=== PATIENT | female | born 1950 | race Caucasian/White ===

== ENCOUNTER → 2016-07-26 | Outpatient (CLI) | payer BC, MEDICARE ==
[~2016-07-26] MED LIST: ACET650T11 PO; ACET650T52 PO; BACL10TA PO; DIAZ-345 PO; DIAZ5TAB3 PO; Diazepam PO; ENAL20TA PO; HYDR-2890 PO; HYDR-3720 PO; HYDR-3816 PO; OXC20TCR PO; OXYC1TAB12 PO; SENN1TAB76 PO; SULF-222 PO
--- NOTE | 2016-07-26 12:12 | Diagnostic Imaging Report ---
PROCEDURE: MRI pelvis without contrast. TECHNIQUE: Multiplanar, multisequence MRI of the pelvis was performed without contrast. INDICATION: Chronic back pain. Bilateral hip pain. FINDINGS: There is signal abnormality seen around the upper aspect of the sacrum that appears to be artifactual secondary to susceptibility artifact from the lower lumbar spine posterior fusion metallic hardware. The lower aspect of the right SI joint demonstrates subchondral edema which could be degenerative or inflammatory. No insufficiency fracture is seen or mass. The marrow signal elsewhere in the pelvis appears unremarkable. No avascular necrosis or stress fractures. The hip joints demonstrate minimal effusion bilaterally. Mild edema along the anterior lateral aspect of the labrum is seen probably degenerative. The muscle bulk and signal around the pelvis appear unremarkable. There is normal signal in the origin of the hamstring muscles and the iliopsoas tendon insertion bilaterally. No evidence of iliopsoas or greater trochanteric bursitis. No significant free fluid or fluid collection in the abdomen and pelvis is seen. No soft tissue mass. Cystic foci in the cervix are likely related to nabothian cysts. The urinary bladder appears unremarkable. IMPRESSION: Relatively mild arthritic changes at the hip joints and the right SI joints. Dictated by: Dictated on workstation # [id number]
== END ==
LOC: RAD 09:15
PROVIDERS: ATTEND Family Medicine
DX: M16.0 Bilateral primary osteoarthritis of hip (principal)
CPT/HCPCS: 72195

== ENCOUNTER 2019-09-17 15:30 | Emergency (ER) | payer MEDICARE ==
[~2019-09-17] VITALS: Ht 162.5 cm; Wt 71.7 kg
--- NOTE | 2019-09-17 15:59 | ED General ---
General Chief Complaint: General Problems/Pain Stated Complaint: KIDNEY FAILURE Source of Information: Patient (CONNOR BARBER DO) History of Present Illness Date Seen by Provider: Sep 17, 2019 Time Seen by Provider: 15:35 Initial Comments PT ARRIVES VIA POV FROM HOME, NEEDS WHEELCHAIR AND ASSIST OUT OF THE VEHICLE PT STATES "I'M LETHARGIC" THIS IS A CHRONIC PROBLEM FOR AT LEAST A YEAR--STATES IT STARTED WHILE DR. SMALL WAS STILL IN PRACTICE AND HE RETIRED A YEAR AGO HAS BEEN SEEING LULA EDUARDO AT [facility] SINCE DR. SMALL RETIRED--HAS BEEN SEEING HIM SINCE MARCH OR APRIL STATES SHE HAS TROUBLE WITH BALANCE AND GENERALIZED WEAKNESS. AND HAD 6 WEEKS OF PHYSICAL THERAPY--GETTING WORSE STATES SHE SAW HIM YESTERDAY FOR ROUTINE FOLLOW UP AND HAD LAB DRAWN. STATES THEY CALLED HER TODAY AND TOLD HER TO COME HERE BECAUSE MY POTASSIUM AND RENAL FAILURE" --NO CALL TO ER FROM [facility] NONE OF HER SYMPTOMS ARE DIFFERENT TODAY IN ANY WAY, BUT STATES SHE JUST KEEPS GETTING WORSE, ESPECIALLY FOR THE LAST 2-3 MONTHS. PT HAS CHRONIC NAUSEA, BUT IS NOT NAUSEATED NOW. STATES HER ABDOMEN "IS ALWAYS TENDER" PT STATES SHE ALWAYS HAS "A LITTLE DIARRHEA" --HAD A "TRICKLE" OF DIARRHEA THIS MORNING NO FEVER NO COUGH NO CHEST PAIN STATES SHE IS ALWAYS SHORT OF BREATH, AND IS NO DIFFERENT TODAY HAS CHRONIC SINUS DRAINAGE AND IS NO DIFFERENT THAN NORMAL STATES SHE HAS HAD DECREASED TASTE FOR THE LAST COUPLE OF WEEKS STATES SHE IS VOIDING A NORMAL AMOUNT AND VOIDED JUST PRIOR TO ARRIVAL, AND NO PAIN ON URINATION. HAS BEEN EATING AND DRINKING BUT "NOT MUCH" --STATES "I'M TOO WEAK TO STAND AND GO GET ANYTHING" NO PARESTHESIAS OR MOTOR DEFICITS NO KNOWN SICK CONTACTS OR EXPOSURE TO COVID-19 PCP: [facility], LULA EDUARDO (CONNOR BARBER ) Allergies and Home Medications Allergies Coded Allergies: No Known Drug Allergies (Unverified , 12/11/13) Home Medications Acetaminophen 650 Mg Tablet, 1,300 MG PO AC, (Reported) TAKE 2 (650MG) TABS Acetaminophen 650 Mg Tablet, 2,600 MG PO HS, (Reported) TAKES 4 (650MG) TABLET Baclofen 10 Mg Tablet, 10 MG PO Q8H PRN for MUSCLE SPASMS, (Reported) Diazepam 5 Mg Tablet, 5 MG PO Q8H PRN for SPASMS, (Reported) Enalapril Maleate 20 Mg Tablet, 20 MG PO DAILY, (Reported) Hydrocodone Bit/Acetaminophen 1 Each Tablet, 1-2 TAB PO Q4H PRN for PAIN, (Reported) Senna 1 Ea Tablet, 1 EA PO DAILY Prescribed by: MOI SMALL on 07/08/14731 Trimethoprim/Sulfamethoxazole 1 Ea Tablet, 1 EA PO BID WITH MEALS Prescribed by: MOI SMALL on 07/08/14731 Patient Home Medication List Home Medication List Reviewed: Yes (JOHNNIE GRAHAM) Review of Systems Review of Systems Constitutional: see HPI; No chills, No diaphoresis, No dizziness, No fever; malaise, weakness EENTM: see HPI, other (CHRONIC SINUS DRAINAGE, AND DECREASED SENSE OF TASTE FOR A COUPLE OF WEEKS) Respiratory: see HPI; No cough; dyspnea on exertion (CHRONIC/UNCHANGED); No orthopnea, No phlegm; short of breath (CHRONIC/UNCHANGED); No wheezing Cardiovascular: no symptoms reported; No chest pain, No edema, No palpitations, No syncope, No vascular heart diseas Gastrointestinal: see HPI, abdominal pain, diarrhea, loss of appetite, nausea; No vomiting Genitourinary: see HPI; No decreased output, No dysuria, No pain Musculoskeletal: see HPI ("TROUBLE WITH BALANCE" ; CHRONIC NECK AND BACK PAIN --S/P C-SPINE & L-SPINE SURGERY) Skin: no symptoms reported Psychiatric/Neurological: No Symptoms Reported; Denies Headache, Denies Numbness, Denies Paresthesia, Denies Seizure, Denies Tingling, Denies Tremors Hematologic/Lymphatic: No Symptoms Reported Immunological/Allergic: no symptoms reported (CONNOR BARBER DO) Past Jzmfyzx-Kzowzt-Pzaomp Hx Past Med/Social Hx: Reviewed and Corrections made (CONNOR BARBER DO) Patient Social History Alcohol Use: Denies Use Recreational Drug Use: No Smoking Status: Former Smoker (< 1 PPD, QUIT 2007) Type Used: Cigarettes Recent Foreign Travel: No Contact w/Someone Who Travel: No (CONNOR BARBER DO) Immunizations Up To Date Tetanus Booster (TDap): Unknown PED Vaccines UTD: No (CONNOR BARBER DO) Seasonal Allergies Seasonal Allergies: Yes (CONNOR BARBER DO) Past Medical History Surgeries: Yes (SEE BELOW) Appendectomy, Breast, Orthopedic, Tonsillectomy Respiratory: Yes (CHRONIC DYSPNEA; FORMER SMOKER) Hypertension Neurological: No Reproductive Disorders: No 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 Genitourinary: Yes Bladder Infection Gastrointestinal: Yes (APPY; ) Musculoskeletal: Yes (C-SPINE AND L-SPINE SURGERIES;L KNEE SCOPE) Degenerate Disk Disease, Chronic Back Pain Endocrine: No HEENT: Yes (TONSILLECTOMY) Cataract, Tonsilitis Cancer: No Psychosocial: Yes Depression Integumentary: No Blood Disorders: No Adverse Reaction/Blood Tranf: No (CONNOR BARBER DO) Family Medical History BACK INJURY 19 MOTHER Cardiovascular disease 19 FATHER 19 MOTHER Chronic hepatitis Colon cancer G8 BROTHER Coronary thrombosis 19 FATHER 19 MOTHER Diabetes mellitus 19 MOTHER FH: lung cancer G8 BROTHER FH: lupus 19 FATHER Kidney disease 19 MOTHER (RENAL FAILURE ) Meningitis Myocardial infarction 19 FATHER 19 MOTHER PSH: -TONSILLECOMTY -APPENDECTOMY -1996--LEFT KNEE SCOPE -1997 BREAST AUGMENTATION + TUMMY TUCK/ABDOMINOPLASTY -2013--CERVICAL SPINE FUSION C3-C7 -2014--LUMBAR SPINE SURGERY/FUSION L3-L5 (CONNOR BARBER DO) Physical Exam Vital Signs Vital Signs - First Documented 09/17/19 15:32 Temp 36.6 Pulse 103 Resp 15 B/P (MAP) 125/73 (90) Pulse Ox 94 O2 Delivery Room Air (JOHNNIE GRAHAM) Vital Signs Capillary Refill : (CONNOR BARBER DO) Height, Weight, BMI Height: 5'7.00" Weight: 188lbs. 8.0oz. 85.561440rh; BMI Method: General Appearance: No Apparent Distress, WD/WN, Other (SOMEWHAT LETHARGIC, BUT TALKS AT GREAT LENGTH) HEENT: PERRL/EOMI, Pale Conjunctivae (L), Pale Conjunctivae (R) Neck: Normal Inspection Respiratory: Normal Breath Sounds, No Accessory Muscle Use, No Respiratory Distress Cardiovascular: Regular Rate, Rhythm, No Edema, No JVD, No Murmur, Normal Peripheral Pulses Gastrointestinal: Normal Bowel Sounds, No Organomegaly, No Pulsatile Mass, Non Tender, Soft Back: No CVA Tenderness Extremity: Normal Capillary Refill, Normal Range of Motion, Non Tender, No Calf Tenderness, No Pedal Edema Neurologic/Psychiatric: Alert, Oriented x3, No Motor/Sensory Deficits, feed manager II- XII Norm as Tested Skin: Warm/Dry, Pallor (YUAN,CONNOR K DO) Progress/Results/Core Measures Suspected Sepsis SIRS Temperature: Pulse: Respiratory Rate: Laboratory Tests 09/17/19 15:46: White Blood Count 10.8 Blood Pressure / Mean: Laboratory Tests 09/17/19 15:46: Creatinine 7.87H, INR Comment 1.3, Platelet Count 440H, Total Bilirubin 0.3 (YUANCONNOR K DO) Results/Orders Lab Results Laboratory Tests Test 09/17/19 15:46 09/17/19 15:50 09/17/19 17:00 Range/Units White Blood Count 10.8 4.3-11.0 10^3/uL Red Blood Count 3.43 L 4.35-5.85 10^6/uL Hemoglobin 10.3 L 11.5-16.0 G/DL Hematocrit 32 L 35-52 % Mean Corpuscular Volume 93 80-99 FL Mean Corpuscular Hemoglobin 30 25-34 PG Mean Corpuscular Hemoglobin Concent 32 32-36 G/DL Red Cell Distribution Width 12.9 10.0-14.5 % Platelet Count 440 H 130-400 10^3/uL Mean Platelet Volume 8.4 7.4-10.4 FL Neutrophils (%) (Auto) 79 H 42-75 % Lymphocytes (%) (Auto) 12 12-44 % Monocytes (%) (Auto) 8 0-12 % Eosinophils (%) (Auto) 1 0-10 % Basophils (%) (Auto) 0 0-10 % Neutrophils # (Auto) 8.6 H 1.8-7.8 X 10^3 Lymphocytes # (Auto) 1.3 1.0-4.0 X 10^3 Monocytes # (Auto) 0.9 0.0-1.0 X 10^3 Eosinophils # (Auto) 0.1 0.0-0.3 10^3/uL Basophils # (Auto) 0.0 0.0-0.1 10^3/uL Prothrombin Time 16.8 H 12.2-14.7 SEC INR Comment 1.3 0.8-1.4 Activated Partial Thromboplast Time 37 H 24-35 SEC Sodium Level 137 135-145 MMOL/L Potassium Level 6.1 H 3.6-5.0 MMOL/L Chloride Level 109 H 98-107 MMOL/L Carbon Dioxide Level 8 *L 21-32 MMOL/L Anion Gap 20 H 5-14 MMOL/L Blood Urea Nitrogen 107 *H 7-18 MG/DL Creatinine 7.87 H 0.60-1.30 MG/DL Estimat Glomerular Filtration Rate 5 BUN/Creatinine Ratio 14 Glucose Level 94 70-105 MG/DL Calcium Level 10.4 H 8.5-10.1 MG/DL Corrected Calcium 10.4 H 8.5-10.1 MG/DL Phosphorus Level 6.7 H 2.3-4.7 MG/DL Magnesium Level 2.4 1.6-2.4 MG/DL Total Bilirubin 0.3 0.1-1.0 MG/DL Aspartate Amino Transf (AST/SGOT) 16 5-34 U/L Alanine Aminotransferase (ALT/SGPT) 18 0-55 U/L Alkaline Phosphatase 157 H 40-136 U/L Total Protein 7.5 6.4-8.2 GM/DL Albumin 4.0 3.2-4.5 GM/DL TSH [place] Testing 3.08 0.35-4.94 UIU/ML Urine Color YELLOW Urine Clarity TURBID Urine pH 5.5 5-9 Urine Specific [place] 1.020 1.016-1.022 Urine Protein TRACE H NEGATIVE Urine Glucose (UA) NEGATIVE NEGATIVE Urine Ketones NEGATIVE NEGATIVE Urine Nitrite NEGATIVE NEGATIVE Urine Bilirubin NEGATIVE NEGATIVE Urine Urobilinogen 0.2 < = 1.0 MG/DL Urine Leukocyte Esterase TRACE H NEGATIVE Urine RBC (Auto) 1+ H NEGATIVE Urine RBC RARE /HPF Urine WBC RARE /HPF Urine Squamous Epithelial Cells 2-5 /HPF Urine Renal Epithelial Cells 2-5 /HPF Urine Crystals NONE /LPF Urine Amorphous Sediment MOD PAVAN URATES H /LPF Urine Bacteria TRACE /HPF Urine Casts NONE /LPF Urine Mucus NEGATIVE /LPF Urine Culture Indicated NO Blood Gas Puncture Site RR Blood Gas Patient Temperature 36.6 Arterial Blood pH 7.19 *L 7.37-7.43 Arterial Blood Partial Pressure CO2 30 L 35-45 MMHG Arterial Blood Partial Pressure O2 204 H 79-93 MMHG Arterial Blood HCO3 11 *L 23-27 MMOL/L Arterial Blood Total CO2 12.0 L 21.0-31.0 MMOL/L Arterial Blood Oxygen Saturation 99 94-100 % Arterial Blood Base Excess -15.6 L -2.5-2.5 MMOL/L Marv Test YES-POS Blood Gas Ventilator Setting NO Blood Gas Inspired Oxygen 8L (JOHNNIE GRAHAM) Medications Given in ED Current Medications Medications Dose Ordered Sig/Haritha Route Start Time Stop Time Status Last Admin Dose Admin Calcium Chloride 1 gm ONCE ONCE INJ 09/17/19 16:45 09/17/19 16:47 DC 09/17/19 17:11 1 GM Dextrose 50 ml ONCE ONCE IV 09/17/19 16:45 09/17/19 16:47 DC 09/17/19 16:55 50 ML Insulin Human Regular 10 unit ONCE ONCE IV 09/17/19 16:45 09/17/19 16:47 DC 09/17/19 16:55 10 UNIT Sodium Polystyrene Sulfonate 15 gm ONCE ONCE PO 09/17/19 16:45 09/17/19 16:47 DC 09/17/19 16:56 15 GM Sodium Bicarbonate 50 meq ONCE ONCE IV 09/17/19 17:45 09/17/19 17:46 DC 09/17/19 17:46 50 MEQ (JOHNNIE GRAHAM) Vital Signs/I&O 09/17/19 09/17/19 09/17/19 09/17/19 15:32 17:11 20:44 21:34 Temp 36.6 Pulse 103 108 98 Resp 15 18 16 B/P (MAP) 125/73 (90) 112/62 (79) 112/62 Pulse Ox 94 100 97 99 O2 Delivery Room Air Room Air Room Air Room Air (JOHNNIE GRAHAM) Vital Signs/I&O Capillary Refill : (CONNOR BARBER DO) Progress Note : Time: 18:00 Progress Note Assume care of the patient at shift change. Plan is transfer to [facility]. If she still here by 2044 we will repeat labs as it'll be 4 hours after our initial draw and interventions. (JOHNNIE GRAHAM) ECG Initial ECG Impression Date: Sep 17, 2019 Initial ECG Impression Time: 16:03 Initial ECG Rate: 91 Initial ECG Rhythm: Normal Sinus (CONNOR BARBER DO) Diagnostic Imaging Comments CXR--PER RADIOLOGIST REPORT AT 1715 MPRESSION: Mild chronic appearing increased interstitial markings. No acute consolidation or pleural fluid. Reviewed: Reviewed by Me (CONNOR BARBER DO) Departure Communication (Admissions) 1640--SPOKE WITH DR. GOEL AT [facility]. SHE ADVISES TO TRANSFER TO FACILITY WITH NEPHROLOGY/ DIALYSIS CAPABILITIES. SHE REPORTS THAT THE ONLY TIME SHE HAS HAD LAB DONE BEFORE YESTERDAY, WAS IN MAY AND CREATININE WAS 1.24 AT THAT TIME. 1644--CALLED CYNDIE, MESSAGE LEFT. 1648--CALLED CARROLL RAMIREZ. ON DIVERSION 1654--CYNDIE CALLED BACK. ON DIVERSION 1707--CALLED KEMI, WILL CALL BACK . 1749--KEMI CALLED BACK. PT HAS BEEN ACCEPTED BY DR. RICARDO FAYE (CONNOR BARBER DO) Impression Primary Impression: Renal failure Additional Impressions: Hyperkalemia Anemia Disposition: 02 XFER SHT-TRM HOSP Condition: Stable Transfer Transfer Reason: Exceeds level of care Transfer Facility: Method of Transfer: EMS (CONNOR BARBER DO) Transfer Reason: Exceeds level of care Time Spoke to Accepting Phy: 19:[address] Barber spoke to [facility] and got accepting physician. Transfer Time: 21:40 Method of Transfer: EMS (JOHNNIE GRAHAM) Departure-Patient Inst. Referrals: [facility] (PCP) Primary Care Physician BECKY EDUARDO (Family) Primary Care Physician CONNOR BARBER DO Sep 17, 2019 15:59 JOHNNIE GRAHAM Sep 17, 2019 18:53
[2019-09-17 16:02] LABS: BASOPHILS % (AUTO) 0 % (0-10); EOSINOPHILS # (AUTO) 0.1 10^3/uL (0.0-0.3); EOSINOPHILS % (AUTO) 1 % (0-10); HEMATOCRIT 32 % (35-52); HEMOGLOBIN 10.3 G/DL (11.5-16.0); LYMPHOCYTES # (AUTO) 1.3 X 10^3 (1.0-4.0); LYMPHOCYTES % (AUTO) 12 % (12-44); MEAN CORPUSCULAR HEMOGLOBIN 30 PG (25-34); MEAN CORPUSCULAR HGB CONC 32 G/DL (32-36); MEAN CORPUSCULAR VOLUME 93 FL (80-99); MEAN PLATELET VOLUME 8.4 FL (7.4-10.4); MONOCYTES # (AUTO) 0.9 X 10^3 (0.0-1.0); MONOCYTES % (AUTO) 8 % (0-12); NEUTROPHILS # (AUTO) 8.6 X 10^3 (1.8-7.8); NEUTROPHILS % (AUTO) 79 % (42-75); PLATELET COUNT 440 10^3/uL (130-400); RED CELL DISTRIBUTION WIDTH 12.9 % (10.0-14.5); WHITE BLOOD COUNT 10.8 10^3/uL (4.3-11.0)
[2019-09-17 16:07] LABS: BILIRUBIN,URINE NEGATIVE (NEGATIVE); CLARITY,URINE TURBID; COLOR,URINE YELLOW; GLUCOSE, URINE (UA) NEGATIVE (NEGATIVE); KETONES,URINE NEGATIVE (NEGATIVE); LEUKOCYTE ESTERASE ,URINE TRACE (NEGATIVE); NITRITE,URINE NEGATIVE (NEGATIVE); PH,URINE 5.5 (5-9); PROTEIN,URINE TRACE (NEGATIVE)
[2019-09-17 16:08] LABS: POTASSIUM 6.1 MMOL/L (3.6-5.0)
[2019-09-17 16:09] LABS: INR 1.3 (0.8-1.4); PROTHROMBIN TIME PATIENT 16.8 SEC (12.2-14.7)
[2019-09-17 16:10] LABS: CALCIUM 10.4 MG/DL (8.5-10.1)
[2019-09-17 16:11] LABS: TOTAL PROTEIN 7.5 GM/DL (6.4-8.2)
[2019-09-17 16:13] LABS: BILIRUBIN,TOTAL 0.3 MG/DL (0.1-1.0)
[2019-09-17 16:14] LABS: CREATININE SERUM 7.87 MG/DL (0.60-1.30)
[2019-09-17 16:17] LABS: MAGNESIUM 2.4 MG/DL (1.6-2.4)
[2019-09-17 16:23] LABS: AMORPHOUS SEDIMENT,UR MOD AMOR URATES /LPF; BACTERIA,URINE TRACE /HPF; RBC,URINE RARE /HPF; WBC,URINE RARE /HPF
[2019-09-17 16:37] LABS: TSH (THYROID ANALYZER) 3.08 UIU/ML (0.35-4.94)
[2019-09-17] MEDS ORDERED: RT-ALBUTEROL SULF 2.5 MG/3 ML PRE-MIX VIAL INH STA (16:41)
[2019-09-17] MEDS ORDERED: NS IV 1000 ML 1,000 ML IV SCH (16:41)
[2019-09-17] MEDS ORDERED: CALCIUM CHLORIDE 1 GM/10 ML (IMS) SYR INJ ONE (16:45)
[2019-09-17] MEDS ORDERED: SOD POLYSTERENE 15 GM/60 ML (KAYEXALATE) UNIT DOSE PO ONE (16:45)
[2019-09-17] MEDS ORDERED: DEXTROSE 50% 50 ML (IMS) SYR IV ONE (16:45)
[2019-09-17] MEDS ORDERED: inSUlin (REGULAR) HUMAN 1 UNIT/0.01 ML (CHARGE PER UNIT) IV ONE (16:45)
--- NOTE | 2019-09-17 16:46 | Diagnostic Imaging Report ---
INDICATION: Lethargy and shortness of breath. TECHNIQUE/COMPARISON: A frontal chest was obtained at 4:27 PM. There is no prior study for comparison. FINDINGS: The heart is normal in size. The mediastinal silhouette is unremarkable. There are mild chronic appearing increased interstitial markings. There is no definite consolidation, pneumothorax, or pleural fluid. IMPRESSION: Mild chronic appearing increased interstitial markings. No acute consolidation or pleural fluid. Dictated by: Dictated on workstation # [id number]
[2019-09-17 17:00] LABS: PHOSPHORUS 6.7 MG/DL (2.3-4.7)
[2019-09-17 17:02] LABS: MAGNESIUM 2.4 MG/DL (1.6-2.4)
[2019-09-17 17:25] LABS: ABG BASE EXCESS -15.6 MMOL/L (-2.5-2.5); ABG OXYGEN SATURATION 99 % (94-100); ABG PCO2 30 MMHG (35-45); ABG PO2 204 MMHG (79-93); ALLENS TEST YES-POS; INSPIRED O2 8L; VENTILATOR NO
[2019-09-17 17:26] LABS: ABG PH 7.19 (7.37-7.43); PATIENT TEMP 36.6
[2019-09-17] MEDS ORDERED: SODIUM BICARB 8.4% 50 MEQ/50 ML VIAL IV ONE (17:45)
[2019-09-17 20:44] VITALS: BP 112/62
--- OUTSIDE RECORDS SUMMARY | 2019-09-17 20:54 | XMS REPORT | Continuity of Care Document ---
Author Organization Unknown Address Unknown Phone Unavailable Allergies Active Description Code Type Severity Reaction Onset Reported/Identified Relationship to Patient Clinical Status Yes No Known Drug Allergies [id number] Drug Allergy Unknown N/A 12/11/2013 Medications There is no data. Problems Date Dx Coded Attending Type Code Diagnosis Diagnosed By 12/26/2013 SERGIO STOREY MD Ot 401.9 HYPERTENSION NOS 12/26/2013 SERGIO STOREY MD Ot 721.1 CERV SPONDYL W MYELOPATH 12/26/2013 SERGIO STOREY MD Ot 724.0 2 SPINAL STENOSIS, LUMBAR REG, W/OUT NEURO 02/25/2014 SERGIO STOREY MD Ot 724.0 2 02/25/2014 SERGIO STOREY MD Ot V72.6 3 02/25/2014 SERGIO STOREY MD Ot V74.8 06/11/2014 SERGIO STOREY MD Ot 724.0 3 06/11/2014 SERGIO STOREY MD Ot 724.4 06/11/2014 SERGIO STOREY MD Ot 738.4 06/12/2014 SERGIO STOREY MD Ot 724.0 3 06/12/2014 SERGIO STOREY MD Ot 724.4 06/12/2014 SERGIO STOREY MD Ot 738.4 06/13/2014 Ot 724.02 06/13/2014 Ot V72.63 06/13/2014 Ot V74.8 06/14/2014 SERGIO STOREY MD Ot 724.0 3 SPINAL STENOSIS, LUMBAR REGION, W NEUROG 06/14/2014 SERGIO STOREY MD Ot 724.4 LUMBOSACRAL NEURITIS NOS 06/14/2014 SERGIO STOREY MD Ot 738.4 ACQ SPONDYLOLISTHESIS 07/08/2014 REBECCA SMALL MD Ot 041. 3 KLEBSIELLA PNEUMONIAE 07/08/2014 SEGLIE MD, REBECCA R Ot 041. 49 OTHER AND UNSPECIFIED ESCHERICHIA COLI [ 07/08/2014 GEOVANNY WINCHESTER, REBECCA R Ot 338. 18 OTHER ACUTE POSTOPERATIVE PAIN 07/08/2014 GEOVANNY WINCHESTER, REBECCA R Ot 401. 9 HYPERTENSION NOS 07/08/2014 GEOVANNY WINCHESTER, REBECCA R Ot 599. 0 URIN TRACT INFECTION NOS 07/08/2014 GEOVANNY WINCHESTER, REBECCA R Ot 719. 45 JOINT PAIN-PELVIS 07/08/2014 REBECCA SMALL MD R Ot 724. 2 LUMBAGO 07/08/2014 GEOVANNY WINCHESTER, REBECCA R Ot 787. 02 NAUSEA ALONE 07/08/2014 REBECCA SMALL MD R Ot V58. 69 OT MED,LT,CURRENT USE 07/10/2014 REBECCA SMALL MD R Ot 041. 3 07/10/2014 REBECCA SMALL MD R Ot 041. 49 07/10/2014 GEOVANNY WINCHESTER REBECCA R Ot 338. 18 07/10/2014 REBECCA SMALL MD R Ot 401. 9 07/10/2014 REBECCA SMALL MD R Ot 599. 0 07/10/2014 REBECCA SMALL MD R Ot 719. 45 07/10/2014 REBECCA SMALL MD R Ot 724. 2 07/10/2014 REBECCA SMALL MD R Ot 787. 02 07/10/2014 REBECCA SMALL MD R Ot V58. 69 07/26/2016 REBECCA SMALL MD R Ot 724. 02 SPINAL STENOSIS, LUMBAR REG, W/OUT NEURO 07/26/2016 SERGIO STOREY MD Ot 723.0 CERVICAL SPINAL STENOSIS 07/26/2016 SERGIO STOREY MD Ot V72.6 3 PRE-PROCEDURAL LABORATORY EXAMINATION 07/26/2016 SERGIO STOREY MD Ot V72.8 1 UTMY-XLS-KDITKICPE CARDIOVASCULAR 07/26/2016 SERGIO STOREY MD Ot V74.8 SCREEN-BACTERIAL DIS NEC 07/26/2016 SERGIO STOREY MD Ot 724.0 2 SPINAL STENOSIS, LUMBAR REG, W/OUT NEURO 07/26/2016 SERGIO STOREY MD Ot V72.6 3 PRE-PROCEDURAL LABORATORY EXAMINATION 07/26/2016 SERGIO STOREY MD Ot V74.8 SCREEN-BACTERIAL DIS NEC 07/26/2016 Ot 724.02 SPI NAL STENOSIS, LUMBAR REG, W/OUT NEURO 07/26/2016 Ot V72.63 PRE -PROCEDURAL LABORATORY EXAMINATION 07/26/2016 Ot V74.8 SCRE EN-BACTERIAL DIS NEC 07/27/2016 REBECCA SMALL MD, Ot M16. 0 BILATERAL PRIMARY OSTEOARTHRITIS OF HIP 08/05/2016 REBECCA SMALL MD, Ot M16. 0 BILATERAL PRIMARY OSTEOARTHRITIS OF HIP 11/09/2017 REBECCA SMALL MD, Ot K57. 30 DVRTCLOS OF LG INT W/O PERFORATION OR AB 11/09/2017 REBECCA SMALL MD Ot K82. 8 OTHER SPECIFIED DISEASES OF GALLBLADDER 11/09/2017 REBECCA SMALL MD Ot R63. 4 ABNORMAL WEIGHT LOSS 11/20/2017 REBECCA SMALL MD, Ot K57. 30 DVRTCLOS OF LG INT W/O PERFORATION OR AB 11/20/2017 REBECCA SMALL MD Ot K82. 8 OTHER SPECIFIED DISEASES OF GALLBLADDER 11/20/2017 REBECCA SMALL MD Ot R63. 4 ABNORMAL WEIGHT LOSS Procedures Code Description Performed By Per formed On 77.79 EXCI SE BONE FOR GFT NEC 12/23/2013 81.03 OTH CERVICAL FUSION OF POSTERIOR COLUMN, 12/23/2013 81.63 FUSI ON/REFUS OF 4-8 VERTEBRAE 12/23/2013 77.79 EXCI SE BONE FOR GFT NEC 06/09/2014 81.08 LUMB AR LUMBOSACRAL FUSION OF ANTERIOR 06/09/2014 81.62 FUSI ON/REFUS OF 2-3 VERTEBRAE 06/09/2014 84.51 INSE RTION OF INTERBODY SPINAL FUSION DEV 06/09/2014 84.52 INSE RTION OF RECOMBINANT BONE MORPHOGENE 06/09/2014 Results Test Result Range TSH w/ FREE T4 - 05/13/19 08:44 TSH 4.32 mIU/L 0.40-4.50 T4, FREE 1.2 ng/dL 0.8-1.8 LIPID PANEL - 05/13/19 08:44 CHOLESTEROL, TOTAL 217 mg/dL <200 HDL CHOLESTEROL 38 mg/dL > OR = 50 TRIGLYCERIDES 148 mg/dL <150 LDL-CHOLESTEROL 152 mg/dL (calc) NRG CHOL/HDLC RATIO 5.7 (calc) <5.0 NON HDL CHOLESTEROL 179 mg/dL (calc) <13 0 CMP - 05/13/19 08:44 GLUCOSE 116 mg/dL 65-99 UREA NITROGEN (BUN) 24 mg/dL 7-25 CREATININE 1.24 mg/dL 0.50-0.99 eGFR NON-AFR. CITIZEN OF [place] 45 mL/min/1.73m2 > OR = 60 eGFR 52 mL/min/1.73m2 > OR = 60 BUN/CREATININE RATIO 19 (calc) 6-22 SODIUM 141 mmol/L 135-146 POTASSIUM 4.4 mmol/L 3.5-5.3 CHLORIDE 104 mmol/L 98-110 CARBON DIOXIDE 29 mmol/L 20-32 CALCIUM 9.2 mg/dL 8.6-10.4 PROTEIN, TOTAL 6.8 g/dL 6.1-8.1 ALBUMIN 4.1 g/dL 3.6-5.1 GLOBULIN 2.7 g/dL (calc) 1.9-3.7 ALBUMIN/GLOBULIN RATIO 1.5 (calc) 1.0-2. 5 BILIRUBIN, TOTAL 0.3 mg/dL 0.2-1.2 ALKALINE PHOSPHATASE 67 U/L 37-153 AST 15 U/L 10-35 ALT 10 U/L 6-29 CBC - 05/13/19 08:44 WHITE BLOOD CELL COUNT 6.1 Thousand/uL 3 .8-10.8 RED BLOOD CELL COUNT 4.29 Million/uL 3.8 0-5.10 HEMOGLOBIN 13.3 g/dL 11.7-15.5 HEMATOCRIT 40.6 % 35.0-45.0 MCV 94.6 fL 80.0-100.0 MCH 31.0 pg 27.0-33.0 MCHC 32.8 g/dL 32.0-36.0 RDW 12.8 % 11.0-15.0 PLATELET COUNT 244 Thousand/uL 140-400 MPV 9.4 fL 7.5-12.5 ABSOLUTE NEUTROPHILS 3331 cells/uL 1500- 7800 ABSOLUTE LYMPHOCYTES 1867 cells/uL 850-3 900 ABSOLUTE MONOCYTES 598 cells/uL 200-950 ABSOLUTE EOSINOPHILS 214 cells/uL 15-500 ABSOLUTE BASOPHILS 92 cells/uL 0-200 NEUTROPHILS 54.6 % NRG LYMPHOCYTES 30.6 % NRG MONOCYTES 9.8 % NRG EOSINOPHILS 3.5 % NRG BASOPHILS 1.5 % NRG Complete blood count (CBC) with automate d white blood cell (WBC) differential - 09/17/19 15:46 Blood leukocytes automated count (number/volume) 10.8 10*3/uL 4.3-11.0 Blood erythrocytes automated count (number/volume) 3.43 10*6/uL 4.35-5.85 Venous blood hemoglobin measurement (mass/volume) 10.3 g/dL 11.5-16.0 Blood hematocrit (volume fraction) 32 % 35-52 Automated erythrocyte mean corpuscular volume 93 [ foz_us] 80-99 Automated erythrocyte mean corpuscular h emoglobin (mass per erythrocyte) 30 pg 25-34 Automated erythrocyte mean corpuscular h emoglobin concentration measurement (mass/volume) 32 g/dL 32-36 Automated erythrocyte distribution width ratio 12. 9 % 10.0- 14.5 Automated blood platelet count (count/volume) 440 10*3/uL 130-400 Automated blood platelet mean volume measurement 8.4 [foz_us] 7.4-10.4 Automated blood neutrophils/100 leukocytes 79 % 42-75 Automated blood lymphocytes/100 leukocytes 12 % 12-44 Blood monocytes/100 leukocytes 8 % 0-12 Automated blood eosinophils/100 leukocytes 1 % 0-10 Automated blood basophils/100 leukocytes 0 % 0-10 Blood neutrophils automated count (number/volume) 8.6 10*3 1.8-7.8 Blood lymphocytes automated count (number/volume) 1.3 10*3 1.0-4.0 Blood monocytes automated count (number/volume) 0. 9 10*3 0.0-1.0 Automated eosinophil count 0.1 10*3/uL 0 .0-0.3 Automated blood basophil count (count/volume) 0.0 10*3/uL 0.0-0.1 Comprehensive metabolic panel - 09/17/19 15:46 Serum or plasma sodium measurement (moles/volume) 137 mmol/L 135-145 Serum or plasma potassium measurement (moles/volume) 6.1 mmol/L 3.6-5.0 Serum or plasma chloride measurement (moles/volume) 109 mmol/L 98-107 Carbon dioxide 8 mmol/L 21-32 Serum or plasma anion gap determination (moles/volume) 20 mmol/L 5-14 Serum or plasma urea nitrogen measurement (mass/volume ) 107 mg/dL 7-18 Serum or plasma creatinine measurement (mass/volume) 7.87 mg/dL 0.60-1.30 Serum or plasma urea nitrogen/creatinine mass ratio 14 NRG Serum or plasma creatinine measurement w ith calculation of estimated glomerular filtration rate 5 NRG Serum or plasma glucose measurement (mass/volume) 94 mg/dL 70-105 Serum or plasma calcium measurement (mass/volume) 10.4 mg/dL 8.5-10.1 Serum or plasma total bilirubin measurement (mass/volu me) 0.3 mg/dL 0.1-1.0 Serum or plasma alkaline phosphatase prince surement (enzymatic activity/volume) 157 U/L 40-136 Serum or plasma aspartate aminotransfera se measurement (enzymatic activity/volume) 16 U/L 5-34 Serum or plasma alanine aminotransferase measurement (enzymatic activity/volume) 18 U/L 0-55 Serum or plasma protein measurement (mass/volume) 7.5 g/dL 6.4-8.2 Serum or plasma albumin measurement (mass/volume) 4.0 g/dL 3.2-4.5 CALCIUM CORRECTED 10.4 mg/dL 8.5-10.1 PT panel in platelet poor plasma by coag ulation assay - 09/17/19 15:46 Prothrombin time (PT) in platelet poor plasma by coagu lation assay 16.8 s 12.2-14.7 INR in platelet poor plasma or blood by coagulation as say 1.3 0.8-1.4 Activated partial thromboplastin time (a PTT) in platelet poor plasma bycoagulation assay - 09/17/19 15:46 Activated partial thromboplastin time (a PTT) in platelet poor plasma bycoagulation assay 37 s 24-35 Magnesium - 09/17/19 15:46 Magnesium 2.4 mg/dL 1.6-2.4 Serum or plasma thyrotropin measurement by detection limit <=0.05 miu/l (units/volume) - 09/17/19 15:46 Serum or plasma thyrotropin measurement by detection limit <=0.05 miu/l (units/volume) 3.08 u[iU]/mL 0.35-4.94 Serum or plasma phosphate measurement (m ass/volume) - 09/17/19 15:46 Serum or plasma phosphate measurement (mass/volume) 6.7 mg/dL 2.3-4.7 Magnesium - 09/17/19 15:46 Magnesium 2.4 mg/dL 1.6-2.4 Complete urinalysis with reflex to cultu re - 09/17/19 15:50 Urine color determination YELLOW NRG Urine clarity determination TURBID NR G Urine pH measurement by test strip 5.5 5-9 Specific gravity of urine by test strip 1.020 1.016-1.022 Urine protein assay by test strip, semi-quantitative TRACE NEGATIVE Urine glucose detection by automated test strip NE GATIVE NEGATIVE Erythrocytes detection in urine sediment by light micr oscopy 1+ NEGATIVE Urine ketones detection by automated test strip NE GATIVE NEGATIVE Urine nitrite detection by test strip NEGATIVE NEGATIVE Urine total bilirubin detection by test strip NEGA TIVE NEGATIVE Urine urobilinogen measurement by automated test strip (mass/volume) 0.2 mg/dL < = 1.0 Urine leukocyte esterase detection by dipstick TRA CE NEGATIVE Automated urine sediment erythrocyte cou nt by microscopy (number/high power field) RARE NRG Automated urine sediment leukocyte count by microscopy (number/high power field) RARE NRG Bacteria detection in urine sediment by light microsco py TRACE NRG Squamous epithelial cells detection in u rine sediment by light microscopy 2-5 NRG Crystals detection in urine sediment by light microsco py NONE NRG Casts detection in urine sediment by light microscopy NONE NRG Mucus detection in urine sediment by light microscopy NEGATIVE NRG Complete urinalysis with reflex to culture NO NRG Amorphous sediment detection in urine sediment by ligh t microscopy MOD PAVAN URATES NRG Renal epithelial cells detection in urin e sediment by light microscopy 2-5 NRG Arterial blood gas measurement - 0 17:00 Blood pCO2 30 mm[Hg] 35-45 Blood pO2 204 mm[Hg] 79-93 Arterial blood bicarbonate measurement (moles/volume) 11 mmol/L 23-27 Arterial blood base excess by calculation -15.6 mm ol/L -2.5-2.5 Arterial blood oxygen saturation measurement 99 % 94-100 * Inhaled oxygen flow rate 8L NRG Arterial blood pH measurement with patient temperature correction 7.19 7.37-7.43 Arterial blood carbon dioxide, total measurement (mole s/volume) 12.0 mmol/L 21.0-31.0 Body site RR NRG Assessment of wrist artery patency prior to arterial p uncture YES-POS NRG Setting of ventilation mode NO NR G Measurement of body temperature 36.6 NRG Encounters ACCT No. Visit Date/Time Discharge Status Pt. Type Provider Facility Loc./Unit Complaint [id number] 09/16/2019 12:20:00 ACT Outpatient BECKY EDUARDO [facility] [id number] 05/13/2019 08:40:00 Document Registration [id number] 11/08/2017 13:02:00 018 23:59:59 CLS Outpatient REBECCA SMALL MD [facility] RAD ABN WEIGHT LOSS [id number] 07/26/2016 09:15:00 017 23:59:59 CLS Outpatient REBECCA SMALL MD [facility] RAD R10.2 [id number] 07/04/2014 10:57:00 015 10:05:00 DIS Inpatient REBECCA SMALL MD [facility] SURGICAL PAIN CONTROL, SLURRED S PEECH, ORAL MED [id number] 06/09/2014 09:51:00 015 13:30:00 DIS Inpatient SERGIO STOREY MD [facility] SURGICAL STENOSIS [id number] 02/17/2014 08:00:00 014 23:59:59 CLS Preadmit SERGIO STOREY MD LUMBAR STENOSIS [id number] 02/03/2014 08:15:00 014 23:59:59 CLS Outpatient SERGIO STOREY MD [facility] PREOP LUMBAR STENOSIS [id number] 12/23/2013 06:21:00 014 14:30:00 DIS Inpatient SERGIO STOREY MD [facility] SURGICAL CERVICAL STENOSIS [id number] 12/10/2013 08:21:00 014 23:59:59 CLS Outpatient SERGIO STOREY MD [facility] PREOP CERVICAL STENOSIS [id number] 11/12/2013 07:52:00 014 23:59:59 CLS Outpatient REBECCA SMALL MD [facility] RAD BILATERAL RADICULOPATHY [id number] 09/17/2019 16:06:00 Document Registration [id number] 05/28/2014 10:24:00 Document Registration
[2019-09-17 21:34] VITALS: BP 112/62
== END 2019-09-17 21:34 | disposition short-term general hospital (02) ==
LOC: EDUNIT# 15:30 → ER 15:31
DX: N19 Unspecified kidney failure (principal); E87.5 Hyperkalemia; D64.9 Anemia, unspecified; G89.29 Other chronic pain; M54.9 Dorsalgia, unspecified; I10 Essential (primary) hypertension; F32.9 Major depressive disorder, single episode, unspecified; Z82.49 Family history of ischemic heart disease and other diseases of the circulatory system; Z79.891 Long term (current) use of opiate analgesic; Z87.891 Personal history of nicotine dependence; Z80.1 Family history of malignant neoplasm of trachea, bronchus and lung; Z80.0 Family history of malignant neoplasm of digestive organs
CPT/HCPCS: 36415; 71045; 80053; 81000; 82805; 83735; 84100; 84443; 85025; 85610; 85730; 93005; 93041; 94640

== ENCOUNTER 2019-10-16 12:00 | Emergency (ER) | payer MEDICARE ==
[2019-10-16] VITALS (9 sets, daily range): BP systolic 98–114; BP diastolic 47–58
[~2019-10-16] VITALS: Ht 162 cm; Wt 81.6 kg
--- NOTE | 2019-10-16 12:22 | ED General ---
General Stated Complaint: CATH/SYNCOPE Source of Information: Patient Exam Limitations: Physical Impairments (MARIETTA LUNA MED STUDENT) History of Present Illness Date Seen by Provider: Oct 16, 2019 Time Seen by Provider: 12:00 Initial Comments Sg Tim is a 69 year old female seen today due to a syncopal event, she experienced dizziness when she stood up prior to fainting after having her mckeon catheter placed for 24 hour urine collection, denies confusion upon regaining consciousness. She was found to have low blood pressures, 87/47 in the ER. She returned from 5 days ago after 30 day stay in which she was diagnosed with lymphoma and kidney failure, and received one dose of chemotherapy as well as dialysis on Monday, , and Monday. Reports having diffuse abdominal pain since her syncopal event. She reports having shortness of breath, O2 sats in the ER around 92-94. Reports she tested negative for COVID at . She sees Dr. Zhong, oncology, and Dr. Jefferson at [facility] for primary care. Denies having any fevers, chills, cough, n/v. Severity: Mild (MARIETTA LUNA MED STUDENT) Initial Comments Mckeon catheter was initiated for 24-hour urine collection. She follows with Dr. Hernandez, oncology and Dr. Jefferson at [facility] for primary care. No history of diabetes. No fevers chills cough shortness of breath. She was initiated on 2 L because of low oxygen sats without subjective findings. Hemodialysis is Monday, and Monday. (JOHNNIE GRAHAM) Allergies and Home Medications Allergies Coded Allergies: No Known Drug Allergies (Unverified , 12/11/13) Home Medications Acetaminophen 650 Mg Tablet, 1,300 MG PO AC, (Reported) TAKE 2 (650MG) TABS Acetaminophen 650 Mg Tablet, 2,600 MG PO HS, (Reported) TAKES 4 (650MG) TABLET Baclofen 10 Mg Tablet, 10 MG PO Q8H PRN for MUSCLE SPASMS, (Reported) Diazepam 5 Mg Tablet, 5 MG PO Q8H PRN for SPASMS, (Reported) Enalapril Maleate 20 Mg Tablet, 20 MG PO DAILY, (Reported) Hydrocodone Bit/Acetaminophen 1 Each Tablet, 1-2 TAB PO Q4H PRN for PAIN, (Reported) Senna 1 Ea Tablet, 1 EA PO DAILY Prescribed by: MOI SMALL on 07/08/14731 Trimethoprim/Sulfamethoxazole 1 Ea Tablet, 1 EA PO BID WITH MEALS Prescribed by: MOI SMALL on 07/08/14731 Patient Home Medication List Home Medication List Reviewed: Yes (JOHNNIE GRAHAM) Review of Systems Review of Systems Constitutional: No chills; dizziness; No fever EENTM: mouth pain, throat pain; No nose congestion Respiratory: No cough; short of breath Cardiovascular: No chest pain, No edema, No palpitations; syncope Gastrointestinal: abdominal pain (diffuse); No constipation, No diarrhea, No nausea, No vomiting Genitourinary: No pain; other (mckeon catheter placed) (MARIETTA LUNA) All Other Systems Reviewed Negative Unless Noted: Yes (JOHNNIE GRAHAM) Past Mwueizj-Roavex-Agfvow Hx Patient Social History Type Used: Cigarettes 2nd Hand Smoke Exposure: No Recent Hopitalizations: No (MARIETTA LUNA) Alcohol Use: Denies Use Recreational Drug Use: No Smoking Status: Never a Smoker (JOHNNIE GRAHAM) Immunizations Up To Date Tetanus Booster (TDap): Unknown PED Vaccines UTD: No (MARIETTA LUNA) Seasonal Allergies Seasonal Allergies: Yes (MARIETTA LUNA) Past Medical History Surgeries: Yes (SEE BELOW) Appendectomy, Breast, Orthopedic, Tonsillectomy Respiratory: Yes (CHRONIC DYSPNEA; FORMER SMOKER) Cardiac: No Hypertension Neurological: No Reproductive Disorders: No DOG RAISER History: Menopausal Genitourinary: Yes Bladder Infection Gastrointestinal: Yes (APPY; ) Musculoskeletal: Yes (C-SPINE AND L-SPINE SURGERIES;L KNEE SCOPE) Degenerate Disk Disease, Chronic Back Pain Endocrine: No HEENT: Yes (TONSILLECTOMY) Cataract, Tonsilitis Cancer: No Psychosocial: Yes Depression Integumentary: No Blood Disorders: No Adverse Reaction/Blood Tranf: No (MARIETTA LUNA STUDENT) Family Medical History BACK INJURY 19 MOTHER Cardiovascular disease 19 FATHER 19 MOTHER Chronic hepatitis Colon cancer G8 BROTHER Coronary thrombosis 19 FATHER 19 MOTHER Diabetes mellitus 19 MOTHER FH: lung cancer G8 BROTHER FH: lupus 19 FATHER Kidney disease 19 MOTHER (RENAL FAILURE ) Meningitis Myocardial infarction 19 FATHER 19 MOTHER PSH: -TONSILLECOMTY -APPENDECTOMY -1996--LEFT KNEE SCOPE -1997 BREAST AUGMENTATION + TUMMY TUCK/ABDOMINOPLASTY -2013--CERVICAL SPINE FUSION C3-C7 -2014--LUMBAR SPINE SURGERY/FUSION L3-L5 (MARIETTA LUNA MED STUDENT) Physical Exam Vital Signs Vital Signs - First Documented 10/16/19 12:00 Temp 36.6 Pulse 92 Resp 20 B/P (MAP) 99/80 (86) Pulse Ox 93 O2 Delivery Room Air O2 Flow Rate 2.00 (JOHNNIE GRAHAM) Vital Signs Capillary Refill : (MARIETTA LUNA STUDENT) Height, Weight, BMI Height: 5'7.00" Weight: 188lbs. 8.0oz. 85.223521or; 27.00 BMI Method: General Appearance: Anxious, Mild Distress, Obese HEENT: PERRL/EOMI; No Scleral Icterus (L), No Scleral Icterus (R); Other (lesions of oral cavity) Neck: Normal Inspection, Supple, Tender Lateral (tender bilaterally lateral to trachea) Respiratory: Lungs Clear, Normal Breath Sounds, No Accessory Muscle Use, No Respiratory Distress Cardiovascular: Regular Rate, Rhythm, No Edema, No Murmur, Normal Peripheral Pulses Gastrointestinal: Tenderness Extremity: Normal Capillary Refill, Non Tender, No Calf Tenderness, No Pedal Edema Neurologic/Psychiatric: Alert, Oriented x3, Normal Mood/Affect Skin: Normal Color, Warm/Dry (MARIETTA LUNA STUDENT) Focused Exam Sepsis Stage: Severe Sepsis Possible Source: Genitouriary Lactate Level 10/16/19 12:15: Lactic Acid Level 0.98 (JOHNNIE GRAHAM) Time of Focused Exam: 14:13 Respiratory: Lungs Clear, Normal Breath Sounds, No Accessory Muscle Use, Respiratory Distress (mild on 2 L by nasal cannula 100% SPO2) Cardiovascular: Regular Rate, Rhythm, No Edema, Normal Peripheral Pulses Capillary Refill: Less Than 3 Seconds Skin: warm/dry, pallor Lactic Acid Level (JOHNNIE GRAHAM) Within 3hrs of presentation: Admin fluids, Admin ABX, Blood cultures prior to ABX's, Focus exam, Lactate level (JOHNNIE GRAHAM) Progress/Results/Core Measures Suspected Sepsis SIRS Temperature: Pulse: Respiratory Rate: Laboratory Tests 10/16/19 12:15: White Blood Count 0.1*L Blood Pressure / Mean: 10/16/19 12:15: Lactic Acid Level 0.98 Laboratory Tests 10/16/19 12:15: INR Comment 1.3, Platelet Count 2*L, Total Bilirubin 1.7H (MARIETTA LUNA STUDENT) Results/Orders Lab Results Laboratory Tests Test 10/16/19 12:15 10/16/19 12:55 10/16/19 13:19 Range/Units White Blood Count 0.1 *L 4.3-11.0 10^3/uL Red Blood Count 2.13 L 4.35-5.85 10^6/uL Hemoglobin 6.4 *L 11.5-16.0 G/DL Hematocrit 19 *L 35-52 % Mean Corpuscular Volume 90 80-99 FL Mean Corpuscular Hemoglobin 30 25-34 PG Mean Corpuscular Hemoglobin Concent 34 32-36 G/DL Red Cell Distribution Width 12.7 10.0-14.5 % Platelet Count 2 *L 130-400 10^3/uL Mean Platelet Volume 7.4-10.4 FL Neutrophils (%) (Auto) 42-75 % Lymphocytes (%) (Auto) 12-44 % Monocytes (%) (Auto) 0-12 % Eosinophils (%) (Auto) 0-10 % Basophils (%) (Auto) 0-10 % Neutrophils # (Auto) 1.8-7.8 X 10^3 Lymphocytes # (Auto) 1.0-4.0 X 10^3 Monocytes # (Auto) 0.0-1.0 X 10^3 Eosinophils # (Auto) 0.0-0.3 10^3/uL Basophils # (Auto) 0.0-0.1 10^3/uL Prothrombin Time 16.7 H 12.2-14.7 SEC INR Comment 1.3 0.8-1.4 Activated Partial Thromboplast Time 43 H 24-35 SEC Sodium Level 145 135-145 MMOL/L Potassium Level 3.0 L 3.6-5.0 MMOL/L Chloride Level 102 98-107 MMOL/L Carbon Dioxide Level 25 21-32 MMOL/L Anion Gap 18 H 5-14 MMOL/L Blood Urea Nitrogen 48 H 7-18 MG/DL Creatinine 3.26 H 0.60-1.30 MG/DL Estimat Glomerular Filtration Rate 14 BUN/Creatinine Ratio 15 Glucose Level 109 H 70-105 MG/DL Lactic Acid Level 0.98 0.50-2.00 MMOL/L Calcium Level 8.1 L 8.5-10.1 MG/DL Corrected Calcium 9.2 8.5-10.1 MG/DL Total Bilirubin 1.7 H 0.1-1.0 MG/DL Aspartate Amino Transf (AST/SGOT) 67 H 5-34 U/L Alanine Aminotransferase (ALT/SGPT) 87 H 0-55 U/L Alkaline Phosphatase 114 40-136 U/L Troponin I < 0.028 <0.028 NG/ML C-Reactive Protein High Sensitivity 44.24 H 0.00-0.50 MG/DL B-Type Natriuretic Peptide 144.4 H <100.0 PG/ML Total Protein 5.6 L 6.4-8.2 GM/DL Albumin 2.6 L 3.2-4.5 GM/DL Smear Scan YES Blood Gas Puncture Site LT BRACHIAL Blood Gas Patient Temperature 36.6 Arterial Blood pH 7.51 H 7.37-7.43 Arterial Blood Partial Pressure CO2 36 35-45 MMHG Arterial Blood Partial Pressure O2 53 L 79-93 MMHG Arterial Blood HCO3 29 H 23-27 MMOL/L Arterial Blood Total CO2 29.7 21.0-31.0 MMOL/L Arterial Blood Oxygen Saturation 89 L 94-100 % Arterial Blood Base Excess 5.3 H -2.5-2.5 MMOL/L Marv Test YES-POS Blood Gas Ventilator Setting NO Blood Gas Inspired Oxygen ROOM AIR Urine Color YELLOW Urine Clarity CLEAR Urine pH 7.0 5-9 Urine Specific [place] 1.010 L 1.016-1.022 Urine Protein 2+ H NEGATIVE Urine Glucose (UA) TRACE H NEGATIVE Urine Ketones TRACE H NEGATIVE Urine Nitrite NEGATIVE NEGATIVE Urine Bilirubin NEGATIVE NEGATIVE Urine Urobilinogen 1.0 < = 1.0 MG/DL Urine Leukocyte Esterase NEGATIVE NEGATIVE Urine RBC (Auto) 2+ H NEGATIVE Urine RBC NONE /HPF Urine WBC 10-25 H /HPF Urine Squamous Epithelial Cells 2-5 /HPF Urine Crystals NONE /LPF Urine Bacteria FEW H /HPF Urine Casts NONE /LPF Urine Mucus NEGATIVE /LPF Urine Culture Indicated YES (JOHNNIE GRAHAM) My Orders Orders - JOHNNIE GRAHAM Ed Iv/Invasive Line Start (10/16/19 12:35) Ns Iv 500 Ml (Sodium Chloride 0.9%) (10/16/19 12:35) Ns Iv 1000 Ml (Sodium Chloride 0.9%) (10/16/19 12:35) Ns Iv 1000 Ml (Sodium Chloride 0.9%) (10/16/19 12:35) Cbc With Automated Diff (10/16/19 12:35) Comprehensive Metabolic Panel (10/16/19 12:35) Blood Culture (10/16/19 12:35) Sputum Culture (10/16/19 12:35) Urinalysis (10/16/19 12:35) Urine Culture (10/16/19 12:35) Protime With Inr (10/16/19 12:35) Partial Thromboplastin Time (10/16/19 12:35) Chest 1 View, Ap/Pa Only (10/16/19 12:35) Ed Iv/Invasive Line Start (10/16/19 12:35) Ed Iv/Invasive Line Start (10/16/19 12:35) Ekg Tracing (10/16/19 12:35) Troponin I (10/16/19 12:35) Vital Signs Adult Sepsis Patie Q15M (10/16/19 12:35) O2 (10/16/19 12:35) Remove Rings In Anticipation O (10/16/19 12:35) Lactic Acid Analyzer (10/16/19 12:35) BNP (10/16/19 12:35) Hs C Reactive Protein (10/16/19 12:35) Arterial Blood Gas (10/16/19 12:55) Vancomycin Injection (Vancomycin Injecti (10/16/19 13:00) Cefepime Injection (Maxipime Injection) (10/16/19 13:00) Vital Signs: Special (Order) (10/16/19 12:59) Consent-Obtain Consent For (10/16/19 12:59) Monitor S/S Transfusion Reacti (10/16/19 12:59) Type And Screen (10/16/19 12:59) Red Cells Leukocytes Reduced (10/16/19 12:59) Platelet Pheresis Lr (10/16/19 13:08) Arterial Blood Draw (10/16/19 ) Ns Iv 1000 Ml (Sodium Chloride 0.9%) (10/16/19 15:36) Arterial Blood Draw (10/16/19 12:55) (JOHNNIE GRAHAM) Medications Given in ED Current Medications Medications Dose Ordered Sig/Haritha Route Start Time Stop Time Status Last Admin Dose Admin Cefepime HCl 1000 mg/Sterile Water 10 ml @ 200 mls/hr ONCE ONCE IV 10/16/19 13:00 10/16/19 13:02 DC 10/16/19 13:29 200 MLS/HR Sodium Chloride 500 ml @ 0 mls/hr Q0M ONCE IV 10/16/19 12:35 10/16/19 12:40 DC 10/16/19 13:48 500 MLS/HR Sodium Chloride 1,000 ml @ 0 mls/hr Q0M ONCE IV 10/16/19 12:35 10/16/19 12:40 DC 10/16/19 12:48 1,000 MLS/HR Vancomycin HCl 1500 mg/Sodium Chloride 500 ml @ 257 mls/hr ONCE ONCE IV 10/16/19 13:00 10/16/19 14:56 DC 10/16/19 13:44 257 MLS/HR (JOHNNIE GRAHAM) Vital Signs/I&O 10/16/19 10/16/19 10/16/19 10/16/19 12:00 12:00 14:15 14:34 Temp 36.6 36.6 36.6 Pulse 92 94 94 Resp 20 16 18 B/P (MAP) 99/80 (86) 114/47 98/50 Pulse Ox 93 100 100 100 O2 Delivery Room Air Nasal Cannula Nasal Cannula O2 Flow Rate 2.00 2.00 2.00 10/16/19 10/16/19 10/16/19 16:10 16:39 16:55 Temp 36.9 36.6 36.8 Pulse 92 92 93 Resp 18 16 18 B/P (MAP) 102/48 100/48 102/50 Pulse Ox 94 96 100 O2 Delivery Nasal Cannula Nasal Cannula Nasal Cannula O2 Flow Rate 2.00 3.00 3.00 (JOHNNIE GRAHAM) Vital Signs/I&O Capillary Refill : (MARIETTA LUNA MED STUDENT) Progress Note : Progress Note Considering immunosuppression, will proceed with septic workup including CBC, CMP, CXR (MARIETTA LUNA MED STUDENT) Progress Note : Time: 13:11 Progress Note Orthostatic hypotension secondary to hypovolemia related to her recent hemodialysis versus infectious source of hypertension? Septic workup; cover her with cefepime and vancomycin. We did consult Dr. Hernandez, oncology and he agrees with transfusing 2 units of packed red blood cells and 1 platelet pack. He agrees with admission and antibiotics however because of her dialysis we will Send her out. Since she is familiar with and her doctor certainly with her there would be preferable for continuity of care to send her [facility] if she is in a greement. Because she has no shortness of breath but her oxygen sats are reading 92-94% we did obtain an ABG to determine whether she truly is hypoxic. The ABG did demonstrate some hypoxia with PaO2 in the 50s. Plan to keep her on 2 L by nasal cannula. She does have a recent negative COVID-19 testing at [facility]. I attest that I saw this patient alongside the medical student and agree with his documented history, physical exam and review of systems except as otherwise noted. Patient adamantly declined to go to [facility] stating she did not enjoy her long stay there and would prefer to go somewhere closer. Her first preference was to stay here but it was explained to her that we do not have inpatient dialysis available. (JOHNNIE GRAHAM) ECG Initial ECG Impression Date: Oct 16, 2019 Initial ECG Impression Time: 12:04 Initial ECG Rate: 96 Initial ECG Rhythm: Normal Sinus Initial ECG Intervals: Normal Initial ECG Impression: Normal Initial ECG Comparisson: No Previous ECG Available Comment Normal sinus rhythm without clinically relevant ST elevation or depression. (JOHNNIE GRAHAM) Diagnostic Imaging Diagonstic Imaging: Xray Plain Films/CT/US/NM/MRI: chest Comments [facility], [place] NAME: SG TIM [facility] REC#: [id number] PT STATUS: REG ER : 1950 PHYSICIAN: JOHNNIE GRAHAM MD ADMIT DATE: 10/16/19/ER Draft Date of Exam:10/16/19 CHEST 1 VIEW, AP/PA ONLY INDICATION: Syncope. TIME OF EXAM: 02:40 p.m. COMPARISON: Comparison is made with prior chest from 09/17/2019. FINDINGS: Dialysis line has tip overlying the right atrium. Left-sided chest wall port has tip overlying the right atrium. Patient has developed bilateral predominantly perihilar as well as right upper lobe airspace pulmonary infiltrates. No effusion is identified. No pneumothorax is detected. IMPRESSION: Development of bilateral pulmonary infiltrates. While this could be on the basis of congestive failure, possibility of pneumonia or other etiologies cannot be entirely excluded. Dictated on workstation # [id number] Dict: 10/16/19 1448 Trans: 10/16/19 1451 [id number] Interpreted by: GAYATRI BERRY MD Electronically signed by: Reviewed: Reviewed by Me (JOHNNIE GRAHAM) Departure Impression Primary Impression: Lymphoma Qualified Codes: C85.90 - Non-Hodgkin lymphoma, unspecified, unspecified site Additional Impressions: Acquired pancytopenia End stage renal disease on dialysis Severe sepsis Urinary tract infection Qualified Codes: N30.00 - Acute cystitis without hematuria Disposition: XF SHT-TRM HOSP Condition: Stable Transfer Transfer Reason: Exceeds level of care Time Spoke to Accepting Phy: 15:00 Transfer Progress Notes 1330: Discussed the case with Dov on-call triage nurse. She will call back with hospitalist Dr. Castillo. We do not have inpatient dialysis otherwise we would be happy to take care of the patient locally. 1350: Dr Castillo declined to accept the patient saying she would just need transferred back to [facility] for her oncology team. We explained that the patient was adamant she did not want to go back and they still declined. 1400: Discussed the case with the patient and she consents to go to [facility]. [facility] Seamus, triage nurse and report and he will call back with medicine team. 1500K Dr. Luis Carlos Elmore accepts patient to telemetry Transfer Facility: [facility] Method of Transfer: EMS (JOHNNIE GRAHAM) Departure-Patient Inst. Referrals: [facility]) Primary Care Physician BECKY EDUARDO (Family) Primary Care Physician MARIETTA LUNA MED STUDENT Oct 16, 2019 12:22 JOHNNIE GRAHAM Oct 16, 2019 13:13
[2019-10-16] MEDS ORDERED: NS IV 500 ML 500 ML IV ONE (12:35)
[2019-10-16] MEDS ORDERED: NS IV 1000 ML 1,000 ML IV SCH (12:35)
[2019-10-16] MEDS ORDERED: NS IV 1000 ML 1,000 ML IV ONE (12:35)
--- OUTSIDE RECORDS SUMMARY | 2019-10-16 12:44 | XMS REPORT | Clinical Summary ---
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 If you d o not see the information that you expected, contact Release of Information in [facility] Information Management department at [phone] for further assistan ce in locating additional records.[facility] Allergies Comments Active Allergy Reactions Severity Noted Date Meloxicam SWOLLEN High 09/18/2019 TONGUE Medications End Date Status Medication Sig Dispensed Refills Start Date Active amLODIPine (NORVASC) 10 Take one 90 tablet 0 mg tablet tablet by 0 mouth daily. Active acyclovir (ZOVIRAX) 200 Take one 60 capsule 1 mg capsule capsule by 0 mouth twice daily. Active allopurinoL (ZYLOPRIM) Take one 30 tablet 0 100 mg tablet tablet by 0 mouth daily. Take with food. Active cyanocobalamin (VITAMIN Take two 90 tablet 1 B-12) 500 mcg tablet tablets by 0 mouth daily. Active folic acid (FOLVITE) 1 mg Take one 90 tablet 1 tablet tablet by 0 mouth daily. Active vitamins, multi B, C, Zn Take one 90 tablet 1 0 & folate (Renal) tablet by 0 (NEPHPLEX RX) mouth daily. 1-60-300-12.5 eu-yp-oro-mg tab Active fluconazole (DIFLUCAN) 200mg three 0 02 200 mg tablet times weekly 0 following dialysis for three doses. Active senna (SENOKOT) 8.6 mg Take two 90 tablet 0 tablet tablets by 0 mouth at bedtime as needed for Constipation. Active levoFLOXacin (LEVAQUIN) Take one 0 500 mg tablet tablet by 0 mouth every 48 hours. Active LORazepam (ATIVAN) 0.5 mg Take one 12 tablet 0 tablet tablet by 0 mouth every 6 hours as needed. 10/11/2019 Discontinued potassium chloride SR Take 10 mEq 0 (K-DUR) 10 mEq tablet by mouth twice daily. Take with a meal and a full glass of water. 10/11/2019 Discontinued HYDROcodone/acetaminophen Take 1 tablet 0 (NORCO) 10/325 mg tablet by mouth every 6 hours as needed for Pain 10/11/2019 Discontinued hydroCHLOROthiazide Take 25 mg by 0 (HYDRODIURIL) 25 mg mouth every tablet morning. 10/11/2019 Discontinued enalapril (VASOTEC) 10 mg Take 5 mg by 0 tablet mouth daily. 10/11/2019 Discontinued calcium carbonate (TUMS) Chew 0 500 mg (200 mg elemental 500-1,000 mg calcium) chewable tablet by mouth every 6 hours as needed. 10/11/2019 Discontinued filgrastim-sndz (ZARXIO) Inject 0.5 mL 0 10/10 300 mcg/0.5 mL syrg inj under the 0 syringe skin every 24 hours. 10/11/2019 Discontinued LORazepam (ATIVAN) 0.5 mg Take one 12 tablet 0 tablet tablet by 0 mouth every 6 hours as needed. Active Problems Problem Noted Date Diffuse large B-cell lymphoma of lymph nodes of multi ple regions 10/05/2019 Elevated CA 19-9 level 09/27/[address] of the chest 09/26/[address] scan 09/26/2019 ILD (interstitial lung disease) 09/25/2019 Anemia 09/25/2019 Physical debility 09/24/2019 UTI (urinary tract infection) 09/21/2019 Hyperkalemia 09/18/2019 Acute renal failure (ARF) 09/18/2019 High anion gap metabolic acidosis 09/18/2019 Encounters Care Team Description Date Type Specialty Luisito Baeza MBBS Atrophy, pancreas (Primary Dx) 10/09/2019 Prep for Case Nanette Kemp MD 10/04/2019 Orders Only Oncology Greg Stahl MD 10/03/2019 Hospital Radiology Encounter 10/01/2019 Travel Kassandra Choe MD BRONCHOSCOPY DIAGNOSTIC WITH CELL WASHIN G - FLEXIBLE 09/27/2019 Surgery Lenore, MD Omar Milligan Megan L, MD 09/27/2019 Anesthesia Event 09/27/2019 Travel Yisel Carlos MD Jeepalyam, Sravan, MD Giangreco, Peter D, DO Reddy, Devara R, MD Byrd, Kenneth, DO Singh, Anurag K, MD Acute renal failure (ARF) (HCC) 09/17/2019 Hospital Hematology and Onco logy - Encounter 10/11/2019 09/17/2019 Hospital Radiology Encounter 09/17/2019 Travel from Last 3 Months Family History Medical History Relation Name Comments Cancer-Colon Brother SLE Father Kidney Failure Mother Other Sister unknown vasculitis involving lung and kidney Relation Name Status Comments Brother Father Mother Sister Social History Date Tobacco Use Types Packs/Day Years Used Quit: 09/19/2007 Former Smoker Comments: quit >10 years ago Drinks/Week oz/Week Comments Alcohol Use Not Currently Sex Assigned at Date Recorded Not on file Industry Job Start Date Occupation Not on file Not on file Not on file Travel End Travel History Travel Start No recent travel history available. Date Recorded COVID-19 Exposure Response 10/01/2019 11:36 AM CDT In the last month, have you been in contact with No / Unsure someone who was confirmed or suspected to have Coronavirus / COVID-19? Last Filed Vital Signs Reading Time Taken Comments Vital Sign 111/55 10/11/2019 11:39 AM CDT Blood Pressure 97 10/11/2019 11:39 AM CDT Pulse 37 C (98.6 F) 10/11/2019 11:39 AM CDT Temperature - - Respiratory Rate 97% 10/11/2019 11:39 AM CDT Oxygen Saturation - - Inhaled Oxygen Concentration 70.5 kg (155 lb 6.8 oz) 10/10/2019 4:45 PM CDT Weight 162.6 cm (5' 4.02") 10/03/2019 11:00 AM CDT Height 26.67 10/03/2019 11:00 AM CDT Body Mass Index Plan of Treatment Health Maintenance Due Date Last Done Comments MEDICARE ANNUAL WELLNESS 1950 VISIT DTAP/TDAP VACCINES (1 - 1968 Tdap) PHYSICAL (COMPREHENSIVE) 1968 EXAM BREAST CANCER SCREENING 1990 COLORECTAL CANCER 2000 SCREENING SHINGLES RECOMBINANT 2000 VACCINE (1 of 2) OSTEOPOROSIS 08/13/2015 SCREENING/MONITORING PNEUMONIA (PPSV23) 08/13/2015 VACCINE (1 of 1 - PPSV23) INFLUENZA VACCINE 12/12/2019 HEPATITIS C SCREENING Completed 10/02/2019, 09/21/2019 Goals Goal Patient Associated Recent Progress Patient-Stat Aut hor Goal Type Problems ed? GOAL General No Ael Choudhary, RN Note: Get back on my feet Implants Device Identifier Shelf Expiration Date Model / Serial / L ot Implanted Type Area Manufactur er [id number] 02/09/2021 [id number] / NA / [id number] Catheter 24cm 14.5fr Glidepath Right: Internal BARD Straight Polyurethane Kit Dup1 - Jugular ACCE SS Sna SYSTEMS Implanted: Qty: 1 on 10/01/2019 by INC Jonathan Shirley MD at [facility] [id number] 09/09/2020 [id number] / NA / [id number] Port Implantable Infusion Powerport Left: Chest B JEFF Clearvue Isp - Sna ACCESS Implanted: Qty: 1 on 10/04/2019 by George Lima DO at [facility] Description:POWERPORT ClearVUE verified by IR intra-procedure implant log and CXR with "CT" visible 10-04-2019. LEFT IJ, 8Fr. - LWRN Procedures Comments Procedure Name Priority Date/Time Associated Diag nosis HC CBC W/ AUTOMATED DIFF Add on 10/11/2019 2:40 AM CDT HC URIC ACID Routine 10/11/2019 2:40 AM CDT HC LD(LDH;LACTIC Routine 10/11/2019 DEHYDROGENASE) 2:40 AM CDT HC COMPREHENSIVE Routine 10/11/2019 METABOLIC PANEL 2:40 AM CDT HC PT(INR) Routine 10/11/2019 2:40 AM CDT HC BASIC METABOLIC PANEL Routine 10/10/2019 5:11 PM CDT HEMODIALYSIS INPATIENT Routine 10/10/2019 3:02 PM CDT HEMODIALYSIS DATE Routine 10/10/2019 3:02 PM CDT IR LUMBAR PUNCTURE Routine 10/10/2019 12:10 PM CDT HC GLUCOSE-CSF STAT 10/10/2019 11:54 AM CDT HC TOTAL PROTEIN-CSF STAT 10/10/2019 11:54 AM CDT HC CELL COUNT W/DIFF-CSF STAT 10/10/2019 11:54 AM CDT POC GLUCOSE 10/10/2019 11:37 AM CDT HC URIC ACID RASBURICASE STAT 10/10/2019 9:20 AM CDT HC LD(LDH;LACTIC Routine 10/10/2019 DEHYDROGENASE) 2:20 AM CDT HC COMPREHENSIVE Routine 10/10/2019 METABOLIC PANEL 2:20 AM CDT HC URIC ACID Routine 10/10/2019 2:20 AM CDT HC PHOSPHOROUS, SERUM Routine 10/10/2019 2:20 AM CDT HC CBC W/ AUTOMATED DIFF Routine 10/10/2019 2:20 AM CDT HC MAGNESIUM Routine 10/10/2019 2:20 AM CDT HC PT(INR) Routine 10/10/2019 2:20 AM CDT HC URIC ACID RASBURICASE STAT 10/09/2019 10:00 PM CDT HC BASIC METABOLIC PANEL Routine 10/09/2019 4:30 PM CDT HC URIC ACID Routine 10/09/2019 4:30 PM CDT HC PHOSPHOROUS, SERUM Routine 10/09/2019 4:30 PM CDT HC VRE SCREEN Routine 10/09/2019 11:46 AM CDT HC LD(LDH;LACTIC Routine 10/09/2019 DEHYDROGENASE) 3:00 AM CDT HC COMPREHENSIVE Routine 10/09/2019 METABOLIC PANEL 3:00 AM CDT HC URIC ACID Routine 10/09/2019 3:00 AM CDT HC PHOSPHOROUS, SERUM Routine 10/09/2019 3:00 AM CDT HC CBC W/ AUTOMATED DIFF Routine 10/09/2019 3:00 AM CDT HC MAGNESIUM Routine 10/09/2019 3:00 AM CDT HC PT(INR) Routine 10/09/2019 3:00 AM CDT HC BASIC METABOLIC PANEL Routine 10/08/2019 4:33 PM CDT HC URIC ACID Routine 10/08/2019 4:33 PM CDT HC PHOSPHOROUS, SERUM Routine 10/08/2019 4:33 PM CDT TRANSFUSE RBC'S Routine 10/08/2019 10:20 AM CDT HC ABO GROUP MU 10/08/2019 3:15 AM CDT HC LD(LDH;LACTIC Add on 10/08/2019 DEHYDROGENASE) 3:15 AM CDT HC COMPREHENSIVE Routine 10/08/2019 METABOLIC PANEL 3:15 AM CDT HC URIC ACID Routine 10/08/2019 3:15 AM CDT HC PHOSPHOROUS, SERUM Routine 10/08/2019 3:15 AM CDT HC CBC W/ AUTOMATED DIFF Routine 10/08/2019 3:15 AM CDT HC MAGNESIUM Routine 10/08/2019 3:15 AM CDT HC PT(INR) Routine 10/08/2019 3:15 AM CDT HC BASIC METABOLIC PANEL Routine 10/07/2019 7:00 PM CDT HC URIC ACID Routine 10/07/2019 7:00 PM CDT HC PHOSPHOROUS, SERUM Routine 10/07/2019 7:00 PM CDT HEMODIALYSIS INPATIENT Routine 10/07/2019 6:57 PM CDT HEMODIALYSIS DATE Routine 10/07/2019 6:57 PM CDT IR LUMBAR PUNCTURE Routine 10/07/2019 1:35 PM CDT WA FLOW CYTOMETRY INTERPJ 10/07/2019 2-8 MARKERS 1:10 PM CDT CSF TUBE VOLUMES 10/07/2019 1:10 PM CDT LEUKEMIA/LYMPHOMA PANEL Routine 10/07/2019 FLUID/TISSUE 1:10 PM CDT HC GLUCOSE-CSF STAT 10/07/2019 1:10 PM CDT HC TOTAL PROTEIN-CSF STAT 10/07/2019 1:10 PM CDT HC CELL COUNT W/DIFF-CSF STAT 10/07/2019 1:10 PM CDT POC GLUCOSE 10/07/2019 12:48 PM CDT HC NON-ANIMATOR/THIN PREP Routine 10/07/2019 11:30 AM CDT CHEST SINGLE VIEW Routine 10/07/2019 4:00 AM CDT HC COMPREHENSIVE Routine 10/07/2019 METABOLIC PANEL 2:25 AM CDT HC URIC ACID Routine 10/07/2019 2:25 AM CDT HC PHOSPHOROUS, SERUM Routine 10/07/2019 2:25 AM CDT HC CBC W/ AUTOMATED DIFF Routine 10/07/2019 2:25 AM CDT HC MAGNESIUM Routine 10/07/2019 2:25 AM CDT HC LD(LDH;LACTIC Routine 10/07/2019 DEHYDROGENASE) 2:25 AM CDT HC PT(INR) Routine 10/07/2019 2:25 AM CDT HC URIC ACID Routine 10/06/2019 4:21 PM CDT HC PHOSPHOROUS, SERUM Routine 10/06/2019 4:21 PM CDT BASIC METABOLIC PANEL Routine 10/06/2019 4:21 PM CDT HC COMPREHENSIVE Specimen 10/06/2019 METABOLIC PANEL in Lab 4:15 AM CDT HC HEPATIC FUNCTION PANEL Add on 10/06/2019 4:15 AM CDT HC PHOSPHOROUS, SERUM Add on 10/06/2019 4:15 AM CDT HC BASIC METABOLIC PANEL Add on 10/06/2019 4:15 AM CDT HC CBC W/ AUTOMATED DIFF Routine 10/06/2019 4:15 AM CDT HC MAGNESIUM Routine 10/06/2019 4:15 AM CDT HC LD(LDH;LACTIC Routine 10/06/2019 DEHYDROGENASE) 4:15 AM CDT HC PT(INR) Routine 10/06/2019 4:15 AM CDT HC URIC ACID Routine 10/05/2019 6:16 PM CDT ECG 12-LEAD Routine 10/05/2019 4:00 PM CDT HC VRE SCREEN Routine 10/05/2019 1:55 PM CDT COVID-19 (SARS-COV-2) PCR Routine 10/05/2019 12:17 PM CDT HEMODIALYSIS INPATIENT Routine 10/05/2019 8:59 AM CDT HEMODIALYSIS DATE Routine 10/05/2019 8:59 AM CDT HC HEPATIC FUNCTION PANEL Add on 10/05/2019 4:30 AM CDT HC URIC ACID RASBURICASE Routine 10/05/2019 4:30 AM CDT HC LD(LDH;LACTIC Routine 10/05/2019 DEHYDROGENASE) 4:30 AM CDT HC PHOSPHOROUS, SERUM Routine 10/05/2019 4:30 AM CDT HC MAGNESIUM Routine 10/05/2019 4:30 AM CDT HC BASIC METABOLIC PANEL Routine 10/05/2019 4:30 AM CDT HC CBC W/ AUTOMATED DIFF Routine 10/05/2019 4:30 AM CDT HC PT(INR) Routine 10/05/2019 4:30 AM CDT HC LVL IV SRG PTH, GROSS 10/04/2019 & MICRO 9:44 AM CDT IR BONE MARROW BIOPSY Routine 10/04/2019 9:21 AM CDT HC MOD SEDATION, INIT 15 Routine 10/04/2019 MIN, =>5 YEARS 9:21 AM CDT WA FLOW CYTOMETRY 10/04/2019 INTERPRETATION 16/> 9:20 AM CDT MARKERS CHROMOSOMES BONE MARROW Routine 10/04/2019 9:20 AM CDT LEUKEMIA/LYMPHOMA PNL, Routine 10/04/2019 BONE MARROW 9:20 AM CDT HC FE STAIN, BM ASP Routine 10/04/2019 9:20 AM CDT BONE MARROW BIOPSY Routine 10/04/2019 9:20 AM CDT BONE MARROW ASP Routine 10/04/2019 9:20 AM CDT HC URIC ACID Add on 10/04/2019 6:54 AM CDT MANUAL DIFF Routine 10/04/2019 6:54 AM CDT HC LD(LDH;LACTIC Routine 10/04/2019 DEHYDROGENASE) 6:54 AM CDT HC PHOSPHOROUS, SERUM Routine 10/04/2019 6:54 AM CDT HC MAGNESIUM Routine 10/04/2019 6:54 AM CDT HC BASIC METABOLIC PANEL Routine 10/04/2019 6:54 AM CDT HC CBC W/ AUTOMATED DIFF Routine 10/04/2019 6:54 AM CDT HC PT(INR) Routine 10/04/2019 6:54 AM CDT NM PET SCAN WHOLEBODY Routine 10/03/2019 (HEAD-TOES) 4:39 PM CDT WA FLOW CYTOMETRY INTERPJ 10/03/2019 2-8 MARKERS 1:45 PM CDT CSF TUBE VOLUMES 10/03/2019 1:45 PM CDT LEUKEMIA/LYMPHOMA PANEL Routine 10/03/2019 FLUID/TISSUE 1:45 PM CDT HC GLUCOSE-CSF STAT 10/03/2019 1:45 PM CDT HC TOTAL PROTEIN-CSF STAT 10/03/2019 1:45 PM CDT HC CELL COUNT W/DIFF-CSF STAT 10/03/2019 1:45 PM CDT IR LUMBAR PUNCTURE Routine 10/03/2019 1:41 PM CDT HC NON-ANIMATOR/THIN PREP Routine 10/03/2019 12:30 PM CDT HC PT(INR) 10/03/2019 10:36 AM CDT HC PHOSPHOROUS, SERUM 10/03/2019 10:36 AM CDT HC MAGNESIUM 10/03/2019 10:36 AM CDT HC LD(LDH;LACTIC 10/03/2019 DEHYDROGENASE) 10:36 AM CDT HC CBC W/ AUTOMATED DIFF 10/03/2019 10:36 AM CDT HC BASIC METABOLIC PANEL 10/03/2019 10:36 AM CDT HEMODIALYSIS INPATIENT Routine 10/03/2019 8:20 AM CDT HEMODIALYSIS INPATIENT Routine 10/02/2019 2:40 PM CDT HEMODIALYSIS DATE Routine 10/02/2019 2:40 PM CDT HEMODIALYSIS INPATIENT Routine 10/02/2019 2:40 PM CDT CHEST 2 VIEWS STAT 10/02/2019 1:24 PM CDT POC GLUCOSE 10/02/2019 8:38 AM CDT HC B-TYPE NATRIURETIC Add on 10/02/2019 PEPTIDE 6:10 AM CDT HC MAGNESIUM Routine 10/02/2019 6:10 AM CDT HC PHOSPHOROUS, SERUM Routine 10/02/2019 6:10 AM CDT HC CBC W/ AUTOMATED DIFF Routine 10/02/2019 6:10 AM CDT HC BASIC METABOLIC PANEL Routine 10/02/2019 6:10 AM CDT HC PT(INR) Routine 10/02/2019 6:10 AM CDT HC HIV 1/2 ZIGGY AG SCREEN 10/02/2019 6:10 AM CDT HC HEPATITIS C ZIGGY 10/02/2019 6:10 AM CDT HC HEPATITIS B CORE 10/02/2019 ANTIBODY 6:10 AM CDT HC HEPATITIS B-S ANTIGEN 10/02/2019 6:10 AM CDT HC BETA 2 MICROGLOBULIN 10/02/2019 6:10 AM CDT POC GLUCOSE 10/01/2019 9:43 PM CDT HEMODIALYSIS DATE Routine 10/01/2019 5:33 PM CDT HC COMPREHENSIVE STAT 10/01/2019 METABOLIC PANEL 3:30 PM CDT CBC STAT 10/01/2019 3:30 PM CDT IR CENTRAL VENOUS Routine 10/01/2019 CATHETER 12:04 PM CDT HC ZINC(ZN) Routine 10/01/2019 10:12 AM CDT HC COPPER(CU) Routine 10/01/2019 10:12 AM CDT POC GLUCOSE 10/01/2019 9:36 AM CDT HC URIC ACID Add on 10/01/2019 6:37 AM CDT HC LD(LDH;LACTIC Add on 10/01/2019 DEHYDROGENASE) 6:37 AM CDT HC MAGNESIUM Routine 10/01/2019 6:37 AM CDT HC PHOSPHOROUS, SERUM Routine 10/01/2019 6:37 AM CDT CBC AND DIFF Routine 10/01/2019 6:37 AM CDT HC BASIC METABOLIC PANEL Routine 10/01/2019 6:37 AM CDT HC PT(INR) Routine 10/01/2019 6:37 AM CDT HC CBC W/ AUTOMATED DIFF Routine 10/01/2019 12:05 AM CDT CBC Add on 09/30/2019 3:14 PM CDT IR RENAL BIOPSY Routine 09/30/2019 11:33 AM CDT MISCELLANEOUS SURGICAL 09/30/2019 PATHOLOGY REFERENCE LAB 10:15 AM CDT TEST MISC PETERSEN TEST 09/30/2019 10:15 AM CDT HC SPECIAL STAINS #2 MU 09/30/2019 (PATHOLOGY) 10:15 AM CDT HC MAGNESIUM Routine 09/30/2019 6:02 AM CDT HC PHOSPHOROUS, SERUM Routine 09/30/2019 6:02 AM CDT HC CBC W/ AUTOMATED DIFF Routine 09/30/2019 6:02 AM CDT HC BASIC METABOLIC PANEL Routine 09/30/2019 6:02 AM CDT HC PT(INR) Routine 09/30/2019 6:02 AM CDT HC ELECTROPHORESIS-URINE Routine 09/29/2019 10:10 PM CDT HC PHOSPHOROUS, SERUM Routine 09/29/2019 5:51 AM CDT HC MAGNESIUM Routine 09/29/2019 5:51 AM CDT HC BASIC METABOLIC PANEL Routine 09/29/2019 5:51 AM CDT HC CBC W/ AUTOMATED DIFF Routine 09/29/2019 5:51 AM CDT HC PHOSPHOROUS, SERUM Routine 09/28/2019 6:58 AM CDT HC MAGNESIUM Routine 09/28/2019 6:58 AM CDT HC BASIC METABOLIC PANEL Routine 09/28/2019 6:58 AM CDT HC CBC W/ AUTOMATED DIFF Routine 09/28/2019 6:58 AM CDT HC SPECIAL STAINS #1 Routine 09/27/2019 (PATHOLOGY) 6:00 PM CDT HC CULTURE-TB DIRECT Routine 09/27/2019 5:54 PM CDT WA FLOW CYTOMETRY 09/27/2019 INTERPRETATION 16/> 5:32 PM CDT MARKERS HC CELL COUNT Routine 09/27/2019 W/DIFF-FLUIDS 5:32 PM CDT HC HSV PCR Routine 09/27/2019 5:32 PM CDT HC CMV DNA QN BY PCR Routine 09/27/2019 5:32 PM CDT LEUKEMIA/LYMPHOMA PANEL Routine 09/27/2019 FLUID/TISSUE 5:32 PM CDT HC GRAM STAIN 09/27/2019 5:32 PM CDT HC CULTURE-FUNGAL; OTHER Routine 09/27/2019 5:32 PM CDT HC CULTURE-LOWER RESP Routine 09/27/2019 5:32 PM CDT HC CELL BLOCK-CYTOLOGY Routine 09/27/2019 5:30 PM CDT BRONCHOSCOPY WITH 09/27/2019 ILD (interstitial l danyelle BRONCHIAL/ ENDOBRONCHIAL 4:49 PM CDT disease) (HC C) BIOPSY - FLEXIBLE BRONCHOSCOPY WITH 09/27/2019 ILD (interstitial l danyelle ENDOBRONCHIAL ULTRASOUND 4:49 PM CDT disease) (HC C) GUIDED TRANSTRACHEAL/ TRANSBRONCHIAL SAMPLING - 3 OR MORE MEDIASTINAL/ HILAR LYMPH NODE STATIONS/ STRUCTURE - FLEXIBLE BRONCHOSCOPY WITH 09/27/2019 ILD (interstitial l danyelle BRONCHIAL ALVEOLAR LAVAGE 4:49 PM CDT disease) (H CC) - FLEXIBLE BRONCHOSCOPY DIAGNOSTIC 09/27/2019 ILD (intersti tial lung WITH CELL WASHING - 4:49 PM CDT disease) (HCC) FLEXIBLE BRONCHOSCOPY 09/27/2019 4:30 PM CDT HC IMMUNO FIX SERUM Routine 09/27/2019 (IFES) 11:01 AM CDT HC ELECTROPHORESIS-SERUM Routine 09/27/2019 11:01 AM CDT HC LACTIC ACID(LACTATE) Routine 09/27/2019 11:01 AM CDT HC IGG SUBCLASS (IGGSC) Routine 09/27/2019 11:01 AM CDT HC ALPHA FETO PROTEIN, Routine 09/27/2019 SERUM 11:01 AM CDT HC LVL IV SRG PTH, GROSS Routine 09/27/2019 & MICRO 7:06 AM CDT LEUKEMIA-LYMPHOMA PANEL Routine 09/27/2019 BLOOD 4:11 AM CDT HC CA 19-9 Routine 09/27/2019 4:11 AM CDT HC BASIC METABOLIC PANEL Routine 09/27/2019 4:11 AM CDT HC CBC W/ AUTOMATED DIFF Routine 09/27/2019 4:11 AM CDT WA FLOW CYTOMETRY 09/27/2019 INTERPRETATION 16/> 4:00 AM CDT MARKERS HC LIPASE Add on 09/26/2019 11:26 AM CDT HC CBC,AUTOMATED 09/26/2019 11:26 AM CDT HC BASIC METABOLIC PANEL 09/26/2019 11:[address] ABD/PELV WO CONTRAST Routine 09/26/2019 10:59 AM CDT PFT COMPLETE PULM Routine 09/26/2019 FUNCTION 9:52 AM CDT HC CALCIUM-URINE(TIMED) Routine 09/25/2019 9:25 PM CDT HC ANTI-SCL 70 ANTIBODY Routine 09/25/2019 5:15 PM CDT HC ANTICARDIO LIPIN IGG Routine 09/25/2019 5:15 PM CDT HC ANTI-JOJO-1, SERUM Routine 09/25/2019 5:15 PM CDT HC SERINE PROTEASE 3 AB Routine 09/25/2019 5:15 PM CDT HC IGA Routine 09/25/2019 5:15 PM CDT HC MICROPOLYSPORA FAENI Routine 09/25/2019 (HPNEU) 91 5:15 PM CDT HC ALDOLASE Routine 09/25/2019 5:15 PM CDT HC CK(CPK OR CREATINE Routine 09/25/2019 KINASE) 5:15 PM CDT HC ANTI-SSA Routine 09/25/2019 5:15 PM CDT HC CCP IGG ANTIBODY Routine 09/25/2019 5:15 PM CDT HC ANTI-DNA [place] [facility] [place] Specimen 09/25/2019 in Lab 3:46 PM CDT HC ANGIOTEN CONV Specimen 09/25/2019 ENZYME(CECE)SER in Lab 3:46 PM CDT HC HAPTOGLOBIN;QUANT Specimen 09/25/2019 in Lab 3:46 PM CDT HC RHEUMATOID Specimen 09/25/2019 FACTOR:QUANT in Lab 3:46 PM CDT HC ANTI NUCLEAR ZIGGY SCRN Specimen 09/25/2019 in Lab 3:46 PM CDT TRANSFUSE RBC'S Routine 09/25/2019 2:26 PM CDT HC BLOOD TYPING, ABO STAT 09/25/2019 CONFIRM 91 9:35 AM CDT HC ABO GROUP Routine 09/25/2019 9:10 AM CDT HC RETICULOCYTE COUNT; Add on 09/25/2019 AUTO 4:00 AM CDT WA BLOOD SMEAR PERIPHERAL Add on 09/25/2019 INTERP PHYS W/WRIT REPORT 4:00 AM CDT HC LD(LDH;LACTIC Add on 09/25/2019 DEHYDROGENASE) 4:00 AM CDT HC SED RATE; MANUAL Add on 09/25/2019 4:00 AM CDT HC C-REACTIVE PROTEIN Add on 09/25/2019 (CRP) 4:00 AM CDT HC COMPREHENSIVE Routine 09/25/2019 METABOLIC PANEL 4:00 AM CDT HC CBC W/ AUTOMATED DIFF Routine 09/25/2019 4:[address] CHEST WO CONTRAST Routine 09/24/2019 9:47 PM CDT CHEST 2 VIEWS Routine 09/24/2019 1:41 PM CDT HC COMPREHENSIVE Routine 09/24/2019 METABOLIC PANEL 6:30 AM CDT HC CBC W/ AUTOMATED DIFF Routine 09/24/2019 6:30 AM CDT HC COMPREHENSIVE Routine 09/23/2019 METABOLIC PANEL 5:37 AM CDT HC CBC W/ AUTOMATED DIFF Routine 09/23/2019 5:37 AM CDT HC COMPREHENSIVE Routine 09/22/2019 METABOLIC PANEL 5:00 AM CDT HC CBC W/ AUTOMATED DIFF Routine 09/22/2019 5:00 AM CDT HC ACUTE HEPATITIS PANEL Routine 09/21/2019 6:29 AM CDT HC COMPREHENSIVE Routine 09/21/2019 METABOLIC PANEL 6:29 AM CDT HC CBC W/ AUTOMATED DIFF Routine 09/21/2019 6:29 AM CDT HC COMPREHENSIVE Routine 09/20/2019 METABOLIC PANEL 4:46 AM CDT HC CBC W/ AUTOMATED DIFF Routine 09/20/2019 4:46 AM CDT HC BASIC METABOLIC PANEL Routine 09/19/2019 4:23 PM CDT 2D + DOPPLER ECHO W/ Routine 09/19/2019 CONTRAST 2:11 PM CDT HC CULTURE-URINE Routine 09/19/2019 12:01 PM CDT HC COMPREHENSIVE Routine 09/19/2019 METABOLIC PANEL 7:21 AM CDT HC CBC W/ AUTOMATED DIFF Routine 09/19/2019 7:21 AM CDT BASIC METABOLIC PANEL Routine 09/18/2019 5:35 PM CDT HC BASIC METABOLIC PANEL Routine 09/18/2019 5:30 PM CDT US DOPPLER ABD PELV Routine 09/18/2019 RETROPER COMP 10:51 AM CDT US RENAL BLADDER COMPLETE Routine 09/18/2019 10:51 AM CDT HC OSMOLALITY;BLOOD Routine 09/18/2019 9:54 AM CDT HC PTT(APTT) Routine 09/18/2019 9:54 AM CDT HC PT(INR) Routine 09/18/2019 9:54 AM CDT HC TSH SCREEN Routine 09/18/2019 9:54 AM CDT HC VITAMIN B12 Routine 09/18/2019 9:54 AM CDT HC FOLATE, SERUM Routine 09/18/2019 9:54 AM CDT HC OSMOLALITY-URINE Routine 09/18/2019 9:15 AM CDT HC CHLORIDE-URINE Routine 09/18/2019 9:15 AM CDT HC TP/CR RATIO, RANDOM Routine 09/18/2019 9:15 AM CDT HC RETICULOCYTE COUNT; Add on 09/18/2019 AUTO 7:02 AM CDT HC IRON BINDING CAPACITY Add on 09/18/2019 + %SAT 7:02 AM CDT HC COMPREHENSIVE Routine 09/18/2019 METABOLIC PANEL 7:02 AM CDT HC CBC W/ AUTOMATED DIFF Routine 09/18/2019 7:02 AM CDT HC SODIUM-URINE Routine 09/18/2019 1:30 AM CDT HC UREA NITROGEN-URINE Routine 09/18/2019 1:30 AM CDT HC CREATININE-URINE Routine 09/18/2019 1:30 AM CDT URINALYSIS, MICROSCOPIC Routine 09/18/2019 1:30 AM CDT HC URINALYSIS, AUTO W Routine 09/18/2019 MICRO 1:30 AM CDT HC PHOSPHOROUS, SERUM Routine 09/18/2019 1:30 AM CDT HC MAGNESIUM Routine 09/18/2019 1:30 AM CDT HC BASIC METABOLIC PANEL Routine 09/18/2019 1:30 AM CDT HC BLOOD Routine 09/18/2019 GASES;(CALCULATED 02) 1:30 AM CDT COVID-19 (SARS-COV-2) PCR Routine 09/18/2019 1:30 AM CDT ECG 12-LEAD Routine 09/18/2019 12:30 AM CDT GENERAL RAD CHEST Routine 09/17/2019 EXTERNAL IMAGING 12:00 AM CDT PROCEDURE RECORD-SCAN 09/17/2019 12:00 AM CDT TELEMETRY STRIPS-SCAN 09/17/2019 12:00 AM CDT ECG-SCAN 09/17/2019 12:00 AM CDT TELEMETRY STRIPS-SCAN 09/17/2019 12:00 AM CDT TELEMETRY STRIPS-SCAN 09/17/2019 12:00 AM CDT TELEMETRY STRIPS-SCAN 09/17/2019 12:00 AM CDT TELEMETRY STRIPS-SCAN 09/17/2019 12:00 AM CDT TELEMETRY STRIPS-SCAN 09/17/2019 12:00 AM CDT TELEMETRY STRIPS-SCAN 09/17/2019 12:00 AM CDT TELEMETRY STRIPS-SCAN 09/17/2019 12:00 AM CDT TELEMETRY STRIPS-SCAN 09/17/2019 12:00 AM CDT TELEMETRY STRIPS-SCAN 09/17/2019 12:00 AM CDT TELEMETRY STRIPS-SCAN 09/17/2019 12:00 AM CDT TELEMETRY STRIPS-SCAN 09/17/2019 12:00 AM CDT TELEMETRY STRIPS-SCAN 09/17/2019 12:00 AM CDT TELEMETRY STRIPS-SCAN 09/17/2019 12:00 AM CDT TELEMETRY STRIPS-SCAN 09/17/2019 12:00 AM CDT TELEMETRY STRIPS-SCAN 09/17/2019 12:00 AM CDT TELEMETRY STRIPS-SCAN 09/17/2019 12:00 AM CDT TELEMETRY STRIPS-SCAN 09/17/2019 12:00 AM CDT TELEMETRY STRIPS-SCAN 09/17/2019 12:00 AM CDT TELEMETRY STRIPS-SCAN 09/17/2019 12:00 AM CDT TELEMETRY STRIPS-SCAN 09/17/2019 12:00 AM CDT TELEMETRY STRIPS-SCAN 09/17/2019 12:00 AM CDT TELEMETRY STRIPS-SCAN 09/17/2019 12:00 AM CDT TELEMETRY STRIPS-SCAN 09/17/2019 12:00 AM CDT TELEMETRY STRIPS-SCAN 09/17/2019 12:00 AM CDT TELEMETRY STRIPS-SCAN 09/17/2019 12:00 AM CDT TELEMETRY STRIPS-SCAN 09/17/2019 12:00 AM CDT TELEMETRY STRIPS-SCAN 09/17/2019 12:00 AM CDT TELEMETRY STRIPS-SCAN 09/17/2019 12:00 AM CDT ECG-SCAN 09/17/2019 12:00 AM CDT TELEMETRY STRIPS-SCAN 09/17/2019 12:00 AM CDT TELEMETRY STRIPS-SCAN 09/17/2019 12:00 AM CDT from Last 3 Months Results * PROTIME INR (PT) (10/11/2019 2:40 AM CDT) Only the most recent of 13 results within the time period is included. Pathologist [facility] INR 1.2 0.8 - 1.2 MAIN LAB Specimen Blood Performing Organization Address City/State/Zipcode Ph one Number MAIN LAB [address] [place] [address] * CBC AND DIFF (10/11/2019 2:40 AM CDT) Only the most recent of 23 results within the time period is included. White Blood 6.2 4.5 - 11.0 K/UL [facility] Cells RBC 2.62 (L) 4.0 - 5.0 M/UL [facility] Hemoglobin 8.3 (L) 12.0 - 15.0 GM/DL [facility] Hematocrit 23.4 (L) 36 - 45 % [facility] MCV 89.5 80 - 100 FL [facility] MCH 31.8 26 - 34 PG [facility] MCHC 35.5 32.0 - 36.0 G/DL [facility] MAIN LAB RDW 13.1 11 - 15 % [facility] MAIN LAB Platelet Count 127 (L) 150 - 400 K/UL [facility] MAIN [facility] MPV 7.4 7 - 11 FL [facility] Neutrophils 96 (H) 41 - 77 % [facility] Lymphocytes 2 (L) 24 - 44 % [facility] Monocytes 1 (L) 4 - 12 % [facility] Eosinophils 1 0 - 5 % [facility] Basophils 0 0 - 2 % [facility] MA[facility] Absolute 5.96 1.8 - 7.0 K/UL [facility] MAIN LAB Neutrophil Count Absolute Lymph 0.15 (L) 1.0 - 4.8 K/UL [facility] MAIN [facility] Count Absolute 0.05 0 - 0.80 K/UL [facility] MAIN LAB Monocyte Count Absolute 0.05 0 - 0.45 K/UL [facility] MAIN LAB Eosinophil Count Absolute 0.01 0 - 0.20 K/UL [facility] MAIN [facility] Basophil Count Specimen Performing Organization Address [facility] one Number MAIN LAB [address] [place] [address] * URIC ACID (10/11/2019 2:40 AM CDT) Only the most recent of 12 results within the time period is included. Uric Acid <1.5 (L) 2.0 - 7.0 MG/DL MAIN LAB Specimen Blood Performing Organization Address [facility] one Number MAIN LAB [address] [place] [address] * LDH-LACTATE DEHYDROGENASE (10/11/2019 2:40 AM CDT) Only the most recent of 11 results within the time period is included. Lactate 312 (H) 100 - 210 U/L MAIN LAB Dehydrogenase Specimen Blood Performing Organization Address [facility] one Number MAIN LAB [address] [place] [address] * COMPREHENSIVE METABOLIC PANEL (10/11/2019 2:40 AM CDT) Only the most recent of 15 results within the time period is included. Sodium 140 137 - 147 MMOL/L [facility] MAIN LAB Potassium 4.0 3.5 - 5.1 MMOL/L [facility] MAIN LAB Chloride 103 98 - 110 MMOL/L [facility] MAIN LAB Glucose 104 (H) 70 - 100 MG/DL [facility] MAIN LAB Blood Urea 44 (H) 7 - 25 MG/DL [facility] MAIN LAB Nitrogen Creatinine 2.52 (H) 0.4 - 1.00 MG/DL [facility] MAIN LAB Calcium 7.8 (L) 8.5 - 10.6 MG/DL [facility] MAIN LAB Total Protein 5.1 (L) 6.0 - 8.0 G/DL [facility] MAIN LAB Total Bilirubin 0.6 0.3 - 1.2 MG/DL [facility] MAIN LAB Albumin 2.8 (L) 3.5 - 5.0 G/DL [facility] MAIN LAB Alk Phosphatase 107 25 - 110 U/L [facility] MAIN [facility] AST (SGOT) 28 7 - 40 U/L [facility] MAIN LAB CO2 25 21 - 30 MMOL/L [facility] MAIN LAB ALT (SGPT) 43 7 - 56 U/L [facility] MAIN LAB Anion Gap 12 3 - 12 [facility] MAIN LAB eGFR Non 19 (L) >60 mL/min [facility] MAIN LAB Comment: Afghan The eGFR is not validated f or use in drug dosing adjustments. Continue to use estimated creatinine clearance per dosing reference text. Please contact the Clinical Pharmacist for questions. eGFR 23 (L) >60 mL/min [facility] MAIN LAB Afghan Comment: The eGFR is not validated for use in drug dosing adjustments. Continue to use estimated creatinine clearance per dosing reference text. Please contact the Clinical Pharmacist for questions. Specimen Blood Performing Organization Address City/State/Zipcode Ph one Number [facility] MAIN LAB [address] [place] [address] * BASIC METABOLIC PANEL (10/10/2019 5:11 PM CDT) Only the most recent of 20 results within the time period is included. Sodium 140 137 - 147 MMOL/L [facility] MAIN LAB Potassium 3.5 3.5 - 5.1 MMOL/L [facility] MAIN LAB Chloride 104 98 - 110 MMOL/L [facility] MAIN LAB CO2 25 21 - 30 MMOL/L [facility] MAIN [facility] Anion Gap 11 3 - 12 [facility] MAIN LAB Glucose 82 70 - 100 MG/DL [facility] MAIN LAB Blood Urea 32 (H) 7 - 25 MG/DL [facility] MAIN LAB Nitrogen Creatinine 1.86 (H) 0.4 - 1.00 MG/DL [facility] MAIN LAB Calcium 7.8 (L) 8.5 - 10.6 MG/DL [facility] MAIN LAB eGFR Non 27 (L) >60 mL/min [facility] MAIN LAB Comment: Afghan The eGFR is not validated f or use in drug dosing adjustments. Continue to use estimated creatinine clearance per dosing reference text. Please contact the Clinical Pharmacist for questions. eGFR 33 (L) >60 mL/min MAIN LAB Afghan Comment: The eGFR is not validated for use in drug dosing adjustments. Continue to use estimated creatinine clearance per dosing reference text. Please contact the Clinical Pharmacist for questions. Specimen Blood Performing Organization Address City/State/Zipcode Ph one Number MAIN LAB [address] [place] [address] * HEMODIALYSIS DATE (10/10/2019 3:02 PM CDT) Narrative Performed At Sri Knutson RN 10/10/2019 5: 04 PM 1320 Pt from IR to [facility] 2 s/p lumba r puncture. Placed on telemetry with bedside monitor. VSS at this time. Consent verified, orders noted, bedside safety check complete. Pt given several warm blankets for comfort. Flat in bed s/p lumbar puncture until 1330. 1330 time out completed. Right IJ tunne led HD catheter accessed per approved procedure and then HD tx i nitiated. Tx today x 3 hours, 3K+ dialysate, 0-0.[address] Coleman here at this time. No c hange in orders at this time. Pt voices no complaints. 1700 Pt HD tx completed. Post assessmen t and VS done. No acute changes noted from pre-assessment. VSS at this time. Total UF 0.5 kgs. Report given to Tiffany RN unit [id number] * HEMODIALYSIS INPATIENT (10/10/2019 3:02 PM CDT) Narrative Performed At Sri Knutson RN 10/10/2019 5: 04 PM 1320 Pt from IR to [facility] 2 s/p lumba r puncture. Placed on telemetry with bedside monitor. VSS at this time. Consent verified, orders noted, bedside safety check complete. Pt given several warm blankets for comfort. Flat in bed s/p lumbar puncture until 1330. 1330 time out completed. Right IJ tunne led HD catheter accessed per approved procedure and then HD tx i nitiated. Tx today x 3 hours, 3K+ dialysate, 0-0.[address] Coleman here at this time. No c hange in orders at this time. Pt voices no complaints. 1700 Pt HD tx completed. Post assessmen t and VS done. No acute changes noted from pre-assessment. VSS at this time. Total UF 0.5 kgs. Report given to Tiffany RN unit [id number] * IR LUMBAR PUNCTURE (10/10/2019 12:10 PM CDT) Only the most recent of 3 results within the time period is included. Specimen Impressions Performed At Fluoroscopic guided lumbar puncture for the purposes of intrathecal [facility] RESULTS chemotherapy. Approved by Ben Gordon MD on 10/09 1:10 PM By my electronic signature, I attest th at I have personally reviewed the images for this examination and formulated the interpretations and opinions expressed in this report Finalized by Ruy Mcguire M.D. on 020 1:16 PM. Dictated by Ben Gordon MD on 10/10/2019 1:08 PM. Narrative Performed At Fluoroscopic Guided Lumbar Puncture for Intrathecal C hemotherapy [facility] RESULTS Clinical History: Lymphoma Intrathecal Chemotherapy: Administere d by the attending physician Technique/Findings: After the procedure was explained, incl uding the potential risk, benefits, and alternatives, both informed written/maribel bal consent and a brief history were obtained. The patient was brought to the fluorosc opy suite and placed on the examination table in a prone position. The lower ba ck was then prepped and draped in the usual standard sterile fashion. 2% lido idalmis was used for local anesthesia. Utilizing fluoroscopy guidance, a 22 ga uge spinal needle was advanced into the intrathecal sac at the level of L2-L3. Position was confirmed by return of cerebral spinal fluid, which was read t inted Next, approximately 4 ml of cerebral spinal fluid was collected and sent to the laboratory for requested laboratory studies. At this time, int rathecal chemotherapy was administered by the attending physician. Finally, the inner stylet was replaced, the needle was removed and adequate hemostasis was achieved. The patient tolerated procedure without complications and left the department in stable condition after appropriate marti toring. Procedure Note Interface, Radiant Results - 10/10/2019 1:19 PM CDT Fluoroscopic Guided Lumbar Puncture for Intrathecal Chemotherapy Clinical History: Lymphoma Intrathecal Chemotherapy: Administered by the attending physician Technique/Findings: After the procedure was explained, including the potential risk, benefits, and alternatives, both informed written/verbal consent and a brief history were obtained. The patient was brought to the fluoroscopy suite and placed on the examination table in a prone position. The lower back was then prepped and draped in the usual standard sterile fashion. 2% lidocaine was used for local anesthesia. Utilizing fluoroscopy guidance, a 22 gauge spinal needle was advanced into the intrathecal sac at the level of L2-L3. Position was confirmed by return of cerebral spinal fluid, which was read tinted Next, approximately 4 ml of cerebral spinal fluid was collected and sent to the laboratory for requested laboratory studies. At this time, intrathecal chemotherapy was administered by the attending physician. Finally, the inner stylet was replaced, the needle was removed and adequate hemostasis was achieved. The patient tolerated procedure without complications and left the department in stable condition after appropriate monitoring. IMPRESSION Fluoroscopic guided lumbar puncture for the purposes of intrathecal chemotherapy. Approved by Ben Gordon MD on 10/10/2019 1:10 PM By my electronic signature, I attest that I have personally reviewed the images for this examination and formulated the interpretations and opinions expressed in this report Finalized by Ruy Mcguire M.D. on 10/10/2019 1:16 PM. Dictated by Ben Gordon MD on 10/10/2019 1:08 PM. Performing Organization Address [facility] one Number [facility] * CELL COUNT W/DIFF-CSF (10/10/2019 11:54 AM CDT) Only the most recent of 3 results within the time period is included. Cell Count TUBE 3 [facility] MAIN LAB Tube,CSF White Blood 10 (H) <5 /UL [facility] MAIN LAB Cells,CSF Red Blood 2,100 /UL [facility] MAIN LAB Cells,CSF Neutrophils, 91 % [facility] MAIN LAB CSF Lymphocytes, 7 % [facility] MAIN LAB CSF Monocyte/Hisoto 2 % [facility] MAIN LAB cyte, CSF Clarity,CSF BLOODY [facility] MAIN LAB Path NEGATIVE FOR ATYPICAL [facility] MAIN LAB Interpretation, HEMATOPOIETIC CELLS CSF HEMORRHAGIC FLUID ACUTE INFLAMMATION Pathologist INTERPRETED BY FROILAN MCMULLEN MAIN L AB Signature By the PATH SIGNATURE ABOVE , I attest that I have personally formulated the final interpretation expressed in this report and that the above diagnosis is based upon my examination of the slides and/or other material indicated in this report. Specimen Cerebrospinal fluid - Cerebrospinal Fluid Performing Organization Address [facility] one Number [facility] MAIN LAB [address] [place] [address] * TOTAL PROTEIN-CSF (10/10/2019 11:54 AM CDT) Only the most recent of 3 results within the time period is included. Total 35 15 - 45 MG/DL MAIN LAB Protein,CSF Specimen Cerebrospinal fluid - Cerebrospinal Fluid Performing Organization Address [facility] one Number MAIN LAB [address] [place] [address] * GLUCOSE-CSF (10/10/2019 11:54 AM CDT) Only the most recent of 3 results within the time period is included. Glucose,CSF 92 (H) 40 - 75 MG/DL MAIN LAB Xanthochromia,C NONE MAIN LAB SF Specimen Cerebrospinal fluid - Cerebrospinal Fluid Performing Organization [facility] one Number MAIN LAB [address] [place] [address] * POC GLUCOSE (10/10/2019 11:37 AM CDT) Only the most recent of 5 results within the time period is included. Glucose, POC 133 (H) 70 - 100 MG/DL MAIN LAB Specimen Performing Organization Address [facility] one Number MAIN LAB [address] [place] [address] * URIC ACID, RASBURICASE (10/10/2019 9:20 AM CDT) Only the most recent of 3 results within the time period is included. Uric Acid, 5.0 2.0 - 7.0 mg/dL MAIN LAB Rasburicase Specimen Blood Performing Organization Address [facility] one Number MAIN LAB [address] [place] [address] * PHOSPHORUS (10/10/2019 2:20 AM CDT) Only the most recent of 18 results within the time period is included. Phosphorus 6.8 (H) 2.0 - 4.5 MG/DL MAIN LAB Specimen Blood Performing Organization Address [facility] one Number MAIN LAB [address] [place] [address] * MAGNESIUM (10/10/2019 2:20 AM CDT) Only the most recent of 14 results within the time period is included. Magnesium 2.0 1.6 - 2.6 mg/dL [facility] MAIN LAB Specimen Blood Performing Organization Address [facility] one Number MAIN LAB [address] [place] [address] * VRE SCREEN (10/09/2019 11:46 AM CDT) Only the most recent of 2 results within the time period is included. Battery Name VRE SCREEN [facility] MAIN LAB Specimen PERIRECTAL SWAB MAIN LAB Description Special NONE [facility] MAIN LAB Requests Culture NO VRE ISOLATED [facility] MAIN LAB Report Status FINAL MAIN LAB 10/11/2019 Specimen Perirectal Swab Performing Organization Address [facility] one Number MAIN LAB [address] [place] [address] * TRANSFUSE RBC'S (10/08/2019 10:20 AM CDT) Only the most recent of 2 results within the time period is included. Specimen Blood * TYPE & CROSSMATCH (10/08/2019 3:15 AM CDT) Only the most recent of 2 results within the time period is included. Units Ordered 1 MAIN LAB Crossmatch 10/11/2019,2359 [facility] MAIN LAB Expires Record Check FOUND MAIN LAB ABO/RH(D) A POS [facility] MAIN LAB Antibody Screen NEG [facility] MAIN LAB Electronic YES [facility] MAIN LAB Crossmatch Unit Number [id number] MAIN LAB Blood Component RBC,ADSOL,LEUKO REDUCED [facility] MAIN LAB Type Unit Division 0 [facility] MAIN LAB Status OF Unit DISCARDED [facility] MAIN LAB Transfusion OK TO TRANSFUSE [facility] MAIN LAB Status Crossmatch COMPATIBLE,ELECTRONIC [facility] MAIN LAB Result Unit Number [id number] MAIN LAB Blood Component RBC,ADSOL,LEUKO [facility] MAIN [facility] Type REDUCED,IRRADIATED Unit Division 0 MAIN LAB Status OF Unit TRANSFUSED [facility] MAIN LAB Transfusion OK TO TRANSFUSE [facility] MAIN LAB Status Crossmatch COMPATIBLE,ELECTRONIC MAIN LAB Result Specimen Blood Performing Organization Address [facility] one Number MAIN LAB [address] [place] [address] * HEMODIALYSIS DATE (10/07/2019 6:57 PM CDT) Narrative Performed At Anurag Hanson RN 10/07/2019 6:59 PM Hemodialysis Procedure Report Report recieved from Primary Care RN, Sergio gonzalez RN at 1230. Hemodialysis treatment performed [facility] [place] [facility].. Patient ID verified and consent signed: Yes Labs and orders reviewed: Yes Patient attached to Cardiac, NBP, SpO2 and CritLine monitoring. Tunneled Dialysis Catheter on left or r ight: Right side. Red and Blue ports accessed without difficu lty. Aspirated and flushed easily.. TX START TIME: 1435. Prescribed treatment parameters achieve d at treatment start. Patient's face uncovered and in view: Y es Lines and access secure, in view and in tact: Yes Dr. Coleman at the bedside at 1513. notified that patient on treatment and estimated time off. TX END TIME: 1806. Net UF: 1L. End Weig ht: 78.2 kg. Tunneled Hemodialysis Line flushed and packed. Red end caps placed. Report given to Primary Care RNMarcus RN at 1825. See Hemodialysis Flow Sheet and MAR for details. * HEMODIALYSIS INPATIENT (10/07/2019 6:57 PM CDT) Narrative Performed At Anurag Hanson RN 10/07/2019 6:59 PM Hemodialysis Procedure Report Report recieved from Primary Care RNSergio RN at 1230. Hemodialysis treatment performed [facility] [place] [facility] Patient ID verified and consent signed: Yes Labs and orders reviewed: Yes Patient attached to Cardiac, NBP, SpO2 and CritLine monitoring. Tunneled Dialysis Catheter on left or r ight: Right side. Red and Blue ports accessed without difficu lty. Aspirated and flushed easily.. TX START TIME: 1435. Prescribed treatment parameters achieve d at treatment start. Patient's face uncovered and in view: Y es Lines and access secure, in view and in tact: Yes Dr. Coleman at the bedside at 1513. notified that patient on treatment and estimated time off. TX END TIME: 1806. Net UF: 1L. End Weig ht: 78.2 kg. Tunneled Hemodialysis Line flushed and packed. Red end caps placed. Report given to Primary Care RNMarcus RN at 1825. See Hemodialysis Flow Sheet and MAR for details. * CSF TUBE VOLUMES (10/07/2019 1:10 PM CDT) Only the most recent of 2 results within the time period is included. CSF Tube 1 3.0 mL [facility] LAB RESULTS CSF Tube 2 3.0 mL [facility] RESULTS CSF Tube 3 2.0 mL [facility] RESULTS CSF Tube 4 0.0 mL [facility] RESULTS Specimen Performing Organization Address City/State/Zipcode Ph one Number [facility] RESULTS * FLOW CYTOMETRY (10/07/2019 1:10 PM CDT) Only the most recent of 5 results within the time period is included. PATHOLOGY [facility] [email or web address] Rubin Mcintosh MD, Director of Flow Cytometry Laboratory Department of Pathology and Laboratory Medicine [address] [place] [address] Surgical Pathology Office: [phone] FLOW CYTOMETRY REPORT NAME: SG TIM SURG PATH #: [id number] MR #: [id number] SPECIMEN CLASS: LC BILLING #: [id number] ALT ID #: LOCATION: 42 DATE OF PROCEDURE: 10/07/2019 AGE: 69 SEX: F DATE RECEIVED: 10/07/2019 : 1950 TIME RECEIVED: 15:35 PHYSICIAN: JULIAN MALLOY MD DATE OF REPORT: 10/08/2019 COPY TO: MD TOYA STANLEY DO DATE OF PRINTIN10/08/2019 Material Received: A: Cerebrospinal fluid tube 3 History: 69 year old female with a history of diffuse large B cell lymphoma ############################## ############################## ############ Final Diagnosis: Cerebrospinal fluid, flow cytometry: Negative immunophenotypic study Interpretation: Lymphocytes comprise 52% of total events. The majority are T cells. B cells are absent. There is no immunophenotypic evidence of B cell lymphoma. Attestation: By this signature, I attest that I have personally formulated the final interpretation expressed in this report and that the above diagnosis is based upon my examination of the slides and/or other material indicated in this report. +++Electronically Signed Out By+++ [facility]/10/08/2019 Interpreted by: Eloy Yin MD 10/08/2019 ############################## ############################## ############ Lab Data: Flow Cytometry - B Cell Panel B Cell Associated Markers (% Positive Cells): CD19 = 0; CD20 = 0; [place] = 0; Lambda = 0; [place]/Lambda ratio = n/a T Cell Associated Markers (% Positive Cells): CD5 = 93 Miscellaneous Markers (% Positive Cells): CD10 = 0; CD38 = 21; CD45 = 100 Cell Viability (%): qns Number of Cells Analyzed: 230 Total Number of Markers: 8 Summary of Marker Combinations: [place]/Lambda/5/19/38/45/10/20 This test was developed and its performance characteristics determined by the [facility] Flow Cytometry Laboratory. It has not been cleared or approved by the U.S. Food and Drug Administration (FDA). The FDA has determined that such clearance or approval is not necessary. Specimen Performing Organization Address [facility] one Number [facility] [address] [place] [address] * LEUKEMIA/LYMPHOMA PANEL FLUID/TISSUE (10/07/2019 1:10 PM CDT) Only the most recent of 3 results within the time period is included. Leuk/Lymph SEE PATHOLOGY REPORT [facility] Interpretation Specimen/LLM CSF [facility] Specimen Cerebrospinal Fluid Performing Organization Address [facility] Ph one Number [facility] [address] [place] [address] * CYTOLOGY FLUIDS (10/07/2019 11:30 AM CDT) Only the most recent of 2 results within the time period is included. Cytology [facility] [email or web address] Department of Pathology and Laboratory Medicine [address] [place] [id number] Surgical Pathology Office: [phone] CYTOLOGY REPORT NAME: SG TIM CYTOLOGY #: [id number] MR #: [id number] ALT ID #: CAESAR #: [id number] LOCATION: 42 DATE OF PROCEDURE: 10/07/2019 AGE: 69 SEX: F DATE RECEIVED: 10/08/2019 : 1950 TIME RECEIVED: 09:52 PHYSICIAN: JULIAN MALLOY MD DATE OF REPORT: 10/08/2019 COPY TO: TOYA VELEZ DO DATE OF PRINTIN10/08/2019 Material Received: A: Cerebrospinal Fluid History: 69-year-old female with a history of diffuse large B cell lymphoma. Gross Description: ( 1 ThinPrep) 1.5mLs of clear colorless fluid. ############################## ############################## ############ Final Diagnosis: A. Cerebrospinal Fluid: Negative for malignant cells. Please also see concurrent flow cytometry report ([id number]). Attestation: By this signature, I attest that I have personally formulated the final interpretation expressed in this report and that the above diagnosis is based upon my examination of the slides and/or other material indicated in this report. +++Electronically Signed Out By+++ /10/08/2019 Interpreted by: MD Frank Funez MD Resident Specimen Cerebrospinal Fluid Performing Organization Address City/State/Zipcode Ph one Number MAIN LAB [address] [place] [address] * CHEST SINGLE VIEW (10/07/2019 4:00 AM CDT) Specimen Impressions Performed At Further progression of mixed opacities in the left mi dlung with residual areas [facility] RESULTS of mixed opacity in the right lower lob e and partial consolidation and volume loss in the right upper lobe. Findings likely reflect progressing pneumonia superimposed on chronic interstitial jaime ng disease. Small bilateral pleural effusions. Finalized by Hesham Dias M.D. on 2019 7:49 AM. Dictated by Hesham Dias M.D. on 10/07/2019 7:47 AM. Narrative Performed At CHEST SINGLE VIEW [facility] RESULTS History: increasing oxygen requirements. Technique: Single portable AP upright view of the chest was obtained. Comparison: Comparison is made to an examination of 10/02/2019. Findings: There has been interval placement of a left jugular Vsnrfd-o-Rhud catheter. The multilumen right jugular venous line is unchanged in position. Both lines have their tips at the level of the low SVC. Cardiac size and configuration are stab le. There has been progression of the mixed opacities in the left midlung. Th e areas of consolidation and volume loss in the right upper lobe have shown no s ignificant change. There are stable mixed opacities in the right lower lobe. Smal l bilateral pleural effusions are noted. Procedure Note Interface, Radiant Results - 10/07/2019 7:52 AM CDT CHEST SINGLE VIEW History: increasing oxygen requirements. Technique: Single portable AP upright view of the chest was obtained. Comparison: Comparison is made to an examination of 10/02/2019. Findings: There has been interval placement of a left jugular Xavure-v-Hekv catheter. The multilumen right jugular venous line is unchanged in position. Both lines have their tips at the level of the low SVC. Cardiac size and configuration are stable. There has been progression of the mixed opacities in the left midlung. The areas of consolidation and volume loss in the right upper lobe have shown no significant change. There are stable mixed opacities in the right lower lobe. Small bilateral pleural effusions are noted. IMPRESSION Further progression of mixed opacities in the left midlung with residual areas of mixed opacity in the right lower lobe and partial consolidation and volume loss in the right upper lobe. Findings likely reflect progressing pneumonia superimposed on chronic interstitial lung disease. Small bilateral pleural effusions. Finalized by Hesham Dias M.D. on 10/07/2019 7:49 AM. Dictated by Hesham Dias M.D. on 10/07/2019 7:47 AM. Performing Organization Address City/State/Zipcode Ph one Number [facility] RESULTS * LIVER FUNCTION PANEL (10/06/2019 4:15 AM CDT) Only the most recent of 2 results within the time period is included. Total Bilirubin 0.4 0.3 - 1.2 MG/DL [facility] MAIN LAB Bilirubin, 0.1 <0.4 MG/DL [facility] Direct Albumin 2.7 (L) 3.5 - 5.0 G/DL [facility] Alk Phosphatase 155 (H) 25 - 110 U/L [facility] AST (SGOT) 39 7 - 40 U/L [facility] ALT (SGPT) 21 7 - 56 U/L [facility] Total Protein 5.6 (L) 6.0 - 8.0 G/DL [facility] Specimen Performing Organization Address City/[facility] Ph one Number [facility] [address] [place] [address] * COVID-19 (SARS-COV-2) PCR (10/05/2019 12:17 PM CDT) Only the most recent of 2 results within the time period is included. COVID-19 NASOPHARYNGEAL SWAB [facility] (SARS-CoV-2) PCR Source COVID-19 NOT DETECTED DN-NOT DETECTED [facility] (SARS-CoV-2) Comment: PCR This assay is designed to detect the S and/or ORF1ab genes of SARS-CoV-2 using nucleic acid amplification. A "Not Detected" result does not preclude the possibility of SARS-CoV-2 infection since the adequacy of sample collection and/or low viral burden may result in the presence of viral nucleic acids below the analytical sensitivity of this test method. Test results should be used along with other clinical and laboratory data in making the diagnosis. Test parameters have not been validated for screening in asymptomatic patients.This test has not been FDA cleared or approved. This test is authorized for use under the FDA Emergency Use Authorization and performance characteristics have been verified by the [facility]. Fact sheet for providers: https://www.fda.gov/media/7069 85/download Fact sheet for patients: https://www.fda.gov/media/6016 87/download Specimen Nasopharyngeal Swab Performing Organization Address City/[facility] one Number [facility] [address] [place] [address] * HEMODIALYSIS DATE (10/05/2019 8:59 AM CDT) Narrative Performed At Nette Rosa RN 10/05/2019 11 :34 AM 0610: Report received from primary nurs e, Josr, RN 0640: Arrived per bed to dialysis. Awak e, alert. ID and consent verified. Attached to cardiac, BP and o ximetry monitors. Right tunneled CVC accessed, aspirates and fl ushes without difficulty. 0653: Dialysis started. Ordered blood f low easily attained. Discussed effects of urea. Agrees that she has a persistent "bad taste" in her mouth. 0730: Watching TV 0830: Dr Carlos at bedside. 0835: Turned to left side for comfort 0955: Dr Coleman here, updated. 1055: Dialysis complete. Blood returned with NS rinse. CVC care completed. 1115: Returned to room per bed with O2 on. 1120: Report called to primary nurse, Mayo miguel RN * HEMODIALYSIS INPATIENT (10/05/2019 8:59 AM CDT) Narrative Performed At Nette Rosa RN 10/05/2019 11 :34 AM 0610: Report received from primary nurs Josr monzon RN 0640: Arrived per bed to dialysis. Awak e, alert. ID and consent verified. Attached to cardiac, BP and o ximetry monitors. Right tunneled CVC accessed, aspirates and fl ushes without difficulty. 0653: Dialysis started. Ordered blood f low easily attained. Discussed effects of urea. Agrees that she has a persistent "bad taste" in her mouth. 0730: Watching TV 0830: Dr Carlos at bedside. 0835: Turned to left side for comfort 0955: Dr Coleman here, updated. 1055: Dialysis complete. Blood returned with NS rinse. CVC care completed. 1115: Returned to room per bed with O2 on. 1120: Report called to primary nurse, Mayo miguel RN * BONE MARROW (10/04/2019 9:44 AM CDT) PATHOLOGY [facility] [employer] [email or web address] Department of Pathology and Laboratory Medicine [address] [place] [id number] Surgical Pathology Office: [phone] SURGICAL PATHOLOGY REPORT NAME: SG TIM SURG PATH #: [id number] MR #: [id number] ALT ID #: LOCATION: DATE OF PROCEDURE: 10/04/2019 AGE: 69 SEX: F DATE RECEIVED: 10/04/2019 : 1950 TIME RECEIVED: 09:44 PHYSICIAN: TORO CARRION DATE OF REPORT: 10/07/2019 COPY TO: DATE OF PRINTIN10/07/2019 ############################## ############################## ############ Final Diagnosis: Bone marrow, left iliac crest, aspirate, biopsy, clot, and touch prep: Normocellular marrow (30-40%) with trilineage hematopoiesis, increased storage iron, 3% plasma cells and <1% blasts. Negative for morphologic or phenotypic evidence of lymphoma. Peripheral blood smear: Severe normocytic anemia. Attestation: By this signature, I attest that I have personally formulated the final interpretation expressed in this report and that the above diagnosis is based upon my examination of the slides and/or other material indicated in this report. bm/10/04/2019 Material Received: A: left bone marrow clot B: left bone marrow biopsy History: 69-year-old female with a recent diagnosis of diffuse large B-cell lymphoma. Gross Description: A. Received in Zinc formalin labeled "left bone marrow clot" is a 4.0 x 1.3 x 0.5 cm aggregate of friable red-brown clotted blood elements. The specimen is serially sectioned and entirely submitted in cassettes A1-A2. (cg) B. Received in Zinc formalin labeled "left bone marrow biopsy" is a 2.6 cm in length and 0.2 cm in diameter cylindrical, yellow-hoffmann firm piece of tissue. The specimen is submitted in cassette B1 after decalcification. (cg) cg/10/04/2019 Microscopic Description: CBC Data: HGB 7.8 (g/dL); RBC 2.57 (m/uL); MCV 89.6 (FL); RDW 13.3 (%); WBC 8.5 (k/uL); PLT 244 (k/uL). Blood Smear Diff (%): Segmented neutrophils 78; band neutrophils 4; lymphocytes 17; eosinophils 1 Blood Smear Morphology: RBC: Severe normochromic anemia; negative for increase in schistocytes WBC: Normal Platelets: Normal Bone Marrow Aspirate/Touch Prep Morphology: Aspirate Adequacy: Adequate Touch Prep Adequacy: Adequate Cellularity: Normal Megakaryocytes: Normal Blasts: Normal Erythroid: Normal Granulocytes: Normal to mildly increased Lymphocytes: Normal Plasma Cells: Normal Bone Marrow Differential Cell Count (%): Blasts: <1 Promyelocytes: 3 Myelocytes: 5 Metamyelocytes: 15 Segs/Bands: 44 Eosinophils: 1 Erythroid: 22 Monocytes: 2 Lymphocytes: 4 Plasma cells: 4 M:E ratio: 3.04 Bone Marrow Core Biopsy: Adequacy: Adequate Length: 0.7, 0.3, 0.3, 0.2 cm Cellularity: 30-40% Megakaryocytes: Normal Hematopoiesis: Resembles aspirate smear / touch prep Atypical Infiltrates: None Bone Marrow Cell Clot: Adequacy: Adequate Cellularity: 30-40% Findings: Similar to core biopsy Additional Stains: Iron Stain: Iron stain on the aspirate smear shows increased storage iron (4-5/6), decreased sideroblast iron, and no ring sideroblasts. Immunohistochemistry: Not performed Chromogenic In Situ Hybridization: Not performed Other Special Stains: Not performed Ancillary Studies: Flow Cytometry: Performed, see separate report, [id number], which reports no phenotypic evidence of a lymphoproliferative disorder. Flow cytometry detected a small population (0.01%) of polyclonal plasma cells. Cytogenetics: Performed, see separate report Fluorescence In Situ Hybridization: Not performed Molecular Genetics: Not performed Preliminary Diagnosis: Not performed If immunohistochemical stains and/or in situ hybridization are cited in this report, the performance characteristics were determined by the Department of Pathology and Laboratory Medicine of the [facility] ([employer]) in compliance with CLIA'88 regulations. Some of these tests rely on the use of "analyte specific reagents" and are subject to specific labeling requirements by the FDA. Known positive and negative control tissues demonstrate appropriate staining. Results should be interpreted with caution given the likelihood of false negativity on decalcified specimens. This testing was developed by the Department of Pathology and Laboratory Medicine of the [facility]. It has not been cleared or approved by the FDA. The FDA has determined that such clearance or approval is not necessary. Specimen Performing Organization Address City/State/Zipcode Ph one Number [facility] [address] [place] [address] * IR CENTRAL VENOUS CATHETER (10/04/2019 9:21 AM CDT) Only the most recent of 2 results within the time period is included. Specimen Impressions Performed At Ultrasound and fluoroscopic guidance fo r left 8 Qatari chest port placement, as [facility] described. IJonathan M.D, the attendi radiologist, was present for the critical and ruiz portions of the proced ure with an advanced practice provider, resident, and/or fellow participating. Overlapping portions were non ruiz and I was immediately available. I interpre t the critical and ruiz portion of this procedure to have been the procedural t miguel angel out and needle access. @TT Approved by George Mckinney D.O. on 10/03 10:00 AM By my electronic signature, I attest th at I have personally reviewed the images for this examination and formulated the interpretations and opinions expressed in this report Finalized by Jonathan Shirley M.D. on 10:30 AM. Dictated by George Mckinney D.O. on 10/04/2019 9:57 AM. Narrative Performed At Ultrasound and fluoroscopic guided placement of leftc hest port [facility] Clinical Indication: Diffuse large B-ce ll lymphoma, need for chemotherapy GAUGE INSPECTOR: George Mckinney D.O. and Shane Shirley M.D. Medications: Versed 1mg IV, Fentanyl 12 5mcg IV, heparin 1000:1 4 mL, and lidocaine with epinephrine Sedation Medication: I was tiffany pierre responsible for the administration of moderate sedation services during the p rocedure performed and I confirm requirements described in CPT section o n moderate sedation were followed, including the use of an independent tra ined observer who had no other duties during the procedure. See nursing log for complete details; the drugs utilized were Versed and fentanyl. Total fluoroscopic dose: 4 mGy Technique/findings: After explaining the risks, benefits, a lternatives, and expected outcomes of the procedure, a brief history and formal w ritten and verbal consent were obtained from the patient and placed in the monika rd. The patient was taken to the fluoroscopy suite and placed on the flu oroscopic table in a supine position. The leftneck and upper chest were prepped a nd draped in the usual standard sterile fashion. Using ultrasound guidance, the inferior aspect of the right internal jugular vein was identified and hardcop y ultrasound images were obtained. The overlying skin was infiltrated with 2% lidocaine for local anesthetic. Under ultrasound guidance, the leftinternal j ugular vein was accessed with a micropuncture needle and a 0.018 wire w as advanced into the superior vena cava. The needle was removed and a 4 Qatari t ransitional sheath was placed. The desired catheter length was measured, a nd the wire and inner dilator were removed. An Amplatz wire was advanced u nder fluoroscopic guidance into the inferior vena cava. The leftupper chest was then infiltrate d with lidocaine with epinephrine to obtain local anesthetic. A 2 cm incisio n was then made using a 15 blade. Blunt dissection was used to make a pouch in the leftupper lateral chest for the port. Once a subcutaneous pouch had been made , a tunneling device was then used to tunnel the 8 Qatari catheter to the lef tIJ puncture site. The catheter was cut to the appropriate length. A peel-away sheath was then inserted over the Amplatz wire and the Amplatz wire was retracted . The catheter was inserted through the peel-away sheath. The sheath was peeled away and the catheter was positioned and checked with fluoroscopy. The tip was s hown to be near the junction of the right atrium and SVC. The port incision was t hen closed with 4 deep subcutaneous block stitches and a running subcuticular sti tch utilizing 2-0 Vicryl. The leftneck puncture site was closed with Dermabond . The patient tolerated the procedure wel l and left the department in stable condition. Procedure Note Interface, Radiant Results - 10/04/2019 10:33 AM CDT Ultrasound and fluoroscopic guided placement of leftchest port Clinical Indication: Diffuse large B-cell lymphoma, need for chemotherapy GAUGE INSPECTOR: George Mckinney D.O. and Jonathan Shirley M.D. Medications: Versed 1mg IV, Fentanyl 125mcg IV, heparin 1000:1 4 mL, and lidocaine with epinephrine Sedation Medication: I was personally responsible for the administration of moderate sedation services during the procedure performed and I confirm requirements described in CPT section on moderate sedation were followed, including the use of an independent trained observer who had no other duties during the procedure. See nursing log for complete details; the drugs utilized were Versed and fentanyl. Total fluoroscopic dose: 4 mGy Technique/findings: After explaining the risks, benefits, alternatives, and expected outcomes of the procedure, a brief history and formal written and verbal consent were obtained from the patient and placed in the record. The patient was taken to the fluoroscopy suite and placed on the fluoroscopic table in a supine position. The leftneck and upper chest were prepped and draped in the usual standard sterile fashion. Using ultrasound guidance, the inferior aspect of the right internal jugular vein was identified and hardcopy ultrasound images were obtained. The overlying skin was infiltrated with 2% lidocaine for local anesthetic. Under ultrasound guidance, the leftinternal jugular vein was accessed with a micropuncture needle and a 0.018 wire was advanced into the superior vena cava. The needle was removed and a 4 Qatari transitional sheath was placed. The desired catheter length was measured, and the wire and inner dilator were removed. An Amplatz wire was advanced under fluoroscopic guidance into the inferior vena cava. The leftupper chest was then infiltrated with lidocaine with epinephrine to obtain local anesthetic. A 2 cm incision was then made using a 15 blade. Blunt dissection was used to make a pouch in the leftupper lateral chest for the port. Once a subcutaneous pouch had been made, a tunneling device was then used to tunnel the 8 Qatari catheter to the leftIJ puncture site. The catheter was cut to the appropriate length. A peel-away sheath was then inserted over the Amplatz wire and the Amplatz wire was retracted. The catheter was inserted through the peel-away sheath. The sheath was peeled away and the catheter was positioned and checked with fluoroscopy. The tip was shown to be near the junction of the right atrium and SVC. The port incision was then closed with 4 deep subcutaneous block stitches and a running subcuticular stitch utilizing 2-0 Vicryl. The leftneck puncture site was closed with Dermabond. The patient tolerated the procedure well and left the department in stable condition. IMPRESSION Ultrasound and fluoroscopic guidance for left 8 Qatari chest port placement, as described. Jonathan Pinto M.D, the attending radiologist, was present for the critical and ruiz portions of the procedure with an advanced practice provider, resident, and/or fellow participating. Overlapping portions were non ruiz and I was immediately available. I interpret the critical and ruiz portion of this procedure to have been the procedural time out and needle access. @TT Approved by George Mckinney D.O. on 10/04/2019 10:00 AM By my electronic signature, I attest that I have personally reviewed the images for this examination and formulated the interpretations and opinions expressed in this report Finalized by Jonathan Sihrley M.D. on 10/04/2019 10:30 AM. Dictated by George Mckinney D.O. on 10/04/2019 9:57 AM. Performing Organization Address City/State/Zipcode Ph one Number [facility] * IR BONE MARROW BIOPSY (10/04/2019 9:21 AM CDT) Specimen Impressions Performed At Successful fluoroscopically guided bone marrow aspira te and bone marrow biopsy [facility] as described. Pathologic interpretation pending. Finalized by Jonathan Shirley M.D. on 9:06 AM. Dictated by Jonathan Shirley M.D. on 10/05/2019 9:06 AM. Narrative Performed At Bone marrow aspiration, bone marrow biopsy with imagi ng guidance: [facility] History: Diffuse large B-cell lymphoma. Technique and Findings: The procedure including risks, alternat henry and benefits was explained to the patient. The patient provided written a nd verbal consent. The patient was placed prone on the exam table. The pelvis was prepped in and draped sterilely. 1% lidocaine was used to anesthetize the l ocal soft tissues. First a 13-gauge bone biopsy trocar was advanced from the ski n into the left posterior superior iliac spine under fluoroscopic guidance. The trocar was advanced through the cortex into the marrow space. A series of 3 oseas ne marrow aspirates were obtained and immediately given to a bone marrow tech nologist for analysis. The technologist indicated that the sample was of adequa te diagnostic quality. Next core sample(s) was obtained with a 13-gauge core needle. The samples were withdrawn and given to the bone marrow technologi st for direct visualization and adequacy. The technologist indicated that the carmina ple was of adequate diagnostic quality. The needles were withdrawn. Pressure wa s applied on the left posterior superior iliac spine for 5 minutes. Hemostasis w as achieved. A sterile dressing was applied. The patient tolerated procedur e well and left department in stable condition. Total absorbed x-ray dose: 1 mGy Sedation Medication: I was tiffany pierre responsible for the administration of moderate sedation services during the p rocedure performed and I confirm requirements described in CPT section o n moderate sedation were followed, including the use of an independent tra ined observer who had no other duties during the procedure. See nursing lo g for complete details and amounts given; the drugs utilized were IV Versed and F entanyl. Procedure Note Interface, Radiant Results - 10/05/2019 10:05 AM CDT Bone marrow aspiration, bone marrow biopsy with imaging guidance: History: Diffuse large B-cell lymphoma. Technique and Findings: The procedure including risks, alternatives and benefits was explained to the patient. The patient provided written and verbal consent. The patient was placed prone on the exam table. The pelvis was prepped in and draped sterilely. 1% lidocaine was used to anesthetize the local soft tissues. First a 13-gauge bone biopsy trocar was advanced from the skin into the left posterior superior iliac spine under fluoroscopic guidance. The trocar was advanced through the cortex into the marrow space. A series of 3 bone marrow aspirates were obtained and immediately given to a bone marrow technologist for analysis. The technologist indicated that the sample was of adequate diagnostic quality. Next core sample(s) was obtained with a 13-gauge core needle. The samples were withdrawn and given to the bone marrow technologist for direct visualization and adequacy. The technologist indicated that the sample was of adequate diagnostic quality. The needles were withdrawn. Pressure was applied on the left posterior superior iliac spine for 5 minutes. Hemostasis was achieved. A sterile dressing was applied. The patient tolerated procedure well and left department in stable condition. Total absorbed x-ray dose: 1 mGy Sedation Medication: I was personally responsible for the administration of moderate sedation services during the procedure performed and I confirm requirements described in CPT section on moderate sedation were followed, including the use of an independent trained observer who had no other duties during the procedure. See nursing log for complete details and amounts given; the drugs utilized were IV Versed and Fentanyl. IMPRESSION Successful fluoroscopically guided bone marrow aspirate and bone marrow biopsy as described. Pathologic interpretation pending. Finalized by Jonathan Shirley M.D. on 10/05/2019 9:06 AM. Dictated by Jonathan Shirley M.D. on 10/05/2019 9:06 AM. Performing Organization Address City/State/Zipcode Ph one Number [facility] * LEUKEMIA/LYMPHOMA PNL, BONE MARROW (10/04/2019 9:20 AM CDT) Leuk/Lymph SEE PATHOLOGY REPORT [facility] Interpretation Specimen/LLM BONE MARROW [facility] Specimen Bone Marrow Performing Organization Address City/[facility] Ph one Number [facility] [address] [place] [address] * CHROMOSOMES BONE MARROW (10/04/2019 9:20 AM CDT) Chromosomes Cytogenetics Report Available [facility]IN LAB Bone Marrow in Epic Specimen Bone Marrow Narrative Performed At This result has an attachment that is n ot available. Performing Organization Address City/[facility] Ph one Number [facility] [address] [place] [address] * FE STAIN (10/04/2019 9:20 AM CDT) Bone Marrow FE SEE PATHOLOGY REPORT MAIN LAB Specimen Bone Marrow - Bone Marrow Performing Organization Address City[facility] Ph one Number [facility] [address] [place] [address] * BONE MARROW ASP (10/04/2019 9:20 AM CDT) Bone Marrow Asp SEE PATHOLOGY REPORT MAIN LAB Specimen Bone Marrow - Bone Marrow Performing Organization Address [facility] Ph one Number [facility] [address] [place] [address] * BONE MARROW BIOPSY (10/04/2019 9:20 AM CDT) Bone Marrow Bx SEE PATHOLOGY REPORT MAIN LAB Specimen Bone Marrow - Bone Marrow Performing Organization Address City/[facility] Ph one Number [facility] [address] [place] [address] * MANUAL DIFF (10/04/2019 6:54 AM CDT) Segmented 78 (H) 41 - 77 % MAIN LAB Neutrophils Lymphocytes 4 (L) 24 - 44 % MAIN LAB Monocytes 17 (H) 4 - 12 % MAIN LAB Eosinophil 1 0 - 5 % MAIN LAB Platelet NORMAL MAIN LAB Estimate RBC Morph POLY [facility]IN [facility] [place] Specimen Performing Organization Address City/[facility] Ph one Number [facility] [address] [place] [address] * NM PET SCAN WHOLEBODY (HEAD-TOES) (10/03/2019 4:39 PM CDT) Specimen Impressions Performed At Hypermetabolic michael, extensive extranodal (including pulmonary, hepatic, [facility] adrenal, renal, gastric, and pancreatic ), 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 on 09/11 5:32 AM. Dictated by Maximilian Osorio M.D. on 10/03/2019 5:12 PM. Narrative Performed At GA PET SCAN WHOLE BODY (HEAD-TOES) [facility] Radiopharmaceutical: 10.7 mCi F-18 Fluo rodeoxyglucose (FDG) IV. Clinical Indication: Initial staging of lymphoma. Technique: PET imaging was performed fr om the vertex to the dose 60 minutes after tracer administration. Low dose n on-contrast CT imaging was performed for attenuation correction and localization purposes. Current mean hepatic SUV (reported for quality tester purposes) is 2.1. Blood glucose level (at the time of rad iopharmaceutical administration): 94 mg/dL Comparison: Recent CT chest and abdomen /pelvis. FINDINGS: Lymph Nodes: Hypermetabolic mediastinal (greatest posteriorly and anterior diaphragmatic), hilar, and abdominal ly mphadenopathy. Spleen: Unremarkable. Marrow: Hypermetabolic lesions within t he lumbar spine and bilateral pelvis. Contiguous hypermetabolic soft tissue t hickening extending anterior to the L5 vertebral body and along the left super ior presacral space to involve the left S1 neural foramen. Additional small hyp ermetabolic focus within the cervical spine. Other/Extranodal: Extensive patchy hype rmetabolism involving both lungs and liver with involvement of the stomach a nd pancreas to a lesser degree. Bilateral hypermetabolic enlargement of the adren al glands. Hypermetabolic renomegaly with hypermetabolic soft tissue thickening e ncasing both kidneys, within the renal sinuses and extending along the hyperme tabolism along the right ureter, incompletely evaluated due to excreted urinary activity. Additional ill-defined hypermetabolic thickening about the gal lbladder fundus. Small FDG avid focus along the posterior left scalp. Hyperme tabolism along the lower right uterus. Extremities: No suspicious hypermetabol ic lesion(s). Additional CT Findings: See recent CT e xaminations. Trace pleural effusions. Procedure Note Interface, Radiant Results - 10/04/2019 5:35 AM CDT NM PET SCAN WHOLE BODY (HEAD-TOES) Radiopharmaceutical: 10.7 mCi F-18 Fluorodeoxyglucose (FDG) IV. Clinical Indication: Initial staging of lymphoma. Technique: PET imaging was performed from the vertex to the dose 60 minutes after tracer administration. Low dose non-contrast CT imaging was performed for attenuation correction and localization purposes. Current mean hepatic SUV (reported for quality tester purposes) is 2.1. Blood glucose level (at the time of radiopharmaceutical administration): 94 mg/dL Comparison: Recent CT chest and abdomen/pelvis. FINDINGS: Lymph Nodes: Hypermetabolic mediastinal (greatest posteriorly and anterior diaphragmatic), hilar, and abdominal lymphadenopathy. Spleen: Unremarkable. Marrow: Hypermetabolic lesions within the lumbar spine and bilateral pelvis. Contiguous hypermetabolic soft tissue thickening extending anterior to the L5 vertebral body and along the left superior presacral space to involve the left S1 neural foramen. Additional small hypermetabolic focus within the cervical spine. Other/Extranodal: Extensive patchy hypermetabolism involving both lungs and liver with involvement of the stomach and pancreas to a lesser degree. Bilateral hypermetabolic enlargement of the adrenal glands. Hypermetabolic renomegaly with hypermetabolic soft tissue thickening encasing both kidneys, within the renal sinuses and extending along the hypermetabolism along the right ureter, incompletely evaluated due to excreted urinary activity. Additional ill-defined hypermetabolic thickening about the gallbladder fundus. Small FDG avid focus along the posterior left scalp. Hypermetabolism along the lower right uterus. Extremities: No suspicious hypermetabolic lesion(s). Additional CT Findings: See recent CT examinations. Trace pleural effusions. IMPRESSION Hypermetabolic michael, extensive extranodal (including pulmonary, hepatic, adrenal, renal, gastric, and pancreatic), 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 on 10/04/2019 5:32 AM. Dictated by Maximilian Osorio M.D. on 10/03/2019 5:12 PM. Performing Organization Address [facility] one Number [facility] RAD RESULTS * HEMODIALYSIS INPATIENT (10/03/2019 8:20 AM CDT) Narrative Performed At Funmilayo Monreal RN 10/03/19 20 11:17 AM Hemodialysis Procedure Report Report recieved from Primary Care RNSolange RN at 0703. Hemodialysis treatment performed [facility] [place] [facility].. Patient ID verified and consent signed: Yes Labs and orders reviewed: Yes Patient attached to Cardiac, NBP, SpO2 and CritLine monitoring. Non Tunneled Dialysis Catheter on left or right: Right side. Red and Blue ports accessed without dif ficulty. Aspirated and flushed easily.. TX START TIME: 0750. Prescribed treatment parameters achieve d at treatment start. Patient's face uncovered and in view: Y es Lines and access secure, in view and in tact: Yes Dr. Coleman notified at 0821that patient on treatment and estimated time off. TX END TIME: 1050. Net UF: 2.0L. End We ight: 69.9 kg. Blood was returned to the patient. Patient tolerated treatment well Tunneled Hemodialysis Line flushed and packed. Red end caps placed. Report given to Primary Care RNLaly ,ROLAND at 1117. See Hemodialysis Flow Sheet and MAR for details. * HEMODIALYSIS DATE (10/02/2019 2:40 PM CDT) Narrative Performed At Crispin Mata RN 10/02/2019 4 :49 PM Report received from Primary Care RNKarine at 1215. Pt [facility]/c [facility] to nbp, oxcemitry, and cardiac monitoring. Pt ID Verified with Jessie WATKINS. Signed co nsent in the chart. Labs and Orders Reviewed. Access Used: RIJ tunneled HD catheter. TX START TIME: 1345. UF Profile use d: 0. Bath used: 2K. Prescribed treatment parameters achieve d. Lines and access secure In view and int act. Face uncovered and in view. Dr. Coleman notified at 1445 that patien t on treatment and estimated time off. 1500 Dr Coleman and the rest of the team were at bedside, new instruction was to increased the UF to 1.5Ls. TX END TIME: 1615. Net UF: 1.526ml. End Weight: 75.1kgs. Blood rinsed back post tx. Pt tolerated the treatment well. Pt without complaint post treatment. RIJ tunneled HD catheter was flushed wi th NS, packed with NS then red curos caps applied. Report given to Primary Care ROLAND Forte, At around 1645. Pt placed in transportation at 1600 and left unit at 1640 via w/c. See Dialysis Flowsheet and MAR for deta ils. * HEMODIALYSIS INPATIENT (10/02/2019 2:40 PM CDT) Narrative Performed At Crispin Mata RN 10/02/2019 4 :49 PM Report received from Primary Care Karine WATKINS at 1215. Pt arrived via w/c from [facility] and [facility] to nbp, oxcemitry, and cardiac monitoring. Pt ID Verified with Jessie WATKINS. Signed co nsent in the chart. Labs and Orders Reviewed. Access Used: RIJ tunneled HD catheter. TX START TIME: 1345. UF Profile use d: 0. Bath used: 2K. Prescribed treatment parameters achieve d. Lines and access secure In view and int act. Face uncovered and in view. Dr. oCleman notified at 1445 that patien t on treatment and estimated time off. 1500 Dr Coleman and the rest of the team were at bedside, new instruction was to increased the UF to 1.5Ls. TX END TIME: 1615. Net UF: 1.526ml. End Weight: 75.1kgs. Blood rinsed back post tx. Pt tolerated the treatment well. Pt without complaint post treatment. RIJ tunneled HD catheter was flushed wi th NS, packed with NS then red curos caps applied. Report given to Primary Care ROLAND Forte, At around 1645. Pt placed in transportation at 1600 and left unit at 1640 via w/c. See Dialysis Flowsheet and MAR for deta ils. * HEMODIALYSIS INPATIENT (10/02/2019 2:40 PM CDT) Narrative Performed At Crispin Mata RN 10/02/2019 4 :49 PM Report received from Primary Care Karine WATKINS at 1215. Pt arrived [facility]/c [facility] to nb, oxcemitry, and cardiac monitoring. Pt ID Verified with Jessie WATKINS. Signed co nsent in the chart. Labs and Orders Reviewed. Access Used: RIJ tunneled HD catheter. TX START TIME: 1345. UF Profile use d: 0. Bath used: 2K. Prescribed treatment parameters achieve d. Lines and access secure In view and int act. Face uncovered and in view. Dr. Coleman notified at 1445 that patien t on treatment and estimated time off. 1500 Dr Coleman and the rest of the team were at bedside, new instruction was to increased the UF to 1.5Ls. TX END TIME: 1615. Net UF: 1.526ml. End Weight: 75.1kgs. Blood rinsed back post tx. Pt tolerated the treatment well. Pt without complaint post treatment. RIJ tunneled HD catheter was flushed wi th NS, packed with NS then red curos caps applied. Report given to Primary Care RN Reanna, At around 1645. Pt placed in transportation at 1600 and left unit at 1640 via w/c. See Dialysis Flowsheet and MAR for deta ils. * CHEST 2 VIEWS (10/02/2019 1:24 PM CDT) Only the most recent of 2 results within the time period is included. Specimen Impressions Performed At 1. Increased patchy bilateral opacities, most prono unced in the right upper K[facility] RAD RESULTS and left midlung. These findings could reflect worsening acute exacerbation of underlying interstitial lung disease ve rsus multifocal pneumonia. Follow-up chest radiographs suggested. 2. Small bilateral pleural effusions. By my electronic signature, I attest th at I have personally reviewed the images for this examination and formulated the interpretations and opinions expressed in this report Finalized by Nikole Jacobs 10/02/2019 2:32 PM. Dictated by Trevin Quiros M.D. on 10/02/2019 2:02 PM. Narrative Performed At CHEST 2 VIEWS K[facility] RAD RESULTS INDICATION: hypoxia COMPARISON STUDY: CT chest and chest ra diographs 09/24/2019 FINDINGS: Life-support devices: Interval placemen t of large bore right IJ central venous catheter. Lungs: Increasing patchy bilateral opac ities, greatest in the right upper and left midlung, superimposed on a backgro und of fibrosis. Pleura: Small bilateral pleural effusio ns. No pneumothorax. Heart and Mediastinum: Stable heart and mediastinum. Bones: Lower cervical fusion hardware i s partially visualized. Stable regional skeleton. Procedure Note Interface, Radiant Results - 10/02/2019 2:35 PM CDT CHEST 2 VIEWS INDICATION: hypoxia COMPARISON STUDY: CT chest and chest radiographs 09/24/2019 FINDINGS: Life-support devices: Interval placement of large bore right IJ central venous catheter. Lungs: Increasing patchy bilateral opacities, greatest in the right upper and left midlung, superimposed on a background of fibrosis. Pleura: Small bilateral pleural effusions. No pneumothorax. Heart and Mediastinum: Stable heart and mediastinum. Bones: Lower cervical fusion hardware is partially visualized. Stable regional skeleton. IMPRESSION 1. Increased patchy bilateral opacities , most pronounced in the right upper and left midlung. These findings could reflect worsening acute exacerbation of underlying interstitial lung disease versus multifocal pneumonia. Follow-up chest radiographs suggested. 2. Small bilateral pleural effusions. By my electronic signature, I attest that I have personally reviewed the images for this examination and formulated the interpretations and opinions expressed in this report Finalized by Eric Brennan M.D. on 10/02/2019 2:32 PM. Dictated by Trevin Quiros M.D. on 10/02/2019 2:02 PM. Performing Organization Address [facility] one Number RAD RESULTS * HIV-1/2 ANTIGEN/ANTIBODY SCREEN (10/02/2019 6:10 AM CDT) [facility] HIV 1 and 2 AG Non-Reactive: Negative for [id number]: [facility] AB Screen HIV-1 Ag and HIV-1/2 specific Negative for HIV-1 antibodies. Ag and HIV-1/2 specif Specimen Performing Organization [facility] one Number MAIN LAB [address] [place] [address] * HEPATITIS C AB (10/02/2019 6:10 AM CDT) [facility] Anti HCV Non-Reactive: Antibodies to ZQZHI-Gkm-Dwijbotp : [facility] HCV were not detected. Antibodies to HCV were not detected. Specimen Performing Organization Address [facility] one Number [facility] [address] [place] [address] * HEPATITIS B CORE AB TOT (IGG+IGM) (10/02/2019 6:10 AM CDT) [facility] Anti HBc Total Non-Reactive: Antibodies to ZBRGQ-Fzc-Wtmnzhbj : [facility] HBV core antigen Antibodies to HBV (anti-HBc)were not detected. core antigen (anti-HBc Specimen Performing Organization Address [facility] one Number [facility] MAIN LAB [address] [place] [address] * HEPATITIS B SURFACE AG (10/02/2019 6:10 AM CDT) Pathologist [facility] HBsAg Non-Reactive: HBs antigen not JJYS-Evv-Nfohinq e: [facility] MAIN LAB detected HBs antigen not detected Specimen Performing Organization Address [facility] one Number MAIN LAB [address] [place] [address] * BNP (B-TYPE NATRIURETIC PEPTI) (10/02/2019 6:10 AM CDT) Pathologist [facility] B Type 420.0 (H) 0 - 100 PG/ML [facility] MAIN LAB Natriuretic Peptide Specimen Performing Organization Address [facility] one Number MAIN LAB [address] [place] [address] * BETA 2 MICROGLOBULIN (10/02/2019 6:10 AM CDT) Pathologist [facility] B2 29.7 (H) REFERENCE LAB Microglobulin Comment: Reference range: 1.1 to 2.4 Unit: mg/L Performed By: [employer] [address] [place] [id number] Wire Coiler: Lakhwinder Zepeda MD, MS Specimen Performing Organization Address [facility] one Number REFERENCE LAB REFERENCE LAB See results for address. * HEMODIALYSIS DATE (10/01/2019 5:33 PM CDT) Narrative Performed At Brandi Greco RN 10/01/2019 6:39 P M Pt [facility] Dialysis bay 3 [facility], placed on gambling monitor, Rt SC CVC accessed and tx initiated per Dr mobley. Report from floor RN. UFG 1 L Pt tolerated tx well, 1L NET UF, Repo rt called to floor RN * CBC (10/01/2019 3:30 PM CDT) Only the most recent of 4 results within the time period is included. Pathologist [facility] White Blood 9.6 4.5 - 11.0 K/UL K[facility] MAIN LAB Cells RBC 2.38 (L) 4.0 - 5.0 M/UL [facility] MAIN LAB Hemoglobin 7.5 (L) 12.0 - 15.0 GM/DL [facility] MAIN LAB Hematocrit 21.8 (L) 36 - 45 % [facility] MAIN LAB MCV 91.8 80 - 100 FL MAIN LAB MCH 31.6 26 - 34 PG MAIN LAB MCHC 34.4 32.0 - 36.0 G/DL MAIN LAB RDW 13.6 11 - 15 % MAIN LAB Platelet Count 238 150 - 400 K/UL MAIN LAB MPV 6.4 (L) 7 - 11 FL MAIN LAB Specimen Blood Performing Organization Address [facility] MAIN LAB [address] [place] [address] * ZINC (10/01/2019 10:12 AM CDT) Zinc 0.73 REFERENCE LAB Comment: Reference range: 0.66 to 1.10 Unit: mcg/mL ADDITIONAL INFORMATION This test was developed and its performance characteristics determined by [facility] in a manner consistent with CLIA requirements. This test has not been cleared or approved by the U.S. Food and Drug Administration. [facility], [address] [place] [address] Specimen Blood Performing Organization Address [facility] REFERENCE LAB REFERENCE LAB See results for address. * COPPER (10/01/2019 10:12 AM CDT) Pathologist [facility] Copper, Serum 1.65 (H) REFERENCE LAB Comment: Reference range: 0.75 to 1.45 Unit: mcg/mL ADDITIONAL INFORMATION This test was developed and its performance characteristics determined by [facility] in a manner consistent with CLIA requirements. This test has not been cleared or approved by the U.S. Food and Drug Administration. [facility], [address] [place] [id number] Specimen Blood Performing Organization Address [facility] REFERENCE LAB REFERENCE LAB See results for address. * IR RENAL BIOPSY (09/30/2019 11:33 AM CDT) Specimen Impressions Performed At Successful ultrasound guided left kidne y biopsy as described. Specimen was [facility] RAD RESULTS confirmed adequate by the cytopathologi st at time of procedure. IMak M.D., the attending radio logist, was present for the procedure, personally reviewed the images, and for mulated the interpretations and opinions expressed in this report. @TT Finalized by MAK LYNCH on 09/30/2019 1:3 5 PM. Dictated by MAK LYNCH on 09/30/2019 1:34 PM. Narrative Performed At Ultrasound Guided Percutaneous [place] Kidney Biopsy [facility] RAD RESULTS INDICATION: Renal failure GAUGE INSPECTOR: Mak Lynch M.D. MEDICATIONS: I was personally responsib le for the administration of moderate sedation services during the procedure performed and I confirm requirements described in CPT section on moderate se dation were followed, including the use of an independent trained observer who had no other duties during the procedure. See nursing log for complete details; the drugs utilized were: IV Versed and IV fentanyl DEVICE: 18g biopsy gun through 17g ne edle guide SPECIMENS Three18 gauge cores COMPLICATIONS: None immediate TECHNIQUE: The risks, benefits, and alt ernatives to the procedure and sedation were explained to the patient. Written informed consent was obtained. The abdomen was prepped and draped in s terile fashion. The patient's blood pressure was confirmed to be within cri teria for renal biopsy per interdepartmental protocol. Ultrasono graphic evaluation of the left kidney was carried out. Using local anesthetic, un robert direct ultrasound guidance and with images transferred to PACS, a 17 gauge needle guide was advanced into the kidney. Three coaxial passes were made with a 18 gauge biopsy gun. The specimens were placed in formalin. The tract wa s embolized with a minimal amount of Gelfoam slurry and a sterile dressing w as applied. The procedure was well-tolerated, and t he patient was discharged from the angio suite in satisfactory condition. FINDINGS: 1. Limited ultrasound evaluation shows no evidence of significant hydronephrosis. 2. Ultrasound documentation of each bio psy pass was confirmed and stored to PACS. 3. Three 18 gauge renal cores appeared adequate, which was confirmed by cytopathologist at time of procedure. 4. There is no evidence for complicatio n post kidney biopsy. Procedure Note Interface, Radiant Results - 09/30/2019 1:38 PM CDT Ultrasound Guided Percutaneous [place] Kidney Biopsy INDICATION: Renal failure GAUGE INSPECTOR: Mak Lynch M.D. MEDICATIONS: I was personally responsible for the administration of moderate sedation services during the procedure performed and I confirm requirements described in CPT section on moderate sedation were followed, including the use of an independent trained observer who had no other duties during the procedure. See nursing log for complete details; the drugs utilized were: IV Versed and IV fentanyl DEVICE: 18g biopsy gun through 17g needle guide SPECIMENS Three18 gauge cores COMPLICATIONS: None immediate TECHNIQUE: The risks, benefits, and alternatives to the procedure and sedation were explained to the patient. Written informed consent was obtained. The abdomen was prepped and draped in sterile fashion. The patient's blood pressure was confirmed to be within criteria for renal biopsy per interdepartmental protocol. Ultrasonographic evaluation of the left kidney was carried out. Using local anesthetic, under direct ultrasound guidance and with images transferred to PACS, a 17 gauge needle guide was advanced into the kidney. Three coaxial passes were made with a 18 gauge biopsy gun. The specimens were placed in formalin. The tract was embolized with a minimal amount of Gelfoam slurry and a sterile dressing was applied. The procedure was well-tolerated, and the patient was discharged from the angio suite in satisfactory condition. FINDINGS: 1. Limited ultrasound evaluation shows n o evidence of significant hydronephrosis. 2. Ultrasound documentation of each biop sy pass was confirmed and stored to PACS. 3. Three 18 gauge renal cores appeared a dequate, which was confirmed by cytopathologist at time of procedure. 4. There is no evidence for complication post kidney biopsy. IMPRESSION Successful ultrasound guided left kidney biopsy as described. Specimen was confirmed adequate by the cytopathologist at time of procedure. IMak M.D., the attending radiologist, was present for the procedure, personally reviewed the images, and formulated the interpretations and opinions expressed in this report. @TT Finalized by MAK LYNCH on 09/30/2019 1:35 PM. Dictated by MAK LYNCH on 09/30/2019 1:34 PM. Performing Organization Address City/State/Zipcode Ph one Number KU RAD RESULTS * PATHOLOGY/CYTOLOGY REQUEST (09/30/2019 10:15 AM CDT) PATHOLOGY [facility] [email or web address] Department of Pathology and Laboratory Medicine [address] [place] [id number] Surgical Pathology Office: [phone] SURGICAL PATHOLOGY REPORT NAME: SG TIM SURG PATH #: [id number] MR #: [id number] SPECIMEN CLASS: SR BILLING #: [id number] ALT ID #: LOCATION: 42 DATE OF PROCEDURE: 09/30/2019 AGE: 69 SEX: F DATE RECEIVED: 09/30/2019 : 1950 TIME RECEIVED: 11:53 PHYSICIAN: YOSEPH FERMIN DO DATE OF REPORT: 10/02/2019 COPY TO: LEVAR COLEMAN DO DATE OF PRINTIN10/11/2019 Procedures/Addenda Addendum Date Ordered: 10/11/2019 Status: Signed Out Date Complete: 10/11/2019 By: Brian Soria MD Date Reported: 10/11/2019 Addendum Comment Electron microscopy: There are no evidence of dense deposits in the subepithelium or subendothelium or mesangium areas. The visceral epithelial cell foot processes are intact and GBM with normal limits. ############################## ############################## ############ Final Diagnosis: A and B. Kidney ([place]), left, needle core biopsy: Diffuse large B-cell lymphoma. See comment. Minor population of monoclonal kappa plasma cells present. Comment: Immunohistochemical and in situ hybridization stains performed on A1 show the tumor cells are positive for CD20, CD10(60%), BCL2, BCL6 (10%), MIB-1 (60%), MUM-1 (40%) and negative for CD3, CD5, CD30 (less than 1%), cyclin D1, cMYC, EBV. These findings are consistent with DLBCL, germinal center subtype. CD138, kappa and lambda stains showed 1% monoclonal kappa plasma cells and negative controls for immunoglobulin light chain mRNA expression were reviewed and reacted appropriately. Light microscopy: Core biopsy of renal tissue are examined at ten levels of section and using H and E, PAS, Sheri's and silver stains. The specimen consists most of renal medulla with infiltration of large B-cell lymphoma. Up to 1 near sclerotic glomerulus and half artery are present, considered inadequate for evaluate medical renal conditions. Immunofluorescence microscopy: Renal tissue containing no glomerulus is evaluated by IgA, IgG, IgM, C1q, C3, kappa, lambda and albumin immunofluorescence. No glomeruli identified, considered inadequate for evaluate medical renal conditions. Electron microscopy: Pending Pursuant to the Coal Screener Program at the [facility] Pathology Department, selected slides from this case have been concurrently reviewed by the following pathologist: Dr. Rubin Mcintosh who agrees with the final diagnosis. Attestation: By this signature, I attest that I have personally formulated the final interpretation expressed in this report and that the above diagnosis is based upon my examination of the slides and/or other material indicated in this report. +++ +++ ksdarlyn/09/30/2019 ############################## ############################## ############ Material Received: A: left [place] renal biopsy B: left [place] renal biopsy IF History: 69-year-old female with history of concern for infiltrative renal disease Gross Description: A. Received in formalin labeled "left [place] renal biopsy" is a 0.9 cm in length by 0.1 cm in diameter core of hoffmann-red tissue. The specimen is entirely submitted in cassette A1. (cg) B. Received in Chadwick's solution labeled "left [place] renal biopsy IF" is a 1.1 cm in length by 0.1 cm in diameter core of hoffmann-red tissue. The specimen is entirely submitted for immunofluorescence studies. (cg) cg/09/30/2019 If immunohistochemical stains and/or in situ hybridization are cited in this report, the performance characteristics were determined by the Department of Pathology and Laboratory Medicine of the [facility] ([employer]) in compliance with CLIA'88 regulations. Some of these tests rely on the use of "analyte specific reagents" and are subject to specific labeling requirements by the FDA. Known positive and negative control tissues demonstrate appropriate staining. Results should be interpreted with caution given the likelihood of false negativity on decalcified specimens. This testing was developed by the Department of Pathology and Laboratory Medicine of the [facility]. It has not been cleared or approved by the FDA. The FDA has determined that such clearance or approval is not necessary. Specimen Kidney Performing Organization Address [facility] one Number MAIN LAB [address] [place] [address] * MISCELLANEOUS SURGICAL PATHOLOGY REFERENCE LAB TEST (09/30/2019 10:15 AM CDT) [facility] Test EMTO, Electron Microscopy, REFERENCE LAB Technical Only, [id number] Reference Lab PERFORMED AT [facility] Results Ref Lab Will be reported as an REFERENCE LAB addendum in the pathology report. Specimen Mail [id number] REFERENCE LAB Specimen Performing Organization Address [facility] one [facility] REFERENCE LAB REFERENCE LAB See results for address. * [facility] TEST (09/30/2019 10:15 AM CDT) [facility] EMTO, Electron Microscopy, REFERENCE LAB Miscellaneous Technical Only, [id number] Test Info Bedias SEE COMMENTS 10/03/2019 02:37 REFEREN CE LAB Miscellaneous PM Result Test Result Flag Unit RefValue ------ Electron Microscopy, Technical Only Electron Microscopy Testing Performed Test Performed by: [address] [address] Underwater Trapper: Tad Valentine M.D. Ph.D.; CLIA# [id number] Specimen Performing Organization Address [facility] one [facility] [facility] REFERENCE LAB See results for address. * ELECTROPHORESIS-UR RAN (09/29/2019 10:10 PM CDT) [facility] Total Protein, 106 MG/DL [facility] MAIN LAB Urine Albumin %, 23 % [facility] Urine Alpha 1 %, 20 % [facility] Urine Alpha 2 %, 24 % [facility] Urine Beta %, Urine 23 % [facility] Gamma %, Urine 10 % [facility] UEP NO PARAPROTEIN SEEN [facility] Interpretation Pathologist INTERPRETED BY FROILAN CHASE M.D. [facility] L AB Signature VIKKI GANT MD By the [facility] SIGNATURE ABOVE, I attest that I have personally formulated the final interpretation expressed in this report and that the above diagnosis is based upon my examination of the slides and/or other material indicated in this report. Specimen Urine Performing Organization Address City/State/Zipcode Ph one Number [facility] [address] [place] [address] * CYTOLOGY BRONCH LAVAGE (09/27/2019 6:00 PM CDT) Cytology [facility] [email or web address] Department of Pathology and Laboratory Medicine [address] [place] [address] Surgical Pathology Office: [phone] CYTOLOGY REPORT NAME: SG TIM CYTOLOGY #: [id number] MR #: [id number] ALT ID #: BILLING #: [id number] LOCATION: 64 DATE OF PROCEDURE: 09/27/2019 AGE: 69 SEX: F DATE RECEIVED: 09/30/2019 : 1950 TIME RECEIVED: 09:56 PHYSICIAN: MILO GUTIERREZ DATE OF REPORT: 10/02/2019 COPY TO: VINCE PAULA MD DATE OF PRINTIN10/02/2019 Material Received: A: Bronchial Alveolar Lavage-RONI History: 69 year old female with abnormal chest CT. Gross Description: (1 ThinPrep, 1 GMS) 15mLs of cloudy pink fluid with floating red debris. ############################## ############################## ############ Final Diagnosis: A. Bronchial Alveolar Lavage-RONI: Negative for malignant cells. The Grocott stain is negative for Pneumocystis and other fungal organisms. Please also see concurrent cytology report ([id number]) and surgical pathology report ([id number]). Attestation: By this signature, I attest that I have personally formulated the final interpretation expressed in this report and that the above diagnosis is based upon my examination of the slides and/or other material indicated in this report. +++Electronically Signed Out By+++ [facility]/10/02/2019 Interpreted by: Bev Valles MD, PhD Gómez Cooper MD Fellow Specimen Bronchial Alveolar Lavage,RONI Performing Organization Address [facility] Ph one Number [facility] [address] [place] [address] * HERPES SIMPLEX PCR - NON-BLOOD (09/27/2019 5:32 PM CDT) Specimen, BRONCHIAL ALVEOLAR LAVAGE MAIN LAB Herpes Herpes Simplex HSV 1 and 2 NOT DETECTED HSVND-HSV 1 and 2 [facility] PCR Comment: NOT DETECTED [place] HSV 1&2 Assay is a qualitative real-time PCR test for the direct detection and differentiation of HSV 1 and 2 DNA. This assay is FDA approved for testing cutaneous or mucocutaneous lesions from symptomatic patients. Performance on modifications of this test as well as other specimen types has been validated by the Department of Pathology and Laboratory Medicine at the [facility]. Specimen Bronchial Alveolar Lavage Performing Organization Address [facility] one Number MAIN LAB [address] [place] [address] * GRAM STAIN (09/27/2019 5:32 PM CDT) Battery Name GRAM STAIN MAIN LAB Specimen BRONCHIAL ALVEOLAR LAVAGE, RONI [facility] RAUL N LAB Description Special NONE MAIN LAB Requests Gram Stain FEW MAIN LAB NEUTROPHILS MANY RBC'S NO ORGANISMS SEEN Report Status FINAL MAIN LAB 09/27/2019 Specimen Bronchial Alveolar Lavage,RONI Performing Organization Address [facility] Ph one Number [facility] [address] [place] [address] * CULTURE-RESP,LOWER W/SENSITIVITY (09/27/2019 5:32 PM CDT) Battery Name LOWER RESP CULTURE MAIN LAB Specimen BRONCHIAL ALVEOLAR LAVAGE, RONI RAUL N LAB Description Special NONE MAIN LAB Requests Direct Gram FEW MAIN LAB Stain NEUTROPHILS MANY RBC'S NO ORGANISMS SEEN Culture NO GROWTH 2 DAYS MAIN LAB Report Status FINAL MAIN LAB 09/29/2019 Specimen Bronchial Alveolar Lavage,RONI Performing Organization Address [facility] Ph one Number MAIN LAB [address] [place] [address] * CMV QUANT PCR-FLUID (09/27/2019 5:32 PM CDT) Specimen, CMV BRONCHIAL ALVEOLAR LAVAGE [facility] CMV by CMV DNA NOT DETECTED CMVND-CMV DNA NOT [facility] PCR-fluid DETECTED CMV This assay is an off label use [facility] Comment-Fluid of the [employer] y for detection of CMV in fluids and has not been approved by the [place] Food and Drug Administration. The performance characteristics were determined by the [facility] Laboratory. The lower limit of detection is 50IU/mL. Specimen Fluid - Bronchial Alveolar Lavage Performing Organization Address [facility] one Number [facility] [address] [place] [address] * CELL COUNT W/DIFF-FLUIDS (09/27/2019 5:32 PM CDT) Segmented 9 % [facility] Neutrophils, Fluid Lymphocytes,Flu 3 % [facility] id Monocyte/Histo, 88 % [facility] Fluid Fluid Source BRONCHIAL ALVEOLAR LAVAGE [facility] Pathology HEMORRHAGIC FLUID [facility] Interpretation, Fluid Pathologist INTERPRETED BY JANNIE MILLS [facility] Signature M.Edel. By the PATH SIGNATURE ABOVE, I attest that I have personally formulated the final interpretation expressed in this report and that the above diagnosis is based upon my examination of the slides and/or other material indicated in this report. Specimen Fluid - Bronchial Alveolar Lavage Performing Organization Address [facility] one Number [facility] [address] [place] [address] * CYTOLOGY FNA LYMPH NODE (09/27/2019 5:30 PM CDT) Pathologist [facility] Cytology [facility] [email or web address] Department of Pathology and Laboratory Medicine [address] [place] [address] Surgical Pathology Office: [phone] CYTOLOGY REPORT NAME: SG TIM SURG PATH #: [id number] MR #: [id number] ALT ID #: BILLING #: [id number] LOCATION: 64 DATE OF PROCEDURE: 09/27/2019 AGE: 69 SEX: F DATE RECEIVED: 09/27/2019 : 1950 TIME RECEIVED: 17:42 PHYSICIAN: KASSANDRA CHOE DATE OF REPORT: 10/01/2019 COPY TO: DATE OF PRINTIN10/01/2019 Material Received: A: FNA Lymph Node- Station 7 B: FNA Lymph Node- 11L C: FNA Lymph Node- 4R History: 69 year old female with clinical history of pulmonary changes concerning for interstitial lung disease Gross Description: A. ( 1 DQ direct smear, 1 Pap direct smear, 1 cell block) Rapid determination of adequacy was performed by the furniture sales consultant, ET, on Diff-Quik stained slide(s). Pass one adequate for evaluation. Passes two and three were submitted in RPMI for cell block. Pass four was submitted in RPMI for flow cyotmetry. B. ( 1 DQ direct smear, 1 Pap direct smear, 1 cell block) Rapid determination of adequacy was performed by the furniture sales consultant, ET, on Diff-Quik stained slide(s). Pass one adequate for evaluation. Passes two and three were submitted in RPMI for cell block. C. ( 1 DQ direct smear, 1 Pap direct smear, 1 cell block) Rapid determination of adequacy was performed by the furniture sales consultant, ET, on Diff-Quik stained slide(s). Pass one adequate for evaluation. Passes two and three were submitted in RPMI for cell block. ############################## ############################## ############ Final Diagnosis: A. Lymph Node- Station 7, EBUS-FNA: Polymorphous population of lymphocytes. Please also see concurrent flow cytometry report ([id number]), which reports negative phenotypic study. B. Lymph Node- 11L, EBUS-FNA: Polymorphous population of lymphocytes. Focal histologic features (on cellblock sections) suggestive of granuloma. See comment. C. Lymph Node- 4R, EBUS-FNA: Polymorphous population of lymphocytes and rare morphologic findings suggestive of granuloma. Comment: A cell block is prepared and examined microscopically for each part (A, B, and C). Additional levels of cell block C are examined. Special stain AFB and GMS performed on cell block B are negative for acid fast and fungal organisms respectively. Attestation: By this signature, I attest that I have personally formulated the final interpretation expressed in this report and that the above diagnosis is based upon my examination of the slides and/or other material indicated in this report. +++Electronically Signed Out By+++ ke/09/30/2019 Interpreted by: Bev Valles MD, PhD Morgan Wetzel MD Fellow Specimen Lymph Node (Specify) Performing Organization Address City/State/Zipcode Ph one Number MAIN LAB [address] [place] [address] * BRONCHOSCOPY (09/27/2019 4:30 PM CDT) Provation Patient Name: Sg Tim [facility] OTHE R Report Procedure Date: 09/27/2019 4:30 RESULT S PM CSN: [id number] Date of : 1950 Gender: Female Attending Physician: Kassandra Choe MD Procedure: Bronchoscopy Indications: Abnormal CT scan of chest, Bilateral hilar lymphadenopathy Providers: Kassandra Choe MD (Doctor), Milo Gutierrez (Fellow), George Bacon (Nurse), Silvia Meier, Digital Service Engineer (Digital Service Engineer) Referring Physician: Unknown Unknown Medications: Tetricaine 0.25%/Epinephrine 0.003% 10 mL nebulizer, Tetricaine 0.25%/Epinephrine 0.003% topically on airway mucosa 12 mL, General Anesthesia Complications: No immediate complications Findings: An endobronchial ultrasound endoscope was utilized in order to assist with fine needle aspiration and/or characterization of lymph node stations 1R, 1L, 2R, 2L, 4R, 4L, 10R, 10L, 11Rs, 11Ri, 11L and 7. Only the following lymphnode stations were determined to be larger than 5mm on EBUS and/or metabolically active on PET then sampled using EBUS FNA: Lymph Nodes: Lymph node sizing was performed via endobronchial ultrasound. Sampling by transbronchial needle aspiration was also performed using an Olympus EBUS-TBNA 21 gauge needle in the right lower paratracheal region (level 4R), subcarinal mediastinum (level 7) and left interlobar region (level 11L) and sent for routine cytology. - The 7 (subcarinal) node was not measured. Three samples with the needle were obtained. - The 11L (interlobar) node was not measured. Three samples with the needle were obtained. - The 4R (lower paratracheal) node was not measured. Two samples with the needle were obtained. Rapid On-Site Evaluation (CHERYL): - 7 (subcarinal): the cellularity of the specimen was adequate. - 11L (interlobar): the cellularity of the specimen was adequate. - 4R (lower paratracheal): the cellularity of the specimen was adequate. Bronchoalveolar lavage was performed in the RONI inferior lingular segment (B5) of the lung and sent for cell count, bacterial culture, viral smears & culture, and fungal & AFB analysis and cytology and flow cytometry. 120 mL of fluid were instilled. 60 mL were returned. The return was clear. There were no mucoid plugs in the return fluid. Multiple specimens were obtained, and each sent for analysis. Endobronchial biopsies of mucosa were performed in the right upper lobe main rosario using a forceps and sent for histopathology examination. Five samples were obtained. Impression: - Abnormal CT scan of chest - Bilateral hilar lymphadenopathy - Endobronchial ultrasound was performed. - Lymph node sizing and sampling was performed. - Rapid On-Site Evaluation (CHERYL): Preliminary cytology was suggestive of the following: - 7 (subcarinal): the cellularity of the specimen was adequate. - 11L (interlobar): the cellularity of the specimen was adequate. - 4R (lower paratracheal): the cellularity of the specimen was adequate. (Final results are pending). - Bronchoalveolar lavage was performed. - Endobronchial biopsies was performed. Estimated Blood Loss: Estimated blood loss: none. Recommendation: - Await BAL, biopsy, culture and cytology results. - Follow up with referring physician. Scope In: 5:01:31 PM Scope Out: 5:40:31 PM Procedure Code(s): --- Professional --- 66283, Bronchoscopy, rigid or flexible, including fluoroscopic guidance, when performed; with endobronchial ultrasound (EBUS) guided transtracheal and/or transbronchial sampling (eg, aspiration[s]/biopsy[ies]), 3 or more mediastinal and/or hilar lymph node stations or structures 06800, Bronchoscopy, rigid or flexible, including fluoroscopic guidance, when performed; with bronchial or endobronchial biopsy(s), single or multiple sites 89756, Bronchoscopy, rigid or flexible, including fluoroscopic guidance, when performed; with bronchial alveolar lavage 26429, Bronchoscopy, rigid or flexible, including fluoroscopic guidance, when performed; with transendoscopic endobronchial ultrasound (EBUS) during bronchoscopic diagnostic or therapeutic intervention(s) for peripheral lesion(s) (List separately in addition to code for primary procedure[s]) CPT copyright 2019 [employer]. All rights reserved. The codes documented in this report are preliminary and upon legal summer intern review may be revised to meet current compliance requirements. Attending Participation: I was present and participated during the entire procedure, including non-ruiz portions. MD Kassandra Patricia MD 09/27/2019 8:19:11 PM The attending physician has electronically signed and finalized this document. Milo Gutierrez, Number of Addenda: 0 Note Initiated On: 09/27/2019 4:30 PM Specimen Performing Organization Address [facility] one Number K[facility] OTHER RESULTS * IMMUNOFIXATION, SERUM (IFES) (09/27/2019 11:01 AM CDT) Immuno NO PARAPROTEIN SEEN MAIN LAB Fix-Serum Corrected on 10/03 AT 1622: previously reported as IGG KAPPA PARAPROTEIN Pathologist INTERPRETED BY FROILAN CHASE M.D. [facility] AB Signature VIKKI GANT MD By the PATH SIGNATURE ABOVE, I attest that I have personally formulated the final interpretation expressed in this report and that the above diagnosis is based upon my examination of the slides and/or other material indicated in this report. Specimen Blood Performing Organization Address [facility] one Number MAIN LAB [address] [place] [address] * IGG SUBCLASSES (09/27/2019 11:01 AM CDT) Total IgG 735 (L) REFERENCE LAB Comment: Reference range: 767 to 1590 Unit: mg/dL [facility], [address] [place] [address] IgG Subclasses 363 REFERENCE LAB #1 Comment: Reference range: 341 to 894 Unit: mg/dL [facility], [address] [place] [address] 964[address] IgG Subclasses 166 (L) MG/DL REFERENCE LAB #2 Comment: Reference range: 171 to 632 [facility], [address] [place] [address] 32249 IgG Subclasses 158.0 (H) REFERENCE LAB #3 Comment: Reference range: 18.4 to 106.0 Unit: mg/dL [facility], [address] [place] [address] 667[address] IgG Subclasses 4.5 REFERENCE LAB #4 Comment: Reference range: 2.4 to 121.0 Unit: mg/dL [facility], [address] [place] [address] Specimen Blood Performing Organization Address [facility] one Number REFERENCE LAB REFERENCE LAB See results for address. * ALPHA FETO PROTEIN (AFP) (09/27/2019 11:01 AM CDT) Alpha Feto 1.1 0.0 - 15.0 NG/ML [facility] MAIN LAB Protein Specimen Blood Performing Organization Address [facility] one Number [facility] MAIN LAB [address] [place] [address] * ELECTROPHORESIS-SERUM PROTEIN (09/27/2019 11:01 AM CDT) Total 5.3 (L) 6.0 - 8.0 G/DL [facility] MAIN LAB Protein-SEP Albumin % 48.1 48 - 68 % [facility] MA[facility] Alpha 1 % 10.6 (H) 2 - 6 % [facility] Alpha 2 % 20.2 (H) 5 - 15 % [facility] Beta %,Serum 8.7 (L) 9 - 17 % [facility] Gamma % 12.4 9 - 21 % [facility] Interpretation Acute phase reaction. [facility] MAIN [facility] - SEP Pathologist INTERPRETED BY FROILAN CHASE M.D. [facility]IN L AB Signature VIKKI GANT MD By the PATH SIGNATURE ABOVE, I attest that I have personally formulated the final interpretation expressed in this report and that the above diagnosis is based upon my examination of the slides and/or other material indicated in this report. Specimen Blood Performing Organization Address [facility] one Number [facility] MAIN LAB [address] [place] [address] * LACTIC ACID(LACTATE) (09/27/2019 11:01 AM CDT) Lactic Acid 2.1 (H) 0.5 - 2.0 MMOL/L [facility] MAIN LAB Specimen Blood Performing Organization Address [facility] one Number MAIN LAB [address] [place] [address] * PATHOLOGY SURGICAL < 5 SPECIMENS (09/27/2019 7:06 AM CDT) PATHOLOGY [facility] MAIN [facility] [email or web address] Department of Pathology and Laboratory Medicine [address] [place] [address] Surgical Pathology Office: [phone] SURGICAL PATHOLOGY REPORT NAME: SG TIM SURG PATH #: [id number] MR #: [id number] SPECIMEN CLASS: SR BILLING #: [id number] ALT ID #: LOCATION: DATE OF PROCEDURE: 09/27/2019 AGE: 69 SEX: F DATE RECEIVED: 09/30/2019 : 1950 TIME RECEIVED: 07:06 PHYSICIAN: MILO GUTIERREZ DATE OF REPORT: 10/01/2019 COPY TO: VINCE PAULA MD DATE OF PRINTIN10/04/2019 ############################## ############################## ############ Final Diagnosis: A. Respiratory mucosa, "RUL", biopsy: Fragments of unremarkable respiratory mucosa. Negative for granuloma and malignancy. Deeper levels were examined. Attestation: By this signature, I attest that I have personally formulated the final interpretation expressed in this report and that the above diagnosis is based upon my e-xamination of the slides and/or other material indicated in this report. +++ +++ Frank Solis MD Resident /09/30/2019 ############################## ############################## ############ Material Received: A: RUL History: 69-year-old female with history of new diagnosis fibrotic lung disease, query sarcoidosis. Gross Description: A. Received in formalin labeled "RUL endobronchial biopsies" is a 0.4 x 0.2 x 0.1 cm aggregate of irregular, pale hoffmann soft tissue fragments. The specimen is entirely submitted in cassettes A1 and A2. The specimen is placed in formalin at 17:36 on September 27, 2019. (cg) cg/09/30/2019 Specimen Other (Specify) Performing Organization Address [facility] one Number MAIN LAB [address] [place] [address] * LEUKEMIA-LYMPHOMA PANEL BLOOD (09/27/2019 4:11 AM CDT) Leuk/Lymph SEE PATHOLOGY REPORT [facility] MAIN LAB Interpretation Specimen/LLM BLOOD MAIN LAB Specimen Blood Performing Organization Address [facility] one Number MAIN LAB [address] [place] [address] * CA19.9 (09/27/2019 4:11 AM CDT) CA 19-9 93 (H) <35 U/ml MAIN LAB Specimen Blood Performing Organization Address [facility] one Number MAIN LAB [address] [place] [address] * LIPASE (09/26/2019 11:26 AM CDT) Lipase 118 (H) 11 - 82 U/L MAIN LAB Specimen Performing Organization Address [facility] one Number MAIN LAB [address] [place] [address] * CT ABD/PELV WO CONTRAST (09/26/2019 10:59 AM CDT) Specimen Impressions Performed At 1. Abnormalities involving the liver, g allbladder, kidneys, right adrenal gland [facility] RAD RESULTS and retroperitoneum. 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 Erdheim-Hertford disease and IgG-4 related disease are additiona l considerations. 2. Mild diffuse enlargement of the kidn eys with ill-defined soft tissue thickening in the renal pelves and asym metric perinephric stranding. 3. Mild nodular enlargement of the righ t adrenal gland with ill-defined stranding. 4. Mild central retroperitoneal lymphad enopathy. Mild diffuse soft tissue thickening in the presacral space in th e pelvis may represent additional lymphadenopathy. 5. Multiple small hypodense hepatic les ions 6. Diffuse enlargement of the gallbladd er with pericystic stranding. Acute cholecystitis should also be considered for this finding. 7. Abnormal low attenuation tissue in t he body and tail of the pancreas with a small calculus towards the midline. Thi s low-attenuation tissue most likely represents a dilated main pancreatic du ct. Dr. Hyot discussed these findings with Ema landers by telephone at 1:55 PM 09/26/2019 Finalized by Lasha Hoyt M.D. on 0 1:57 PM. Dictated by Lasha Hoyt M.D. on 09/26/2019 1:11 PM. Narrative Performed At CT ABDOMEN AND PELVIS [facility] RAD RESULTS Clinical Indication: Evaluation liver lesion seen on CT chest. Acute renal failure. Technique: Multiple contiguous axial CT images were obtained through the abdomen and pelvis without IV contrast. Post pr ocessing coronal and sagittal reconstruction images were made from th e axial images. IV contrast: None. Bowel contrast: None Comparison: CT chest September 24, 2019. Isidro al ultrasound September 18, 2019. Otherwise, no relevant prior imaging. FINDINGS: Limited evaluation without the use of I V contrast which includes the viscera and vasculature. Lower Thorax: Partial visualization of bilateral breast implants. Partial visualization of the normal size heart with calcific coronary artery disease. Unchanged small left-sided pleural effu kerry and heterogeneous opacities in both lung bases. Mild posterior mediastinal and right cardiophrenic lymphadenopathy is unchanged. Liver and Biliary system: Liver is mild ly enlarged. There are several hypodense hepatic lesions scattered throughout oseas th lobes, the largest of which is posteriorly within hepatic segment 6 (s eries 3 image 24) measuring 18 mm. There is diffuse enlargement of the gallbladd er measuring up to 5 cm with mild associated pericholecystic stranding. N o calcified gallstones are present. Spleen: Unremarkable. Adrenal Glands and Kidneys: * Left adrenal gland is unremarkable * The right adrenal gland is again no hero to be enlarged measuring 37 x 20 mm with Hounsfield units measuring 26. The re is mild stranding adjacent to the adrenal gland in the perinephric fat. * Both kidneys are mildly enlarged. T here is loss of the normal fat planes in the renal sinuses that is replaced by s oft tissue thickening. There is also loss of the normal fluid attenuation of the right renal sinus and calyces. The left renal sinus and calyces are able to be visualized, though with surrounding soft tissue thickening. Mild bilateral perin ephric stranding is present, though asymmetrically greater on the right. Pancreas and Retroperitoneum: Moderate diffuse atrophy of the pancreas. The junction of the pancreatic body and mony l is slightly lower in attenuation than the remainder of the pancreas (series 3 image 26). At the medial aspect of this abnormal tissue is a sub-5 mm calculus. Mild retroperitoneal lymphadenopathy. Aorta and Major Vessels: Normal caliber abdominal aorta and common iliac arteries with mild calcific atheroscler osis. Bowel, Mesentery and Peritoneal space: Bowel loops are normal in caliber. No ascites or pneumoperitoneum. Mild gastr ohepatic lymphadenopathy. No lymphadenopathy in the root of the mese ntery. Pelvis: Uterus is atrophic. Urinary emmanuel dder is mildly distended. No iliac or inguinal lymphadenopathy. There is mild asymmetric soft tissue thickening posteriorly in the left pelvis, just an terior to the sacrum (series 3 images 59 and 60) at the level of S1 and S2. Abdominal wall and Osseous Structures: Advanced lumbar spondylosis. Grade 1 anterolisthesis of L5 on S1. Posterior spinal fusion and interbody plugs from L3-L5 with associated laminectomies. Mo derate diffuse body wall edema. Subchondral lucency in the right femora l head is suggestive of avascular necrosis. Procedure Note Interface, Radiant Results - 09/26/2019 2:[address] ABDOMEN AND PELVIS Clinical Indication: Evaluation liver lesion seen on CT chest. Acute renal failure. Technique: Multiple contiguous axial CT images were obtained through the abdomen and pelvis without IV contrast. Post processing coronal and sagittal reconstruction images were made from the axial images. IV contrast: None. Bowel contrast: None Comparison: CT chest September 24, 2019. Renal ultrasound September 18, 2019. Otherwise, no relevant prior imaging. FINDINGS: Limited evaluation without the use of IV contrast which includes the viscera and vasculature. Lower Thorax: Partial visualization of bilateral breast implants. Partial visualization of the normal size heart with calcific coronary artery disease. Unchanged small left-sided pleural effusion and heterogeneous opacities in both lung bases. Mild posterior mediastinal and right cardiophrenic lymphadenopathy is unchanged. Liver and Biliary system: Liver is mildly enlarged. There are several hypodense hepatic lesions scattered throughout both lobes, the largest of which is posteriorly within hepatic segment 6 (series 3 image 24) measuring 18 mm. There is diffuse enlargement of the gallbladder measuring up to 5 cm with mild associated pericholecystic stranding. No calcified gallstones are present. Spleen: Unremarkable. Adrenal Glands and Kidneys: * Left adrenal gland is unremarkable * The right adrenal gland is again noted to be enlarged measuring 37 x 20 mm with Hounsfield units measuring 26. There is mild stranding adjacent to the adrenal gland in the perinephric fat. * Both kidneys are mildly enlarged. There is loss of the normal fat planes in the renal sinuses that is replaced by soft tissue thickening. There is also loss of the normal fluid attenuation of the right renal sinus and calyces. The left renal sinus and calyces are able to be visualized, though with surrounding soft tissue thickening. Mild bilateral perinephric stranding is present, though asymmetrically greater on the right. Pancreas and Retroperitoneum: Moderate diffuse atrophy of the pancreas. The junction of the pancreatic body and tail is slightly lower in attenuation than the remainder of the pancreas (series 3 image 26). At the medial aspect of this abnormal tissue is a sub-5 mm calculus. Mild retroperitoneal lymphadenopathy. Aorta and Major Vessels: Normal caliber abdominal aorta and common iliac arteries with mild calcific atherosclerosis. Bowel, Mesentery and Peritoneal space: Bowel loops are normal in caliber. No ascites or pneumoperitoneum. Mild gastrohepatic lymphadenopathy. No lymphadenopathy in the root of the mesentery. Pelvis: Uterus is atrophic. Urinary bladder is mildly distended. No iliac or inguinal lymphadenopathy. There is mild asymmetric soft tissue thickening posteriorly in the left pelvis, just anterior to the sacrum (series 3 images 59 and 60) at the level of S1 and S2. Abdominal wall and Osseous Structures: Advanced lumbar spondylosis. Grade 1 anterolisthesis of L5 on S1. Posterior spinal fusion and interbody plugs from L3-L5 with associated laminectomies. Moderate diffuse body wall edema. Subchondral lucency in the right femoral head is suggestive of avascular necrosis. IMPRESSION 1. Abnormalities involving the liver, ga llbladder, kidneys, right adrenal gland and retroperitoneum. Leading consideration is lymphoma. Erdheim-Hertford disease and IgG-4 related disease are additional considerations. 2. Mild diffuse enlargement of the kidne ys with ill-defined soft tissue thickening in the renal pelves and asymmetric perinephric stranding. 3. Mild nodular enlargement of the right adrenal gland with ill-defined stranding. 4. Mild central retroperitoneal lymphade nopathy. Mild diffuse soft tissue thickening in the presacral space in the pelvis may represent additional lymphadenopathy. 5. Multiple small hypodense hepatic lesi ons 6. Diffuse enlargement of the gallbladde r with pericystic stranding. Acute cholecystitis should also be considered for this finding. 7. Abnormal low attenuation tissue in th e body and tail of the pancreas with a small calculus towards the midline. This low-attenuation tissue most likely represents a dilated main pancreatic duct. Dr. Hoyt discussed these findings with Paula by telephone at 1:55 PM 09/26/2019 Finalized by Lasha Hoyt M.D. on 09/26/2019 1:57 PM. Dictated by Lasha Hoyt M.D. on 09/26/2019 1:11 PM. Performing Organization Address City/State/Zipcode Ph one Number [facility] RAD RESULTS * PFT COMPLETE PULM FUNCTION (09/26/2019 9:52 AM CDT) FVC-Pre 1.48 L [facility] PFT MAIN FVC-%Pred-pre 51 % [facility] FEV1-Pre 1.18 L [facility] FEV1-%Pred-Pre 53 % [facility] FEV1/FVC-Pre 80 % [facility] [id number] 66 % [facility] [id number] 1.06 L/sec [facility] [id number]-%Pred-P 55 % [facility] re RVN2-Pre 1.10 L [facility] RVN2-%Pred-Pre 50 % [facility] TLCN2-Pre 2.66 L [facility] TLCN2-%Pred-Pre 52 % [facility] DLCOunc-Pre 9.40 ml/min/mmHg [facility] DLCOunc-%Pred-P 45 % [facility] re DLCOunc-#SD -2.990 ml/min/mmHg [facility] DLVA-Pred 4.30 ml/min/mmHg/L [facility] DLVA-Pre 3.48 ml/min/mmHg/L [facility] DLVA-%Pred-Pre 81 % [facility] DLVA-SD 0.80 ml/min/mmHg/L [facility] DLVA-LLN 2.70 ml/min/mmHg/L [facility] DLVA-ULN 5.90 ml/min/mmHg/L [facility] DLVA-#SD -1.019 ml/min/mmHg/L [facility] [id number] 76 % [facility] Specimen Narrative Performed At PFT MAIN Clinical history:->abnormal CT concerni ng for ILD/sarcoidosis Patient on bronchodilator therapy?->No Is this a pre-surgical evaluation?->No Performing Organization Address [facility] one Number [facility] PFT MAIN [address] [place], [place] [address] * CALCIUM-URINE RANDOM (09/25/2019 9:25 PM CDT) Pathologist [facility] Calcium-Urine,R 0.7 MG/DL [facility] MAIN LAB andom Specimen Urine - Urine Performing Organization Address [facility] one Number MAIN LAB [address] [place] [address] * MPO/PR3 W REFLEX TO ANCA (09/25/2019 5:15 PM CDT) [facility] Myeloperoxidase <0.2Comment: Interpretation: <1.0 AI [facility] MAIN LAB AB Negative Serine <0.2Comment: Interpretation: <1.0 AI K MAIN LAB Protease3 AB Negative Specimen Blood Performing Organization Address [facility] one Number MAIN LAB [address] [place] [address] * HYPERSENSITIVITY PNEUMONITIS IGG (09/25/2019 5:15 PM CDT) [facility] Alternaria 9.1 REFERENCE LAB Alternata Comment: Reference range: <12.0 Unit: mcg/mL Aspergillus 7.4 REFERENCE LAB Fumigatus IgG Comment: Reference range: <46.0 Unit: mcg/mL Aureobasidium 5.2 REFERENCE LAB [place] Comment: Reference range: <18.0 Unit: mcg/mL Micropolyspora <2.0 REFERENCE LAB Faeni Reference range: <5.0 Unit: mcg/mL Penicillium 7.3 REFERENCE LAB Notatum Comment: Reference range: <22.0 Unit: mcg/mL Phoma Herbarum 4.8 MCG/ML REFERENCE LAB Comment: Reference range: <8.0 Unit: mcg/mL Thermoactomyces 9.8 REFERENCE LAB Vulgaris Comment: Reference range: <13.0 Unit: mcg/mL Trichoderma 2.0 REFERENCE LAB Viride Comment: Reference range: <10.0 Unit: mcg/mL . Antibody levels greater than the reference range indicate that the patient has been immunologically sensitized to the antigen. The significance of elevated IgG depends on the nature of the antigen and the patient's clinical history. The test method was the [employer] ImmunoCAP. . *This test was developed and its performance characteristics determined by [facility]. It has not been cleared or approved by the U.S. Food and Drug Administration. Testing Performed At: [facility] [address] [place] [address] CLIA ID: [id number] Specimen Blood Performing Organization Address [facility] one Number REFERENCE LAB REFERENCE LAB See results for address. * CARDIOLIPIN AB IGG/IGM (09/25/2019 5:15 PM CDT) Cardiolipin, <1.6 <20.0 GPL/ML MAIN LAB IgG Cardiolipin, 1.2 <20.0 MPL/ML MAIN LAB IgM Specimen Blood Performing Organization Address [facility] one Number MAIN LAB [address] [place] [address] * SCL 70 ANTIBODIES (09/25/2019 5:15 PM CDT) SCL70 Ab <0.2Comment: Interpretation: <1.0 AI K U MAIN LAB Negative Specimen Blood Performing Organization Address [facility] one Number MAIN LAB [address] [place] [address] * JOJO 1 ANTIBODIES (09/25/2019 5:15 PM CDT) Jojo 1 Antibody <0.2Comment: Interpretation: <1.0 AI K U MAIN LAB Negative Specimen Blood Performing Organization Address [facility] one Number MAIN LAB [address] [place] [address] * CCP IGG ANTIBODY (09/25/2019 5:15 PM CDT) CCP IgG <0.5 <3.0 [IU]/mL MAIN LAB Antibody Specimen Blood Performing Organization Address [facility] one Number MAIN LAB [address] [place] [address] * ALDOLASE (09/25/2019 5:15 PM CDT) Pathologist [facility] Aldolase 9.2 (H) REFERENCE LAB Comment: Reference range: <7.7 Unit: U/L This result may be falsely elevated. Hemoglobin contamination was observed in this sample, and hemolysis increases Aldolase results. Interpret results with caution. [facility] Specimen Blood Performing Organization Address [facility] one Number REFERENCE LAB REFERENCE LAB See results for address. * ANTI SSA ANTI SSB AB (09/25/2019 5:15 PM CDT) [facility] Anti-SSA <0.2Comment: Interpretation: <1.0 AI K U MAIN LAB Negative Anti-SSB <0.2Comment: Interpretation: <1.0 AI K U MAIN LAB Negative Specimen Blood Performing Organization Address [facility] one Number MAIN LAB [address] [place] [address] * IMMUNOGLOBULINS-IGA,IGG,IGM (09/25/2019 5:15 PM CDT) IgG 707 (L) 762 - 1,488 MG/DL MAIN LAB IgA 110 70 - 390 MG/DL MAIN LAB IgM 60 38 - 328 MG/DL MAIN LAB Specimen Blood Performing Organization Address [facility] one Number MAIN LAB [address] [place] [address] * CREATINE KINASE-CPK (09/25/2019 5:15 PM CDT) Pathologist [facility] Creatine Kinase 31 21 - 215 U/L MAIN LAB Specimen Blood Performing Organization Address [facility] one Number MAIN LAB [address] [place] [address] * RHEUMATOID FACTOR (RF) (09/25/2019 3:46 PM CDT) Pathologist [facility] Rheum Factor 13Comment: NOTE NEW REFERENCE <25 IU/mL [facility] MAIN LAB Screen RANGES Specimen Blood Performing Organization Address [facility] one Number MAIN LAB [address] [place] [address] * ANTI-DNA DOUBLE STRAND (09/25/2019 3:46 PM CDT) DNA Double <10 <10 [facility] Strand AB Specimen Blood Performing Organization Address [facility] one Number MAIN LAB [address] [place] [address] * ANGIOTENSIN CONV ENZYME (CECE) (09/25/2019 3:46 PM CDT) Pathologist [facility] Angiotensin 18 REFERENCE LAB Convert Enzyme Comment: Reference range: 16 to 85 Unit: U/L [facility] Specimen Blood Performing Organization Address [facility] one Number REFERENCE LAB REFERENCE LAB See results for address. * ANTI-NUCLEAR ANTIBODY(VIV) (09/25/2019 3:46 PM CDT) Pathologist [facility] VIV Screen <80 <80 [facility] MAIN LAB Specimen Blood Performing Organization Address [facility] one Number MAIN LAB [address] [place] [address] * HAPTOGLOBIN (09/25/2019 3:46 PM CDT) Pathologist [facility] Haptoglobin 339 (H) 16 - 200 MG/DL MAIN LAB Specimen Blood Performing Organization Address [facility] one Number MAIN LAB [address] [place] [address] * BLOOD TYPE CONFIRMATION - ORDER ONLY IF REQUESTED BY LAB (09/25/2019 9:35 AM CDT) Pathologist [facility] ABO/RH(D) A POS MAIN LAB Specimen Blood Performing Organization Address [facility] one Number MAIN LAB [address] [place] [address] * PERIPHERAL SMEAR (09/25/2019 4:00 AM CDT) Pathologist [facility] Peripheral NORMOCYTIC ANEMIA. MAIN LAB Smear ABSOLUTE LYMPHOCYTOPENIA. MILD MONOCYTOSIS PLATELETS APPEAR NORMAL IN NUMBER AND MORPHOLOGY. Pathologist INTERPRETED BY FROILAN CHASE M.D. [facility] AB Signature By the PATH SIGNATURE ABOVE , I attest that I have personally formulated the final interpretation expressed in this report and that the above diagnosis is based upon my examination of the slides and/or other material indicated in this report. Specimen Performing Organization Address [facility] one Number MAIN LAB [address] [place] [address] * SED RATE (09/25/2019 4:00 AM CDT) Sed Rate -ESR 21 0 - 30 MM/HR [facility] MAIN LAB Specimen Performing Organization Address [facility] one Number [facility] MAIN LAB [address] [place] [address] * RETICULOCYTE COUNT (09/25/2019 4:00 AM CDT) Only the most recent of 2 results within the time period is included. Retic, 1.5 0.5 - 2.0 % [facility] MAIN LAB Uncorrected Retic, 0.7 % [facility] MAIN LAB Corrected Retic, Absolute 32.9 30 - 94 K/UL [facility] MAIN LAB Specimen Performing Organization Address [facility] one Number MAIN LAB [address] [place] [id number] * C REACTIVE PROTEIN (CRP) (09/25/2019 4:00 AM CDT) C-Reactive 20.55 (H) <1.0 MG/DL MAIN LAB Protein Specimen Performing Organization Address [facility] one Number MAIN LAB [address] [place] [address] * CT CHEST WO CONTRAST (09/24/2019 9:47 PM CDT) Specimen Addenda Addendum by Eric Brennan MD on 09/25/2019 8:44 AM Finalized by Eric Brennan M.D. on 09/25/2019 8:21 AM. Dictated by Eric Brennan M.D. on 09/25/2019 8:04 AM.Addendum: Additionally there is an indeterminate right hepatic lobe hypoattenuating lesion as well as a dilated gallbladder. These findings could be further evaluated with abdomen and pelvis CT with contrast and liver protocol. CRITICAL FINDINGS: The above impressions were verbally communicated by telephone to Dr. Paula by Dr. Brennan at 09/25/2019 8:40 AM. Finalized by Eric Brennan M.D. on 09/25/2019 8:40 AM. Dictated by Eric Brennan M.D. on 09/25/2019 8:38 AM. Impressions Performed At 1. Right greater than left peribronchovascular and terry bpleural reticulation and [facility] RAD RESULTS architectural distortion with mid lung zone predominance most compatible with fibrosing interstitial lung disease. Le ading considerations for this pattern of fibrosis would include sarcoidosis benita cially given mediastinal and hilar lymph nodes or potentially the fibrotic form of hypersensitivity pneumonitis. Pulmonary consultation suggested. 2. Scattered areas of groundglass opaci ty and consolidation may reflect new areas of infection including from virus es or represent acute exacerbation of underlying interstitial lung disease. 3. There are a few scattered nodules wh ich may be infectious or inflammatory in nature. Attention on short-term follow- up CT in 3 months time to reassess. 4. Small left and trace right pleural e ffusions. #FOLLOW Narrative Performed At CT CHEST WO CONTRAST [facility] RAD RESULTS INDICATION: sob, abnormal cxr. COMPARISON STUDY: Chest radiograph September 24, 2019. TECHNIQUE: Unenhanced axial images we re obtained through the lungs and upper abdomen. Coronal and sagittal multiplan ar reconstructions were also obtained. FINDINGS: Heart and Mediastinum: The thyroid glan d is normal. No axillary or supraclavicular lymphadenopathy. Multip le conspicuous, enlarged mediastinal and hilar lymph nodes. For example, a right lower paratracheal lymph node measures 1.1 cm short axis diameter image 24 ser ies 3. The heart and pericardium are within normal limits. Moderate coronary artery calcifications indicate atherosclerosis. Aorta is calcified, in dicating atherosclerosis. Abdomen: Indeterminant 1.8 cm posterior right hepatic lobe hypoattenuating lesion not clearly a cyst by Hounsfield unit criteria. Dilated gallbladder with adjacent liver hypoattenuation. Conspic uous angelica hepatis and upper abdominal lymph nodes. Bones and Soft Tissues: Bilateral breas t implants. Incompletely imaged cervical fusion hardware. There are thoracic spi ne degenerative changes. T10 vertebral body lucent lesion containing fat may r epresent hemangioma or intraosseous lipoma. Pleura: Small left and trace right pleu ral effusions. Lungs and Airways: Right greater than l eft lung peribronchovascular and subpleural areas of architectural disto rtion and reticulation with midlung zone predominance. There is associated groun dglass opacity and areas of consolidation in both lungs. There are also a few sca ttered larger nodules. For example, 0.9 x 0.7 cm right lower lobe subpleural nodu le image 127 series 4. Calcified granulomas. Procedure Note Interface, Radiant Results - 09/25/2019 8:[address] CHEST WO CONTRAST INDICATION: sob, abnormal cxr. COMPARISON STUDY: Chest radiograph September 24, 2019. TECHNIQUE: Unenhanced axial images were obtained through the lungs and upper abdomen. Coronal and sagittal multiplanar reconstructions were also obtained. FINDINGS: Heart and Mediastinum: The thyroid gland is normal. No axillary or supraclavicular lymphadenopathy. Multiple conspicuous, enlarged mediastinal and hilar lymph nodes. For example, a right lower paratracheal lymph node measures 1.1 cm short axis diameter image 24 series 3. The heart and pericardium are within normal limits. Moderate coronary artery calcifications indicate atherosclerosis. Aorta is calcified, indicating atherosclerosis. Abdomen: Indeterminant 1.8 cm posterior right hepatic lobe hypoattenuating lesion not clearly a cyst by Hounsfield unit criteria. Dilated gallbladder with adjacent liver hypoattenuation. Conspicuous angelica hepatis and upper abdominal lymph nodes. Bones and Soft Tissues: Bilateral breast implants. Incompletely imaged cervical fusion hardware. There are thoracic spine degenerative changes. T10 vertebral body lucent lesion containing fat may represent hemangioma or intraosseous lipoma. Pleura: Small left and trace right pleural effusions. Lungs and Airways: Right greater than left lung peribronchovascular and subpleural areas of architectural distortion and reticulation with midlung zone predominance. There is associated groundglass opacity and areas of consolidation in both lungs. There are also a few scattered larger nodules. For example, 0.9 x 0.7 cm right lower lobe subpleural nodule image 127 series 4. Calcified granulomas. IMPRESSION 1. Right greater than left peribronchova scular and subpleural reticulation and architectural distortion with mid lung zone predominance most compatible with fibrosing interstitial lung disease. Leading considerations for this pattern of fibrosis would include sarcoidosis especially given mediastinal and hilar lymph nodes or potentially the fibrotic form of hypersensitivity pneumonitis. Pulmonary consultation suggested. 2. Scattered areas of groundglass opacit y and consolidation may reflect new areas of infection including from viruses or represent acute exacerbation of underlying interstitial lung disease. 3. There are a few scattered nodules whi ch may be infectious or inflammatory in nature. Attention on short-term follow-up CT in 3 months time to reassess. 4. Small left and trace right pleural ef fusions. #FOLLOW Performing Organization Address City/State/Zipcode Ph one Number [facility] RAD RESULTS * HEPATITIS PANEL, ACUTE (09/21/2019 6:29 AM CDT) Pathologist [facility] Hepatitis A IgM Non-Reactive [id number]-Cyvatucm MAIN LAB Anti HBc IgM Non-Reactive: IgM antibodies AAP-Ogb-Fdratdti: MAIN LAB to HBV core antigen (anti-HBc) IgM antibodies to were not detected. HBV core antigen (anti-H HBsAg Non-Reactive: HBs antigen not IIBA-Hcq-Pjpjtsp e: MAIN LAB detected HBs antigen not detected Anti HCV Non-Reactive: Antibodies to ATAGW-Fyo-Kdhizijg : MAIN LAB HCV were not detected. Antibodies to HCV were not detected. Specimen Blood Performing Organization Address City/State/Zipcode Ph one Number MAIN LAB [address] [place] [address] * 2D + DOPPLER ECHO (09/19/2019 2:11 PM CDT) Pathologist [facility] IVS 0.71 0.6 - 0.9 cm OTHER OUTSIDE LAB LVIDD 4.49 3.8 - 5.2 cm OTHER OUTSIDE LAB LVIDS 2.18 2.2 - 3.5 cm OTHER OUTSIDE LAB PW 0.69 0.6 - 0.9 cm OTHER OUTSIDE LAB Left Ventricle 93.76 46 - 106 mL OTHER OUTSIDE Diastolic LAB Volume Left Ventricle 50.41 29 - 61 mL OTHER OUTSIDE Diastolic LAB Volume Index Left Ventricle 18.08 14 - 42 mL OTHER OUTSIDE Systolic Volume LAB Left Ventricle 9.72 8 - 24 mL OTHER OUTSIDE Systolic Volume LAB Index TDI lateral e' 0.13 m/s OTHER OUTSIDE LAB Right 2.24 1.9 - 3.5 cm OTHER OUTSIDE Ventricular Mid LAB Diameter LA size 3.66 2.7 - 3.8 cm OTHER OUTSIDE LAB LA volume 55.45 22 - 52 mL OTHER OUTSIDE LAB AV peak 1.58 m/s OTHER OUTSIDE velocity LAB MV Peak A Patrick 0.69 m/s OTHER OUTSIDE LAB MV Peak E Patrick 0.85 m/s OTHER OUTSIDE PW LAB Right 3.32 2.5 - 4.1 cm OTHER OUTSIDE Ventricular LAB Basal Diameter Right Heart 1.62 >1.7 cm OTHER OUTSIDE Systolic Mmode LAB TAPSE Right Heart 0.13 m/s OTHER OUTSIDE Systolic TDI S' LAB Sinus 3.17 2.4 - 3.6 cm OTHER OUTSIDE LAB Ascending aorta 3.39 cm OTHER OUTSIDE LAB BSA 1.86 m2 OTHER OUTSIDE LAB FS 51.45 28 - 44 % OTHER OUTSIDE LAB EF 87.46 % OTHER OUTSIDE LAB LV mass 95.30 67 - 162 g OTHER OUTSIDE LAB RWT 0.31 <=0.42 OTHER OUTSIDE LAB E/A ratio 1.23 OTHER OUTSIDE LAB TV rest 36 mmHg OTHER OUTSIDE pulmonary LAB artery pressure Lateral E/E' 6.54 OTHER OUTSIDE ratio LAB Left Atrium 29.81 16 - 34 OTHER OUTSIDE Index LAB Cardiology Siemens [id number] OTHER OUTSIDE Ultrasound LAB Machine Left Ventricle 51.23 43 - 95 g/m2 OTHER OUTSIDE Mass Index LAB TDI Medial e' 0.080 m/s OTHER OUTSIDE LAB Medial E/E' 10.63 OTHER OUTSIDE ratio LAB ECHO EF 65 % OTHER OUTSIDE LAB Specimen Narrative Performed At OTHER OUTSIDE LAB 1. Normal left ventricular systolic fun ction with an EF of 65% 2. No regional wall motion abnormalitie s 3. Normal left ventricular diastolic fu nction 4. Normal right ventricular size and qu alitative function 5. Normal sized atria bilaterally 6. No significant valvular disease iden tified 7. Estimated peak systolic PA pressure = 36 mmHg 8. No pericardial effusion There are no prior studies for comparis on. Performing Organization Address City/State/Zipcode Ph one Number OTHER OUTSIDE LAB * CULTURE-URINE W/SENSITIVITY (09/19/2019 12:01 PM CDT) Battery Name URINE CULTURE MAIN LAB Specimen URINE,INDWELLING CATH MAIN LAB Description Special NONE MAIN LAB Requests Culture >100,000 CFU/ml MAIN LAB ESCHERICHIA COLI >100,000 CFU/ml ENTEROBACTER CLOACAE COMPLEX (A) Report Status FINAL [facility] 09/22/2019 Organism ID >[id number] CFU/ml MAIN LAB ESCHERICHIA COLI Organism ID >[id number] CFU/ml MAIN LAB ENTEROBACTER CLOACAE COMPLEX Specimen Urine - Zambrano Catheter Antibiotic Method Susceptibility Organism Ampicillin PATY (MCG/ML) INTERPRETATION <=4 SUSCEPTIBLE: Susceptible >100,000 cfu/ml escherichia coli Amoxicil/Clav Acid PATY (MCG/ML) INTERPRETATION <=4/2 SUSCEPTIBLE: Susceptible >100,000 cfu/ml escherichia coli Levofloxacin PATY (MCG/ML) INTERPRETATION <=1 SUSCEPTIBLE: Susceptible >100,000 cfu/ml escherichia coli Nitrofurantoin PATY (MCG/ML) INTERPRETATION <=16 SUSCEPTIBLE: Susceptible >100,000 cfu/ml escherichia coli Gentamicin PATY (MCG/ML) INTERPRETATION <=2 SUSCEPTIBLE: Susceptible >100,000 cfu/ml escherichia coli Trimethsulfa PATY (MCG/ML) INTERPRETATION <=0.5/9.5 SUSCEPTIBLE: Susceptible >100,000 cfu/ml escherichia coli Piperacil/Tazobactam PATY (MCG/ML) INTERPRETATION <=2/4 SUSCEPTIBLE: Susceptible >100,000 cfu/ml escherichia coli Tetracycline PATY (MCG/ML) INTERPRETATION <=2 SUSCEPTIBLE: Susceptible >100,000 cfu/ml escherichia coli Cefepime PATY (MCG/ML) INTERPRETATION <=1 SUSCEPTIBLE: Susceptible >100,000 cfu/ml escherichia coli Ertapenem PATY (MCG/ML) INTERPRETATION <=0.25 SUSCEPTIBLE: Susceptible >100,000 cfu/ml escherichia coli Ceftriaxone PATY (MCG/ML) INTERPRETATION <=1 SUSCEPTIBLE: Susceptible >100,000 cfu/ml escherichia coli Method PATY (MCG/ML) INTERPRETATION PATY (MCG/ML) INTERPRETATION >100,000 cfu/ml escherichia coli Ampicillin PATY (MCG/ML) INTERPRETATION >16 RESISTANT: Resistant >100,000 cfu/ml enterobacter cloacae complex Amoxicil/Clav Acid PATY (MCG/ML) INTERPRETATION >16/8 RESISTANT: Resistant >100,000 cfu/ml enterobacter cloacae complex Cefazolin PATY (MCG/ML) INTERPRETATION >16 RESISTANT: Resistant >100,000 cfu/ml enterobacter cloacae complex Levofloxacin PATY (MCG/ML) INTERPRETATION <=1 SUSCEPTIBLE: Susceptible >100,000 cfu/ml enterobacter cloacae complex Nitrofurantoin PATY (MCG/ML) INTERPRETATION 32 SUSCEPTIBLE: Susceptible >100,000 cfu/ml enterobacter cloacae complex Gentamicin PATY (MCG/ML) INTERPRETATION <=2 SUSCEPTIBLE: Susceptible >100,000 cfu/ml enterobacter cloacae complex Trimethsulfa PATY (MCG/ML) INTERPRETATION <=0.5/9.5 SUSCEPTIBLE: Susceptible >100,000 cfu/ml enterobacter cloacae complex Piperacil/Tazobactam APTY (MCG/ML) INTERPRETATION 4/4 SUSCEPTIBLE: Susceptible >100,000 cfu/ml enterobacter cloacae complex Tetracycline PATY (MCG/ML) INTERPRETATION <=2 SUSCEPTIBLE: Susceptible >100,000 cfu/ml enterobacter cloacae complex Cefepime PATY (MCG/ML) INTERPRETATION <=1 SUSCEPTIBLE: Susceptible >100,000 cfu/ml enterobacter cloacae complex Ertapenem PATY (MCG/ML) INTERPRETATION <=0.25 SUSCEPTIBLE: Susceptible >100,000 cfu/ml enterobacter cloacae complex Ceftriaxone PATY (MCG/ML) INTERPRETATION <=1 SUSCEPTIBLE: Susceptible >100,000 cfu/ml enterobacter cloacae complex Method PATY (MCG/ML) INTERPRETATION PATY (MCG/ML) INTERPRETATION >100,000 cfu/ml enterobacter cloacae complex Performing Organization Address City/State/Zipcode Ph one Number [facility] [address] [place] [address] * RENAL BLADDER COMPLETE (09/18/2019 10:51 AM CDT) Specimen Impressions Performed At 1. Symmetric, normal renal size. [facility] 2. Patent renal vessels. No evidence of hemodynamically significant renal artery stenosis. 3. Elevated intrarenal resistivity, m ost compatible with a nonspecific, diffuse parenchymal disease. Finalized by Brenda Stahl M.D. on 09/18/19 12:17 PM. Dictated by Brenda Stahl M.D. on 09/18/2019 9:16 AM. Narrative Performed At RENAL ULTRASOUND WITH DOPPLER [facility] CLINICAL INDICATION: Female, 69 years; assess renal vasculature. Renal failure, hypertension. TECHNIQUE: Multiple grayscale, color Do ppler and spectral Doppler ultrasound images were obtained through the [employer] system. Initial images were performed the morning of 09/18/2019, though the [facility] ient requested early termination of the exam. The patient returned to the [facility] tme and the exam was completed later that same day. COMPARISON: None FINDINGS: Right Kidney: Measures 11 cm in length. No hydronephrosis. The intrarenal resistive indices are elevated, ranging 0.67-0.9. Systolic acceleration is normal. Peak systolic velocity within t he right renal artery is 177 cm/s. The right renal vein is patent. Left Kidney: Measures 12.1 cm in length . Mild ectasia of the renal pelvis without tahmina hydronephrosis. The intra renal resistive indices are mildly elevated, ranging 0.73-0.86. Systolic acceleration is normal. Peak systolic velocity within the left renal artery i s 130 cm/s. The left renal vein is patent. Aorta: Visualized portions are normal i n caliber. Peak systolic velocity in the proximal aorta is 135 cm/s. Urinary bladder: Predominantly decompre ssed by Zambrano catheter. Procedure Note Interface, Radiant Results - 09/18/2019 12:20 PM CDT RENAL ULTRASOUND WITH DOPPLER CLINICAL INDICATION: Female, 69 years; assess renal vasculature. Renal failure, hypertension. TECHNIQUE: Multiple grayscale, color Doppler and spectral Doppler ultrasound images were obtained through the urinary system. Initial images were performed the morning of 09/18/2019, though the patient requested early termination of the exam. The patient returned to the Department and the exam was completed later that same day. COMPARISON: None FINDINGS: Right Kidney: Measures 11 cm in length. No hydronephrosis. The intrarenal resistive indices are elevated, ranging 0.67-0.9. Systolic acceleration is normal. Peak systolic velocity within the right renal artery is 177 cm/s. The right renal vein is patent. Left Kidney: Measures 12.1 cm in length. Mild ectasia of the renal pelvis without tahmina hydronephrosis. The intrarenal resistive indices are mildly elevated, ranging 0.73-0.86. Systolic acceleration is normal. Peak systolic velocity within the left renal artery is 130 cm/s. The left renal vein is patent. Aorta: Visualized portions are normal in caliber. Peak systolic velocity in the proximal aorta is 135 cm/s. Urinary bladder: Predominantly decompressed by Zambrano catheter. IMPRESSION 1. Symmetric, normal renal size. 2. Patent renal vessels. No evidence of hemodynamically significant renal artery stenosis. 3. Elevated intrarenal resistivity, mos t compatible with a nonspecific, diffuse parenchymal disease. Finalized by Brenda Stahl M.D. on 09/18/2019 12:17 PM. Dictated by Brenda Stahl M.D. on 09/18/2019 9:16 AM. Performing Organization [facility] Number [facility] * US DOPPLER ABD PELV RETROPER COMP (09/18/2019 10:51 AM CDT) Specimen Impressions Performed At 1. Symmetric, normal renal size. [facility] 2. Patent renal vessels. No evidence of hemodynamically significant renal artery stenosis. 3. Elevated intrarenal resistivity, m ost compatible with a nonspecific, diffuse parenchymal disease. Finalized by Brenda Stahl M.D. on 09/18/19 12:17 PM. Dictated by Brenda Stahl M.D. on 09/18/2019 9:16 AM. Narrative Performed At RENAL ULTRASOUND WITH DOPPLER [facility] CLINICAL INDICATION: Female, 69 years; assess renal vasculature. Renal failure, hypertension. TECHNIQUE: Multiple grayscale, color Do ppler and spectral Doppler ultrasound images were obtained through the urinar y system. Initial images were performed the morning of 09/18/2019, though the [facility] ient requested early termination of the exam. The patient returned to the [facility] tme and the exam was completed later that same day. COMPARISON: None FINDINGS: Right Kidney: Measures 11 cm in length. No hydronephrosis. The intrarenal resistive indices are elevated, ranging 0.67-0.9. Systolic acceleration is normal. Peak systolic velocity within t he right renal artery is 177 cm/s. The right renal vein is patent. Left Kidney: Measures 12.1 cm in length . Mild ectasia of the renal pelvis without tahmina hydronephrosis. The intra renal resistive indices are mildly elevated, ranging 0.73-0.86. Systolic acceleration is normal. Peak systolic velocity within the left renal artery i s 130 cm/s. The left renal vein is patent. Aorta: Visualized portions are normal i n caliber. Peak systolic velocity in the proximal aorta is 135 cm/s. Urinary bladder: Predominantly decompre ssed by Zambrano catheter. Procedure Note Interface, Radiant Results - 09/18/2019 12:20 PM CDT RENAL ULTRASOUND WITH DOPPLER CLINICAL INDICATION: Female, 69 years; assess renal vasculature. Renal failure, hypertension. TECHNIQUE: Multiple grayscale, color Doppler and spectral Doppler ultrasound images were obtained through the urinary system. Initial images were performed the morning of 09/18/2019, though the patient requested early termination of the exam. The patient returned to the Department and the exam was completed later that same day. COMPARISON: None FINDINGS: Right Kidney: Measures 11 cm in length. No hydronephrosis. The intrarenal resistive indices are elevated, ranging 0.67-0.9. Systolic acceleration is normal. Peak systolic velocity within the right renal artery is 177 cm/s. The right renal vein is patent. Left Kidney: Measures 12.1 cm in length. Mild ectasia of the renal pelvis without tahmina hydronephrosis. The intrarenal resistive indices are mildly elevated, ranging 0.73-0.86. Systolic acceleration is normal. Peak systolic velocity within the left renal artery is 130 cm/s. The left renal vein is patent. Aorta: Visualized portions are normal in caliber. Peak systolic velocity in the proximal aorta is 135 cm/s. Urinary bladder: Predominantly decompressed by Zambrano catheter. IMPRESSION 1. Symmetric, normal renal size. 2. Patent renal vessels. No evidence of hemodynamically significant renal artery stenosis. 3. Elevated intrarenal resistivity, mos t compatible with a nonspecific, diffuse parenchymal disease. Finalized by Brenda Stahl M.D. on 09/18/2019 12:17 PM. Dictated by Brenda Stahl M.D. on 09/18/2019 9:16 AM. Performing Organization Address [facility] one Number [facility] * TSH WITH FREE T4 REFLEX (09/18/2019 9:54 AM CDT) TSH 1.67 0.35 - 5.00 MCU/ML MAIN LAB Specimen Blood Performing Organization Address [facility] one Number MAIN LAB [address] [place] [address] * PTT (APTT) (09/18/2019 9:54 AM CDT) APTT 27.5 24.0 - 36.5 SEC MAIN LAB Specimen Blood Performing Organization Address [facility] one Number MAIN LAB [address] [place] [address] * OSMOLALITY (09/18/2019 9:54 AM CDT) Osmolality 324 (H) 280 - 307 MOSMOL/KG MAIN LA B Specimen Blood Performing Organization Address [facility] one Number MAIN LAB [address] [place] [address] * FOLATE, SERUM (09/18/2019 9:54 AM CDT) Serum Folate 4.0 >3.9 NG/ML MAIN LAB Specimen Blood Performing Organization Address [facility] one Number MAIN LAB [address] [place] [address] * VITAMIN B12 (09/18/2019 9:54 AM CDT) Vitamin B12 289 180 - 914 PG/ML MAIN LAB Specimen Blood Performing Organization Address [facility] one Number MAIN LAB [address] [place] [address] * PROTEIN/CR RATIO,UR RAN (09/18/2019 9:15 AM CDT) Protein, Random 83 MG/DL [facility] Creatinine, 95 MG/DL [facility] Random Protein/CR 0.9 [facility] ratio Specimen Urine - Urine Performing Organization [facility] Ph one Number [facility] [address] [place] [address] * OSMOLALITY-URINE RANDOM (09/18/2019 9:15 AM CDT) Osmolality-Urin 377 50 - 1,400 MOS/KG [facility] e Specimen Urine - Urine Performing Organization [facility] Ph one Number [facility] [address] [place] [address] * CHLORIDE-URINE RANDOM (09/18/2019 9:15 AM CDT) Chloride, 53 MMOL/L [facility] Random Specimen Urine - Urine Performing Organization [facility] one Number [facility] [address] [place] [address] * IRON + BINDING CAPACITY + %SAT+ FERRITIN (09/18/2019 7:02 AM CDT) Iron 22 (L) 50 - 160 MCG/DL [facility] Iron 203 (L) 270 - 380 MCG/DL [facility] Binding-TIBC % Saturation 11 (L) 28 - 42 % [facility] Ferritin 345 (H) 10 - 200 NG/ML [facility] Specimen Performing Organization [facility] one Number [facility] [address] [place] [address] * URINALYSIS, MICROSCOPIC (09/18/2019 1:30 AM CDT) WBCs,UA 10-20 0 - 2 /HPF [facility] RBCs,UA 2-10 0 - 3 /HPF [facility] MucousUA TRACE [facility] Squamous 0-2 0 - 5 [facility] Epithelial Cells Specimen Urine - Urine Performing Organization [facility] Ph one Number [facility] [address] [place] [address] * URINALYSIS DIPSTICK (09/18/2019 1:30 AM CDT) Color,UA YELLOW [facility] Turbidity,UA CLEAR CLEAR-CLEAR [facility] Specific 1.014 1.003 - 1.035 MAIN LAB [place]-Urine pH,UA 5.0 5.0 - 8.0 MAIN LAB Protein,UA 1+ (A) NEG-NEG MAIN LAB Glucose,UA NEG NEG-NEG [facility] Ketones,UA NEG NEG-NEG [facility] Bilirubin,UA NEG NEG-NEG MAIN LAB Blood,UA 2+ (A) NEG-NEG MAIN LAB Urobilinogen,UA NORMAL NORM-NORMAL MAIN LAB Nitrite,UA NEG NEG-NEG MAIN LAB Leukocytes,UA TRACE (A) NEG-NEG MAIN LAB Urine Ascorbic NEG NEG-NEG MAIN LAB Acid, UA Specimen Urine - Urine Performing Organization Address [facility] one Number MAIN LAB [address] [place] [address] * UREA NITROGEN-URINE RANDOM (09/18/2019 1:30 AM CDT) Urea Nitrogen 479 MG/DL MAIN LAB Specimen Urine - Urine Performing Organization Address [facility] one Number MAIN LAB [address] [place] [address] * SODIUM-URINE RANDOM (09/18/2019 1:30 AM CDT) Sodium, Random 53 MMOL/L MAIN LAB Specimen Urine - Urine Performing Organization Address [facility] Ph one Number MA[facility] LAB [address] [place] [address] * CREATININE-URINE RANDOM (09/18/2019 1:30 AM CDT) Creatinine, 97 MG/DL MAIN LAB Random Specimen Urine - Urine Performing Organization Address [facility] Ph one Number MAIN LAB [address] [place] [address] * BLOOD GASES, PERIPHERAL VENOUS (09/18/2019 1:30 AM CDT) pH-Venous 7.21 (L) 7.30 - 7.40 MAIN LAB PCO2-Venous 34 (L) 36 - 50 [facility] PO2-Venous 47 33 - 48 [facility] Base 13.6 MMOL/L [facility] Deficit-Venous O2 Sat-Venous 75.4 (H) 55 - 71 % [facility] Bicarbonate-REGGIE 13.6 MMOL/L MAIN LAB -[place] Specimen Blood, venous - Blood Performing Organization Address City/State/Zipcode Ph one Number MAIN LAB [address] [place] [address] * GENERAL RAD CHEST EXTERNAL IMAGING (09/17/2019 12:00 AM CDT) Specimen Narrative Performed At This order has been auto finalized and does not contain a result. * TELEMETRY STRIPS-SCAN (09/17/2019 12:00 AM CDT) Narrative Performed At This result has an attachment that is n ot available. Ordered by an unspecified provider. * TELEMETRY STRIPS-SCAN (09/17/2019 12:00 AM CDT) Narrative Performed At This result has an attachment that is n ot available. Ordered by an unspecified provider. * TELEMETRY STRIPS-SCAN (09/17/2019 12:00 AM CDT) Narrative Performed At This result has an attachment that is n ot available. Ordered by an unspecified provider. * TELEMETRY STRIPS-SCAN (09/17/2019 12:00 AM CDT) Narrative Performed At This result has an attachment that is n ot available. Ordered by an unspecified provider. * TELEMETRY STRIPS-SCAN (09/17/2019 12:00 AM CDT) Narrative Performed At This result has an attachment that is n ot available. Ordered by an unspecified provider. * TELEMETRY STRIPS-SCAN (09/17/2019 12:00 AM CDT) Narrative Performed At This result has an attachment that is n ot available. Ordered by an unspecified provider. * TELEMETRY STRIPS-SCAN (09/17/2019 12:00 AM CDT) Narrative Performed At This result has an attachment that is n ot available. Ordered by an unspecified provider. * TELEMETRY STRIPS-SCAN (09/17/2019 12:00 AM CDT) Narrative Performed At This result has an attachment that is n ot available. Ordered by an unspecified provider. * TELEMETRY STRIPS-SCAN (09/17/2019 12:00 AM CDT) Narrative Performed At This result has an attachment that is n ot available. Ordered by an unspecified provider. * TELEMETRY STRIPS-SCAN (09/17/2019 12:00 AM CDT) Narrative Performed At This result has an attachment that is n ot available. Ordered by an unspecified provider. * TELEMETRY STRIPS-SCAN (09/17/2019 12:00 AM CDT) Narrative Performed At This result has an attachment that is n ot available. Ordered by an unspecified provider. * TELEMETRY STRIPS-SCAN (09/17/2019 12:00 AM CDT) Narrative Performed At This result has an attachment that is n ot available. Ordered by an unspecified provider. * TELEMETRY STRIPS-SCAN (09/17/2019 12:00 AM CDT) Narrative Performed At This result has an attachment that is n ot available. Ordered by an unspecified provider. * TELEMETRY STRIPS-SCAN (09/17/2019 12:00 AM CDT) Narrative Performed At This result has an attachment that is n ot available. Ordered by an unspecified provider. * TELEMETRY STRIPS-SCAN (09/17/2019 12:00 AM CDT) Narrative Performed At This result has an attachment that is n ot available. Ordered by an unspecified provider. * TELEMETRY STRIPS-SCAN (09/17/2019 12:00 AM CDT) Narrative Performed At This result has an attachment that is n ot available. Ordered by an unspecified provider. * TELEMETRY STRIPS-SCAN (09/17/2019 12:00 AM CDT) Narrative Performed At This result has an attachment that is n ot available. Ordered by an unspecified provider. * TELEMETRY STRIPS-SCAN (09/17/2019 12:00 AM CDT) Narrative Performed At This result has an attachment that is n ot available. Ordered by an unspecified provider. * TELEMETRY STRIPS-SCAN (09/17/2019 12:00 AM CDT) Narrative Performed At This result has an attachment that is n ot available. Ordered by an unspecified provider. * TELEMETRY STRIPS-SCAN (09/17/2019 12:00 AM CDT) Narrative Performed At This result has an attachment that is n ot available. Ordered by an unspecified provider. * TELEMETRY STRIPS-SCAN (09/17/2019 12:00 AM CDT) Narrative Performed At This result has an attachment that is n ot available. Ordered by an unspecified provider. * TELEMETRY STRIPS-SCAN (09/17/2019 12:00 AM CDT) Narrative Performed At This result has an attachment that is n ot available. Ordered by an unspecified provider. * TELEMETRY STRIPS-SCAN (09/17/2019 12:00 AM CDT) Narrative Performed At This result has an attachment that is n ot available. Ordered by an unspecified provider. * TELEMETRY STRIPS-SCAN (09/17/2019 12:00 AM CDT) Narrative Performed At This result has an attachment that is n ot available. Ordered by an unspecified provider. * TELEMETRY STRIPS-SCAN (09/17/2019 12:00 AM CDT) Narrative Performed At This result has an attachment that is n ot available. Ordered by an unspecified provider. * TELEMETRY STRIPS-SCAN (09/17/2019 12:00 AM CDT) Narrative Performed At This result has an attachment that is n ot available. Ordered by an unspecified provider. * TELEMETRY STRIPS-SCAN (09/17/2019 12:00 AM CDT) Narrative Performed At This result has an attachment that is n ot available. Ordered by an unspecified provider. * TELEMETRY STRIPS-SCAN (09/17/2019 12:00 AM CDT) Narrative Performed At This result has an attachment that is n ot available. Ordered by an unspecified provider. * TELEMETRY STRIPS-SCAN (09/17/2019 12:00 AM CDT) Narrative Performed At This result has an attachment that is n ot available. Ordered by an unspecified provider. * TELEMETRY STRIPS-SCAN (09/17/2019 12:00 AM CDT) Narrative Performed At This result has an attachment that is n ot available. Ordered by an unspecified provider. * TELEMETRY STRIPS-SCAN (09/17/2019 12:00 AM CDT) Narrative Performed At This result has an attachment that is n ot available. Ordered by an unspecified provider. * ECG-SCAN (09/17/2019 12:00 AM CDT) Narrative Performed At This result has an attachment that is n ot available. Ordered by an unspecified provider. * ECG-SCAN (09/17/2019 12:00 AM CDT) Narrative Performed At This result has an attachment that is n ot available. Ordered by an unspecified provider. * PROCEDURE RECORD-SCAN (09/17/2019 12:00 AM CDT) Narrative Performed At This result has an attachment that is n ot available. Ordered by an unspecified provider. 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 09/18/2019 8:15 AM Full Code 09/18/2019 12:29 AM Provider has discussed Code Status No, more discussi on w/Patient or Family? needed
--- OUTSIDE RECORDS SUMMARY | 2019-10-16 12:48 | XMS REPORT | Encounter Summary ---
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 Name Role Phone No Pcp, Na PCP Unavailable Reason for Referral * Consult, Test & Treat (Discharge Pending) Referred By Contact Referred To Contact Status Reason Specialty Diagnoses / Procedures Karen Cota MD [address] [place] [address] New Request Procedures APPOINTMENT REQUEST: [facility] (MOB) Reason for Visit * Auth/Cert Referred By Contact Referred To Contact Status Reason Specialty Diagnoses / Procedures Diagnoses Acute renal failure (ARF) (HCC) acute renal failure Encounter Details Care Team Description Date Type Department Yisel Carlos MD [address] [place] [address] [phone] Armin Machado MD [address] [place] [address] [phone] Yovana Falcon DO [address] [place] [address] [phone] Carolin Paula MD [address] [place] [address] [phone] Luis Carlos Velez DO [address] [address] [phone] Karen Cota MD [address] [facility] [place] [address] [phone] Acute renal failure (ARF) (HCC) 09/17/2019 [facility] 10/11/[address] [place] [address] Social History Date Tobacco Use Types Packs/Day [...] or suspected to have Coronavirus / COVID-19? documented as of this encounter Last Filed Vital Signs Reading Time Taken [...] 10/03/2019 11:00 AM CDT Body Mass Index documented in this encounter Functional Status Date of Assessment Functional Status Response 10/11/2019 Does the patient have a hearing impairment: No 10/11/2019 Does the patient have a visual impairment: No 10/11/2019 Does the patient have impaired ambulation: Yes 10/11/2019 Does the patient have an activity of daily living Ye s (ADL) impairment: 10/11/2019 Does the patient have an instrumental activity of Ye s daily living (IADL) impairment: Date of Assessment Cognitive Status Response 10/11/2019 Does the patient have a cognitive impairment: No documented as of this encounter Discharge Summaries * Julian Malloy MD - 10/09/2019 1:54 PM CDT Physician Discharge Summary Name: Mary Tim Date Of : 1950 Age: 69 years Admit date: 09/17/2019 Discharge date: 10/11/2019 Attending Physician: Karen Cota MD Service: Hematology Physician Summary completed by: Julian Malloy MD Reason for hospitalization: Progressive Dyspnea and ROSHAN 2/2 Newly Diagnosed DLBC L Significant PMH: Medical History: Diagnosis Date Back pain with history of spinal surgery Chronic pain Diffuse large B cell lymphoma (HCC) Hypertension Sarcoidosis Allergies: Mobic [meloxicam] Admission Physical Exam notable for: Vital Signs: Last Filed In 24 Hours Vital Signs: 24 Hour Range BP: 152/70 (09/17 912) Temp: 36.8 C (98.2 F) (09/17 912) Pulse: 101 (09/17 912) Respirations: 20 PER MINUTE (09/17 912) SpO2: 97 % (09/17 912) Height: 162.6 cm (64") (09/16 2350) BP: (146-157)/(70-77) Temp: [36.4 C (97.6 F)-36.9 C (98.4 F)] Pulse: [98-108] Respirations: [18 PER MINUTE-20 PER MINUTE] SpO2: [97 %-99 %] General: Alert, no acute distress HEENT: PERRLA, EOMI, moist mucous membranes, neck supple and midline Lungs: bilateral basilar crackles Heart: RRR, no m/r/g Abdomen: Soft, mild generalized tenderness, nondistended Extremities: 1+ LE edema, no cyanosis, 2+ pedal pulses bilaterally Skin: warm, dry, intact, no petechiae or rashes Neuro: speech fluent, no focal deficits appreciated Psych: appropriate mood and behavior Admission Lab/Radiology studies notable for: WBC 7.4 Hgb 8.8 Plts 315 BUN 100 Cr 6.99 Anion Gap 20 Brief Hospital Course: Mary Tim is a 69-year-old F with PMH of HTN and cervical (C3-C7) and lumb ar (L3-L5) spinal fusions who presented to [facility] 09/16 for progressively wor sening weakness and fatigue over the past 2 months and was found to have acute r enal failure and hyperkalemia and anion gap metabolic acidosis. Work-up this adm ission, including diagnostic LP and PET CT consistent with new diagnosis of DLBC L. CT of the chest 09/23 for evaluation of dyspnea and new oxygen requirement rev ealed findings concerning for sarcoidosis. Pulmonary was consulted and bronch wi th lymph node biopsy revealed granuloma formation. PFTs consistent with restrict david pattern. Dilated gallbladder was also seen on CT, so GI was consulted for fu rther recommendation. Patient will f/u for EUS as outpatient. PET CT 10/02 reveal ed diffuse mesenteric and osseous involvement of disease. DLBCL involvement in t he kidneys was confirmed on renal biopsy 09/28, and was determined to be the caus e of the patient's acute renal failure on admission. Nephrology was consulted, a nd patient received tunneled R IJ and initiated on inpatient dialysis. Diagnosti c LP 10/02 was negative for malignant cells. BMBx 10/03 with normocellular marrow and negative for lymphoma. Patient was subsequently transferred to the [facility] 10/04 and initiated on C1 R-CHOP. Patient received 2 rounds LP IT c hemo with IR this cycle. Flow from LP 10/06 negative for lymphoma. Patient requir ed inpatient dialysis several more times prior to discharge. Her back pain and a bdominal pain continued to improved with chemotherapy, and her oxygen requiremen t decreased from 3L on admit to 1L on discharge. She was discharged 10/10 in stab le and improved condition. Medication changes and follow-up. Patient will discharge to SNF in [place] an d will f/u with Dr. Zhong for outpatient oncology. SNF should be aware that [facility] may require oxygen on discharge. She will f/u with pulm for steroid angel atment plan for suspected sarcoidosis. She will f/u with GI as outpatient in the future for possible EUS. Patient was discharged with prescriptions for acyclovi r, fluconazole, and levaquin antimicrobial prophylaxis in the setting of newly d iagnosed DLBCL s/p cycle 1 chemotherapy. She was also prescribed low-dose ativan for nausea/vomiting and anxiety relief. [place] was not resumed on discharge, as she did not require it for several days prior to discharge and denied further pa in. Allopurinol was prescribed to prevent hyperuricemia s/p C1 chemotherapy. Condition at Discharge: Stable Discharge Diagnoses: Hospital Problems Active Problems * (Principal) Acute renal failure (ARF) (HCC) Hyperkalemia High anion gap metabolic acidosis UTI (urinary tract infection) Physical debility ILD (interstitial lung disease) (HCC) Anemia Abnormal CT of the chest Abnormal abdominal CT scan Elevated CA 19-9 level Diffuse large B-cell lymphoma of lymph nodes of multiple regions (HCC) Surgical Procedures: None Significant Diagnostic Studies and Procedures: noted in brief hospital course Consults: GI, Hematology, Hepatology, Nephrology and Pulmonary Patient Disposition: [facility]dc Facility Patient instructions/medications: Renal Diet Your diet will need to be low in potassium and phosphorous. Keep track of your sodium intake and limit it to 2000mg (milligrams) per day. If you have any questions regarding your diet at home, you may contact a dietiti an at [phone]. Testing Not Required for Covid-19 Testing Not Required for Covid-19 Report These Signs and Symptoms Please contact your doctor if you have any of the following symptoms: temperatu re higher than 100.4 degrees F, uncontrolled pain, persistent nausea and/or vomi ting, difficulty breathing, chest pain, severe abdominal pain, headache, unable to urinate, unable to have bowel movement or drainage with a foul odor Questions About Your Stay For questions or concerns regarding your hospital stay, call [phone]. Discharging attending physician: KAREN COTA [[id number]] Activity as Tolerated It is important to keep increasing your activity level after you leave the hosp ital. Moving around can help prevent blood clots, lung infection (pneumonia) an d other problems. Gradually increasing the number of times you are up moving ar ound will help you return to your normal activity level more quickly. Continue to increase the number of times you are up to the chair and walking daily to ret urn to your normal activity level. Begin to work toward your normal activity lev el at discharge Tunneled Catheter Line Long Term Care Instructions: The bandage over the catheter exit site must be kept clean and dry. Only a heal thcare provider may change the dressing. Place a waterproof covering, such as p lastic wrap, over the catheter when showering. Never submerge the catheter in a bathtub, hot tub, or swimming pool. OT EVAL & TREAT PT EVAL & TREAT Current Discharge Medication List START taking these medications Details acyclovir (ZOVIRAX) 200 mg capsule Take one capsule by mouth twice daily. Qty: 60 capsule, Refills: 1 PRESCRIPTION TYPE: No Print allopurinoL (ZYLOPRIM) 100 mg tablet Take one tablet by mouth daily. Take with f ood. Qty: 30 tablet, Refills: 0 PRESCRIPTION TYPE: No Print amLODIPine (NORVASC) 10 mg tablet Take one tablet by mouth daily. Qty: 90 tablet, Refills: 0 PRESCRIPTION TYPE: No Print cyanocobalamin (VITAMIN B-12) 500 mcg tablet Take two tablets by mouth daily. Qty: 90 tablet, Refills: 1 PRESCRIPTION TYPE: No Print fluconazole (DIFLUCAN) 200 mg tablet 200mg three times weekly following dialysis for three doses. PRESCRIPTION TYPE: No Print folic acid (FOLVITE) 1 mg tablet Take one tablet by mouth daily. Qty: 90 tablet, Refills: 1 PRESCRIPTION TYPE: No Print levoFLOXacin (LEVAQUIN) 500 mg tablet Take one tablet by mouth every 48 hours. PRESCRIPTION TYPE: No Print LORazepam (ATIVAN) 0.5 mg tablet Take one tablet by mouth every 6 hours as neede d. Qty: 12 tablet, Refills: 0 PRESCRIPTION TYPE: Print senna (SENOKOT) 8.6 mg tablet Take two tablets by mouth at bedtime as needed for Constipation. Qty: 90 tablet PRESCRIPTION TYPE: No Print vitamins, multi B, C, Zn & folate (Renal) (NEPHPLEX RX) 1-60-300-12.5 nb-hm-[id number]-mg tab Take one tablet by mouth daily. Qty: 90 tablet, Refills: 1 PRESCRIPTION TYPE: No Print The following medications were removed from your list. This list includes medic ations discontinued this stay and those removed from your prior med list in our system calcium carbonate (TUMS) 500 mg (200 mg elemental calcium) chewable tablet enalapril (VASOTEC) 10 mg tablet hydroCHLOROthiazide (HYDRODIURIL) 25 mg tablet HYDROcodone/acetaminophen (NORCO) 10/325 mg tablet potassium chloride SR (K-DUR) 10 mEq tablet Scheduled appointments: Oct 10, 2019 10:15 AM CDT (Arrive by 9:15 AM) GENERAL IR LUMBAR PUNCTURE with Ruy Mcguire MD, IR ROOM 3 [facility]iology (Interv Radiolo gy) [address] [id number] Nov 20, 2019 12:30 PM CDT Return Patient with Eric Juarez MD [facility] (Internal Medicine) [address] [facility] [id number] Pending items needing follow up: CSF flow and cytology from LP 10/09. Onc, pulm, and GI f/u outpatient. Signed: Julian Malloy MD 10/09/2019 cc: Primary Care Physician: No Pcp, Na Verified Referring physicians: Unknown, Unknown, MD Additional provider(s): Associated attestation - Karen Cota MD - 10/11/2019 2:30 PM CDT ATTESTATION I personally performed the ruiz portions of the E/M visit, discussed case with re sident and concur with resident documentation of history, physical exam, assessm ent, and treatment plan unless otherwise noted. Karen Cota [phone] documented in this encounter Discharge Instructions * Discharge Instr - Case Management* Zakia Stinson RN - 10/09/2019 1:13 PM CDT You are scheduled for outpatient hemodialysis every Monday, , and at 10:15 AM. Your first chair time is scheduled for this Monday, 0 and you will need to arrive no later than 10:00 AM for your first appointment. The location is: [facility] P: [address] [place] [address] Thank you and it has been a pleasure taking care of your discharge needs! Zakia Stinson RN, BSN Nurse Medical Office RepPlasterer Maintenance / Surgical Non-Transplant Pager: documented in this encounter Medications at Time of Discharge Start Date End Date Medication Sig Dispensed Refills 10/11/2019 acyclovir (ZOVIRAX) 200 Take one 60 capsule 1 mg capsule capsule by mouth twice daily. 10/11/2019 allopurinoL (ZYLOPRIM) Take one 30 tablet 0 100 mg tablet tablet by mouth daily. Take with food. 10/11/2019 amLODIPine (NORVASC) 10 Take one 90 tablet 0 mg tablet tablet by mouth daily. 10/11/2019 cyanocobalamin (VITAMIN Take two 90 tablet 1 B-12) 500 mcg tablet tablets by mouth daily. 10/11/2019 fluconazole (DIFLUCAN) 200mg three 0 200 mg tablet times weekly following dialysis for three doses. 10/11/2019 folic acid (FOLVITE) 1 mg Take one 90 tablet 1 tablet tablet by mouth daily. 10/11/2019 levoFLOXacin (LEVAQUIN) Take one 0 500 mg tablet tablet by mouth every 48 hours. 10/11/2019 LORazepam (ATIVAN) 0.5 mg Take one 12 tablet 0 tablet tablet by mouth every 6 hours as needed. 10/11/2019 senna (SENOKOT) 8.6 mg Take two 90 tablet 0 tablet tablets by mouth at bedtime as needed for Constipation. 10/11/2019 vitamins, multi B, C, Zn Take one 90 tablet 1 & folate (Renal) tablet by (NEPHPLEX RX) mouth daily. 1-60-300-12.5 ix-tb-wrw-mg tab documented as of this encounter Progress Notes * Tanika Jones RN - 10/11/2019 12:25 PM CDT I have reviewed the notes, assessment, and/or procedures performed by Jolly espinosa RN and concur with her/his documentation unless otherwise noted. * Jolly Blank RN - 10/11/2019 12:25 PM CDT Discharge teaching reviewed with pt. Teaching included diet, activity, medicatio ns, signs and symptoms of infection, upcoming appointments and line care. Pt maribel balized understanding. Pt transported via wheelchair off unit. Report given to Solange Mendoza in [place], [place]. * Paz Epstein PTA - 10/11/2019 10:09 AM CDT PHYSICAL THERAPY PROGRESS NOTE Name: Mary Tim : 1950 Age: [age] y.o. Admission Date: 09/17/2019 LOS: 23 days Mobility Progressive Mobility Level: Walk in room Distance Walked (feet): 30 ft Level of Assistance: Stand by assistance Assistive Device: Walker Time Tolerated: 11-30 minutes Activity Limited By: Fatigue;Weakness Subjective Significant hospital events: PMH: back pain, cervical fusion, lumbar fusion, chr onic pain, HTN. Reason for admission: Progressively worsening weakness and fatig ue. Patient was found to have acute renal failure with hyperkalemia and anion ga p metabolic acidosis.renal biopsy 09/29. HD cathether placement 09/[address] anned for 09/30 and 10/01 for anticipation of improved renal function. Mental / Cognitive Status: Alert;Oriented;Cooperative Persons Present: Nursing Staff(at end of session) Pain: Patient has no complaint of pain Pain Interventions: Patient agrees to participate in therapy Comments: Pt was sitting in the chair, she inquired about when she would be diane sferred to the facility. During the session, pt received a phone call that said she would be leaving at noon. Comments: room air Ambulation Assist: Independent Mobility in Community without Device Patient Owned Equipment: Single Point Cane;Roller Walker Home Situation: Lives Alone Type of Home: Mobile Home Entry Stairs: 3-5 Stairs;Rail on 1 Side In-Home Stairs: No Stairs Bed Mobility/Transfer Transfer Type: Sit to/from Stand Transfer: Assistance Level: To/From;Bed Side Chair;Standby Assist Transfer: Assistive Device: Roller Walker Transfers: Type Of Assistance: For Safety Considerations End Of Activity Status: Up in Chair(nurses in room) Gait Gait Distance: 30 feet Gait: Assistance Level: Standby Assist;Safety Considerations Gait: Assistive Device: Roller Walker Gait: Descriptors: Pace: Slow;Decreased foot clearance RLE;Decreased foot cleara nce LLE;No balance loss Activity Limited By: Complaint of Fatigue;Weakness Assessment/Progress Comments: Pt is primarily limited by generalized deconditioning. Anticipate pt will be able to return to her previous living situation after continued therapy. AM-PAC 6 Clicks Basic Mobility Inpatient Turning from your back to your side while in a flat bed without using bed rails: None Moving from lying on your back to sitting on the side of a flatbed without using bedrails : None Moving to and from a bed to a chair (including a wheelchair): A Little Standing up from a chair using your arms (e.g. wheelchair, or bedside chair): A Little To walk in hospital room: A Little Climbing 3-5 steps with a railing: A Little Raw Score: 20 Standardized (T-scale) Score: 43.99 Basic Mobility CMS 0-100%: 33.32 CMS G Code Modifier for Basic Mobility: CJ Goals Goal Formulation: With Patient Time For Goal Achievement: 5 days, To, 7 days Patient Will Transfer Bed/Chair: Independently Patient Will Ambulate: Greater than 200 Feet, w/ No Device, Independently Patient Will Go Up / Down Stairs: 3-5 Stairs, Independently Plan Treatment Interventions: Mobility Training Plan Frequency: 5 Days per Week PT Plan for Next Visit: *ambulation with chair follow *sit <> stand with emphasis on eccentric control PT Discharge Recommendations Recommendation: Inpatient setting Therapist: Paz Epstein, Physical therapist tv production assistant Date: 10/11/2019 * Gloria Head OT - 10/11/2019 9:13 AM CDT OCCUPATIONAL THERAPY PROGRESS NOTE Name: Mary Tim : 1950 Age: [age] y.o. Admission Date: 09/17/2019 LOS: 23 days Mobility Patient Turn/Position: Self Progressive Mobility Level: Walk in room Distance Walked (feet): 50 ft Level of Assistance: Stand by assistance Assistive Device: Walker Time Tolerated: 11-30 minutes Activity Limited By: Fatigue Subjective Pertinent Dx per Physician: PMH: back pain, cervical fusion, lumbar fusion, & chronic pain- admit with worsening weakness/fatigue & found to have acute renal failure with hyperkalemia & anion gap metabolic acidosis Precautions: Falls;O2 Requirement(2L 02 via NC) Pain / Complaints: Patient has no c/o pain;Patient agrees to participate in ther apy Comments: RN cleared patient to participate in OT session. At beginning of sessi on, patient was supine in bed. At end of session, patient was sitting in bedside chair, chair alarm on. RN notified. Objective Psychosocial Status: Willing and Cooperative to Participate Persons Present: Nursing Staff Home Living Type of Home: Mobile Home Home Layout: One Level;Stairs to Enter w/ Rails(3-5 stairs w/ rail to enter) Bathroom Shower / Tub: Tub/Shower Unit Bathroom Toilet: Standard Bathroom Equipment: Grab Bars in Shower;Shower Chair Prior Function Level Of [place]: Independent with ADLs and functional transfers;Independen t with homemaking w/ ambulation Lives With: Alone Receives Help From: None Needed Other Function Comments: Denies recent h/o falls but does report falling ~6 year s ago in her bathtub which ultimately resulted in her back surgeries. Lives devora e with no assist available. Pt reports that she plans to return home with her 88 y.o. sister and [id number]. Indicates that they both use walkers and take c are of eachother. Pt also reports that her sister has a paid caregiver to assist with IADLs whom will likely provide her with transportation home at discharge. ADL's Where Assessed: Standing at Sink;In Bathroom Eating Assist: Independent Eating Deficits: No Assist Needed Grooming Assist: Stand By Assist Grooming Deficits: Steadying;Wash/Dry Hands;Wash/Dry Face UE Dressing Assist: Minimal Assist UE Dressing Deficits: Thread RUE;Thread LUE;Pull Around Back;Pull Down In Back Toileting Assist: Stand By Assist Toileting Deficits: Clothing Management Up;Clothing Management Down;Perineal Hyg iene Comment: Seated EOB, requires minimal assistance to don hospital gown around manda k, completed toileting and toilet transfer with SBA using walker. Transferred in to chair with SBA using walker. ADL Mobility Bed Mobility: Supine to Sit: Standby assist Bed Mobility: Sit to Supine: Standby assist Transfer Type: Sit to stand Transfer: Assistance Level: To/from;Toilet;Standby assist Transfer: Assistive Device: Roller walker Other Transfer Type: Stand to sit Other Transfer: Assistance Level: To;Bedside chair;Standby assist Other Transfer: Assistive Device: Roller walker End of Activity Status: Up in chair Gait Distance: 50 feet Gait: Assistance Level: Standby assist Gait: Assistive Device: Roller walker Activity Tolerance Endurance: 3/5 Tolerates 25-30 Minutes Exercise w/Multiple Rests UE Strength / Tone Overall Strength / Tone: WFL Able to Perform ADL Tasks;4/5 Education Persons Educated: Patient Topics: Role of OT, Goals for Therapy;ADL Compensatory Techniques;Adaptive Devic es for ADLs Goal Formulation: With Patient Assessment Assessment: Decreased ADL Status;Decreased Endurance;Decreased Self-Care Trans;D ecreased High-Level ADLs Prognosis: Good;w/Cont OT s/p Acute Discharge Goal Formulation: Patient Comments: Patient making appropriate gains towards OT goals. Patient would benef it from continued OT intervention in acute care setting to increase OOB activiti es. AM-PAC 6 Clicks Daily Activity Inpatient Putting on and taking off regular lower body clothes?: A Little Bathing (Including washing, rinsing, drying): A Little Toileting, which includes using toilet, bedpan, or urinal: A Little Putting on and taking off regular upper body clothing: None Taking care of personal grooming such as brushing teeth: None Eating meals?: None Daily Activity Raw Score: 21 Standardized (t-scale) score: 44.27 CMS 0-100% Score: 32.79 CMS G Code Modifier: CJ Plan Progress: Progressing Toward Goals OT Frequency: 3-5x/week OT Plan for Next Visit: progress mobility, standing endurance ADLs ADL Goals Patient Will Perform Grooming: Standing at Sink;w/ Mod Independent Patient Will Perform LE Dressing: w/ Modified Independent Patient Will Perform Toileting: w/ Modified Independent Functional Transfer Goals Pt Will Perform All Functional Transfers: Modified Independent OT Discharge Recommendations Recommendation: Inpatient setting Patient Currently Requires Physical Assist With: All mobility;All personal care ADLs Patient Currently Requires Equipment: Walker with wheels Patient requires the use of a walker with wheels to complete ADLs in the home including meal preparation, ambulation the bathroom for toileting, bathing and grooming, and safe home mobility. Patient is unable to complete these ADLs w ith a cane or crutch and can safely use the walker. Therapist: EDWIN [place] [id number] Date: 10/11/2019 * Julian Malloy MD - 10/11/2019 8:14 AM CDT General Progress Note Name: Mary Tim Today's Date: 10/11/2019 Admission Date: 09/17/2019 LOS: 23 days Assessment/Plan: Principal Problem: Acute renal failure (ARF) (HCC) Active Problems: Hyperkalemia High anion gap metabolic acidosis UTI (urinary tract infection) Physical debility ILD (interstitial lung disease) (HCC) Anemia Abnormal CT of the chest Abnormal abdominal CT scan Elevated CA 19-9 level Diffuse large B-cell lymphoma of lymph nodes of multiple regions (HCC) Mary Tim is a 69-year-old F with PMH of HTN and cervical (C3-C7) and lumb ar (L3-L5) spinal fusions who presented to [facility] 09/16 for progressively wor sening weakness and fatigue over the past 2 months and was found to have acute r enal failure and hyperkalemia and anion gap metabolic acidosis. Work-up this adm ission, including diagnostic LP and PET CT consistent with DLBCL. #DLBCL, Stage IV, GCB sub-type CD20+ - FISH for Myc, Ki-67 pending - PET CT 10/02: shows kidney, ureters, gallbladder, uterus, gastric, osseus, panc reatic pulmonary, hepatic, and adrenal involvement of disease - Diagnostic LP 10/03, negative for malignant cells. High IC DESIGNER CUSTOM-IPI - s/p BMBx 10/03: normocellular marrow, negative for lymphoma - ECOG status 1 - Renal biopsy from 09/28 shows pathology that is consistent with DLBCL - R-CHOP C1D8 PLAN > IT chemo with IR 10/09 > Patient from [place], [place] but is willing to travel to [place] for treatment. Dr. Zhong in [place] may be able to handle OP treatment. > f/u GI outpt for possible panc/stomach involvement > Will monitor TLS labs BID - s/p rasburicase 3mg 10/08. Uric acid this AM 5.0 > PPx with acyclovir 200 mg BID > Continue allopurinol 100 mg daily #Oliguric ROSHAN, likely 2/2 DLBCL Infiltration #Anion-Gap Metabolic Acidosis -pathology of renal bx shows DLBCL; see above - It is unknown if kidneys will regain sufficient function to not need HD. Unabl e to determine ESRD status for another 3 months. Additionally, will depend on DL BCL response however renal is cautiously optimistic renal recovery will occur PLAN > Continue sodium bicarb tablets > HD TTS > Patient currently with right tunneled IJ for access, which is sufficient for long-term HD access > BMP BID #Sarcoidosis - likely stage 2 - ILD Labs largely negative except for elevated Aldolase at 9.2. - PFTs restrictive pattern. - Bronchoscopy negative pathology, cultures - Lymph node biopsy results showing granuloma formationand in conjunction with CT findings isconcerning for sarcoidosis. PLAN > Pulm consulted, will f/u in clinic after discharge for further steroid management #Thrush - Fluconazole 200mg following HD for 4 doses at d/c #UTI, resolved -e. coli and enterobacter. completedrocephin for 7 days09/25 #Constipation > Miralax, senokot PRN > Hold dulcolax #HTN > Hold CECE, HCTZ > Blood pressure mildly elevated.On [id number] #Chronic Back Pain > will hold [place] for now, given chemo regimen > emu oil prn #Normocytic Anemia - Status post 1 PRBC09/24.hemoglobin around 10. - Iron studies showed mixed picture of iron deficiency and anemia of chronic d isease - B12 and folate low, continue - LDH elevated. Haptoglobin normal. Peripheral smear showed normocytic anemia. Absolute lymphocytopenia. Mild monocytosis. PLAN >Transfuse if hemoglobin less than 7 #Transaminitis, mild - resolved #Physical debility #Impaired Dentition > PT OT eval. 10/03 recommending inpatient.Patient agreeable for rehab. SW To assist with placement > Patient will get new dentures following discharge FEN: hold IVFs for now, regular diet, replace lytes PRN VTE PPx: Heparin subq Code: Full Disp: discharge today Patient seen and discussed with Dr. Cipriano Malloy MD Internal Medicine, PGY-2 Available on Voalte Subjective No acute events overnight. Patient was seen at bedside this morning. She is an xious to discharge to her facility this morning. She feels well and has no new complaints she still has stable, improving abdominal pain. She denies shortness of breath and cough this morning. She was breathing comfortably on room air morning. She otherwise denies nausea, vomiting, constipation. Medications Scheduled Meds:acyclovir (ZOVIRAX) capsule 200 mg, 200 mg, Oral, BID allopurinoL (ZYLOPRIM) tablet 100 mg, 100 mg, Oral, QDAY amitriptyline/gabapentin/emu oil(#) 4/4/10 % topical cream, , Topical, Q8H amLODIPine (NORVASC) tablet 10 mg, 10 mg, Oral, QDAY cyanocobalamin (VITAMIN B-12) tablet 1,000 mcg, 1,000 mcg, Oral, QDAY filgrastim-sndz (ZARXIO) inj syringe 300 mcg, 300 mcg, Subcutaneous, Q24H* folic acid (FOLVITE) tablet 1 mg, 1 mg, Oral, QDAY heparin (porcine) PF syringe 5,000 Units, 5,000 Units, Subcutaneous, Q8H* mineral oil/hydrophilic petrolatum (AQUAPHOR, DERMAPHOR) topical ointment, , Top ical, QDAY polyethylene glycol 3350 (MIRALAX) packet 34 g, 2 packet, Oral, QDAY senna (SENOKOT) tablet 2 tablet, 2 tablet, Oral, QHS sodium bicarbonate tablet 650 mg, 650 mg, Oral, BID vitamins, multi B, C, Zn & folate (Renal) (NEPHPLEX RX) tablet 1 tablet, 1 tablet, Oral, QDAY Continuous Infusions: PRN and Respiratory Meds:calcium carbonate Q6H PRN, guaiFENesin Q4H PRN, LORazep am Q6H PRN, melatonin QHS PRN, simethicone Q6H PRN, sodium chloride 0.9% irrigat ion bottle PRN, vitamin A & D PRN Review of Systems: Positive for abdominal pain, anxiety Negative for nausea, vomiting, shortness of breath, constipation, fevers, chills , headache, back pain Objective: Vital Signs: Last Filed Vital Signs: 24 Fernanda r Range BP: 126/54 (10/11 235) Temp: 37 C (98.6 F) (10/11 235) Pulse: 90 (10/11 235) Respirations: 18 PER MINUTE (10/11 235) SpO2: 93 % (10/11 235) SpO2 Pulse: 94 (10/09 1644) BP: (97-144)/(53-80) Temp: [36.4 C (97.6 F)-37.1 C (98.8 F)] Pulse: [56-101] Respirations: [17 PER MINUTE-24 PER MINUTE] SpO2: [92 %-98 %] Intensity Pain Scale (Self Report): 0 (10/10/19 1645) Vitals: 10/10/19 0240 10/10/19 1323 10/10/19 1645 Weight: 75.6 kg (166 lb 9.6 oz) 71 kg (156 lb 8.4 oz) 70.5 kg (155 lb 6.8 oz) Intake/Output Summary: (Last 24 hours) Intake/Output Summary (Last 24 hours) at 10/11/2019 0814 Last data filed at 10/11/2019 0236 Gross per 24 hour Intake 680 ml Output 1204 ml Net -524 ml Stool Occurrence: 1 Physical Exam GEN: No distress. Laying down comfortably in bed Head: Normocephalic, atraumatic. Eyes: EOMI CV: Normal rate and rhythm. No murmurs Pulmonary: Breathing is not labored. Lungs CTA bilaterally. Satting on room ai r with normal effort Abdomen: Soft, nondistended. Bowel sounds present. Mildly tender to palpation in left and mid quadrants Extremities: No lower extremity edema bilaterally. Skin: No rash on exposed areas of skin. Port in left upper chest and HD cath in right IJ without surrounding erythema or tenderness Neuro: Normal strength in bilateral UEs and LEs psych: Mildly anxious, normal affect Lab Review 24-hour labs: Results for orders placed or performed during the hospital encounter of 09/17/19 (from the past 24 hour(s)) URIC ACID, RASBURICASE Collection Time: 10/10/19 9:20 AM Result Value Ref Range Uric Acid, Rasburicase 5.0 2.0 - 7.0 mg/dL POC GLUCOSE Collection Time: 10/10/19 11:37 AM Result Value Ref Range Glucose, POC 133 (H) 70 - 100 MG/DL CELL COUNT W/DIFF-CSF Collection Time: 10/10/19 11:54 AM Result Value Ref Range Cell Count Tube,CSF TUBE 3 White Blood Cells,CSF 10 (H) <5 /UL Red Blood Cells,CSF 2,100 /UL Neutrophils, CSF 91 % Lymphocytes, CSF 7 % Monocyte/Hisotocyte, CSF 2 % Clarity,CSF BLOODY Path Interpretation, CSF Pathologist Signature TOTAL PROTEIN-CSF Collection Time: 10/10/19 11:54 AM Result Value Ref Range Total Protein,CSF 35 15 - 45 MG/DL GLUCOSE-CSF Collection Time: 10/10/19 11:54 AM Result Value Ref Range Glucose,CSF 92 (H) 40 - 75 MG/DL Xanthochromia,CSF NONE BASIC METABOLIC PANEL Collection Time: 10/10/19 5:11 PM Result Value Ref Range Sodium 140 137 - 147 MMOL/L Potassium 3.5 3.5 - 5.1 MMOL/L Chloride 104 98 - 110 MMOL/L CO2 25 21 - 30 MMOL/L Anion Gap 11 3 - 12 Glucose 82 70 - 100 MG/DL Blood Urea Nitrogen 32 (H) 7 - 25 MG/DL Creatinine 1.86 (H) 0.4 - 1.00 MG/DL Calcium 7.8 (L) 8.5 - 10.6 MG/DL eGFR Non 27 (L) >60 mL/min eGFR 33 (L) >60 mL/min PROTIME INR (PT) Collection Time: 10/11/19 2:40 AM Result Value Ref Range INR 1.2 0.8 - 1.2 COMPREHENSIVE METABOLIC PANEL Collection Time: 10/11/19 2:40 AM Result Value Ref Range Sodium 140 137 - 147 MMOL/L Potassium 4.0 3.5 - 5.1 MMOL/L Chloride 103 98 - 110 MMOL/L Glucose 104 (H) 70 - 100 MG/DL Blood Urea Nitrogen 44 (H) 7 - 25 MG/DL Creatinine 2.52 (H) 0.4 - 1.00 MG/DL Calcium 7.8 (L) 8.5 - 10.6 MG/DL Total Protein 5.1 (L) 6.0 - 8.0 G/DL Total Bilirubin 0.6 0.3 - 1.2 MG/DL Albumin 2.8 (L) 3.5 - 5.0 G/DL Alk Phosphatase 107 25 - 110 U/L AST (SGOT) 28 7 - 40 U/L CO2 25 21 - 30 MMOL/L ALT (SGPT) 43 7 - 56 U/L Anion Gap 12 3 - 12 eGFR Non 19 (L) >60 mL/min eGFR 23 (L) >60 mL/min LDH-LACTATE DEHYDROGENASE Collection Time: 10/11/19 2:40 AM Result Value Ref Range Lactate Dehydrogenase 312 (H) 100 - 210 U/L URIC ACID Collection Time: 10/11/19 2:40 AM Result Value Ref Range Uric Acid <1.5 (L) 2.0 - 7.0 MG/DL CBC AND DIFF Collection Time: 10/11/19 2:40 AM Result Value Ref Range White Blood Cells 6.2 4.5 - 11.0 K/UL RBC 2.62 (L) 4.0 - 5.0 M/UL Hemoglobin 8.3 (L) 12.0 - 15.0 GM/DL Hematocrit 23.4 (L) 36 - 45 % MCV 89.5 80 - 100 FL MCH 31.8 26 - 34 PG MCHC 35.5 32.0 - 36.0 G/DL RDW 13.1 11 - 15 % Platelet Count 127 (L) 150 - 400 K/UL MPV 7.4 7 - 11 FL Neutrophils 96 (H) 41 - 77 % Lymphocytes 2 (L) 24 - 44 % Monocytes 1 (L) 4 - 12 % Eosinophils 1 0 - 5 % Basophils 0 0 - 2 % Absolute Neutrophil Count 5.96 1.8 - 7.0 K/UL Absolute Lymph Count 0.15 (L) 1.0 - 4.8 K/UL Absolute Monocyte Count 0.05 0 - 0.80 K/UL Absolute Eosinophil Count 0.05 0 - 0.45 K/UL Absolute Basophil Count 0.01 0 - 0.20 K/UL Point of Care Testing (Last 24 hours) Glucose: (!) 104 (10/11/19 0240) POC Glucose (Download): (!) 133 (10/10/19 1137) Radiology and other Diagnostics Review: Pertinent radiology reviewed. Julian Malloy MD Pager [phone] Associated attestation - Karen Cota MD - 10/11/2019 2:29 PM CDT ATTESTATION I personally performed the ruiz portions of the E/M visit, discussed case with re sident and concur with resident documentation of history, physical exam, assessm ent, and treatment plan unless otherwise noted. total floor time perfroming discharge : 35 min Karen Cota [phone] * Luda Ellison, RT - 10/10/2019 10:27 PM CDT RT Adult Assessment Note NAME:Mary Tim :1950 AGE: 69 y.o. ADMISSION DATE: 09/17/2019 DAYS ADMITTED: LOS: 22 days RT Treatment Plan: Additional Comments: Impressions of the patient: No SOB observed or reported at this time. Pt denies history of COPD, Asthma and [place]. Intervention(s)/outcome(s): IS Patient education that was completed: none Recommendations to the care team: none Vital Signs: Pulse: 98 RR: 18 PER MINUTE SpO2: 95 % O2 Device: Liter Flow: 2 Lpm O2%: Breath Sounds: Respiratory Effort: * Levar Coleman, DO - 10/10/2019 5:14 PM CDT Renal Progress Note Mary Tim Admission Date: 09/17/2019 Assessment and Plan Principal Problem: Acute renal failure (ARF) (HCC) Active Problems: Hyperkalemia High anion gap metabolic acidosis UTI (urinary tract infection) Physical debility ILD (interstitial lung disease) (HCC) Anemia Abnormal CT of the chest Abnormal abdominal CT scan Elevated CA 19-9 level Diffuse large B-cell lymphoma of lymph nodes of multiple regions (HCC) Mary Tim is a 69 y.o. female ROSHAN - Initially though to be prerenal azotemia and had been on HCTZ and CECE. She had some hydronephrosis on US that was not felt signficant. - Creatinine improved from a peak of 7.32 to a ashley of 5.8 before now worsening again. - She has 0.9 grams protineuria, had 2+ blood on UA 09/17 and 10-20 WBC. UC from grew E coli and Enterobacter. Urine sediment exam had been consistent with UT I. - She has negative MPO/PR3 and hepatitis testing. - She had a CT which showed enlarged kidneys with infiltrative process - Kidney function has not improved - biopsy has shown infiltratation of her kidneys by DLBCL and she started chemot herpathy 10/04 ILD Anemia -had required a transfusion 09/24 Metabolic acidosis - improved Hyperkalemia - improved Recommendations: - Evaluated on dialysis and stable - Avoid nephrotoxins as able - Will evaluate for dialysis needs daily. - Please provide nutritional supplements as without her dentures she has been un able to chew. - Her creatinine trend has been overall declining. She is making normal UOP. I h eld on dialysis today in order to trend her creatinine and see if she is improvi ng. Likely will need dialysis tomorrow and will plan for this but may cancel if she is starting to clear more. Levar Coleman DO Pager [phone] Subjective HPI: Mary Tim is a 69 y.o. female was feeling okay. I saw her on dialysis . She is very worried about her insurance not covering the cost to get her home. Besides this she was doing well. She is on oxygen but denies dyspnea. She denied nausea. She has been making a good amount of urine and has not had any urinary symptoms. Medications MEDSacyclovir (ZOVIRAX) tab/cap, 200 mg, Oral, BID allopurinoL, 100 mg, Oral, QDAY amitriptyline/gabapentin/emu oil(#), , Topical, Q8H amLODIPine, 10 mg, Oral, QDAY cyanocobalamin, 1,000 mcg, Oral, QDAY filgrastim-sndz, 300 mcg, Subcutaneous, Q24H* folic acid, 1 mg, Oral, QDAY heparin (porcine), 5,000 Units, Subcutaneous, Q8H* mineral oil/hydrophilic petrolatum, , Topical, QDAY polyethylene glycol 3350, 2 packet, Oral, QDAY senna, 2 tablet, Oral, QHS sodium bicarbonate, 650 mg, Oral, BID vitamins, multi B, C, Zn & folate (Renal), 1 tablet, Oral, QDAY IV MEDS Prn calcium carbonate Q6H PRN 1,000 mg at 09/19/19 2327, guaiFENesin Q4H PRN 1 00 mg at 10/10/19 0130, melatonin QHS PRN 5 mg at 10/10/19 0130, simethicone Q6H PRN 80 mg at 10/04/19 2126, sodium chloride 0.9% (NS) IP Dialysis PRN, sodium c hloride 0.9% (NS) IP Dialysis PRN, sodium chloride 0.9% irrigation bottle PRN, v itamin A & D PRN Physical Exam Vital Signs: Last Filed In 24 Hours Vital Signs: 24 Hour Range BP: 121/74 (10/09 1644) Temp: 37 C (98.6 F) (10/09 1644) Pulse: 94 (10/09 1644) Respirations: 20 PER MINUTE (10/09 1644) SpO2: 98 % (10/09 1644) SpO2 Pulse: 94 (10/09 1644) BP: (97-142)/(53-80) Temp: [36.4 C (97.6 F)-37 C (98.6 F)] Pulse: [56-100] Respirations: [17 PER MINUTE-24 PER MINUTE] SpO2: [93 %-100 %] Intensity Pain Scale (Self Report): 0 (10/10/191644) Vitals: 10/10/19 0240 10/10/19 1323 10/10/19 1645 Weight: 75.6 kg (166 lb 9.6 oz) 71 kg (156 lb 8.4 oz) 70.5 kg (155 lb 6.8 oz) Constitutional: Appears well-developed and well-nourished. No distress. Pleasant . Head: Normocephalic and atraumatic. Mouth/Throat: No oropharyngeal exudate. Eyes: No scleral icterus or injection. Neck: No JVD present. No tracheal deviation present. Cardiovascular: Normal rate, regular rhythm, normal heart sounds and intact dist al pulses. No murmur. Pulmonary/Chest: Effort normal. No wheezes and no rales. Abdominal: Soft. Bowel sounds are normal. No distension. There is no tenderness or rebound. Musculoskeletal: No edema. No cyanosis or clubbing. Neurological: Alert. Conversant. Skin: Skin is warm and dry. No rash noted. Labs Recent Labs 10/07/19 1900 10/08/19 0315 10/08/19 1633 10/09/19 0300 10/09/19 1630 10/10/19 0220 NA 139 137 139 140 139 140 K 3.7 4.1 4.1 4.0 4.3 4.3 CL 100 98 100 100 100 100 CO2 30 27 25 26 25 23 GAP 9 12 14* 14* 14* 17* BUN 18 30* 49* 62* 76* 88* CR 1.45* 2.08* 2.86* 3.31* 3.98* 4.25* GLU 92 137* 153* 151* 151* 170* CA 8.0* 8.0* 7.8* 8.0* 7.8* 7.9* ALBUMIN -- 2.8* -- 2.9* -- 2.9* MG -- 2.0 -- 2.0 -- 2.0 PO4 2.9 4.3 5.6* 5.1* 6.5* 6.8* Recent Labs 10/08/19 0315 10/09/19 0300 10/10/19 0220 WBC 11.2* 30.7* 21.4* HGB 6.7* 8.1* 8.3* HCT 19.9* 23.8* 23.7* PLTCT 213 219 172 INR 1.1 1.1 1.1 AST 33 43* 49* ALT 24 37 49 ALKPHOS 129* 120* 180* Estimated Creatinine Clearance: 12 mL/min (A) (based on SCr of 4.25 mg/dL (H)). Vitals: 10/10/19 0240 10/10/19 1323 10/10/19 1645 Weight: 75.6 kg (166 lb 9.6 oz) 71 kg (156 lb 8.4 oz) 70.5 kg (155 lb 6.8 oz) No results for input(s): PHART, PO2ART in the last 72 hours. Invalid input(s): PC02A Levar Coleman DO Pager [phone] * Tiffany Jernigan, ROLAND - 10/10/2019 4:46 PM CDT Patient off unit from [phone] * Paz Epstein PTA - 10/10/2019 1:22 PM CDT PHYSICAL THERAPY NOTE Name: Mary Tim : 1950 Age: [age] y.o. Admission Date: 09/17/2019 LOS: 22 days Patient was unavailable for physical therapy/pt off the unit to IR for LP and IT chemo. Physical therapy will continue to follow and provide intervention as in dicated. Therapist: Paz Epstein, Physical therapist tv production assistant Date: 10/10/2019 * Maximilian Ba MD - 10/10/2019 6:54 AM CDT General Progress Note Name: Mary Tim Today's Date: 10/10/2019 Admission Date: 09/17/2019 LOS: 22 days Assessment/Plan: Principal Problem: Acute renal failure (ARF) (HCC) Active Problems: Hyperkalemia High anion gap metabolic acidosis UTI (urinary tract infection) Physical debility ILD (interstitial lung disease) (HCC) Anemia Abnormal CT of the chest Abnormal abdominal CT scan Elevated CA 19-9 level Diffuse large B-cell lymphoma of lymph nodes of multiple regions (HCC) Mary Tim is a 69-year-old F with PMH of HTN and cervical (C3-C7) and lumb ar (L3-L5) spinal fusions who presented to [facility] 09/16 for progressively wor sening weakness and fatigue over the past 2 months and was found to have acute r enal failure and hyperkalemia and anion gap metabolic acidosis. Work-up this adm ission, including diagnostic LP and PET CT consistent with DLBCL. #DLBCL, Stage IV, GCB sub-type CD20+ - FISH for Myc, Ki-67 pending - PET CT 10/02: shows kidney, ureters, gallbladder, uterus, gastric, osseus, panc reatic pulmonary, hepatic, and adrenal involvement of disease - Diagnostic LP 10/03, negative for malignant cells. High IC DES[employer]-IPI - s/p BMBx 10/03: normocellular marrow, negative for lymphoma - ECOG status 1 - Renal biopsy from 09/28 shows pathology that is consistent with DLBCL - R-CHOP C1D6 PLAN > IT chemo with IR 10/09 > Patient from [place], [place] but is willing to travel to [place] for treatment. Dr. Zhong in [place] may be able to handle OP treatment. > f/u GI outpt for possible panc/stomach involvement > Will monitor TLS labs BID - s/p rasburicase 3mg 10/08. Uric acid this AM 5.0 > PPx with acyclovir 200 mg BID > Continue allopurinol 100 mg daily #Oliguric ROSHAN, likely 2/2 DLBCL Infiltration #Anion-Gap Metabolic Acidosis -pathology of renal bx shows DLBCL; see above - It is unknown if kidneys will regain sufficient function to not need HD. Unabl e to determine ESRD status for another 3 months. Additionally, will depend on DL BCL response however renal is cautiously optimistic renal recovery will occur PLAN > Continue sodium bicarb tablets > HD TTS > Patient currently with right tunneled IJ for access, which is sufficient for long-term HD access > BMP BID #Sarcoidosis - likely stage 2 - ILD Labs largely negative except for elevated Aldolase at 9.2. - PFTs restrictive pattern. - Bronchoscopy negative pathology, cultures - Lymph node biopsy results showing granuloma formationand in conjunction with CT findings isconcerning for sarcoidosis. PLAN > Pulm consulted, will f/u in clinic after discharge for further steroid management #Thrush - Fluconazole 200mg following HD for 4 doses at d/c #UTI, resolved -e. coli and enterobacter. completedrocephin for 7 days09/25 #Constipation > Miralax, senokot PRN > Hold dulcolax #HTN > Hold CECE, HCTZ > Blood pressure mildly elevated.On [id number] #Chronic Back Pain > will hold [place] for now, given chemo regimen > emu oil prn #Normocytic Anemia - Status post 1 PRBC09/24.hemoglobin around 10. - Iron studies showed mixed picture of iron deficiency and anemia of chronic d isease - B12 and folate low, continue - LDH elevated. Haptoglobin normal. Peripheral smear showed normocytic anemia. Absolute lymphocytopenia. Mild monocytosis. PLAN >Transfuse if hemoglobin less than 7 #Transaminitis, mild - resolved #Physical debility #Impaired Dentition > PT OT eval. 10/03 recommending inpatient.Patient agreeable for rehab. SW To assist with placement > Will need to work on finding patient's top dentures, which were lost during admission following a procedure FEN: hold IVFs for now, regular diet, replace lytes PRN VTE PPx: Heparin subq Code: Full Disp: d/c tomorrow 10/10 Patient seen and discussed with Dr. Cipriano Ba MD Internal Medicine, PGY-2 Available on Voalte Subjective No acute events overnight. Patient is doing well this morning. She is happy th at [facility] will replace her dentures. No other complaints or concerns. Medications Scheduled Meds:acyclovir (ZOVIRAX) capsule 200 mg, 200 mg, Oral, BID allopurinoL (ZYLOPRIM) tablet 100 mg, 100 mg, Oral, QDAY amitriptyline/gabapentin/emu oil(#) 4/4/10 % topical cream, , Topical, Q8H amLODIPine (NORVASC) tablet 10 mg, 10 mg, Oral, QDAY cyanocobalamin (VITAMIN B-12) tablet 1,000 mcg, 1,000 mcg, Oral, QDAY cytarabine PF (CYTOSAR) injection (IT) 100 mg, 100 mg, Intrathecal, ONCE filgrastim-sndz (ZARXIO) inj syringe 300 mcg, 300 mcg, Subcutaneous, Q24H* folic acid (FOLVITE) tablet 1 mg, 1 mg, Oral, QDAY heparin (porcine) PF syringe 5,000 Units, 5,000 Units, Subcutaneous, Q8H* LORazepam (ATIVAN) tablet 0.5 mg, 0.5 mg, Oral, ONCE mineral oil/hydrophilic petrolatum (AQUAPHOR, DERMAPHOR) topical ointment, , Top ical, QDAY polyethylene glycol 3350 (MIRALAX) packet 34 g, 2 packet, Oral, QDAY senna (SENOKOT) tablet 2 tablet, 2 tablet, Oral, QHS sodium bicarbonate tablet 650 mg, 650 mg, Oral, BID vitamins, multi B, C, Zn & folate (Renal) (NEPHPLEX RX) tablet 1 tablet, 1 tablet, Oral, QDAY Continuous Infusions: PRN and Respiratory Meds:calcium carbonate Q6H PRN, guaiFENesin Q4H PRN, melaton in QHS PRN, simethicone Q6H PRN, sodium chloride 0.9% irrigation bottle PRN, vit paz A & D PRN Review of Systems: Positive for cough, abdominal pain Negative for nausea, vomiting, diarrhea, constipation, and back pain Objective: Vital Signs: Last Filed Vital Signs: 24 Fernanda r Range BP: 142/54 (10/10 239) Temp: 36.5 C (97.7 F) (10/09 024) Pulse: 100 (10/09 024) Respirations: 20 PER MINUTE (10/10 239) SpO2: 95 % (10/09 030) BP: (117-142)/(54-68) Temp: [36.3 C (97.4 F)-36.7 C (98.1 F)] Pulse: [94-100] Respirations: [18 PER MINUTE-20 PER MINUTE] SpO2: [93 %-100 %] Vitals: 10/08/19 0315 10/09/19 0305 10/10/19 0240 Weight: 76.6 kg (168 lb 14.4 oz) 74.6 kg (164 lb 8 oz) 75.6 kg (166 lb 9.6 oz) Intake/Output Summary: (Last 24 hours) Intake/Output Summary (Last 24 hours) at 10/10/2019 0655 Last data filed at 10/10/2019 0624 Gross per 24 hour Intake 500 ml Output 1450 ml Net -950 ml Stool Occurrence: 1(medium formed) Physical Exam GEN: No distress. Sitting comfortably in chair Head: Normocephalic, atraumatic. NC in place Eyes: EOMI CV: Normal rate and rhythm, no murmurs Pulmonary: breathing not labored. Mild diffuse crackles heard bilaterally Abdomen: Soft, non-distended. Bowel sounds present. Mildly tender to palpation L LQ Extremities: no brigette Skin: No rash on exposed skin. HD cath and port without surrounding tenderness Neuro: Normal strength in b/l UEs and LEs psych: Mildly anxious and talkative Lab Review 24-hour labs: Results for orders placed or performed during the hospital encounter of 09/17/19 (from the past 24 hour(s)) PHOSPHORUS Collection Time: 10/09/19 4:30 PM Result Value Ref Range Phosphorus 6.5 (H) 2.0 - 4.5 MG/DL URIC ACID Collection Time: 10/09/19 4:30 PM Result Value Ref Range Uric Acid 8.0 (H) 2.0 - 7.0 MG/DL BASIC METABOLIC PANEL Collection Time: 10/09/19 4:30 PM Result Value Ref Range Sodium 139 137 - 147 MMOL/L Potassium 4.3 3.5 - 5.1 MMOL/L Chloride 100 98 - 110 MMOL/L CO2 25 21 - 30 MMOL/L Anion Gap 14 (H) 3 - 12 Glucose 151 (H) 70 - 100 MG/DL Blood Urea Nitrogen 76 (H) 7 - 25 MG/DL Creatinine 3.98 (H) 0.4 - 1.00 MG/DL Calcium 7.8 (L) 8.5 - 10.6 MG/DL eGFR Non 11 (L) >60 mL/min eGFR 14 (L) >60 mL/min URIC ACID, RASBURICASE Collection Time: 10/09/19 10:00 PM Result Value Ref Range Uric Acid, Rasburicase 7.6 (H) 2.0 - 7.0 mg/dL PROTIME INR (PT) Collection Time: 10/10/19 2:20 AM Result Value Ref Range INR 1.1 0.8 - 1.2 MAGNESIUM Collection Time: 10/10/19 2:20 AM Result Value Ref Range Magnesium 2.0 1.6 - 2.6 mg/dL CBC AND DIFF Collection Time: 10/10/19 2:20 AM Result Value Ref Range White Blood Cells 21.4 (H) 4.5 - 11.0 K/UL RBC 2.68 (L) 4.0 - 5.0 M/UL Hemoglobin 8.3 (L) 12.0 - 15.0 GM/DL Hematocrit 23.7 (L) 36 - 45 % MCV 88.6 80 - 100 FL MCH 31.0 26 - 34 PG MCHC 35.0 32.0 - 36.0 G/DL RDW 13.4 11 - 15 % Platelet Count 172 150 - 400 K/UL MPV 6.9 (L) 7 - 11 FL Neutrophils 97 (H) 41 - 77 % Lymphocytes 1 (L) 24 - 44 % Monocytes 1 (L) 4 - 12 % Eosinophils 0 0 - 5 % Basophils 1 0 - 2 % Absolute Neutrophil Count 21.07 (H) 1.8 - 7.0 K/UL Absolute Lymph Count 0.17 (L) 1.0 - 4.8 K/UL Absolute Monocyte Count 0.10 0 - 0.80 K/UL Absolute Eosinophil Count 0.00 0 - 0.45 K/UL Absolute Basophil Count 0.11 0 - 0.20 K/UL PHOSPHORUS Collection Time: 10/10/19 2:20 AM Result Value Ref Range Phosphorus 6.8 (H) 2.0 - 4.5 MG/DL URIC ACID Collection Time: 10/10/19 2:20 AM Result Value Ref Range Uric Acid 5.9 2.0 - 7.0 MG/DL COMPREHENSIVE METABOLIC PANEL Collection Time: 10/10/19 2:20 AM Result Value Ref Range Sodium 140 137 - 147 MMOL/L Potassium 4.3 3.5 - 5.1 MMOL/L Chloride 100 98 - 110 MMOL/L Glucose 170 (H) 70 - 100 MG/DL Blood Urea Nitrogen 88 (H) 7 - 25 MG/DL Creatinine 4.25 (H) 0.4 - 1.00 MG/DL Calcium 7.9 (L) 8.5 - 10.6 MG/DL Total Protein 5.4 (L) 6.0 - 8.0 G/DL Total Bilirubin 0.4 0.3 - 1.2 MG/DL Albumin 2.9 (L) 3.5 - 5.0 G/DL Alk Phosphatase 180 (H) 25 - 110 U/L AST (SGOT) 49 (H) 7 - 40 U/L CO2 23 21 - 30 MMOL/L ALT (SGPT) 49 7 - 56 U/L Anion Gap 17 (H) 3 - 12 eGFR Non 10 (L) >60 mL/min eGFR 13 (L) >60 mL/min LDH-LACTATE DEHYDROGENASE Collection Time: 10/10/19 2:20 AM Result Value Ref Range Lactate Dehydrogenase 431 (H) 100 - 210 U/L Point of Care Testing (Last 24 hours) Glucose: (!) 170 (10/10/19 0220) Radiology and other Diagnostics Review: Pertinent radiology reviewed. Maximilian Ba MD Pager [phone] Associated attestation - Karen Cota MD - 10/11/2019 8:45 AM CDT ATTESTATION I personally performed the ruiz portions of the E/M visit, discussed case with re sident and concur with resident documentation of history, physical exam, assessm ent, and treatment plan unless otherwise noted. Kareniona Cota [phone] * Odilia Caldwell RN - 10/10/2019 5:45 AM CDT Shift: 7p - 7a NEWS Score: 2,3,3 (O2) Pain: Denies pain Nutrition: Regular diet - good appetite, ate 100% dinner this shift GI/: Voids clear yellow urine, last BM 10/08 Activity: Up with stand by assist due to weakness, fatigue Family: Nephew present early in shift Last Shower: 10/08 New Events or Follow-up: Patient still concerned about upper dentures. Uric acid level this am 5.9. Patient NPO for LP today per Dr. Blanchard. * Levar Coleman DO - 10/09/2019 4:44 PM CDT Renal Progress Note Mary Tim Admission Date: 09/17/2019 Assessment and Plan Principal Problem: Acute renal failure (ARF) (HCC) Active Problems: Hyperkalemia High anion gap metabolic acidosis UTI (urinary tract infection) Physical debility ILD (interstitial lung disease) (HCC) Anemia Abnormal CT of the chest Abnormal abdominal CT scan Elevated CA 19-9 level Diffuse large B-cell lymphoma of lymph nodes of multiple regions (HCC) Mary Tim is a 69 y.o. female ROSHAN - Initially though to be prerenal azotemia and had been on HCTZ and CECE. She had some hydronephrosis on US that was not felt signficant. - Creatinine improved from a peak of 7.32 to a ashley of 5.8 before now worsening again. - She has 0.9 grams protineuria, had 2+ blood on UA 09/17 and 10-20 WBC. UC from grew E coli and Enterobacter. Urine sediment exam had been consistent with UT I. - She has negative MPO/PR3 and hepatitis testing. - She had a CT which showed enlarged kidneys with infiltrative process - Kidney function has not improved - biopsy has shown infiltratation of her kidneys by DLBCL and she is to start ch emotherpathy 10/04 ILD Anemia -had required a transfusion 09/24 Metabolic acidosis - improved Hyperkalemia - improved Recommendations: - Evaluated on dialysis and stable - Avoid nephrotoxins as able - Will evaluate for dialysis needs daily. - Please provide nutritional supplements as without her dentures she has been un able to chew. - Her creatinine trend has been overall declining. She is making normal UOP. I h eld on dialysis today in order to trend her creatinine and see if she is improvi ng. Likely will need dialysis tomorrow and will plan for this but may cancel if she is starting to clear more. Levar Coleman, DO Pager [phone] Subjective HPI: Mary Tim is a 69 y.o. female was feeling good today. She had been an xious last night after hearing her sisters were rearranging her home. She denied dyspnea and edema. She is on oxygen currently. She is making normal amount of u rine. Medications MEDSacyclovir (ZOVIRAX) tab/cap, 200 mg, Oral, BID allopurinoL, 100 mg, Oral, QDAY amitriptyline/gabapentin/emu oil(#), , Topical, Q8H amLODIPine, 10 mg, Oral, QDAY cyanocobalamin, 1,000 mcg, Oral, QDAY [START ON 10/10/2019] cytarabine PF, 100 mg, Intrathecal, ONCE filgrastim-sndz, 300 mcg, Subcutaneous, Q24H* folic acid, 1 mg, Oral, QDAY heparin (porcine), 5,000 Units, Subcutaneous, Q8H* [START ON 10/10/2019] LORazepam, 0.5 mg, Oral, ONCE mineral oil/hydrophilic petrolatum, , Topical, QDAY polyethylene glycol 3350, 2 packet, Oral, QDAY senna, 2 tablet, Oral, QHS sodium bicarbonate, 650 mg, Oral, BID vitamins, multi B, C, Zn & folate (Renal), 1 tablet, Oral, QDAY IV MEDS Prn calcium carbonate Q6H PRN 1,000 mg at 09/19/192326, guaiFENesin Q4H PRN 1 00 mg at 10/08/192023, melatonin QHS PRN 5 mg at 10/08/192023, simethicone Q6H PRN 80 mg at 10/04/192125, sodium chloride 0.9% irrigation bottle PRN, vitamin A & D PRN Physical Exam Vital Signs: Last Filed In 24 Hours Vital Signs: 24 Hour Range BP: 142/68 (10/08 1525) Temp: 36.3 C (97.4 F) (10/08 1525) Pulse: 96 (10/08 1525) Respirations: 18 PER MINUTE (10/08 1525) SpO2: 95 % (10/08 152) BP: (126-142)/(50-68) Temp: [36.3 C (97.4 F)-36.7 C (98 F)] Pulse: [91-102] Respirations: [18 PER MINUTE-22 PER MINUTE] SpO2: [93 %-98 %] Vitals: 10/07/19 1807 10/08/19 0315 10/09/19 0305 Weight: 78.2 kg (172 lb 6.4 oz) 76.6 kg (168 lb 14.4 oz) 74.6 kg (164 lb 8 oz) Constitutional: Appears well-developed and well-nourished. No distress. Pleasant . Head: Normocephalic and atraumatic. Mouth/Throat: No oropharyngeal exudate. Eyes: No scleral icterus or injection. Neck: No JVD present. No tracheal deviation present. Cardiovascular: Normal rate, regular rhythm, normal heart sounds and intact dist al pulses. No murmur. Pulmonary/Chest: Effort normal. No wheezes and no rales. Abdominal: Soft. Bowel sounds are normal. No distension. There is no tenderness or rebound. Musculoskeletal: No edema. No cyanosis or clubbing. Neurological: Alert. Conversant. Skin: Skin is warm and dry. No rash noted. Labs Recent Labs 10/07/19 0225 10/07/19 1900 10/08/19 0315 10/08/19 1633 10/09/19 0300 NA 137 139 137 139 140 K 4.4 3.7 4.1 4.1 4.0 CL 100 100 98 100 100 CO2 23 30 27 25 26 GAP 14* 9 12 14* 14* BUN 59* 18 30* 49* 62* CR 3.78* 1.45* 2.08* 2.86* 3.31* GLU 175* 92 137* 153* 151* CA 7.9* 8.0* 8.0* 7.8* 8.0* ALBUMIN 2.8* -- 2.8* -- 2.9* MG 2.0 -- 2.0 -- 2.0 PO4 5.9* 2.9 4.3 5.6* 5.1* Recent Labs 10/07/19 0225 10/08/19 0315 10/09/19 0300 WBC 13.6* 11.2* 30.7* HGB 7.2* 6.7* 8.1* HCT 21.3* 19.9* 23.8* PLTCT 237 213 219 INR 1.1 1.1 1.1 AST 60* 33 43* ALT 28 24 37 ALKPHOS 149* 129* 120* Estimated Creatinine Clearance: 15.9 mL/min (A) (based on SCr of 3.31 mg/dL (H)) . Vitals: 10/07/19 1807 10/08/19 0315 10/09/19 0305 Weight: 78.2 kg (172 lb 6.4 oz) 76.6 kg (168 lb 14.4 oz) 74.6 kg (164 lb 8 oz) No results for input(s): PHART, PO2ART in the last 72 hours. Invalid input(s): PC02A Levar Coleman DO Pager [phone] * Luisito Baeza MBBS - 10/09/2019 3:00 PM CDT Discussed with primary team. Patient was initially seen by the biliary service f or endoscopic ultrasound to address diffuse atrophy of the pancreas. Initially plan was to perform EUS prior to discharge once stable(as previously patient was found to have hyperkalemia secondary to renal failure ) or as outpatient. Linda ent was diagnosed with diffuse large B-cell lymphoma on renal biopsy during this hospitalization. Offered inpatient EUS on 10/10/2019 vs outpatient. Patient ave eduled to undergo lumbar puncture with IR and hemodialysis on 10/10/2019 and was requested by primary team for outpatient EUS. Plan to schedule patient for an outpatient EUS in 1 to [address] Sapp who agrees. Luisito Baeza GI fellow Pager [phone] 10/09/2019 3:03 PM * Tess Becerra OT - 10/09/2019 9:16 AM CDT OCCUPATIONAL THERAPY PROGRESS NOTE Name: Mary Tim : 1950 Age: [age] y.o. Admission Date: 09/17/2019 LOS: 21 days Mobility Patient Turn/Position: Chair Progressive Mobility Level: Walk in hallway Distance Walked (feet): 100 ft Level of Assistance: Stand by assistance Assistive Device: Walker Time Tolerated: 11-30 minutes Activity Limited By: Weakness;Fatigue;Shortness of air Subjective Pertinent Dx per Physician: PMH: back pain, cervical fusion, lumbar fusion, & chronic pain- admit with worsening weakness/fatigue & found to have acute renal failure with hyperkalemia & anion gap metabolic acidosis Precautions: Falls;O2 Requirement(2L 02 via NC) Pain / Complaints: Patient has no c/o pain;Patient agrees to participate in ther apy Objective Psychosocial Status: Willing and Cooperative to Participate Persons Present: Physical Therapist Home Living Type of Home: Mobile Home Home Layout: One Level;Stairs to Enter w/ Rails(3-5 stairs w/ rail to enter) Bathroom Shower / Tub: Tub/Shower Unit Bathroom Toilet: Standard Bathroom Equipment: Grab Bars in Shower;Shower Chair Prior Function Level Of [place]: Independent with ADLs and functional transfers;Independen t with homemaking w/ ambulation Lives With: Alone Receives Help From: None Needed Other Function Comments: Denies recent h/o falls but does report falling ~6 year s ago in her bathtub which ultimately resulted in her back surgeries. Lives devora e with no assist available. Pt reports that she plans to return home with her 88 y.o. sister and [id number]. Indicates that they both use walkers and take c are of eachother. Pt also reports that her sister has a paid caregiver to assist with IADLs whom will likely provide her with transportation home at discharge. ADL's Where Assessed: Chair;Standing at Sink(in hallway) Grooming Assist: Stand By Assist Grooming Deficits: Setup;Standing With Assistive Device;Teeth Care Comment: Participated in oral hygiene while standing at the sink with SBA at RW level x 2-3 min. Required seated rest break at EOB where she also washed her fac e with SBA for set up. ADL Mobility Transfer Type: Sit to/from stand Transfer: Assistance Level: To/from;Bed;Bedside chair(CGA) Transfer: Assistive Device: Roller walker Transfer: Type of Assistance: For balance;For safety considerations;Requires ext ra time(Verbal cues for hand placement during decent. ) End of Activity Status: Up in chair;Instructed patient to use call light(Alarm a ctivated and all needs within reach.) Gait Distance: 100 feet Gait: Assistance Level: (CGA) Gait: Assistive Device: Roller walker Activity Tolerance Endurance: 2/5 Tolerates 10-20 Minutes Exercise w/Multiple Rests Comment: Pt with 02 desaturation to 89% after completing hallway ambulation, req uiring 3-4 min seated rest break with pursed lip breathing to recover into mid 9 0s. Education Persons Educated: Patient Barriers To Learning: None Noted Interventions: Repetition of Instructions Teaching Methods: Verbal Instruction;Demonstration Patient Response: Verbalized and Demo Understanding Topics: Role of OT, Goals for Therapy;Energy Conservation Goal Formulation: With Patient Assessment Assessment: Decreased ADL Status;Decreased Endurance;Decreased Self-Care Trans;D ecreased High-Level ADLs Prognosis: Good Goal Formulation: Patient Comments: Patient making appropriate gains towards OT goals. Patient would benef it from continued OT intervention in acute care setting to increase OOB activiti es. AM-PAC 6 Clicks Daily Activity Inpatient Putting on and taking off regular lower body clothes?: A Little Bathing (Including washing, rinsing, drying): A Little Toileting, which includes using toilet, bedpan, or urinal: A Little Putting on and taking off regular upper body clothing: None Taking care of personal grooming such as brushing teeth: None Eating meals?: None Daily Activity Raw Score: 21 Standardized (t-scale) score: 44.27 CMS 0-100% Score: 32.79 CMS G Code Modifier: CJ Plan Progress: Progressing Toward Goals OT Frequency: 3-5x/week OT Plan for Next Visit: progress mobility, standing endurance ADLs ADL Goals Patient Will Perform Grooming: Standing at Sink;w/ Mod Independent Patient Will Perform LE Dressing: w/ Modified Independent Patient Will Perform Toileting: w/ Modified Independent Functional Transfer Goals Pt Will Perform All Functional Transfers: Modified Independent OT Discharge Recommendations Recommendation: Inpatient setting Patient Currently Requires Equipment: Walker with wheels Therapist: MARBELLA Epps R/L [id number] Date: 10/09/2019 * Paz Epstein PTA - 10/09/2019 9:12 AM CDT PHYSICAL THERAPY PROGRESS NOTE Name: Mary Tim : 1950 Age: [age] y.o. Admission Date: 09/17/2019 LOS: 21 days Mobility Patient Turn/Position: Chair Progressive Mobility Level: Walk in hallway Distance Walked (feet): 100 ft Level of Assistance: Stand by assistance Assistive Device: Walker Time Tolerated: 11-30 minutes Activity Limited By: Weakness;Fatigue;Shortness of air Subjective Significant hospital events: PMH: back pain, cervical fusion, lumbar fusion, chr onic pain, HTN. Reason for admission: Progressively worsening weakness and fatig ue. Patient was found to have acute renal failure with hyperkalemia and anion ga p metabolic acidosis.renal biopsy 09/29. HD cathether placement 09/[address] anned for 09/30 and 10/01 for anticipation of improved renal function. Mental / Cognitive Status: Alert;Oriented;Cooperative Persons Present: Physical Therapist Pain: Patient has no complaint of pain Pain Interventions: Patient agrees to participate in therapy Comments: Pt was sitting in the chair. She stated that she had a "problem" this morning and needed to have her oxygen increased. Comments: 2 liters oxygen Ambulation Assist: Independent Mobility in Community without Device Patient Owned Equipment: Single Point Cane;Roller Walker Home Situation: Lives Alone Type of Home: Mobile Home Entry Stairs: 3-5 Stairs;Rail on 1 Side In-Home Stairs: No Stairs PT/OT co-treat due to time constraints. Bed Mobility/Transfer Transfer Type: Sit to/from Stand Transfer: Assistance Level: To/From;Bed;Bed Side Chair(hand on gait belt as a pr ecaution) Transfer: Assistive Device: Roller Walker Transfers: Type Of Assistance: Verbal Cues;For Safety Considerations(cues for te chnique) End Of Activity Status: Up in Chair;Instructed Patient to Request Assist with Mo bility;Instructed Patient to Use Call Light Gait Gait Distance: 100 feet Gait: Assistance Level: Management of Lines;Safety Considerations;Minimal Assist (especially with fatigue) Gait: Assistive Device: Roller Walker Gait: Descriptors: Pace: Slow;Forward trunk flexion;No balance loss Activity Limited By: SOA;Complaint of Fatigue Comments: after walking, her oxygen saturation was 89% on 2 liters. After sever al minutes of rest, she improved to 95%. Activity/Exercise Comments: See OT note for ADLs Assessment/Progress Comments: Pt fatigues quickly and becomes SOA; her endurance significantly limit s mobility. Pt has adequate strength in her LE for transfers and ambulation. A t present, pt would benefit from continued therapy in an inpatient setting prior to returning home alone. AM-PAC 6 Clicks Basic Mobility Inpatient Turning from your back to your side while in a flat bed without using bed rails: None Moving from lying on your back to sitting on the side of a flatbed without using bedrails : A Little Moving to and from a bed to a chair (including a wheelchair): A Little Standing up from a chair using your arms (e.g. wheelchair, or bedside chair): A Little To walk in hospital room: A Little Climbing 3-5 steps with a railing: A Little Raw Score: 19 Standardized (T-scale) Score: 42.48 Basic Mobility CMS 0-100%: 36.99 CMS G Code Modifier for Basic Mobility: CJ Goals Goal Formulation: With Patient Time For Goal Achievement: 5 days, To, 7 days Patient Will Transfer Bed/Chair: Independently Patient Will Ambulate: Greater than 200 Feet, w/ No Device, Independently Patient Will Go Up / Down Stairs: 3-5 Stairs, Independently Plan Treatment Interventions: Mobility Training Plan Frequency: 5 Days per Week PT Plan for Next Visit: *stairs *sit <> stand repetition to work technique PT Discharge Recommendations Recommendation: Inpatient setting Therapist: Paz Epstein, Physical therapist tv production assistant Date: 10/09/2019 * Julian Malloy MD - 10/09/2019 7:51 AM CDT General Progress Note Name: Mary Tim Today's Date: 10/09/2019 Admission Date: 09/17/2019 LOS: 21 days Assessment/Plan: Principal Problem: Acute renal failure (ARF) (HCC) Active Problems: Hyperkalemia High anion gap metabolic acidosis UTI (urinary tract infection) Physical debility ILD (interstitial lung disease) (HCC) Anemia Abnormal CT of the chest Abnormal abdominal CT scan Elevated CA 19-9 level Diffuse large B-cell lymphoma of lymph nodes of multiple regions (HCC) Mary Tim is a 69-year-old F with PMH of HTN and cervical (C3-C7) and lumb ar (L3-L5) spinal fusions who presented to [facility] 09/16 for progressively wor sening weakness and fatigue over the past 2 months and was found to have acute r enal failure and hyperkalemia and anion gap metabolic acidosis. Work-up this adm ission, including diagnostic LP and PET CT consistent with DLBCL. #DLBCL, Stage IV, GCB sub-type CD20+ - FISH for Myc, Ki-67 pending - PET CT 10/02: shows kidney, ureters, gallbladder, uterus, gastric, osseus, panc reatic pulmonary, hepatic, and adrenal involvement of disease - Diagnostic LP 10/03, negative for malignant cells. High IC DESIGNER CUSTOM-IPI - s/p BMBx 10/03: normocellular marrow, negative for lymphoma - ECOG status 1 - Renal biopsy from 09/28 shows pathology that is consistent with DLBCL PLAN > R-CHOP C1D5 > Cytoxin, 50% reduced > Rituxan day 2 with plans for G-CSF > Will plan for 2 IT chemo tx's per cycle for now > Will plan for next IT chemo with IR 10/09 > Patient from [place], [place] but is willing to travel to [place] for treatment. Dr. Zhong in [place] may be able to handle OP treatment. Will plan at this point for Zarxio daily > Continue holding IVFs > Uric acid 7.5 10/08, will recheck BMP this evening to assess for need for rasburicase > GI consulted for EUS due to liver, pancreas, and stomach involvement of lymphoma on CT. Will likely complete as outpatient > Will monitor TLS labs BID - For uric acid >12, provide 6 mg rasburicase, and >8, provide 3 mg rasburicase > PPx with acyclovir 200 mg BID > Continue allopurinol 100 mg daily #Oliguric ROSHAN, likely 2/2 DLBCL Infiltration #Anion-Gap Metabolic Acidosis - likely ATN, Nephrology noted muddy brown casts and pyuria on microscopy - 7 at presentation, small improvement with IVF - Renal US unremarkable - UPr:Cr 0.9, - Renal consulted, discussed with . Plan to replace Zambrano given diste nded urinary bladder and large kidneys and renal pelvis. -pathology of renal bx shows DLBCL; see above - HD line placed - It is unknown if kidneys will regain sufficient function to not need HD. Unabl e to determine ESRD status for another 3 months. Additionally, will depend on DL BCL response. PLAN > Continue sodium bicarb tablets > Renal following, appreciate recs. Will assess for IP dialysis as needed > hold IVFs for now > Inpatient dialysis schedule TTS. Will need dialysis as an outpatient. Patient currently with right tunneled IJ for access, which is sufficient for long-term HD access > BMP BID #Sarcoidosis - likely stage 2 - ILD Labs largely negative except for elevated Aldolase at 9.2. - PFTs consistent with restrictive pattern. - Bronchoscopy biopsy results showed unremarkable respiratory mucosa. Negative f or granuloma or malignancy. - Lymph node biopsy results showing granuloma formationand in conjunction with CT findings isconcerning for sarcoidosis. PLAN > Pulm consulted, will f/u in clinic after discharge for further steroid management > Continue incentive spirometry as ordered and supplemental O2 as needed. Walking pulse ox ordered prior to discharge > Taper O2 as tolerated while inpatient. Was not on oxygen at home #UTI, resolved -UA shows blood and pyuria - UCx with e. coli and enterobacter.Sensitive to Rocephin - completedrocephin for 7 days09/25 #Constipation > Miralax, senokot PRN > Hold dulcolax #HTN > Hold CECE, HCTZ > Blood pressure mildly elevated.On [id number] > d/c PRN hydralazine and labetalol. May consider PRN PO clonidine if hypertensive #Chronic Back Pain > will hold [place] for now, given chemo regimen > emu oil prn #Normocytic Anemia - Status post 1 PRBC09/24.hemoglobin around 10. - Iron studies showed mixed picture of iron deficiency and anemia of chronic d isease - B12 and folate low, continue - LDH elevated. Haptoglobin normal. Peripheral smear showed normocytic anemia. Absolute lymphocytopenia. Mild monocytosis. PLAN >Transfuse if hemoglobin less than 7 #Transaminitis, mild - resolved - Elevated LFTs on admission 09/16 PLAN > Will trend LFTs #Physical debility #Impaired Dentition > PT OT eval. 10/03 recommending inpatient.Patient agreeable for rehab. SW To assist with placement > Will need to work on finding patient's top dentures, which were lost during admission following a procedure FEN: hold IVFs for now, regular diet, replace lytes PRN VTE PPx: HsQ Code: Full Disp: Continue admission to inpatient hematology Patient seen and discussed with Dr. Cipriano Malloy MD Internal Medicine, PGY-1 Available on Voalte Pager: [phone] Subjective Mary Tim is a 69 y.o. female. Overnight, was paged about patient having anxiety associated with her family going through her things in her house. Her fa mohinder is trying to prepare her house for when she returns home. This morning, patient was seen sitting comfortably in her chair. She reports swapnil t her anxiety is much better, but is still concerned about her family going thro ugh her things at home. She continues to have abdominal pain, which improves chapis ly. She denies further back pain. She still endorses a productive cough. She was experiencing shortness of breath associated with anxiety, but this has since im proved. She otherwise denies nausea, vomiting, and constipation. Medications Scheduled Meds:acyclovir (ZOVIRAX) capsule 200 mg, 200 mg, Oral, BID allopurinoL (ZYLOPRIM) tablet 100 mg, 100 mg, Oral, QDAY amitriptyline/gabapentin/emu oil(#) 4/4/10 % topical cream, , Topical, Q8H amLODIPine (NORVASC) tablet 10 mg, 10 mg, Oral, QDAY cyanocobalamin (VITAMIN B-12) tablet 1,000 mcg, 1,000 mcg, Oral, QDAY filgrastim-sndz (ZARXIO) inj syringe 300 mcg, 300 mcg, Subcutaneous, Q24H* folic acid (FOLVITE) tablet 1 mg, 1 mg, Oral, QDAY heparin (porcine) PF syringe 5,000 Units, 5,000 Units, Subcutaneous, Q8H* LORazepam (ATIVAN) tablet 0.5 mg, 0.5 mg, Oral, ONCE mineral oil/hydrophilic petrolatum (AQUAPHOR, DERMAPHOR) topical ointment, , Top ical, QDAY polyethylene glycol 3350 (MIRALAX) packet 34 g, 2 packet, Oral, QDAY predniSONE (DELTASONE) tablet 100 mg, 100 mg, Oral, Q24H* senna (SENOKOT) tablet 2 tablet, 2 tablet, Oral, QHS sodium bicarbonate tablet 650 mg, 650 mg, Oral, BID vitamins, multi B, C, Zn & folate (Renal) (NEPHPLEX RX) tablet 1 tablet, 1 tablet, Oral, QDAY Continuous Infusions: PRN and Respiratory Meds:calcium carbonate Q6H PRN, guaiFENesin Q4H PRN, melaton in QHS PRN, simethicone Q6H PRN, sodium chloride 0.9% irrigation bottle PRN, vit paz A & D PRN Review of Systems: Positive for cough, abdominal pain, shortness of breath, and anxiety Negative for nausea, vomiting, diarrhea, constipation, and back pain Objective: Vital Signs: Last Filed Vital Signs: 24 Fernanda r Range BP: 136/63 (10/08 621) Temp: 36.7 C (98 F) (10/08 621) Pulse: 102 (10/08 621) Respirations: 22 PER MINUTE (10/08 621) SpO2: 94 % (10/08 621) BP: (120-136)/(50-63) Temp: [36.2 C (97.1 F)-36.7 C (98 F)] Pulse: [86-102] Respirations: [18 PER MINUTE-22 PER MINUTE] SpO2: [93 %-100 %] Vitals: 10/07/19 1807 10/08/19 0315 10/09/19 0305 Weight: 78.2 kg (172 lb 6.4 oz) 76.6 kg (168 lb 14.4 oz) 74.6 kg (164 lb 8 oz) Intake/Output Summary: (Last 24 hours) Intake/Output Summary (Last 24 hours) at 10/09/2019 0751 Last data filed at 10/09/2019 0622 Gross per 24 hour Intake 540.22 ml Output 1000 ml Net -459.78 ml Stool Occurrence: 1(medium formed) Physical Exam GEN: No distress. Sitting comfortably in chair Head: Normocephalic, atraumatic. NC in place Eyes: EOMI CV: Normal rate and rhythm, no murmurs Pulmonary: breathing not labored. Mild diffuse crackles heard bilaterally Abdomen: Soft, non-distended. Bowel sounds present. Mildly tender to palpation i n mid and left quadrants Extremities: Trace edema in bilateral LEs Skin: No rash on exposed skin. HD cath and port without surrounding tenderness Neuro: Normal strength in b/l UEs and LEs psych: Mildly anxious and talkative Lab Review 24-hour labs: Results for orders placed or performed during the hospital encounter of 09/17/19 (from the past 24 hour(s)) PHOSPHORUS Collection Time: 10/08/19 4:33 PM Result Value Ref Range Phosphorus 5.6 (H) 2.0 - 4.5 MG/DL URIC ACID Collection Time: 10/08/19 4:33 PM Result Value Ref Range Uric Acid 6.7 2.0 - 7.0 MG/DL BASIC METABOLIC PANEL Collection Time: 10/08/19 4:33 PM Result Value Ref Range Sodium 139 137 - 147 MMOL/L Potassium 4.1 3.5 - 5.1 MMOL/L Chloride 100 98 - 110 MMOL/L CO2 25 21 - 30 MMOL/L Anion Gap 14 (H) 3 - 12 Glucose 153 (H) 70 - 100 MG/DL Blood Urea Nitrogen 49 (H) 7 - 25 MG/DL Creatinine 2.86 (H) 0.4 - 1.00 MG/DL Calcium 7.8 (L) 8.5 - 10.6 MG/DL eGFR Non 16 (L) >60 mL/min eGFR 20 (L) >60 mL/min PROTIME INR (PT) Collection Time: 10/09/19 3:00 AM Result Value Ref Range INR 1.1 0.8 - 1.2 MAGNESIUM Collection Time: 10/09/19 3:00 AM Result Value Ref Range Magnesium 2.0 1.6 - 2.6 mg/dL CBC AND DIFF Collection Time: 10/09/19 3:00 AM Result Value Ref Range White Blood Cells 30.7 (H) 4.5 - 11.0 K/UL RBC 2.71 (L) 4.0 - 5.0 M/UL Hemoglobin 8.1 (L) 12.0 - 15.0 GM/DL Hematocrit 23.8 (L) 36 - 45 % MCV 87.8 80 - 100 FL MCH 30.0 26 - 34 PG MCHC 34.2 32.0 - 36.0 G/DL RDW 13.6 11 - 15 % Platelet Count 219 150 - 400 K/UL MPV 6.9 (L) 7 - 11 FL Neutrophils 98 (H) 41 - 77 % Lymphocytes 1 (L) 24 - 44 % Monocytes 1 (L) 4 - 12 % Eosinophils 0 0 - 5 % Basophils 0 0 - 2 % Absolute Neutrophil Count 30.19 (H) 1.8 - 7.0 K/UL Absolute Lymph Count 0.25 (L) 1.0 - 4.8 K/UL Absolute Monocyte Count 0.18 0 - 0.80 K/UL Absolute Eosinophil Count 0.00 0 - 0.45 K/UL Absolute Basophil Count 0.06 0 - 0.20 K/UL PHOSPHORUS Collection Time: 10/09/19 3:00 AM Result Value Ref Range Phosphorus 5.1 (H) 2.0 - 4.5 MG/DL URIC ACID Collection Time: 10/09/19 3:00 AM Result Value Ref Range Uric Acid 7.5 (H) 2.0 - 7.0 MG/DL COMPREHENSIVE METABOLIC PANEL Collection Time: 10/09/19 3:00 AM Result Value Ref Range Sodium 140 137 - 147 MMOL/L Potassium 4.0 3.5 - 5.1 MMOL/L Chloride 100 98 - 110 MMOL/L Glucose 151 (H) 70 - 100 MG/DL Blood Urea Nitrogen 62 (H) 7 - 25 MG/DL Creatinine 3.31 (H) 0.4 - 1.00 MG/DL Calcium 8.0 (L) 8.5 - 10.6 MG/DL Total Protein 5.6 (L) 6.0 - 8.0 G/DL Total Bilirubin 0.5 0.3 - 1.2 MG/DL Albumin 2.9 (L) 3.5 - 5.0 G/DL Alk Phosphatase 120 (H) 25 - 110 U/L AST (SGOT) 43 (H) 7 - 40 U/L CO2 26 21 - 30 MMOL/L ALT (SGPT) 37 7 - 56 U/L Anion Gap 14 (H) 3 - 12 eGFR Non 14 (L) >60 mL/min eGFR 17 (L) >60 mL/min LDH-LACTATE DEHYDROGENASE Collection Time: 10/09/19 3:00 AM Result Value Ref Range Lactate Dehydrogenase 439 (H) 100 - 210 U/L Point of Care Testing (Last 24 hours) Glucose: (!) 151 (10/09/19 0300) Radiology and other Diagnostics Review: Pertinent radiology reviewed. Julian Malloy MD Pager [phone] Associated attestation - Karen Cota MD - 10/09/2019 1:04 PM CDT ATTESTATION I personally performed the ruiz portions of the E/M visit, discussed case with re sident and concur with resident documentation of history, physical exam, assessm ent, and treatment plan unless otherwise noted. Karen Cota [phone] * Odilia Caldwell RN - 10/09/2019 4:59 AM CDT Shift: 7p - 7a NEWS Score:2,2,2 (O2) Pain: Denies pain Nutrition: Regular diet - eating 80 - 100% meals GI/: Voids clear yellow urine, last BM 10/07 Activity: Up with 1 assist and walker, she is doing very well with ambulation Family: Not present Last Shower: 10/07 New Events or Follow-up: No new issues overnight. Her Wbc's elevated to 30.7 tod ay - notified physician. * Paz Epstein PTA - 10/08/2019 2:47 PM CDT PHYSICAL THERAPY NOTE Name: Mary Tim : 1950 Age: [age] y.o. Admission Date: 09/17/2019 LOS: 20 days Pt recently walked back to bed from the restroom. She stated that she is tired and needed to finish her nap. Physical therapy will continue with increasing am bulation distance and safety. Therapist: Paz Epstein, Physical therapist tv production assistant Date: 10/08/2019 * Kenji Peña, - 10/08/2019 2:41 PM CDT Renal Progress Note Name: Mary Tim Today's Date: 10/08/2019 Admission Date: 09/17/2019 LOS: 20 days Assessment/Plan: Principal Problem: Acute renal failure (ARF) (HCC) Active Problems: Hyperkalemia High anion gap metabolic acidosis UTI (urinary tract infection) Physical debility ILD (interstitial lung disease) (HCC) Anemia Abnormal CT of the chest Abnormal abdominal CT scan Elevated CA 19-9 level Diffuse large B-cell lymphoma of lymph nodes of multiple regions (HCC) Ms. Tim is a69 yo F with PMH of HTN, cervical and lumbar spinal fusions, r eported RA who is admitted for ROSHAN. Developed anuric ROSHAN requiring intermittent HD. Renal biopsy with DLBCL. 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 Karine Peña D.O. Nephrology Fellow Pager #: This note was composed with Dragon Dictation. As such, there may be transcriptio nal errors. For questions, please contact Dr. Peña. Subjective No overnight events noted. Overall doing well with dialysis. Some nausea with IC chemo. Medications Scheduled Meds:acyclovir (ZOVIRAX) capsule 200 mg, 200 mg, Oral, BID allopurinoL (ZYLOPRIM) tablet 100 mg, 100 mg, Oral, QDAY amitriptyline/gabapentin/emu oil(#) 4/4/10 % topical cream, , Topical, Q8H amLODIPine (NORVASC) tablet 10 mg, 10 mg, Oral, QDAY cyanocobalamin (VITAMIN B-12) tablet 1,000 mcg, 1,000 mcg, Oral, QDAY filgrastim-sndz (ZARXIO) inj syringe 300 mcg, 300 mcg, Subcutaneous, Q24H* folic acid (FOLVITE) tablet 1 mg, 1 mg, Oral, QDAY heparin (porcine) PF syringe 5,000 Units, 5,000 Units, Subcutaneous, Q8H* mineral oil/hydrophilic petrolatum (AQUAPHOR, DERMAPHOR) topical ointment, , Top ical, QDAY polyethylene glycol 3350 (MIRALAX) packet 34 g, 2 packet, Oral, QDAY predniSONE (DELTASONE) tablet 100 mg, 100 mg, Oral, Q24H* senna (SENOKOT) tablet 2 tablet, 2 tablet, Oral, QHS sodium bicarbonate tablet 650 mg, 650 mg, Oral, BID vitamins, multi B, C, Zn & folate (Renal) (NEPHPLEX RX) tablet 1 tablet, 1 tablet, Oral, QDAY Continuous Infusions: PRN and Respiratory Meds:calcium carbonate Q6H PRN, guaiFENesin Q4H PRN, melaton in QHS PRN, simethicone Q6H PRN, sodium chloride 0.9% irrigation bottle PRN, vit paz A & D PRN Review of Systems: General: Denies fever, chills, loss of appetite Neuro: Denies headache Cardio: Denies SOB Resp: Denies cough GI: admits N, abd pain Objective: Vital Signs: Last Filed Vital Signs: 24 Fernanda r Range BP: 120/52 (10/07 1244) Temp: 36.3 C (97.3 F) (10/07 1244) Pulse: 89 (10/07 1244) Respirations: 20 PER MINUTE (10/07 1244) SpO2: 98 % (10/07 124) SpO2 Pulse: 96 (10/06 1830) BP: (107-133)/(46-72) Temp: [36.2 C (97.1 F)-36.9 C (98.4 F)] Pulse: [80-104] Respirations: [16 PER MINUTE-22 PER MINUTE] SpO2: [93 %-100 %] Vitals: 10/07/19 1435 10/07/19 1807 10/08/19 0315 Weight: 79.8 kg (175 lb 14.8 oz) 78.2 kg (172 lb 6.4 oz) 76.6 kg (168 lb 14.4 oz ) Intake/Output Summary: (Last 24 hours) Intake/Output Summary (Last 24 hours) at 10/08/2019 1450 Last data filed at 10/08/2019 1020 Gross per 24 hour Intake 1324.92 ml Output 2215 ml Net -890.08 ml Stool Occurrence: 1(medium formed) Physical Exam Constitutional: Alert and cooperative. No acute distress Cardiac: Normal S1 and S2. No S3, S4, or murmur. RRR. Respiratory: LCTA in all lobes. Abdomen: Soft, nontender, nondistended. No peritoneal signs. No masses. MSK: Normal muscular developed. Extremities: No peripheral edema. Skin: Normal turgor. Skin is moist and warm throughout. Line: Right tunnel catheter Lab Review 24-hour labs: Results for orders placed or performed during the hospital encounter of 09/17/19 (from the past 24 hour(s)) PHOSPHORUS Collection Time: 10/07/19 7:00 PM Result Value Ref Range Phosphorus 2.9 2.0 - 4.5 MG/DL URIC ACID Collection Time: 10/07/19 7:00 PM Result Value Ref Range Uric Acid 2.4 2.0 - 7.0 MG/DL BASIC METABOLIC PANEL Collection Time: 10/07/19 7:00 PM Result Value Ref Range Sodium 139 137 - 147 MMOL/L Potassium 3.7 3.5 - 5.1 MMOL/L Chloride 100 98 - 110 MMOL/L CO2 30 21 - 30 MMOL/L Anion Gap 9 3 - 12 Glucose 92 70 - 100 MG/DL Blood Urea Nitrogen 18 7 - 25 MG/DL Creatinine 1.45 (H) 0.4 - 1.00 MG/DL Calcium 8.0 (L) 8.5 - 10.6 MG/DL eGFR Non 36 (L) >60 mL/min eGFR 43 (L) >60 mL/min PROTIME INR (PT) Collection Time: 10/08/19 3:15 AM Result Value Ref Range INR 1.1 0.8 - 1.2 MAGNESIUM Collection Time: 10/08/19 3:15 AM Result Value Ref Range Magnesium 2.0 1.6 - 2.6 mg/dL CBC AND DIFF Collection Time: 10/08/19 3:15 AM Result Value Ref Range White Blood Cells 11.2 (H) 4.5 - 11.0 K/UL RBC 2.23 (L) 4.0 - 5.0 M/UL Hemoglobin 6.7 (L) 12.0 - 15.0 GM/DL Hematocrit 19.9 (L) 36 - 45 % MCV 89.0 80 - 100 FL MCH 30.1 26 - 34 PG MCHC 33.8 32.0 - 36.0 G/DL RDW 12.9 11 - 15 % Platelet Count 213 150 - 400 K/UL MPV 6.6 (L) 7 - 11 FL Neutrophils 98 (H) 41 - 77 % Lymphocytes 1 (L) 24 - 44 % Monocytes 1 (L) 4 - 12 % Eosinophils 0 0 - 5 % Basophils 0 0 - 2 % Absolute Neutrophil Count 10.97 (H) 1.8 - 7.0 K/UL Absolute Lymph Count 0.14 (L) 1.0 - 4.8 K/UL Absolute Monocyte Count 0.12 0 - 0.80 K/UL Absolute Eosinophil Count 0.00 0 - 0.45 K/UL Absolute Basophil Count 0.01 0 - 0.20 K/UL PHOSPHORUS Collection Time: 10/08/19 3:15 AM Result Value Ref Range Phosphorus 4.3 2.0 - 4.5 MG/DL URIC ACID Collection Time: 10/08/19 3:15 AM Result Value Ref Range Uric Acid 4.9 2.0 - 7.0 MG/DL COMPREHENSIVE METABOLIC PANEL Collection Time: 10/08/19 3:15 AM Result Value Ref Range Sodium 137 137 - 147 MMOL/L Potassium 4.1 3.5 - 5.1 MMOL/L Chloride 98 98 - 110 MMOL/L Glucose 137 (H) 70 - 100 MG/DL Blood Urea Nitrogen 30 (H) 7 - 25 MG/DL Creatinine 2.08 (H) 0.4 - 1.00 MG/DL Calcium 8.0 (L) 8.5 - 10.6 MG/DL Total Protein 5.5 (L) 6.0 - 8.0 G/DL Total Bilirubin 0.4 0.3 - 1.2 MG/DL Albumin 2.8 (L) 3.5 - 5.0 G/DL Alk Phosphatase 129 (H) 25 - 110 U/L AST (SGOT) 33 7 - 40 U/L CO2 27 21 - 30 MMOL/L ALT (SGPT) 24 7 - 56 U/L Anion Gap 12 3 - 12 eGFR Non 24 (L) >60 mL/min eGFR 29 (L) >60 mL/min TYPE & CROSSMATCH Collection Time: 10/08/19 3:15 AM Result Value Ref Range Units Ordered 1 Crossmatch Expires 10/11/2019,2359 Record Check FOUND ABO/RH(D) A POS Antibody Screen NEG Electronic Crossmatch YES Unit Number [id number] Blood Component Type RBC,ADSOL,LEUKO REDUCED Unit Division 0 Status OF Unit DISCARDED Transfusion Status OK TO TRANSFUSE Crossmatch Result COMPATIBLE,ELECTRONIC Unit Number [id number] Blood Component Type RBC,ADSOL,LEUKO REDUCED,IRRADIATED Unit Division 0 Status OF Unit ISSUED Transfusion Status OK TO TRANSFUSE Crossmatch Result COMPATIBLE,ELECTRONIC LDH-LACTATE DEHYDROGENASE Collection Time: 10/08/19 3:15 AM Result Value Ref Range Lactate Dehydrogenase 507 (H) 100 - 210 U/L Point of Care Testing (Last 24 hours) Glucose: (!) 137 (10/08/19 0315) Radiology and other Diagnostics Review: IR LUMBAR PUNCTURE Final Result Successful fluoroscopically guided lumbar puncture. IR provided chemotherapy intrathecal administration. Approved by Evaristo Edmond MD on 10/07/2019 1:46 PM By my electronic signature, I attest that I have personally reviewed the images for this examination and formulated the interpretations and opinions expressed i n this report Finalized by Ruy Mcguire M.D. on 10/07/2019 1:50 PM. Dictated by Evaristo Edmond MD on 10/07/2019 1:39 PM. CHEST SINGLE VIEW Final Result Further progression of mixed opacities in the left midlung with residual areas o f mixed opacity in the right lower lobe and partial consolidation and volume los s in the right upper lobe. Findings likely reflect progressing pneumonia superim posed on chronic interstitial lung disease. Small bilateral pleural effusions. Finalized by Hesham Dias M.D. on 10/07/2019 7:49 AM. Dictated by Keyur Hernandez on 10/07/2019 7:47 AM. IR CENTRAL VENOUS CATHETER Final Result Ultrasound and fluoroscopic guidance for left 8 [place] chest port placement, as described. IJonathan M.D, the attending radiologist, was present for the criti luis fernando and ruiz portions of the procedure with an advanced practice provider, reside nt, and/or fellow participating. Overlapping portions were non ruiz and I was im mediately available. I interpret the critical and ruiz portion of this procedure to have been the procedural time out and needle access. @TT Approved by George Mckinney D.O. on 10/04/2019 10:00 AM By my electronic signature, I attest that I have personally reviewed the images for this examination and formulated the interpretations and opinions expressed i n this report Finalized by Jonathan Shirley M.D. on 10/04/2019 10:30 AM. Dictated by George mckenna D.O. on 10/04/2019 9:57 AM. IR BONE MARROW BIOPSY Final Result Successful fluoroscopically guided bone marrow aspirate and bone marrow biopsy a s described. Pathologic interpretation pending. Finalized by Jonathan Shirley M.D. on 10/05/2019 9:06 AM. Dictated by Jonathan camilo M.D. on 10/05/2019 9:06 AM. NM PET SCAN WHOLEBODY (HEAD-TOES) Final Result Hypermetabolic michael, extensive extranodal (including pulmonary, hepatic, adrena l, renal, gastric, and pancreatic), and multifocal osseous involvement by lympho ma 5PS = 5 Finalized by Maximilian Osorio M.D. on 10/04/2019 5:32 AM. Dictated by Maximilian mann M.D. on 10/03/2019 5:12 PM. IR LUMBAR PUNCTURE Final Result Diagnostic lumbar puncture. Sourav Pinto M.D., the attending interventional radiologist, performed the entire procedure, personally reviewed the images, and formulated the interpr etations and opinions expressed in this report. @TT Finalized by Sourav Coon M.D. on 10/03/2019 1:56 PM. Dictated by Sourav reed M.D. on 10/03/2019 1:56 PM. CHEST 2 VIEWS Final Result 1. Increased patchy bilateral opacities, most pronounced in the right upper and left midlung. These findings could reflect worsening acute exacerbation of unde rlying interstitial lung disease versus multifocal pneumonia. Follow-up chest ra diographs suggested. 2. Small bilateral pleural effusions. By my electronic signature, I attest that I have personally reviewed the images for this examination and formulated the interpretations and opinions expressed i n this report Finalized by Eric Brennan M.D. on 10/02/2019 2:32 PM. Dictated by Trevin Quiros M.D. on 10/02/2019 2:02 PM. IR CENTRAL VENOUS CATHETER Final Result Successful image-guided placement of tunneled hemodialysis catheter. Jonathan Pinto M.D, the attending radiologist, was present for the criti luis fernando and ruiz portions of the procedure with an advanced practice provider, reside nt, and/or fellow participating. Overlapping portions were non ruiz and I was im mediately available. I interpret the critical and ruiz portion of this procedure to have been the procedural time out and needle access. @TT Approved by Alonso Farfan D.O. on 10/01/2019 1:39 PM By my electronic signature, I attest that I have personally reviewed the images for this examination and formulated the interpretations and opinions expressed i n this report Finalized by Jonathan Shirley M.D. on 10/01/2019 1:45 PM. Dictated by Alonso Farfan D.O. on 10/01/2019 1:37 PM. IR RENAL BIOPSY Final Result Successful ultrasound guided left kidney biopsy as described. Specimen was co nfirmed adequate by the cytopathologist at time of procedure. Mak Pinto M.D., the attending radiologist, was present for the procedure, pe rsonally reviewed the images, and formulated the interpretations and opinions ex pressed in this report. @TT Finalized by MAK LYNCH on 09/30/2019 1:35 PM. Dictated by MAK LYNCH on 09/30/2019 1:[address] ABD/PELV WO CONTRAST Final Result 1. Abnormalities involving the liver, gallbladder, kidneys, right adrenal gland and retroperitoneum. Leading consideration is lymphoma. [place] disease and IgG-4 related disease are additional considerations. 2. Mild diffuse enlargement of the kidneys with ill-defined soft tissue thickeni ng in the renal pelves and asymmetric perinephric stranding. 3. Mild nodular enlargement of the right adrenal gland with ill-defined strandin g. 4. Mild central retroperitoneal lymphadenopathy. Mild diffuse soft tissue thicke norman in the presacral space in the pelvis may represent additional lymphadenopat hy. 5. Multiple small hypodense hepatic lesions 6. Diffuse enlargement of the gallbladder with pericystic stranding. Acute michela cystitis should also be considered for this finding. 7. Abnormal low attenuation tissue in the body and tail of the pancreas with a s mall calculus towards the midline. This low-attenuation tissue most likely repre sents a dilated main pancreatic duct. Dr. Hoyt discussed these findings with Dc by telephone at 1:55 PM 09/26/2019 Finalized by Lasha Hoyt M.D. on 09/26/2019 1:57 PM. Dictated by Lasha Hoyt M.D. on 09/26/2019 1:[address] CHEST WO CONTRAST Final Result Abnormal Addendum 1 of 1 Finalized by Eric Brennan M.D. on 09/25/2019 [...] Eric Brennan M.D. on 09/25/2019 8:38 AM. Final CHEST 2 VIEWS Final Result Areas of fibrosis. Superimposed opacities may be due to atelectasis, pneumonia a nd/or scarring. CT chest is recommended for further evaluation. By my electronic signature, I attest that I have personally reviewed the images for this examination and formulated the interpretations and opinions expressed i n this report Finalized by Carmela Lane M.D. on 09/24/2019 3:10 PM. Dictated by Yakelin cutler M.D. on 09/24/2019 2:26 PM. 2D + DOPPLER ECHO Final Result US RENAL BLADDER COMPLETE Final Result 1. Symmetric, normal renal size. 2. Patent renal vessels. No evidence of hemodynamically significant renal arter y stenosis. 3. Elevated intrarenal resistivity, most compatible with a nonspecific, diffuse parenchymal disease. Finalized by Brenda Stahl M.D. on 09/18/2019 12:17 PM. Dictated by Alexis Jovel on 09/18/2019 9:16 AM. US DOPPLER ABD PELV RETROPER COMP Final Result 1. Symmetric, normal renal size. 2. Patent renal vessels. No evidence of hemodynamically significant renal arter y stenosis. 3. Elevated intrarenal resistivity, most compatible with a nonspecific, diffuse parenchymal disease. Finalized by Brenda Stahl M.D. on 09/18/2019 12:17 PM. Dictated by Alexis Jovel on 09/18/2019 9:16 AM. GENERAL RAD CHEST EXTERNAL IMAGING Final Result Kenji Peña DO Pager [phone] Associated attestation - Levar Coleman DO - 10/08/2019 4:56 PM CDT ATTESTATION Ms. Tim looked great today. She was smiling and talkative. She reports her p ain has disappeared since starting chemotherapy. Her UOP has also improved. We w ill assess her for dialysis needs tomorrow. Avoid nephrotoxins as able. I personally performed the ruiz portions of the E/M visit, discussed case with th e fellow and concur with fellow documentation of history, physical exam, assessm ent, and treatment plan unless otherwise noted. Staff name: Levar Coleman DO * Karen Cota MD - 10/08/2019 8:05 AM CDT General Progress Note Name: Mary Tim Today's Date: 10/08/2019 Admission Date: 09/17/2019 LOS: 20 days Assessment/Plan: Principal Problem: Acute renal failure (ARF) (HCC) Active Problems: Hyperkalemia High anion gap metabolic acidosis UTI (urinary tract infection) Physical debility ILD (interstitial lung disease) (HCC) Anemia Abnormal CT of the chest Abnormal abdominal CT scan Elevated CA 19-9 level Diffuse large B-cell lymphoma of lymph nodes of multiple regions (HCC) Mary Tim is a 69-year-old F with PMH of HTN and cervical (C3-C7) and lumb ar (L3-L5) spinal fusions who presented to [facility] 09/16 for progressively wor sening weakness and fatigue over the past 2 months and was found to have acute r enal failure and hyperkalemia and anion gap metabolic acidosis. Work-up this adm ission, including diagnostic LP and PET CT consistent with DLBCL. #DLBCL, Stage IV, GCB sub-type CD20+ - FISH for Myc, Ki-67 pending - PET CT 10/02: shows kidney, ureters, gallbladder, uterus, gastric, osseus, panc reatic pulmonary, hepatic, and adrenal involvement of disease - Diagnostic LP 10/03, negative for malignant cells. High IC DESIGNER CUSTOM-IPI - s/p BMBx 10/03: normocellular marrow, negative for lymphoma - ECOG status 1 - Renal biopsy from 09/28 shows pathology that is consistent with DLBCL PLAN > R-CHOP C1D4 > Cytoxin, 50% reduced > Rituxan day 2 with plans for G-CSF > Will plan for 2 IT chemo tx's per cycle for now > Will plan for next IT chemo with IR 10/09 > Patient from [place], [place] but is willing to travel to [place] for treatment. Dr. Zhong in [place] may be able to handle OP treatment. Will plan at this point for Zarxio daily > Patient at high risk for TLS, given tumor burden. Will continue fluids 50 cc/hr. OK with nephrology > GI consulted for EUS due to liver, pancreas, and stomach involvement of lymphoma on CT. Will likely complete as outpatient > Will monitor TLS labs BID - For uric acid >12, provide 6 mg rasburicase, and >8, provide 3 mg rasburicase > PPx with acyclovir 200 mg BID > Continue allopurinol 100 mg daily #Oliguric ROSHAN, likely 2/2 DLBCL Infiltration #Anion-Gap Metabolic Acidosis - likely ATN, Nephrology noted muddy brown casts and pyuria on microscopy - 7 at presentation, small improvement with IVF - Renal US unremarkable - UPr:Cr 0.9, - Renal consulted, discussed with . Plan to replace Zambrano given diste nded urinary bladder and large kidneys and renal pelvis. -pathology of renal bx shows DLBCL; see above - HD line placed - It is unknown if kidneys will regain sufficient function to not need HD. Unabl e to determine ESRD status for another 3 months. Additionally, will depend on DL BCL response. PLAN > Continue sodium bicarb tablets > Renal following, appreciate recs > hold IVFs for now, dialysis today > Inpatient dialysis schedule TTS. Will need dialysis as an outpatient. Patient currently with right tunneled IJ for access. Will discuss with renal about need for permanent access > BMP BID #Sarcoidosis - likely stage 2 - ILD Labs largely negative except for elevated Aldolase at 9.2. - PFTs consistent with restrictive pattern. - Bronchoscopy biopsy results showed unremarkable respiratory mucosa. Negative f or granuloma or malignancy. - Lymph node biopsy results showing granuloma formationand in conjunction with CT findings isconcerning for sarcoidosis. PLAN > Pulm consulted, will f/u in clinic after discharge for further steroid management > Continue incentive spirometry as ordered and supplemental O2 as needed. She will likely need continued O2 therapy given sarcoid findings > Taper O2 as tolerated while inpatient. Was not on oxygen at home #UTI, resolved -UA shows blood and pyuria - UCx with e. coli and enterobacter.Sensitive to Rocephin - completedrocephin for 7 days09/25 #Constipation > Miralax, senokot PRN > Hold dulcolax #HTN > Hold CECE, HCTZ > Blood pressure mildly elevated.On [id number] > d/c PRN hydralazine and labetalol. May consider PRN PO clonidine if hypertensive #Chronic Back Pain > will hold [place] for now, given chemo regimen > emu oil prn #Normocytic Anemia - Status post 1 PRBC09/24.hemoglobin around 10. - Iron studies showed mixed picture of iron deficiency and anemia of chronic d isease - B12 and folate low, continue - LDH elevated. Haptoglobin normal. Peripheral smear showed normocytic anemia. Absolute lymphocytopenia. Mild monocytosis. PLAN >Transfuse if hemoglobin less than 7 #Transaminitis, mild - resolved - Elevated LFTs on admission 09/16 PLAN > Will trend LFTs #Physical debility #Impaired Dentition > PT OT eval. 10/03 recommending inpatient.Patient agreeable for rehab. SW To assist with placement > Will need to work on finding patient's top dentures, which were lost during admission following a procedure FEN: hold IVFs for now, dialysis today, regular diet, replace lytes PRN VTE PPx: HsQ Code: Full Disp: Continue admission to inpatient hematology Patient seen and discussed with Dr. Cipriano Malloy MD Internal Medicine, PGY-1 Available on Voalte Pager: [phone] Subjective Mary Tim is a 69 y.o. female. Overnight, patient's hemoglobin resulted 6 .7 so she received a unit of irradiated PRBCs. This morning, patient was seen at bedside. She is resting comfortably in bed. She continues to have abdominal pain, but says it continues to improve every day . She denies continued back pain. She continues to have a cough, that she says is productive. She would like more cough medicine. She otherwise denies nause a, vomiting, diarrhea, constipation, shortness of breath. Medications Scheduled Meds:acyclovir (ZOVIRAX) capsule 200 mg, 200 mg, Oral, BID allopurinoL (ZYLOPRIM) tablet 100 mg, 100 mg, Oral, QDAY amitriptyline/gabapentin/emu oil(#) 4/4/10 % topical cream, , Topical, Q8H amLODIPine (NORVASC) tablet 10 mg, 10 mg, Oral, QDAY cyanocobalamin (VITAMIN B-12) tablet 1,000 mcg, 1,000 mcg, Oral, QDAY filgrastim-sndz (ZARXIO) inj syringe 300 mcg, 300 mcg, Subcutaneous, Q24H* folic acid (FOLVITE) tablet 1 mg, 1 mg, Oral, QDAY heparin (porcine) PF syringe 5,000 Units, 5,000 Units, Subcutaneous, Q8H* mineral oil/hydrophilic petrolatum (AQUAPHOR, DERMAPHOR) topical ointment, , Top ical, QDAY polyethylene glycol 3350 (MIRALAX) packet 34 g, 2 packet, Oral, QDAY predniSONE (DELTASONE) tablet 100 mg, 100 mg, Oral, Q24H* senna (SENOKOT) tablet 2 tablet, 2 tablet, Oral, QHS sodium bicarbonate tablet 650 mg, 650 mg, Oral, BID vitamins, multi B, C, Zn & folate (Renal) (NEPHPLEX RX) tablet 1 tablet, 1 tablet, Oral, QDAY Continuous Infusions: sodium chloride 0.9 % infusion 50 mL/hr at 10/07/194 PRN and Respiratory Meds:calcium carbonate Q6H PRN, guaiFENesin Q4H PRN, melaton in QHS PRN, simethicone Q6H PRN, sodium chloride 0.9% irrigation bottle PRN, vit paz A & D PRN Review of Systems: Positive for cough, abdominal pain Negative for nausea, vomiting, shortness of breath, fevers, chills, constipation , back pain Objective: Vital Signs: Last Filed Vital Signs: 24 Fernanda r Range BP: 107/54 (10/08 747) Temp: 36.6 C (97.8 F) (10/08 747) Pulse: 88 (10/08 747) Respirations: 18 PER MINUTE (10/08 747) SpO2: 98 % (10/08 747) SpO2 Pulse: 96 (10/06 1830) BP: (102-176)/(46-156) Temp: [36.4 C (97.5 F)-36.9 C (98.4 F)] Pulse: [80-104] Respirations: [14 PER MINUTE-26 PER MINUTE] SpO2: [93 %-100 %] Vitals: 10/07/19 1435 10/07/19 1807 10/08/19 0315 Weight: 79.8 kg (175 lb 14.8 oz) 78.2 kg (172 lb 6.4 oz) 76.6 kg (168 lb 14.4 oz ) Intake/Output Summary: (Last 24 hours) Intake/Output Summary (Last 24 hours) at 10/08/2019 0805 Last data filed at 10/08/2019 0625 Gross per 24 hour Intake 1552 ml Output 2223 ml Net -671 ml Stool Occurrence: 1(medium formed) Physical Exam GEN: No distress. Pleasant appearing 69-year-old female Head: Normocephalic, atraumatic. NC in place. Bottom dentures in place Eyes: EOMI CV: Normal rate and rhythm, no murmurs Pulmonary: Breathing is not labored, mild inspiratory crackles are heard bilater ally. Abdomen: Soft, tender to palpation in mid and left quadrants. Bowel sounds pres ent Extremities: Trace edema bilaterally in LEs Skin: No rash on exposed skin. Neuro: Normal strength in bilateral LEs and UEs psych: Normal mood and affect, converses appropriately Lab Review 24-hour labs: Results for orders placed or performed during the hospital encounter of 09/17/19 (from the past 24 hour(s)) POC GLUCOSE Collection Time: 10/07/19 12:48 PM Result Value Ref Range Glucose, POC 175 (H) 70 - 100 MG/DL CELL COUNT W/DIFF-CSF Collection Time: 10/07/19 1:10 PM Result Value Ref Range Cell Count Tube,CSF TUBE 3 White Blood Cells,CSF 1 <5 /UL Red Blood Cells,CSF 23 /UL Neutrophils, CSF 17 % Lymphocytes, CSF 45 % Monocyte/Hisotocyte, CSF 38 % Clarity,CSF CLEAR Path Interpretation, CSF Pathologist Signature TOTAL PROTEIN-CSF Collection Time: 10/07/19 1:10 PM Result Value Ref Range Total Protein,CSF 34 15 - 45 MG/DL GLUCOSE-CSF Collection Time: 10/07/19 1:10 PM Result Value Ref Range Glucose,CSF 104 (H) 40 - 75 MG/DL Xanthochromia,CSF NONE LEUKEMIA/LYMPHOMA PANEL FLUID/TISSUE Collection Time: 10/07/19 1:10 PM Result Value Ref Range Leuk/Lymph Interpretation SEE PATHOLOGY REPORT Specimen/LLM CSF CSF TUBE VOLUMES Collection Time: 10/07/19 1:10 PM Result Value Ref Range CSF Tube 1 3.0 mL CSF Tube 2 3.0 mL CSF Tube 3 2.0 mL CSF Tube 4 0.0 mL PHOSPHORUS Collection Time: 10/07/19 7:00 PM Result Value Ref Range Phosphorus 2.9 2.0 - 4.5 MG/DL URIC ACID Collection Time: 10/07/19 7:00 PM Result Value Ref Range Uric Acid 2.4 2.0 - 7.0 MG/DL BASIC METABOLIC PANEL Collection Time: 10/07/19 7:00 PM Result Value Ref Range Sodium 139 137 - 147 MMOL/L Potassium 3.7 3.5 - 5.1 MMOL/L Chloride 100 98 - 110 MMOL/L CO2 30 21 - 30 MMOL/L Anion Gap 9 3 - 12 Glucose 92 70 - 100 MG/DL Blood Urea Nitrogen 18 7 - 25 MG/DL Creatinine 1.45 (H) 0.4 - 1.00 MG/DL Calcium 8.0 (L) 8.5 - 10.6 MG/DL eGFR Non 36 (L) >60 mL/min eGFR 43 (L) >60 mL/min PROTIME INR (PT) Collection Time: 10/08/19 3:15 AM Result Value Ref Range INR 1.1 0.8 - 1.2 MAGNESIUM Collection Time: 10/08/19 3:15 AM Result Value Ref Range Magnesium 2.0 1.6 - 2.6 mg/dL CBC AND DIFF Collection Time: 10/08/19 3:15 AM Result Value Ref Range White Blood Cells 11.2 (H) 4.5 - 11.0 K/UL RBC 2.23 (L) 4.0 - 5.0 M/UL Hemoglobin 6.7 (L) 12.0 - 15.0 GM/DL Hematocrit 19.9 (L) 36 - 45 % MCV 89.0 80 - 100 FL MCH 30.1 26 - 34 PG MCHC 33.8 32.0 - 36.0 G/DL RDW 12.9 11 - 15 % Platelet Count 213 150 - 400 K/UL MPV 6.6 (L) 7 - 11 FL Neutrophils 98 (H) 41 - 77 % Lymphocytes 1 (L) 24 - 44 % Monocytes 1 (L) 4 - 12 % Eosinophils 0 0 - 5 % Basophils 0 0 - 2 % Absolute Neutrophil Count 10.97 (H) 1.8 - 7.0 K/UL Absolute Lymph Count 0.14 (L) 1.0 - 4.8 K/UL Absolute Monocyte Count 0.12 0 - 0.80 K/UL Absolute Eosinophil Count 0.00 0 - 0.45 K/UL Absolute Basophil Count 0.01 0 - 0.20 K/UL PHOSPHORUS Collection Time: 10/08/19 3:15 AM Result Value Ref Range Phosphorus 4.3 2.0 - 4.5 MG/DL URIC ACID Collection Time: 10/08/19 3:15 AM Result Value Ref Range Uric Acid 4.9 2.0 - 7.0 MG/DL COMPREHENSIVE METABOLIC PANEL Collection Time: 10/08/19 3:15 AM Result Value Ref Range Sodium 137 137 - 147 MMOL/L Potassium 4.1 3.5 - 5.1 MMOL/L Chloride 98 98 - 110 MMOL/L Glucose 137 (H) 70 - 100 MG/DL Blood Urea Nitrogen 30 (H) 7 - 25 MG/DL Creatinine 2.08 (H) 0.4 - 1.00 MG/DL Calcium 8.0 (L) 8.5 - 10.6 MG/DL Total Protein 5.5 (L) 6.0 - 8.0 G/DL Total Bilirubin 0.4 0.3 - 1.2 MG/DL Albumin 2.8 (L) 3.5 - 5.0 G/DL Alk Phosphatase 129 (H) 25 - 110 U/L AST (SGOT) 33 7 - 40 U/L CO2 27 21 - 30 MMOL/L ALT (SGPT) 24 7 - 56 U/L Anion Gap 12 3 - 12 eGFR Non 24 (L) >60 mL/min eGFR 29 (L) >60 mL/min TYPE & CROSSMATCH Collection Time: 10/08/19 3:15 AM Result Value Ref Range Units Ordered 1 Crossmatch Expires 10/11/2019,2359 Record Check FOUND ABO/RH(D) A POS Antibody Screen NEG Electronic Crossmatch YES Unit Number [id number] Blood Component Type RBC,ADSOL,LEUKO REDUCED Unit Division 0 Status OF Unit DISCARDED Transfusion Status OK TO TRANSFUSE Crossmatch Result COMPATIBLE,ELECTRONIC Unit Number [id number] Blood Component Type RBC,ADSOL,LEUKO REDUCED,IRRADIATED Unit Division 0 Status OF Unit ISSUED Transfusion Status OK TO TRANSFUSE Crossmatch Result COMPATIBLE,ELECTRONIC Point of Care Testing (Last 24 hours) Glucose: (!) 137 (10/08/19 0315) POC Glucose (Download): (!) 175 (10/07/19 1248) Radiology and other Diagnostics Review: Pertinent radiology reviewed. Julian Malloy MD Pager [phone] ATTESTATION I personally performed the ruiz portions of the E/M visit, discussed case with re sident and concur with resident documentation of history, physical exam, assessm ent, and treatment plan unless otherwise noted. Karen Cota [phone] * Odilia Caldwell RN - 10/08/2019 5:32 AM CDT Shift: 7p - 7a NEWS Score: 2,2,2 (O2) Pain: Denies pain Nutrition: Regular diet - good appetite GI/: Voids clear yellow urine, last BM 10/05 Activity: Up with 1 assist and walker to bathroom Family: Not present Last Shower: 10/06 New Events or Follow-up: No news issues overnight. Hgb 6.9 today - will transfus e. * Willie Gillespie RN - 10/07/2019 2:02 PM CDT Pt transferred to dialysis. * Willie Gillespie RN - 10/07/2019 1:34 PM CDT Pt arrived to IR pre/post for recovery. Report obtained from Jie WATKINS. VSS on RA . No s/s of acute distress noted. Pt denies pain and nausea. Procedure site CDI. health care social worker contacted plan to take pt to dialysis. Cart locked in low position, call light within reach. Will continue to monitor patient until recovery comple te. * Paz Epstein PTA - 10/07/2019 11:47 AM CDT PHYSICAL THERAPY NOTE Name: Mary Tim : 1950 Age: [age] y.o. Admission Date: 09/17/2019 LOS: 19 days Patient was unavailable for physical therapy/off the unit to IR for LP with IT c hemo. Physical therapy will continue to follow and provide intervention as faye cated. Therapist: Paz Epstein Physical therapist tv production assistant Date: 10/07/2019 * Willie Gillespie RN - 10/07/2019 11:00 AM CDT Pt arrived to IR pre/post for procedure work up. VSS on RA. No s/s of acute dist ress noted. Denies pain and nausea. PIV initiated, pt tolerated well / PIV flush es easily. Procedure and discharge instructions reviewed, pt verbalizes understa nding. Pt cart locked in low position, call light within reach. Will continue to monitor patient. * Gloria Head, OT - 10/07/2019 10:26 AM CDT OCCUPATIONAL THERAPY PROGRESS NOTE Name: Mary Tim : 1950 Age: [age] y.o. Admission Date: 09/17/2019 LOS: 19 days Mobility Patient Turn/Position: Supine Progressive Mobility Level: Walk in room Distance Walked (feet): 100 ft Level of Assistance: Stand by assistance Assistive Device: Walker Time Tolerated: 11-30 minutes Activity Limited By: Fatigue;Weakness Subjective Pertinent Dx per Physician: PMH: back pain, cervical fusion, lumbar fusion, & chronic pain- admit with worsening weakness/fatigue & found to have acute renal failure with hyperkalemia & anion gap metabolic acidosis Precautions: Falls Pain / Complaints: Patient demonstrates nonverbal signs of pain;Patient agrees t o participate in therapy Pain Location: Back("This chair is not great.") Comments: RN cleared patient to participate in OT session. At beginning of sessi on, patient was sitting in chair, at end of session patient was supine in bed, b ed alarm on. RN notified. Objective Psychosocial Status: Willing and Cooperative to Participate Persons Present: Nursing Staff Home Living Type of Home: Mobile Home Home Layout: One Level;Stairs to Enter w/ Rails(3-5 stairs w/ rail to enter) Bathroom Shower / Tub: Tub/Shower Unit Bathroom Toilet: Standard Bathroom Equipment: Grab Bars in Shower;Shower Chair Prior Function Level Of [place]: Independent with ADLs and functional transfers;Independen t with homemaking w/ ambulation Lives With: Alone Receives Help From: None Needed Other Function Comments: Denies recent h/o falls but does report falling ~6 year s ago in her bathtub which ultimately resulted in her back surgeries. Lives devora e with no assist available. Pt reports that she plans to return home with her 88 y.o. sister and [id number]. Indicates that they both use walkers and take c are of eachother. Pt also reports that her sister has a paid caregiver to assist with IADLs whom will likely provide her with transportation home at discharge. ADL's Where Assessed: Standing at Sink;Chair Eating Assist: Independent Eating Deficits: No Assist Needed Grooming Assist: Stand By Assist Grooming Deficits: Setup;D[employer] Care LE Dressing Assist: Stand By Assist LE Dressing Deficits: Don/Doff R Sock;Don/Doff L Sock Comment: Sitting in chair, completed LB dressing to don bilateral socks. Complet ed mobility to/from bathroom with SBA using walker. Completed standing grooming tasks to complete denture care with SBA using walker. ADL Mobility Bed Mobility: Supine to Sit: Standby assist Bed Mobility: Sit to Supine: Standby assist Transfer Type: Sit to stand Transfer: Assistance Level: To/from;Toilet;Standby assist Transfer: Assistive Device: Roller walker End of Activity Status: In bed Gait Distance: 50 feet Gait: Assistance Level: Standby assist Gait: Assistive Device: Roller walker Activity Tolerance Endurance: 4/5 Tolerates 30+ Minutes Exercise W/O Fatigue UE Strength / Tone Overall Strength / Tone: WFL Able to Perform ADL Tasks;4/5 Education Persons Educated: Patient Teaching Methods: Verbal Instruction Patient Response: Verbalized and Demo Understanding Topics: Role of OT, Goals for Therapy Goal Formulation: With Patient Assessment Assessment: Decreased ADL Status;Decreased Endurance;Decreased Self-Care Trans;D ecreased High-Level ADLs Prognosis: Good Goal Formulation: Patient Comments: Patient making appropriate gains towards OT goals. Patient would benef it from continued OT intervention in acute care setting to increase OOB activiti es. AM-PAC 6 Clicks Daily Activity Inpatient Putting on and taking off regular lower body clothes?: A Little Bathing (Including washing, rinsing, drying): A Little Toileting, which includes using toilet, bedpan, or urinal: A Little Putting on and taking off regular upper body clothing: None Taking care of personal grooming such as brushing teeth: None Eating meals?: None Daily Activity Raw Score: 21 Standardized (t-scale) score: 44.27 CMS 0-100% Score: 32.79 CMS G Code Modifier: CJ Plan OT Frequency: 3-5x/week OT Plan for Next Visit: progress mobility, standing endurance ADLs ADL Goals Patient Will Perform Grooming: Standing at Sink;w/ Mod Independent Patient Will Perform LE Dressing: w/ Modified Independent Patient Will Perform Toileting: w/ Modified Independent Functional Transfer Goals Pt Will Perform All Functional Transfers: Modified Independent OT Discharge Recommendations Recommendation: Inpatient setting Patient Currently Requires Equipment: Walker with wheels Patient requires the use of a walker with wheels to complete ADLs in the home including meal preparation, ambulation the bathroom for toileting, bathing and grooming, and safe home mobility. Patient is unable to complete these ADLs w ith a cane or crutch and can safely use the walker. Therapist: EDWIN [place] [id number] Date: 10/07/2019 * Nidia Vyas RD - 10/07/2019 10:04 AM CDT CLINICAL NUTRITION Clinical Nutrition Follow-Up Assessment Name: Mary Tim : 1950 Age: [age] y.o. Admission Date: 09/17/2019 LOS: 19 days Recommendation: Continue current diet. Encourage soft, moist high protein foods with each meal. Novasource Renal PRN. Comments: 69-year-old F with PMH of HTN and cervical (C3-C7) and lumbar (L3-L5) spinal fus ions who presented to [facility] 09/16 for progressively worsening weakness and f atigue over the past 2 months and was found to have acute renal failure and hype rkalemia and anion gap metabolic acidosis. Work-up this admission, including ryanne gnostic LP and PET CT consistent with DLBCL. R-CHOP initiation 10/05. S/w pt rega rding adequate nutrition intake with emphasis on protein. She has good appetite and PO intake her only barrier is missing top dentures so cannot eat tough foods like meat. Discussed soft, moist high protein ideas. Pt likes Novasource. Stage 3 pressure injury to L buttock and stage 2 pressure injury to inner buttock, ne phlex onboard. Weight stable. Denies GI distress. Nutrition Assessment of Patient: Admit Weight: 76.7 kg; Weight Change Since Admit: +0.2 kg BMI (Calculated): 26.44; BMI Categories Adult: Over Weight: 25-29.9 Pertinent Allergies/Intolerances: none Pertinent Labs: K+ 5.4, phos 6.0, cr 7.99; Pertinent Meds: tums, Vit B-12, folic acid; Oral Diet Order: Regular; Current Oral Intake: Adequate Estimated Calorie Needs: 9234-1692(28-32kcal/kg/desired wt) Estimated Protein Needs: 99-112(1.5-1.7g/kg/desired wt) Malnutrition Assessment: Does not meet criteria; ; ; ; ; Nutrition Focused Physical Assessment: ; ; ; ; Edema: Yes; Severity: Mild; Location: Lower extremities Pressure Injury: L buttock stage 3, inner buttock stage 2 Nutrition Diagnosis: Increased nutrient needs, specify:(kcal/protein) Etiology: demands for healing Signs & Symptoms: stage 3 pressure injury Intervention / Plan: Monitor PO intake, wt trends, meds, labs, and GI health. [facility]. Goals: Verbalize understanding of diet Time Frame: Prior to discharge Status: Met Prevent further skin breakdown Time Frame: Throughout stay Status: Ongoing Nidia Vyas RD, MAILROOM CLERK, LD Office: [phone] Voalte: [phone] * Kenji Peña DO - 10/07/2019 9:59 AM CDT Renal Progress Note Name: Mary Tim Today's Date: 10/07/2019 Admission Date: 09/17/2019 LOS: 19 days Assessment/Plan: Principal Problem: Acute renal failure (ARF) (HCC) Active Problems: Hyperkalemia High anion gap metabolic acidosis UTI (urinary tract infection) Physical debility ILD (interstitial lung disease) (HCC) Anemia Abnormal CT of the chest Abnormal abdominal CT scan Elevated CA 19-9 level Diffuse large B-cell lymphoma of lymph nodes of multiple regions (HCC) Ms. Tim is a69 yo F with PMH of HTN, cervical and lumbar spinal fusions, r eported RA who is admitted for ROSHAN. Developed anuric ROSHAN requiring intermittent HD. Renal biopsy with DLBCL. 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 1L UF. Can adjust based on Crit line. Patient seen on HD - Plan for MWF HD moving forward - Continue with Renal HD diet - Monitor daily weights - Avoid NSAIDs and contrast if possible - Avoid nephrotoxic medications - Renally dose medications - We will continue to follow - Please page with questions The patient was assessed and the appropriate management was discussed with Dr. Karine Peña D.O. Nephrology Fellow Pager #: This note was composed with Dragon Dictation. As such, there may be transcriptio nal errors. For questions, please contact Dr. Peña. Subjective No overnight events noted. No nausea, vomiting, loss of appetite, abdominal pain , confusion, disorientation. Plan for IT chemotherapy Medications Scheduled Meds:acyclovir (ZOVIRAX) capsule 200 mg, 200 mg, Oral, BID [MAR Hold] allopurinoL (ZYLOPRIM) tablet 100 mg, 100 mg, Oral, QDAY amitriptyline/gabapentin/emu oil(#) 4/4/10 % topical cream, , Topical, Q8H [MAR Hold] amLODIPine (NORVASC) tablet 10 mg, 10 mg, Oral, QDAY [MAR Hold] cyanocobalamin (VITAMIN B-12) tablet 1,000 mcg, 1,000 mcg, Oral, QDAY [MAR Hold] filgrastim-sndz (ZARXIO) inj syringe 300 mcg, 300 mcg, Subcutaneous, Q24H* [MAR Hold] folic acid (FOLVITE) tablet 1 mg, 1 mg, Oral, QDAY [MAR Hold] heparin (porcine) PF syringe 5,000 Units, 5,000 Units, Subcutaneous, Q8H* [MAY Hold] mineral oil/hydrophilic petrolatum (AQUAPHOR, DERMAPHOR) topical oint ment, , Topical, QDAY [MAY Hold] polyethylene glycol 3350 (MIRALAX) packet 34 g, 2 packet, Oral, QDAY [MAY Hold] predniSONE (DELTASONE) tablet 100 mg, 100 mg, Oral, Q24H* [MAY Hold] senna (SENOKOT) tablet 2 tablet, 2 tablet, Oral, QHS [MAY Hold] sodium bicarbonate tablet 650 mg, 650 mg, Oral, BID [MAY Hold] vitamins, multi B, C, Zn & folate (Renal) (NEPHPLEX RX) tablet 1 tablet, 1 tablet, Oral, QDAY Continuous Infusions: sodium chloride 0.9 % infusion 50 mL/hr at 10/05/194 PRN and Respiratory Meds:[MAY Hold] anticoagulant sodium citrate IP Dialysis PRN , [MAY Hold] calcium carbonate Q6H PRN, [MAY Hold] guaiFENesin Q4H PRN, [MAY Hol d] melatonin QHS PRN, [MAY Hold] simethicone Q6H PRN, [MAY Hold] sodium chloride 0.9% (NS) IP Dialysis PRN, [MAY Hold] sodium chloride 0.9% (NS) IP Dialysis PRN, [MAY Hold] sodium chloride 0.9% (NS) IP Dialysis PRN, [MAY Hold] sodium chloride 0.9% irrigation bottle PRN, [MAY Hold] vitamin A & D PRN Review of Systems: General: Denies fever, chills, loss of appetite Neuro: Denies headache Cardio: Denies SOB Resp: Denies cough GI: Denies N/V, abd pain Objective: Vital Signs: Last Filed Vital Signs: 24 Fernanda r Range BP: 122/57 (10/06 1325) Temp: 36.6 C (97.8 F) (10/06 1100) Pulse: 89 (10/06 1325) Respirations: 14 PER MINUTE (10/06 1325) SpO2: 99 % (10/06 1325) SpO2 Pulse: 89 (10/06 1325) BP: (90-172)/(39-156) Temp: [36.3 C (97.4 F)-36.8 C (98.2 F)] Pulse: [65-98] Respirations: [14 PER MINUTE-26 PER MINUTE] SpO2: [90 %-100 %] Vitals: 10/06/19 0632 10/07/19 0217 10/07/19 0222 Weight: 74.6 kg (164 lb 6.4 oz) 76.8 kg (169 lb 5 oz) 76.8 kg (169 lb 5 oz) Intake/Output Summary: (Last 24 hours) Intake/Output Summary (Last 24 hours) at 10/07/2019 1335 Last data filed at 10/07/2019 1000 Gross per 24 hour Intake 1513 ml Output 350 ml Net 1163 ml Stool Occurrence: 0 Physical Exam Constitutional: Alert and cooperative. No acute distress Cardiac: Normal S1 and S2. No S3, S4, or murmur. RRR. Respiratory: LCTA in all lobes. Abdomen: Soft, nontender, nondistended. No peritoneal signs. No masses. MSK: Normal muscular developed. Extremities: No peripheral edema. Skin: Normal turgor. Skin is moist and warm throughout. Line: Right tunnel catheter Lab Review 24-hour labs: Results for orders placed or performed during the hospital encounter of 09/17/19 (from the past 24 hour(s)) BASIC METABOLIC PANEL Collection Time: 10/06/19 4:21 PM Result Value Ref Range Sodium 140 137 - 147 MMOL/L Potassium 3.9 3.5 - 5.1 MMOL/L Chloride 102 98 - 110 MMOL/L CO2 23 21 - 30 MMOL/L Anion Gap 15 (H) 3 - 12 Glucose 140 (H) 70 - 100 MG/DL Blood Urea Nitrogen 43 (H) 7 - 25 MG/DL Creatinine 3.52 (H) 0.4 - 1.00 MG/DL Calcium 7.6 (L) 8.5 - 10.6 MG/DL eGFR Non 13 (L) >60 mL/min eGFR 16 (L) >60 mL/min PHOSPHORUS Collection Time: 10/06/19 4:21 PM Result Value Ref Range Phosphorus 5.3 (H) 2.0 - 4.5 MG/DL URIC ACID Collection Time: 10/06/19 4:21 PM Result Value Ref Range Uric Acid 4.6 2.0 - 7.0 MG/DL PROTIME INR (PT) Collection Time: 10/07/19 2:25 AM Result Value Ref Range INR 1.1 0.8 - 1.2 LDH-LACTATE DEHYDROGENASE Collection Time: 10/07/19 2:25 AM Result Value Ref Range Lactate Dehydrogenase 722 (H) 100 - 210 U/L MAGNESIUM Collection Time: 10/07/19 2:25 AM Result Value Ref Range Magnesium 2.0 1.6 - 2.6 mg/dL CBC AND DIFF Collection Time: 10/07/19 2:25 AM Result Value Ref Range White Blood Cells 13.6 (H) 4.5 - 11.0 K/UL RBC 2.35 (L) 4.0 - 5.0 M/UL Hemoglobin 7.2 (L) 12.0 - 15.0 GM/DL Hematocrit 21.3 (L) 36 - 45 % MCV 90.7 80 - 100 FL MCH 30.8 26 - 34 PG MCHC 34.0 32.0 - 36.0 G/DL RDW 13.2 11 - 15 % Platelet Count 237 150 - 400 K/UL MPV 6.7 (L) 7 - 11 FL Neutrophils 96 (H) 41 - 77 % Lymphocytes 2 (L) 24 - 44 % Monocytes 2 (L) 4 - 12 % Eosinophils 0 0 - 5 % Basophils 0 0 - 2 % Absolute Neutrophil Count 13.14 (H) 1.8 - 7.0 K/UL Absolute Lymph Count 0.23 (L) 1.0 - 4.8 K/UL Absolute Monocyte Count 0.20 0 - 0.80 K/UL Absolute Eosinophil Count 0.01 0 - 0.45 K/UL Absolute Basophil Count 0.02 0 - 0.20 K/UL PHOSPHORUS Collection Time: 10/07/19 2:25 AM Result Value Ref Range Phosphorus 5.9 (H) 2.0 - 4.5 MG/DL URIC ACID Collection Time: 10/07/19 2:25 AM Result Value Ref Range Uric Acid 6.0 2.0 - 7.0 MG/DL COMPREHENSIVE METABOLIC PANEL Collection Time: 10/07/19 2:25 AM Result Value Ref Range Sodium 137 137 - 147 MMOL/L Potassium 4.4 3.5 - 5.1 MMOL/L Chloride 100 98 - 110 MMOL/L Glucose 175 (H) 70 - 100 MG/DL Blood Urea Nitrogen 59 (H) 7 - 25 MG/DL Creatinine 3.78 (H) 0.4 - 1.00 MG/DL Calcium 7.9 (L) 8.5 - 10.6 MG/DL Total Protein 5.6 (L) 6.0 - 8.0 G/DL Total Bilirubin 0.3 0.3 - 1.2 MG/DL Albumin 2.8 (L) 3.5 - 5.0 G/DL Alk Phosphatase 149 (H) 25 - 110 U/L AST (SGOT) 60 (H) 7 - 40 U/L CO2 23 21 - 30 MMOL/L ALT (SGPT) 28 7 - 56 U/L Anion Gap 14 (H) 3 - 12 eGFR Non 12 (L) >60 mL/min eGFR 14 (L) >60 mL/min POC GLUCOSE Collection Time: 10/07/19 12:48 PM Result Value Ref Range Glucose, POC 175 (H) 70 - 100 MG/DL Point of Care Testing (Last 24 hours) Glucose: (!) 175 (10/07/19 0227) POC Glucose (Download): (!) 175 (10/07/19 1244) Radiology and other Diagnostics Review: CHEST SINGLE VIEW Final Result Further progression of mixed opacities in the left midlung with residual areas o f mixed opacity in the right lower lobe and partial consolidation and volume los s in the right upper lobe. Findings likely reflect progressing pneumonia superim posed on chronic interstitial lung disease. Small bilateral pleural effusions. Finalized by Hesham Dias M.D. on 10/07/2019 7:49 AM. Dictated by Keyur Hernandez on 10/07/2019 7:47 AM. IR CENTRAL VENOUS CATHETER Final Result Ultrasound and fluoroscopic guidance for left 8 [place] chest port placement, as described. I, Jonathan Shirley M.D, the attending radiologist, was present for the criti luis fernando and ruiz portions of the procedure with an advanced practice provider, reside nt, and/or fellow participating. Overlapping portions were non ruiz and I was im mediately available. I interpret the critical and ruiz portion of this procedure to have been the procedural time out and needle access. @TT Approved by George Mckinney D.O. on 10/04/2019 10:00 AM By my electronic signature, I attest that I have personally reviewed the images for this examination and formulated the interpretations and opinions expressed i n this report Finalized by Jonathan Shirley M.D. on 10/04/2019 10:30 AM. Dictated by George mckenna D.O. on 10/04/2019 9:57 AM. IR BONE MARROW BIOPSY Final Result Successful fluoroscopically guided bone marrow aspirate and bone marrow biopsy a s described. Pathologic interpretation pending. Finalized by Jonathan Shirley M.D. on 10/05/2019 9:06 AM. Dictated by Jonathan camilo M.D. on 10/05/2019 9:06 AM. NM PET SCAN WHOLEBODY (HEAD-TOES) Final Result Hypermetabolic michael, extensive extranodal (including pulmonary, hepatic, adrena l, renal, gastric, and pancreatic), and multifocal osseous involvement by lympho ma 5PS = 5 Finalized by Maximilian Osorio M.D. on 10/04/2019 5:32 AM. Dictated by Maximilian mann M.D. on 10/03/2019 5:12 PM. IR LUMBAR PUNCTURE Final Result Diagnostic lumbar puncture. I, Sourav Coon M.D., the attending interventional radiologist, performed the entire procedure, personally reviewed the images, and formulated the interpr etations and opinions expressed in this report. @TT Finalized by Sourav Coon M.D. on 10/03/2019 1:56 PM. Dictated by Sourav reed M.D. on 10/03/2019 1:56 PM. CHEST 2 VIEWS Final Result 1. Increased patchy bilateral opacities, most pronounced in the right upper and left midlung. These findings could reflect worsening acute exacerbation of unde rlying interstitial lung disease versus multifocal pneumonia. Follow-up chest ra diographs suggested. 2. Small bilateral pleural effusions. By my electronic signature, I attest that I have personally reviewed the images for this examination and formulated the interpretations and opinions expressed i n this report Finalized by Eric Brennan M.D. on 10/02/2019 2:32 PM. Dictated by Trevin Quiros M.D. on 10/02/2019 2:02 PM. IR CENTRAL VENOUS CATHETER Final Result Successful image-guided placement of tunneled hemodialysis catheter. Jonathan Pinto M.D, the attending radiologist, was present for the criti luis fernando and ruiz portions of the procedure with an advanced practice provider, reside nt, and/or fellow participating. Overlapping portions were non ruiz and I was im mediately available. I interpret the critical and ruiz portion of this procedure to have been the procedural time out and needle access. @TT Approved by Alonso Farfan D.O. on 10/01/2019 1:39 PM By my electronic signature, I attest that I have personally reviewed the images for this examination and formulated the interpretations and opinions expressed i n this report Finalized by Jonathan Shirley M.D. on 10/01/2019 1:45 PM. Dictated by Alonso Farfan D.O. on 10/01/2019 1:37 PM. IR RENAL BIOPSY Final Result Successful ultrasound guided left kidney biopsy as described. Specimen was co nfirmed adequate by the cytopathologist at time of procedure. I, Mak Lynch M.D., the attending radiologist, was present for the procedure, pe rsonally reviewed the images, and formulated the interpretations and opinions ex pressed in this report. @TT Finalized by MAK LYNCH on 09/30/2019 1:35 PM. Dictated by MAK LYNCH on 09/30/2019 1:[address] ABD/PELV WO CONTRAST Final Result 1. Abnormalities involving the liver, gallbladder, kidneys, right adrenal gland and retroperitoneum. Leading consideration is lymphoma. Erdheim-Ryan disease and IgG-4 related disease are additional considerations. 2. Mild diffuse enlargement of the kidneys with ill-defined soft tissue thickeni ng in the renal pelves and asymmetric perinephric stranding. 3. Mild nodular enlargement of the right adrenal gland with ill-defined strandin g. 4. Mild central retroperitoneal lymphadenopathy. Mild diffuse soft tissue thicke norman in the presacral space in the pelvis may represent additional lymphadenopat hy. 5. Multiple small hypodense hepatic lesions 6. Diffuse enlargement of the gallbladder with pericystic stranding. Acute michela cystitis should also be considered for this finding. 7. Abnormal low attenuation tissue in the body and tail of the pancreas with a s mall calculus towards the midline. This low-attenuation tissue most likely repre sents a dilated main pancreatic duct. Dr. Hoyt discussed these findings with Dc by telephone at 1:55 PM 09/26/2019 Finalized by Lasha Hoyt M.D. on 09/26/2019 1:57 PM. Dictated by Lasha Hoyt M.D. on 09/26/2019 1:[address] CHEST WO CONTRAST Final Result Abnormal Addendum 1 of 1 Finalized by Eric Brennan M.D. on 09/25/2019 [...] Eric Brennan M.D. on 09/25/2019 8:38 AM. Final CHEST 2 VIEWS Final Result Areas of fibrosis. Superimposed opacities may be due to atelectasis, pneumonia a nd/or scarring. CT chest is recommended for further evaluation. By my electronic signature, I attest that I have personally reviewed the images for this examination and formulated the interpretations and opinions expressed i n this report Finalized by Carmela Lane M.D. on 09/24/2019 3:10 PM. Dictated by Yakelin cutler M.D. on 09/24/2019 2:26 PM. 2D + DOPPLER ECHO Final Result US RENAL BLADDER COMPLETE Final Result 1. Symmetric, normal renal size. 2. Patent renal vessels. No evidence of hemodynamically significant renal arter y stenosis. 3. Elevated intrarenal resistivity, most compatible with a nonspecific, diffuse parenchymal disease. Finalized by Brenda Stahl M.D. on 09/18/2019 12:17 PM. Dictated by Alexis Jovel on 09/18/2019 9:16 AM. US DOPPLER ABD PELV RETROPER COMP Final Result 1. Symmetric, normal renal size. 2. Patent renal vessels. No evidence of hemodynamically significant renal arter y stenosis. 3. Elevated intrarenal resistivity, most compatible with a nonspecific, diffuse parenchymal disease. Finalized by Brenda Stahl M.D. on 09/18/2019 12:17 PM. Dictated by Alexis Jovel on 09/18/2019 9:16 AM. GENERAL RAD CHEST EXTERNAL IMAGING Final Result IR LUMBAR PUNCTURE (Results Pending) Kneji Peña DO Pager [phone] Associated attestation - Levar Coleman DO - 10/07/2019 4:54 PM CDT ATTESTATION I personally performed the ruiz portions of the E/M visit, discussed case with th e fellow and concur with fellow documentation of history, physical exam, assessm ent, and treatment plan unless otherwise noted. Staff name: Levar Coleman DO * Julian Malloy MD - 10/07/2019 9:30 AM CDT General Progress Note Name: Mary Tim Today's Date: 10/07/2019 Admission Date: 09/17/2019 LOS: 19 days Assessment/Plan: Principal Problem: Acute renal failure (ARF) (HCC) Active Problems: Hyperkalemia High anion gap metabolic acidosis UTI (urinary tract infection) Physical debility ILD (interstitial lung disease) (HCC) Anemia Abnormal CT of the chest Abnormal abdominal CT scan Elevated CA 19-9 level Diffuse large B-cell lymphoma of lymph nodes of multiple regions (HCC) Mary Tim is a 69-year-old F with PMH of HTN and cervical (C3-C7) and lumb ar (L3-L5) spinal fusions who presented to [facility] 09/16 for progressively wor sening weakness and fatigue over the past 2 months and was found to have acute r enal failure and hyperkalemia and anion gap metabolic acidosis. Work-up this adm ission, including diagnostic LP and PET CT consistent with DLBCL. #DLBCL, Stage IV, GCB sub-type CD20+ - FISH for Myc, Ki-67 pending - PET CT 10/02: shows kidney, ureters, gallbladder, uterus, gastric, osseus, panc reatic pulmonary, hepatic, and adrenal involvement of disease - Diagnostic LP 10/03, negative for malignant cells. High IC DESIGNER CUSTOM-IPI - s/p BMBx 10/03, results pending - ECOG status 1 - Renal biopsy from 09/28 shows pathology that is consistent with DLBCL PLAN > R-CHOP initiation today, pending COVID result. Patient consented. > Cytoxin, 50% reduced > Rituxan day 2 with plans for G-CSF > IT chemo with IR today > Will plan for 2 IT chemo tx's per cycle for now > Patient from [place], [place] but is willing to travel to [place] for treatment. Dr. Zhong in [place] may be able to handle OP treatment. Will plan at this point for Zarxio daily > Patient at high risk for TLS, given tumor burden. Will continue fluids 50 cc/hr. OK with nephrology > GI consulted for EUS due to liver, pancreas, and stomach involvement of lymphoma on CT. Will likely complete as outpatient > Will monitor TLS labs BID - For uric acid >12, provide 6 mg rasburicase, and >8, provide 3 mg rasburicase > PPx with acyclovir 200 mg BID > Continue allopurinol 100 mg daily #ROSHAN, likely 2/2 DLBCL Infiltration #Anion-Gap Metabolic Acidosis - likely ATN, Nephrology noted muddy brown casts and pyuria on microscopy - 7 at presentation, small improvement with IVF - Renal US unremarkable - UPr:Cr 0.9, - Renal consulted, discussed with . Plan to replace Zambrano given diste nded urinary bladder and large kidneys and renal pelvis. -pathology of renal bx shows DLBCL; see above - HD line placed - It is unknown if kidneys will regain sufficient function to not need HD. Unabl e to determine ESRD status for another 3 months. Additionally, will depend on DL BCL response. PLAN > Continue sodium bicarb tablets > Renal following, appreciate recs > hold IVFs for now, dialysis today > Inpatient dialysis schedule TTS > BMP BID #Sarcoidosis - likely stage 2 - ILD Labs largely negative except for elevated Aldolase at 9.2. - PFTs consistent with restrictive pattern. - Bronchoscopy biopsy results showed unremarkable respiratory mucosa. Negative f or granuloma or malignancy. - Lymph node biopsy results showing granuloma formationand in conjunction with CT findings isconcerning for sarcoidosis. PLAN > Pulm consulted, will f/u in clinic after discharge for further steroid management > Continue incentive spirometry as ordered and supplemental O2 as needed. She will likely need continued O2 therapy given sarcoid findings > Taper O2 as tolerated while inpatient. Was not on oxygen at home #UTI, resolved -UA shows blood and pyuria - UCx with e. coli and enterobacter.Sensitive to Rocephin - completedrocephin for 7 days09/25 #Constipation > Miralax, senokot PRN > Hold dulcolax #HTN > Hold CECE, HCTZ > Blood pressure mildly elevated.On [id number] > d/c PRN hydralazine and labetalol. May consider PRN PO clonidine if hypertensive #Chronic Back Pain > will hold [place] for now, given chemo regimen > emu oil prn #Normocytic Anemia - Status post 1 PRBC09/24.hemoglobin around 10. - Iron studies showed mixed picture of iron deficiency and anemia of chronic d isease - B12 and folate low, continue - LDH elevated. Haptoglobin normal. Peripheral smear showed normocytic anemia. Absolute lymphocytopenia. Mild monocytosis. PLAN >Transfuse if hemoglobin less than 7 #Transaminitis, mild - resolved - Elevated LFTs on admission 09/16 PLAN > Will trend LFTs #Physical debility #Impaired Dentition > PT OT eval. 10/03 recommending inpatient.Patient agreeable for rehab. SW To assist with placement > Will need to work on finding patient's top dentures, which were lost during admission following a procedure FEN: hold IVFs for now, dialysis today, regular diet, replace lytes PRN VTE PPx: HsQ Code: Full Disp: Continue admission to inpatient hematology Patient seen and discussed with Dr. Cipriano Malloy MD Internal Medicine, PGY-1 Available on Voalte Pager: [phone] Subjective Mary Tim is a 69 y.o. female. Overnight, patient experienced increased o xygen requirement up to 5L, from 3L by NC. CXR was ordered, showing likely volum e overload and her fluids were stopped. This morning, patient was seen at bedside and was resting comfortably. She denie s worsening shortness of breath and cough. Her abdominal pain is still present, but she reports it is better. She denies further back pain. She tolerated chemot herapy well yesterday and denies nausea, vomiting, and diarrhea. Medications Scheduled Meds:acyclovir (ZOVIRAX) capsule 200 mg, 200 mg, Oral, BID allopurinoL (ZYLOPRIM) tablet 100 mg, 100 mg, Oral, QDAY amitriptyline/gabapentin/emu oil(#) 4/4/10 % topical cream, , Topical, Q8H amLODIPine (NORVASC) tablet 10 mg, 10 mg, Oral, QDAY cyanocobalamin (VITAMIN B-12) tablet 1,000 mcg, 1,000 mcg, Oral, QDAY [START ON 10/08/2019] filgrastim-sndz (ZARXIO) inj syringe 300 mcg, 300 mcg, Subc utaneous, Q24H* folic acid (FOLVITE) tablet 1 mg, 1 mg, Oral, QDAY heparin (porcine) PF syringe 5,000 Units, 5,000 Units, Subcutaneous, Q8H* LORazepam (ATIVAN) tablet 0.5 mg, 0.5 mg, Oral, ONCE methotrexate PF 12 mg in sodium chloride PF 0.9% 5 mL IT syringe, 12 mg, Intrath ecal, ONCE mineral oil/hydrophilic petrolatum (AQUAPHOR, DERMAPHOR) topical ointment, , Top ical, QDAY polyethylene glycol 3350 (MIRALAX) packet 34 g, 2 packet, Oral, QDAY predniSONE (DELTASONE) tablet 100 mg, 100 mg, Oral, Q24H* senna (SENOKOT) tablet 2 tablet, 2 tablet, Oral, QHS sodium bicarbonate tablet 650 mg, 650 mg, Oral, BID vitamins, multi B, C, Zn & folate (Renal) (NEPHPLEX RX) tablet 1 tablet, 1 tablet, Oral, QDAY Continuous Infusions: sodium chloride 0.9 % infusion 50 mL/hr at 10/05/19 2154 PRN and Respiratory Meds:anticoagulant sodium citrate IP Dialysis PRN, calcium c arbonate Q6H PRN, guaiFENesin Q4H PRN, HYDROcodone/acetaminophen Q6H PRN, melato isabella QHS PRN, simethicone Q6H PRN, sodium chloride 0.9% (NS) IP Dialysis PRN, sod ium chloride 0.9% (NS) IP Dialysis PRN, sodium chloride 0.9% (NS) IP Dialysis FL N, sodium chloride 0.9% irrigation bottle PRN, vitamin A & D PRN Review of Systems: Positive for cough, shortness of breath, and abdominal pain Negative for nausea, vomiting, diarrhea, constipation, fevers, and chills Objective: Vital Signs: Last Filed Vital Signs: 24 Fernanda r Range BP: 116/51 (10/07 827) Temp: 36.7 C (98 F) (10/07 827) Pulse: 90 (10/07 827) Respirations: 18 PER MINUTE (10/07 827) SpO2: 98 % (10/07 827) BP: (90-127)/(39-63) Temp: [36.3 C (97.3 F)-36.9 C (98.5 F)] Pulse: [65-98] Respirations: [16 PER MINUTE-24 PER MINUTE] SpO2: [90 %-100 %] Vitals: 10/06/19 0632 10/07/19 0217 10/07/19 0222 Weight: 74.6 kg (164 lb 6.4 oz) 76.8 kg (169 lb 5 oz) 76.8 kg (169 lb 5 oz) Intake/Output Summary: (Last 24 hours) Intake/Output Summary (Last 24 hours) at 10/07/2019 0930 Last data filed at 10/07/2019 0709 Gross per 24 hour Intake 1153 ml Output 350 ml Net 803 ml Stool Occurrence: 0 Physical Exam Gen: No distress. Pleasant appearing 69 you F Head: Normocephalic, atraumatic. NC in place. Bottom dentures in place. Eyes: EOMI CV: normal rate and rhythm, no murmurs Pulm: Breathing is not labored, lungs CTA bilaterally. NC in place at 3 L Abd: soft, non-distended, moderately tender to palpation throughout Ext: Trace edema in LEs bilaterally Skin: No rash on exposed areas. HD cath in place R upper chest and port-a-cath i n place L upper chest Neuro: normal strength bilateral UEs and LEs Psych: normal mood and affect Lab Review 24-hour labs: Results for orders placed or performed during the hospital encounter of 09/17/19 (from the past 24 hour(s)) BASIC METABOLIC PANEL Collection Time: 10/06/19 4:21 PM Result Value Ref Range Sodium 140 137 - 147 MMOL/L Potassium 3.9 3.5 - 5.1 MMOL/L Chloride 102 98 - 110 MMOL/L CO2 23 21 - 30 MMOL/L Anion Gap 15 (H) 3 - 12 Glucose 140 (H) 70 - 100 MG/DL Blood Urea Nitrogen 43 (H) 7 - 25 MG/DL Creatinine 3.52 (H) 0.4 - 1.00 MG/DL Calcium 7.6 (L) 8.5 - 10.6 MG/DL eGFR Non 13 (L) >60 mL/min eGFR 16 (L) >60 mL/min PHOSPHORUS Collection Time: 10/06/19 4:21 PM Result Value Ref Range Phosphorus 5.3 (H) 2.0 - 4.5 MG/DL URIC ACID Collection Time: 10/06/19 4:21 PM Result Value Ref Range Uric Acid 4.6 2.0 - 7.0 MG/DL PROTIME INR (PT) Collection Time: 10/07/19 2:25 AM Result Value Ref Range INR 1.1 0.8 - 1.2 LDH-LACTATE DEHYDROGENASE Collection Time: 10/07/19 2:25 AM Result Value Ref Range Lactate Dehydrogenase 722 (H) 100 - 210 U/L MAGNESIUM Collection Time: 10/07/19 2:25 AM Result Value Ref Range Magnesium 2.0 1.6 - 2.6 mg/dL CBC AND DIFF Collection Time: 10/07/19 2:25 AM Result Value Ref Range White Blood Cells 13.6 (H) 4.5 - 11.0 K/UL RBC 2.35 (L) 4.0 - 5.0 M/UL Hemoglobin 7.2 (L) 12.0 - 15.0 GM/DL Hematocrit 21.3 (L) 36 - 45 % MCV 90.7 80 - 100 FL MCH 30.8 26 - 34 PG MCHC 34.0 32.0 - 36.0 G/DL RDW 13.2 11 - 15 % Platelet Count 237 150 - 400 K/UL MPV 6.7 (L) 7 - 11 FL Neutrophils 96 (H) 41 - 77 % Lymphocytes 2 (L) 24 - 44 % Monocytes 2 (L) 4 - 12 % Eosinophils 0 0 - 5 % Basophils 0 0 - 2 % Absolute Neutrophil Count 13.14 (H) 1.8 - 7.0 K/UL Absolute Lymph Count 0.23 (L) 1.0 - 4.8 K/UL Absolute Monocyte Count 0.20 0 - 0.80 K/UL Absolute Eosinophil Count 0.01 0 - 0.45 K/UL Absolute Basophil Count 0.02 0 - 0.20 K/UL PHOSPHORUS Collection Time: 10/07/19 2:25 AM Result Value Ref Range Phosphorus 5.9 (H) 2.0 - 4.5 MG/DL URIC ACID Collection Time: 10/07/19 2:25 AM Result Value Ref Range Uric Acid 6.0 2.0 - 7.0 MG/DL COMPREHENSIVE METABOLIC PANEL Collection Time: 10/07/19 2:25 AM Result Value Ref Range Sodium 137 137 - 147 MMOL/L Potassium 4.4 3.5 - 5.1 MMOL/L Chloride 100 98 - 110 MMOL/L Glucose 175 (H) 70 - 100 MG/DL Blood Urea Nitrogen 59 (H) 7 - 25 MG/DL Creatinine 3.78 (H) 0.4 - 1.00 MG/DL Calcium 7.9 (L) 8.5 - 10.6 MG/DL Total Protein 5.6 (L) 6.0 - 8.0 G/DL Total Bilirubin 0.3 0.3 - 1.2 MG/DL Albumin 2.8 (L) 3.5 - 5.0 G/DL Alk Phosphatase 149 (H) 25 - 110 U/L AST (SGOT) 60 (H) 7 - 40 U/L CO2 23 21 - 30 MMOL/L ALT (SGPT) 28 7 - 56 U/L Anion Gap 14 (H) 3 - 12 eGFR Non 12 (L) >60 mL/min eGFR 14 (L) >60 mL/min Point of Care Testing (Last 24 hours) Glucose: (!) 175 (10/07/19 0225) Radiology and other Diagnostics Review: Pertinent radiology reviewed. Julian Malloy MD Pager [phone] Associated attestation - Karen Cota MD - 10/07/2019 5:52 PM CDT ATTESTATION I personally performed the ruiz portions of the E/M visit, discussed case with re sident and concur with resident documentation of history, physical exam, assessm ent, and treatment plan unless otherwise noted. Karen Cota [phone] * Trevin Woods MD - 10/07/2019 2:07 AM CDT Was called by nursing due to patient having increasing oxygen req Uirements. I e xamined the patient and found her to have crackles on lung examination. I suspec t her increasing oxygen requirements are related to fluid overload. Portable kavon st xray ordered. Fluids held by nurse for now, will plan to reassess in a few ho urs and resume if stable. * Lisbeth Gu RN - 10/06/2019 7:40 PM CDT Shift: NEWS Score:2(HR, Oxygen) 5(Hr, Oxygen, sat) 6(Oxygen, sat, BP) Pain:c/o back pain-relieved with emu combo creme & positioning Nutrition: appetite good. Ate most of meals & drank 2 renal novasource supplement drinks. GI/:LBM 10/05, Voiding small amts Activity: up to chair x 3 hours this am. Ambulated to bathroom x1. Family:talked with family on phone Last Shower:bathed to day in chair. New Events or Follow-up:tolerating rituxan infusion so far. * Trina Blank PHARMD - 10/06/2019 3:37 PM CDT Chemotherapy Education Provided patient with written and verbal education regarding R-CHOP (rituximab, cyclophosphamide, doxorubicin, vincristine, prednisone) chemotherapy. Discussed schedule of chemotherapy. Patient will receive treatment as follows: rituximab IV infusion on Day 0/1 cyclophosphamide, vincristine, doxorubicin on Day 1 prednisone by mouth daily x5 days growth factor at least 24 hours after chemotherapy administration Reviewed side effects of chemotherapy, including (but not limited to): Low blood counts (explained associated risk for infection, bleeding, bruising , fatigue) Nausea and vomiting (explained purpose of scheduled antiemetics before chemot herapy and the use of PRNs in the event of breakthrough CINV; encouraged patient to maintain adequate water/nutrition intake) Changes in bowel habits / poor appetite / mouth sores & mucositis / taste changes Hemorrhagic cystitis related to cyclophosphamide (rare at the dose administer ed but patient advised to maintain hydration & be on the look-out for blood in the urine) Anthracycline-induced cardiotoxicity (explained that cardiac function is marti tored closely throughout the treatment course) Neuropathies Alopecia Changes in lab tests (explained that the medical team will be monitoring lab values closely) While the incidence of infusion hypersensitivity reactions secondary to the chem otherapy is rare, the incidence is higher with the rituximab therapy. Cautioned patient about this potential and advised patient to report immediately any swell ing, burning, pain, or redness at the infusion site, any trouble breathing, or a ny chest pain. Patient voiced understanding about the provided information. All questions/fabricio rns addressed at this time. Medication handout(s) provided. Trina Blank PHARMD * Coco Alexander, - 10/06/2019 12:36 PM CDT RT Adult Assessment Note NAME:Mary Tim :1950 AGE: 69 y.o. ADMISSION DATE: 09/17/2019 DAYS ADMITTED: LOS: 18 days RT Treatment Plan: Protocol Plan: Procedures PEP Therapy: Place a nursing order for "IS Q1h While Awake" for any of Lung Expa nsion indicators Oxygen/Humidity: O2 to keep SpO2 > 92%, if not on any RT modality, D/C protocol if greater than 24 hours on room air SpO2: Continuous (Document SpO2 result Qshift) Additional Comments: Impressions of the patient: alert, no signs of distress. Intervention(s)/outcome(s): rt eval Patient education that was completed: none Recommendations to the care team: none Vital Signs: Pulse: 85 RR: 20 PER MINUTE SpO2: 94 % O2 Device: Cannula Liter Flow: 3 Lpm O2%: Breath Sounds: Clear (Implies normal);Decreased Respiratory Effort: Non-Labored * Lisbeth Gu, RN - 10/06/2019 12:33 PM CDT First Dose Rituxan Documentation Rituxan initiated per orders and refer to MAR for all rate changes. Max rate tolerated (ml/hr): 50 ml /hr Infusion/adverse reactions (If yes, please specify): no adverse reactions so far . Infusion approx 1/2 complete. If infusion reaction present, Allergy List updated (yes/no): * Luis Carlos Velez DO - 10/06/2019 8:47 AM CDT General Progress Note Name: Mary Tim Today's Date: 10/06/2019 Admission Date: 09/17/2019 LOS: 18 days Assessment/Plan: Principal Problem: Acute renal failure (ARF) (HCC) Active Problems: Hyperkalemia High anion gap metabolic acidosis UTI (urinary tract infection) Physical debility ILD (interstitial lung disease) (HCC) Anemia Abnormal CT of the chest Abnormal abdominal CT scan Elevated CA 19-9 level Diffuse large B-cell lymphoma of lymph nodes of multiple regions (HCC) Mary Tim is a 69-year-old F with PMH of HTN and cervical (C3-C7) and lumb ar (L3-L5) spinal fusions who presented to [facility] 09/16 for progressively wor sening weakness and fatigue over the past 2 months and was found to have acute r enal failure and hyperkalemia and anion gap metabolic acidosis. Work-up this adm ission, including diagnostic LP and PET CT consistent with DLBCL. #DLBCL, Stage IV, GCB sub-type CD20+ - FISH for Myc, Ki-67 pending - PET CT 10/02: shows kidney, ureters, gallbladder, uterus, gastric, osseus, panc reatic pulmonary, hepatic, and adrenal involvement of disease - Diagnostic LP 10/03, negative for malignant cells. High IC DESIGNER CUSTOM-IPI - s/p BMBx 10/03, results pending - ECOG status 1 - Renal biopsy from 09/28 shows pathology that is consistent with DLBCL PLAN > R-CHOP initiation today, pending COVID result. Patient consented. > Cytoxin, 50% reduced > Rituxan day 2 with plans for G-CSF > Will start Rituxan today, flat dose > Plan for IT chemo (preventative) tomorrow with IR, orders placed > Will plan for 2 IT chemo tx's per cycle for now > Patient from [place], [place] but is willing to travel to [place] for treatment. Dr. Zhong in [place] may be able to handle OP treatment. Will plan at this point for Zarxio daily > Patient at high risk for TLS, given tumor burden. Will continue fluids 50 cc/hr. OK with nephrology > GI consulted for EUS due to liver, pancreas, and stomach involvement of lymphoma on CT. Will likely complete as outpatient > Will monitor TLS labs BID - For uric acid >12, provide 6 mg rasburicase, and >8, provide 3 mg rasburicase > PPx with acyclovir 200 mg BID > Continue allopurinol 100 mg daily #ROSHAN, likely 2/2 DLBCL Infiltration #Anion-Gap Metabolic Acidosis - likely ATN, Nephrology noted muddy brown casts and pyuria on microscopy - 7 at presentation, small improvement with IVF - Renal US unremarkable - UPr:Cr 0.9, - Renal consulted, discussed with . Plan to replace Zambrano given diste nded urinary bladder and large kidneys and renal pelvis. -pathology of renal bx shows DLBCL; see above - HD line placed - It is unknown if kidneys will regain sufficient function to not need HD. Unabl e to determine ESRD status for another 3 months. Additionally, will depend on DL BCL response. PLAN > Continue sodium bicarb tablets > Renal following, appreciate recs > IVFs 50 cc/hr > Inpatient dialysis schedule TTS > BMP BID #Sarcoidosis - likely stage 2 - ILD Labs largely negative except for elevated Aldolase at 9.2. - PFTs consistent with restrictive pattern. - Bronchoscopy biopsy results showed unremarkable respiratory mucosa. Negative f or granuloma or malignancy. - Lymph node biopsy results showing granuloma formationand in conjunction with CT findings isconcerning for sarcoidosis. PLAN > Pulm consulted, will f/u in clinic after discharge for further steroid management > Continue incentive spirometry as ordered and supplemental O2 as needed. She will likely need continued O2 therapy given sarcoid findings #UTI, resolved -UA shows blood and pyuria - UCx with e. coli and enterobacter.Sensitive to Rocephin - completedrocephin for 7 days09/25 #Constipation > Miralax, senokot PRN > Hold dulcolax #HTN > Hold CECE, HCTZ > Blood pressure mildly elevated.On [id number] > d/c PRN hydralazine and labetalol. May consider PRN PO clonidine if hypertensive #Chronic Back Pain > contNorco PRN > emu oil prn #Normocytic Anemia - Status post 1 PRBC09/24.hemoglobin around 10. - Iron studies showed mixed picture of iron deficiency and anemia of chronic d isease - B12 and folate low, continue - LDH elevated. Haptoglobin normal. Peripheral smear showed normocytic anemia. Absolute lymphocytopenia. Mild monocytosis. PLAN >Transfuse if hemoglobin less than 7 #Transaminitis, mild - resolved - Elevated LFTs on admission 09/16 PLAN > Will trend LFTs #Physical debility #Impaired Dentition > PT OT eval. 10/03 recommending inpatient.Patient agreeable for rehab. SW To assist with placement > Will need to work on finding patient's top dentures, which were lost during admission following a procedure FEN: IVF at 50 cc/h, regular diet, replace lytes PRN VTE PPx: HsQ Code: Full Disp: Continue admission to inpatient hematology Patient seen and discussed with Dr. Ramírez Malloy MD Internal Medicine, PGY-1 Available on Voalte Pager: [phone] ATTESTATION I have personally performed a history and physical exam on the patient. I have d iscussed the case with the resident and concur with the resident documentation o f history, physical exam, assessment, and treatment plan unless otherwise noted. Staff name: Luis Carlos Velez DO Team pager: [phone] Date:10/06/2019 Subjective Mary Tim is a 69 y.o. female. No acute events overnight. Patient was res ting comfortably in bed. She continues to have shortness of breath and cough, wh ich has not changed since admission. She reports significant improvement in her abdominal pain and back pain this morning. She states she has not needed a pain pill since this last night. She otherwise denies nausea, vomiting, diarrhea, and constipation. Medications Scheduled Meds:acyclovir (ZOVIRAX) capsule 200 mg, 200 mg, Oral, BID allopurinoL (ZYLOPRIM) tablet 100 mg, 100 mg, Oral, QDAY amitriptyline/gabapentin/emu oil(#) 4/4/10 % topical cream, , Topical, Q8H amLODIPine (NORVASC) tablet 10 mg, 10 mg, Oral, QDAY cyanocobalamin (VITAMIN B-12) tablet 1,000 mcg, 1,000 mcg, Oral, QDAY folic acid (FOLVITE) tablet 1 mg, 1 mg, Oral, QDAY heparin (porcine) PF syringe 5,000 Units, 5,000 Units, Subcutaneous, Q8H* mineral oil/hydrophilic petrolatum (AQUAPHOR, DERMAPHOR) topical ointment, , Top ical, QDAY polyethylene glycol 3350 (MIRALAX) packet 34 g, 2 packet, Oral, QDAY predniSONE (DELTASONE) tablet 100 mg, 100 mg, Oral, Q24H* senna (SENOKOT) tablet 2 tablet, 2 tablet, Oral, QHS sodium bicarbonate tablet 650 mg, 650 mg, Oral, BID vitamins, multi B, C, Zn & folate (Renal) (NEPHPLEX RX) tablet 1 tablet, 1 tablet, Oral, QDAY Continuous Infusions: sodium chloride 0.9 % infusion 50 mL/hr at 10/05/19 2154 PRN and Respiratory Meds:bisacodyL QDAY PRN, calcium carbonate Q6H PRN, guaiFENe sin Q4H PRN, hydrALAZINE Q6H PRN, HYDROcodone/acetaminophen Q6H PRN, labetalol ( NORMODYNE; TRANDATE) injection Q6H PRN, melatonin QHS PRN, simethicone Q6H PRN, vitamin A & D PRN Review of Systems: Positive for cough, shortness of breath, back pain, and abdominal pain. Negative for nausea, vomiting, constipation, fever, and chills Objective: Vital Signs: Last Filed Vital Signs: 24 Fernanda r Range BP: 121/57 (10/06 631) Temp: 36.4 C (97.5 F) (10/06 631) Pulse: 95 (10/06 631) Respirations: 18 PER MINUTE (10/06 631) SpO2: 96 % (10/06 631) SpO2 Pulse: 98 (10/04 1100) BP: (116-138)/(51-65) Temp: [36.3 C (97.3 F)-37.1 C (98.8 F)] Pulse: [53-100] Respirations: [18 PER MINUTE-36 PER MINUTE] SpO2: [92 %-98 %] Intensity Pain Scale (Self Report): 7 (10/05/19 2145) Vitals: 10/05/19 0643 10/05/19 1100 10/06/19 0632 Weight: 71.5 kg (157 lb 10.1 oz) 71.2 kg (156 lb 15.5 oz) 74.6 kg (164 lb 6.4 oz ) Intake/Output Summary: (Last 24 hours) Intake/Output Summary (Last 24 hours) at 10/06/2019 0847 Last data filed at 10/06/2019 0750 Gross per 24 hour Intake 736 ml Output 652 ml Net 84 ml Stool Occurrence: 1 Physical Exam Gen: No distress. Alert. Pleasant appearing 69 yo female Head: Normocephalic and atraumatic Eyes: EOMI CV: normal rate and rhythm, no murmurs Pulm: Breathing is not labored, lungs CTA bilaterally. NC in place at 3 L Abd: soft, non-distended, moderately tender to palpation throughout Ext: Trace edema in LEs bilaterally Skin: No rash on exposed areas. HD cath in place R upper chest and port-a-cath i n place L upper chest Neuro: normal strength bilateral UEs and LEs Psych: normal mood and affect Lab Review 24-hour labs: Results for orders placed or performed during the hospital encounter of 09/17/19 (from the past 24 hour(s)) COVID-19 (SARS-COV-2) PCR Collection Time: 10/05/19 12:17 PM Result Value Ref Range COVID-19 (SARS-CoV-2) PCR Source NASOPHARYNGEAL SWAB COVID-19 (SARS-CoV-2) PCR NOT DETECTED DN-NOT DETECTED URIC ACID Collection Time: 10/05/19 6:16 PM Result Value Ref Range Uric Acid 1.9 (L) 2.0 - 7.0 MG/DL PROTIME INR (PT) Collection Time: 10/06/19 4:15 AM Result Value Ref Range INR 1.3 (H) 0.8 - 1.2 LDH-LACTATE DEHYDROGENASE Collection Time: 10/06/19 4:15 AM Result Value Ref Range Lactate Dehydrogenase 514 (H) 100 - 210 U/L MAGNESIUM Collection Time: 10/06/19 4:15 AM Result Value Ref Range Magnesium 2.0 1.6 - 2.6 mg/dL CBC AND DIFF Collection Time: 10/06/19 4:15 AM Result Value Ref Range White Blood Cells 10.2 4.5 - 11.0 K/UL RBC 2.43 (L) 4.0 - 5.0 M/UL Hemoglobin 7.4 (L) 12.0 - 15.0 GM/DL Hematocrit 22.2 (L) 36 - 45 % MCV 91.2 80 - 100 FL MCH 30.4 26 - 34 PG MCHC 33.4 32.0 - 36.0 G/DL RDW 13.4 11 - 15 % Platelet Count 217 150 - 400 K/UL MPV 6.2 (L) 7 - 11 FL Neutrophils 90 (H) 41 - 77 % Lymphocytes 5 (L) 24 - 44 % Monocytes 5 4 - 12 % Eosinophils 0 0 - 5 % Basophils 0 0 - 2 % Absolute Neutrophil Count 9.28 (H) 1.8 - 7.0 K/UL Absolute Lymph Count 0.48 (L) 1.0 - 4.8 K/UL Absolute Monocyte Count 0.46 0 - 0.80 K/UL Absolute Eosinophil Count 0.00 0 - 0.45 K/UL Absolute Basophil Count 0.02 0 - 0.20 K/UL BASIC METABOLIC PANEL Collection Time: 10/06/19 4:15 AM Result Value Ref Range Sodium 140 137 - 147 MMOL/L Potassium 4.3 3.5 - 5.1 MMOL/L Chloride 101 98 - 110 MMOL/L CO2 24 21 - 30 MMOL/L Anion Gap 15 (H) 3 - 12 Glucose 132 (H) 70 - 100 MG/DL Blood Urea Nitrogen 28 (H) 7 - 25 MG/DL Creatinine 2.90 (H) 0.4 - 1.00 MG/DL Calcium 7.8 (L) 8.5 - 10.6 MG/DL eGFR Non 16 (L) >60 mL/min eGFR 19 (L) >60 mL/min PHOSPHORUS Collection Time: 10/06/19 4:15 AM Result Value Ref Range Phosphorus 4.6 (H) 2.0 - 4.5 MG/DL LIVER FUNCTION PANEL Collection Time: 10/06/19 4:15 AM Result Value Ref Range Total Bilirubin 0.4 0.3 - 1.2 MG/DL Bilirubin, Direct 0.1 <0.4 MG/DL Albumin 2.7 (L) 3.5 - 5.0 G/DL Alk Phosphatase 155 (H) 25 - 110 U/L AST (SGOT) 39 7 - 40 U/L ALT (SGPT) 21 7 - 56 U/L Total Protein 5.6 (L) 6.0 - 8.0 G/DL Point of Care Testing (Last 24 hours) Glucose: (!) 132 (10/06/19 5038) Radiology and other Diagnostics Review: Pertinent radiology reviewed. Julian Malloy MD Pager [phone] * Lisbeth Gu, ROLAND - 10/05/2019 4:38 PM CDT CHEMO NOTE Verified chemo consent signed and in chart. Verified initiate chemo order in O2 Blood return positive via: Port (Single and Double) Left, Yes BSA and dose double checked (agree with orders as written) with: yes Gilles Quinn RN Labs/applicable tests checked: CBC and Comprehensive Metabolic Panel (CMP) Echo 65% Chemo regime: Drug/cycle/day C1D1 DOXOrubicin (ADRIAMYCIN) injection 89 mg : Ordered Dose 50 mg/m2 1.78 m2 (Treatment Plan Recorded) : Admin Dose 89 mg : Intravenous : ONCE vinCRIStine (ONCOVIN) 2 mg in sodium chloride 0.9% (NS) 50 mL IVPB : Dose 2 mg : 300 mL/hr : Intravenous : ONCE cyclophosphamide (CYTOXAN) 680 mg in sodium chloride 0.9% (NS) 284 mL IVPB : Ordered Dose 375 mg/m2 1.78 m2 (Treatment Plan Recorded) : Admin Dose 680 mg : 568 mL/hr : Intravenous : ONCE Rate verified and armband double checkwith second RN: yes Patient education offered and stated understanding. Denies questions at this sri e. * Levar Coleman DO - 10/05/2019 2:31 PM CDT Renal Progress Note Mary Tim Admission Date: 09/17/2019 Assessment and Plan Principal Problem: Acute renal failure (ARF) (HCC) Active Problems: Hyperkalemia High anion gap metabolic acidosis UTI (urinary tract infection) Physical debility ILD (interstitial lung disease) (HCC) Anemia Abnormal CT of the chest Abnormal abdominal CT scan Elevated CA 19-9 level Diffuse large B-cell lymphoma of lymph nodes of multiple regions (HCC) Mary Tim is a 69 y.o. female ROSHAN - Initially though to be prerenal azotemia and had been on HCTZ and CECE. She had some hydronephrosis on US that was not felt signficant. - Creatinine improved from a peak of 7.32 to a ashley of 5.8 before now worsening again. - She has 0.9 grams protineuria, had 2+ blood on UA 09/17 and 10-20 WBC. UC from grew E coli and Enterobacter. Urine sediment exam had been consistent with UT I. - She has negative MPO/PR3 and hepatitis testing. - She had a CT which showed enlarged kidneys with infiltrative process - Kidney function has not improved - biopsy has shown infiltratation of her kidneys by DLBCL and she is to start emotherpathy today. - I saw her on dialysis and she was stable. ILD Anemia -had required a transfusion 09/24 Metabolic acidosis - improved Hyperkalemia - improved Recommendations: - Evaluated on dialysis and stable - Discussed with oncology to use less than usual fluids used for chemo as she thompson s been oliguric - Avoid nephrotoxins as able - Will evaluate for dialysis needs daily. - Please provide nutritional supplements as without her dentures she has been un able to chew. Levar Coleman DO Pager [phone] Subjective HPI: Mary Tim is a 69 y.o. female was evaluated on dialysis and was stabl e. She had normal blood pressure. She was on oxygen but denied dyspnea. She was anxious about moving rooms again today as she has been moved several tiems and o n one move her dentures were lost. Medications MEDSacyclovir (ZOVIRAX) tab/cap, 200 mg, Oral, BID [START ON 10/06/2019] allopurinoL, 100 mg, Oral, QDAY amitriptyline/gabapentin/emu oil(#), , Topical, Q8H amLODIPine, 10 mg, Oral, QDAY cyanocobalamin, 1,000 mcg, Oral, QDAY cyclophosphamide (CYTOXAN) IVPB, 375 mg/m2 (Treatment Plan Recorded), Intravenou s, ONCE DOXOrubicin, 50 mg/m2 (Treatment Plan Recorded), Intravenous, ONCE folic acid, 1 mg, Oral, QDAY heparin (porcine), 5,000 Units, Subcutaneous, Q8H* mineral oil/hydrophilic petrolatum, , Topical, QDAY polyethylene glycol 3350, 2 packet, Oral, QDAY predniSONE, 100 mg, Oral, Q24H* senna, 2 tablet, Oral, QHS sodium bicarbonate, 650 mg, Oral, BID vinCRIStine (ONCOVIN) IVPB, 2 mg, Intravenous, ONCE vitamins, multi B, C, Zn & folate (Renal), 1 tablet, Oral, QDAY IV MEDS sodium chloride 0.9 % infusion 50 mL/hr at 10/05/19 1426 Prn bisacodyL QDAY PRN, calcium carbonate Q6H PRN 1,000 mg at 09/19/19 2327, g uaiFENesin Q4H PRN 100 mg at 10/05/19 1212, hydrALAZINE Q6H PRN Stopped at 09/25, HYDROcodone/acetaminophen Q6H PRN 1 tablet at 10/05/19 0915, labetalol (NORMODYNE; TRANDATE) injection Q6H PRN 10 mg at 09/30/19 1251, melatonin QHS P RN 5 mg at 10/03/192125, simethicone Q6H PRN 80 mg at 10/04/192125, vitamin A & D PRN Physical Exam Vital Signs: Last Filed In 24 Hours Vital Signs: 24 Hour Range BP: 122/56 (10/04 1317) Temp: 36.8 C (98.3 F) (10/04 131) Pulse: 94 (10/04 131) Respirations: 22 PER MINUTE (10/04 131) SpO2: 93 % (10/04 1317) SpO2 Pulse: 98 (10/04 1100) BP: (110-143)/(48-63) Temp: [36.5 C (97.7 F)-37.1 C (98.8 F)] Pulse: [85-97] Respirations: [18 PER MINUTE-36 PER MINUTE] SpO2: [92 %-98 %] Intensity Pain Scale (Self Report): 10 (10/05/19 0915) Vitals: 10/03/19 1100 10/05/19 0643 10/05/191099 Weight: 69.9 kg (154 lb 1.6 oz) 71.5 kg (157 lb 10.1 oz) 71.2 kg (156 lb 15.5 oz ) Constitutional: Appears well-developed and well-nourished. No distress. Pleasant . Head: Normocephalic and atraumatic. Mouth/Throat: No oropharyngeal exudate. Eyes: No scleral icterus or injection. Neck: No JVD present. No tracheal deviation present. Cardiovascular: Normal rate, regular rhythm, normal heart sounds and intact dist al pulses. No murmur. Pulmonary/Chest: Effort normal. No wheezes and no rales. Abdominal: Soft. Bowel sounds are normal. No distension. There is no tenderness or rebound. Musculoskeletal: No edema. No cyanosis or clubbing. Neurological: Alert. Conversant. Skin: Skin is warm and dry. No rash noted. Labs Recent Labs 10/03/19 1036 10/04/19 0654 10/05/19 0430 NA 138 142 140 K 3.0* 3.4* 3.5 CL 97* 100 99 CO2 29 28 26 GAP 12 14* 15* BUN 16 37* 49* CR 1.99* 4.09* 5.33* GLU 82 87 97 CA 8.6 8.6 8.5 MG 1.8 2.0 2.1 PO4 1.7* 4.3 4.6* Recent Labs 10/03/19 1036 10/04/19 0654 10/05/19 0430 WBC 9.0 8.5 8.5 HGB 8.5* 7.8* 7.8* HCT 24.8* 23.0* 22.4* PLTCT 248 244 238 INR 1.3* 1.4* 1.4* Estimated Creatinine Clearance: 9.6 mL/min (A) (based on SCr of 5.33 mg/dL (H)). Vitals: 10/03/19 1100 10/05/19 0643 10/05/191099 Weight: 69.9 kg (154 lb 1.6 oz) 71.5 kg (157 lb 10.1 oz) 71.2 kg (156 lb 15.5 oz ) No results for input(s): PHART, PO2ART in the last 72 hours. Invalid input(s): PC02A Levar Coleman DO Pager [phone] * Lisbeth Gu RN - 10/05/2019 1:54 PM CDT ..Patient arrived to room # 4206 via bed accompanied by transport. Patient trans ferred to the bed without assistance. Bedside safety checks completed. Initial p atient assessment completed. Refer to flowsheet for details. Admission skin assessment completed with: ROLAND Campoverde Pressure injury present on arrival?: Yes 1. Head/Face/Neck: No 2. Trunk/Back: No 3. Upper Extremities: No 4. Lower Extremities: No 5. Pelvic/Coccyx: Yes, Right & left small buttock stage 2 pressure ulcers 6. Assessed for device associated injury? Yes 7. Malnutrition Screening Tool (Nursing Nutrition Assessment) Completed? No See Doc Flowsheet for additional wound details. INTERVENTIONS: * Lisbeth Gu RN - 10/05/2019 1:11 PM CDT Pt arrived to room 4206 from unit 66. Assessment unchanged from am documented a ssessment. * Luis Carlos Velez DO - 10/05/2019 11:20 AM CDT General Progress Note Name: Mary Tim Today's Date: 10/05/2019 Admission Date: 09/17/2019 LOS: 17 days Assessment/Plan: Principal Problem: Acute renal failure (ARF) (HCC) Active Problems: Hyperkalemia High anion gap metabolic acidosis UTI (urinary tract infection) Physical debility ILD (interstitial lung disease) (HCC) Anemia Abnormal CT of the chest Abnormal abdominal CT scan Elevated CA 19-9 level Diffuse large B-cell lymphoma of lymph nodes of multiple regions (HCC) Mary Tim is a 69-year-old F with PMH of HTN and cervical (C3-C7) and lumb ar (L3-L5) spinal fusions who presented to [facility] 09/16 for progressively wor sening weakness and fatigue over the past 2 months and was found to have acute r enal failure and hyperkalemia and anion gap metabolic acidosis. Work-up this adm ission, including diagnostic LP and PET CT consistent with DLBCL. #DLBCL, Stage IV, GCB sub-type CD20+ - FISH for Myc, Ki-67 pending - PET CT 10/02: shows kidney, ureters, gallbladder, uterus, gastric, osseus, panc reatic pulmonary, hepatic, and adrenal involvement of disease - Diagnostic LP 10/03 results pending. High IC [employer]-IPI - s/p BMBx 10/03, results pending - ECOG status 1 - Renal biopsy from 09/28 shows pathology that is consistent with DLBCL PLAN > R-CHOP initiation today, pending COVID result. Patient consented. > Cytoxin, 50% reduced > Rituxan day 2 with plans for G-CSF > Patient at high risk for TLS, given tumor burden. Will start fluids 50 cc/hr. OK with nephrology > GI consulted for EUS due to liver, pancreas, and stomach involvement on CT. Will likely complete as outpatient > Will monitor TLS labs BID - For uric acid >12, provide 6 mg rasburicase, and >8, provide 3 mg rasburicase > PPx with acyclovir 200 mg BID > Allopurinol 300 mg once today #ROSHAN, likely 2/2 DLBCL Infiltration #Anion-Gap Metabolic Acidosis - likely ATN, Nephrology noted muddy brown casts and pyuria on microscopy - 7 at presentation, small improvement with IVF - Renal US unremarkable - UPr:Cr 0.9, - Renal consulted, discussed with . Plan to replace Zambrano given diste nded urinary bladder and large kidneys and renal pelvis. -pathology of renal bx shows DLBCL; see above - HD line placed - It is unknown if kidneys will regain sufficient function to not need HD. Unabl e to determine ESRD status for another 3 months. Additionally, will depend on DL BCL response. PLAN > Continue sodium bicarb tablets > Renal following, appreciate recs > IVFs 50 cc/hr > Inpatient dialysis schedule TTS > BMP BID #Sarcoidosis - likely stage 2 - ILD Labs largely negative except for elevated Aldolase at 9.2. - PFTs consistent with restrictive pattern. - Bronchoscopy biopsy results showed unremarkable respiratory mucosa. Negative f or granuloma or malignancy. - Lymph node biopsy results showing granuloma formationand in conjunction with CT findings isconcerning for sarcoidosis. PLAN > Pulm consulted, will f/u in clinic after discharge for further steroid management > Continue incentive spirometry as ordered and supplemental O2 as needed. She will likely need continued O2 therapy given sarcoid findings #UTI, resolved -UA shows blood and pyuria - UCx with e. coli and enterobacter.Sensitive to Rocephin - completedrocephin for 7 days09/25 #Constipation > Miralax, senokot, suppository #HTN > Hold CECE, HCTZ > Blood pressure mildly elevated.On [id number] > BP control, less than 140/90. Labetalol prn, hydralazine prn #Chronic Back Pain > contNorco > emu oil prn #Normocytic Anemia - Status post 1 PRBC09/24.hemoglobin around 10. - Iron studies showed mixed picture of iron deficiency and anemia of chronic d isease - B12 and folate low, continue - LDH elevated. Haptoglobin normal. Peripheral smear showed normocytic anemia. Absolute lymphocytopenia. Mild monocytosis. PLAN >Transfuse if hemoglobin less than 7 #Physical debility > PT OT eval.recommending inpatient.Patient agreeable for rehab. SW To assist with placement FEN: IVF at 50 cc/h, regular diet, replace lytes PRN VTE PPx: HsQ Code: Full Disp: Admit to inpatient hematology Patient seen and discussed with Dr. Ramírez Malloy MD Internal Medicine, PGY-1 Available on Voalte Pager: [phone] ATTESTATION I have personally performed a history and physical exam on the patient. I have d iscussed the case with the resident and concur with the resident documentation o f history, physical exam, assessment, and treatment plan unless otherwise noted. DLBCL, stage IV with extensive disease. Needing to start CHOP today, planning ri tuxan tomorrow. Reduced cytoxan renally. Continue allopurinol, s/p rasburicase, monitor TLS labs. Staff name: Luis Carlos Velez DO Team pager: [phone] Date:10/05/2019 Subjective Mary Tim is a 69 y.o. female. Patient was seen in dialysis this morning. Patient complains this morning of shortness of breath, which has been present since admission. She also complains of diffuse abdominal pain, which also has b een present since admission. She feels this pain is slightly worse today. She also has chronic lower back pain, which she says has not changed since admission . Patient was resting comfortably in the dialysis suite with 2.5L by NC in plac e. She otherwise denies nausea, vomiting, headache, visual changes, congestion. She also has a cough this morning. Medications Scheduled Meds:acyclovir (ZOVIRAX) capsule 200 mg, 200 mg, Oral, BID [START ON 10/06/2019] allopurinoL (ZYLOPRIM) tablet 100 mg, 100 mg, Oral, QDAY allopurinoL (ZYLOPRIM) tablet 300 mg, 300 mg, Oral, ONCE amitriptyline/gabapentin/emu oil(#) 4/4/10 % topical cream, , Topical, Q8H amLODIPine (NORVASC) tablet 10 mg, 10 mg, Oral, QDAY cyanocobalamin (VITAMIN B-12) tablet 1,000 mcg, 1,000 mcg, Oral, QDAY folic acid (FOLVITE) tablet 1 mg, 1 mg, Oral, QDAY heparin (porcine) PF syringe 5,000 Units, 5,000 Units, Subcutaneous, Q8H* mineral oil/hydrophilic petrolatum (AQUAPHOR, DERMAPHOR) topical ointment, , Top ical, QDAY polyethylene glycol 3350 (MIRALAX) packet 34 g, 2 packet, Oral, QDAY senna (SENOKOT) tablet 2 tablet, 2 tablet, Oral, QHS sodium bicarbonate tablet 650 mg, 650 mg, Oral, BID vitamins, multi B, C, Zn & folate (Renal) (NEPHPLEX RX) tablet 1 tablet, 1 tablet, Oral, QDAY Continuous Infusions: sodium chloride 0.9 % infusion PRN and Respiratory Meds:bisacodyL QDAY PRN, calcium carbonate Q6H PRN, guaiFENe sin Q4H PRN, hydrALAZINE Q6H PRN, HYDROcodone/acetaminophen Q6H PRN, labetalol ( NORMODYNE; TRANDATE) injection Q6H PRN, melatonin QHS PRN, simethicone Q6H PRN, sodium chloride 0.9% (NS) IP Dialysis PRN, sodium chloride 0.9% (NS) IP Dialysis PRN, vitamin A & D PRN Review of Systems: Positive for cough, neck pain, back pain, abdominal pain, shortness of breath. Negative for nausea, vomiting, constipation, dysuria Objective: Vital Signs: Last Filed Vital Signs: 24 Fernanda r Range BP: 138/58 (10/04 1030) Temp: 36.8 C (98.3 F) (10/04 0643) Pulse: 90 (10/04 1030) Respirations: 36 PER MINUTE (10/04 1030) SpO2: 96 % (10/04 1030) SpO2 Pulse: 90 (10/04 1030) BP: (110-143)/(48-63) Temp: [36.5 C (97.7 F)-36.8 C (98.3 F)] Pulse: [85-94] Respirations: [18 PER MINUTE-36 PER MINUTE] SpO2: [93 %-98 %] Intensity Pain Scale (Self Report): 10 (10/05/19 0915) Vitals: 10/03/19 0750 10/03/19 1100 10/05/19 0643 Weight: 72.9 kg (160 lb 11.5 oz) 69.9 kg (154 lb 1.6 oz) 71.5 kg (157 lb 10.1 oz ) Intake/Output Summary: (Last 24 hours) Intake/Output Summary (Last 24 hours) at 10/05/2019 1120 Last data filed at 10/05/2019 0654 Gross per 24 hour Intake 440 ml Output 100 ml Net 340 ml Stool Occurrence: 1 Physical Exam Gen: No distress. Head: Normocephalic and atraumatic. Eyes: EOMI Neck: Neck supple. Normal range of motion. CV: Normal rate, regular rhythm and normal heart sounds. Pulm: Breathing is not labored, not in respiratory distress. CTAB. Abd: Soft, nondistended. Bowel sounds are present. There is diffuse tenderness to palpation across entire abdomen. Ext: Trace edema in bilateral LEs Skin: No rash or wound on exposed areas. HD cath on right upper chest. Port-a-ca th on left upper chest, neither with surrounding erythema or tenderness. Neuro: Grossly intact. Psych: Normal mood and affect. Lab Review 24-hour labs: Results for orders placed or performed during the hospital encounter of 09/17/19 (from the past 24 hour(s)) PROTIME INR (PT) Collection Time: 10/05/19 4:30 AM Result Value Ref Range INR 1.4 (H) 0.8 - 1.2 CBC AND DIFF Collection Time: 10/05/19 4:30 AM Result Value Ref Range White Blood Cells 8.5 4.5 - 11.0 K/UL RBC 2.48 (L) 4.0 - 5.0 M/UL Hemoglobin 7.8 (L) 12.0 - 15.0 GM/DL Hematocrit 22.4 (L) 36 - 45 % MCV 90.5 80 - 100 FL MCH 31.5 26 - 34 PG MCHC 34.8 32.0 - 36.0 G/DL RDW 13.3 11 - 15 % Platelet Count 238 150 - 400 K/UL MPV 6.4 (L) 7 - 11 FL Neutrophils 76 41 - 77 % Lymphocytes 7 (L) 24 - 44 % Monocytes 12 4 - 12 % Eosinophils 4 0 - 5 % Basophils 1 0 - 2 % Absolute Neutrophil Count 6.62 1.8 - 7.0 K/UL Absolute Lymph Count 0.59 (L) 1.0 - 4.8 K/UL Absolute Monocyte Count 1.00 (H) 0 - 0.80 K/UL Absolute Eosinophil Count 0.30 0 - 0.45 K/UL Absolute Basophil Count 0.04 0 - 0.20 K/UL BASIC METABOLIC PANEL Collection Time: 10/05/19 4:30 AM Result Value Ref Range Sodium 140 137 - 147 MMOL/L Potassium 3.5 3.5 - 5.1 MMOL/L Chloride 99 98 - 110 MMOL/L CO2 26 21 - 30 MMOL/L Anion Gap 15 (H) 3 - 12 Glucose 97 70 - 100 MG/DL Blood Urea Nitrogen 49 (H) 7 - 25 MG/DL Creatinine 5.33 (H) 0.4 - 1.00 MG/DL Calcium 8.5 8.5 - 10.6 MG/DL eGFR Non 8 (L) >60 mL/min eGFR 10 (L) >60 mL/min MAGNESIUM Collection Time: 10/05/19 4:30 AM Result Value Ref Range Magnesium 2.1 1.6 - 2.6 mg/dL PHOSPHORUS Collection Time: 10/05/19 4:30 AM Result Value Ref Range Phosphorus 4.6 (H) 2.0 - 4.5 MG/DL LDH-LACTATE DEHYDROGENASE Collection Time: 10/05/19 4:30 AM Result Value Ref Range Lactate Dehydrogenase 481 (H) 100 - 210 U/L URIC ACID, RASBURICASE Collection Time: 10/05/19 4:30 AM Result Value Ref Range Uric Acid, Rasburicase 6.4 2.0 - 7.0 mg/dL Point of Care Testing (Last 24 hours) Glucose: 97 (10/05/19 0430) Radiology and other Diagnostics Review: Pertinent radiology reviewed. Julian Malloy MD Pager [phone] * Yisel Carlos MD - 10/05/2019 9:05 AM CDT General Progress Note Name: Mary Tim Today's Date: 10/05/2019 Admission Date: 09/17/2019 LOS: 17 days Assessment/Plan: Principal Problem: Acute renal failure (ARF) (HCC) Active Problems: Hyperkalemia High anion gap metabolic acidosis UTI (urinary tract infection) Physical debility ILD (interstitial lung disease) (HCC) Anemia Abnormal CT of the chest Abnormal abdominal CT scan Elevated CA 19-9 level 69 y.o.femalewith PMHx ofHTN and cervical (C3-C7) and lumbar (L3-L5) spina l fusionswho presentedfor progressively worsening weakness and fatigue and w as found to have acute renal failure with hyperkalemia and anion gap metabolic a cidosis SuspectedDLBCL - Renal biopsy from 09/28 shows pathology that is consistent with DLBCL >Pathology report:Immunohistochemical and in situ hybridization stains performed on A1 show the tumor cells are positive for CD20, CD10(60%), BCL2, BCL6 (10%), MIB-1 (60%), MUM-1 (40%) and negative for CD3, CD5, CD30 (less than 1%), cyclin D1, cMYC, EBV. These findings are consistent with DLBCL, germinal center subtype. > TTE done on 09/18; unremarkable. LVEF of >65%, no valvular abnormalaties or wall motion abnormalities - PET scan 10/02: Hypermetabolic michael, extensive extranodal (including pulmonary , hepatic, adrenal, renal, gastric, and pancreatic), and multifocal osseous invo lvement by lymphoma Plan - Hematology consulted and they will start the staging process > Ki-67 stain pending from pathology > Pending EM results on kidney bx > f/u LP final report > BM bx today > port placement today for chemotherapy >TLS Labs ordered, required daily as she is at risk for lysis; currently stable Ca 8.6, PO4 4.3, K 3.4. Allopurinol 100mg daily started >Elevateduric acid, LDH elevated at 494,and pendingbeta-2 microglobulin labs ROSHAN;likely due to DLBCL infiltration and or sarcoidosis - likely ATN, Nephrology noted muddy brown casts and pyuria on microscopy - 7 at presentation, small improvement with IVF - Renal US unremarkable - UPr:Cr 0.9, - Renal consulted, discussed with . Plan to replace Zambrano given diste nded urinary bladder and large kidneys and renal pelvis. -pathology of renal bx shows DLBCL; see above - HD line placed - It is unknown if kidneys will regain sufficient function to not need HD. Unabl e to determine ESRD status for another 3 months. Additionally, will depend on DL BCL response. Plan -MonitorI&Os - BMP QD - Nephrology recommends care home HD treatment with TTS schedule. Abnormal CT abdomen pelvis;concern for systemic diseaseor disseminated DLBCL - CT abdomen pelvis was done for evaluation of liver lesion seen on CT chest. - Patient has minimal symptoms of vague abdominal discomfort and constipation - CT abdomenandpelvis showed multiple findings abnormalities involving the l iver, gallbladder, kidneys, right adrenal gland and retroperitoneum. Leading con sideration is lymphoma. Erdheim-Lancaster disease and IgG-4 related disease are ad ditional considerations. >Mild diffuse enlargement of the kidneys with ill-defined soft tissue thickening in the renal pelves and asymmetric perinephric stranding. Mild nodular enlargement of the right adrenal gland with ill-defined stranding. Mild central retroperitoneal lymphadenopathy. Mild diffuse soft tissue thickening in the presacral space in the pelvis may represent additional lymphadenopathy. Multiple small hypodense hepatic lesions. Diffuse enlargement of the gallbladder with pericystic stranding. Acute cholecystitis should also be considered for this finding.. Abnormal low attenuation tissue in the body and tail of the pancreas with a small calculus towards the midline. This low-attenuation tissue most likely represents a dilated main pancreatic duct. -lipase 118, CA-19 93 - Elevated alk phos, concern for DLBCL give recent kidney bx results - Based on PET scan, there is likely lymphoma infiltration of the liver, pancrea s, and stomach Plan -f/uflow cytometry -GI consulted consult; EUS will be on hold. It is non-urgent, can be done as o utpt once patient is more stable UTI, resolved -UA shows blood and pyuria - UCx with e. coli and enterobacter.Sensitive to Rocephin - completedrocephin for 7 days09/25 Hyperkalemia - aggressively treated prior to transfer - continue to monitor Constipation - Miralax, senokot, suppository AGMA, improved -Sodium Bicarb tablet 650mg PO BID -Monitor Acute Hypoxic Respiratory Failure Dyspnea, Fatigue; CT chestconcerning for ILD: Sarcoidosis and or DLBCL infiltr ation - CXR at OSH without acute process - Echo normal - Repeat chest x-ray showed areas offibrosis, suprabasal opacities may be due to atelectasis, pneumonia and/or scarring. - CT chest showedright greater than left peribronchovascular and subpleural re ticulation and architectural distortion with mid lung zone predominance most com patible with fibrosing interstitial lung disease. -Leading considerations for this pattern of fibrosis would include sarcoidosis especially given mediastinal and hilar lymph nodes or potentially the fibrotic form of hypersensitivity pneumonitis. - Does have arthritic pain in her hand joints and feet,family history of lupus - BAL was unremarkable - ILD Labs largely negative except for elevated Aldolase at 9.2. - Urine Ca random 0.7 and IgG4 within normal range. - PFTs consistent with restrictive pattern - New developing cough with sputum production reported 09/29; audible crackles he keyanna on auscultation at RLL - Bronch Bx shows granuloma formation, consistent with sarcoidosis - CXR 10/01 shows signs concerning for increased patchy bilateral opacities, most pronounced in the right upper and left midlung; could reflect worsening acute exacerbation of underlying interstitial lung disease versus multifocal pneumonia. Follow-up chest radiogra phs suggested. - BNP 10/01 is elevated at 420, likely due to acute renal failure Plan - Pulmonology consulted -Plan for EUS, currently not urgent, postponed for outpt f/u -Attention on short-term follow-up CT in 3 months time to reassess. -[place]-Marker Panel Labs sent with elevated Aldolase, will follow up results as above. -Continue incentive spirometry as ordered and supplemental O2 as needed - hold 40mg prednisone for now while DLBCL work up is happening HTN - hold CECE, HCTZ - Blood pressure mildly elevated.On [id number] -BP control, less than 140/90. Labetalol prn, hydralazine prn, Chronic Back Pain -conthydrocodone - emu oil prn Normocytic Anemia - Status post 1 PRBC09/24.hemoglobin around 10.Transfuse if hemoglobin less than 7 - Iron studies showed mixed picture of iron deficiency and anemia of chronic d isease - B12 and folate low, started replacement - LDH elevated. Haptoglobin normal. Peripheral smear showed normocytic anemia. Absolute lymphocytopenia. Mild monocytosis. Mild Transaminitis, resolved - hepatitis panel; negative - trend Physical debility - PT OT eval.recommending inpatient.Patient agreeable for rehab. SW To ashli t with placement FEN: No IVF, BMP Q,NPO today Code: Full, discussed on admit PPx: HsQ Dispo: transfer to heme service. I provided handoff to hematology service. Subjective Mary Tim is a 69 y.o. female. Patient was seen and examined on dialysis. She reports worsened cough from overnight. Patient has no fevers, chills, nausea or vomiting. Medications Scheduled Meds:allopurinoL (ZYLOPRIM) tablet 100 mg, 100 mg, Oral, QDAY amitriptyline/gabapentin/emu oil(#) 4/4/10 % topical cream, , Topical, Q8H amLODIPine (NORVASC) tablet 10 mg, 10 mg, Oral, QDAY cyanocobalamin (VITAMIN B-12) tablet 1,000 mcg, 1,000 mcg, Oral, QDAY folic acid (FOLVITE) tablet 1 mg, 1 mg, Oral, QDAY heparin (porcine) PF syringe 5,000 Units, 5,000 Units, Subcutaneous, Q8H* mineral oil/hydrophilic petrolatum (AQUAPHOR, DERMAPHOR) topical ointment, , Top ical, QDAY polyethylene glycol 3350 (MIRALAX) packet 34 g, 2 packet, Oral, QDAY senna (SENOKOT) tablet 2 tablet, 2 tablet, Oral, QHS sodium bicarbonate tablet 650 mg, 650 mg, Oral, BID SODIUM CITRATE 4 % (3 ML) IK SYRG (Cabinet Override), , , NOW vitamins, multi B, C, Zn & folate (Renal) (NEPHPLEX RX) tablet 1 tablet, 1 tablet, Oral, QDAY Continuous Infusions: PRN and Respiratory Meds:anticoagulant sodium citrate IP Dialysis PRN, bisacodyL QDAY PRN, calcium carbonate Q6H PRN, guaiFENesin Q4H PRN, hydrALAZINE Q6H PRN, HYDROcodone/acetaminophen Q6H PRN, labetalol (NORMODYNE; TRANDATE) injection Q6H PRN, melatonin QHS PRN, simethicone Q6H PRN, sodium chloride 0.9% (NS) IP Dialy sis PRN, sodium chloride 0.9% (NS) IP Dialysis PRN, sodium chloride 0.9% (NS) IP Dialysis PRN, vitamin A & D PRN Review of Systems: Respiratory:negative, positive forcough, increased work of breathing, wheezi ng, dyspnea on exertion orhypoxia GI: mild abdominal pain, denies N/V MSK: moderate back pain Objective: Vital Signs: Last Filed Vital Signs: 24 Fernanda r Range BP: 126/63 (10/04 829) Temp: 36.8 C (98.3 F) (10/04 642) Pulse: 93 (10/04 829) Respirations: 33 PER MINUTE (10/04 829) SpO2: 96 % (10/04 829) SpO2 Pulse: 91 (07/25 0830) BP: (100-143)/(41-99) Temp: [36.4 C (97.5 F)-36.8 C (98.3 F)] Pulse: [80-104] Respirations: [15 PER MINUTE-33 PER MINUTE] SpO2: [93 %-98 %] Intensity Pain Scale (Self Report): 8 (10/04/19 2136) Verbal Pain Description: Mild Pain (10/04/19 1015) Vitals: 10/03/19 0750 10/03/19 1100 10/05/19 0643 Weight: 72.9 kg (160 lb 11.5 oz) 69.9 kg (154 lb 1.6 oz) 71.5 kg (157 lb 10.1 oz ) Intake/Output Summary: (Last 24 hours) Intake/Output Summary (Last 24 hours) at 10/05/2019 0905 Last data filed at 10/05/2019 0654 Gross per 24 hour Intake 440 ml Output 100 ml Net 340 ml Stool Occurrence: 1 Physical Exam General: Alert, no distress. Conjunctival pallor Neck: Supple, nontender,+ HJR/JVD or lymphadenopathy Resp:Coarse rales and crackles at RLL. Diffuse rales. CV: Regular rate and rhythm, S1, S2 normal, no murmur. No peripheral edema. GI: Soft, moderately tender. Bowel sounds normal. Neuro: No focal deficits, CN 2-12 grossly intact bilaterally, oriented x3 Psych: normal affect and mood, remote and recent memory intact Lab Review Hematology: Lab Results Component Value Date HGB 7.8 10/05/2019 HCT 22.4 10/05/2019 PLTCT 238 10/05/2019 WBC 8.5 10/05/2019 NEUT 76 10/05/2019 ANC 6.62 10/05/2019 LYMPH 4 10/04/2019 ALC 0.59 10/05/2019 WILLIE 12 10/05/2019 AMC 1.00 10/05/2019 ABC 0.04 10/05/2019 MCV 90.5 10/05/2019 MCHC 34.8 10/05/2019 MPV 6.4 10/05/2019 RDW 13.3 10/05/2019 and General Chemistry: Lab Results Component Value Date NA 140 10/05/2019 K 3.5 10/05/2019 CL 99 10/05/2019 GAP 15 10/05/2019 BUN 49 10/05/2019 CR 5.33 10/05/2019 GLU 97 10/05/2019 CA 8.5 10/05/2019 ALBUMIN 2.7 10/01/2019 LACTIC 2.1 09/27/2019 MG 2.1 10/05/2019 TOTBILI 0.4 10/01/2019 Point of Care Testing (Last 24 hours) Glucose: 97 (10/05/19 0430) Radiology and other Diagnostics Review: Pertinent radiology reviewed. Yisel Carlos MD * Bebeto Wagner MD - 10/04/2019 6:44 PM CDT General Progress Note Name: Mary Tim Today's Date: 10/04/2019 Admission Date: 09/17/2019 LOS: 16 days Assessment/Plan: Principal Problem: Acute renal failure (ARF) (HCC) Active Problems: Hyperkalemia High anion gap metabolic acidosis UTI (urinary tract infection) Physical debility ILD (interstitial lung disease) (HCC) Anemia Abnormal CT of the chest Abnormal abdominal CT scan Elevated CA 19-9 level 69 yo F with PMHx htn, cervical and lumbar spinal fusions, presented originally to OSH with weakness, fatigue, dyspnea, found to be in renal failure now on HD, initially worked up for ILD and found to have presacral and RP LAD as well as as bilateral kidney enlargement, found to have infiltration of DLBCL on kidney bio psy. Diagnosis Immunohistochemical and in situ hybridization stains performed on A1 show the tu mor cells are positive for CD20, CD10(60%), BCL2, BCL6 (10%), MIB-1 (60%), MUM-1 (40%) and negative for CD3, CD5, CD30 (less than 1%), cyclin D1, cMYC, EBV. The se findings are consistent with DLBCL, germinal center subtype. PET Hypermetabolic michael, extensive extranodal (including pulmonary, hepatic, adrena l, renal, gastric, and pancreatic), and multifocal osseous involvement by lympho ma IPI 6 MUM-1 40% LP done without evidence of disease, so will proceed with prophylactic IT chemo. Bone marrow pending, done 10/03. Summary and recommendations - consent done for R-CHOP with IT chemoprophylaxis. To start tomorrow. HD sessio n tomorrow as well. - To transfer to inpatient hematology service tomorrow morning. - continue allopurinol 100mg/day given renal dysfunction - TLS labs daily with LDH, uric acid, phos, K, Ca++ - daily cbc and bmp Patient seen and staffed with Dr. Justo Wagner MD PGY 4 Hematology Oncology Subjective Mary Tim is a 69 y.o. female. Still some abdominal pain today. Procedures yesterday included LP, today she got a port and a bone marrow biopsy. Discussed starting R-CHOP and obtained consent. Medications Scheduled Meds:allopurinoL (ZYLOPRIM) tablet 100 mg, 100 mg, Oral, QDAY amitriptyline/gabapentin/emu oil(#) 4/4/10 % topical cream, , Topical, Q8H amLODIPine (NORVASC) tablet 10 mg, 10 mg, Oral, QDAY cyanocobalamin (VITAMIN B-12) tablet 1,000 mcg, 1,000 mcg, Oral, QDAY folic acid (FOLVITE) tablet 1 mg, 1 mg, Oral, QDAY heparin (porcine) PF syringe 5,000 Units, 5,000 Units, Subcutaneous, Q8H* mineral oil/hydrophilic petrolatum (AQUAPHOR, DERMAPHOR) topical ointment, , Top ical, QDAY polyethylene glycol 3350 (MIRALAX) packet 34 g, 2 packet, Oral, QDAY senna (SENOKOT) tablet 2 tablet, 2 tablet, Oral, QHS sodium bicarbonate tablet 650 mg, 650 mg, Oral, BID vitamins, multi B, C, Zn & folate (Renal) (NEPHPLEX RX) tablet 1 tablet, 1 tablet, Oral, QDAY Continuous Infusions: PRN and Respiratory Meds:bisacodyL QDAY PRN, calcium carbonate Q6H PRN, guaiFENe sin Q4H PRN, hydrALAZINE Q6H PRN, HYDROcodone/acetaminophen Q6H PRN, labetalol ( NORMODYNE; TRANDATE) injection Q6H PRN, melatonin QHS PRN, simethicone Q6H PRN, vitamin A & D PRN Review of Systems: See HPI/subjective Objective: Vital Signs: Last Filed Vital Signs: 24 Fernanda r Range BP: 109/52 (10/03 1105) Temp: 36.4 C (97.6 F) (10/03 1105) Pulse: 85 (10/03 1600) Respirations: 17 PER MINUTE (10/03 1015) SpO2: 93 % (10/03 1105) SpO2 Pulse: 87 (10/03 1015) BP: (100-137)/(41-99) Temp: [36.2 C (97.2 F)-36.7 C (98.1 F)] Pulse: [80-104] Respirations: [15 PER MINUTE-29 PER MINUTE] SpO2: [89 %-99 %] Intensity Pain Scale (Self Report): 8 (10/04/19 1600) Intensity Pain Scale (Self Report): 9 (10/04/19 0600) Verbal Pain Description: Mild Pain (10/04/19 1015) Vitals: 10/02/19 1626 10/03/19 0750 10/03/19 1100 Weight: 75.1 kg (165 lb 9.1 oz) 72.9 kg (160 lb 11.5 oz) 69.9 kg (154 lb 1.6 oz) Intake/Output Summary: (Last 24 hours) Intake/Output Summary (Last 24 hours) at 10/04/2019 1844 Last data filed at 10/04/2019 1600 Gross per 24 hour Intake 360 ml Output 100 ml Net 260 ml Stool Occurrence: 1 Physical Exam Gen- awake, alert, oriented x4, in NAD, sitting up, interactive. Resp- no distress on NC Skin- no lesions or petichiae Abd- non-distended, mildly tender diffusely Lymph- no cervical or supraclavicular LAD. Neuro- CN 2-12 grossly intact, Lab Review 24-hour labs: Results for orders placed or performed during the hospital encounter of 09/17/19 (from the past 24 hour(s)) PROTIME INR (PT) Collection Time: 10/04/19 6:54 AM Result Value Ref Range INR 1.4 (H) 0.8 - 1.2 CBC AND DIFF Collection Time: 10/04/19 6:54 AM Result Value Ref Range White Blood Cells 8.5 4.5 - 11.0 K/UL RBC 2.57 (L) 4.0 - 5.0 M/UL Hemoglobin 7.8 (L) 12.0 - 15.0 GM/DL Hematocrit 23.0 (L) 36 - 45 % MCV 89.6 80 - 100 FL MCH 30.2 26 - 34 PG MCHC 33.7 32.0 - 36.0 G/DL RDW 13.3 11 - 15 % Platelet Count 244 150 - 400 K/UL MPV 6.4 (L) 7 - 11 FL Neutrophils 79 (H) 41 - 77 % Lymphocytes 5 (L) 24 - 44 % Monocytes 12 4 - 12 % Eosinophils 3 0 - 5 % Basophils 1 0 - 2 % Absolute Neutrophil Count 6.86 1.8 - 7.0 K/UL Absolute Lymph Count 0.40 (L) 1.0 - 4.8 K/UL Absolute Monocyte Count 0.99 (H) 0 - 0.80 K/UL Absolute Eosinophil Count 0.22 0 - 0.45 K/UL Absolute Basophil Count 0.06 0 - 0.20 K/UL BASIC METABOLIC PANEL Collection Time: 10/04/19 6:54 AM Result Value Ref Range Sodium 142 137 - 147 MMOL/L Potassium 3.4 (L) 3.5 - 5.1 MMOL/L Chloride 100 98 - 110 MMOL/L CO2 28 21 - 30 MMOL/L Anion Gap 14 (H) 3 - 12 Glucose 87 70 - 100 MG/DL Blood Urea Nitrogen 37 (H) 7 - 25 MG/DL Creatinine 4.09 (H) 0.4 - 1.00 MG/DL Calcium 8.6 8.5 - 10.6 MG/DL eGFR Non 11 (L) >60 mL/min eGFR 13 (L) >60 mL/min MAGNESIUM Collection Time: 10/04/19 6:54 AM Result Value Ref Range Magnesium 2.0 1.6 - 2.6 mg/dL PHOSPHORUS Collection Time: 10/04/19 6:54 AM Result Value Ref Range Phosphorus 4.3 2.0 - 4.5 MG/DL LDH-LACTATE DEHYDROGENASE Collection Time: 10/04/19 6:54 AM Result Value Ref Range Lactate Dehydrogenase 494 (H) 100 - 210 U/L MANUAL DIFF Collection Time: 10/04/19 6:54 AM Result Value Ref Range Segmented Neutrophils 78 (H) 41 - 77 % Lymphocytes 4 (L) 24 - 44 % Monocytes 17 (H) 4 - 12 % Eosinophil 1 0 - 5 % Platelet Estimate NORMAL RBC Morph POLY OVALO URIC ACID Collection Time: 10/04/19 6:54 AM Result Value Ref Range Uric Acid 4.8 2.0 - 7.0 MG/DL LEUKEMIA/LYMPHOMA PNL, BONE MARROW Collection Time: 10/04/19 9:20 AM Result Value Ref Range Leuk/Lymph Interpretation SEE PATHOLOGY REPORT Specimen/LLM BONE MARROW Point of Care Testing (Last 24 hours) Glucose: 87 (10/04/19 0654) Radiology and other Diagnostics Review: Pertinent radiology reviewed. Bebeto Wagner MD Associated attestation - Nantete Kemp MD - 10/04/2019 9:09 PM CDT ATTESTATION I personally observed the resident performing the E/M, discussed case with resid ent, and concur with resident documentation of history, physical assessment and treatment plan unless otherwise noted. Widespread diffuse large B-cell lymphoma, extranodal involvement, bone marrow bi opsy done today, LP negative on flow and cyto-for involvement, consider prophyla ctic chemo due to high risk IPI and high risk for IC [employer] recurrence, on dialysis, d ose reduced chemo meds, appreciate Dr. Velez helping with her care and will likel y resume care for her on the inpatient hematology service starting tomorrow with chemotherapy. Dose reduced chemo meds as needed. Staff name: Nanette Kemp MD Date: 10/04/2019 * Aniyah Paz, PT - 10/04/2019 3:22 PM CDT PHYSICAL THERAPY PROGRESS NOTE Name: Mary Tim : 1950 Age: [age] y.o. Admission Date: 09/17/2019 LOS: 16 days Mobility Patient Turn/Position: Chair Progressive Mobility Level: Walk in room Distance Walked (feet): 15 ft(then 10') Level of Assistance: Assist X1 Assistive Device: Walker Time Tolerated: 11-30 minutes Activity Limited By: Fatigue Subjective Significant hospital events: PMH: back pain, cervical fusion, lumbar fusion, chr onic pain, HTN. Reason for admission: Progressively worsening weakness and fatig ue. Patient was found to have acute renal failure with hyperkalemia and anion ga p metabolic acidosis.renal biopsy 09/29. HD cathether placement 09/[address] anned for 09/30 and 10/01 for anticipation of improved renal function. Mental / Cognitive Status: Alert;Cooperative;Follows Commands Persons Present: Nursing Staff Pain: Patient has no complaint of pain Bed Mobility/Transfer Bed Mobility: Supine to Sit: Standby Assist;Head of Bed Elevated;Use of Rail Transfer Type: Sit to/from Stand Transfer: Assistance Level: To/From;Bed;Toilet;Standby Assist Transfer: Assistive Device: Roller Walker Transfers: Type Of Assistance: For Safety Considerations End Of Activity Status: Up in Chair;Nursing Notified;Instructed Patient to Reque st Assist with Mobility;Instructed Patient to Use Call Light(pads alarm activate d) Gait Gait Distance: 15 feet(then 10') Gait: Assistance Level: Minimal Assist Gait: Assistive Device: Roller Walker Gait: Descriptors: Pace: Slow;Decreased foot clearance RLE;Decreased foot cleara nce LLE;Decreased step length Activity Limited By: Complaint of Fatigue Education Persons Educated: Patient Patient Barriers To Learning: None Noted Teaching Methods: Verbal Instruction Patient Response: Verbalized Understanding Topics: Plan/Goals of PT Interventions;Mobility Progression;Up with Assist Only; Importance of Increasing Activity;Ambulate With Nursing;Safety Awareness Assessment/Progress Impaired Mobility Due To: Decreased Activity Tolerance Assessment/Progress: Should Improve w/ Continued PT AM-PAC 6 Clicks Basic Mobility Inpatient Turning from your back to your side while in a flat bed without using bed rails: None Moving from lying on your back to sitting on the side of a flatbed without using bedrails : A Little Moving to and from a bed to a chair (including a wheelchair): A Little Standing up from a chair using your arms (e.g. wheelchair, or bedside chair): A Little To walk in hospital room: A Little Climbing 3-5 steps with a railing: A Little Raw Score: 19 Standardized (T-scale) Score: 42.48 Basic Mobility CMS 0-100%: 36.99 CMS G Code Modifier for Basic Mobility: CJ Goals Goal Formulation: With Patient Time For Goal Achievement: 5 days, To, 7 days Patient Will Transfer Bed/Chair: Independently Patient Will Ambulate: Greater than 200 Feet, w/ No Device, Independently Patient Will Go Up / Down Stairs: 3-5 Stairs, Independently Plan Treatment Interventions: Mobility Training Plan Frequency: 5 Days per Week PT Plan for Next Visit: Increase gait distance; trial stairs as able. P.T. mobility aide to assist with ongoing mobilization and exercise per instruct ions of licensed physical therapy staff. PT Discharge Recommendations Recommendation: Inpatient setting Therapist: Aniyah Paz, PT Date: 10/04/2019 T * Kenji Peña, DO - 10/04/2019 12:14 PM CDT Renal Progress Note Name: Mary Tim Today's Date: 10/04/2019 Admission Date: 09/17/2019 LOS: 16 days Assessment/Plan: Principal Problem: Acute renal failure (ARF) (HCC) Active Problems: Hyperkalemia High anion gap metabolic acidosis UTI (urinary tract infection) Physical debility ILD (interstitial lung disease) (HCC) Anemia Abnormal CT of the chest Abnormal abdominal CT scan Elevated CA 19-9 level Ms. Tim is a69 yo F with PMH of HTN, cervical and lumbar spinal fusions, r eported RA who is admitted for ROSHAN. Developed anuric ROSHAN requiring intermittent HD. Renal biopsy with DLBCL. 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 - Plan for intermittent HD tomorrow 10/05/19 - Ideally would plan for TTS schedule moving forward - Recommend encouraging PO intake. No IVFs at this time. - Appreciate hematology input. Underwent PET/LP yesterday - port placement and B M Bx today. - Too early to determine if patient will recover any reasonable renal function f ollowing the treatment of DLBCL. Unable to determine ESRD status for another 3 m onths. Additionally, will depend on DLBCL response. - Continue with Renal HD diet - Monitor daily weights - Avoid NSAIDs and contrast if possible - Avoid nephrotoxic medications - Renally dose medications - We will continue to follow - Please page with questions Sharron Oakley, MS4 The patient was assessed and the appropriate management was discussed with Dr. Karine Peña D.O. Nephrology Fellow Pager #: This note was composed with Dragon Dictation. As such, there may be transcriptio nal errors. For questions, please contact Dr. Peña. Subjective Mary Tim is a 69 y.o. female. Patient was on her way to her [facility] when I saw her this morning. States she did not sleep very well and was scared of the procedures she was undergoing but has tolerated them well. She reports m ild shortness of breath, though unchanged from yesterday. Medications Scheduled Meds:allopurinoL (ZYLOPRIM) tablet 100 mg, 100 mg, Oral, QDAY amitriptyline/gabapentin/emu oil(#) 4/4/10 % topical cream, , Topical, Q8H amLODIPine (NORVASC) tablet 10 mg, 10 mg, Oral, QDAY cyanocobalamin (VITAMIN B-12) tablet 1,000 mcg, 1,000 mcg, Oral, QDAY folic acid (FOLVITE) tablet 1 mg, 1 mg, Oral, QDAY heparin (porcine) PF syringe 5,000 Units, 5,000 Units, Subcutaneous, Q8H* mineral oil/hydrophilic petrolatum (AQUAPHOR, DERMAPHOR) topical ointment, , Top ical, QDAY polyethylene glycol 3350 (MIRALAX) packet 34 g, 2 packet, Oral, QDAY senna (SENOKOT) tablet 2 tablet, 2 tablet, Oral, QHS sodium bicarbonate tablet 650 mg, 650 mg, Oral, BID vitamins, multi B, C, Zn & folate (Renal) (NEPHPLEX RX) tablet 1 tablet, 1 tablet, Oral, QDAY Continuous Infusions: PRN and Respiratory Meds:bisacodyL QDAY PRN, calcium carbonate Q6H PRN, guaiFENe sin Q4H PRN, hydrALAZINE Q6H PRN, HYDROcodone/acetaminophen Q6H PRN, labetalol ( NORMODYNE; TRANDATE) injection Q6H PRN, melatonin QHS PRN, simethicone Q6H PRN, vitamin A & D PRN Review of Systems: Constitutional: positive for fatigue, negative for fevers and chills Respiratory: positive for dyspnea on exertion and cough with sputum production Cardiovascular: negative for chest pain, palpitations, orthopnea Gastrointestinal: positive for abdominal pain, negative for nausea, vomiting, di arrhea and constipation Objective: Vital Signs: Last Filed Vital Signs: 24 Fernanda r Range BP: 109/52 (10/03 1105) Temp: 36.4 C (97.6 F) (10/03 1105) Pulse: 80 (10/03 1105) Respirations: 17 PER MINUTE (10/03 1015) SpO2: 93 % (10/03 1105) SpO2 Pulse: 87 (10/03 1015) BP: (100-137)/(41-99) Temp: [36.2 C (97.2 F)-36.9 C (98.5 F)] Pulse: [78-104] Respirations: [15 PER MINUTE-29 PER MINUTE] SpO2: [89 %-99 %] Intensity Pain Scale (Self Report): 9 (10/04/19 0600) Intensity Pain Scale (Self Report): 9 (10/04/19 0600) Verbal Pain Description: Mild Pain (10/04/19 1015) Vitals: 10/02/19 1626 10/03/19 0750 10/03/19 1100 Weight: 75.1 kg (165 lb 9.1 oz) 72.9 kg (160 lb 11.5 oz) 69.9 kg (154 lb 1.6 oz) Intake/Output Summary: (Last 24 hours) Intake/Output Summary (Last 24 hours) at 10/04/2019 1404 Last data filed at 10/04/2019 1105 Gross per 24 hour Intake 120 ml Output 0 ml Net 120 ml Stool Occurrence: 1 Physical Exam General: Tired-appearing and in no apparent distress. Neuro: Alert and oriented to person, place, and time. HEENT: Oral mucosa dry. Cardio: Regular rate and rhythm without murmur or rub. No JVD appreciated. Pulmonary: Diffuse crackles on auscultation bilaterally. GI: Normal bowel sounds x4. Mild diffuse abdominal TTP. MSK: Trace lower extremity edema appreciated. Lab Review 24-hour labs: Results for orders placed or performed during the hospital encounter of 09/17/19 (from the past 24 hour(s)) PROTIME INR (PT) Collection Time: 10/04/19 6:54 AM Result Value Ref Range INR 1.4 (H) 0.8 - 1.2 CBC AND DIFF Collection Time: 10/04/19 6:54 AM Result Value Ref Range White Blood Cells 8.5 4.5 - 11.0 K/UL RBC 2.57 (L) 4.0 - 5.0 M/UL Hemoglobin 7.8 (L) 12.0 - 15.0 GM/DL Hematocrit 23.0 (L) 36 - 45 % MCV 89.6 80 - 100 FL MCH 30.2 26 - 34 PG MCHC 33.7 32.0 - 36.0 G/DL RDW 13.3 11 - 15 % Platelet Count 244 150 - 400 K/UL MPV 6.4 (L) 7 - 11 FL Neutrophils 79 (H) 41 - 77 % Lymphocytes 5 (L) 24 - 44 % Monocytes 12 4 - 12 % Eosinophils 3 0 - 5 % Basophils 1 0 - 2 % Absolute Neutrophil Count 6.86 1.8 - 7.0 K/UL Absolute Lymph Count 0.40 (L) 1.0 - 4.8 K/UL Absolute Monocyte Count 0.99 (H) 0 - 0.80 K/UL Absolute Eosinophil Count 0.22 0 - 0.45 K/UL Absolute Basophil Count 0.06 0 - 0.20 K/UL BASIC METABOLIC PANEL Collection Time: 10/04/19 6:54 AM Result Value Ref Range Sodium 142 137 - 147 MMOL/L Potassium 3.4 (L) 3.5 - 5.1 MMOL/L Chloride 100 98 - 110 MMOL/L CO2 28 21 - 30 MMOL/L Anion Gap 14 (H) 3 - 12 Glucose 87 70 - 100 MG/DL Blood Urea Nitrogen 37 (H) 7 - 25 MG/DL Creatinine 4.09 (H) 0.4 - 1.00 MG/DL Calcium 8.6 8.5 - 10.6 MG/DL eGFR Non 11 (L) >60 mL/min eGFR 13 (L) >60 mL/min MAGNESIUM Collection Time: 10/04/19 6:54 AM Result Value Ref Range Magnesium 2.0 1.6 - 2.6 mg/dL PHOSPHORUS Collection Time: 10/04/19 6:54 AM Result Value Ref Range Phosphorus 4.3 2.0 - 4.5 MG/DL LDH-LACTATE DEHYDROGENASE Collection Time: 10/04/19 6:54 AM Result Value Ref Range Lactate Dehydrogenase 494 (H) 100 - 210 U/L MANUAL DIFF Collection Time: 10/04/19 6:54 AM Result Value Ref Range Segmented Neutrophils 78 (H) 41 - 77 % Lymphocytes 4 (L) 24 - 44 % Monocytes 17 (H) 4 - 12 % Eosinophil 1 0 - 5 % Platelet Estimate NORMAL RBC Morph POLY OVALO LEUKEMIA/LYMPHOMA PNL, BONE MARROW Collection Time: 10/04/19 9:20 AM Result Value Ref Range Leuk/Lymph Interpretation SEE PATHOLOGY REPORT Specimen/LLM BONE MARROW Point of Care Testing (Last 24 hours) Glucose: 87 (10/04/19 0654) Radiology and other Diagnostics Review: IR CENTRAL VENOUS CATHETER Final Result Ultrasound and fluoroscopic guidance for left 8 [place] chest port placement, as described. IJonathan M.D, the attending radiologist, was present for the criti luis fernando and ruiz portions of the procedure with an advanced practice provider, reside nt, and/or fellow participating. Overlapping portions were non ruiz and I was im mediately available. I interpret the critical and ruiz portion of this procedure to have been the procedural time out and needle access. @TT Approved by George Mckinney D.O. on 10/04/2019 10:00 AM By my electronic signature, I attest that I have personally reviewed the images for this examination and formulated the interpretations and opinions expressed i n this report Finalized by Jonathan Shirley M.D. on 10/04/2019 10:30 AM. Dictated by George mckenna D.O. on 10/04/2019 9:57 AM. NM PET SCAN WHOLEBODY (HEAD-TOES) Final Result Hypermetabolic michael, extensive extranodal (including pulmonary, hepatic, adrena l, renal, gastric, and pancreatic), and multifocal osseous involvement by lympho ma 5PS = 5 Finalized by Maximilian Osorio M.D. on 10/04/2019 5:32 AM. Dictated by Maximilian mann M.D. on 10/03/2019 5:12 PM. IR LUMBAR PUNCTURE Final Result Diagnostic lumbar puncture. I, Sourav Coon M.D., the attending interventional radiologist, performed the entire procedure, personally reviewed the images, and formulated the interpr etations and opinions expressed in this report. @TT Finalized by Sourav Coon M.D. on 10/03/2019 1:56 PM. Dictated by Sourav reed M.D. on 10/03/2019 1:56 PM. CHEST 2 VIEWS Final Result 1. Increased patchy bilateral opacities, most pronounced in the right upper and left midlung. These findings could reflect worsening acute exacerbation of unde rlying interstitial lung disease versus multifocal pneumonia. Follow-up chest ra diographs suggested. 2. Small bilateral pleural effusions. By my electronic signature, I attest that I have personally reviewed the images for this examination and formulated the interpretations and opinions expressed i n this report Finalized by Eric Brennan M.D. on 10/02/2019 2:32 PM. Dictated by Trevin Quiros M.D. on 10/02/2019 2:02 PM. IR CENTRAL VENOUS CATHETER Final Result Successful image-guided placement of tunneled hemodialysis catheter. I, Jonathan Shirley M.D, the attending radiologist, was present for the criti luis fernando and ruiz portions of the procedure with an advanced practice provider, reside nt, and/or fellow participating. Overlapping portions were non ruiz and I was im mediately available. I interpret the critical and ruiz portion of this procedure to have been the procedural time out and needle access. @TT Approved by Alonso Farfan D.O. on 10/01/2019 1:39 PM By my electronic signature, I attest that I have personally reviewed the images for this examination and formulated the interpretations and opinions expressed i n this report Finalized by Jonathan Shirley M.D. on 10/01/2019 1:45 PM. Dictated by Alonso Farfan D.O. on 10/01/2019 1:37 PM. IR RENAL BIOPSY Final Result Successful ultrasound guided left kidney biopsy as described. Specimen was co nfirmed adequate by the cytopathologist at time of procedure. I, Mak Lynch M.D., the attending radiologist, was present for the procedure, pe rsonally reviewed the images, and formulated the interpretations and opinions ex pressed in this report. @TT Finalized by MAK LYNCH on 09/30/2019 1:35 PM. Dictated by MAK LYNCH on 09/30/2019 1:[address] ABD/PELV WO CONTRAST Final Result 1. Abnormalities involving the liver, gallbladder, kidneys, right adrenal gland and retroperitoneum. Leading consideration is lymphoma. Erdheim-Lancaster disease and IgG-4 related disease are additional considerations. 2. Mild diffuse enlargement of the kidneys with ill-defined soft tissue thickeni ng in the renal pelves and asymmetric perinephric stranding. 3. Mild nodular enlargement of the right adrenal gland with ill-defined strandin g. 4. Mild central retroperitoneal lymphadenopathy. Mild diffuse soft tissue thicke norman in the presacral space in the pelvis may represent additional lymphadenopat hy. 5. Multiple small hypodense hepatic lesions 6. Diffuse enlargement of the gallbladder with pericystic stranding. Acute michela cystitis should also be considered for this finding. 7. Abnormal low attenuation tissue in the body and tail of the pancreas with a s mall calculus towards the midline. This low-attenuation tissue most likely repre sents a dilated main pancreatic duct. Dr. Hoyt discussed these findings with Dc by telephone at 1:55 PM 09/26/2019 Finalized by Lasha Hoyt M.D. on 09/26/2019 1:57 PM. Dictated by Lasha Hoyt M.D. on 09/26/2019 1:[address] CHEST WO CONTRAST Final Result Abnormal Addendum 1 of 1 Finalized by Eric Brennan M.D. on 09/25/2019 [...] Eric Brennan M.D. on 09/25/2019 8:38 AM. Final CHEST 2 VIEWS Final Result Areas of fibrosis. Superimposed opacities may be due to atelectasis, pneumonia a nd/or scarring. CT chest is recommended for further evaluation. By my electronic signature, I attest that I have personally reviewed the images for this examination and formulated the interpretations and opinions expressed i n this report Finalized by Carmela Lane M.D. on 09/24/2019 3:10 PM. Dictated by Yakelin cutler M.D. on 09/24/2019 2:26 PM. 2D + DOPPLER ECHO Final Result US RENAL BLADDER COMPLETE Final Result 1. Symmetric, normal renal size. 2. Patent renal vessels. No evidence of hemodynamically significant renal arter y stenosis. 3. Elevated intrarenal resistivity, most compatible with a nonspecific, diffuse parenchymal disease. Finalized by Brenda Stahl M.D. on 09/18/2019 12:17 PM. Dictated by Alexis Jovel on 09/18/2019 9:16 AM. US DOPPLER ABD PELV RETROPER COMP Final Result 1. Symmetric, normal renal size. 2. Patent renal vessels. No evidence of hemodynamically significant renal arter y stenosis. 3. Elevated intrarenal resistivity, most compatible with a nonspecific, diffuse parenchymal disease. Finalized by Brenda Stahl M.D. on 09/18/2019 12:17 PM. Dictated by Alexis Jovel on 09/18/2019 9:16 AM. GENERAL RAD CHEST EXTERNAL IMAGING Final Result IR BONE MARROW BIOPSY (Results Pending) Kenji Peña DO Pager [phone] Associated attestation - Levar Coleman DO - 10/04/2019 7:35 PM CDT ATTESTATION She had a busy day with line placement and port placement. She was still under s ome sedation effect when we saw her. For her ROSHAN will plan for dialysis tomorrow . Continue to monitor strict Is/Os. I personally performed the ruiz portions of the E/M visit, discussed case with th e fellow and concur with fellow documentation of history, physical exam, assessm ent, and treatment plan unless otherwise noted. Staff name: Levar Coleman DO * Jolly Jasso OT - 10/04/2019 11:48 AM CDT OCCUPATIONAL THERAPY NOTE Name: Mary Tim : 1950 Age: [age] y.o. Admission Date: 09/17/2019 LOS: 16 days Pt off the unit at IR this morning for L chest port placement. 11:49: pt on bedrest post port placement. 1548: Pt just finished working with PT. Occupational therapy will continue to follow and provide intervention as indicat ed. Therapist: Jolly Jasso OTR/L [id number] Date: 10/04/2019 * Reji Read MD - 10/04/2019 10:43 AM CDT Pulmonary Progress Note Name: Mary Tim Today's Date: 10/04/2019 Admission Date: 09/17/2019 LOS: 16 days Assessment/Plan: Principal Problem: Acute renal failure (ARF) (HCC) Active Problems: Hyperkalemia High anion gap metabolic acidosis UTI (urinary tract infection) Physical debility ILD (interstitial lung disease) (HCC) Anemia Abnormal CT of the chest Abnormal abdominal CT scan Elevated CA 19-9 level Ms. Tim is a69 yo F with PMH of HTN, cervical and lumbar spinal fusions, r eported RA who is admitted withacute renal failure, found to have abnormal kavon st CT findings concerning for sarcoidosis and renal biopsy showing DLBCL. #Sarcoidosis - likely stage 2. #Diffuse Large B-Cell Lymphoma - ILD Labs largely negative except for elevated Aldolase at 9.2. - PFTs consistent with restrictive pattern. - IR Renal Biopsy 09/29,results showing DLBCL. - Lymph node biopsy results showing granuloma formation and in conjunction with CT findings is concerning for sarcoidosis. - Baseline PFTs show decreased VC, RV and TLC with moderately decreased diffusio n capacity. - Had Bone Marrow Biopsy and Chest Port Placed 10/03. - Bronchoscopy biopsy results showed unremarkable respiratory mucosa. Negative f or granuloma or malignancy. Plan: > Recommend holding steroid administration during workup and initial treatment for the DLBCL as the lympho-toxic treatment may likely improve the granulomatous burden of her sarcoidosis. Will follow up in clinic after discharge for further steroid recommendations. > [facility] Labs sent with elevated Aldolase, will follow up results as above. > Continue incentive spirometry as ordered and supplemental O2 as needed.She will likely need continued O2 therapy given sarcoid findings. > Recommend fluid status managed by renal with dialysis. Case discussed with Dr. Read. ATTESTATION I personally performed the ruiz portions of the E/M visit, discussed case with re sident and concur with resident documentation of history, physical exam, assessm ent, and treatment plan unless otherwise noted. Reviewed PET scan results with findings of diffuse uptake due to lymphoma. At t his point, therapy for her lymphoma is far more important than sarcoid and thera py will likely still treat underlying sarcoid given it will target lymphocytes. Therefore would not recommend any systemic steroids solely for his sarcoid purp ose and we will follow her up as an outpatient with repeat imaging and PFTs. Staff name: Reji Read MD Date: 10/04/2019 Subjective Mary Tim is a 69 y.o. female. Patient reports feeling okay this morning, mostly tired from her procedures. She reported to the nurse that she was not hu ngry when she arrived back to her room and wanted to hold off on her AM medicati ons so she could get some sleep. She denied any new or worsening shortness of br eath or difficulty breathing. Medications Scheduled Meds:[MAR Hold] allopurinoL (ZYLOPRIM) tablet 100 mg, 100 mg, Oral, QD AY amitriptyline/gabapentin/emu oil(#) 4/4/10 % topical cream, , Topical, Q8H [MAY Hold] amLODIPine (NORVASC) tablet 10 mg, 10 mg, Oral, QDAY [MAY Hold] cyanocobalamin (VITAMIN B-12) tablet 1,000 mcg, 1,000 mcg, Oral, QDAY [MAY Hold] folic acid (FOLVITE) tablet 1 mg, 1 mg, Oral, QDAY [MAY Hold] heparin (porcine) PF syringe 5,000 Units, 5,000 Units, Subcutaneous, Q8H* [MAY Hold] mineral oil/hydrophilic petrolatum (AQUAPHOR, DERMAPHOR) topical oint ment, , Topical, QDAY [MAY Hold] polyethylene glycol 3350 (MIRALAX) packet 34 g, 2 packet, Oral, QDAY [MAY Hold] senna (SENOKOT) tablet 2 tablet, 2 tablet, Oral, QHS [MAY Hold] sodium bicarbonate tablet 650 mg, 650 mg, Oral, BID [MAY Hold] vitamins, multi B, C, Zn & folate (Renal) (NEPHPLEX RX) tablet 1 tablet, 1 tablet, Oral, QDAY Continuous Infusions: PRN and Respiratory Meds:[MAY Hold] bisacodyL QDAY PRN, [MAY Hold] calcium carbo vishal Q6H PRN, [MAY Hold] guaiFENesin Q4H PRN, hydrALAZINE Q6H PRN, [MAY Hold] HY DROcodone/acetaminophen Q6H PRN, labetalol (NORMODYNE; TRANDATE) injection Q6H P RN, [MAY Hold] melatonin QHS PRN, [MAY Hold] simethicone Q6H PRN, [MAY Hold] vit paz A & D PRN Review of Systems: A 14 point review of systems was negative except for: Constitutional: positive f or fatigue and malaise Respiratory: positive for cough, sputum or dyspnea on exertion Musculoskeletal: positive for some pain on her chest wall at the surgical site. Objective: Vital Signs: Last Filed Vital Signs: 24 Fernanda r Range BP: 117/62 (10/03 1015) Temp: 36.4 C (97.5 F) (10/03 1008) Pulse: 87 (10/03 1015) Respirations: 17 PER MINUTE (10/03 1015) SpO2: 95 % (10/03 1015) SpO2 Pulse: 87 (10/03 1015) Height: 162.6 cm (64.02") (10/02 1100) BP: (100-141)/(41-99) Temp: [36.2 C (97.2 F)-37 C (98.6 F)] Pulse: [78-106] Respirations: [15 PER MINUTE-32 PER MINUTE] SpO2: [73 %-99 %] Intensity Pain Scale (Self Report): 9 (10/04/19 0600) Intensity Pain Scale (Self Report): 9 (10/04/19 0600) Verbal Pain Description: Mild Pain (10/04/19 1015) Vitals: 10/02/19 1626 10/03/19 0750 10/03/19 1100 Weight: 75.1 kg (165 lb 9.1 oz) 72.9 kg (160 lb 11.5 oz) 69.9 kg (154 lb 1.6 oz) Intake/Output Summary: (Last 24 hours) Intake/Output Summary (Last 24 hours) at 10/04/2019 1043 Last data filed at 10/04/2019 0000 Gross per 24 hour Intake 390 ml Output 2502 ml Net -2112 ml Stool Occurrence: 1 Physical Exam General: Alert, no distress, conjunctival pallor. Somewhat somnolent on exam. Neck: Supple, nontender, trachea midline. Chest Wall: Bandage over operative sites for port placement CDI. Resp:Mild crackles throughout lung adan, improved from exam yesterday. CV: Regular rate and rhythm, S1, S2 normal, no murmur. Minimal peripheral edema. GI: Soft, non-tender. Bowel sounds normal. Neuro: No focal deficits, CN 2-12 grossly intact bilaterally, oriented x3. Psych: Appropriate affect given degree of somnolence. Lab Review 24-hour labs: Results for orders placed or performed during the hospital encounter of 09/17/19 (from the past 24 hour(s)) CELL COUNT W/DIFF-CSF Collection Time: 10/03/19 1:45 PM Result Value Ref Range Cell Count Tube,CSF TUBE 3 White Blood Cells,CSF 1 <5 /UL Red Blood Cells,CSF 0 /UL Lymphocytes, CSF 38 % Monocyte/Hisotocyte, CSF 62 % Clarity,CSF CLEAR Path Interpretation, CSF Pathologist Signature TOTAL PROTEIN-CSF Collection Time: 10/03/19 1:45 PM Result Value Ref Range Total Protein,CSF 30 15 - 45 MG/DL GLUCOSE-CSF Collection Time: 10/03/19 1:45 PM Result Value Ref Range Glucose,CSF 56 40 - 75 MG/DL Xanthochromia,CSF NONE LEUKEMIA/LYMPHOMA PANEL FLUID/TISSUE Collection Time: 10/03/19 1:45 PM Result Value Ref Range Leuk/Lymph Interpretation SEE PATHOLOGY REPORT Specimen/LLM CSF CSF TUBE VOLUMES Collection Time: 10/03/19 1:45 PM Result Value Ref Range CSF Tube 1 3.0 mL CSF Tube 2 3.0 mL CSF Tube 3 2.0 mL CSF Tube 4 0.0 mL PROTIME INR (PT) Collection Time: 10/04/19 6:54 AM Result Value Ref Range INR 1.4 (H) 0.8 - 1.2 CBC AND DIFF Collection Time: 10/04/19 6:54 AM Result Value Ref Range White Blood Cells 8.5 4.5 - 11.0 K/UL RBC 2.57 (L) 4.0 - 5.0 M/UL Hemoglobin 7.8 (L) 12.0 - 15.0 GM/DL Hematocrit 23.0 (L) 36 - 45 % MCV 89.6 80 - 100 FL MCH 30.2 26 - 34 PG MCHC 33.7 32.0 - 36.0 G/DL RDW 13.3 11 - 15 % Platelet Count 244 150 - 400 K/UL MPV 6.4 (L) 7 - 11 FL Neutrophils 79 (H) 41 - 77 % Lymphocytes 5 (L) 24 - 44 % Monocytes 12 4 - 12 % Eosinophils 3 0 - 5 % Basophils 1 0 - 2 % Absolute Neutrophil Count 6.86 1.8 - 7.0 K/UL Absolute Lymph Count 0.40 (L) 1.0 - 4.8 K/UL Absolute Monocyte Count 0.99 (H) 0 - 0.80 K/UL Absolute Eosinophil Count 0.22 0 - 0.45 K/UL Absolute Basophil Count 0.06 0 - 0.20 K/UL BASIC METABOLIC PANEL Collection Time: 10/04/19 6:54 AM Result Value Ref Range Sodium 142 137 - 147 MMOL/L Potassium 3.4 (L) 3.5 - 5.1 MMOL/L Chloride 100 98 - 110 MMOL/L CO2 28 21 - 30 MMOL/L Anion Gap 14 (H) 3 - 12 Glucose 87 70 - 100 MG/DL Blood Urea Nitrogen 37 (H) 7 - 25 MG/DL Creatinine 4.09 (H) 0.4 - 1.00 MG/DL Calcium 8.6 8.5 - 10.6 MG/DL eGFR Non 11 (L) >60 mL/min eGFR 13 (L) >60 mL/min MAGNESIUM Collection Time: 10/04/19 6:54 AM Result Value Ref Range Magnesium 2.0 1.6 - 2.6 mg/dL PHOSPHORUS Collection Time: 10/04/19 6:54 AM Result Value Ref Range Phosphorus 4.3 2.0 - 4.5 MG/DL LDH-LACTATE DEHYDROGENASE Collection Time: 10/04/19 6:54 AM Result Value Ref Range Lactate Dehydrogenase 494 (H) 100 - 210 U/L MANUAL DIFF Collection Time: 10/04/19 6:54 AM Result Value Ref Range Segmented Neutrophils 78 (H) 41 - 77 % Lymphocytes 4 (L) 24 - 44 % Monocytes 17 (H) 4 - 12 % Eosinophil 1 0 - 5 % Platelet Estimate NORMAL RBC Morph POLY OVALO Point of Care Testing (Last 24 hours) Glucose: 87 (10/04/19 0654) Radiology and other Diagnostics Review: Pertinent radiology reviewed. Ben Stinson MD Pager [phone] * Brenda Bui RN - 10/04/2019 9:18 AM CDT Sedation physician present in room. Recent vitals and patient condition reviewe d between sedating physician and nurse. Reassessment completed. Determination made to proceed with planned sedation. * Yisel Carlos MD - 10/04/2019 8:36 AM CDT ATTESTATION I personally performed or re-performed the history, physical exam and treatment for the E/M. I discussed the case with the Medical Student, and concur with the Medical Student documentation of history, physical exam and treatment plan unles s otherwise noted. Staff name: Yisel Carlos MD Date: 10/04/2019 General Progress Note Name: Mary Tim Today's Date: 10/04/2019 Admission Date: 09/17/2019 LOS: 16 days Assessment/Plan: Principal Problem: Acute renal failure (ARF) (HCC) Active Problems: Hyperkalemia High anion gap metabolic acidosis UTI (urinary tract infection) Physical debility ILD (interstitial lung disease) (HCC) Anemia Abnormal CT of the chest Abnormal abdominal CT scan Elevated CA 19-9 level 69 y.o.femalewith PMHx ofHTN and cervical (C3-C7) and lumbar (L3-L5) spina l fusionswho presentedfor progressively worsening weakness and fatigue and w as found to have acute renal failure with hyperkalemia and anion gap metabolic a cidosis SuspectedDLBCL - Renal biopsy from 09/28 shows pathology that is consistent with DLBCL >Pathology report:Immunohistochemical and in situ hybridization stains performed on A1 show the tumor cells are positive for CD20, CD10(60%), BCL2, BCL6 (10%), MIB-1 (60%), MUM-1 (40%) and negative for CD3, CD5, CD30 (less than 1%), cyclin D1, cMYC, EBV. These findings are consistent with DLBCL, germinal center subtype. > TTE done on 09/18; unremarkable. LVEF of >65%, no valvular abnormalaties or wall motion abnormalities - PET scan 10/02: Hypermetabolic michael, extensive extranodal (including pulmonary , hepatic, adrenal, renal, gastric, and pancreatic), and multifocal osseous invo lvement by lymphoma Plan - Hematology consulted and they will start the staging process > Ki-67 stain pending from pathology > Pending EM results on kidney bx > f/u LP final report > BM bx today > port placement today for chemotherapy >TLS Labs ordered, required daily as she is at risk for lysis; currently stable Ca 8.6, PO4 4.3, K 3.4. Allopurinol 100mg daily started >Elevateduric acid, LDH elevated at 494,and pendingbeta-2 microglobulin labs ROSHAN;likely due to DLBCL infiltration and or sarcoidosis - likely ATN, Nephrology noted muddy brown casts and pyuria on microscopy - 7 at presentation, small improvement with IVF - Renal US unremarkable - UPr:Cr 0.9, - Renal consulted, discussed with . Plan to replace Zambrano given diste nded urinary bladder and large kidneys and renal pelvis. -pathology of renal bx shows DLBCL; see above - HD line placed - It is unknown if kidneys will regain sufficient function to not need HD. Unabl e to determine ESRD status for another 3 months. Additionally, will depend on DL BCL response. Plan -MonitorI&Os - BMP QD - Nephrology recommends terminal block assembler HD treatment with TTS schedule. Abnormal CT abdomen pelvis;concern for systemic diseaseor disseminated DLBCL - CT abdomen pelvis was done for evaluation of liver lesion seen on CT chest. - Patient has minimal symptoms of vague abdominal discomfort and constipation - CT abdomenandpelvis showed multiple findings abnormalities involving the l iver, gallbladder, kidneys, right adrenal gland and retroperitoneum. Leading con sideration is lymphoma. Erdheim-Lancaster disease and IgG-4 related disease are ad ditional considerations. >Mild diffuse enlargement of the kidneys with ill-defined soft tissue thickening in the renal pelves and asymmetric perinephric stranding. Mild nodular enlargement of the right adrenal gland with ill-defined stranding. Mild central retroperitoneal lymphadenopathy. Mild diffuse soft tissue thickening in the presacral space in the pelvis may represent additional lymphadenopathy. Multiple small hypodense hepatic lesions. Diffuse enlargement of the gallbladder with pericystic stranding. Acute cholecystitis should also be considered for this finding.. Abnormal low attenuation tissue in the body and tail of the pancreas with a small calculus towards the midline. This low-attenuation tissue most likely represents a dilated main pancreatic duct. -lipase 118, CA-19 93 - Elevated alk phos, concern for DLBCL give recent kidney bx results - Based on PET scan, there is likely lymphoma infiltration of the liver, pancrea s, and stomach Plan -f/uflow cytometry -GI consulted consult; EUS will be on hold. It is non-urgent, can be done as o utpt once patient is more stable UTI, resolved -UA shows blood and pyuria - UCx with e. coli and enterobacter.Sensitive to Rocephin - completedrocephin for 7 days09/25 Hyperkalemia - aggressively treated prior to transfer - continue to monitor Constipation - Miralax, senokot, suppository AGMA, improved -Sodium Bicarb tablet 650mg PO BID -Monitor Acute Hypoxic Respiratory Failure Dyspnea, Fatigue; CT chestconcerning for ILD: Sarcoidosis and or DLBCL infiltr ation - CXR at OSH without acute process - Echo normal - Repeat chest x-ray showed areas offibrosis, suprabasal opacities may be due to atelectasis, pneumonia and/or scarring. - CT chest showedright greater than left peribronchovascular and subpleural re ticulation and architectural distortion with mid lung zone predominance most com patible with fibrosing interstitial lung disease. -Leading considerations for this pattern of fibrosis would include sarcoidosis especially given mediastinal and hilar lymph nodes or potentially the fibrotic form of hypersensitivity pneumonitis. - Does have arthritic pain in her hand joints and feet,family history of lupus - BAL was unremarkable - ILD Labs largely negative except for elevated Aldolase at 9.2. - Urine Ca random 0.7 and IgG4 within normal range. - PFTs consistent with restrictive pattern - New developing cough with sputum production reported 09/29; audible crackles he keyanna on auscultation at RLL - Bronch Bx shows granuloma formation, consistent with sarcoidosis - CXR 10/01 shows signs concerning for increased patchy bilateral opacities, most pronounced in the right upper and left midlung; could reflect worsening acute exacerbation of underlying interstitial lung disease versus multifocal pneumonia. Follow-up chest radiogra phs suggested. - BNP 10/01 is elevated at 420, likely due to acute renal failure Plan - Pulmonology consulted -Plan for EUS, currently not urgent, postponed for outpt f/u -Attention on short-term follow-up CT in 3 months time to reassess. -[place]-Marker Panel Labs sent with elevated Aldolase, will follow up results as above. -Continue incentive spirometry as ordered and supplemental O2 as needed - hold 40mg prednisone for now while DLBCL work up is happening HTN - hold CECE, HCTZ - Blood pressure mildly elevated.On [id number] -BP control, less than 140/90. Labetalol prn, hydralazine prn, Chronic Back Pain -conthydrocodone - emu oil prn Normocytic Anemia - Status post 1 PRBC09/24.hemoglobin around 10.Transfuse if hemoglobin less than 7 - Iron studies showed mixed picture of iron deficiency and anemia of chronic d isease - B12 and folate low, started replacement - LDH elevated. Haptoglobin normal. Peripheral smear showed normocytic anemia. Absolute lymphocytopenia. Mild monocytosis. Mild Transaminitis, resolved - hepatitis panel; negative - trend Physical debility - PT OT eval.recommending inpatient.Patient agreeable for rehab. SW To ashli t with placement FEN: No IVF, BMP Q,NPO today Code: Full, discussed on admit PPx: HsQ Dispo: Continue inpatient forevaluation and management ofpersistent severe A KI, anemia andgrossly abnormal CT chest and abdomen pelvis concerning for a sy stemic disease. PT OT recommending inpatient Subjective Mary Tim is a 69 y.o. female. Patient reports better sleep quality overn ight after taking medication to help her sleep. She still reports abdominal and back pain. Denies f/c/n/v. She describes some SOB. Medications Scheduled Meds:allopurinoL (ZYLOPRIM) tablet 100 mg, 100 mg, Oral, QDAY amitriptyline/gabapentin/emu oil(#) 4/4/10 % topical cream, , Topical, Q8H amLODIPine (NORVASC) tablet 10 mg, 10 mg, Oral, QDAY cyanocobalamin (VITAMIN B-12) tablet 1,000 mcg, 1,000 mcg, Oral, QDAY folic acid (FOLVITE) tablet 1 mg, 1 mg, Oral, QDAY heparin (porcine) PF syringe 5,000 Units, 5,000 Units, Subcutaneous, Q8H* mineral oil/hydrophilic petrolatum (AQUAPHOR, DERMAPHOR) topical ointment, , Top ical, QDAY polyethylene glycol 3350 (MIRALAX) packet 34 g, 2 packet, Oral, QDAY senna (SENOKOT) tablet 2 tablet, 2 tablet, Oral, QHS sodium bicarbonate tablet 650 mg, 650 mg, Oral, BID vitamins, multi B, C, Zn & folate (Renal) (NEPHPLEX RX) tablet 1 tablet, 1 tablet, Oral, QDAY Continuous Infusions: PRN and Respiratory Meds:bisacodyL QDAY PRN, calcium carbonate Q6H PRN, guaiFENe sin Q4H PRN, hydrALAZINE Q6H PRN, HYDROcodone/acetaminophen Q6H PRN, labetalol ( NORMODYNE; TRANDATE) injection Q6H PRN, melatonin QHS PRN, simethicone Q6H PRN, vitamin A & D PRN Review of Systems: Respiratory:negative, positive forcough, increased work of breathing, wheezi ng, dyspnea on exertion orhypoxia GI: mild abdominal pain, denies N/V MSK: moderate back pain Objective: Vital Signs: Last Filed Vital Signs: 24 Fernanda r Range BP: 125/61 (10/03 340) Temp: 36.3 C (97.4 F) (10/03 340) Pulse: 87 (10/03 340) Respirations: 18 PER MINUTE (10/03 340) SpO2: 95 % (10/03 340) SpO2 Pulse: 104 (10/02 1400) Height: 162.6 cm (64.02") (10/02 1100) BP: (109-141)/(48-92) Temp: [36.2 C (97.2 F)-37 C (98.6 F)] Pulse: [78-106] Respirations: [17 PER MINUTE-32 PER MINUTE] SpO2: [73 %-99 %] Intensity Pain Scale (Self Report): 9 (10/04/19 0600) Intensity Pain Scale (Self Report): 9 (10/04/19 0600) Vitals: 10/02/19 1626 10/03/19 0750 10/03/19 1100 Weight: 75.1 kg (165 lb 9.1 oz) 72.9 kg (160 lb 11.5 oz) 69.9 kg (154 lb 1.6 oz) Intake/Output Summary: (Last 24 hours) Intake/Output Summary (Last 24 hours) at 10/04/2019 0836 Last data filed at 10/04/2019 0000 Gross per 24 hour Intake 390 ml Output 2502 ml Net -2112 ml Stool Occurrence: 1 Physical Exam General: Alert, no distress. Conjunctival pallor Neck: Supple, nontender,+ HJR/JVD or lymphadenopathy Resp:Coarse rales and crackles at RLL. Diffuse rales. CV: Regular rate and rhythm, S1, S2 normal, no murmur. No peripheral edema. GI: Soft, moderately tender. Bowel sounds normal. Neuro: No focal deficits, CN 2-12 grossly intact bilaterally, oriented x3 Psych: normal affect and mood, remote and recent memory intact Lab Review Hematology: Lab Results Component Value Date HGB 7.8 10/04/2019 HCT 23.0 10/04/2019 PLTCT 244 10/04/2019 WBC 8.5 10/04/2019 NEUT 79 10/04/2019 ANC 6.86 10/04/2019 ALC 0.40 10/04/2019 WILLIE 12 10/04/2019 AMC 0.99 10/04/2019 ABC 0.06 10/04/2019 MCV 89.6 10/04/2019 MCHC 33.7 10/04/2019 MPV 6.4 10/04/2019 RDW 13.3 10/04/2019 and General Chemistry: Lab Results Component Value Date NA 142 10/04/2019 K 3.4 10/04/2019 CL 100 10/04/2019 GAP 14 10/04/2019 BUN 37 10/04/2019 CR 4.09 10/04/2019 GLU 87 10/04/2019 CA 8.6 10/04/2019 ALBUMIN 2.7 10/01/2019 LACTIC 2.1 09/27/2019 MG 2.0 10/04/2019 TOTBILI 0.4 10/01/2019 Point of Care Testing (Last 24 hours) Glucose: 87 (10/04/19 0654) Radiology and other Diagnostics Review: Pertinent radiology reviewed. Jade Bejarano, * Bebeto Wagner MD - 10/03/2019 6:05 PM CDT Brief hematology update Diagnostic LP done today. PET scan done today. Port to be placed tomorrow. Will decide in AM if need a bone marrow biopsy, base d on PET scan results. - Continue 100 allopurinol daily - Continue TLS labs- Uric acid, LDH - BMP and CBC qday Angelica Wagner MD PGY 4 Hematology Oncology Discussed with Dr. Kemp * Ben Stinson MD - 10/03/2019 2:18 PM CDT Pulmonary Progress Note Name: Mary Tim Today's Date: 10/03/2019 Admission Date: 09/17/2019 LOS: 15 days Assessment/Plan: Principal Problem: Acute renal failure (ARF) (HCC) Active Problems: Hyperkalemia High anion gap metabolic acidosis UTI (urinary tract infection) Physical debility ILD (interstitial lung disease) (HCC) Anemia Abnormal CT of the chest Abnormal abdominal CT scan Elevated CA 19-9 level Ms. Tim is a69 yo F with PMH of HTN, cervical and lumbar spinal fusions, r eported RA who is admitted withacute renal failure, found to have abnormal kavon st CT findings concerning for sarcoidosis and renal biopsy showing DLBCL. #Abnormal chest CT- Patchy interstitial opacities associated with airways,terry spicious for sarcoidosisversushypersensitivity pneumonitis. #Sarcoidosis - likely stage 2. #Diffuse Large B-Cell Lymphoma - ILD Labs largely negative except for elevated Aldolase at 9.2. - PFTs consistent with restrictive pattern. - IR Renal Biopsy 09/29, results showing DLBCL. - Lymph node biopsy results showing granuloma formation and in conjunction with CT findings is concerning for sarcoidosis. - Baseline PFTs show decreased VC, RV and TLC with moderately decreased diffusio n capacity. Plan: > Bronchoscopy biopsy results pending, will follow up results and continue workup as outpatient. > [facility]My[facility] MarkerPanel Labs sent with elevated Aldolase, will follow up results as above. > Continue incentive spirometry as ordered and supplemental O2 as needed. She will likely need continued O2 therapy given sarcoid findings. > For her Sarcoid: Would recommend starting on Prednisone 40mg daily for two weeks and then reducing to 20mg daily indefinitely, pending hematology workup. Would not start until they recommend okay to do so. > Will schedule pulmonology follow up in 6 weeks. > Recommend fluid status managed by renal with dialysis. Case discussed with Dr. Read. Subjective Mary Tim is a 69 y.o. female. Patient feels that her shortness of breath is largely unchanged from yesterday. She is still requiring the oxygen and says that if she is taken off of it, she continues to feel dizzy, which resolves when placed back on O2. Medications Scheduled Meds:[MAY Hold] allopurinoL (ZYLOPRIM) tablet 100 mg, 100 mg, Oral, QD AY amitriptyline/gabapentin/emu oil(#) 4/4/10 % topical cream, , Topical, Q8H [MAY Hold] amLODIPine (NORVASC) tablet 10 mg, 10 mg, Oral, QDAY [MAY Hold] cyanocobalamin (VITAMIN B-12) tablet 1,000 mcg, 1,000 mcg, Oral, QDAY [MAY Hold] folic acid (FOLVITE) tablet 1 mg, 1 mg, Oral, QDAY [MAY Hold] heparin (porcine) PF syringe 5,000 Units, 5,000 Units, Subcutaneous, Q8H* [MAY Hold] mineral oil/hydrophilic petrolatum (AQUAPHOR, DERMAPHOR) topical oint ment, , Topical, QDAY [MAY Hold] polyethylene glycol 3350 (MIRALAX) packet 34 g, 2 packet, Oral, QDAY [MAY Hold] senna (SENOKOT) tablet 2 tablet, 2 tablet, Oral, QHS [MAY Hold] sodium bicarbonate tablet 650 mg, 650 mg, Oral, BID [MAY Hold] vitamins, multi B, C, Zn & folate (Renal) (NEPHPLEX RX) tablet 1 tablet, 1 tablet, Oral, QDAY Continuous Infusions: PRN and Respiratory Meds:[MAY Hold] bisacodyL QDAY PRN, [MAY Hold] calcium carbo vishal Q6H PRN, hydrALAZINE Q6H PRN, [MAY Hold] HYDROcodone/acetaminophen Q6H PRN, labetalol (NORMODYNE; TRANDATE) injection Q6H PRN, [MAY Hold] melatonin QHS PRN, [MAY Hold] simethicone Q6H PRN, [MAY Hold] vitamin A & D PRN Review of Systems: A 14 point review of systems was negative except for: Constitutional: positive for fatigue Respiratory: positive for cough, sputum or dyspnea on exertion. Objective: Vital Signs: Last Filed Vital Signs: 24 Fernanda r Range BP: 141/58 (10/02 1400) Temp: 37 C (98.6 F) (10/02 1240) Pulse: 101 (10/02 1400) Respirations: 29 PER MINUTE (10/02 1400) SpO2: 97 % (10/02 1400) SpO2 Pulse: 104 (10/02 1400) Height: 162.6 cm (64.02") (10/02 1100) BP: (100-147)/(48-85) Temp: [36.4 C (97.5 F)-37 C (98.6 F)] Pulse: [79-106] Respirations: [14 PER MINUTE-32 PER MINUTE] SpO2: [73 %-99 %] Intensity Pain Scale (Self Report): 8 (10/03/19 0020) Intensity Pain Scale (Self Report): 6 (10/02/19 1654) Vitals: 10/02/19 1626 10/03/19 0750 10/03/19 1100 Weight: 75.1 kg (165 lb 9.1 oz) 72.9 kg (160 lb 11.5 oz) 69.9 kg (154 lb 1.6 oz) Intake/Output Summary: (Last 24 hours) Intake/Output Summary (Last 24 hours) at 10/03/2019 1418 Last data filed at 10/03/2019 1050 Gross per 24 hour Intake 810 ml Output 4478 ml Net -3668 ml Stool Occurrence: 1 Physical Exam General: Alert, no distress, conjunctival pallor. Neck: Supple, nontender, trachea midline Resp:Coarse ralesand wheezes throughout lung adan similar to yesterday. CV: Regular rate and rhythm, S1, S2 normal, no murmur. No peripheral edema. GI: Soft, non-tender. Bowel sounds normal. Neuro: No focal deficits, CN 2-12 grossly intact bilaterally, oriented x3. Psych: somewhat flattened affect and mood. Lab Review 24-hour labs: Results for orders placed or performed during the hospital encounter of 09/17/19 (from the past 24 hour(s)) BASIC METABOLIC PANEL Collection Time: 10/03/19 10:36 AM Result Value Ref Range Sodium 138 137 - 147 MMOL/L Potassium 3.0 (L) 3.5 - 5.1 MMOL/L Chloride 97 (L) 98 - 110 MMOL/L CO2 29 21 - 30 MMOL/L Anion Gap 12 3 - 12 Glucose 82 70 - 100 MG/DL Blood Urea Nitrogen 16 7 - 25 MG/DL Creatinine 1.99 (H) 0.4 - 1.00 MG/DL Calcium 8.6 8.5 - 10.6 MG/DL eGFR Non 25 (L) >60 mL/min eGFR 30 (L) >60 mL/min CBC AND DIFF Collection Time: 10/03/19 10:36 AM Result Value Ref Range White Blood Cells 9.0 4.5 - 11.0 K/UL RBC 2.75 (L) 4.0 - 5.0 M/UL Hemoglobin 8.5 (L) 12.0 - 15.0 GM/DL Hematocrit 24.8 (L) 36 - 45 % MCV 89.9 80 - 100 FL MCH 30.7 26 - 34 PG MCHC 34.2 32.0 - 36.0 G/DL RDW 13.4 11 - 15 % Platelet Count 248 150 - 400 K/UL MPV 6.4 (L) 7 - 11 FL Neutrophils 83 (H) 41 - 77 % Lymphocytes 4 (L) 24 - 44 % Monocytes 10 4 - 12 % Eosinophils 2 0 - 5 % Basophils 1 0 - 2 % Absolute Neutrophil Count 7.50 (H) 1.8 - 7.0 K/UL Absolute Lymph Count 0.36 (L) 1.0 - 4.8 K/UL Absolute Monocyte Count 0.90 (H) 0 - 0.80 K/UL Absolute Eosinophil Count 0.19 0 - 0.45 K/UL Absolute Basophil Count 0.05 0 - 0.20 K/UL LDH-LACTATE DEHYDROGENASE Collection Time: 10/03/19 10:36 AM Result Value Ref Range Lactate Dehydrogenase 586 (H) 100 - 210 U/L MAGNESIUM Collection Time: 10/03/19 10:36 AM Result Value Ref Range Magnesium 1.8 1.6 - 2.6 mg/dL PHOSPHORUS Collection Time: 10/03/19 10:36 AM Result Value Ref Range Phosphorus 1.7 (L) 2.0 - 4.5 MG/DL PROTIME INR (PT) Collection Time: 10/03/19 10:36 AM Result Value Ref Range INR 1.3 (H) 0.8 - 1.2 CSF TUBE VOLUMES Collection Time: 10/03/19 1:45 PM Result Value Ref Range CSF Tube 1 3.0 mL CSF Tube 2 3.0 mL CSF Tube 3 2.0 mL CSF Tube 4 0.0 mL Point of Care Testing (Last 24 hours) Glucose: 82 (10/03/19 1036) Radiology and other Diagnostics Review: Pertinent radiology reviewed. Ben Stinson MD Pager [phone] Associated attestation - Reji Read MD - 10/03/2019 2:51 PM CDT ATTESTATION I personally performed the ruiz portions of the E/M visit, discussed case with re sident and concur with resident documentation of history, physical exam, assessm ent, and treatment plan unless otherwise noted. Staff name: Reji Read MD Date: 10/03/2019 * Maris Erazo - 10/03/2019 1:12 PM CDT PHYSICAL THERAPY NOTE Name: Mary Tim : 1950 Age: [age] y.o. Admission Date: 09/17/2019 LOS: 15 days Not available- patient in IR for LP. Patient will be on bedrest following proced ure. Will follow up 10/03 Therapist: Maris Erazo Date: 10/03/2019 * Kenji Peña DO - 10/03/2019 12:48 PM CDT Renal Progress Note Name: Mary Tim Today's Date: 10/03/2019 Admission Date: 09/17/2019 LOS: 15 days Assessment/Plan: Principal Problem: Acute renal failure (ARF) (HCC) Active Problems: Hyperkalemia High anion gap metabolic acidosis UTI (urinary tract infection) Physical debility ILD (interstitial lung disease) (HCC) Anemia Abnormal CT of the chest Abnormal abdominal CT scan Elevated CA 19-9 level Ms. Tim is a69 yo F with PMH of HTN, cervical and lumbar spinal fusions, r eported RA who is admitted for ROSHAN. Developed anuric ROSHAN requiring intermittent HD. Renal biopsy with DLBCL. 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 300/500 with 1-2L UF. Patient seen on dialysis - Appreciate hematology input. Plan for LP and PET today. - Too early to determine if patient will recover any reasonable renal function f ollowing the treatment of DLBCL. Unable to determine ESRD status for another 3 m onths. Additionally, will depend on DLBCL response. - Ideally would plan for intermittent HD TTS schedule - Continue with Renal HD diet - Monitor daily weights - Avoid NSAIDs and contrast if possible - Avoid nephrotoxic medications - Renally dose medications - We will continue to follow - Please page with questions Sharron Oakley, MS4 The patient was assessed and the appropriate management was discussed with Dr. Karine Peña D.O. Nephrology Fellow Pager #: This note was composed with Dragon Dictation. As such, there may be transcriptio nal errors. For questions, please contact Dr. Peña. Subjective Mary Tim is a 69 y.o. female. Patient reports feeling "OK" this morning o n dialysis, and was grateful to have been able to eat yesterday evening. She sle pt poorly last night. She reports continued pain in her abdomen, and states she has been coughing a bit more with some greenish sputum production. Medications Scheduled Meds:[MAR Hold] allopurinoL (ZYLOPRIM) tablet 100 mg, 100 mg, Oral, QD AY amitriptyline/gabapentin/emu oil(#) 4/4/10 % topical cream, , Topical, Q8H [MAR Hold] amLODIPine (NORVASC) tablet 10 mg, 10 mg, Oral, QDAY [MAR Hold] cyanocobalamin (VITAMIN B-12) tablet 1,000 mcg, 1,000 mcg, Oral, QDAY [MAY Hold] folic acid (FOLVITE) tablet 1 mg, 1 mg, Oral, QDAY [MAY Hold] heparin (porcine) PF syringe 5,000 Units, 5,000 Units, Subcutaneous, Q8H* [MAY Hold] mineral oil/hydrophilic petrolatum (AQUAPHOR, DERMAPHOR) topical oint ment, , Topical, QDAY [MAY Hold] polyethylene glycol 3350 (MIRALAX) packet 34 g, 2 packet, Oral, QDAY [MAY Hold] senna (SENOKOT) tablet 2 tablet, 2 tablet, Oral, QHS [MAY Hold] sodium bicarbonate tablet 650 mg, 650 mg, Oral, BID [MAY Hold] vitamins, multi B, C, Zn & folate (Renal) (NEPHPLEX RX) tablet 1 tablet, 1 tablet, Oral, QDAY Continuous Infusions: PRN and Respiratory Meds:[MAY Hold] bisacodyL QDAY PRN, [MAY Hold] calcium carbo vishal Q6H PRN, hydrALAZINE Q6H PRN, [MAY Hold] HYDROcodone/acetaminophen Q6H PRN, labetalol (NORMODYNE; TRANDATE) injection Q6H PRN, [MAY Hold] melatonin QHS PRN, [MAY Hold] simethicone Q6H PRN, [MAY Hold] vitamin A & D PRN Review of Systems: Constitutional: positive for fatigue, negative for fevers and chills Respiratory: positive for dyspnea on exertion and cough with sputum production Cardiovascular: negative for chest pain, palpitations, orthopnea Gastrointestinal: positive for abdominal pain, negative for nausea, vomiting, di arrhea and constipation Objective: Vital Signs: Last Filed Vital Signs: 24 Fernanda r Range BP: 141/58 (10/02 1400) Temp: 37 C (98.6 F) (10/02 1240) Pulse: 101 (10/02 1400) Respirations: 29 PER MINUTE (10/02 1400) SpO2: 97 % (10/02 1400) SpO2 Pulse: 104 (10/02 1400) Height: 162.6 cm (64.02") (10/02 1100) BP: (105-147)/(48-74) Temp: [36.4 C (97.5 F)-37 C (98.6 F)] Pulse: [80-106] Respirations: [15 PER MINUTE-32 PER MINUTE] SpO2: [73 %-99 %] Intensity Pain Scale (Self Report): 8 (10/03/19 0020) Intensity Pain Scale (Self Report): 6 (10/02/19 1654) Vitals: 10/02/19 1626 10/03/19 0750 10/03/19 1100 Weight: 75.1 kg (165 lb 9.1 oz) 72.9 kg (160 lb 11.5 oz) 69.9 kg (154 lb 1.6 oz) Intake/Output Summary: (Last 24 hours) Intake/Output Summary (Last 24 hours) at 10/03/2019 1607 Last data filed at 10/03/2019 1050 Gross per 24 hour Intake 810 ml Output 4478 ml Net -3668 ml Stool Occurrence: 1 Physical Exam General: Well-appearing and in no apparent distress. Neuro: Alert and oriented to person, place, and time. Cardio: Regular rate and rhythm without murmur or rub. No JVD appreciated. Pulmonary: Diffuse crackles on auscultation bilaterally. GI: Normal bowel sounds x4. Mild diffuse abdominal TTP. MSK: Trace lower extremity edema appreciated. Lab Review 24-hour labs: Results for orders placed or performed during the hospital encounter of 09/17/19 (from the past 24 hour(s)) BASIC METABOLIC PANEL Collection Time: 10/03/19 10:36 AM Result Value Ref Range Sodium 138 137 - 147 MMOL/L Potassium 3.0 (L) 3.5 - 5.1 MMOL/L Chloride 97 (L) 98 - 110 MMOL/L CO2 29 21 - 30 MMOL/L Anion Gap 12 3 - 12 Glucose 82 70 - 100 MG/DL Blood Urea Nitrogen 16 7 - 25 MG/DL Creatinine 1.99 (H) 0.4 - 1.00 MG/DL Calcium 8.6 8.5 - 10.6 MG/DL eGFR Non 25 (L) >60 mL/min eGFR 30 (L) >60 mL/min CBC AND DIFF Collection Time: 10/03/19 10:36 AM Result Value Ref Range White Blood Cells 9.0 4.5 - 11.0 K/UL RBC 2.75 (L) 4.0 - 5.0 M/UL Hemoglobin 8.5 (L) 12.0 - 15.0 GM/DL Hematocrit 24.8 (L) 36 - 45 % MCV 89.9 80 - 100 FL MCH 30.7 26 - 34 PG MCHC 34.2 32.0 - 36.0 G/DL RDW 13.4 11 - 15 % Platelet Count 248 150 - 400 K/UL MPV 6.4 (L) 7 - 11 FL Neutrophils 83 (H) 41 - 77 % Lymphocytes 4 (L) 24 - 44 % Monocytes 10 4 - 12 % Eosinophils 2 0 - 5 % Basophils 1 0 - 2 % Absolute Neutrophil Count 7.50 (H) 1.8 - 7.0 K/UL Absolute Lymph Count 0.36 (L) 1.0 - 4.8 K/UL Absolute Monocyte Count 0.90 (H) 0 - 0.80 K/UL Absolute Eosinophil Count 0.19 0 - 0.45 K/UL Absolute Basophil Count 0.05 0 - 0.20 K/UL LDH-LACTATE DEHYDROGENASE Collection Time: 10/03/19 10:36 AM Result Value Ref Range Lactate Dehydrogenase 586 (H) 100 - 210 U/L MAGNESIUM Collection Time: 10/03/19 10:36 AM Result Value Ref Range Magnesium 1.8 1.6 - 2.6 mg/dL PHOSPHORUS Collection Time: 10/03/19 10:36 AM Result Value Ref Range Phosphorus 1.7 (L) 2.0 - 4.5 MG/DL PROTIME INR (PT) Collection Time: 10/03/19 10:36 AM Result Value Ref Range INR 1.3 (H) 0.8 - 1.2 TOTAL PROTEIN-CSF Collection Time: 10/03/19 1:45 PM Result Value Ref Range Total Protein,CSF 30 15 - 45 MG/DL GLUCOSE-CSF Collection Time: 10/03/19 1:45 PM Result Value Ref Range Glucose,CSF 56 40 - 75 MG/DL Xanthochromia,CSF NONE LEUKEMIA/LYMPHOMA PANEL FLUID/TISSUE Collection Time: 10/03/19 1:45 PM Result Value Ref Range Leuk/Lymph Interpretation SEE PATHOLOGY REPORT Specimen/LLM CSF CSF TUBE VOLUMES Collection Time: 10/03/19 1:45 PM Result Value Ref Range CSF Tube 1 3.0 mL CSF Tube 2 3.0 mL CSF Tube 3 2.0 mL CSF Tube 4 0.0 mL Point of Care Testing (Last 24 hours) Glucose: 82 (10/03/19 1036) Radiology and other Diagnostics Review: IR LUMBAR PUNCTURE Final Result Diagnostic lumbar puncture. I, Sourav Coon M.D., the attending interventional radiologist, performed the entire procedure, personally reviewed the images, and formulated the interpr etations and opinions expressed in this report. @TT Finalized by Sourav Coon M.D. on 10/03/2019 1:56 PM. Dictated by Sourav reed M.D. on 10/03/2019 1:56 PM. CHEST 2 VIEWS Final Result 1. Increased patchy bilateral opacities, most pronounced in the right upper and left midlung. These findings could reflect worsening acute exacerbation of unde rlying interstitial lung disease versus multifocal pneumonia. Follow-up chest ra diographs suggested. 2. Small bilateral pleural effusions. By my electronic signature, I attest that I have personally reviewed the images for this examination and formulated the interpretations and opinions expressed i n this report Finalized by Eric Brennan M.D. on 10/02/2019 2:32 PM. Dictated by Trevin Quiros M.D. on 10/02/2019 2:02 PM. IR CENTRAL VENOUS CATHETER Final Result Successful image-guided placement of tunneled hemodialysis catheter. IJonathan M.D, the attending radiologist, was present for the criti luis fernando and ruiz portions of the procedure with an advanced practice provider, reside nt, and/or fellow participating. Overlapping portions were non ruiz and I was im mediately available. I interpret the critical and ruiz portion of this procedure to have been the procedural time out and needle access. @TT Approved by Alonso Farfan D.O. on 10/01/2019 1:39 PM By my electronic signature, I attest that I have personally reviewed the images for this examination and formulated the interpretations and opinions expressed i n this report Finalized by Jonathan Shirley M.D. on 10/01/2019 1:45 PM. Dictated by Alonso Farfan D.O. on 10/01/2019 1:37 PM. IR RENAL BIOPSY Final Result Successful ultrasound guided left kidney biopsy as described. Specimen was co nfirmed adequate by the cytopathologist at time of procedure. IMak M.D., the attending radiologist, was present for the procedure, pe rsonally reviewed the images, and formulated the interpretations and opinions ex pressed in this report. @TT Finalized by MAK LYNCH on 09/30/2019 1:35 PM. Dictated by MAK LYNCH on 09/30/2019 1:[address] ABD/PELV WO CONTRAST Final Result 1. Abnormalities involving the liver, gallbladder, kidneys, right adrenal gland and retroperitoneum. Leading consideration is lymphoma. Erdheim-Lancaster disease and IgG-4 related disease are additional considerations. 2. Mild diffuse enlargement of the kidneys with ill-defined soft tissue thickeni ng in the renal pelves and asymmetric perinephric stranding. 3. Mild nodular enlargement of the right adrenal gland with ill-defined strandin g. 4. Mild central retroperitoneal lymphadenopathy. Mild diffuse soft tissue thicke norman in the presacral space in the pelvis may represent additional lymphadenopat hy. 5. Multiple small hypodense hepatic lesions 6. Diffuse enlargement of the gallbladder with pericystic stranding. Acute michela cystitis should also be considered for this finding. 7. Abnormal low attenuation tissue in the body and tail of the pancreas with a s mall calculus towards the midline. This low-attenuation tissue most likely repre sents a dilated main pancreatic duct. Dr. Hoyt discussed these findings with Dc by telephone at 1:55 PM 09/26/2019 Finalized by Lasha Hoyt M.D. on 09/26/2019 1:57 PM. Dictated by Lasha Hoyt M.D. on 09/26/2019 1:[address] CHEST WO CONTRAST Final Result Abnormal Addendum 1 of 1 Finalized by Eric Brennan M.D. on 09/25/2019 [...] Eric Brennan M.D. on 09/25/2019 8:38 AM. Final CHEST 2 VIEWS Final Result Areas of fibrosis. Superimposed opacities may be due to atelectasis, pneumonia a nd/or scarring. CT chest is recommended for further evaluation. By my electronic signature, I attest that I have personally reviewed the images for this examination and formulated the interpretations and opinions expressed i n this report Finalized by Carmela Lane M.D. on 09/24/2019 3:10 PM. Dictated by Yakelin cutler M.D. on 09/24/2019 2:26 PM. 2D + DOPPLER ECHO Final Result US RENAL BLADDER COMPLETE Final Result 1. Symmetric, normal renal size. 2. Patent renal vessels. No evidence of hemodynamically significant renal arter y stenosis. 3. Elevated intrarenal resistivity, most compatible with a nonspecific, diffuse parenchymal disease. Finalized by Brenda Stahl M.D. on 09/18/2019 12:17 PM. Dictated by Alexis Jovel on 09/18/2019 9:16 AM. US DOPPLER ABD PELV RETROPER COMP Final Result 1. Symmetric, normal renal size. 2. Patent renal vessels. No evidence of hemodynamically significant renal arter y stenosis. 3. Elevated intrarenal resistivity, most compatible with a nonspecific, diffuse parenchymal disease. Finalized by Brenda Stahl M.D. on 09/18/2019 12:17 PM. Dictated by Alexis Jovel on 09/18/2019 9:16 AM. GENERAL RAD CHEST EXTERNAL IMAGING Final Result NM PET SCAN WHOLEBODY (HEAD-TOES) (Results Pending) IR CENTRAL VENOUS CATHETER (Results Pending) Kenji Peña DO Pager [phone] Associated attestation - Levar Coleman DO - 10/03/2019 5:02 PM CDT ATTESTATION I personally performed the ruiz portions of the E/M visit, discussed case with th e fellow and concur with fellow documentation of history, physical exam, assessm ent, and treatment plan unless otherwise noted. Staff name: Levar Coleman DO * Alexandra Norman RN - 10/03/2019 12:37 PM CDT Pt to [facility] for lumbar puncture. Breathing appeared labored upon arrival. Upon placing on SPO2 monitor, SPO2 73%.Patient placed on 5LNC and SPO2 increased to 9 2%. * Padma Christine, OT - 10/03/2019 11:42 AM CDT OCCUPATIONAL THERAPY NOTE Name: Mary Tim : 1950 Age: [age] y.o. Admission Date: 09/17/2019 LOS: 15 days Patient out of room receiving dialysis. Will attempt to work with patient later this date as able. Therapist: Padma Christine, OT Date: 10/03/2019 * Yisel Carlos MD - 10/03/2019 8:18 AM CDT ATTESTATION I personally performed or re-performed the history, physical exam and treatment for the E/M. I discussed the case with the Medical Student, and concur with the Medical Student documentation of history, physical exam and treatment plan unles s otherwise noted. Discussed patient's care with sisters for 30 minutes today. Patient for PET, and LP. Staff name: Yisel Carlos MD Date: 10/03/2019 General Progress Note Name: Mary Tim Today's Date: 10/03/2019 Admission Date: 09/17/2019 LOS: 15 days Assessment/Plan: Principal Problem: Acute renal failure (ARF) (HCC) Active Problems: Hyperkalemia High anion gap metabolic acidosis UTI (urinary tract infection) Physical debility ILD (interstitial lung disease) (HCC) Anemia Abnormal CT of the chest Abnormal abdominal CT scan Elevated CA 19-9 level 69 y.o.femalewith PMHx ofHTN and cervical (C3-C7) and lumbar (L3-L5) spina l fusionswho presentedfor progressively worsening weakness and fatigue and w as found to have acute renal failure with hyperkalemia and anion gap metabolic a cidosis Suspected DLBCL - Renal biopsy from 09/28 shows pathology that is consistent with DLBCL > Pathology report: Immunohistochemical and in situ hybridization stains performed on A1 show the tumor cells are positive for CD20, CD10(60%), BCL2, BCL6 (10%), MIB-1 (60%), MUM-1 (40%) and negative for CD3, CD5, CD30 (less than 1%), cyclin D1, cMYC, EBV. These findings are consistent with DLBCL, germinal center subtype. > TTE done on 09/18; unremarkable. LVEF of >65%, no valvular abnormalaties or wall motion abnormalities Plan - Hematology consulted and they will start the staging process > Ki-67 stain pending from pathology > Pending EM results on kidney bx > PET scan and LP for today, NPO at midnight 10/01 > BM bx tentatively Monday >TLS Labs ordered, required daily as she is at risk for lysis. Allopurinol 100mg daily started > Elevated uric acid, LDH and pending beta-2 microglobulin labs ROSHAN; likely due to DLBCL infiltration - likely ATN, Nephrology noted muddy brown casts and pyuria on microscopy - 7 at presentation, small improvement with IVF - Renal US unremarkable - UPr:Cr 0.9, - Renal consulted, discussed with . Plan to replace Zambrano given diste nded urinary bladder and large kidneys and renal pelvis. - pathology of renal bx shows DLBCL; see above - HD line placed Plan -MonitorI&Os - BMP QD - Plan for 2 hour session of HD today, 3rd session this week. Abnormal CT abdomen pelvis;concern for systemic disease or disseminated DLBCL - CT abdomen pelvis was done for evaluation of liver lesion seen on CT chest. - Patient has minimal symptoms of vague abdominal discomfort and constipation - CT abdomenandpelvis showed multiple findings abnormalities involving the l iver, gallbladder, kidneys, right adrenal gland and retroperitoneum. Leading con sideration is lymphoma. Erdheim-Lancaster disease and IgG-4 related disease are ad ditional considerations. >Mild diffuse enlargement of the kidneys with ill-defined soft tissue thickening in the renal pelves and asymmetric perinephric stranding. Mild nodular enlargement of the right adrenal gland with ill-defined stranding. Mild central retroperitoneal lymphadenopathy. Mild diffuse soft tissue thickening in the presacral space in the pelvis may represent additional lymphadenopathy. Multiple small hypodense hepatic lesions. Diffuse enlargement of the gallbladder with pericystic stranding. Acute cholecystitis should also be considered for this finding.. Abnormal low attenuation tissue in the body and tail of the pancreas with a small calculus towards the midline. This low-attenuation tissue most likely represents a dilated main pancreatic duct. -lipase 118, CA-19 93 - Elevated alk phos, concern for DLBCL give recent kidney bx results Plan -f/uflow cytometry -GI consulted consult; EUS will be on hold. It is non-urgent, can be done as o utpt once patient is more stable UTI, resolved -UA shows blood and pyuria - UCx with e. coli and enterobacter. Sensitive to Rocephin - completedrocephin for 7 days09/25 Hyperkalemia - aggressively treated prior to transfer - continue to monitor - Dialysis today Constipation - Miralax, senokot, suppository AGMA -Sodium Bicarb tablet 650mg PO BID -Monitor Acute Hypoxic Respiratory Failure Dyspnea, Fatigue; CT chestconcerning for ILD: Sarcoidosis versus hypersensitiv ity pneumonitis - CXR at OSH without acute process - Echo normal - Repeat chest x-ray showed areas offibrosis, suprabasal opacities may be due to atelectasis, pneumonia and/or scarring. - CT chest showedright greater than left peribronchovascular and subpleural re ticulation and architectural distortion with mid lung zone predominance most com patible with fibrosing interstitial lung disease. -Leading considerations for this pattern of fibrosis would include sarcoidosis especially given mediastinal and hilar lymph nodes or potentially the fibrotic form of hypersensitivity pneumonitis. - Does have arthritic pain in her hand joints and feet,family history of lupus - BAL was unremarkable - ILD Labs largely negative except for elevated Aldolase at 9.2. - Urine Ca random 0.7 and IgG4 within normal range. - PFTs consistent with restrictive pattern - New developing cough with sputum production reported 09/29; audible crackles he keyanna on auscultation at RLL - Bronch Bx shows granuloma formation, consistent with sarcoidosis - CXR 10/01 shows signs concerning for increased patchy bilateral opacities, most pronounced in the right upper and left midlung; could reflect worsening acute exacerbation of underlying interstitial lung disease versus multifocal pneumonia. Follow-up chest radiogra phs suggested. - BNP 10/01 is elevated at 420, likely due to acute renal failure Plan - Pulmonology consulted -Plan for EUS, currently not urgent, postponed for outpt f/u -Attention on short-term follow-up CT in 3 months time to reassess. -[place]-Marker Panel Labs sent with elevated Aldolase, will follow up results as above. -Continue incentive spirometry as ordered and supplemental O2 as needed, if co ugh worsens, do CXR - Start 40mg prednisone, consult with hematology if okay to start HTN - hold CECE, HCTZ - Blood pressure mildly elevated.On [id number] -BP control, less than 140/90. Labetalol prn, hydralazine prn, Chronic Back Pain -conthydrocodone - emu oil prn Normocytic Anemia - Status post 1 PRBC/15.hemoglobin around 10.Transfuse if hemoglobin less than 7 - Iron studies showed mixed picture of iron deficiency and anemia of chronic d isease - B12 and folate low, started replacement - LDH elevated. Haptoglobin normal. Peripheral smear showed normocytic anemia. Absolute lymphocytopenia. Mild monocytosis. Mild Transaminitis, resolved - hepatitis panel; negative - trend Physical debility - PT OT eval.recommending inpatient.Patient agreeable for rehab. SW To ashli t with placement FEN: No IVF, BMP Q,NPO today Code: Full, discussed on admit PPx: HsQ Dispo: Continue inpatient forevaluation and management ofpersistent severe A KI, anemia andgrossly abnormal CT chest and abdomen pelvis concerning for a sy stemic disease. PT OT recommending inpatient Subjective Mary Tim is a 69 y.o. female. Patient is examined on dialysis today. She denies abdominal pain. Her dyspnea is improved. No f/c/n/v. Medications Scheduled Meds:allopurinoL (ZYLOPRIM) tablet 100 mg, 100 mg, Oral, QDAY amitriptyline/gabapentin/emu oil(#) 4/4/10 % topical cream, , Topical, Q8H amLODIPine (NORVASC) tablet 10 mg, 10 mg, Oral, QDAY cyanocobalamin (VITAMIN B-12) tablet 1,000 mcg, 1,000 mcg, Oral, QDAY folic acid (FOLVITE) tablet 1 mg, 1 mg, Oral, QDAY heparin (porcine) PF syringe 5,000 Units, 5,000 Units, Subcutaneous, Q8H* mineral oil/hydrophilic petrolatum (AQUAPHOR, DERMAPHOR) topical ointment, , Top ical, QDAY polyethylene glycol 3350 (MIRALAX) packet 34 g, 2 packet, Oral, QDAY senna (SENOKOT) tablet 2 tablet, 2 tablet, Oral, QHS sodium bicarbonate tablet 650 mg, 650 mg, Oral, BID vitamins, multi B, C, Zn & folate (Renal) (NEPHPLEX RX) tablet 1 tablet, 1 tablet, Oral, QDAY Continuous Infusions: PRN and Respiratory Meds:anticoagulant sodium citrate IP Dialysis PRN, bisacodyL QDAY PRN, calcium carbonate Q6H PRN, hydrALAZINE Q6H PRN, HYDROcodone/acetamino phen Q6H PRN, labetalol (NORMODYNE; TRANDATE) injection Q6H PRN, melatonin QHS P RN, simethicone Q6H PRN, sodium chloride 0.9% (NS) IP Dialysis PRN, sodium chlor hector 0.9% (NS) IP Dialysis PRN, sodium chloride 0.9% (NS) IP Dialysis PRN, vitami n A & D PRN Review of Systems: Respiratory: negative, positive for cough, increased work of breathing, wheezing , dyspnea on exertion or hypoxia Objective: Vital Signs: Last Filed Vital Signs: 24 Fernanda r Range BP: 129/53 (10/03 799) Temp: 36.9 C (98.4 F) (10/02 749) Pulse: 89 (10/03 0700) Respirations: 23 PER MINUTE (10/02 06) SpO2: 96 % (10/03 799) SpO2 Pulse: 89 (10/03 799) Height: 162.6 cm (64.02") (10/02 749) BP: (100-147)/(48-85) Temp: [36.4 C (97.5 F)-36.9 C (98.4 F)] Pulse: [79-98] Respirations: [14 PER MINUTE-23 PER MINUTE] SpO2: [90 %-99 %] Intensity Pain Scale (Self Report): 8 (10/03/19 0020) Intensity Pain Scale (Self Report): 6 (10/02/19 1654) Vitals: 10/02/19 1337 10/02/19 1626 10/03/19 0750 Weight: 76.6 kg (168 lb 14 oz) 75.1 kg (165 lb 9.1 oz) 72.9 kg (160 lb 11.5 oz) Intake/Output Summary: (Last 24 hours) Intake/Output Summary (Last 24 hours) at 10/03/2019 0818 Last data filed at 10/03/2019 0750 Gross per 24 hour Intake 760 ml Output 1976 ml Net -1216 ml Stool Occurrence: 1 Physical Exam General: Alert, no distress. Conjunctival pallor Neck: Supple, nontender, + HJR/JVD or lymphadenopathy Resp:Coarse rales and crackles at RLL. Diffuse rales. CV: Regular rate and rhythm, S1, S2 normal, no murmur. No peripheral edema. GI: Soft, non-tender. Bowel sounds normal. Neuro: No focal deficits, CN 2-12 grossly intact bilaterally, oriented x3 Psych: normal affect and mood, remote and recent memory intact Lab Review 24-hour labs: Results for orders placed or performed during the hospital encounter of 09/17/19 (from the past 24 hour(s)) BASIC METABOLIC PANEL Collection Time: 10/03/19 10:36 AM Result Value Ref Range Sodium 138 137 - 147 MMOL/L Potassium 3.0 (L) 3.5 - 5.1 MMOL/L Chloride 97 (L) 98 - 110 MMOL/L CO2 29 21 - 30 MMOL/L Anion Gap 12 3 - 12 Glucose 82 70 - 100 MG/DL Blood Urea Nitrogen 16 7 - 25 MG/DL Creatinine 1.99 (H) 0.4 - 1.00 MG/DL Calcium 8.6 8.5 - 10.6 MG/DL eGFR Non 25 (L) >60 mL/min eGFR 30 (L) >60 mL/min CBC AND DIFF Collection Time: 10/03/19 10:36 AM Result Value Ref Range White Blood Cells 9.0 4.5 - 11.0 K/UL RBC 2.75 (L) 4.0 - 5.0 M/UL Hemoglobin 8.5 (L) 12.0 - 15.0 GM/DL Hematocrit 24.8 (L) 36 - 45 % MCV 89.9 80 - 100 FL MCH 30.7 26 - 34 PG MCHC 34.2 32.0 - 36.0 G/DL RDW 13.4 11 - 15 % Platelet Count 248 150 - 400 K/UL MPV 6.4 (L) 7 - 11 FL Neutrophils 83 (H) 41 - 77 % Lymphocytes 4 (L) 24 - 44 % Monocytes 10 4 - 12 % Eosinophils 2 0 - 5 % Basophils 1 0 - 2 % Absolute Neutrophil Count 7.50 (H) 1.8 - 7.0 K/UL Absolute Lymph Count 0.36 (L) 1.0 - 4.8 K/UL Absolute Monocyte Count 0.90 (H) 0 - 0.80 K/UL Absolute Eosinophil Count 0.19 0 - 0.45 K/UL Absolute Basophil Count 0.05 0 - 0.20 K/UL LDH-LACTATE DEHYDROGENASE Collection Time: 10/03/19 10:36 AM Result Value Ref Range Lactate Dehydrogenase 586 (H) 100 - 210 U/L MAGNESIUM Collection Time: 10/03/19 10:36 AM Result Value Ref Range Magnesium 1.8 1.6 - 2.6 mg/dL PHOSPHORUS Collection Time: 10/03/19 10:36 AM Result Value Ref Range Phosphorus 1.7 (L) 2.0 - 4.5 MG/DL PROTIME INR (PT) Collection Time: 10/03/19 10:36 AM Result Value Ref Range INR 1.3 (H) 0.8 - 1.2 TOTAL PROTEIN-CSF Collection Time: 10/03/19 1:45 PM Result Value Ref Range Total Protein,CSF 30 15 - 45 MG/DL GLUCOSE-CSF Collection Time: 10/03/19 1:45 PM Result Value Ref Range Glucose,CSF 56 40 - 75 MG/DL Xanthochromia,CSF NONE LEUKEMIA/LYMPHOMA PANEL FLUID/TISSUE Collection Time: 10/03/19 1:45 PM Result Value Ref Range Leuk/Lymph Interpretation SEE PATHOLOGY REPORT Specimen/LLM CSF CSF TUBE VOLUMES Collection Time: 10/03/19 1:45 PM Result Value Ref Range CSF Tube 1 3.0 mL CSF Tube 2 3.0 mL CSF Tube 3 2.0 mL CSF Tube 4 0.0 mL Point of Care Testing (Last 24 hours) POC Glucose (Download): 92 (10/02/19 5022) Radiology and other Diagnostics Review: Pertinent radiology reviewed. Jade Bejarano MS * Eric Cornejo RN - 10/03/2019 7:17 AM CDT Patient arrived to room # (8954) via bed accompanied by RN. Patient transferred to the bed with assistance. Bedside safety checks completed. Initial patient ass essment completed. Refer to flowsheet for details. Admission skin assessment completed with: Mary Ann Red RN Pressure injury present on arrival?: Yes 1. Head/Face/Neck: No 2. Trunk/Back: No 3. Upper Extremities: No 4. Lower Extremities: No 5. Pelvic/Coccyx: Yes 6. Assessed for device associated injury? Yes 7. Malnutrition Screening Tool (Nursing Nutrition Assessment) Completed? No See Doc Flowsheet for additional wound details. INTERVENTIONS: Q2 turns * Sade Jones RT - 10/03/2019 5:56 AM CDT RT Adult Assessment Note NAME:Mary Tim :1950 AGE: 69 y.o. ADMISSION DATE: 09/17/2019 DAYS ADMITTED: LOS: 15 days RT Treatment Plan: Protocol Plan: Procedures PEP Therapy: Place a nursing order for "IS Q1h While Awake" for any of Lung Expa nsion indicators Oxygen/Humidity: O2 to keep SpO2 > 92%, if not on any RT modality, D/C protocol if greater than 24 hours on room air SpO2: Continuous (Document SpO2 result Qshift) Additional Comments: Impressions of the patient: pt resting in bed, no sign of distress on 2L O2 and continues pluse-Ox Intervention(s)/outcome(s): RT assessment done. Patient education that was completed: Recommendations to the care team: Vital Signs: Pulse: RR: SpO2: 97 % O2 Device: Cannula Liter Flow: 2 Lpm O2%: Breath Sounds: Clear (Implies normal);Decreased Respiratory Effort: Non-Labored * Nidia Butler RN - 10/03/2019 12:49 AM CDT 2000- patient O2 level 92 on 7 lpm NC per order parameter of >95%. Messaged Dr. Stahl and he stated it is okay if patient's O2 is 90 or greater 2245- O2 up to 99. Titrated O2 to 4 lpm 0035- Patient had not voided since zambrano removed at 1800. Bladder scan revealed a max volume of [address] Infante regarding urine output. Dr. Portillo n advised to continue monitoring throughout the shift. 0045- O2 at 98. Titrated O2 to 3 lpm 0250- voided. Dr. Infante notified 0400- O2 at 97. Titrated O2 to 2 lpm * Vane Colmenares OT - 10/02/2019 4:02 PM CDT OCCUPATIONAL THERAPY NOTE Name: Mary Tim : 1950 Age: [age] y.o. Admission Date: 09/17/2019 LOS: 14 days Patient was unavailable for occupational therapy. Occupational therapy will con tinue to follow and provide intervention as indicated. Therapist: EDWIN Diaz/[facility] [id number] Date: 10/02/2019 * Bebeto Wagner MD - 10/02/2019 1:37 PM CDT General Progress Note Name: Mary Tim Today's Date: 10/02/2019 Admission Date: 09/17/2019 LOS: 14 days Assessment/Plan: Principal Problem: Acute renal failure (ARF) (HCC) Active Problems: Hyperkalemia High anion gap metabolic acidosis UTI (urinary tract infection) Physical debility ILD (interstitial lung disease) (HCC) Anemia Abnormal CT of the chest Abnormal abdominal CT scan Elevated CA 19-9 level 69 yo F with PMHx htn, cervical and lumbar spinal fusions, presented originally to OSH with weakness, fatigue, dyspnea, found to be in renal failure now on HD, initially worked up for ILD and found to have presacral and RP LAD as well as as bilateral kidney enlargement, found to have infiltration of DLBCL on kidney bio psy. Diagnosis Immunohistochemical and in situ hybridization stains performed on A1 show the tumor cells are positive for CD20, CD10(60%), BCL2, BCL6 (10%), MIB-1 (60%), MUM-1 (40%) and negative for CD3, CD5, CD30 (less than 1%), cyclin D1, cMYC, EBV. These findings are consistent with DLBCL, germinal center subtype. IPI yet to be calculated pending further diagnostics but already clearly high ri sk. Ki67 pending Will need LP due to high risk factors- ordered for tomorrow by IR with flow. TTE- done 09/18, LFEF >65% BM Bx- pending PET CT, tentatively will do Monday LP- will plan to do tomorrow with IR. PET scheduled for tomorrow as well. - allopurinol 100mg/day given renal dysfunction - TLS labs daily with LDH, uric acid, phos, K, Ca++ - daily cbc and bmp Patient staffed with Dr. Justo Wagner MD PGY 4 Hematology Oncology Available on voalte Subjective Mary Tim is a 69 y.o. female. Patient feels better today, though still w / abdominal pain. Did have some decrease in functional status prior to her admis kerry but mostly her deconditioning has been here. Her sister is very involved with her care and is planning on coming down soon. Slight increase in oxygen requirement today to 6L via NC. Pulm working up possib le sarcoid diagnosis vs ILD. Appetite OK today. Feeling much more awake now as compared to yesterday when we talked. Medications Scheduled Meds:amitriptyline/gabapentin/emu oil(#) 4/4/10 % topical cream, , Top ical, Q8H amLODIPine (NORVASC) tablet 10 mg, 10 mg, Oral, QDAY cyanocobalamin (VITAMIN B-12) tablet 1,000 mcg, 1,000 mcg, Oral, QDAY folic acid (FOLVITE) tablet 1 mg, 1 mg, Oral, QDAY heparin (porcine) PF syringe 5,000 Units, 5,000 Units, Subcutaneous, Q8H* polyethylene glycol 3350 (MIRALAX) packet 34 g, 2 packet, Oral, QDAY senna (SENOKOT) tablet 2 tablet, 2 tablet, Oral, QHS sodium bicarbonate tablet 650 mg, 650 mg, Oral, BID vitamins, multi B, C, Zn & folate (Renal) (NEPHPLEX RX) tablet 1 tablet, 1 tablet, Oral, QDAY Continuous Infusions: PRN and Respiratory Meds:anticoagulant sodium citrate IP Dialysis PRN, bisacodyL QDAY PRN, calcium carbonate Q6H PRN, hydrALAZINE Q6H PRN, HYDROcodone/acetamino phen Q6H PRN, labetalol (NORMODYNE; TRANDATE) injection Q6H PRN, melatonin QHS P RN, simethicone Q6H PRN, sodium chloride 0.9% (NS) IP Dialysis PRN, sodium chlor hector 0.9% (NS) IP Dialysis PRN, sodium chloride 0.9% (NS) IP Dialysis PRN, vitami n A & D PRN Review of Systems: See HPI/subjective Objective: Vital Signs: Last Filed Vital Signs: 24 Fernanda r Range BP: 126/51 (10/01 914) Temp: 36.7 C (98.1 F) (10/01 914) Pulse: 93 (10/01 914) Respirations: 16 PER MINUTE (10/01 914) SpO2: (P) 95 % (10/01 1239) SpO2 Pulse: 84 (09/30 1830) BP: (102-147)/(43-58) Temp: [36.4 C (97.5 F)-37.3 C (99.1 F)] Pulse: [82-99] Respirations: [13 PER MINUTE-23 PER MINUTE] SpO2: [90 %-96 %] Intensity Pain Scale (Self Report): 8 (10/02/19 1221) Intensity Pain Scale (Self Report): 8 (10/02/19 0800) Vitals: 09/17/19 2350 09/19/19 1411 Weight: 77 kg (169 lb 12.1 oz) 76.7 kg (169 lb) Intake/Output Summary: (Last 24 hours) Intake/Output Summary (Last 24 hours) at 10/02/2019 1337 Last data filed at 10/01/2019 2141 Gross per 24 hour Intake 540 ml Output 1600 ml Net -1060 ml Stool Occurrence: 1 Physical Exam Gen- awake, alert, oriented x4, in NAD, sitting up eating, interactive. Resp- no distress on NC Skin- no lesions or petichiae Abd- non-distended, mildly tender Lymph- no new cervical LAD. Lab Review 24-hour labs: Results for orders placed or performed during the hospital encounter of 09/17/19 (from the past 24 hour(s)) CBC Collection Time: 10/01/19 3:30 PM Result Value Ref Range White Blood Cells 9.6 4.5 - 11.0 K/UL RBC 2.38 (L) 4.0 - 5.0 M/UL Hemoglobin 7.5 (L) 12.0 - 15.0 GM/DL Hematocrit 21.8 (L) 36 - 45 % MCV 91.8 80 - 100 FL MCH 31.6 26 - 34 PG MCHC 34.4 32.0 - 36.0 G/DL RDW 13.6 11 - 15 % Platelet Count 238 150 - 400 K/UL MPV 6.4 (L) 7 - 11 FL COMPREHENSIVE METABOLIC PANEL Collection Time: 10/01/19 3:30 PM Result Value Ref Range Sodium 141 137 - 147 MMOL/L Potassium 5.5 (H) 3.5 - 5.1 MMOL/L Chloride 103 98 - 110 MMOL/L Glucose 96 70 - 100 MG/DL Blood Urea Nitrogen 99 (H) 7 - 25 MG/DL Creatinine 8.16 (H) 0.4 - 1.00 MG/DL Calcium 9.0 8.5 - 10.6 MG/DL Total Protein 5.7 (L) 6.0 - 8.0 G/DL Total Bilirubin 0.4 0.3 - 1.2 MG/DL Albumin 2.7 (L) 3.5 - 5.0 G/DL Alk Phosphatase 254 (H) 25 - 110 U/L AST (SGOT) 17 7 - 40 U/L CO2 19 (L) 21 - 30 MMOL/L ALT (SGPT) 33 7 - 56 U/L Anion Gap 19 (H) 3 - 12 eGFR Non 5 (L) >60 mL/min eGFR 6 (L) >60 mL/min POC GLUCOSE Collection Time: 10/01/19 9:43 PM Result Value Ref Range Glucose, POC 84 70 - 100 MG/DL HEPATITIS B SURFACE AG Collection Time: 10/02/19 6:10 AM Result Value Ref Range HBsAg Non-Reactive: HBs antigen not detected [id number]-[id number]: HBs antigen not detected HEPATITIS B CORE AB TOT (IGG+IGM) Collection Time: 10/02/19 6:10 AM Result Value Ref Range Anti HBc Total [id number]-Vto-Kbhtchow: Antibodies to HBV core antigen (anti-HBc Non-Reactive: Antibodies to HBV core antigen (anti-HBc)were not detected. HEPATITIS C AB Collection Time: 10/02/19 6:10 AM Result Value Ref Range Anti HCV Non-Reactive: Antibodies to HCV were not detected. UKMTE-Jam-Jrzgxzhl: Antibodies to HCV were not detected. HIV-1/2 ANTIGEN/ANTIBODY SCREEN Collection Time: 10/02/19 6:10 AM Result Value Ref Range HIV 1 and 2 AG AB Screen [id number]-Yqs-Shixckub: Negative for HIV-1 Ag and HIV-1/2 specif Non-Reactive: Negative for HIV-1 Ag and HIV-1/2 specific antibodies. PROTIME INR (PT) Collection Time: 10/02/19 6:10 AM Result Value Ref Range INR 1.5 (H) 0.8 - 1.2 BASIC METABOLIC PANEL Collection Time: 10/02/19 6:10 AM Result Value Ref Range Sodium 137 137 - 147 MMOL/L Potassium 4.6 3.5 - 5.1 MMOL/L Chloride 99 98 - 110 MMOL/L CO2 23 21 - 30 MMOL/L Anion Gap 15 (H) 3 - 12 Glucose 81 70 - 100 MG/DL Blood Urea Nitrogen 70 (H) 7 - 25 MG/DL Creatinine 6.47 (H) 0.4 - 1.00 MG/DL Calcium 9.1 8.5 - 10.6 MG/DL eGFR Non 6 (L) >60 mL/min eGFR 8 (L) >60 mL/min CBC AND DIFF Collection Time: 10/02/19 6:10 AM Result Value Ref Range White Blood Cells 8.6 4.5 - 11.0 K/UL RBC 2.59 (L) 4.0 - 5.0 M/UL Hemoglobin 8.1 (L) 12.0 - 15.0 GM/DL Hematocrit 23.9 (L) 36 - 45 % MCV 92.4 80 - 100 FL MCH 31.4 26 - 34 PG MCHC 33.9 32.0 - 36.0 G/DL RDW 13.5 11 - 15 % Platelet Count 271 150 - 400 K/UL MPV 6.8 (L) 7 - 11 FL Neutrophils 79 (H) 41 - 77 % Lymphocytes 5 (L) 24 - 44 % Monocytes 12 4 - 12 % Eosinophils 3 0 - 5 % Basophils 1 0 - 2 % Absolute Neutrophil Count 6.84 1.8 - 7.0 K/UL Absolute Lymph Count 0.44 (L) 1.0 - 4.8 K/UL Absolute Monocyte Count 1.06 (H) 0 - 0.80 K/UL Absolute Eosinophil Count 0.21 0 - 0.45 K/UL Absolute Basophil Count 0.05 0 - 0.20 K/UL PHOSPHORUS Collection Time: 10/02/19 6:10 AM Result Value Ref Range Phosphorus 4.7 (H) 2.0 - 4.5 MG/DL MAGNESIUM Collection Time: 10/02/19 6:10 AM Result Value Ref Range Magnesium 2.0 1.6 - 2.6 mg/dL BNP (B-TYPE NATRIURETIC PEPTI) Collection Time: 10/02/19 6:10 AM Result Value Ref Range B Type Natriuretic Peptide 420.0 (H) 0 - 100 PG/ML POC GLUCOSE Collection Time: 10/02/19 8:38 AM Result Value Ref Range Glucose, POC 92 70 - 100 MG/DL Point of Care Testing (Last 24 hours) Glucose: 81 (10/02/19 0610) POC Glucose (Download): 92 (10/02/19 0872) Radiology and other Diagnostics Review: Pertinent radiology reviewed. Bebeto Wagner MD * Kenji Peña DO - 10/02/2019 12:40 PM CDT Renal Progress Note Name: Mary Tim Today's Date: 10/02/2019 Admission Date: 09/17/2019 LOS: 14 days Assessment/Plan: Principal Problem: Acute renal failure (ARF) (HCC) Active Problems: Hyperkalemia High anion gap metabolic acidosis UTI (urinary tract infection) Physical debility ILD (interstitial lung disease) (HCC) Anemia Abnormal CT of the chest Abnormal abdominal CT scan Elevated CA 19-9 level Mary Tim is a 69 y.o. 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 250/400 with 1-2L UF. Patient seen on HD - Plan for another SLED on 10/03/19. 300/500 with 1-2L UF - Appreciate hematology input. - Continue with Renal HD diet - Monitor daily weights - Avoid NSAIDs and contrast if possible - Avoid nephrotoxic medications - Renally dose medications - We will continue to follow - Please page with questions Sharron Oakley, MS4 The patient was assessed and the appropriate management was discussed with Dr. Karine Peña D.O. Nephrology Fellow Pager #: This note was composed with Dragon Dictation. As such, there may be transcriptio nal errors. For questions, please contact Dr. Peña. Subjective Mary Tim is a 69 y.o. female. Patient reports she is doing ok this mornin g despite receiving a tentative cancer diagnosis yesterday. When asked how she t olerated dialysis yesterday, patient reported that she didn't even remember it, although states she knows that she got it. She states she is very hungry and thi rsty as she has been NPO the past two days due to procedures. She was told her d entures had not been found but hospital is coordinating to get her new dentures. Patient states her sister will be driving up from [place], [place] to come see her. Medications Scheduled Meds:allopurinoL (ZYLOPRIM) tablet 100 mg, 100 mg, Oral, QDAY amitriptyline/gabapentin/emu oil(#) 4/4/10 % topical cream, , Topical, Q8H amLODIPine (NORVASC) tablet 10 mg, 10 mg, Oral, QDAY cyanocobalamin (VITAMIN B-12) tablet 1,000 mcg, 1,000 mcg, Oral, QDAY folic acid (FOLVITE) tablet 1 mg, 1 mg, Oral, QDAY heparin (porcine) PF syringe 5,000 Units, 5,000 Units, Subcutaneous, Q8H* mineral oil/hydrophilic petrolatum (AQUAPHOR, DERMAPHOR) topical ointment, , Top ical, QDAY polyethylene glycol 3350 (MIRALAX) packet 34 g, 2 packet, Oral, QDAY senna (SENOKOT) tablet 2 tablet, 2 tablet, Oral, QHS sodium bicarbonate tablet 650 mg, 650 mg, Oral, BID vitamins, multi B, C, Zn & folate (Renal) (NEPHPLEX RX) tablet 1 tablet, 1 tablet, Oral, QDAY Continuous Infusions: PRN and Respiratory Meds:anticoagulant sodium citrate IP Dialysis PRN, bisacodyL QDAY PRN, calcium carbonate Q6H PRN, hydrALAZINE Q6H PRN, HYDROcodone/acetamino phen Q6H PRN, labetalol (NORMODYNE; TRANDATE) injection Q6H PRN, melatonin QHS P RN, simethicone Q6H PRN, sodium chloride 0.9% (NS) IP Dialysis PRN, sodium chlor hector 0.9% (NS) IP Dialysis PRN, vitamin A & D PRN Review of Systems: Constitutional: positive for fatigue, negative for fevers and chills Respiratory: positive for dyspnea on exertion, negative for cough Cardiovascular: negative for chest pain, palpitations, orthopnea Gastrointestinal: negative for nausea, vomiting, diarrhea and constipation Objective: Vital Signs: Last Filed Vital Signs: 24 Fernanda r Range BP: 100/85 (10/01 1430) Temp: 36.4 C (97.6 F) (10/01 1337) Pulse: 84 (10/01 1430) Respirations: 15 PER MINUTE (10/01 1430) SpO2: 98 % (10/01 1430) SpO2 Pulse: 83 (10/01 1430) BP: (100-147)/(43-85) Temp: [36.4 C (97.6 F)-37.3 C (99.1 F)] Pulse: [82-99] Respirations: [13 PER MINUTE-23 PER MINUTE] SpO2: [90 %-99 %] Intensity Pain Scale (Self Report): 8 (10/02/19 1221) Intensity Pain Scale (Self Report): 8 (10/02/19 0800) Vitals: 09/17/19 2350 09/19/19 1411 10/02/19 1337 Weight: 77 kg (169 lb 12.1 oz) 76.7 kg (169 lb) 76.6 kg (168 lb 14 oz) Intake/Output Summary: (Last 24 hours) Intake/Output Summary (Last 24 hours) at 10/02/2019 1607 Last data filed at 10/02/2019 1345 Gross per 24 hour Intake 760 ml Output 1600 ml Net -840 ml Stool Occurrence: 1 Physical Exam General: Well-appearing and in no apparent distress. Neuro: Alert and oriented to person, place, and time. Cardio: Regular rate and rhythm without murmur or rub. No JVD appreciated. Pulmonary: Clear to auscultation bilaterally. GI: Normal bowel sounds x4. Mild diffuse abdominal TTP, most prominent in RUQ. M urphy sign (-). MSK: Trace lower extremity edema appreciated. Intermittent twitching in left upp er extremity. Lab Review 24-hour labs: Results for orders placed or performed during the hospital encounter of 09/17/19 (from the past 24 hour(s)) POC GLUCOSE Collection Time: 10/01/19 9:43 PM Result Value Ref Range Glucose, POC 84 70 - 100 MG/DL HEPATITIS B SURFACE AG Collection Time: 10/02/19 6:10 AM Result Value Ref Range HBsAg Non-Reactive: HBs antigen not detected [id number]-Jjj-Ccitxlik: HBs antigen not detected HEPATITIS B CORE AB TOT (IGG+IGM) Collection Time: 10/02/19 6:10 AM Result Value Ref Range Anti HBc Total TVDNU-Oky-Lmeygfra: Antibodies to HBV core antigen (anti-HBc Non-Reactive: Antibodies to HBV core antigen (anti-HBc)were not detected. HEPATITIS C AB Collection Time: 10/02/19 6:10 AM Result Value Ref Range Anti HCV Non-Reactive: Antibodies to HCV were not detected. LFODS-Jhu-Muwqkdbd: Antibodies to HCV were not detected. HIV-1/2 ANTIGEN/ANTIBODY SCREEN Collection Time: 10/02/19 6:10 AM Result Value Ref Range HIV 1 and 2 AG AB Screen TOHIF-Lpe-Ottpazuc: Negative for HIV-1 Ag and HIV-1/2 specif Non-Reactive: Negative for HIV-1 Ag and HIV-1/2 specific antibodies. PROTIME INR (PT) Collection Time: 10/02/19 6:10 AM Result Value Ref Range INR 1.5 (H) 0.8 - 1.2 BASIC METABOLIC PANEL Collection Time: 10/02/19 6:10 AM Result Value Ref Range Sodium 137 137 - 147 MMOL/L Potassium 4.6 3.5 - 5.1 MMOL/L Chloride 99 98 - 110 MMOL/L CO2 23 21 - 30 MMOL/L Anion Gap 15 (H) 3 - 12 Glucose 81 70 - 100 MG/DL Blood Urea Nitrogen 70 (H) 7 - 25 MG/DL Creatinine 6.47 (H) 0.4 - 1.00 MG/DL Calcium 9.1 8.5 - 10.6 MG/DL eGFR Non 6 (L) >60 mL/min eGFR 8 (L) >60 mL/min CBC AND DIFF Collection Time: 10/02/19 6:10 AM Result Value Ref Range White Blood Cells 8.6 4.5 - 11.0 K/UL RBC 2.59 (L) 4.0 - 5.0 M/UL Hemoglobin 8.1 (L) 12.0 - 15.0 GM/DL Hematocrit 23.9 (L) 36 - 45 % MCV 92.4 80 - 100 FL MCH 31.4 26 - 34 PG MCHC 33.9 32.0 - 36.0 G/DL RDW 13.5 11 - 15 % Platelet Count 271 150 - 400 K/UL MPV 6.8 (L) 7 - 11 FL Neutrophils 79 (H) 41 - 77 % Lymphocytes 5 (L) 24 - 44 % Monocytes 12 4 - 12 % Eosinophils 3 0 - 5 % Basophils 1 0 - 2 % Absolute Neutrophil Count 6.84 1.8 - 7.0 K/UL Absolute Lymph Count 0.44 (L) 1.0 - 4.8 K/UL Absolute Monocyte Count 1.06 (H) 0 - 0.80 K/UL Absolute Eosinophil Count 0.21 0 - 0.45 K/UL Absolute Basophil Count 0.05 0 - 0.20 K/UL PHOSPHORUS Collection Time: 10/02/19 6:10 AM Result Value Ref Range Phosphorus 4.7 (H) 2.0 - 4.5 MG/DL MAGNESIUM Collection Time: 10/02/19 6:10 AM Result Value Ref Range Magnesium 2.0 1.6 - 2.6 mg/dL BNP (B-TYPE NATRIURETIC PEPTI) Collection Time: 10/02/19 6:10 AM Result Value Ref Range B Type Natriuretic Peptide 420.0 (H) 0 - 100 PG/ML POC GLUCOSE Collection Time: 10/02/19 8:38 AM Result Value Ref Range Glucose, POC 92 70 - 100 MG/DL Point of Care Testing (Last 24 hours) Glucose: 81 (10/02/19 0610) POC Glucose (Download): 92 (10/02/19 0871) Radiology and other Diagnostics Review: CHEST 2 VIEWS Final Result 1. Increased patchy bilateral opacities, most pronounced in the right upper and left midlung. These findings could reflect worsening acute exacerbation of unde rlying interstitial lung disease versus multifocal pneumonia. Follow-up chest ra diographs suggested. 2. Small bilateral pleural effusions. By my electronic signature, I attest that I have personally reviewed the images for this examination and formulated the interpretations and opinions expressed i n this report Finalized by Eric Brennan M.D. on 10/02/2019 2:32 PM. Dictated by Trevin Quiros M.D. on 10/02/2019 2:02 PM. IR CENTRAL VENOUS CATHETER Final Result Successful image-guided placement of tunneled hemodialysis catheter. I, Jonathan Shirley M.D, the attending radiologist, was present for the criti luis fernando and ruiz portions of the procedure with an advanced practice provider, reside nt, and/or fellow participating. Overlapping portions were non ruiz and I was im mediately available. I interpret the critical and ruiz portion of this procedure to have been the procedural time out and needle access. @TT Approved by Alonso Farfan D.O. on 10/01/2019 1:39 PM By my electronic signature, I attest that I have personally reviewed the images for this examination and formulated the interpretations and opinions expressed i n this report Finalized by Jonathan Shirley M.D. on 10/01/2019 1:45 PM. Dictated by Alonso Farfan D.O. on 10/01/2019 1:37 PM. IR RENAL BIOPSY Final Result Successful ultrasound guided left kidney biopsy as described. Specimen was co nfirmed adequate by the cytopathologist at time of procedure. IMak M.D., the attending radiologist, was present for the procedure, pe rsonally reviewed the images, and formulated the interpretations and opinions ex pressed in this report. @TT Finalized by MAK LYNCH on 09/30/2019 1:35 PM. Dictated by MAK LYNCH on 09/30/2019 1:[address] ABD/PELV WO CONTRAST Final Result 1. Abnormalities involving the liver, gallbladder, kidneys, right adrenal gland and retroperitoneum. Leading consideration is lymphoma. Erdheim-Lancaster disease and IgG-4 related disease are additional considerations. 2. Mild diffuse enlargement of the kidneys with ill-defined soft tissue thickeni ng in the renal pelves and asymmetric perinephric stranding. 3. Mild nodular enlargement of the right adrenal gland with ill-defined strandin g. 4. Mild central retroperitoneal lymphadenopathy. Mild diffuse soft tissue thicke norman in the presacral space in the pelvis may represent additional lymphadenopat hy. 5. Multiple small hypodense hepatic lesions 6. Diffuse enlargement of the gallbladder with pericystic stranding. Acute michela cystitis should also be considered for this finding. 7. Abnormal low attenuation tissue in the body and tail of the pancreas with a s mall calculus towards the midline. This low-attenuation tissue most likely repre sents a dilated main pancreatic duct. Dr. Hoyt discussed these findings with Dc by telephone at 1:55 PM 09/26/2019 Finalized by Lasha Hoyt M.D. on 09/26/2019 1:57 PM. Dictated by Lasha Hoyt M.D. on 09/26/2019 1:[address] CHEST WO CONTRAST Final Result Abnormal Addendum 1 of 1 Finalized by Eric Brennan M.D. on 09/25/2019 [...] Eric Brennan M.D. on 09/25/2019 8:38 AM. Final CHEST 2 VIEWS Final Result Areas of fibrosis. Superimposed opacities may be due to atelectasis, pneumonia a nd/or scarring. CT chest is recommended for further evaluation. By my electronic signature, I attest that I have personally reviewed the images for this examination and formulated the interpretations and opinions expressed i n this report Finalized by Carmela Lane M.D. on 09/24/2019 3:10 PM. Dictated by Yakelin cutler M.D. on 09/24/2019 2:26 PM. 2D + DOPPLER ECHO Final Result US RENAL BLADDER COMPLETE Final Result 1. Symmetric, normal renal size. 2. Patent renal vessels. No evidence of hemodynamically significant renal arter y stenosis. 3. Elevated intrarenal resistivity, most compatible with a nonspecific, diffuse parenchymal disease. Finalized by Brenda Stahl M.D. on 09/18/2019 12:17 PM. Dictated by Alexis Jovel on 09/18/2019 9:16 AM. US DOPPLER ABD PELV RETROPER COMP Final Result 1. Symmetric, normal renal size. 2. Patent renal vessels. No evidence of hemodynamically significant renal arter y stenosis. 3. Elevated intrarenal resistivity, most compatible with a nonspecific, diffuse parenchymal disease. Finalized by Brenda Stahl M.D. on 09/18/2019 12:17 PM. Dictated by Alexis Jovel on 09/18/2019 9:16 AM. GENERAL RAD CHEST EXTERNAL IMAGING Final Result NM PET SCAN WHOLEBODY (HEAD-TOES) (Results Pending) IR LUMBAR PUNCTURE (Results Pending) Kenji Peña DO Pager Associated attestation - Levar Coleman DO - 10/02/2019 6:11 PM CDT ATTESTATION I saw Ms. Tim for her second dialysis treatment today. She has been NPO for most of the last 2 days but today had worsening oxygen requirement. We increased her UF goal to 1.5 L to see if this would help. Consider additional reasons for hypoxemic respiratory failure. I personally performed the ruiz portions of the E/M visit, discussed case with th e fellow and concur with fellow documentation of history, physical exam, assessm ent, and treatment plan unless otherwise noted. Staff name: DO Jarad Arnold Jessup W, MD - 10/02/2019 11:32 AM CDT ATTESTATION I personally performed or re-performed the history, physical exam and treatment for the E/M. I discussed the case with the Medical Student, and concur with the Medical Student documentation of history, physical exam and treatment plan unles s otherwise noted. I spent 20 minutes in face to face discussion of workup and evaluation, the bianca rené of time was spent in documentation, discussion with consultants, arranging care with NCM/SW and interdisciplinary huddle. I spent 40 minutes in total care. Staff name: Yisel Carlos MD Date: 10/02/2019 General Progress Note Name: Mary Tim Today's Date: 10/02/2019 Admission Date: 09/17/2019 LOS: 14 days Assessment/Plan: Principal Problem: Acute renal failure (ARF) (HCC) Active Problems: Hyperkalemia High anion gap metabolic acidosis UTI (urinary tract infection) Physical debility ILD (interstitial lung disease) (HCC) Anemia Abnormal CT of the chest Abnormal abdominal CT scan Elevated CA 19-9 level 69 y.o.femalewith PMHx ofHTN and cervical (C3-C7) and lumbar (L3-L5) spina l fusionswho presentedfor progressively worsening weakness and fatigue and w as found to have acute renal failure with hyperkalemia and anion gap metabolic a cidosis Suspected DLBCL - Renal biopsy from 09/28 shows pathology that is consistent with DLBCL > Pathology report: Immunohistochemical and in situ hybridization stains performed on A1 show the tumor cells are positive for CD20, CD10(60%), BCL2, BCL6 (10%), MIB-1 (60%), MUM-1 (40%) and negative for CD3, CD5, CD30 (less than 1%), cyclin D1, cMYC, EBV. These findings are consistent with DLBCL, germinal center subtype. Plan - Hematology consulted and they will start the staging process > Ki-67 stain pending from pathology > Pending EM results on kidney bx > PET scan for tomorrow, NPO at midnight 10/01 > TTE done on 09/18; unremarkable. LVEF of >65%, no valvular abnormalaties or wall motion abnormalities > BM bx and LP with flow cytometry; to be scheduled > Elevated uric acid, LDH and pending beta-2 microglobulin labs > PET scan ordered. > daily hemolysis labs ROSHAN; likely due to DLBCL infiltration - likely ATN, Nephrology noted muddy brown casts and pyuria on microscopy - 7 at presentation, small improvement with IVF - Renal US unremarkable - UPr:Cr 0.9, - Renal consulted, discussed with . Plan to replace Zambrano given diste nded urinary bladder and large kidneys and renal pelvis. - pathology of renal bx shows DLBCL; see above Plan -MonitorI&Os - BMP QD - IR yesterday for HD line placement. Plan for 2 hour session of HD today. Abnormal CT abdomen pelvis;concern for systemic disease or disseminated DLBCL - CT abdomen pelvis was done for evaluation of liver lesion seen on CT chest. - Patient has minimal symptoms of vague abdominal discomfort and constipation - CT abdomenandpelvis showed multiple findings abnormalities involving the l iver, gallbladder, kidneys, right adrenal gland and retroperitoneum. Leading con sideration is lymphoma. Erdheim-Lancaster disease and IgG-4 related disease are ad ditional considerations. >Mild diffuse enlargement of the kidneys with ill-defined soft tissue thickening in the renal pelves and asymmetric perinephric stranding. Mild nodular enlargement of the right adrenal gland with ill-defined stranding. Mild central retroperitoneal lymphadenopathy. Mild diffuse soft tissue thickening in the presacral space in the pelvis may represent additional lymphadenopathy. Multiple small hypodense hepatic lesions. Diffuse enlargement of the gallbladder with pericystic stranding. Acute cholecystitis should also be considered for this finding.. Abnormal low attenuation tissue in the body and tail of the pancreas with a small calculus towards the midline. This low-attenuation tissue most likely represents a dilated main pancreatic duct. -lipase 118, CA-19 93 - Elevated alk phos, concern for DLBCL give recent kidney bx results Plan -f/uflow cytometry -GI consulted consult; EUS will be on hold. It is non-urgent, can be done as o utpt once patient is more stable UTI, resolved -UA shows blood and pyuria - UCx with e. coli and enterobacter. Sensitive to Rocephin - completedrocephin for 7 days09/25 Hyperkalemia - aggressively treated prior to transfer - continue to monitor, 5.4 today - Dialysis today Constipation - Miralax, senokot, suppository AGMA -Sodium Bicarb tablet 650mg PO BID -Monitor Dyspnea, Fatigue; CT chestconcerning for ILD: Sarcoidosis versus hypersensitiv ity pneumonitis - CXR at OSH without acute process - Echo normal - Repeat chest x-ray showed areas offibrosis, suprabasal opacities may be due to atelectasis, pneumonia and/or scarring. - CT chest showedright greater than left peribronchovascular and subpleural re ticulation and architectural distortion with mid lung zone predominance most com patible with fibrosing interstitial lung disease. -Leading considerations for this pattern of fibrosis would include sarcoidosis especially given mediastinal and hilar lymph nodes or potentially the fibrotic form of hypersensitivity pneumonitis. - Does have arthritic pain in her hand joints and feet,family history of lupus - BAL was unremarkable - ILD Labs largely negative except for elevated Aldolase at 9.2. - Urine Ca random 0.7 and IgG4 within normal range. - PFTs consistent with restrictive pattern - New developing cough with sputum production reported 09/29; audible crackles he keyanna on auscultation at [facility] Plan - Pulmonology consulted -Plan for EUS -Attention on short-term follow-up CT in 3 months time to reassess. -Bronchoscopy biopsy results pending, will follow up results and continue work up as outpatient. -[place]han-Marker Panel Labs sent with elevated Aldolase, will follow up results as above. -Continue incentive spirometry as ordered and supplemental O2 as needed, if co ugh worsens, do CXR HTN - hold CCEE, HCTZ - Blood pressure mildly elevated.On [id number] -BP control, less than 140/90. Labetalol prn, hydralazine prn, Chronic Back Pain -conthydrocodone - emu oil prn Normocytic Anemia - Status post 1 PRBC15.hemoglobin around 10.Transfuse if hemoglobin less than 7 - Iron studies showed mixed picture of iron deficiency and anemia of chronic d isease - B12 and folate low, started replacement - LDH elevated. Haptoglobin normal. Peripheral smear showed normocytic anemia. Absolute lymphocytopenia. Mild monocytosis. Mild Transaminitis, resolved - hepatitis panel; negative - trend Physical debility - PT OT eval.recommending inpatient.Patient agreeable for rehab. SW To ashli t with placement FEN: No IVF, BMP Q,NPO today Code: Full, discussed on admit PPx: HsQ Dispo: Continue inpatient forevaluation and management ofpersistent severe A KI, anemia andgrossly abnormal CT chest and abdomen pelvis concerning for a sy stemic disease. PT OT recommending inpatient Subjective Mary Tim is a 69 y.o. female. Patient has hypoxia overnight. Desaturatio n down into the 70s. She is experiencing dyspnea at rest. Medications Scheduled Meds:amitriptyline/gabapentin/emu oil(#) 4/4/10 % topical cream, , Top ical, Q8H amLODIPine (NORVASC) tablet 10 mg, 10 mg, Oral, QDAY cyanocobalamin (VITAMIN B-12) tablet 1,000 mcg, 1,000 mcg, Oral, QDAY folic acid (FOLVITE) tablet 1 mg, 1 mg, Oral, QDAY heparin (porcine) PF syringe 5,000 Units, 5,000 Units, Subcutaneous, Q8H* polyethylene glycol 3350 (MIRALAX) packet 34 g, 2 packet, Oral, QDAY senna (SENOKOT) tablet 2 tablet, 2 tablet, Oral, QHS sodium bicarbonate tablet 650 mg, 650 mg, Oral, BID sodium chloride 0.9 % infusion, 1,000 mL, Intravenous, ONCE vitamins, multi B, C, Zn & folate (Renal) (NEPHPLEX RX) tablet 1 tablet, 1 tablet, Oral, QDAY Continuous Infusions: PRN and Respiratory Meds:anticoagulant sodium citrate IP Dialysis PRN, bisacodyL QDAY PRN, calcium carbonate Q6H PRN, hydrALAZINE Q6H PRN, HYDROcodone/acetamino phen Q6H PRN, labetalol (NORMODYNE; TRANDATE) injection Q6H PRN, melatonin QHS P RN, simethicone Q6H PRN, sodium chloride 0.9% (NS) IP Dialysis PRN, sodium chlor hector 0.9% (NS) IP Dialysis PRN, sodium chloride 0.9% (NS) IP Dialysis PRN, vitami n A & D PRN Review of Systems: Respiratory: negative, positive for cough, increased work of breathing, wheezing , dyspnea on exertion or hypoxia Objective: Vital Signs: Last Filed Vital Signs: 24 Fernanda r Range BP: 126/51 (10/01 914) Temp: 36.7 C (98.1 F) (10/01 914) Pulse: 93 (10/01 914) Respirations: 16 PER MINUTE (10/01 914) SpO2: 92 % (10/01 914) SpO2 Pulse: 84 (09/30 1830) BP: (102-147)/(43-107) Temp: [36.4 C (97.5 F)-37.3 C (99.1 F)] Pulse: [82-109] Respirations: [13 PER MINUTE-23 PER MINUTE] SpO2: [90 %-97 %] Intensity Pain Scale (Self Report): 8 (10/02/19 0800) Intensity Pain Scale (Self Report): 8 (10/02/19 0800) Vitals: 09/17/19 2350 09/19/19 1411 Weight: 77 kg (169 lb 12.1 oz) 76.7 kg (169 lb) Intake/Output Summary: (Last 24 hours) Intake/Output Summary (Last 24 hours) at 10/02/2019 1132 Last data filed at 10/01/2019 2141 Gross per 24 hour Intake 540 ml Output 1600 ml Net -1060 ml Stool Occurrence: 1 Physical Exam General: Alert, no distress. Conjunctival pallor Neck: Supple, nontender, + HJR/JVD or lymphadenopathy Resp:Coarse rales and crackles at RLL. Diffuse rales. CV: Regular rate and rhythm, S1, S2 normal, no murmur. No peripheral edema. GI: Soft, non-tender. Bowel sounds normal. Neuro: No focal deficits, CN 2-12 grossly intact bilaterally, oriented x3 Psych: normal affect and mood, remote and recent memory intact Lab Review 24-hour labs: Results for orders placed or performed during the hospital encounter of 09/17/19 (from the past 24 hour(s)) CBC Collection Time: 10/01/19 3:30 PM Result Value Ref Range White Blood Cells 9.6 4.5 - 11.0 K/UL RBC 2.38 (L) 4.0 - 5.0 M/UL Hemoglobin 7.5 (L) 12.0 - 15.0 GM/DL Hematocrit 21.8 (L) 36 - 45 % MCV 91.8 80 - 100 FL MCH 31.6 26 - 34 PG MCHC 34.4 32.0 - 36.0 G/DL RDW 13.6 11 - 15 % Platelet Count 238 150 - 400 K/UL MPV 6.4 (L) 7 - 11 FL COMPREHENSIVE METABOLIC PANEL Collection Time: 10/01/19 3:30 PM Result Value Ref Range Sodium 141 137 - 147 MMOL/L Potassium 5.5 (H) 3.5 - 5.1 MMOL/L Chloride 103 98 - 110 MMOL/L Glucose 96 70 - 100 MG/DL Blood Urea Nitrogen 99 (H) 7 - 25 MG/DL Creatinine 8.16 (H) 0.4 - 1.00 MG/DL Calcium 9.0 8.5 - 10.6 MG/DL Total Protein 5.7 (L) 6.0 - 8.0 G/DL Total Bilirubin 0.4 0.3 - 1.2 MG/DL Albumin 2.7 (L) 3.5 - 5.0 G/DL Alk Phosphatase 254 (H) 25 - 110 U/L AST (SGOT) 17 7 - 40 U/L CO2 19 (L) 21 - 30 MMOL/L ALT (SGPT) 33 7 - 56 U/L Anion Gap 19 (H) 3 - 12 eGFR Non 5 (L) >60 mL/min eGFR 6 (L) >60 mL/min POC GLUCOSE Collection Time: 10/01/19 9:43 PM Result Value Ref Range Glucose, POC 84 70 - 100 MG/DL HEPATITIS B SURFACE AG Collection Time: 10/02/19 6:10 AM Result Value Ref Range HBsAg Non-Reactive: HBs antigen not detected [id number]-Kgw-Ripnbdyi: HBs antigen not detected HEPATITIS B CORE AB TOT (IGG+IGM) Collection Time: 10/02/19 6:10 AM Result Value Ref Range Anti HBc Total [id number]-Ssn-Yxigxvvo: Antibodies to HBV core antigen (anti-HBc Non-Reactive: Antibodies to HBV core antigen (anti-HBc)were not detected. HEPATITIS C AB Collection Time: 10/02/19 6:10 AM Result Value Ref Range Anti HCV Non-Reactive: Antibodies to HCV were not detected. [id number]-Hax-Gkucgezw: Antibodies to HCV were not detected. HIV-1/2 ANTIGEN/ANTIBODY SCREEN Collection Time: 10/02/19 6:10 AM Result Value Ref Range HIV 1 and 2 AG AB Screen [id number]-Ets-Glakonva: Negative for HIV-1 Ag and HIV-1/2 specif Non-Reactive: Negative for HIV-1 Ag and HIV-1/2 specific antibodies. PROTIME INR (PT) Collection Time: 10/02/19 6:10 AM Result Value Ref Range INR 1.5 (H) 0.8 - 1.2 BASIC METABOLIC PANEL Collection Time: 10/02/19 6:10 AM Result Value Ref Range Sodium 137 137 - 147 MMOL/L Potassium 4.6 3.5 - 5.1 MMOL/L Chloride 99 98 - 110 MMOL/L CO2 23 21 - 30 MMOL/L Anion Gap 15 (H) 3 - 12 Glucose 81 70 - 100 MG/DL Blood Urea Nitrogen 70 (H) 7 - 25 MG/DL Creatinine 6.47 (H) 0.4 - 1.00 MG/DL Calcium 9.1 8.5 - 10.6 MG/DL eGFR Non 6 (L) >60 mL/min eGFR 8 (L) >60 mL/min CBC AND DIFF Collection Time: 10/02/19 6:10 AM Result Value Ref Range White Blood Cells 8.6 4.5 - 11.0 K/UL RBC 2.59 (L) 4.0 - 5.0 M/UL Hemoglobin 8.1 (L) 12.0 - 15.0 GM/DL Hematocrit 23.9 (L) 36 - 45 % MCV 92.4 80 - 100 FL MCH 31.4 26 - 34 PG MCHC 33.9 32.0 - 36.0 G/DL RDW 13.5 11 - 15 % Platelet Count 271 150 - 400 K/UL MPV 6.8 (L) 7 - 11 FL Neutrophils 79 (H) 41 - 77 % Lymphocytes 5 (L) 24 - 44 % Monocytes 12 4 - 12 % Eosinophils 3 0 - 5 % Basophils 1 0 - 2 % Absolute Neutrophil Count 6.84 1.8 - 7.0 K/UL Absolute Lymph Count 0.44 (L) 1.0 - 4.8 K/UL Absolute Monocyte Count 1.06 (H) 0 - 0.80 K/UL Absolute Eosinophil Count 0.21 0 - 0.45 K/UL Absolute Basophil Count 0.05 0 - 0.20 K/UL PHOSPHORUS Collection Time: 10/02/19 6:10 AM Result Value Ref Range Phosphorus 4.7 (H) 2.0 - 4.5 MG/DL MAGNESIUM Collection Time: 10/02/19 6:10 AM Result Value Ref Range Magnesium 2.0 1.6 - 2.6 mg/dL POC GLUCOSE Collection Time: 10/02/19 8:38 AM Result Value Ref Range Glucose, POC 92 70 - 100 MG/DL Point of Care Testing (Last 24 hours) Glucose: 81 (10/02/19 0610) POC Glucose (Download): 92 (10/02/19 0800) Radiology and other Diagnostics Review: Pertinent radiology reviewed. Jade Bejarano, Pager * Reji Read MD - 10/02/2019 9:59 AM CDT Pulmonary Progress Note Name: Mary Tim Today's Date: 10/02/2019 Admission Date: 09/17/2019 LOS: 14 days Assessment/Plan: Principal Problem: Acute renal failure (ARF) (HCC) Active Problems: Hyperkalemia High anion gap metabolic acidosis UTI (urinary tract infection) Physical debility ILD (interstitial lung disease) (HCC) Anemia Abnormal CT of the chest Abnormal abdominal CT scan Elevated CA 19-9 level Ms. Tim is a69 yo F with PMH of HTN, cervical and lumbar spinal fusions, r eported RA who is admitted withacute renal failure, found to have abnormal kavon st CT findings concerning for possible ILD versus sarcoidosis. #Abnormal chest CT- Patchy interstitial opacities associated with airways,terry spicious for sarcoidosisversushypersensitivity pneumonitis. #Sarcoidosis - likely stage 2. #Diffuse Large B-Cell Lymphoma - ILD Labs largely negative except for elevated Aldolase at 9.2. - PFTs consistent with restrictive pattern. - IR Renal Biopsy 09/29, preliminary results showing likely DLBCL. - Lymph node biopsy results showing granuloma formation concerning for sarcoidos is. > Bronchoscopy biopsy results pending, will follow up results and continue workup as outpatient. > [place] Myositis Marker Panel Labs sent with elevated Aldolase, will follow up results as above. > Continue incentive spirometry as ordered and supplemental O2 as needed. She will likely need continued O2 therapy given sarcoid findings. > Ordered Cu and Zn labs, will f/u with results. > For her Sarcoid: Would recommend starting on Prednisone 40mg daily for two weeks and then reducing to 20mg daily indefinitely, contingent upon hematology/oncology recommendations and no adverse interaction with their intervention plans. Consider starting Bactrim for prophylaxis when starting glucocorticoids. > Will schedule pulmonology follow up in 6 weeks. > Recommend obtaining baseline PFTs - ordered. Case discussed with Dr. Read. ATTESTATION I personally performed the ruiz portions of the E/M visit, discussed case with re sident and concur with resident documentation of history, physical exam, assessm ent, and treatment plan unless otherwise noted. Mediastinal LAD biopsies consistent with granulomas from more than 1 michael stati on. This in combination with her CT imaging findings would be most consistent w ith sarcoidosis. We would recommend starting prednisone 40mg daily as above. W ith findings of possible DLBCL on renal biopsy, will want to confirm with hemato logy that starting steroids for sarcoid will not disrupt their evaluation or the rapy. Will need baseline PFTs. Staff name: Reji Read MD Date: 10/02/2019 Subjective Mary Tim is a 69 y.o. female. Patient reports feeling largely the same a s yesterday with some new dizziness since being off of her oxygen for a bath. Sh e denied any worsened shortness of breath or difficulty breathing. She has rayna nued to have intermittent productive cough of primarily clear/white sputum with occasional green phlegm that she attributes to her sinuses and says she has had this for many years with no changes currently. Medications Scheduled Meds:amitriptyline/gabapentin/emu oil(#) 4/4/10 % topical cream, , Top ical, Q8H amLODIPine (NORVASC) tablet 10 mg, 10 mg, Oral, QDAY cyanocobalamin (VITAMIN B-12) tablet 1,000 mcg, 1,000 mcg, Oral, QDAY folic acid (FOLVITE) tablet 1 mg, 1 mg, Oral, QDAY heparin (porcine) PF syringe 5,000 Units, 5,000 Units, Subcutaneous, Q8H* polyethylene glycol 3350 (MIRALAX) packet 34 g, 2 packet, Oral, QDAY senna (SENOKOT) tablet 2 tablet, 2 tablet, Oral, QHS sodium bicarbonate tablet 650 mg, 650 mg, Oral, BID sodium chloride 0.9 % infusion, 1,000 mL, Intravenous, ONCE vitamins, multi B, C, Zn & folate (Renal) (NEPHPLEX RX) tablet 1 tablet, 1 tablet, Oral, QDAY Continuous Infusions: PRN and Respiratory Meds:anticoagulant sodium citrate IP Dialysis PRN, bisacodyL QDAY PRN, calcium carbonate Q6H PRN, flumazeniL PRN, flumazeniL PRN, hydrALAZINE Q6H PRN, HYDROcodone/acetaminophen Q6H PRN, labetalol (NORMODYNE; TRANDATE) in jection Q6H PRN, melatonin QHS PRN, naloxone PRN, naloxone PRN, simethicone Q6H PRN, sodium chloride 0.9% (NS) IP Dialysis PRN, sodium chloride 0.9% (NS) IP Ryanne lysis PRN, sodium chloride 0.9% (NS) IP Dialysis PRN, vitamin A & D PRN Review of Systems: A 14 point review of systems was negative except for: Constitutional: positive f or fatigue Respiratory: positive for cough, sputum or dyspnea on exertion Gastrointestinal: positive for hunger Neuro: positive for dizziness while off of oxygen, that has resolved once her NC was replaced and sat increased. Objective: Vital Signs: Last Filed Vital Signs: 24 Fernanda r Range BP: 126/51 (10/01 914) Temp: 36.7 C (98.1 F) (10/01 914) Pulse: 93 (10/01 914) Respirations: 16 PER MINUTE (10/01 914) SpO2: 92 % (10/01 914) SpO2 Pulse: 84 (09/30 1830) BP: (102-147)/(43-107) Temp: [36.4 C (97.5 F)-37.3 C (99.1 F)] Pulse: [82-109] Respirations: [13 PER MINUTE-23 PER MINUTE] SpO2: [86 %-97 %] Intensity Pain Scale (Self Report): 8 (10/02/19 0800) Intensity Pain Scale (Self Report): 8 (10/02/19 0800) Vitals: 09/17/19 2350 09/19/19 1411 Weight: 77 kg (169 lb 12.1 oz) 76.7 kg (169 lb) Intake/Output Summary: (Last 24 hours) Intake/Output Summary (Last 24 hours) at 10/02/2019 1000 Last data filed at 10/01/2019 2141 Gross per 24 hour Intake 540 ml Output 1600 ml Net -1060 ml Stool Occurrence: 1 Physical Exam General: Alert, no distress, conjunctival pallor. She was off O2 this AM and O2 saturation of 75%, placed back on O2 and saturation quickly cheryl back to the low 90s. Neck: Supple, nontender, trachea midline Resp:Coarse rales and wheezes throughout lung adan, though wheezing reduced from exam yesterday. CV: Regular rate and rhythm, S1, S2 normal, no murmur. No peripheral edema. GI: Soft, non-tender. Bowel sounds normal. Neuro: No focal deficits, CN 2-12 grossly intact bilaterally, oriented x3. Psych: normal affect and mood, remote and recent memory intact Lab Review 24-hour labs: Results for orders placed or performed during the hospital encounter of 09/17/19 (from the past 24 hour(s)) CBC Collection Time: 10/01/19 3:30 PM Result Value Ref Range White Blood Cells 9.6 4.5 - 11.0 K/UL RBC 2.38 (L) 4.0 - 5.0 M/UL Hemoglobin 7.5 (L) 12.0 - 15.0 GM/DL Hematocrit 21.8 (L) 36 - 45 % MCV 91.8 80 - 100 FL MCH 31.6 26 - 34 PG MCHC 34.4 32.0 - 36.0 G/DL RDW 13.6 11 - 15 % Platelet Count 238 150 - 400 K/UL MPV 6.4 (L) 7 - 11 FL COMPREHENSIVE METABOLIC PANEL Collection Time: 10/01/19 3:30 PM Result Value Ref Range Sodium 141 137 - 147 MMOL/L Potassium 5.5 (H) 3.5 - 5.1 MMOL/L Chloride 103 98 - 110 MMOL/L Glucose 96 70 - 100 MG/DL Blood Urea Nitrogen 99 (H) 7 - 25 MG/DL Creatinine 8.16 (H) 0.4 - 1.00 MG/DL Calcium 9.0 8.5 - 10.6 MG/DL Total Protein 5.7 (L) 6.0 - 8.0 G/DL Total Bilirubin 0.4 0.3 - 1.2 MG/DL Albumin 2.7 (L) 3.5 - 5.0 G/DL Alk Phosphatase 254 (H) 25 - 110 U/L AST (SGOT) 17 7 - 40 U/L CO2 19 (L) 21 - 30 MMOL/L ALT (SGPT) 33 7 - 56 U/L Anion Gap 19 (H) 3 - 12 eGFR Non 5 (L) >60 mL/min eGFR 6 (L) >60 mL/min POC GLUCOSE Collection Time: 10/01/19 9:43 PM Result Value Ref Range Glucose, POC 84 70 - 100 MG/DL HEPATITIS B SURFACE AG Collection Time: 10/02/19 6:10 AM Result Value Ref Range HBsAg Non-Reactive: HBs antigen not detected [id number]: HBs antigen not detected HEPATITIS B CORE AB TOT (IGG+IGM) Collection Time: 10/02/19 6:10 AM Result Value Ref Range Anti HBc Total FIRAJ-Bho-Sjvoazim: Antibodies to HBV core antigen (anti-HBc Non-Reactive: Antibodies to HBV core antigen (anti-HBc)were not detected. HEPATITIS C AB Collection Time: 10/02/19 6:10 AM Result Value Ref Range Anti HCV Non-Reactive: Antibodies to HCV were not detected. [id number]-Rbp-Vxsnkupa: Antibodies to HCV were not detected. HIV-1/2 ANTIGEN/ANTIBODY SCREEN Collection Time: 10/02/19 6:10 AM Result Value Ref Range HIV 1 and 2 AG AB Screen [id number]-Yre-Lrcceekz: Negative for HIV-1 Ag and HIV-1/2 specif Non-Reactive: Negative for HIV-1 Ag and HIV-1/2 specific antibodies. PROTIME INR (PT) Collection Time: 10/02/19 6:10 AM Result Value Ref Range INR 1.5 (H) 0.8 - 1.2 BASIC METABOLIC PANEL Collection Time: 10/02/19 6:10 AM Result Value Ref Range Sodium 137 137 - 147 MMOL/L Potassium 4.6 3.5 - 5.1 MMOL/L Chloride 99 98 - 110 MMOL/L CO2 23 21 - 30 MMOL/L Anion Gap 15 (H) 3 - 12 Glucose 81 70 - 100 MG/DL Blood Urea Nitrogen 70 (H) 7 - 25 MG/DL Creatinine 6.47 (H) 0.4 - 1.00 MG/DL Calcium 9.1 8.5 - 10.6 MG/DL eGFR Non 6 (L) >60 mL/min eGFR 8 (L) >60 mL/min CBC AND DIFF Collection Time: 10/02/19 6:10 AM Result Value Ref Range White Blood Cells 8.6 4.5 - 11.0 K/UL RBC 2.59 (L) 4.0 - 5.0 M/UL Hemoglobin 8.1 (L) 12.0 - 15.0 GM/DL Hematocrit 23.9 (L) 36 - 45 % MCV 92.4 80 - 100 FL MCH 31.4 26 - 34 PG MCHC 33.9 32.0 - 36.0 G/DL RDW 13.5 11 - 15 % Platelet Count 271 150 - 400 K/UL MPV 6.8 (L) 7 - 11 FL Neutrophils 79 (H) 41 - 77 % Lymphocytes 5 (L) 24 - 44 % Monocytes 12 4 - 12 % Eosinophils 3 0 - 5 % Basophils 1 0 - 2 % Absolute Neutrophil Count 6.84 1.8 - 7.0 K/UL Absolute Lymph Count 0.44 (L) 1.0 - 4.8 K/UL Absolute Monocyte Count 1.06 (H) 0 - 0.80 K/UL Absolute Eosinophil Count 0.21 0 - 0.45 K/UL Absolute Basophil Count 0.05 0 - 0.20 K/UL PHOSPHORUS Collection Time: 10/02/19 6:10 AM Result Value Ref Range Phosphorus 4.7 (H) 2.0 - 4.5 MG/DL MAGNESIUM Collection Time: 10/02/19 6:10 AM Result Value Ref Range Magnesium 2.0 1.6 - 2.6 mg/dL POC GLUCOSE Collection Time: 10/02/19 8:38 AM Result Value Ref Range Glucose, POC 92 70 - 100 MG/DL Point of Care Testing (Last 24 hours) Glucose: 81 (10/02/19 0610) POC Glucose (Download): 92 (10/02/19 0871) Radiology and other Diagnostics Review: Pertinent radiology reviewed. Ben Stinson MD Pager [phone] * Maris Erazo - 10/02/2019 9:11 AM CDT PHYSICAL THERAPY PROGRESS NOTE Name: Mary Tim : 1950 Age: [age] y.o. Admission Date: 09/17/2019 LOS: 14 days Mobility Patient Turn/Position: Chair(pt up with PT) Progressive Mobility Level: Walk in hallway Distance Walked (feet): 60 ft Level of Assistance: Assist X1 Assistive Device: Walker Time Tolerated: 11-30 minutes Activity Limited By: Weakness;Shortness of air;Mental Status Variability Subjective Significant hospital events: PMH: back pain, cervical fusion, lumbar fusion, chr onic pain, HTN. Reason for admission: Progressively worsening weakness and fatig ue. Patient was found to have acute renal failure with hyperkalemia and anion ga p metabolic acidosis.renal biopsy 09/29. HD cathether placement 09/[address] anned for 09/30 and 10/01 for anticipation of improved renal function. Mental / Cognitive Status: Alert;Cooperative;Follows Commands(very pleasant; inc reased confusion today) Pain: Patient has no complaint of pain Pain Interventions: Patient agrees to participate in therapy Ambulation Assist: Independent Mobility in Community without Device Patient Owned Equipment: Single Point Cane;Roller Walker Home Situation: Lives Alone Type of Home: Mobile Home Entry Stairs: 3-5 Stairs;Rail on 1 Side In-Home Stairs: No Stairs Bed Mobility/Transfer Bed Mobility: Supine to Sit: Moderate Assist;Head of Bed Elevated;Assist with Tr unk(increased assist for bed mobility; decreased processing ) Transfer Type: Sit to Stand Transfer: Assistance Level: From;Bed;Standby Assist Transfer: Assistive Device: Roller Walker Transfers: Type Of Assistance: For Safety Considerations Other Transfer Type: Stand Pivot;Stand to Sit Other Transfer: Assistance Level: To;Toilet;Minimal Assist(poor eccentric contro l) Other Transfer: Assistive Device: Roller Walker Other Transfer: Type Of Assistance: For Safety Considerations End Of Activity Status: Up in Chair;Nursing Notified;Instructed Patient to Reque st Assist with Mobility;Instructed Patient to Use Call Light(TABS alarm activate d) Comments: assisted patient to bathroom. patient insistant ob removing hat from t oilet depsite zambrano placement. Gait Gait Distance: 60 feet Gait: Assistance Level: Minimal Assist Gait: Assistive Device: Roller Walker Gait: Descriptors: Pace: Slow;Decreased foot clearance RLE;Decreased foot cleara nce LLE;Decreased step length Activity Limited By: Complaint of Fatigue Comments: patient with increased pathway deviations, unable to ambulate further today, sats 91% on 8L O2 today. patient with increased oxygen needs over the las t 24 hours. patient also frequently taking nasal cannula off as well. Education Persons Educated: Patient Patient Barriers To Learning: None Noted Teaching Methods: Verbal Instruction Patient Response: Verbalized Understanding Topics: Plan/Goals of PT Interventions;Mobility Progression;Up with Assist Only; Importance of Increasing Activity;Ambulate With Nursing;Safety Awareness Assessment/Progress Assessment/Progress: Should Improve w/ Continued PT Comments: patient pleasant and willing to mobilize with therapy. patient appeare d more confused today and required increased level of assist with activity. linda ent with increased oxygen requirements as well as increased confusion with activ iities. will continue to moniotr patient progress appropriately while medical wo rk still ongoing. AM-PAC 6 Clicks Basic Mobility Inpatient Turning from your back to your side while in a flat bed without using bed rails: None Moving from lying on your back to sitting on the side of a flatbed without using bedrails : A Little Moving to and from a bed to a chair (including a wheelchair): A Little Standing up from a chair using your arms (e.g. wheelchair, or bedside chair): A Little To walk in hospital room: A Little Climbing 3-5 steps with a railing: A Little Raw Score: 19 Standardized (T-scale) Score: 42.48 Basic Mobility CMS 0-100%: 36.99 CMS G Code Modifier for Basic Mobility: CJ Goals Goal Formulation: With Patient Time For Goal Achievement: 5 days, To, 7 days Patient Will Transfer Bed/Chair: Independently Patient Will Ambulate: Greater than 200 Feet, w/ No Device, Independently Patient Will Go Up / Down Stairs: 3-5 Stairs, Independently Plan Treatment Interventions: Mobility Training Plan Frequency: 5 Days per Week Comments: sit to stand transfer practice, progressive gait distance, LE strength ening, endurance training PT Discharge Recommendations Recommendation: Inpatient setting(anticipated- not functionally independent and lives alone) Patient Currently Requires Equipment: Owns what is needed Therapist: Maris Erazo Date: 10/02/2019 * Moi Cates - 10/01/2019 6:52 PM CDT Brief GI follow up note The diffuse atrophy of the pancreas and the calculus do not explain her abdomina l symptoms. Her AST/ALT and Tbili are WNL. Alk phos is elevated, there is concer n for DLBCL found on renal biopsy. We will hold off on EUS given her new Dx of DLBCL and her renal failure with wor sening hyperkalemia. This is not an urgent procedure and can be done prior to di scharge or as outpatient once patient is stable and treatment is in plan. We will sign off, please page us with any questions or concerns. Patient was discussed with attending on service, Dr. Marroquin. Moi Cates MD Gastroenterology & Hepatology Fellow Pager [phone] * Nayeli Gandhi - 10/01/2019 2:24 PM CDT CLINICAL NUTRITION Clinical Nutrition Initial Assessment Name: Mary Tim : 1950 Age: [age] y.o. Admission Date: 09/17/2019 LOS: 13 days Recommendation: Regular vs Renal Diet pending PO intake and adequacy Offer protein supplements PRN Comments: Ms. Tim is a 69 yo F with PMH of HTN, cervical and lumbar spinal fusions, re ported RA who is admitted with acute renal failure, found to have abnormal chest CT findings concerning for possible ILD versus sarcoidosis. Progressively worse norman weakness and fatigue. Patient was found to have acute renal failure with hy perkalemia and anion gap metabolic acidosis. renal biopsy 09/29. Renal Following. HD catheter placement 09/30 with SLED planned for 09/30 and 10/01 for anticipation of improved renal function. No indication for acute HD at this time. Patient was previously assessed by RD and seen not at acute nutritional risk. Patient then developed a stage 3 pressure injury on L buttocks. Will start patient on Renal MVI. Patient cont to have good PO intake. Off unit majority of day , will f/u to discuss diet recommendations, current PO intake and adequacy. Nutrition Assessment of Patient: Admit Weight: 76.7 kg; ; Desired Weight: 66 kg BMI (Calculated): 29.01; BMI Categories Adult: Over Weight: 25-29.9; Appearance: Unable to observe Pertinent Allergies/Intolerances: unobtainable Pertinent Labs: K+ 5.4, phos 6.0, cr 7.99; Pertinent Meds: tums, Vit B-12, folic acid; Oral Diet Order: NPO at midnight; Current Oral Intake: NPO Estimated Calorie Needs: 2026-1843(28-32kcal/kg/desired wt) Estimated Protein Needs: 99-112(1.5-1.7g/kg/desired wt) Malnutrition Assessment: Does not meet criteria; ; ; ; ; Nutrition Focused Physical Assessment: Edema: No; ; Pressure Injury: L buttocks stg 3 Nutrition Diagnosis: Increased nutrient needs, specify:(kcal/protein) Etiology: demands for healing Signs & Symptoms: stage 3 pressure injury Intervention / Plan: order renal MVI monitor wt, lab trends and GI symptoms monitor PO intake and adequacy Goals: Verbalize understanding of diet Time Frame: Prior to discharge Prevent further skin breakdown Time Frame: Throughout stay Nayeli Gandhi MS, RD, [employer], LD Office: [phone] Voalte: [phone] * Kenji Peña DO - 10/01/2019 1:27 PM CDT Renal Progress Note Name: Mary Tim Today's Date: 10/01/2019 Admission Date: 09/17/2019 LOS: 13 days Assessment/Plan: Principal Problem: Acute renal failure (ARF) (HCC) Active Problems: Hyperkalemia High anion gap metabolic acidosis UTI (urinary tract infection) Physical debility ILD (interstitial lung disease) (HCC) Anemia Abnormal CT of the chest Abnormal abdominal CT scan Elevated CA 19-9 level Mary Tim is a 69 y.o. female # Non-oliguric Acute Kidney Injury - Unclear etiology at this time - S/p renal biopsy 09/29, preliminary results suggestive of malignancy; not yet f inalized # Elevated LFTs # HTN # Abnormal Chest CT - concerning for sarcoidosis vs hypersensitivity pneumonitis # Normocytic Anemia - had required a transfusion 09/24 Recommendations: - Preliminary Kidney biopsy with malignancy. Review biopsy with renal pathologis t today. Would consult oncology at this time. - Plan for short 2 hr session SLED on 10/01/19. Patient seen on dialysis - Will plan for another SLED on 10/02/19, - Unclear if patient will regain reasonable renal function moving forward. Will need 3 months of HD to determine if CKD has progressed to ESRD requiring intemit tent HD. Will depend on final pathology results and treatment regimen - Renal HD diet - Monitor daily weights - Avoid NSAIDs and contrast if possible - Avoid nephrotoxic medications - Renally dose medications - We will continue to follow Sharron Oakley, MS4 The patient was assessed and the appropriate management was discussed with Dr. Karine Peña D.O. Nephrology Fellow Pager #: This note was composed with Dragon Dictation. As such, there may be transcriptio nal errors. For questions, please contact Dr. Peña. Subjective Mary Tim is a 69 y.o. female. Patient reports she experienced no issues w ith her renal biopsy yesterday and that she continues to feel well today. She de nies any tenderness at the biopsy site, and the only pain she has now is chronic pain at baseline for her. She reports her mouth being very dry as she was NPO m uch of yesterday and was NPO again this morning. She has not been ambulating maribel y much. Medications Scheduled Meds:amitriptyline/gabapentin/emu oil(#) 4/4/10 % topical cream, , Top ical, Q8H amLODIPine (NORVASC) tablet 10 mg, 10 mg, Oral, QDAY cyanocobalamin (VITAMIN B-12) tablet 1,000 mcg, 1,000 mcg, Oral, QDAY folic acid (FOLVITE) tablet 1 mg, 1 mg, Oral, QDAY heparin (porcine) PF syringe 5,000 Units, 5,000 Units, Subcutaneous, Q8H* [START ON 10/02/2019] polyethylene glycol 3350 (MIRALAX) packet 34 g, 2 packet, O ral, QDAY senna (SENOKOT) tablet 2 tablet, 2 tablet, Oral, QHS sodium bicarbonate tablet 650 mg, 650 mg, Oral, BID sodium chloride 0.9 % infusion, 1,000 mL, Intravenous, ONCE vitamins, multi B, C, Zn & folate (Renal) (NEPHPLEX RX) tablet 1 tablet, 1 tablet, Oral, QDAY Continuous Infusions: PRN and Respiratory Meds:anticoagulant sodium citrate IP Dialysis PRN, bisacodyL QDAY PRN, calcium carbonate Q6H PRN, flumazeniL PRN, flumazeniL PRN, hydrALAZINE Q6H PRN, HYDROcodone/acetaminophen Q6H PRN, labetalol (NORMODYNE; TRANDATE) in jection Q6H PRN, melatonin QHS PRN, naloxone PRN, naloxone PRN, simethicone Q6H PRN, sodium chloride 0.9% (NS) IP Dialysis PRN, sodium chloride 0.9% (NS) IP Ryanne lysis PRN, sodium chloride 0.9% (NS) IP Dialysis PRN, vitamin A & D PRN Review of Systems: Constitutional: positive for fatigue, negative for fevers and chills Respiratory: positive for dyspnea on exertion, negative for cough Cardiovascular: negative for chest pain, palpitations, orthopnea Gastrointestinal: negative for nausea, vomiting, diarrhea and constipation Objective: Vital Signs: Last Filed Vital Signs: 24 Fernanda r Range BP: 118/55 (09/30 1700) Temp: 36.4 C (97.5 F) (09/30 1400) Pulse: 86 (09/300) Respirations: 23 PER MINUTE (09/30 1700) SpO2: 96 % (09/30 1699) SpO2 Pulse: 86 (09/30 1699) BP: (102-156)/(50-107) Temp: [36.4 C (97.5 F)-36.9 C (98.4 F)] Pulse: [84-109] Respirations: [15 PER MINUTE-23 PER MINUTE] SpO2: [86 %-97 %] Intensity Pain Scale (Self Report): 9 (10/01/19 1600) Intensity Pain Scale (Self Report): 7 (10/01/19 0904) Vitals: 09/17/19 2350 09/19/19 1411 Weight: 77 kg (169 lb 12.1 oz) 76.7 kg (169 lb) Intake/Output Summary: (Last 24 hours) Intake/Output Summary (Last 24 hours) at 10/01/2019 1728 Last data filed at 10/01/2019 1640 Gross per 24 hour Intake 270 ml Output 175 ml Net 95 ml Stool Occurrence: 0 Physical Exam General: Well-appearing and in no apparent distress. Neuro: Alert and oriented to person, place, and time. Cardio: Regular rate and rhythm without murmur or rub. No JVD appreciated. Pulmonary: Clear to auscultation bilaterally. GI: Normal bowel sounds x4. Mild diffuse abdominal TTP, most prominent in RUQ. M urphy sign (-). MSK: No lower extremity edema appreciated. Intermittent twitching in left upper extremity. Lab Review 24-hour labs: Results for orders placed or performed during the hospital encounter of 09/17/19 (from the past 24 hour(s)) CBC Collection Time: 10/01/19 12:05 AM Result Value Ref Range White Blood Cells 7.7 4.5 - 11.0 K/UL RBC 2.68 (L) 4.0 - 5.0 M/UL Hemoglobin 8.4 (L) 12.0 - 15.0 GM/DL Hematocrit 24.6 (L) 36 - 45 % MCV 91.7 80 - 100 FL MCH 31.2 26 - 34 PG MCHC 34.0 32.0 - 36.0 G/DL RDW 13.3 11 - 15 % Platelet Count 233 150 - 400 K/UL MPV 6.5 (L) 7 - 11 FL PROTIME INR (PT) Collection Time: 10/01/19 6:37 AM Result Value Ref Range INR 1.4 (H) 0.8 - 1.2 BASIC METABOLIC PANEL Collection Time: 10/01/19 6:37 AM Result Value Ref Range Sodium 141 137 - 147 MMOL/L Potassium 5.4 (H) 3.5 - 5.1 MMOL/L Chloride 104 98 - 110 MMOL/L CO2 19 (L) 21 - 30 MMOL/L Anion Gap 18 (H) 3 - 12 Glucose 81 70 - 100 MG/DL Blood Urea Nitrogen 92 (H) 7 - 25 MG/DL Creatinine 7.99 (H) 0.4 - 1.00 MG/DL Calcium 9.1 8.5 - 10.6 MG/DL eGFR Non 5 (L) >60 mL/min eGFR 6 (L) >60 mL/min CBC AND DIFF Collection Time: 10/01/19 6:37 AM Result Value Ref Range White Blood Cells 8.2 4.5 - 11.0 K/UL RBC 2.46 (L) 4.0 - 5.0 M/UL Hemoglobin 7.7 (L) 12.0 - 15.0 GM/DL Hematocrit 22.6 (L) 36 - 45 % MCV 91.9 80 - 100 FL MCH 31.4 26 - 34 PG MCHC 34.1 32.0 - 36.0 G/DL RDW 13.7 11 - 15 % Platelet Count 247 150 - 400 K/UL MPV 6.6 (L) 7 - 11 FL Neutrophils 77 41 - 77 % Lymphocytes 7 (L) 24 - 44 % Monocytes 14 (H) 4 - 12 % Eosinophils 1 0 - 5 % Basophils 1 0 - 2 % Absolute Neutrophil Count 6.42 1.8 - 7.0 K/UL Absolute Lymph Count 0.55 (L) 1.0 - 4.8 K/UL Absolute Monocyte Count 1.15 (H) 0 - 0.80 K/UL Absolute Eosinophil Count 0.07 0 - 0.45 K/UL Absolute Basophil Count 0.05 0 - 0.20 K/UL PHOSPHORUS Collection Time: 10/01/19 6:37 AM Result Value Ref Range Phosphorus 6.0 (H) 2.0 - 4.5 MG/DL MAGNESIUM Collection Time: 10/01/19 6:37 AM Result Value Ref Range Magnesium 2.0 1.6 - 2.6 mg/dL LDH-LACTATE DEHYDROGENASE Collection Time: 10/01/19 6:37 AM Result Value Ref Range Lactate Dehydrogenase 521 (H) 100 - 210 U/L URIC ACID Collection Time: 10/01/19 6:37 AM Result Value Ref Range Uric Acid 10.5 (H) 2.0 - 7.0 MG/DL POC GLUCOSE Collection Time: 10/01/19 9:36 AM Result Value Ref Range Glucose, POC 88 70 - 100 MG/DL CBC Collection Time: 10/01/19 3:30 PM Result Value Ref Range White Blood Cells 9.6 4.5 - 11.0 K/UL RBC 2.38 (L) 4.0 - 5.0 M/UL Hemoglobin 7.5 (L) 12.0 - 15.0 GM/DL Hematocrit 21.8 (L) 36 - 45 % MCV 91.8 80 - 100 FL MCH 31.6 26 - 34 PG MCHC 34.4 32.0 - 36.0 G/DL RDW 13.6 11 - 15 % Platelet Count 238 150 - 400 K/UL MPV 6.4 (L) 7 - 11 FL COMPREHENSIVE METABOLIC PANEL Collection Time: 10/01/19 3:30 PM Result Value Ref Range Sodium 141 137 - 147 MMOL/L Potassium 5.5 (H) 3.5 - 5.1 MMOL/L Chloride 103 98 - 110 MMOL/L Glucose 96 70 - 100 MG/DL Blood Urea Nitrogen 99 (H) 7 - 25 MG/DL Creatinine 8.16 (H) 0.4 - 1.00 MG/DL Calcium 9.0 8.5 - 10.6 MG/DL Total Protein 5.7 (L) 6.0 - 8.0 G/DL Total Bilirubin 0.4 0.3 - 1.2 MG/DL Albumin 2.7 (L) 3.5 - 5.0 G/DL Alk Phosphatase 254 (H) 25 - 110 U/L AST (SGOT) 17 7 - 40 U/L CO2 19 (L) 21 - 30 MMOL/L ALT (SGPT) 33 7 - 56 U/L Anion Gap 19 (H) 3 - 12 eGFR Non 5 (L) >60 mL/min eGFR 6 (L) >60 mL/min Point of Care Testing (Last 24 hours) Glucose: 96 (10/01/19 1530) POC Glucose (Download): 88 (10/01/19 0936) Radiology and other Diagnostics Review: IR CENTRAL VENOUS CATHETER Final Result Successful image-guided placement of tunneled hemodialysis catheter. Jonathan Pinto M.D, the attending radiologist, was present for the criti luis fernando and ruiz portions of the procedure with an advanced practice provider, reside nt, and/or fellow participating. Overlapping portions were non ruiz and I was im mediately available. I interpret the critical and ruiz portion of this procedure to have been the procedural time out and needle access. @TT Approved by Alonso Farfan D.O. on 10/01/2019 1:39 PM By my electronic signature, I attest that I have personally reviewed the images for this examination and formulated the interpretations and opinions expressed i n this report Finalized by Jonathan Shirley M.D. on 10/01/2019 1:45 PM. Dictated by Alonso Farfan D.O. on 10/01/2019 1:37 PM. IR RENAL BIOPSY Final Result Successful ultrasound guided left kidney biopsy as described. Specimen was co nfirmed adequate by the cytopathologist at time of procedure. Mak Pinto M.D., the attending radiologist, was present for the procedure, pe rsonally reviewed the images, and formulated the interpretations and opinions ex pressed in this report. @TT Finalized by MAK LYNCH on 09/30/2019 1:35 PM. Dictated by MAK LYNCH on 09/30/2019 1:[address] ABD/PELV WO CONTRAST Final Result 1. Abnormalities involving the liver, gallbladder, kidneys, right adrenal gland and retroperitoneum. Leading consideration is lymphoma. Erdheim-Lanc[place] disease and IgG-4 related disease are additional considerations. 2. Mild diffuse enlargement of the kidneys with ill-defined soft tissue thickeni ng in the renal pelves and asymmetric perinephric stranding. 3. Mild nodular enlargement of the right adrenal gland with ill-defined strandin g. 4. Mild central retroperitoneal lymphadenopathy. Mild diffuse soft tissue thicke norman in the presacral space in the pelvis may represent additional lymphadenopat hy. 5. Multiple small hypodense hepatic lesions 6. Diffuse enlargement of the gallbladder with pericystic stranding. Acute michela cystitis should also be considered for this finding. 7. Abnormal low attenuation tissue in the body and tail of the pancreas with a s mall calculus towards the midline. This low-attenuation tissue most likely repre sents a dilated main pancreatic duct. Dr. Hoyt discussed these findings with Dc by telephone at 1:55 PM 09/26/2019 Finalized by Lasha Hoyt M.D. on 09/26/2019 1:57 PM. Dictated by Lasha Hoyt M.D. on 09/26/2019 1:[address] CHEST WO CONTRAST Final Result Abnormal Addendum 1 of 1 Finalized by Eric Brennan M.D. on 09/25/2019 8:21 AM. Dictated by Eric Brennan M.D. on 09/25/2019 8:04 AM.Addendum: Additionally there is an indeterminate right hepatic lobe hypoattenuating lesion as well as a dilated gallbladder. These findings could be further evaluated with abdomen and pelvis CT with contrast and liver protocol. CRITICAL FINDINGS: The above impressions were verbally communicated by telephone to Dr. Palua by Dr. Brennan at 09/25/2019 8:40 AM. Finalized by Eric Brennan M.D. on 09/25/2019 8:40 AM. Dictated by Eric Brennan M.D. on 09/25/2019 8:38 AM. Final CHEST 2 VIEWS Final Result Areas of fibrosis. Superimposed opacities may be due to atelectasis, pneumonia a nd/or scarring. CT chest is recommended for further evaluation. By my electronic signature, I attest that I have personally reviewed the images for this examination and formulated the interpretations and opinions expressed i n this report Finalized by Carmela Lane M.D. on 09/24/2019 3:10 PM. Dictated by Yakelin cutler M.D. on 09/24/2019 2:26 PM. 2D + DOPPLER ECHO Final Result US RENAL BLADDER COMPLETE Final Result 1. Symmetric, normal renal size. 2. Patent renal vessels. No evidence of hemodynamically significant renal arter y stenosis. 3. Elevated intrarenal resistivity, most compatible with a nonspecific, diffuse parenchymal disease. Finalized by Brenda Stahl M.D. on 09/18/2019 12:17 PM. Dictated by Alexis Jovel on 09/18/2019 9:16 AM. US DOPPLER ABD PELV RETROPER COMP Final Result 1. Symmetric, normal renal size. 2. Patent renal vessels. No evidence of hemodynamically significant renal arter y stenosis. 3. Elevated intrarenal resistivity, most compatible with a nonspecific, diffuse parenchymal disease. Finalized by Brenda Stahl M.D. on 09/18/2019 12:17 PM. Dictated by Alexis Jovel on 09/18/2019 9:16 AM. GENERAL RAD CHEST EXTERNAL IMAGING Final Result Kenji Peña DO Pager Associated attestation - Levar Coleman DO - 10/01/2019 7:47 PM CDT ATTESTATION Ms. Tim has worsening renal failure now complicated by hyperkalemia and hype rphosphatemia. She has IgG kappa paraproteinemia and malignant atypical cells in her kidney that appear possible DLBCL or plasma cells but CD25 stain and lympho ma panel is in progress and will be back tomorrow. She has injury and loss of tu bules and only 1 glomeruli was seen on light microscopy that was sclerotic. We a sked oncology/hematology to get on board. I saw her on dialysis and she was slee ping with normal blood pressure and stable. I personally performed the ruiz portions of the E/M visit, discussed case with th e fellow and concur with fellow documentation of history, physical exam, assessm ent, and treatment plan unless otherwise noted. Staff name: Levar Coleman DO * Jade Fuchs RN - 10/01/2019 12:49 PM CDT Wound Ostomy Note NAME:Mary Tim :1950 AGE: 69 y.o. ADMISSION DATE: 09/17/2019 DAYS ADMITTED: LOS: 13 days Reason for Consult/Visit: pressure injury Stage II or greater Assessment/Plan: Principal Problem: Acute renal failure (ARF) (HCC) Active Problems: Hyperkalemia High anion gap metabolic acidosis UTI (urinary tract infection) Physical debility ILD (interstitial lung disease) (HCC) Anemia Abnormal CT of the chest Abnormal abdominal CT scan Elevated CA 19-9 level Attempted to follow up RE: bedside nurse concern for woud to right buttocks Pt up in chair / currently in IR Will follow up at another time Jade Fuchs RN, BSN, [facility] Wound Ostomy Nursing Consult Service Office: [phone] Pager: [phone] [facility] Nursing Unit: [id number] * Jie Rivero RN - 10/01/2019 12:40 PM CDT Sedation physician present in room. Recent vitals and patient condition reviewe d between sedating physician and nurse. Reassessment completed. Determination made to proceed with planned sedation. * Reji Read MD - 10/01/2019 11:39 AM CDT Pulmonary Progress Note Name: Mary Tim Today's Date: 10/01/2019 Admission Date: 09/17/2019 LOS: 13 days Assessment/Plan: Principal Problem: Acute renal failure (ARF) (HCC) Active Problems: Hyperkalemia High anion gap metabolic acidosis UTI (urinary tract infection) Physical debility ILD (interstitial lung disease) (HCC) Anemia Abnormal CT of the chest Abnormal abdominal CT scan Elevated CA 19-9 level Ms. Tim is a 69 yo F with PMH of HTN, cervical and lumbar spinal fusions, re ported RA who is admitted withacute renal failure, found to have abnormal ches t CT findings concerning for possible ILD versus sarcoidosis. #Abnormal chest CT - Patchy interstitial opacities associated with airways,shukri picious for sarcoidosis versus hypersensitivity pneumonitis. - ILD Labs largely negative except for elevated Aldolase at 9.2. - Urine Ca random 0.7 and IgG4 within normal range. - PFTs consistent with restrictive pattern. - IR Renal Biopsy 09/29, results pending. > Bronchoscopy biopsy results pending, will follow up results and continue workup as outpatient. > [place] Myositis Marker Panel Labs sent with elevated Aldolase, will follow up results as above. > Continue incentive spirometry as ordered and supplemental O2 as needed. > Ordered Cu and Zn labs, will f/u with results. Case discussed with Dr. Read. ATTESTATION I personally performed the ruiz portions of the E/M visit, discussed case with re radha and concur with resident documentation of history, physical exam, assessm ent, and treatment plan unless otherwise noted. Staff name: Reji Read MD Date: 10/01/2019 Subjective Mary Tim is a 69 y.o. female. Patient reports feeling largely the same t his morning as she did yesterday. She denies any new or worsening shortness of b reath, difficulty breathing or pain. Medications Scheduled Meds:amitriptyline/gabapentin/emu oil(#) 4/4/10 % topical cream, , Top ical, Q8H [MAR Hold] amLODIPine (NORVASC) tablet 10 mg, 10 mg, Oral, QDAY [MAR Hold] cyanocobalamin (VITAMIN B-12) tablet 1,000 mcg, 1,000 mcg, Oral, QDAY [MAR Hold] folic acid (FOLVITE) tablet 1 mg, 1 mg, Oral, QDAY [MAR Hold] heparin (porcine) PF syringe 5,000 Units, 5,000 Units, Subcutaneous, Q8H* [MAR Hold] polyethylene glycol 3350 (MIRALAX) packet 34 g, 2 packet, Oral, QDAY [MAR Hold] senna (SENOKOT) tablet 2 tablet, 2 tablet, Oral, QHS [MAY Hold] sodium bicarbonate tablet 650 mg, 650 mg, Oral, BID Continuous Infusions: PRN and Respiratory Meds:[MAY Hold] anticoagulant sodium citrate IP Dialysis PRN , [MAY Hold] bisacodyL QDAY PRN, [MAY Hold] calcium carbonate Q6H PRN, flumazeni L PRN, hydrALAZINE Q6H PRN, [MAY Hold] HYDROcodone/acetaminophen Q6H PRN, labeta lol (NORMODYNE; TRANDATE) injection Q6H PRN, [MAY Hold] melatonin QHS PRN, nalox one PRN, [MAY Hold] simethicone Q6H PRN, [MAY Hold] sodium chloride 0.9% (NS) IP Dialysis PRN, [MAY Hold] sodium chloride 0.9% (NS) IP Dialysis PRN, [MAY Hold] sodium chloride 0.9% (NS) IP Dialysis PRN, [MAY Hold] vitamin A & D PRN Review of Systems: A 14 point review of systems was negative except for: Constitutional: positive f or fatigue and malaise Respiratory: positive for wheezing or dyspnea on exertion Cardiovascular: positive for tachypnea Objective: Vital Signs: Last Filed Vital Signs: 24 Fernanda r Range BP: 133/58 (09/30 926) Temp: 36.6 C (97.9 F) (09/30 926) Pulse: 97 (09/30 926) Respirations: 18 PER MINUTE (09/30 926) SpO2: 87 % (09/30 926) SpO2 Pulse: 95 (09/29 1215) BP: (118-156)/(48-71) Temp: [36.5 C (97.7 F)-36.8 C (98.3 F)] Pulse: [78-97] Respirations: [18 PER MINUTE-22 PER MINUTE] SpO2: [87 %-94 %] Intensity Pain Scale (Self Report): 8 (10/01/19 1000) Intensity Pain Scale (Self Report): 7 (10/01/19 0904) Vitals: 09/17/19 2350 09/19/19 1411 Weight: 77 kg (169 lb 12.1 oz) 76.7 kg (169 lb) Intake/Output Summary: (Last 24 hours) Intake/Output Summary (Last 24 hours) at 10/01/2019 1139 Last data filed at 10/01/2019 0532 Gross per 24 hour Intake 0 ml Output 300 ml Net -300 ml Stool Occurrence: 0 Physical Exam General: Alert, no distress. Conjunctival pallor Neck: Supple, nontender, trachea midline Resp:Coarse rales and wheezes throughout lung adan. CV: Regular rate and rhythm, S1, S2 normal, no murmur. No peripheral edema. GI: Soft, non-tender. Bowel sounds normal. Neuro: No focal deficits, CN 2-12 grossly intact bilaterally, oriented x3 Psych: normal affect and mood, remote and recent memory intact Lab Review 24-hour labs: Results for orders placed or performed during the hospital encounter of 09/17/19 (from the past 24 hour(s)) CBC Collection Time: 09/30/19 3:14 PM Result Value Ref Range White Blood Cells 7.0 4.5 - 11.0 K/UL RBC 2.60 (L) 4.0 - 5.0 M/UL Hemoglobin 7.8 (L) 12.0 - 15.0 GM/DL Hematocrit 23.9 (L) 36 - 45 % MCV 92.0 80 - 100 FL MCH 30.1 26 - 34 PG MCHC 32.7 32.0 - 36.0 G/DL RDW 13.2 11 - 15 % Platelet Count 247 150 - 400 K/UL MPV 6.6 (L) 7 - 11 FL CBC Collection Time: 10/01/19 12:05 AM Result Value Ref Range White Blood Cells 7.7 4.5 - 11.0 K/UL RBC 2.68 (L) 4.0 - 5.0 M/UL Hemoglobin 8.4 (L) 12.0 - 15.0 GM/DL Hematocrit 24.6 (L) 36 - 45 % MCV 91.7 80 - 100 FL MCH 31.2 26 - 34 PG MCHC 34.0 32.0 - 36.0 G/DL RDW 13.3 11 - 15 % Platelet Count 233 150 - 400 K/UL MPV 6.5 (L) 7 - 11 FL PROTIME INR (PT) Collection Time: 10/01/19 6:37 AM Result Value Ref Range INR 1.4 (H) 0.8 - 1.2 BASIC METABOLIC PANEL Collection Time: 10/01/19 6:37 AM Result Value Ref Range Sodium 141 137 - 147 MMOL/L Potassium 5.4 (H) 3.5 - 5.1 MMOL/L Chloride 104 98 - 110 MMOL/L CO2 19 (L) 21 - 30 MMOL/L Anion Gap 18 (H) 3 - 12 Glucose 81 70 - 100 MG/DL Blood Urea Nitrogen 92 (H) 7 - 25 MG/DL Creatinine 7.99 (H) 0.4 - 1.00 MG/DL Calcium 9.1 8.5 - 10.6 MG/DL eGFR Non 5 (L) >60 mL/min eGFR 6 (L) >60 mL/min CBC AND DIFF Collection Time: 10/01/19 6:37 AM Result Value Ref Range White Blood Cells 8.2 4.5 - 11.0 K/UL RBC 2.46 (L) 4.0 - 5.0 M/UL Hemoglobin 7.7 (L) 12.0 - 15.0 GM/DL Hematocrit 22.6 (L) 36 - 45 % MCV 91.9 80 - 100 FL MCH 31.4 26 - 34 PG MCHC 34.1 32.0 - 36.0 G/DL RDW 13.7 11 - 15 % Platelet Count 247 150 - 400 K/UL MPV 6.6 (L) 7 - 11 FL Neutrophils 77 41 - 77 % Lymphocytes 7 (L) 24 - 44 % Monocytes 14 (H) 4 - 12 % Eosinophils 1 0 - 5 % Basophils 1 0 - 2 % Absolute Neutrophil Count 6.42 1.8 - 7.0 K/UL Absolute Lymph Count 0.55 (L) 1.0 - 4.8 K/UL Absolute Monocyte Count 1.15 (H) 0 - 0.80 K/UL Absolute Eosinophil Count 0.07 0 - 0.45 K/UL Absolute Basophil Count 0.05 0 - 0.20 K/UL PHOSPHORUS Collection Time: 10/01/19 6:37 AM Result Value Ref Range Phosphorus 6.0 (H) 2.0 - 4.5 MG/DL MAGNESIUM Collection Time: 10/01/19 6:37 AM Result Value Ref Range Magnesium 2.0 1.6 - 2.6 mg/dL POC GLUCOSE Collection Time: 10/01/19 9:36 AM Result Value Ref Range Glucose, POC 88 70 - 100 MG/DL Point of Care Testing (Last 24 hours) Glucose: 81 (10/01/19 0637) POC Glucose (Download): 88 (10/01/19 0997) Radiology and other Diagnostics Review: Pertinent radiology reviewed. Ben Stinson MD Pager [phone] * Yisel Carlos MD - 10/01/2019 10:24 AM CDT ATTESTATION I personally performed or re-performed the history, physical exam and treatment for the E/M. I discussed the case with the Medical Student, and concur with the Medical Student documentation of history, physical exam and treatment plan unles s otherwise noted. Discussed with Dr. Coleman. Kidney biopsy has appearance of DLBCL. Hematology con sulted. Staff name: Yisel Carlos MD Date: 10/01/2019 General Progress Note Name: Mary Tim Today's Date: 10/01/2019 Admission Date: 09/17/2019 LOS: 13 days Assessment/Plan: Principal Problem: Acute renal failure (ARF) (HCC) Active Problems: Hyperkalemia High anion gap metabolic acidosis UTI (urinary tract infection) Physical debility ILD (interstitial lung disease) (HCC) Anemia Abnormal CT of the chest Abnormal abdominal CT scan Elevated CA 19-9 level 69 y.o.femalewith PMHx ofHTN and cervical (C3-C7) and lumbar (L3-L5) spina l fusionswho presentedfor progressively worsening weakness and fatigue and w as found to have acute renal failure with hyperkalemia and anion gap metabolic a cidosis ROSHAN;unclear etiology. Given extensive CT abdomen findings concern for system ic disease causing possible tubulointerstitial nephritis - likely ATN, Nephrology noted muddy brown casts and pyuria on microscopy - 7 at presentation, small improvement with IVF. Creatinine trended up to 6.94 today. - Renal US unremarkable - UPr:Cr 0.9, - Renal consulted, discussed with . Plan to replace Zambrano given diste nded urinary bladder and large kidneys and renal pelvis. - f/u on renal bx Plan - Monitor I&Os - BMP QD > Post-Biopsy Instructions: - Keep patient on bed rest for 6 hours after biopsy (use bedpan only). Keep HO B <30 degrees - Monitor and record vitals Q15 min X 1 hour, then Q30 min X 1 hour, then Q1 fernanda r X six hours - Keep BP less than 145/90 - Check CBC 5 hours after renal biopsy. - If patient has severe pain, hematuria, hypotension or drop in Hb please get CT Abd/pelvis without contrast >IR today for HD catheter placement. HD line placement. Plan for 2 hour session of HD today Abnormal CT abdomen pelvis;concern for systemic disease likleyIgG-4 related disease - CT abdomen pelvis was done for evaluation of liver lesion seen on CT chest. - Patient has minimal symptoms of vague abdominal discomfort and constipation - CT abdomenandpelvis showed multiple findings abnormalities involving the l iver, gallbladder, kidneys, right adrenal gland and retroperitoneum. Leading con sideration is lymphoma. [place] disease and IgG-4 related disease are ad ditional considerations. > Mild diffuse enlargement of the kidneys with ill-defined soft tissue thickening in the renal pelves and asymmetric perinephric stranding. Mild nodular enlargement of the right adrenal gland with ill-defined stranding. Mild central retroperitoneal lymphadenopathy. Mild diffuse soft tissue thickening in the presacral space in the pelvis may represent additional lymphadenopathy. Multiple small hypodense hepatic lesions. Diffuse enlargement of the gallbladder with pericystic stranding. Acute cholecystitis should also be considered for this finding.. Abnormal low attenuation tissue in the body and tail of the pancreas with a small calculus towards the midline. This low-attenuation tissue most likely represents a dilated main pancreatic duct. -lipase 118, CA-19 93 Plan -f/uflow cytometry - Hematology consulted after reviewing imaging; they felt low suspicion for lymp niya did not feel like the need to be monitored at this point. May reconsult if needed again. -GI consulted consult. Plan for EUS today UTI, resolved - UA shows blood and pyuria - UCx with e. coli and enterobacter. Sensitive to Rocephin - completedrocephin for 7 days09/25 Hyperkalemia - aggressively treated prior to transfer - continue to monitor, 5.4 today - Dialysis today Constipation - Miralax, senokot, suppository AGMA -Sodium Bicarb tablet 650mg PO BID -Monitor Dyspnea, Fatigue; CT chestconcerning for ILD: Sarcoidosis versus hypersensitiv ity pneumonitis - CXR at OSH without acute process - Echo normal - Repeat chest x-ray showed areas of fibrosis, suprabasal opacities may be due t o atelectasis, pneumonia and/or scarring. - CT chest showed right greater than left peribronchovascular and subpleural ret iculation and architectural distortion with mid lung zone predominance most comp atible with fibrosing interstitial lung disease. - Leading considerations for this pattern of fibrosis would include sarcoidosis especially given mediastinal and hilar lymph nodes or potentially the fibrotic f orm of hypersensitivity pneumonitis. - Does have arthritic pain in her hand joints and feet, family history of lupus - BAL was unremarkable - ILD Labs largely negative except for elevated Aldolase at 9.2. - Urine Ca random 0.7 and IgG4 within normal range. - PFTs consistent with restrictive pattern - New developing cough with sputum production reported 09/29; audible crackles he keyanna on auscultation at RLL Plan - Pulmonology consulted - Plan for EUS - Attention on short-term follow-up CT in 3 months time to reassess. - Bronchoscopy biopsy results pending, will follow up results and continue ramon p as outpatient. - [place]-Marker Panel Labs sent with elevated Aldolase, will follow up results as above. - Continue incentive spirometry as ordered and supplemental O2 as needed, if cou gh worsens, do CXR HTN - hold CECE, HCTZ - Blood pressure mildly elevated. On Norvasc 10mg - BP control, less than 140/90. Labetalol prn, hydralazine prn, Chronic Back Pain -conthydrocodone - emu oil prn Normocytic Anemia - Status post 1 PRBC09/24.hemoglobin around 10.Transfuse if hemoglobin less than 7 - Iron studies showed mixed picture of iron deficiency and anemia of chronic d isease - B12 and folate low, started replacement - LDH elevated. Haptoglobin normal. Peripheral smear showed normocytic anemia. Absolute lymphocytopenia. Mild monocytosis. Mild Transaminitis, resolved - hepatitis panel; negative - trend Physical debility - PT OT eval.recommending inpatient.Patient agreeable for rehab. SW To ashli t with placement FEN: No IVF, BMP Q, NPO today Code: Full, discussed on admit PPx: HsQ Dispo: Continue inpatient forevaluation and management ofpersistent severe A KI, anemia andgrossly abnormal CT chest and abdomen pelvis concerning for a sy stemic disease. PT OT recommending inpatient Subjective Mary Tim is a 69 y.o. female. Patient reports feeling okay. She has a mo derate-severe amount of back pain. Again she was not able well last night. A sma ll bowel movement was reported. Reports a mild cough with some sputum production . Denies fevers and chills. No n/v. Medications Scheduled Meds:amitriptyline/gabapentin/emu oil(#) 4/4/10 % topical cream, , Top ical, Q8H amLODIPine (NORVASC) tablet 10 mg, 10 mg, Oral, QDAY cyanocobalamin (VITAMIN B-12) tablet 1,000 mcg, 1,000 mcg, Oral, QDAY folic acid (FOLVITE) tablet 1 mg, 1 mg, Oral, QDAY heparin (porcine) PF syringe 5,000 Units, 5,000 Units, Subcutaneous, Q8H* polyethylene glycol 3350 (MIRALAX) packet 17 g, 1 packet, Oral, QDAY senna (SENOKOT) tablet 2 tablet, 2 tablet, Oral, QHS sodium bicarbonate tablet 650 mg, 650 mg, Oral, BID Continuous Infusions: PRN and Respiratory Meds:anticoagulant sodium citrate IP Dialysis PRN, bisacodyL QDAY PRN, calcium carbonate Q6H PRN, flumazeniL PRN, hydrALAZINE Q6H PRN, HYDRO codone/acetaminophen Q6H PRN, labetalol (NORMODYNE; TRANDATE) injection Q6H PRN, melatonin QHS PRN, naloxone PRN, simethicone Q6H PRN, sodium chloride 0.9% (NS) IP Dialysis PRN, sodium chloride 0.9% (NS) IP Dialysis PRN, sodium chloride 0.9% (NS) IP Dialysis PRN, vitamin A & D PRN Review of Systems: Constitutional: negative for fevers and chills Eyes: negative for visual disturbance and irritation Ears, nose, mouth, throat, and face: positive for dry mouth, negative for tinnit us, ear drainage, nasal congestion, sore throat and hoarseness Respiratory: positive for dyspnea on exertion, positive for cough and sputum, ne gative for hemoptysis or pleurisy/chest pain Cardiovascular: negative for chest pain, chest pressure/discomfort, palpitations , irregular heart beats Gastrointestinal: positive for constipation and abdominal pain, negative for marcin james, diarrhea and jaundice Genitourinary:positive for decreased urine output, negative for dysuria and nancy turia Objective: Vital Signs: Last Filed Vital Signs: 24 Fernanda r Range BP: 133/58 (09/30 926) Temp: 36.6 C (97.9 F) (09/30 926) Pulse: 97 (09/30 926) Respirations: 18 PER MINUTE (09/30 926) SpO2: 87 % (09/30 926) SpO2 Pulse: 95 (09/29 1215) BP: (109-156)/(48-75) Temp: [36.5 C (97.7 F)-36.8 C (98.3 F)] Pulse: [78-99] Respirations: [14 PER MINUTE-25 PER MINUTE] SpO2: [87 %-99 %] Intensity Pain Scale (Self Report): 8 (10/01/19 1000) Intensity Pain Scale (Self Report): 7 (10/01/19 0904) Vitals: 09/17/19 2350 09/19/19 1411 Weight: 77 kg (169 lb 12.1 oz) 76.7 kg (169 lb) Intake/Output Summary: (Last 24 hours) Intake/Output Summary (Last 24 hours) at 10/01/2019 1024 Last data filed at 10/01/2019 0532 Gross per 24 hour Intake 0 ml Output 300 ml Net -300 ml Stool Occurrence: 0 Physical Exam General: Alert, no distress. Conjunctival pallor Neck: Supple, nontender, no JVD or lymphadenopathy Resp: Coarse rales and crackles at RLL CV: Regular rate and rhythm, S1, S2 normal, no murmur. No peripheral edema. GI: Soft, non-tender. Bowel sounds normal. Neuro: No focal deficits, CN 2-12 grossly intact bilaterally, oriented x3 Psych: normal affect and mood, remote and recent memory intact Lab Review Hematology: Lab Results Component Value Date HGB 7.7 10/01/2019 HCT 22.6 10/01/2019 PLTCT 247 10/01/2019 WBC 8.2 10/01/2019 NEUT 77 10/01/2019 ANC 6.42 10/01/2019 ALC 0.55 10/01/2019 WILLIE 14 10/01/2019 AMC 1.15 10/01/2019 ABC 0.05 10/01/2019 MCV 91.9 10/01/2019 MCHC 34.1 10/01/2019 MPV 6.6 10/01/2019 RDW 13.7 10/01/2019 and General Chemistry: Lab Results Component Value Date NA 141 10/01/2019 K 5.4 10/01/2019 CL 104 10/01/2019 GAP 18 10/01/2019 BUN 92 10/01/2019 CR 7.99 10/01/2019 GLU 81 10/01/2019 CA 9.1 10/01/2019 ALBUMIN 2.8 09/25/2019 LACTIC 2.1 09/27/2019 MG 2.0 10/01/2019 TOTBILI 0.3 09/25/2019 Point of Care Testing (Last 24 hours) Glucose: 81 (10/01/19 0637) POC Glucose (Download): 88 (10/01/19 0936) Radiology and other Diagnostics Review: Pertinent radiology reviewed. Jade Bejarano MS * Tess Becerra, OT - 10/01/2019 9:46 AM CDT OCCUPATIONAL THERAPY PROGRESS NOTE Name: Mary Tim : 1950 Age: [age] y.o. Admission Date: 09/17/2019 LOS: 13 days Mobility Patient Turn/Position: Chair Progressive Mobility Level: Walk in hallway Distance Walked (feet): 10 ft Level of Assistance: Stand by assistance Assistive Device: Walker Time Tolerated: 11-30 minutes Activity Limited By: Weakness;Fatigue;Patient request to stop Subjective Pertinent Dx per Physician: PMH: back pain, cervical fusion, lumbar fusion, & chronic pain- admit with worsening weakness/fatigue & found to have acute renal failure with hyperkalemia & anion gap metabolic acidosis Precautions: Falls Pain / Complaints: Patient demonstrates nonverbal signs of pain;Patient agrees t o participate in therapy Pain Location: Back("This chair is not great.") Comments: Presents seated in chair upon room entry. Objective Psychosocial Status: Willing and Cooperative to Participate Persons Present: Provider Home Living Type of Home: Mobile Home Home Layout: One Level;Stairs to Enter w/ Rails(3-5 stairs w/ rail to enter) Bathroom Shower / Tub: Tub/Shower Unit Bathroom Toilet: Standard Bathroom Equipment: Grab Bars in Shower;Shower Chair Prior Function Level Of [place]: Independent with ADLs and functional transfers;Independen t with homemaking w/ ambulation Lives With: Alone Receives Help From: None Needed Other Function Comments: Denies recent h/o falls but does report falling ~6 year s ago in her bathtub which ultimately resulted in her back surgeries. Lives devora e with no assist available. Pt reports that she plans to return home with her 88 y.o. sister and upcyrhd-ei-vby. Indicates that they both use walkers and take c are of eachother. Pt also reports that her sister has a paid caregiver to assist with IADLs whom will likely provide her with transportation home at discharge. ADL's Where Assessed: Standing at Sink;Chair Grooming Assist: Stand By Assist Grooming Deficits: Standing With Assistive Device;Supervision/Safety;Verbal Cuei ng;Teeth Care LE Dressing Assist: Stand By Assist LE Dressing Deficits: Don/Doff R Sock;Don/Doff L Sock Toileting Assist: Maximum Assist Toileting Deficits: Perineal Hygiene Comment: Participated in oral hygiene/denture care while standing at the sink x 2-3 min with SBA. Required verbal cues for adequate walker mgmt. Pt noted to be seeping stool while standing at sink requiring max assist for pericare. Requeste d to return to resting position in chair d/t increasing fatigue in standing. Dem onstrated ability to don/doff socks while seated in chair with SBA and increased time while using crossover technique. ADL Mobility Transfer Type: Sit to/from stand Transfer: Assistance Level: From;Bedside chair Transfer: Assistive Device: Roller walker Transfer: Type of Assistance: For safety considerations;Requires extra time Other Transfer Type: Sit to/from stand Other Transfer: Assistance Level: To/from;Toilet(CGA) Other Transfer: Assistive Device: Roller walker Other Transfer: Type of Assistance: For safety considerations;For strength defic it;Verbal cues;For balance End of Activity Status: Up in chair(Alarm activated and all needs within reach.) Transfer Comments: Requires verbal cues for safe walker positioning at sink as w ell as duirng descent ot chair. Gait Distance: 8 feet Gait: Assistance Level: Standby assist Gait: Assistive Device: Roller walker Activity Tolerance Endurance: 2/5 Tolerates 10-20 Minutes Exercise w/Multiple Rests Comment: Verbalizes increased feelings of fatigue with minimal activity. Assessment Assessment: Decreased ADL Status;Decreased Endurance;Decreased Self-Care Trans;D ecreased High-Level ADLs Prognosis: Good Goal Formulation: Patient Comments: Pt with decreased activity tolerance and likely some generalized weakn ess associated with recent medical events and prolonged acute stay. Would most g reatly benefit from inpatient setting for continued therapy at d/c as pt lives a lone with no available assist and would be at increased risk for falls. AM-PAC 6 Clicks Daily Activity Inpatient Putting on and taking off regular lower body clothes?: A Lot Bathing (Including washing, rinsing, drying): A Little Toileting, which includes using toilet, bedpan, or urinal: A Little Putting on and taking off regular upper body clothing: None Taking care of personal grooming such as brushing teeth: None Eating meals?: None Daily Activity Raw Score: 20 Standardized (t-scale) score: 42.03 CMS 0-100% Score: 38.32 CMS G Code Modifier: CJ Plan Progress: Progressing Toward Goals OT Frequency: 3-5x/week OT Plan for Next Visit: Standing endurance for ADLs, toileting + toilet transfer . ADL Goals Patient Will Perform Grooming: Standing at Sink;w/ Mod Independent Patient Will Perform LE Dressing: w/ Modified Independent Patient Will Perform Toileting: w/ Modified Independent Functional Transfer Goals Pt Will Perform All Functional Transfers: Modified Independent, w/ Good Judgment /Safety OT Discharge Recommendations Recommendation: Inpatient setting Patient Currently Requires Equipment: Walker with wheels Therapist: MARBELLA Epps R/L [id number] Date: 10/01/2019 * Maris Erazo - 10/01/2019 9:05 AM CDT PHYSICAL THERAPY PROGRESS NOTE Name: Mary Tim : 1950 Age: [age] y.o. Admission Date: 09/17/2019 LOS: 13 days Mobility Patient Turn/Position: Chair(pt up with PT) Progressive Mobility Level: Walk in hallway Distance Walked (feet): 150 ft Level of Assistance: Stand by assistance Assistive Device: Walker Time Tolerated: 11-30 minutes Subjective Significant hospital events: PMH: back pain, cervical fusion, lumbar fusion, chr onic pain, HTN. Reason for admission: Progressively worsening weakness and fatig ue. Patient was found to have acute renal failure with hyperkalemia and anion ga p metabolic acidosis.renal biopsy 09/29. HD cathether placement 09/[address] anned for 09/30 and 10/01 for anticipation of improved renal function. Mental / Cognitive Status: Alert;Cooperative;Follows Commands(very pleasant) Persons Present: Provider Pain: Patient complains of pain Pain Location: Abdomen Pain Interventions: Patient agrees to participate in therapy Ambulation Assist: Independent Mobility in Community without Device Patient Owned Equipment: Single Point Cane;Roller Walker Home Situation: Lives Alone Type of Home: Mobile Home Entry Stairs: 3-5 Stairs;Rail on 1 Side In-Home Stairs: No Stairs Bed Mobility/Transfer Bed Mobility: Supine to Sit: Standby Assist Transfer Type: Sit to Stand Transfer: Assistance Level: From;Bed;Standby Assist Transfer: Assistive Device: Roller Walker Transfers: Type Of Assistance: For Safety Considerations Other Transfer Type: Stand Pivot;Stand to Sit Other Transfer: Assistance Level: To;Bed Side Chair;Minimal Assist(poor eccentri c control) Other Transfer: Assistive Device: Roller Walker Other Transfer: Type Of Assistance: For Safety Considerations End Of Activity Status: Up in Chair;Nursing Notified;Instructed Patient to Reque st Assist with Mobility;Instructed Patient to Use Call Light(TABS alarm activate d) Gait Gait Distance: 150 feet Gait: Assistance Level: Standby Assist Gait: Assistive Device: Roller Walker Gait: Descriptors: Pace: Slow;Decreased foot clearance RLE;Decreased foot cleara nce LLE;Decreased step length Comments: ambulates on 4L. no signs of desat, but demonstrates endurance limitat ions. patient with mutliple procedures over the last several days for ongoing me dical work up. Activity Limited By: Complaint of Fatigue Education Persons Educated: Patient Patient Barriers To Learning: None Noted Teaching Methods: Verbal Instruction Patient Response: Verbalized Understanding Topics: Plan/Goals of PT Interventions;Mobility Progression;Up with Assist Only; Importance of Increasing Activity;Ambulate With Nursing;Safety Awareness Assessment/Progress Assessment/Progress: Should Improve w/ Continued PT Comments: patient willing to mobilize with therapy. team continues to evaluate f or ongoing medical issues. will conitnue to progress mobility as tolerated. AM-PAC 6 Clicks Basic Mobility Inpatient Turning from your back to your side while in a flat bed without using bed rails: None Moving from lying on your back to sitting on the side of a flatbed without using bedrails : A Little Moving to and from a bed to a chair (including a wheelchair): A Little Standing up from a chair using your arms (e.g. wheelchair, or bedside chair): A Little To walk in hospital room: A Little Climbing 3-5 steps with a railing: A Little Raw Score: 19 Standardized (T-scale) Score: 42.48 Basic Mobility CMS 0-100%: 36.99 CMS G Code Modifier for Basic Mobility: CJ Goals Goal Formulation: With Patient Time For Goal Achievement: 5 days, To, 7 days Patient Will Transfer Bed/Chair: Independently Patient Will Ambulate: Greater than 200 Feet, w/ No Device, Independently Patient Will Go Up / Down Stairs: 3-5 Stairs, Independently Plan Plan Frequency: 5 Days per Week Comments: sit to stand transfer practice, progressive gait distance, LE strength ening, endurance training; increased frequency as patient with ongoing medical w ork up. attempting to ensure mobility progression. P.T. mobility aide to assist with ongoing mobilization and exercise per instruct ions of licensed physical therapy staff. PT Discharge Recommendations Recommendation: Inpatient setting(anticipated) Patient Currently Requires Equipment: Owns what is needed Therapist: Maris Erazo Date: 10/01/2019 * Moi Cates - 09/30/2019 8:43 PM CDT Brief GI follow up note Patient could not undergo EUS today due to not being able to sign consent after receiving conscious sedation for renal Bx and her sister not being available via phone. Plan for EUS tomorrow. Keep NPO pMN. Patient was discussed with attending on service, Dr. Sapp. Moi Cates MD Gastroenterology & Hepatology Fellow Pager [phone] * Kenji Peña DO - 09/30/2019 12:27 PM CDT Renal Progress Note Name: Mary Tim Today's Date: 09/30/2019 Admission Date: 09/17/2019 LOS: 12 days Assessment/Plan: Principal Problem: Acute renal failure (ARF) (HCC) Active Problems: Hyperkalemia High anion gap metabolic acidosis UTI (urinary tract infection) Physical debility ILD (interstitial lung disease) (HCC) Anemia Abnormal CT of the chest Abnormal abdominal CT scan Elevated CA 19-9 level Mary Tim is a 69 y.o. female # Non-oliguric Acute Kidney Injury - Initially thought to be prerenal azotemia and had been on HCTZ and CECE. She thompson d mild hydronephrosis on US that was not felt signficant. - Creatinine improved from a peak of 7.32 to a ashley of 5.8 before now worsening again. - She has 0.9 grams protineuria, had 2+ blood on UA 09/17 and 10-20 WBC. UC from grew E coli and Enterobacter. Urine sediment exam had been consistent with UT I. - She has negative MPO/PR3 and hepatitis testing. - She had a CT which showed enlarged kidneys with infiltrative process - Kidney function has not improved # Elevated LFTs # HTN # Abnormal Chest CT - concerning for sarcoidosis vs hypersensitivity pneumonitis # Normocytic Anemia - had required a transfusion 09/24 Recommendations: - Kidney biopsy today - will f/u results - Discussed initiation of HD. Discussed indications of HD, risks associated with HD including catheter associated line infection, psychosocial aspect of HD. Pat ient with adequate understanding of the aforementioned discussion. Questions wer e answered to the best of our ability. - Plan for short 2 hr session SLED on 10/01/19 - Will plan for another SLED on 10/02/19 - Unclear if patient will regain reasonable renal function moving forward. Will need 3 months of HD to determine if CKD has progressed to ESRD requiring intemit tent HD. Will depend on pathology results - Monitor daily weights - Avoid NSAIDs and contrast if possible - Avoid nephrotoxic medications - Renally dose medications - No indication for urgent/emergent HD at this time - We will continue to follow Post Biopsy Instructions - Keep patient on bed rest for 6 hours after biopsy (use bedpan only). Keep HOB < 30 degrees - Monitor and record vitals Q15 min X 1 hour, then Q30 min X 1 hour, then Q1 fernanda r X six hours - Keep BP less than 145/90. Consider starting Nicardipine drip and titrate to SB P <145 if needed - Check CBC 5 hours after renal biopsy. - If patient has severe pain, hematuria, hypotension or drop in Hb please get CT Abd/pelvis without contrast Sharron Oakley, MS4 The patient was assessed and the appropriate management was discussed with Dr. Karine Peña D.O. Nephrology Fellow Pager #: [phone] This note was composed with Dragon Dictation. As such, there may be transcriptio nal errors. For questions, please contact Dr. Peña. Subjective Mary Tim is a 69 y.o. female. Patient was alert and on her way to IR thi s morning when I saw her. She expressed she was frustrated her upper dentures thompson d been lost when she transferred to her new unit, but otherwise states she feel stable. She reports no new pain and states that she has slept about the same as she has been since in the hospital. Medications Scheduled Meds:amitriptyline/gabapentin/emu oil(#) 4/4/10 % topical cream, , Top ical, Q8H amLODIPine (NORVASC) tablet 10 mg, 10 mg, Oral, QDAY cyanocobalamin (VITAMIN B-12) tablet 1,000 mcg, 1,000 mcg, Oral, QDAY folic acid (FOLVITE) tablet 1 mg, 1 mg, Oral, QDAY heparin (porcine) PF syringe 5,000 Units, 5,000 Units, Subcutaneous, Q8H* polyethylene glycol 3350 (MIRALAX) packet 17 g, 1 packet, Oral, QDAY senna (SENOKOT) tablet 2 tablet, 2 tablet, Oral, QHS sodium bicarbonate tablet 650 mg, 650 mg, Oral, BID sodium chloride 0.9 % infusion, 1,000 mL, Intravenous, ONCE Continuous Infusions: PRN and Respiratory Meds:bisacodyL QDAY PRN, calcium carbonate Q6H PRN, flumazen iL PRN, hydrALAZINE Q6H PRN, HYDROcodone/acetaminophen Q6H PRN, labetalol (NORMO DYNE; TRANDATE) injection Q6H PRN, melatonin QHS PRN, naloxone PRN, simethicone Q6H PRN Review of Systems: Constitutional: positive for fatigue, negative for fevers and chills Respiratory: positive for dyspnea on exertion, negative for cough Cardiovascular: negative for chest pain, palpitations, orthopnea Gastrointestinal: negative for nausea, vomiting, diarrhea and constipation Objective: Vital Signs: Last Filed Vital Signs: 24 Fernanda r Range BP: 129/50 (09/29 1500) Temp: 36.8 C (98.3 F) (09/29 1240) Pulse: 83 (09/29 1500) Respirations: 20 PER MINUTE (09/29 1500) SpO2: 92 % (09/29 1500) SpO2 Pulse: 95 (09/29 1215) BP: (109-154)/(50-75) Temp: [36.4 C (97.6 F)-36.9 C (98.5 F)] Pulse: [74-99] Respirations: [14 PER MINUTE-26 PER MINUTE] SpO2: [92 %-99 %] Intensity Pain Scale (Self Report): 7 (09/30/19 1255) Vitals: 09/17/19 2350 09/19/19 1411 Weight: 77 kg (169 lb 12.1 oz) 76.7 kg (169 lb) Intake/Output Summary: (Last 24 hours) Intake/Output Summary (Last 24 hours) at 09/30/2019 1534 Last data filed at 09/30/2019 1400 Gross per 24 hour Intake 0 ml Output 800 ml Net -800 ml Stool Occurrence: 0 Physical Exam Unable to complete during transit to IR. Lab Review 24-hour labs: Results for orders placed or performed during the hospital encounter of 09/17/19 (from the past 24 hour(s)) ELECTROPHORESIS-UR RAN Collection Time: 09/29/19 10:10 PM Result Value Ref Range Total Protein, Urine 106 MG/DL Albumin %, Urine % Alpha 1 %, Urine % Alpha 2 %, Urine % Beta %, Urine % Gamma %, Urine % UEP Interpretation Paraprotein, Urine MG/DL Pathologist Signature PROTIME INR (PT) Collection Time: 09/30/19 6:02 AM Result Value Ref Range INR 1.3 (H) 0.8 - 1.2 BASIC METABOLIC PANEL Collection Time: 09/30/19 6:02 AM Result Value Ref Range Sodium 142 137 - 147 MMOL/L Potassium 4.9 3.5 - 5.1 MMOL/L Chloride 104 98 - 110 MMOL/L CO2 21 21 - 30 MMOL/L Anion Gap 17 (H) 3 - 12 Glucose 84 70 - 100 MG/DL Blood Urea Nitrogen 83 (H) 7 - 25 MG/DL Creatinine 6.94 (H) 0.4 - 1.00 MG/DL Calcium 9.2 8.5 - 10.6 MG/DL eGFR Non 6 (L) >60 mL/min eGFR 7 (L) >60 mL/min CBC AND DIFF Collection Time: 09/30/19 6:02 AM Result Value Ref Range White Blood Cells 6.5 4.5 - 11.0 K/UL RBC 2.85 (L) 4.0 - 5.0 M/UL Hemoglobin 8.8 (L) 12.0 - 15.0 GM/DL Hematocrit 25.9 (L) 36 - 45 % MCV 90.8 80 - 100 FL MCH 30.9 26 - 34 PG MCHC 34.1 32.0 - 36.0 G/DL RDW 13.4 11 - 15 % Platelet Count 245 150 - 400 K/UL MPV 6.6 (L) 7 - 11 FL Neutrophils 76 41 - 77 % Lymphocytes 6 (L) 24 - 44 % Monocytes 14 (H) 4 - 12 % Eosinophils 3 0 - 5 % Basophils 1 0 - 2 % Absolute Neutrophil Count 5.00 1.8 - 7.0 K/UL Absolute Lymph Count 0.39 (L) 1.0 - 4.8 K/UL Absolute Monocyte Count 0.92 (H) 0 - 0.80 K/UL Absolute Eosinophil Count 0.17 0 - 0.45 K/UL Absolute Basophil Count 0.04 0 - 0.20 K/UL PHOSPHORUS Collection Time: 09/30/19 6:02 AM Result Value Ref Range Phosphorus 5.2 (H) 2.0 - 4.5 MG/DL MAGNESIUM Collection Time: 09/30/19 6:02 AM Result Value Ref Range Magnesium 1.9 1.6 - 2.6 mg/dL MISCELLANEOUS SURGICAL PATHOLOGY REFERENCE LAB TEST Collection Time: 09/30/19 10:15 AM Result Value Ref Range Test EMTO, Electron Microscopy, Technical Only, [id number] Reference Lab PERFORMED AT [facility] Results Ref Lab Will be reported as an addendum in the pathology report. Specimen Mail [id number] Point of Care Testing (Last 24 hours) Glucose: 84 (09/30/19 0602) Radiology and other Diagnostics Review: IR RENAL BIOPSY Final Result Successful ultrasound guided left kidney biopsy as described. Specimen was co nfirmed adequate by the cytopathologist at time of procedure. IMak M.D., the attending radiologist, was present for the procedure, pe rsonally reviewed the images, and formulated the interpretations and opinions ex pressed in this report. @TT Finalized by MAK LYNCH on 09/30/2019 1:35 PM. Dictated by MAK LYNCH on 09/30/2019 1:[address] ABD/PELV WO CONTRAST Final Result 1. Abnormalities involving the liver, gallbladder, kidneys, right adrenal gland and retroperitoneum. Leading consideration is lymphoma. Erdheim-Lancaster disease and IgG-4 related disease are additional considerations. 2. Mild diffuse enlargement of the kidneys with ill-defined soft tissue thickeni ng in the renal pelves and asymmetric perinephric stranding. 3. Mild nodular enlargement of the right adrenal gland with ill-defined strandin g. 4. Mild central retroperitoneal lymphadenopathy. Mild diffuse soft tissue thicke norman in the presacral space in the pelvis may represent additional lymphadenopat hy. 5. Multiple small hypodense hepatic lesions 6. Diffuse enlargement of the gallbladder with pericystic stranding. Acute michela cystitis should also be considered for this finding. 7. Abnormal low attenuation tissue in the body and tail of the pancreas with a s mall calculus towards the midline. This low-attenuation tissue most likely repre sents a dilated main pancreatic duct. Dr. oHyt discussed these findings with Dc by telephone at 1:55 PM 09/26/2019 Finalized by Lasha Hoyt M.D. on 09/26/2019 1:57 PM. Dictated by Lasha Hoyt M.D. on 09/26/2019 1:[address] CHEST WO CONTRAST Final Result Abnormal Addendum 1 of 1 Finalized by Eric Brennan M.D. on 09/25/2019 [...] Eric Brennan M.D. on 09/25/2019 8:38 AM. Final CHEST 2 VIEWS Final Result Areas of fibrosis. Superimposed opacities may be due to atelectasis, pneumonia a nd/or scarring. CT chest is recommended for further evaluation. By my electronic signature, I attest that I have personally reviewed the images for this examination and formulated the interpretations and opinions expressed i n this report Finalized by Carmela Lane M.D. on 09/24/2019 3:10 PM. Dictated by Yakelin cutler M.D. on 09/24/2019 2:26 PM. 2D + DOPPLER ECHO Final Result US RENAL BLADDER COMPLETE Final Result 1. Symmetric, normal renal size. 2. Patent renal vessels. No evidence of hemodynamically significant renal arter y stenosis. 3. Elevated intrarenal resistivity, most compatible with a nonspecific, diffuse parenchymal disease. Finalized by Brenda Stahl M.D. on 09/18/2019 12:17 PM. Dictated by Alexis Jovel on 09/18/2019 9:16 AM. US DOPPLER ABD PELV RETROPER COMP Final Result 1. Symmetric, normal renal size. 2. Patent renal vessels. No evidence of hemodynamically significant renal arter y stenosis. 3. Elevated intrarenal resistivity, most compatible with a nonspecific, diffuse parenchymal disease. Finalized by Brenda Stahl M.D. on 09/18/2019 12:17 PM. Dictated by Alexis Jovel on 09/18/2019 9:16 AM. GENERAL RAD CHEST EXTERNAL IMAGING Final Result IR CENTRAL VENOUS CATHETER (Results Pending) Kenji Peña DO Pager Associated attestation - Levar Coleman DO - 09/30/2019 5:12 PM CDT ATTESTATION Ms. Tim had her renal biopsy today and preliminary report is pending. She thompson s worsening renal function and I dicussed with her that while not emergent she m ay benefit from dialysis and we should make arrangements tomorrow. She was agree able. I personally performed the ruiz portions of the E/M visit, discussed case with e fellow and concur with fellow documentation of history, physical exam, assessm ent, and treatment plan unless otherwise noted. Staff name: Levar Coleman DO * Reji Read MD - 09/30/2019 11:10 AM CDT Pulmonary Progress Note Name: Mary Tim Today's Date: 09/30/2019 Admission Date: 09/17/2019 LOS: 12 days Assessment/Plan: Principal Problem: Acute renal failure (ARF) (HCC) Active Problems: Hyperkalemia High anion gap metabolic acidosis UTI (urinary tract infection) Physical debility ILD (interstitial lung disease) (HCC) Anemia Abnormal CT of the chest Abnormal abdominal CT scan Elevated CA 19-9 level Ms. Tim is a 69 yo F with PMH of HTN, cervical and lumbar spinal fusions, re ported RA who is admitted with acute renal failure, found to have abnormal chest CT findings concerning for possible ILD versus sarcoidosis. #Abnormal chest CT - Patchy interstitial opacities associated with airways, susp icious for sarcoidosis versus hypersensitivity pneumonitis. - ILD Labs largely negative except for elevated Aldolase at 9.2. - Urine Ca random 0.7 and IgG4 within normal range. - PFTs consistent with restrictive pattern. > Bronchoscopy biopsy results pending, will follow up results and continue workup as outpatient. > Doniphan-Marker Panel Labs sent with elevated Aldolase, will follow up results as above. > Renal biopsy scheduled for today. > Continue incentive spirometry as ordered and supplemental O2 as needed. Case discussed with Dr. Read. ATTESTATION I personally performed the ruiz portions of the E/M visit, discussed case with re sident and concur with resident documentation of history, physical exam, assessm ent, and treatment plan unless otherwise noted. ILD panel overall unremarkable. Will send Doniphan myositis panel with elevated ald olase. Awaiting biopsy path and cyto from LN and endo/transbronial biopsies. R enal biopsy today may also be revealing for unifying etiology of infiltrates and renal failure. Staff name: Reji Read MD Date: 09/30/2019 Subjective Mary Tim is a 69 y.o. female. Patient feels that her breathing is overal l similar to yesterday with continued shortness of breath with conversation and minimal activity. She was able to get some sleep overnight with partially sittin g up in her chair. She reports minor cough this morning with occasional white sp utum production. Medications Scheduled Meds:amitriptyline/gabapentin/emu oil(#) 4/4/10 % topical cream, , Top ical, Q8H [MAR Hold] amLODIPine (NORVASC) tablet 10 mg, 10 mg, Oral, QDAY [MAR Hold] cyanocobalamin (VITAMIN B-12) tablet 1,000 mcg, 1,000 mcg, Oral, QDAY [MAR Hold] folic acid (FOLVITE) tablet 1 mg, 1 mg, Oral, QDAY [MAR Hold] heparin (porcine) PF syringe 5,000 Units, 5,000 Units, Subcutaneous, Q8H* [MAR Hold] polyethylene glycol 3350 (MIRALAX) packet 17 g, 1 packet, Oral, QDAY [MAR Hold] senna (SENOKOT) tablet 2 tablet, 2 tablet, Oral, QHS [MAR Hold] sodium bicarbonate tablet 650 mg, 650 mg, Oral, BID sodium chloride 0.9 % infusion, 1,000 mL, Intravenous, ONCE Continuous Infusions: PRN and Respiratory Meds:[MAR Hold] bisacodyL QDAY PRN, [MAR Hold] calcium carbo vishal Q6H PRN, flumazeniL PRN, hydrALAZINE Q6H PRN, [MAR Hold] HYDROcodone/acetam inophen Q6H PRN, labetalol (NORMODYNE; TRANDATE) injection Q6H PRN, [MAY Hold] m elatonin QHS PRN, naloxone PRN, [MAY Hold] simethicone Q6H PRN Review of Systems: Constitutional: positive for fatigue and malaise Respiratory: positive for cough, sputum or shortness of breath with activity. Objective: Vital Signs: Last Filed Vital Signs: 24 Fernanda r Range BP: 125/57 (09/29 1105) Temp: 36.7 C (98 F) (09/29 1015) Pulse: 97 (09/29 1105) Respirations: 20 PER MINUTE (09/29 1105) SpO2: 99 % (09/29 1105) SpO2 Pulse: 96 (09/29 1105) BP: (109-157)/(57-75) Temp: [36.4 C (97.6 F)-36.9 C (98.5 F)] Pulse: [74-100] Respirations: [14 PER MINUTE-26 PER MINUTE] SpO2: [93 %-99 %] Intensity Pain Scale (Self Report): 8 (09/30/19 0800) Vitals: 09/17/19 2350 09/19/19 1411 Weight: 77 kg (169 lb 12.1 oz) 76.7 kg (169 lb) Intake/Output Summary: (Last 24 hours) Intake/Output Summary (Last 24 hours) at 09/30/2019 1110 Last data filed at 09/30/2019 0906 Gross per 24 hour Intake 420 ml Output 875 ml Net -455 ml Stool Occurrence: 0 Physical Exam General appearance: alert, fatigued, cooperative and no distress Lungs: rales coarse all lung adan, wheezes all lung adan Extremities: bony changes involving DIPs bilateral hands Lab Review 24-hour labs: Results for orders placed or performed during the hospital encounter of 09/17/19 (from the past 24 hour(s)) ELECTROPHORESIS-UR RAN Collection Time: 09/29/19 10:10 PM Result Value Ref Range Total Protein, Urine 106 MG/DL Albumin %, Urine % Alpha 1 %, Urine % Alpha 2 %, Urine % Beta %, Urine % Gamma %, Urine % UEP Interpretation Paraprotein, Urine MG/DL Pathologist Signature PROTIME INR (PT) Collection Time: 09/30/19 6:02 AM Result Value Ref Range INR 1.3 (H) 0.8 - 1.2 BASIC METABOLIC PANEL Collection Time: 09/30/19 6:02 AM Result Value Ref Range Sodium 142 137 - 147 MMOL/L Potassium 4.9 3.5 - 5.1 MMOL/L Chloride 104 98 - 110 MMOL/L CO2 21 21 - 30 MMOL/L Anion Gap 17 (H) 3 - 12 Glucose 84 70 - 100 MG/DL Blood Urea Nitrogen 83 (H) 7 - 25 MG/DL Creatinine 6.94 (H) 0.4 - 1.00 MG/DL Calcium 9.2 8.5 - 10.6 MG/DL eGFR Non 6 (L) >60 mL/min eGFR 7 (L) >60 mL/min CBC AND DIFF Collection Time: 09/30/19 6:02 AM Result Value Ref Range White Blood Cells 6.5 4.5 - 11.0 K/UL RBC 2.85 (L) 4.0 - 5.0 M/UL Hemoglobin 8.8 (L) 12.0 - 15.0 GM/DL Hematocrit 25.9 (L) 36 - 45 % MCV 90.8 80 - 100 FL MCH 30.9 26 - 34 PG MCHC 34.1 32.0 - 36.0 G/DL RDW 13.4 11 - 15 % Platelet Count 245 150 - 400 K/UL MPV 6.6 (L) 7 - 11 FL Neutrophils 76 41 - 77 % Lymphocytes 6 (L) 24 - 44 % Monocytes 14 (H) 4 - 12 % Eosinophils 3 0 - 5 % Basophils 1 0 - 2 % Absolute Neutrophil Count 5.00 1.8 - 7.0 K/UL Absolute Lymph Count 0.39 (L) 1.0 - 4.8 K/UL Absolute Monocyte Count 0.92 (H) 0 - 0.80 K/UL Absolute Eosinophil Count 0.17 0 - 0.45 K/UL Absolute Basophil Count 0.04 0 - 0.20 K/UL PHOSPHORUS Collection Time: 09/30/19 6:02 AM Result Value Ref Range Phosphorus 5.2 (H) 2.0 - 4.5 MG/DL MAGNESIUM Collection Time: 09/30/19 6:02 AM Result Value Ref Range Magnesium 1.9 1.6 - 2.6 mg/dL Point of Care Testing (Last 24 hours) Glucose: 84 (09/30/19 0602) Radiology and other Diagnostics Review: Pertinent radiology reviewed. Ben Stinson MD Pager [phone] * Maris Erazo - 09/30/2019 10:57 AM CDT PHYSICAL THERAPY NOTE Name: Mary Tim : 1950 Age: [age] y.o. Admission Date: 09/17/2019 LOS: 12 days Patient not available- patient off the unit for renal biopsy to rule out Nephrit is. Patient will be on bedrest x6 hours following procedure. Patient mobilizing well from a mobility stand point. Team evaluating need for he modialysis pending renal biopsy. Will continue to follow. Therapist: Maris Erazo Date: 09/30/2019 * Yisel Carlos MD - 09/30/2019 9:10 AM CDT ATTESTATION I personally performed or re-performed the history, physical exam and treatment for the E/M. I discussed the case with the Medical Student, and concur with the Medical Student documentation of history, physical exam and treatment plan unles s otherwise noted. Staff name: Yisel Carlos MD Date: 09/30/2019 General Progress Note Name: Mary Tim Today's Date: 09/30/2019 Admission Date: 09/17/2019 LOS: 12 days Assessment/Plan: Principal Problem: Acute renal failure (ARF) (HCC) Active Problems: Hyperkalemia High anion gap metabolic acidosis UTI (urinary tract infection) Physical debility ILD (interstitial lung disease) (HCC) Anemia Abnormal CT of the chest Abnormal abdominal CT scan Elevated CA 19-9 level 69 y.o.femalewith PMHx ofHTN and cervical (C3-C7) and lumbar (L3-L5) spina l fusionswho presentedfor progressively worsening weakness and fatigue and w as found to have acute renal failure with hyperkalemia and anion gap metabolic a cidosis ROSHAN;unclear etiology. Given extensive CT abdomen findings concern for system ic disease causing possible tubulointerstitial nephritis - likely ATN, Nephrology noted muddy brown casts and pyuria on microscopy - 7 at presentation, small improvement with IVF. Creatinine trended up to 6.94 today. - Renal US unremarkable - UPr:Cr 0.9, - Renal consulted, discussed with . Plan to replace Zambrano given diste nded urinary bladder and large kidneys and renal pelvis. - HD will likely be needed in the near future, nephrology discussed this with pt and she was agreeable to it Plan - Monitor I&Os - BMP QD - Renal Bx today > Post-Biopsy Instructions: - Keep patient on bed rest for 6 hours after biopsy (use bedpan only). Keep HOB < 30 degrees - Monitor and record vitals Q15 min X 1 hour, then Q30 min X 1 hour, then Q1 fernanda r X six hours - Keep BP less than 145/90 - Check CBC 5 hours after renal biopsy. - If patient has severe pain, hematuria, hypotension or drop in Hb please get CT Abd/pelvis without contrast > HD line placement. Plan for 2 hour session of HD. Abnormal CT abdomen pelvis;concern for systemic disease likleyIgG-4 related disease - CT abdomen pelvis was done for evaluation of liver lesion seen on CT chest. - Patient has minimal symptoms of vague abdominal discomfort and constipation - CT abdomenandpelvis showed multiple findings abnormalities involving the l iver, gallbladder, kidneys, right adrenal gland and retroperitoneum. Leading con sideration is lymphoma. Erdheim-Lancaster disease and IgG-4 related disease are ad ditional considerations. > Mild diffuse enlargement of the kidneys with ill-defined soft tissue thickening in the renal pelves and asymmetric perinephric stranding. Mild nodular enlargement of the right adrenal gland with ill-defined stranding. Mild central retroperitoneal lymphadenopathy. Mild diffuse soft tissue thickening in the presacral space in the pelvis may represent additional lymphadenopathy. Multiple small hypodense hepatic lesions. Diffuse enlargement of the gallbladder with pericystic stranding. Acute cholecystitis should also be considered for this finding.. Abnormal low attenuation tissue in the body and tail of the pancreas with a small calculus towards the midline. This low-attenuation tissue most likely represents a dilated main pancreatic duct. -lipase 118, CA 19 93 Plan - f/u flow cytometry - Hematology consulted after reviewing imaging; they felt low suspicion for lymp niya did not feel like the need to be monitored at this point. May reconsult if needed again. -GI consulted consult. Plan for EUS UTI, resolved - UA shows blood and pyuria - UCx with e. coli and enterobacter. Sensitive to Rocephin - completedrocephin for 7 days09/25 Hyperkalemia, resolved - aggressively treated prior to transfer - continue to monitor Constipation - Miralax, senokot AGMA -Started on p.o. bicarb. 1 L of 1/2NS with 100 meq bicarbonate drip per hour. -Monitor Dyspnea, Fatigue; CT chestconcerning for ILD: Sarcoidosis versus hypersensitiv ity pneumonitis - CXR at OSH without acute process - Echo normal - Repeat chest x-ray showed areas of fibrosis, suprabasal opacities may be due t o atelectasis, pneumonia and/or scarring. - CT chest showed right greater than left peribronchovascular and subpleural ret iculation and architectural distortion with mid lung zone predominance most comp atible with fibrosing interstitial lung disease. - Leading considerations for this pattern of fibrosis would include sarcoidosis especially given mediastinal and hilar lymph nodes or potentially the fibrotic f orm of hypersensitivity pneumonitis. - Does have arthritic pain in her hand joints and feet, family history of lupus - BAL was unremarkable - ILD Labs largely negative except for elevated Aldolase at 9.2. - Urine Ca random 0.7 and IgG4 within normal range. - PFTs consistent with restrictive pattern - New developing cough with sputum production reported 09/29; audible crackles he keyanna on auscultation at RLL Plan - Pulmonology consulted - Plan for EUS - Attention on short-term follow-up CT in 3 months time to reassess. - Bronchoscopy biopsy results pending, will follow up results and continue ramon p as outpatient. - Doniphan-Marker Panel Labs sent with elevated Aldolase, will follow up results as above. - Continue incentive spirometry as ordered and supplemental O2 as needed, if cou gh worsens, do CXR HTN - hold CECE, HCTZ - Blood pressure mildly elevated. On Norvasc 10mg - BP control, less than 140/90. Labetalol prn, hydralazine prn, Chronic Back Pain -conthydrocodone - emu oil prn Normocytic Anemia - Status post 1 PRBC09/24.hemoglobin around 10.Transfuse if hemoglobin less than 7 - Iron studies showed mixed picture of iron deficiency and anemia of chronic d isease - B12 and folate low, started replacement - LDH elevated. Haptoglobin normal. Peripheral smear showed normocytic anemia. Absolute lymphocytopenia. Mild monocytosis. Mild Transaminitis, resolved - hepatitis panel; negative - trend Physical debility - PT OT eval.recommending inpatient.Patient agreeable for rehab. SW To ashli t with placement FEN: No IVF, BMP Q, NPO today Code: Full, discussed on admit PPx: HsQ Dispo: Continue inpatient forevaluation and management ofpersistent severe A KI, anemia andgrossly abnormal CT chest and abdomen pelvis concerning for a sy stemic disease. PT OT recommending inpatient Subjective Mary Tim is a 69 y.o. female. Patient stated she did not sleep well last night. She requires to be changing positions frequently due to prior surgeries. Emu oil and hydrocodone have helped relieve the pain. Reports abdominal pain is still the same. No BM for the past 3 days even with miralax and senokot. Ms. Sushil maciel states that yesterday a mild productive cough started. Denies fevers and c hills. Medications Scheduled Meds:amitriptyline/gabapentin/emu oil(#) 4/4/10 % topical cream, , Top ical, Q8H amLODIPine (NORVASC) tablet 10 mg, 10 mg, Oral, QDAY cyanocobalamin (VITAMIN B-12) tablet 1,000 mcg, 1,000 mcg, Oral, QDAY folic acid (FOLVITE) tablet 1 mg, 1 mg, Oral, QDAY heparin (porcine) PF syringe 5,000 Units, 5,000 Units, Subcutaneous, Q8H* polyethylene glycol 3350 (MIRALAX) packet 17 g, 1 packet, Oral, QDAY senna (SENOKOT) tablet 2 tablet, 2 tablet, Oral, QHS sodium bicarbonate tablet 650 mg, 650 mg, Oral, BID Continuous Infusions: PRN and Respiratory Meds:bisacodyL QDAY PRN, calcium carbonate Q6H PRN, hydrALAZ INE Q6H PRN, HYDROcodone/acetaminophen Q6H PRN, labetalol (NORMODYNE; TRANDATE) injection Q6H PRN, melatonin QHS PRN, simethicone Q6H PRN Review of Systems: Constitutional: negative for fevers and chills Eyes: negative for visual disturbance and irritation Ears, nose, mouth, throat, and face: positive for dry mouth, negative for tinnit us, ear drainage, nasal congestion, sore throat and hoarseness Respiratory: positive for dyspnea on exertion, positive for cough and sputum, ne gative for hemoptysis or pleurisy/chest pain Cardiovascular: negative for chest pain, chest pressure/discomfort, palpitations , irregular heart beats Gastrointestinal: positive for constipation and abdominal pain, negative for marcin james, diarrhea and jaundice Genitourinary:positive for decreased urine output, negative for dysuria and nancy turia Objective: Vital Signs: Last Filed Vital Signs: 24 Fernanda r Range BP: 141/61 (09/29 905) Temp: 36.6 C (97.9 F) (09/29 905) Pulse: 95 (09/29 905) Respirations: 18 PER MINUTE (09/29 905) SpO2: 95 % (09/29 905) BP: (132-157)/(60-73) Temp: [36.4 C (97.6 F)-37.1 C (98.8 F)] Pulse: [74-100] Respirations: [17 PER MINUTE-20 PER MINUTE] SpO2: [93 %-97 %] Intensity Pain Scale (Self Report): 10 (09/30/19 0343) Vitals: 09/17/19 2350 09/19/19 1411 Weight: 77 kg (169 lb 12.1 oz) 76.7 kg (169 lb) Intake/Output Summary: (Last 24 hours) Intake/Output Summary (Last 24 hours) at 09/30/2019 09 Last data filed at 09/30/2019 0906 Gross per 24 hour Intake 660 ml Output 1025 ml Net -365 ml Stool Occurrence: 0 Physical Exam General: Alert, no distress. Conjunctival pallor Neck: Supple, nontender, no JVD or lymphadenopathy Resp: Coarse rales and crackles at RLL CV: Regular rate and rhythm, S1, S2 normal, no murmur. No peripheral edema. GI: Soft, non-tender. Bowel sounds normal. Neuro: No focal deficits, CN 2-12 grossly intact bilaterally, oriented x3 Psych: normal affect and mood, remote and recent memory intact Lab Review Hematology: Lab Results Component Value Date HGB 8.8 09/30/2019 HCT 25.9 09/30/2019 PLTCT 245 09/30/2019 WBC 6.5 09/30/2019 NEUT 76 09/30/2019 ANC 5.00 09/30/2019 ALC 0.39 09/30/2019 WILLIE 14 09/30/2019 AMC 0.92 09/30/2019 ABC 0.04 09/30/2019 MCV 90.8 09/30/2019 MCHC 34.1 09/30/2019 MPV 6.6 09/30/2019 RDW 13.4 09/30/2019 , Coagulation: Lab Results Component Value Date PTT 27.5 09/18/2019 INR 1.3 09/30/2019 and General Chemistry: Lab Results Component Value Date NA 142 09/30/2019 K 4.9 09/30/2019 CL 104 09/30/2019 GAP 17 09/30/2019 BUN 83 09/30/2019 CR 6.94 09/30/2019 GLU 84 09/30/2019 CA 9.2 09/30/2019 ALBUMIN 2.8 09/25/2019 LACTIC 2.1 09/27/2019 MG 1.9 09/30/2019 TOTBILI 0.3 09/25/2019 Point of Care Testing (Last 24 hours) Glucose: 84 (09/30/19 0602) Radiology and other Diagnostics Review: Pertinent radiology reviewed. Jade Bejarano, * Omid Yang RN - 09/30/2019 7:39 AM CDT Upon arrival to unit, pt. Reported missing dentures. I was only able to find one set of dentures included with her pt. Belongings in a pink box. trimmer sorter called down to previous unit and I was told that they were unable to find the missing pair. * Tye Magdaleno RN - 09/29/2019 12:23 PM CDT Missing Dentures: Patient was transferred to unit 64 on 09/26 around 1940. Omid Yang RN received patient and was notified of missing dentures. It is unclear whether the dentures were left in [facility] or procedure area 2 OR. This RN called [facility] and spoke with it hospice patient care secretary Bola, and he was unable to find the missing Dentures. We will thompson ve patient call patient relations on Monday to find resolution of this issue. * Levar Coleman, - 09/29/2019 12:19 PM CDT Renal Progress Note Mary Tim Admission Date: 09/17/2019 Assessment and Plan Principal Problem: Acute renal failure (ARF) (HCC) Active Problems: Hyperkalemia High anion gap metabolic acidosis UTI (urinary tract infection) Physical debility ILD (interstitial lung disease) (HCC) Anemia Abnormal CT of the chest Abnormal abdominal CT scan Elevated CA 19-9 level Mary Tim is a 69 y.o. female ROSHAN - Initially though to be prerenal azotemia and had been on HCTZ and CECE. She had some hydronephrosis on US that was not felt signficant. - Creatinine improved from a peak of 7.32 to a ashley of 5.8 before now worsening again. - She has 0.9 grams protineuria, had 2+ blood on UA 09/17 and 10-20 WBC. UC from grew E coli and Enterobacter. Urine sediment exam had been consistent with UT I. - She has negative MPO/PR3 and hepatitis testing. - She had a CT which showed enlarged kidneys with infiltrative process - Kidney function has not improved - I am planning for renal biopsy Monday. - She has no acute dialysis needs but is high risk for needing dialysis soon if she does not have some improvement. ILD Anemia -had required a transfusion 09/24 Metabolic acidosis - improved Hyperkalemia - improved Recommendations: - Planning for renal biopsy tomorrow as she has not made any significant improve ment since admission. - I discussed with her that she may need dialysis. She is familiar with dialysi s and had helped her mother do PD. She is interested in PD. I discussed with her that I am not certain she has ESRD so would start with HD through a catheter and PD is a good option if she continues to require dialysis after several months. She accepted this. Post Biopsy Instructions - Keep patient on bed rest for 6 hours after biopsy (use bedpan only). Keep HOB < 30 degrees - Monitor and record vitals Q15 min X 1 hour, then Q30 min X 1 hour, then Q1 fernanda r X six hours - Keep BP less than 145/90 - Check CBC 5 hours after renal biopsy. - If patient has severe pain, hematuria, hypotension or drop in Hb please get CT Abd/pelvis without contrast Levar Coleman DO Pager [phone] Subjective HPI: Mary Tim is a 69 y.o. female was feeling okay but complained of fati jorge. She denied dyspnea or edema. She denied nausea and vomiting. She has not thompson d any urinary symptoms. Medications MEDSamitriptyline/gabapentin/emu oil(#), , Topical, Q8H [START ON 09/30/2019] amLODIPine, 10 mg, Oral, QDAY cyanocobalamin, 1,000 mcg, Oral, QDAY folic acid, 1 mg, Oral, QDAY heparin (porcine), 5,000 Units, Subcutaneous, Q8H* polyethylene glycol 3350, 1 packet, Oral, QDAY senna, 2 tablet, Oral, QHS sodium bicarbonate, 650 mg, Oral, BID IV MEDS lactated ringers infusion 50 mL/hr at 09/29/19 0600 Prn bisacodyL QDAY PRN, calcium carbonate Q6H PRN 1,000 mg at 09/19/197, h ydrALAZINE Q6H PRN Stopped at 09/26/192025, HYDROcodone/acetaminophen Q6H PRN 1 tablet at 09/29/19 0238, labetalol (NORMODYNE; TRANDATE) injection Q6H PRN, marcin atonin QHS PRN 5 mg at 09/27/19 2148, simethicone Q6H PRN 80 mg at 09/24/19 2205 Physical Exam Vital Signs: Last Filed In 24 Hours Vital Signs: 24 Hour Range BP: 150/73 (09/28 1000) Temp: 37.1 C (98.8 F) (09/28 1000) Pulse: 100 (09/28 1200) Respirations: 18 PER MINUTE (09/28 1000) SpO2: 96 % (09/28 1000) BP: (139-154)/(65-73) Temp: [36.6 C (97.8 F)-37.1 C (98.8 F)] Pulse: [84-100] Respirations: [18 PER MINUTE-19 PER MINUTE] SpO2: [87 %-97 %] Intensity Pain Scale (Self Report): 8 (09/29/19 0800) Vitals: 09/17/19 2350 09/19/19 1411 Weight: 77 kg (169 lb 12.1 oz) 76.7 kg (169 lb) Constitutional: Appears well-developed and well-nourished. No distress. Pleasant . Head: Normocephalic and atraumatic. Mouth/Throat: No oropharyngeal exudate. Eyes: No scleral icterus or injection. Neck: No JVD present. No tracheal deviation present. Cardiovascular: Normal rate, regular rhythm, normal heart sounds and intact dist al pulses. No murmur. Pulmonary/Chest: Effort normal. No wheezes and no rales. Abdominal: Soft. Bowel sounds are normal. No distension. There is no tenderness or rebound. Musculoskeletal: No edema. No cyanosis or clubbing. Neurological: Alert. Conversant. Skin: Skin is warm and dry. No rash noted. Labs Recent Labs 09/27/1941009/28/19 0658 09/29/19 0551 NA 136* 137 139 K 4.4 4.4 4.9 CL 101 102 103 CO2 19* 20* 21 GAP 16* 15* 15* BUN 86* 81* 79* CR 6.74* 6.58* 6.57* GLU 93 82 85 CA 9.1 8.9 9.1 MG -- 1.9 1.9 PO4 -- 4.8* 5.0* Recent Labs 09/27/1941009/28/19 0658 09/29/19 0551 WBC 5.5 5.9 6.5 HGB 9.0* 8.7* 8.3* HCT 26.5* 25.3* 24.6* PLTCT 222 209 222 Estimated Creatinine Clearance: 8.1 mL/min (A) (based on SCr of 6.57 mg/dL (H)). Vitals: 09/17/19 2350 09/19/19 1411 Weight: 77 kg (169 lb 12.1 oz) 76.7 kg (169 lb) No results for input(s): PHART, PO2ART in the last 72 hours. Invalid input(s): PC02A Levar Coleman DO Pager [phone] * Yisel Carlos MD - 09/29/2019 9:15 AM CDT ATTESTATION I personally performed or re-performed the history, physical exam and treatment for the E/M. I discussed the case with the Medical Student, and concur with the Medical Student documentation of history, physical exam and treatment plan unles s otherwise noted. NPO for biopsy on 09/29. BP control, less than 140/90. Labetalol prn, hydralazine prn, norvasc increased to 10mg. Staff name: Yisel Carlos MD Date: 09/29/2019 General Progress Note Name: Mary Lingeddikhari Today's Date: 09/29/2019 Admission Date: 09/17/2019 LOS: 11 days Assessment/Plan: Principal Problem: Acute renal failure (ARF) (HCC) Active Problems: Hyperkalemia High anion gap metabolic acidosis UTI (urinary tract infection) Physical debility ILD (interstitial lung disease) (HCC) Anemia Abnormal CT of the chest Abnormal abdominal CT scan Elevated CA 19-9 level 69 y.o.femalewith PMHx ofHTN and cervical (C3-C7) and lumbar (L3-L5) spina l fusionswho presentedfor progressively worsening weakness and fatigue and w as found to have acute renal failure with hyperkalemia and anion gap metabolic a cidosis ROSHAN;unclear etiology. Given extensive CT abdomen findings concern for system ic disease causing possible tubulointerstitial nephritis - likely ATN, Nephrology noted muddy brown casts and pyuria on microscopy - 7 at presentation, small improvement with IVF. Creatinine trended up to 6.33 today. - Renal US unremarkable - UPr:Cr 0.9, - Renal consulted, discussed with . Plan to replace Zambrano given dis tended urinary bladder and large kidneys and renal pelvis. Will discuss with p atient tomorrow about possible kidney biopsy - accurate I&Os -P.o. intake improving after liberalizing diet -Match I&O, - BMP QD > renal planning for biopsy on 09/29. NPO @ [place] on 09/28. Abnormal CT abdomen pelvis;concern for systemic disease likleyIgG-4 related disease -CT abdomen pelvis was done for evaluation of liver lesion seen on CT chest. -Patient has minimal symptoms of vague abdominal discomfort and constipation -CT abdominandpelvis showed multiple findings Abnormalities involving the liver, gallbladder, kidneys, right adrenal gland and retroperitoneum. Leading co nsideration is lymphoma. Erdheim-Lancaster disease and IgG-4 related disease are a dditional considerations.. Mild diffuse enlargement of the kidneys with ill-defined soft t issue thickening in the renal pelves and asymmetric perinephric stranding. Mild nodula r enlargement of the right adrenal gland with ill-defined stranding. Mild centra l retroperitoneal lymphadenopathy. Mild diffuse soft tissue thickening in the pr esacral space in the pelvis may represent additional lymphadenopathy. Multiple s mall hypodense hepatic lesions. Diffuse enlargement of the gallbladder with manju cystic stranding. Acute cholecystitis should also be considered for this finding.. Abnormal low attenuat ion tissue in the body and tail of the pancreas with a small calculus towards th e midline. This low-attenuation tissue most likely represents a dilated main maya creatic duct. -lipase 118, CA 19 93 Plan - f/u flow cytometry -Hematology consulted after reviewing imaging they felt low suspicion for lympho ma did not feel like the need to be monitored at this point. May reconsult if n eeded again. -GI consulted consult. Plan for EUS UTI UA shows blood and pyuria - UCx with e. coli and enterobacter. Sensitive to Rocephin -completedrocephin for 7 days09/25 Hyperkalemia, resolved - aggressively treated prior to transfer - continue to monitor Constipation - Miralax, senokot AGMA, -Started on p.o. bicarb. 1 L of 1/2NS with 100 meq bicarbonate drip per hour. -Monitor. Dyspnea, Fatigue; CT chestconcerning for ILD: Sarcoidosis versus hypersensitiv ity pneumonitis - CXR at OSH without acute process - Echo here normal -Repeat chest x-ray today showed areas of fibrosis, suprabasal opacities may be due to atelectasis, pneumonia and/or scarring. -CT chest showed Right greater than left peribronchovascular and subpleural reti culation and architectural distortion with mid lung zone predominance most compatible wit h fibrosing interstitial lung disease. Leading considerations for this pattern o f fibrosis would include sarcoidosis especially given mediastinal and hilar lymp h nodes or potentially the fibrotic form of hypersensitivity pneumonitis. Pulmonary consultation suggested. . Scattered areas of groundglass opacity and consolidation may reflect new areas of infection including from viruses or represent acute exacerbation of underlyi ng interstitial lung disease. There are a few scattered nodules which may be inf ectious or inflammatory in nature. Attention on short-term follow-up CT in 3 months time to reassess.. Small left and trace right pleural effusions -Does have arthritic pain in her hand joints and feet. Has family history of l upus Plan -ILDwork-up pending -Pulmonology consult,appreciate recommendations. Discussed with resident. Plan for EUS with BAL and possible biopsy today -Ig4 levels ordered to assess for Ig4 Disease -Possible kidney biopsy, consult with nephrology HTN - hold CECE, HCTZ -Blood pressure mildly elevated. Started on Norvasc 2.5, mg increasd to 5mg. BP control, less than 140/90. Labetalol prn, hydralazine prn, norvasc increased to 10mg. Chronic Back Pain -conthydrocodone - emu oil prn Normocytic Anemia -Status post 1 PRBC7/15.hemoglobin around 10.Transfuse if hemoglobin less than 7 -Iron studies showed mixed picture of iron deficiency and anemia of chronic di sease - B12 and folate low, started replacement -LDH elevated. Haptoglobin normal. Peripheral smear showed normocytic anemia . Absolute lymphocytopenia. Mild monocytosis. Mild Transaminitis: Resolved - hepatitis panel; negative - trend Physical debility -PT OT eval.recommending inpatient.Patient agreeable for rehab. SW To assist with placement FEN: No IVF, BMP Q, Regular Code: Full, discussed on admit PPx: HsQ Dispo: Continue inpatient forevaluation and management ofpersistent severe A KI, anemia andgrossly abnormal CT chest and abdomen pelvis concerning for a sy stemic disease. . PT OT recommending inpatient Subjective Mary Tim is a 69 y.o. female. Patient reports not sleeping well last nig ht. She states that her back pain increased overnight. She asked for norco prn w hich relieved her pain. Her appetite is fair. She has been working with PT/OT an d wants to be able to ambulate without any help. Denies fevers and chills. No n/ v. Medications Scheduled Meds:amitriptyline/gabapentin/emu oil(#) 4/4/10 % topical cream, , Top ical, Q8H amLODIPine (NORVASC) tablet 5 mg, 5 mg, Oral, QDAY cyanocobalamin (VITAMIN B-12) tablet 1,000 mcg, 1,000 mcg, Oral, QDAY folic acid (FOLVITE) tablet 1 mg, 1 mg, Oral, QDAY heparin (porcine) PF syringe 5,000 Units, 5,000 Units, Subcutaneous, Q8H* polyethylene glycol 3350 (MIRALAX) packet 17 g, 1 packet, Oral, QDAY senna (SENOKOT) tablet 2 tablet, 2 tablet, Oral, QHS sodium bicarbonate tablet 650 mg, 650 mg, Oral, BID Continuous Infusions: lactated ringers infusion 50 mL/hr at 09/29/19 0600 PRN and Respiratory Meds:bisacodyL QDAY PRN, calcium carbonate Q6H PRN, hydrALAZ INE Q6H PRN, HYDROcodone/acetaminophen Q6H PRN, melatonin QHS PRN, simethicone Q 6H PRN Review of Systems: Constitutional: negative for fevers and chills Eyes: negative for visual disturbance and irritation Ears, nose, mouth, throat, and face: positive for dry mouth, negative for tinnit us, ear drainage, nasal congestion, sore throat and hoarseness Respiratory: positive for dyspnea on exertion, negative for cough, sputum, hemop tysis or pleurisy/chest pain Cardiovascular: negative for chest pain, chest pressure/discomfort, palpitations , irregular heart beats Gastrointestinal: positive for constipation and abdominal pain, negative for marcin james, diarrhea and jaundice Genitourinary:positive for decreased urine output, negative for dysuria and nancy turia Objective: Vital Signs: Last Filed Vital Signs: 24 Fernanda r Range BP: 149/67 (09/28 649) Temp: 36.7 C (98.1 F) (09/28 649) Pulse: 95 (09/28 649) Respirations: 19 PER MINUTE (09/28 649) SpO2: 93 % (09/28 649) BP: (139-154)/(65-71) Temp: [36.6 C (97.8 F)-37 C (98.6 F)] Pulse: [84-95] Respirations: [18 PER MINUTE-19 PER MINUTE] SpO2: [87 %-97 %] Intensity Pain Scale (Self Report): 8 (09/29/19 0800) Vitals: 09/17/19 2350 09/19/19 1411 Weight: 77 kg (169 lb 12.1 oz) 76.7 kg (169 lb) Intake/Output Summary: (Last 24 hours) Intake/Output Summary (Last 24 hours) at 09/29/2019 0915 Last data filed at 09/29/2019 0652 Gross per 24 hour Intake 1115 ml Output 675 ml Net 440 ml Stool Occurrence: 0 Physical Exam General: Alert, no distress. Conjunctival pallor Neck: Supple, nontender, no JVD or lymphadenopathy Resp: Bilateral coarse rales CV: Regular rate and rhythm, S1, S2 normal, no murmur. No peripheral edema. GI: Soft, non-tender. Bowel sounds normal. Neuro: No focal deficits, CN 2-12 grossly intact bilaterally, oriented x3 Psych: normal affect and mood, remote and recent memory intact Lab Review Hematology: Lab Results Component Value Date HGB 8.3 09/29/2019 HCT 24.6 09/29/2019 PLTCT 222 09/29/2019 WBC 6.5 09/29/2019 NEUT 75 09/29/2019 ANC 4.90 09/29/2019 ALC 0.37 09/29/2019 WILLIE 15 09/29/2019 AMC 0.97 09/29/2019 ABC 0.06 09/29/2019 MCV 91.5 09/29/2019 MCHC 33.8 09/29/2019 MPV 6.6 09/29/2019 RDW 13.7 09/29/2019 , Coagulation: Lab Results Component Value Date PTT 27.5 09/18/2019 INR 1.4 09/18/2019 , General Chemistry: Lab Results Component Value Date NA 139 09/29/2019 K 4.9 09/29/2019 CL 103 09/29/2019 GAP 15 09/29/2019 BUN 79 09/29/2019 CR 6.57 09/29/2019 GLU 85 09/29/2019 CA 9.1 09/29/2019 ALBUMIN 2.8 09/25/2019 LACTIC 2.1 09/27/2019 MG 1.9 09/29/2019 TOTBILI 0.3 09/25/2019 and Mg and PO4: Lab Results Component Value Date MG 1.9 09/29/2019 Point of Care Testing (Last 24 hours) Glucose: 85 (09/29/19 0551) Radiology and other Diagnostics Review: Pertinent radiology reviewed. Jade Bejarano MS * Yisel Carlos MD - 09/28/2019 5:49 PM CDT General Progress Note Name: Mary Tim Today's Date: 09/28/2019 Admission Date: 09/17/2019 LOS: 10 days Assessment/Plan: Principal Problem: Acute renal failure (ARF) (HCC) Active Problems: Hyperkalemia High anion gap metabolic acidosis UTI (urinary tract infection) Physical debility ILD (interstitial lung disease) (HCC) Anemia Abnormal CT of the chest Abnormal abdominal CT scan Elevated CA 19-9 level 69 y.o.femalewith PMHx ofHTN and cervical (C3-C7) and lumbar (L3-L5) spina l fusionswho presentedfor progressively worsening weakness and fatigue and w as found to have acute renal failure with hyperkalemia and anion gap metabolic a cidosis ROSHAN; unclear etiology. Given extensive CT abdomen findings concern for systemic disease causing possible tubulointerstitial nephritis - likely ATN, Nephrology noted muddy brown casts and pyuria on microscopy - 7 at presentation, small improvement with IVF. Creatinine trended up to 6.33 today. - Renal US unremarkable - UPr:Cr 0.9, - Renal consulted, discussed with Dr. Coleman. Plan to replace Zambrano given diste nded urinary bladder and large kidneys and renal pelvis. Will discuss with linda ent tomorrow about possible kidney biopsy - accurate I&Os -P.o. intake improving after liberalizing diet -Match I&O, - BMP QD > renal planning for biopsy on 09/29. NPO @ [place] on 09/28. Abnormal CT abdomen pelvis; concern for systemic disease likley IgG-4 related di sease -CT abdomen pelvis was done for evaluation of liver lesion seen on CT chest. -Patient has minimal symptoms of vague abdominal discomfort and constipation -CT abdomin and pelvis showed multiple findings Abnormalities involving the nelia er, gallbladder, kidneys, right adrenal gland and retroperitoneum. Leading consi deration is lymphoma. Erdheim-Lancaster disease and IgG-4 related disease are marcy tional considerations.. Mild diffuse enlargement of the kidneys with ill-defined soft t issue thickening in the renal pelves and asymmetric perinephric stranding. Mild nodula r enlargement of the right adrenal gland with ill-defined stranding. Mild centra l retroperitoneal lymphadenopathy. Mild diffuse soft tissue thickening in the pr esacral space in the pelvis may represent additional lymphadenopathy. Multiple s mall hypodense hepatic lesions. Diffuse enlargement of the gallbladder with manju cystic stranding. Acute cholecystitis should also be considered for this finding.. Abnormal low attenuat ion tissue in the body and tail of the pancreas with a small calculus towards th e midline. This low-attenuation tissue most likely represents a dilated main maya creatic duct. -lipase 118, CA 19 93 -flow cytometry -Hematology consulted after reviewing imaging they felt low suspicion for lympho ma did not feel like the need to be monitored at this point. May reconsult if n eeded again. - GI consulted consult. Plan for EUS UTI UA shows blood and pyuria - UCx with e. coli and enterobacter. Sensitive to Rocephin -completed rocephin for 7 days 09/25 Hyperkalemia, resolved - aggressively treated prior to transfer - continue to monitor AGMA, -Started on p.o. bicarb. 1 L of 1/2NS with 100 meq bicarbonate drip per hour. -Monitor. Dyspnea, Fatigue; CT chest concerning for ILD: Sarcoidosis versus hypersensitivi ty pneumonitis - CXR at OSH without acute process - Echo here normal -Repeat chest x-ray today showed areas of fibrosis, suprabasal opacities may be due to atelectasis, pneumonia and/or scarring. -CT chest showed Right greater than left peribronchovascular and subpleural reti culation and architectural distortion with mid lung zone predominance most compatible wit h fibrosing interstitial lung disease. Leading considerations for this pattern o f fibrosis would include sarcoidosis especially given mediastinal and hilar lymp h nodes or potentially the fibrotic form of hypersensitivity pneumonitis. Pulmonary consultation suggested. . Scattered areas of groundglass opacity and consolidation may reflect new areas of infection including from viruses or represent acute exacerbation of underlyi ng interstitial lung disease. There are a few scattered nodules which may be inf ectious or inflammatory in nature. Attention on short-term follow-up CT in 3 months time to reassess.. Small left and trace right pleural effusions -Does have arthritic pain in her hand joints and feet. Has family history of jaime pus Plan -ILD work-up pending -Pulmonology consult, appreciate recommendations. Discussed with resident. Lamar osorio for EUS with BAL and possible biopsy today -Ig4 levels ordered to assess for Ig4 Disease -Possible kidney biopsy, consult with nephrology HTN - hold CECE, HCTZ -Blood pressure mildly elevated. Started on Norvasc 2.5, mg increase needed Chronic Back Pain - cont hydrocodone - emu oil prn Normocytic Anemia -Status post 1 PRBC 09/24.hemoglobin around 10. Transfuse if hemoglobin less swapnil n 7 -Iron studies showed mixed picture of iron deficiency and anemia of chronic dis ease - B12 and folate low, started replacement -LDH elevated. Haptoglobin normal. Peripheral smear showed normocytic anemia. Absolute lymphocytopenia. Mild monocytosis. Mild Transaminitis: Resolved - hepatitis panel; negative - trend Physical debility -PT OT eval.recommending inpatient. Patient agreeable for rehab. SW To assist w ith placement FEN: No IVF, BMP Q, Regular Code: Full, discussed on admit PPx: HsQ Dispo: Continue inpatient for evaluation and management of persistent severe ROSHAN , anemia and grossly abnormal CT chest and abdomen pelvis concerning for a syste paty disease. . PT OT recommending inpatient placement Subjective Mary Tim is a 69 y.o. female. Patient educated regarding renal biopsy. P atient denies pain. Not dyspneic. Patient without chills or vomiting. Medications Scheduled Meds:amitriptyline/gabapentin/emu oil(#) 4/4/10 % topical cream, , Top ical, Q8H amLODIPine (NORVASC) tablet 5 mg, 5 mg, Oral, QDAY cyanocobalamin (VITAMIN B-12) tablet 1,000 mcg, 1,000 mcg, Oral, QDAY folic acid (FOLVITE) tablet 1 mg, 1 mg, Oral, QDAY heparin (porcine) PF syringe 5,000 Units, 5,000 Units, Subcutaneous, Q8H* polyethylene glycol 3350 (MIRALAX) packet 17 g, 1 packet, Oral, QDAY senna (SENOKOT) tablet 2 tablet, 2 tablet, Oral, QHS sodium bicarbonate tablet 650 mg, 650 mg, Oral, BID Continuous Infusions: lactated ringers infusion 50 mL/hr at 09/27/19 2133 PRN and Respiratory Meds:bisacodyL QDAY PRN, calcium carbonate Q6H PRN, hydrALAZ INE Q6H PRN, HYDROcodone/acetaminophen Q6H PRN, melatonin QHS PRN, simethicone Q 6H PRN Review of Systems: Constitutional: negative for fevers and chills Eyes: negative for visual disturbance and irritation Ears, nose, mouth, throat, and face: positive for dry mouth, negative for tinnit us, ear drainage, nasal congestion, sore throat and hoarseness Respiratory: positive for dyspnea on exertion, negative for cough, sputum, hemop tysis or pleurisy/chest pain Cardiovascular: negative for chest pain, chest pressure/discomfort, palpitations , irregular heart beats Gastrointestinal: positive for constipation and abdominal pain, negative for marcin james, diarrhea and jaundice Genitourinary:positive for decreased urine output, negative for dysuria and nancy turia Objective: Vital Signs: Last Filed Vital Signs: 24 Fernanda r Range BP: 139/65 (09/27 1315) Temp: 36.6 C (97.8 F) (09/27 1315) Pulse: 88 (09/27 1315) Respirations: 18 PER MINUTE (09/27 1315) SpO2: 95 % (09/27 1315) SpO2 Pulse: 107 (09/26 1815) BP: (129-166)/(53-90) Temp: [36.3 C (97.3 F)-37 C (98.6 F)] Pulse: [79-113] Respirations: [18 PER MINUTE-26 PER MINUTE] SpO2: [92 %-98 %] Intensity Pain Scale (Self Report): 5 (09/28/19 0800) Vitals: 09/17/19 2350 09/19/19 1411 Weight: 77 kg (169 lb 12.1 oz) 76.7 kg (169 lb) Intake/Output Summary: (Last 24 hours) Intake/Output Summary (Last 24 hours) at 09/28/2019 1749 Last data filed at 09/28/2019 1700 Gross per 24 hour Intake 909 ml Output 1200 ml Net -291 ml Stool Occurrence: 1 Physical Exam General: Alert, no distress. Conjunctival pallor Neck: Supple, nontender, no JVD or lymphadenopathy Resp: Bilateral coarse rales CV: Regular rate and rhythm, S1, S2 normal, no murmur. No peripheral edema. GI: Soft, non-tender. Bowel sounds normal. Neuro: No focal deficits, CN 2-12 grossly intact bilaterally, oriented x3 Psych: normal affect and mood, remote and recent memory intact Lab Review Hematology: Lab Results Component Value Date HGB 8.7 09/28/2019 HCT 25.3 09/28/2019 PLTCT 209 09/28/2019 WBC 5.9 09/28/2019 NEUT 76 09/28/2019 ANC 4.54 09/28/2019 ALC 0.31 09/28/2019 WILLIE 16 09/28/2019 AMC 0.92 09/28/2019 ABC 0.06 09/28/2019 MCV 90.6 09/28/2019 MCHC 34.6 09/28/2019 MPV 6.6 09/28/2019 RDW 13.4 09/28/2019 and General Chemistry: Lab Results Component Value Date NA 137 09/28/2019 K 4.4 09/28/2019 CL 102 09/28/2019 GAP 15 09/28/2019 BUN 81 09/28/2019 CR 6.58 09/28/2019 GLU 82 09/28/2019 CA 8.9 09/28/2019 ALBUMIN 2.8 09/25/2019 LACTIC 2.1 09/27/2019 MG 1.9 09/28/2019 TOTBILI 0.3 09/25/2019 Point of Care Testing (Last 24 hours) Glucose: 82 (09/28/19 0658) Radiology and other Diagnostics Review: Pertinent radiology reviewed. Yisel Carlos MD * Levar Coleman DO - 09/28/2019 1:16 PM CDT Renal Progress Note Mary Tim Admission Date: 09/17/2019 Assessment and Plan Principal Problem: Acute renal failure (ARF) (HCC) Active Problems: Hyperkalemia High anion gap metabolic acidosis UTI (urinary tract infection) Physical debility ILD (interstitial lung disease) (HCC) Anemia Abnormal CT of the chest Abnormal abdominal CT scan Elevated CA 19-9 level Mary Tim is a 69 y.o. female ROSHAN - Initially though to be prerenal azotemia and had been on HCTZ and CECE. She had some hydronephrosis on US that was not felt signficant. - Creatinine improved from a peak of 7.32 to a ashley of 5.8 before now worsening again. - She has 0.9 grams protineuria, had 2+ blood on UA 09/17 and 10-20 WBC. UC from grew E coli and Enterobacter. Urine sediment exam had been consistent with UT I. - She has negative MPO/PR3 and hepatitis testing. - She had a CT which showed enlarged kidneys with infiltrative process - Kidney function has not improved - I am planning for renal biopsy Monday. - She has no acute dialysis needs but is high risk for needing dialysis soon if she does not have some improvement. ILD Anemia -had required a transfusion 09/24 Metabolic acidosis - improved Hyperkalemia - improved Levar Coleman DO Pager [phone] Subjective HPI: Mary Tim is a 69 y.o. female was feeling okay but complained of fati jorge. She denied dyspnea or edema. She denied nausea and vomiting. She has not thompson d any urinary symptoms. Medications MEDSamitriptyline/gabapentin/emu oil(#), , Topical, Q8H amLODIPine, 5 mg, Oral, QDAY cyanocobalamin, 1,000 mcg, Oral, QDAY folic acid, 1 mg, Oral, QDAY heparin (porcine), 5,000 Units, Subcutaneous, Q8H* polyethylene glycol 3350, 1 packet, Oral, QDAY senna, 2 tablet, Oral, QHS sodium bicarbonate, 650 mg, Oral, BID IV MEDS lactated ringers infusion 50 mL/hr at 09/27/19 2133 Prn bisacodyL QDAY PRN, calcium carbonate Q6H PRN 1,000 mg at 09/19/192326, h ydrALAZINE Q6H PRN Stopped at 09/26/192025, HYDROcodone/acetaminophen Q6H PRN 1 tablet at 09/28/19 0502, melatonin QHS PRN 5 mg at 09/27/19 214, simethicone Q 6H PRN 80 mg at 09/24/192204 Physical Exam Vital Signs: Last Filed In 24 Hours Vital Signs: 24 Hour Range BP: 129/53 (09/27 899) Temp: 36.3 C (97.3 F) (09/27 899) Pulse: 83 (09/27 0800) Respirations: 18 PER MINUTE (09/27 899) SpO2: 96 % (09/27 899) SpO2 Pulse: 107 (09/26 1815) BP: (129-169)/(53-90) Temp: [36.3 C (97.3 F)-37 C (98.6 F)] Pulse: [79-113] Respirations: [18 PER MINUTE-26 PER MINUTE] SpO2: [92 %-98 %] Intensity Pain Scale (Self Report): 5 (09/28/19 0800) Vitals: 09/17/19 2350 09/19/19 1411 Weight: 77 kg (169 lb 12.1 oz) 76.7 kg (169 lb) Constitutional: Appears well-developed and well-nourished. No distress. Pleasant . Head: Normocephalic and atraumatic. Mouth/Throat: No oropharyngeal exudate. Eyes: No scleral icterus or injection. Neck: No JVD present. No tracheal deviation present. Cardiovascular: Normal rate, regular rhythm, normal heart sounds and intact dist al pulses. No murmur. Pulmonary/Chest: Effort normal. No wheezes and no rales. Abdominal: Soft. Bowel sounds are normal. No distension. There is no tenderness or rebound. Musculoskeletal: No edema. No cyanosis or clubbing. Neurological: Alert. Conversant. Skin: Skin is warm and dry. No rash noted. Labs Recent Labs 09/26/19 1126 09/27/19 0411 09/28/19 0658 NA 135* 136* 137 K 4.0 4.4 4.4 CL 97* 101 102 CO2 21 19* 20* GAP 17* 16* 15* BUN 87* 86* 81* CR 6.33* 6.74* 6.58* GLU 88 93 82 CA 9.2 9.1 8.9 MG -- -- 1.9 PO4 -- -- 4.8* Recent Labs 09/26/19 1126 09/27/19 0411 09/28/19 0658 WBC 6.5 5.5 5.9 HGB 10.1* 9.0* 8.7* HCT 28.8* 26.5* 25.3* PLTCT 232 222 209 Estimated Creatinine Clearance: 8.1 mL/min (A) (based on SCr of 6.58 mg/dL (H)). Vitals: 09/17/19 2350 09/19/19 1411 Weight: 77 kg (169 lb 12.1 oz) 76.7 kg (169 lb) No results for input(s): PHART, PO2ART in the last 72 hours. Invalid input(s): PC02A Levar Coleman DO Pager [phone] * Omid Yang RN - 09/27/2019 7:40 PM CDT Patient arrived to room # (5535) via cart accompanied by transport. Patient diane sferred to the bed with assistance. Bedside safety checks completed. Initial pat ient assessment completed. Refer to flowsheet for details. Admission skin assessment completed with: ROLAND Arreola and ROLAND Ventura. Pressure injury present on arrival?: Yes 1. Head/Face/Neck: No 2. Trunk/Back: No 3. Upper Extremities: No 4. Lower Extremities: No 5. Pelvic/Coccyx: Yes 6. Assessed for device associated injury? Yes 7. Malnutrition Screening Tool (Nursing Nutrition Assessment) Completed? Yes See Doc Flowsheet for additional wound details. INTERVENTIONS: barrier cream applied to stage II on buttocks and wound team cons ulted * Kenji Peña, - 09/27/2019 6:13 PM CDT Renal Progress Note Mary Tim Admission Date: 09/17/2019 Assessment and Plan Principal Problem: Acute renal failure (ARF) (HCC) Active Problems: Hyperkalemia High anion gap metabolic acidosis UTI (urinary tract infection) Physical debility ILD (interstitial lung disease) (HCC) Anemia Abnormal CT of the chest Abnormal abdominal CT scan Elevated CA 19-9 level Mary Tim is a 69 y.o. female ROSHAN - Initially though to be prerenal azotemia and had been on HCTZ and CECE. She had some hydronephrosis on US that was not felt signficant. - Creatinine improved from a peak of 7.32 to a ashley of 5.8 before now worsening again. - She has 0.9 grams protineuria, had 2+ blood on UA 09/17 and 10-20 WBC. UC from grew E coli and Enterobacter. Urine sediment exam had been consistent with UT I. - She has negative MPO/PR3 and hepatitis testing. - She had a CT today and report is pending however does appear to have signfican t hydronephrosis and may need urology to get involved. ILD Anemia -had required a transfusion 09/24 Metabolic acidosis - improved Hyperkalemia - improved Plan - Plan for renal biopsy on Monday09/30/19. Order placed. Undetermined time - NPO @ [facility] Monday - Please hold anticoagulation Monday prior to renal biopsy - Patient will need to fly flat for minimum 6 hours after renal biopsy. Will nee d to plan for this - Post-renal instructions on day of biopsy - Monitor daily weights - Avoid NSAIDs and contrast if possible - Avoid nephrotoxic medications - Renally dose medications - No indication for urgent/emergent HD at this time - Will continue to follow - Please page with questions The patient was assessed and the appropriate management was discussed with Dr. Karine Peña D.O. Nephrology Fellow Pager #: This note was composed with Dragon Dictation. As such, there may be transcriptio nal errors. For questions, please contact Dr. Peña. Subjective No overnight events noted by nursing staff. Ambulating well. Tolerating diet wel l. Moving bowels and voiding well. No uremic symptoms at this time Medications MEDSamitriptyline/gabapentin/emu oil(#), , Topical, Q8H [MAY Hold] amLODIPine, 5 mg, Oral, QDAY [MAY Hold] cyanocobalamin, 1,000 mcg, Oral, QDAY [MAY Hold] folic acid, 1 mg, Oral, QDAY [MAY Hold] heparin (porcine), 5,000 Units, Subcutaneous, Q8H* [MAY Hold] polyethylene glycol 3350, 1 packet, Oral, QDAY [MAY Hold] senna, 2 tablet, Oral, QHS [MAY Hold] sodium bicarbonate, 650 mg, Oral, BID IV MEDS lactated ringers infusion sodium chloride 0.45% (1/2NS) with sodium bicarbonate 100 mEq 1,100 mL IV in fusion 100 mL/hr at 09/27/19 0948 Prn [MAY Hold] bisacodyL QDAY PRN, [MAY Hold] calcium carbonate Q6H PRN 1,000 mg at 09/19/19 2327, hydrALAZINE Q6H PRN Stopped at 09/26/19 2026, [MAY Hold] HY DROcodone/acetaminophen Q6H PRN 1 tablet at 09/27/19 0409, [MAY Hold] melatonin QHS PRN 5 mg at 09/25/19 2220, [MAY Hold] simethicone Q6H PRN 80 mg at 09/24/19 2205 Physical Exam Vital Signs: Last Filed In 24 Hours Vital Signs: 24 Hour Range BP: 166/90 (09/26 1799) Temp: 36.6 C (97.9 F) (09/26 1799) Pulse: 113 (09/26 1799) Respirations: 26 PER MINUTE (09/26 1799) SpO2: 98 % (09/26 1799) SpO2 Pulse: 112 (09/26 1799) BP: (147-173)/(64-90) Temp: [36.5 C (97.7 F)-37.2 C (99 F)] Pulse: [84-113] Respirations: [16 PER MINUTE-26 PER MINUTE] SpO2: [93 %-98 %] Intensity Pain Scale (Self Report): 5 (09/27/19 1511) Vitals: 09/17/19234909/19/19 1411 Weight: 77 kg (169 lb 12.1 oz) 76.7 kg (169 lb) Constitutional: Appears well-developed and well-nourished. No distress. Pleasant . Head: Normocephalic and atraumatic. Mouth/Throat: No oropharyngeal exudate. Eyes: No scleral icterus or injection. Neck: No JVD present. No tracheal deviation present. Cardiovascular: Normal rate, regular rhythm, normal heart sounds and intact dist al pulses. No murmur. Pulmonary/Chest: Effort normal. No wheezes and no rales. Abdominal: Soft. Bowel sounds are normal. No distension. There is no tenderness or rebound. Musculoskeletal: No edema. No cyanosis or clubbing. Neurological: Alert. Conversant. Skin: Skin is warm and dry. No rash noted. Labs Recent Labs 09/25/1939909/26/19 1126 09/27/19 0411 NA 136* 135* 136* K 4.0 4.0 4.4 CL 101 97* 101 CO2 23 21 19* GAP 12 17* 16* BUN 86* 87* 86* CR 5.99* 6.33* 6.74* GLU 79 88 93 CA 8.4* 9.2 9.1 ALBUMIN 2.8* -- -- Recent Labs 09/25/19 0400 09/26/19 1126 09/27/19 0411 WBC 5.7 6.5 5.5 HGB 6.7* 10.1* 9.0* HCT 19.6* 28.8* 26.5* PLTCT 175 232 222 AST 14 -- -- ALT 11 -- -- ALKPHOS 92 -- -- Estimated Creatinine Clearance: 7.9 mL/min (A) (based on SCr of 6.74 mg/dL (H)). Vitals: 09/17/19234909/19/19 1411 Weight: 77 kg (169 lb 12.1 oz) 76.7 kg (169 lb) No results for input(s): PHART, PO2ART in the last 72 hours. Invalid input(s): PC02A Kenji Peña DO [id number] Associated attestation - Levar Coleman DO - 09/27/2019 11:40 PM CDT ATTESTATION I personally performed the ruiz portions of the E/M visit, discussed case with th e fellow and concur with fellow documentation of history, physical exam, assessm ent, and treatment plan unless otherwise noted. Staff name: Levar Coleman DO * Carolin Paula MD - 09/27/2019 1:42 PM CDT General Progress Note Name: Mary Tim Today's Date: 09/27/2019 Admission Date: 09/17/2019 LOS: 9 days Assessment/Plan: Principal Problem: Acute renal failure (ARF) (HCC) Active Problems: Hyperkalemia High anion gap metabolic acidosis UTI (urinary tract infection) Physical debility ILD (interstitial lung disease) (HCC) Anemia Abnormal CT of the chest Abnormal abdominal CT scan Elevated CA 19-9 level 69 y.o.femalewith PMHx ofHTN and cervical (C3-C7) and lumbar (L3-L5) spina l fusionswho presentedfor progressively worsening weakness and fatigue and w as found to have acute renal failure with hyperkalemia and anion gap metabolic a cidosis ROSHAN; unclear etiology. Given extensive CT abdomen findings concern for systemic disease causing possible tubulointerstitial nephritis - likely ATN, Nephrology noted muddy brown casts and pyuria on microscopy - 7 at presentation, small improvement with IVF. Creatinine trended up to 6.33 today. - Renal US unremarkable - UPr:Cr 0.9, - Renal consulted, discussed with Dr. Coleman. Plan to replace Zambrano given diste nded urinary bladder and large kidneys and renal pelvis. Will discuss with linda ent tomorrow about possible kidney biopsy - accurate I&Os -P.o. intake improving after liberalizing diet -Match I&O, - BMP QD Abnormal CT abdomen pelvis; concern for systemic disease likley IgG-4 related di sease -CT abdomen pelvis was done for evaluation of liver lesion seen on CT chest. -Patient has minimal symptoms of vague abdominal discomfort and constipation -CT abdomin and pelvis showed multiple findings Abnormalities involving the nelia er, gallbladder, kidneys, right adrenal gland and retroperitoneum. Leading consi deration is lymphoma. Erdheim-Lancaster disease and IgG-4 related disease are marcy tional considerations.. Mild diffuse enlargement of the kidneys with ill-defined soft t issue thickening in the renal pelves and asymmetric perinephric stranding. Mild nodula r enlargement of the right adrenal gland with ill-defined stranding. Mild centra l retroperitoneal lymphadenopathy. Mild diffuse soft tissue thickening in the pr esacral space in the pelvis may represent additional lymphadenopathy. Multiple s mall hypodense hepatic lesions. Diffuse enlargement of the gallbladder with manju cystic stranding. Acute cholecystitis should also be considered for this finding.. Abnormal low attenuat ion tissue in the body and tail of the pancreas with a small calculus towards th e midline. This low-attenuation tissue most likely represents a dilated main maya creatic duct. -lipase 118, CA 19 93 -flow cytometry -Hematology consulted after reviewing imaging they felt low suspicion for lympho ma did not feel like the need to be monitored at this point. May reconsult if n eeded again. - GI consulted consult. Plan for EUS UTI UA shows blood and pyuria - UCx with e. coli and enterobacter. Sensitive to Rocephin -completed rocephin for 7 days 09/25 Hyperkalemia, resolved - aggressively treated prior to transfer - continue to monitor AGMA, -Started on p.o. bicarb. 1 L of 1/2NS with 100 meq bicarbonate drip per hour. -Monitor. Dyspnea, Fatigue; CT chest concerning for ILD: Sarcoidosis versus hypersensitivi ty pneumonitis - CXR at OSH without acute process - Echo here normal -Repeat chest x-ray today showed areas of fibrosis, suprabasal opacities may be due to atelectasis, pneumonia and/or scarring. -CT chest showed Right greater than left peribronchovascular and subpleural reti culation and architectural distortion with mid lung zone predominance most compatible wit h fibrosing interstitial lung disease. Leading considerations for this pattern o f fibrosis would include sarcoidosis especially given mediastinal and hilar lymp h nodes or potentially the fibrotic form of hypersensitivity pneumonitis. Pulmonary consultation suggested. . Scattered areas of groundglass opacity and consolidation may reflect new areas of infection including from viruses or represent acute exacerbation of underlyi ng interstitial lung disease. There are a few scattered nodules which may be inf ectious or inflammatory in nature. Attention on short-term follow-up CT in 3 months time to reassess.. Small left and trace right pleural effusions -Does have arthritic pain in her hand joints and feet. Has family history of jaime pus Plan -ILD work-up pending -Pulmonology consult, appreciate recommendations. Discussed with resident. Lamar osorio for EUS with BAL and possible biopsy today -Ig4 levels ordered to assess for Ig4 Disease -Possible kidney biopsy, consult with nephrology HTN - hold CECE, HCTZ -Blood pressure mildly elevated. Started on Norvasc 2.5, mg increase needed Chronic Back Pain - cont hydrocodone - emu oil prn Normocytic Anemia -Status post 1 PRBC 09/24.hemoglobin around 10. Transfuse if hemoglobin less swapnil n 7 -Iron studies showed mixed picture of iron deficiency and anemia of chronic dis ease - B12 and folate low, started replacement -LDH elevated. Haptoglobin normal. Peripheral smear showed normocytic anemia. Absolute lymphocytopenia. Mild monocytosis. Mild Transaminitis: Resolved - hepatitis panel; negative - trend Physical debility -PT OT eval.recommending inpatient. Patient agreeable for rehab. SW To assist w ith placement FEN: No IVF, BMP Q, Regular Code: Full, discussed on admit PPx: HsQ Dispo: Continue inpatient for evaluation and management of persistent severe ROSHAN , anemia and grossly abnormal CT chest and abdomen pelvis concerning for a syste paty disease. . PT OT recommending inpatient placement ATTESTATION I personally performed or re-performed the history, physical exam and treatment for the E/M. I discussed the case with the Medical Student, and concur with the Medical Student documentation of history, physical exam and treatment plan unles s otherwise noted. Patient reports doing fine this morning. We reviewed the findings of CT abdomen pelvis. Regarding my concern for some systemic disease like I see for related disease. She is agreeable to undergo the work-up. She has chronic vague abdomi nal discomfort and constipation. Noted plan for IR renal biopsy, bronchoscopy w ith BAL and biopsy and EUS. ILD work-up was negative except for mild elevated a ldolase. SPEP UPEP, IgG4 subclasses ordered. Flow cytometry pending. Renal fu nction slowly worsening. Worsening anion gap metabolic acidosis today. Started on bicarb oral as well as IV. Elevated lactic acid. Likely due to hypovolemia being n.p.o. Also noted to have mild elevated CA-19-9 and lipase. Normal AFP. Staff name: Carolin Paula MD Date: 09/27/2019 Subjective Mary Tim is a 69 y.o. female. Patient states she felt okay. She is looki ng forward to going home. Appetite is okay. Small bowel movements are reported. She denies N/V and fevers and chills. Medications Scheduled Meds:amitriptyline/gabapentin/emu oil(#) 4/4/10 % topical cream, , Top ical, Q8H amLODIPine (NORVASC) tablet 2.5 mg, 2.5 mg, Oral, QDAY cyanocobalamin (VITAMIN B-12) tablet 1,000 mcg, 1,000 mcg, Oral, QDAY folic acid (FOLVITE) tablet 1 mg, 1 mg, Oral, QDAY heparin (porcine) PF syringe 5,000 Units, 5,000 Units, Subcutaneous, Q8H* polyethylene glycol 3350 (MIRALAX) packet 17 g, 1 packet, Oral, QDAY senna (SENOKOT) tablet 2 tablet, 2 tablet, Oral, QHS sodium bicarbonate tablet 650 mg, 650 mg, Oral, BID Continuous Infusions: sodium chloride 0.45% (1/2NS) with sodium bicarbonate 100 mEq 1,100 mL IV in fusion 100 mL/hr at 09/27/19 0948 PRN and Respiratory Meds:bisacodyL QDAY PRN, calcium carbonate Q6H PRN, hydrALAZ INE Q6H PRN, HYDROcodone/acetaminophen Q6H PRN, melatonin QHS PRN, simethicone Q 6H PRN Review of Systems: Constitutional: negative for fevers and chills Eyes: negative for visual disturbance and irritation Ears, nose, mouth, throat, and face: positive for dry mouth, negative for tinnit us, ear drainage, nasal congestion, sore throat and hoarseness Respiratory: positive for dyspnea on exertion, negative for cough, sputum, hemop tysis or pleurisy/chest pain Cardiovascular: negative for chest pain, chest pressure/discomfort, palpitations , irregular heart beats Gastrointestinal: positive for constipation and abdominal pain, negative for marcin james, diarrhea and jaundice Genitourinary:positive for decreased urine output, negative for dysuria and nancy turia Objective: Vital Signs: Last Filed Vital Signs: 24 Fernanda r Range BP: 153/64 (09/26 1137) Temp: 36.9 C (98.4 F) (09/26 1137) Pulse: 88 (09/26 1137) Respirations: 16 PER MINUTE (09/26 1137) SpO2: 95 % (09/26 1137) BP: (144-173)/(64-74) Temp: [36.5 C (97.7 F)-37.2 C (99 F)] Pulse: [84-91] Respirations: [16 PER MINUTE-18 PER MINUTE] SpO2: [93 %-97 %] Intensity Pain Scale (Self Report): 7 (09/27/19 0409) Vitals: 09/17/19 2350 09/19/19 1411 Weight: 77 kg (169 lb 12.1 oz) 76.7 kg (169 lb) Intake/Output Summary: (Last 24 hours) Intake/Output Summary (Last 24 hours) at 09/27/2019 1342 Last data filed at 09/27/2019 0700 Gross per 24 hour Intake Output 1225 ml Net -1225 ml Stool Occurrence: 1 Physical Exam General: Alert, no distress. Conjunctival pallor Neck: Supple, nontender, no JVD or lymphadenopathy Resp: Bilateral coarse rales CV: Regular rate and rhythm, S1, S2 normal, no murmur. No peripheral edema. GI: Soft, non-tender. Bowel sounds normal. Neuro: No focal deficits, CN 2-12 grossly intact bilaterally, oriented x3 Psych: normal affect and mood, remote and recent memory intact Lab Review Hematology: Lab Results Component Value Date HGB 9.0 09/27/2019 HCT 26.5 09/27/2019 PLTCT 222 09/27/2019 WBC 5.5 09/27/2019 NEUT 70 09/27/2019 ANC 3.82 09/27/2019 ALC 0.48 09/27/2019 WILLIE 18 09/27/2019 AMC 1.01 09/27/2019 ABC 0.06 09/27/2019 MCV 89.5 09/27/2019 MCHC 34.1 09/27/2019 MPV 6.9 09/27/2019 RDW 13.2 09/27/2019 and General Chemistry: Lab Results Component Value Date NA 136 09/27/2019 K 4.4 09/27/2019 CL 101 09/27/2019 GAP 16 09/27/2019 BUN 86 09/27/2019 CR 6.74 09/27/2019 GLU 93 09/27/2019 CA 9.1 09/27/2019 ALBUMIN 2.8 09/25/2019 LACTIC 2.1 09/27/2019 MG 2.3 09/18/2019 TOTBILI 0.3 09/25/2019 Point of Care Testing (Last 24 hours) Glucose: 93 (09/27/19 0411) Radiology and other Diagnostics Review: Pertinent radiology reviewed. Jade Bejarano MS * Elsy De La Garza OT - 09/27/2019 11:18 AM CDT OCCUPATIONAL THERAPY PROGRESS NOTE Name: Mary Tim : 1950 Age: [age] y.o. Admission Date: 09/17/2019 LOS: 9 days Mobility Progressive Mobility Level: Walk in hallway Distance Walked (feet): 140 ft Level of Assistance: Assist X1 Assistive Device: Walker Time Tolerated: 11-30 minutes Activity Limited By: Pain;Fatigue Subjective Pertinent Dx per Physician: PMH: back pain, cervical fusion, lumbar fusion, & chronic pain- admit with worsening weakness/fatigue & found to have acute renal failure with hyperkalemia & anion gap metabolic acidosis Precautions: Falls Pain / Complaints: Patient has no c/o pain;Patient agrees to participate in ther apy Objective Psychosocial Status: Willing and Cooperative to Participate Home Living Type of Home: Mobile Home Home Layout: One Level;Stairs to Enter w/ Rails(3-5 stairs w/ rail to enter) Bathroom Shower / Tub: Tub/Shower Unit Bathroom Toilet: Standard Bathroom Equipment: Grab Bars in Shower;Shower Chair Prior Function Level Of [place]: Independent with ADLs and functional transfers;Independen t with homemaking w/ ambulation Lives With: Alone Receives Help From: None Needed Other Function Comments: Denies recent h/o falls but does report falling ~6 year s ago in her bathtub which ultimately resulted in her back surgeries. Lives devora e with no assist available. ADL Mobility Bed Mobility: Supine to Sit: Minimal assist Transfer Type: Sit to stand Transfer: Assistance Level: From;Bed;Minimal assist Transfer: Assistive Device: Roller walker Transfer: Type of Assistance: For safety considerations;For strength deficit Gait Distance: 140 feet Gait: Assistance Level: Minimal assist Gait: Assistive Device: Roller walker Activity Tolerance Endurance: 2/5 Tolerates 10-20 Minutes Exercise w/Multiple Rests Assessment Assessment: Decreased ADL Status;Decreased Endurance;Decreased Self-Care Trans;D ecreased High-Level ADLs Goal Formulation: Patient Comments: Pt with decreased activity tolerance and likely some generalized weakn ess associated with recent medical events and prolonged acute stay. Would most g reatly benefit from inpatient setting for continued therapy at d/c as pt lives a lone with no available assist and would be at increased risk for falls. AM-PAC 6 Clicks Daily Activity Inpatient Putting on and taking off regular lower body clothes?: A Lot Bathing (Including washing, rinsing, drying): A Little Toileting, which includes using toilet, bedpan, or urinal: A Little Putting on and taking off regular upper body clothing: None Taking care of personal grooming such as brushing teeth: None Eating meals?: None Daily Activity Raw Score: 20 Standardized (t-scale) score: 42.03 CMS 0-100% Score: 38.32 CMS G Code Modifier: CJ Plan OT Frequency: 3-5x/week OT Plan for Next Visit: Sock management & continued endurance training for standing ADLs progressing to IADLs as able ADL Goals Patient Will Perform Grooming: Standing at Sink;w/ Mod Independent Patient Will Perform LE Dressing: w/ Modified Independent Patient Will Perform Toileting: w/ Modified Independent Functional Transfer Goals Pt Will Perform All Functional Transfers: Modified Independent, w/ Good Judgment /Safety OT Discharge Recommendations Recommendation: Inpatient setting Patient Currently Requires Physical Assist With: Bathing;Dressing;All home funct ioning ADLs Therapist: Elsy De La Garza OTR/L [id number] Date: 09/27/2019 * Paz Vicente - 09/27/2019 8:53 AM CDT PHYSICAL THERAPY PROGRESS NOTE Name: Mary Tim : 1950 Age: [age] y.o. Admission Date: 09/17/2019 LOS: 9 days Mobility Progressive Mobility Level: Walk in hallway Distance Walked (feet): 140 ft Level of Assistance: Assist X1 Assistive Device: Walker Time Tolerated: 11-30 minutes Subjective Significant hospital events: PMH: back pain, cervical fusion, lumbar fusion, chr onic pain, HTN. Reason for admission: Progressively worsening weakness and fatig ue. Patient was found to have acute renal failure with hyperkalemia and anion ga p metabolic acidosis. Mental / Cognitive Status: Alert;Cooperative;Follows Commands Pain: Patient complains of pain Pain Location: Left(Flank) Pain Interventions: Patient agrees to participate in therapy(heating pad placed post session) Ambulation Assist: Independent Mobility in Community without Device Patient Owned Equipment: Single Point Cane;Roller Walker Home Situation: Lives Alone Type of Home: Mobile Home Entry Stairs: 3-5 Stairs;Rail on 1 Side In-Home Stairs: No Stairs Comments: Blood product running during session. Bed Mobility/Transfer Comments: Patient up to chair upon arrival. Transfer Type: Sit to/from Stand Transfer: Assistance Level: To/From;Bed Side Chair;Standby Assist Transfer: Assistive Device: Roller Walker Transfers: Type Of Assistance: For Safety Considerations Other Transfer Type: Sit to/from Stand Other Transfer: Assistance Level: To/From;Bed;Standby Assist Other Transfer: Assistive Device: Roller Walker Other Transfer: Type Of Assistance: For Safety Considerations End Of Activity Status: Up in Chair;Nursing Notified;Instructed Patient to Reque st Assist with Mobility;Instructed Patient to Use Call Light Comments: Patient missing top denturesl transferred to edge of bed to check bed side chair. Pivot transfer had minor unsteadiness when stepping backwards needin g close assistance for safety. Gait Gait Distance: 140 feet Gait: Assistance Level: (Contact guard assist) Gait: Assistive Device: Roller Walker Gait: Descriptors: Pace: Slow;Decreased foot clearance RLE;Decreased foot cleara nce LLE;Decreased step length Comments: Occasional unsteady gait with directional changes with standby to cont act guard for safety. Activity Limited By: Complaint of Fatigue Education Persons Educated: Patient Patient Barriers To Learning: None Noted Teaching Methods: Verbal Instruction Patient Response: Verbalized Understanding Topics: Plan/Goals of PT Interventions;Mobility Progression;Up with Assist Only; Importance of Increasing Activity;Ambulate With Nursing;Safety Awareness Assessment/Progress Assessment/Progress: Should Improve w/ Continued PT Comments: Patient making gains with all mobility; possibly biopsy later today. R ecommend continued skilled PT to address deficits and reduce risk for falls. AM-PAC 6 Clicks Basic Mobility Inpatient Turning from your back to your side while in a flat bed without using bed rails: None Moving from lying on your back to sitting on the side of a flatbed without using bedrails : A Little Moving to and from a bed to a chair (including a wheelchair): A Little Standing up from a chair using your arms (e.g. wheelchair, or bedside chair): A Little To walk in hospital room: A Little Climbing 3-5 steps with a railing: A Little Raw Score: 19 Standardized (T-scale) Score: 42.48 Basic Mobility CMS 0-100%: 36.99 [facility] G Code Modifier for Basic Mobility: CJ Goals Goal Formulation: With Patient Time For Goal Achievement: 5 days, To, 7 days Patient Will Transfer Bed/Chair: Independently Patient Will Ambulate: Greater than 200 Feet, w/ No Device, Independently Patient Will Go Up / Down Stairs: 3-5 Stairs, Independently Plan Plan Frequency: 3-5 Days per Week PT Discharge Recommendations Recommendation: Inpatient setting Therapist: Paz Vicente Date: 09/27/2019 * Kristi Denton, RN - 09/27/2019 6:30 AM CDT 0425: pts BP 173/74. MTim Caceres notified. No new orders at this time. Will rayna nue to monitor. Assumed pt care at 1900. A/Ox4. Tolerating RA. SR on tele. SBP 160s-170s Adequate UOP per zambrano. BM- Pain controlled with current regimen. See MAR NPO since MN HFR bundle in place. Call light within reach. Will continue to monitor. * Tatianan Perez RN - 09/26/2019 6:58 PM CDT Pt Sr on tele. VSS. Tolerating RA, UOP adequate, +BM. Pain tolerated on current regimen. 1700: Orders received to place Zambrano catheter. Team paged to confirm order d/t p t voiding adequately throughout the day and minimal post-void residual. Orders c onfirmed and Zambrano catheter placed by staff. Plan for NPO at 0000. * Carloin Paula MD - 09/26/2019 2:16 PM CDT General Progress Note Name: Mary Tim Today's Date: 09/26/2019 Admission Date: 09/17/2019 LOS: 8 days Assessment/Plan: Principal Problem: Acute renal failure (ARF) (HCC) Active Problems: Hyperkalemia High anion gap metabolic acidosis UTI (urinary tract infection) Physical debility ILD (interstitial lung disease) (HCC) Anemia 69 y.o. female with PMHx of HTN and cervical (C3-C7) and lumbar (L3-L5) spinal f usions who presented for progressively worsening weakness and fatigue and was fo und to have acute renal failure with hyperkalemia and anion gap metabolic acidos is ROSHAN; unclear etiology. Given extensive CT abdomen findings concern for systemic disease - likely ATN, Nephrology noted muddy brown casts and pyuria on microscopy - 7 at presentation, small improvement with IVF. Creatinine trended up to 6.33 today. - Renal US unremarkable - UPr:Cr 0.9, - Renal consulted, discussed with Dr. Coleman. Plan to replace Zambrano given diste nded urinary bladder and large kidneys and renal pelvis. Will discuss with linda ent tomorrow about possible kidney biopsy - accurate I&Os -P.o. intake improving after liberalizing diet -Match I&O, - BMP QD Abnormal CT abdomen pelvis; concern for systemic disease. Lymphoma versus Erdhe im-Ryan disease vs IgG-4 related disease -CT abdomen pelvis was done for evaluation of liver lesion seen on CT chest. -Patient has minimal symptoms of vague abdominal discomfort and constipation -CT abdomin and pelvis showed multiple findings Abnormalities involving the nelia er, gallbladder, kidneys, right adrenal gland and retroperitoneum. Leading consi deration is lymphoma. Erdheim-Ryan disease and IgG-4 related disease are marcy tional considerations.. Mild diffuse enlargement of the kidneys with ill-defined soft t issue thickening in the renal pelves and asymmetric perinephric stranding. Mild nodula r enlargement of the right adrenal gland with ill-defined stranding. Mild centra l retroperitoneal lymphadenopathy. Mild diffuse soft tissue thickening in the pr esacral space in the pelvis may represent additional lymphadenopathy. Multiple s mall hypodense hepatic lesions. Diffuse enlargement of the gallbladder with manju cystic stranding. Acute cholecystitis should also be considered for this finding.. Abnormal low attenuat ion tissue in the body and tail of the pancreas with a small calculus towards th e midline. This low-attenuation tissue most likely represents a dilated main maya creatic duct. -Check lipase, CA 19, flow cytometry -Hematology consulted for opinion - GI consulted consult for possible ERCP and EUS UTI UA shows blood and pyuria - UCx with e. coli and enterobacter. Sensitive to Rocephin -completed rocephin for 7 days 09/25 Hyperkalemia, resolved - aggressively treated prior to transfer - continue to monitor AGMA, -Encourage oral fluid intake Dyspnea, Fatigue; CT chest concerning for ILD: Sarcoidosis versus hypersensitivi ty pneumonitis - CXR at OSH without acute process - Echo here normal -Repeat chest x-ray today showed areas of fibrosis, suprabasal opacities may be due to atelectasis, pneumonia and/or scarring. -CT chest showed Right greater than left peribronchovascular and subpleural reti culation and architectural distortion with mid lung zone predominance most compatible wit h fibrosing interstitial lung disease. Leading considerations for this pattern o f fibrosis would include sarcoidosis especially given mediastinal and hilar lymp h nodes or potentially the fibrotic form of hypersensitivity pneumonitis. Pulmonary consultation suggested. . Scattered areas of groundglass opacity and consolidation may reflect new areas of infection including from viruses or represent acute exacerbation of underlyi ng interstitial lung disease. There are a few scattered nodules which may be inf ectious or inflammatory in nature. Attention on short-term follow-up CT in 3 months time to reassess.. Small left and trace right pleural effusions -Does have arthritic pain in her hand joints and feet. Has family history of jaime pus -ILD work-up pending -Pulmonology consult, appreciate recommendations. Discussed with resident. Lamar n for EUS with BAL and possible biopsy tomorrow HTN - hold CECE, HCTZ -Blood pressure mildly elevated. Started on Norvasc 2.5 mg. Chronic Back Pain - cont hydrocodone - emu oil prn Normocytic Anemia -Status post 1 PRBC 09/24.hemoglobin around 10. Transfuse if hemoglobin less swapnil n 7 -Iron studies showed mixed picture of iron deficiency and anemia of chronic dis ease - B12 and folate low, started replacement -LDH elevated. Haptoglobin normal. Peripheral smear showed normocytic anemia. Absolute lymphocytopenia. Mild monocytosis. Mild Transaminitis: Resolved - hepatitis panel; negative - trend Physical debility -PT OT eval.recommending inpatient. Patient agreeable for rehab. SW To assist w ith placement FEN: No IVF, BMP Q, Regular Code: Full, discussed on admit PPx: HsQ Dispo: Continue inpatient for evaluation and management of persistent severe ROSHAN , anemia and grossly abnormal CT chest and abdomen pelvis concerning for a syste paty disease. . PT OT recommending inpatient placement I spent a total of 35 minutes in pt care today with an estimated 20 minutes spen t reviewing course to date, including chart review of vitals, labs, overnight ev ents, and coordinating care. Complexity of medical decision making is high because of the multi-system nature of disease process. Subjective No acute overnight events. Patient reports feeling little better today. She is up sitting in a chair. P.o. intake improved. Urinating fine. She only reports mild abdominal discomfort and constipation. No nausea vomiting. She is hoping to go to rehab soon. No fever or chills. No chest pain or palpitations. No shortness of breath or c ough. No nausea, vomiting, diarrhea,. No rashes. Medications Scheduled Meds:amitriptyline/gabapentin/emu oil(#) 4/4/10 % topical cream, , Top ical, Q8H amLODIPine (NORVASC) tablet 2.5 mg, 2.5 mg, Oral, QDAY cyanocobalamin (VITAMIN B-12) tablet 1,000 mcg, 1,000 mcg, Oral, QDAY folic acid (FOLVITE) tablet 1 mg, 1 mg, Oral, QDAY heparin (porcine) PF syringe 5,000 Units, 5,000 Units, Subcutaneous, Q8H* polyethylene glycol 3350 (MIRALAX) packet 17 g, 1 packet, Oral, QDAY senna (SENOKOT) tablet 2 tablet, 2 tablet, Oral, QHS Continuous Infusions: PRN and Respiratory Meds:bisacodyL QDAY PRN, calcium carbonate Q6H PRN, hydrALAZ INE Q6H PRN, HYDROcodone/acetaminophen Q6H PRN, melatonin QHS PRN, simethicone Q 6H PRN Objective: Vital Signs: Last Filed Vital Signs: 24 Fernanda r Range BP: 151/63 (09/25 1136) Temp: 36.5 C (97.7 F) (09/25 1136) Pulse: 73 (09/25 1136) Respirations: 16 PER MINUTE (09/25 1136) SpO2: 96 % (09/25 1136) BP: (138-169)/(61-81) Temp: [36.4 C (97.6 F)-37.1 C (98.7 F)] Pulse: [68-83] Respirations: [16 PER MINUTE-18 PER MINUTE] SpO2: [94 %-97 %] Intensity Pain Scale (Self Report): 8 (09/26/19 1240) Vitals: 09/17/19 2350 09/19/19 1411 Weight: 77 kg (169 lb 12.1 oz) 76.7 kg (169 lb) Intake/Output Summary: (Last 24 hours) Intake/Output Summary (Last 24 hours) at 09/26/2019 1416 Last data filed at 09/26/2019 1300 Gross per 24 hour Intake 1148 ml Output 1550 ml Net -402 ml Stool Occurrence: 1 Physical Exam General: Alert, no distress. Conjunctival pallor Neck: Supple, nontender, no JVD or lymphadenopathy Resp: Bilateral coarse rales CV: Regular rate and rhythm, S1, S2 normal, no murmur. No peripheral edema. GI: Soft, non-tender. Bowel sounds normal. Neuro: No focal deficits, CN 2-12 grossly intact bilaterally, oriented x3 Psych: normal affect and mood, remote and recent memory intact Lab Review Pertinent labs reviewed Point of Care Testing (Last 24 hours) Glucose: 88 (09/26/19 1126) Radiology and other Diagnostics Review: Pertinent radiology reviewed. Ct Chest Wo Contrast Addendum Date: 09/25/2019 Finalized by Eric Brennan M.D. on 09/25/2019 8:21 AM. Dictated by Emmanuel Brennan M.D. on 09/25/2019 8:04 AM.Addendum: Additionally there is an indete rminate right hepatic lobe hypoattenuating lesion as well as a dilated gallbladd er. These findings could be further evaluated with abdomen and pelvis CT with co ntrast and liver protocol. CRITICAL FINDINGS: The above impressions were verball y communicated by telephone to Dr. Paula by Dr. Brennan at 09/25/2019 8:40 AM. Fi nalized by Eric Brennan M.D. on 09/25/2019 8:40 AM. Dictated by Marquis Brennan M.D. on 09/25/2019 8:38 AM. Result Date: 09/25/2019 1. Right greater than left peribronchovascular and subpleural reticulation and a rchitectural distortion with mid lung zone predominance most compatible with fib rosing interstitial lung disease. Leading considerations for this pattern of fib rosis would include sarcoidosis especially given mediastinal and hilar lymph nod es or potentially the fibrotic form of hypersensitivity pneumonitis. Pulmonary c onsultation suggested. 2. Scattered areas of groundglass opacity and consolidati on may reflect new areas of infection including from viruses or represent acute exacerbation of underlying interstitial lung disease. 3. There are a few scatter ed nodules which may be infectious or inflammatory in nature. Attention on short -term follow-up CT in 3 months time to reassess. 4. Small left and trace right p leural effusions. #FOLLOW Carolin Paula MD Pager [phone] * Levar Coleman DO - 09/26/2019 12:46 PM CDT Renal Progress Note Mary Tim Admission Date: 09/17/2019 Assessment and Plan Principal Problem: Acute renal failure (ARF) (HCC) Active Problems: Hyperkalemia High anion gap metabolic acidosis UTI (urinary tract infection) Physical debility ILD (interstitial lung disease) (HCC) Anemia Mary Tim is a 69 y.o. female ROSHAN - Initially though to be prerenal azotemia and had been on HCTZ and CECE. She had some hydronephrosis on US that was not felt signficant. - Creatinine improved from a peak of 7.32 to a ashley of 5.8 before now worsening again. - She has 0.9 grams protineuria, had 2+ blood on UA 09/17 and 10-20 WBC. UC from grew E coli and Enterobacter. Urine sediment exam had been consistent with UT I. - She has negative MPO/PR3 and hepatitis testing. - She had a CT today and report is pending however does appear to have signfican t hydronephrosis and may need urology to get involved. ILD Anemia -had required a transfusion 09/24 Metabolic acidosis - improved Hyperkalemia - improved Levar Coleman DO Pager [phone] Subjective HPI: Mary Tim is a 69 y.o. female was feeling okay but complained of fati jorge. She denied dyspnea or edema. She denied nausea and vomiting. She has not thompson d any urinary symptoms. Medications MEDSamitriptyline/gabapentin/emu oil(#), , Topical, Q8H amLODIPine, 2.5 mg, Oral, QDAY cefTRIAXone (ROCEPHIN) IV, 1 g, Intravenous, Q24H* cyanocobalamin, 1,000 mcg, Oral, QDAY folic acid, 1 mg, Oral, QDAY heparin (porcine), 5,000 Units, Subcutaneous, Q8H* polyethylene glycol 3350, 1 packet, Oral, QDAY senna, 2 tablet, Oral, QHS IV MEDS Prn bisacodyL QDAY PRN, calcium carbonate Q6H PRN 1,000 mg at 09/19/19 2327, hydrALAZINE Q6H PRN, HYDROcodone/acetaminophen Q6H PRN 1 tablet at 0439, melatonin QHS PRN 5 mg at 09/25/19 2220, simethicone Q6H PRN 80 mg at 0 09/24/19 2205 Physical Exam Vital Signs: Last Filed In 24 Hours Vital Signs: 24 Hour Range BP: 151/63 (09/25 1137) Temp: 36.5 C (97.7 F) (09/25 1137) Pulse: 73 (09/25 1137) Respirations: 16 PER MINUTE (09/25 113) SpO2: 96 % (09/25 113) SpO2 Pulse: 73 (09/24 1336) BP: (108-169)/(61-91) Temp: [36.4 C (97.6 F)-37.1 C (98.7 F)] Pulse: [68-83] Respirations: [16 PER MINUTE-21 PER MINUTE] SpO2: [94 %-97 %] Intensity Pain Scale (Self Report): 3 (09/26/19 0840) Vitals: 09/17/19 2350 09/19/19 1411 Weight: 77 kg (169 lb 12.1 oz) 76.7 kg (169 lb) Constitutional: Appears well-developed and well-nourished. No distress. Pleasant . Head: Normocephalic and atraumatic. Mouth/Throat: No oropharyngeal exudate. Eyes: No scleral icterus or injection. Neck: No JVD present. No tracheal deviation present. Cardiovascular: Normal rate, regular rhythm, normal heart sounds and intact dist al pulses. No murmur. Pulmonary/Chest: Effort normal. No wheezes and no rales. Abdominal: Soft. Bowel sounds are normal. No distension. There is no tenderness or rebound. Musculoskeletal: No edema. No cyanosis or clubbing. Neurological: Alert. Conversant. Skin: Skin is warm and dry. No rash noted. Labs Recent Labs 09/24/19 0630 09/25/19 0400 09/26/19 1126 NA 134* 136* 135* K 4.0 4.0 4.0 CL 97* 101 97* CO2 22 23 21 GAP 15* 12 17* BUN 88* 86* 87* CR 5.93* 5.99* 6.33* GLU 89 79 88 CA 8.6 8.4* 9.2 ALBUMIN 2.8* 2.8* -- Recent Labs 09/24/19 0630 09/25/19 0400 09/26/19 1126 WBC 6.9 5.7 6.5 HGB 7.6* 6.7* 10.1* HCT 22.3* 19.6* 28.8* PLTCT 217 175 232 AST 16 14 -- ALT 14 11 -- ALKPHOS 98 92 -- Estimated Creatinine Clearance: 8.4 mL/min (A) (based on SCr of 6.33 mg/dL (H)). Vitals: 09/17/19 2350 09/19/19 1411 Weight: 77 kg (169 lb 12.1 oz) 76.7 kg (169 lb) No results for input(s): PHART, PO2ART in the last 72 hours. Invalid input(s): PC02A Levar Coleman DO Pager [phone] * Delphine Galvan DO - 09/26/2019 8:22 AM CDT Pulmonary Consult Note Admission Date: 09/17/2019 LOS: 8 Principal Problem: Acute renal failure (ARF) (HCC) Active Problems: Hyperkalemia High anion gap metabolic acidosis UTI (urinary tract infection) Physical debility ILD (interstitial lung disease) (HCC) Anemia Reason for Consult: "admitted with fatigue, weinberg and ARF. ct chest concerning fo r ILD/sarcoidosis. pls assist in further management." Consult type: Opinion with orders Impression 69 yo F with PMH of HTN, cervical and lumbar spinal fusions, reported RA who is admitted with acute renal failure, found to have abnormal chest CT findings conc erning for possible ILD versus sarcoidosis. Restrictive lung disease Abnormal chest CT -Patchy interstitial opacities associated with airways - Discussed in ILD conference on 09/26/2019, favor collagen vascular disease, add itional differential of sarcoidosis, hypersensitivity pneumonitis -She is without cough, reports dyspnea 2 to 3 days prior to admission that resol rufus on day 2 of admission. -Family history of autoimmune disorders -father with SLE, sister with an unknown vasculitis involving the lungs and kidneys - spot urine calcium 0.7 - ILD labs: IgG low 707; RF, CK, IgM and IgA all wnl - PFTs 09/26/2019 with moderate to severe restrictive pattern with moderate diffu kerry defect - Requested CXR, CT A/P, spinal imaging from [facility] in [place], [place]. Recommendations > Patient agreeable to proceed with bronchoscopy with EBUS and BAL, will plan for tomorrow > Follow ILD labs > Requested imaging to be clouded over from [facility] in [place], [place] Patient seen and recommendations have been formulated with Dr. Estrada. Please s ee attestation for possible additional recommendations. Delphine Galvan DO Internal Medicine Resident | PGY-2 Pager [phone] or Voalte Me Subjective: She reports she is doing well this morning, feels that she has more energy. Continues to have some dizziness associated with position change. Tole rating diet well without difficulty swallowing or coughing. No cough, fever or chills, shortness of breath. Allergies: Allergies Allergen Reactions Mobic [Meloxicam] SWOLLEN TONGUE Scheduled Meds: MEDSamitriptyline/gabapentin/emu oil(#), , Topical, Q8H cefTRIAXone (ROCEPHIN) IV, 1 g, Intravenous, Q24H* cyanocobalamin, 1,000 mcg, Oral, QDAY folic acid, 1 mg, Oral, QDAY heparin (porcine), 5,000 Units, Subcutaneous, Q8H* polyethylene glycol 3350, 1 packet, Oral, QDAY senna, 2 tablet, Oral, QHS IV MEDS Prn bisacodyL QDAY PRN, calcium carbonate Q6H PRN 1,000 mg at 09/19/19 2327, hydrALAZINE Q6H PRN, HYDROcodone/acetaminophen Q6H PRN 1 tablet at 0439, melatonin QHS PRN 5 mg at 09/25/19 2220, simethicone Q6H PRN 80 mg at 0 09/24/19 2205 HOME MEDS Medications Prior to Admission Medication Sig calcium carbonate (TUMS) 500 mg (200 mg elemental calcium) chewable tablet C hew 500-1,000 mg by mouth every 6 hours as needed. enalapril (VASOTEC) 10 mg tablet Take 5 mg by mouth daily. hydroCHLOROthiazide (HYDRODIURIL) 25 mg tablet Take 25 mg by mouth every mor norman. HYDROcodone/acetaminophen (NORCO) 10/325 mg tablet Take 1 tablet by mouth ev nicole 6 hours as needed for Pain potassium chloride SR (K-DUR) 10 mEq tablet Take 10 mEq by mouth twice daily . Take with a meal and a full glass of water. Review of Systems: 14 point ROS performed and negative with exception of weakness, dizziness with p ositional change Vital Signs: Last Filed In 24 Hours Vital Signs: 24 Hour Range BP: 139/61 (09/25 728) Temp: 36.6 C (97.9 F) (09/25 728) Pulse: 72 (09/25 07) Respirations: 16 PER MINUTE (09/25 728) SpO2: 94 % (09/25 728) SpO2 Pulse: 73 (09/24 1336) BP: (108-169)/(61-91) Temp: [36.4 C (97.5 F)-37.1 C (98.7 F)] Pulse: [68-87] Respirations: [16 PER MINUTE-24 PER MINUTE] SpO2: [94 %-97 %] Physical Exam: General: alert and oriented, cooperative and no distress Head: normocephalic, atraumatic, without obvious abnormality Eyes:?conjunctivae/corneas clear. PERRL, EOM's intact Throat: dentures in place, dry mucosa, lips normal Neck: supple, symmetrical, trachea midline Back: symmetric, no curvature. ROM normal. No CVA tenderness. Lungs: velcro-like crackles over right middle lung adan, otherwise no wheezes or rhonchi Heart: regular rate and rhythm, S1, S2 normal, no murmur, click, rub or gallop Abdomen:?bowel sounds present, nontender, no organomegaly Extremities: bony changes involving DIPs bilateral hands, pulses palpable, no pe shae edema or skin lesions Neurologic: grossly normal, alert and oriented X 3 Lab/Radiology/Other Diagnostic Tests: Recent Labs 09/24/19 0630 09/25/19 0400 NA 134* 136* K 4.0 4.0 CL 97* 101 CO2 22 23 GAP 15* 12 BUN 88* 86* CR 5.93* 5.99* GLU 89 79 CA 8.6 8.4* ALBUMIN 2.8* 2.8* Recent Labs 09/24/19 0630 09/25/19 0400 WBC 6.9 5.7 HGB 7.6* 6.7* HCT 22.3* 19.6* PLTCT 217 175 AST 16 14 ALT 14 11 ALKPHOS 98 92 Estimated Creatinine Clearance: 8.9 mL/min (A) (based on SCr of 5.99 mg/dL (H)). Vitals: 09/17/19 2350 09/19/19 1411 Weight: 77 kg (169 lb 12.1 oz) 76.7 kg (169 lb) No results for input(s): PHART, PO2ART in the last 72 hours. Invalid input(s): PC02A Pertinent radiology reviewed. Associated attestation - Sanjay Estrada MD - 09/26/2019 4:45 PM CDT ATTESTATION I personally performed the riuz portions of the E/M visit and reviewed laboratory and radiological findings, discussed case with the resident and concur with Dr. Galvan's documentation of history, physical exam, assessment and treatment pl an. Where appropriate, addendums have been made to the note. Patient with interstitial changes in CT scan and moderate to severe restrictive changes and impaired diffusion capacity. Was discussed today in ILD conference a nd it is felt she may profit from bronchoscopy with EBUS, BAL and endobronchial biopsies to evaluate for sarcoid or other etiologies of her pulmonary infiltrate s. Serological workup with ILD panel pending. Sanjay Estrada MD 09/26/2019 * Nayeli Colby RN - 09/26/2019 5:38 AM CDT 0538: notified of patients BP of 161/70. Patient asymptomatic. Will continue to monitor. Per MD Caceres, no new orders. * Nayeli Colby RN - 09/25/2019 7:18 PM CDT Patient arrived to room # (HC402) Patient transferred to the chair with assistan ce. Bedside safety checks completed. Initial patient assessment completed. Refer to flowsheet for details. Admission skin assessment completed with: Marlen Burks RN Pressure injury present on arrival?: No 1. Head/Face/Neck: No 2. Trunk/Back: No 3. Upper Extremities: No 4. Lower Extremities: No 5. Pelvic/Coccyx: No 6. Assessed for device associated injury? Yes 7. Malnutrition Screening Tool (Nursing Nutrition Assessment) Completed? Yes See Doc Flowsheet for additional wound details. Patient has moisture break down on the L and R buttocks. This is currently being charted on in the doc flow sheets. INTERVENTIONS: * Noble Perez MD - 09/25/2019 3:00 PM CDT Renal Progress Note Name: Mary Tim Today's Date: 09/25/2019 Admission Date: 09/17/2019 LOS: 7 days Assessment and Plan Principal Problem: Acute renal failure (ARF) (HCC) Active Problems: Hyperkalemia High anion gap metabolic acidosis UTI (urinary tract infection) Physical debility ILD (interstitial lung disease) (HCC) Anemia Mary Tim is a 69 y.o. female 1. ROSHAN - Slowly recovering; clinically consistent with resolving ATN - Urine sediment loaded with pus and muddy brown acute renal failure casts. - Doubt the hydronephrosis on renal sonogram is significant - I'm bothered that the recovery has leveled off the past couple of days. Since she DID have some hydronephrosis and since a zambrano was in place at the time, se ems reasonable to repeat a sonogram. 2. Metabolic Acidosis - Mixed gap/nongap, probably from renal failure - Appropriately receiving IV isotonic sodium bicarbonate to at least partially c orrect the pretty severe acidosis and volume expand. - Has resolved 3. Hyperkalemia - Likely due to ROSHAN - Has normalized after volume expansion and shifting. 4. Pyuria - Urine sediment exam suggested UTI - Growing Enterobacter and E coli - Now on Rocephin 5. Anemia - Slowly worsening; may be in part due to hemodilution Recommend: - Match I/O going forward - Since oral intake is poor continue to supplement with IVF as needed - Agree with transfusing 1 U PRBC - Keep on regular diet to try to encourage more dietary intake. - No acute indication for dialysis - Accurate I/O and daily weights - Avoid nephrotoxins Noble Perez MD Pager [phone] Subjective Mary Tim is a 69 y.o. female feeling better today. Said she ate a little better and feels stronger than yesterday. Medications Medications MEDSamitriptyline/gabapentin/emu oil(#), , Topical, Q8H cefTRIAXone (ROCEPHIN) IV, 1 g, Intravenous, Q24H* cyanocobalamin, 1,000 mcg, Oral, QDAY folic acid, 1 mg, Oral, QDAY heparin (porcine), 5,000 Units, Subcutaneous, Q8H* polyethylene glycol 3350, 1 packet, Oral, QDAY senna, 2 tablet, Oral, QHS IV MEDS Prn bisacodyL QDAY PRN, calcium carbonate Q6H PRN 1,000 mg at 09/19/19 2327, h ydrALAZINE Q6H PRN, HYDROcodone/acetaminophen Q6H PRN 1 tablet at 09/25/19 1253, melatonin QHS PRN 5 mg at 09/24/19 2205, simethicone Q6H PRN 80 mg at 09/24/195 Physical Exam Vital Signs: Last Filed In 24 Hours Vital Signs: 24 Hour Range BP: 138/69 (09/24 1425) Temp: 36.4 C (97.6 F) (09/24 1425) Pulse: 68 (09/24 1425) Respirations: 17 PER MINUTE (09/24 1425) SpO2: 97 % (09/24 1425) SpO2 Pulse: 73 (09/24 1336) BP: (106-157)/(66-91) Temp: [35.8 C (96.5 F)-37.1 C (98.8 F)] Pulse: [68-87] Respirations: [17 PER MINUTE-24 PER MINUTE] SpO2: [95 %-97 %] Intensity Pain Scale (Self Report): 5 (09/25/19 0748) Intake/Output Summary (Last 24 hours) at 09/25/2019 1500 Last data filed at 09/25/2019 1425 Gross per 24 hour Intake 2759.67 ml Output 800 ml Net 1959.67 ml Vitals: 09/17/19 2350 09/19/19 1411 Weight: 77 kg (169 lb 12.1 oz) 76.7 kg (169 lb) Gen: Alert and Oriented, No Acute Distress HEENT: Sclera normal; MMM CV: no JVD, S1 and S2 normal, no rubs, murmurs or gallops Pulm: Clear to Auscultation bilateral GI: BS+ x4, non-tender to palpation Neuro: Grossly normal, moving all extremities, speech intact Ext: no edema, clubbing or cyanosis Skin: no rash Labs: Recent Labs 09/23/19 0537 09/24/19 0630 09/25/19 0400 NA 135* 134* 136* K 3.9 4.0 4.0 CL 97* 97* 101 CO2 22 22 23 GAP 16* 15* 12 BUN 89* 88* 86* CR 6.02* 5.93* 5.99* GLU 87 89 79 CA 8.9 8.6 8.4* ALBUMIN 3.0* 2.8* 2.8* Recent Labs 09/23/19 0537 09/24/19 0630 09/25/19 0400 WBC 7.0 6.9 5.7 HGB 8.3* 7.6* 6.7* HCT 23.7* 22.3* 19.6* PLTCT 232 217 175 AST 18 16 14 ALT 14 14 11 ALKPHOS 107 98 92 Estimated Creatinine Clearance: 8.9 mL/min (A) (based on SCr of 5.99 mg/dL (H)). Vitals: 09/17/19 2350 09/19/19 1411 Weight: 77 kg (169 lb 12.1 oz) 76.7 kg (169 lb) No results for input(s): PHART, PO2ART in the last 72 hours. Invalid input(s): PC02A * Carolin Paula MD - 09/25/2019 2:06 PM CDT General Progress Note Name: Mary Tim Today's Date: 09/25/2019 Admission Date: 09/17/2019 LOS: 7 days Assessment/Plan: Principal Problem: Acute renal failure (ARF) (HCC) Active Problems: Hyperkalemia High anion gap metabolic acidosis UTI (urinary tract infection) Physical debility ILD (interstitial lung disease) (HCC) Anemia 69 y.o. female with PMHx of HTN and cervical (C3-C7) and lumbar (L3-L5) spinal f usions who presented for progressively worsening weakness and fatigue and was fo und to have acute renal failure with hyperkalemia and anion gap metabolic acidos is ROSHAN; only mild improvement since admission - likely ATN, Nephrology noted muddy brown casts and pyuria on microscopy - 7 at presentation, small improvement with IVF. Creatinine stable around 6. 5 .99 today - Renal US unremarkable - UPr:Cr 0.9, - Renal consulted, discussed with Dr. Perez - accurate I&Os -P.o. intake improving after liberalizing diet -Match I&O, - BMP QD UTI UA shows blood and pyuria - UCx with e. coli and enterobacter. Sensitive to Rocephin -cont rocephin for 7 days (day 6) Hyperkalemia, resolved - aggressively treated prior to transfer - continue to monitor AGMA, ; resolved Dyspnea, Fatigue; CT chest concerning for ILD: Sarcoidosis versus hypersensitivi ty pneumonitis - CXR at OSH without acute process - Echo here normal -Repeat chest x-ray today showed areas of fibrosis, suprabasal opacities may be due to atelectasis, pneumonia and/or scarring. -CT chest showed Right greater than left peribronchovascular and subpleural reti culation and architectural distortion with mid lung zone predominance most compatible wit h fibrosing interstitial lung disease. Leading considerations for this pattern o f fibrosis would include sarcoidosis especially given mediastinal and hilar lymp h nodes or potentially the fibrotic form of hypersensitivity pneumonitis. Pulmonary consultation suggested. . Scattered areas of groundglass opacity and consolidation may reflect new areas of infection including from viruses or represent acute exacerbation of underlyi ng interstitial lung disease. There are a few scattered nodules which may be inf ectious or inflammatory in nature. Attention on short-term follow-up CT in 3 months time to reassess.. Small left and trace right pleural effusions -Does have arthritic pain in her hand joints and feet. 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 6.7. 1 PRBC ord ered. Transfuse if hemoglobin less than 7 -Iron studies showed mixed picture of iron deficiency and anemia of chronic dis ease - B12 and folate low, started replacement -Check LDH, haptoglobin, peripheral smear Mild Transaminitis: Resolved - hepatitis panel; negative - trend Physical debility -PT OT eval.recommending inpatient today. [facility] FEN: No IVF, BMP Q, Regular Code: Full, discussed on admit PPx: HsQ Dispo: Continue inpatient for persistent severe ROSHAN, anemia and CT chest concern ing for ILD. PT OT recommending inpatient placement I spent a total of 35 minutes in pt care today with an estimated 20 minutes spen t reviewing course to date, including chart review of vitals, labs, overnight ev ents, and coordinating care. Complexity of medical decision making is high because of the multi-system nature of disease process. Subjective No acute overnight events. Patient reports feeling little better today. P.o. i ntake improved after liberalizing diet. She denies any shortness of breath. Radha hill reports urinating. No fevers or chills. Patient does report chronic arth ritic pain in her hands and feet. Patient reports not sleeping well at night No fever or chills. No chest pain or palpitations. No shortness of breath or c ough. No nausea, vomiting, diarrhea,. No rashes. Medications Scheduled Meds:amitriptyline/gabapentin/emu oil(#) 4/4/10 % topical cream, , Top ical, Q8H cefTRIAXone (ROCEPHIN) IVP 1 g, 1 g, Intravenous, Q24H* folic acid (FOLVITE) tablet 1 mg, 1 mg, Oral, QDAY heparin (porcine) PF syringe 5,000 Units, 5,000 Units, Subcutaneous, Q8H* polyethylene glycol 3350 (MIRALAX) packet 17 g, 1 packet, Oral, QDAY senna (SENOKOT) tablet 2 tablet, 2 tablet, Oral, QHS Continuous Infusions: PRN and Respiratory Meds:bisacodyL QDAY PRN, calcium carbonate Q6H PRN, hydrALAZ INE Q6H PRN, HYDROcodone/acetaminophen Q6H PRN, melatonin QHS PRN, simethicone Q 6H PRN Objective: Vital Signs: Last Filed Vital Signs: 24 Fernanda r Range BP: 143/75 (09/24 1252) Temp: 36.8 C (98.3 F) (09/24 1252) Pulse: 75 (09/24 1252) Respirations: 21 PER MINUTE (09/24 1252) SpO2: 97 % (09/24 1252) SpO2 Pulse: 74 (09/24 1252) BP: (106-157)/(66-82) Temp: [35.8 C (96.5 F)-37.1 C (98.8 F)] Pulse: [72-87] Respirations: [18 PER MINUTE-24 PER MINUTE] SpO2: [95 %-97 %] Intensity Pain Scale (Self Report): 5 (09/25/19 0748) Vitals: 09/17/19 2350 09/19/19 1411 Weight: 77 kg (169 lb 12.1 oz) 76.7 kg (169 lb) Intake/Output Summary: (Last 24 hours) Intake/Output Summary (Last 24 hours) at 09/25/2019 1406 Last data filed at 09/25/2019 1155 Gross per 24 hour Intake 2200 ml Output 600 ml Net 1600 ml Stool Occurrence: 1 Physical Exam General: Alert, no distress. Conjunctival pallor Neck: Supple, nontender, no JVD or lymphadenopathy Resp: Bilateral coarse rales CV: Regular rate and rhythm, S1, S2 normal, no murmur. No peripheral edema. GI: Soft, non-tender. Bowel sounds normal. Neuro: No focal deficits, CN 2-12 grossly intact bilaterally, oriented x3 Psych: normal affect and mood, remote and recent memory intact Lab Review Pertinent labs reviewed Point of Care Testing (Last 24 hours) Glucose: 79 (09/25/19 0400) Radiology and other Diagnostics Review: Pertinent radiology reviewed. Ct Chest Wo Contrast Addendum Date: 09/25/2019 Finalized by Eric Brennan M.D. on 09/25/2019 8:21 AM. Dictated by Emmanuel Brennan M.D. on 09/25/2019 8:04 AM.Addendum: Additionally there is an indete rminate right hepatic lobe hypoattenuating lesion as well as a dilated gallbladd er. These findings could be further evaluated with abdomen and pelvis CT with co ntrast and liver protocol. CRITICAL FINDINGS: The above impressions were verball y communicated by telephone to Dr. Paula by Dr. Brennan at 09/25/2019 8:40 AM. Fi nalized by Eric Brennan M.D. on 09/25/2019 8:40 AM. Dictated by Marquis Brennan M.D. on 09/25/2019 8:38 AM. Result Date: 09/25/2019 1. Right greater than left peribronchovascular and subpleural reticulation and a rchitectural distortion with mid lung zone predominance most compatible with fib rosing interstitial lung disease. Leading considerations for this pattern of fib rosis would include sarcoidosis especially given mediastinal and hilar lymph nod es or potentially the fibrotic form of hypersensitivity pneumonitis. Pulmonary c onsultation suggested. 2. Scattered areas of groundglass opacity and consolidati on may reflect new areas of infection including from viruses or represent acute exacerbation of underlying interstitial lung disease. 3. There are a few scatter ed nodules which may be infectious or inflammatory in nature. Attention on short -term follow-up CT in 3 months time to reassess. 4. Small left and trace right p leural effusions. #FOLLOW Carolin Paula MD Pager [phone] * Nayeli Street, PT - 09/25/2019 1:39 PM CDT PHYSICAL THERAPY PROGRESS NOTE Name: Mary Tim : 1950 Age: [age] y.o. Admission Date: 09/17/2019 LOS: 7 days Mobility Progressive Mobility Level: Walk in hallway Distance Walked (feet): 75 ft Level of Assistance: Stand by assistance Assistive Device: Walker Time Tolerated: 11-30 minutes Subjective Significant hospital events: PMH: back pain, cervical fusion, lumbar fusion, chr onic pain, HTN. Reason for admission: Progressively worsening weakness and fatig ue. Patient was found to have acute renal failure with hyperkalemia and anion ga p metabolic acidosis. Mental / Cognitive Status: Alert;Cooperative;Follows Commands Pain: Patient has no complaint of pain Ambulation Assist: Independent Mobility in Community without Device Patient Owned Equipment: Single Point Cane;Roller Walker Home Situation: Lives Alone Type of Home: Mobile Home Entry Stairs: 3-5 Stairs;Rail on 1 Side In-Home Stairs: No Stairs Blood product running during session. Bed Mobility/Transfer Bed Mobility: Supine to Sit: Standby Assist Transfer Type: Sit to Stand Transfer: Assistance Level: To/From;Bed;Standby Assist Transfer: Assistive Device: Roller Walker Gait Gait Distance: 80 feet Gait: Assistance Level: Standby Assist Gait: Assistive Device: Roller Walker Gait: Descriptors: Pace: Slow;Decreased foot clearance RLE;Decreased foot cleara nce LLE Assessment/Progress Assessment/Progress: The patient with improved performance this afternoon compar ed to yesterday - able to ambulate 80 feet without a rest break. However, in ord er to return home safely would need to demonstrate consistency in performance. Zoya ppears as if she fatigued fairly quickly this morning with OT. AM-PAC 6 Clicks Basic Mobility Inpatient Turning from your back to your side while in a flat bed without using bed rails: None Moving from lying on your back to sitting on the side of a flatbed without using bedrails : A Little Moving to and from a bed to a chair (including a wheelchair): A Little Standing up from a chair using your arms (e.g. wheelchair, or bedside chair): A Little To walk in hospital room: A Little Climbing 3-5 steps with a railing: A Little Raw Score: 19 Standardized (T-scale) Score: 42.48 Basic Mobility CMS 0-100%: 36.99 CMS G Code Modifier for Basic Mobility: CJ Goals Goal Formulation: With Patient Time For Goal Achievement: 5 days, To, 7 days Patient Will Transfer Bed/Chair: Independently Patient Will Ambulate: Greater than 200 Feet, w/ No Device, Independently Patient Will Go Up / Down Stairs: 3-5 Stairs, Independently Plan Plan Frequency: 3-5 Days per Week Plan for progression: Continue to work on increasing activity PT Discharge Recommendations Recommendation: Inpatient setting Therapist: Nayeli Street, PT, DPT Date: 09/25/2019 * Funmilayo Sahu OT - 09/25/2019 8:45 AM CDT OCCUPATIONAL THERAPY ASSESSMENT NOTE Name: Mary Tim : 1950 Age: [age] y.o. Admission Date: 09/17/2019 LOS: 7 days Mobility Patient Turn/Position: Self Progressive Mobility Level: Walk in room Distance Walked (feet): 5 ft(+10) Level of Assistance: Assist X1 Assistive Device: Walker Time Tolerated: 11-30 minutes Activity Limited By: Weakness;Fatigue Subjective Pertinent Dx per Physician: PMH: back pain, cervical fusion, lumbar fusion, & chronic pain- admit with worsening weakness/fatigue & found to have acute renal failure with hyperkalemia & anion gap metabolic acidosis Precautions: Falls Pain / Complaints: Patient has no c/o pain;Patient agrees to participate in ther apy Objective Psychosocial Status: Willing and Cooperative to Participate Home Living Type of Home: Mobile Home Home Layout: One Level;Stairs to Enter w/ Rails(3-5 stairs w/ rail to enter) Bathroom Shower / Tub: Tub/Shower Unit Bathroom Toilet: Standard Bathroom Equipment: Grab Bars in Shower;Shower Chair Prior Function Level Of [place]: Independent with ADLs and functional transfers;Independen t with homemaking w/ ambulation Lives With: Alone Receives Help From: None Needed Other Function Comments: Denies recent h/o falls but does report falling ~6 year s ago in her bathtub which ultimately resulted in her back surgeries. Lives devora e with no assist available. ADL's Where Assessed: Standing at Sink(Toilet in Room) Grooming Assist: Stand By Assist Grooming Deficits: Standing With Assistive Device;Supervision/Safety Toileting Assist: Minimal Assist Toileting Deficits: Supervision/Safety;Steadying Comment: Participates in toileting with contact guard assist for safety. Stands at sink to wash her face and clean her dentures with roller walker and standby a ssist. ADL Mobility Bed Mobility: Supine to Sit: Standby assist Bed Mobility: Sit to Supine: Standby assist Transfer Type: Sit to/from stand Transfer: Assistance Level: From;Bed;Standby assist Transfer: Assistive Device: Roller walker Transfer: Type of Assistance: For safety considerations Other Transfer Type: Sit to/from stand Other Transfer: Assistance Level: To/from;Toilet;Minimal assist(contact guard as sist) Other Transfer: Assistive Device: Roller walker Other Transfer: Type of Assistance: For safety considerations End of Activity Status: In bed Gait Distance: 15 feet(5+10) Gait: Assistance Level: Minimal assist Gait: Assistive Device: Roller walker Gait Comments: Ambulates throughout room with roller walker and contact guard as sist. Takes rest break between toilet and sink. Activity Tolerance Endurance: 3/5 Tolerates 25-30 Minutes Exercise w/Multiple Rests Comment: C/o positional dizziness that resolves with seated rest breaks- pt repo rts this is baseline. Cognition Overall Cognitive Status: WFL to Adequately Complete Self Care Tasks Safely UE AROM Overall BUE AROM WNL: Yes Coordination: Adequate to Complete ADLs Grasp: Bilateral Grasp Functional for Activity UE Strength / Tone Overall Strength / Tone: WFL Able to Perform ADL Tasks Education Persons Educated: Patient Teaching Methods: Verbal Instruction Patient Response: Verbalized and Demo Understanding Topics: Role of OT, Goals for Therapy Goal Formulation: With Patient Assessment Assessment: Decreased ADL Status;Decreased Endurance;Decreased Self-Care Trans;D ecreased High-Level ADLs Goal Formulation: Patient Comments: Pt with decreased activity tolerance and likely some generalized weakn ess associated with recent medical events and prolonged acute stay. Would most g reatly benefit from inpatient setting for continued therapy at d/c as pt lives a lone with no available assist and would be at increased risk for falls. AM-PAC 6 Clicks Daily Activity Inpatient Putting on and taking off regular lower body clothes?: A Little Bathing (Including washing, rinsing, drying): A Little Toileting, which includes using toilet, bedpan, or urinal: A Little Putting on and taking off regular upper body clothing: None Taking care of personal grooming such as brushing teeth: None Eating meals?: None Daily Activity Raw Score: 21 Standardized (t-scale) score: 44.27 CMS 0-100% Score: 32.79 CMS G Code Modifier: CJ Plan OT Frequency: 3-5x/week OT Plan for Next Visit: Sock management & continued endurance training for standing ADLs progressing to IADLs as able ADL Goals Patient Will Perform Grooming: Standing at Sink;w/ Mod Independent Patient Will Perform LE Dressing: w/ Modified Independent Patient Will Perform Toileting: w/ Modified Independent Functional Transfer Goals Pt Will Perform All Functional Transfers: Modified Independent, w/ Good Judgment /Safety OT Discharge Recommendations Recommendation: Inpatient setting Patient Currently Requires Physical Assist With: All home functioning ADLs;Ambul ation;Bathing;Dressing;Toileting Patient Currently Requires Supervision For: Standing ADLs Patient Currently Requires Equipment: Walker with wheels Therapist: EDWIN Leblanc/[facility] [id number] Date: 09/25/2019 * Lisa Marmolejo RN - 09/25/2019 2:15 AM CDT Assessment completed/ Pt resting quietly with eyes closed/ No new needs, complai nts or request expressed/ Will cont to monitor. * Lisa Marmolejo RN - 09/24/2019 8:22 PM CDT Assessment completed/ POC reviewed and updated after discussion with pt/ Pt calm and cooperative / Denies c/o pain, SOB, or any other discomfort/ Med Private C on-call paged at patient's request to request evening sleeping aid/ Enc pt to ca ll with any other needs, changes, or concerns - pt able to demonstrate use of ca ll system without difficultly/ Will cont to monitor. * Carolin Paula MD - 09/24/2019 3:16 PM CDT General Progress Note Name: Mary Tim Today's Date: 09/24/2019 Admission Date: 09/17/2019 LOS: 6 days Assessment/Plan: Principal Problem: Acute renal failure (ARF) (HCC) Active Problems: Hyperkalemia High anion gap metabolic acidosis UTI (urinary tract infection) Physical debility 69 y.o. female with PMHx of HTN and cervical (C3-C7) and lumbar (L3-L5) spinal f usions who presented for progressively worsening weakness and fatigue and was fo und to have acute renal failure with hyperkalemia and anion gap metabolic acidos is ROSHAN; slowly improving - likely ATN, Nephrology noted muddy brown casts and pyuria on microscopy - 7 at presentation, small improvement with IVF. Slight creatinine trended up t luiza 6.02 - Renal US unremarkable - UPr:Cr 0.9, - Renal consulted, discussed with Dr. Perez - accurate I&Os -P.o. intake remains poor due to limited food options -Match I&O, will give another liter NS today. Encouraged p.o. fluid intake. Liberalize diet. - BMP QD UTI UA shows blood and pyuria - UCx with e. coli and enterobacter. Sensitive to Rocephin -cont rocephin for 7 days (day 5) Hyperkalemia, resolved - aggressively treated prior to transfer - continue to monitor AGMA, ; resolved Dyspnea, Fatigue - likely due to renal failure - CXR at OSH without acute process - Echo here normal -Repeat chest x-ray today showed areas of fibrosis, suprabasal opacities may be due to atelectasis, pneumonia and/or scarring. -CT chest ordered. 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 Transfuse if hem oglobin less than 7 - B12 and folate low, started replacement - can transition B12 to po on discharge Mild Transaminitis: Resolved - hepatitis panel; negative - trend Physical debility -PT OT eval. PT recommending inpatient today. Patient agreeable for rehab. OT eval ordered FEN: No IVF, BMP Q, Regular Code: Full, discussed on admit PPx: HsQ Dispo: Continue inpatient for persistent severe ROSHAN, ongoing poor oral intake, r equiring IV fluids. PT/OT consulted. I spent a total of 35 minutes in pt care today with an estimated 20 minutes spen t reviewing course to date, including chart review of vitals, labs, overnight ev ents, and coordinating care. Complexity of medical decision making is high because of the multi-system nature of disease process. Subjective No acute overnight events. Patient reports sleepy fatigued and tired this morni ng. P.o. intake remains poor. She does not like food options. She is agreeabl e for rehab placement. Reports abdominal discomfort and constipation. No fever or chills. No chest pain or palpitations. No shortness of breath or c ough. No nausea, vomiting, diarrhea,. No rashes. Medications Scheduled Meds:amitriptyline/gabapentin/emu oil(#) 4/4/10 % topical cream, , Top ical, Q8H cefTRIAXone (ROCEPHIN) IVP 1 g, 1 g, Intravenous, Q24H* folic acid (FOLVITE) tablet 1 mg, 1 mg, Oral, QDAY heparin (porcine) PF syringe 5,000 Units, 5,000 Units, Subcutaneous, Q8H* polyethylene glycol 3350 (MIRALAX) packet 17 g, 1 packet, Oral, QDAY senna (SENOKOT) tablet 2 tablet, 2 tablet, Oral, QHS Continuous Infusions: PRN and Respiratory Meds:bisacodyL QDAY PRN, calcium carbonate Q6H PRN, hydrALAZ INE Q6H PRN, HYDROcodone/acetaminophen Q6H PRN, simethicone Q6H PRN Objective: Vital Signs: Last Filed Vital Signs: 24 Fernanda r Range BP: 129/113 (09/23 1312) Temp: 37.1 C (98.8 F) (09/23 0800) Pulse: 70 (09/23 1308) Respirations: 19 PER MINUTE (09/23 0800) SpO2: 94 % (09/23 1312) SpO2 Pulse: 89 (09/23 1312) BP: (128-157)/(58-133) Temp: [37.1 C (98.7 F)-37.3 C (99.2 F)] Pulse: [68-75] Respirations: [17 PER MINUTE-24 PER MINUTE] SpO2: [94 %-96 %] Intensity Pain Scale (Self Report): 5 (09/24/19 0800) Vitals: 09/17/19 2350 09/19/19 1411 Weight: 77 kg (169 lb 12.1 oz) 76.7 kg (169 lb) Intake/Output Summary: (Last 24 hours) Intake/Output Summary (Last 24 hours) at 09/24/2019 1516 Last data filed at 09/24/2019 1300 Gross per 24 hour Intake 350 ml Output Net 350 ml Stool Occurrence: 0 Physical Exam General: Fatigued, sleepy. Conjunctival pallor Neck: Supple, nontender, no JVD or lymphadenopathy Resp: Clear to auscultation bilaterally CV: Regular rate and rhythm, S1, S2 normal, no murmur. No peripheral edema. GI: Soft, non-tender. Bowel sounds normal. Neuro: No focal deficits, CN 2-12 grossly intact bilaterally, oriented x3 Psych: normal affect and mood, remote and recent memory intact Lab Review Pertinent labs reviewed Point of Care Testing (Last 24 hours) Glucose: 89 (09/24/19 0630) Radiology and other Diagnostics Review: Pertinent radiology reviewed. Carolin Paula MD Pager [phone] * Noble Perez MD - 09/24/2019 1:34 PM CDT Renal Progress Note Name: Mary Tim Today's Date: 09/24/2019 Admission Date: 09/17/2019 LOS: 6 days Assessment and Plan Principal Problem: Acute renal failure (ARF) (HCC) Active Problems: Hyperkalemia High anion gap metabolic acidosis UTI (urinary tract infection) Mary Tim is a 69 y.o. female 1. ROSHAN - Slowly recovering; clinically consistent with resolving ATN - Urine sediment loaded with pus and muddy brown acute renal failure casts. - Doubt the hydronephrosis on renal sonogram is significant 2. Metabolic Acidosis - Mixed gap/nongap, probably from renal failure - Appropriately receiving IV isotonic sodium bicarbonate to at least partially c orrect the pretty severe acidosis and volume expand. - Has resolved 3. Hyperkalemia - Likely due to ROSHAN - Has normalized after volume expansion and shifting. 4. Pyuria - Urine sediment exam suggested UTI - Growing Enterobacter and E coli - Now on Rocephin Recommend: - Match I/O going forward - Since oral intake is poor would start to supplement her intake with one liter of Isotonic fluid daily for now. - Can liberalize to a regular diet since she really does not seem to be eating. - No acute indication for dialysis - Accurate I/O and daily weights - Avoid nephrotoxins Noble Perez MD Pager [phone] Subjective Mary Tim is a 69 y.o. female feeling better today. Poor po intake now. Doesn't like any of the food options. Medications Medications MEDSamitriptyline/gabapentin/emu oil(#), , Topical, Q8H cefTRIAXone (ROCEPHIN) IV, 1 g, Intravenous, Q24H* folic acid, 1 mg, Oral, QDAY heparin (porcine), 5,000 Units, Subcutaneous, Q8H* polyethylene glycol 3350, 1 packet, Oral, QDAY senna, 2 tablet, Oral, QHS IV MEDS Prn bisacodyL QDAY PRN, calcium carbonate Q6H PRN 1,000 mg at 09/19/19 2327, h ydrALAZINE Q6H PRN, HYDROcodone/acetaminophen Q6H PRN 1 tablet at 09/24/19 0917, simethicone Q6H PRN 80 mg at 09/24/19 0917 Physical Exam Vital Signs: Last Filed In 24 Hours Vital Signs: 24 Hour Range BP: 129/113 (09/23 1312) Temp: 37.1 C (98.8 F) (09/23 0800) Pulse: 70 (09/23 1308) Respirations: 19 PER MINUTE (09/23 0800) SpO2: 94 % (09/24 1311) SpO2 Pulse: 89 (09/24 1311) BP: (128-157)/(58-133) Temp: [37.1 C (98.7 F)-37.3 C (99.2 F)] Pulse: [68-75] Respirations: [17 PER MINUTE-24 PER MINUTE] SpO2: [94 %-96 %] Intensity Pain Scale (Self Report): 5 (09/24/19 0800) Intake/Output Summary (Last 24 hours) at 09/24/2019 1334 Last data filed at 09/24/2019 1300 Gross per 24 hour Intake 350 ml Output Net 350 ml Vitals: 09/17/19 2350 09/19/19 1411 Weight: 77 kg (169 lb 12.1 oz) 76.7 kg (169 lb) Gen: Alert and Oriented, No Acute Distress HEENT: Sclera normal; MMM CV: no JVD, S1 and S2 normal, no rubs, murmurs or gallops Pulm: Clear to Auscultation bilateral GI: BS+ x4, non-tender to palpation Neuro: Grossly normal, moving all extremities, speech intact Ext: no edema, clubbing or cyanosis Skin: no rash Labs: Recent Labs 09/22/19 0500 09/23/19 0537 09/24/19 0630 NA 135* 135* 134* K 3.8 3.9 4.0 CL 96* 97* 97* CO2 23 22 22 GAP 16* 16* 15* BUN 93* 89* 88* CR 5.82* 6.02* 5.93* GLU 85 87 89 CA 8.6 8.9 8.6 ALBUMIN 2.8* 3.0* 2.8* Recent Labs 09/22/19 0500 09/23/19 0537 09/24/19 0630 WBC 6.4 7.0 6.9 HGB 8.0* 8.3* 7.6* HCT 23.4* 23.7* 22.3* PLTCT 253 232 217 AST 16 18 16 ALT 16 14 14 ALKPHOS 119* 107 98 Estimated Creatinine Clearance: 9 mL/min (A) (based on SCr of 5.93 mg/dL (H)). Vitals: 09/17/19 2350 09/19/19 1411 Weight: 77 kg (169 lb 12.1 oz) 76.7 kg (169 lb) No results for input(s): PHART, PO2ART in the last 72 hours. Invalid input(s): PC02A * Nayeli Street, PT - 09/24/2019 10:27 AM CDT PHYSICAL THERAPY PROGRESS NOTE Name: Mary Tim : 1950 Age: [age] y.o. Admission Date: 09/17/2019 LOS: 6 days Mobility Patient Turn/Position: Self Progressive Mobility Level: Walk in room Distance Walked (feet): 20 ft Level of Assistance: Stand by assistance Assistive Device: Walker Time Tolerated: 11-30 minutes Subjective Significant hospital events: PMH: back pain, cervical fusion, lumbar fusion, chr onic pain, HTN. Reason for admission: Progressively worsening weakness and fatig ue. Patient was found to have acute renal failure with hyperkalemia and anion ga p metabolic acidosis. Mental / Cognitive Status: Alert;Cooperative;Follows Commands Pain: Patient has no complaint of pain Ambulation Assist: Independent Mobility in Community without Device Patient Owned Equipment: Single Point Cane;Roller Walker Home Situation: Lives Alone Type of Home: Mobile Home Entry Stairs: 3-5 Stairs;Rail on 1 Side In-Home Stairs: No Stairs Bed Mobility/Transfer Bed Mobility: Supine to Sit: Independent Transfer Type: Sit to Stand Transfer: Assistance Level: To/From;Bed;Standby Assist Transfer: Assistive Device: Roller Walker Other Transfer Type: Sit to Stand Other Transfer: Assistance Level: To/From;Toilet;Standby Assist Other Transfer: Assistive Device: Roller Walker Gait Gait Distance: 30 feet(1 seated rest break) Gait: Assistance Level: contact guard assist Gait: Assistive Device: Roller Walker Gait: Descriptors: Pace: Slow;Decreased foot clearance RLE;Decreased foot cleara nce LLE Assessment/Progress The patient did not do as well this date as in previous PT assessment, she was only able to tolerate being up for approximately 15 feet (1-2 minutes of activit y) before requesting to sit. She notes feeling short of breath but vitals stable with activity. Discussed my concerns with her in regards to going home alone, s he notes she does not have support that would be able to be with her consistentl y at discharge. She is hopeful that with a few days of increasing activity she w ill be able to discharge to home. Encouraged her to start thinking of other opti ons in case that is not the case including a short stay at facility or increasin g family support at discharge. AM-PAC 6 Clicks Basic Mobility Inpatient Turning from your back to your side while in a flat bed without using bed rails: None Moving from lying on your back to sitting on the side of a flatbed without using bedrails : A Little Moving to and from a bed to a chair (including a wheelchair): A Little Standing up from a chair using your arms (e.g. wheelchair, or bedside chair): A Little To walk in hospital room: A Little Climbing 3-5 steps with a railing: A Little Raw Score: 19 Standardized (T-scale) Score: 42.48 Basic Mobility CMS 0-100%: 36.99 CMS G Code Modifier for Basic Mobility: CJ Goals Goal Formulation: With Patient Time For Goal Achievement: 5 days, To, 7 days Patient Will Transfer Bed/Chair: Independently Patient Will Ambulate: Greater than 200 Feet, w/ No Device, Independently Patient Will Go Up / Down Stairs: 3-5 Stairs, Independently Plan Plan Frequency: 5 Days per Week Plan for progression: Continue to work on increasing activity PT Discharge Recommendations Recommendation: Currently patient requires inpatient level of care. However, typ [facility] progression for patient condition would anticipate home with assistance at time of discharge. Therapist: Nayeli Street, PT, DPT Date: 09/24/2019 * Magi Schmid RN - 09/23/2019 12:45 PM CDT Patient arrived to room # (316*) via wheelchair accompanied by RN. Patient trans ferred to the bed with assistance. Bedside safety checks completed. Initial linda ent assessment completed. Refer to flowsheet for details. Admission skin assessment completed with: ROLAND Leija Pressure injury present on arrival?: Yes 1. Head/Face/Neck: No 2. Trunk/Back: No 3. Upper Extremities: No 4. Lower Extremities: No 5. Pelvic/Coccyx: Yes 6. Assessed for device associated injury? Yes 7. Malnutrition Screening Tool (Nursing Nutrition Assessment) Completed? Yes See Doc Flowsheet for additional wound details. INTERVENTIONS: Unsure if wound on coccyx is from moisture breakdown or pressure; will consult w ound team. * Sandra Hung RN - 09/23/2019 12:20 PM CDT Report given to RN on HC3 @1200 * Carolin Paula MD - 09/23/2019 12:01 PM CDT General Progress Note Name: Mary Tim Today's Date: 09/23/2019 Admission Date: 09/17/2019 LOS: 5 days Assessment/Plan: Principal Problem: Acute renal failure (ARF) (HCC) Active Problems: Hyperkalemia High anion gap metabolic acidosis UTI (urinary tract infection) 69 y.o. female with PMHx of HTN and cervical (C3-C7) and lumbar (L3-L5) spinal f usions who presented for progressively worsening weakness and fatigue and was fo und to have acute renal failure with hyperkalemia and anion gap metabolic acidos is ROSHAN; slowly improving - likely ATN, Nephrology noted muddy brown casts and pyuria on microscopy - 7 at presentation, small improvement with IVF. Slight creatinine trended up t luiza 6.02 - Renal US unremarkable - UPr:Cr 0.9, - Renal consulted, discussed with Dr. Perez - accurate I&Os -Match I&O, will give another liter of half NS today. Encouraged p.o. fluid intake. - BMP QD UTI UA shows blood and pyuria - UCx with e. coli and enterobacter. 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 Recommending home FEN: No IVF, BMP Q, Regular Code: Full, discussed on admit PPx: HsQ Dispo: Continue inpatient for persistent severe ROSHAN. PT/OT consulted. I spent a total of 35 minutes in pt care today with an estimated 20 minutes spen t reviewing course to date, including chart review of vitals, labs, overnight ev ents, and coordinating care. Complexity of medical decision making is high because of the multi-system nature of disease process. Subjective No acute overnight events. Patient states she did not sleep well last night. P atient states her back was hurting last night. Heating pad helping her back karla n. She states she is trying to drink more fluid. Also reports some constipatio n. No bowel movement in 2 days. No nausea vomiting. No fever or chills. No chest pain or palpitations. No shortness of breath or c ough. No nausea, vomiting, diarrhea,. No rashes. Medications Scheduled Meds:amitriptyline/gabapentin/emu oil(#) 4/4/10 % topical cream, , Top ical, Q8H cefTRIAXone (ROCEPHIN) IVP 1 g, 1 g, Intravenous, Q24H* cyanocobalamin (RUBRAMIN) injection 1,000 mcg, 1,000 mcg, Intramuscular, QDAY folic acid (FOLVITE) tablet 1 mg, 1 mg, Oral, QDAY heparin (porcine) PF syringe 5,000 Units, 5,000 Units, Subcutaneous, Q8H* polyethylene glycol 3350 (MIRALAX) packet 17 g, 1 packet, Oral, QDAY senna (SENOKOT) tablet 2 tablet, 2 tablet, Oral, QHS SODIUM CHLORIDE 0.9 % IV SOLP (Cabinet Override), , , NOW Continuous Infusions: PRN and Respiratory Meds:bisacodyL QDAY PRN, calcium carbonate Q6H PRN, hydrALAZ INE Q6H PRN, HYDROcodone/acetaminophen Q6H PRN, simethicone Q6H PRN Objective: Vital Signs: Last Filed Vital Signs: 24 Fernanda r Range BP: 131/53 (09/22 0852) Temp: 36.8 C (98.3 F) (09/23 851) Pulse: 72 (09/23 851) Respirations: 18 PER MINUTE (09/23 851) SpO2: 92 % (09/23 851) BP: (131-151)/(53-64) Temp: [36.8 C (98.3 F)-37.2 C (99 F)] Pulse: [71-76] Respirations: [18 PER MINUTE-20 PER MINUTE] SpO2: [92 %-100 %] Intensity Pain Scale (Self Report): 5 (09/23/19 08) Vitals: 09/17/19 2350 09/19/19 1411 Weight: 77 kg (169 lb 12.1 oz) 76.7 kg (169 lb) Intake/Output Summary: (Last 24 hours) Intake/Output Summary (Last 24 hours) at 09/23/2019 1201 Last data filed at 09/23/2019 0812 Gross per 24 hour Intake 222 ml Output 600 ml Net -378 ml Stool Occurrence: 1 Physical Exam General: Alert, cooperative, no distress Neck: Supple, nontender, no JVD or lymphadenopathy Resp: Clear to auscultation bilaterally CV: Regular rate and rhythm, S1, S2 normal, no murmur. No peripheral edema. GI: Soft, non-tender. Bowel sounds normal. Neuro: No focal deficits, CN 2-12 grossly intact bilaterally, oriented x3 Psych: normal affect and mood, remote and recent memory intact Lab Review Pertinent labs reviewed Point of Care Testing (Last 24 hours) Glucose: 87 (09/23/19 0537) Radiology and other Diagnostics Review: Pertinent radiology reviewed. Carolin Paula MD Pager [phone] * Noble Perez MD - 09/23/2019 11:49 AM CDT Renal Progress Note Name: Mary Tim Today's Date: 09/23/2019 Admission Date: 09/17/2019 LOS: 5 days Assessment and Plan Principal Problem: Acute renal failure (ARF) (HCC) Active Problems: Hyperkalemia High anion gap metabolic acidosis UTI (urinary tract infection) Mary Tim is a 69 y.o. female 1. ROSHAN - Slowly recovering; clinically consistent with resolving ATN - Urine sediment loaded with pus and muddy brown acute renal failure casts. - Doubt the hydronephrosis on renal sonogram is significant 2. Metabolic Acidosis - Mixed gap/nongap, probably from renal failure - Appropriately receiving IV isotonic sodium bicarbonate to at least partially c orrect the pretty severe acidosis and volume expand. - Has resolved 3. Hyperkalemia - Likely due to ROSHAN - Has normalized after volume expansion and shifting. 4. Pyuria - Urine sediment exam suggested UTI - Growing Enterobacter and E coli - Now on Rocephin Recommend: - Match I/O going forward - Since oral intake is poor would start to supplement her intake with one liter of Isotonic fluid daily for now. - No acute indication for dialysis - Accurate I/O and daily weights - Avoid nephrotoxins Noble Perez MD Pager [phone] Subjective Mary Tim is a 69 y.o. female feeling better today. Says she is eating ok . Medications Medications MEDSamitriptyline/gabapentin/emu oil(#), , Topical, Q8H cefTRIAXone (ROCEPHIN) IV, 1 g, Intravenous, Q24H* cyanocobalamin, 1,000 mcg, Intramuscular, QDAY folic acid, 1 mg, Oral, QDAY heparin (porcine), 5,000 Units, Subcutaneous, Q8H* polyethylene glycol 3350, 1 packet, Oral, QDAY senna, 2 tablet, Oral, QHS sodium chloride 0.9% (NS), , , NOW IV MEDS Prn bisacodyL QDAY PRN, calcium carbonate Q6H PRN 1,000 mg at 09/19/19 2327, h ydrALAZINE Q6H PRN, HYDROcodone/acetaminophen Q6H PRN 1 tablet at 09/23/19 0616, simethicone Q6H PRN 80 mg at 09/22/19 1404 Physical Exam Vital Signs: Last Filed In 24 Hours Vital Signs: 24 Hour Range BP: 131/53 (09/23 851) Temp: 36.8 C (98.3 F) (09/23 851) Pulse: 72 (09/23 851) Respirations: 18 PER MINUTE (09/23 851) SpO2: 92 % (09/23 851) BP: (131-152)/(53-68) Temp: [36.5 C (97.7 F)-37.2 C (99 F)] Pulse: [71-76] Respirations: [18 PER MINUTE-20 PER MINUTE] SpO2: [92 %-100 %] Intensity Pain Scale (Self Report): 5 (09/23/19 0812) Intake/Output Summary (Last 24 hours) at 09/23/2019 1149 Last data filed at 09/23/2019 0812 Gross per 24 hour Intake 222 ml Output 600 ml Net -378 ml Vitals: 09/17/19234909/19/19 1411 Weight: 77 kg (169 lb 12.1 oz) 76.7 kg (169 lb) Gen: Alert and Oriented, No Acute Distress HEENT: Sclera normal; MMM CV: no JVD, S1 and S2 normal, no rubs, murmurs or gallops Pulm: Clear to Auscultation bilateral GI: BS+ x4, non-tender to palpation Neuro: Grossly normal, moving all extremities, speech intact Ext: no edema, clubbing or cyanosis Skin: no rash Labs: Recent Labs 09/21/19 0609/22/19 0500 09/23/19 0537 NA 139 135* 135* K 4.2 3.8 3.9 CL 97* 96* 97* CO2 26 23 22 GAP 16* 16* 16* BUN 92* 93* 89* CR 6.58* 5.82* 6.02* GLU 86 85 87 CA 9.0 8.6 8.9 ALBUMIN 3.0* 2.8* 3.0* Recent Labs 09/21/19 0609/22/19 0500 09/23/19 0537 WBC 6.3 6.4 7.0 HGB 8.7* 8.0* 8.3* HCT 25.7* 23.4* 23.7* PLTCT 272 253 232 AST 20 16 18 ALT 24 16 14 ALKPHOS 152* 119* 107 Estimated Creatinine Clearance: 8.8 mL/min (A) (based on SCr of 6.02 mg/dL (H)). Vitals: 09/17/190 09/19/19 1411 Weight: 77 kg (169 lb 12.1 oz) 76.7 kg (169 lb) No results for input(s): PHART, PO2ART in the last 72 hours. Invalid input(s): PC02A * Carolin Paula MD - 09/22/2019 12:24 PM CDT General Progress Note Name: Mary Tim Today's Date: 09/22/2019 Admission Date: 09/17/2019 LOS: 4 days Assessment/Plan: Principal Problem: Acute renal failure (ARF) (HCC) Active Problems: Hyperkalemia High anion gap metabolic acidosis UTI (urinary tract infection) 69 y.o. female with PMHx of HTN and cervical (C3-C7) and lumbar (L3-L5) spinal f usions who presented for progressively worsening weakness and fatigue and was fo und to have acute renal failure with hyperkalemia and anion gap metabolic acidos is ROSHAN; slowly improving - likely ATN, Nephrology noted muddy brown casts and pyuria on microscopy - 7 at presentation, small improvement with IVF - Renal US unremarkable - UPr:Cr 0.9, - Renal consulted, - accurate I&Os -Match I&O, - BMP QD UTI UA shows blood and pyuria - UCx with e. coli and enterobacter. 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 Recommending home FEN: No IVF, BMP Q, Regular Code: Full, discussed on admit PPx: HsQ Dispo: Continue inpatient for persistent severe ROSHAN. PT/OT consulted. I spent a total of 35 minutes in pt care today with an estimated 20 minutes spen t reviewing course to date, including chart review of vitals, labs, overnight ev ents, and coordinating care. Complexity of medical decision making is high because of the multi-system nature of disease process. Subjective No acute overnight events. Patient states she did not sleep well last night. P atient states her back was hurting last night. No fever or chills. No chest pain or palpitations. No shortness of breath or c ough. No nausea, vomiting, diarrhea, constipation. No rashes. Medications Scheduled Meds:amitriptyline/gabapentin/emu oil(#) 4/4/10 % topical cream, , Top ical, Q8H cefTRIAXone (ROCEPHIN) IVP 1 g, 1 g, Intravenous, Q24H* cyanocobalamin (RUBRAMIN) injection 1,000 mcg, 1,000 mcg, Intramuscular, QDAY folic acid (FOLVITE) tablet 1 mg, 1 mg, Oral, QDAY heparin (porcine) PF syringe 5,000 Units, 5,000 Units, Subcutaneous, Q8H* polyethylene glycol 3350 (MIRALAX) packet 17 g, 1 packet, Oral, QDAY senna (SENOKOT) tablet 2 tablet, 2 tablet, Oral, QHS Continuous Infusions: PRN and Respiratory Meds:calcium carbonate Q6H PRN, hydrALAZINE Q6H PRN, HYDROco done/acetaminophen Q6H PRN, simethicone Q6H PRN Objective: Vital Signs: Last Filed Vital Signs: 24 Fernanda r Range BP: 111/71 (09/22 819) Temp: 36.8 C (98.3 F) (09/22 819) Pulse: 72 (09/22 819) Respirations: 20 PER MINUTE (09/22 819) SpO2: 95 % (09/22 819) BP: (111-165)/(63-77) Temp: [36.6 C (97.9 F)-36.9 C (98.5 F)] Pulse: [65-79] Respirations: [18 PER MINUTE-20 PER MINUTE] SpO2: [95 %-99 %] Intensity Pain Scale (Self Report): 5 (09/22/19 0600) Vitals: 09/17/19 2350 09/19/19 1411 Weight: 77 kg (169 lb 12.1 oz) 76.7 kg (169 lb) Intake/Output Summary: (Last 24 hours) Intake/Output Summary (Last 24 hours) at 09/22/2019 1224 Last data filed at 09/22/2019 0900 Gross per 24 hour Intake 1136 ml Output 550 ml Net 586 ml Stool Occurrence: 0 Physical Exam General: Alert, cooperative, no distress Neck: Supple, nontender, no JVD or lymphadenopathy Resp: Clear to auscultation bilaterally CV: Regular rate and rhythm, S1, S2 normal, no murmur. No peripheral edema. GI: Soft, non-tender. Bowel sounds normal. Neuro: No focal deficits, CN 2-12 grossly intact bilaterally, oriented x3 Psych: normal affect and mood, remote and recent memory intact Lab Review Pertinent labs reviewed Point of Care Testing (Last 24 hours) Glucose: 85 (09/22/19 0500) Radiology and other Diagnostics Review: Pertinent radiology reviewed. Carolin Paula MD Pager [phone] * Carolin Paula MD - 09/21/2019 11:17 AM CDT General Progress Note Name: Mary Tim Today's Date: 09/21/2019 Admission Date: 09/17/2019 LOS: 3 days Assessment/Plan: Principal Problem: Acute renal failure (ARF) (HCC) Active Problems: Hyperkalemia High anion gap metabolic acidosis UTI (urinary tract infection) 69 y.o. female with PMHx of HTN and cervical (C3-C7) and lumbar (L3-L5) spinal f usions who presented for progressively worsening weakness and fatigue and was fo und to have acute renal failure with hyperkalemia and anion gap metabolic acidos is ROSHAN - likely ATN, Nephrology noted muddy brown casts and pyuria on microscopy - 7 at presentation, small improvement with IVF - Renal US unremarkable - UPr:Cr 0.9, - Renal consulted, - accurate I&Os -Match I&O, patient is negative 850 mL in last 24 hours. Encouraged oral fluid intake. 1 L half NS at 100/h ordered - BMP QD UTI UA shows blood and pyuria - UCx with e. coli and enterobacter. 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 Recommending home FEN: No IVF, BMP Q, Regular Code: Full, discussed on admit PPx: HsQ Dispo: Continue inpatient for persistent severe ROSHAN. PT/OT consulted. I spent a total of 35 minutes in pt care today with an estimated 20 minutes spen t reviewing course to date, including chart review of vitals, labs, overnight ev ents, and coordinating care. Complexity of medical decision making is high because of the multi-system nature of disease process. Subjective No acute overnight events. Patient states she did not sleep well last night. H er bowels were working last night and she felt better after she had a bowel move ment. She also reports some low back pain which is chronic. Reports good urine output. No fever or chills. No chest pain or palpitations. No shortness of breath or c ough. No nausea, vomiting, diarrhea, constipation. No rashes. Medications Scheduled Meds:amitriptyline/gabapentin/emu oil(#) 4/4/10 % topical cream, , Top ical, Q8H cefTRIAXone (ROCEPHIN) IVP 1 g, 1 g, Intravenous, Q24H* cyanocobalamin (RUBRAMIN) injection 1,000 mcg, 1,000 mcg, Intramuscular, QDAY folic acid (FOLVITE) tablet 1 mg, 1 mg, Oral, QDAY heparin (porcine) PF syringe 5,000 Units, 5,000 Units, Subcutaneous, Q8H* polyethylene glycol 3350 (MIRALAX) packet 17 g, 1 packet, Oral, QDAY senna (SENOKOT) tablet 2 tablet, 2 tablet, Oral, QHS Continuous Infusions: PRN and Respiratory Meds:calcium carbonate Q6H PRN, hydrALAZINE Q6H PRN, HYDROco done/acetaminophen Q6H PRN, simethicone Q6H PRN Objective: Vital Signs: Last Filed Vital Signs: 24 Fernanda r Range BP: 138/65 (09/20 833) Temp: 36.8 C (98.2 F) (09/20 833) Pulse: 68 (09/20 833) Respirations: 18 PER MINUTE (09/20 833) SpO2: 95 % (09/20 833) BP: (130-155)/(65-78) Temp: [36.6 C (97.9 F)-37.4 C (99.4 F)] Pulse: [60-75] Respirations: [16 PER MINUTE-18 PER MINUTE] SpO2: [95 %-99 %] Intensity Pain Scale (Self Report): 8 (09/21/19 0315) Vitals: 09/17/19 2350 09/19/19 1411 Weight: 77 kg (169 lb 12.1 oz) 76.7 kg (169 lb) Intake/Output Summary: (Last 24 hours) Intake/Output Summary (Last 24 hours) at 09/21/2019 1117 Last data filed at 09/21/2019 0834 Gross per 24 hour Intake 596 ml Output 1250 ml Net -654 ml Stool Occurrence: 1 Physical Exam General: Alert, cooperative, no distress Neck: Supple, nontender, no JVD or lymphadenopathy Resp: Clear to auscultation bilaterally CV: Regular rate and rhythm, S1, S2 normal, no murmur. No peripheral edema. GI: Soft, non-tender. Bowel sounds normal. Neuro: No focal deficits, CN 2-12 grossly intact bilaterally, oriented x3 Psych: normal affect and mood, remote and recent memory intact Lab Review Pertinent labs reviewed Point of Care Testing (Last 24 hours) Glucose: 86 (09/21/19 0629) Radiology and other Diagnostics Review: Pertinent radiology reviewed. Carolin Paula MD Pager [phone] * Noble Perez MD - 09/20/2019 2:13 PM CDT Renal Progress Note Name: Mary Tim Today's Date: 09/20/2019 Admission Date: 09/17/2019 LOS: 2 days Assessment and Plan Principal Problem: Acute renal failure (ARF) (HCC) Active Problems: Hyperkalemia High anion gap metabolic acidosis Mary Tim is a 69 y.o. female 1. ROSHAN - Slowly recovering; clinically consistent with resolving ATN - Urine sediment loaded with pus and muddy brown acute renal failure casts. - Doubt the hydronephrosis on renal sonogram is significant 2. Metabolic Acidosis - Mixed gap/nongap, probably from renal failure - Appropriately receiving IV isotonic sodium bicarbonate to at least partially c orrect the pretty severe acidosis and volume expand. - Has resolved 3. Hyperkalemia - Likely due to ROSHAN - Has normalized after volume expansion and shifting. 4. Pyuria - Urine sediment exam suggested UTI - Growing Enterobacter and E coli - Now on Rocephin Recommend: - Match I/O going forward - No acute indication for dialysis - Accurate I/O and daily weights - Avoid nephrotoxins - Can D/C zambrano - Would follow renal recovery over the weekend and possible D/C early next week if eating well and able to care for herself. Question whether she might need pl acement for PT/OT. Noble Perez MD Pager [phone] Subjective Mary Tim is a 69 y.o. female feeling better today. Says she is eating [place] . Medications Medications MEDSamitriptyline/gabapentin/emu oil(#), , Topical, Q8H cefTRIAXone (ROCEPHIN) IV, 1 g, Intravenous, Q24H* cyanocobalamin, 1,000 mcg, Intramuscular, QDAY folic acid, 1 mg, Oral, QDAY heparin (porcine), 5,000 Units, Subcutaneous, Q8H* polyethylene glycol 3350, 1 packet, Oral, QDAY senna, 2 tablet, Oral, QHS IV MEDS Prn calcium carbonate Q6H PRN 1,000 mg at 09/19/19 2327, hydrALAZINE Q6H PRN, HYDROcodone/acetaminophen Q6H PRN 1 tablet at 09/20/19 0852, simethicone Q6H PRN 80 mg at 09/20/19 0852 Physical Exam Vital Signs: Last Filed In 24 Hours Vital Signs: 24 Hour Range BP: 130/65 (09/19 1218) Temp: 36.6 C (97.9 F) (09/19 1218) Pulse: 75 (09/19 1218) Respirations: 16 PER MINUTE (09/19 1218) SpO2: 99 % (09/19 1218) BP: (130-155)/(62-69) Temp: [36.5 C (97.7 F)-37.1 C (98.7 F)] Pulse: [66-88] Respirations: [16 PER MINUTE-20 PER MINUTE] SpO2: [95 %-99 %] Intensity Pain Scale (Self Report): 8 (09/20/19 0850) Intake/Output Summary (Last 24 hours) at 09/20/2019 1413 Last data filed at 09/20/2019 1155 Gross per 24 hour Intake 1480 ml Output 1500 ml Net -20 ml Vitals: 09/17/19 2350 09/19/19 1411 Weight: 77 kg (169 lb 12.1 oz) 76.7 kg (169 lb) Gen: Alert and Oriented, No Acute Distress HEENT: Sclera normal; MMM CV: no JVD, S1 and S2 normal, no rubs, murmurs or gallops Pulm: Clear to Auscultation bilateral GI: BS+ x4, non-tender to palpation Neuro: Grossly normal, moving all extremities, speech intact Ext: no edema, clubbing or cyanosis Skin: no rash Labs: Recent Labs 09/18/19 0130 09/18/19 0702 09/18/19 0954 09/18/19 1730 09/18/19 1735 09/19/19 0721 09/19/19 1623 09/20/19 0446 NA 141 140 -- 139 138 141 139 139 K 5.6* 4.8 -- 4.2 4.2 3.8 3.8 3.8 CL 109 110 -- 106 106 102 99 97* CO2 13* 10* -- 16* 16* 19* 22 23 GAP 19* 20* -- 17* 16* 20* 18* 19* BUN 109* 100* -- 103* 100* 97* 93* 91* CR 7.32* 6.99* -- 6.59* 6.71* 6.49* 6.28* 6.21* GLU 80 77 -- 112* 114* 104* 103* 92 CA 10.6 9.5 -- 9.3 9.2 9.0 8.9 8.8 ALBUMIN -- 3.3* -- -- -- 2.9* -- 2.8* MG 2.3 -- -- -- -- -- -- -- PO4 6.5* -- -- -- -- -- -- -- TSH -- -- 1.67 -- -- -- -- -- Recent Labs 09/18/19 0702 09/18/19 0954 09/19/19 0721 09/20/19 0446 WBC 7.4 -- 6.8 6.1 HGB 8.8* -- 8.3* 8.4* HCT 25.9* -- 23.8* 24.0* PLTCT 315 -- 289 263 INR -- 1.4* -- -- PTT -- 27.5 -- -- AST 11 -- 17 47* ALT 11 -- 9 33 ALKPHOS 105 -- 95 179* Estimated Creatinine Clearance: 8.6 mL/min (A) (based on SCr of 6.21 mg/dL (H)). Vitals: 09/17/19 2350 09/19/19 1411 Weight: 77 kg (169 lb 12.1 oz) 76.7 kg (169 lb) No results for input(s): PHART, PO2ART in the last 72 hours. Invalid input(s): PC02A * Yovana Falcon, DO - 09/20/2019 5:58 AM CDT General Progress Note Name: Mary Tim Today's Date: 09/20/2019 Admission Date: 09/17/2019 LOS: 2 days Assessment/Plan: Principal Problem: Acute renal failure (ARF) (HCC) Active Problems: Hyperkalemia High anion gap metabolic acidosis 69 y.o. female with PMHx of HTN and cervical (C3-C7) and lumbar (L3-L5) spinal f usions who presented for progressively worsening weakness and fatigue and was fo und to have acute renal failure with hyperkalemia and anion gap metabolic acidos is ROSHAN - likely ATN, Nephrology noted muddy brown casts and pyuria on microscopy - 7 at presentation, small improvement with IVF - Renal US unremarkable - UPr:Cr 0.9, UA without signs of infection. - Renal consulted, UCx with e. coli and enterobacter. Will start rocephin and f ollow up susceptibilities. 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 PT/OT consulted. Med complexity high. Discussed with Dr. Perez. Subjective Sitting up in chair. Feels weak. No other complaints. No fever or chills. No chest pain or palpitations. No shortness of breath or c ough. No nausea, vomiting, diarrhea, constipation. No rashes. Medications Scheduled Meds:amitriptyline/gabapentin/emu oil(#) 4/4/10 % topical cream, , Top ical, Q8H cyanocobalamin (RUBRAMIN) injection 1,000 mcg, 1,000 mcg, Intramuscular, QDAY folic acid (FOLVITE) tablet 1 mg, 1 mg, Oral, QDAY heparin (porcine) PF syringe 5,000 Units, 5,000 Units, Subcutaneous, Q8H* Continuous Infusions: dextrose 5% (D5W) with sodium bicarbonate 150 mEq 1,150 mL IV infusion Stopp ed (09/20/19 0200) PRN and Respiratory Meds:calcium carbonate Q6H PRN, hydrALAZINE Q6H PRN, HYDROco done/acetaminophen Q6H PRN, simethicone Q6H PRN Objective: Vital Signs: Last Filed Vital Signs: 24 Fernanda r Range BP: 143/62 (09/19 453) Temp: 36.5 C (97.7 F) (09/19 453) Pulse: 66 (09/19 453) Respirations: 20 PER MINUTE (09/19 453) SpO2: 96 % (09/19 453) Height: 162.6 cm (64") (09/18 1411) BP: (143-155)/(57-75) Temp: [36.5 C (97.7 F)-36.8 C (98.3 F)] Pulse: [66-88] Respirations: [16 PER MINUTE-20 PER MINUTE] SpO2: [96 %-98 %] Intensity Pain Scale (Self Report): 5 (09/20/19 0416) Vitals: 09/17/19 2350 09/19/19 1411 Weight: 77 kg (169 lb 12.1 oz) 76.7 kg (169 lb) Intake/Output Summary: (Last 24 hours) Intake/Output Summary (Last 24 hours) at 09/20/2019 0558 Last data filed at 09/20/2019 0500 Gross per 24 hour Intake 2200 ml Output 1100 ml Net 1100 ml Stool Occurrence: 0 Physical Exam General: Alert, cooperative, no distress Neck: Supple, nontender, no JVD or lymphadenopathy Resp: Clear to auscultation bilaterally CV: Regular rate and rhythm, S1, S2 normal, no murmur. No peripheral edema. GI: Soft, non-tender. Bowel sounds normal. Neuro: No focal deficits, CN 2-12 grossly intact bilaterally, oriented x3 Psych: normal affect and mood, remote and recent memory intact Lab Review Pertinent labs reviewed Point of Care Testing (Last 24 hours) Glucose: 92 (09/20/19 0446) Radiology and other Diagnostics Review: Pertinent radiology reviewed. Yovana Falcon DO Pager [phone] * Noble Perez MD - 09/19/2019 10:43 AM CDT Renal Progress Note Name: Mary Tim Today's Date: 09/19/2019 Admission Date: 09/17/2019 LOS: 1 day Assessment and Plan Principal Problem: Acute renal failure (ARF) (HCC) Active Problems: Hyperkalemia High anion gap metabolic acidosis Mary Tim is a 69 y.o. female 1. ROSHAN - Slowly recovering; clinically consistent with resolving ATN - Urine sediment loaded with pus and muddy brown acute renal failure casts. - Doubt the hydronephrosis on renal sonogram is significant 2. Metabolic Acidosis - Mixed gap/nongap, probably from renal failure - Appropriately receiving IV isotonic sodium bicarbonate to at least partially c orrect the pretty severe acidosis and volume expand. - Much improved today 3. Hyperkalemia - Likely due to ROSHAN - Has normalized after volume expansion and shifting. 4. Pyuria - Urine sediment exam suggests UTI Recommend: - Can finish current bag of isotonic bicarbonate and D/C - Match I/O going forward - Might need supplemental oral bicarbonate but follow for now. - No acute indication for dialysis - Accurate I/O and daily weights - Avoid nephrotoxins - Will send a urine culture Noble Perez MD Pager [phone] Subjective Mary Tim is a 69 y.o. female feeling better today. Says she is eating ok . Medications Medications MEDSamitriptyline/gabapentin/emu oil(#), , Topical, Q8H cyanocobalamin, 1,000 mcg, Intramuscular, QDAY folic acid, 1 mg, Oral, QDAY heparin (porcine), 5,000 Units, Subcutaneous, Q8H* IV MEDS dextrose 5% (D5W) with sodium bicarbonate 150 mEq 1,150 mL IV infusion 50 mL /hr at 09/19/19 1035 Prn calcium carbonate Q6H PRN 1,000 mg at 09/18/19 2159, hydrALAZINE Q6H PRN, HYDROcodone/acetaminophen Q6H PRN 1 tablet at 09/19/19 0906 Physical Exam Vital Signs: Last Filed In 24 Hours Vital Signs: 24 Hour Range BP: 145/75 (09/19 743) Temp: 36.6 C (97.9 F) (09/19 743) Pulse: 73 (09/19 743) Respirations: 16 PER MINUTE (09/19 743) SpO2: 97 % (09/19 743) BP: (126-159)/(54-75) Temp: [36.5 C (97.7 F)-37 C (98.6 F)] Pulse: [72-86] Respirations: [16 PER MINUTE-20 PER MINUTE] SpO2: [97 %-98 %] Intensity Pain Scale (Self Report): 7 (09/18/19 2040) Intake/Output Summary (Last 24 hours) at 09/19/2019 1044 Last data filed at 09/19/2019 0700 Gross per 24 hour Intake 2900 ml Output 625 ml Net 2275 ml Vitals: 09/17/19 2350 Weight: 77 kg (169 lb 12.1 oz) Gen: Alert and Oriented, No Acute Distress HEENT: Sclera normal; MMM CV: no JVD, S1 and S2 normal, no rubs, murmurs or gallops Pulm: Clear to Auscultation bilateral GI: BS+ x4, non-tender to palpation Neuro: Grossly normal, moving all extremities, speech intact Ext: no edema, clubbing or cyanosis Skin: no rash Labs: Recent Labs 09/18/19 0130 09/18/19 0702 09/18/19 0954 09/18/19 1730 09/18/19 1735 09/19/19 0721 NA 141 140 -- 139 138 141 K 5.6* 4.8 -- 4.2 4.2 3.8 CL 109 110 -- 106 106 102 CO2 13* 10* -- 16* 16* 19* GAP 19* 20* -- 17* 16* 20* BUN 109* 100* -- 103* 100* 97* CR 7.32* 6.99* -- 6.59* 6.71* 6.49* GLU 80 77 -- 112* 114* 104* CA 10.6 9.5 -- 9.3 9.2 9.0 ALBUMIN -- 3.3* -- -- -- 2.9* MG 2.3 -- -- -- -- -- PO4 6.5* -- -- -- -- -- TSH -- -- 1.67 -- -- -- Recent Labs 09/18/19 0702 09/18/19 0954 09/19/19 0721 WBC 7.4 -- 6.8 HGB 8.8* -- 8.3* HCT 25.9* -- 23.8* PLTCT 315 -- 289 INR -- 1.4* -- PTT -- 27.5 -- AST 11 -- 17 ALT 11 -- 9 ALKPHOS 105 -- 95 Estimated Creatinine Clearance: 8.2 mL/min (A) (based on SCr of 6.49 mg/dL (H)). Vitals: 09/17/19 2350 Weight: 77 kg (169 lb 12.1 oz) No results for input(s): PHART, PO2ART in the last 72 hours. Invalid input(s): PC02A * Mckinley Rosen, PT - 09/19/2019 10:30 AM CDT PHYSICAL THERAPY ASSESSMENT Name: Mary Tim : 1950 Age: [age] y.o. Admission Date: 09/17/2019 LOS: 1 day Follow up visit is in italics. Subjective PMH: back pain, cervical fusion, lumbar fusion, chronic pain, HTN. Reason for admission: Progressively worsening weakness and fatigue. Patient was found to have acute renal failure with hyperkalemia and anion gap metabolic acid osis. Mental / Cognitive Status: Alert;Cooperative;Follows Commands Pain: Patient has no complaint of pain Ambulation Assist: Independent Mobility in Community without Device Patient Owned Equipment: Single Point Cane;Roller Walker(shower chair) Home Situation: Lives Alone Type of Home: Mobile Home Entry Stairs: 3-5 Stairs;Rail on 1 Side In-Home Stairs: No Stairs ROM Position Assessed: Seated Method: Active LE ROM: Bilateral;WFL Strength Position Assessed: Seated Overall Strength: Generalized Weakness Bed Mobility & Transfer Rolling: Independent Supine to Sit: Independent Transfer Type: Sit to/from Stand Transfer: Assistance Level: Bed;To;Bed Side Chair;Minimal Assist Transfer: Assistive Device: Hand Hold Assist Transfers: Type Of Assistance: Verbal Cues;For Balance Balance Dynamic Sitting Balance;Independent Dynamic Standing Balance;Minimal Assist Assessment was stopped at this point to allow Medical Team to round. Gait Walking without a walker required minimal assist via handhold. Walking with a walker requires SBA. Pace is slow and posture is flexed. Patient is able to walk approximately 100 feet at a time before fatiguing. Education Persons Educated: Patient Patient Barriers To Learning: None Noted Teaching Methods: Verbal Instruction Patient Response: Verbalized Understanding Topics: Plan/Goals of PT Interventions Assessment Mobility is limited from generalized weakness stemming from period of inactivity during her illness. AM-PAC 6 Clicks Basic Mobility Inpatient Turning from your back to your side while in a flat bed without using bed rails: None Moving from lying on your back to sitting on the side of a flatbed without using bedrails : A Little Moving to and from a bed to a chair (including a wheelchair): A Little Standing up from a chair using your arms (e.g. wheelchair, or bedside chair): A Little To walk in hospital room: A Little Climbing 3-5 steps with a railing: A Little Raw Score: 19 Standardized (T-scale) Score: 42.48 Basic Mobility CMS 0-100%: 36.99 [facility] G Code Modifier for Basic Mobility: CJ Goals Formulation: With Patient Time For Goal Achievement: 5 days, To, 7 days Patient Will Transfer Bed/Chair: Independently Patient Will Ambulate: Greater than 200 Feet, w/ No Device, Independently Patient Will Go Up / Down Stairs: 3-5 Stairs, Independently Plan Treatment Interventions: Mobility Training;Strengthening;Balance Activities Plan Frequency: 2 Days per Week Wean from walker and practice stairs. PT Discharge Recommendations Home with no therapy follow up. Patient already owns necessary equipment. Therapist Mckinley Rosen PT Date 09/19/2019 * Yovana Falcon, DO - 09/19/2019 5:54 AM CDT General Progress Note Name: Mary Tim Today's Date: 09/19/2019 Admission Date: 09/17/2019 LOS: 1 day Assessment/Plan: Principal Problem: Acute renal failure (ARF) (HCC) Active Problems: Hyperkalemia High anion gap metabolic acidosis 69 y.o. female with PMHx of HTN and cervical (C3-C7) and lumbar (L3-L5) spinal f usions who presented for progressively worsening weakness and fatigue and was fo und to have acute renal failure with hyperkalemia and anion gap metabolic acidos is ROSHAN - likely pre-renal +/- due to ACEi and NSAID use vs ATN - 7 at presentation, small improvement with IVF - Renal US unremarkable - UPr:Cr 0.9, UA without signs of infection - Renal consulted, UCx ordered - Continue Zambrano for accurate I&Os, UOP 625 in last 24hr - BMP BID Hyperkalemia, resolved - aggressively treated prior to transfer - continue to monitor AGMA, stable - no signs of infection, likely due to renal failure - D5 150meq bicarb, reduce rate to 50/hr - f/u UCx HTN - hold CECE, HCTZ 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 Med complexity high. Discussed with Dr. Perez. Subjective Patient reports pain in right hip, controlled with topical cream and hydrocodone . No fever or chills. No chest pain or palpitations. No shortness of breath or c ough. No nausea, vomiting, diarrhea, constipation. No rashes. Medications Scheduled Meds:amitriptyline/gabapentin/emu oil(#) 4/4/10 % topical cream, , Top ical, Q8H cyanocobalamin (RUBRAMIN) injection 1,000 mcg, 1,000 mcg, Intramuscular, QDAY folic acid (FOLVITE) tablet 1 mg, 1 mg, Oral, QDAY heparin (porcine) PF syringe 5,000 Units, 5,000 Units, Subcutaneous, Q8H* Continuous Infusions: dextrose 5% (D5W) with sodium bicarbonate 150 mEq 1,150 mL IV infusion 100 m L/hr at 09/18/199 PRN and Respiratory Meds:calcium carbonate Q6H PRN, hydrALAZINE Q6H PRN, HYDROco done/acetaminophen Q6H PRN Objective: Vital Signs: Last Filed Vital Signs: 24 Fernanda r Range BP: 141/54 (09/18 430) Temp: 37 C (98.6 F) (09/18 430) Pulse: 74 (09/18 430) Respirations: 16 PER MINUTE (09/18 430) SpO2: 97 % (09/18 430) BP: (126-159)/(54-70) Temp: [36.5 C (97.7 F)-37 C (98.6 F)] Pulse: [72-101] Respirations: [16 PER MINUTE-20 PER MINUTE] SpO2: [97 %-98 %] Intensity Pain Scale (Self Report): 7 (09/18/192039) Vitals: 09/17/19 2350 Weight: 77 kg (169 lb 12.1 oz) Intake/Output Summary: (Last 24 hours) Intake/Output Summary (Last 24 hours) at 09/19/2019 0554 Last data filed at 09/19/2019 0400 Gross per 24 hour Intake 500 ml Output 625 ml Net -125 ml Physical Exam General: Alert, cooperative, no distress, appears stated age Neck: Supple, nontender, no JVD or lymphadenopathy Resp: Clear to auscultation bilaterally CV: Regular rate and rhythm, S1, S2 normal, no murmur. No peripheral edema. GI: Soft, non-tender. Bowel sounds normal. Neuro: No focal deficits, CN 2-12 grossly intact bilaterally, oriented x3 Psych: normal affect and mood, remote and recent memory intact Lab Review Pertinent labs reviewed Point of Care Testing (Last 24 hours) Glucose: (!) 114 (09/18/19 1735) Radiology and other Diagnostics Review: Pertinent radiology reviewed. Yovana Falcon DO Pager [phone] * Carol Anderson RN - 09/18/2019 3:37 AM CDT Patient arrived to room # (1510 via cart accompanied by transport. Patient trans ferred to the kept on cart due to room dirty with assistance. Bedside safety kavon cks completed. Initial patient assessment completed. Refer to flowsheet for deta ils. Admission skin assessment completed with: Jennifer WATKINS Pressure injury present on arrival?: No 1. Head/Face/Neck: No 2. Trunk/Back: No 3. Upper Extremities: No 4. Lower Extremities: No 5. Pelvic/Coccyx: No 6. Assessed for device associated injury? No 7. Malnutrition Screening Tool (Nursing Nutrition Assessment) Completed? Yes See Doc Flowsheet for additional wound details. Scab and redness which is chandler able in her coccyx. INTERVENTIONS: * Carol Anderson RN - 09/18/2019 12:10 AM CDT Pt arrived to the unit at 2350 via cart accompanied by EMS, Room still dirty, p t transferred to cart. NAC/Bed placement aware of pt in the hallway. Paged Fernanda sekeeping and just arrived here to clean the room. AOD was paged. Pt alert/loy ented. documented in this encounter H&P Notes * Madeleine Choe, MSN,CLAMSHELL OPERATOR - 09/30/2019 10:24 AM CDT Pre Procedure History and Physical/Sedation Plan Procedure Date: 09/30/2019 Planned Procedure(s): [place] kidney biopsy Indication for exam: Nephritis Chief Complaint: Nephritis Previous Anesthetic/Sedation History: Denies adverse events Allergies: Mobic [meloxicam] Medications: Scheduled Meds:amitriptyline/gabapentin/emu oil(#) 4/4/10 % topical cream, , Top ical, Q8H [MAY Hold] amLODIPine (NORVASC) tablet 10 mg, 10 mg, Oral, QDAY [MAY Hold] cyanocobalamin (VITAMIN B-12) tablet 1,000 mcg, 1,000 mcg, Oral, QDAY [MAY Hold] folic acid (FOLVITE) tablet 1 mg, 1 mg, Oral, QDAY [MAY Hold] heparin (porcine) PF syringe 5,000 Units, 5,000 Units, Subcutaneous, Q8H* midazolam (VERSED) injection 1 mg, 1 mg, Intravenous, ONCE [MAY Hold] polyethylene glycol 3350 (MIRALAX) packet 17 g, 1 packet, Oral, QDAY [MAY Hold] senna (SENOKOT) tablet 2 tablet, 2 tablet, Oral, QHS [MAY Hold] sodium bicarbonate tablet 650 mg, 650 mg, Oral, BID sodium chloride 0.9 % infusion, 1,000 mL, Intravenous, ONCE Continuous Infusions: PRN and Respiratory Meds:[MAY Hold] bisacodyL QDAY PRN, [MAY Hold] calcium carbo vishal Q6H PRN, flumazeniL PRN, hydrALAZINE Q6H PRN, [MAY Hold] HYDROcodone/acetam inophen Q6H PRN, labetalol (NORMODYNE; TRANDATE) injection Q6H PRN, [MAY Hold] m elatonin QHS PRN, naloxone PRN, [MAY Hold] simethicone Q6H PRN Vital Signs: Last Filed Vital Signs: 24 Hour Range BP: 128/67 (09/29 1015) Temp: 36.7 C (98 F) (09/29 1015) Pulse: 92 (09/29 1015) Respirations: 26 PER MINUTE (09/29 1015) SpO2: 95 % (09/29 1015) SpO2 Pulse: 92 (09/29 1015) BP: (128-157)/(60-71) Temp: [36.4 C (97.6 F)-36.9 C (98.5 F)] Pulse: [74-100] Respirations: [17 PER MINUTE-26 PER MINUTE] SpO2: [93 %-97 %] Pre-procedure anxiolysis plan: Midazolam Sedation/Medication Plan: Fentanyl and Midazolam Personal history of sedation complications: Denies adverse event. Family history of sedation complications: Denies adverse event. Medications for Reversal: Naloxone and Flumazenil Discussion/Reviews: Physician has discussed risks and alternatives of this type of sedation and above planned procedures with patient NPO Status: Acceptable Airway: airway assessment performed Mallampati II (soft palate, uvula, fauces visible) Head and Neck: no abnormalities noted Mouth: no abnormalities noted Anesthesia Classification: ASA III (A patient with a severe systemic disease th at limits activity, but is not incapacitating) Status: N/A Lab/Radiology/Other Diagnostic Tests Labs: Relevant labs reviewed I have examined the patient, and there are no significant changes in their condi tion, from the previous H&P performed on 09/29/19. Jennifer Choe, MSN,CLAMSHELL OPERATOR Pager [phone] * Milo Gutierrez DO - 09/27/2019 4:29 PM CDT History and Physical Update Note Allergies: Mobic [meloxicam] Lab/Radiology/Other Diagnostic Tests: 24-hour labs: Results for orders placed or performed during the hospital encounter of 09/17/19 (from the past 24 hour(s)) CBC AND DIFF Collection Time: 09/27/19 4:11 AM Result Value Ref Range White Blood Cells 5.5 4.5 - 11.0 K/UL RBC 2.96 (L) 4.0 - 5.0 M/UL Hemoglobin 9.0 (L) 12.0 - 15.0 GM/DL Hematocrit 26.5 (L) 36 - 45 % MCV 89.5 80 - 100 FL MCH 30.6 26 - 34 PG MCHC 34.1 32.0 - 36.0 G/DL RDW 13.2 11 - 15 % Platelet Count 222 150 - 400 K/UL MPV 6.9 (L) 7 - 11 FL Neutrophils 70 41 - 77 % Lymphocytes 9 (L) 24 - 44 % Monocytes 18 (H) 4 - 12 % Eosinophils 2 0 - 5 % Basophils 1 0 - 2 % Absolute Neutrophil Count 3.82 1.8 - 7.0 K/UL Absolute Lymph Count 0.48 (L) 1.0 - 4.8 K/UL Absolute Monocyte Count 1.01 (H) 0 - 0.80 K/UL Absolute Eosinophil Count 0.12 0 - 0.45 K/UL Absolute Basophil Count 0.06 0 - 0.20 K/UL BASIC METABOLIC PANEL Collection Time: 09/27/19 4:11 AM Result Value Ref Range Sodium 136 (L) 137 - 147 MMOL/L Potassium 4.4 3.5 - 5.1 MMOL/L Chloride 101 98 - 110 MMOL/L CO2 19 (L) 21 - 30 MMOL/L Anion Gap 16 (H) 3 - 12 Glucose 93 70 - 100 MG/DL Blood Urea Nitrogen 86 (H) 7 - 25 MG/DL Creatinine 6.74 (H) 0.4 - 1.00 MG/DL Calcium 9.1 8.5 - 10.6 MG/DL eGFR Non 6 (L) >60 mL/min eGFR 7 (L) >60 mL/min CA19.9 Collection Time: 09/27/19 4:11 AM Result Value Ref Range CA 19-9 93 (H) <35 U/ml LEUKEMIA-LYMPHOMA PANEL BLOOD Collection Time: 09/27/19 4:11 AM Result Value Ref Range Leuk/Lymph Interpretation SEE PATHOLOGY REPORT Specimen/LLM BLOOD ALPHA FETO PROTEIN (AFP) Collection Time: 09/27/19 11:01 AM Result Value Ref Range Alpha Feto Protein 1.1 0.0 - 15.0 NG/ML LACTIC ACID(LACTATE) Collection Time: 09/27/19 11:01 AM Result Value Ref Range Lactic Acid 2.1 (H) 0.5 - 2.0 MMOL/L ELECTROPHORESIS-SERUM PROTEIN Collection Time: 09/27/19 11:01 AM Result Value Ref Range Total Protein-SEP 5.3 (L) 6.0 - 8.0 G/DL Albumin % 48 - 68 % Alpha 1 % 2 - 6 % Alpha 2 % 5 - 15 % Beta %,Serum 9 - 17 % Gamma % 9 - 21 % Paraprotein G/DL Interpretation - SEP Pathologist Signature ELECTROPHORESIS-UR RAN Collection Time: 09/27/19 2:30 PM Result Value Ref Range Total Protein, Urine 128 MG/DL Albumin %, Urine % Alpha 1 %, Urine % Alpha 2 %, Urine % Beta %, Urine % Gamma %, Urine % UEP Interpretation Paraprotein, Urine MG/DL Pathologist Signature Point of Care Testing: (Last 24 hours): Glucose: 93 (09/27/19 0411) I have examined the patient, and there are no significant changes in their condi tion, from the previous H&P performed on 09/26/19. Milo Gutierrez DO [id number] * Delphine Galvan DO - 09/25/2019 12:36 PM CDT Pulmonary Consult Note Admission Date: 09/17/2019 LOS: 7 Principal Problem: Acute renal failure (ARF) (HCC) Active Problems: Hyperkalemia High anion gap metabolic acidosis UTI (urinary tract infection) Physical debility ILD (interstitial lung disease) (HCC) Anemia Reason for Consult: "admitted with fatigue, weinberg and ARF. ct chest concerning fo r ILD/sarcoidosis. pls assist in further management." Consult type: Opinion with orders Impression 69 yo F with PMH of HTN, cervical and lumbar spinal fusions, reported RA who is admitted with acute renal failure, found to have abnormal chest CT findings conc erning for possible ILD versus sarcoidosis. Abnormal chest CT -Patchy interstitial opacities associated with airways, suspicious for sarcoidos is, hypersensitivity pneumonitis also in differential -She is without cough, reports dyspnea 2 to 3 days prior to admission that resol rufus on day 2 of admission. -Family history of autoimmune disorders -father with SLE, sister with an unknown vasculitis involving the lungs and kidneys Recommendations > ILD labs and urine calcium ordered > We will obtain a complete PFTs to further evaluate lung function (ordered) > We will attempt to get imaging from hospital in [facility], she reports chest x-ray on presentation on 09/[address] a CT chest approximately 5 years ago. > May consider bronchoscopy with biopsy depending on PFTs and review of outside imaging Patient seen and recommendations have been formulated with Dr. Estrada. Please s ee attestation for possible additional recommendations. Delphine Galvan DO Internal Medicine Resident | PGY-2 Pager [phone] or Voalte Me History of Present Illness: Mayr Tim is a 69 y.o. female with past medica l history of hypertension, cervical C3-C7 and lumbar L3-L5 spinal fusions, prese nted to an OSH with progressive weakness, fatigue, dyspnea and was found to have acute renal failure with hyperkalemia, hyperphosphatemia, anion gap metabolic a cidosis. She was transferred to [facility] on 09/17/2019. Renal function has slowly im proved during admission, she is currently being treated for UTI with Rocephin, t luiza is day 6 of 7. With persistent dyspnea and fatigue, chest imaging was obta ined which showed areas of fibrosis and concern for possible ILD versus sarcoido sis. She reports that she has had progressive weakness since January 2019, it acutel y became worse over the last month prior to admission. She has repeatedly seen her primary care physician for dizziness, reports that she did a trial of physic al therapy for presumed vertigo. She had 2 to 3 days of dyspnea prior to admiss ion that resolved approximate day 2. She denies history of cough, has not had a ny recent fever or chills. She reports that she has been ambulating the [facility] physical therapy and denies dyspnea. She does have a family history of autoimmune disease, she reports personal histo ry of RA, father had lupus, sister has a vasculitis involving the lungs and kid neys that she does not know the name of. She is a former smoker, she has a 64-p ack-year history, reporting quitting 12 years ago. She lives in a trailer that she ran states was built in 1947, she has 2 dogs, no recent travel. She did nelia e abroad in [place] for 3 years and traveled throughout [place]. 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 She reports she has had no known occupational exposures, and reports she has never had to leave work due to shortness of breat h. She denies history of peripheral neuropathy or sicca symptoms. Medical History: Diagnosis Date Back pain with history of spinal surgery Chronic pain Hypertension Surgical History: Procedure Laterality Date APPENDECTOMY CERVICAL FUSION LUMBAR FUSION TONSILLECTOMY Social History Socioeconomic History Marital status: Spouse name: Not on file Number of children: Not on file Years of education: Not on file Highest education level: Not on file Occupational History Not on file Tobacco Use Smoking status: Former Smoker Last attempt to quit: 09/19/2007 Years since quittin.0 Tobacco comment: quit >10 years ago Substance and Sexual Activity Alcohol use: Not Currently Drug use: Never Sexual activity: Not Currently Other Topics Concern Not on file Social History Narrative Not on file Family History Problem Relation Age of Onset Kidney Failure Mother SLE Father Cancer-Colon Brother Other Sister unknown vasculitis involving lung and kidney Allergies: Allergies Allergen Reactions Mobic [Meloxicam] SWOLLEN TONGUE Scheduled Meds: MEDSamitriptyline/gabapentin/emu oil(#), , Topical, Q8H cefTRIAXone (ROCEPHIN) IV, 1 g, Intravenous, Q24H* cyanocobalamin, 1,000 mcg, Oral, QDAY folic acid, 1 mg, Oral, QDAY heparin (porcine), 5,000 Units, Subcutaneous, Q8H* polyethylene glycol 3350, 1 packet, Oral, QDAY senna, 2 tablet, Oral, QHS IV MEDS Prn bisacodyL QDAY PRN, calcium carbonate Q6H PRN 1,000 mg at 07/09/20 2327, hydrALAZINE Q6H PRN, HYDROcodone/acetaminophen Q6H PRN 1 tablet at 1253, melatonin QHS PRN 5 mg at 09/24/192204, simethicone Q6H PRN 80 mg at 0 09/24/192204 HOME MEDS Medications Prior to Admission Medication Sig calcium carbonate (TUMS) 500 mg (200 mg elemental calcium) chewable tablet C hew 500-1,000 mg by mouth every 6 hours as needed. enalapril (VASOTEC) 10 mg tablet Take 5 mg by mouth daily. hydroCHLOROthiazide (HYDRODIURIL) 25 mg tablet Take 25 mg by mouth every mor norman. HYDROcodone/acetaminophen (NORCO) 10/325 mg tablet Take 1 tablet by mouth ev nicole 6 hours as needed for Pain potassium chloride SR (K-DUR) 10 mEq tablet Take 10 mEq by mouth twice daily . Take with a meal and a full glass of water. Review of Systems: 14 point ROS performed and negative with exception of weakness Vital Signs: Last Filed In 24 Hours Vital Signs: 24 Hour Range BP: 151/81 (09/24 1613) Temp: 36.9 C (98.4 F) (09/24 1613) Pulse: 68 (09/24 1425) Respirations: 17 PER MINUTE (09/24 1425) SpO2: 97 % (09/24 1425) SpO2 Pulse: 73 (09/24 1336) BP: (106-157)/(66-91) Temp: [35.8 C (96.5 F)-37.1 C (98.8 F)] Pulse: [68-87] Respirations: [17 PER MINUTE-24 PER MINUTE] SpO2: [95 %-97 %] Physical Exam: General: alert and oriented, cooperative and no distress Head: normocephalic, atraumatic, without obvious abnormality Eyes:?conjunctivae/corneas clear. PERRL, EOM's intact Throat: dentures in place, dry mucosa, lips normal Neck: supple, symmetrical, trachea midline Back: symmetric, no curvature. ROM normal. No CVA tenderness. Lungs: crackles over right middle lung adan, otherwise no wheezes or rhonchi Heart: regular rate and rhythm, S1, S2 normal, no murmur, click, rub or gallop Abdomen:?bowel sounds present, nontender, no organomegaly Extremities: bony changes involving DIPs bilateral hands, pulses palpable, no pe shae edema or skin lesions Neurologic: grossly normal, alert and oriented X 3 Lab/Radiology/Other Diagnostic Tests: Recent Labs 09/23/1937 09/24/19 0630 09/25/19 0400 NA 135* 134* 136* K 3.9 4.0 4.0 CL 97* 97* 101 CO2 22 22 23 GAP 16* 15* 12 BUN 89* 88* 86* CR 6.02* 5.93* 5.99* GLU 87 89 79 CA 8.9 8.6 8.4* ALBUMIN 3.0* 2.8* 2.8* Recent Labs 09/23/19 0537 09/24/19 0630 09/25/19 0400 WBC 7.0 6.9 5.7 HGB 8.3* 7.6* 6.7* HCT 23.7* 22.3* 19.6* PLTCT 232 217 175 AST 18 16 14 ALT 14 14 11 ALKPHOS 107 98 92 Estimated Creatinine Clearance: 8.9 mL/min (A) (based on SCr of 5.99 mg/dL (H)). Vitals: 09/17/19 2350 09/19/19 1411 Weight: 77 kg (169 lb 12.1 oz) 76.7 kg (169 lb) No results for input(s): PHART, PO2ART in the last 72 hours. Invalid input(s): PC02A Pertinent radiology reviewed. Associated attestation - Sanjay Estrada MD - 09/25/2019 11:38 PM CDT ATTESTATION I personally performed the ruiz portions of the E/M visit and reviewed laboratory and radiological findings, discussed case with the resident and concur with Dr. Galvan's documentation of history, physical exam, assessment and treatment pl an. Where appropriate, addendums have been made to the note. Patient with acute renal failure and radiological changes suggestive of sarcoid vs HP. Will f/u labs and discuss possible need of bronchoscopy and further testi ng based on lab results. Sanjay Estrada MD 09/25/2019 * Yovana Falcon, DO - 09/18/2019 12:20 AM CDT ATTESTATION I personally performed the ruiz portions of the E/M visit, reviewed my colleague' s documentation of history, physical exam, assessment, and treatment plan and co ncur unless otherwise noted. Staff name: Yovana Falcon DO Date: 09/18/2019 Team Pager [phone] Admission History and Physical Examination Name: Mary Tim Admission Date: 09/17/2019 Assessment/Plan: Principal Problem: Acute renal failure (ARF) (HCC) Active Problems: Hyperkalemia High anion gap metabolic acidosis Mary Tim is a 69 y.o. female with PMHx of HTN and cervical (C3-C7) and jaime mbar (L3-L5) spinal fusions who presented for progressively worsening weakness a nd fatigue and was found to have acute renal failure with hyperkalemia and anion gap metabolic acidosis. #Acute Renal Failure - Symptomatic with progressive weakness, fatigue, and dyspnea - Likely multifactorial 2/2 poor PO intake and use of NSAID/CECE medication as we ll as supplemental potassium - Direct transfer from [facility] - Baseline Cr 1.24 back in Apr 2019 - Cr 7.87 at OSH >> Cr 7.32 on admission to [facility] - Pt with reported PMHx of thyroid abnormalities - Reported FamHx of lupus (father), ESRD requiring peritoneal dialysis (mother) Plan: [] Increase PO intake Start D5 150meq bicarb at 100/hr [] US kidney with doppler [] Bladder scan [] Urine electrolytes [] Hold RUG DRYING MACHINE OPERATOR Enalapril and Nabumetone [] Consider nephro consult if Cr does not improve - consulted [] Avoid nephrotoxins and NSAIDS [] Renally dose medications [] BMP BID #Hyperkalemia, improved - K 6.1 at OSH - K 5.6 on admission - Tx at [facility] included: 1L IV NS, 50ml D50W, 10U regular insulin , 1gm calcium chloride, 7.5mg albuterol, 50meq sodium bicarbonate, and 15gm destiny xalate - EKG unremarkable [] Hold K supplements [] Continue to monitor, anticipate improvement with kayexalate #Anion gap metabolic acidosis - BMP with AG 19, CO2 13 - VBG pH 7.21/pCO2 34/pO2 47 Plan: [] IVF per above [] Serum osm to r/o ingestion as potential etiology #HTN - Systolic BP elevated to 140-150s on admission Plan: [] Holding RUG DRYING MACHINE OPERATOR Enalapril due to ARF [] Monitor BPs [] PRN Hydralazine 10mg q6h for SBP >180 #Hyperphosphatemia - Elevated to 6.5 on admission Plan: [] Continue to monitor [] Hold off on binders for now # Normocytic anemia - no signs of bleeding, iron studies with AOCD. B12 and Folate low, start repl acement. [] Continue to monitor h/h #Cervical spinal fusion C3-C7 (2013) #Lumbar spine surgery/fusion L3-L5 (2014) [] Continue RUG DRYING MACHINE OPERATOR Hydrocodone/Acetaminophen [] Continue RUG DRYING MACHINE OPERATOR Diclofenac gel FEN: - IVF LR 2L - monitor volume status - Replace lytes prn - Renal Diet PPx: SCDs, SQH Dispo: Gigalocal C Code: FULL Yovana Falcon, DO Internal Medicine, PGY-1 Available on Voalte Pager: [phone] *Senior Attestation Patient seen and examined with Dr. Eason Mr. Tim is a 69-year-old female with history of hypertension and back pain. Presents as a transfer from outside hospital for acute renal failure and hyper kalemia. Reports having fatigue for few months now that has worsened over the l ast 3 weeks. Additionally having decreased p.o. intake. No changes in her urin karson habits. She is actively taking enalapril, NSAID, HCTZ. Additionally report s a history of autoimmune disease in family and mother who is on peritoneal dial ysis prior to her . Creatinine reportedly 1.3 at baseline, greater than 7. 5 at outside hospital. K6.1. No EKG changes and given calcium chloride, insuli n, D50, sodium bicarb, albuterol, Kayexalate. Additionally given 1 L of normal saline prior to transfer. Zambrano placed at outside hospital Physical exam: Crackles throughout the lung adan, worse on right. Trace pedal edema Labs: K5.6, bicarb 13, anion gap 19, BUN 109, creatinine 7.32, phosphorus 6.5, hemoglo bin 8.8 VBG 7.21/30 , UA 1+ protein, 2+ blood, trace leukocytes Assessment: -Acute kidney injury secondary to NSAIDs/diuretic/CECE inhibitor compounded by po or p.o. intake -Hyperkalemia -Anion gap metabolic acidosis with non-anion gap metabolic acidosis -Uremia -Hyperphosphatemia -Hypertension Plan: -BMP twice daily -LR 2 L, followed by bicarb drip -Urine electrolytes, include urine chloride, potassium, osmolality -Protein creatinine ratio -Renal bladder ultrasound with Doppler -Consult nephrology -Hold CECE inhibitor, NSAIDs, antihypertensives -Monitor K as patient has received Kayexalate -Hydralazine PRN -Serum osmolality Rest of plan per Dr. Eason's H&P Patient discussed with Dr. Bouchra Metz DO Internal Medicine PGY3 __ Primary Care Physician: No primary care provider on file. PCP Unknown Chief Complaint: Progressive weakness and fatigue History of Present Illness: Mary Tim is a 69 y.o. female with PMHx of HTN and cervical (C3-C7) and lumbar (L3-L5) spinal fusions who presents for progres sively worsening weakness and fatigue. The patient reports onset of these sympto ms in April and states that they have progressively been worsening. Over the past few weeks, the patient has also noticed becoming increasingly short of patt th, which is worse with exertion. She reports only being able to walk a few step s recently before needing to pause to catch her breath. 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 She also endorses decreased appetite over the past month w ith associated weight loss of approximately 15 pounds. Additionally endorses occ asional nausea with no vomiting and chronic back pain. Denies F/C, night sweats, myalgias, arthralgias, skin changes, CP, orthopnea, PND, diarrhea, constipation , and urinary changes. The patient initially presented for her symptoms on 09/16 to [facility] ([place], [place]). Workup at [facility] included: EKG, ABG, U A. Her renal failure and hyperkalemia were treated with 1L IV NS, 50ml D50W, 10U insulin, 1gm calcium chloride, 7.5mg albuterol, 50meq sodium bicarbonate, and 1 5gm kayexalate. Of note, the patient reports significant family history of renal problems. She s tates that her father had lupus and mother had ARF requiring peritoneal dialysis . Medical History: Diagnosis Date Back pain with history of spinal surgery Chronic pain Hypertension PSHx Tonsillectomy Appendectomy Left knee scope (1996) Breast augmentation + tummy tuck/abdominoplasty (1997) Cervical spinal fusion C3-C7 (2013) Lumbar spine surgery/fusion L3-L5 (2014) FamHx Father - Lupus Mother - ARF requiring peritoneal dialysis Sister - vasculitis Social History Socioeconomic History Marital status: Spouse name: Not on file Number of children: Not on file Years of education: Not on file Highest education level: Not on file Occupational History Not on file Social Needs Financial resource strain: Not on file Food insecurity Worry: Not on file Inability: Not on file Transportation needs Medical: Not on file Non-medical: Not on file Tobacco Use Smoking status: Former Smoker Tobacco comment: quit >10 years ago Substance and Sexual Activity Alcohol use: Not Currently Drug use: Never Sexual activity: Not Currently Lifestyle Physical activity Days per week: Not on file Minutes per session: Not on file Stress: Not on file Relationships Social connections Talks on phone: Not on file Gets together: Not on file Attends restorationism service: Not on file Active member of club or organization: Not on file Attends meetings of clubs or organizations: Not on file Relationship status: Not on file Intimate partner violence Fear of current or ex partner: Not on file Emotionally abused: Not on file Physically abused: Not on file Forced sexual activity: Not on file Other Topics Concern Not on file Social History Narrative Not on file Immunizations (includes history and patient reported): There is no immunization history on file for this patient. Allergies: Mobic [meloxicam] Medications: Hydrocodone/Acetaminophen 10-325 PO Q6H PRN Potassium chloride ER 10MEQ PO BID Nabumetone 500mg PO QD HCTZ 25mg PO QD Enalapril 5mg PO 1/2 daily Diclofenac sodium 1% Topical Gel BID Review of Systems: Review of Systems Constitutional: Positive for malaise/fatigue and weight loss. Negative for chill s and fever. HENT: Negative for congestion, hearing loss and sore throat. Eyes: Negative. Respiratory: Positive for shortness of breath. Negative for cough and wheezing. Cardiovascular: Negative. Gastrointestinal: Positive for abdominal pain and nausea. Negative for blood in stool, constipation, diarrhea, melena and vomiting. Genitourinary: Negative. Musculoskeletal: Positive for back pain. Negative for joint pain and myalgias. Skin: Negative. Neurological: Positive for weakness. Negative for dizziness, tingling, sensory c hange, focal weakness and headaches. Psychiatric/Behavioral: Negative. Physical Exam: Vital Signs: Last Filed In 24 Hours Vital Signs: 24 Hour Range BP: 152/70 (09/17 912) Temp: 36.8 C (98.2 F) (09/17 912) Pulse: 101 (09/17 912) Respirations: 20 PER MINUTE (09/17 912) SpO2: 97 % (09/17 912) Height: 162.6 cm (64") (09/16 2350) BP: (146-157)/(70-77) Temp: [36.4 C (97.6 F)-36.9 C (98.4 F)] Pulse: [98-108] Respirations: [18 PER MINUTE-20 PER MINUTE] SpO2: [97 %-99 %] General: Alert, no acute distress HEENT: PERRLA, EOMI, moist mucous membranes, neck supple and midline Lungs: bilateral basilar crackles Heart: RRR, no m/r/g Abdomen: Soft, mild generalized tenderness, nondistended Extremities: 1+ LE edema, no cyanosis, 2+ pedal pulses bilaterally Skin: warm, dry, intact, no petechiae or rashes Neuro: speech fluent, no focal deficits appreciated Psych: appropriate mood and behavior Lab/Radiology/Other Diagnostic Tests: 24-hour labs: Results for orders placed or performed during the hospital encounter of 09/17/19 (from the past 24 hour(s)) BLOOD GASES, PERIPHERAL VENOUS Collection Time: 09/18/19 1:30 AM Result Value Ref Range pH-Venous 7.21 (L) 7.30 - 7.40 PCO2-Venous 34 (L) 36 - 50 MMHG PO2-Venous 47 33 - 48 MMHG Base Deficit-Venous 13.6 MMOL/L O2 Sat-Venous 75.4 (H) 55 - 71 % [id number] 13.6 MMOL/L BASIC METABOLIC PANEL Collection Time: 09/18/19 1:30 AM Result Value Ref Range Sodium 141 137 - 147 MMOL/L Potassium 5.6 (H) 3.5 - 5.1 MMOL/L Chloride 109 98 - 110 MMOL/L CO2 13 (L) 21 - 30 MMOL/L Anion Gap 19 (H) 3 - 12 Glucose 80 70 - 100 MG/DL Blood Urea Nitrogen 109 (H) 7 - 25 MG/DL Creatinine 7.32 (H) 0.4 - 1.00 MG/DL Calcium 10.6 8.5 - 10.6 MG/DL eGFR Non 6 (L) >60 mL/min eGFR 7 (L) >60 mL/min MAGNESIUM Collection Time: 09/18/19 1:30 AM Result Value Ref Range Magnesium 2.3 1.6 - 2.6 mg/dL PHOSPHORUS Collection Time: 09/18/19 1:30 AM Result Value Ref Range Phosphorus 6.5 (H) 2.0 - 4.5 MG/DL URINALYSIS DIPSTICK Collection Time: 09/18/19 1:30 AM Result Value Ref Range Color,UA YELLOW Turbidity,UA CLEAR CLEAR-CLEAR Specific [place]-Urine 1.014 1.003 - 1.035 pH,UA 5.0 5.0 - 8.0 Protein,UA 1+ (A) NEG-NEG Glucose,UA NEG NEG-NEG Ketones,UA NEG NEG-NEG Bilirubin,UA NEG NEG-NEG Blood,UA 2+ (A) NEG-NEG Urobilinogen,UA NORMAL NORM-NORMAL Nitrite,UA NEG NEG-NEG Leukocytes,UA TRACE (A) NEG-NEG Urine Ascorbic Acid, UA NEG NEG-NEG URINALYSIS, MICROSCOPIC Collection Time: 09/18/19 1:30 AM Result Value Ref Range WBCs,UA 10-20 0 - 2 /HPF RBCs,UA 2-10 0 - 3 /HPF MucousUA TRACE Squamous Epithelial Cells 0-2 0 - 5 COVID-19 (SARS-COV-2) PCR Collection Time: 09/18/19 1:30 AM Result Value Ref Range COVID-19 (SARS-CoV-2) PCR Source NASOPHARYNGEAL SWAB COVID-19 (SARS-CoV-2) PCR NOT DETECTED DN-NOT DETECTED CREATININE-URINE RANDOM Collection Time: 09/18/19 1:30 AM Result Value Ref Range Creatinine, Random 97 MG/DL UREA NITROGEN-URINE RANDOM Collection Time: 09/18/19 1:30 AM Result Value Ref Range Urea Nitrogen 479 MG/DL SODIUM-URINE RANDOM Collection Time: 09/18/19 1:30 AM Result Value Ref Range Sodium, Random 53 MMOL/L CBC AND DIFF Collection Time: 09/18/19 7:02 AM Result Value Ref Range White Blood Cells 7.4 4.5 - 11.0 K/UL RBC 2.82 (L) 4.0 - 5.0 M/UL Hemoglobin 8.8 (L) 12.0 - 15.0 GM/DL Hematocrit 25.9 (L) 36 - 45 % MCV 91.8 80 - 100 FL MCH 31.3 26 - 34 PG MCHC 34.1 32.0 - 36.0 G/DL RDW 12.9 11 - 15 % Platelet Count 315 150 - 400 K/UL MPV 6.3 (L) 7 - 11 FL Neutrophils 75 41 - 77 % Lymphocytes 8 (L) 24 - 44 % Monocytes 16 (H) 4 - 12 % Eosinophils 1 0 - 5 % Basophils 0 0 - 2 % Absolute Neutrophil Count 5.56 1.8 - 7.0 K/UL Absolute Lymph Count 0.60 (L) 1.0 - 4.8 K/UL Absolute Monocyte Count 1.18 (H) 0 - 0.80 K/UL Absolute Eosinophil Count 0.04 0 - 0.45 K/UL Absolute Basophil Count 0.03 0 - 0.20 K/UL COMPREHENSIVE METABOLIC PANEL Collection Time: 09/18/19 7:02 AM Result Value Ref Range Sodium 140 137 - 147 MMOL/L Potassium 4.8 3.5 - 5.1 MMOL/L Chloride 110 98 - 110 MMOL/L Glucose 77 70 - 100 MG/DL Blood Urea Nitrogen 100 (H) 7 - 25 MG/DL Creatinine 6.99 (H) 0.4 - 1.00 MG/DL Calcium 9.5 8.5 - 10.6 MG/DL Total Protein 6.0 6.0 - 8.0 G/DL Total Bilirubin 0.2 (L) 0.3 - 1.2 MG/DL Albumin 3.3 (L) 3.5 - 5.0 G/DL Alk Phosphatase 105 25 - 110 U/L AST (SGOT) 11 7 - 40 U/L CO2 10 (L) 21 - 30 MMOL/L ALT (SGPT) 11 7 - 56 U/L Anion Gap 20 (H) 3 - 12 eGFR Non 6 (L) >60 mL/min eGFR 7 (L) >60 mL/min IRON + BINDING CAPACITY + %SAT+ FERRITIN Collection Time: 09/18/19 7:02 AM Result Value Ref Range Iron 22 (L) 50 - 160 MCG/DL Iron Binding-TIBC 203 (L) 270 - 380 MCG/DL % Saturation 11 (L) 28 - 42 % Ferritin 345 (H) 10 - 200 NG/ML RETICULOCYTE COUNT Collection Time: 09/18/19 7:02 AM Result Value Ref Range Retic, Uncorrected 2.0 0.5 - 2.0 % Retic, Corrected 1.2 % Retic, Absolute 55.0 30 - 94 K/UL PROTEIN/CR RATIO,UR RAN Collection Time: 09/18/19 9:15 AM Result Value Ref Range Protein, Random 83 MG/DL Creatinine, Random 95 MG/DL Protein/CR ratio 0.9 CHLORIDE-URINE RANDOM Collection Time: 09/18/19 9:15 AM Result Value Ref Range Chloride, Random 53 MMOL/L OSMOLALITY-URINE RANDOM Collection Time: 09/18/19 9:15 AM Result Value Ref Range Osmolality-Urine 377 50 - 1,400 MOS/KG FOLATE, SERUM Collection Time: 09/18/19 9:54 AM Result Value Ref Range Serum Folate 4.0 >3.9 NG/ML VITAMIN B12 Collection Time: 09/18/19 9:54 AM Result Value Ref Range Vitamin B12 289 180 - 914 PG/ML TSH WITH FREE T4 REFLEX Collection Time: 09/18/19 9:54 AM Result Value Ref Range TSH 1.67 0.35 - 5.00 MCU/ML PROTIME INR (PT) Collection Time: 09/18/19 9:54 AM Result Value Ref Range INR 1.4 (H) 0.8 - 1.2 PTT (APTT) Collection Time: 09/18/19 9:54 AM Result Value Ref Range APTT 27.5 24.0 - 36.5 SEC OSMOLALITY Collection Time: 09/18/19 9:54 AM Result Value Ref Range Osmolality 324 (H) 280 - 307 MOSMOL/KG 09/16 CXR at OSH: Mild chronic appearing increased interstitial markings. No acute consolidation or pleural fluid. Yovana Falcon DO Internal Medicine, PGY-1 Available on Voalte Pager: [phone] documented in this encounter Procedure Notes * Sri Knutson RN - 10/10/2019 3:02 PM CDT Associated Order(s): HEMODIALYSIS INPATIENT; HEMODIALYSIS DATE 1320 Pt from IR to [facility] [place] 2 s/p lumbar puncture. Placed on telemetry with beds hector monitor. VSS at this time. Consent verified, orders noted, bedside safety ch salvatore complete. Pt given several warm blankets for comfort. Flat in bed s/p lumbar puncture until 1330. 1330 time out completed. Right IJ tunneled HD catheter accessed per approved pro cedure and then HD tx initiated. Tx today x 3 hours, 3K+ dialysate, 0-0.[address] Coleman here at this time. No change in orders at this time. Pt voices n o complaints. 1700 Pt HD tx completed. Post assessment and VS done. No acute changes noted fro m pre-assessment. VSS at this time. Total UF 0.5 kgs. Report given to Tiffany WATKINS u nit BH42 * Anurag Hanson RN - 10/07/2019 6:57 PM CDT Associated Order(s): HEMODIALYSIS INPATIENT; HEMODIALYSIS DATE Hemodialysis Procedure Report Report recieved from Primary Care RNMarcus RN at 1230. [facility] [place] [facility].. Patient ID verified and consent signed: Yes Labs and orders reviewed: Yes Patient attached to Cardiac, NBP, SpO2 and CritLine monitoring. Tunneled Dialysis Catheter on left or right: Right side. Red and Blue ports ac cessed without difficulty. Aspirated and flushed easily.. TX START TIME: 1435. Prescribed treatment parameters achieved at treatment start. Patient's face uncovered and in view: Yes Lines and access secure, in view and intact: Yes Dr. Coleman at the bedside at 1513. notified that patient on treatment and es timated time off. TX END TIME: 1806. Net UF: 1L. End Weight: 78.2 kg. Tunneled Hemodialysis Line flushed and packed. Red end caps placed. Report given to Primary Care RNMarcus RN at 1825. See Hemodialysis Flow Sheet and MAR for details. * Nette Rosa RN - 10/05/2019 8:59 AM CDT Associated Order(s): HEMODIALYSIS INPATIENT; HEMODIALYSIS DATE 0610: Report received from primary nurse, ROLAND Ovalles 0640: Arrived per bed to dialysis. Awake, alert. ID and consent verified. Attach ed to cardiac, BP and oximetry monitors. Right tunneled CVC accessed, aspirates and flushes without difficulty. 0653: Dialysis started. Ordered blood flow easily attained. Discussed effects of urea. Agrees that she has a persistent "bad taste" in her mouth. 0730: Watching TV 0830: Dr Carlos at bedside. 0835: Turned to left side for comfort 0955: Dr Coleman here, updated. 1055: Dialysis complete. Blood returned with NS rinse. CVC care completed. 1115: Returned to room per bed with O2 on. 1120: Report called to primary nurseGinger RN * Funmilayo Monreal RN - 10/03/2019 8:20 AM CDT Associated Order(s): HEMODIALYSIS INPATIENT Hemodialysis Procedure Report Report recieved from Primary Care RNSergio RN at 0703. [facility] [place] [facility] Patient ID verified and consent signed: Yes Labs and orders reviewed: Yes Patient attached to Cardiac, NBP, SpO2 and CritLine monitoring. Non Tunneled Dialysis Catheter on left or right: Right side. Red and Blue port s accessed without difficulty. Aspirated and flushed easily.. TX START TIME: 0750. Prescribed treatment parameters achieved at treatment start. Patient's face uncovered and in view: Yes Lines and access secure, in view and intact: Yes Dr. Coleman notified at 0821that patient on treatment and estimated time off. TX END TIME: 1050. Net UF: 2.0L. End Weight: 69.9 kg. Blood was returned to the patient. Patient tolerated treatment well Tunneled Hemodialysis Line flushed and packed. Red end caps placed. Report given to Primary Care Laly WATKINS RN at 1117. See Hemodialysis Flow Sheet and MAR for details. * Crispin Mata RN - 10/02/2019 2:40 PM CDT Associated Order(s): HEMODIALYSIS INPATIENT; HEMODIALYSIS DATE; HEMODIALYSIS INP ATIENT Report received from Primary Care Reanna WATKINS at 1215. Pt arrived via w/c from [facility] and attached to nbp, oxcemitry, and cardiac monit oring. Pt ID Verified with Jessie WATKINS. Signed consent in the chart. Labs and Orders Reviewed. Access Used: RIJ tunneled HD catheter. TX START TIME: 1345. UF Profile used: 0. Bath used: 2K. Prescribed treatment parameters achieved. Lines and access secure In view and intact. Face uncovered and in view. Dr. Coleman notified at 1445 that patient on treatment and estimated time off. 1500 Dr Coleman and the rest of the team were at bedside, new instruction was to increased the UF to 1.5Ls. TX END TIME: 1615. Net UF: 1.526ml. End Weight: 75.1kgs. Blood rinsed back post tx. Pt tolerated the treatment well. Pt without complaint post treatment. RIJ tunneled HD catheter was flushed with NS, packed with NS then red curos caps applied. Report given to Primary Care ROLAND Forte, At around 1645. Pt placed in transportation at 1600 and left unit at 1640 via w/c. See Dialysis Flowsheet and MAR for details. * Brandi Greco RN - 10/01/2019 5:33 PM CDT Associated Order(s): HEMODIALYSIS DATE Pt to [facility] Dialysis bay 3 via bed by it service technician, placed on franchise sales manager, Rt SC CVC accessed and tx initiated per Dr mobley. Report from floor RN. UFG 1L Pt tolerated tx well, 1L NET UF, Report called to floor RN documented in this encounter Consult Notes * Ketty Posada, MSN,CLAMSHELL OPERATOR - 10/09/2019 12:34 PM CDT Associated Order(s): CONSULT INTERVENTIONAL RADIOLOGY PHYSICIAN Pre Procedure History and Physical/Sedation Plan A full consult has been completed regarding this patient during this admission p reviously. Therefore this consult will only link to an updated pre-procedure H& P. For details of patient assessment, please see previous IR consult. Thank you. Procedure Date: 10/09/2019 Planned Procedure(s): LP with IT chemo Indication for exam: DLBCL Chief Complaint: See above Previous Anesthetic/Sedation History: NA. Allergies: Mobic [meloxicam] Medications: Scheduled Meds:acyclovir (ZOVIRAX) capsule 200 mg, 200 mg, Oral, BID allopurinoL (ZYLOPRIM) tablet 100 mg, 100 mg, Oral, QDAY amitriptyline/gabapentin/emu oil(#) 4/4/10 % topical cream, , Topical, Q8H amLODIPine (NORVASC) tablet 10 mg, 10 mg, Oral, QDAY cyanocobalamin (VITAMIN B-12) tablet 1,000 mcg, 1,000 mcg, Oral, QDAY [START ON 10/10/2019] cytarabine PF (CYTOSAR) injection (IT) 100 mg, 100 mg, Intr athecal, ONCE filgrastim-sndz (ZARXIO) inj syringe 300 mcg, 300 mcg, Subcutaneous, Q24H* folic acid (FOLVITE) tablet 1 mg, 1 mg, Oral, QDAY heparin (porcine) PF syringe 5,000 Units, 5,000 Units, Subcutaneous, Q8H* [START ON 10/10/2019] LORazepam (ATIVAN) tablet 0.5 mg, 0.5 mg, Oral, ONCE mineral oil/hydrophilic petrolatum (AQUAPHOR, DERMAPHOR) topical ointment, , Top ical, QDAY polyethylene glycol 3350 (MIRALAX) packet 34 g, 2 packet, Oral, QDAY senna (SENOKOT) tablet 2 tablet, 2 tablet, Oral, QHS sodium bicarbonate tablet 650 mg, 650 mg, Oral, BID vitamins, multi B, C, Zn & folate (Renal) (NEPHPLEX RX) tablet 1 tablet, 1 tablet, Oral, QDAY Continuous Infusions: PRN and Respiratory Meds:calcium carbonate Q6H PRN, guaiFENesin Q4H PRN, melaton in QHS PRN, simethicone Q6H PRN, sodium chloride 0.9% irrigation bottle PRN, vit paz A & D PRN Vital Signs: Last Filed Vital Signs: 24 Hour Range BP: 128/60 (10/08 1200) Temp: 36.7 C (98 F) (10/08 1200) Pulse: 94 (10/08 1200) Respirations: 20 PER MINUTE (10/08 1200) SpO2: 95 % (10/09 1199) BP: (120-136)/(50-63) Temp: [36.3 C (97.3 F)-36.7 C (98 F)] Pulse: [89-102] Respirations: [18 PER MINUTE-22 PER MINUTE] SpO2: [93 %-98 %] Sedation/Medication Plan: Lidocaine Discussion/Reviews: Physician has discussed risks and alternatives of this type of sedation and above planned procedures with patient NPO Status: Acceptable Status: Not Lab/Radiology/Other Diagnostic Tests Labs: Relevant labs reviewed I have examined the patient, and there are no significant changes in their condi tion, from the previous H&P performed on 09/30/2019. Ketty Posada, MSN,CLAMSHELL OPERATOR Pager [phone] * Jacob Contreras APRN-BOARD SETTER - 10/06/2019 1:55 PM CDT Associated Order(s): CONSULT INTERVENTIONAL RADIOLOGY PHYSICIAN Pre Procedure History and Physical/Sedation Plan A full consult has been completed regarding this patient during this admission p reviously. Therefore this consult will only link to an updated pre-procedure H& P. For details of patient assessment, please see previous IR consult. Thank you. Procedure Date: 10/06/2019 Planned Procedure(s): LP Indication for exam: IT chemo admin Chief Complaint: DLBCL Previous Anesthetic/Sedation History: Reviewed Allergies: Mobic [meloxicam] Medications: Scheduled Meds:acyclovir (ZOVIRAX) capsule 200 mg, 200 mg, Oral, BID allopurinoL (ZYLOPRIM) tablet 100 mg, 100 mg, Oral, QDAY amitriptyline/gabapentin/emu oil(#) 4/4/10 % topical cream, , Topical, Q8H amLODIPine (NORVASC) tablet 10 mg, 10 mg, Oral, QDAY cyanocobalamin (VITAMIN B-12) tablet 1,000 mcg, 1,000 mcg, Oral, QDAY [START ON 10/08/2019] filgrastim-sndz (ZARXIO) inj syringe 300 mcg, 300 mcg, Subc utaneous, Q24H* folic acid (FOLVITE) tablet 1 mg, 1 mg, Oral, QDAY heparin (porcine) PF syringe 5,000 Units, 5,000 Units, Subcutaneous, Q8H* [START ON 10/07/2019] LORazepam (ATIVAN) tablet 0.5 mg, 0.5 mg, Oral, ONCE [START ON 10/07/2019] methotrexate PF 12 mg in sodium chloride PF 0.9% 5 mL IT sy ringe, 12 mg, Intrathecal, ONCE mineral oil/hydrophilic petrolatum (AQUAPHOR, DERMAPHOR) topical ointment, , Top ical, QDAY polyethylene glycol 3350 (MIRALAX) packet 34 g, 2 packet, Oral, QDAY predniSONE (DELTASONE) tablet 100 mg, 100 mg, Oral, Q24H* senna (SENOKOT) tablet 2 tablet, 2 tablet, Oral, QHS sodium bicarbonate tablet 650 mg, 650 mg, Oral, BID vitamins, multi B, C, Zn & folate (Renal) (NEPHPLEX RX) tablet 1 tablet, 1 tablet, Oral, QDAY Continuous Infusions: sodium chloride 0.9 % infusion 50 mL/hr at 10/05/19 2154 PRN and Respiratory Meds:calcium carbonate Q6H PRN, guaiFENesin Q4H PRN, HYDROco done/acetaminophen Q6H PRN, melatonin QHS PRN, simethicone Q6H PRN, sodium chlor hector 0.9% irrigation bottle PRN, vitamin A & D PRN Vital Signs: Last Filed Vital Signs: 24 Hour Range BP: 93/52 (10/05 134) Temp: 36.8 C (98.2 F) (10/05 1344) Pulse: 80 (10/05 1344) Respirations: 16 PER MINUTE (10/05 1344) SpO2: 96 % (10/05 1344) BP: (93-137)/(43-65) Temp: [36.3 C (97.3 F)-36.9 C (98.5 F)] Pulse: [53-100] Respirations: [16 PER MINUTE-28 PER MINUTE] SpO2: [92 %-98 %] Sedation/Medication Plan: Lidocaine Personal history of sedation complications: Denies adverse event. Family history of sedation complications: Denies adverse event. Medications for Reversal: None Discussion/Reviews: Physician has discussed risks and alternatives of this type of sedation and above planned procedures with patient NPO Status: Acceptable Anesthesia Classification: ASA III (A patient with a severe systemic disease th at limits activity, but is not incapacitating) Status: Not Lab/Radiology/Other Diagnostic Tests Labs: 24-hour labs: Results for orders placed or performed during the hospital encounter of 09/17/19 (from the past 24 hour(s)) URIC ACID Collection Time: 10/05/19 6:16 PM Result Value Ref Range Uric Acid 1.9 (L) 2.0 - 7.0 MG/DL PROTIME INR (PT) Collection Time: 10/06/19 4:15 AM Result Value Ref Range INR 1.3 (H) 0.8 - 1.2 LDH-LACTATE DEHYDROGENASE Collection Time: 10/06/19 4:15 AM Result Value Ref Range Lactate Dehydrogenase 514 (H) 100 - 210 U/L MAGNESIUM Collection Time: 10/06/19 4:15 AM Result Value Ref Range Magnesium 2.0 1.6 - 2.6 mg/dL CBC AND DIFF Collection Time: 10/06/19 4:15 AM Result Value Ref Range White Blood Cells 10.2 4.5 - 11.0 K/UL RBC 2.43 (L) 4.0 - 5.0 M/UL Hemoglobin 7.4 (L) 12.0 - 15.0 GM/DL Hematocrit 22.2 (L) 36 - 45 % MCV 91.2 80 - 100 FL MCH 30.4 26 - 34 PG MCHC 33.4 32.0 - 36.0 G/DL RDW 13.4 11 - 15 % Platelet Count 217 150 - 400 K/UL MPV 6.2 (L) 7 - 11 FL Neutrophils 90 (H) 41 - 77 % Lymphocytes 5 (L) 24 - 44 % Monocytes 5 4 - 12 % Eosinophils 0 0 - 5 % Basophils 0 0 - 2 % Absolute Neutrophil Count 9.28 (H) 1.8 - 7.0 K/UL Absolute Lymph Count 0.48 (L) 1.0 - 4.8 K/UL Absolute Monocyte Count 0.46 0 - 0.80 K/UL Absolute Eosinophil Count 0.00 0 - 0.45 K/UL Absolute Basophil Count 0.02 0 - 0.20 K/UL BASIC METABOLIC PANEL Collection Time: 10/06/19 4:15 AM Result Value Ref Range Sodium 140 137 - 147 MMOL/L Potassium 4.3 3.5 - 5.1 MMOL/L Chloride 101 98 - 110 MMOL/L CO2 24 21 - 30 MMOL/L Anion Gap 15 (H) 3 - 12 Glucose 132 (H) 70 - 100 MG/DL Blood Urea Nitrogen 28 (H) 7 - 25 MG/DL Creatinine 2.90 (H) 0.4 - 1.00 MG/DL Calcium 7.8 (L) 8.5 - 10.6 MG/DL eGFR Non 16 (L) >60 mL/min eGFR 19 (L) >60 mL/min PHOSPHORUS Collection Time: 10/06/19 4:15 AM Result Value Ref Range Phosphorus 4.6 (H) 2.0 - 4.5 MG/DL LIVER FUNCTION PANEL Collection Time: 10/06/19 4:15 AM Result Value Ref Range Total Bilirubin 0.4 0.3 - 1.2 MG/DL Bilirubin, Direct 0.1 <0.4 MG/DL Albumin 2.7 (L) 3.5 - 5.0 G/DL Alk Phosphatase 155 (H) 25 - 110 U/L AST (SGOT) 39 7 - 40 U/L ALT (SGPT) 21 7 - 56 U/L Total Protein 5.6 (L) 6.0 - 8.0 G/DL COMPREHENSIVE METABOLIC PANEL Collection Time: 10/06/19 4:15 AM Result Value Ref Range Sodium 141 137 - 147 MMOL/L Potassium 4.3 3.5 - 5.1 MMOL/L Chloride 102 98 - 110 MMOL/L Glucose 130 (H) 70 - 100 MG/DL Blood Urea Nitrogen 28 (H) 7 - 25 MG/DL Creatinine 2.96 (H) 0.4 - 1.00 MG/DL Calcium 7.7 (L) 8.5 - 10.6 MG/DL Total Protein 5.7 (L) 6.0 - 8.0 G/DL Total Bilirubin 0.3 0.3 - 1.2 MG/DL Albumin 2.7 (L) 3.5 - 5.0 G/DL Alk Phosphatase 165 (H) 25 - 110 U/L AST (SGOT) 41 (H) 7 - 40 U/L CO2 22 21 - 30 MMOL/L ALT (SGPT) 21 7 - 56 U/L Anion Gap 17 (H) 3 - 12 eGFR Non 16 (L) >60 mL/min eGFR 19 (L) >60 mL/min I have examined the patient, and there are no significant changes in their condi tion, from the previous H&P performed on 10/05/19. TORO Bauer Pager [phone] * Lily Ambrosio APRN-NP - 10/03/2019 12:37 PM CDT Associated Order(s): CONSULT INTERVENTIONAL RADIOLOGY PHYSICIAN Interventional Radiology Consult Note with Pre-procedural History and Physical Admission Date: 09/17/2019 LOS: 15 days Principal Problem: Acute renal failure (ARF) (HCC) Active Problems: Hyperkalemia High anion gap metabolic acidosis UTI (urinary tract infection) Physical debility ILD (interstitial lung disease) (HCC) Anemia Abnormal CT of the chest Abnormal abdominal CT scan Elevated CA 19-9 level Reason for consult: Lymphoma Assessment: - Admitted with weakness, fatigue, dyspnea, renal failure. Found to have DLBCL - Need LP for staging Lymphoma and need for chest port for chemotherapy - Labs, medications, and allergies meet procedural protocol. - Pt is not on a therapeutic blood thinner - Platelet Count Date Value Ref Range Status 10/03/2019 248 150 - 400 K/UL Final ; INR Date Value Ref Range Status 10/03/2019 1.3 (H) 0.8 - 1.2 Final Plan: - LP has been reviewed and added onto the [place] IR schedule for today. Chest port will be placed in [place] IR tomorrow. - For sedation purposes, please keep NPO prior to procedure. May take PO medicat ions with sips of water. We appreciate being able to participate in this patient's care. Please page with any questions or concerns. Jennifer Choe, MSN,CLAMSHELL OPERATOR Pgr [phone] IR Team Pager [phone] (After-hours and Weekends) Procedure: Bone marrow biopsy and chest port placement IR Pre Procedure Notes: Plan for Left sided chest port. Tunneled HD cath on lef t side Chief Complaint: Lymphoma Previous Anesthetic/Sedation History: Reviewed. History of present illness: Mary Tim is a 69 y.o. female patient with hx of recent lymphoma diagnosis . IR consulted for lumbar puncture and chest port placement. See ROS below for c urrent symptoms Review of Systems Constitutional: negative Respiratory: positive for cough, increased work of breathing. Better on oxygen Gastrointestinal: negative Medications Scheduled Meds:[MAR Hold] allopurinoL (ZYLOPRIM) tablet 100 mg, 100 mg, Oral, QD AY amitriptyline/gabapentin/emu oil(#) 4/4/10 % topical cream, , Topical, Q8H [MAY Hold] amLODIPine (NORVASC) tablet 10 mg, 10 mg, Oral, QDAY [MAY Hold] cyanocobalamin (VITAMIN B-12) tablet 1,000 mcg, 1,000 mcg, Oral, QDAY [MAY Hold] folic acid (FOLVITE) tablet 1 mg, 1 mg, Oral, QDAY [MAY Hold] heparin (porcine) PF syringe 5,000 Units, 5,000 Units, Subcutaneous, Q8H* [MAY Hold] mineral oil/hydrophilic petrolatum (AQUAPHOR, DERMAPHOR) topical oint ment, , Topical, QDAY [MAY Hold] polyethylene glycol 3350 (MIRALAX) packet 34 g, 2 packet, Oral, QDAY [MAY Hold] senna (SENOKOT) tablet 2 tablet, 2 tablet, Oral, QHS [MAY Hold] sodium bicarbonate tablet 650 mg, 650 mg, Oral, BID [MAY Hold] vitamins, multi B, C, Zn & folate (Renal) (NEPHPLEX RX) tablet 1 tablet, 1 tablet, Oral, QDAY Continuous Infusions: PRN and Respiratory Meds:[MAY Hold] bisacodyL QDAY PRN, [MAY Hold] calcium carbo vishal Q6H PRN, hydrALAZINE Q6H PRN, [MAY Hold] HYDROcodone/acetaminophen Q6H PRN, labetalol (NORMODYNE; TRANDATE) injection Q6H PRN, [MAY Hold] melatonin QHS PRN, [MAY Hold] simethicone Q6H PRN, [MAY Hold] vitamin A & D PRN Objective Vital Signs: Last Filed Vital Signs: 24 Fernanda r Range BP: 134/56 (10/02 1099) Temp: 36.9 C (98.4 F) (10/02 1099) Pulse: 94 (10/02 1100) Respirations: 24 PER MINUTE (10/02 1099) SpO2: 92 % (10/02 1230) SpO2 Pulse: 98 (10/02 1230) Height: 162.6 cm (64.02") (10/02 1099) BP: (100-147)/(48-85) Temp: [36.4 C (97.5 F)-36.9 C (98.4 F)] Pulse: [79-98] Respirations: [14 PER MINUTE-26 PER MINUTE] SpO2: [73 %-99 %] Intensity Pain Scale (Self Report): 8 (10/03/19 0020) Vitals: 10/02/19 1626 10/03/19 0750 10/03/19 1100 Weight: 75.1 kg (165 lb 9.1 oz) 72.9 kg (160 lb 11.5 oz) 69.9 kg (154 lb 1.6 oz) Intake/Output Summary: (Last 24 hours) Intake/Output Summary (Last 24 hours) at 10/03/2019 1237 Last data filed at 10/03/2019 1050 Gross per 24 hour Intake 1030 ml Output 4478 ml Net -3448 ml Stool Occurrence: 1 Physical Exam General appearance: alert and no distress Neurologic: Grossly normal, at baseline Lungs: Nonlabored with normal effort Abdomen: soft, non-tender. Extremities: extremities normal, atraumatic, no cyanosis or edema Airway: airway assessment performed Mallampati II (soft palate, uvula, fauces visible) Anesthesia Classification: ASA III (A patient with a severe systemic disease th at limits activity, but is not incapacitating) Pre procedure anxiolysis plan: Midazolam for chest port placement. No pre proced ure meds for lumbar puncture today. Intra-procedural Sedation/Medication Plan: Fentanyl and Midazolam for chest port . Lidocaine for lumbar puncture. Personal history of sedation complications: Denies adverse event. Family history of sedation complications: Denies adverse event. Medications for Reversal: Naloxone and Flumazenil Discussion/Reviews: Physician has discussed risks and alternatives of this type of sedation and above planned procedures with patient NPO Status: Acceptable Status: N/A Lab/Radiology/Other Diagnostic Tests: Labs: Pertinent labs reviewed Radiology: Reviewed. * Jade Fuchs RN - 10/02/2019 11:03 AM CDT Wound Ostomy Note NAME:Mary Tim :1950 AGE: 69 y.o. ADMISSION DATE: 09/17/2019 DAYS ADMITTED: LOS: 14 days Reason for Consult/Visit: pressure injury Stage II or greater Assessment/Plan: Principal Problem: Acute renal failure (ARF) (HCC) Active Problems: Hyperkalemia High anion gap metabolic acidosis UTI (urinary tract infection) Physical debility ILD (interstitial lung disease) (HCC) Anemia Abnormal CT of the chest Abnormal abdominal CT scan Elevated CA 19-9 level Pressure Injury 10/02/19 1054 Right;Inner Buttocks Stage 2 (Active) 10/02/19 1054 Pressure Injury Present On Inpatient Admission: Pressure Injury Orientation: Right;Inner Wound Location: Buttocks Pressure Injury Stages: Stage 2 If this pressure injury is suspected to be device related, please select the dev ice:: Wound Image 10/02/2019 10:00 AM Wound Drainage Amount None 10/02/2019 10:00 AM Wound Base Assessment Moist;Lupus 10/02/2019 10:00 AM Surrounding Skin Assessment Dry;Intact 10/02/2019 10:00 AM Wound Length (cm) 0.5 cm 10/02/2019 10:00 AM Wound Width (cm) 0.5 cm 10/02/2019 10:00 AM Wound Depth (cm) 0.1 cm 10/02/2019 10:00 AM Wound Surface Area (cm^2) 0.25 cm^2 10/02/2019 10:00 AM Wound Volume (cm^3) 0.02 cm^3 10/02/2019 10:00 AM Wound team asked to asses wound on right inner buttock- Lupus moist round ulcerations- manju wound dry and intact RECOMMEND: Continue A&D ointment ( as previously ordered for right buttock ) Wound team will sign off Jade Fuchs RN, BSN, [facility] Wound Ostomy Nursing Consult Service Office: [phone] Pager: [phone] [facility] Unit: [id number] * Bebeto Wagner MD - 10/01/2019 5:36 PM CDT Associated Order(s): CONSULT HEMATOLOGY PHYSICIAN Hematology Consult Note Admission Date: 09/17/2019 LOS: 13 days Principal Problem: Acute renal failure (ARF) (HCC) Active Problems: Hyperkalemia High anion gap metabolic acidosis UTI (urinary tract infection) Physical debility ILD (interstitial lung disease) (HCC) Anemia Abnormal CT of the chest Abnormal abdominal CT scan Elevated CA 19-9 level Reason for Consult: DLBCL appearance on kidney biopsy Consult type: co-mgmt with signed orders Assessment and Plan: Mary Tim is a 69 y.o. female past medical history of hypertension, cervic al and lumbar spinal fusions, presented originally to outside hospital with weak ness, fatigue, and dyspnea, found to be in renal failure now on hemodialysis, in itially worked up for ILD, and found to have significant presacral and retroperi toneal lymphadenopathy as well as bilateral kidney enlargement, found to have pr eliminary findings of diffuse large b cell lymphoma on kidney biopsy per primary team. - I added on a couple of labs including uric acid, LDH, beta-2 microglobulin, he patitis B and C, and HIV. - Will need to do staging PET scan, please go ahead and order this. - Further recs to follow, likely as we get more information- will touch [facility] tomorrow in AM. Bebeto Wagner MD Date: 10/01/2019 PGY 4 Hematology Oncology Available on [facility] Patient seen and staffed with Dr. Kemp History of Present Illness: Mary Tim is a 69 y.o. female past medical history of hypertension, cervic al and lumbar spinal fusions, presented originally to outside hospital with weak ness, fatigue, and dyspnea, found to be in acute renal failure. She was transfe rred to on September 16 for further management. She was started on dialysis, she w as treated for an acute kidney injury, and she underwent work-up of her persiste nt dyspnea and fatigue with chest imaging that showed areas of fibrosis and conc theresa for ILD. She then underwent CT chest which showed a lesion on the liver, and subsequent C T abdomen pelvis showed findings of retroperitoneal lymphadenopathy, presacral l ymphadenopathy, bilateral kidney enlargement, as well as adrenal involvement con cerning for lymphoma. She underwent kidney biopsy on September 29, and per prelim report from primary team, pathology is looking like diffuse large B-cell lymphoma. I attempted to contact pathology a couple times this afternoon to discuss the bi opsy results, but was unable to reach them. Prelim and final path reports not a vailable on [facility]. Patient states prior to her admission to the hospital, she was living alone, fun ctional with regard to her activities of daily living, and able to climb up to 5 steps leading up to her house. Since then she has been significantly more shaneka litated. Likely patient was also either somewhat confused or still partially sedated, as she was pretty sleepy during our conversation, and thought she came to the [facility] only 5 days ago, however she has been here for 2 weeks. She does report significant abdominal pain and tenderness, she reports about a 1 5 pound weight loss in the past month, denies night sweats fevers or chills, den ies rashes leg swelling or significant shortness of breath, although she states she does not normally use or need oxygen. Medical History: Diagnosis Date Back pain with history of spinal surgery Chronic pain Hypertension Surgical History: Procedure Laterality Date BRONCHOSCOPY DIAGNOSTIC WITH CELL WASHING - FLEXIBLE Bilateral 09/27/2019 Performed by Branden Choe MD at [facility] OR BRONCHOSCOPY WITH BRONCHIAL ALVEOLAR LAVAGE - FLEXIBLE Left 09/27/2019 Performed by Branden Choe MD at [facility] OR BRONCHOSCOPY WITH ENDOBRONCHIAL ULTRASOUND GUIDED TRANSTRACHEAL/ TRANSBRONCH IAL SAMPLING - 3 OR MORE MEDIASTINAL/ HILAR LYMPH NODE STATIONS/ STRUCTURE - FLE XIBLE Bilateral 09/27/2019 Performed by Branden Choe MD at [facility] OR BRONCHOSCOPY WITH BRONCHIAL/ ENDOBRONCHIAL BIOPSY - FLEXIBLE Bilateral 2019 Performed by Branden Choe MD at [facility] OR APPENDECTOMY CERVICAL FUSION LUMBAR FUSION TONSILLECTOMY Social History Socioeconomic History Marital status: Spouse name: Not on file Number of children: Not on file Years of education: Not on file Highest education level: Not on file Occupational History Not on file Tobacco Use Smoking status: Former Smoker Last attempt to quit: 09/19/2007 Years since quittin.0 Tobacco comment: quit >10 years ago Substance and Sexual Activity Alcohol use: Not Currently Drug use: Never Sexual activity: Not Currently Other Topics Concern Not on file Social History Narrative Not on file Family History Problem Relation Age of Onset Kidney Failure Mother SLE Father Cancer-Colon Brother Other Sister unknown vasculitis involving lung and kidney Scheduled Meds:amitriptyline/gabapentin/emu oil(#) 4/4/10 % topical cream, , Top ical, Q8H amLODIPine (NORVASC) tablet 10 mg, 10 mg, Oral, QDAY cyanocobalamin (VITAMIN B-12) tablet 1,000 mcg, 1,000 mcg, Oral, QDAY folic acid (FOLVITE) tablet 1 mg, 1 mg, Oral, QDAY heparin (porcine) PF syringe 5,000 Units, 5,000 Units, Subcutaneous, Q8H* [START ON 10/02/2019] polyethylene glycol 3350 (MIRALAX) packet 34 g, 2 packet, O ral, QDAY senna (SENOKOT) tablet 2 tablet, 2 tablet, Oral, QHS sodium bicarbonate tablet 650 mg, 650 mg, Oral, BID sodium chloride 0.9 % infusion, 1,000 mL, Intravenous, ONCE vitamins, multi B, C, Zn & folate (Renal) (NEPHPLEX RX) tablet 1 tablet, 1 tablet, Oral, QDAY Continuous Infusions: PRN and Respiratory Meds:anticoagulant sodium citrate IP Dialysis PRN, bisacodyL QDAY PRN, calcium carbonate Q6H PRN, flumazeniL PRN, flumazeniL PRN, hydrALAZINE Q6H PRN, HYDROcodone/acetaminophen Q6H PRN, labetalol (NORMODYNE; TRANDATE) in jection Q6H PRN, melatonin QHS PRN, naloxone PRN, naloxone PRN, simethicone Q6H PRN, sodium chloride 0.9% (NS) IP Dialysis PRN, sodium chloride 0.9% (NS) IP Ryanne lysis PRN, sodium chloride 0.9% (NS) IP Dialysis PRN, vitamin A & D PRN Allergies: Mobic [meloxicam] Review of Systems: A comprehensive 10 point review of systems was discussed with patient : See HPI for pertinent positive ROS Vital Signs: Last Filed in 24 hours Vital Signs: 24 hour Range BP: 118/55 (09/30 1700) Temp: 36.4 C (97.5 F) (09/30 1400) Pulse: 86 (09/30 1700) Respirations: 23 PER MINUTE (09/30 1700) SpO2: 96 % (09/30 1700) SpO2 Pulse: 86 (09/30 1700) BP: (102-156)/(50-107) Temp: [36.4 C (97.5 F)-36.9 C (98.4 F)] Pulse: [84-109] Respirations: [15 PER MINUTE-23 PER MINUTE] SpO2: [86 %-97 %] Physical Exam: Gen: Alert, Oriented, sleepy. Eyes: Pupils equal, no scleral icterus ENT: slightly dry oropharynx, edentulous Lymph: No palpable cervical, supraclavicular or axillary lymphadenopathy. No pal pable groin LAD CV: s1/ s2, no murmur noted, regular rhythm Pulm: rhonchi bilaterally heard anteriorly. On 3L NC, in no respiratory distress , no acc muscle use. Abd: Soft, non-distended, tender in the lower R and L quadrants, mildly tender d iffusely, no rebound tenderness. Ext: No edema Skin: no bruising, rashes noted Lab/Radiology/Other Diagnostic Tests: Hematology Lab Results Component Value Date/Time WBC 9.6 10/01/2019 03:30 PM RBC 2.38 (L) 10/01/2019 03:30 PM HGB 7.5 (L) 10/01/2019 03:30 PM HCT 21.8 (L) 10/01/2019 03:30 PM MCV 91.8 10/01/2019 03:30 PM MCH 31.6 10/01/2019 03:30 PM MCHC 34.4 10/01/2019 03:30 PM RDW 13.6 10/01/2019 03:30 PM PLTCT 238 10/01/2019 03:30 PM MPV 6.4 (L) 10/01/2019 03:30 PM Lab Results Component Value Date/Time NEUT 77 10/01/2019 06:37 AM ANC 6.42 10/01/2019 06:37 AM LYMA 7 (L) 10/01/2019 06:37 AM ALC 0.55 (L) 10/01/2019 06:37 AM WILLIE 14 (H) 10/01/2019 06:37 AM AMC 1.15 (H) 10/01/2019 06:37 AM EOSA 1 10/01/2019 06:37 AM AEC 0.07 10/01/2019 06:37 AM BASA 1 10/01/2019 06:37 AM ABC 0.05 10/01/2019 06:37 AM Comprehensive Metabolic Profile Lab Results Component Value Date/Time NA 141 10/01/2019 03:30 PM K 5.5 (H) 10/01/2019 03:30 PM CL 103 10/01/2019 03:30 PM CO2 19 (L) 10/01/2019 03:30 PM GAP 19 (H) 10/01/2019 03:30 PM BUN 99 (H) 10/01/2019 03:30 PM CR 8.16 (H) 10/01/2019 03:30 PM GLU 96 10/01/2019 03:30 PM Lab Results Component Value Date/Time CA 9.0 10/01/2019 03:30 PM PO4 6.0 (H) 10/01/2019 06:37 AM ALBUMIN 2.7 (L) 10/01/2019 03:30 PM TOTPROT 5.7 (L) 10/01/2019 03:30 PM ALKPHOS 254 (H) 10/01/2019 03:30 PM AST 17 10/01/2019 03:30 PM ALT 33 10/01/2019 03:30 PM TOTBILI 0.4 10/01/2019 03:30 PM GFR 5 (L) 10/01/2019 03:30 PM GFRAA 6 (L) 10/01/2019 03:30 PM Other pertinent labs and radiology have been reviewed and/or discussed in assess ment/plan Bebeto Wagner MD Associated attestation - Nanette Kemp MD - 10/01/2019 7:08 PM CDT ATTESTATION I personally observed the resident performing the E/M, discussed case with resid ent, and concur with resident documentation of history, physical assessment and treatment plan unless otherwise noted. We'll talk w/ path tomorrow to confirm the DLBCL and assess for Ki-67 and need f or ancillary tumor testing, as well likely BMbx and LP w/ flow and PET to comple te staging, and TTE in anticipation of anthracycline (if not done recently). Staff name: Nanette Kemp MD Date: 10/01/2019 * Bhavin Betts APRN-LULA - 10/01/2019 9:48 AM CDT Associated Order(s): CONSULT INTERVENTIONAL RADIOLOGY PHYSICIAN Interventional Radiology Consult Note with Pre-procedural History and Physical Admission Date: 09/17/2019 LOS: 13 days Principal Problem: Acute renal failure (ARF) (HCC) Active Problems: Hyperkalemia High anion gap metabolic acidosis UTI (urinary tract infection) Physical debility ILD (interstitial lung disease) (HCC) Anemia Abnormal CT of the chest Abnormal abdominal CT scan Elevated CA 19-9 level Reason for consult: Renal Failure Assessment: - Admitted with ROSHAN with unknown etiology and concern for systemic disease - Labs, medications, and allergies meet procedural protocol. - Pt is not on a therapeutic blood thinner - Platelet Count Date Value Ref Range Status 10/01/2019 247 150 - 400 K/UL Final ; INR Date Value Ref Range Status 10/01/2019 1.4 (H) 0.8 - 1.2 Final ; No components found for: CREA; Blood Urea Nitrogen Date Value Ref Range Status 10/01/2019 92 (H) 7 - 25 MG/DL Final Plan: - Will proceed with tunneled dialysis catheter placement - For sedation purposes, please keep NPO prior to procedure. Procedure: Tunneled dialysis catheter placement. IR Pre Procedure Notes: Consent in pre Chief Complaint: ROSHAN Previous Anesthetic/Sedation History: Reviewed. History of present illness: Mary Tim is a 69 y.o. female patient with hx of HTN and cervical (C3-C7 ) and lumbar (L3-L5) spinal fusionswho presentedfor progressively worsening weakness and fatigue and was found to haveAKI,hyperkalemia and anion gap met abolic acidosis IR consulted for renal bx. See ROS below for current symptoms Review of Systems Constitutional: negative Respiratory: negative Gastrointestinal: negative Medications Scheduled Meds:amitriptyline/gabapentin/emu oil(#) 4/4/10 % topical cream, , Top ical, Q8H amLODIPine (NORVASC) tablet 10 mg, 10 mg, Oral, QDAY cyanocobalamin (VITAMIN B-12) tablet 1,000 mcg, 1,000 mcg, Oral, QDAY folic acid (FOLVITE) tablet 1 mg, 1 mg, Oral, QDAY heparin (porcine) PF syringe 5,000 Units, 5,000 Units, Subcutaneous, Q8H* polyethylene glycol 3350 (MIRALAX) packet 17 g, 1 packet, Oral, QDAY senna (SENOKOT) tablet 2 tablet, 2 tablet, Oral, QHS sodium bicarbonate tablet 650 mg, 650 mg, Oral, BID sodium chloride 0.9 % infusion, 1,000 mL, Intravenous, ONCE Continuous Infusions: PRN and Respiratory Meds:anticoagulant sodium citrate IP Dialysis PRN, bisacodyL QDAY PRN, calcium carbonate Q6H PRN, flumazeniL PRN, hydrALAZINE Q6H PRN, HYDRO codone/acetaminophen Q6H PRN, labetalol (NORMODYNE; TRANDATE) injection Q6H PRN, melatonin QHS PRN, naloxone PRN, simethicone Q6H PRN, sodium chloride 0.9% (NS) IP Dialysis PRN, sodium chloride 0.9% (NS) IP Dialysis PRN, sodium chloride 0.9% (NS) IP Dialysis PRN, vitamin A & D PRN Objective Vital Signs: Last Filed Vital Signs: 24 Fernanda r Range BP: 133/58 (09/30 926) Temp: 36.6 C (97.9 F) (09/30 926) Pulse: 97 (09/30 926) Respirations: 18 PER MINUTE (09/30 926) SpO2: 87 % (09/30 926) SpO2 Pulse: 95 (09/29 1215) BP: (109-156)/(48-75) Temp: [36.5 C (97.7 F)-36.8 C (98.3 F)] Pulse: [78-99] Respirations: [14 PER MINUTE-26 PER MINUTE] SpO2: [87 %-99 %] Intensity Pain Scale (Self Report): 8 (10/01/19 0904) Vitals: 09/17/19 2350 09/19/19 1411 Weight: 77 kg (169 lb 12.1 oz) 76.7 kg (169 lb) Intake/Output Summary: (Last 24 hours) Intake/Output Summary (Last 24 hours) at 10/01/2019 0948 Last data filed at 10/01/2019 0532 Gross per 24 hour Intake 0 ml Output 300 ml Net -300 ml Stool Occurrence: 0 Physical Exam General appearance: alert and no distress Neurologic: Grossly normal, at baseline Lungs: Nonlabored with normal effort Abdomen: soft, non-tender. Extremities: extremities normal, Airway: airway assessment performed Mallampati III (soft palate, base of uvula visible) Anesthesia Classification: ASA III (A patient with a severe systemic disease th at limits activity, but is not incapacitating) Pre procedure anxiolysis plan: Midazolam Intra-procedural Sedation/Medication Plan: Fentanyl, Lidocaine, and Midazolam Personal history of sedation complications: Denies adverse event. Family history of sedation complications: Denies adverse event. Medications for Reversal: Naloxone and Flumazenil Discussion/Reviews: Physician has discussed risks and alternatives of this type of sedation and above planned procedures with patient NPO Status: Acceptable Status: Not Lab/Radiology/Other Diagnostic Tests: Labs: Hematology: Lab Results Component Value Date HGB 7.7 10/01/2019 HCT 22.6 10/01/2019 PLTCT 247 10/01/2019 WBC 8.2 10/01/2019 NEUT 77 10/01/2019 ANC 6.42 10/01/2019 ALC 0.55 10/01/2019 WILLIE 14 10/01/2019 AMC 1.15 10/01/2019 ABC 0.05 10/01/2019 MCV 91.9 10/01/2019 MCHC 34.1 10/01/2019 MPV 6.6 10/01/2019 RDW 13.7 10/01/2019 , Coagulation: Lab Results Component Value Date PTT 27.5 09/18/2019 INR 1.4 10/01/2019 and General Chemistry: Lab Results Component Value Date NA 141 10/01/2019 K 5.4 10/01/2019 CL 104 10/01/2019 GAP 18 10/01/2019 BUN 92 10/01/2019 CR 7.99 10/01/2019 GLU 81 10/01/2019 CA 9.1 10/01/2019 ALBUMIN 2.8 09/25/2019 LACTIC 2.1 09/27/2019 MG 2.0 10/01/2019 TOTBILI 0.3 09/25/2019 Radiology: Reviewed. We appreciate being able to participate in this patient's care. Please page with any questions or concerns. Bhavin I [place], [employer] OPERATOR-BOARD SETTER Pgr [phone] IR Team Pager [phone] (After-hours and Weekends) * Jade Fuchs RN - 09/30/2019 3:04 PM CDT Associated Order(s): CONSULT WOUND/OSTOMY TEAM NURSE Wound Ostomy Note NAME:Mary Tim :1950 AGE: 69 y.o. ADMISSION DATE: 09/17/2019 DAYS ADMITTED: LOS: 12 days Reason for Consult/Visit: pressure injury Stage II or greater Assessment/Plan: Principal Problem: Acute renal failure (ARF) (HCC) Active Problems: Hyperkalemia High anion gap metabolic acidosis UTI (urinary tract infection) Physical debility ILD (interstitial lung disease) (HCC) Anemia Abnormal CT of the chest Abnormal abdominal CT scan Elevated CA 19-9 level Pressure Injury 09/30/19 1455 Left Buttocks Stage 3 (Active) 09/30/19 1455 Pressure Injury Present On Inpatient Admission: Pressure Injury Orientation: Left Wound Location: Buttocks Pressure Injury Stages: Stage 3 If this pressure injury is suspected to be device related, please select the dev ice:: Wound Image 09/30/2019 2:00 PM Wound Drainage Amount Scant 09/30/2019 2:00 PM Wound Base Assessment Pale Lupus;Yellow 09/30/2019 2:00 PM Surrounding Skin Assessment Intact 09/30/2019 2:00 PM Wound Length (cm) 0.5 cm 09/30/2019 2:00 PM Wound Width (cm) 0.8 cm 09/30/2019 2:00 PM Wound Depth (cm) 0.1 cm 09/30/2019 2:00 PM Wound Surface Area (cm^2) 0.4 cm^2 09/30/2019 2:00 PM Wound Volume (cm^3) 0.04 cm^3 09/30/2019 2:00 PM 69 yo F with PMH of HTN, cervical and lumbar spinal fusions, reported RA who i s admitted withacute renal failure, found to have abnormal chest CT findings c oncerning for possible ILD versus sarcoidosis. Wound team consulted for " Stage II pressure ulcer present on buttocks " Pt was seen previously for MASD to inner buttocks Pt now with round defined ulceration to the left buttock. Wound is pale pink/ y ellow- scant drainage. PLAN: Left buttock- Clean with saline and gauze- apply thick layer of Vitamin A&D ointment over wound base, cover with Biatain foam dressing. Apply ointment BID- change foam Every other day and if soiled ---Wound care and maintenance orders placed per skin integrity protocol.--- Wound team will sign off Jade Fuchs RN, BSN, [facility] Wound Ostomy Nursing Consult Service Office: [phone] Pager: [phone] [facility] Unit: [id number] * Bhavin Betts APRN-BOARD SETTER - 09/29/2019 2:30 PM CDT Associated Order(s): CONSULT INTERVENTIONAL RADIOLOGY PHYSICIAN Interventional Radiology Consult Note with Pre-procedural History and Physical Admission Date: 09/17/2019 LOS: 11 days Principal Problem: Acute renal failure (ARF) (HCC) Active Problems: Hyperkalemia High anion gap metabolic acidosis UTI (urinary tract infection) Physical debility ILD (interstitial lung disease) (HCC) Anemia Abnormal CT of the chest Abnormal abdominal CT scan Elevated CA 19-9 level Reason for consult: Evaluation for renal biopsy Assessment: - Admitted with ROSHAN with unknown etiology and concern for systemic disease - Review of imaging significant for Abnormalities involving the liver, gallbladd er, kidneys, right adrenal gland and retroperitoneum. Leading consideration is l ymphoma. Mild diffuse enlargement of the kidneys with ill-defined soft tissue thickening in the renal pelves and asymmetric perinephric stranding - Labs, medications, and allergies meet procedural protocol. - Pt is on a therapeutic blood thinner; SC heparin to be held 6hr pre and 8hrs post intervention - Platelet Count Date Value Ref Range Status 09/29/2019 222 150 - 400 K/UL Final ; INR Date Value Ref Range Status 09/18/2019 1.4 (H) 0.8 - 1.2 Final Plan: - This case has been reviewed and added onto the [facility] IR schedule for 09/30/19. - For sedation purposes, please keep NPO prior to procedure. May take PO medicat ions with sips of water. We appreciate being able to participate in this patient's care. Please page with any questions or concerns. Bhavin Betts, [employer]HE[employer] OPERATOR-BOARD SETTER Pgr [phone] IR Team Pager [phone] (After-hours and Weekends) Procedure: US guided [place] renal Bx IR Pre Procedure Notes: Consent in pre folder Chief Complaint: ROSHAN Previous Anesthetic/Sedation History: Reviewed. History of present illness: Mary Tim is a 69 y.o. female patient with hx of HTN and cervical (C3-C7 ) and lumbar (L3-L5) spinal fusionswho presentedfor progressively worsening weakness and fatigue and was found to have ROSHAN, hyperkalemia and anion gap metab olic acidosis IR consulted for renal bx. See ROS below for current symptoms Review of Systems Constitutional: negative for fevers, chills and sweats Respiratory: negative for increased work of breathing Gastrointestinal: negative for nausea and vomiting Medications Scheduled Meds:amitriptyline/gabapentin/emu oil(#) 4/4/10 % topical cream, , Top ical, Q8H [START ON 09/30/2019] amLODIPine (NORVASC) tablet 10 mg, 10 mg, Oral, QDAY cyanocobalamin (VITAMIN B-12) tablet 1,000 mcg, 1,000 mcg, Oral, QDAY folic acid (FOLVITE) tablet 1 mg, 1 mg, Oral, QDAY heparin (porcine) PF syringe 5,000 Units, 5,000 Units, Subcutaneous, Q8H* polyethylene glycol 3350 (MIRALAX) packet 17 g, 1 packet, Oral, QDAY senna (SENOKOT) tablet 2 tablet, 2 tablet, Oral, QHS sodium bicarbonate tablet 650 mg, 650 mg, Oral, BID Continuous Infusions: PRN and Respiratory Meds:bisacodyL QDAY PRN, calcium carbonate Q6H PRN, hydrALAZ INE Q6H PRN, HYDROcodone/acetaminophen Q6H PRN, labetalol (NORMODYNE; TRANDATE) injection Q6H PRN, melatonin QHS PRN, simethicone Q6H PRN Objective Vital Signs: Last Filed Vital Signs: 24 Fernanda r Range BP: 157/65 (09/28 1420) Temp: 36.8 C (98.2 F) (09/28 1420) Pulse: 99 (09/28 1420) Respirations: 20 PER MINUTE (09/28 1420) SpO2: 93 % (09/28 1420) BP: (146-157)/(65-73) Temp: [36.6 C (97.8 F)-37.1 C (98.8 F)] Pulse: [84-100] Respirations: [18 PER MINUTE-20 PER MINUTE] SpO2: [87 %-97 %] Intensity Pain Scale (Self Report): 8 (09/29/19 0800) Vitals: 09/17/19 2350 09/19/19 1411 Weight: 77 kg (169 lb 12.1 oz) 76.7 kg (169 lb) Intake/Output Summary: (Last 24 hours) Intake/Output Summary (Last 24 hours) at 09/29/2019 1431 Last data filed at 09/29/2019 1421 Gross per 24 hour Intake 1575 ml Output 975 ml Net 600 ml Stool Occurrence: 0 Physical Exam General appearance: alert and no distress Neurologic: Grossly normal, at baseline Lungs: Nonlabored with normal effort Abdomen: soft, non-tender. Extremities: extremities normal, atraumatic Airway: airway assessment performed Mallampati III (soft palate, base of uvula visible) Anesthesia Classification: ASA III (A patient with a severe systemic disease th at limits activity, but is not incapacitating) Pre procedure anxiolysis plan: Midazolam Intra-procedural Sedation/Medication Plan: Fentanyl, Lidocaine and Midazolam Personal history of sedation complications: Denies adverse event. Family history of sedation complications: Denies adverse event. Medications for Reversal: Naloxone and Flumazenil Discussion/Reviews: Physician has discussed risks and alternatives of this type of sedation and above planned procedures with patient NPO Status: Acceptable Status: Not Lab/Radiology/Other Diagnostic Tests: Labs: Hematology: Lab Results Component Value Date HGB 8.3 09/29/2019 HCT 24.6 09/29/2019 PLTCT 222 09/29/2019 WBC 6.5 09/29/2019 NEUT 75 09/29/2019 ANC 4.90 09/29/2019 ALC 0.37 09/29/2019 WILLIE 15 09/29/2019 AMC 0.97 09/29/2019 ABC 0.06 09/29/2019 MCV 91.5 09/29/2019 MCHC 33.8 09/29/2019 MPV 6.6 09/29/2019 RDW 13.7 09/29/2019 , Coagulation: Lab Results Component Value Date PTT 27.5 09/18/2019 INR 1.4 09/18/2019 and General Chemistry: Lab Results Component Value Date NA 139 09/29/2019 K 4.9 09/29/2019 CL 103 09/29/2019 GAP 15 09/29/2019 BUN 79 09/29/2019 CR 6.57 09/29/2019 GLU 85 09/29/2019 CA 9.1 09/29/2019 ALBUMIN 2.8 09/25/2019 LACTIC 2.1 09/27/2019 MG 1.9 09/29/2019 TOTBILI 0.3 09/25/2019 Radiology: Reviewed. * Jamie Sapp MD - 09/26/2019 3:08 PM CDT Associated Order(s): CONSULT GASTROENTEROLOGY PHYSICIAN Gastroenterology Consult Note Patient Name:Mary Tim Admission Date: 09/17/2019 11:59 PM Reason for consult: "Dilated gallbladder and dilated main pancreatic duct concern for stone .pleas e evaluate for EUS/ERCP" Assessment: Mary Tim is a 69 y.o. female with history of cervical (C3-C7) and lumbar (L3-L5) spinal fusionswho presentedfor progressively worsening weakness and fatigue, as well as nausea and dry heaving and was found to have acute renal fidelia lure 2/[address] imaging that shows dilated gallbladder with mild pericholecystic fluid and possible PD stone with PD dilation. Mid abdominal pain Abnormal CT findings Aminotransferases and Tbili WNL, mild lipase elevation (no pancreatitis) CT AP w/o contrast 09/25: Liver is mildly enlarged. There are several hypodense hepatic lesions scattered throughout both lobes, the largest of which is posteriorly within hepatic segment 6 (series 3 image 24) measuring 18 mm. There is diffuse enlargement of the gallbladder measuring up to 5 cm with mild associated pericholecystic stranding. No calcified gallstones are present. Moderate diffuse atrophy of the pancreas. The junction of the pancreatic body and tail is slightly lower in attenuation than the remainder of the pancreas (series 3 image 26). At the medial aspect of this abnormal tissue is a sub-5 mm calculus. Mild retroperitoneal lymphadenopathy. Recommendations: May consider EUS tomorrow given the patient won't be able to follow up after dis charge. Her symptoms may not be associated with the finding of the PD stone. How ever, there is concern for lymphoma given hepatomegaly, kidney enlargement and m ild retroperitoneal LAD. NPO pMN. Patient seen and discussed with attending on service, Dr. Sapp. Moi Cates MD Gastroenterology & Hepatology Fellow Pager [phone] HPI/Subjective: Mary Tim is a 69 y.o. female with history of cervical (C3-C7) and lumbar (L3-L5) spinal fusionswho presentedfor progressively worsening weakness and fatigue, as well as nausea and dry heaving and was found to have acute renal fidelia lure 2/2 ATN. She has been seen by nephrology and is now stable with her current creatinine an d slowly recovering. She will not require HD. She also reports longstanding diffuse mid abdominal pain (crampy in sensation) t hat radiates to her entire abdomen, not associated with food intake or positioni ng. She reports daily BMs without straining or diarrhea, hematochezia or melena. She was able to tolerate a full breakfast and lunch today. She reports smoking history (quit 10 yrs ago), denies any history of significant EtOH use, denies any recreational drug use. No FHx of GI cancers, pancreatitis or other issues. She also denies any personal history of liver or pancreatic disease. PMH: Medical History: Diagnosis Date Back pain with history of spinal surgery Chronic pain Hypertension Surgical History: Procedure Laterality Date APPENDECTOMY CERVICAL FUSION LUMBAR FUSION TONSILLECTOMY Social History Socioeconomic History Marital status: Spouse name: Not on file Number of children: Not on file Years of education: Not on file Highest education level: Not on file Occupational History Not on file Tobacco Use Smoking status: Former Smoker Last attempt to quit: 09/19/2007 Years since quittin.0 Tobacco comment: quit >10 years ago Substance and Sexual Activity Alcohol use: Not Currently Drug use: Never Sexual activity: Not Currently Other Topics Concern Not on file Social History Narrative Not on file Family History Problem Relation Age of Onset Kidney Failure Mother SLE Father Cancer-Colon Brother Other Sister unknown vasculitis involving lung and kidney Current medications: No current facility-administered medications on file prior to encounter. Current Outpatient Medications on File Prior to Encounter Medication Sig Dispense Refill calcium carbonate (TUMS) 500 mg (200 mg elemental calcium) chewable tablet C hew 500-1,000 mg by mouth every 6 hours as needed. enalapril (VASOTEC) 10 mg tablet Take 5 mg by mouth daily. hydroCHLOROthiazide (HYDRODIURIL) 25 mg tablet Take 25 mg by mouth every mor norman. HYDROcodone/acetaminophen (NORCO) 10/325 mg tablet Take 1 tablet by mouth ev nicole 6 hours as needed for Pain potassium chloride SR (K-DUR) 10 mEq tablet Take 10 mEq by mouth twice daily . Take with a meal and a full glass of water. Review of Systems: General: No fevers, chills, weight loss or gain, B-symptoms. Oropharynx: No lesion, ulcer. Neck: No pain or decreased ROM. Pulm: No dyspnea, cough. CV: No palpitations, no chest pain. Abdomen: No abdominal pain, brown stool, no changes in bowel habits. Extremities: No swelling, no deformity. Heme: No for easy bleeding or bruising. Neuro: No lightheadedness/dizziness, no LOC. Skin: No rashes, no jaundice. Please see HPI for additional pertinent documentation Physical Exam: Vitals: 09/26/19 0446 09/26/19 0532 09/26/19 0729 09/26/19 1137 BP: (!) 169/71 (!) 161/70 139/61 (!) 151/63 BP Source: Arm, Right Upper Arm, Left Upper Arm, Right Upper Pulse: 83 72 73 Temp: 36.8 C (98.2 F) 36.6 C (97.9 F) 36.5 C (97.7 F) SpO2: 94% 94% 96% Weight: Height: General - Alert and oriented, no acute distress. Head - Normocephalic, atraumatic. Eyes - EOMI grossly. No icterus or injection. Oropharynx- No ulcer or bleeding, moist mucosa. Neck - No swelling or tracheal deviation. Pulmonary/Chest - Normal effort, normal breath sounds. CV - Normal rate, regular rhythm, normal heart sounds and intact distal pulses. Abd - ND, soft, Non-TTP. No hepatospenomegaly. Normal bowel sounds. No masses pa lpable. Extremities - Warm, dry. Skin - No exposed rash, lesion. Neurological - AAOx4, No gross deficit Labs/Imaging: Pertient labs/imaging were reviewed on initiation of progress note. 24-hour labs: Results for orders placed or performed during the hospital encounter of 09/17/19 (from the past 24 hour(s)) ANTI-NUCLEAR ANTIBODY(VIV) Collection Time: 09/25/19 3:46 PM Result Value Ref Range VIV Screen <80 <80 TITER RHEUMATOID FACTOR (RF) Collection Time: 09/25/19 3:46 PM Result Value Ref Range Rheum Factor Screen 13 <25 IU/mL HAPTOGLOBIN Collection Time: 09/25/19 3:46 PM Result Value Ref Range Haptoglobin 339 (H) 16 - 200 MG/DL ANGIOTENSIN CONV ENZYME (CECE) Collection Time: 09/25/19 3:46 PM Result Value Ref Range Angiotensin Convert Enzyme 18 ANTI-DNA DOUBLE STRAND Collection Time: 09/25/19 3:46 PM Result Value Ref Range DNA Double Strand AB <10 <10 TITER CCP IGG ANTIBODY Collection Time: 09/25/19 5:15 PM Result Value Ref Range CCP IgG Antibody <0.5 <3.0 [IU]/mL ANTI SSA ANTI SSB AB Collection Time: 09/25/19 5:15 PM Result Value Ref Range Anti-SSA <0.2 <1.0 AI Anti-SSB <0.2 <1.0 AI CREATINE KINASE-CPK Collection Time: 09/25/19 5:15 PM Result Value Ref Range Creatine Kinase 31 21 - 215 U/L IMMUNOGLOBULINS-IGA,IGG,IGM Collection Time: 09/25/19 5:15 PM Result Value Ref Range IgG 707 (L) 762 - 1,488 MG/DL IgA 110 70 - 390 MG/DL IgM 60 38 - 328 MG/DL MPO/PR3 W REFLEX TO ANCA Collection Time: 09/25/19 5:15 PM Result Value Ref Range Myeloperoxidase AB <0.2 <1.0 AI Serine Protease3 AB <0.2 <1.0 AI JOJO 1 ANTIBODIES Collection Time: 09/25/19 5:15 PM Result Value Ref Range Jojo 1 Antibody <0.2 <1.0 AI CARDIOLIPIN AB IGG/IGM Collection Time: 09/25/19 5:15 PM Result Value Ref Range Cardiolipin, IgG <1.6 <20.0 GPL/ML Cardiolipin, IgM 1.2 <20.0 MPL/ML SCL 70 ANTIBODIES Collection Time: 09/25/19 5:15 PM Result Value Ref Range SCL70 Ab <0.2 <1.0 AI CALCIUM-URINE RANDOM Collection Time: 09/25/19 9:25 PM Result Value Ref Range Calcium-Urine,Random 0.7 MG/DL BASIC METABOLIC PANEL Collection Time: 09/26/19 11:26 AM Result Value Ref Range Sodium 135 (L) 137 - 147 MMOL/L Potassium 4.0 3.5 - 5.1 MMOL/L Chloride 97 (L) 98 - 110 MMOL/L CO2 21 21 - 30 MMOL/L Anion Gap 17 (H) 3 - 12 Glucose 88 70 - 100 MG/DL Blood Urea Nitrogen 87 (H) 7 - 25 MG/DL Creatinine 6.33 (H) 0.4 - 1.00 MG/DL Calcium 9.2 8.5 - 10.6 MG/DL eGFR Non 7 (L) >60 mL/min eGFR 8 (L) >60 mL/min CBC Collection Time: 09/26/19 11:26 AM Result Value Ref Range White Blood Cells 6.5 4.5 - 11.0 K/UL RBC 3.22 (L) 4.0 - 5.0 M/UL Hemoglobin 10.1 (L) 12.0 - 15.0 GM/DL Hematocrit 28.8 (L) 36 - 45 % MCV 89.5 80 - 100 FL MCH 31.4 26 - 34 PG MCHC 35.1 32.0 - 36.0 G/DL RDW 13.1 11 - 15 % Platelet Count 232 150 - 400 K/UL MPV 6.7 (L) 7 - 11 FL LIPASE Collection Time: 09/26/19 11:26 AM Result Value Ref Range Lipase 118 (H) 11 - 82 U/L Ms. Tim is a 69 years old female presented with fatigue and weigh loss and A KI. Her imaging sowed liver lesions and dilation of PD wit PD stone. Pt has no abdominal pain and the finding of PD stone is incidental . Plan: Need to further evaluate liver lesion and PD stones. Plan. Ca 19-9 AFP EIS tomorrow ATTESTATION I personally performed the ruiz portions of the E/M visit, discussed case with re sident and concur with resident documentation of history, physical exam, assessm ent, and treatment plan unless otherwise noted. Staff name: Jamie Sapp MD Date: 09/26/2019 * Delphine Galvan DO - 09/25/2019 12:36 PM CDT Associated Order(s): CONSULT PULMONARY/CRITICAL CARE PHYSICIAN Pulmonary Consult Note Admission Date: 09/17/2019 LOS: 7 Principal Problem: Acute renal failure (ARF) (HCC) Active Problems: Hyperkalemia High anion gap metabolic acidosis UTI (urinary tract infection) Physical debility ILD (interstitial lung disease) (HCC) Anemia Reason for Consult: "admitted with fatigue, weinberg and ARF. ct chest concerning fo r ILD/sarcoidosis. pls assist in further management." Consult type: Opinion with orders Impression 69 yo F with PMH of HTN, cervical and lumbar spinal fusions, reported RA who is admitted with acute renal failure, found to have abnormal chest CT findings conc erning for possible ILD versus sarcoidosis. Abnormal chest CT -Patchy interstitial opacities associated with airways, suspicious for sarcoidos is, hypersensitivity pneumonitis also in differential -She is without cough, reports dyspnea 2 to 3 days prior to admission that resol rufus on day 2 of admission. -Family history of autoimmune disorders -father with SLE, sister with an unknown vasculitis involving the lungs and kidneys Recommendations > ILD labs and urine calcium ordered > We will obtain a complete PFTs to further evaluate lung function (ordered) > We will attempt to get imaging from hospital in [facility], she reports chest x-ray on presentation on 09/[address] a CT chest approximately 5 years ago. > May consider bronchoscopy with biopsy depending on PFTs and review of outside imaging Patient seen and recommendations have been formulated with Dr. Estrada. Please s ee attestation for possible additional recommendations. Delphine Galvan DO Internal Medicine Resident | PGY-2 Pager [phone] or Voalte Me History of Present Illness: Mary Tim is a 69 y.o. female with past medica l history of hypertension, cervical C3-C7 and lumbar L3-L5 spinal fusions, prese nted to an OSH with progressive weakness, fatigue, dyspnea and was found to have acute renal failure with hyperkalemia, hyperphosphatemia, anion gap metabolic a cidosis. She was transferred to [facility] on 09/17/2019. Renal function has slowly im proved during admission, she is currently being treated for UTI with Rocephin, t liuza is day 6 of . With persistent dyspnea and fatigue, chest imaging was obta ined which showed areas of fibrosis and concern for possible ILD versus sarcoido sis. She reports that she has had progressive weakness since January 2019, it acutel y became worse over the last month prior to admission. She has repeatedly seen her primary care physician for dizziness, reports that she did a trial of physic al therapy for presumed vertigo. She had 2 to 3 days of dyspnea prior to admiss ion that resolved approximate day 2. She denies history of cough, has not had a ny recent fever or chills. She reports that she has been ambulating the [facility] physical therapy and denies dyspnea. She does have a family history of autoimmune disease, she reports personal histo ry of RA, father had lupus, sister has a vasculitis involving the lungs and kid neys that she does not know the name of. She is a former smoker, she has a 64-p ack-year history, reporting quitting 12 years ago. She lives in a trailer that she ran states was built in 1947, she has 2 dogs, no recent travel. She did nelia e abroad in [place] for 3 years and traveled throughout [place]. 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 She reports she has had no known occupational exposures, and reports she has never had to leave work due to shortness of breat h. She denies history of peripheral neuropathy or sicca symptoms. Medical History: Diagnosis Date Back pain with history of spinal surgery Chronic pain Hypertension Surgical History: Procedure Laterality Date APPENDECTOMY CERVICAL FUSION LUMBAR FUSION TONSILLECTOMY Social History Socioeconomic History Marital status: Spouse name: Not on file Number of children: Not on file Years of education: Not on file Highest education level: Not on file Occupational History Not on file Tobacco Use Smoking status: Former Smoker Last attempt to quit: 09/19/2007 Years since quittin.0 Tobacco comment: quit >10 years ago Substance and Sexual Activity Alcohol use: Not Currently Drug use: Never Sexual activity: Not Currently Other Topics Concern Not on file Social History Narrative Not on file Family History Problem Relation Age of Onset Kidney Failure Mother SLE Father Cancer-Colon Brother Other Sister unknown vasculitis involving lung and kidney Allergies: Allergies Allergen Reactions Mobic [Meloxicam] SWOLLEN TONGUE Scheduled Meds: MEDSamitriptyline/gabapentin/emu oil(#), , Topical, Q8H cefTRIAXone (ROCEPHIN) IV, 1 g, Intravenous, Q24H* cyanocobalamin, 1,000 mcg, Oral, QDAY folic acid, 1 mg, Oral, QDAY heparin (porcine), 5,000 Units, Subcutaneous, Q8H* polyethylene glycol 3350, 1 packet, Oral, QDAY senna, 2 tablet, Oral, QHS IV MEDS Prn bisacodyL QDAY PRN, calcium carbonate Q6H PRN 1,000 mg at 09/19/19 2327, hydrALAZINE Q6H PRN, HYDROcodone/acetaminophen Q6H PRN 1 tablet at 1253, melatonin QHS PRN 5 mg at 09/24/19 2205, simethicone Q6H PRN 80 mg at 0 09/24/19 2205 HOME MEDS Medications Prior to Admission Medication Sig calcium carbonate (TUMS) 500 mg (200 mg elemental calcium) chewable tablet C hew 500-1,000 mg by mouth every 6 hours as needed. enalapril (VASOTEC) 10 mg tablet Take 5 mg by mouth daily. hydroCHLOROthiazide (HYDRODIURIL) 25 mg tablet Take 25 mg by mouth every mor norman. HYDROcodone/acetaminophen (NORCO) 10/325 mg tablet Take 1 tablet by mouth ev nicole 6 hours as needed for Pain potassium chloride SR (K-DUR) 10 mEq tablet Take 10 mEq by mouth twice daily . Take with a meal and a full glass of water. Review of Systems: 14 point ROS performed and negative with exception of weakness Vital Signs: Last Filed In 24 Hours Vital Signs: 24 Hour Range BP: 151/81 (09/24 1613) Temp: 36.9 C (98.4 F) (09/24 1613) Pulse: 68 (09/24 1425) Respirations: 17 PER MINUTE (09/24 1425) SpO2: 97 % (09/24 1425) SpO2 Pulse: 73 (09/24 1336) BP: (106-157)/(66-91) Temp: [35.8 C (96.5 F)-37.1 C (98.8 F)] Pulse: [68-87] Respirations: [17 PER MINUTE-24 PER MINUTE] SpO2: [95 %-97 %] Physical Exam: General: alert and oriented, cooperative and no distress Head: normocephalic, atraumatic, without obvious abnormality Eyes:?conjunctivae/corneas clear. PERRL, EOM's intact Throat: dentures in place, dry mucosa, lips normal Neck: supple, symmetrical, trachea midline Back: symmetric, no curvature. ROM normal. No CVA tenderness. Lungs: crackles over right middle lung adan, otherwise no wheezes or rhonchi Heart: regular rate and rhythm, S1, S2 normal, no murmur, click, rub or gallop Abdomen:?bowel sounds present, nontender, no organomegaly Extremities: bony changes involving DIPs bilateral hands, pulses palpable, no pe shae edema or skin lesions Neurologic: grossly normal, alert and oriented X 3 Lab/Radiology/Other Diagnostic Tests: Recent Labs 09/23/19 0537 09/24/19 0630 09/25/19 0400 NA 135* 134* 136* K 3.9 4.0 4.0 CL 97* 97* 101 CO2 22 22 23 GAP 16* 15* 12 BUN 89* 88* 86* CR 6.02* 5.93* 5.99* GLU 87 89 79 CA 8.9 8.6 8.4* ALBUMIN 3.0* 2.8* 2.8* Recent Labs 09/23/19 0537 09/24/19 0630 09/25/19 0400 WBC 7.0 6.9 5.7 HGB 8.3* 7.6* 6.7* HCT 23.7* 22.3* 19.6* PLTCT 232 217 175 AST 18 16 14 ALT 14 14 11 ALKPHOS 107 98 92 Estimated Creatinine Clearance: 8.9 mL/min (A) (based on SCr of 5.99 mg/dL (H)). Vitals: 09/17/19 2350 09/19/19 1411 Weight: 77 kg (169 lb 12.1 oz) 76.7 kg (169 lb) No results for input(s): PHART, PO2ART in the last 72 hours. Invalid input(s): PC02A Pertinent radiology reviewed. Associated attestation - Sanjay Estrada MD - 09/25/2019 11:38 PM CDT ATTESTATION I personally performed the ruiz portions of the E/M visit and reviewed laboratory and radiological findings, discussed case with the resident and concur with Dr. Galvan's documentation of history, physical exam, assessment and treatment pl an. Where appropriate, addendums have been made to the note. Patient with acute renal failure and radiological changes suggestive of sarcoid vs HP. Will f/u labs and discuss possible need of bronchoscopy and further testi ng based on lab results. Sanjay Estrada MD 09/25/2019 * Mary Treviño RN - 09/24/2019 12:20 PM CDT Associated Order(s): CONSULT WOUND/OSTOMY TEAM NURSE Wound Ostomy Note NAME:Mary Tim :1950 AGE: 69 y.o. ADMISSION DATE: 09/17/2019 DAYS ADMITTED: LOS: 6 days Reason for Consult/Visit: pressure injury Stage II or greater Assessment/Plan: Principal Problem: Acute renal failure (ARF) (HCC) Active Problems: Hyperkalemia High anion gap metabolic acidosis UTI (urinary tract infection) Wounds (NOT for Pressure Injuries) 09/24/19 1217 Buttocks Moisture Associated Sk in Damage (Active) 09/24/19 1217 Buttocks Wound Orientation: Wound Type: Moisture Associated Skin Damage Wound Type:: Wound Description (Comments): Wound Image 09/24/2019 12:00 PM Wound Base Assessment Lupus;Dry 09/24/2019 12:00 PM Surrounding Skin Assessment Lupus;Intact 09/24/2019 12:00 PM Wound Site Closure Open to Air 09/24/2019 12:00 PM Wound Drainage Amount None 09/24/2019 12:00 PM Wound Dressing Status Open to Air 09/24/2019 12:00 PM Wound Length (cm) 1.5 cm 09/24/2019 12:00 PM Wound Width (cm) 5 cm 09/24/2019 12:00 PM Wound Depth (cm) 0.1 cm 09/24/2019 12:00 PM Wound Surface Area (cm^2) 7.5 cm^2 09/24/2019 12:00 PM Wound Volume (cm^3) 0.75 cm^3 09/24/2019 12:00 PM Number of days: 0 Pt has pink crusty areas on her buttocks, but all of this area blanches. She sa id that she normally wears briefs and gets small areas on her buttocks on and of f. RECOMMEND: Buttocks: Apply barrier cream BID and PRN Our service will sign off at this time. Please place new consult if affected are a does not improve despite consistent implementation of recommendations listed a mariano. Thank you. John Treviño RN, BSN, CHRN, [facility] Wound/Ostomy Nursing Consult Service Hyperbaric Medicine Office: [phone] After Hours Wound/Ostomy Team Pager: [phone] * Noble Perez MD - 09/18/2019 3:31 PM CDT Associated Order(s): CONSULT NEPHROLOGY PHYSICIAN Renal Consult Mary Tim Admission Date: 09/17/2019 Assessment and Plan Principal Problem: Acute renal failure (ARF) (HCC) Active Problems: Hyperkalemia High anion gap metabolic acidosis Mary Tim is a 69 y.o. female 1. ROSHAN - Most likely etiology seems prerenal azotemia from volume contraction based on the history. CECE and HCTZ probably exacerbate it. She could have some underlyi ng ATN as well but no clear additional insults. - Urine lytes not necessarily consistent, but she had already received IVF prior to the sample. Low grade proteinuria by spot sample - Urinalysis did have dipstick proteinuria and hematuria which could be from eit her the ROSHAN or underlying CKD - Doubt the hydronephrosis on renal sonogram is significant 2. Metabolic Acidosis - Mixed gap/nongap, probably from renal failure - Appropriately receiving IV isotonic sodium bicarbonate to at least partially c orrect the pretty severe acidosis and volume expand. 3. Hyperkalemia - Likely due to ROSHAN - Has normalized after volume expansion and shifting. - Follow response to volume expansion and correction of the acidosis Recommend: - Continue the volume expansion with isotonic sodium bicarbonate as ordered - Serial chemistry, suggest q8 hr. - Accurate I/O and daily weights - Avoid nephrotoxins Noble Perez MD Pager [phone] History Reason for Consult: ROSHAN HPI: Mary Tim is a 69 y.o. female with a several month history of worseni ng fatigue and especially so over the last several weeks. She says she has been too weak to make herself meals. She does think she has been drinking pretty we ll, or trying to. She may have modest underlying CKD; the serum creatinine baseline is said to be 1.3 mg/dl. Renal sonogram shows mild left hydronephrosis. Serum creatinine was 7.8 mg/dl at the outside hospital in [place]. With some volume expansion the renal function is a bit better; serum creatinine down to 6.99 mg/dl. She has been on CECE and HCTZ. Denies NSAID use Past Medical History Medical History: Diagnosis Date Back pain with history of spinal surgery Chronic pain Hypertension Surgical History: Procedure Laterality Date APPENDECTOMY CERVICAL FUSION LUMBAR FUSION TONSILLECTOMY Family History Family History Problem Relation Age of Onset Kidney Failure Mother SLE Father Cancer-Colon Brother Social History Social History Socioeconomic History Marital status: Spouse name: Not on file Number of children: Not on file Years of education: Not on file Highest education level: Not on file Occupational History Not on file Tobacco Use Smoking status: Former Smoker Tobacco comment: quit >10 years ago Substance and Sexual Activity Alcohol use: Not Currently Drug use: Never Sexual activity: Not Currently Other Topics Concern Not on file Social History Narrative Not on file Medications MEDSamitriptyline/gabapentin/emu oil(#), , Topical, Q8H cyanocobalamin, 1,000 mcg, Intramuscular, QDAY folic acid, 1 mg, Oral, QDAY heparin (porcine), 5,000 Units, Subcutaneous, Q8H* IV MEDS Prn hydrALAZINE Q6H PRN, HYDROcodone/acetaminophen Q6H PRN HOME MEDS Prior to Admission Medications Prescriptions Last Dose Informant Patient Reported? Taking? HYDROcodone/acetaminophen (NORCO) 10/325 mg tablet 09/17/2019 Self Yes Yes Sig: Take 1 tablet by mouth every 6 hours as needed for Pain calcium carbonate (TUMS) 500 mg (200 mg elemental calcium) chewable tablet Past Week Self Yes Yes Sig: Chew 500-1,000 mg by mouth every 6 hours as needed. enalapril (VASOTEC) 10 mg tablet 09/17/2019 Self Yes Yes Sig: Take 5 mg by mouth daily. hydroCHLOROthiazide (HYDRODIURIL) 25 mg tablet 09/17/2019 Self Yes Yes Sig: Take 25 mg by mouth every morning. potassium chloride SR (K-DUR) 10 mEq tablet 09/17/2019 Self Yes Yes Sig: Take 10 mEq by mouth twice daily. Take with a meal and a full glass of wate r. Facility-Administered Medications: None Review of Systems Constitutional: malaise, weight loss Eyes: negative Ears, nose, mouth, throat, and face: negative Respiratory: negative Cardiovascular: negative Gastrointestinal: nausea Genitourinary:negative Integument/breast: negative Hematologic/lymphatic: negative Musculoskeletal: weakness Neurological: negative Endocrine: negative Physical Exam Vital Signs: Last Filed In 24 Hours Vital Signs: 24 Hour Range BP: 142/63 (09/17 1232) Temp: 36.7 C (98 F) (09/17 1232) Pulse: 79 (09/17 1232) Respirations: 20 PER MINUTE (09/17 1232) SpO2: 98 % (09/17 1232) Height: 162.6 cm (64") (09/16 2349) BP: (142-157)/(63-77) Temp: [36.4 C (97.6 F)-36.9 C (98.4 F)] Pulse: [79-108] Respirations: [18 PER MINUTE-20 PER MINUTE] SpO2: [97 %-99 %] Vitals: 09/17/192349 Weight: 77 kg (169 lb 12.1 oz) Intake/Output Summary (Last 24 hours) at 09/18/2019 1532 Last data filed at 09/18/2019 0350 Gross per 24 hour Intake 150 ml Output 385 ml Net -235 ml Gen: Alert and Oriented, No Acute Distress HEENT: Sclera normal; MMM CV: no JVD, S1 and S2 normal, no rubs, murmurs or gallops Pulm: Clear to Auscultation bilateral GI: BS+ x4, non-tender to palpation Neuro: Grossly normal, moving all extremities, speech intact Ext: no edema, clubbing or cyanosis Skin: no rash Labs Recent Labs 09/18/19 0130 09/18/19 0702 09/18/19 0954 NA 141 140 -- K 5.6* 4.8 -- CL 109 110 -- CO2 13* 10* -- GAP 19* 20* -- BUN 109* 100* -- CR 7.32* 6.99* -- GLU 80 77 -- CA 10.6 9.5 -- ALBUMIN -- 3.3* -- MG 2.3 -- -- PO4 6.5* -- -- TSH -- -- 1.67 Recent Labs 09/18/19 0702 09/18/19 0954 WBC 7.4 -- HGB 8.8* -- HCT 25.9* -- PLTCT 315 -- INR -- 1.4* PTT -- 27.5 AST 11 -- ALT 11 -- ALKPHOS 105 -- Estimated Creatinine Clearance: 7.6 mL/min (A) (based on SCr of 6.99 mg/dL (H)). Vitals: 09/17/192349 Weight: 77 kg (169 lb 12.1 oz) No results for input(s): PHART, PO2ART in the last 72 hours. Invalid input(s): PC02A Radiology Pertinent radiology reviewed. documented in this encounter Miscellaneous Notes * Case Mgmt DC Plan - Jennifer Henry - 10/11/2019 11:39 AM CDT BRE[employer] PEER COUNSELOR note: Transfer packet prepared and placed inpatient wall unit. Jennifer Henry Medical Office Rep Show Operations Supervisor * Case Mgmt DC Plan - Zakia Stinson RN - 10/11/2019 10:22 AM CDT Case Management Progress Note NAME:Mary Tim :1950 AGE: 69 y.o. ADMISSION DATE: 09/17/2019 DAYS ADMITTED: LOS: 23 days Todays Date: 10/11/2019 Plan * Patient is medically stable and ready for DC to SNF with OP HD. Interventions ? Support Support: Pt/Family Updates re:POC or DC Plan * NCM reviewed EMR and discussed patient with team during huddle this morning. * Pt to DC to facility today with OP HD in [place]. Nasreen INIGUEZ set transpor t for 12:00 PM. [facility] updated bedside RNCeferino of DC time. * Will continue to follow with Hematology team through DC. ? Info or Referral Information or Referral to Community Resources: No Needs Identified ? Discharge Planning Discharge Planning: OP HD or PD * Inpatient HD flowsheets faxed to [facility] P: / F: . Pt has first OP HD at 10:15 AM tomorrow but must be th ere at 10:00 AM. ? Medication Needs Medication Needs: No Needs Identified ? Financial Financial: No Needs Identified ? Legal Legal: No Needs Identified ? Other Other/None: Other (comment) Disposition ? Expected Discharge Date Expected Discharge Date: 10/11/19 Expected Discharge Time: 1230 ? Transportation Does the patient need discharge transport arranged?: No Transportation Name, Phone and Availability #1: Family will transport home. Does the patient use Medicaid Transportation?: No ? Next Level of Care (Acute Psych discharges only) ? Discharge Disposition Durable Medical Equipment No service has been selected for the patient. Destination - Selection Complete Service Provider Request Status Selected Services Address Phone Number Fax Numb er [facility] Selected [facility] [address] [place] [address] [phone] Home Care No service has been selected for the patient. Dialysis/Infusion - Selection Complete Service Provider Request Status Selected Services Address Phone Number Fax Numb er [facility] Selected In-Center Dialysis [facility] [address] [phone] Zakia Stinson, RN, BSN Nurse Medical Office RepPlasterer Maintenance / Surgical Non-Transplant Pager: * Case Mgmt DC Plan - Mark Aggie - 10/11/2019 7:52 AM CDT Case Management Progress Note NAME:Mary Tim :1950 AGE: 69 y.o. ADMISSION DATE: 09/17/2019 DAYS ADMITTED: LOS: 23 days Todays Date: 10/11/2019 Plan Pt to discharge at 1200 today via [employer] wheelchair van to [place]. PHONE NUMBER FOR [email or web address]: [phone]. Interventions ? Support Support: Pt/Family Updates re:POC or DC Plan ? Info or Referral Information or Referral to Community Resources: No Needs Identified ? Discharge Planning Discharge Planning: Transportation Arrangements and/or Resources, [facility] UPDATE Josi at [facility] informed MARTITA that auth was received. MARTITA arranged wheelchair van (no oxygen required now) with Piotr at [employer], . MARTITA updated Josi that pt will discharge at 1200. MARTITA called pt and updated her on plan. Pt reconfirmed that she would pay for diane sportation and confirmed that she has a credit card with her. SW provided quote of approximately $340. Pt thanked MARTITA for her work and she expressed no other CM needs. MARTITA notified bedside RN of plan and provided RN report number [phone]. BREASTFEEDING PEER COUNSELOR delivered transfer packet and on-site MARTITA Rios agreed to fax discharge orders and scripts to SNF. SW appreciates assistance. PREVIOUS NOTES SW received reply from Martín Leslie at [facility] stating that insurance auth request h ad not been submitted by [facility] until 1050 yesterday and clinical notes were receiv ed at 1201. She stated that it will be reviewed today. MARTITA notified Josi (cell [phone]) at [facility] that insurance stated they had not received her request until midday yesterday. MARTITA asked if pt can be admitted over the weekend, if auth doesn't come through today. 0752 SW Voalted PT/OT to ask if they can see pt this morning due to ongoing insu alex auth process and need for new notes. Pt could not participate yesterday du e to procedures. ? Medication Needs Medication Needs: No Needs Identified ? Financial Financial: No Needs Identified ? Legal Legal: No Needs Identified ? Other Other/None: Other (comment) Disposition ? Expected Discharge Date Expected Discharge Date: 10/11/19 Expected Discharge Time: 1400 ? Transportation Does the patient need discharge transport arranged?: No Transportation Name, Phone and Availability #1: Family will transport home. Does the patient use Medicaid Transportation?: No ? Next Level of Care (Acute Psych discharges only) ? Discharge Disposition Durable Medical Equipment No service has been selected for the patient. Destination - Selection Complete Service Provider Request Status Selected Services Address Phone Number Fax Numb er [facility] Selected [facility] [address] [facility] [address] [phone] Home Care No service has been selected for the patient. Dialysis/Infusion - Selection Complete Service Provider Request Status Selected Services Address Phone Number Fax Numb er [facility] Selected In-Center Dialysis [facility] [address] [phone] Julia Flores LMSW [employer] Controls Operator [phone] (pager); Voalte Me * Procedures (Immed Post or Bedside) - Ben Gordon MD - 10/10/2019 11:56 AM CDT Immediate Post Procedure Note Date: 10/10/2019 Attending Physician: Dr. Mcguire Performing Provider: Ben Gordon MD Consent: Consent obtained from patient. Time out performed: Consent obtained, correct patient verified, correct procedur e verified, correct site verified, patient marked as necessary. Pre/Post Procedure Diagnosis: Lymphoma Indications: Lymphoma, need for IT chemotherapy Anesthesia: Local 5 mL 2% lidocaine without epinephrine Procedure(s): Lumbar puncture Findings: Lower lumbar hardware in place. Successful Lumbar puncture at L2-L3 w ith red tinted csf obtained. Estimated Blood Loss: None/Negligible Specimen(s) Removed/Disposition: Yes, sent to pathology Complications: None Patient Tolerated Procedure: Well Post-Procedure Condition: stable Ben Gordon MD * Case Mgmt DC Plan - Aggie Flores - 10/10/2019 9:44 AM CDT Case Management Progress Note NAME:Mary Tim :1950 AGE: 69 y.o. ADMISSION DATE: 09/17/2019 DAYS ADMITTED: LOS: 22 days Todays Date: 10/10/2019 Plan Anticipate discharge tomorrow to [facility], [place], [place], pending insurance auth and transportation arrangements. Interventions ? Support Support: Pt/Family Updates re:POC or DC Plan ? Info or Referral Information or Referral to Community Resources: No Needs Identified ? Discharge Planning Discharge Planning: Transportation Arrangements and/or Resources, Skilled Nursi Facility UPDATE 1700: MARTITA called pt and updated her that insurance auth has not been recei rufus yet. SW discussed wheelchair van costs. Pt agreed that she could pay for cos t of van if it was around the lowest quote of $350 to $425. SW informed pt she w ould have to pay up front and, if she pays with a credit card, there will be an additional fee. Pt indicated understanding. SW to update pt tomorrow. MARTITA sent secure email to [facility] A[employer] contacts to ask if they can provide update on auth request. UPDATE 1330: MARTITA called Josi ([phone], cell) at [facility] for update . No auth received yet. Josi stated that [facility] will not accept pt after 1700 today. Pt is still in IR; d ischarge not likely today, even with insurance auth due to inability to admit to SNF in evening. Josi confirmed that SNF will transport pt for dialysis appointments. MARTITA updated team and charge nurse. PREVIOUS NOTES Pt discussed in huddle. Anticipate pt will be ready for dc at about 1700, pendin g completion of dialysis and chemo. MARTITA informed team that SNF is awaiting insura nce auth and that SW will arrange transportation after auth is received. MARTITA was informed by Stacia Welch, patient relations rep, that [facility] will pay for replacement dentures and that she is discussing details with pt. SW notified team via Voalte. 1052: SW left msg for Josi at [facility] informing her that pt is expected to be r xavier at about 1700 today. SW asked whether insurance auth has been received and how late they can receive pt tonight. SW to follow up. MARTITA returned a call to pt's sister, Ana Morris, , to inform her that pt relations will pay for pt's dentures. SW also discussed with sister the discharge plan, including possible DC today, t he pending insurance auth, destination ([facility]) and transportat ion. Sister plans to ask family if they can provide transportation, although non e will be available this evening. SW to obtain quotes on wheelchair van and foll ow up with sister. MARTITA called for quotes for wheelchair van with oxygen to [place], [place]. [facility] Exhibit Designer, Jaden. $397 if discharge by 1400; after that, $476 .40. [employer] [facility] [employer], . $692.50. [employer], Piotr. $350 if discharge by 1500; after that, $ 425. MARTITA discussed above costs with pt's sister. MARTITA to call pt to discuss when pt is a vailable. Pt currently in IR. ? Medication Needs Medication Needs: No Needs Identified ? Financial Financial: No Needs Identified ? Legal Legal: No Needs Identified ? Other Other/None: Other (comment) Disposition ? Expected Discharge Date Expected Discharge Date: 10/10/19 Expected Discharge Time: 1400 ? Transportation Does the patient need discharge transport arranged?: No Transportation Name, Phone and Availability #1: Family will transport home. Does the patient use Medicaid Transportation?: No ? Next Level of Care (Acute Psych discharges only) ? Discharge Disposition Durable Medical Equipment No service has been selected for the patient. Destination - Selection Complete Service Provider Request Status Selected Services Address Phone Number Fax Numb er [facility] Selected [facility]dc [address] [facility] [address] Home Care No service has been selected for the patient. Dialysis/Infusion - Selection Complete Service Provider Request Status Selected Services Address Phone Number Fax Numb er [facility] Selected In-Center Dialysis [facility], [facility] [address] [phone] Julia Flores LMSW [employer] Controls Operator [phone] (pager); Voalte Me * Case Mgmt DC Plan - Aggie Flores - 10/09/2019 5:25 PM CDT Case Management Progress Note NAME:Mary Tim :1950 AGE: 69 y.o. ADMISSION DATE: 09/17/2019 DAYS ADMITTED: LOS: 21 days Todays Date: 10/09/2019 Plan Anticipate discharge to [facility], [place], [place], pending completi on of chemo, medical stability, insurance auth for SNF and transportation. Interventions ? Support Support: Pt/Family Updates re:POC or DC Plan ? Info or Referral Information or Referral to Community Resources: No Needs Identified ? Discharge Planning Discharge Planning: Fdc Facility Pt clinically accepted at [facility]. MARTITA yesterday asked SNF to req uest insurance auth. MARTITA sent referral update today with new PT/OT notes. MARTITA later called Josi in ad missions at [facility] to ask if she'd heard back from insurance, but she stated she thompson dn't submitted the request yet. MARTITA stated that pt is expected to be ready to DC tomorrow. Josi stated she would submit for auth right away. [facility] does not provide transportation. SW to work on transportation tomorr ow when DC time is known. MARTITA confirmed today with PT that pt can travel in wheel chair van to [place]. MARTITA faxed NC's note to facility that provides details of plan for dialysis. MARTITA contacted attending to confirm plan for outpatient treatment. At this time, gage muse is scheduled for an oncology appointment with Dr. Gage Zhong, oncologist, [facility], on 10/[address] Zhong will determine plan for chemo. MARTITA left a msg for Josi informing her of the above outpt plan and that MARTITA fa xed [facility]'s note with dialysis appointment details. MARTITA to follow up in the morning. ? Medication Needs Medication Needs: No Needs Identified ? Financial Financial: No Needs Identified ? Legal Legal: No Needs Identified ? Other Other/None: Other (comment) Disposition ? Expected Discharge Date Expected Discharge Date: 10/10/19 Expected Discharge Time: 1400 ? Transportation Does the patient need discharge transport arranged?: No Transportation Name, Phone and Availability #1: Family will transport home. Does the patient use Medicaid Transportation?: No ? Next Level of Care (Acute Psych discharges only) ? Discharge Disposition Durable Medical Equipment No service has been selected for the patient. Destination - Selection Complete Service Provider Request Status Selected Services Address Phone Number Fax Numb er [facility] Selected Fdc [address] [facility] [address] Home Care No service has been selected for the patient. Dialysis/Infusion - Selection Complete Service Provider Request Status Selected Services Address Phone Number Fax Numb er [facility] Selected In-Center Dialysis [facility], [facility] [address] [phone] Julia Flores LMSW [employer] Controls Operator [phone] (pager); Voalte Me * Case Mgmt DC Plan - Zakia Stinson RN - 10/09/2019 11:22 AM CDT Case Management Progress Note NAME:Mary Tim :1950 AGE: 69 y.o. ADMISSION DATE: 09/17/2019 DAYS ADMITTED: LOS: 20 days Todays Date: 10/08/2019 Plan * Anticipate DC in the next 1-2 days to SNF with OP HD. Interventions ? Support Support: Pt/Family Updates re:POC or DC Plan * NCM reviewed EMR and discussed patient with team during huddle this morning. * Pt to DC to [facility] in [place], [place] and will require OP HD. NCM to as sist. * Pt will need OP HD close to home in [place], [place]. * Will continue to follow with Hematology team through DC. ? Info or Referral Information or Referral to Community Resources: No Needs Identified ? Discharge Planning Discharge Planning: OP HD or PD * Gradalis tasked to locate in-network OP HD providers near pts home address. * Obtained list of in-network OP HD via email and only 1 clinic listed..[facility] OP HD in [place] near [place], [place]. This would be too far for SNF to diane sport patient. * NCM contacted pts insurance provider and obtained another in-network OP HD cli jameson. [facility] P: / F: * OP HD referral faxed to [facility] P: / F: to set patient up with OP HD and notify this NCM of chair time. * Chair time scheduled for TRS at 10:15 AM and pt will need to arrive by 10:00 A M for her first appt. * Hematology team updated of OP HD info and added to AVS DC summary. ? Medication Needs Medication Needs: No Needs Identified ? Financial Financial: No Needs Identified ? Legal Legal: No Needs Identified ? Other Other/None: No needs identified Disposition ? Expected Discharge Date Expected Discharge Date: 10/10/19 Expected Discharge Time: 1300 ? Transportation Does the patient need discharge transport arranged?: No Transportation Name, Phone and Availability #1: Family will transport home. Does the patient use Medicaid Transportation?: No ? Next Level of Care (Acute Psych discharges only) ? Discharge Disposition Durable Medical Equipment No service has been selected for the patient. Destination - Selection Complete Service Provider Request Status Selected Services Address Phone Number Fax Numb er [facility] Selected Fdc [address] [facility] [address] [phone] Home Care No service has been selected for the patient. [facility] Dialysis/Infusion - Selection Complete Service Provider Request Status Selected Services Address Phone Number Fax Numb er [facility] Selected In-Center Dialysis [facility], [facility] [address] [phone] Zakia Stinson RN, BSN Nurse Medical Office RepPlasterer Maintenance / Surgical Non-Transplant Pager: * Case Mgmt DC Plan - Aggie Flores - 10/08/2019 12:53 PM CDT Case Management Progress Note NAME:Mary Tim :1950 AGE: 69 y.o. ADMISSION DATE: 09/17/2019 DAYS ADMITTED: LOS: 20 days Todays Date: 10/08/2019 Plan Anticipate discharge to [facility], [place], [place], pending medical stability and insurance auth. MARTITA called pt to discuss discharge plan to SNF and to follow up on issue of lost dentures. Interventions ? Support Support: Pt/Family Updates re:POC or DC Plan ? Info or Referral Information or Referral to Community Resources: No Needs Identified ? Discharge Planning Discharge Planning: Fdc Facility Pt discussed in heme huddle this morning. Per attending physician, pt can be see n at outpt oncology clinic in [place], [place], and daily Zarxio shots will not be mandatory for pt. Pt will need new access placed for outpt dialysis treatments. Plan for pt to discharge on , following IT chemo. Pt clinically accepted to [facility], [place], [place]. MARTITA called admi ssions contact Josi today to update on JUSTIN and ask if insurance auth has been requested. Josi stated she would request it immediately. Josi confirmed rec eipt of referral updates from MARTITA this morning. MARTITA stated that JENELLE is working on scheduling pt's dialysis appointments. JOSIANE upda hero SW that there is one in-network clinic in [place]. MARTITA updated pt re SNF discharge plan. Pt agreeable; all questions were answered. MARTITA noted that pt refused PT today. MARTITA Voalted PT/OT to ask if they can see pt in morning due to notes being needed for insurance auth. ? Medication Needs Medication Needs: No Needs Identified ? Financial Financial: No Needs Identified ? Legal Legal: No Needs Identified ? Other Other/None: Other (comment) Per EMR, pt's upper dentures were documented as being lost during admission on . RN note on 09/28 states that pt was told to call patient relations for ashli leonard. On 10/01, physician note state that pt was told that [facility] was working on a plan for replacement dentures. During today's huddle, heme team requested that SW follow up on this. SW spoke with pt, who stated that she's talked to patient relations "every day" about this. SW asked who, specifically, pt had talked to, and she said it was "e verybody," and "they keep telling me they're going to take care of it, but when? " Pt said her sister, Ana, had also talked with patient relations. SW left a msg with pt's sister, Ana Morris, , requesting return call and update on her conversations with patient relations. MARTITA emailed patient relations and learned that Stacia Welch is the represent ative assigned to the case. She stated that she is still working to resolve it. Disposition ? Expected Discharge Date Expected Discharge Date: 10/10/19 Expected Discharge Time: 1300 ? Transportation Does the patient need discharge transport arranged?: No Transportation Name, Phone and Availability #1: Family will transport home. Does the patient use Medicaid Transportation?: No ? Next Level of Care (Acute Psych discharges only) ? Discharge Disposition Durable Medical Equipment No service has been selected for the patient. Destination - Selection Complete Service Provider Request Status Selected Services Address Phone Number Fax Numb er [facility] Selected Fdc [address] [facility] [address] Home Care No service has been selected for the patient. Dialysis/Infusion - Selection Complete Service Provider Request Status Selected Services Address Phone Number Fax Numb er [facility] Selected In-Center Dialysis [facility] [address] Julia Flores LMSW M[employer] Controls Operator [phone] (pager); Voalte Me * Procedures (Immed Post or Bedside) - Evaristo Edmond MD - 10/07/2019 1:22 PM CDT Immediate Post Procedure Note Date: 10/07/2019 Attending Physician: Dr. Mcguire Performing Provider: Evaristo Edmond MD Consent: Consent obtained from patient. Time out performed: Consent obtained, correct patient verified, correct procedur e verified, correct site verified, patient marked as necessary. Pre/Post Procedure Diagnosis: LP for IT chemo Indications: LP for IT chemo Anesthesia: Local 5 mL 1% lidocaine without epinephrine Procedure(s): Lumbar Puncture: Findings: Clear colored CSF Estimated Blood Loss: None/Negligible Specimen(s) Removed/Disposition: Yes, sent to pathology Complications: None Patient Tolerated Procedure: Well Post-Procedure Condition: stable Evaristo Edmond MD * Case Mgmt DC Plan - Aggie Flores - 10/07/2019 10:54 AM CDT Case Management Progress Note NAME:Mary Tim :1950 AGE: 69 y.o. ADMISSION DATE: 09/17/2019 DAYS ADMITTED: LOS: 19 days Todays Date: 10/07/2019 Plan Anticipate discharge to [facility], [place], [place], pending medical stability and insurance auth. Interventions ? Support Support: Pt/Family Updates re:POC or DC Plan ? Info or Referral Information or Referral to Community Resources: No Needs Identified ? Discharge Planning Discharge Planning: Fdc Facility Per eli cochran, pt starting R-CHOP with plan for outpatient chemo starting 10/24 . Pt to discharge to SNF when medically stable. Pt might not need daily Zarxio a t discharge, per attending. Heme team looking into whether pt can follow up with oncologist in [place], [place]. Per previous primary [facility] notes, pt was accepted to [facility], [place], [place], last week. This SW faxed referral updates today. SW informed SNF of new JUSTIN and pt's need for private room. 1245: MARTITA followed up with phone call with carin Prater, [address] [phone]. SW informed Josi that pt is now on hematology service with new lympho ma diagnosis, that pt is receiving inpatient chemo, and that new JUSTIN is 10/08. SW also stated that pt will need a private room due to immunosuppression due to ch emo. SW stated that pt will receive additional outpt chemo treatments in [facility] or [place]; plan TBD by heme team. Josi confirmed that pt can be accepted into private room. SW to keep SNF updated re discharge plan. Josi had requested insurance auth last week, but it might be cancelled due to ongoing inpatient stay. Heme team later stated that pt will need dialysis three time/week. SW called Josi to confirm that SNF can provide transportation to/from dialysis center. S he stated that it's easiest for their transporter to accommodate MWF schedule wi th mid-morning or later start, if that's an option. SW informed NCM of same. ? Medication Needs Medication Needs: No Needs Identified ? Financial Financial: No Needs Identified ? Legal Legal: No Needs Identified ? Other Other/None: No needs identified Disposition ? Expected Discharge Date Expected Discharge Date: 10/09/19 Expected Discharge Time: 1300 ? Transportation Does the patient need discharge transport arranged?: No Transportation Name, Phone and Availability #1: Family will transport home. Does the patient use Medicaid Transportation?: No ? Next Level of Care (Acute Psych discharges only) ? Discharge Disposition Durable Medical Equipment No service has been selected for the patient. Destination - Selection Complete Service Provider Request Status Selected Services Address Phone Number Fax Numb er [facility] Selected Fdc [address] [facility] [address] [phone] Home Care No service has been selected for the patient. Dialysis/Infusion No service has been selected for the patient. Julia Flores CLAIMS CONFIGURATION ANALYST Molded Goods Controls Operator [phone] (pager); Voalte Me * Procedures (Immed Post or Bedside) - George Mckinney DO - 10/04/2019 9:55 AM CDT Immediate Post Procedure Note Date: 10/04/2019 Attending Physician: Jonathan Shirley MD Performing Provider: George Mckinney DO Consent: Consent obtained from patient. Time out performed: Consent obtained, correct patient verified, correct procedur e verified, correct site verified, patient marked as necessary. Pre/Post Procedure Diagnosis: DLBCL Indications: Chemotherapy Anesthesia: Conscious Sedation Procedure(s): L chest port placement Findings: Successful L chest port placement. Patent L IJV. Estimated Blood Loss: None/Negligible Specimen(s) Removed/Disposition: None Complications: None Patient Tolerated Procedure: Well Post-Procedure Condition: stable George Mckinney DO * Procedures (Immed Post or Bedside) - Sourav Coon MD - 10/03/2019 1:40 PM CDT Immediate Post Procedure Note Date: 10/03/2019 Attending Physician: Jaymie WINCHESTER Procedure(s): LP Pre/Post Diagnosis: lymphoma Description/Findings: none Anesthesia: 2% lidocaine Time out performed: Consent obtained, correct patient verified, correct procedur e verified, correct site verified, patient marked as necessary. Estimated Blood Loss: None/Negligible Specimen(s) Removed/Disposition: 8cc clear csf Complications: None Sourav Coon MD * Care Plan - Marcus Fernandez RN - 10/02/2019 4:31 PM CDT Problem: Discharge Planning Goal: Participation in plan of care Outcome: Goal Ongoing Goal: Knowledge regarding plan of care Outcome: Goal Ongoing Goal: Prepared for discharge Outcome: Goal Ongoing Problem: Infection, Risk of, Urinary Catheter-Associated Urinary Tract Infection Goal: Absence of urinary catheter-associated infection Outcome: Goal Ongoing Problem: Infection, Risk of Goal: Absence of infection Outcome: Goal Ongoing Problem: Falls, High Risk of Goal: Absence of falls-Adult Patient Outcome: Goal Ongoing Goal: Absence of Falls-Pediatric patient Outcome: Goal Ongoing Problem: Skin Integrity Goal: Skin integrity intact Outcome: Goal Ongoing Goal: Healing of skin (Wound & Incision) Outcome: Goal Ongoing Goal: Healing of skin (Pressure Injury) Outcome: Goal Ongoing Problem: Mobility/Activity Intolerance Goal: Maximize functional ADL's and mobility outcomes Outcome: Goal Ongoing Problem: Self-Care Deficit Goal: Maximize ADL functioning Outcome: Goal Ongoing Problem: Infection, Risk of, Central Venous Catheter-Associated Bloodstream Infe ction Goal: Absence of CVC Associated Bloodstream infection Outcome: Goal Ongoing Problem: Nutrition Deficit Goal: Adequate nutritional intake Outcome: Goal Ongoing * Case Mgmt DC Plan - Delphine Gill - 10/02/2019 3:05 PM CDT Case Management Progress Note NAME:Mary Tim :1950 AGE: 69 y.o. ADMISSION DATE: 09/17/2019 DAYS ADMITTED: LOS: 14 days Todays Date: 10/02/2019 Plan D/c to [facility] SNF. Interventions ? Support Support: Pt/Family Updates re:POC or DC Plan ? Info or Referral Information or Referral to Community Resources: No Needs Identified ? Discharge Planning Discharge Planning: Fdc Facility Update 1500: SW faxed updates to [facility]. Called and left voicemail for Jois in admissions. ? Medication Needs Medication Needs: No Needs Identified Financial Financial: No Needs Identified ? Legal Legal: No Needs Identified ? Other Other/None: No needs identified Disposition ? Expected Discharge Date Expected Discharge Date: 10/07/19 Expected Discharge Time: 1300 ? Transportation Does the patient need discharge transport arranged?: No Transportation Name, Phone and Availability #1: Family will transport home. Does the patient use Medicaid Transportation?: No ? Next Level of Care (Acute Psych discharges only) ? Discharge Disposition Durable Medical Equipment No service has been selected for the patient. Destination - Selection Complete Service Provider Request Status Selected Services Address Phone Number Fax Numb er [facility] Selected Fdc [address] [facility] [address] Home Care No service has been selected for the patient. Dialysis/Infusion No service has been selected for the patient. Delphine Gill LMSW, LMAC Social Work Pager: [phone] Desk: [phone] * Care Plan - Marcus Fernandez RN - 10/01/2019 4:54 PM CDT Problem: Discharge Planning Goal: Participation in plan of care Outcome: Goal Ongoing Goal: Knowledge regarding plan of care Outcome: Goal Ongoing Goal: Prepared for discharge Outcome: Goal Ongoing Problem: Infection, Risk of, Urinary Catheter-Associated Urinary Tract Infection Goal: Absence of urinary catheter-associated infection Outcome: Goal Ongoing Problem: Infection, Risk of Goal: Absence of infection Outcome: Goal Ongoing Problem: Falls, High Risk of Goal: Absence of falls-Adult Patient Outcome: Goal Ongoing Goal: Absence of Falls-Pediatric patient Outcome: Goal Ongoing Problem: Skin Integrity Goal: Skin integrity intact Outcome: Goal Ongoing Goal: Healing of skin (Wound & Incision) Outcome: Goal Ongoing Goal: Healing of skin (Pressure Injury) Outcome: Goal Ongoing Problem: Mobility/Activity Intolerance Goal: Maximize functional ADL's and mobility outcomes Outcome: Goal Ongoing Problem: Self-Care Deficit Goal: Maximize ADL functioning Outcome: Goal Ongoing Problem: Infection, Risk of, Central Venous Catheter-Associated Bloodstream Infe ction Goal: Absence of CVC Associated Bloodstream infection Outcome: Goal Ongoing Problem: Nutrition Deficit Goal: Adequate nutritional intake Outcome: Goal Ongoing * Procedures (Immed Post or Bedside) - Alonso Farfan DO - 10/01/2019 12:49 PM CDT Immediate Post Procedure Note Date: 10/01/2019 Attending Physician: Ebony Shirley MD Performing Provider: Alonso Farfan DO Consent: Consent obtained from patient. Time out performed: Consent obtained, correct patient verified, correct procedur e verified, correct site verified, patient marked as necessary. Pre/Post Procedure Diagnosis: Acute kidney injury Indications: As above Anesthesia: Local 10 mL 1% lidocaine without epinephrine Procedure(s): R IJ Tunneled CVC placement for HD Findings: Patent R IJ Estimated Blood Loss: Minimal Specimen(s) Removed/Disposition: None Complications: None Patient Tolerated Procedure: Well Post-Procedure Condition: stable Alonso Farfan DO Pager * Procedures (Immed Post or Bedside) - Mak Lynch MD - 09/30/2019 11:17 AM CDT Immediate Post Procedure Note Date: 09/30/2019 Attending Physician: Mak Lynch Procedure(s): Left renal biopsy Pre/Post Diagnosis: Acute renal failure Description/Findings: Core specimen Anesthesia: 2% lidocaine Versed IV, fentanyl IV Time out performed: Consent obtained, correct patient verified, correct procedur e verified, correct site verified, patient marked as necessary. Estimated Blood Loss: None/Negligible Specimen(s) Removed/Disposition: Yes, sent to pathology Complications: None Mak Lynch MD * Anesthesia Post Op Day 1 - Funmilayo Cee SRNA - 09/28/2019 11:13 AM CDT Anesthesia Follow-Up Evaluation: Post-Procedure Day One Name: Mary Tim : 1950 Age: 69 y.o. Se x: female Procedure Date: 09/27/2019 Procedure: Procedure(s) with comments: BRONCHOSCOPY DIAGNOSTIC WITH CELL WASHING - FLEXIBLE - CASE LENGTH 1.5 HOURS BRONCHOSCOPY WITH BRONCHIAL ALVEOLAR LAVAGE - FLEXIBLE BRONCHOSCOPY WITH ENDOBRONCHIAL ULTRASOUND GUIDED TRANSTRACHEAL/ TRANSBRONCHIAL SAMPLING - 3 OR MORE MEDIASTINAL/ HILAR LYMPH NODE STATIONS/ STRUCTURE - FLEXIBL E BRONCHOSCOPY WITH BRONCHIAL/ ENDOBRONCHIAL BIOPSY - FLEXIBLE Physical Assessment Height: 162.6 cm (64") Weight: 76.7 kg (169 lb) Vital Signs (Last Filed in 24 hours) BP: 129/53 (09/27 899) Temp: 36.3 C (97.3 F) (09/27 899) Pulse: 83 (09/27 899) Respirations: 18 PER MINUTE (09/27 899) SpO2: 96 % (09/27 899) SpO2 Pulse: 107 (09/26 1814) Patient History Allergies Allergies Allergen Reactions Mobic [Meloxicam] SWOLLEN TONGUE Medications Scheduled Meds:amitriptyline/gabapentin/emu oil(#) 4/4/10 % topical cream, , Top ical, Q8H amLODIPine (NORVASC) tablet 5 mg, 5 mg, Oral, QDAY cyanocobalamin (VITAMIN B-12) tablet 1,000 mcg, 1,000 mcg, Oral, QDAY folic acid (FOLVITE) tablet 1 mg, 1 mg, Oral, QDAY heparin (porcine) PF syringe 5,000 Units, 5,000 Units, Subcutaneous, Q8H* polyethylene glycol 3350 (MIRALAX) packet 17 g, 1 packet, Oral, QDAY senna (SENOKOT) tablet 2 tablet, 2 tablet, Oral, QHS sodium bicarbonate tablet 650 mg, 650 mg, Oral, BID Continuous Infusions: lactated ringers infusion 50 mL/hr at 09/27/19 2133 PRN and Respiratory Meds:bisacodyL QDAY PRN, calcium carbonate Q6H PRN, hydrALAZ INE Q6H PRN, HYDROcodone/acetaminophen Q6H PRN, melatonin QHS PRN, simethicone Q 6H PRN Diagnostic Tests Hematology: Lab Results Component Value Date HGB 8.7 09/28/2019 HCT 25.3 09/28/2019 PLTCT 209 09/28/2019 WBC 5.9 09/28/2019 NEUT 76 09/28/2019 ANC 4.54 09/28/2019 ALC 0.31 09/28/2019 WILLIE 16 09/28/2019 AMC 0.92 09/28/2019 EOSA 2 09/28/2019 ABC 0.06 09/28/2019 MCV 90.6 09/28/2019 MCH 31.3 09/28/2019 MCHC 34.6 09/28/2019 MPV 6.6 09/28/2019 RDW 13.4 09/28/2019 General Chemistry: Lab Results Component Value Date NA 137 09/28/2019 K 4.4 09/28/2019 CL 102 09/28/2019 CO2 20 09/28/2019 GAP 15 09/28/2019 BUN 81 09/28/2019 CR 6.58 09/28/2019 GLU 82 09/28/2019 CA 8.9 09/28/2019 ALBUMIN 2.8 09/25/2019 LACTIC 2.1 09/27/2019 MG 1.9 09/28/2019 TOTBILI 0.3 09/25/2019 PO4 4.8 09/28/2019 Coagulation: Lab Results Component Value Date PTT 27.5 09/18/2019 INR 1.4 09/18/2019 Follow-Up Assessment Patient location during evaluation: floor Anesthetic Complications: Anesthetic complications: The patient did not experience any anesthestic complic ations. Pain: Management:adequate Level of Consciousness: awake and alert Hydration:acceptable Airway Patency: patent Respiratory Status: acceptable, spontaneous ventilation and nasal cannula (2L) Cardiovascular Status:acceptable Regional/Neuroaxial: Comments: Patient resting comfortable in room, denies N/V, tolerating PO intake, and adequate pain control. Patient has no anesthetic concerns or questions upon this encounter. * Case Mgmt DC Plan - - 09/26/2019 3:17 PM CDT Case Management Progress Note NAME:Mary Tim :1950 AGE: 69 y.o. ADMISSION DATE: 09/17/2019 DAYS ADMITTED: LOS: 8 days Todays Date: 09/26/2019 Plan D/c to [facility]; pending insurance auth and medical stability. Interventions ? Support Support: Pt/Family Updates re:POC or DC Plan ? Info or Referral Information or Referral to Community Resources: No Needs Identified ? Discharge Planning Discharge Planning: Fdc Facility Pt agreeable to send referral to [facility] and [facility]. [facility] denied due to concerns with pt not being able to handle 3 fernanda rs of therapy [facility]- clinically accepted and will send for auth. MARTITA updated pt on acceptance at [facility]. ? Medication Needs Medication Needs: No Needs Identified Financial Financial: No Needs Identified ? Legal Legal: No Needs Identified ? Other Other/None: No needs identified Disposition ? Expected Discharge Date Expected Discharge Date: 09/27/19 Expected Discharge Time: 1300 ? Transportation Does the patient need discharge transport arranged?: No Transportation Name, Phone and Availability #1: Family will transport home. Does the patient use Medicaid Transportation?: No ? Next Level of Care (Acute Psych discharges only) ? Discharge Disposition Durable Medical Equipment No service has been selected for the patient. Destination - Selection Complete Service Provider Request Status Selected Services Address Phone Number Fax Numb er [facility] Selected [facility] [address] [facility] [id number] Home Care No service has been selected for the patient. [facility] No service has been selected for the patient. Delphine Gill LMSW, [facility] Social Work Pager: [phone] Desk: [phone] * Care Plan - Lisa Marmolejo RN - 09/25/2019 6:25 AM CDT Problem: Discharge Planning Goal: Participation in plan of care Outcome: Goal Ongoing Goal: Knowledge regarding plan of care Outcome: Goal Ongoing Goal: Prepared for discharge Outcome: Goal Ongoing Problem: Infection, Risk of, Urinary Catheter-Associated Urinary Tract Infection Goal: Absence of urinary catheter-associated infection Outcome: Goal Ongoing Problem: Infection, Risk of Goal: Absence of infection Outcome: Goal Ongoing Goal: Knowledge of Infection Control Procedures Outcome: Goal Ongoing Problem: Falls, High Risk of Goal: Absence of falls-Adult Patient Outcome: Goal Ongoing Goal: Absence of Falls-Pediatric patient Outcome: Goal Ongoing Problem: Skin Integrity Goal: Skin integrity intact Outcome: Goal Ongoing Goal: Healing of skin (Wound & Incision) Outcome: Goal Ongoing Goal: Healing of skin (Pressure Injury) Outcome: Goal Ongoing Problem: Mobility/Activity Intolerance Goal: Maximize functional ADL's and mobility outcomes Outcome: Goal Ongoing * Care Plan - Sandra Hung RN - 09/23/2019 9:42 AM CDT Pt updated on plan of care. Pt has no questions or concerns at this time. * Case Mgmt DC Plan - Jade Terrazas RN - 09/18/2019 1:46 PM CDT Case Management Admission Assessment NAME:Mary Tim : [birth year] AGE: 69 y.o. ADMISSION DATE: 09/17/2019 DAYS ADMITTED: LOS: 0 days Todays Date: 09/18/2019 Source of Information: Patient and EMR Per H&P: "Mary Tim is a 69 y.o. female with PMHx of HTN and cervical (C3-C7) and lumbar (L3-L5) spinal fusions who presented for progressively worsening weakness and fatigue and was found to have acute renal failure with hyperkalemia and anion gap metabolic acidosis." This NCM spoke with pt for assessment on this dateon her hospital room phone due to social distancing guidelines. Provided contact information and explanation o f SW/NCM roles. Reviewed [facility], Preparing for Discharge, and [facility] hand-outs. Provided opportunity for questions and discussio n. Patient encouraged to contact Case Management team with questions and concern s during hospitalization and until [facility] is [facility]. Patient reports being fully independent and living on her own in a mobile [place]. 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 Pt states she still drives. She states she has plenty of family in the area w ho could assist her if needed. Patient states she has a walker, SPC and shower chair at home from previous [facility]. She relays that she does not utilize them currently as she doesn 't need to. Per patient she has never needed home health services or SNF, LTC or IPR. She has not needed home infusions or dialysis previous to admission. She did attend OP PT in [place], [place] when she was experiencing vertigo in the past. Patient states at discharge one of her family members will pick her up for [facility]. Plan Plan: Case Management Assessment, Assist PRN with SW/NCM Services, Discharge Lamar nning for Home Anticipated Renal following. NCM to continue to follow for any discharge plans/needs. Patient Address/Phone [address] [address] (home) Emergency Contact No emergency contact information on file. Healthcare Directive Pt is a FULL code. No advance directive or DPOA on file. Transportation Does the patient need discharge transport arranged?: No Transportation Name, Phone and Availability #1: Family will transport home. Does the patient use Medicaid Transportation?: No Expected Discharge Date Expected Discharge Date: 09/23/19 Expected Discharge Time: 1300 Living Situation Prior to Admission ? Living Arrangements Type of Residence: Home, independent Living Arrangements: Alone Bathroom Shower / Tub: Tub/Shower Unit How many levels in the residence?: 1 Can patient live on one level if needed?: Yes Does residence have entry and/or side stairs?: Yes(5 smalll steps to entry) Assistance needed prior to admit or anticipated on discharge: No Who provides assistance or could if needed?: Nearby friends and family Are they in good health?: Unknown Can support system provide 24/7 care if needed?: Maybe ? Level of Function Prior level of function: Independent ? Cognitive Abilities Cognitive Abilities: Alert and Oriented, Engages in problem solving and planning , Participates in decision making, Recognizes impact of health condition on life style Financial Resources ? Coverage Primary Insurance: Medicare Replacement(Aetna Medicare) Additional Coverage: RX(Pt reports medications are currently affordable ) ? 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 ) ? Financial Assistance Needed? No Psychosocial Needs ? Mental Health Mental Health History: No ? Substance Use History Substance Use History Screen: No ? Other N/A Current/Previous Services ? PCP No primary care provider on file., None, None ? Pharmacy [facility] [address] [address] ? Durable Medical Equipment Durable Medical Equipment at home: Shower Chair, Single Point Cane, Walker ? Home Health Receiving home health: No ? Hemodialysis or Peritoneal Dialysis Undergoing hemodialysis or peritoneal dialysis: No ? Tube/Enteral Feeds Receive tube/enteral feeds: No ? Infusion Receive infusions: No ? Private Duty Private duty help used: No ? Home and Community Based Services Home and community based services: No ? Lasha Jef Lasha White: N/A ? Hospice Hospice: No ? Outpatient Therapy PT: In the past Name of rehab location/group: [facility] Would patient return for future services?: Yes OT: No BALL ENDER: No ? Fdc Facility/Snf SNF: No NH: No ? Inpatient Rehab IPR: No ? Long-Term Acute Care Hospital LTACH: No ? Acute Hospital Stay Acute Hospital Stay: No VANNESSA Tripp, cutter inspector Nursing Medical Office Rep *[phone] [phone] * Advanced Care Planning/Resuscitation Status - Ben Eason MD - 09/18/2019 5:17 AM CDT Advance Care Planning/Resuscitation Status Conversation Individuals present for advance care planning conversation: medical student, perry busch and resident/fellow physician Pertinent details of conversation (including direct quotes from patient or surro gate): Full measures Outcome of conversation: Full Code Documents completed as a result of this conversation: None Other documents present, which outline patient/surrogate wishes: None Attestation? N/A documented in this encounter Plan of Treatment Date/Time Name Type Priority Associated Diag noses 09/27/2019 5:54 PM CDT CULTURE-TB (AFB) Microbiology Routine 09/27/2019 5:32 PM CDT CULTURE-FUNGAL,OTHER Microbiology Routine 09/27/2019 5:32 PM CDT CYTOLOGY SPECIMEN LABEL Pathology Routine 10/01/2019 10:12 AM CDT MYOMARKER PANEL 3 (16 Lab MARKERS) 10/03/2019 1:45 PM CDT CYTOLOGY SPECIMEN LABEL Pathology Routine 10/07/2019 1:10 PM CDT CYTOLOGY SPECIMEN LABEL Pathology Routine documented as of this encounter Goals Goal Patient Associated Recent Progress Patient-Stat Aut hor Goal Type Problems ed? GOAL General No Ale Choudhary RN Note: Get back on my feet documented as of this encounter Procedures Comments Procedure Name Priority Date/Time Associated Diag nosis HC PT(INR) Routine 10/11/2019 2:40 AM CDT HC CBC W/ AUTOMATED DIFF Add on 10/11/2019 2:40 AM CDT HC URIC ACID Routine 10/11/2019 2:40 AM CDT HC LD(LDH;LACTIC Routine 10/11/2019 DEHYDROGENASE) 2:40 AM CDT HC COMPREHENSIVE Routine 10/11/2019 METABOLIC PANEL 2:40 AM CDT HC BASIC METABOLIC PANEL Routine 10/10/2019 5:11 PM CDT HEMODIALYSIS DATE Routine 10/10/2019 3:02 PM CDT HEMODIALYSIS INPATIENT Routine 10/10/2019 3:02 PM CDT IR LUMBAR PUNCTURE Routine 10/10/2019 12:10 PM CDT HC CELL COUNT W/DIFF-CSF STAT 10/10/2019 11:54 AM CDT HC TOTAL PROTEIN-CSF STAT 10/10/2019 11:54 AM CDT HC GLUCOSE-CSF STAT 10/10/2019 11:54 AM CDT POC GLUCOSE 10/10/2019 11:37 AM CDT HC URIC ACID RASBURICASE STAT 10/10/2019 9:20 AM CDT HC PT(INR) Routine 10/10/2019 2:20 AM CDT HC CBC W/ AUTOMATED DIFF Routine 10/10/2019 2:20 AM CDT HC URIC ACID Routine 10/10/2019 2:20 AM CDT HC PHOSPHOROUS, SERUM Routine 10/10/2019 2:20 AM CDT HC MAGNESIUM Routine 10/10/2019 2:20 AM CDT HC LD(LDH;LACTIC Routine 10/10/2019 DEHYDROGENASE) 2:20 AM CDT HC COMPREHENSIVE Routine 10/10/2019 METABOLIC PANEL 2:20 AM CDT HC URIC ACID RASBURICASE STAT 10/09/2019 10:00 PM CDT HC URIC ACID Routine 10/09/2019 4:30 PM CDT HC PHOSPHOROUS, SERUM Routine 10/09/2019 4:30 PM CDT HC BASIC METABOLIC PANEL Routine 10/09/2019 4:30 PM CDT HC VRE SCREEN Routine 10/09/2019 11:46 AM CDT HC PT(INR) Routine 10/09/2019 3:00 AM CDT HC CBC W/ AUTOMATED DIFF Routine 10/09/2019 3:00 AM CDT HC URIC ACID Routine 10/09/2019 3:00 AM CDT HC PHOSPHOROUS, SERUM Routine 10/09/2019 3:00 AM CDT HC MAGNESIUM Routine 10/09/2019 3:00 AM CDT HC LD(LDH;LACTIC Routine 10/09/2019 DEHYDROGENASE) 3:00 AM CDT HC COMPREHENSIVE Routine 10/09/2019 METABOLIC PANEL 3:00 AM CDT HC URIC ACID Routine 10/08/2019 4:33 PM CDT HC PHOSPHOROUS, SERUM Routine 10/08/2019 4:33 PM CDT HC BASIC METABOLIC PANEL Routine 10/08/2019 4:33 PM CDT TRANSFUSE RBC'S Routine 10/08/2019 10:20 AM CDT HC PT(INR) Routine 10/08/2019 3:15 AM CDT HC CBC W/ AUTOMATED DIFF Routine 10/08/2019 3:15 AM CDT HC ABO GROUP MU 10/08/2019 3:15 AM CDT HC URIC ACID Routine 10/08/2019 3:15 AM CDT HC PHOSPHOROUS, SERUM Routine 10/08/2019 3:15 AM CDT HC MAGNESIUM Routine 10/08/2019 3:15 AM CDT HC LD(LDH;LACTIC Add on 10/08/2019 DEHYDROGENASE) 3:15 AM CDT HC COMPREHENSIVE Routine 10/08/2019 METABOLIC PANEL 3:15 AM CDT HC URIC ACID Routine 10/07/2019 7:00 PM CDT HC PHOSPHOROUS, SERUM Routine 10/07/2019 7:00 PM CDT HC BASIC METABOLIC PANEL Routine 10/07/2019 7:00 PM CDT HEMODIALYSIS DATE Routine 10/07/2019 6:57 PM CDT HEMODIALYSIS INPATIENT Routine 10/07/2019 6:57 PM CDT IR LUMBAR PUNCTURE Routine 10/07/2019 1:35 PM CDT CSF TUBE VOLUMES 10/07/2019 1:10 PM CDT FL FLOW CYTOMETRY INTERPJ 10/07/2019 2-8 MARKERS 1:10 PM CDT LEUKEMIA/LYMPHOMA PANEL Routine 10/07/2019 FLUID/TISSUE 1:10 PM CDT HC CELL COUNT W/DIFF-CSF STAT 10/07/2019 1:10 PM CDT HC TOTAL PROTEIN-CSF STAT 10/07/2019 1:10 PM CDT HC GLUCOSE-CSF STAT 10/07/2019 1:10 PM CDT POC GLUCOSE 10/07/2019 12:48 PM CDT HC NON-INSECT CONTROL INSPECTOR/THIN PREP Routine 10/07/2019 11:30 AM CDT CHEST SINGLE VIEW Routine 10/07/2019 4:00 AM CDT HC PT(INR) Routine 10/07/2019 2:25 AM CDT HC CBC W/ AUTOMATED DIFF Routine 10/07/2019 2:25 AM CDT HC URIC ACID Routine 10/07/2019 2:25 AM CDT HC PHOSPHOROUS, SERUM Routine 10/07/2019 2:25 AM CDT HC MAGNESIUM Routine 10/07/2019 2:25 AM CDT HC LD(LDH;LACTIC Routine 10/07/2019 DEHYDROGENASE) 2:25 AM CDT HC COMPREHENSIVE Routine 10/07/2019 METABOLIC PANEL 2:25 AM CDT HC URIC ACID Routine 10/06/2019 4:21 PM CDT HC PHOSPHOROUS, SERUM Routine 10/06/2019 4:21 PM CDT BASIC METABOLIC PANEL Routine 10/06/2019 4:21 PM CDT HC PT(INR) Routine 10/06/2019 4:15 AM CDT HC CBC W/ AUTOMATED DIFF Routine 10/06/2019 4:15 AM CDT HC PHOSPHOROUS, SERUM Add on 10/06/2019 4:15 AM CDT HC MAGNESIUM Routine 10/06/2019 4:15 AM CDT HC LD(LDH;LACTIC Routine 10/06/2019 DEHYDROGENASE) 4:15 AM CDT HC HEPATIC FUNCTION PANEL Add on 10/06/2019 4:15 AM CDT HC COMPREHENSIVE Specimen 10/06/2019 METABOLIC PANEL in Lab 4:15 AM CDT HC BASIC METABOLIC PANEL Add on 10/06/2019 4:15 AM CDT HC URIC ACID Routine 10/05/2019 6:16 PM CDT ECG 12-LEAD Routine 10/05/2019 4:00 PM CDT HC VRE SCREEN Routine 10/05/2019 1:55 PM CDT COVID-19 (SARS-COV-2) PCR Routine 10/05/2019 12:17 PM CDT HEMODIALYSIS DATE Routine 10/05/2019 8:59 AM CDT HEMODIALYSIS INPATIENT Routine 10/05/2019 8:59 AM CDT HC URIC ACID RASBURICASE Routine 10/05/2019 4:30 AM CDT HC PT(INR) Routine 10/05/2019 4:30 AM CDT HC CBC W/ AUTOMATED DIFF Routine 10/05/2019 4:30 AM CDT HC PHOSPHOROUS, SERUM Routine 10/05/2019 4:30 AM CDT HC MAGNESIUM Routine 10/05/2019 4:30 AM CDT HC LD(LDH;LACTIC Routine 10/05/2019 DEHYDROGENASE) 4:30 AM CDT HC HEPATIC FUNCTION PANEL Add on 10/05/2019 4:30 AM CDT HC BASIC METABOLIC PANEL Routine 10/05/2019 4:30 AM CDT HC LVL IV SRG PTH, GROSS 10/04/2019 & MICRO 9:44 AM CDT HC MOD SEDATION, INIT 15 Routine 10/04/2019 MIN, =>5 YEARS 9:21 AM CDT IR BONE MARROW BIOPSY Routine 10/04/2019 9:21 AM CDT FL FLOW CYTOMETRY 10/04/2019 INTERPRETATION 16/> 9:20 AM CDT MARKERS LEUKEMIA/LYMPHOMA PNL, Routine 10/04/2019 BONE MARROW 9:20 AM CDT CHROMOSOMES BONE MARROW Routine 10/04/2019 9:20 AM CDT HC FE STAIN, BM ASP Routine 10/04/2019 9:20 AM CDT BONE MARROW ASP Routine 10/04/2019 9:20 AM CDT BONE MARROW BIOPSY Routine 10/04/2019 9:20 AM CDT MANUAL DIFF Routine 10/04/2019 6:54 AM CDT HC PT(INR) Routine 10/04/2019 6:54 AM CDT HC CBC W/ AUTOMATED DIFF Routine 10/04/2019 6:54 AM CDT HC URIC ACID Add on 10/04/2019 6:54 AM CDT HC PHOSPHOROUS, SERUM Routine 10/04/2019 6:54 AM CDT HC MAGNESIUM Routine 10/04/2019 6:54 AM CDT HC LD(LDH;LACTIC Routine 10/04/2019 DEHYDROGENASE) 6:54 AM CDT HC BASIC METABOLIC PANEL Routine 10/04/2019 6:54 AM CDT NM PET SCAN WHOLEBODY Routine 10/03/2019 (HEAD-TOES) 4:39 PM CDT CSF TUBE VOLUMES 10/03/2019 1:45 PM CDT FL FLOW CYTOMETRY INTERPJ 10/03/2019 2-8 MARKERS 1:45 PM CDT LEUKEMIA/LYMPHOMA PANEL Routine 10/03/2019 FLUID/TISSUE 1:45 PM CDT HC CELL COUNT W/DIFF-CSF STAT 10/03/2019 1:45 PM CDT HC TOTAL PROTEIN-CSF STAT 10/03/2019 1:45 PM CDT HC GLUCOSE-CSF STAT 10/03/2019 1:45 PM CDT IR LUMBAR PUNCTURE Routine 10/03/2019 1:41 PM CDT HC NON-INSECT CONTROL INSPECTOR/THIN PREP Routine 10/03/2019 12:30 PM CDT HC PT(INR) 10/03/2019 10:36 AM CDT HC CBC W/ AUTOMATED DIFF 10/03/2019 10:36 AM CDT HC PHOSPHOROUS, SERUM 10/03/2019 10:36 AM CDT HC MAGNESIUM 10/03/2019 10:36 AM CDT HC LD(LDH;LACTIC 10/03/2019 DEHYDROGENASE) 10:36 AM CDT HC BASIC METABOLIC PANEL 10/03/2019 10:36 AM CDT HEMODIALYSIS INPATIENT Routine 10/03/2019 8:20 AM CDT HEMODIALYSIS DATE Routine 10/02/2019 2:40 PM CDT HEMODIALYSIS INPATIENT Routine 10/02/2019 2:40 PM CDT HEMODIALYSIS INPATIENT Routine 10/02/2019 2:40 PM CDT CHEST 2 VIEWS STAT 10/02/2019 1:24 PM CDT POC GLUCOSE 10/02/2019 8:38 AM CDT HC HIV 1/2 ZIGGY AG SCREEN 10/02/2019 6:10 AM CDT HC HEPATITIS C ZIGGY 10/02/2019 6:10 AM CDT HC HEPATITIS B CORE 10/02/2019 ANTIBODY 6:10 AM CDT HC HEPATITIS B-S ANTIGEN 10/02/2019 6:10 AM CDT HC PT(INR) Routine 10/02/2019 6:10 AM CDT HC CBC W/ AUTOMATED DIFF Routine 10/02/2019 6:10 AM CDT HC PHOSPHOROUS, SERUM Routine 10/02/2019 6:10 AM CDT HC B-TYPE NATRIURETIC Add on 10/02/2019 PEPTIDE 6:10 AM CDT HC MAGNESIUM Routine 10/02/2019 6:10 AM CDT HC BETA 2 MICROGLOBULIN 10/02/2019 6:10 AM CDT HC BASIC METABOLIC PANEL Routine 10/02/2019 6:10 AM CDT POC GLUCOSE 10/01/2019 9:43 PM CDT HEMODIALYSIS DATE Routine 10/01/2019 5:33 PM CDT CBC STAT 10/01/2019 3:30 PM CDT HC COMPREHENSIVE STAT 10/01/2019 METABOLIC PANEL 3:30 PM CDT IR CENTRAL VENOUS Routine 10/01/2019 CATHETER 12:04 PM CDT HC ZINC(ZN) Routine 10/01/2019 10:12 AM CDT HC COPPER(CU) Routine 10/01/2019 10:12 AM CDT POC GLUCOSE 10/01/2019 9:36 AM CDT HC PT(INR) Routine 10/01/2019 6:37 AM CDT CBC AND DIFF Routine 10/01/2019 6:37 AM CDT HC URIC ACID Add on 10/01/2019 6:37 AM CDT HC PHOSPHOROUS, SERUM Routine 10/01/2019 6:37 AM CDT HC MAGNESIUM Routine 10/01/2019 6:37 AM CDT HC LD(LDH;LACTIC Add on 10/01/2019 DEHYDROGENASE) 6:37 AM CDT HC BASIC METABOLIC PANEL Routine 10/01/2019 6:37 AM CDT HC CBC W/ AUTOMATED DIFF Routine 10/01/2019 12:05 AM CDT CBC Add on 09/30/2019 3:14 PM CDT IR RENAL BIOPSY Routine 09/30/2019 11:33 AM CDT HC SPECIAL STAINS #2 MU 09/30/2019 (PATHOLOGY) 10:15 AM CDT MISCELLANEOUS SURGICAL 09/30/2019 PATHOLOGY REFERENCE LAB 10:15 AM CDT TEST MISC PETERSEN TEST 09/30/2019 10:15 AM CDT HC PT(INR) Routine 09/30/2019 6:02 AM CDT HC CBC W/ AUTOMATED DIFF Routine 09/30/2019 6:02 AM CDT HC PHOSPHOROUS, SERUM Routine 09/30/2019 6:02 AM CDT HC MAGNESIUM Routine 09/30/2019 6:02 AM CDT HC BASIC METABOLIC PANEL Routine 09/30/2019 6:02 AM CDT HC ELECTROPHORESIS-URINE Routine 09/29/2019 10:10 PM CDT HC CBC W/ AUTOMATED DIFF Routine 09/29/2019 5:51 AM CDT HC PHOSPHOROUS, SERUM Routine 09/29/2019 5:51 AM CDT HC MAGNESIUM Routine 09/29/2019 5:51 AM CDT HC BASIC METABOLIC PANEL Routine 09/29/2019 5:51 AM CDT HC CBC W/ AUTOMATED DIFF Routine 09/28/2019 6:58 AM CDT HC PHOSPHOROUS, SERUM Routine 09/28/2019 6:58 AM CDT HC MAGNESIUM Routine 09/28/2019 6:58 AM CDT HC BASIC METABOLIC PANEL Routine 09/28/2019 6:58 AM CDT HC SPECIAL STAINS #1 Routine 09/27/2019 (PATHOLOGY) 6:00 PM CDT FL FLOW CYTOMETRY 09/27/2019 INTERPRETATION 16/> 5:32 PM CDT MARKERS LEUKEMIA/LYMPHOMA PANEL Routine 09/27/2019 FLUID/TISSUE 5:32 PM CDT HC HSV PCR Routine 09/27/2019 5:32 PM CDT HC GRAM STAIN 09/27/2019 5:32 PM CDT HC CULTURE-LOWER RESP Routine 09/27/2019 5:32 PM CDT HC CMV DNA QN BY PCR Routine 09/27/2019 5:32 PM CDT HC CELL COUNT Routine 09/27/2019 W/DIFF-FLUIDS 5:32 PM CDT HC CELL BLOCK-CYTOLOGY Routine [...] Routine 09/27/2019 (IFES) 11:01 AM CDT HC IGG SUBCLASS (IGGSC) Routine 09/27/2019 11:01 AM CDT HC ALPHA FETO PROTEIN, Routine 09/27/2019 SERUM 11:01 AM CDT HC ELECTROPHORESIS-SERUM Routine 09/27/2019 11:01 AM CDT HC LACTIC ACID(LACTATE) Routine 09/27/2019 11:01 AM CDT HC LVL IV SRG PTH, GROSS Routine 09/27/2019 & MICRO 7:06 AM CDT LEUKEMIA-LYMPHOMA PANEL Routine 09/27/2019 BLOOD 4:11 AM CDT HC CA 19-9 Routine 09/27/2019 4:11 AM CDT HC CBC W/ AUTOMATED DIFF Routine 09/27/2019 4:11 AM CDT HC BASIC METABOLIC PANEL Routine 09/27/2019 4:11 AM CDT FL FLOW CYTOMETRY 09/27/2019 INTERPRETATION 16/> 4:00 AM CDT MARKERS HC CBC,AUTOMATED 09/26/2019 11:26 AM CDT HC LIPASE Add on 09/26/2019 11:26 AM CDT HC BASIC METABOLIC PANEL 09/26/2019 11:[address] ABD/PELV WO CONTRAST Routine 09/26/2019 10:59 AM CDT PFT COMPLETE PULM Routine 09/26/2019 FUNCTION 9:52 AM CDT HC CALCIUM-URINE(TIMED) Routine 09/25/2019 9:25 PM CDT HC SERINE PROTEASE 3 AB Routine 09/25/2019 5:15 PM CDT HC MICROPOLYSPORA FAENI Routine 09/25/2019 (HPNEU) 91 5:15 PM CDT HC ANTICARDIO LIPIN IGG Routine 09/25/2019 5:15 PM CDT HC ANTI-SCL 70 ANTIBODY Routine 09/25/2019 5:15 PM CDT HC ANTI-JOJO-1, SERUM Routine 09/25/2019 5:15 PM CDT HC CCP IGG ANTIBODY Routine 09/25/2019 5:15 PM CDT HC ALDOLASE Routine 09/25/2019 5:15 PM CDT HC ANTI-SSA Routine 09/25/2019 5:15 PM CDT HC IGA Routine 09/25/2019 5:15 PM CDT HC CK(CPK OR CREATINE Routine 09/25/2019 KINASE) 5:15 PM CDT HC RHEUMATOID Specimen 09/25/2019 FACTOR:QUANT in Lab 3:46 PM CDT HC ANTI-DNA WRANGELL Specimen 09/25/2019 in Lab 3:46 PM CDT HC ANGIOTEN CONV Specimen 09/25/2019 ENZYME(CECE)SER in Lab 3:46 PM CDT HC ANTI NUCLEAR ZIGGY SCRN Specimen 09/25/2019 in Lab 3:46 PM CDT HC HAPTOGLOBIN;QUANT Specimen 09/25/2019 in Lab 3:46 PM CDT TRANSFUSE RBC'S Routine 09/25/2019 2:26 PM CDT HC BLOOD TYPING, ABO STAT 09/25/2019 CONFIRM 91 9:35 AM CDT HC ABO GROUP Routine 09/25/2019 9:10 AM CDT FL BLOOD SMEAR PERIPHERAL Add on 09/25/2019 INTERP PHYS W/WRIT REPORT 4:00 AM CDT HC SED RATE; MANUAL Add on 09/25/2019 4:00 AM CDT HC RETICULOCYTE COUNT; Add on 09/25/2019 AUTO 4:00 AM CDT HC CBC W/ AUTOMATED DIFF Routine 09/25/2019 4:00 AM CDT HC C-REACTIVE PROTEIN Add on 09/25/2019 (CRP) 4:00 AM CDT HC LD(LDH;LACTIC Add on 09/25/2019 DEHYDROGENASE) 4:00 AM CDT HC COMPREHENSIVE Routine 09/25/2019 METABOLIC PANEL 4:[address] CHEST WO CONTRAST Routine 09/24/2019 9:47 PM CDT CHEST 2 VIEWS Routine 09/24/2019 1:41 PM CDT HC CBC W/ AUTOMATED DIFF Routine 09/24/2019 6:30 AM CDT HC COMPREHENSIVE Routine 09/24/2019 METABOLIC PANEL 6:30 AM CDT HC CBC W/ AUTOMATED DIFF Routine 09/23/2019 5:37 AM CDT HC COMPREHENSIVE Routine 09/23/2019 METABOLIC PANEL 5:37 AM CDT HC CBC W/ AUTOMATED DIFF Routine 09/22/2019 5:00 AM CDT HC COMPREHENSIVE Routine 09/22/2019 METABOLIC PANEL 5:00 AM CDT HC ACUTE HEPATITIS PANEL Routine 09/21/2019 6:29 AM CDT HC CBC W/ AUTOMATED DIFF Routine 09/21/2019 6:29 AM CDT HC COMPREHENSIVE Routine 09/21/2019 METABOLIC PANEL 6:29 AM CDT HC CBC W/ AUTOMATED DIFF Routine 09/20/2019 4:46 AM CDT HC COMPREHENSIVE Routine 09/20/2019 METABOLIC PANEL 4:46 AM CDT HC BASIC METABOLIC PANEL Routine 09/19/2019 4:23 PM CDT 2D + DOPPLER ECHO W/ Routine 09/19/2019 CONTRAST 2:11 PM CDT HC CULTURE-URINE Routine 09/19/2019 12:01 PM CDT HC CBC W/ AUTOMATED DIFF Routine 09/19/2019 7:21 AM CDT HC COMPREHENSIVE Routine 09/19/2019 METABOLIC PANEL 7:21 AM CDT BASIC METABOLIC PANEL Routine 09/18/2019 5:35 PM CDT HC BASIC METABOLIC PANEL Routine 09/18/2019 5:30 PM CDT US RENAL BLADDER COMPLETE Routine 09/18/2019 10:51 AM CDT US DOPPLER ABD PELV Routine 09/18/2019 RETROPER COMP 10:51 AM CDT HC TSH SCREEN Routine 09/18/2019 9:54 AM CDT HC PTT(APTT) Routine 09/18/2019 9:54 AM CDT HC PT(INR) Routine 09/18/2019 9:54 AM CDT HC OSMOLALITY;BLOOD Routine 09/18/2019 9:54 AM CDT HC FOLATE, SERUM Routine 09/18/2019 9:54 AM CDT HC VITAMIN B12 Routine 09/18/2019 9:54 AM CDT HC TP/CR RATIO, RANDOM Routine 09/18/2019 9:15 AM CDT HC OSMOLALITY-URINE Routine 09/18/2019 9:15 AM CDT HC CHLORIDE-URINE Routine 09/18/2019 9:15 AM CDT HC IRON BINDING CAPACITY Add on 09/18/2019 + %SAT 7:02 AM CDT HC RETICULOCYTE COUNT; Add on 09/18/2019 AUTO 7:02 AM CDT HC CBC W/ AUTOMATED DIFF Routine 09/18/2019 7:02 AM CDT HC COMPREHENSIVE Routine 09/18/2019 METABOLIC PANEL 7:02 AM CDT COVID-19 (SARS-COV-2) PCR Routine 09/18/2019 1:30 AM CDT URINALYSIS, MICROSCOPIC Routine 09/18/2019 1:30 AM CDT HC URINALYSIS, AUTO W Routine 09/18/2019 MICRO 1:30 AM CDT HC UREA NITROGEN-URINE Routine 09/18/2019 1:30 AM CDT HC SODIUM-URINE Routine 09/18/2019 1:30 AM CDT HC CREATININE-URINE Routine 09/18/2019 1:30 AM CDT HC PHOSPHOROUS, SERUM Routine 09/18/2019 1:30 AM CDT HC MAGNESIUM Routine 09/18/2019 1:30 AM CDT HC BLOOD Routine 09/18/2019 GASES;(CALCULATED 02) 1:30 AM CDT HC BASIC METABOLIC PANEL Routine 09/18/2019 1:30 AM CDT ECG 12-LEAD Routine 09/18/2019 12:30 AM CDT GENERAL RAD CHEST Routine 09/17/2019 EXTERNAL IMAGING 12:00 AM CDT TELEMETRY STRIPS-SCAN 09/17/2019 12:00 [...] AM CDT ECG-SCAN 09/17/2019 12:00 AM CDT ECG-SCAN 09/17/2019 12:00 AM CDT PROCEDURE RECORD-SCAN 09/17/2019 12:00 AM CDT documented in this encounter Results * CBC AND DIFF (10/11/2019 2:40 AM CDT) White Blood 6.2 4.5 - 11.0 K/UL [...] LAB Basophil Count Specimen Performing Organization Address City/State/Zipcode Ph one Number [facility] [address] [place] [address] * URIC ACID (10/11/2019 2:40 AM CDT) Uric Acid <1.5 (L) 2.0 - 7.0 MG/DL [facility] Specimen Blood Performing Organization Address [facility] one Number [facility] [address] [place] [address] * LDH-LACTATE DEHYDROGENASE (10/11/2019 2:40 AM CDT) Lactate 312 (H) 100 - 210 U/L [facility] Dehydrogenase Specimen Blood Performing Organization Address [facility] one Number [facility] [address] [place] [address] * PROTIME INR (PT) (10/11/2019 2:40 AM CDT) INR 1.2 0.8 - 1.2 [facility] Specimen Blood Performing Organization Address [facility] one Number [facility] [address] [place] [address] * COMPREHENSIVE METABOLIC PANEL (10/11/2019 2:40 AM CDT) Sodium 140 137 - 147 MMOL/L KU [...] (L) >60 mL/min [facility] Comment: Syrian The eGFR is not validated f or use in drug dosing adjustments. Continue to use estimated creatinine clearance per dosing reference text. Please contact the Clinical Pharmacist for questions. eGFR 23 (L) >60 mL/min [facility] Syrian Comment: The eGFR is not validated for use in drug dosing adjustments. Continue to use estimated creatinine clearance per dosing reference text. Please contact the Clinical Pharmacist for questions. Specimen Blood Performing Organization Address City/[facility]/Zipcode Ph one Number MAIN LAB [address] [place] [address] * BASIC METABOLIC PANEL (10/10/2019 5:11 PM CDT) [facility] Sodium 140 137 - 147 MMOL/L KU [...] (L) >60 mL/min [facility] Comment: Syrian The eGFR is not validated f or use in drug dosing adjustments. Continue to use estimated creatinine clearance per dosing reference text. Please contact the Clinical Pharmacist for questions. eGFR 33 (L) >60 mL/min [facility] Syrian Comment: The eGFR is not validated for use in drug dosing adjustments. Continue to use estimated creatinine clearance per dosing reference text. Please contact the Clinical Pharmacist for questions. Specimen Blood Performing Organization Address City/[facility] Ph one Number MAIN LAB [address] [place] [address] * HEMODIALYSIS INPATIENT (10/10/2019 3:02 PM CDT) Narrative Performed At Sri Knutson RN 10/10/2019 5: 04 PM 1320 Pt from IR to [facility] 2 s/p lumba r puncture. Placed on [...] kgs. Report given to Tiffany RN unit 42 * HEMODIALYSIS DATE (10/10/2019 3:02 PM CDT) Narrative Performed At Sri Knutson RN 10/10/2019 5: 04 PM 1320 Pt from IR to [facility] 2 s/p lumba r puncture. Placed [...] kgs. Report given to Tiffany RN unit 42 * IR LUMBAR PUNCTURE (10/10/2019 12:10 PM CDT) Specimen Impressions Performed At Fluoroscopic guided lumbar [...] on 10/10/2019 1:08 PM. Performing Organization Address [facility] one Number K[facility] RAD RESULTS * GLUCOSE-CSF (10/10/2019 11:54 AM CDT) Glucose,CSF 92 (H) 40 - 75 MG/DL [facility] Xanthochromia,C NONE [facility] SF Specimen Cerebrospinal fluid - Cerebrospinal Fluid Performing Organization Address [facility] one Number [facility] [address] [place] [address] * TOTAL PROTEIN-CSF (10/10/2019 11:54 AM CDT) Total 35 15 - 45 MG/DL [facility] Protein,CSF Specimen Cerebrospinal fluid - Cerebrospinal Fluid Performing Organization Address [facility] one Number [facility] [address] [place] [address] * CELL COUNT W/DIFF-CSF (10/10/2019 11:54 AM CDT) Cell Count TUBE 3 [facility] [...] FLUID ACUTE INFLAMMATION Pathologist INTERPRETED BY FROILAN CHASE M.D. [facility] AB Signature By the PATH SIGNATURE ABOVE , I attest that I have personally formulated the final interpretation expressed in this report and that the above diagnosis is based upon my examination of the slides and/or other material indicated in this report. Specimen Cerebrospinal fluid - Cerebrospinal Fluid Performing Organization Address [facility] one Number [facility] [address] [place] [address] * POC GLUCOSE (10/10/2019 11:37 AM CDT) Glucose, POC 133 (H) 70 - 100 MG/DL [facility] Specimen Performing Organization Address [facility] one Number [facility] [address] [place] [address] * URIC ACID, RASBURICASE (10/10/2019 9:20 AM CDT) Uric Acid, 5.0 2.0 - 7.0 mg/dL [facility] Rasburicase Specimen Blood Performing Organization Address [facility] one Number [facility] [address] [place] [address] * LDH-LACTATE DEHYDROGENASE (10/10/2019 2:20 AM CDT) Lactate 431 (H) 100 - 210 U/L [facility] Dehydrogenase Specimen Blood Performing Organization Address [facility] one Number [facility] [address] [place] [address] * PROTIME INR (PT) (10/10/2019 2:20 AM CDT) INR 1.1 0.8 - 1.2 [facility] Specimen Blood Performing Organization Address [facility] one Number [facility] [address] [place] [address] * COMPREHENSIVE METABOLIC PANEL (10/10/2019 2:20 AM CDT) Sodium 140 137 - 147 MMOL/L [facility] Potassium 4.3 3.5 - 5.1 MMOL/L [facility] Chloride 100 98 - 110 MMOL/L [facility] Glucose 170 (H) 70 - 100 MG/DL [facility] Blood Urea 88 (H) 7 - 25 MG/DL [facility] Nitrogen Creatinine 4.25 (H) 0.4 - 1.00 MG/DL [facility] Calcium 7.9 (L) 8.5 - 10.6 MG/DL [facility] Total Protein 5.4 (L) 6.0 - 8.0 G/DL [facility] Total Bilirubin 0.4 0.3 - 1.2 MG/DL [facility] Albumin 2.9 (L) 3.5 - 5.0 G/DL [facility] Alk Phosphatase 180 (H) 25 - 110 U/L [facility] AST (SGOT) 49 (H) 7 - 40 U/L [facility] CO2 23 21 - 30 MMOL/L [facility] ALT (SGPT) 49 7 - 56 U/L [facility] Anion Gap 17 (H) 3 - 12 MAIN LAB eGFR Non 10 (L) >60 mL/min MAIN LAB Comment: Syrian The eGFR is not validated f or use in drug dosing adjustments. Continue to use estimated creatinine clearance per dosing reference text. Please contact the Clinical Pharmacist for questions. eGFR 13 (L) >60 mL/min [facility] Syrian Comment: The eGFR is not validated for use in drug dosing adjustments. Continue to use estimated creatinine clearance per dosing reference text. Please contact the Clinical Pharmacist for questions. Specimen Blood Performing Organization Address City/[facility] Ph one Number MAIN LAB [address] [place] [address] * URIC ACID (10/10/2019 2:20 AM CDT) Uric Acid 5.9 2.0 - 7.0 MG/DL MAIN LAB Specimen Blood Performing Organization Address [facility] Ph one Number MAIN LAB [address] [place] [address] * PHOSPHORUS (10/10/2019 2:20 AM CDT) Phosphorus 6.8 (H) 2.0 - 4.5 MG/DL MAIN LAB Specimen Blood Performing Organization Address [facility] Ph one Number MAIN LAB [address] [place] [address] * CBC AND DIFF (10/10/2019 2:20 AM CDT) White Blood 21.4 (H) 4.5 - 11.0 K/UL MAIN LAB Cells RBC 2.68 (L) 4.0 - 5.0 M/UL [facility] Hemoglobin 8.3 (L) 12.0 - 15.0 GM/DL MAIN LAB Hematocrit 23.7 (L) 36 - 45 % MAIN LAB MCV 88.6 80 - 100 FL MAIN LAB MCH 31.0 26 - 34 PG MAIN LAB MCHC 35.0 32.0 - 36.0 G/DL MAIN LAB RDW 13.4 11 - 15 % [facility] Platelet Count 172 150 - 400 K/UL MAIN LAB MPV 6.9 (L) 7 - 11 FL MAIN LAB Neutrophils 97 (H) 41 - 77 % [facility] Lymphocytes 1 (L) 24 - 44 % [facility] Monocytes 1 (L) 4 - 12 % [facility] Eosinophils 0 0 - 5 % [facility] Basophils 1 0 - 2 % [facility] Absolute 21.07 (H) 1.8 - 7.0 K/UL [facility] Neutrophil Count Absolute Lymph 0.17 (L) 1.0 - 4.8 K/UL [facility] Count Absolute 0.10 0 - 0.80 K/UL [facility] Monocyte Count Absolute 0.00 0 - 0.45 K/UL [facility] Eosinophil Count Absolute 0.11 0 - 0.20 K/UL [facility] Basophil Count Specimen Blood Performing Organization Address City/[facility] Ph one Number MAIN LAB [address] [place] [address] * MAGNESIUM (10/10/2019 2:20 AM CDT) Magnesium 2.0 1.6 - 2.6 mg/dL [facility] Specimen Blood Performing Organization Address [facility] Ph one Number MAIN LAB [address] [place] [address] * URIC ACID, RASBURICASE (10/09/2019 10:00 PM CDT) Uric Acid, 7.6 (H) 2.0 - 7.0 mg/dL [facility] Rasburicase Specimen Blood Performing Organization Address [facility] Ph one Number MAIN LAB [address] [place] [address] * BASIC METABOLIC PANEL (10/09/2019 4:30 PM CDT) Sodium 139 137 - 147 MMOL/L [facility] Potassium 4.3 3.5 - 5.1 MMOL/L [facility] Chloride 100 98 - 110 MMOL/L [facility] CO2 25 21 - 30 MMOL/L [facility] Anion Gap 14 (H) 3 - 12 [facility] Glucose 151 (H) 70 - 100 MG/DL [facility] Blood Urea 76 (H) 7 - 25 MG/DL [facility] Nitrogen Creatinine 3.98 (H) 0.4 - 1.00 MG/DL [facility] Calcium 7.8 (L) 8.5 - 10.6 MG/DL [facility] eGFR Non 11 (L) >60 mL/min [facility] Comment: Syrian The eGFR is not validated f or use in drug dosing adjustments. Continue to use estimated creatinine clearance per dosing reference text. Please contact the Clinical Pharmacist for questions. eGFR 14 (L) >60 mL/min MAIN LAB Syrian Comment: The eGFR is not validated for use in drug dosing adjustments. Continue to use estimated creatinine clearance per dosing reference text. Please contact the Clinical Pharmacist for questions. Specimen Blood Performing Organization Address [facility] Ph one Number MAIN LAB [address] [place] [address] * URIC ACID (10/09/2019 4:30 PM CDT) Uric Acid 8.0 (H) 2.0 - 7.0 MG/DL MAIN LAB Specimen Blood Performing Organization Address [facility] one Number MAIN LAB [address] [place] [address] * PHOSPHORUS (10/09/2019 4:30 PM CDT) Phosphorus 6.5 (H) 2.0 - 4.5 MG/DL MAIN LAB Specimen Blood Performing Organization Address [facility] one Number MAIN LAB [address] [place] [address] * VRE SCREEN (10/09/2019 11:46 AM CDT) Battery Name VRE SCREEN MAIN LAB Specimen PERIRECTAL SWAB MAIN LAB Description Special NONE MAIN LAB Requests Culture NO VRE ISOLATED MAIN LAB Report Status FINAL MAIN LAB 10/11/2019 Specimen Perirectal Swab Performing Organization Address [facility] one Number MAIN LAB [address] [place] [address] * LDH-LACTATE DEHYDROGENASE (10/09/2019 3:00 AM CDT) Lactate 439 (H) 100 - 210 U/L MAIN LAB Dehydrogenase Specimen Blood Performing Organization Address [facility] one Number MAIN LAB [address] [place] [address] * PROTIME INR (PT) (10/09/2019 3:00 AM CDT) INR 1.1 0.8 - 1.2 [facility] Specimen Blood Performing Organization Address City/[facility] Ph one Number [facility] [address] [place] [address] * COMPREHENSIVE METABOLIC PANEL (10/09/2019 3:00 AM CDT) Sodium 140 137 - 147 MMOL/L [facility] Potassium 4.0 3.5 - 5.1 MMOL/L [facility] Chloride 100 98 - 110 MMOL/L [facility] Glucose 151 (H) 70 - 100 MG/DL [facility] Blood Urea 62 (H) 7 - 25 MG/DL [facility] Nitrogen Creatinine 3.31 (H) 0.4 - 1.00 MG/DL [facility] Calcium 8.0 (L) 8.5 - 10.6 MG/DL [facility] Total Protein 5.6 (L) 6.0 - 8.0 G/DL [facility] Total Bilirubin 0.5 0.3 - 1.2 MG/DL [facility] Albumin 2.9 (L) 3.5 - 5.0 G/DL [facility] Alk Phosphatase 120 (H) 25 - 110 U/L [facility] AST (SGOT) 43 (H) 7 - 40 U/L [facility] CO2 26 21 - 30 MMOL/L [facility] ALT (SGPT) 37 7 - 56 U/L [facility] Anion Gap 14 (H) 3 - 12 [facility] eGFR Non 14 (L) >60 mL/min [facility] Comment: Syrian The eGFR is not validated f or use in drug dosing adjustments. Continue to use estimated creatinine clearance per dosing reference text. Please contact the Clinical Pharmacist for questions. eGFR 17 (L) >60 mL/min [facility] Syrian Comment: The eGFR is not validated for use in drug dosing adjustments. Continue to use estimated creatinine clearance per dosing reference text. Please contact the Clinical Pharmacist for questions. Specimen Blood Performing Organization Address City/[facility] Ph one Number [facility] [address] [place] [address] * URIC ACID (10/09/2019 3:00 AM CDT) Uric Acid 7.5 (H) 2.0 - 7.0 MG/DL [facility] Specimen Blood Performing Organization Address City/[facility] Ph one Number [facility] [address] [place] [address] * PHOSPHORUS (10/09/2019 3:00 AM CDT) Phosphorus 5.1 (H) 2.0 - 4.5 MG/DL [facility] Specimen Blood Performing Organization Address [facility] one Number [facility] [address] [place] [id number] * CBC AND DIFF (10/09/2019 3:00 AM CDT) White Blood 30.7 (H) 4.5 - 11.0 K/UL [facility] Cells RBC 2.71 (L) 4.0 - 5.0 M/UL [facility] Hemoglobin 8.1 (L) 12.0 - 15.0 GM/DL [facility] Hematocrit 23.8 (L) 36 - 45 % [facility] MCV 87.8 80 - 100 FL [facility] MCH 30.0 26 - 34 PG [facility] MCHC 34.2 32.0 - 36.0 G/DL [facility] RDW 13.6 11 - 15 % [facility] Platelet Count 219 150 - 400 K/UL [facility] MPV 6.9 (L) 7 - 11 FL [facility] Neutrophils 98 (H) 41 - 77 % [facility] Lymphocytes 1 (L) 24 - 44 % [facility] Monocytes 1 (L) 4 - 12 % [facility] Eosinophils 0 0 - 5 % [facility] Basophils 0 0 - 2 % [facility] Absolute 30.19 (H) 1.8 - 7.0 K/UL [facility] Neutrophil Count Absolute Lymph 0.25 (L) 1.0 - 4.8 K/UL [facility] Count Absolute 0.18 0 - 0.80 K/UL [facility] Monocyte Count Absolute 0.00 0 - 0.45 K/UL [facility] Eosinophil Count Absolute 0.06 0 - 0.20 K/UL [facility] Basophil Count Specimen Blood Performing Organization Address [facility] one Number [facility] [address] [place] [address] * MAGNESIUM (10/09/2019 3:00 AM CDT) Magnesium 2.0 1.6 - 2.6 mg/dL [facility] Specimen Blood Performing Organization Address [facility] Ph one Number [facility] [address] [place] [address] * BASIC METABOLIC PANEL (10/08/2019 4:33 PM CDT) Sodium 139 137 - 147 MMOL/L MAIN LAB Potassium 4.1 3.5 - 5.1 MMOL/L MAIN LAB Chloride 100 98 - 110 MMOL/L [facility] CO2 25 21 - 30 MMOL/L [facility] Anion Gap 14 (H) 3 - 12 [facility] Glucose 153 (H) 70 - 100 MG/DL MAIN LAB Blood Urea 49 (H) 7 - 25 MG/DL MAIN LAB Nitrogen Creatinine 2.86 (H) 0.4 - 1.00 MG/DL [facility] Calcium 7.8 (L) 8.5 - 10.6 MG/DL MAIN LAB eGFR Non 16 (L) >60 mL/min MAIN LAB Comment: Syrian The eGFR is not validated f or use in drug dosing adjustments. Continue to use estimated creatinine clearance per dosing reference text. Please contact the Clinical Pharmacist for questions. eGFR 20 (L) >60 mL/min MAIN LAB Syrian Comment: The eGFR is not validated for use in drug dosing adjustments. Continue to use estimated creatinine clearance per dosing reference text. Please contact the Clinical Pharmacist for questions. Specimen Blood Performing Organization Address City/[facility] Ph one Number MAIN LAB [address] [place] [address] * URIC ACID (10/08/2019 4:33 PM CDT) Uric Acid 6.7 2.0 - 7.0 MG/DL MAIN LAB Specimen Blood Performing Organization Address City/State/Zipcode Ph one Number MAIN LAB [address] [place] [address] * PHOSPHORUS (10/08/2019 4:33 PM CDT) Phosphorus 5.6 (H) 2.0 - 4.5 MG/DL MAIN LAB Specimen Blood Performing Organization Address City/[facility] Ph one Number MAIN LAB [address] [place] [address] * TRANSFUSE RBC'S (10/08/2019 10:20 AM CDT) Specimen Blood * TRANSFUSE RBC'S (10/08/2019 10:20 AM CDT) Specimen Blood * LDH-LACTATE DEHYDROGENASE (10/08/2019 3:15 AM CDT) Lactate 507 (H) 100 - 210 U/L [facility]IN [facility] Dehydrogenase Specimen Performing Organization Address [facility] one Number MAIN LAB [address] [place] [address] * TYPE & CROSSMATCH (10/08/2019 3:15 AM CDT) Units Ordered 1 [facility]IN [facility] Crossmatch 10/11/2019,2359 [facility] Expires Record Check FOUND [facility] ABO/RH(D) A POS [facility] Antibody Screen NEG [facility] Electronic YES [facility] Crossmatch Unit Number [id number] [facility] Blood Component RBC,ADSOL,LEUKO REDUCED [facility] Type Unit Division 0 [facility] Status OF Unit DISCARDED [facility] Transfusion OK TO TRANSFUSE [facility] Status Crossmatch COMPATIBLE,ELECTRONIC [facility] Result Unit Number [id number] MAIN LAB Blood Component RBC,ADSOL,LEUKO [facility] Type REDUCED,IRRADIATED Unit Division 0 [facility] Status OF Unit TRANSFUSED [facility] Transfusion OK TO TRANSFUSE [facility] Status Crossmatch COMPATIBLE,ELECTRONIC [facility] Result Specimen Blood Performing Organization Address [facility] one Number MAIN LAB [address] [place] [address] * PROTIME INR (PT) (10/08/2019 3:15 AM CDT) INR 1.1 0.8 - 1.2 [facility] Specimen Blood Performing Organization Address [facility] one Number MAIN LAB [address] [place] [address] * COMPREHENSIVE METABOLIC PANEL (10/08/2019 3:15 AM CDT) Sodium 137 137 - 147 MMOL/L [facility] Potassium 4.1 3.5 - 5.1 MMOL/L [facility] Chloride 98 98 - 110 MMOL/L [facility] Glucose 137 (H) 70 - 100 MG/DL [facility] Blood Urea 30 (H) 7 - 25 MG/DL [facility] Nitrogen Creatinine 2.08 (H) 0.4 - 1.00 MG/DL [facility] Calcium 8.0 (L) 8.5 - 10.6 MG/DL [facility] Total Protein 5.5 (L) 6.0 - 8.0 G/DL [facility]IN [facility] Total Bilirubin 0.4 0.3 - 1.2 MG/DL [facility] Albumin 2.8 (L) 3.5 - 5.0 G/DL [facility] Alk Phosphatase 129 (H) 25 - 110 U/L [facility] AST (SGOT) 33 7 - 40 U/L [facility] CO2 27 21 - 30 MMOL/L [facility] ALT (SGPT) 24 7 - 56 U/L [facility] Anion Gap 12 3 - 12 [facility] MAIN [facility] eGFR Non 24 (L) >60 mL/min [facility] MAIN [facility] Comment: Syrian The eGFR is not validated f or use in drug dosing adjustments. Continue to use estimated creatinine clearance per dosing reference text. Please contact the Clinical Pharmacist for questions. eGFR 29 (L) >60 mL/min [facility] Syrian Comment: The eGFR is not validated for use in drug dosing adjustments. Continue to use estimated creatinine clearance per dosing reference text. Please contact the Clinical Pharmacist for questions. Specimen Blood Performing Organization Address City/[facility] Ph one Number MAIN LAB [address] [place] [address] * URIC ACID (10/08/2019 3:15 AM CDT) Uric Acid 4.9 2.0 - 7.0 MG/DL MAIN LAB Specimen Blood Performing Organization Address [facility] Ph one Number MAIN LAB [address] [place] [address] * PHOSPHORUS (10/08/2019 3:15 AM CDT) Phosphorus 4.3 2.0 - 4.5 MG/DL MAIN LAB Specimen Blood Performing Organization Address [facility] Ph one Number MAIN LAB [address] [place] [address] * CBC AND DIFF (10/08/2019 3:15 AM CDT) White Blood 11.2 (H) 4.5 - 11.0 K/UL [facility] MAIN [facility] Cells RBC 2.23 (L) 4.0 - 5.0 M/UL [facility]IN [facility] Hemoglobin 6.7 (L) 12.0 - 15.0 GM/DL [facility] MAIN LAB Hematocrit 19.9 (L) 36 - 45 % [facility] MAIN [facility] MCV 89.0 80 - 100 FL [facility] MAIN [facility] MCH 30.1 26 - 34 PG [facility] MAIN [facility] MCHC 33.8 32.0 - 36.0 G/DL [facility] MAIN [facility] RDW 12.9 11 - 15 % [facility] MAIN [facility] Platelet Count 213 150 - 400 K/UL [facility] MAIN [facility] MPV 6.6 (L) 7 - 11 FL [facility]IN [facility] Neutrophils 98 (H) 41 - 77 % [facility] Lymphocytes 1 (L) 24 - 44 % [facility] Monocytes 1 (L) 4 - 12 % [facility] Eosinophils 0 0 - 5 % [facility] Basophils 0 0 - 2 % [facility] Absolute 10.97 (H) 1.8 - 7.0 K/UL [facility] MAIN [facility] Neutrophil Count Absolute Lymph 0.14 (L) 1.0 - 4.8 K/UL [facility] MAIN [facility] Count Absolute 0.12 0 - 0.80 K/UL [facility] MAIN [facility] Monocyte Count Absolute 0.00 0 - 0.45 K/UL [facility] MAIN [facility] Eosinophil Count Absolute 0.01 0 - 0.20 K/UL [facility] MAIN [facility] Basophil Count Specimen Blood Performing Organization Address [facility] Ph one Number [facility] MAIN [facility] [address] [place] [id number] * MAGNESIUM (10/08/2019 3:15 AM CDT) Pathologist [facility] Magnesium 2.0 1.6 - 2.6 mg/dL [facility] MAIN [facility] Specimen Blood Performing Organization Address [facility] Ph one Number [facility] MAIN [facility] [address] [place] [address] * BASIC METABOLIC PANEL (10/07/2019 7:00 PM CDT) Sodium 139 137 - 147 MMOL/L [facility] MAIN [facility] Potassium 3.7 3.5 - 5.1 MMOL/L [facility] MAIN [facility] Chloride 100 98 - 110 MMOL/L [facility] MAIN LAB CO2 30 21 - 30 MMOL/L [facility] Anion Gap 9 3 - 12 [facility] Glucose 92 70 - 100 MG/DL [facility] Blood Urea 18 7 - 25 MG/DL [facility] Nitrogen Creatinine 1.45 (H) 0.4 - 1.00 MG/DL [facility] Calcium 8.0 (L) 8.5 - 10.6 MG/DL [facility] eGFR Non 36 (L) >60 mL/min MAIN LAB Comment: Syrian The eGFR is not validated f or use in drug dosing adjustments. Continue to use estimated creatinine clearance per dosing reference text. Please contact the Clinical Pharmacist for questions. eGFR 43 (L) >60 mL/min [facility] Syrian Comment: The eGFR is not validated for use in drug dosing adjustments. Continue to use estimated creatinine clearance per dosing reference text. Please contact the Clinical Pharmacist for questions. Specimen Blood Performing Organization Address [facility] Ph one Number MAIN LAB [address] [place] [address] * URIC ACID (10/07/2019 7:00 PM CDT) Uric Acid 2.4 2.0 - 7.0 MG/DL MAIN LAB Specimen Blood Performing Organization Address [facility] one Number MAIN LAB [address] [place] [address] * PHOSPHORUS (10/07/2019 7:00 PM CDT) Phosphorus 2.9 2.0 - 4.5 MG/DL [facility] Specimen Blood Performing Organization Address [facility] one Number MAIN LAB [address] [place] [address] * HEMODIALYSIS INPATIENT (10/07/2019 6:57 PM CDT) Narrative Performed At Anurag Hanson RN 10/07/2019 6:59 PM Hemodialysis Procedure Report Report recieved from Primary Care RN, Sergio gonzalez RN at 1230. Hemodialysis treatment performed [facility] [place] 03.. Patient ID verified and consent signed: [...] and estimated time off. TX END TIME: 1807. Net UF: 1L. End Weig ht: 78.2 kg. Tunneled Hemodialysis Line flushed and packed. Red end caps placed. Report given to Primary Care RNMarcus RN at 1825. See Hemodialysis Flow Sheet and MAR for details. * HEMODIALYSIS DATE (10/07/2019 6:57 PM CDT) Narrative Performed At Anurag Hanson RN 10/07/2019 6:59 PM Hemodialysis Procedure Report Report recieved from Primary Care RNSergio RN at 1230. Hemodialysis treatment performed [facility] [place] 03.. Patient ID verified and consent signed: [...] and estimated time off. TX END TIME: 180. Net UF: 1L. End Weig ht: 78.2 kg. Tunneled Hemodialysis Line flushed and packed. Red end caps placed. Report given to Primary Care RNMarcus RN at 1825. See Hemodialysis Flow Sheet and MAR for details. * IR LUMBAR PUNCTURE (10/07/2019 1:35 PM CDT) Specimen Impressions Performed At Successful fluoroscopically guided lumbar puncture. [facility] IR provided chemotherapy intrathecal ad ministration. Approved by Evaristo Edmond MD on 2019 1:46 PM By my electronic signature, I attest th at I have personally reviewed the images for this examination and formulated the interpretations and opinions expressed in this report Finalized by Ruy Mcguire M.D. on 020 1:50 PM. Dictated by Evaristo Edmond MD on 10/07/2019 1:39 PM. Narrative Performed At Lumbar Puncture with Chemotherapy Administration: [facility] RES[facility] History: Diffuse large B-cell lymphoma. Operators: Ruy Edmond M.D. Medication: 5 mL Subcutaneous lidocaine solution Technique and Findings: The risks and benefits of the exam were explained to the patient beforehand; the patient provided written and verbal con sent. Using fluoroscopy, an appropriate inser tion site at the L2/L3 level was marked. The patient was prepped and draped in the usual sterile fashion and approximately 5 cc of lidocaine was use d for local anesthesia. Under fluoroscopic guidance, a spinal needle was inserted into the thecal sac with return of clear fluid. Approximately 8 cc of CSF fluid was collected and sent to pathology per requesting physicians orders. Chemotherapy was then personally administered per the order set. The nee dle was removed and the patient escorted from fluoroscopy for continued care. The patient tolerated the procedure well. Procedure Note Interface, Radiant Results - 10/07/2019 1:54 PM CDT Lumbar Puncture with Chemotherapy Administration: History: Diffuse large B-cell lymphoma. Operators: Ruy Edmond M.D. Medication: 5 mL Subcutaneous lidocaine solution Technique and Findings: The risks and benefits of the exam were explained to the patient beforehand; the patient provided written and verbal consent. Using fluoroscopy, an appropriate insertion site at the L2/L3 level was marked. The patient was prepped and draped in the usual sterile fashion and approximately 5 cc of lidocaine was used for local anesthesia. Under fluoroscopic guidance, a spinal needle was inserted into the thecal sac with return of clear fluid. Approximately 8 cc of CSF fluid was collected and sent to pathology per requesting physicians orders. Chemotherapy was then personally administered per the order set. The needle was removed and the patient escorted from fluoroscopy for continued care. The patient tolerated the procedure well. IMPRESSION Successful fluoroscopically guided lumbar puncture. IR provided chemotherapy intrathecal administration. Approved by Evaristo Edmond MD on 10/07/2019 1:46 PM By my electronic signature, I attest that I have personally reviewed the images for this examination and formulated the interpretations and opinions expressed in this report Finalized by Ruy Mcguire M.D. on 10/07/2019 1:50 PM. Dictated by Evaristo Edmond MD on 10/07/2019 1:39 PM. Performing Organization Address City/State/Zipcode Ph one Number [facility] RESULTS * FLOW CYTOMETRY (10/07/2019 1:10 PM CDT) PATHOLOGY [facility] [email or web address] Rubin Mcintosh MD, Director of Flow Cytometry Laboratory Department of Pathology and Laboratory Medicine [address] [place] [id number] Surgical Pathology Office: [phone] FLOW CYTOMETRY REPORT NAME: MARY TIM SURG PATH #: [id number] MR #: [id number] SPECIMEN CLASS: LC BILLING #: [id number] ALT ID #: LOCATION: 42 DATE OF PROCEDURE: 10/07/2019 AGE: 69 SEX: F DATE RECEIVED: 10/07/2019 : 1950 TIME RECEIVED: 15:35 PHYSICIAN: JULIAN MALLOY MD DATE OF REPORT: 10/08/2019 COPY TO: MD LUIS CARLOS STANLEY DO DATE OF PRINTIN10/08/2019 Material Received: [...] in this report. +++Electronically Signed Out By+++ diamond/10/08/2019 Interpreted by: Eloy Yin MD 10/08/2019 ############################## ############################## ############ Lab Data: Flow Cytometry - B Cell Panel B Cell Associated Markers (% Positive Cells): CD19 = 0; CD20 = 0; [place] = 0; Lambda = 0; [place]/Lambda ratio = n/a T Cell Associated Markers (% Positive Cells): CD5 = 93 Miscellaneous Markers (% Positive Cells): CD10 = 0; CD38 = 21; CD45 = 100 Cell Viability (%): qns Number of Cells Analyzed: 230 Total Number of Markers: 8 Summary of Marker Combinations: [place]/Lambda/5/19/38/45/10/20 This test was developed and its performance characteristics determined by the [facility] Flow Cytometry Laboratory. It has not been cleared or approved by the U.S. Food and Drug Administration (FDA). The FDA has determined that such clearance or approval is not necessary. Specimen Performing Organization Address [facility] one Number MAIN LAB [address] [place] [address] * CSF TUBE VOLUMES (10/07/2019 1:10 PM CDT) CSF Tube 1 3.0 mL [facility] RESULTS CSF Tube 2 3.0 mL [facility] RESULTS CSF Tube 3 2.0 mL [facility] RESULTS CSF Tube 4 0.0 mL [facility] RESULTS Specimen Performing Organization Address [facility] one Number [facility] LAB RESULTS * LEUKEMIA/LYMPHOMA PANEL FLUID/TISSUE (10/07/2019 1:10 PM CDT) Pathologist [facility] Leuk/Lymph SEE PATHOLOGY REPORT MAIN LAB Interpretation Specimen/LLM CSF MAIN LAB Specimen Cerebrospinal Fluid Performing Organization [facility] one Number MAIN LAB [address] [place] [address] * GLUCOSE-CSF (10/07/2019 1:10 PM CDT) Pathologist [facility] Glucose,CSF 104 (H) 40 - 75 MG/DL MAIN LAB Xanthochromia,C NONE MAIN LAB SF Specimen Cerebrospinal fluid - Cerebrospinal Fluid Performing Organization [facility] one Number MAIN LAB [address] [place] [address] * TOTAL PROTEIN-CSF (10/07/2019 1:10 PM CDT) Total 34 15 - 45 MG/DL MAIN LAB Protein,CSF Specimen Cerebrospinal fluid - Cerebrospinal Fluid Performing Organization Address [facility] one Number MAIN LAB [address] [place] [address] * CELL COUNT W/DIFF-CSF (10/07/2019 1:10 PM CDT) Cell Count TUBE 3 [facility] LAB Tube,CSF White Blood 1 <5 /UL [facility] Cells,CSF Red Blood 23 /UL MAIN LAB Cells,CSF Neutrophils, 17 % MAIN LAB CSF Lymphocytes, 45 % [facility] CSF Monocyte/Hisoto 38 % MAIN LAB cyte, CSF Clarity,CSF CLEAR MAIN LAB Path NEGATIVE FOR ATYPICAL [facility] Interpretation, HEMATOPOIETIC CELLS CSF Pathologist INTERPRETED BY FROILAN CHASE M.D. MAIN L AB Signature By the PATH SIGNATURE ABOVE , I attest that I have personally formulated the final interpretation expressed in this report and that the above diagnosis is based upon my examination of the slides and/or other material indicated in this report. Specimen Cerebrospinal fluid - Cerebrospinal Fluid Performing Organization Address [facility] Ph one Number MAIN LAB [address] [place] [address] * POC GLUCOSE (10/07/2019 12:48 PM CDT) Glucose, POC 175 (H) 70 - 100 MG/DL [facility] LAB Specimen Performing Organization Address City/[facility] Ph one Number [facility] [address] [place] [address] * CYTOLOGY FLUIDS (10/07/2019 11:30 AM CDT) Cytology [facility] [email or web address] Department of Pathology and Laboratory Medicine [address] [place] [address] Surgical Pathology Office: [phone] CYTOLOGY REPORT NAME: MARY TIM CYTOLOGY #: [id number] MR #: [id number] ALT ID #: BILLING #: [id number] LOCATION: 42 DATE OF PROCEDURE: 10/07/2019 AGE: 69 SEX: F DATE RECEIVED: 10/08/2019 : 1950 TIME RECEIVED: 09:52 PHYSICIAN: JULIAN MALLOY MD DATE OF REPORT: 10/08/2019 COPY TO: LUIS CARLOS VELEZ DO DATE OF PRINTIN10/08/2019 Material Received: A: Cerebrospinal Fluid History: 69-year-old female with a history of diffuse large B cell lymphoma. Gross Description: ( 1 ThinPrep) 1.5mLs of clear colorless fluid. ############################## ############################## ############ Final Diagnosis: A. Cerebrospinal Fluid: Negative for malignant cells. Please also see concurrent flow cytometry report ([id number]). Attestation: By this signature, I attest that I have personally formulated the final interpretation expressed in this report and that the above diagnosis is based upon my examination of the slides and/or other material indicated in this report. +++Electronically Signed Out By+++ /10/08/2019 Interpreted by: MD Frank Funez MD Resident Specimen Cerebrospinal Fluid Performing Organization Address City/State/Zipcode Ph one Number MAIN LAB [address] [place] [address] * CHEST SINGLE VIEW (10/07/2019 4:00 AM [...] been interval placement of a left jugular [id number] catheter. The multilumen right jugular venous line [...] been interval placement of a left jugular Dgwyyz-e-Dbgc catheter. The multilumen right jugular venous line [...] on 10/07/2019 7:47 AM. Performing Organization Address [facility] one Number [facility] RESULTS * LDH-LACTATE DEHYDROGENASE (10/07/2019 2:25 AM CDT) Lactate 722 (H) 100 - 210 U/L MAIN LAB Dehydrogenase Specimen Blood Performing Organization Address [facility] one Number MAIN LAB [address] [place] [address] * PROTIME INR (PT) (10/07/2019 2:25 AM CDT) INR 1.1 0.8 - 1.2 MAIN LAB Specimen Blood Performing Organization Address [facility] one Number MAIN LAB [address] [place] [address] * COMPREHENSIVE METABOLIC PANEL (10/07/2019 2:25 AM CDT) Sodium 137 137 - 147 MMOL/L [facility] MAIN LAB Potassium 4.4 3.5 - 5.1 MMOL/L [facility] Chloride 100 98 - 110 MMOL/L [facility] MAIN [facility] Glucose 175 (H) 70 - 100 MG/DL [facility] MAIN [facility] Blood Urea 59 (H) 7 - 25 MG/DL [facility] MA[facility] Nitrogen Creatinine 3.78 (H) 0.4 - 1.00 MG/DL [facility] MA[facility] Calcium 7.9 (L) 8.5 - 10.6 MG/DL [facility] MA[facility] Total Protein 5.6 (L) 6.0 - 8.0 G/DL [facility] Total Bilirubin 0.3 0.3 - 1.2 MG/DL [facility] MA[facility] Albumin 2.8 (L) 3.5 - 5.0 G/DL [facility] MA[facility] Alk Phosphatase 149 (H) 25 - 110 U/L [facility] MA[facility] AST (SGOT) 60 (H) 7 - 40 U/L [facility] CO2 23 21 - 30 MMOL/L [facility] ALT (SGPT) 28 7 - 56 U/L [facility] Anion Gap 14 (H) 3 - 12 [facility] eGFR Non 12 (L) >60 mL/min [facility] MAIN [facility] Comment: Syrian The eGFR is not validated f or use in drug dosing adjustments. Continue to use estimated creatinine clearance per dosing reference text. Please contact the Clinical Pharmacist for questions. eGFR 14 (L) >60 mL/min [facility] Syrian Comment: The eGFR is not validated for use in drug dosing adjustments. Continue to use estimated creatinine clearance per dosing reference text. Please contact the Clinical Pharmacist for questions. Specimen Blood Performing Organization Address [facility] Ph one Number MAIN LAB [address] [place] [address] * URIC ACID (10/07/2019 2:25 AM CDT) Uric Acid 6.0 2.0 - 7.0 MG/DL MAIN LAB Specimen Blood Performing Organization Address [facility] Ph one Number MAIN LAB [address] [place] [address] * PHOSPHORUS (10/07/2019 2:25 AM CDT) Phosphorus 5.9 (H) 2.0 - 4.5 MG/DL [facility] MAIN [facility] Specimen Blood Performing Organization Address [facility] Ph one Number MAIN LAB [address] [place] [address] * CBC AND DIFF (10/07/2019 2:25 AM CDT) White Blood 13.6 (H) 4.5 - 11.0 K/UL [facility] MAIN [facility] Cells RBC 2.35 (L) 4.0 - 5.0 M/UL [facility] Hemoglobin 7.2 (L) 12.0 - 15.0 GM/DL [facility] MAIN LAB Hematocrit 21.3 (L) 36 - 45 % [facility] MAIN [facility] MCV 90.7 80 - 100 FL [facility] MAIN [facility] MCH 30.8 26 - 34 PG [facility] MAIN LAB MCHC 34.0 32.0 - 36.0 G/DL [facility] MAIN [facility] RDW 13.2 11 - 15 % [facility] MA[facility] Platelet Count 237 150 - 400 K/UL [facility] MPV 6.7 (L) 7 - 11 FL [facility] MAIN [facility] Neutrophils 96 (H) 41 - 77 % [facility] MA[facility] Lymphocytes 2 (L) 24 - 44 % [facility] MAIN [facility] Monocytes 2 (L) 4 - 12 % [facility] MA[facility] Eosinophils 0 0 - 5 % [facility] Basophils 0 0 - 2 % [facility] MAIN [facility] Absolute 13.14 (H) 1.8 - 7.0 K/UL [facility] MAIN LAB Neutrophil Count Absolute Lymph 0.23 (L) 1.0 - 4.8 K/UL [facility] MAIN [facility] Count Absolute 0.20 0 - 0.80 K/UL [facility] MAIN LAB Monocyte Count Absolute 0.01 0 - 0.45 K/UL [facility] MAIN LAB Eosinophil Count Absolute 0.02 0 - 0.20 K/UL [facility] MAIN LAB Basophil Count Specimen Blood Performing Organization Address [facility] Ph one Number [facility] MAIN LAB [address] [place] [address] * MAGNESIUM (10/07/2019 2:25 AM CDT) Magnesium 2.0 1.6 - 2.6 mg/dL [facility] MAIN LAB Specimen Blood Performing Organization Address City/[facility] Ph one Number MAIN LAB [address] [place] [address] * BASIC METABOLIC PANEL (10/06/2019 4:21 PM CDT) Sodium 140 137 - 147 MMOL/L [facility] MAIN LAB Potassium 3.9 3.5 - 5.1 MMOL/L [facility] MA[facility] Chloride 102 98 - 110 MMOL/L [facility] MAIN [facility] CO2 23 21 - 30 MMOL/L [facility] MAIN [facility] Anion Gap 15 (H) 3 - 12 [facility] MAIN LAB Glucose 140 (H) 70 - 100 MG/DL [facility] MAIN [facility] Blood Urea 43 (H) 7 - 25 MG/DL [facility] MAIN [facility] Nitrogen Creatinine 3.52 (H) 0.4 - 1.00 MG/DL [facility] MAIN LAB Calcium 7.6 (L) 8.5 - 10.6 MG/DL [facility] MAIN LAB eGFR Non 13 (L) >60 mL/min MAIN LAB Comment: Syrian The eGFR is not validated f or use in drug dosing adjustments. Continue to use estimated creatinine clearance per dosing reference text. Please contact the Clinical Pharmacist for questions. eGFR 16 (L) >60 mL/min [facility] MAIN [facility] Syrian Comment: The eGFR is not validated for use in drug dosing adjustments. Continue to use estimated creatinine clearance per dosing reference text. Please contact the Clinical Pharmacist for questions. Specimen Blood Performing Organization Address [facility] Ph one Number MAIN LAB [address] [place] [address] * URIC ACID (10/06/2019 4:21 PM CDT) Uric Acid 4.6 2.0 - 7.0 MG/DL MAIN LAB Specimen Blood Performing Organization Address [facility] Ph one Number MAIN LAB [address] [place] [address] * PHOSPHORUS (10/06/2019 4:21 PM CDT) Phosphorus 5.3 (H) 2.0 - 4.5 MG/DL MAIN LAB Specimen Blood Performing Organization Address [facility] Ph one Number MAIN LAB [address] [place] [address] * COMPREHENSIVE METABOLIC PANEL (10/06/2019 4:15 AM CDT) Sodium 141 137 - 147 MMOL/L [facility] MAIN LAB Potassium 4.3 3.5 - 5.1 MMOL/L MAIN LAB Chloride 102 98 - 110 MMOL/L MAIN LAB Glucose 130 (H) 70 - 100 MG/DL [facility] MAIN LAB Blood Urea 28 (H) 7 - 25 MG/DL [facility] MAIN LAB Nitrogen Creatinine 2.96 (H) 0.4 - 1.00 MG/DL [facility] MAIN LAB Calcium 7.7 (L) 8.5 - 10.6 MG/DL [facility] MAIN [facility] Total Protein 5.7 (L) 6.0 - 8.0 G/DL [facility] MAIN [facility] Total Bilirubin 0.3 0.3 - 1.2 MG/DL [facility] MAIN [facility] Albumin 2.7 (L) 3.5 - 5.0 G/DL [facility] MAIN LAB Alk Phosphatase 165 (H) 25 - 110 U/L [facility] MAIN [facility] AST (SGOT) 41 (H) 7 - 40 U/L [facility] MAIN [facility] CO2 22 21 - 30 MMOL/L [facility] MAIN [facility] ALT (SGPT) 21 7 - 56 U/L [facility] MAIN LAB Anion Gap 17 (H) 3 - 12 [facility] MAIN LAB eGFR Non 16 (L) >60 mL/min [facility] MAIN LAB Comment: Syrian The eGFR is not validated f or use in drug dosing adjustments. Continue to use estimated creatinine clearance per dosing reference text. Please contact the Clinical Pharmacist for questions. eGFR 19 (L) >60 mL/min [facility] MAIN LAB Syrian Comment: The eGFR is not validated for use in drug dosing adjustments. Continue to use estimated creatinine clearance per dosing reference text. Please contact the Clinical Pharmacist for questions. Specimen Blood Performing Organization Address [facility] one Number MAIN LAB [address] [place] [address] * LIVER FUNCTION PANEL (10/06/2019 4:15 AM CDT) Total Bilirubin 0.4 0.3 - 1.2 MG/DL [facility] MAIN LAB Bilirubin, 0.1 <0.4 MG/DL [facility] MAIN LAB Direct Albumin 2.7 (L) 3.5 - 5.0 G/DL [facility] MAIN LAB Alk Phosphatase 155 (H) 25 - 110 U/L [facility] MAIN LAB AST (SGOT) 39 7 - 40 U/L [facility] MAIN LAB ALT (SGPT) 21 7 - 56 U/L [facility] MAIN LAB Total Protein 5.6 (L) 6.0 - 8.0 G/DL [facility] MAIN LAB Specimen Performing Organization Address [facility] one Number MAIN LAB [address] [place] [address] * PHOSPHORUS (10/06/2019 4:15 AM CDT) Phosphorus 4.6 (H) 2.0 - 4.5 MG/DL [facility] MAIN LAB Specimen Performing Organization Address [facility] one Number MAIN LAB [address] [place] [address] * BASIC METABOLIC PANEL (10/06/2019 4:15 AM CDT) Sodium 140 137 - 147 MMOL/L MAIN LAB Potassium 4.3 3.5 - 5.1 MMOL/L MAIN LAB Chloride 101 98 - 110 MMOL/L [facility] MAIN LAB CO2 24 21 - 30 MMOL/L [facility] MAIN LAB Anion Gap 15 (H) 3 - 12 [facility] MAIN LAB Glucose 132 (H) 70 - 100 MG/DL [facility] MAIN LAB Blood Urea 28 (H) 7 - 25 MG/DL MAIN LAB Nitrogen Creatinine 2.90 (H) 0.4 - 1.00 MG/DL [facility] MAIN LAB Calcium 7.8 (L) 8.5 - 10.6 MG/DL MAIN LAB eGFR Non 16 (L) >60 mL/min MAIN LAB Comment: Syrian The eGFR is not validated f or use in drug dosing adjustments. Continue to use estimated creatinine clearance per dosing reference text. Please contact the Clinical Pharmacist for questions. eGFR 19 (L) >60 mL/min MAIN LAB Syrian Comment: The eGFR is not validated for use in drug dosing adjustments. Continue to use estimated creatinine clearance per dosing reference text. Please contact the Clinical Pharmacist for questions. Specimen Performing Organization Address [facility] one Number MAIN LAB [address] [place] [address] * LDH-LACTATE DEHYDROGENASE (10/06/2019 4:15 AM CDT) Lactate 514 (H) 100 - 210 U/L MAIN LAB Dehydrogenase Specimen Blood Performing Organization Address City/[facility] one Number MAIN LAB [address] [place] [address] * PROTIME INR (PT) (10/06/2019 4:15 AM CDT) INR 1.3 (H) 0.8 - 1.2 MAIN LAB Specimen Blood Performing Organization Address [facility] one Number MAIN LAB [address] [place] [id number] * CBC AND DIFF (10/06/2019 4:15 AM CDT) White Blood 10.2 4.5 - 11.0 K/UL [facility] MAIN LAB Cells RBC 2.43 (L) 4.0 - 5.0 M/UL [facility] MAIN LAB Hemoglobin 7.4 (L) 12.0 - 15.0 GM/DL [facility] MAIN LAB Hematocrit 22.2 (L) 36 - 45 % [facility] MAIN LAB MCV 91.2 80 - 100 FL [facility] MAIN LAB MCH 30.4 26 - 34 PG [facility] MAIN LAB MCHC 33.4 32.0 - 36.0 G/DL [facility] MAIN LAB RDW 13.4 11 - 15 % [facility] MAIN LAB Platelet Count 217 150 - 400 K/UL [facility] MAIN LAB MPV 6.2 (L) 7 - 11 FL [facility] MAIN LAB Neutrophils 90 (H) 41 - 77 % [facility] MAIN LAB Lymphocytes 5 (L) 24 - 44 % [facility] MAIN LAB Monocytes 5 4 - 12 % [facility] MAIN LAB Eosinophils 0 0 - 5 % [facility] MAIN LAB Basophils 0 0 - 2 % [facility] MAIN LAB Absolute 9.28 (H) 1.8 - 7.0 K/UL [facility] MAIN LAB Neutrophil Count Absolute Lymph 0.48 (L) 1.0 - 4.8 K/UL [facility] MAIN LAB Count Absolute 0.46 0 - 0.80 K/UL [facility] MAIN LAB Monocyte Count Absolute 0.00 0 - 0.45 K/UL [facility] MAIN LAB Eosinophil Count Absolute 0.02 0 - 0.20 K/UL [facility] MAIN LAB Basophil Count Specimen Blood Performing Organization Address [facility] Ph one Number MAIN LAB [address] [place] [id number] * MAGNESIUM (10/06/2019 4:15 AM CDT) Magnesium 2.0 1.6 - 2.6 mg/dL KU MAIN LAB Specimen Blood Performing Organization Address [facility] Ph one Number MAIN LAB [address] [place] [address] * URIC ACID (10/05/2019 6:16 PM CDT) Uric Acid 1.9 (L) 2.0 - 7.0 MG/DL MAIN LAB Specimen Blood Performing Organization Address [facility] Ph one Number MAIN LAB [address] [place] [address] * VRE SCREEN (10/05/2019 1:55 PM CDT) Battery Name VRE SCREEN KU MAIN LAB Specimen PERIRECTAL SWAB [facility] Description Special NONE [facility] Requests Culture NO VRE ISOLATED MAIN LAB Report Status FINAL [facility] 10/07/2019 Specimen Perirectal Swab Performing Organization Address [facility] one Number [facility] [address] [place] [address] * COVID-19 (SARS-COV-2) PCR (10/05/2019 12:17 PM CDT) COVID-19 NASOPHARYNGEAL SWAB [facility] (SARS-CoV-2) PCR Source COVID-19 NOT DETECTED DN-NOT DETECTED [facility] (SARS-CoV-2) Comment: PCR This assay is designed [...] performance characteristics have been verified by the [facility]. Fact sheet for providers: https://www.fda.gov/media/3215 85/download Fact sheet for patients: https://www.fda.gov/media/9921 87/download Specimen Nasopharyngeal Swab Performing Organization Address City/[facility] one Number [facility] [address] [place] [address] * HEMODIALYSIS INPATIENT (10/05/2019 8:59 AM CDT) [...] primary nurse, Mayo miguel RN * HEMODIALYSIS DATE (10/05/2019 8:59 AM CDT) [...] to primary nurse, Mayo miguel RN * LIVER FUNCTION PANEL (10/05/2019 4:30 AM CDT) Total Bilirubin 0.4 0.3 - 1.2 MG/DL [facility] MAIN LAB Bilirubin, 0.1 <0.4 MG/DL [facility] MAIN LAB Direct Albumin 2.8 (L) 3.5 - 5.0 G/DL [facility] MAIN LAB Alk Phosphatase 168 (H) 25 - 110 U/L [facility] MAIN LAB AST (SGOT) 34 7 - 40 U/L [facility] MAIN LAB ALT (SGPT) 19 7 - 56 U/L [facility] MAIN LAB Total Protein 5.6 (L) 6.0 - 8.0 G/DL [facility] MAIN LAB Specimen Performing Organization Address City/State/Zipcode Ph one Number [facility] MAIN LAB [address] [place] [address] * URIC ACID, RASBURICASE (10/05/2019 4:30 AM CDT) Uric Acid, 6.4 2.0 - 7.0 mg/dL [facility] MAIN LAB Rasburicase Specimen Blood Performing Organization Address [facility] Ph one Number MAIN LAB [address] [place] [address] * LDH-LACTATE DEHYDROGENASE (10/05/2019 4:30 AM CDT) Lactate 481 (H) 100 - 210 U/L [facility] MAIN LAB Dehydrogenase Specimen Blood Performing Organization Address [facility] one Number MAIN LAB [address] [place] [address] * PHOSPHORUS (10/05/2019 4:30 AM CDT) Phosphorus 4.6 (H) 2.0 - 4.5 MG/DL [facility] MAIN LAB Specimen Blood Performing Organization Address [facility] one Number MAIN LAB [address] [place] [id number] * MAGNESIUM (10/05/2019 4:30 AM CDT) Magnesium 2.1 1.6 - 2.6 mg/dL [facility] MAIN LAB Specimen Blood Performing Organization Address [facility] one Number MAIN LAB [address] [place] [address] * BASIC METABOLIC PANEL (10/05/2019 4:30 AM CDT) Sodium 140 137 - 147 MMOL/L [facility] MAIN LAB Potassium 3.5 3.5 - 5.1 MMOL/L [facility] MAIN [facility] Chloride 99 98 - 110 MMOL/L [facility] MAIN [facility] CO2 26 21 - 30 MMOL/L [facility] MAIN [facility] Anion Gap 15 (H) 3 - 12 [facility] Glucose 97 70 - 100 MG/DL [facility] MAIN [facility] Blood Urea 49 (H) 7 - 25 MG/DL MAIN LAB Nitrogen Creatinine 5.33 (H) 0.4 - 1.00 MG/DL [facility] MAIN LAB Calcium 8.5 8.5 - 10.6 MG/DL MAIN LAB eGFR Non 8 (L) >60 mL/min MAIN LAB Comment: Syrian The eGFR is not validated f or use in drug dosing adjustments. Continue to use estimated creatinine clearance per dosing reference text. Please contact the Clinical Pharmacist for questions. eGFR 10 (L) >60 mL/min [facility] MAIN LAB Syrian Comment: The eGFR is not validated for use in drug dosing adjustments. Continue to use estimated creatinine clearance per dosing reference text. Please contact the Clinical Pharmacist for questions. Specimen Blood Performing Organization Address City/[facility]/Zipcode Ph one Number [facility]I MAIN LAB [address] [place] [address] * CBC AND DIFF (10/05/2019 4:30 AM CDT) Pathologist [facility] White Blood 8.5 4.5 - 11.0 K/UL [facility] MAIN LAB Cells RBC 2.48 (L) 4.0 - 5.0 M/UL [facility] MAIN [facility] Hemoglobin 7.8 (L) 12.0 - 15.0 GM/DL [facility] MAIN LAB Hematocrit 22.4 (L) 36 - 45 % [facility] MAIN LAB MCV 90.5 80 - 100 FL [facility] MAIN [facility] MCH 31.5 26 - 34 PG [facility] MAIN LAB MCHC 34.8 32.0 - 36.0 G/DL [facility] MAIN [facility] RDW 13.3 11 - 15 % [facility] MAIN LAB Platelet Count 238 150 - 400 K/UL [facility] MAIN [facility] MPV 6.4 (L) 7 - 11 FL [facility] MAIN LAB Neutrophils 76 41 - 77 % [facility] MAIN [facility] Lymphocytes 7 (L) 24 - 44 % [facility] MAIN [facility] Monocytes 12 4 - 12 % [facility] MAIN [facility] Eosinophils 4 0 - 5 % [facility] MAIN LAB Basophils 1 0 - 2 % [facility] MAIN [facility] Absolute 6.62 1.8 - 7.0 K/UL [facility] MAIN LAB Neutrophil Count Absolute Lymph 0.59 (L) 1.0 - 4.8 K/UL [facility] MAIN [facility] Count Absolute 1.00 (H) 0 - 0.80 K/UL [facility] MAIN LAB Monocyte Count Absolute 0.30 0 - 0.45 K/UL [facility] MAIN LAB Eosinophil Count Absolute 0.04 0 - 0.20 K/UL [facility] MAIN LAB Basophil Count Specimen Blood Performing Organization Address [facility] Ph one Number [facility] MAIN LAB [address] [place] [address] * PROTIME INR (PT) (10/05/2019 4:30 AM CDT) Pathologist [facility] INR 1.4 (H) 0.8 - 1.2 [facility] MAIN LAB Specimen Blood Performing Organization Address City/[facility] Ph one Number [facility] MAIN LAB [address] [place] [address] * BONE MARROW (10/04/2019 9:44 AM CDT) PATHOLOGY [facility] [email or web address] Department of Pathology and Laboratory Medicine [address] [place] [address] Surgical Pathology Office: [phone] SURGICAL PATHOLOGY REPORT NAME: MARY TIM SURG PATH #: [id number] MR #: [id number] ALT ID #: LOCATION: DATE OF PROCEDURE: [...] submitted in cassette B1 after decalcification. (cg) 10/04/2019 Microscopic Description: CBC Data: HGB 7.8 (g/dL); [...] Studies: Flow Cytometry: Performed, see separate report, [id number], which reports no phenotypic evidence of a [...] of Pathology and Laboratory Medicine of the [facility] ([employer]) in compliance with [...] of Pathology and Laboratory Medicine of the [facility]. It has not been cleared or approved by the FDA. The FDA has determined that such clearance or approval is not necessary. Specimen Performing Organization Address City/State/[facility] Ph one Number [facility] MAIN LAB [address] [place] [address] * IR BONE MARROW BIOPSY (10/04/2019 9:21 [...] and Findings: The procedure including risks, alternat ehnry and benefits was explained to the patient. [...] one Number [facility] RAD RESULTS * IR CENTRAL VENOUS CATHETER (10/04/2019 9:21 AM CDT) Specimen Impressions Performed At Ultrasound and fluoroscopic guidance fo r left 8 Honduran chest port placement, as [facility] RAD RESULTS described. I, Jonathan Shirley M.D, the attendi radiologist, was present for [...] large B-ce ll lymphoma, need for chemotherapy HEAD WAITER/WAITRESS: George Mckinney D.O. and Shane Shirley M.D. [...] The needle was removed and a 4 Honduran t ransitional sheath was placed. The desired [...] was then used to tunnel the 8 Honduran catheter to the lef tIJ puncture site. [...] Diffuse large B-cell lymphoma, need for chemotherapy HEAD WAITER/WAITRESS: George Mckinney D.O. and Jonathan Shirley M.D. [...] The needle was removed and a 4 Honduran transitional sheath was placed. The desired catheter [...] was then used to tunnel the 8 Honduran catheter to the leftIJ puncture site. The [...] Ultrasound and fluoroscopic guidance for left 8 Honduran chest port placement, as described. Jonathan Pinto [...] report Finalized by Jonathan Shirley M.D. on 10/04/2019 10:30 AM. Dictated by George Mckinney D.O. on 10/04/2019 9:57 AM. Performing Organization Address City/State/Zipcode Ph one Number [facility] RAD RESULTS * FLOW CYTOMETRY (10/04/2019 9:20 AM CDT) PATHOLOGY [facility] MA[facility] [email or web address] Rubin Mcintosh MD, Director of Flow Cytometry Laboratory Department of Pathology and Laboratory Medicine [address] [place] [address] Surgical Pathology Office: [phone] FLOW CYTOMETRY REPORT NAME: MARY TIM SURG PATH #: [id number] MR #: [id number] SPECIMEN CLASS: LC BILLING #: [id number] ALT ID #: LOCATION: DATE OF PROCEDURE: 10/04/2019 AGE: 69 SEX: F DATE RECEIVED: 10/04/2019 : 1950 TIME RECEIVED: 11:19 PHYSICIAN: TORO CARRION DATE OF REPORT: 10/07/2019 COPY TO: YOVANA PAULA MD DATE OF PRINTIN10/07/2019 Material Received: A: Bone Marrow History: The patient has a history of diffuse large B-cell lymphoma. ############################## ############################## ############ Final Diagnosis: Bone Marrow, flow cytometry: Negative phenotypic study. Interpretation: Lymphocytes comprise 4% of cells and are predominantly T cells. B cells are nearly absent and comprise 0.03% of cells and appear polyclonal. Plasma cells comprise 0.01% of total cells and show polyclonal light chain expression. No phenotypic evidence of plasma cell neoplasm is identified. Attestation: By this signature, I attest that I have personally formulated the final interpretation expressed in this report and that the above diagnosis is based upon my examination of the slides and/or other material indicated in this report. +++Electronically Signed Out By+++ diamond10/07/2019 Interpreted by: Eloisa Mills MD 10/07/2019 ############################## ############################## ############ Lab Data: Flow Cytometry - Lymphoma Panel B Cell Associated Markers (% Positive Cells): CD19 = 1; CD19+CD5+ = 0; CD20 = 1; CD23 = 0; CD23+CD5+ = 0; [place] = 0; Lambda = 0; [place]:Lambda ratio = n/a T Cell Associated Markers (% Positive Cells): CD2 = 95; CD3 = 84; CD4 = 20; CD5 = 84; CD7 = 93; CD8 = 69 CD4:CD8 ratio = 0.3 Miscellaneous Markers (% Positive Cells): CD1d = 1; CD10 = 0; CD34 = 0; CD38 = 55; CD45 = 100; CD56 = 22; FMC7 = 1; CD200 = 1 Cell Viability (%): n/a Number of Cells Analyzed: 500,000 Total Number of Markers: 19 Summary of Marker Combinations: [place]/Lambda/5/19/38/45//; FMC7/23/200/34/1d//07/29; 2//5/3/4/45/56/8 Flow Cytometry - Multiple Myeloma, Minimal Residual Disease Panel Analytic sensitivity of the lower detection limit in this assay is 0.01% Plasma Cell Associated Markers (% Positive Cells): CD38 = 100; CD138 = 100; cyKappa = 52; cyLambda = 38; cyK/cyL ratio = 1.4 Miscellaneous Markers (% Positive Cells): CD19 = 77; CD20 = 11; CD27 = 66; CD28 = 72; CD45 = 89; CD56 = 50; CD81 = 66; CD117 = 2 Cell Viability (%): n/a Number of Cells Analyzed: 1,745,542 Plasma Cells Detected: 0.01 Total Number of Markers: 12 Summary of Marker Combinations: 81/28/138/38/45/27/20; cyKappa/cyLambda/138/117/38/45 /56/19 This test was developed and its performance characteristics determined by the [facility] Flow Cytometry Laboratory. It has not been cleared or approved by the U.S. Food and Drug Administration (FDA). The FDA has determined that such clearance or approval is not necessary. Specimen Performing Organization Address City/State/[facility] Ph one Number [facility] [address] [place] [address] * CHROMOSOMES BONE MARROW (10/04/2019 9:20 AM CDT) Pathologist [facility] Chromosomes Cytogenetics Report Available [facility] Bone Marrow in Epic Specimen Bone Marrow Narrative Performed At This result has an attachment that is n ot available. Performing Organization Address City/[facility] Ph one Number [facility] [address] [place] [address] * LEUKEMIA/LYMPHOMA PNL, BONE MARROW (10/04/2019 9:20 AM CDT) Leuk/Lymph SEE PATHOLOGY REPORT MAIN LAB Interpretation Specimen/LLM BONE MARROW MAIN LAB Specimen Bone Marrow Performing Organization Address [facility] Ph one Number MAIN LAB [address] [place] [address] * FE STAIN (10/04/2019 9:20 AM CDT) Bone Marrow FE SEE PATHOLOGY REPORT [facility] LAB Specimen Bone Marrow - Bone Marrow Performing Organization Address City/[facility] Ph one Number MAIN LAB [address] [place] [address] * BONE MARROW BIOPSY (10/04/2019 9:20 AM CDT) Bone Marrow Bx SEE PATHOLOGY REPORT MAIN LAB Specimen Bone Marrow - Bone Marrow Performing Organization Address City/[facility] Ph one Number MAIN LAB [address] [place] [address] * BONE MARROW ASP (10/04/2019 9:20 AM CDT) Bone Marrow Asp SEE PATHOLOGY REPORT [facility] LAB Specimen Bone Marrow - Bone Marrow Performing Organization Address City/[facility] one Number [facility] MAIN LAB [address] [place] [address] * URIC ACID (10/04/2019 6:54 AM CDT) Uric Acid 4.8 2.0 - 7.0 MG/DL [facility] MAIN LAB Specimen Performing Organization Address [facility] one Number [facility] MAIN LAB [address] [place] [address] * MANUAL DIFF (10/04/2019 6:54 AM CDT) Segmented 78 (H) 41 - 77 % [facility] MAIN LAB Neutrophils Lymphocytes 4 (L) 24 - 44 % [facility] MAIN LAB Monocytes 17 (H) 4 - 12 % [facility] MAIN LAB Eosinophil 1 0 - 5 % [facility] MAIN LAB Platelet NORMAL [facility] MAIN LAB Estimate RBC Morph POLY [facility] MAIN LAB OVALO Specimen Performing Organization Address [facility] one Number MAIN LAB [address] [place] [address] * LDH-LACTATE DEHYDROGENASE (10/04/2019 6:54 AM CDT) Lactate 494 (H) 100 - 210 U/L MAIN LAB Dehydrogenase Specimen Blood Performing Organization Address [facility] Ph one Number MAIN LAB [address] [place] [address] * PHOSPHORUS (10/04/2019 6:54 AM CDT) Phosphorus 4.3 2.0 - 4.5 MG/DL [facility] MAIN LAB Specimen Blood Performing Organization Address [facility] Ph one Number MAIN LAB [address] [place] [address] * MAGNESIUM (10/04/2019 6:54 AM CDT) Magnesium 2.0 1.6 - 2.6 mg/dL [facility] MAIN LAB Specimen Blood Performing Organization Address [facility] Ph one Number MAIN LAB [address] [place] [address] * BASIC METABOLIC PANEL (10/04/2019 6:54 AM CDT) Sodium 142 137 - 147 MMOL/L [facility] MAIN LAB Potassium 3.4 (L) 3.5 - 5.1 MMOL/L [facility] MAIN [facility] Chloride 100 98 - 110 MMOL/L [facility] MAIN [facility] CO2 28 21 - 30 MMOL/L [facility] MAIN [facility] Anion Gap 14 (H) 3 - 12 [facility] MAIN LAB Glucose 87 70 - 100 MG/DL [facility] MAIN LAB Blood Urea 37 (H) 7 - 25 MG/DL [facility] MAIN LAB Nitrogen Creatinine 4.09 (H) 0.4 - 1.00 MG/DL [facility] MAIN LAB Calcium 8.6 8.5 - 10.6 MG/DL [facility] MAIN LAB eGFR Non 11 (L) >60 mL/min [facility] MAIN LAB Comment: Syrian The eGFR is not validated f or use in drug dosing adjustments. Continue to use estimated creatinine clearance per dosing reference text. Please contact the Clinical Pharmacist for questions. eGFR 13 (L) >60 mL/min [facility] MAIN LAB Syrian Comment: The eGFR is not validated for use in drug dosing adjustments. Continue to use estimated creatinine clearance per dosing reference text. Please contact the Clinical Pharmacist for questions. Specimen Blood Performing Organization Address City/State/Zipcode Ph one Number [facility] MAIN LAB [address] [place] [address] * CBC AND DIFF (10/04/2019 6:54 AM CDT) White Blood 8.5 4.5 - 11.0 K/UL [facility] MAIN LAB Cells RBC 2.57 (L) 4.0 - 5.0 M/UL [facility] MAIN LAB Hemoglobin 7.8 (L) 12.0 - 15.0 GM/DL [facility] MAIN LAB Hematocrit 23.0 (L) 36 - 45 % [facility] MAIN LAB MCV 89.6 80 - 100 FL [facility] MAIN LAB MCH 30.2 26 - 34 PG [facility] MAIN LAB MCHC 33.7 32.0 - 36.0 G/DL [facility] MAIN [facility] RDW 13.3 11 - 15 % [facility] MAIN LAB Platelet Count 244 150 - 400 K/UL [facility] MAIN [facility] MPV 6.4 (L) 7 - 11 FL [facility] MAIN LAB Neutrophils 79 (H) 41 - 77 % [facility] MAIN [facility] Lymphocytes 5 (L) 24 - 44 % [facility] MAIN [facility] Monocytes 12 4 - 12 % [facility] MAIN [facility] Eosinophils 3 0 - 5 % [facility] MAIN [facility] Basophils 1 0 - 2 % [facility] MAIN [facility] Absolute 6.86 1.8 - 7.0 K/UL [facility] MAIN LAB Neutrophil Count Absolute Lymph 0.40 (L) 1.0 - 4.8 K/UL [facility] MAIN LAB Count Absolute 0.99 (H) 0 - 0.80 K/UL [facility] MAIN LAB Monocyte Count Absolute 0.22 0 - 0.45 K/UL [facility] MAIN LAB Eosinophil Count Absolute 0.06 0 - 0.20 K/UL [facility] MAIN LAB Basophil Count Specimen Blood Performing Organization Address City/[facility] Ph one Number [facility] MAIN LAB [address] [place] [address] * PROTIME INR (PT) (10/04/2019 6:54 AM CDT) INR 1.4 (H) 0.8 - 1.2 [facility] MAIN LAB Specimen Blood Performing Organization Address [facility] Ph one Number [facility] MAIN LAB [address] [place] [address] * NM PET SCAN WHOLEBODY (HEAD-TOES) (10/03/2019 4:39 PM CDT) Specimen Impressions Performed At Hypermetabolic michael, extensive extranodal (including pulmonary, hepatic, [facility] RAD RESULTS adrenal, renal, gastric, and pancreatic ), 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 on 09/11 5:32 AM. Dictated by Maximilian Osorio M.D. on 10/03/2019 5:12 PM. Narrative Performed At [place] PET SCAN WHOLE BODY (HEAD-TOES) [facility] RAD RESULTS Radiopharmaceutical: 10.7 mCi F-18 Fluo rodeoxyglucose (FDG) IV. Clinical Indication: Initial staging of lymphoma. Technique: PET imaging was performed fr om the vertex to the dose 60 minutes after tracer administration. Low dose n on-contrast CT imaging was performed for attenuation correction and localization purposes. Current mean hepatic SUV (reported for quality compliance manager purposes) is 2.1. Blood glucose level (at [...] Current mean hepatic SUV (reported for quality compliance manager purposes) is 2.1. Blood glucose level (at [...] on 10/03/2019 5:12 PM. Performing Organization Address City/State/Zipcode Ph one Number [facility] RAD RESULTS * FLOW CYTOMETRY (10/03/2019 1:45 PM CDT) PATHOLOGY [facility] [email or web address] Rubin Mcintosh MD, Director of Flow Cytometry Laboratory Department of Pathology and Laboratory Medicine [address] [place] [address] Surgical Pathology Office: [phone] FLOW CYTOMETRY REPORT NAME: MARY TIM SURG PATH #: [id number] MR #: [id number] SPECIMEN CLASS: LC BILLING #: [id number] ALT ID #: LOCATION: DATE OF PROCEDURE: 10/03/2019 AGE: 69 SEX: F DATE RECEIVED: 10/03/2019 : 1950 TIME RECEIVED: 14:48 PHYSICIAN: YISEL CARLOS MD DATE OF REPORT: 10/04/2019 COPY TO: MD BEBETO STANLEY MD DATE OF PRINTIN10/04/2019 Material Received: A: Cerebrospinal fluid tube 3 History: The patient has a history of diffuse large B-cell lymphoma. ############################## ############################## ############ Final Diagnosis: A. Cerebrospinal fluid tube 3: Negative phenotypic study. Interpretation: Lymphocytes comprise 47% of cells and are T cells. The B cells are absent. There is no phenotypic evidence of B cell lymphoma. Attestation: By this signature, I attest that I have personally formulated the final interpretation expressed in this report and that the above diagnosis is based upon my examination of the slides and/or other material indicated in this report. +++Electronically Signed Out By+++ bt/10/03/2019 Interpreted by: Eloisa Mills MD 10/04/2019 ############################## ############################## ############ Lab Data: Flow Cytometry - B Cell Panel B Cell Associated Markers (% Positive Cells): CD19 = 0; CD20 = 0; [place] = 0; Lambda = 0; [place]/Lambda ratio = n/a T Cell Associated Markers (% Positive Cells): CD5 = 93 Miscellaneous Markers (% Positive Cells): CD10 = 0; CD38 = 17; CD45 = 100 Cell Viability (%): qns Number of Cells Analyzed: 138 Total Number of Markers: 8 Summary of Marker Combinations: [place]/Lambda/5/19/38/45/10/20 This test was developed and its performance characteristics determined by the [facility] Flow Cytometry Laboratory. It has not been cleared or approved by the U.S. Food and Drug Administration (FDA). The FDA has determined that such clearance or approval is not necessary. Specimen Performing Organization Address [facility] one Number MAIN LAB [address] [place] [address] * CSF TUBE VOLUMES (10/03/2019 1:45 PM CDT) CSF Tube 1 3.0 mL K[facility] LAB RESULTS CSF Tube 2 3.0 mL [facility] LAB RESULTS CSF Tube 3 2.0 mL [facility] LAB RESULTS CSF Tube 4 0.0 mL [facility] LAB RESULTS Specimen Performing Organization Address [facility] one Number LAB RESULTS * LEUKEMIA/LYMPHOMA PANEL FLUID/TISSUE (10/03/2019 1:45 PM CDT) Leuk/Lymph SEE PATHOLOGY REPORT [facility] MAIN LAB Interpretation Specimen/LLM CSF MAIN LAB Specimen Cerebrospinal Fluid Performing Organization Address [facility] one Number [facility] MAIN LAB [address] [place] [address] * GLUCOSE-CSF (10/03/2019 1:45 PM CDT) Glucose,CSF 56 40 - 75 MG/DL [facility] MAIN LAB Xanthochromia,C NONE [facility] MAIN LAB SF Specimen Cerebrospinal fluid - Cerebrospinal Fluid Performing Organization Address [facility] one Number [facility] MAIN LAB [address] [place] [address] * TOTAL PROTEIN-CSF (10/03/2019 1:45 PM CDT) Total 30 15 - 45 MG/DL [facility] MAIN LAB Protein,CSF Specimen Cerebrospinal fluid - Cerebrospinal Fluid Performing Organization Address [facility] one Number [facility] MAIN LAB [address] [place] [address] * CELL COUNT W/DIFF-CSF (10/03/2019 1:45 PM CDT) Cell Count TUBE 3 [facility] MAIN LAB Tube,CSF White Blood 1 <5 /UL [facility] MAIN LAB Cells,CSF Red Blood 0 /UL [facility] MAIN LAB Cells,CSF Lymphocytes, 38 % [facility] MAIN LAB CSF Monocyte/Hisoto 62 % [facility] MAIN LAB cyte, CSF Clarity,CSF CLEAR [facility] MAIN LAB Path NO DIAGNOSTIC ABNORMALITIES K[facility] MAIN L AB Interpretation, CSF Pathologist INTERPRETED BY ELOISA MILLS MAIN LAB Signature MMerly By the PATH SIGNATURE ABOVE, I attest that I have personally formulated the final interpretation expressed in this report and that the above diagnosis is based upon my examination of the slides and/or other material indicated in this report. Specimen Cerebrospinal fluid - Cerebrospinal Fluid Performing Organization Address [facility] one Number MAIN LAB [address] [place] [address] * IR LUMBAR PUNCTURE (10/03/2019 1:41 PM CDT) Specimen Impressions Performed At Diagnostic lumbar puncture. [facility] RAD RESULTS I, Sourav Coon M.D., the attendi interventional radiologist, performed the entire procedure, personally review ed the images, and formulated the interpretations and opinions expressed in this report. @TT Finalized by Sourav Coon M.D. on 1:56 PM. Dictated by Sourav Coon M.D. on 10/03/2019 1:56 PM. Narrative Performed At Lumbar puncture under fluoroscopic guidance: [facility] RAD RESULTS Clinical Indication: Lymphoma Radiation dose: 1 mgy Sedation: None Technique and Findings: The nature of the procedure, risks, barak efits, alternatives, and expected outcomes were discussed with the patien t. The patient then provided informed written and verbal consent. The patient was placed on the fluorosco pic table in prone position. The lower back was then prepped and draped in the usual sterile fashion. After obtaining local anesthesia with 2% lidocaine, a 2 2 gauge spinal needle was advanced, under fluoroscopic guidance, into the thecal sac at the L1-2 level. Approximately 8 ml of clear CSF was obtained following n eedle placement. The stylet was replaced and the needle was removed. He mostasis was obtained spontaneously. The patient tolerated the procedure w ell and left the department in stable, unchanged condition. Procedure Note Interface, Radiant Results - 10/03/2019 1:59 PM CDT Lumbar puncture under fluoroscopic guidance: Clinical Indication: Lymphoma Radiation dose: 1 mgy Sedation: None Technique and Findings: The nature of the procedure, risks, benefits, alternatives, and expected outcomes were discussed with the patient. The patient then provided informed written and verbal consent. The patient was placed on the fluoroscopic table in prone position. The lower back was then prepped and draped in the usual sterile fashion. After obtaining local anesthesia with 2% lidocaine, a 22 gauge spinal needle was advanced, under fluoroscopic guidance, into the thecal sac at the L1-2 level. Approximately 8 ml of clear CSF was obtained following needle placement. The stylet was replaced and the needle was removed. Hemostasis was obtained spontaneously. The patient tolerated the procedure well and left the department in stable, unchanged condition. IMPRESSION Diagnostic lumbar puncture. ISourav M.D., the attending interventional radiologist, performed the entire procedure, personally reviewed the images, and formulated the interpretations and opinions expressed in this report. @TT Finalized by Sourav Coon M.D. on 10/03/2019 1:56 PM. Dictated by Sourav Coon M.D. on 10/03/2019 1:56 PM. Performing Organization Address City/State/Zipcode Ph one Number KU RAD RESULTS * CYTOLOGY FLUIDS (10/03/2019 12:30 PM CDT) Cytology [facility] [email or web address] Department of Pathology and Laboratory Medicine [address] [place] [address] Surgical Pathology Office: [phone] CYTOLOGY REPORT NAME: MARY TIM CYTOLOGY #: [id number] MR #: [id number] ALT ID #: BILLING #: [id number] LOCATION: 66 DATE OF PROCEDURE: 10/03/2019 AGE: 69 SEX: F DATE RECEIVED: 10/04/2019 : 1950 TIME RECEIVED: 08:46 PHYSICIAN: BEBETO WAGNER MD DATE OF REPORT: 10/04/2019 COPY TO: YISEL CARLOS MD DATE OF PRINTIN10/04/2019 Material Received: A: Cerebrospinal Fluid History: 69-year-old female with lymphoma. Gross Description: (1 ThinPrep) 1mL of clear colorless fluid. ############################## ############################## ############ Final Diagnosis: A. Cerebrospinal Fluid: Negative for malignant cells. Please also see concurrent flow cytometry report ([id number]). Attestation: By this signature, I attest that I have personally formulated the final interpretation expressed in this report and that the above diagnosis is based upon my examination of the slides and/or other material indicated in this report. +++Electronically Signed Out By+++ cj/10/04/2019 Interpreted by: Bev Valles MD, PhD Eric García, Resident Specimen Cerebrospinal Fluid Performing Organization Address City/[facility] Ph one Number [facility] [address] [place] [address] * PROTIME INR (PT) (10/03/2019 10:36 AM CDT) INR 1.3 (H) 0.8 - 1.2 [facility] Specimen Performing Organization Address City/[facility] Ph one Number [facility] MA[facility] [address] [place] [address] * PHOSPHORUS (10/03/2019 10:36 AM CDT) Phosphorus 1.7 (L) 2.0 - 4.5 MG/DL [facility] MAIN [facility] Specimen Performing Organization Address [facility] Ph one Number MAIN LAB [address] [place] [address] * MAGNESIUM (10/03/2019 10:36 AM CDT) Magnesium 1.8 1.6 - 2.6 mg/dL [facility] MAIN [facility] Specimen Performing Organization Address [facility] Ph one Number MAIN LAB [address] [place] [address] * LDH-LACTATE DEHYDROGENASE (10/03/2019 10:36 AM CDT) Lactate 586 (H) 100 - 210 U/L MAIN LAB Dehydrogenase Specimen Performing Organization Address [facility] one Number MAIN LAB [address] [place] [address] * CBC AND DIFF (10/03/2019 10:36 AM CDT) White Blood 9.0 4.5 - 11.0 K/UL MAIN LAB Cells RBC 2.75 (L) 4.0 - 5.0 M/UL [facility] MAIN [facility] Hemoglobin 8.5 (L) 12.0 - 15.0 GM/DL [facility] MAIN LAB Hematocrit 24.8 (L) 36 - 45 % MAIN LAB MCV 89.9 80 - 100 FL MAIN LAB MCH 30.7 26 - 34 PG MAIN LAB MCHC 34.2 32.0 - 36.0 G/DL MAIN LAB RDW 13.4 11 - 15 % [facility] MAIN LAB Platelet Count 248 150 - 400 K/UL MAIN LAB MPV 6.4 (L) 7 - 11 FL MAIN LAB Neutrophils 83 (H) 41 - 77 % [facility] MAIN [facility] Lymphocytes 4 (L) 24 - 44 % [facility] MA[facility] Monocytes 10 4 - 12 % [facility] MAIN [facility] Eosinophils 2 0 - 5 % [facility] MAIN [facility] Basophils 1 0 - 2 % MAIN LAB Absolute 7.50 (H) 1.8 - 7.0 K/UL [facility] MAIN LAB Neutrophil Count Absolute Lymph 0.36 (L) 1.0 - 4.8 K/UL [facility] MAIN [facility] Count Absolute 0.90 (H) 0 - 0.80 K/UL [facility] MAIN [facility] Monocyte Count Absolute 0.19 0 - 0.45 K/UL [facility] MAIN [facility] Eosinophil Count Absolute 0.05 0 - 0.20 K/UL [facility] MAIN [facility] Basophil Count Specimen Performing Organization Address [facility] one Number [facility] MAIN [facility] [address] [place] [id number] * BASIC METABOLIC PANEL (10/03/2019 10:36 AM CDT) Sodium 138 137 - 147 MMOL/L [facility] MAIN [facility] Potassium 3.0 (L) 3.5 - 5.1 MMOL/L [facility] MAIN [facility] Chloride 97 (L) 98 - 110 MMOL/L [facility] MAIN [facility] CO2 29 21 - 30 MMOL/L [facility] MAIN [facility] Anion Gap 12 3 - 12 [facility] MAIN [facility] Glucose 82 70 - 100 MG/DL [facility] MAIN [facility] Blood Urea 16 7 - 25 MG/DL [facility] MAIN [facility] Nitrogen Creatinine 1.99 (H) 0.4 - 1.00 MG/DL [facility] MAIN [facility] Calcium 8.6 8.5 - 10.6 MG/DL [facility] MAIN [facility] eGFR Non 25 (L) >60 mL/min [facility] MAIN [facility] Comment: Syrian The eGFR is not validated f or use in drug dosing adjustments. Continue to use estimated creatinine clearance per dosing reference text. Please contact the Clinical Pharmacist for questions. eGFR 30 (L) >60 mL/min [facility] MAIN [facility] Syrian Comment: The eGFR is not validated for use in drug dosing adjustments. Continue to use estimated creatinine clearance per dosing reference text. Please contact the Clinical Pharmacist for questions. Specimen Performing Organization Address [facility] one Number [facility] MAIN [facility] [address] [place] [address] * HEMODIALYSIS INPATIENT (10/03/2019 8:20 AM CDT) Narrative Performed At Funmilayo Monreal RN 10/03/19 20 11:17 AM Hemodialysis Procedure Report Report recieved from Primary Care RNSolange RN at [phone]. Hemodialysis treatment performed [facility]Cent er in [facility] [place] [facility].. Patient ID verified and consent signed: [...] placed. Report given to Primary Care RNLaly RN at 1117. See Hemodialysis Flow Sheet and MAR for details. * HEMODIALYSIS INPATIENT (10/02/2019 2:40 PM CDT) Narrative Performed At Crispin Mata RN 10/02/2019 4 :49 PM Report received from Primary Care Karine WATKINS at 1215. Pt arrived via w/c from [facility] to nbp, oxcemitry, and cardiac monitoring. Pt [...] and MAR for deta ils. * HEMODIALYSIS DATE (10/02/2019 2:40 PM CDT) Narrative Performed At Crispin Mata RN 10/02/2019 4 :49 PM Report received from Primary Care Karine WATKINS at 1215. Pt arrived via w/c from [facility] and [facility] to nb, oxcemitry, and cardiac monitoring. Pt [...] [id number] via w/c. See Dialysis Flowsheet and [facility] for deta ils. * HEMODIALYSIS INPATIENT (10/02/2019 2:40 PM CDT) Narrative Performed At Crispin Mata RN 10/02/2019 4 :49 PM Report received from Primary Care Karine WATKINS at 1215. Pt arrived via w/c from [facility] and [facility] to [facility], oxcemitry, and cardiac monitoring. Pt ID Verified [...] CHEST 2 VIEWS (10/02/2019 1:24 PM CDT) Specimen Impressions Performed At 1. Increased patchy [...] on 10/02/2019 2:02 PM. Performing Organization Address [facility] one Number RAD RESULTS * POC GLUCOSE (10/02/2019 8:38 AM CDT) Glucose, POC 92 70 - 100 MG/DL MAIN LAB Specimen Performing Organization Address [facility] one Number MAIN LAB [address] [place] [address] * BNP (B-TYPE NATRIURETIC PEPTI) (10/02/2019 6:10 AM CDT) B Type 420.0 (H) 0 - 100 PG/ML MAIN LAB Natriuretic Peptide Specimen Performing Organization [facility] one Number MAIN LAB [address] [place] [address] * MAGNESIUM (10/02/2019 6:10 AM CDT) Magnesium 2.0 1.6 - 2.6 mg/dL MAIN LAB Specimen Blood Performing Organization [facility] one Number MAIN LAB [address] [place] [address] * PHOSPHORUS (10/02/2019 6:10 AM CDT) Phosphorus 4.7 (H) 2.0 - 4.5 MG/DL MAIN LAB Specimen Blood Performing Organization [facility] one Number MAIN LAB [address] [place] [address] * CBC AND DIFF (10/02/2019 6:10 AM CDT) White Blood 8.6 4.5 - 11.0 K/UL MAIN LAB Cells RBC 2.59 (L) 4.0 - 5.0 M/UL MAIN LAB Hemoglobin 8.1 (L) 12.0 - 15.0 GM/DL MAIN LAB Hematocrit 23.9 (L) 36 - 45 % MAIN LAB MCV 92.4 80 - 100 FL [facility] MAIN LAB MCH 31.4 26 - 34 PG [facility] MAIN LAB MCHC 33.9 32.0 - 36.0 G/DL [facility] MAIN LAB RDW 13.5 11 - 15 % [facility] MAIN [facility] Platelet Count 271 150 - 400 K/UL [facility] MAIN [facility] MPV 6.8 (L) 7 - 11 FL [facility] MAIN [facility] Neutrophils 79 (H) 41 - 77 % [facility] MAIN [facility] Lymphocytes 5 (L) 24 - 44 % [facility] MAIN [facility] Monocytes 12 4 - 12 % [facility] MAIN [facility] Eosinophils 3 0 - 5 % [facility] MAIN [facility] Basophils 1 0 - 2 % [facility] MAIN [facility] Absolute 6.84 1.8 - 7.0 K/UL [facility] MAIN LAB Neutrophil Count Absolute Lymph 0.44 (L) 1.0 - 4.8 K/UL [facility] MAIN [facility] Count Absolute 1.06 (H) 0 - 0.80 K/UL [facility] MAIN [facility] Monocyte Count Absolute 0.21 0 - 0.45 K/UL [facility] MAIN [facility] Eosinophil Count Absolute 0.05 0 - 0.20 K/UL [facility] MAIN [facility] Basophil Count Specimen Blood Performing Organization Address City/State/Zipcode Ph one Number [facility] MAIN [facility] [address] [place] [address] * BASIC METABOLIC PANEL (10/02/2019 6:10 AM CDT) Sodium 137 137 - 147 MMOL/L [facility] MAIN [facility] Potassium 4.6 3.5 - 5.1 MMOL/L [facility] MAIN [facility] Chloride 99 98 - 110 MMOL/L [facility] MAIN [facility] CO2 23 21 - 30 MMOL/L [facility] MAIN [facility] Anion Gap 15 (H) 3 - 12 [facility] MAIN [facility] Glucose 81 70 - 100 MG/DL [facility] MAIN [facility] Blood Urea 70 (H) 7 - 25 MG/DL [facility] MAIN [facility] Nitrogen Creatinine 6.47 (H) 0.4 - 1.00 MG/DL [facility] MAIN [facility] Calcium 9.1 8.5 - 10.6 MG/DL [facility] MAIN [facility] eGFR Non 6 (L) >60 mL/min [facility] MAIN [facility] Comment: Syrian The eGFR is not validated f or use in drug dosing adjustments. Continue to use estimated creatinine clearance per dosing reference text. Please contact the Clinical Pharmacist for questions. eGFR 8 (L) >60 mL/min [facility]IN [facility] Syrian Comment: The eGFR is not validated for use in drug dosing adjustments. Continue to use estimated creatinine clearance per dosing reference text. Please contact the Clinical Pharmacist for questions. Specimen Blood Performing Organization Address [facility] one Number [facility] [address] [place] [address] * PROTIME INR (PT) (10/02/2019 6:10 AM CDT) Pathologist [facility] INR 1.5 (H) 0.8 - 1.2 [facility] Specimen Blood Performing Organization Address [facility] one Number [facility] [address] [place] [address] * HIV-1/2 ANTIGEN/ANTIBODY SCREEN (10/02/2019 6:10 AM CDT) Pathologist [facility] HIV 1 and 2 AG Non-Reactive: Negative for [id number]-Bfo-Ncvjrsix: [facility] AB Screen HIV-1 Ag and HIV-1/2 specific Negative for HIV-1 antibodies. Ag and HIV-1/2 specif Specimen Performing Organization [facility] one Number [facility] [address] [place] [address] * HEPATITIS C AB (10/02/2019 6:10 AM CDT) [facility] Anti HCV Non-Reactive: Antibodies to IIKAQ-Dtn-Rphbixbk : [facility] HCV were not detected. Antibodies to HCV were not detected. Specimen Performing Organization Address [facility] one Number [facility] [address] [place] [address] * HEPATITIS B CORE AB TOT (IGG+IGM) (10/02/2019 6:10 AM CDT) Pathologist [facility] Anti HBc Total Non-Reactive: Antibodies to RNPUX-Jmu-Tqyygvgm : [facility] HBV core antigen Antibodies to HBV (anti-HBc)were not detected. core antigen (anti-HBc Specimen Performing Organization Address [facility] one Number [facility] [address] [place] [address] * HEPATITIS B SURFACE AG (10/02/2019 6:10 AM CDT) [facility] HBsAg Non-Reactive: HBs antigen not MDHH-Yzn-Tsqnfes e: [facility] detected HBs antigen not detected Specimen Performing Organization Address [facility] one Number [facility] [address] [place] [address] * BETA 2 MICROGLOBULIN (10/02/2019 6:10 AM CDT) Pathologist [facility] B2 29.7 (H) REFERENCE LAB Microglobulin Comment: Reference range: 1.1 to 2.4 Unit: mg/L Performed By: [employer] [address] [place] [address] Cold Food Packer: Lakhwinder Zepeda MD, MS Specimen Performing Organization Address City/State/[facility] Ph one Number REFERENCE LAB REFERENCE LAB See results for address. 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 Report from floor RN. UFG 1 L Pt tolerated tx well, 1L NET UF, Repo rt called to floor RN * COMPREHENSIVE METABOLIC PANEL (10/01/2019 3:30 PM CDT) Pathologist [facility] Sodium 141 137 - 147 MMOL/L [facility] MAIN [facility] Potassium 5.5 (H) 3.5 - 5.1 MMOL/L [facility] MAIN [facility] Chloride 103 98 - 110 MMOL/L [facility] MAIN [facility] Glucose 96 70 - 100 MG/DL [facility] MAIN [facility] Blood Urea 99 (H) 7 - 25 MG/DL [facility] MAIN [facility] Nitrogen Creatinine 8.16 (H) 0.4 - 1.00 MG/DL [facility] MAIN [facility] Calcium 9.0 8.5 - 10.6 MG/DL [facility] MAIN [facility] Total Protein 5.7 (L) 6.0 - 8.0 G/DL [facility] MAIN [facility] Total Bilirubin 0.4 0.3 - 1.2 MG/DL [facility] MAIN [facility] Albumin 2.7 (L) 3.5 - 5.0 G/DL [facility] MAIN [facility] Alk Phosphatase 254 (H) 25 - 110 U/L [facility] MAIN [facility] AST (SGOT) 17 7 - 40 U/L [facility] MAIN [facility] CO2 19 (L) 21 - 30 MMOL/L [facility] MAIN [facility] ALT (SGPT) 33 7 - 56 U/L [facility] MAIN [facility] Anion Gap 19 (H) 3 - 12 [facility] MAIN [facility] eGFR Non 5 (L) >60 mL/min [facility] MAIN [facility] Comment: Syrian The eGFR is not validated f or use in drug dosing adjustments. Continue to use estimated creatinine clearance per dosing reference text. Please contact the Clinical Pharmacist for questions. eGFR 6 (L) >60 mL/min [facility] MAIN [facility] Syrian Comment: The eGFR is not validated for use in drug dosing adjustments. Continue to use estimated creatinine clearance per dosing reference text. Please contact the Clinical Pharmacist for questions. Specimen Blood Performing Organization Address City/[facility] Ph one Number MAIN LAB [address] [place] [address] * CBC (10/01/2019 3:30 PM CDT) White Blood 9.6 4.5 - 11.0 K/UL [facility] MAIN LAB Cells RBC 2.38 (L) 4.0 - 5.0 M/UL [facility] MAIN [facility] Hemoglobin 7.5 (L) 12.0 - 15.0 GM/DL [facility] MAIN LAB Hematocrit 21.8 (L) 36 - 45 % [facility] MAIN [facility] MCV 91.8 80 - 100 FL [facility] MAIN LAB MCH 31.6 26 - 34 PG MAIN LAB MCHC 34.4 32.0 - 36.0 G/DL MAIN LAB RDW 13.6 11 - 15 % [facility] MAIN LAB Platelet Count 238 150 - 400 K/UL [facility] MAIN LAB MPV 6.4 (L) 7 - 11 FL [facility] MAIN LAB Specimen Blood Performing Organization Address City/[facility] one Number MAIN LAB [address] [place] [address] * IR CENTRAL VENOUS CATHETER (10/01/2019 12:04 PM CDT) Specimen Impressions Performed At Successful image-guided placement of tunneled hemodia lysis catheter. [facility] RAD RESULTS I, Jonathan Shirley M.D, the attendi radiologist, was present for the critical and ruiz portions of the proced ure with an advanced practice provider, resident, and/or fellow participating. Overlapping portions were non ruiz and I was immediately available. I interpre t the critical and ruiz portion of this procedure to have been the procedural t miguel angel out and needle access. @TT Approved by Alonso Farfan D.O. on 10/01/19 20 1:39 PM By my electronic signature, I attest th at I have personally reviewed the images for this examination and formulated the interpretations and opinions expressed in this report Finalized by Jonathan Shirley M.D. on 1:45 PM. Dictated by Alonso Farfan D.O. on 10/01/2019 1:37 PM. Narrative Performed At Tunneled Hemodialysis Catheter Placement Under Ultras ound & Fluoroscopic [facility] RAD RESULTS Guidance CLINICAL INDICATION: 69-year-old female with acute kidney injury requiring hemodialysis. HEAD WAITER/WAITRESS: Alonso Farfan DO and Jonathan Shirley M.D. Sedation Medication: I was personally r esponsible for the administration of moderate sedation services during the p rocedure performed and I confirm requirements described in CPT section o n moderate sedation were followed, including the use of an independent tra ined observer who had no other duties during the procedure. See nursing log for complete details and the drugs utilized. ACCESS: Right Internal Jugular Vein CATHETER: GlidePath 14.5 Fr x 19cm tip to cuff length CONTRAST: None FLUOROSCOPY DOSE: 4.4 mGy COMPLICATIONS: None TECHNIQUE: Informed written consent w as obtained after explaining the risks and benefits of the procedure. With pat ient in the supine position, the patient's right neck and upper chest we re prepped and draped in the usual sterile fashion. The skin and subcutane ous tissues overlying the right internal jugular vein were infiltrated with 2% L idocaine without epinephrine. Under ultrasound guidance, the right internal jugular vein was successfully cannulated with a micropuncture needle and a 0.018 wire was advanced through the needle into the vein. An ultrasound image wa s saved to PACS for documentation. The needle was exchanged for a 5 Honduran coa xial dilator. The inner dilator and the wire were removed and an 0.035 Amplatz superstiff wire was advanced into the IVC. The venotomy was serially dilated and a 16 Honduran peel-away sheath was placed. Attention was turned to the creation of a subcutaneous tunnel. 2% Lidocaine with epinephrine were infiltrated along a 10-12 cm tract caudal and lateral to the sheath entry site. A second robert matotomy was made. The tunneling tool was passed and the catheter was pulled through the subcutaneous tunnel. The catheter was advanced through the peel- away sheath and positioned centrally using fluoroscopy. The sheath was rem linda. The catheter was secured in place with the tip in the mid right atrium. The venotomy site was closed with Dermabond. The catheter was secured to the skin with 2-0 Ethilon per hospital policy. The patient tolerated the pro cedure well and remained in stable condition throughout the stay in the an giography suite. The catheter ports were flushed, heparinized, and a steril e dressing was applied. FINDINGS: 1. Patent right internal jugular vein b y ultrasound. An ultrasound image was saved to PACS for documentation. 2. Tip of the catheter terminates in th e right atrium. Procedure Note Interface, Radiant Results - 10/01/2019 1:48 PM CDT Tunneled Hemodialysis Catheter Placement Under Ultrasound & Fluoroscopic Guidance CLINICAL INDICATION: 69-year-old female with acute kidney injury requiring hemodialysis. HEAD WAITER/WAITRESS: Alonso Farfan DO and Jonathan Shirley M.D. Sedation Medication: I was personally responsible for the administration of moderate sedation services during the procedure performed and I confirm requirements described in CPT section on moderate sedation were followed, including the use of an independent trained observer who had no other duties during the procedure. See nursing log for complete details and the drugs utilized. ACCESS: Right Internal Jugular Vein CATHETER: GlidePath 14.5 Fr x 19cm tip to cuff length CONTRAST: None FLUOROSCOPY DOSE: 4.4 mGy COMPLICATIONS: None TECHNIQUE: Informed written consent was obtained after explaining the risks and benefits of the procedure. With patient in the supine position, the patient's right neck and upper chest were prepped and draped in the usual sterile fashion. The skin and subcutaneous tissues overlying the right internal jugular vein were infiltrated with 2% Lidocaine without epinephrine. Under ultrasound guidance, the right internal jugular vein was successfully cannulated with a micropuncture needle and a 0.018 wire was advanced through the needle into the vein. An ultrasound image was saved to PACS for documentation. The needle was exchanged for a 5 Honduran coaxial dilator. The inner dilator and the wire were removed and an 0.035 Amplatz superstiff wire was advanced into the IVC. The venotomy was serially dilated and a 16 Honduran peel-away sheath was placed. Attention was turned to the creation of a subcutaneous tunnel. 2% Lidocaine with epinephrine were infiltrated along a 10-12 cm tract caudal and lateral to the sheath entry site. A second dermatotomy was made. The tunneling tool was passed and the catheter was pulled through the subcutaneous tunnel. The catheter was advanced through the peel-away sheath and positioned centrally using fluoroscopy. The sheath was removed. The catheter was secured in place with the tip in the mid right atrium. The venotomy site was closed with Dermabond. The catheter was secured to the skin with 2-0 Ethilon per hospital policy. The patient tolerated the procedure well and remained in stable condition throughout the stay in the angiography suite. The catheter ports were flushed, heparinized, and a sterile dressing was applied. FINDINGS: 1. Patent right internal jugular vein by ultrasound. An ultrasound image was saved to PACS for documentation. 2. Tip of the catheter terminates in the right atrium. IMPRESSION Successful image-guided placement of tunneled hemodialysis catheter. IJonathan M.D, the attending radiologist, was present for the critical and ruiz portions of the procedure with an advanced practice provider, resident, and/or fellow participating. Overlapping portions were non ruiz and I was immediately available. I interpret the critical and ruiz portion of this procedure to have been the procedural time out and needle access. @TT Approved by Alonso Farfan D.O. on 10/01/2019 1:39 PM By my electronic signature, I attest that I have personally reviewed the images for this examination and formulated the interpretations and opinions expressed in this report Finalized by Jonathan Shirley M.D. on 10/01/2019 1:45 PM. Dictated by Alonso Farfan D.O. on 10/01/2019 1:37 PM. Performing Organization Address City/State/[facility] Ph one Number [facility] RAD RESULTS * ZINC (10/01/2019 10:12 AM CDT) Zinc 0.73 REFERENCE LAB Comment: Reference range: 0.66 to 1.10 Unit: mcg/mL ADDITIONAL INFORMATION This test was developed and its performance characteristics determined by [facility] in a manner consistent with CLIA requirements. This test has not been cleared or approved by the U.S. Food and Drug Administration. [employer], [address] [place] [id number] Specimen Blood Performing Organization Address [facility] one [facility] REFERENCE LAB REFERENCE LAB See results for address. * COPPER (10/01/2019 10:12 AM CDT) [facility] Signature Copper, Serum 1.65 (H) REFERENCE LAB Comment: Reference range: 0.75 to 1.45 Unit: mcg/mL ADDITIONAL INFORMATION This test was developed and its performance characteristics determined by [facility] in a manner consistent with CLIA requirements. This test has not been cleared or approved by the U.S. Food and Drug Administration. [facility], [facility] [place] [address] Specimen Blood Performing Organization Address [facility] one [facility] REFERENCE LAB REFERENCE LAB See results for address. * POC GLUCOSE (10/01/2019 9:36 AM CDT) [facility] Glucose, POC 88 70 - 100 MG/DL MAIN LAB Specimen Performing Organization Address [facility] one Number MAIN LAB [address] [place] [address] * URIC ACID (10/01/2019 6:37 AM CDT) [facility] Uric Acid 10.5 (H) 2.0 - 7.0 MG/DL MAIN LAB Specimen Performing Organization Address [facility] one Number MAIN LAB [address] [place] [address] * LDH-LACTATE DEHYDROGENASE (10/01/2019 6:37 AM CDT) Lactate 521 (H) 100 - 210 U/L MAIN LAB Dehydrogenase Specimen Performing Organization Address [facility] one Number MAIN LAB [address] [place] [address] * MAGNESIUM (10/01/2019 6:37 AM CDT) Magnesium 2.0 1.6 - 2.6 mg/dL MAIN LAB Specimen Blood Performing Organization Address [facility] one Number MAIN LAB [address] [place] [address] * PHOSPHORUS (10/01/2019 6:37 AM CDT) Phosphorus 6.0 (H) 2.0 - 4.5 MG/DL K[facility] MAIN LAB Specimen Blood Performing Organization Address [facility] Ph one Number [facility] MAIN LAB [address] [place] [address] * CBC AND DIFF (10/01/2019 6:37 AM CDT) White Blood 8.2 4.5 - 11.0 K/UL KU MAIN LAB Cells RBC 2.46 (L) 4.0 - 5.0 M/UL [facility] MAIN LAB Hemoglobin 7.7 (L) 12.0 - 15.0 GM/DL KU MAIN LAB Hematocrit 22.6 (L) 36 - 45 % [facility] MAIN LAB MCV 91.9 80 - 100 FL K[facility] MAIN LAB MCH 31.4 26 - 34 PG [facility] MAIN LAB MCHC 34.1 32.0 - 36.0 G/DL [facility] MAIN LAB RDW 13.7 11 - 15 % [facility] MAIN LAB Platelet Count 247 150 - 400 K/UL [facility] MAIN LAB MPV 6.6 (L) 7 - 11 FL K[facility] MAIN LAB Neutrophils 77 41 - 77 % [facility] MAIN LAB Lymphocytes 7 (L) 24 - 44 % [facility] MAIN LAB Monocytes 14 (H) 4 - 12 % [facility] MAIN LAB Eosinophils 1 0 - 5 % [facility] MAIN LAB Basophils 1 0 - 2 % [facility] MAIN LAB Absolute 6.42 1.8 - 7.0 K/UL KU MAIN LAB Neutrophil Count Absolute Lymph 0.55 (L) 1.0 - 4.8 K/UL [facility] MAIN LAB Count Absolute 1.15 (H) 0 - 0.80 K/UL [facility] MAIN LAB Monocyte Count Absolute 0.07 0 - 0.45 K/UL [facility] MAIN LAB Eosinophil Count Absolute 0.05 0 - 0.20 K/UL [facility] MAIN LAB Basophil Count Specimen Blood Performing Organization Address City/[facility]/Zipcode Ph one Number [facility]U MAIN LAB [address] [place] [address] * BASIC METABOLIC PANEL (10/01/2019 6:37 AM CDT) Sodium 141 137 - 147 MMOL/L [facility] MAIN LAB Potassium 5.4 (H) 3.5 - 5.1 MMOL/L [facility] MAIN LAB Chloride 104 98 - 110 MMOL/L [facility] MAIN LAB CO2 19 (L) 21 - 30 MMOL/L [facility] MAIN LAB Anion Gap 18 (H) 3 - 12 [facility] MAIN LAB Glucose 81 70 - 100 MG/DL K[facility] MAIN LAB Blood Urea 92 (H) 7 - 25 MG/DL K[facility] MAIN LAB Nitrogen Creatinine 7.99 (H) 0.4 - 1.00 MG/DL K[facility] MAIN LAB Calcium 9.1 8.5 - 10.6 MG/DL K[facility] MAIN LAB eGFR Non 5 (L) >60 mL/min [facility] MAIN LAB Comment: Syrian The eGFR is not validated f or use in drug dosing adjustments. Continue to use estimated creatinine clearance per dosing reference text. Please contact the Clinical Pharmacist for questions. eGFR 6 (L) >60 mL/min [facility] MAIN LAB Syrian Comment: The eGFR is not validated for use in drug dosing adjustments. Continue to use estimated creatinine clearance per dosing reference text. Please contact the Clinical Pharmacist for questions. Specimen Blood Performing Organization Address City/[facility] Ph one Number MAIN LAB [address] [place] [address] * PROTIME INR (PT) (10/01/2019 6:37 AM CDT) Pathologist [facility] INR 1.4 (H) 0.8 - 1.2 MAIN LAB Specimen Blood Performing Organization Address [facility] Ph one Number MAIN LAB [address] [place] [address] * CBC (10/01/2019 12:05 AM CDT) Pathologist [facility] White Blood 7.7 4.5 - 11.0 K/UL MAIN LAB Cells RBC 2.68 (L) 4.0 - 5.0 M/UL MAIN LAB Hemoglobin 8.4 (L) 12.0 - 15.0 GM/DL MAIN LAB Hematocrit 24.6 (L) 36 - 45 % MAIN LAB MCV 91.7 80 - 100 FL MAIN LAB MCH 31.2 26 - 34 PG MAIN LAB MCHC 34.0 32.0 - 36.0 G/DL MAIN LAB RDW 13.3 11 - 15 % MAIN LAB Platelet Count 233 150 - 400 K/UL MAIN LAB MPV 6.5 (L) 7 - 11 FL MAIN LAB Specimen Blood Performing Organization Address [facility] one Number MAIN LAB [address] [place] [address] * CBC (09/30/2019 3:14 PM CDT) White Blood 7.0 4.5 - 11.0 K/UL KU MAIN LAB Cells RBC 2.60 (L) 4.0 - 5.0 M/UL KU MAIN LAB Hemoglobin 7.8 (L) 12.0 - 15.0 GM/DL KU MAIN LAB Hematocrit 23.9 (L) 36 - 45 % KU MAIN LAB MCV 92.0 80 - 100 FL KU MAIN LAB MCH 30.1 26 - 34 PG KU MAIN LAB MCHC 32.7 32.0 - 36.0 G/DL KU MAIN LAB RDW 13.2 11 - 15 % KU MAIN LAB Platelet Count 247 150 - 400 K/UL KU MAIN LAB MPV 6.6 (L) 7 - 11 FL KU MAIN LAB Specimen Blood Performing Organization Address City/State/Zipcode Ph one Number KU MAIN LAB [address] [place] [address] * IR RENAL BIOPSY (09/30/2019 11:33 AM [...] PM. Narrative Performed At Ultrasound Guided Percutaneous [place] [facility] KU RAD RESULTS INDICATION: Renal failure HEAD WAITER/WAITRESS: Mak Lynch M.D. MEDICATIONS: I was personally [...] 09/30/2019 1:38 PM CDT Ultrasound Guided Percutaneous [place] [facility] Biopsy INDICATION: Renal failure HEAD WAITER/WAITRESS: Mak Lynch M.D. MEDICATIONS: I was personally [...] on 09/30/2019 1:34 PM. Performing Organization Address [facility] one Number KU RAD RESULTS * MISCELLANEOUS SURGICAL PATHOLOGY REFERENCE LAB TEST (09/30/2019 10:15 AM CDT) Pathologist [facility] EMTO, Electron Microscopy, REFERENCE LAB Technical Only, [id number] Reference Lab PERFORMED AT [facility] Results Ref Lab Will be reported as an REFERENCE LAB addendum in the pathology report. Specimen Mail [id number] REFERENCE LAB Specimen Performing Organization Address [facility] one Number REFERENCE LAB REFERENCE LAB See results for address. * [facility] TEST (09/30/2019 10:15 AM CDT) Pathologist [facility] EMTO, Electron Microscopy, REFERENCE LAB Miscellaneous Technical Only, [id number] Test Info [place] SEE COMMENTS 10/03/2019 02:37 REFEREN CE LAB Miscellaneous PM Result Test Result Flag Unit RefValue ------ Electron Microscopy, Technical Only Electron Microscopy Testing Performed Test Performed by: [address] [address] [employer] Machine Tender: Tad Valentine M.D. Ph.D.; CLIA# [id number] Specimen Performing Organization Address [facility] one Number REFERENCE LAB REFERENCE LAB See results for address. * PATHOLOGY/CYTOLOGY REQUEST (09/30/2019 10:15 AM CDT) PATHOLOGY [facility] [email or web address] [facility] [email or web address] Department of Pathology and Laboratory Medicine [address] [place] [address] Surgical Pathology Office: [phone] SURGICAL PATHOLOGY REPORT NAME: MARY TIM SURG PATH #: [id number] MR #: [id number] SPECIMEN CLASS: SR BILLING #: [id number] ALT ID #: LOCATION: 42 DATE OF PROCEDURE: 09/30/2019 AGE: 69 SEX: F DATE RECEIVED: 09/30/2019 : 1950 TIME RECEIVED: 11:53 PHYSICIAN: KENJI PEÑA DO DATE OF REPORT: 10/02/2019 COPY TO: [...] ############ Final Diagnosis: A and B. Kidney (agdaagux), left, needle core biopsy: Diffuse large B-cell [...] conditions. Electron microscopy: Pending Pursuant to the Admissions Assistant Program at the [facility] Pathology Department, selected slides from [...] material indicated in this report. +++ +++ ksw/09/30/2019 ############################## ############################## ############ Material Received: A: left agdaagux renal biopsy B: left agdaagux renal biopsy IF History: 69-year-old female with history of concern for infiltrative renal disease Gross Description: A. Received in formalin labeled "left agdaagux renal biopsy" is a 0.9 cm in length by 0.1 cm in diameter core of hoffmann-red tissue. The specimen is entirely submitted in cassette A1. (cg) B. Received in Chadwick's solution labeled "left agdaagux renal biopsy IF" is a 1.1 cm in length by 0.1 cm in diameter core of hoffmann-red tissue. The specimen is entirely submitted for immunofluorescence studies. (cg) cg/09/30/2019 If immunohistochemical stains and/or in situ hybridization are cited in this report, the performance characteristics were determined by the Department of Pathology and Laboratory Medicine of the [facility] ([employer]) in compliance with [...] of Pathology and Laboratory Medicine of the [facility]. It has not been cleared or approved by the FDA. The FDA has determined that such clearance or approval is not necessary. Specimen Kidney Performing Organization Address City/[facility] Ph one Number MAIN LAB [address] [place] [address] * MAGNESIUM (09/30/2019 6:02 AM CDT) Magnesium 1.9 1.6 - 2.6 mg/dL MAIN LAB Specimen Blood Performing Organization Address [facility] Ph one Number MAIN LAB [address] [place] [address] * PHOSPHORUS (09/30/2019 6:02 AM CDT) Phosphorus 5.2 (H) 2.0 - 4.5 MG/DL MAIN LAB Specimen Blood Performing Organization Address [facility] Ph one Number MAIN LAB [address] [place] [address] * CBC AND DIFF (09/30/2019 6:02 AM CDT) White Blood 6.5 4.5 - 11.0 K/UL [facility] LAB Cells RBC 2.85 (L) 4.0 - 5.0 M/UL [facility] Hemoglobin 8.8 (L) 12.0 - 15.0 GM/DL MAIN LAB Hematocrit 25.9 (L) 36 - 45 % MAIN LAB MCV 90.8 80 - 100 FL [facility] LAB MCH 30.9 26 - 34 PG [facility] LAB MCHC 34.1 32.0 - 36.0 G/DL [facility] RDW 13.4 11 - 15 % MAIN LAB Platelet Count 245 150 - 400 K/UL [facility] MPV 6.6 (L) 7 - 11 FL [facility] Neutrophils 76 41 - 77 % [facility] Lymphocytes 6 (L) 24 - 44 % [facility] Monocytes 14 (H) 4 - 12 % MAIN LAB Eosinophils 3 0 - 5 % KU MAIN LAB Basophils 1 0 - 2 % KU MAIN LAB Absolute 5.00 1.8 - 7.0 K/UL KU MAIN LAB Neutrophil Count Absolute Lymph 0.39 (L) 1.0 - 4.8 K/UL KU MAIN LAB Count Absolute 0.92 (H) 0 - 0.80 K/UL KU MAIN LAB Monocyte Count Absolute 0.17 0 - 0.45 K/UL KU MAIN LAB Eosinophil Count Absolute 0.04 0 - 0.20 K/UL KU MAIN LAB Basophil Count Specimen Blood Performing Organization Address [facility] Ph one Number KU MAIN LAB [address] [place] [address] * BASIC METABOLIC PANEL (09/30/2019 6:02 AM CDT) Sodium 142 137 - 147 MMOL/L KU MAIN LAB Potassium 4.9 3.5 - 5.1 MMOL/L KU MAIN LAB Chloride 104 98 - 110 MMOL/L KU MAIN LAB CO2 21 21 - 30 MMOL/L KU MAIN LAB Anion Gap 17 (H) 3 - 12 KU MAIN LAB Glucose 84 70 - 100 MG/DL KU MAIN LAB Blood Urea 83 (H) 7 - 25 MG/DL KU MAIN LAB Nitrogen Creatinine 6.94 (H) 0.4 - 1.00 MG/DL KU MAIN LAB Calcium 9.2 8.5 - 10.6 MG/DL KU MAIN LAB eGFR Non 6 (L) >60 mL/min KU MAIN LAB Comment: Syrian The eGFR is not validated f or use in drug dosing adjustments. Continue to use estimated creatinine clearance per dosing reference text. Please contact the Clinical Pharmacist for questions. eGFR 7 (L) >60 mL/min KU MAIN LAB [place] Comment: The eGFR is not validated for use in drug dosing adjustments. Continue to use estimated creatinine clearance per dosing reference text. Please contact the Clinical Pharmacist for questions. Specimen Blood Performing Organization Address City/[facility] Ph one Number KU MAIN LAB [address] [place] [address] * PROTIME INR (PT) (09/30/2019 6:02 AM CDT) INR 1.3 (H) 0.8 - 1.2 KU MAIN LAB Specimen Blood Performing Organization Address [facility] Ph one Number MAIN LAB [address] [place] [address] * ELECTROPHORESIS-UR RAN (09/29/2019 10:10 PM CDT) Total Protein, 106 MG/DL KU MAIN LAB [...] this report. Specimen Urine Performing Organization Address [facility] Ph one Number MAIN LAB [address] [place] [address] * PHOSPHORUS (09/29/2019 5:51 AM CDT) Phosphorus 5.0 (H) 2.0 - 4.5 MG/DL KU MAIN LAB Specimen Blood Performing Organization Address [facility] Ph one Number MAIN LAB [address] [place] [address] * MAGNESIUM (09/29/2019 5:51 AM CDT) Magnesium 1.9 1.6 - 2.6 mg/dL KU MAIN LAB Specimen Blood Performing Organization Address [facility] one Number MAIN LAB [address] [place] [id number] * BASIC METABOLIC PANEL (09/29/2019 5:51 AM CDT) Sodium 139 137 - 147 MMOL/L KU MAIN LAB Potassium 4.9 3.5 - 5.1 MMOL/L KU MAIN LAB Chloride 103 98 - 110 MMOL/L KU MAIN LAB CO2 21 21 - 30 MMOL/L KU MAIN LAB Anion Gap 15 (H) 3 - 12 KU MAIN LAB Glucose 85 70 - 100 MG/DL KU MAIN LAB Blood Urea 79 (H) 7 - 25 MG/DL KU MAIN LAB Nitrogen Creatinine 6.57 (H) 0.4 - 1.00 MG/DL KU MAIN LAB Calcium 9.1 8.5 - 10.6 MG/DL KU MAIN LAB eGFR Non 6 (L) >60 mL/min KU MAIN LAB Comment: Syrian The eGFR is not validated f or use in drug dosing adjustments. Continue to use estimated creatinine clearance per dosing reference text. Please contact the Clinical Pharmacist for questions. eGFR 8 (L) >60 mL/min KU MAIN LAB [place] Comment: The eGFR is not validated for use in drug dosing adjustments. Continue to use estimated creatinine clearance per dosing reference text. Please contact the Clinical Pharmacist for questions. Specimen Blood Performing Organization Address City/[facility] one Number KU MAIN LAB [address] [place] [address] * CBC AND DIFF (09/29/2019 5:51 AM CDT) White Blood 6.5 4.5 - 11.0 K/UL K[facility] MAIN LAB Cells RBC 2.69 (L) 4.0 - 5.0 M/UL K[facility] MAIN LAB Hemoglobin 8.3 (L) 12.0 - 15.0 GM/DL KU MAIN LAB Hematocrit 24.6 (L) 36 - 45 % KU MAIN LAB MCV 91.5 80 - 100 FL [facility] MAIN LAB MCH 30.9 26 - 34 PG [facility]U MAIN LAB MCHC 33.8 32.0 - 36.0 G/DL KU MAIN LAB RDW 13.7 11 - 15 % KU MAIN LAB Platelet Count 222 150 - 400 K/UL [facility] MAIN LAB MPV 6.6 (L) 7 - 11 FL [facility] MAIN LAB Neutrophils 75 41 - 77 % [facility] MAIN LAB Lymphocytes 6 (L) 24 - 44 % [facility] MAIN LAB Monocytes 15 (H) 4 - 12 % KU MAIN LAB Eosinophils 3 0 - 5 % KU MAIN LAB Basophils 1 0 - 2 % K[facility] MAIN LAB Absolute 4.90 1.8 - 7.0 K/UL KU MAIN LAB Neutrophil Count Absolute Lymph 0.37 (L) 1.0 - 4.8 K/UL [facility] MAIN LAB Count Absolute 0.97 (H) 0 - 0.80 K/UL [facility] MAIN LAB Monocyte Count Absolute 0.17 0 - 0.45 K/UL [facility] MAIN LAB Eosinophil Count Absolute 0.06 0 - 0.20 K/UL K[facility] MAIN LAB Basophil Count Specimen Blood Performing Organization Address City/[facility] one Number KU MAIN LAB [address] [place] [address] * PHOSPHORUS (09/28/2019 6:58 AM CDT) Phosphorus 4.8 (H) 2.0 - 4.5 MG/DL KU MAIN LAB Specimen Blood Performing Organization Address [facility] one Number KU MAIN LAB [address] [place] [address] * MAGNESIUM (09/28/2019 6:58 AM CDT) Magnesium 1.9 1.6 - 2.6 mg/dL KU MAIN LAB Specimen Blood Performing Organization Address [facility] one Number KU MAIN LAB [address] [place] [address] * BASIC METABOLIC PANEL (09/28/2019 6:58 AM CDT) Sodium 137 137 - 147 MMOL/L KU MAIN LAB Potassium 4.4 3.5 - 5.1 MMOL/L K[facility] MAIN LAB Chloride 102 98 - 110 MMOL/L KU MAIN LAB CO2 20 (L) 21 - 30 MMOL/L KU MAIN LAB Anion Gap 15 (H) 3 - 12 K[facility] MAIN LAB Glucose 82 70 - 100 MG/DL KU MAIN LAB Blood Urea 81 (H) 7 - 25 MG/DL K[facility] MAIN LAB Nitrogen Creatinine 6.58 (H) 0.4 - 1.00 MG/DL KU MAIN LAB Calcium 8.9 8.5 - 10.6 MG/DL KU MAIN LAB eGFR Non 6 (L) >60 mL/min KU MAIN LAB Comment: Syrian The eGFR is not validated f or use in drug dosing adjustments. Continue to use estimated creatinine clearance per dosing reference text. Please contact the Clinical Pharmacist for questions. eGFR 8 (L) >60 mL/min KU MAIN LAB [place] Comment: The eGFR is not validated for use in drug dosing adjustments. Continue to use estimated creatinine clearance per dosing reference text. Please contact the Clinical Pharmacist for questions. Specimen Blood Performing Organization Address [facility] Ph one Number KU MAIN LAB [address] [place] [address] * CBC AND DIFF (09/28/2019 6:58 AM CDT) White Blood 5.9 4.5 - 11.0 K/UL KU MAIN LAB Cells RBC 2.79 (L) 4.0 - 5.0 M/UL K[facility] MAIN LAB Hemoglobin 8.7 (L) 12.0 - 15.0 GM/DL KU MAIN LAB Hematocrit 25.3 (L) 36 - 45 % KU MAIN LAB MCV 90.6 80 - 100 FL KU MAIN LAB MCH 31.3 26 - 34 PG KU MAIN LAB MCHC 34.6 32.0 - 36.0 G/DL KU MAIN LAB RDW 13.4 11 - 15 % KU MAIN LAB Platelet Count 209 150 - 400 K/UL [facility] MAIN LAB MPV 6.6 (L) 7 - 11 FL K[facility] MAIN LAB Neutrophils 76 41 - 77 % KU MAIN LAB Lymphocytes 5 (L) 24 - 44 % K[facility] MAIN LAB Monocytes 16 (H) 4 - 12 % KU MAIN LAB Eosinophils 2 0 - 5 % K[facility] MAIN LAB Basophils 1 0 - 2 % KU MAIN LAB Absolute 4.54 1.8 - 7.0 K/UL KU MAIN LAB Neutrophil Count Absolute Lymph 0.31 (L) 1.0 - 4.8 K/UL [facility] MAIN LAB Count Absolute 0.92 (H) 0 - 0.80 K/UL K[facility] MAIN LAB Monocyte Count Absolute 0.11 0 - 0.45 K/UL K[facility] MAIN LAB Eosinophil Count Absolute 0.06 0 - 0.20 K/UL [facility] MAIN LAB Basophil Count Specimen Blood Performing Organization Address City/State/[facility] Ph one Number MAIN LAB [address] [place] [address] * CYTOLOGY BRONCH LAVAGE (09/27/2019 6:00 PM CDT) Cytology [facility] [email or web address] Department of Pathology and Laboratory Medicine [address] [place] [address] Surgical Pathology Office: [phone] CYTOLOGY REPORT NAME: MARY TIM CYTOLOGY #: [id number] MR #: [id number] ALT ID #: BILLING #: [id number] LOCATION: 64 DATE OF PROCEDURE: 09/27/2019 AGE: 69 SEX: F DATE RECEIVED: 09/30/2019 : 1950 TIME RECEIVED: 09:56 PHYSICIAN: MILO GUTIERREZ DATE OF REPORT: 10/02/2019 COPY TO: CAROLIN PAULA MD DATE OF PRINTIN10/02/2019 Material Received: [...] cytology report ([id number]) and surgical pathology report ([id number]). Attestation: By this signature, I attest that I have personally formulated the final interpretation expressed in this report and that the above diagnosis is based upon my examination of the slides and/or other material indicated in this report. +++Electronically Signed Out By+++ mitchellw/10/02/2019 Interpreted by: Bev Valles MD, PhD Gómez Cooper MD Fellow Specimen Bronchial Alveolar Lavage,RONI Performing Organization Address City/State/[facility] [place] [address] * FLOW CYTOMETRY (09/27/2019 5:32 PM CDT) PATHOLOGY [facility] [email or web address] Rubin Mcintosh MD, Director of Flow Cytometry Laboratory Department of Pathology and Laboratory Medicine [address] [place] [address] Surgical Pathology Office: [phone] FLOW CYTOMETRY REPORT NAME: MARY TIM SURG PATH #: [id number] MR #: [id number] SPECIMEN CLASS: LC BILLING #: [id number] ALT ID #: LOCATION: DATE OF PROCEDURE: 09/27/2019 AGE: 69 SEX: F DATE RECEIVED: 09/28/2019 : 1950 TIME RECEIVED: 09:24 PHYSICIAN: BRANDEN CHOE DATE OF REPORT: 09/30/2019 COPY TO: YOVANA PAULA MD DATE OF PRINTIN09/30/2019 Material Received: A: FNA Michael station 7 subcarinal Lymph node History: The patient is under evaluation for acute renal failure and anemia. ############################## ############################## ############ Final Diagnosis: A. FNA Michael station 7 subcarinal lymph node, flow cytometry: Negative phenotypic study. Interpretation: Lymphocytes comprise 98 % of total events. The majority are T cells with a normal CD4:CD8 ratio and normal antigen expression. B cells are polyclonal with normal antigen expression. There is no immunophenotypic evidence of non-Hodgkin lymphoma. Morphologic correlation is recommended. Attestation: By this signature, I attest that I have personally formulated the final interpretation expressed in this report and that the above diagnosis is based upon my examination of the slides and/or other material indicated in this report. +++Electronically Signed Out By+++ chela/09/28/2019 Interpreted by: Eloisa Mills MD 09/30/2019 ############################## ############################## ############ Lab Data: Flow Cytometry - Lymphoma Panel B Cell Associated Markers (% Positive Cells): CD19 = 16; CD19+CD5+ = 1; CD20 = 17; CD23 = 1; CD23+CD5+ = 0; [place] = 9; Lambda = 6; [place]:Lambda ratio = 1.5 T Cell Associated Markers (% Positive Cells): CD2 = 74; CD3 = 69; CD4 = 44; CD5 = 70; CD7 = 65; CD8 = 27 CD4:CD8 ratio = 1.7 Miscellaneous Markers (% Positive Cells): CD1d = 2; CD10 = 4; CD34 = 0; CD38 = 59; CD45 = 100; CD56 = 4; FMC7 = 8; CD200 = 21 Cell Viability (%): 98 Number of Cells Analyzed: 2,875 Total Number of Markers: 19 Summary of Marker Combinations: [place]/Lambda/5/19/38/45/10/20; FMC7/23/200/34/1d/45//19; 2/5/3/4/45/56/8 This test was developed and its performance characteristics determined by the [facility] Flow Cytometry Laboratory. It has not been cleared or approved by the U.S. Food and Drug Administration (FDA). The FDA has determined that such clearance or approval is not necessary. Specimen Performing Organization Address [facility] Ph one Number [facility] [address] [place] [address] * GRAM STAIN (09/27/2019 5:32 PM CDT) Battery Name GRAM STAIN [facility] Specimen BRONCHIAL ALVEOLAR LAVAGE, RONI KU RAUL N LAB Description Special NONE [facility] Requests Gram Stain FEW [facility] NEUTROPHILS MANY RBC'S NO ORGANISMS SEEN Report Status FINAL [facility] 09/27/2019 Specimen Bronchial Alveolar Lavage,RONI Performing Organization Address [facility] Ph one Number [facility] [address] [place] [address] * CELL COUNT W/DIFF-FLUIDS (09/27/2019 5:32 PM CDT) Segmented 9 % [facility] Neutrophils, Fluid Lymphocytes,Flu 3 % [facility] id Monocyte/Histo, 88 % [facility] Fluid Fluid Source BRONCHIAL ALVEOLAR LAVAGE MAIN LAB Pathology HEMORRHAGIC FLUID [facility] Interpretation, Fluid Pathologist INTERPRETED BY ELOISA MILLS [facility] Signature M.D. By the PATH SIGNATURE ABOVE, I attest that I have personally formulated the final interpretation expressed in this report and that the above diagnosis is based upon my examination of the slides and/or other material indicated in this report. Specimen Fluid - Bronchial Alveolar Lavage Performing Organization Address [facility] Ph one Number [facility] [address] [place] [address] * HERPES SIMPLEX PCR - NON-BLOOD (09/27/2019 5:32 PM CDT) Specimen, BRONCHIAL ALVEOLAR LAVAGE [facility] Herpes Herpes Simplex HSV 1 and 2 NOT DETECTED HSVND-HSV 1 and 2 [facility] PCR Comment: NOT DETECTED [place] J&B HSV 1&2 Assay is a qualitative real-time PCR test for the direct detection and differentiation of HSV 1 and 2 DNA. This assay is FDA approved for testing cutaneous or mucocutaneous lesions from symptomatic patients. Performance on modifications of this test as well as other specimen types has been validated by the Department of Pathology and Laboratory Medicine at the [facility]. Specimen Bronchial Alveolar Lavage Performing Organization Address [facility] one Number [facility] [address] [place] [address] * CMV QUANT PCR-FLUID (09/27/2019 5:32 PM CDT) Specimen, CMV BRONCHIAL ALVEOLAR LAVAGE [facility] CMV by CMV DNA NOT DETECTED CMVND-CMV DNA NOT [facility] PCR-fluid DETECTED CMV This assay is an off label use [facility] Comment-Fluid of the [employer] y for detection of CMV in fluids and has not been approved by the US Food and Drug Administration. The performance characteristics were determined by the [facility] Laboratory. The lower limit of detection is 50IU/mL. Specimen Fluid - Bronchial Alveolar Lavage Performing Organization Address [facility] one Number [facility] [address] [place] [address] * CULTURE-RESP,LOWER W/SENSITIVITY (09/27/2019 5:32 PM CDT) Battery Name LOWER RESP CULTURE [facility] Specimen BRONCHIAL ALVEOLAR LAVAGE, RONI [facility] Description Special NONE [facility] Requests Direct Gram FEW [facility] Stain NEUTROPHILS MANY RBC'S NO ORGANISMS SEEN Culture NO GROWTH 2 DAYS [facility] Report Status FINAL [facility] 09/29/2019 Specimen Bronchial Alveolar Lavage,RONI Performing Organization Address [facility] one Number [facility] [address] [place] [address] * LEUKEMIA/LYMPHOMA PANEL FLUID/TISSUE (09/27/2019 5:32 PM CDT) Leuk/Lymph SEE PATHOLOGY REPORT MAIN LAB Interpretation Specimen/LLM LYMPH NODE [facility] Specimen Lymph Node (Specify) Performing Organization Address [facility] one Number [facility] [address] [place] [address] * CYTOLOGY FNA LYMPH NODE (09/27/2019 5:30 PM CDT) Cytology [facility] [email or web address] Department of Pathology and Laboratory Medicine [address] [place] [address] Surgical Pathology Office: [phone] CYTOLOGY REPORT NAME: MARY TIM SURG PATH #: [id number] MR #: [id number] ALT ID #: CAESAR #: [id number] LOCATION: 64 DATE OF PROCEDURE: 09/27/2019 AGE: 69 SEX: F DATE RECEIVED: 09/27/2019 : 1950 TIME RECEIVED: 17:42 PHYSICIAN: BRANDEN CHOE DATE OF REPORT: 10/01/2019 COPY TO: [...] determination of adequacy was performed by the airflight attendants supervisor ET, on Diff-Quik stained slide(s). Pass one adequate for evaluation. Passes two and three were submitted in RPMI for cell block. Pass four was submitted in RPMI for flow cyotmetry. B. ( 1 DQ direct smear, 1 Pap direct smear, 1 cell block) Rapid determination of adequacy was performed by the airflight attendants supervisor ET, on Diff-Quik stained slide(s). Pass one adequate for evaluation. Passes two and three were submitted in RPMI for cell block. C. ( 1 DQ direct smear, 1 Pap direct smear, 1 cell block) Rapid determination of adequacy was performed by the airflight attendants supervisor ET, on Diff-Quik stained slide(s). Pass one adequate for evaluation. Passes two and three were submitted in RPMI for cell block. ############################## ############################## ############ Final Diagnosis: A. Lymph Node- Station 7, EBUS-FNA: Polymorphous population of lymphocytes. Please also see concurrent flow cytometry report ([id number]), which reports negative phenotypic study. B. Lymph [...] Specimen Lymph Node (Specify) Performing Organization Address City/State/[facility] Ph one Number MAIN LAB [address] [place] [address] * BRONCHOSCOPY (09/27/2019 4:30 PM CDT) Provation Patient Name: Mary MCMULLEN OTHE R Report Procedure Date: 09/27/2019 4:30 RESULT S PM CSN: [id number] Date of : 1950 Gender: Female Attending Physician: Branden Choe MD Procedure: Bronchoscopy Indications: Abnormal CT scan of chest, Bilateral hilar lymphadenopathy Providers: Branden Choe MD (Doctor), Milo Gutierrez (Fellow), George Bacon (Nurse), Silvia Meier, Video Library Assistant (Video Library Assistant) Referring Physician: Deena Winchester Unknown Medications: Tetricaine 0.25%/Epinephrine 0.003% 10 mL [...] 5:40:31 PM Procedure Code(s): --- Professional --- 64122, Bronchoscopy, rigid or flexible, including fluoroscopic guidance, when performed; with endobronchial ultrasound (EBUS) guided transtracheal and/or transbronchial sampling (eg, aspiration[s]/biopsy[ies]), 3 or more mediastinal and/or hilar lymph node stations or structures 55756, Bronchoscopy, rigid or flexible, including fluoroscopic guidance, when performed; with bronchial or endobronchial biopsy(s), single or multiple sites 42721, Bronchoscopy, rigid or flexible, including fluoroscopic guidance, when performed; with bronchial alveolar lavage 61287, Bronchoscopy, rigid or flexible, including fluoroscopic guidance, when performed; with transendoscopic endobronchial ultrasound (EBUS) during bronchoscopic diagnostic or therapeutic intervention(s) for peripheral lesion(s) (List separately in addition to code for primary procedure[s]) CPT copyright 2019 [employer]. All rights reserved. The codes documented in this report are preliminary and upon wool sacker review may be revised to meet current compliance requirements. Attending Participation: I was present and participated during the entire procedure, including non-ruiz portions. MD Brandne Patricia MD 09/27/2019 8:19:11 PM The attending physician has electronically signed and finalized this document. Milo Gutierrez, Number of Addenda: 0 Note Initiated On: 09/27/2019 4:30 PM Specimen Performing Organization Address [facility] Ph one Number KU OTHER RESULTS * IMMUNOFIXATION, SERUM (IFES) (09/27/2019 11:01 AM CDT) Immuno NO PARAPROTEIN SEEN KU MAIN LAB Fix-Serum Corrected on 10/03 AT 1622: previously reported as IGG KAPPA PARAPROTEIN Pathologist INTERPRETED BY FROILAN Huber AB Signature VIKKI GANT MD By the PATH SIGNATURE ABOVE, I attest that I have personally formulated the final interpretation expressed in this report and that the above diagnosis is based upon my examination of the slides and/or other material indicated in this report. Specimen Blood Performing Organization Address [facility] Ph one Number MAIN LAB [address] [place] [address] * ELECTROPHORESIS-SERUM PROTEIN (09/27/2019 11:01 AM CDT) Total 5.3 (L) 6.0 - 8.0 G/DL MAIN LAB Protein-SEP Albumin % 48.1 48 [...] this report. Specimen Blood Performing Organization Address City/[facility] Ph one Number MAIN LAB [address] [place] [address] * LACTIC ACID(LACTATE) (09/27/2019 11:01 AM CDT) Lactic Acid 2.1 (H) 0.5 - 2.0 MMOL/L MAIN LAB Specimen Blood Performing Organization Address City/[facility] Ph one Number [facility] LAB [address] [place] [address] * IGG SUBCLASSES (09/27/2019 11:01 AM CDT) Total IgG 735 (L) REFERENCE LAB Comment: Reference range: 767 to 1590 Unit: mg/dL [facility] [employer], [address] [place] [address] IgG Subclasses 363 REFERENCE LAB #1 Comment: Reference range: 341 to 894 Unit: mg/dL [employer], [address] [place] [address] 19752 IgG Subclasses 166 (L) MG/DL REFERENCE LAB #2 Comment: Reference range: 171 to 632 [facility] [employer], [address] [place] [address] IgG Subclasses 158.0 (H) REFERENCE LAB #3 Comment: Reference range: 18.4 to 106.0 Unit: mg/dL [employer], [address] [place] [address] IgG Subclasses 4.5 REFERENCE LAB #4 Comment: Reference range: 2.4 to 121.0 Unit: mg/dL [facility], [address], [place] [address] Specimen Blood Performing Organization Address City/[facility] Ph one Number REFERENCE LAB REFERENCE LAB See results for address. * ALPHA FETO PROTEIN (AFP) (09/27/2019 11:01 AM CDT) Alpha Feto 1.1 0.0 - 15.0 NG/ML MAIN LAB Protein Specimen Blood Performing Organization Address City/[facility] Ph one Number MAIN LAB [address] [place] [address] * PATHOLOGY SURGICAL < 5 SPECIMENS (09/27/2019 7:06 AM CDT) PATHOLOGY [facility] MAIN [facility] [email or web address] Department of Pathology and Laboratory Medicine [address] [place] [address] Surgical Pathology Office: [phone] SURGICAL PATHOLOGY REPORT NAME: MARY TIM SURG PATH #: [id number] MR #: [id number] SPECIMEN CLASS: SR BILLING #: [id number] ALT ID #: LOCATION: DATE OF PROCEDURE: 09/27/2019 AGE: 69 SEX: F DATE RECEIVED: 09/30/2019 : 1950 TIME RECEIVED: 07:06 PHYSICIAN: MILO GUTIERREZ DATE OF REPORT: 10/01/2019 COPY TO: CAROLIN PAULA MD DATE OF PRINTIN10/04/2019 ############################## ############################## [...] report. +++ +++ Frank Solis MD Resident bm/09/30/2019 ############################## ############################## ############ Material Received: A: RUL [...] cg/09/30/2019 Specimen Other (Specify) Performing Organization Address City/[facility] Ph one Number KU MAIN LAB [address] [place] [address] * BASIC METABOLIC PANEL (09/27/2019 4:11 AM CDT) Sodium 136 (L) 137 - 147 MMOL/L KU MAIN LAB Potassium 4.4 3.5 - 5.1 MMOL/L KU MAIN LAB Chloride 101 98 - 110 MMOL/L KU MAIN LAB CO2 19 (L) 21 - 30 MMOL/L KU MAIN LAB Anion Gap 16 (H) 3 - 12 KU MAIN LAB Glucose 93 70 - 100 MG/DL KU MAIN LAB Blood Urea 86 (H) 7 - 25 MG/DL KU MAIN LAB Nitrogen Creatinine 6.74 (H) 0.4 - 1.00 MG/DL KU MAIN LAB Calcium 9.1 8.5 - 10.6 MG/DL KU MAIN LAB eGFR Non 6 (L) >60 mL/min KU MAIN LAB Comment: Syrian The eGFR is not validated f or use in drug dosing adjustments. Continue to use estimated creatinine clearance per dosing reference text. Please contact the Clinical Pharmacist for questions. eGFR 7 (L) >60 mL/min KU MAIN LAB Syrian Comment: The eGFR is not validated for use in drug dosing adjustments. Continue to use estimated creatinine clearance per dosing reference text. Please contact the Clinical Pharmacist for questions. Specimen Blood Performing Organization Address City/[facility] Ph one Number KU MAIN LAB [address] [place] [address] * CBC AND DIFF (09/27/2019 4:11 AM CDT) White Blood 5.5 4.5 - 11.0 K/UL KU MAIN LAB Cells RBC 2.96 (L) 4.0 - 5.0 M/UL KU MAIN LAB Hemoglobin 9.0 (L) 12.0 - 15.0 GM/DL KU MAIN LAB Hematocrit 26.5 (L) 36 - 45 % KU MAIN LAB MCV 89.5 80 - 100 FL KU MAIN LAB MCH 30.6 26 - 34 PG KU MAIN LAB MCHC 34.1 32.0 - 36.0 G/DL KU MAIN LAB RDW 13.2 11 - 15 % KU MAIN LAB Platelet Count 222 150 - 400 K/UL KU MAIN LAB MPV 6.9 (L) 7 - 11 FL KU MAIN LAB Neutrophils 70 41 - 77 % KU MAIN LAB Lymphocytes 9 (L) 24 - 44 % KU MAIN LAB Monocytes 18 (H) 4 - 12 % KU MAIN LAB Eosinophils 2 0 - 5 % KU MAIN LAB Basophils 1 0 - 2 % KU MAIN LAB Absolute 3.82 1.8 - 7.0 K/UL KU MAIN LAB Neutrophil Count Absolute Lymph 0.48 (L) 1.0 - 4.8 K/UL KU MAIN LAB Count Absolute 1.01 (H) 0 - 0.80 K/UL KU MAIN LAB Monocyte Count Absolute 0.12 0 - 0.45 K/UL KU MAIN LAB Eosinophil Count Absolute 0.06 0 - 0.20 K/UL KU MAIN LAB Basophil Count Specimen Blood Performing Organization Address [facility] Ph one Number KU MAIN LAB [address] [place] [address] * LEUKEMIA-LYMPHOMA PANEL BLOOD (09/27/2019 4:11 AM CDT) Leuk/Lymph SEE PATHOLOGY REPORT KU MAIN LAB Interpretation Specimen/LLM BLOOD KU MAIN LAB Specimen Blood Performing Organization Address City/[facility] Ph one Number KU MAIN LAB [address] [place] [address] * CA19.9 (09/27/2019 4:11 AM CDT) CA 19-9 93 (H) <35 U/ml KU MAIN LAB Specimen Blood Performing Organization Address City/State/Zipcode Ph one Number [facility] LAB [address] [place] [address] * FLOW CYTOMETRY (09/27/2019 4:00 AM CDT) PATHOLOGY [facility] MAIN LAB [facility] [email or web address] Rubin Mcintosh MD, Director of Flow Cytometry Laboratory Department of Pathology and Laboratory Medicine [address] [place] [address] Surgical Pathology Office: [phone] FLOW CYTOMETRY REPORT NAME: MARY TIM SURG PATH #: [id number] MR #: [id number] SPECIMEN CLASS: LC BILLING #: [id number] ALT ID #: LOCATION: 64 DATE OF PROCEDURE: 09/27/2019 AGE: 69 SEX: F DATE RECEIVED: 09/27/2019 : 1950 TIME RECEIVED: 08:17 PHYSICIAN: CAROLIN PAULA MD DATE OF REPORT: 09/30/2019 COPY TO: YOVANA PAULA MD DATE OF PRINTIN09/30/2019 Material Received: A: Peripheral blood History: The patient is under evaluation for acute renal failure and anemia and mild adenopathy. ############################## ############################## ############ Final Diagnosis: A. Peripheral blood, flow cytometry: Phenotypic study reveals a moderately decreased CD4:CD8 ratio. Interpretation: Lymphocytes comprise 10% of cells and are predominantly T cells with a moderate decrease in the CD4 to CD8 ratio of 0.2, of uncertain significance. B cells are nearly absent. There is no definite phenotypic evidence of a lymphoproliferative disorder. Morphologic and clinical correlation is recommended. Attestation: By this signature, I attest that I have personally formulated the final interpretation expressed in this report and that the above diagnosis is based upon my examination of the slides and/or other material indicated in this report. +++Electronically Signed Out By+++ btp/09/27/2019 Interpreted by: Eloisa Mills MD 09/30/2019 ############################## ############################## ############ Lab Data: Flow Cytometry - Lymphoma Panel B Cell Associated Markers (% Positive Cells): CD19 = 0; CD19+CD5+ = 0; CD20 = 0; CD23 = 0; CD23+CD5+ = 0; [place] = 0; Lambda = 0; [place]:Lambda ratio = 5.4 T Cell Associated Markers (% Positive Cells): CD2 = 90; CD3 = 74; CD4 = 14; CD5 = 74; CD7 = 87; CD8 = 67 CD4:CD8 ratio = 0.2 Miscellaneous Markers (% Positive Cells): CD1d = 2; CD10 = 0; CD34 = 0; CD38 = 54; CD45 = 100; CD56 = 32; FMC7 = 1; CD200 = 0 Cell Viability (%): n/a Number of Cells Analyzed: 25,000 Total Number of Markers: 19 Summary of Marker Combinations: [place]/Lambda//19/38/45//; FMC7/23/200/34/1d//07/29; 2/7/5/3/4///8 This test was developed and its performance characteristics determined by the [facility] Flow Cytometry Laboratory. It has not been cleared or approved by the U.S. Food and Drug Administration (FDA). The FDA has determined that such clearance or approval is not necessary. Specimen Performing Organization Address City/[facility] Ph one Number MAIN LAB [address] [place] [address] * LIPASE (09/26/2019 11:26 AM CDT) Lipase 118 (H) 11 - 82 U/L MAIN LAB Specimen Performing Organization Address City/[facility] Ph one Number MAIN LAB [address] [place] [address] * CBC (09/26/2019 11:26 AM CDT) White Blood 6.5 4.5 - 11.0 K/UL KU MAIN LAB Cells RBC 3.22 (L) 4.0 - 5.0 M/UL KU MAIN LAB Hemoglobin 10.1 (L) 12.0 - 15.0 GM/DL KU MAIN LAB Hematocrit 28.8 (L) 36 - 45 % KU MAIN LAB MCV 89.5 80 - 100 FL KU MAIN LAB MCH 31.4 26 - 34 PG KU MAIN LAB MCHC 35.1 32.0 - 36.0 G/DL KU MAIN LAB RDW 13.1 11 - 15 % KU MAIN LAB Platelet Count 232 150 - 400 K/UL KU MAIN LAB MPV 6.7 (L) 7 - 11 FL KU MAIN LAB Specimen Performing Organization Address City/[facility] Ph one Number MAIN LAB [address] [place] [address] * BASIC METABOLIC PANEL (09/26/2019 11:26 AM CDT) [facility] Signature Sodium 135 (L) 137 - 147 MMOL/L KU MAIN LAB Potassium 4.0 3.5 - 5.1 MMOL/L KU MAIN LAB Chloride 97 (L) 98 - 110 MMOL/L KU MAIN LAB CO2 21 21 - 30 MMOL/L KU MAIN LAB Anion Gap 17 (H) 3 - 12 KU MAIN LAB Glucose 88 70 - 100 MG/DL KU MAIN LAB Blood Urea 87 (H) 7 - 25 MG/DL KU MAIN LAB Nitrogen Creatinine 6.33 (H) 0.4 - 1.00 MG/DL KU MAIN LAB Calcium 9.2 8.5 - 10.6 MG/DL KU MAIN LAB eGFR Non 7 (L) >60 mL/min KU MAIN LAB Comment: Syrian The eGFR is not validated f or use in drug dosing adjustments. Continue to use estimated creatinine clearance per dosing reference text. Please contact the Clinical Pharmacist for questions. eGFR 8 (L) >60 mL/min KU MAIN LAB Syrian Comment: The eGFR is not validated for use in drug dosing adjustments. Continue to use estimated creatinine clearance per dosing reference text. Please contact the Clinical Pharmacist for questions. Specimen Performing Organization Address City/[facility] Ph one Number MAIN LAB [address] [place] [address] * CT ABD/PELV WO CONTRAST (09/26/2019 10:59 AM CDT) Specimen Impressions Performed At . Abnormalities involving the liver, g allbladder, kidneys, right adrenal gland KU RAD RESULTS and retroperitoneum. 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 Erdheim-Lancaster disease and IgG-4 related disease are additiona [...] a dilated main pancreatic du ct. Dr. Hoyt discussed these findings with Ema landers by [...] gland and retroperitoneum. Leading consideration is lymphoma. Erdheim-Lancaster disease and IgG-4 related disease are additional [...] duct. Dr. Hoyt discussed these findings with Dc by telephone at 1:55 PM 09/26/2019 Finalized [...] MAIN FEV1/FVC-Pre 80 % KU PFT MAIN [id number] 66 % KU PFT MAIN [id number] 1.06 L/sec KU PFT MAIN [id number]-P 55 % KU PFT MAIN re RVN2-Pre [...] MAIN DLVA-#SD -1.019 ml/min/mmHg/L KU PFT MAIN [id number] 76 % KU PFT MAIN Specimen Narrative Performed At PFT MAIN Clinical history:->abnormal CT concerni ng for ILD/sarcoidosis Patient on bronchodilator therapy?->No Is this a pre-surgical evaluation?->No Performing Organization Address [facility] one Number PFT MAIN [address] [place] [address] * CALCIUM-URINE RANDOM (09/25/2019 9:25 PM CDT) Calcium-Urine,R 0.7 MG/DL KU MAIN LAB andom Specimen Urine - Urine Performing Organization [facility] one Number MAIN LAB [address] [place] [id number] * SCL 70 ANTIBODIES (09/25/2019 5:15 PM CDT) SCL70 Ab <0.2Comment: Interpretation: <1.0 AI K U MAIN LAB Negative Specimen Blood Performing Organization [facility] one Number MAIN LAB [address] [place] [address] * CARDIOLIPIN AB IGG/IGM (09/25/2019 5:15 PM CDT) Cardiolipin, <1.6 <20.0 GPL/ML MAIN LAB IgG Cardiolipin, 1.2 <20.0 MPL/ML MAIN LAB IgM Specimen Blood Performing Organization [facility] one Number MAIN LAB [address] [place] [address] * JOJO 1 ANTIBODIES (09/25/2019 5:15 PM CDT) Jojo 1 Antibody <0.2Comment: Interpretation: <1.0 AI K U MAIN LAB Negative Specimen Blood Performing Organization Address [facility] Ph one Number MAIN LAB [address] [place] [address] * MPO/PR3 W REFLEX TO ANCA (09/25/2019 5:15 PM CDT) [facility] Myeloperoxidase <0.2Comment: Interpretation: <1.0 AI KU MAIN LAB AB Negative Serine <0.2Comment: Interpretation: <1.0 AI K U MAIN LAB Protease3 AB Negative Specimen Blood Performing Organization Address [facility] Ph one Number MAIN LAB [address] [place] [address] * IMMUNOGLOBULINS-IGA,IGG,IGM (09/25/2019 5:15 PM CDT) [facility] IgG 707 (L) 762 - 1,488 MG/DL MAIN LAB IgA 110 70 - 390 MG/DL MAIN LAB IgM 60 38 - 328 MG/DL MAIN LAB Specimen Blood Performing Organization Address [facility] one Number MAIN LAB [address] [place] [address] * HYPERSENSITIVITY PNEUMONITIS IGG (09/25/2019 5:15 PM CDT) [facility] Alternaria 9.1 REFERENCE LAB Alternata Comment: Reference [...] clinical history. The test method was the [employer] ImmunoCAP. . *This test was developed and its performance characteristics determined by [facility]. It has not been cleared or approved by the U.S. Food and Drug Administration. Testing Performed At: [facility] [address] [place] [address] [employer] [place] [id number] CLIA ID: [id number] Specimen Blood Performing Organization Address [facility] REFERENCE LAB REFERENCE LAB See results for address. * ALDOLASE (09/25/2019 5:15 PM CDT) [facility] Aldolase 9.2 (H) REFERENCE LAB Comment: Reference range: <7.7 Unit: U/L This result may be falsely elevated. Hemoglobin contamination was observed in this sample, and hemolysis increases Aldolase results. Interpret results with caution. [facility] Specimen Blood Performing Organization Address [facility] REFERENCE LAB REFERENCE LAB See results for address. * CREATINE KINASE-CPK (09/25/2019 5:15 PM CDT) [facility] Creatine Kinase 31 21 - 215 U/L MAIN LAB Specimen Blood Performing Organization Address [facility] one Number MAIN LAB [address] [place] [address] * ANTI SSA ANTI SSB AB (09/25/2019 5:15 PM CDT) [facility] Anti-SSA <0.2Comment: Interpretation: <1.0 AI K U MAIN LAB Negative Anti-SSB <0.2Comment: Interpretation: <1.0 AI K U MAIN LAB Negative Specimen Blood Performing Organization Address [facility] one Number MAIN LAB [address] [place] [address] * CCP IGG ANTIBODY (09/25/2019 5:15 PM CDT) [facility] CCP IgG <0.5 <3.0 [IU]/mL MAIN LAB Antibody Specimen Blood Performing Organization Address [facility] one Number MAIN LAB [address] [place] [address] * ANTI-DNA DOUBLE STRAND (09/25/2019 3:46 PM CDT) [facility] DNA Double <10 <10 TITER MAIN LAB Strand AB Specimen Blood Performing Organization Address [facility] one Number MAIN LAB [address] [place] [address] * ANGIOTENSIN CONV ENZYME (CECE) (09/25/2019 3:46 PM CDT) [facility] Angiotensin 18 REFERENCE LAB Convert Enzyme Comment: Reference range: 16 to 85 Unit: U/L [facility] LABS Specimen Blood Performing Organization Address [facility] one Number REFERENCE LAB REFERENCE LAB See results for address. * HAPTOGLOBIN (09/25/2019 3:46 PM CDT) [facility] Haptoglobin 339 (H) 16 - 200 MG/DL MAIN LAB Specimen Blood Performing Organization Address [facility] one Number MAIN LAB [address] [place] [address] * RHEUMATOID FACTOR (RF) (09/25/2019 3:46 PM CDT) [facility] Rheum Factor 13Comment: NOTE NEW REFERENCE <25 IU/mL MAIN LAB Screen RANGES Specimen Blood Performing Organization Address [facility] one Number MAIN LAB [address] [place] [address] * ANTI-NUCLEAR ANTIBODY(VIV) (09/25/2019 3:46 PM CDT) [facility] VIV Screen <80 <80 TITER MAIN LAB Specimen Blood Performing Organization Address [facility] one Number MAIN LAB [address] [place] [address] * TRANSFUSE RBC'S (09/25/2019 2:26 PM CDT) Specimen Blood * TRANSFUSE RBC'S (09/25/2019 2:26 PM CDT) Specimen Blood * BLOOD TYPE CONFIRMATION - ORDER ONLY IF REQUESTED BY LAB (09/25/2019 9:35 AM CDT) ABO/RH(D) A POS MAIN LAB Specimen Blood Performing Organization Address [facility] one Number MAIN LAB [address] [place] [address] * TYPE & CROSSMATCH (09/25/2019 9:10 AM CDT) Units Ordered 1 MAIN LAB Crossmatch 09/28/2019,2359 MAIN LAB Expires Record Check 2ND TYPE REQUIRED MAIN LAB ABO/RH(D) A POS MAIN LAB Antibody Screen NEG MAIN LAB Electronic YES MAIN LAB Crossmatch Unit Number [id number] MAIN LAB Blood Component RBC,ADSOL,LEUKO REDUCED KU MAIN LAB Type Unit Division 0 MAIN LAB Status OF Unit TRANSFUSED MAIN LAB Transfusion OK TO TRANSFUSE MAIN LAB Status Crossmatch COMPATIBLE,ELECTRONIC MAIN LAB Result Specimen Blood Performing Organization Address [facility] one Number MAIN LAB [address] [place] [address] * RETICULOCYTE COUNT (09/25/2019 4:00 AM CDT) Pathologist [facility] Retic, 1.5 0.5 - 2.0 % MAIN LAB Uncorrected Retic, 0.7 % MAIN LAB Corrected Retic, Absolute 32.9 30 - 94 K/UL MAIN LAB Specimen Performing Organization Address [facility] one Number MAIN LAB [address] [place] [address] * PERIPHERAL SMEAR (09/25/2019 4:00 AM CDT) Pathologist [facility] Peripheral NORMOCYTIC ANEMIA. MAIN LAB Smear ABSOLUTE LYMPHOCYTOPENIA. MILD MONOCYTOSIS PLATELETS APPEAR NORMAL IN NUMBER AND MORPHOLOGY. Pathologist INTERPRETED BY FROILAN CHASE M.D. KU MAIN L AB Signature By the PATH SIGNATURE ABOVE , I attest that I have personally formulated the final interpretation expressed in this report and that the above diagnosis is based upon my examination of the slides and/or other material indicated in this report. Specimen Performing Organization Address [facility] one Number MAIN LAB [address] [place] [address] * LDH-LACTATE DEHYDROGENASE (09/25/2019 4:00 AM CDT) Lactate 456 (H) 100 - 210 U/L KU MAIN LAB Dehydrogenase Specimen Performing Organization Address [facility] Ph one Number KU MAIN LAB [address] [place] [address] * SED RATE (09/25/2019 4:00 AM CDT) Sed Rate -ESR 21 0 - 30 MM/HR KU MAIN LAB Specimen Performing Organization Address [facility] Ph one Number KEMI MAIN LAB [address] [place] [address] * C REACTIVE PROTEIN (CRP) (09/25/2019 4:00 AM CDT) C-Reactive 20.55 (H) <1.0 MG/DL KU MAIN LAB Protein Specimen Performing Organization Address [facility] Ph one Number [facility] MAIN LAB [address] [place] [address] * COMPREHENSIVE METABOLIC PANEL (09/25/2019 4:00 AM CDT) Sodium 136 (L) 137 - 147 MMOL/L KU MAIN LAB Potassium 4.0 3.5 - 5.1 MMOL/L KU MAIN LAB Chloride 101 98 - 110 MMOL/L KU MAIN LAB Glucose 79 70 - 100 MG/DL KU MAIN LAB Blood Urea 86 (H) 7 - 25 MG/DL KU MAIN LAB Nitrogen Creatinine 5.99 (H) 0.4 - 1.00 MG/DL KU MAIN LAB Calcium 8.4 (L) 8.5 - 10.6 MG/DL KU MAIN LAB Total Protein 5.3 (L) 6.0 - 8.0 G/DL KU MAIN LAB Total Bilirubin 0.3 0.3 - 1.2 MG/DL KU MAIN LAB Albumin 2.8 (L) 3.5 - 5.0 G/DL KU MAIN LAB Alk Phosphatase 92 25 - 110 U/L KU MAIN LAB AST (SGOT) 14 7 - 40 U/L KU MAIN LAB CO2 23 21 - 30 MMOL/L KU MAIN LAB ALT (SGPT) 11 7 - 56 U/L KU MAIN LAB Anion Gap 12 3 - 12 KU MAIN LAB eGFR Non 7 (L) >60 mL/min KU MAIN LAB Comment: Syrian The eGFR is not validated f or use in drug dosing adjustments. Continue to use estimated creatinine clearance per dosing reference text. Please contact the Clinical Pharmacist for questions. eGFR 8 (L) >60 mL/min KU MAIN LAB Syrian Comment: The eGFR is not validated for use in drug dosing adjustments. Continue to use estimated creatinine clearance per dosing reference text. Please contact the Clinical Pharmacist for questions. Specimen Blood Performing Organization Address City/[facility]/Zipcode Ph one Number [facility] MAIN LAB [address] [place] [address] * CBC AND DIFF (09/25/2019 4:00 AM CDT) White Blood 5.7 4.5 - 11.0 K/UL KU MAIN LAB Cells RBC 2.15 (L) 4.0 - 5.0 M/UL KU MAIN LAB Hemoglobin 6.7 (L) 12.0 - 15.0 GM/DL KU MAIN LAB Hematocrit 19.6 (L) 36 - 45 % KU MAIN LAB MCV 91.2 80 - 100 FL KU MAIN LAB MCH 31.0 26 - 34 PG KU MAIN LAB MCHC 34.0 32.0 - 36.0 G/DL KU MAIN LAB RDW 12.8 11 - 15 % KU MAIN LAB Platelet Count 175 150 - 400 K/UL KU MAIN LAB MPV 7.2 7 - 11 FL KU MAIN LAB Neutrophils 69 41 - 77 % KU MAIN LAB Lymphocytes 8 (L) 24 - 44 % KU MAIN LAB Monocytes 20 (H) 4 - 12 % KU MAIN LAB Eosinophils 2 0 - 5 % [facility] Basophils 1 0 - 2 % [facility] Absolute 3.93 1.8 - 7.0 K/UL [facility] Neutrophil Count Absolute Lymph 0.46 (L) 1.0 - 4.8 K/UL [facility] Count Absolute 1.14 (H) 0 - 0.80 K/UL [facility] Monocyte Count Absolute 0.11 0 - 0.45 K/UL [facility] Eosinophil Count Absolute 0.04 0 - 0.20 K/UL [facility] Basophil Count Specimen Blood Performing Organization Address City/State/Zipcode Ph one Number [facility] [address] [place] [address] * CT CHEST WO CONTRAST (09/24/2019 9:47 [...] Ph one Number [facility] * CHEST 2 VIEWS (09/24/2019 1:41 PM CDT) Specimen Impressions Performed At Areas of fibrosis. Superimposed opacities may be due to atelectasis, pneumonia [facility] and/or scarring. CT chest is recommende d for further evaluation. By my electronic signature, I attest th at I have personally reviewed the images for this examination and formulated the interpretations and opinions expressed in this report Finalized by Carmela Lane M.D. on 3:10 PM. Dictated by Yakelin Summers M.D. on 09/24/2019 2:26 PM. Narrative Performed At Procedure: CHEST 2 VIEWS [facility] Clinical Indication: 69-year-old fema le, shortness of breath. ROSHAN. Comparison: No prior radiographic kylee ging. Findings: The heart is normal in size and configu ration. There is no pulmonary vascular congestion. Opacities are seen in the l ungs bilaterally, some of which appear chronic in nature. Superimposed atelect asis and/or pneumonia is not excluded. There is slight blunting of the right c ostophrenic angle which may be due to a small pleural effusion and/or pleural t hickening. ACDF hardware partially visualized. Thoracic spondylosis. Procedure Note Interface, Radiant Results - 09/24/2019 3:13 PM CDT Procedure: CHEST 2 VIEWS Clinical Indication: 69-year-old female, shortness of breath. ROSHAN. Comparison: No prior radiographic imaging. Findings: The heart is normal in size and configuration. There is no pulmonary vascular congestion. Opacities are seen in the lungs bilaterally, some of which appear chronic in nature. Superimposed atelectasis and/or pneumonia is not excluded. There is slight blunting of the right costophrenic angle which may be due to a small pleural effusion and/or pleural thickening. ACDF hardware partially visualized. Thoracic spondylosis. IMPRESSION Areas of fibrosis. Superimposed opacities may be due to atelectasis, pneumonia and/or scarring. CT chest is recommended for further evaluation. By my electronic signature, I attest that I have personally reviewed the images for this examination and formulated the interpretations and opinions expressed in this report Finalized by Carmela Lane M.D. on 09/24/2019 3:10 PM. Dictated by Yakelin Summers M.D. on 09/24/2019 2:26 PM. Performing Organization Address City/State/Zipcode Ph one Number [facility] * COMPREHENSIVE METABOLIC PANEL (09/24/2019 6:30 AM CDT) Sodium 134 (L) 137 - 147 MMOL/L [facility] Potassium 4.0 3.5 - 5.1 MMOL/L [facility] Chloride 97 (L) 98 - 110 MMOL/L [facility] Glucose 89 70 - 100 MG/DL [facility] Blood Urea 88 (H) 7 - 25 MG/DL [facility] Nitrogen Creatinine 5.93 (H) 0.4 - 1.00 MG/DL [facility] Calcium 8.6 8.5 - 10.6 MG/DL [facility] Total Protein 5.3 (L) 6.0 - 8.0 G/DL [facility] Total Bilirubin 0.3 0.3 - 1.2 MG/DL [facility] Albumin 2.8 (L) 3.5 - 5.0 G/DL [facility] Alk Phosphatase 98 25 - 110 U/L [facility] AST (SGOT) 16 7 - 40 U/L [facility] CO2 22 21 - 30 MMOL/L [facility] ALT (SGPT) 14 7 - 56 U/L [facility] Anion Gap 15 (H) 3 - 12 [facility] eGFR Non 7 (L) >60 mL/min [facility] Comment: Syrian The eGFR is not validated f or use in drug dosing adjustments. Continue to use estimated creatinine clearance per dosing reference text. Please contact the Clinical Pharmacist for questions. eGFR 9 (L) >60 mL/min [facility] Syrian Comment: The eGFR is not validated for use in drug dosing adjustments. Continue to use estimated creatinine clearance per dosing reference text. Please contact the Clinical Pharmacist for questions. Specimen Blood Performing Organization Address [facility] Ph one Number [facility] [address] [place] [address] * CBC AND DIFF (09/24/2019 6:30 AM CDT) White Blood 6.9 4.5 - 11.0 K/UL [facility] Cells RBC 2.48 (L) 4.0 - 5.0 M/UL [facility] Hemoglobin 7.6 (L) 12.0 - 15.0 GM/DL [facility] Hematocrit 22.3 (L) 36 - 45 % [facility] MCV 90.1 80 - 100 FL [facility] MCH 30.5 26 - 34 PG [facility] MCHC 33.8 32.0 - 36.0 G/DL [facility] RDW 12.5 11 - 15 % [facility] Platelet Count 217 150 - 400 K/UL [facility] MPV 6.8 (L) 7 - 11 FL [facility] Neutrophils 73 41 - 77 % [facility] Lymphocytes 8 (L) 24 - 44 % [facility] Monocytes 16 (H) 4 - 12 % [facility] Eosinophils 2 0 - 5 % [facility] Basophils 1 0 - 2 % [facility] Absolute 5.10 1.8 - 7.0 K/UL [facility] Neutrophil Count Absolute Lymph 0.53 (L) 1.0 - 4.8 K/UL [facility] Count Absolute 1.14 (H) 0 - 0.80 K/UL [facility] Monocyte Count Absolute 0.12 0 - 0.45 K/UL [facility] Eosinophil Count Absolute 0.05 0 - 0.20 K/UL [facility] Basophil Count Specimen Blood Performing Organization Address City/[facility]/Zipcode Ph one Number [facility] [address] [place] [address] * COMPREHENSIVE METABOLIC PANEL (09/23/2019 5:37 AM CDT) Sodium 135 (L) 137 - 147 MMOL/L [facility] Potassium 3.9 3.5 - 5.1 MMOL/L [facility] Chloride 97 (L) 98 - 110 MMOL/L [facility] Glucose 87 70 - 100 MG/DL [facility] Blood Urea 89 (H) 7 - 25 MG/DL [facility] Nitrogen Creatinine 6.02 (H) 0.4 - 1.00 MG/DL [facility] Calcium 8.9 8.5 - 10.6 MG/DL [facility] Total Protein 5.5 (L) 6.0 - 8.0 G/DL [facility] Total Bilirubin 0.3 0.3 - 1.2 MG/DL [facility] Albumin 3.0 (L) 3.5 - 5.0 G/DL [facility] Alk Phosphatase 107 25 - 110 U/L [facility] AST (SGOT) 18 7 - 40 U/L [facility] CO2 22 21 - 30 MMOL/L [facility] ALT (SGPT) 14 7 - 56 U/L [facility] Anion Gap 16 (H) 3 - 12 [facility] eGFR Non 7 (L) >60 mL/min [facility] Comment: Syrian The eGFR is not validated f or use in drug dosing adjustments. Continue to use estimated creatinine clearance per dosing reference text. Please contact the Clinical Pharmacist for questions. eGFR 8 (L) >60 mL/min [facility] Syrian Comment: The eGFR is not validated for use in drug dosing adjustments. Continue to use estimated creatinine clearance per dosing reference text. Please contact the Clinical Pharmacist for questions. Specimen Blood Performing Organization Address City/State/Zipcode Ph one Number [facility] [address] [place] [address] * CBC AND DIFF (09/23/2019 5:37 AM CDT) White Blood 7.0 4.5 - 11.0 K/UL [facility] Cells RBC 2.63 (L) 4.0 - 5.0 M/UL [facility] Hemoglobin 8.3 (L) 12.0 - 15.0 GM/DL [facility] Hematocrit 23.7 (L) 36 - 45 % [facility] MCV 90.0 80 - 100 FL [facility] MCH 31.4 26 - 34 PG [facility] MCHC 34.9 32.0 - 36.0 G/DL [facility] RDW 12.5 11 - 15 % [facility] Platelet Count 232 150 - 400 K/UL [facility] MPV 6.8 (L) 7 - 11 FL [facility] Neutrophils 72 41 - 77 % [facility] Lymphocytes 7 (L) 24 - 44 % [facility] Monocytes 18 (H) 4 - 12 % [facility] Eosinophils 2 0 - 5 % [facility] Basophils 1 0 - 2 % [facility] Absolute 5.11 1.8 - 7.0 K/UL [facility] Neutrophil Count Absolute Lymph 0.46 (L) 1.0 - 4.8 K/UL [facility] Count Absolute 1.24 (H) 0 - 0.80 K/UL [facility] Monocyte Count Absolute 0.14 0 - 0.45 K/UL [facility] Eosinophil Count Absolute 0.06 0 - 0.20 K/UL [facility] Basophil Count Specimen Blood Performing Organization Address City/State/Zipcode Ph one Number [facility] [address] [place] [address] * COMPREHENSIVE METABOLIC PANEL (09/22/2019 5:00 AM CDT) Sodium 135 (L) 137 - 147 MMOL/L [facility] Potassium 3.8 3.5 - 5.1 MMOL/L [facility] Chloride 96 (L) 98 - 110 MMOL/L [facility] Glucose 85 70 - 100 MG/DL [facility] Blood Urea 93 (H) 7 - 25 MG/DL [facility] Nitrogen Creatinine 5.82 (H) 0.4 - 1.00 MG/DL [facility] Calcium 8.6 8.5 - 10.6 MG/DL [facility] Total Protein 5.5 (L) 6.0 - 8.0 G/DL [facility] Total Bilirubin 0.3 0.3 - 1.2 MG/DL [facility] Albumin 2.8 (L) 3.5 - 5.0 G/DL [facility] Alk Phosphatase 119 (H) 25 - 110 U/L [facility] AST (SGOT) 16 7 - 40 U/L [facility] CO2 23 21 - 30 MMOL/L [facility] ALT (SGPT) 16 7 - 56 U/L [facility] Anion Gap 16 (H) 3 - 12 [facility] eGFR Non 7 (L) >60 mL/min [facility] Comment: Syrian The eGFR is not validated f or use in drug dosing adjustments. Continue to use estimated creatinine clearance per dosing reference text. Please contact the Clinical Pharmacist for questions. eGFR 9 (L) >60 mL/min [facility] Syrian Comment: The eGFR is not validated for use in drug dosing adjustments. Continue to use estimated creatinine clearance per dosing reference text. Please contact the Clinical Pharmacist for questions. Specimen Blood Performing Organization Address City/[facility] Ph one Number [facility] [address] [place] [id number] * CBC AND DIFF (09/22/2019 5:00 AM CDT) Pathologist [facility] White Blood 6.4 4.5 - 11.0 K/UL [facility] Cells RBC 2.61 (L) 4.0 - 5.0 M/UL [facility] Hemoglobin 8.0 (L) 12.0 - 15.0 GM/DL [facility] Hematocrit 23.4 (L) 36 - 45 % [facility] MCV 89.5 80 - 100 FL [facility] MCH 30.5 26 - 34 PG [facility] MCHC 34.1 32.0 - 36.0 G/DL [facility] RDW 12.5 11 - 15 % [facility] Platelet Count 253 150 - 400 K/UL [facility] MPV 7.1 7 - 11 FL [facility] Neutrophils 72 41 - 77 % [facility] Lymphocytes 8 (L) 24 - 44 % [facility] Monocytes 16 (H) 4 - 12 % [facility] Eosinophils 3 0 - 5 % [facility] Basophils 1 0 - 2 % [facility] Absolute 4.62 1.8 - 7.0 K/UL [facility] Neutrophil Count Absolute Lymph 0.49 (L) 1.0 - 4.8 K/UL [facility] Count Absolute 1.02 (H) 0 - 0.80 K/UL [facility] Monocyte Count Absolute 0.17 0 - 0.45 K/UL [facility] Eosinophil Count Absolute 0.06 0 - 0.20 K/UL [facility] Basophil Count Specimen Blood Performing Organization Address City/[facility]/Zipcode Ph one Number [facility] [address] [place] [address] * HEPATITIS PANEL, ACUTE (09/21/2019 6:29 AM CDT) Pathologist [facility] Hepatitis A IgM Non-Reactive WLMR-Ivl-Bgcimome [facility] Anti HBc IgM Non-Reactive: IgM antibodies PBI-Pzo-Kqrpqenq: [facility] to HBV core antigen (anti-HBc) IgM antibodies to were not detected. HBV core antigen (anti-H HBsAg Non-Reactive: HBs antigen not HEIV-Oxv-Cvtzqcy e: [facility] detected HBs antigen not detected Anti HCV Non-Reactive: Antibodies to PAKXL-Nyp-Bwmmtjay : [facility] HCV were not detected. Antibodies to HCV were not detected. Specimen Blood Performing Organization Address [facility] one Number MAIN LAB [address] [place] [address] * COMPREHENSIVE METABOLIC PANEL (09/21/2019 6:29 AM CDT) Sodium 139 137 - 147 MMOL/L [facility] Potassium 4.2 3.5 - 5.1 MMOL/L [facility] Chloride 97 (L) 98 - 110 MMOL/L [facility] Glucose 86 70 - 100 MG/DL [facility] Blood Urea 92 (H) 7 - 25 MG/DL [facility] Nitrogen Creatinine 6.58 (H) 0.4 - 1.00 MG/DL [facility] Calcium 9.0 8.5 - 10.6 MG/DL [facility] Total Protein 5.8 (L) 6.0 - 8.0 G/DL [facility] Total Bilirubin 0.4 0.3 - 1.2 MG/DL [facility] Albumin 3.0 (L) 3.5 - 5.0 G/DL [facility] Alk Phosphatase 152 (H) 25 - 110 U/L [facility] AST (SGOT) 20 7 - 40 U/L [facility] CO2 26 21 - 30 MMOL/L [facility] ALT (SGPT) 24 7 - 56 U/L [facility] Anion Gap 16 (H) 3 - 12 [facility] eGFR Non 6 (L) >60 mL/min [facility] Comment: Syrian The eGFR is not validated f or use in drug dosing adjustments. Continue to use estimated creatinine clearance per dosing reference text. Please contact the Clinical Pharmacist for questions. eGFR 8 (L) >60 mL/min [facility] Syrian Comment: The eGFR is not validated for use in drug dosing adjustments. Continue to use estimated creatinine clearance per dosing reference text. Please contact the Clinical Pharmacist for questions. Specimen Blood Performing Organization Address [facility] one Number MAIN LAB [address] [place] [address] * CBC AND DIFF (09/21/2019 6:29 AM CDT) White Blood 6.3 4.5 - 11.0 K/UL [facility] Cells RBC 2.84 (L) 4.0 - 5.0 M/UL [facility] Hemoglobin 8.7 (L) 12.0 - 15.0 GM/DL [facility] Hematocrit 25.7 (L) 36 - 45 % [facility] MCV 90.6 80 - 100 FL [facility] MCH 30.7 26 - 34 PG [facility] MCHC 33.8 32.0 - 36.0 G/DL [facility] RDW 12.9 11 - 15 % [facility] Platelet Count 272 150 - 400 K/UL [facility] MPV 7.4 7 - 11 FL [facility] Neutrophils 68 41 - 77 % [facility] Lymphocytes 10 (L) 24 - 44 % [facility] Monocytes 18 (H) 4 - 12 % [facility] Eosinophils 3 0 - 5 % [facility] Basophils 1 0 - 2 % [facility] Absolute 4.31 1.8 - 7.0 K/UL [facility] Neutrophil Count Absolute Lymph 0.63 (L) 1.0 - 4.8 K/UL [facility] Count Absolute 1.15 (H) 0 - 0.80 K/UL [facility] Monocyte Count Absolute 0.17 0 - 0.45 K/UL [facility] Eosinophil Count Absolute 0.06 0 - 0.20 K/UL [facility] Basophil Count Specimen Blood Performing Organization Address City/State/Zipcode Ph one Number [facility] [address] [facility] [place] [address] * COMPREHENSIVE METABOLIC PANEL (09/20/2019 4:46 AM CDT) Sodium 139 137 - 147 MMOL/L [facility] Potassium 3.8 3.5 - 5.1 MMOL/L [facility] Chloride 97 (L) 98 - 110 MMOL/L [facility] Glucose 92 70 - 100 MG/DL [facility] Blood Urea 91 (H) 7 - 25 MG/DL [facility] Nitrogen Creatinine 6.21 (H) 0.4 - 1.00 MG/DL [facility] Calcium 8.8 8.5 - 10.6 MG/DL [facility] Total Protein 5.2 (L) 6.0 - 8.0 G/DL [facility] Total Bilirubin 0.3 0.3 - 1.2 MG/DL [facility] Albumin 2.8 (L) 3.5 - 5.0 G/DL [facility] Alk Phosphatase 179 (H) 25 - 110 U/L [facility] AST (SGOT) 47 (H) 7 - 40 U/L [facility] CO2 23 21 - 30 MMOL/L [facility] ALT (SGPT) 33 7 - 56 U/L [facility] Anion Gap 19 (H) 3 - 12 [facility] eGFR Non 7 (L) >60 mL/min [facility] Comment: Syrian The eGFR is not validated f or use in drug dosing adjustments. Continue to use estimated creatinine clearance per dosing reference text. Please contact the Clinical Pharmacist for questions. eGFR 8 (L) >60 mL/min [facility] Syrian Comment: The eGFR is not validated for use in drug dosing adjustments. Continue to use estimated creatinine clearance per dosing reference text. Please contact the Clinical Pharmacist for questions. Specimen Blood Performing Organization Address City/State/Zipcode Ph one Number [facility] [address] [place] [address] * CBC AND DIFF (09/20/2019 4:46 AM CDT) White Blood 6.1 4.5 - 11.0 K/UL [facility] Cells RBC 2.67 (L) 4.0 - 5.0 M/UL [facility] Hemoglobin 8.4 (L) 12.0 - 15.0 GM/DL [facility] Hematocrit 24.0 (L) 36 - 45 % [facility] MCV 89.9 80 - 100 FL [facility] MCH 31.6 26 - 34 PG [facility] MCHC 35.2 32.0 - 36.0 G/DL [facility] RDW 12.6 11 - 15 % [facility] Platelet Count 263 150 - 400 K/UL [facility] MPV 6.4 (L) 7 - 11 FL [facility] Neutrophils 70 41 - 77 % [facility] Lymphocytes 10 (L) 24 - 44 % [facility] Monocytes 16 (H) 4 - 12 % [facility] Eosinophils 3 0 - 5 % [facility] Basophils 1 0 - 2 % [facility] Absolute 4.28 1.8 - 7.0 K/UL [facility] Neutrophil Count Absolute Lymph 0.61 (L) 1.0 - 4.8 K/UL [facility] Count Absolute 0.95 (H) 0 - 0.80 K/UL [facility] Monocyte Count Absolute 0.18 0 - 0.45 K/UL [facility] Eosinophil Count Absolute 0.06 0 - 0.20 K/UL [facility] Basophil Count Specimen Blood Performing Organization Address [facility] one Number [facility] [address] [place] [address] * BASIC METABOLIC PANEL (09/19/2019 4:23 PM CDT) Pathologist [facility] Sodium 139 137 - 147 MMOL/L [facility] Potassium 3.8 3.5 - 5.1 MMOL/L [facility] Chloride 99 98 - 110 MMOL/L [facility] CO2 22 21 - 30 MMOL/L [facility] Anion Gap 18 (H) 3 - 12 [facility] Glucose 103 (H) 70 - 100 MG/DL [facility] Blood Urea 93 (H) 7 - 25 MG/DL [facility] Nitrogen Creatinine 6.28 (H) 0.4 - 1.00 MG/DL [facility] Calcium 8.9 8.5 - 10.6 MG/DL [facility] eGFR Non 7 (L) >60 mL/min [facility] Comment: Syrian The eGFR is not validated f or use in drug dosing adjustments. Continue to use estimated creatinine clearance per dosing reference text. Please contact the Clinical Pharmacist for questions. eGFR 8 (L) >60 mL/min [facility] Syrian Comment: The eGFR is not validated for use in drug dosing adjustments. Continue to use estimated creatinine clearance per dosing reference text. Please contact the Clinical Pharmacist for questions. Specimen Blood Performing Organization Address City/[facility] one Number [facility] [address] [place] [address] * 2D + DOPPLER ECHO (09/19/2019 2:11 PM CDT) IVS 0.71 0.6 - 0.9 cm OTHER [...] 34 OTHER OUTSIDE Index LAB Cardiology Siemens [id number] OTHER OUTSIDE Ultrasound LAB Machine Left Ventricle [...] 12:01 PM CDT) Battery Name URINE CULTURE [facility] Specimen URINE,INDWELLING CATH [facility] Description Special NONE [facility] Requests Culture >100,000 CFU/ml MAIN LAB ESCHERICHIA COLI >100,000 CFU/ml ENTEROBACTER CLOACAE COMPLEX (A) Report Status FINAL MAIN LAB 09/22/2019 Organism ID >[id number] CFU/ml MAIN [...] Resistant >100,000 cfu/ml enterobacter cloacae complex Cefazolin APTY (MCG/ML) INTERPRETATION >16 RESISTANT: Resistant >100,000 cfu/ml enterobacter cloacae complex Levofloxacin PATY (MCG/ML) INTERPRETATION <=1 SUSCEPTIBLE: Susceptible >100,000 cfu/ml enterobacter cloacae complex Nitrofurantoin PATY (MCG/ML) INTERPRETATION 32 SUSCEPTIBLE: Susceptible >100,000 cfu/ml enterobacter cloacae complex Gentamicin PATY (MCG/ML) INTERPRETATION <=2 SUSCEPTIBLE: Susceptible >100,000 cfu/ml enterobacter cloacae complex Trimethsulfa PATY (MCG/ML) INTERPRETATION <=0.5/9.5 SUSCEPTIBLE: Susceptible >100,000 cfu/ml enterobacter cloacae complex Piperacil/Tazobactam PATY (MCG/ML) INTERPRETATION 4/4 SUSCEPTIBLE: Susceptible >100,000 cfu/ml [...] cfu/ml enterobacter cloacae complex Performing Organization Address City/State/[facility] Ph one Number [facility] [address] [place] [address] * COMPREHENSIVE METABOLIC PANEL (09/19/2019 7:21 AM CDT) [facility] Signature Sodium 141 137 - 147 MMOL/L [facility] Potassium 3.8 3.5 - 5.1 MMOL/L [facility] Chloride 102 98 - 110 MMOL/L [facility] Glucose 104 (H) 70 - 100 MG/DL [facility] Blood Urea 97 (H) 7 - 25 MG/DL [facility] Nitrogen Creatinine 6.49 (H) 0.4 - 1.00 MG/DL [facility] Calcium 9.0 8.5 - 10.6 MG/DL [facility] Total Protein 5.4 (L) 6.0 - 8.0 G/DL [facility] Total Bilirubin 0.3 0.3 - 1.2 MG/DL [facility] Albumin 2.9 (L) 3.5 - 5.0 G/DL [facility] Alk Phosphatase 95 25 - 110 U/L [facility] AST (SGOT) 17 7 - 40 U/L [facility] CO2 19 (L) 21 - 30 MMOL/L [facility] ALT (SGPT) 9 7 - 56 U/L [facility] Anion Gap 20 (H) 3 - 12 [facility] eGFR Non 6 (L) >60 mL/min [facility] Comment: Syrian The eGFR is not validated f or use in drug dosing adjustments. Continue to use estimated creatinine clearance per dosing reference text. Please contact the Clinical Pharmacist for questions. eGFR 8 (L) >60 mL/min [facility] Syrian Comment: The eGFR is not validated for use in drug dosing adjustments. Continue to use estimated creatinine clearance per dosing reference text. Please contact the Clinical Pharmacist for questions. Specimen Blood Performing Organization Address City/State/Zipcode Ph one Number [facility] MAIN [facility] [address] [place] [address] * CBC AND DIFF (09/19/2019 7:21 AM CDT) White Blood 6.8 4.5 - 11.0 K/UL [facility] Cells RBC 2.66 (L) 4.0 - 5.0 M/UL [facility] Hemoglobin 8.3 (L) 12.0 - 15.0 GM/DL [facility] Hematocrit 23.8 (L) 36 - 45 % [facility] MCV 89.8 80 - 100 FL [facility] MCH 31.1 26 - 34 PG [facility] MCHC 34.6 32.0 - 36.0 G/DL [facility] RDW 12.9 11 - 15 % [facility] Platelet Count 289 150 - 400 K/UL [facility] MPV 6.5 (L) 7 - 11 FL [facility] Neutrophils 74 41 - 77 % [facility] Lymphocytes 8 (L) 24 - 44 % [facility] Monocytes 15 (H) 4 - 12 % [facility] Eosinophils 2 0 - 5 % [facility] Basophils 1 0 - 2 % [facility] Absolute 5.10 1.8 - 7.0 K/UL [facility] Neutrophil Count Absolute Lymph 0.52 (L) 1.0 - 4.8 K/UL [facility] Count Absolute 0.99 (H) 0 - 0.80 K/UL [facility] Monocyte Count Absolute 0.15 0 - 0.45 K/UL [facility] Eosinophil Count Absolute 0.04 0 - 0.20 K/UL [facility] Basophil Count Specimen Blood Performing Organization Address [facility] Ph one Number [facility] [address] [place] [address] * BASIC METABOLIC PANEL (09/18/2019 5:35 PM CDT) Sodium 138 137 - 147 MMOL/L [facility] Potassium 4.2 3.5 - 5.1 MMOL/L [facility] Chloride 106 98 - 110 MMOL/L [facility] CO2 16 (L) 21 - 30 MMOL/L [facility] Anion Gap 16 (H) 3 - 12 [facility] Glucose 114 (H) 70 - 100 MG/DL [facility] Blood Urea 100 (H) 7 - 25 MG/DL [facility] Nitrogen Creatinine 6.71 (H) 0.4 - 1.00 MG/DL [facility] Calcium 9.2 8.5 - 10.6 MG/DL [facility] eGFR Non 6 (L) >60 mL/min [facility] Comment: Syrian The eGFR is not validated f or use in drug dosing adjustments. Continue to use estimated creatinine clearance per dosing reference text. Please contact the Clinical Pharmacist for questions. eGFR 7 (L) >60 mL/min [facility] [place] Comment: The eGFR is not validated for use in drug dosing adjustments. Continue to use estimated creatinine clearance per dosing reference text. Please contact the Clinical Pharmacist for questions. Specimen Blood Performing Organization Address City/[facility] Ph one Number [facility] [address] [place] [address] * BASIC METABOLIC PANEL (09/18/2019 5:30 PM CDT) Sodium 139 137 - 147 MMOL/L [facility] Potassium 4.2 3.5 - 5.1 MMOL/L [facility] Chloride 106 98 - 110 MMOL/L [facility] CO2 16 (L) 21 - 30 MMOL/L [facility] Anion Gap 17 (H) 3 - 12 [facility] Glucose 112 (H) 70 - 100 MG/DL [facility] Blood Urea 103 (H) 7 - 25 MG/DL [facility] Nitrogen Creatinine 6.59 (H) 0.4 - 1.00 MG/DL [facility] Calcium 9.3 8.5 - 10.6 MG/DL [facility] eGFR Non 6 (L) >60 mL/min [facility] Comment: Syrian The eGFR is not validated f or use in drug dosing adjustments. Continue to use estimated creatinine clearance per dosing reference text. Please contact the Clinical Pharmacist for questions. eGFR 8 (L) >60 mL/min [facility] [place] Comment: The eGFR is not validated for use in drug dosing adjustments. Continue to use estimated creatinine clearance per dosing reference text. Please contact the Clinical Pharmacist for questions. Specimen Blood Performing Organization Address City/State/Zipcode Ph one Number [facility] [address] [place] [address] * US DOPPLER ABD PELV RETROPER COMP [...] Doppler ultrasound images were obtained through the [employer] system. Initial images were performed the morning of 09/18/2019, though the [facility] ient requested early termination of the exam. The patient returned to the [facility] tme and the exam was completed [...] on 09/18/2019 9:16 AM. Performing Organization Address City/State/[facility] Ph one Number [facility] RAD RESULTS * US RENAL BLADDER COMPLETE (09/18/2019 10:51 AM CDT) [...] performed the morning of 09/18/2019, though the [facility] ient requested early termination of the exam. The patient returned to the [facility] tment and the exam was completed later that [...] on 09/18/2019 9:16 AM. Performing Organization Address [facility] one Number RAD RESULTS * OSMOLALITY (09/18/2019 9:54 AM CDT) Osmolality 324 (H) 280 - 307 MOSMOL/KG MAIN LA B Specimen Blood Performing Organization Address [facility] one Number MAIN LAB [address] [place] [address] * PTT (APTT) (09/18/2019 9:54 AM CDT) APTT 27.5 24.0 - 36.5 SEC MAIN LAB Specimen Blood Performing Organization [facility] one Number MAIN LAB [address] [place] [address] * PROTIME INR (PT) (09/18/2019 9:54 AM CDT) INR 1.4 (H) 0.8 - 1.2 MAIN LAB Specimen Blood Performing Organization Address [facility] one Number MAIN LAB [address] [place] [address] * TSH WITH FREE T4 REFLEX (09/18/2019 9:54 AM CDT) TSH 1.67 0.35 - 5.00 MCU/ML MAIN LAB Specimen Blood Performing Organization Address [facility] one Number MAIN LAB [address] [place] [address] * VITAMIN B12 (09/18/2019 9:54 AM CDT) Vitamin B12 289 180 - 914 PG/ML MAIN LAB Specimen Blood Performing Organization Address [facility] one Number MAIN LAB [address] [place] [address] * FOLATE, SERUM (09/18/2019 9:54 AM CDT) Pathologist [facility] Serum Folate 4.0 >3.9 NG/ML KU MAIN LAB Specimen Blood Performing Organization [facility] one Number MAIN LAB [address] [place] [address] * OSMOLALITY-URINE RANDOM (09/18/2019 9:15 AM CDT) Pathologist [facility] Osmolality-Urin 377 50 - 1,400 MOS/KG K[facility] MAIN LAB e Specimen Urine - Urine Performing Organization [facility] one Number MAIN LAB [address] [place] [address] * CHLORIDE-URINE RANDOM (09/18/2019 9:15 AM CDT) Pathologist [facility] Chloride, 53 MMOL/L K[facility] MAIN LAB Random Specimen Urine - Urine Performing [facility] one Number MAIN LAB [address] [place] [id number] * PROTEIN/CR RATIO,UR RAN (09/18/2019 9:15 AM CDT) Pathologist [facility] Protein, Random 83 MG/DL KU MAIN LAB Creatinine, 95 MG/DL K[facility] MAIN LAB Random Protein/CR 0.9 [facility] MAIN LAB ratio Specimen Urine - Urine Performing [facility] one Number MAIN LAB [address] [place] [address] * RETICULOCYTE COUNT (09/18/2019 7:02 AM CDT) Pathologist [facility] Retic, 2.0 0.5 - 2.0 % [facility] MAIN LAB Uncorrected Retic, 1.2 % [facility] MAIN LAB Corrected Retic, Absolute 55.0 30 - 94 K/UL [facility] MAIN LAB Specimen Performing Organization [facility] one Number MAIN LAB [address] [place] [address] * IRON + BINDING CAPACITY + %SAT+ FERRITIN (09/18/2019 7:02 AM CDT) Iron 22 (L) 50 - 160 MCG/DL [facility] MAIN LAB Iron 203 (L) 270 - 380 MCG/DL [facility] MAIN LAB Binding-TIBC % Saturation 11 (L) 28 - 42 % [facility] MAIN LAB Ferritin 345 (H) 10 - 200 NG/ML [facility] MAIN LAB Specimen Performing Organization Address [facility] one Number MAIN LAB [address] [place] [address] * COMPREHENSIVE METABOLIC PANEL (09/18/2019 7:02 AM CDT) Sodium 140 137 - 147 MMOL/L [facility] MAIN LAB Potassium 4.8 3.5 - 5.1 MMOL/L [facility] MAIN LAB Chloride 110 98 - 110 MMOL/L [facility] MAIN LAB Glucose 77 70 - 100 MG/DL [facility] MAIN LAB Blood Urea 100 (H) 7 - 25 MG/DL [facility] MAIN LAB Nitrogen Creatinine 6.99 (H) 0.4 - 1.00 MG/DL [facility] MAIN LAB Calcium 9.5 8.5 - 10.6 MG/DL [facility] MAIN LAB Total Protein 6.0 6.0 - 8.0 G/DL [facility] MAIN LAB Total Bilirubin 0.2 (L) 0.3 - 1.2 MG/DL [facility] MAIN LAB Albumin 3.3 (L) 3.5 - 5.0 G/DL [facility] MAIN LAB Alk Phosphatase 105 25 - 110 U/L [facility] MAIN LAB AST (SGOT) 11 7 - 40 U/L [facility] MAIN LAB CO2 10 (L) 21 - 30 MMOL/L [facility] MAIN LAB ALT (SGPT) 11 7 - 56 U/L [facility] MAIN LAB Anion Gap 20 (H) 3 - 12 [facility] MAIN LAB eGFR Non 6 (L) >60 mL/min [facility] MAIN LAB Comment: Syrian The eGFR is not validated f or use in drug dosing adjustments. Continue to use estimated creatinine clearance per dosing reference text. Please contact the Clinical Pharmacist for questions. eGFR 7 (L) >60 mL/min [facility] MAIN LAB Syrian Comment: The eGFR is not validated for use in drug dosing adjustments. Continue to use estimated creatinine clearance per dosing reference text. Please contact the Clinical Pharmacist for questions. Specimen Blood Performing Organization Address [facility] one Number MAIN LAB [address] [place] [address] * CBC AND DIFF (09/18/2019 7:02 AM CDT) White Blood 7.4 4.5 - 11.0 K/UL KU MAIN LAB Cells RBC 2.82 (L) 4.0 - 5.0 M/UL [facility] MAIN LAB Hemoglobin 8.8 (L) 12.0 - 15.0 GM/DL [facility] MAIN LAB Hematocrit 25.9 (L) 36 - 45 % [facility] MAIN LAB MCV 91.8 80 - 100 FL [facility] MAIN LAB MCH 31.3 26 - 34 PG [facility] MAIN LAB MCHC 34.1 32.0 - 36.0 G/DL [facility] MAIN LAB RDW 12.9 11 - 15 % [facility] MAIN LAB Platelet Count 315 150 - 400 K/UL [facility] MAIN LAB MPV 6.3 (L) 7 - 11 FL [facility] MAIN LAB Neutrophils 75 41 - 77 % [facility] MAIN LAB Lymphocytes 8 (L) 24 - 44 % [facility] MAIN LAB Monocytes 16 (H) 4 - 12 % [facility] MAIN LAB Eosinophils 1 0 - 5 % [facility] MAIN LAB Basophils 0 0 - 2 % [facility] MAIN LAB Absolute 5.56 1.8 - 7.0 K/UL [facility] MAIN LAB Neutrophil Count Absolute Lymph 0.60 (L) 1.0 - 4.8 K/UL [facility] MAIN LAB Count Absolute 1.18 (H) 0 - 0.80 K/UL [facility] MAIN LAB Monocyte Count Absolute 0.04 0 - 0.45 K/UL [facility] MAIN LAB Eosinophil Count Absolute 0.03 0 - 0.20 K/UL [facility] MAIN LAB Basophil Count Specimen Blood Performing Organization Address [facility] Ph one Number MAIN LAB [address] [place] [address] * BLOOD GASES, PERIPHERAL VENOUS (09/18/2019 1:30 AM CDT) pH-Venous 7.21 (L) 7.30 - 7.40 K[facility] MAIN LAB PCO2-Venous 34 (L) 36 - 50 MMHG [facility] MAIN LAB PO2-Venous 47 33 - 48 MMHG [facility] MAIN LAB Base 13.6 MMOL/L MAIN LAB Deficit-Venous O2 Sat-Venous 75.4 (H) 55 - 71 % [facility] MAIN LAB Bicarbonate-REGGIE 13.6 MMOL/L [facility] MAIN LAB -Luis Fernando Specimen Blood, venous - Blood Performing Organization Address [facility] Ph one Number MAIN LAB [address] [place] [address] * SODIUM-URINE RANDOM (09/18/2019 1:30 AM CDT) Sodium, Random 53 MMOL/L [facility] MAIN LAB Specimen Urine - Urine Performing Organization Address [facility] Ph one Number MAIN LAB [address] [place] [address] * UREA NITROGEN-URINE RANDOM (09/18/2019 1:30 AM CDT) Urea Nitrogen 479 MG/DL MAIN LAB Specimen Urine - Urine Performing Organization Address [facility] one Number [facility] [address] [place] [address] * CREATININE-URINE RANDOM (09/18/2019 1:30 AM CDT) Creatinine, 97 MG/DL MAIN LAB Random Specimen Urine - Urine Performing Organization Address [facility] one Number [facility] [address] [place] [address] * COVID-19 (SARS-COV-2) PCR (09/18/2019 1:30 AM CDT) COVID-19 NASOPHARYNGEAL SWAB [facility] (SARS-CoV-2) PCR Source COVID-19 NOT DETECTED DN-NOT DETECTED [facility] (SARS-CoV-2) Comment: PCR This assay is designed [...] performance characteristics have been verified by the [facility]. Fact sheet for providers: https://www.fda.gov/media/2179 85/download Fact sheet for patients: https://www.fda.gov/media/5398 87/download Specimen Nasopharyngeal Swab Performing Organization Address [facility] one Number [facility] [address] [place] [address] * URINALYSIS, MICROSCOPIC (09/18/2019 1:30 AM CDT) WBCs,UA 10-20 0 - 2 /HPF [facility] RBCs,UA 2-10 0 - 3 /HPF [facility] MAIN LAB MucousUA TRACE [facility] MAIN LAB Squamous 0-2 0 - 5 [facility] MAIN LAB Epithelial Cells Specimen Urine - Urine Performing Organization Address [facility] Ph one Number MAIN LAB [address] [place] [address] * URINALYSIS DIPSTICK (09/18/2019 1:30 AM CDT) Color,UA YELLOW [facility] MAIN LAB Turbidity,UA CLEAR CLEAR-CLEAR [facility] MAIN LAB Specific 1.014 1.003 - 1.035 [facility] MAIN LAB [place]-Urine pH,UA 5.0 5.0 - 8.0 [facility] MAIN LAB Protein,UA 1+ (A) NEG-NEG MAIN LAB Glucose,UA NEG NEG-NEG [facility] MAIN LAB Ketones,UA NEG NEG-NEG [facility] MAIN LAB Bilirubin,UA NEG NEG-NEG MAIN LAB Blood,UA 2+ (A) NEG-NEG MAIN LAB Urobilinogen,UA NORMAL NORM-NORMAL [facility] MAIN LAB Nitrite,UA NEG NEG-NEG [facility] MAIN LAB Leukocytes,UA TRACE (A) NEG-NEG [facility] MAIN LAB Urine Ascorbic NEG NEG-NEG MAIN LAB Acid, UA Specimen Urine - Urine Performing Organization Address [facility] Ph one Number MAIN LAB [address] [place] [address] * PHOSPHORUS (09/18/2019 1:30 AM CDT) Phosphorus 6.5 (H) 2.0 - 4.5 MG/DL [facility] MAIN LAB Specimen Blood Performing Organization Address [facility] Ph one Number MAIN LAB [address] [place] [address] * MAGNESIUM (09/18/2019 1:30 AM CDT) Magnesium 2.3 1.6 - 2.6 mg/dL MAIN LAB Specimen Blood Performing Organization Address [facility] one Number MAIN LAB [address] [place] [address] * BASIC METABOLIC PANEL (09/18/2019 1:30 AM CDT) Sodium 141 137 - 147 MMOL/L [facility] MAIN LAB Potassium 5.6 (H) 3.5 - 5.1 MMOL/L [facility] MAIN LAB Chloride 109 98 - 110 MMOL/L MAIN LAB CO2 13 (L) 21 - 30 MMOL/L [facility] MAIN LAB Anion Gap 19 (H) 3 - 12 [facility] MAIN LAB Glucose 80 70 - 100 MG/DL [facility] MAIN LAB Blood Urea 109 (H) 7 - 25 MG/DL [facility] MAIN LAB Nitrogen Creatinine 7.32 (H) 0.4 - 1.00 MG/DL [facility] MAIN LAB Calcium 10.6 8.5 - 10.6 MG/DL [facility] MAIN LAB eGFR Non 6 (L) >60 mL/min [facility] MAIN LAB Comment: Syrian The eGFR is not validated f or use in drug dosing adjustments. Continue to use estimated creatinine clearance per dosing reference text. Please contact the Clinical Pharmacist for questions. eGFR 7 (L) >60 mL/min [facility] MAIN LAB Syrian Comment: The eGFR is not validated for use in drug dosing adjustments. Continue to use estimated creatinine clearance per dosing reference text. Please contact the Clinical Pharmacist for questions. Specimen Blood Performing Organization Address City/State/Zipcode Ph one Number [facility] MAIN LAB [address] [place] [address] * PROCEDURE RECORD-SCAN (09/17/2019 12:00 AM CDT) [...] available. Ordered by an unspecified provider. * GENERAL RAD CHEST EXTERNAL IMAGING (09/17/2019 12:00 AM CDT) Specimen Narrative Performed At This order has been auto finalized and does not contain a result. documented in this encounter Visit Diagnoses Diagnosis ILD (interstitial lung disease) (HCC) Postinflammatory pulmonary fibrosis Pancreatic duct stones Other specified disease of pancreas Abnormal CT of the chest Nonspecific (abnormal) findings on radi ological and other examination of other intrathoracic organs Mediastinal lymphadenopathy Enlargement of lymph nodes Diffuse large B-cell lymphoma of lymph nodes of multiple regions (HCC) Other iron deficiency anemia Acute renal failure with other specifie d pathological lesion in kidney (HCC) Hyperkalemia Hyperpotassemia High anion gap metabolic acidosis Acidosis UTI (urinary tract infection) Urinary tract infection, site not speci fied Physical debility Debility, unspecified Anemia Anemia, unspecified Abnormal abdominal CT scan Nonspecific (abnormal) findings on radi ological and other examination of abdominal area, including retroperitoneum Elevated CA 19-9 level Other abnormal tumor markers documented in this encounter Administered Medications Action Date Dose Rate Site Medication Order MAR Action 10/06/2019 11:30 AM CDT 650 mg acetaminophen (TYLENOL) tablet 650 mg Given 650 mg, Oral, ONCE, 1 dose, 10/06/19 at 1130, TOTAL ACETAMINOPHEN DOSE NOT T O EXCEED 4GM DAILY, 10/11/2019 9:24 AM CDT 200 mg acyclovir (ZOVIRAX) capsule 200 mg Given 200 mg, Oral, TWICE DAILY, First dose o n 10/05/19 at 1145, Until Discontinued 200 mg Given 10/10/2019 8:25 PM CDT 200 mg Given 10/10/2019 8:52 AM CDT 10/04/2019 2:07 PM CDT 100 mg allopurinoL (ZYLOPRIM) tablet 100 mg Given 100 mg, Oral, DAILY, First dose on Mon10/02/19 at 1615, Until Discontinued 100 mg Given 10/03/2019 4:47 PM CDT 100 mg Given 10/02/2019 4:53 PM CDT 10/11/2019 9:24 AM CDT 100 mg allopurinoL (ZYLOPRIM) tablet 100 mg Given 100 mg, Oral, DAILY, First dose on Mon10/06/19 at 0900, Until Discontinued 100 mg Given 10/10/2019 8:52 AM CDT 100 mg Given 10/09/2019 8:21 AM CDT 10/05/2019 12:08 PM CDT 300 mg allopurinoL (ZYLOPRIM) tablet 300 mg Given 300 mg, Oral, ONCE, 1 dose, 10/05/19 at 1115 10/06/2019 2:34 PM CDT amitriptyline/gabapentin/emu oil(#) Given 4/4/10 % topical cream Topical, EVERY 8 HOURS, First dose on Mon09/18/19 at 1400, Until Discontinued, Apply to right hip, Given 10/06/2019 8:29 AM CDT Given 10/05/2019 9:53 PM CDT 10/11/2019 9:24 AM CDT 10 mg amLODIPine (NORVASC) tablet 10 mg Given 10 mg, Oral, DAILY, First dose (after last modification) on 09/30/19 at 0900, Until Discontinued, NURSING: Please educate patient and document: Do not give with grapefruit juice., 10 mg Given 10/10/2019 8:52 AM CDT 10 mg Given 10/09/2019 8:21 AM CDT 09/27/2019 9:47 AM CDT 2.5 mg amLODIPine (NORVASC) tablet 2.5 mg Given 2.5 mg, Oral, DAILY, First dose on [place] 09/26/19 at 1315, Until Discontinued, NURSING: Please educate patient and document: Do not give with grapefruit juice., 2.5 mg Given 09/26/2019 1:04 PM CDT 09/27/2019 2:37 PM CDT 2.5 mg amLODIPine (NORVASC) tablet 2.5 mg Given 2.5 mg, Oral, ONCE, 1 dose, 09/27/19 at 1500, NURSING: Please educate patien t and document: Do not give with grapefruit juice., 09/29/2019 8:14 AM CDT 5 mg amLODIPine (NORVASC) tablet 5 mg Given 5 mg, Oral, DAILY, First dose (after last modification) on 09/28/19 at 0900, Until Discontinued, NURSING: Please educate patient and document: Do not give with grapefruit juice., 5 mg Given 09/28/2019 8:37 AM CDT 10/01/2019 5:46 PM CDT 6 mL anticoagulant sodium citrate solution Given 1-6 mL 1-6 mL, Intra-catheter, PRN IN IP DIALYSIS, 1 dose, Starting 10/01/19 at 0519, Until Tu10/01/19 at 1746, Other..., For use to pack vascular access, Administer volume appropriate t o catheter lumen size. Only health care social worker can release and administer. NOTE: This is a HIGH ALERT Medication., Dialysis/Apheresis Procedure 10/01/2019 12:50 PM CDT 3.2 mL anticoagulant sodium citrate solution Given 1-6 mL 1-6 mL, Intra-catheter, ONCE, 1 dose, 10/01/19 at 1345, NOTE: This is a HIGH ALERT Medication., 10/02/2019 4:12 PM CDT 3.2 mL anticoagulant sodium citrate solution Given 1-6 mL 1-6 mL, Intra-catheter, PRN IN IP DIALYSIS, 1 dose, Starting 10/02/19 at 0539, Until 10/02/19 at 1612, Other..., For use to pack vascular access, Administer volume appropriate t o catheter lumen size. Only health care social worker can release and administer. NOTE: This is a HIGH ALERT Medication., Dialysis/Apheresis Procedure 10/03/2019 10:58 AM CDT 3.2 mL anticoagulant sodium citrate solution Given 1-6 mL 1-6 mL, Intra-catheter, PRN IN IP DIALYSIS, 1 dose, Starting [place] 10/03/19 at 0540, Until [place] 10/03/19 at 1058, Other..., For use to pack vascular access, Administer volume appropriate t o catheter lumen size. Only health care social worker can release and administer. NOTE: This is a HIGH ALERT Medication., Dialysis/Apheresis Procedure 10/05/2019 9:15 AM CDT 3.2 mL anticoagulant sodium citrate solution Given 1-6 mL 1-6 mL, Intra-catheter, PRN IN IP DIALYSIS, 1 dose, Starting 10/05/19 at 0524, Until 10/05/19 at 0915, Other..., For use to pack vascular access, Administer volume appropriate t o catheter lumen size. Only health care social worker can release and administer. NOTE: This is a HIGH ALERT Medication., Dialysis/Apheresis Procedure 10/10/2019 1:34 PM CDT 6 mL anticoagulant sodium citrate solution Given 1-6 mL 1-6 mL, Intra-catheter, PRN IN IP DIALYSIS, 1 dose, Starting Mon10/10/19 at 1004, Until Mon10/10/19 at 1334, Other..., For use to pack vascular access, Administer volume appropriate t o catheter lumen size. Only health care social worker can release and administer. NOTE: This is a HIGH ALERT Medication., Dialysis/Apheresis Procedure 09/19/2019 11:27 PM CDT 1,000 mg calcium carbonate (TUMS) chew tablet Given 500-1,000 mg 500-1,000 mg, Oral, EVERY 6 HOURS PRN, Starting Mon09/18/19 at 2042, Until Mon10/11/19 at 1505, Indigestion/Heartburn, Each tab delivers 200mg elemental calcium., 1,000 mg Given 09/19/2019 11:27 AM CDT 1,000 mg Given 09/18/2019 9:59 PM CDT 09/26/2019 1:04 PM CDT 1 g cefTRIAXone (ROCEPHIN) IVP 1 g Given 1 g, Intravenous, EVERY 24 HOURS, 7 doses, First dose on Mon09/20/19 at 1215, Last dose on Mon09/26/19 at 1215, INSTR: IV PUSH -- RECONSTITUTE EACH 1 G M WITH 10 MLS 0.9% NACL , 1 g Given 09/25/2019 12:53 PM CDT 1 g Given 09/24/2019 1:07 PM CDT 09/24/2019 9:17 AM CDT 1,000 mcg Abdomina l Tissue cyanocobalamin (RUBRAMIN) injection Given 1,000 mcg 1,000 mcg, Intramuscular, DAILY, 7 doses, First dose on Mon09/18/19 at 1315 , Last dose on Mon09/24/19 at 0900 1,000 mcg Abdominal Tissue Given 09/23/2019 8:07 AM CDT 1,000 mcg Deltoid, Left Given 09/22/2019 8:30 AM CDT 10/11/2019 9:24 AM CDT 1,000 mcg cyanocobalamin (VITAMIN B-12) tablet Given 1,000 mcg 1,000 mcg, Oral, DAILY, First dose on Mon09/25/19 at 1415, Until Discontinued 1,000 mcg Given 10/10/2019 8:51 AM CDT 1,000 mcg Given 10/09/2019 8:22 AM CDT 10/05/2019 5:03 PM CDT 680 mg 568 mL/hr cyclophosphamide (CYTOXAN) 680 mg in Given - New sodium chloride 0.9% (NS) 284 mL IVPB Bag 680 mg (rounded from 667.5 mg = 375 mg/m2 1.78 m2 Treatment plan recorded BSA), Intravenous, 284 mL, Administer over 0. 5 Hours, ONCE, 1 dose, 10/05/19 at 1530, NOTE: This is a HIGH ALERT Medication. SPECIAL TUBING REQUIRED , 10/10/2019 12:01 PM CDT 100 mg cytarabine PF (CYTOSAR) injection (IT) Given 100 mg 100 mg, Intrathecal, ONCE, 1 dose, [facility] 10/10/19 at 0900, To be administered in IR NURSING: To be administered by Chemotherapy Competency-validated nurse . NOTE: This is a HIGH ALERT Medication. SPECIAL TUBING REQUIRED , 09/18/2019 9:18 AM CDT 100 mL/hr dextrose 5% (D5W) with sodium Given bicarbonate 150 mEq 1,150 mL IV infusio n 1,150 mL, Intravenous, at 100 mL/hr, ONCE, 1 dose, Mon09/18/19 at 0900, For 1.15 liters only, 09/19/2019 10:35 AM CDT 50 mL/hr dextrose 5% (D5W) with sodium Dose/Rate bicarbonate 150 mEq 1,150 mL IV infusion Change 1,150 mL, Intravenous, at 50 mL/hr, CONTINUOUS, Starting Mon09/18/19 at 1845 , Until Mon09/20/19 at 0817 100 mL/hr Given - New Bag 09/19/2019 9:01 AM CDT 100 mL/hr Given - New Bag 09/18/2019 9:59 PM CDT 10/06/2019 11:30 AM CDT 25 mg diphenhydrAMINE (BENADRYL) capsule 25 mg Given 25 mg, Oral, ONCE, 1 dose, 10/06/19 at 1130 10/05/2019 4:38 PM CDT 89 mg DOXOrubicin (ADRIAMYCIN) injection 89 mg Given 89 mg (50 mg/m2 1.78 m2 Treatment plan recorded BSA), Intravenous, ONCE, 1 dose, 10/05/19 at 1500, Give IV Push over 5 minutes. PROTECT FROM LIGHT NURSING: To be administered by Chemotherapy Competency-validated nurse. NOTE: This is a HIGH ALERT Medication. SPECIAL TUBING REQUIRED , 10/06/2019 12:18 PM CDT 20 mg famotidine (PEPCID) tablet 20 mg Given 20 mg, Oral, ONCE, 1 dose, 10/06/19 at 1130, Pre-Medication for Rituximab, 09/30/2019 11:11 AM CDT 50 mcg fentaNYL citrate PF (SUBLIMAZE) Given injection INTRA-PROCEDURE MED, Starting Mon09/30/19 at 1111, Until Mon09/30/19 at 1111 10/01/2019 12:46 PM CDT 25 mcg fentaNYL citrate PF (SUBLIMAZE) Given injection INTRA-PROCEDURE MED, Starting Mon10/01/19 at 1246, Until Mon10/01/19 at 1246 10/04/2019 9:41 AM CDT 25 mcg fentaNYL citrate PF (SUBLIMAZE) Given injection INTRA-PROCEDURE MED, Starting Mon10/04/19 at 0918, Until Mon10/04/19 at 0941 50 mcg Given 10/04/2019 9:35 AM CDT 50 mcg Given 10/04/2019 9:18 AM CDT 10/11/2019 11:37 AM CDT 300 mcg Abdomina l Tissue filgrastim-sndz (ZARXIO) inj syringe 300 Given mcg 300 mcg, Subcutaneous, EVERY 24 HOURS, First dose on Mon10/08/19 at 1200, Unti l Discontinued 300 mcg Abdominal Tissue Given 10/10/2019 11:22 AM CDT 300 mcg Abdominal Tissue Given 10/09/2019 11:40 AM CDT 10/11/2019 10:27 AM CDT 200 mg fluconazole (DIFLUCAN) tablet 200 mg Given 200 mg, Oral, ONCE, 1 dose, Mon10/11/19 at 1030 10/11/2019 9:24 AM CDT 1 mg folic acid (FOLVITE) tablet 1 mg Given 1 mg, Oral, DAILY, First dose on Mon09/18/19 at 1330, Until Discontinued 1 mg Given 10/10/2019 8:51 AM CDT 1 mg Given 10/09/2019 8:21 AM CDT 10/02/2019 12:35 PM CDT 40 mg furosemide (LASIX) injection 40 mg Given 40 mg, 4 mL, Intravenous, ONCE, 1 dose, Mon10/02/19 at 1230, PROTECT FROM LIGHT , 10/10/2019 8:30 PM CDT 100 mg guaiFENesin (ROBITUSSIN) oral solution Given 100 mg 100 mg, Oral, EVERY 4 HOURS PRN, Starting [place] 10/03/19 at 2125, Until Mon10/11/19 at 1505, Congestion 100 mg Given 10/10/2019 1:30 AM CDT 100 mg Given 10/08/2019 8:24 PM CDT 10/11/2019 10:27 AM CDT 5,000 Units Abdomina l Tissue heparin (porcine) PF syringe 5,000 Units Given 5,000 Units, Subcutaneous, EVERY 8 HOURS, First dose on Mon09/18/19 at 0145 , Until Discontinued, NOTE: This is a HIG H ALERT Medication., 5,000 Units Abdominal Tissue Given 10/11/2019 2:32 AM CDT 5,000 Units Abdominal Tissue Given 10/10/2019 7:20 PM CDT 10/11/2019 11:39 AM CDT 500 Units heparin lock flush PF syringe 500 Units Given 500 Units, Flush, ONCE, 1 dose, Mon10/11/19 at 1130, NOTE: This is a HIGH ALERT Medication., HYDROCODONE-ACETAMINOPHEN 5-325 MG PO TAB (Cabinet Override) NOW, 1 dose, 10/05/19 at 0915, Created by cabinet override NOTE: This is a HIGH ALERT Medication., Created by cabinet override, 10/05/2019 9:56 PM CDT 1 tablet HYDROcodone/acetaminophen (NORCO) 5/325 Given mg tablet 1 tablet 1 tablet, Oral, EVERY 6 HOURS PRN, Starting Mon09/18/19 at 0957, Until Mon10/07/19 at 1011, Pain PO, TOTAL ACETAMINOPHEN DOSE NOT TO EXCEED 4GM DAILY NOTE: This is a HIGH ALERT Medication., 1 tablet Given 10/05/2019 9:15 AM CDT 1 tablet Given 10/04/2019 9:36 PM CDT 09/30/2019 12:51 PM CDT 10 mg labetaloL (NORMODYNE) injection 10 mg Given 10 mg, Intravenous, EVERY 6 HOURS PRN, Starting Mon09/29/19 at 1120, Until Mon10/06/19 at 0930, Blood Pressure..., Systolic Blood Pressure..., for systoli c BP > 140, Hold for heart rate < 50 bpm, systolic BP < 90 or diastolic BP < 50, 10 mg Given 09/29/2019 2:35 PM CDT 09/18/2019 4:06 AM CDT 2,000 mL 125 mL/hr lactated ringers infusion Given - New 2,000 mL, 2,000 mL, Intravenous, at 125 Bag mL/hr, ONCE, 1 dose, Mon09/18/19 at 0430 09/29/2019 6:00 AM CDT 50 mL/hr lactated ringers infusion Given - New 1,000 mL, Intravenous, at 50 mL/hr, Bag CONTINUOUS, Starting Mon09/27/19 at 1415, Until Mon09/29/19 at 1414, Pre-Op 50 mL/hr Given - New Bag 09/28/2019 6:48 PM CDT 50 mL/hr Given - New Bag 09/27/2019 9:33 PM CDT 10/10/2019 5:05 PM CDT 750 mg levoFLOXacin (LEVAQUIN) tablet 750 mg Given 750 mg, Oral, ONCE, 1 dose, [facility] 10/10/19 at 1500, After dialysis, 10/10/2019 11:22 AM CDT 0.5 mg LORazepam (ATIVAN) tablet 0.5 mg Given 0.5 mg, Oral, ONCE, 1 dose, [facility] 10/10/19 at 0900, Pre-Med for Intrathecal, 10/07/2019 10:39 AM CDT 0.5 mg LORazepam (ATIVAN) tablet 0.5 mg Given 0.5 mg, Oral, ONCE, 1 dose, Mon10/07/19 at 0830, Pre-Med for Intrathecal, 10/09/2019 8:21 AM CDT 0.5 mg LORazepam (ATIVAN) tablet 0.5 mg Given 0.5 mg, Oral, ONCE, 1 dose, Mon10/09/19 at 0815 10/11/2019 2:31 AM CDT 0.5 mg LORazepam (ATIVAN) tablet 0.5-1 mg Given 0.5-1 mg, Oral, EVERY 6 HOURS PRN, Starting Mon10/11/19 at 0221, Until Mon10/11/19 at 1505, Anxiety PO 10/10/2019 8:30 PM CDT 5 mg melatonin tablet 5 mg Given 5 mg, Oral, AT BEDTIME PRN, Starting 09/24/19 at 2025, Until Mon10/11/19 at 1505, Insomnia 5 mg Given 10/10/2019 1:30 AM CDT 5 mg Given 10/08/2019 8:24 PM CDT 10/07/2019 1:27 PM CDT 12 mg methotrexate PF 12 mg in sodium chloride Given PF 0.9% 5 mL IT syringe 12 mg, 5 mL, Intrathecal, ONCE, 1 dose, Mon10/07/19 at 0900, To be administered in IR INTRATHECAL NOTE: This is a HIGH ALERT Medication., 10/04/2019 9:12 AM CDT 1 mg midazolam (VERSED) injection 0.5-1 mg Given 0.5-1 mg, Intravenous, ONCE, 1 dose, Fr i 10/04/19 at 0915, Administer prior to procedure for anxiolytic, Pre-Procedure (IR) 09/30/2019 10:46 AM CDT 1 mg midazolam (VERSED) injection 1 mg Given 1 mg, Intravenous, ONCE, 1 dose, Mon09/30/19 at 1015, For pre-procedural anxiolysis., Intra-procedure (IR) 10/01/2019 12:20 PM CDT 1 mg midazolam (VERSED) injection 1 mg Given 1 mg, Intravenous, ONCE, 1 dose, Mon10/01/19 at 1230, For pre-procedural anxiolysis., Intra-procedure (IR) 10/01/2019 12:42 PM CDT 0.5 mg midazolam (VERSED) injection Given INTRA-PROCEDURE MED, Starting Mon10/01/19 at 1242, Until Mon10/01/19 at 1242 10/04/2019 9:39 AM CDT 0.5 mg midazolam (VERSED) injection Given INTRA-PROCEDURE MED, Starting Mon10/04/19 at 0920, Until Mon10/04/19 at 0939 1 mg Given 10/04/2019 9:20 AM CDT 10/11/2019 10:27 AM CDT mineral oil/hydrophilic petrolatum Given (AQUAPHOR, DERMAPHOR) topical ointment Topical, DAILY, First dose on Mon10/02/19 at 1530, Until Discontinued, Apply to buttocks, Given 10/10/2019 8:52 AM CDT Given 10/09/2019 8:22 AM CDT 10/05/2019 2:16 PM CDT 16 mg ondansetron (ZOFRAN) tablet 16 mg Given 16 mg, Oral, ONCE, 1 dose, 10/05/19 at 1430 09/19/2019 2:11 PM CDT 1 Diluted mL perflutren lipid microspheres (DEFINITY) Given injection 1-20 Diluted mL 1-20 Diluted mL, Intravenous, ONCE PRN, 1 dose, Starting [place] 09/19/19 at 1250, Until [place] 09/19/19 at 1411, For Procedure , A shuttle operator may only administer Definity through a saline lock. If IV i s in use or a port, PICC, or central line is being used a nurse must administer. NOTE: This is a HIGH ALERT Medication., MAC Procedure Area Only - Medications 09/29/2019 8:14 AM CDT 17 g polyethylene glycol 3350 (MIRALAX) Given packet 17 g 17 g (1 packet), Oral, DAILY, First dos e on Mon09/20/19 at 0930, Until Discontinued, hold for loose stools 8.5 GRAMS = 0.5 PACKET 17 GRAMS = 1 PACKET 34 GRAMS = 2 PACKETS, 17 g Given 09/28/2019 8:37 AM CDT 17 g Given 09/26/2019 9:13 AM CDT 10/10/2019 8:54 AM CDT 34 g polyethylene glycol 3350 (MIRALAX) Given packet 34 g 34 g (2 packet), Oral, DAILY, First dos e (after last modification) on Mon 0 at 0900, Until Discontinued, hold for loose stools 8.5 GRAMS = 0.5 PACKET 17 GRAMS = 1 PACKET 34 GRAMS = 2 PACKETS, 10/09/2019 8:21 AM CDT 100 mg predniSONE (DELTASONE) tablet 100 mg Given 100 mg, Oral, EVERY 24 HOURS, 5 doses, First dose on Mon10/05/19 at 1330, Last dose on Mon10/09/19 at 0900, Take with food., 100 mg Given 10/08/2019 9:24 AM CDT 100 mg Given 10/07/2019 6:58 PM CDT 10/09/2019 8:26 PM CDT 3 mg 100 mL/hr rasburicase (ELITEK) 3 mg in sodium Given - New chloride 0.9% (NS) 50 mL IVPB Bag 3 mg, Intravenous, 50 mL, Administer over 30 Minutes, ONCE, 1 dose, [facility] 10/09/19 at 1830, See Formulary link for Rasburicase Uric Acid Lab Specimen Handling Instructions, 10/06/2019 12:32 PM CDT 650 mg rituximab-pvvr (RUXIENCE) 650 mg in Given - New sodium chloride 0.9% (NS) 650 mL IVPB Bag 650 mg (rounded from 667.5 mg = 375 mg/m2 1.78 m2 Treatment plan recorded BSA), 650 mL, Intravenous, ONCE, 1 dose, [facility] 10/06/19 at 1200, Start Infusion at 50 mg/hr, do not titrate Do not administe r as IV bolus or push. NOTE: This is a HIGH ALERT Medication, 10/09/2019 8:29 PM CDT 1 tablet senna (SENOKOT) tablet 2 tablet Given 2 tablet, Oral, AT BEDTIME DAILY, First dose on Mon09/20/19 at 2100, Until Discontinued, Hold for loose stools, 2 tablets Given 10/07/2019 9:25 PM CDT 2 tablets Given 10/02/2019 9:21 PM CDT 10/04/2019 9:26 PM CDT 80 mg simethicone (MYLICON) chew tablet 80 mg Given 80 mg, Oral, EVERY 6 HOURS PRN, Starting Mon09/20/19 at 0158, Until Mon10/11/19 at 1505, Flatulence 80 mg Given 10/04/2019 4:57 AM CDT 80 mg Given 09/24/2019 10:05 PM CDT 10/11/2019 9:24 AM CDT 650 mg sodium bicarbonate tablet 650 mg Given 650 mg, Oral, TWICE DAILY, First dose o n Mon09/27/19 at 0915, Until Discontinued , Each 325mg tab delivers 3.8 mEq Na (650mg tab = 7.6 mEq Na), 650 mg Given 10/10/2019 8:25 PM CDT 650 mg Given 10/10/2019 8:51 AM CDT 09/21/2019 11:09 AM CDT 1,000 mL 100 mL/hr sodium chloride 0.45 % infusion Given - New 1,000 mL, 1,000 mL, Intravenous, at 100 Bag mL/hr, ONCE, 1 dose, 09/21/19 at 111 5 09/23/2019 11:14 AM CDT 1,000 mL 100 mL/hr sodium chloride 0.45 % infusion Given - New 1,000 mL, 1,000 mL, Intravenous, at 100 Bag mL/hr, ONCE, 1 dose, 09/23/19 at 103 0 09/27/2019 9:48 AM CDT 100 mL/hr sodium chloride 0.45% (1/2NS) with Given - New sodium bicarbonate 100 mEq 1,100 mL IV Bag infusion 1,100 mL, Intravenous, at 100 mL/hr, CONTINUOUS, Starting Mon09/27/19 at 0815, Until Mon09/27/19 at 1914 09/24/2019 1:07 PM CDT 1,000 mL 100 mL/hr sodium chloride 0.9 % infusion Given - New 1,000 mL, 1,000 mL, Intravenous, at 100 Bag mL/hr, ONCE, 1 dose, Mon09/24/19 at 130 0 10/01/2019 4:40 PM CDT 300 mL 999 mL/hr sodium chloride 0.9 % infusion Given - New 1,000 mL, 300 mL, Intravenous, at 999 Bag mL/hr, PRN IN IP DIALYSIS, 1 dose, Starting Mon10/01/19 at 0519, Until Mon10/01/19 at 1640, Other..., Prime Rinse, For Prime/Rinseback May run in at dialysis machine's set Blood Flow Rate. Only health care social worker can release and administer., Dialysis/Apheresis Procedure 10/02/2019 1:45 PM CDT 300 mL 999 mL/hr sodium chloride 0.9 % infusion Given - New 1,000 mL, 300 mL, Intravenous, at 999 Bag mL/hr, PRN IN IP DIALYSIS, 1 dose, Starting Mon10/02/19 at 0539, Until Mon10/02/19 at 1345, Other..., Prime Rinse, For Prime/Rinseback May run in at dialysis machine's set Blood Flow Rate. Only health care social worker can release and administer., Dialysis/Apheresis Procedure 10/03/2019 7:50 AM CDT 300 mL 999 mL/hr sodium chloride 0.9 % infusion Given - New 1,000 mL, 300 mL, Intravenous, at 999 Bag mL/hr, PRN IN IP DIALYSIS, 1 dose, Starting [place] 10/03/19 at 0540, Until [place] 10/03/19 at 0750, Other..., Prime Rinse, For Prime/Rinseback May run in at dialysis machine's set Blood Flow Rate. Only health care social worker can release and administer., Dialysis/Apheresis Procedure 10/05/2019 9:16 AM CDT 300 mL 999 mL/hr sodium chloride 0.9 % infusion Given - New 1,000 mL, 300 mL, Intravenous, at 999 Bag mL/hr, PRN IN IP DIALYSIS, 1 dose, Starting 10/05/19 at 0524, Until 10/05/19 at 0916, Other..., Prime Rinse, For Prime/Rinseback May run in at dialysis machine's set Blood Flow Rate. Only health care social worker can release and administer., Dialysis/Apheresis Procedure 10/07/2019 9:24 PM CDT 50 mL/hr sodium chloride 0.9 % infusion Given - New 1,000 mL, Intravenous, at 50 mL/hr, Bag CONTINUOUS, Starting 10/05/19 at 1115, Until 10/08/19 at 0955 50 mL/hr Given - New Bag 10/05/2019 9:54 PM CDT 50 mL/hr Given - New Bag 10/05/2019 2:26 PM CDT 10/10/2019 1:34 PM CDT 300 mL 999 mL/hr sodium chloride 0.9 % infusion Given - New 1,000 mL, 300 mL, Intravenous, at 999 Bag mL/hr, PRN IN IP DIALYSIS, 1 dose, Starting [place] 10/10/19 at 1004, Until [place] 10/10/19 at 1334, Other..., Prime Rinse, For Prime/Rinseback May run in at dialysis machine's set Blood Flow Rate. Only health care social worker can release and administer., Dialysis/Apheresis Procedure 10/06/2019 11:30 AM CDT sodium chloride 0.9% irrigation bottle Given Swish & Spit, NEEDED, Starting 10/06/19 at 1206, Until 7/31/20 at 1505, Other..., For mucositis SODIUM CITRATE 4 % (3 ML) IK SYRG (Cabinet Override) NOW, 1 dose, Mon10/01/19 at 1745, Created by cabinet override NOTE: This is a HIGH ALERT Medication., Created by valariet abhishekide, 10/05/2019 4:50 PM CDT 2 mg 300 mL/hr vinCRIStine (ONCOVIN) 2 mg in sodium Given - New chloride 0.9% (NS) 50 mL IVPB Bag 2 mg, Intravenous, 50 mL, Administer over 10 Minutes, ONCE, 1 dose, 10/05/19 at 1515, NURSING: To be administered by Chemotherapy Competency-validated nurse. NOTE: This is a HIGH ALERT Medication. SPECIAL TUBING REQUIRED FATAL IF GIVEN INTRATHECALLY, 10/03/2019 4:49 PM CDT vitamin A & D topical ointment Given Topical, NEEDED, Starting Mon 0 at 0106, Until Mon10/11/19 at 1505, Other..., wound, Apply to wound as per recs., Given 10/02/2019 10:27 PM CDT 42.5 g Given 10/01/2019 3:15 AM CDT 10/11/2019 9:24 AM CDT 1 tablet vitamins, multi B, C, Zn & folate Given (Renal) (NEPHPLEX RX) tablet 1 tablet 1 tablet, Oral, DAILY, First dose on 10/01/19 at 1545, Until Discontinued 1 tablet Given 10/10/2019 8:51 AM CDT 1 tablet Given 10/09/2019 8:22 AM CDT documented in this encounter
[2019-10-16 12:49] LABS: MEAN CORPUSCULAR HEMOGLOBIN 30 PG (25-34); MEAN CORPUSCULAR HGB CONC 34 G/DL (32-36); MEAN CORPUSCULAR VOLUME 90 FL (80-99); RED CELL DISTRIBUTION WIDTH 12.7 % (10.0-14.5)
--- OUTSIDE RECORDS SUMMARY | 2019-10-16 12:50 | XMS REPORT | Encounter Summary ---
Author Author [facility] Organization [facility] Address Unknown Phone Unavailable Care Team Providers Care Furnace Tender Name Role Phone No Pcp, Na PCP Unavailable Reason for Visit * Auth/Cert Referred By Contact Referred To Contact Status Reason Specialty Diagnoses / Procedures Diagnoses Acute renal failure (ARF) (HCC) acute renal failure Encounter Details Care Team Description Date Type Department Greg Stahl MD [address] [place] [address] 10/03/2019 [facility] [address] [address] Social History Date Tobacco Use Types Packs/Day [...] / COVID-19? documented as of this encounter Functional Status Date of Assessment Functional Status Response 09/19/2019 Does the patient have a hearing impairment: No documented as of this encounter Medications at Time of Discharge [...] tablet by (NEPHPLEX RX) mouth daily. 1-60-300-12.5 tl-hq-vdl-mg tab 10/11/2019 calcium carbonate (TUMS) Chew 0 500 mg (200 mg elemental 500-1,000 mg calcium) chewable tablet by mouth every 6 hours as needed. 10/11/2019 enalapril (VASOTEC) 10 mg Take 5 mg by 0 tablet mouth daily. 10/11/2019 10/11/2019 filgrastim-sndz (ZARXIO) Inject 0.5 mL 0 300 mcg/0.5 mL syrg inj under the syringe skin every 24 hours. 10/11/2019 hydroCHLOROthiazide Take 25 mg by 0 (HYDRODIURIL) 25 mg mouth every tablet morning. 10/11/2019 HYDROcodone/acetaminophen Take 1 tablet 0 (NORCO) 10/325 mg tablet by mouth every 6 hours as needed for Pain 10/11/2019 10/11/2019 LORazepam (ATIVAN) 0.5 mg Take one 12 tablet 0 tablet tablet by mouth every 6 hours as needed. 10/11/2019 potassium chloride SR Take 10 mEq 0 (K-DUR) 10 mEq tablet by mouth twice daily. Take with a meal and a full glass of water. documented as of this encounter Plan of Treatment Not on filedocumented as of this encounter Goals Goal Patient Associated Recent Progress Patient-Stat Aut hor Goal Type Problems ed? GOAL General No Ale Choudhary, RN Note: Get back on my feet documented as of this encounter Procedures Comments Procedure Name Priority Date/Time Associated Diag nosis NM PET SCAN WHOLEBODY Routine 10/03/2019 (HEAD-TOES) 4:39 PM CDT documented in this encounter Visit Diagnoses Not on filedocumented in this encounter Administered Medications Action Date Dose Rate Site Medication Order MAR Action 10/03/2019 2:45 PM CDT 10.7 millicuries RP DX F-18 FDG injection 10 millicurie Given 10 millicurie, Intravenous, ONCE, 1 dose, [place] 10/03/19 at 1445 documented in this encounter
--- OUTSIDE RECORDS SUMMARY | 2019-10-16 12:50 | XMS REPORT | Encounter Summary ---
Author Author [facility] Organization [facility] Address Unknown Phone Unavailable Care Team Providers Care Cold Press Loader Name Role Phone No Pcp, Na PCP Unavailable Encounter Details Care Team Description Date Type Department 09/27/2019 Travel Social History Date Tobacco Use Types Packs/Day Years Used Quit: 09/19/2007 Former Smoker Comments: quit >10 years ago Drinks/Week oz/Week Comments Alcohol Use Not Currently Sex Assigned at Date Recorded Not on file Industry Job Start Date Occupation Not on file Not on file Not on file Travel End Travel History Travel Start No recent travel history available. Date Recorded COVID-19 Exposure Response 09/27/2019 3:09 PM CDT In the last month, have you been in contact with No / Unsure someone who was confirmed or suspected to have Coronavirus / COVID-19? documented as of this encounter Functional Status Date of Assessment Functional Status Response 09/19/2019 Does the patient have a hearing impairment: No documented as of this encounter Plan of Treatment Not on filedocumented as of this encounter Goals Goal Patient Associated Recent Progress Patient-Stat Aut hor Goal Type Problems ed? GOAL General No Ale Choudhary, RN Note: Get back on my feet documented as of this encounter Visit Diagnoses Not on filedocumented in this encounter
--- OUTSIDE RECORDS SUMMARY | 2019-10-16 12:50 | XMS REPORT | Encounter Summary ---
Author Author [facility] Organization [facility] Address Unknown Phone Unavailable Care Team Providers Care Quotation Checker Name Role Phone No Pcp, Na PCP Unavailable Encounter Details Care Team Description Date Type Department Luisito Baeza MBBS [address] [place] [address] Atrophy, pancreas (Primary Dx) 10/09/2019 Prep for Case XDD INT [facility] Level 4B [address] [place] [address] Social History Date Tobacco Use Types [...] documented as of this encounter Visit Diagnoses Diagnosis Atrophy, pancreas Other specified disease of pancreas documented in this encounter
--- OUTSIDE RECORDS SUMMARY | 2019-10-16 12:50 | XMS REPORT | Encounter Summary ---
Author Author [facility] Organization [facility] Address Unknown Phone Unavailable Care Team Providers Care Outreach Clinician Name Role Phone No Pcp, Na PCP Unavailable Encounter Details Care Team Description Date Type Department 10/01/2019 Travel Social History Date Tobacco Use Types [...]
--- OUTSIDE RECORDS SUMMARY | 2019-10-16 12:50 | XMS REPORT | Encounter Summary ---
Author Author [facility] Organization [facility] Address Unknown Phone Unavailable Care Team Providers Care Linoleum Floor Installer Name Role Phone No Pcp, Na PCP Unavailable Reason for Visit * Auth/Cert Referred By Contact Referred To Contact Status Reason Specialty Diagnoses / Procedures Diagnoses Acute renal failure (ARF) (HCC) acute renal failure Encounter Details Care Team Description Date Type Department Ruy Grover MD [address] [id number] Jie Nelson MD [address] [address] [phone] 09/27/2019 Anesthesia [facility] [address] [place] [address] [address] Anesthesia Record Responsible Anesthesiologist Anesthesia Start Time Anesthesi a Stop Time Procedure Name Ruy Grover MD 09/27/19 1648 09/27/19 1803 BRONCHOSCOPY DIAGNOSTIC WITH CELL WASHING - FLEXIBLE (Bilateral Bronchus) Date Time Event Comment 1623 AN Equip Check 2019 1639 1648 Anes Start 1649 In Room 1651 An Start Data 1656 An Induction The patient was ree valuated immediately before moderate or deep sedation use and before anesthesia induction. 1658 An Intubation 1701 Anesthesia Ready 1706 Proc Start 1709 Quick Note 1731 Quick Note NO DECADRON GIVEN P ER SURGERY TEAM REQUEST 1752 An Extubation 1758 an stop data 1803 Handoff to RN I completed my SBAR handoff to the receiving nurse. vss. patient is suctioned and extubated. transported to pacu with 8LPM via face mask. bedside report given to turntable operator. olesya muse is awake and following commands. rn denies any questions or concerns. 1802 An Stop Meds Name Total fentaNYL PF (SUBLIMAZE) injection 100 mcg lidocaine (2%) 200 mg/10mL Injection 100 mg syringe propofol (DIPRIVAN) 200 mg/ 20 mL 90 mg injection (VIAL) succinylcholine (ANECTINE) injection 140 mg (VIAL) ondansetron (ZOFRAN) injection 4 mg dextran 70/hypromellose (GENTEAL TEARS; 2 drop BION TEARS) ophthalmic solution cisatracurium (NIMBEX) 2 mg/mL injection 4 mg propofol (DIPRIVAN) infusion 421.08 mg glycopyrrolate (ROBINUL) 0.2mg/mL 0.6 mg injection neostigmine (PROSTIGMINE) 1 mg/mL 5 mg injection (VIAL) sodium chloride 0.9 % infusion (1000 400 mL mL bag) * Name O2 N2O Inspired N2O * No blood administrations on file. Removal Type Details Placement 10/11/19 1129 by Jolly Blank RN Peripheral 09/24/19; 1000; RN; L; Inner; Forearm; 09/24/19 1000 by Will, IV 20 G; 10/11/19; 1129 ROLAND Jimenez 10/11/19 1305 by Dipak Fair Wounds 09/24/19; 1217; Buttocks; Moisture 1217 by Kamila, (NOT for Associated Skin Damage; 10/11/19; 1305 ROLAND Hernandez Pressure Injuries) 10/02/19 1800 by Marcus Fernandez RN Indwelling 09/26/19; 1800; Unit (Comment); 16 FR; 09/26/19 1800 by Ana, Urinary Regular (Two-way); 10/02/19; 1800 Angi sherman RN Catheter 09/27/19 1752 by Jacqueline Blanchard CRNA ETT 09/27/19; 1658; Mask ventilation not 0 09/27/19 1658 by Santo, attempted (0); Direct laryngoscopy, Jacqueline Rodriguez CRNA Stylet, Rapid sequence; Single-Lumen, Cuffed; 8.5mm; Mac; 3; Oral; 1-Full vie w of the glottis; 1 insertion attempt; Auscultation, ETCO2 Detector; 22 centimeters; ATRAUMATIC INTUBATION. NO CHANGE IN DENTITION OR MUCOSA.; 09/27/19; 1752 documented in this encounter Social History Date Tobacco Use Types Packs/Day [...] impairment: No documented as of this encounter OR Notes * Anesthesia Postprocedure Evaluation - Efrain Lindsey MD - 09/27/2019 6:43 PM CDT Post-Anesthesia Evaluation Name: Mary Shelley : 1950 Age: 69 y.o. S ex: female Procedure Information Anesthesia Start Date/Time: 09/27/19 1648 Procedures: BRONCHOSCOPY DIAGNOSTIC WITH CELL WASHING - FLEXIBLE (Bilateral Bronchus) - CASE LENGTH 1.5 HOURS BRONCHOSCOPY WITH BRONCHIAL ALVEOLAR LAVAGE - FLEXIBLE (Left Bronchus) BRONCHOSCOPY WITH ENDOBRONCHIAL ULTRASOUND GUIDED TRANSTRACHEAL/ TRANSBRONCH IAL SAMPLING - 3 OR MORE MEDIASTINAL/ HILAR LYMPH NODE STATIONS/ STRUCTURE - FLE XIBLE (Bilateral Bronchus) BRONCHOSCOPY WITH BRONCHIAL/ ENDOBRONCHIAL BIOPSY - FLEXIBLE (Bilateral Bron chus) Location: MAIN OR 18 / Main OR/Periop Surgeon: Branden German MD Post-Anesthesia Vitals BP: 157/77 (09/26 1815) Temp: 36.6 C (97.9 F) (09/26 1800) Pulse: 107 (09/26 1814) Respirations: 21 PER MINUTE (09/26 1814) SpO2: 93 % (09/26 1814) SpO2 Pulse: 107 (09/26 1814) Vitals Value Taken Time BP 157/77 09/27/2019 6:15 PM Temp 36.6 C (97.9 F) 09/27/2019 6:00 PM Pulse 107 09/27/2019 6:15 PM Respirations 21 PER MINUTE 09/27/2019 6:15 PM SpO2 93 % 09/27/2019 6:15 PM Post Anesthesia Evaluation Note Evaluation location: Pre/Post Patient participation: recovered; patient participated in evaluation Level of consciousness: alert Pain score: 0 Pain management: adequate Hydration: normovolemia Temperature: 36.0C - 38.4C Airway patency: adequate Perioperative Events Post-op nausea and vomiting: nausea; resolved Postoperative Status Cardiovascular status: hemodynamically stable Respiratory status: spontaneous ventilation and supplemental oxygen (2Lpm) Follow-up needed: other Perioperative Events Perioperative Event: No Emergency Case Activation: No Associated attestation - Paz Mendez MD - 09/27/2019 6:48 PM CDT Post-Anesthesia Evaluation Attestation: I reviewed and agree the indicated post- anesthesia care was provided. I have reviewed ruiz portions of the indicated post anesthesia care. I have examined the patient's vitals, physical status, and com plications and agree with what is documented. Staff name: Paz Mendez MD Date: 09/27/2019 * Anesthesia Preprocedure Evaluation - Ruy Grover MD - 09/27/2019 4:06 PM CDT Anesthesia Pre-Procedure Evaluation Name: Mary Shelley : 1950 Age: 69 y.o. S ex: female Procedure Info: Procedure Information Date/Time: 09/27/19 1650 Procedures: BRONCHOSCOPY DIAGNOSTIC WITH CELL WASHING - FLEXIBLE (Bilateral ) - CASE GEORGI GT 1.5 HOURS BRONCHOSCOPY WITH BRONCHIAL ALVEOLAR LAVAGE - FLEXIBLE (Bilateral ) BRONCHOSCOPY WITH ENDOBRONCHIAL ULTRASOUND GUIDED TRANSTRACHEAL/ TRANSBRONCH IAL SAMPLING - 3 OR MORE MEDIASTINAL/ HILAR LYMPH NODE STATIONS/ STRUCTURE - FLE XIBLE (Bilateral ) BRONCHOSCOPY WITH BRONCHIAL/ ENDOBRONCHIAL BIOPSY - FLEXIBLE (Bilateral ) BRONCHOSCOPY WITH TRANSBRONCHIAL NEEDLE ASPIRATION AND BIOPSY TRACHEA/ MAIN STEM/ LOBAR BRONCHUS - FLEXIBLE (Bilateral ) BRONCHOSCOPY WITH TRANSBRONCHIAL LUNG BIOPSY - FLEXIBLE - SINGLE LOBE (Bilat eral ) Location: MAIN OR 18 / Main OR/Periop Surgeon: Branden German MD Physical Assessment Vital Signs (last filed in past 24 hours): BP: 169/85 (09/26 1510) Temp: 36.9 C (98.4 F) (09/26 1510) Pulse: 87 (09/26 1510) Respirations: 20 PER MINUTE (09/26 1510) SpO2: 97 % (09/26 1510) Patient History Allergies Allergen Reactions Mobic [Meloxicam] SWOLLEN TONGUE Current Medications Medication Directions calcium carbonate (TUMS) 500 mg (200 mg elemental calcium) chewable tablet Chew 500-1,000 mg by mouth every 6 hours as needed. enalapril (VASOTEC) 10 mg tablet Take 5 mg by mouth daily. hydroCHLOROthiazide (HYDRODIURIL) 25 mg tablet Take 25 mg by mouth every morning . HYDROcodone/acetaminophen (NORCO) 10/325 mg tablet Take 1 tablet by mouth every 6 hours as needed for Pain potassium chloride SR (K-DUR) 10 mEq tablet Take 10 mEq by mouth twice daily. Ta ke with a meal and a full glass of water. Review of Systems/Medical History PONV Screening: Female gender and Non-smoker Pulmonary COPD ILD Former smoker, quit 12 years ago. Cardiovascular Recent diagnostic studies: echocardiogram Interpretation Summary 1. Normal left ventricular systolic function with an EF of 65% 2. No regional wall motion abnormalities 3. Normal left ventricular diastolic function 4. Normal right ventricular size and qualitative function 5. Normal sized atria bilaterally 6. No significant valvular disease identified 7. Estimated peak systolic PA pressure = 36 mmHg 8. No pericardial effusion Hypertension, GI/Hepatic/Renal Renal disease: ARF Nausea Neuro/Psych Bedrest for 1 week Musculoskeletal Back pain Endocrine/Other Anemia (hbg 9.0) Physical Exam Airway Findings Mallampati: II TM distance: >3 FB Neck ROM: full Mouth opening: good Airway patency: adequate Dental Findings: Upper dentures and lower dentures Cardiovascular Findings: Rhythm: regular Rate: normal Pulmonary Findings: Breath sounds clear to auscultation. Abdominal Findings: Obese Neurological Findings: Comments: lethargic Diagnostic Tests Hematology: Lab Results Component Value Date HGB 9.0 09/27/2019 HCT 26.5 09/27/2019 PLTCT 222 09/27/2019 WBC 5.5 09/27/2019 NEUT 70 09/27/2019 ANC 3.82 09/27/2019 ALC 0.48 09/27/2019 WILLIE 18 09/27/2019 AMC 1.01 09/27/2019 EOSA 2 09/27/2019 ABC 0.06 09/27/2019 MCV 89.5 09/27/2019 MCH 30.6 09/27/2019 MCHC 34.1 09/27/2019 MPV 6.9 09/27/2019 RDW 13.2 09/27/2019 General Chemistry: Lab Results Component Value Date NA 136 09/27/2019 K 4.4 09/27/2019 CL 101 09/27/2019 CO2 19 09/27/2019 GAP 16 09/27/2019 BUN 86 09/27/2019 CR 6.74 09/27/2019 GLU 93 09/27/2019 CA 9.1 09/27/2019 ALBUMIN 2.8 09/25/2019 LACTIC 2.1 09/27/2019 MG 2.3 09/18/2019 TOTBILI 0.3 09/25/2019 PO4 6.5 09/18/2019 Coagulation: Lab Results Component Value Date PTT 27.5 09/18/2019 INR 1.4 09/18/2019 Anesthesia Plan ASA score: 4 Plan: general Induction method: intravenous NPO status: acceptable Informed Consent Anesthetic plan and risks discussed with patient. Plan discussed with: anesthesiologist, OXYGEN EQUIPMENT AIDE and surgeon/proceduralist. Comments: (GETA for EBUS Succinylcholine for COVID precautions RSI cisatricurium for any subsequent muscle relaxant ) documented in this encounter Plan of Treatment Not on filedocumented as of this encounter Goals Goal Patient Associated Recent Progress Patient-Stat Aut hor Goal Type Problems ed? GOAL General No Ale Choudhary RN Note: Get back on my feet documented as of this encounter Visit Diagnoses Not on filedocumented in this encounter Administered Medications Action Date Dose Rate Site Medication Order MAR Action 09/27/2019 5:03 PM CDT 4 mg cisatracurium (NIMBEX) injection Given INTRA-PROCEDURE MED, Starting Mon09/27/19 at 1703, Until Mon09/27/19 at 1758, Anesthesia Intra-op 09/27/2019 4:58 PM CDT 2 drops dextran 70/hypromellose (GENTEAL TEARS) Given ophthalmic solution INTRA-PROCEDURE MED, Starting Mon09/27/19 at 1658, Until Mon09/27/19 at 1758, Anesthesia Intra-op 09/27/2019 5:18 PM CDT 50 mcg fentaNYL citrate PF (SUBLIMAZE) Given injection INTRA-PROCEDURE MED, Starting Mon09/27/19 at 1655, Until Mon09/27/19 at 1758, Anesthesia Intra-op 50 mcg Given 09/27/2019 4:55 PM CDT 09/27/2019 5:44 PM CDT 0.2 mg glycopyrrolate (ROBINUL) injection Given INTRA-PROCEDURE MED, Starting Mon09/27/19 at 1741, Until Mon09/27/19 at 1758, Anesthesia Intra-op 0.2 mg Given 09/27/2019 5:43 PM CDT 0.2 mg Given 09/27/2019 5:41 PM CDT 09/27/2019 5:39 PM CDT 20 mg lidocaine (PF) injection Given INTRA-PROCEDURE MED, Starting Mon09/27/19 at 1656, Until Mon09/27/19 at 1758, Anesthesia Intra-op 80 mg Given 09/27/2019 4:56 PM CDT 09/27/2019 5:44 PM CDT 2 mg neostigmine (PROSTIGMINE) injection Given INTRA-PROCEDURE MED, Starting Mon09/27/19 at 1741, Until Mon09/27/19 at 1758, Anesthesia Intra-op 1 mg Given 09/27/2019 5:43 PM CDT 2 mg Given 09/27/2019 5:41 PM CDT 09/27/2019 5:42 PM CDT 4 mg ondansetron (ZOFRAN) injection Given Intravenous, INTRA-PROCEDURE MED, Starting Mon09/27/19 at 1742, Until Mon09/27/19 at 1758, Anesthesia Intra-op 09/27/2019 5:35 PM CDT 150 mcg/kg/min 69 mL/hr propofol (DIPRIVAN) infusion Dose/Rate 20 mL, INTRA-PROCEDURE MED(CONT), Change Starting Mon09/27/19 at 1653, Until Mon09/27/19 at 1758, Anesthesia Intra-op 130 mcg/kg/min 59.8 mL/hr Dose/Rate Change 09/27/2019 5:07 PM CDT 100 mcg/kg/min 46 mL/hr Given - New Bag 09/27/2019 4:53 PM CDT 09/27/2019 5:43 PM CDT 20 mg propofol (DIPRIVAN) injection Given INTRA-PROCEDURE MED, Starting Mon09/27/19 at 1656, Until Mon09/27/19 at 1758, Anesthesia Intra-op 70 mg Given 09/27/2019 4:56 PM CDT 09/27/2019 4:52 PM CDT sodium chloride 0.9 % infusion Given - New INTRA-PROCEDURE MED(CONT), Starting Mon Bag 09/27/19 at 1652, Until Mon09/27/19 at 1758, Anesthesia Intra-op 09/27/2019 4:57 PM CDT 140 mg succinylcholine (ANECTINE) injection Given Intravenous, INTRA-PROCEDURE MED, Starting Mon09/27/19 at 1657, Until Mon09/27/19 at 1758, Anesthesia Intra-op documented in this encounter
--- OUTSIDE RECORDS SUMMARY | 2019-10-16 12:50 | XMS REPORT | Encounter Summary ---
Author Author [facility] Organization [facility] Address Unknown Phone Unavailable Care Team Providers Care Express Clerk Name Role Phone No Pcp, Na PCP Unavailable Encounter Details Care Team Description Date Type Department Nanette Kemp MD [address] [place] [address] [phone] 10/04/2019 Orders Only [facility] [address] [id number] Social History Date Tobacco Use Types Packs/Day [...]
--- OUTSIDE RECORDS SUMMARY | 2019-10-16 12:54 | XMS REPORT | Encounter Summary ---
Author Author [facility] Organization [facility] Address Unknown Phone Unavailable Care Team Providers Care Etiquette Coach Name Role Phone No Pcp, Na PCP Unavailable Reason for Visit * Auth/Cert Referred By Contact Referred To Contact Status Reason Specialty Diagnoses / Procedures Diagnoses Acute renal failure (ARF) (HCC) acute renal failure Encounter Details Care Team Description Date Type Department Branden Choe MD [address] Ortho/Med Pavilion [address] [place] [address] BRONCHOSCOPY DIAGNOSTIC WITH CELL WASHIN G - FLEXIBLE 09/27/2019 Surgery [facility] OR [address] [address] Social History Date Tobacco Use [...] (09/17 912) Height: 162.6 cm (64") (09/16 2349) BP: (146-157)/(70-77) Temp: [36.4 C (97.6 F)-36.9 [...] ar (L3-L5) spinal fusions who presented to [facility] 09/16 for progressively wor sening weakness and [...] lymphoma. Patient was subsequently transferred to the [facility] service 10/04 and initiated on C1 R-CHOP. [...] follow-up. Patient will discharge to SNF in [place] an d will f/u with Dr. Zhong for outpatient oncology. SNF should be aware that radha hill may require oxygen on discharge. She will f/u with [facility] pulm for steroid angel atment plan for suspected sarcoidosis. She will f/u with GI as outpatient in the future for possible EUS. Patient was discharged with prescriptions for acyclovi r, fluconazole, and levaquin antimicrobial prophylaxis in the setting of newly d iagnosed DLBCL s/p cycle 1 chemotherapy. She was also prescribed low-dose ativan for nausea/vomiting and anxiety relief. Madrid was not resumed on discharge, as she [...] Hematology, Hepatology, Nephrology and Pulmonary Patient Disposition: Senior Living Facility Patient instructions/medications: Renal Diet Your diet will need to be low in potassium and phosphorous. Keep track of your sodium intake and limit it to 2000mg (milligrams) per day. If you have any questions regarding your diet at home, you may contact a dietiti an at [phone]. Testing Not Required for Covid-19 Testing Not [...] or concerns regarding your hospital stay, call [phone]. Discharging attending physician: KAREN COTA [[id number]] Activity as Tolerated It is important to [...] lev el at discharge Tunneled Catheter Line Assisted Care Instructions: The bandage over the catheter exit site must be kept clean and dry. Only [facility] may change the dressing. Place a [...] Zn & folate (Renal) (NEPHPLEX RX) 1-60-300-12.5 em-zv-nnr-mg tab Take one tablet by mouth daily. [...] Ruy Mcguire MD, IR ROOM [address] [facility] Radiology (Interv Radiolo gy) [address] [address] Nov 20, 2019 12:30 PM CDT Return Patient with Eric Juarez MD [facility] (Internal Medicine) [address] [facility] [id number] Pending items needing follow up: CSF flow and cytology from LP 10/09. Onc, pulm, and GI f/u outpatient. Signed: Julian Malloy MD 10/09/2019 cc: Primary Care Physician: No Pcp, Na Verified Referring physicians: Unknown, Deena, Additional provider(s): Associated attestation - Karen Cota MD - 10/11/2019 2:30 PM CDT ATTESTATION I personally performed the ruiz portions of the E/M visit, discussed case with re sident and concur with resident documentation of history, physical exam, assessm ent, and treatment plan unless otherwise noted. Karen Cota [phone] documented in this encounter Discharge Instructions * Discharge Instr - Case Management* Zakia Stinson RN - 10/09/2019 1:13 PM CDT You are scheduled for outpatient hemodialysis every Monday, , and at 10:15 AM. Your first chair time is scheduled for this Monday, 0 and you will need to arrive no later than 10:00 AM for your first appointment. The location is: [facility] P: [address] [place] [address] Thank you and it has been a pleasure taking care of your discharge needs! Zakia Stinson RN, BSN Nurse Newborn Hearing ScreenerReporter / Surgical Non-Transplant Pager: documented in this [...] tablet by (NEPHPLEX RX) mouth daily. 1-60-300-12.5 lh-zt-jew-mg tab documented as of this encounter Progress [...] unit. Report given to Solange Mendoza in [place], [place]. * Paz Epstein PTA - 10/11/2019 [...] Inpatient setting Therapist: Paz Epstein, Physical therapist minister assistant Date: 10/11/2019 * Gloria Head OT [...] in Shower;Shower Chair Prior Function Level Of [place]: Independent with ADLs and functional transfers;Independen t [...] home with her 88 y.o. sister and [id number]. Indicates that they both use walkers and [...] Comment: Seated EOB, requires minimal assistance to [facility] gown around manda k, completed toileting and [...] and can safely use the walker. Therapist: Gloria Head OTR/Mayo [id number] Date: 10/11/2019 * Julian Malloy MD - [...] ar (L3-L5) spinal fusions who presented to [facility] 09/16 for progressively wor sening weakness and [...] LP 10/03, negative for malignant cells. High SOCIAL SECRETARY-IPI - s/p BMBx 10/03: normocellular marrow, negative for lymphoma - ECOG status 1 - Renal biopsy from 09/28 shows pathology that is consistent with DLBCL - R-CHOP C1D8 PLAN > IT chemo with IR 10/09 > Patient from [place], [place] but is willing to travel to [place] for treatment. Dr. Zhong in [place] may be able to handle OP treatment. [...] CECE, HCTZ > Blood pressure mildly elevated.On [id number] #Chronic Back Pain > will hold Madrid for now, given chemo regimen > emu [...] She was breathing comfortably on room air th is morning. She otherwise denies nausea, vomiting, constipation. [...] Pertinent radiology reviewed. Julian Malloy MD Pager [phone] Associated attestation - Karen Cota MD - 10/11/2019 2:29 PM CDT ATTESTATION I personally performed the ruiz portions of the E/M visit, discussed case with re sident and concur with resident documentation of history, physical exam, assessm ent, and treatment plan unless otherwise noted. total floor time perfroming discharge : 35 min Karen Cota [phone] * Luda Ellison RT - 10/10/2019 10:27 PM CDT RT [...] O2%: Breath Sounds: Respiratory Effort: * Levar Coleman DO - 10/10/2019 5:14 PM CDT Renal [...] to clear more. Levar Coleman, DO Pager [phone] Subjective HPI: Mary Tim is a 69 [...] 0 (10/10/191644) Vitals: 10/10/19 0240 10/10/19 1323 10/10/191644 Weight: 75.6 kg (166 lb 9.6 oz) [...] Invalid input(s): PC02A Levar Coleman DO Pager [phone] * Tiffany Jernigan RN - 10/10/2019 4:46 PM CDT Patient off unit from [phone] * Paz Epstein PTA - 10/10/2019 1:22 PM CDT PHYSICAL THERAPY NOTE Name: Mary Tim : 1950 Age: [age] y.o. Admission Date: 09/17/2019 LOS: 22 days Patient was unavailable for physical therapy/pt off the unit to IR for LP and IT chemo. Physical therapy will continue to follow and provide intervention as in dicated. Therapist: Paz Epstein, Physical therapist minister assistant Date: 10/10/2019 * Maximilian Ba MD [...] ar (L3-L5) spinal fusions who presented to [facility] 09/16 for progressively wor sening weakness and [...] LP 10/03, negative for malignant cells. High SOCIAL SECRETARY-IPI - s/p BMBx 10/03: normocellular marrow, negative for lymphoma - ECOG status 1 - Renal biopsy from 09/28 shows pathology that is consistent with DLBCL - R-CHOP C1D6 PLAN > IT chemo with IR 10/09 > Patient from [place], [place] but is willing to travel to [place] for treatment. Dr. Zhong in [place] may be able to handle OP treatment. [...] CECE, HCTZ > Blood pressure mildly elevated.On [id number] #Chronic Back Pain > will hold Madrid for now, given chemo regimen > emu [...] this morning. She is happy th at will replace her dentures. No other complaints [...] (10/10 239) Temp: 36.5 C (97.7 F) (10/10 239) Pulse: 100 (10/10 239) Respirations: 20 PER MINUTE (10/10 239) SpO2: 95 % (10/09 299) BP: (117-142)/(54-68) Temp: [36.3 C (97.4 F)-36.7 [...] Pertinent radiology reviewed. Maximilian Ba MD Pager [phone] Associated attestation - Karen Cota MD - 10/11/2019 8:45 AM CDT ATTESTATION I personally performed the ruiz portions of the E/M visit, discussed case with re sident and concur with resident documentation of history, physical exam, assessm ent, and treatment plan unless otherwise noted. Karen Cota [phone] * Odilia Caldwell RN - 10/10/2019 5:45 [...] to clear more. Levar Coleman, DO Pager [phone] Subjective HPI: Mary Tim is a 69 [...] MINUTE (10/08 1525) SpO2: 95 % (10/08 1525) BP: (126-142)/(50-68) Temp: [36.3 C (97.4 F)-36.7 [...] No rash noted. Labs Recent Labs 10/07/19 02210/07/19 1900 10/08/19 0315 10/08/19 1633 10/09/19 0300 [...] 5.9* 2.9 4.3 5.6* 5.1* Recent Labs 10/07/1922410/08/19 0315 10/09/19 0300 WBC 13.6* 11.2* 30.7* [...] Invalid input(s): PC02A Levar Coleman DO Pager [phone] * Luisito Baeza MBBS - 10/09/2019 3:00 PM CDT Discussed with primary team. Patient was initially seen by the biliary service f or endoscopic ultrasound to address diffuse atrophy of the pancreas. Initially plan was to perform EUS prior to discharge once stable(as previously patient was found to have hyperkalemia secondary to renal failure ) or as outpatient. [place] ent was diagnosed with diffuse large B-cell [...] who agrees. Luisito Baeza GI fellow Pager [phone] 10/09/2019 3:03 PM * Tess Becerra, OT - 10/09/2019 9:16 AM CDT OCCUPATIONAL [...] in Shower;Shower Chair Prior Function Level Of [place]: Independent with ADLs and functional transfers;Independen t [...] home with her 88 y.o. sister and oewbwjm-tr-uhr. Indicates that they both use walkers and [...] Walker with wheels Therapist: MARBELLA Epps R/L [id number] Date: 10/09/2019 * Paz Epstein PTA - [...] Assistance: Verbal Cues;For Safety Considerations(cues for te alexandranique) End Of Activity Status: Up in Chair;Instructed [...] Score: 42.48 Basic Mobility CMS 0-100%: 36.99 [facility] G Code Modifier for Basic Mobility: [...] Inpatient setting Therapist: Paz Epstein, Physical therapist minister assistant Date: 10/09/2019 * Julian Malloy MD [...] ar (L3-L5) spinal fusions who presented to [facility] 09/16 for progressively wor sening weakness and [...] LP 10/03, negative for malignant cells. High SOCIAL SECRETARY-IPI - s/p BMBx 10/03: normocellular marrow, negative [...] chemo with IR 10/09 > Patient from [place], [place] but is willing to travel to [place] for treatment. Dr. Zhong in [place] may be able to handle OP treatment. [...] CECE, HCTZ > Blood pressure mildly elevated.On [id number] > d/c PRN hydralazine and labetalol. May consider PRN PO clonidine if hypertensive #Chronic Back Pain > will hold Madrid for now, given chemo regimen > emu [...] Internal Medicine, PGY-1 Available on Voalte Pager: [phone] Subjective Mary Tim is a 69 y.o. [...] Pertinent radiology reviewed. Julian Malloy MD Pager [phone] Associated attestation - Karen Cota MD - 10/09/2019 1:04 PM CDT ATTESTATION I personally performed the ruiz portions of the E/M visit, discussed case with re sident and concur with resident documentation of history, physical exam, assessm ent, and treatment plan unless otherwise noted. Karen Cota [phone] * Odilia Caldwell RN - 10/09/2019 4:59 [...] and safety. Therapist: Paz Epstein, Physical therapist minister assistant Date: 10/08/2019 * Kenji Peña DO - 10/08/2019 2:41 PM CDT Renal Progress [...] HD started: 10/03 # DLBCL # IgG Wilburn Paraproteinemia # Acute Hypoxic Respiratory Failure # [...] 1244) Temp: 36.3 C (97.3 F) (10/07 124) Pulse: 89 (10/07 1244) Respirations: 20 PER MINUTE (10/07 124) SpO2: 98 % (10/07 124) SpO2 Pulse: [...] Screen NEG Electronic Crossmatch YES Unit Number [id number] Blood Component Type RBC,ADSOL,LEUKO REDUCED Unit Division 0 Status OF Unit DISCARDED Transfusion Status OK TO TRANSFUSE Crossmatch Result COMPATIBLE,ELECTRONIC Unit Number [id number] Blood Component Type RBC,ADSOL,LEUKO REDUCED,IRRADIATED Unit Division [...] Ultrasound and fluoroscopic guidance for left 8 Nigerian chest port placement, as described. I, Jonathan [...] gland and retroperitoneum. Leading consideration is lymphoma. [place] disease and IgG-4 related disease are additional [...] IMAGING Final Result Kenji Peña DO Pager [phone] Associated attestation - Levar Coleman DO - [...] otherwise noted. Staff name: DO Jarad Arnold Anurag K, MD - 10/08/2019 8:05 AM CDT General [...] ar (L3-L5) spinal fusions who presented to [facility] 09/16 for progressively wor sening weakness and [...] LP 10/03, negative for malignant cells. High SOCIAL SECRETARY-IPI - s/p BMBx 10/03: normocellular marrow, negative [...] chemo with IR 10/09 > Patient from [place], [place] but is willing to travel to [place] for treatment. Dr. Zhong in [place] may be able to handle OP treatment. [...] CECE, HCTZ > Blood pressure mildly elevated.On Lrtsknw44mh > d/c PRN hydralazine and labetalol. May consider PRN PO clonidine if hypertensive #Chronic Back Pain > will hold Madrid for now, given chemo regimen > emu [...] Internal Medicine, PGY-1 Available on Voalte Pager: [phone] Subjective Mary Tim is a 69 y.o. [...] chloride 0.9 % infusion 50 mL/hr at 10/07/192123 PRN and Respiratory Meds:calcium carbonate Q6H PRN, [...] PER MINUTE (10/08 747) SpO2: 98 % (10/07 07) SpO2 Pulse: 96 (10/06 1830) BP: (102-176)/(46-156) [...] Intake/Output Summary (Last 24 hours) at 10/08/2019 08 Last data filed at 10/08/2019 0625 Gross [...] Screen NEG Electronic Crossmatch YES Unit Number [id number] Blood Component Type RBC,ADSOL,LEUKO REDUCED Unit Division 0 Status OF Unit DISCARDED Transfusion Status OK TO TRANSFUSE Crossmatch Result COMPATIBLE,ELECTRONIC Unit Number [id number] Blood Component Type RBC,ADSOL,LEUKO REDUCED,IRRADIATED Unit Division 0 Status OF Unit ISSUED Transfusion Status OK TO TRANSFUSE Crossmatch Result COMPATIBLE,ELECTRONIC Point of Care Testing (Last 24 hours) Glucose: (!) 137 (10/08/19 0315) POC Glucose (Download): (!) 175 (10/07/19 1248) Radiology and other Diagnostics Review: Pertinent radiology reviewed. Julian Malloy MD Pager [phone] ATTESTATION I personally performed the ruiz portions of the E/M visit, discussed case with re sident and concur with resident documentation of history, physical exam, assessm ent, and treatment plan unless otherwise noted. Karen Cota [phone] * Odilia Caldwell RN - 10/08/2019 5:32 [...] denies pain and nausea. Procedure site CDI. gaming dealer contacted plan to take pt to dialysis. [...] provide intervention as faye cated. Therapist: Paz Epstein, Physical therapist minister assistant Date: 10/07/2019 * Willie Gillespie RN [...] Will continue to monitor patient. * Gloria Head OT - 10/07/2019 10:26 AM CDT OCCUPATIONAL [...] in Shower;Shower Chair Prior Function Level Of [place]: Independent with ADLs and functional transfers;Independen t [...] home with her 88 y.o. sister and jczwnmu-ul-pdk. Indicates that they both use walkers and [...] safely use the walker. Therapist: EDWIN Grande/[place] [id number] Date: 10/07/2019 * Nidia Vyas RD - [...] (L3-L5) spinal fus ions who presented to [facility] 09/16 for progressively worsening weakness and f [...] Current Oral Intake: Adequate Estimated Calorie Needs: 4678-5644(28-32kcal/kg/desired wt) Estimated Protein Needs: 99-112(1.5-1.7g/kg/desired wt) Malnutrition [...] trends, meds, labs, and GI health. Order Novasource Renal. Goals: Verbalize understanding of diet Time Frame: Prior to discharge Status: Met Prevent further skin breakdown Time Frame: Throughout stay Status: Ongoing Nidia Vyas RD, MARGARET, LD Office: [phone] Voalte: [phone] * Kenji Peña, DO - 10/07/2019 9:59 AM CDT Renal [...] HD started: 10/03 # DLBCL # IgG Wilburn Paraproteinemia # Acute Hypoxic Respiratory Failure # [...] capsule 200 mg, 200 mg, Oral, BID [MAY Hold] allopurinoL (ZYLOPRIM) tablet 100 mg, 100 mg, Oral, QDAY amitriptyline/gabapentin/emu oil(#) 4/4/10 % topical cream, , Topical, Q8H [MAY Hold] amLODIPine (NORVASC) tablet 10 mg, 10 mg, Oral, QDAY [MAY Hold] cyanocobalamin (VITAMIN B-12) tablet 1,000 mcg, 1,000 mcg, Oral, QDAY [MAY Hold] filgrastim-sndz (ZARXIO) inj syringe 300 mcg, 300 mcg, Subcutaneous, Q24H* [MAY Hold] folic acid (FOLVITE) tablet 1 [...] tablet 650 mg, 650 mg, Oral, BID [MAR Hold] vitamins, multi B, C, Zn & [...] % (10/06 1325) SpO2 Pulse: 89 (10/06 132) BP: (90-172)/(39-156) Temp: [36.3 C (97.4 F)-36.8 [...] (Last 24 hours) Glucose: (!) 175 (10/07/19 4027) POC Glucose (Download): (!) 175 (10/07/19 5426) Radiology and other Diagnostics Review: CHEST SINGLE [...] Ultrasound and fluoroscopic guidance for left 8 Nigerian chest port placement, as described. IJonathan M.D, [...] LUMBAR PUNCTURE Final Result Diagnostic lumbar puncture. ISourav M.D., the attending [...] gland and retroperitoneum. Leading consideration is lymphoma. [place] disease and IgG-4 related disease are additional [...] on 09/24/2019 3:10 PM. Dictated by Yakelin cutlre M.D. on 09/24/2019 2:26 PM. 2D + [...] Final Result IR LUMBAR PUNCTURE (Results Pending) Kenji Peña DO Pager [phone] Associated attestation - Levar Coleman DO - [...] ar (L3-L5) spinal fusions who presented to [facility] 09/16 for progressively wor sening weakness and [...] LP 10/03, negative for malignant cells. High SOCIAL SECRETARY-IPI - s/p BMBx 10/03, results pending - [...] per cycle for now > Patient from [place], [place] but is willing to travel to [place] for treatment. Dr. Zhong in [place] may be able to handle OP treatment. [...] CECE, HCTZ > Blood pressure mildly elevated.On [id number] > d/c PRN hydralazine and labetalol. May consider PRN PO clonidine if hypertensive #Chronic Back Pain > will hold Madrid for now, given chemo regimen > emu [...] Internal Medicine, PGY-1 Available on Voalte Pager: [phone] Subjective Mary Tim is a 69 y.o. [...] PRN, sodium chloride 0.9% (NS) IP Dialysis OH N, sodium chloride 0.9% irrigation bottle PRN, [...] (Last 24 hours) Glucose: (!) 175 (10/07/19 022) Radiology and other Diagnostics Review: Pertinent radiology reviewed. Julian Malloy MD Pager [phone] Associated attestation - Karen Cota MD - 10/07/2019 5:52 PM CDT ATTESTATION I personally performed the ruiz portions of the E/M visit, discussed case with re sident and concur with resident documentation of history, physical exam, assessm ent, and treatment plan unless otherwise noted. Karen Cota [phone] * Trevin Woods MD - 10/07/2019 2:07 [...] provided. Trina Blank PHARMD * Coco Alexander, RT - 10/06/2019 12:36 PM CDT RT Adult [...] (Implies normal);Decreased Respiratory Effort: Non-Labored * Lisbeth Gu RN - 10/06/2019 12:33 PM CDT First [...] ar (L3-L5) spinal fusions who presented to [facility] 09/16 for progressively wor sening weakness and [...] LP 10/03, negative for malignant cells. High SOCIAL SECRETARY-IPI - s/p BMBx 10/03, results pending - [...] per cycle for now > Patient from [place], [place] but is willing to travel to [place] for treatment. Dr. Zhong in [place] may be able to handle OP treatment. [...] CECE, HCTZ > Blood pressure mildly elevated.On [id number] > d/c PRN hydralazine and labetalol. May [...] Internal Medicine, PGY-1 Available on Voalte Pager: [phone] ATTESTATION I have personally performed a history and physical exam on the patient. I have d iscussed the case with the resident and concur with the resident documentation o f history, physical exam, assessment, and treatment plan unless otherwise noted. Staff name: Luis Carlos Velez DO Team pager: [phone] Date:10/06/2019 Subjective Mary Tim is a 69 [...] % (10/06 631) SpO2 Pulse: 98 (10/04 1099) BP: (116-138)/(51-65) Temp: [36.3 C (97.3 F)-37.1 [...] (Last 24 hours) Glucose: (!) 132 (10/06/19 0435) Radiology and other Diagnostics Review: Pertinent radiology reviewed. Julian Malloy MD Pager [phone] * Lisbeth Gu RN - 10/05/2019 4:38 PM CDT CHEMO NOTE [...] and she is to start ch emotherpathy today. - I saw her on [...] able to chew. Levar Coleman DO Pager [phone] Subjective HPI: Mary Tim is a 69 [...] 10/05/19 1212, hydrALAZINE Q6H PRN Stopped at 09/256, HYDROcodone/acetaminophen Q6H PRN 1 tablet at 10/05/19 0915, labetalol (NORMODYNE; TRANDATE) injection Q6H PRN 10 mg at 09/30/19 1251, melatonin QHS P RN 5 mg at 10/03/192125, simethicone Q6H PRN 80 mg at 10/04/192125, vitamin A & D PRN Physical Exam Vital Signs: Last Filed In 24 Hours Vital Signs: 24 Hour Range BP: 122/56 (10/04 1318) Temp: 36.8 C (98.3 F) (10/04 1318) Pulse: 94 (10/04 1318) Respirations: 22 PER MINUTE (10/04 1318) SpO2: 93 % (10/04 1318) SpO2 Pulse: 98 (10/04 1100) BP: (110-143)/(48-63) Temp: [36.5 C (97.7 F)-37.1 C (98.8 F)] Pulse: [85-97] Respirations: [18 PER MINUTE-36 PER MINUTE] SpO2: [92 %-98 %] Intensity Pain Scale (Self Report): 10 (10/05/19 0915) Vitals: 10/03/19 1100 10/05/19 0643 10/05/19 1100 Weight: 69.9 kg (154 lb 1.6 oz) [...] mg/dL (H)). Vitals: 10/03/19 1100 10/05/19 0643 10/05/19 1100 Weight: 69.9 kg (154 lb 1.6 oz) 71.5 kg (157 lb 10.1 oz) 71.2 kg (156 lb 15.5 oz ) No results for input(s): PHART, PO2ART in the last 72 hours. Invalid input(s): PC02A Levar Coleman DO Pager [phone] * Lisbeth Gu RN - 10/05/2019 1:54 [...] am documented a ssessment. * Luis Carlos Velez, - 10/05/2019 11:20 AM CDT General Progress [...] ar (L3-L5) spinal fusions who presented to [facility] 09/16 for progressively wor sening weakness and [...] - Diagnostic LP 10/03 results pending. High SOCIAL SECRETARY-IPI - s/p BMBx 10/03, results pending - [...] CECE, HCTZ > Blood pressure mildly elevated.On [id number] > BP control, less than 140/90. Labetalol [...] Internal Medicine, PGY-1 Available on Voalte Pager: [phone] ATTESTATION I have personally performed a history [...] name: Luis Carlos Velez DO Team pager: [phone] Date:10/05/2019 Subjective Mary Tim is a 69 [...] Pertinent radiology reviewed. 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 Abnormal CT abdomen pelvis;concern for systemic diseaseor disseminated DLBCL - CT abdomen pelvis was done for evaluation of liver lesion seen on CT chest. - Patient has minimal symptoms of vague abdominal discomfort and constipation - CT abdomenandpelvis showed multiple findings abnormalities involving the l iver, gallbladder, kidneys, right adrenal gland and retroperitoneum. Leading con sideration is lymphoma. [place] disease and IgG-4 related disease are ad [...] CT in 3 months time to reassess. -[place] Panel Labs sent with elevated Aldolase, will follow up results as above. -Continue incentive spirometry as ordered and supplemental O2 as needed - hold 40mg prednisone for now while DLBCL work up is happening HTN - hold CECE, HCTZ - Blood pressure mildly elevated.On Ptjeyoq61vj -BP control, less than 140/90. Labetalol prn, [...] 96 % (10/04 829) SpO2 Pulse: 91 (10/04 829) BP: (100-143)/(41-99) Temp: [36.4 C (97.5 F)-36.8 [...] (10/04/19 1015) Vitals: 10/02/19 1626 10/03/19 0750 07/23/20 1100 Weight: 75.1 kg (165 lb 9.1 [...] reviewed. Bebeto Wagner MD Associated attestation - Nanette Kemp MD - 10/04/2019 9:09 PM CDT [...] high risk IPI and high risk for SOCIAL SECRETARY recurrence, on dialysis, d ose reduced chemo [...] 10/01/19 # Hypokalemia # DLBCL # IgG Wilburn Paraproteinemia # Acute Hypoxic Respiratory Failure # [...] was on her way to her port placemen t when I saw her this morning. States [...] Ultrasound and fluoroscopic guidance for left 8 Nigerian chest port placement, as described. Jonathan Pinto [...] LUMBAR PUNCTURE Final Result Diagnostic lumbar puncture. ISourav M.D., the attending [...] gland and retroperitoneum. Leading consideration is lymphoma. [place] disease and IgG-4 related disease are additional [...] BIOPSY (Results Pending) Kenji Peña DO Pager [phone] Associated attestation - Levar Coleman DO - [...] and provide intervention as indicat ed. Therapist: EDWIN Pablo/Mayo [id number] Date: 10/04/2019 * Reji Read MD - [...] Units, 5,000 Units, Subcutaneous, Q8H* [MAR Hold] mineral oil/hydrophilic petrolatum (AQUAPHOR, DERMAPHOR) topical oint ment, , Topical, QDAY [MAR Hold] polyethylene glycol 3350 (MIRALAX) packet 34 g, 2 packet, Oral, QDAY [MAR Hold] senna (SENOKOT) tablet 2 tablet, 2 tablet, Oral, QHS [MAR Hold] sodium bicarbonate tablet 650 mg, 650 mg, Oral, BID [MAR Hold] vitamins, multi B, C, Zn & folate (Renal) (NEPHPLEX RX) tablet 1 tablet, 1 tablet, Oral, QDAY Continuous Infusions: PRN and Respiratory Meds:[MAR Hold] bisacodyL QDAY PRN, [MAR Hold] calcium carbo vishal Q6H PRN, [MAR Hold] guaiFENesin Q4H PRN, hydrALAZINE Q6H PRN, [...] Pertinent radiology reviewed. Ben Stinson MD Pager [phone] * Brenda Bui RN - 10/04/2019 9:18 [...] -MonitorI&Os - BMP QD - Nephrology recommends assisted HD treatment with TTS schedule. Abnormal CT abdomen pelvis;concern for systemic diseaseor disseminated DLBCL - CT abdomen pelvis was done for evaluation of liver lesion seen on CT chest. - Patient has minimal symptoms of vague abdominal discomfort and constipation - CT abdomenandpelvis showed multiple findings abnormalities involving the l iver, gallbladder, kidneys, right adrenal gland and retroperitoneum. Leading con sideration is lymphoma. Erdheim-[place] disease and IgG-4 related disease are ad [...] CT in 3 months time to reassess. -[facility]iente-Marker Panel Labs sent with elevated Aldolase, will follow up results as above. -Continue incentive spirometry as ordered and supplemental O2 as needed - hold 40mg prednisone for now while DLBCL work up is happening HTN - hold CECE, HCTZ - Blood pressure mildly elevated.On [id number] -BP control, less than 140/90. Labetalol prn, [...] Diagnostics Review: Pertinent radiology reviewed. Jade Bejarano, MS * Bebeto Wagner MD - 10/03/2019 6:05 [...] when placed back on O2. Medications Scheduled Meds:[MAR Hold] allopurinoL (ZYLOPRIM) tablet [...] Units, 5,000 Units, Subcutaneous, Q8H* [MAR Hold] mineral oil/hydrophilic petrolatum (AQUAPHOR, DERMAPHOR) topical oint ment, , Topical, QDAY [MAR Hold] polyethylene glycol 3350 (MIRALAX) packet 34 g, 2 packet, Oral, QDAY [MAR Hold] senna (SENOKOT) tablet 2 tablet, 2 tablet, Oral, QHS [MAR Hold] sodium bicarbonate tablet 650 mg, 650 mg, Oral, BID [MAR Hold] vitamins, multi B, C, Zn & [...] Pertinent radiology reviewed. Ben Stinson MD Pager [phone] Associated attestation - Reji Read MD - [...] Maris Erazo Date: 10/03/2019 * Kenji Peña - 10/03/2019 12:48 PM CDT Renal Progress [...] SLED initiation: 10/01/19 # DLBCL # IgG Wilburn Paraproteinemia # Acute Hypoxic Respiratory Failure # [...] Units, 5,000 Units, Subcutaneous, Q8H* [MAR Hold] mineral oil/hydrophilic petrolatum (AQUAPHOR, DERMAPHOR) topical oint ment, , Topical, QDAY [MAR Hold] polyethylene glycol 3350 (MIRALAX) packet 34 g, 2 packet, Oral, QDAY [MAR Hold] senna (SENOKOT) tablet 2 tablet, 2 tablet, Oral, QHS [MAR Hold] sodium bicarbonate tablet 650 mg, 650 mg, Oral, BID [MAR Hold] vitamins, multi B, C, Zn & [...] LUMBAR PUNCTURE Final Result Diagnostic lumbar puncture. ISourav M.D., the attending [...] image-guided placement of tunneled hemodialysis catheter. Jonathan Pinot M.D, the attending radiologist, was present for [...] M.D. on 10/01/2019 1:45 PM. Dictated by Alnoso Farfan D.O. on 10/01/2019 1:37 PM. IR [...] CATHETER (Results Pending) Kenji Peña DO Pager [phone] Associated attestation - Levar Coleman DO - [...] SPO2 increased to 9 2%. * Padma Christine OT - 10/03/2019 11:42 AM CDT OCCUPATIONAL THERAPY NOTE Name: Mary Tim : 1950 Age: [age] y.o. Admission Date: 09/17/2019 LOS: 15 days Patient out of room receiving dialysis. Will attempt to work with patient later this date as able. Therapist: Padma Christine OT Date: 10/03/2019 * Yisel Carlos MD [...] and retroperitoneum. Leading con sideration is lymphoma. Erdheim-Rayn disease and IgG-4 related disease are ad [...] CT in 3 months time to reassess. -Caliente-Marker Panel Labs sent with elevated Aldolase, will follow up results as above. -Continue incentive spirometry as ordered and supplemental O2 as needed, if co ugh worsens, do CXR - Start 40mg prednisone, consult with hematology if okay to start HTN - hold CECE, HCTZ - Blood pressure mildly elevated.On [id number] -BP control, less than 140/90. Labetalol prn, [...] 799) Temp: 36.9 C (98.4 F) (10/02 0750) Pulse: 89 (10/03 799) Respirations: 23 PER MINUTE (10/02 06) SpO2: 96 % (10/03 799) SpO2 Pulse: 89 (10/03 799) Height: 162.6 cm (64.02") (10/02 075) BP: (100-147)/(48-85) Temp: [36.4 C (97.5 F)-36.9 [...] 24 hours) POC Glucose (Download): 92 (10/02/19 0681) Radiology and other Diagnostics Review: Pertinent radiology reviewed. Jade Bejarano, * Eric Cornejo RN - 10/03/2019 7:17 AM CDT Patient arrived to room # (0206) via bed accompanied by RN. Patient transferred [...] provide intervention as indicated. Therapist: EDWIN Diaz/[place] [id number] Date: 10/02/2019 * Bebeto Wagner MD - [...] and bmp Patient staffed with Dr. Justo aWgner MD PGY 4 Hematology Oncology Available on [...] 93 (10/01 914) Respirations: 16 PER MINUTE (07/22 0915) SpO2: (P) 95 % (10/01 1239) SpO2 [...] Range HBsAg Non-Reactive: HBs antigen not detected OGCD-Jlj-Hrmytski: HBs antigen not detected HEPATITIS B CORE AB TOT (IGG+IGM) Collection Time: 10/02/19 6:10 AM Result Value Ref Range Anti HBc Total UEOYM-Nnz-Jcjrwkwe: Antibodies to HBV core antigen (anti-HBc Non-Reactive: Antibodies to HBV core antigen (anti-HBc)were not detected. HEPATITIS C AB Collection Time: 10/02/19 6:10 AM Result Value Ref Range Anti HCV Non-Reactive: Antibodies to HCV were not detected. FTJLH-Ocv-Lfbtfjvv: Antibodies to HCV were not detected. HIV-1/2 ANTIGEN/ANTIBODY SCREEN Collection Time: 10/02/19 6:10 AM Result Value Ref Range HIV 1 and 2 AG AB Screen JNUOZ-Kng-Iiewmyoi: Negative for HIV-1 Ag and HIV-1/2 specif [...] (10/02/19 0610) POC Glucose (Download): 92 (10/02/19 0838) Radiology and other Diagnostics Review: Pertinent radiology reviewed. Bebeto Wagner MD * Kenji Peña, - 10/02/2019 12:40 PM CDT Renal Progress [...] SLED initiation: 10/01/19 # DLBCL # IgG Wilburn Paraproteinemia # Acute Hypoxic Respiratory Failure # [...] her sister will be driving up from [place], [place] to come see her. Medications Scheduled [...] % (10/01 1430) SpO2 Pulse: 83 (10/01 143) BP: (100-147)/(43-85) Temp: [36.4 C (97.6 F)-37.3 [...] Range HBsAg Non-Reactive: HBs antigen not detected NHMB-Lvg-Pntmhxad: HBs antigen not detected HEPATITIS B CORE AB TOT (IGG+IGM) Collection Time: 10/02/19 6:10 AM Result Value Ref Range Anti HBc Total LOVAU-Ike-Ixrvboqd: Antibodies to HBV core antigen (anti-HBc Non-Reactive: Antibodies to HBV core antigen (anti-HBc)were not detected. HEPATITIS C AB Collection Time: 10/02/19 6:10 AM Result Value Ref Range Anti HCV Non-Reactive: Antibodies to HCV were not detected. AZCWT-Idk-Boczavri: Antibodies to HCV were not detected. HIV-1/2 ANTIGEN/ANTIBODY SCREEN Collection Time: 10/02/19 6:10 AM Result Value Ref Range HIV 1 and 2 AG AB Screen ZGFRY-Fqc-Ilolnjbs: Negative for HIV-1 Ag and HIV-1/2 specif [...] (10/02/19 0610) POC Glucose (Download): 92 (10/02/19 0884) Radiology and other Diagnostics Review: CHEST 2 [...] gland and retroperitoneum. Leading consideration is lymphoma. [place] disease and IgG-4 related disease are additional [...] noted. Staff name: Levar Coleman DO * Yisel Carlos MD - 10/02/2019 11:32 AM CDT ATTESTATION [...] and retroperitoneum. Leading con sideration is lymphoma. [place] disease and IgG-4 related disease are ad [...] results and continue work up as outpatient. -Caliente-Marker Panel Labs sent with elevated Aldolase, will follow up results as above. -Continue incentive spirometry as ordered and supplemental O2 as needed, if co ugh worsens, do CXR HTN - hold CECE, HCTZ - Blood pressure mildly elevated.On [id number] -BP control, less than 140/90. Labetalol prn, [...] % (10/01 914) SpO2 Pulse: 84 (09/30 1829) BP: (102-147)/(43-107) Temp: [36.4 C (97.5 F)-37.3 [...] Range HBsAg Non-Reactive: HBs antigen not detected VAUM-Rwb-Xfzqgawm: HBs antigen not detected HEPATITIS B CORE AB TOT (IGG+IGM) Collection Time: 10/02/19 6:10 AM Result Value Ref Range Anti HBc Total RUAUZ-Drj-Tuchxmji: Antibodies to HBV core antigen (anti-HBc Non-Reactive: Antibodies to HBV core antigen (anti-HBc)were not detected. HEPATITIS C AB Collection Time: 10/02/19 6:10 AM Result Value Ref Range Anti HCV Non-Reactive: Antibodies to HCV were not detected. NNRHD-Pgq-Exzdduqx: Antibodies to HCV were not detected. HIV-1/2 ANTIGEN/ANTIBODY SCREEN Collection Time: 10/02/19 6:10 AM Result Value Ref Range HIV 1 and 2 AG AB Screen AMNCU-Dij-Lntjuwti: Negative for HIV-1 Ag and HIV-1/2 specif [...] (10/02/19 0610) POC Glucose (Download): 92 (10/02/19 0853) Radiology and other Diagnostics Review: Pertinent radiology [...] results and continue workup as outpatient. > Caliente Myositis Marker Panel Labs sent with elevated [...] Range HBsAg Non-Reactive: HBs antigen not detected HDBV-Cxc-Nomlmrwf: HBs antigen not detected HEPATITIS B CORE AB TOT (IGG+IGM) Collection Time: 10/02/19 6:10 AM Result Value Ref Range Anti HBc Total ZFZIB-Sbj-Qozxgacm: Antibodies to HBV core antigen (anti-HBc Non-Reactive: Antibodies to HBV core antigen (anti-HBc)were not detected. HEPATITIS C AB Collection Time: 10/02/19 6:10 AM Result Value Ref Range Anti HCV Non-Reactive: Antibodies to HCV were not detected. JRTHL-Fft-Lkixlemv: Antibodies to HCV were not detected. HIV-1/2 ANTIGEN/ANTIBODY SCREEN Collection Time: 10/02/19 6:10 AM Result Value Ref Range HIV 1 and 2 AG AB Screen BMVJT-Abm-Ovegofcn: Negative for HIV-1 Ag and HIV-1/2 specif [...] (10/02/19 0610) POC Glucose (Download): 92 (10/02/19 0868) Radiology and other Diagnostics Review: Pertinent radiology reviewed. Ben Stinson MD Pager [phone] * Maris Erazo - 10/02/2019 9:11 AM [...] Score: 42.48 Basic Mobility CMS 0-100%: 36.99 [facility] G Code Modifier for Basic Mobility: [...] Cates MD Gastroenterology & Hepatology Fellow Pager [phone] * Oksana Nayeli - 10/01/2019 2:24 PM CDT CLINICAL NUTRITION [...] Current Oral Intake: NPO Estimated Calorie Needs: 7744-3122(28-32kcal/kg/desired wt) Estimated Protein Needs: 99-112(1.5-1.7g/kg/desired wt) Malnutrition [...] skin breakdown Time Frame: Throughout stay Nayeli Gandhi, MS, RD, [employer], LD Office: [phone] Voalte: [phone] * Kenji Peña, - 10/01/2019 1:27 PM CDT Renal Progress [...] gland and retroperitoneum. Leading consideration is lymphoma. [place] disease and IgG-4 related disease are additional [...] at another time Jade Fuchs RN, BSN, [facility] Wound Ostomy Nursing Consult Service Office: [phone] Pager: [phone] [facility] Unit: [phone] * Jie Rivero RN - 10/01/2019 12:40 [...] results and continue workup as outpatient. > [facility] Myositis Marker Panel Labs sent with elevated [...] tablet 1 mg, 1 mg, Oral, QDAY [May] heparin (porcine) PF syringe 5,000 Units, 5,000 Units, Subcutaneous, Q8H* [May] polyethylene glycol 3350 (MIRALAX) packet 34 g, [...] Hold] melatonin QHS PRN, nalox one PRN, [May] simethicone Q6H PRN, [May] sodium chloride 0.9% (NS) IP Dialysis PRN, [...] Pertinent radiology reviewed. Ben Stinson MD Pager [phone] * Yisel Carlos MD - 10/01/2019 10:24 [...] and retroperitoneum. Leading con sideration is lymphoma. [place] disease and IgG-4 related disease are ad [...] and continue ramon p as outpatient. - Caliente-Marker Panel Labs sent with elevated Aldolase, will [...] radiology reviewed. Jade Bejarano MS * Tess Becerra OT - 10/01/2019 9:46 AM CDT OCCUPATIONAL [...] in Shower;Shower Chair Prior Function Level Of [place]: Independent with ADLs and functional transfers;Independen t [...] home with her 88 y.o. sister and bpvjoct-ry-ssc. Indicates that they both use walkers and [...] Walker with wheels Therapist: MARBELLA Epps R/L [id number] Date: 10/01/2019 * Maris Erazo - 10/01/2019 [...] Cates MD Gastroenterology & Hepatology Fellow Pager [phone] * Kenji Peña DO - 09/30/2019 12:27 [...] Karine Peña D.O. Nephrology Fellow Pager #: [phone] This note was composed with Dragon Dictation. [...] Range Test EMTO, Electron Microscopy, Technical Only, [id number] Reference Lab PERFORMED AT [facility] Results Ref Lab Will be reported as an addendum in the pathology report. Specimen Mail [id number] Point of Care Testing (Last 24 hours) [...] results and continue workup as outpatient. > Caliente-Marker Panel Labs sent with elevated Aldolase, will [...] noted. ILD panel overall unremarkable. Will send Caliente myositis panel with elevated ald olase. Awaiting [...] tablet 1 mg, 1 mg, Oral, QDAY [May] heparin (porcine) PF syringe 5,000 Units, 5,000 Units, Subcutaneous, Q8H* [May] polyethylene glycol 3350 (MIRALAX) packet 17 g, 1 packet, Oral, QDAY [May] senna (SENOKOT) tablet 2 tablet, 2 tablet, Oral, QHS [MAY Hold] sodium bicarbonate tablet 650 mg, 650 mg, Oral, BID sodium chloride 0.9 % infusion, 1,000 mL, Intravenous, ONCE Continuous Infusions: PRN and Respiratory Meds:[MAY Hold] bisacodyL QDAY PRN, [May] calcium carbo vishal Q6H PRN, flumazeniL PRN, hydrALAZINE Q6H PRN, [MAY Hold] HYDROcodone/acetam inophen Q6H PRN, labetalol (NORMODYNE; TRANDATE) injection Q6H PRN, [MAY Hold] m elatonin QHS PRN, naloxone PRN, [May] simethicone Q6H PRN Review of Systems: Constitutional: [...] Pertinent radiology reviewed. Ben Stinson MD Pager [phone] * Maris Erazo - 09/30/2019 10:57 AM [...] and retroperitoneum. Leading con sideration is lymphoma. [place] disease and IgG-4 related disease are ad [...] and continue ramon p as outpatient. - Caliente-Marker Panel Labs sent with elevated Aldolase, will [...] Intake/Output Summary (Last 24 hours) at 09/30/2019 0910 Last data filed at 09/30/2019 0906 Gross [...] her pt. Belongings in a pink box. client operations manager called down to previous unit and I was told that they were unable to find the missing pair. * Tye Magdaleno RN - 09/29/2019 12:23 PM CDT Missing Dentures: Patient was transferred to unit 64 on 09/26 around 0. Omid Yang RN received patient and was notified of missing dentures. It is unclear whether the dentures were left in [facility] or procedure area 2 OR. This RN called [facility] and spoke with it engineering secretary Bola, and he was unable to find the missing Dentures. We will thompson ve patient call patient relations on Monday to find resolution of this issue. * Levar Coleman DO - 09/29/2019 12:19 PM CDT Renal Progress Note Mary Tim Admission Date: 09/17/2019 Assessment and Plan Principal Problem: Acute renal failure (ARF) ([facility]) Active Problems: Hyperkalemia High anion gap metabolic [...] Abd/pelvis without contrast Levar Coleman DO Pager [phone] Subjective HPI: Mary Tim is a 69 [...] dry. No rash noted. Labs Recent Labs 09/27/19 0411 09/28/19 0658 09/29/19 0551 NA 136* 137 139 K 4.4 4.4 4.9 CL 101 102 103 CO2 19* 20* 21 GAP 16* 15* 15* BUN 86* 81* 79* CR 6.74* 6.58* 6.57* GLU 93 82 85 CA 9.1 8.9 9.1 MG -- 1.9 1.9 PO4 -- 4.8* 5.0* Recent Labs 09/27/19 0411 09/28/19 0658 09/29/19 0551 WBC 5.5 5.9 6.5 [...] Invalid input(s): PC02A Levar Coleman DO Pager [phone] * Yisel Carlos MD - 09/29/2019 9:15 [...] Date: 09/29/2019 General Progress Note Name: Mary Tim Today's Date: 09/29/2019 Admission Date: 09/17/2019 LOS: [...] and retroperitoneum. Leading co nsideration is lymphoma. [place] disease and IgG-4 related disease are a [...] 24 Fernanda r Range BP: 149/67 (09/28 0550) Temp: 36.7 C (98.1 F) (09/28 649) Pulse: 95 (09/28 649) Respirations: 19 PER MINUTE (09/28 0550) SpO2: 93 % (09/28 649) BP: (139-154)/(65-71) [...] Review: Pertinent radiology reviewed. Jade Bejarano, * Yisel Carlos MD - 09/28/2019 5:49 [...] and retroperitoneum. Leading consi deration is lymphoma. [place] disease and IgG-4 related disease are marcy [...] for evaluation and management of persistent severe ROSAHN , anemia and grossly abnormal CT chest [...] 1315) Temp: 36.6 C (97.8 F) (09/27 131) Pulse: 88 (09/27 131) Respirations: 18 PER MINUTE (09/27 1315) SpO2: 95 % (09/27 131) SpO2 Pulse: 107 (09/26 1815) BP: (129-166)/(53-90) [...] radiology reviewed. Yisel Carlos MD * Levar Coleman, - 09/28/2019 1:16 PM CDT Renal Progress [...] Hyperkalemia - improved Levar Coleman DO Pager [phone] Subjective HPI: Mary Tim is a 69 [...] MEDS lactated ringers infusion 50 mL/hr at 09/27/192132 Prn bisacodyL QDAY PRN, calcium carbonate Q6H PRN 1,000 mg at 09/19/197, h ydrALAZINE Q6H PRN Stopped at 09/26/192025, HYDROcodone/acetaminophen Q6H PRN 1 tablet at 09/28/19 0502, melatonin QHS PRN 5 mg at 09/27/19 2148, simethicone Q 6H PRN 80 mg at 09/24/19 2205 Physical Exam Vital Signs: Last Filed In 24 Hours Vital Signs: 24 Hour Range BP: 129/53 (09/27 899) Temp: 36.3 C (97.3 F) (09/27 899) Pulse: 83 (09/27 899) Respirations: 18 PER MINUTE (09/27 899) SpO2: 96 % (07/18 0900) SpO2 Pulse: 107 (09/26 1815) BP: (129-169)/(53-90) Temp: [36.3 C (97.3 F)-37 C (98.6 F)] Pulse: [79-113] Respirations: [18 PER MINUTE-26 PER MINUTE] SpO2: [92 %-98 %] Intensity Pain Scale (Self Report): 5 (09/28/19 0800) Vitals: 09/17/190 09/19/19 1411 Weight: 77 kg [...] on SCr of 6.58 mg/dL (H)). Vitals: 09/17/190 09/19/19 1411 Weight: 77 kg (169 lb 12.1 oz) 76.7 kg (169 lb) No results for input(s): PHART, PO2ART in the last 72 hours. Invalid input(s): PC02A Levar Coleman DO Pager [phone] * Omid Yang RN - 09/27/2019 7:40 PM CDT Patient arrived to room # (1098) via cart accompanied by transport. Patient diane sferred to the bed with assistance. Bedside safety checks completed. Initial pat ient assessment completed. Refer to flowsheet for details. Admission skin assessment completed with: Elba RN and ROLAND Ventura. Pressure injury present on [...] and wound team cons ulted * Kenji Peña DO - 09/27/2019 6:13 PM CDT Renal Progress [...] MN Monday - Please hold anticoagulation Monday night prior to renal biopsy - Patient will [...] time Medications MEDSamitriptyline/gabapentin/emu oil(#), , Topical, Q8H [MAR Hold] amLODIPine, 5 mg, Oral, QDAY [MAR Hold] cyanocobalamin, 1,000 mcg, Oral, QDAY [MAR Hold] folic acid, 1 mg, Oral, QDAY [MAR Hold] heparin (porcine), 5,000 Units, Subcutaneous, Q8H* [MAR Hold] polyethylene glycol 3350, 1 packet, Oral, QDAY [MAR Hold] senna, 2 tablet, Oral, QHS [MAR Hold] sodium bicarbonate, 650 mg, Oral, BID IV MEDS lactated ringers infusion sodium chloride 0.45% (1/2NS) with sodium bicarbonate 100 mEq 1,100 mL IV in fusion 100 mL/hr at 09/27/19 0948 Prn [MAR Hold] bisacodyL QDAY PRN, [MAR Hold] calcium carbonate Q6H PRN 1,000 mg at 09/19/19 2327, hydrALAZINE Q6H PRN Stopped at 09/26/192025, [MAY Hold] HY DROcodone/acetaminophen Q6H PRN 1 [...] Scale (Self Report): 5 (09/27/19 1511) Vitals: 09/17/19 2350 09/19/19 1411 Weight: 77 [...] dry. No rash noted. Labs Recent Labs 09/25/19 0400 09/26/19 1126 09/27/19 0411 NA 136* 135* 136* [...] on SCr of 6.74 mg/dL (H)). Vitals: 09/17/19 2350 09/19/19 1411 [...] CT abdomen pelvis; concern for systemic disease sandoval IgG-4 related di sease -CT abdomen pelvis was done for evaluation of liver lesion seen on CT chest. -Patient has minimal symptoms of vague abdominal discomfort and constipation -CT abdomin and pelvis showed multiple findings Abnormalities involving the nelia er, gallbladder, kidneys, right adrenal gland and retroperitoneum. Leading consi deration is lymphoma. [place] disease and IgG-4 related disease are marcy [...] Jade Bejarano MS * Elsy De La Garza, CRISTI - 09/27/2019 11:18 AM CDT OCCUPATIONAL THERAPY [...] in Shower;Shower Chair Prior Function Level Of [place]: Independent with ADLs and functional transfers;Independen t [...] With: Bathing;Dressing;All home funct ioning ADLs Therapist: EDWIN Dahl/[place] [id number] Date: 09/27/2019 * Paz Vicente - 09/27/2019 [...] Therapist: Paz Vicente Date: 09/27/2019 * Kristi Denton RN - 09/27/2019 6:30 AM CDT 0425: [...] within reach. Will continue to monitor. * Tatianna Perez RN - 09/26/2019 6:58 PM CDT Pt Sr on tele. VSS. Tolerating RA, UOP adequate, +BM. Pain tolerated on current regimen. 1700: Orders received to place Zambrano catheter. Team paged to confirm order d/t p t voiding adequately throughout the day and minimal post-void residual. Orders c onfirmed and Zambrano catheter placed by staff. Plan for NPO at 0000. * Carolin Paula MD - 09/26/2019 2:16 PM CDT [...] and retroperitoneum. Leading consi deration is lymphoma. [place] disease and IgG-4 related disease are marcy [...] 24 Fernanda r Range BP: 151/63 (09/25 1137) Temp: 36.5 C (97.7 F) (09/25 1137) Pulse: 73 (09/25 1137) Respirations: 16 PER MINUTE (09/25 1137) SpO2: 96 % (09/25 1137) BP: (138-169)/(61-81) Temp: [36.4 C (97.6 F)-37.1 [...] leural effusions. #FOLLOW Carolin Paula MD Pager [phone] * Levar Coleman DO - 09/26/2019 12:46 [...] Hyperkalemia - improved Levar Coleman DO Pager [phone] Subjective HPI: Mary Tim is a 69 [...] (09/25 1137) Respirations: 16 PER MINUTE (09/25 1137) SpO2: 96 % (09/25 1137) SpO2 Pulse: 73 (09/24 1336) BP: (108-169)/(61-91) [...] No rash noted. Labs Recent Labs 09/24/19 0609/25/19 0400 09/26/19 1126 NA 134* 136* 135* K 4.0 4.0 4.0 CL 97* 101 97* CO2 22 23 21 GAP 15* 12 17* BUN 88* 86* 87* CR 5.93* 5.99* 6.33* GLU 89 79 88 CA 8.6 8.4* 9.2 ALBUMIN 2.8* 2.8* -- Recent Labs 09/24/1962909/25/19 0400 09/26/19 1126 WBC 6.9 5.7 6.5 [...] Invalid input(s): PC02A Levar Coleman DO Pager [phone] * Delphine Galvan DO - 09/26/2019 8:22 AM CDT Pulmonary Consult Note Admission Date: 09/17/2019 LOS: 8 Principal Problem: Acute renal failure (ARF) ([facility]) Active Problems: Hyperkalemia High anion gap metabolic acidosis UTI (urinary tract infection) Physical debility ILD (interstitial lung disease) ([facility]) Anemia Reason for Consult: "admitted with fatigue, [...] Requested CXR, CT A/P, spinal imaging from [facility] in [place], [place]. Recommendations > Patient agreeable to proceed with bronchoscopy with EBUS and BAL, will plan for tomorrow > Follow ILD labs > [facility] [place] [place] Patient seen and recommendations have been formulated with Dr. Estrada. Please s ee attestation for possible additional recommendations. Delphine Galvan DO Internal Medicine Resident | PGY-2 Pager [phone] or Voalte Me Subjective: She reports she [...] (97.9 F) (09/25 728) Pulse: 72 (09/25 728) Respirations: 16 PER MINUTE (09/25 728) SpO2: [...] Serological workup with ILD panel pending. Sanjay Estraad MD 09/26/2019 * Nayeli Colby RN - [...] - Avoid nephrotoxins Noble Perez MD Pager [phone] Subjective Mary Tim is a 69 y.o. [...] 2205, simethicone Q6H PRN 80 mg at 09/24/19 [...] cyanosis Skin: no rash Labs: Recent Labs 09/23/1953609/24/19 0630 09/25/19 0400 NA 135* 134* 136* [...] CECE, HCTZ Chronic Back Pain - reduced ORGANIC SECTION TECHNICAL LEAD hydrocodone - stop topical voltraren - emu [...] inpatient today. Patient agreeable for rehab. To assi st with placementSW FEN: No IVF, BMP Q, [...] Signs: 24 Fernanda r Range BP: 143/75 (09/25 1251) Temp: 36.8 C (98.3 F) (09/25 1251) Pulse: 75 (09/24 1252) Respirations: 21 PER MINUTE (09/24 1252) SpO2: 97 % (09/25 1251) SpO2 Pulse: 74 (09/25 1251) BP: (106-157)/(66-82) Temp: [35.8 C (96.5 F)-37.1 [...] leural effusions. #FOLLOW Carolin Paula MD Pager [phone] * Yenifer Nayeli, PT - 09/25/2019 1:39 PM CDT PHYSICAL [...] Discharge Recommendations Recommendation: Inpatient setting Therapist: Nayeli Street PT, DPT Date: 09/25/2019 * Nasir Sahu, OT - 09/25/2019 8:45 AM CDT OCCUPATIONAL [...] in Shower;Shower Chair Prior Function Level Of [place]: Independent with ADLs and functional transfers;Independen t [...] Equipment: Walker with wheels Therapist: EDWIN Leblanc/[place] [id number] Date: 09/25/2019 * Lisa Marmolejo RN - [...] CECE, HCTZ Chronic Back Pain - reduced ORGANIC SECTION TECHNICAL LEAD hydrocodone - stop topical voltraren - emu [...] (09/23 1308) Respirations: 19 PER MINUTE (09/23 08) SpO2: 94 % (09/23 131) SpO2 Pulse: 89 (09/23 131) BP: (128-157)/(58-133) Temp: [37.1 C (98.7 F)-37.3 [...] Pertinent radiology reviewed. Carolin Paula MD Pager [phone] * Noble Perez MD - 09/24/2019 1:34 [...] - Avoid nephrotoxins Noble Perez MD Pager [phone] Subjective Mary Tim is a 69 y.o. [...] requires inpatient level of care. However, typ ical progression for patient condition would anticipate home with assistance at time of discharge. Therapist: Nayeli Street PT, DPT Date: 09/24/2019 * Magi Schmid [...] CECE, HCTZ Chronic Back Pain - reduced ORGANIC SECTION TECHNICAL LEAD hydrocodone - stop topical voltraren - emu [...] Signs: 24 Fernanda r Range BP: 131/53 (09/23 851) Temp: 36.8 [...] Pertinent radiology reviewed. Carolin Paula MD Pager [phone] * Noble Perez MD - 09/23/2019 11:49 [...] - Avoid nephrotoxins Noble Perez MD Pager [phone] Subjective Mary Tim is a 69 y.o. [...] Pain Scale (Self Report): 5 (09/23/19 08) Intake/Output Summary (Last 24 hours) at 09/23/2019 1149 Last data filed at 09/23/2019 0812 Gross per 24 hour Intake 222 ml Output 600 ml Net -378 ml Vitals: 09/17/19 2350 09/19/19 1411 Weight: [...] Skin: no rash Labs: Recent Labs 09/21/19 0629 09/22/19 0500 09/23/19 0537 NA 139 135* 135* K 4.2 3.8 3.9 CL 97* 96* 97* CO2 26 23 22 GAP 16* 16* 16* BUN 92* 93* 89* CR 6.58* 5.82* 6.02* GLU 86 85 87 CA 9.0 8.6 8.9 ALBUMIN 3.0* 2.8* 3.0* Recent Labs 09/21/19 0629 09/22/19 0500 09/23/19 0537 WBC 6.3 6.4 7.0 HGB 8.7* 8.0* 8.3* HCT 25.7* 23.4* 23.7* PLTCT 272 253 232 AST 20 16 18 ALT 24 16 14 ALKPHOS 152* 119* 107 Estimated Creatinine Clearance: 8.8 mL/min (A) (based on SCr of 6.02 mg/dL (H)). Vitals: 09/17/19 2350 09/19/19 1411 [...] CECE, HCTZ Chronic Back Pain - reduced ORGANIC SECTION TECHNICAL LEAD hydrocodone - stop topical voltraren - emu [...] Pertinent radiology reviewed. Carolin Paula MD Pager [phone] * Carolin Paula MD - 09/21/2019 11:17 [...] CECE, HCTZ Chronic Back Pain - reduced ORGANIC SECTION TECHNICAL LEAD hydrocodone - stop topical voltraren - emu [...] Pertinent radiology reviewed. Carolin Paula MD Pager [phone] * Noble Perez MD - 09/20/2019 2:13 [...] acement for PT/OT. Noble Perez MD Pager [phone] Subjective Mary Tim is a 69 y.o. [...] hours. Invalid input(s): PC02A * Yovana Falcon, - 09/20/2019 5:58 AM CDT General Progress [...] CECE, HCTZ Chronic Back Pain - reduced ORGANIC SECTION TECHNICAL LEAD hydrocodone - stop topical voltraren - emu [...] Pertinent radiology reviewed. Yovana Falcon DO Pager [phone] * Noble Perez MD - 09/19/2019 10:43 [...] a urine culture Noble Perez MD Pager [phone] Subjective Mary Tim is a 69 y.o. [...] Intensity Pain Scale (Self Report): 7 (09/18/192039) Intake/Output Summary (Last 24 hours) at 09/19/2019 1044 Last data filed at 09/19/2019 0700 Gross per 24 hour Intake 2900 ml Output 625 ml Net 2275 ml Vitals: 09/17/192349 Weight: 77 kg (169 lb [...] 09/18/19 0954 09/18/19 1730 09/18/19 1735 09/19/19 07 NA 141 140 -- 139 138 141 [...] 1.67 -- -- -- Recent Labs 09/18/19 0709/18/19 0954 09/19/19 07 WBC 7.4 -- 6.8 HGB 8.8* -- 8.3* HCT 25.9* -- 23.8* PLTCT 315 -- 289 INR -- 1.4* -- PTT -- 27.5 -- AST 11 -- 17 ALT 11 -- 9 ALKPHOS 105 -- 95 Estimated Creatinine Clearance: 8.2 mL/min (A) (based on SCr of 6.49 mg/dL (H)). Vitals: 09/17/192349 Weight: 77 kg [...] Patient already owns necessary equipment. Therapist Mckinley Rosen, PT Date 09/19/2019 * Yovana Falcon, DO [...] CECE, HCTZ Chronic Back Pain - reduced ORGANIC SECTION TECHNICAL LEAD hydrocodone - stop topical voltraren - emu [...] mL IV infusion 100 m L/hr at 09/18/19 2159 PRN and Respiratory Meds:calcium carbonate Q6H PRN, [...] other Diagnostics Review: Pertinent radiology reviewed. Yovana Faclon DO Pager [phone] * Carol Anderson RN - 09/18/2019 3:37 [...] able in her coccyx. INTERVENTIONS: * Carol Anderson, ROLAND - 09/18/2019 12:10 AM CDT Pt arrived to the unit at 2350 via cart accompanied by EMS, Room still dirty, p t transferred to cart. NAC/Bed placement aware of pt in the hallway. Paged Fernanda sekeeping and just arrived here to clean the room. AOD was paged. Pt alert/loy ented. documented in this encounter H&P Notes * Madeleine Choe, MSN,FINGERNAIL TECHNICIAN - 09/30/2019 10:24 AM CDT Pre Procedure History and Physical/Sedation Plan Procedure Date: 09/30/2019 Planned Procedure(s): [place] kidney biopsy Indication for exam: Nephritis Chief [...] injection 1 mg, 1 mg, Intravenous, ONCE [MAR Hold] polyethylene glycol 3350 (MIRALAX) packet [...] previous H&P performed on 09/29/19. Jennifer Choe, MSN,FINGERNAIL TECHNICIAN Pager [phone] * Milo Gutierrez, - 09/27/2019 4:29 PM CDT History and [...] attempt to get imaging from hospital in [facility], she reports chest x-ray on presentation on 09/[address] a CT chest approximately 5 years ago. > May consider bronchoscopy with biopsy depending on PFTs and review of outside imaging Patient seen and recommendations have been formulated with Dr. Estrada. Please s ee attestation for possible additional recommendations. Delphine Galvan DO Internal Medicine Resident | PGY-2 Pager [phone] or Voalte Ga History of Present Illness: Mary Tim is a 69 y.o. female with past medica l history of hypertension, cervical C3-C7 and lumbar L3-L5 spinal fusions, prese nted to an OSH with progressive weakness, fatigue, dyspnea and was found to have acute renal failure with hyperkalemia, hyperphosphatemia, anion gap metabolic a cidosis. She was transferred to [facility] on 09/17/2019. Renal function has slowly im [...] reports that she has been ambulating the [facility] physical therapy and denies dyspnea. 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 She reports [...] Signs: 24 Hour Range BP: 151/81 (09/24 1612) Temp: 36.9 C (98.4 F) (09/24 161) Pulse: 68 (09/24 1425) Respirations: 17 PER [...] Sanjay Estrada MD 09/25/2019 * Yovana Falcon, - 09/18/2019 12:20 AM CDT ATTESTATION I personally performed the ruiz portions of the E/M visit, reviewed my colleague' s documentation of history, physical exam, assessment, and treatment plan and co ncur unless otherwise noted. Staff name: Yovana Falcon DO Date: 09/18/2019 Team Pager [phone] Admission History and Physical Examination Name: Mary [...] supplemental potassium - Direct transfer from [facility] - Baseline Cr 1.24 back in Apr 2019 - Cr 7.87 at OSH >> Cr 7.32 on admission to - with reported PMHx of thyroid abnormalities - Reported FamHx of lupus (father), ESRD requiring peritoneal dialysis (mother) Plan: [] Increase PO intake Start D5 150meq bicarb at 100/hr [] US kidney with doppler [] Bladder scan [] Urine electrolytes [] Hold ORGANIC SECTION TECHNICAL LEAD Enalapril and Nabumetone [] Consider nephro consult if Cr does not improve - consulted [] Avoid nephrotoxins and NSAIDS [] Renally dose medications [] BMP BID #Hyperkalemia, improved - K 6.1 at OSH - K 5.6 on admission - Tx at [facility] included: 1L IV NS, 50ml D50W, [...] to 140-150s on admission Plan: [] Holding ORGANIC SECTION TECHNICAL LEAD Enalapril due to ARF [] Monitor BPs [...] #Lumbar spine surgery/fusion L3-L5 (2014) [] Continue ORGANIC SECTION TECHNICAL LEAD Hydrocodone/Acetaminophen [] Continue ORGANIC SECTION TECHNICAL LEAD Diclofenac gel FEN: - IVF LR 2L - monitor volume status - Replace lytes prn - Renal Diet PPx: SCDs, SQH Dispo: Med Private C Code: FULL Yovana Falcon, DO Internal Medicine, PGY-1 Available on Voalte Pager: [phone] *Senior Attestation Patient seen and examined with [...] 7.32, phosphorus 6.5, hemoglo bin 8.8 VBG 7. 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 She also endorses decreased appetite over the past month w ith associated weight loss of approximately 15 pounds. Additionally endorses occ asional nausea with no vomiting and chronic back pain. Denies F/C, night sweats, myalgias, arthralgias, skin changes, CP, orthopnea, PND, diarrhea, constipation , and urinary changes. The patient initially presented for her symptoms on 09/16 to [facility] ED ([place], [place]). Workup at [facility] included: EKG, ABG, U A. Her renal [...] file Gets together: Not on file Attends sikh service: Not on file Active member of [...] (09/17 912) Height: 162.6 cm (64") (09/16 2349) BP: (146-157)/(70-77) Temp: [36.4 C (97.6 F)-36.9 [...] Sat-Venous 75.4 (H) 55 - 71 % Cuefswnujiy-XSN-Sro 13.6 MMOL/L BASIC METABOLIC PANEL Collection Time: [...] Range Color,UA YELLOW Turbidity,UA CLEAR CLEAR-CLEAR Specific [place]-Urine 1.014 1.003 - 1.035 pH,UA 5.0 5.0 [...] Internal Medicine, PGY-1 Available on Voalte Pager: [phone] documented in this encounter Procedure Notes * Sri Knutson RN - 10/10/2019 3:02 PM CDT Associated Order(s): HEMODIALYSIS INPATIENT; HEMODIALYSIS DATE 1320 Pt from IR to [facility] 2 s/p lumbar puncture. Placed on telemetry [...] RNMarcus RN at 1230. [facility] [place] [facility].. Patient ID verified and consent signed: [...] es timated time off. TX END TIME: 1807. Net UF: 1L. End Weight: 78.2 kg. [...] Report called to primary nurseGinger RN * Nasir Monreal RN - 10/03/2019 8:20 AM CDT Associated Order(s): HEMODIALYSIS INPATIENT Hemodialysis Procedure Report Report recieved from Primary Care RNSergio RN at 0703. Hemodialysis treatment performed [facility] in [facility] [place] 6.. Patient ID verified and consent signed: [...] at 1215. Pt arrived via w[facility]c from [facility] and attached to nbp, oxcemitry, and cardiac [...] CDT Associated Order(s): HEMODIALYSIS DATE Pt to [facility] Dialysis bay 3 via bed by cooking appliance repair technician, placed on monitoring and evaluation advisor, Rt SC CVC accessed and tx initiated per Dr mobley. Report from floor RN. UFG 1L Pt tolerated tx well, 1L NET UF, Report called to floor RN documented in this encounter Consult Notes * Ketty Posada, MSN,FINGERNAIL TECHNICIAN - 10/09/2019 12:34 PM CDT Associated Order(s): [...] Vital Signs: 24 Hour Range BP: 128/60 (10/09 1199) Temp: 36.7 C (98 F) (10/09 1199) Pulse: 94 (10/09 1199) Respirations: 20 PER MINUTE (10/09 1199) SpO2: 95 % (10/09 1199) BP: (120-136)/(50-63) [...] previous H&P performed on 09/30/2019. Ketty Posada, JUDD,FINGERNAIL TECHNICIAN Pager [phone] * Jacob Contreras APRN-[employer] [employer] B[employer] KILN - 10/06/2019 1:55 PM CDT Associated Order(s): [...] 134) Temp: 36.8 C (98.2 F) (10/05 134) Pulse: 80 (10/05 134) Respirations: 16 PER MINUTE (10/05 134) SpO2: 96 % (10/05 134) BP: (93-137)/(43-65) Temp: [36.3 C (97.3 F)-36.9 [...] from the previous H&P performed on 10/05/19. Jacob Contreras APRN-[employer]UR[employer] BEEH[employer] KILN Pager [phone] * Daily TORO Deal - 10/03/2019 12:37 PM CDT Associated Order(s): [...] has been reviewed and added onto the [facility] IR schedule for today. Chest port will be placed in [place] [facility] tomorrow. - For sedation purposes, please keep NPO prior to procedure. May take PO medicat ions with sips of water. We appreciate being able to participate in this patient's care. Please page with any questions or concerns. Jennifer Choe, MSN,FINGERNAIL TECHNICIAN Pgr [phone] IR Team Pager [phone] (After-hours and Weekends) Procedure: Bone marrow biopsy [...] Units, 5,000 Units, Subcutaneous, Q8H* [MAR Hold] mineral oil/hydrophilic petrolatum (AQUAPHOR, DERMAPHOR) topical oint ment, , Topical, QDAY [MAR Hold] polyethylene glycol 3350 (MIRALAX) packet 34 g, 2 packet, Oral, QDAY [MAR Hold] senna (SENOKOT) tablet 2 tablet, 2 tablet, Oral, QHS [MAR Hold] sodium bicarbonate tablet 650 mg, 650 mg, Oral, BID [MAR Hold] vitamins, multi B, C, Zn & folate (Renal) (NEPHPLEX RX) tablet 1 tablet, 1 tablet, Oral, QDAY Continuous Infusions: PRN and Respiratory Meds:[MAY Hold] bisacodyL QDAY PRN, [MAR Hold] calcium carbo vishal Q6H PRN, hydrALAZINE Q6H PRN, [MAR Hold] HYDROcodone/acetaminophen Q6H PRN, labetalol (NORMODYNE; TRANDATE) injection Q6H PRN, [MAR Hold] melatonin QHS PRN, [MAY Hold] simethicone Q6H PRN, [MAY Hold] vitamin A & D PRN Objective Vital Signs: Last Filed Vital Signs: 24 Fernanda r Range BP: 134/56 (10/02 1100) Temp: 36.9 C (98.4 F) (10/02 1100) Pulse: 94 (10/02 1100) Respirations: 24 PER MINUTE (10/02 1100) SpO2: 92 % (10/02 1230) SpO2 Pulse: 98 (10/02 1230) Height: 162.6 cm (64.02") (10/02 1100) BP: (100-147)/(48-85) Temp: [36.4 C (97.5 F)-36.9 [...] Assessment/Plan: Principal Problem: Acute renal failure (ARF) ([facility]) Active Problems: Hyperkalemia High anion gap metabolic acidosis UTI (urinary tract infection) Physical debility ILD (interstitial lung disease) ([facility]) Anemia Abnormal CT of the chest Abnormal [...] None 10/02/2019 10:00 AM Wound Base Assessment Moist;[place] 10/02/2019 10:00 AM Surrounding Skin Assessment Dry;Intact 10/02/2019 10:00 AM Wound Length (cm) 0.5 cm 10/02/2019 10:00 AM Wound Width (cm) 0.5 cm 10/02/2019 10:00 AM Wound Depth (cm) 0.1 cm 10/02/2019 10:00 AM Wound Surface Area (cm^2) 0.25 cm^2 10/02/2019 10:00 AM Wound Volume (cm^3) 0.02 cm^3 10/02/2019 10:00 AM Wound team asked to asses wound on right inner buttock- [place] moist round ulcerations- manju wound dry and intact RECOMMEND: Continue A&D ointment ( as previously ordered for right buttock ) Wound team will sign off Jade Fuchs RN, BSN, [facility] Wound Ostomy Nursing Consult Service Office: [phone] Pager: [phone] [facility] Unit: [id number] * Bebeto Wagner MD - 10/01/2019 5:36 [...] as we get more information- will touch [facility] pathology tomorrow in AM. Bebeto Wagner MD Date: 10/01/2019 PGY 4 Hematology Oncology Available on Voalte Patient seen and staffed with Dr. Kemp [...] final path reports not a vailable on [facility]. Patient states prior to her admission to [...] conversation, and thought she came to the [facility] only 5 days ago, however she [...] 09/27/2019 Performed by Branden Choe MD at [facility] OR BRONCHOSCOPY WITH BRONCHIAL ALVEOLAR LAVAGE - FLEXIBLE Left 09/27/2019 Performed by Branden Choe MD at [facility] OR BRONCHOSCOPY WITH ENDOBRONCHIAL ULTRASOUND GUIDED TRANSTRACHEAL/ TRANSBRONCH IAL SAMPLING - 3 OR MORE MEDIASTINAL/ HILAR LYMPH NODE STATIONS/ STRUCTURE - FLE XIBLE Bilateral 09/27/2019 Performed by Branden Choe MD at [facility] OR BRONCHOSCOPY WITH BRONCHIAL/ ENDOBRONCHIAL BIOPSY - FLEXIBLE Bilateral 2019 Performed by Branden Choe MD at [facility] OR APPENDECTOMY CERVICAL FUSION LUMBAR FUSION [...] Kemp MD Date: 10/01/2019 * Bhavin Betts APRN-[employer] KILN - 10/01/2019 9:48 AM CDT Associated Order(s): [...] page with any questions or concerns. Bhavin Betts APRN-[employer] [facility] KILN Pgr [phone] IR Team Pager [phone] (After-hours and Weekends) * Jade Fuchs RN [...] 09/30/2019 2:00 PM Wound Base Assessment Pale [place];Yellow 09/30/2019 2:00 PM Surrounding Skin Assessment Intact [...] will sign off Jade Fuchs RN, BSN, [facility] Wound Ostomy Nursing Consult Service Office: [phone] Pager: [phone] [facility] Unit: [id number] * Bhavin Betts I, FINGERNAIL TECHNICIAN-[employer] KILN - 09/29/2019 2:30 PM CDT Associated Order(s): [...] has been reviewed and added onto the [facility] IR schedule for 09/30/19. - For sedation purposes, please keep NPO prior to procedure. May take PO medicat ions with sips of water. We appreciate being able to participate in this patient's care. Please page with any questions or concerns. Bhavin Betts APRN-[employer] [facility] KILN Pgr [phone] IR Team Pager [phone] (After-hours and Weekends) Procedure: US guided [place] renal Bx IR Pre Procedure Notes: Consent [...] Cates MD Gastroenterology & Hepatology Fellow Pager [phone] HPI/Subjective: Mary Tim is a 69 y.o. [...] attempt to get imaging from hospital in [facility], she reports chest x-ray on presentation on 09/[address] a CT chest approximately 5 years ago. > May consider bronchoscopy with biopsy depending on PFTs and review of outside imaging Patient seen and recommendations have been formulated with Dr. Estrada. Please s ee attestation for possible additional recommendations. Delphine Galvan DO Internal Medicine Resident | PGY-2 Pager [phone] or Voalte Me History of Present Illness: Mary Tim is a 69 y.o. female with past medica l history of hypertension, cervical C3-C7 and lumbar L3-L5 spinal fusions, prese nted to an OSH with progressive weakness, fatigue, dyspnea and was found to have acute renal failure with hyperkalemia, hyperphosphatemia, anion gap metabolic a cidosis. She was transferred to [facility] on 09/17/2019. Renal function has slowly im [...] reports that she has been ambulating the [facility] physical therapy and denies dyspnea. 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. She reports she has had no known [...] results. Sanjay Estrada MD 09/25/2019 * Mary Treviño, ROLAND - 09/24/2019 12:20 PM CDT Associated Order(s): [...] Image 09/24/2019 12:00 PM Wound Base Assessment [place];Dry 09/24/2019 12:00 PM Surrounding Skin Assessment [place];Intact 09/24/2019 12:00 PM Wound Site Closure Open [...] Thank you. John Treviño RN, BSN, CHRN, [facility] Wound/Ostomy Nursing Consult Service Hyperbaric Medicine Office: [phone] After Hours Wound/Ostomy Team Pager: [phone] * Noble Perez MD - 09/18/2019 3:31 PM CDT Associated Order(s): CONSULT NEPHROLOGY PHYSICIAN Renal Consult aMry Tim Admission Date: 09/17/2019 Assessment and Plan [...] - Avoid nephrotoxins Noble Perez MD Pager [phone] History Reason for Consult: ROSHAN HPI: Mary [...] 7.8 mg/dl at the outside hospital in [place]. With some volume expansion the renal function [...] (09/17 1232) Respirations: 20 PER MINUTE (09/17 123) SpO2: 98 % (09/17 123) Height: 162.6 cm (64") (09/16 2349) BP: (142-157)/(63-77) Temp: [36.4 C (97.6 F)-36.9 C (98.4 F)] Pulse: [79-108] Respirations: [18 PER MINUTE-20 PER MINUTE] SpO2: [97 %-99 %] Vitals: 09/17/19 2350 Weight: 77 kg (169 [...] on SCr of 6.99 mg/dL (H)). Vitals: 09/17/19 2350 Weight: 77 kg (169 lb 12.1 oz) No results for input(s): PHART, PO2ART in the last 72 hours. Invalid input(s): PC02A Radiology Pertinent radiology reviewed. documented in this encounter Miscellaneous Notes * Case Mgmt DC Plan - Jennifer Henry - 10/11/2019 11:39 AM CDT QUILLER HAND note: Transfer packet prepared and placed inpatient wall unit. Jennifer Henry Newborn Hearing Screener Locker Room Supervisor * Case Mgmt DC Plan - Zakia Stinson RN - 10/11/2019 10:22 AM CDT Case Management Progress Note NAME:Mary Tim :1950 AGE: 69 y.o. ADMISSION DATE: 09/17/2019 DAYS ADMITTED: LOS: 23 days Todays Date: 10/11/2019 Plan * Patient is medically stable and ready for DC to SNF with OP HD. Interventions ? Support Support: Pt/Family Updates re:POC or DC Plan * JENELLEM reviewed EMR and discussed patient with team during huddle this morning. * Pt to DC to facility today with OP HD in [place]. Nasreen INIGUEZ set transpor t for 12:00 PM. JENELLEM updated bedside RNCeferino of DC time. * Will continue to follow with Hematology team through DC. ? Info or Referral Information or Referral to Community Resources: No Needs Identified ? Discharge Planning Discharge Planning: OP HD or PD * Inpatient HD flowsheets faxed to [facility] P: / F: . Pt has first [...] Address Phone Number Fax Numb er [facility] Selected Senior Living [address] [facility] [address] [phone] Home Care No service has been selected for the patient. Dialysis/Infusion - Selection Complete Service Provider Request Status Selected Services Address Phone Number Fax Numb er [facility] Selected In-Center Dialysis [facility] [phone] Zakia Stinson RN, BSN Nurse Newborn Hearing ScreenerReporter / Surgical Non-Transplant Pager: * Case Mgmt DC Plan - Aggie Flores - 10/11/2019 7:52 AM CDT Case Management Progress Note NAME:Mary Tim :1950 AGE: 69 y.o. ADMISSION DATE: 09/17/2019 DAYS ADMITTED: LOS: 23 days Todays Date: 10/11/2019 Plan Pt to discharge at 1200 today via [place] [employer] wheelchair van to [facility] [place] [place]. PHONE NUMBER FOR [email or web address]: [phone]. Interventions ? Support Support: Pt/Family Updates re:POC or DC Plan ? Info or Referral Information or Referral to Community Resources: No Needs Identified ? Discharge Planning Discharge Planning: Transportation Arrangements and/or Resources, Skilled Nursi ng Facility UPDATE Josi at [facility] informed MARTITA that auth was received. MARTITA arranged wheelchair van (no oxygen required now) with Piotr at [employer], . MARTITA updated Josi that pt will [...] of plan and provided RN report number [phone]. QUILLER HAND delivered transfer packet and on-site MARTITA Rios agreed to fax discharge orders and scripts to [facility]. MARTITA appreciates assistance. PREVIOUS NOTES SW received reply from Martín Leslie at [facility] stating that insurance auth request h ad not been submitted by [facility] until 1050 yesterday and clinical notes were receiv ed at 1201. She stated that it will be reviewed today. MARTITA notified Josi (cell [phone]) at [facility] that insurance stated they had not received her request until midday yesterday. MARTITA asked if pt can be admitted over the weekend, if auth doesn't come through today. 0752 MARTITA Voalted PT/OT to ask if they [...] service has been selected for the patient. KEMI Destination - Selection Complete Service Provider Request Status Selected Services Address Phone Number Fax Numb er [facility] Selected Senior Living [address] [facility] [address] [phone] Home Care No service has been selected for the patient. Dialysis/Infusion - Selection Complete Service Provider Request Status Selected Services Address Phone Number Fax Numb er [facility] Selected In-Center Dialysis [facility] [address] [phone] Julia Flores [facility] Sheetrock Applicator [phone] (pager); Voalte Me * Procedures (Immed Post [...] Date: 10/10/2019 Plan Anticipate discharge tomorrow to [facility] [place], [place], pending insurance auth and transportation arrangements. Interventions ? Support Support: Pt/Family Updates re:POC or DC Plan ? Info or Referral Information or Referral to Community Resources: No Needs Identified ? Discharge Planning Discharge Planning: Transportation Arrangements and/or Resources, Skilled Nursi ng Facility UPDATE 1700: MARTITA called pt and [...] pt tomorrow. MARTITA sent secure email to [facility] [employer] contacts to ask if they can provide update on auth request. UPDATE 1330: MARTITA called Josi ([phone], cell) at [facility] for update . No auth received yet. Josi stated that SNF will not accept pt after 1700 today. [...] by Stacia Welch, patient relations rep, that [facility] will pay for replacement dentures and that she is discussing details with pt. MARTITA notified team via Voalte. 1052: MARTITA left msg for Josi at [facility] informing her that pt is expected to be r [place] at about 1700 today. MARTITA asked whether insurance auth has been received and how late they can receive pt tonight. SW to follow up. MATRITA returned a call to pt's sister, Ana Morris, , to inform her that pt relations will pay for pt's dentures. MARTITA also discussed with sister the discharge plan, including possible DC today, t he pending insurance auth, destination ([facility]) and transportat ion. Sister plans to ask family if they can provide transportation, although non e will be available this evening. MARTITA to obtain quotes on wheelchair van and foll ow up with sister. MARTITA called for quotes for wheelchair van with oxygen to [place], [place]. [facility] [employer] Operations Manager, , Jaden. $397 if discharge by 1400; after that, $476 .40. [facility] [employer], . $692.50. [place] [employer], , Piotr. $350 if discharge by 1500; after that, $ 425. MARTITA discussed above costs with pt's sister. SW to call pt to discuss when pt [...] Address Phone Number Fax Numb er [facility] Selected Senior Living [address] [facility] [facility] [address] [phone] Home Care No service has been selected for the patient. Dialysis/Infusion - Selection Complete Service Provider Request Status Selected Services Address Phone Number Fax Numb er [facility] Selected In-Center Dialysis [facility] [address] [phone] Julia Flores LMSW Sheetrock Applicator [phone] (pager); Voalte Me * Case Mgmt DC Plan - Aggie Flores - 10/09/2019 5:25 PM CDT Case Management Progress Note NAME:Mary Tim :1950 AGE: 69 y.o. ADMISSION DATE: 09/17/2019 DAYS ADMITTED: LOS: 21 days Todays Date: 10/09/2019 Plan Anticipate discharge to [facility] [place], [place], pending completi on of chemo, medical stability, insurance auth for SNF and transportation. Interventions ? Support Support: Pt/Family Updates re:POC or DC Plan ? Info or Referral Information or Referral to Community Resources: No Needs Identified ? Discharge Planning Discharge Planning: Senior Living Facility Pt clinically accepted at [facility]. MARTITA yesterday asked SNF to req uest insurance auth. MARTITA sent referral update today with new PT/OT notes. MARTITA later called Josi in ad missions at [facility] to ask if she'd heard back from insurance, but she stated she thompson dn't submitted the request yet. MARTITA stated that pt is expected to be ready to DC tomorrow. Josi stated she would submit for auth right away. [facility] does not provide transportation. SW to work on transportation tomorr ow when DC time is known. MARTITA confirmed today with PT that pt can travel in wheel chair van to [place]. MARTITA faxed [facility]'s note to facility that provides details of plan for dialysis. MARTITA contacted attending to confirm plan for outpatient treatment. At this time, gage muse is scheduled for an oncology appointment with Dr. Gage Zhong, oncologist, [facility], on 10/[address] Zhong will determine plan for chemo. MARTITA left a msg for Josi informing her of the above outpt plan and that MARTITA fa xed [facility]'s note with dialysis appointment details. MARTITA [...] Address Phone Number Fax Numb er [facility] Selected Senior Living [address] [facility] [address] [phone] Home Care No service has been selected for the patient. Dialysis/Infusion - Selection Complete Service Provider Request Status Selected Services Address Phone Number Fax Numb er [facility] Selected In-Center Dialysis [facility] [address] [phone] Julia Flores LMSW Sheetrock Applicator [phone] (pager); Voalte Me * Case Mgmt DC [...] morning. * Pt to DC to [facility] in [place], [place] and will require OP HD. NCM to as sist. * Pt will need OP HD close to home in [place], [place]. * Will continue to follow with Hematology team through DC. ? Info or Referral Information or Referral to Community Resources: No Needs Identified ? Discharge Planning Discharge Planning: OP HD or PD * [facility] pool B tasked to locate in-network OP HD providers near pts home address. * Obtained list of in-network OP HD via email and only 1 clinic listed..[facility] OP HD in [place] near [place], [place]. This would be too far for SNF to diane sport patient. * NCM contacted pts insurance provider and obtained another in-network OP HD cli jameson. [facility] P: / F: * OP HD referral faxed to [facility] P: / F: to set patient up [...] Address Phone Number Fax Numb er [facility] Selected Senior Living [address] [address] [phone] Home Care No service has been selected for the patient. Dialysis/Infusion - Selection Complete Service Provider Request Status Selected Services Address Phone Number Fax Numb er [facility] Selected In-Center Dialysis [facility] [address] [phone] Zakia Stinson RN, BSN Nurse Newborn Hearing ScreenerReporter / Surgical Non-Transplant Pager: * Case Mgmt DC Plan - Aggie Flores - 10/08/2019 12:53 PM CDT Case Management Progress Note NAME:Mary Tim :1950 AGE: 69 y.o. ADMISSION DATE: 09/17/2019 DAYS ADMITTED: LOS: 20 days Todays Date: 10/08/2019 Plan Anticipate discharge to [facility], [place], [place], pending medical stability and insurance auth. SW called pt to discuss discharge plan to SNF and to follow up on issue of lost dentures. Interventions ? Support Support: Pt/Family Updates re:POC or DC Plan ? Info or Referral Information or Referral to Community Resources: No Needs Identified ? Discharge Planning Discharge Planning: Senior Living Facility Pt discussed in heme huddle this morning. Per attending physician, pt can be see n at outpt oncology clinic in [place], [place], and daily Zarxio shots will not be mandatory for pt. Pt will need new access placed for outpt dialysis treatments. Plan for pt to discharge on , following IT chemo. Pt clinically accepted to [facility], [place], [place]. MARTITA called admi ssions contact Josi today to update on JUSTIN and ask if insurance auth has been requested. Josi stated she would request it immediately. Josi confirmed rec eipt of referral updates from MARTITA this morning. MARTITA stated that [facility] is working on scheduling pt's dialysis appointments. [facility] upda hero SW that there is one in-network clinic in [place]. SW updated pt re SNF discharge plan. Pt [...] told to call patient relations for ashli tanjosh. On 10/01, physician note state that pt was told that [facility] was working on a plan for replacement dentures. During today's huddle, heme team requested that SW follow up on this. MARTITA spoke with pt, who stated that she's talked to patient relations "every day" about this. MARTITA asked who, specifically, pt had talked to, and she said it was "e verybody," and "they keep telling me they're going to take care of it, but when? " Pt said her sister, Ana, had also talked with patient relations. MARTITA left a msg with pt's sister, Ana [...] Address Phone Number Fax Numb er [facility] Selected Senior Living [address] [facility] [address] [phone] Home Care No service has been selected for the patient. Dialysis/Infusion - Selection Complete Service Provider Request Status Selected Services Address Phone Number Fax Numb er [facility] Selected In-Center Dialysis [facility] [address] [phone] Julia Flores LMSW Sheetrock Applicator [phone] (pager); Voalte Me * Procedures (Immed Post [...] Date: 10/07/2019 Plan Anticipate discharge to [facility], [place], [place], pending medical stability and insurance auth. Interventions ? Support Support: Pt/Family Updates re:POC or DC Plan ? Info or Referral Information or Referral to Community Resources: No Needs Identified ? Discharge Planning Discharge Planning: Senior Living Facility Per heme sammie, pt starting R-CHOP with plan for outpatient chemo starting 10/24 . Pt to discharge to SNF when medically stable. Pt might not need daily Zarxio a t discharge, per attending. Heme team looking into whether pt can follow up with oncologist in [place], [place]. Per previous primary [facility] notes, pt was accepted to [facility], [place], [place], last week. This SW faxed referral updates today. SW informed SNF of new JUSTIN and pt's need for private room. 1245: SW followed up with phone call with carin Prater, [facility], . SW informed Josi that pt is now on hematology service with new lympho ma diagnosis, that pt is receiving inpatient chemo, and that new JUSTIN is 10/08. SW also stated that pt will need a private room due to immunosuppression due to ch emo. SW stated that pt will receive additional outpt chemo treatments in [facility] or [place]; plan TBD by heme team. Josi confirmed that pt can be accepted into private room. SW to keep SNF updated re discharge plan. Josi had requested insurance auth last week, but it might be cancelled due to ongoing inpatient stay. Heme team later stated that pt will need dialysis three time/week. MARTITA called Josi to confirm that [facility] can provide transportation to/from dialysis center. S he stated that it's easiest for their transporter to accommodate MWF schedule wi th mid-morning or later start, if that's an option. MARTITA informed NCM of same. ? Medication Needs [...] Address Phone Number Fax Numb er [facility] Selected Senior Living [address] [place] [address] [phone] Home Care No service has been selected for the patient. Dialysis/Infusion No service has been selected for the patient. Julia Flores [facility] Sheetrock Applicator [phone] (pager); Voalte Ga * Procedures (Immed Post or Bedside) - [...] days Todays Date: 10/02/2019 Plan D/c to [facility] SNF. Interventions ? Support Support: Pt/Family Updates re:POC or DC Plan ? Info or Referral Information or Referral to Community Resources: No Needs Identified ? Discharge Planning Discharge Planning: Senior Living Facility Update 1500: SW faxed updates to [facility]. Called and left voicemail for Josi in admissions. ? Medication Needs Medication Needs: [...] Address Phone Number Fax Numb er [facility] Selected Senior Living [address] [place] [address] [phone] Home Care No service has been selected for the patient. Dialysis/Infusion No service has been selected for the patient. Delphine Gill LMSW, LMAC Social Work Pager: [phone] Desk: [phone] * Care Plan - Marcus Fernandez RN [...] * Anesthesia Post Op Day 1 - Nasir Cee SRNA - 09/28/2019 11:13 AM CDT [...] Needs Identified ? Discharge Planning Discharge Planning: Senior Living Facility Pt agreeable to send referral to [facility] and [facility]. [facility] denied due to concerns with pt not being able to handle 3 fernanda rs of therapy [facility]- clinically accepted and will send for auth. MARTITA updated pt on acceptance at [facility]. ? Medication Needs Medication Needs: No Needs [...] Address Phone Number Fax Numb er [facility] Selected Senior Living [address] [place] [address] [phone] Home Care No service has been selected for the patient. Dialysis/Infusion No service has been selected for the patient. Delphine Gill LMSW, TESSA Social Work Pager: [phone] Desk: [phone] * Care Plan - Lisa Marmolejo RN [...] is able to transition back to the [facility] narayan's primary care physician. Patient reports being fully independent and living on her own in a mobile [employer] e. She works two days a week [...] admission. She did attend OP PT in [place], [place] when she was experiencing vertigo in the past. Patient states at discharge one of her family members will pick her up for [facility]. Plan Plan: Case Management Assessment, Assist PRN with SW/NCM Services, Discharge Lamar nning for Home Anticipated Renal following. NCM to continue to follow for any discharge plans/needs. Patient Address/Phone [address] [facility] [address] (home) Emergency Contact No emergency contact [...] provider on file., None, None ? Pharmacy [facility] [address] [facility] [address] [facility] [phone] ? Durable Medical Equipment Durable Medical Equipment [...] and community based services: No ? Lasha White Lasha White: N/A ? Hospice Hospice: No ? Outpatient Therapy PT: In the past Name of rehab location/group: [facility] Would patient return for future services?: Yes OT: No WINCHER: No ? Senior Living Facility/Care Home SNF: No NH: No ? Inpatient Rehab IPR: No ? Long-Term Acute Care Hospital LTACH: No ? Acute Hospital Stay Acute Hospital Stay: No VANNESSA Tripp, co founder and president Nursing Newborn Hearing Screener *[phone] * Advanced Care Planning/Resuscitation Status - Ben Eason MD - 09/18/2019 5:17 AM CDT Advance Care Planning/Resuscitation Status Conversation Individuals present for advance care planning conversation: medical student, pat ient and resident/fellow physician Pertinent details of conversation [...] Problems ed? GOAL General No Ale Choudhary, ROLAND Note: Get back on my feet documented [...] CSF TUBE VOLUMES 10/07/2019 1:10 PM CDT OH FLOW CYTOMETRY INTERPJ 10/07/2019 2-8 MARKERS 1:10 PM CDT LEUKEMIA/LYMPHOMA PANEL Routine 10/07/2019 FLUID/TISSUE 1:10 PM CDT HC CELL COUNT W/DIFF-CSF STAT 10/07/2019 1:10 PM CDT HC TOTAL PROTEIN-CSF STAT 10/07/2019 1:10 PM CDT HC GLUCOSE-CSF STAT 10/07/2019 1:10 PM CDT POC GLUCOSE 10/07/2019 12:48 PM CDT HC NON-GAMBRELER/THIN PREP Routine 10/07/2019 11:30 AM CDT CHEST [...] MARROW BIOPSY Routine 10/04/2019 9:21 AM CDT OH FLOW CYTOMETRY 10/04/2019 INTERPRETATION 16/> 9:20 AM [...] CSF TUBE VOLUMES 10/03/2019 1:45 PM CDT OH FLOW CYTOMETRY INTERPJ 10/03/2019 2-8 MARKERS 1:45 PM CDT LEUKEMIA/LYMPHOMA PANEL Routine 10/03/2019 FLUID/TISSUE 1:45 PM CDT HC CELL COUNT W/DIFF-CSF STAT 10/03/2019 1:45 PM CDT HC TOTAL PROTEIN-CSF STAT 10/03/2019 1:45 PM CDT HC GLUCOSE-CSF STAT 10/03/2019 1:45 PM CDT IR LUMBAR PUNCTURE Routine 10/03/2019 1:41 PM CDT HC NON-GAMBRELER/THIN PREP Routine 10/03/2019 12:30 PM CDT HC [...] #1 Routine 09/27/2019 (PATHOLOGY) 6:00 PM CDT OH FLOW CYTOMETRY 09/27/2019 INTERPRETATION 16/> 5:32 PM [...] METABOLIC PANEL Routine 09/27/2019 4:11 AM CDT OH FLOW CYTOMETRY 09/27/2019 INTERPRETATION 16/> 4:00 AM [...] in Lab 3:46 PM CDT HC ANTI-DNA TUSCARORA Specimen 09/25/2019 in Lab 3:46 PM CDT [...] ABO GROUP Routine 09/25/2019 9:10 AM CDT OH BLOOD SMEAR PERIPHERAL Add on 09/25/2019 INTERP [...] LAB Basophil Count Specimen Performing Organization Address [facility] one Number MAIN LAB [address] [place] [address] * URIC ACID (10/11/2019 2:40 AM CDT) Uric Acid <1.5 (L) 2.0 - 7.0 MG/DL KU MAIN LAB Specimen Blood Performing Organization Address [facility] Ph one Number MAIN LAB [address] [place] [address] * LDH-LACTATE DEHYDROGENASE (10/11/2019 2:40 AM CDT) Lactate 312 (H) 100 - 210 U/L MAIN LAB Dehydrogenase Specimen Blood Performing Organization Address [facility] Ph one Number MAIN LAB [address] [place] [id number] * PROTIME INR (PT) (10/11/2019 2:40 AM CDT) INR 1.2 0.8 - 1.2 MAIN LAB Specimen Blood Performing Organization Address [facility] one Number MAIN LAB [address] [place] [id number] * COMPREHENSIVE METABOLIC PANEL (10/11/2019 2:40 AM [...] (L) >60 mL/min KU MAIN LAB Comment: Filipino The eGFR is not validated f or use in drug dosing adjustments. Continue to use estimated creatinine clearance per dosing reference text. Please contact the Clinical Pharmacist for questions. eGFR 23 (L) >60 mL/min KU MAIN LAB Filipino Comment: The eGFR is not validated for use in drug dosing adjustments. Continue to use estimated creatinine clearance per dosing reference text. Please contact the Clinical Pharmacist for questions. Specimen Blood Performing Organization Address City/State/Zipcode Ph one Number KU MAIN LAB [address] [place] [address] * BASIC METABOLIC PANEL (10/10/2019 5:11 PM CDT) Sodium 140 137 - 147 [...] (L) >60 mL/min KU MAIN LAB Comment: Filipino The eGFR is not validated f or use in drug dosing adjustments. Continue to use estimated creatinine clearance per dosing reference text. Please contact the Clinical Pharmacist for questions. eGFR 33 (L) >60 mL/min KU MAIN LAB Filipino Comment: The eGFR is not validated for use in drug dosing adjustments. Continue to use estimated creatinine clearance per dosing reference text. Please contact the Clinical Pharmacist for questions. Specimen Blood Performing Organization Address City/State/Zipcode Ph one Number MAIN LAB [address] [place] [address] * HEMODIALYSIS INPATIENT (10/10/2019 3:02 PM CDT) Narrative Performed At Sri Knutson RN 10/10/2019 5: 04 PM 1320 Pt from IR to [facility] 2 s/p lumba r puncture. Placed [...] to Tiffany RN unit [id number] * HEMODIALYSIS DATE (10/10/2019 3:02 PM CDT) Narrative Performed At Sri Knutson RN 10/10/2019 5: 04 PM 1320 Pt from IR to [facility] 2 s/p lumba r puncture. Placed [...] on 10/10/2019 1:08 PM. Performing Organization Address [facility] one Number KU RAD RESULTS * GLUCOSE-CSF (10/10/2019 11:54 AM CDT) Pathologist [facility] Glucose,CSF 92 (H) 40 - 75 MG/DL MAIN LAB Xanthochromia,C NONE KU MAIN LAB SF Specimen Cerebrospinal fluid - Cerebrospinal Fluid Performing Organization Address [facility] one Number MAIN LAB [address] [place] [address] * TOTAL PROTEIN-CSF (10/10/2019 11:54 AM CDT) Total 35 15 - 45 MG/DL MAIN LAB Protein,CSF Specimen Cerebrospinal fluid - Cerebrospinal Fluid Performing Organization Address [facility] one Number MAIN LAB [address] [place] [address] * CELL COUNT W/DIFF-CSF (10/10/2019 11:54 AM CDT) Pathologist [facility] Cell Count TUBE 3 KU MAIN LAB Tube,CSF White Blood 10 (H) <5 /UL KU MAIN LAB Cells,CSF Red Blood 2,100 /UL KU MAIN LAB Cells,CSF Neutrophils, 91 % KU MAIN LAB CSF Lymphocytes, 7 % MAIN LAB CSF Monocyte/Hisoto 2 % MAIN LAB cyte, CSF Clarity,CSF BLOODY MAIN LAB Path NEGATIVE FOR ATYPICAL KU [...] fluid - Cerebrospinal Fluid Performing Organization Address [facility] one Number MAIN LAB [address] [place] [address] * POC GLUCOSE (10/10/2019 11:37 AM CDT) Glucose, POC 133 (H) 70 - 100 MG/DL MAIN LAB Specimen Performing Organization Address [facility] one Number MAIN LAB [address] [place] [address] * URIC ACID, RASBURICASE (10/10/2019 9:20 AM CDT) Uric Acid, 5.0 2.0 - 7.0 mg/dL MAIN LAB Rasburicase Specimen Blood Performing Organization Address [facility] one Number MAIN LAB [address] [place] [address] * LDH-LACTATE DEHYDROGENASE (10/10/2019 2:20 AM CDT) Lactate 431 (H) 100 - 210 U/L MAIN LAB Dehydrogenase Specimen Blood Performing Organization Address [facility] one Number MAIN LAB [address] [place] [id number] * PROTIME INR (PT) (10/10/2019 2:20 AM CDT) INR 1.1 0.8 - 1.2 MAIN LAB Specimen Blood Performing Organization Address [facility] one Number MAIN LAB [address] [place] [id number] * COMPREHENSIVE METABOLIC PANEL (10/10/2019 2:20 AM [...] - 12 KU MAIN LAB eGFR Non 10 (L) >60 mL/min MAIN LAB Comment: Filipino The eGFR is not validated f or use in drug dosing adjustments. Continue to use estimated creatinine clearance per dosing reference text. Please contact the Clinical Pharmacist for questions. eGFR 13 (L) >60 mL/min KU MAIN LAB Filipino Comment: The eGFR is not validated for use in drug dosing adjustments. Continue to use estimated creatinine clearance per dosing reference text. Please contact the Clinical Pharmacist for questions. Specimen Blood Performing Organization Address [facility] Ph one Number MAIN LAB [address] [place] [address] * URIC ACID (10/10/2019 2:20 AM CDT) Uric Acid 5.9 2.0 - 7.0 MG/DL MAIN LAB Specimen Blood Performing Organization Address [facility] Ph one Number MAIN LAB [address] [place] [address] * PHOSPHORUS (10/10/2019 2:20 AM CDT) Phosphorus 6.8 (H) 2.0 - 4.5 MG/DL KU MAIN LAB Specimen Blood Performing Organization Address [facility] Ph one Number MAIN LAB [address] [place] [address] * CBC AND DIFF (10/10/2019 2:20 AM CDT) White Blood 21.4 (H) 4.5 - 11.0 K/UL KU MAIN LAB Cells RBC 2.68 (L) 4.0 - 5.0 M/UL KU MAIN LAB Hemoglobin 8.3 (L) 12.0 - 15.0 GM/DL KU MAIN LAB Hematocrit 23.7 (L) 36 - 45 % KU MAIN LAB MCV 88.6 80 - 100 FL KU MAIN LAB MCH 31.0 26 - 34 PG KU MAIN LAB MCHC 35.0 32.0 - 36.0 G/DL KU MAIN LAB RDW 13.4 11 - 15 % KU MAIN LAB Platelet Count 172 150 - 400 K/UL KU MAIN LAB MPV 6.9 (L) 7 - 11 FL KU MAIN LAB Neutrophils 97 (H) 41 - [...] Basophil Count Specimen Blood Performing Organization Address [facility] Ph one Number KU MAIN LAB [address] [place] [id number] * MAGNESIUM (10/10/2019 2:20 AM CDT) Magnesium 2.0 1.6 - 2.6 mg/dL KU MAIN LAB Specimen Blood Performing Organization Address [facility] Ph one Number KU MAIN LAB [address] [place] [id number] * URIC ACID, RASBURICASE (10/09/2019 10:00 PM CDT) Uric Acid, 7.6 (H) 2.0 - 7.0 mg/dL KU MAIN LAB Rasburicase Specimen Blood Performing Organization Address [facility] one Number MAIN LAB [address] [place] [address] * BASIC METABOLIC PANEL (10/09/2019 4:30 PM [...] - 10.6 MG/DL MAIN LAB eGFR Non 11 (L) >60 mL/min MAIN LAB Comment: Filipino The eGFR is not validated f or use in drug dosing adjustments. Continue to use estimated creatinine clearance per dosing reference text. Please contact the Clinical Pharmacist for questions. eGFR 14 (L) >60 mL/min MAIN LAB Filipino Comment: The eGFR is not validated for use in drug dosing adjustments. Continue to use estimated creatinine clearance per dosing reference text. Please contact the Clinical Pharmacist for questions. Specimen Blood Performing Organization Address [facility] one Number MAIN LAB [address] [place] [address] * URIC ACID (10/09/2019 4:30 PM CDT) Uric Acid 8.0 (H) 2.0 - 7.0 MG/DL MAIN LAB Specimen Blood Performing Organization Address [facility] Ph one Number MAIN LAB [address] [place] [address] * PHOSPHORUS (10/09/2019 4:30 PM CDT) Phosphorus 6.5 (H) 2.0 - 4.5 MG/DL MAIN LAB Specimen Blood Performing Organization Address [facility] Ph one Number MAIN LAB [address] [place] [address] * VRE SCREEN (10/09/2019 11:46 AM CDT) Battery Name VRE SCREEN KU MAIN LAB Specimen PERIRECTAL SWAB MAIN LAB Description Special NONE KU MAIN LAB Requests Culture NO VRE ISOLATED KU MAIN LAB Report Status FINAL KU MAIN LAB 10/11/2019 Specimen Perirectal Swab Performing Organization Address [facility] one Number MAIN LAB [address] [place] [address] * LDH-LACTATE DEHYDROGENASE (10/09/2019 3:00 AM CDT) Lactate 439 (H) 100 - 210 U/L [facility] MAIN LAB Dehydrogenase Specimen Blood Performing Organization Address [facility] one Number MAIN LAB [address] [place] [address] * PROTIME INR (PT) (10/09/2019 3:00 AM CDT) INR 1.1 0.8 - 1.2 MAIN LAB Specimen Blood Performing Organization Address [facility] one Number MAIN LAB [address] [place] [address] * COMPREHENSIVE METABOLIC PANEL (10/09/2019 3:00 AM [...] (L) >60 mL/min [facility] MAIN LAB Comment: Filipino The eGFR is not validated f or use in drug dosing adjustments. Continue to use estimated creatinine clearance per dosing reference text. Please contact the Clinical Pharmacist for questions. eGFR 17 (L) >60 mL/min [facility] MAIN LAB Filipino Comment: The eGFR is not validated for use in drug dosing adjustments. Continue to use estimated creatinine clearance per dosing reference text. Please contact the Clinical Pharmacist for questions. Specimen Blood Performing Organization Address City/[facility] Ph one Number [facility] MAIN LAB [address] [place] [address] * URIC ACID (10/09/2019 3:00 AM CDT) Uric Acid 7.5 (H) 2.0 - 7.0 MG/DL [facility] MAIN LAB Specimen Blood Performing Organization Address [facility] Ph one Number [facility] MAIN [facility] [address] [place] [address] * PHOSPHORUS (10/09/2019 3:00 AM CDT) Phosphorus 5.1 (H) 2.0 - 4.5 MG/DL [facility] MAIN LAB Specimen Blood Performing Organization Address [facility] one Number [facility] MAIN LAB [address] [place] [address] * CBC AND DIFF (10/09/2019 3:00 AM [...] Basophil Count Specimen Blood Performing Organization Address [facility] one Number [facility] MAIN LAB [address] [place] [address] * MAGNESIUM (10/09/2019 3:00 AM CDT) Magnesium 2.0 1.6 - 2.6 mg/dL [facility] MAIN LAB Specimen Blood Performing Organization Address [facility] one Number [facility] MAIN LAB [address] [place] [address] * BASIC METABOLIC PANEL (10/08/2019 4:33 PM CDT) Sodium 139 137 - 147 MMOL/L [facility] MAIN LAB Potassium 4.1 3.5 - 5.1 MMOL/L [facility] MAIN [facility] Chloride 100 98 - 110 MMOL/L [facility] MAIN [facility] CO2 25 21 - 30 MMOL/L [facility] MAIN [facility] Anion Gap 14 (H) 3 - 12 [facility] MAIN LAB Glucose 153 (H) 70 - 100 MG/DL [facility] MAIN LAB Blood Urea 49 (H) 7 - 25 MG/DL [facility] MAIN LAB Nitrogen Creatinine 2.86 (H) 0.4 - 1.00 MG/DL [facility] MAIN LAB Calcium 7.8 (L) 8.5 - 10.6 MG/DL [facility] MAIN LAB eGFR Non 16 (L) >60 mL/min [facility] MAIN LAB Comment: Filipino The eGFR is not validated f or use in drug dosing adjustments. Continue to use estimated creatinine clearance per dosing reference text. Please contact the Clinical Pharmacist for questions. eGFR 20 (L) >60 mL/min [facility] MAIN LAB Filipino Comment: The eGFR is not validated for use in drug dosing adjustments. Continue to use estimated creatinine clearance per dosing reference text. Please contact the Clinical Pharmacist for questions. Specimen Blood Performing Organization Address [facility] one Number MAIN LAB [address] [place] [address] * URIC ACID (10/08/2019 4:33 PM CDT) Uric Acid 6.7 2.0 - 7.0 MG/DL [facility] MAIN LAB Specimen Blood Performing Organization Address [facility] one Number [facility] MAIN LAB [address] [place] [address] * PHOSPHORUS (10/08/2019 4:33 PM CDT) Phosphorus 5.6 (H) 2.0 - 4.5 MG/DL [facility] MAIN LAB Specimen Blood Performing Organization Address [facility] one Number [facility] MAIN LAB [address] [place] [address] * TRANSFUSE RBC'S (10/08/2019 10:20 AM CDT) Specimen Blood * TRANSFUSE RBC'S (10/08/2019 10:20 AM CDT) Specimen Blood * LDH-LACTATE DEHYDROGENASE (10/08/2019 3:15 AM CDT) Lactate 507 (H) 100 - 210 U/L [facility] MAIN LAB Dehydrogenase Specimen Performing Organization Address [facility] one Number MAIN LAB [address] [place] [id number] * TYPE & CROSSMATCH (10/08/2019 3:15 AM CDT) Units Ordered 1 [facility] MAIN LAB Crossmatch 10/11/2019,2359 [facility] MAIN LAB Expires Record Check FOUND [facility] MAIN LAB ABO/RH(D) A POS [facility] MAIN LAB Antibody Screen NEG [facility] MAIN LAB Electronic YES [facility] MAIN LAB Crossmatch Unit Number [id number] MAIN LAB Blood Component RBC,ADSOL,LEUKO REDUCED [facility] MAIN LAB Type Unit Division 0 [facility] MAIN LAB Status OF Unit DISCARDED [facility] MAIN LAB Transfusion OK TO TRANSFUSE [facility] MAIN LAB Status Crossmatch COMPATIBLE,ELECTRONIC [facility] MAIN LAB Result Unit Number [id number] MAIN LAB Blood Component RBC,ADSOL,LEUKO [facility] MAIN [facility] Type REDUCED,IRRADIATED Unit Division 0 MAIN LAB Status OF Unit TRANSFUSED [facility] MAIN LAB Transfusion OK TO TRANSFUSE [facility] MAIN LAB Status Crossmatch COMPATIBLE,ELECTRONIC MAIN LAB Result Specimen Blood Performing Organization Address [facility] one Number MAIN LAB [address] [place] [id number] * PROTIME INR (PT) (10/08/2019 3:15 AM CDT) INR 1.1 0.8 - 1.2 [facility] MAIN LAB Specimen Blood Performing Organization Address City/[facility] Ph one Number [facility] MAIN LAB [address] [place] [address] * COMPREHENSIVE METABOLIC PANEL (10/08/2019 3:15 AM [...] (L) >60 mL/min [facility] MAIN LAB Comment: Filipino The eGFR is not validated f or use in drug dosing adjustments. Continue to use estimated creatinine clearance per dosing reference text. Please contact the Clinical Pharmacist for questions. eGFR 29 (L) >60 mL/min [facility] MAIN LAB Filipino Comment: The eGFR is not validated for use in drug dosing adjustments. Continue to use estimated creatinine clearance per dosing reference text. Please contact the Clinical Pharmacist for questions. Specimen Blood Performing Organization Address [facility] Ph one Number [facility] MAIN [facility] [address] [place] [address] * URIC ACID (10/08/2019 3:15 AM CDT) Uric Acid 4.9 2.0 - 7.0 MG/DL [facility] MAIN LAB Specimen Blood Performing Organization Address City/[facility] one Number [facility] MAIN LAB [address] [place] [address] * PHOSPHORUS (10/08/2019 3:15 AM CDT) Phosphorus 4.3 2.0 - 4.5 MG/DL [facility] MAIN LAB Specimen Blood Performing Organization Address [facility] one Number [facility] MAIN LAB [address] [place] [address] * CBC AND DIFF (10/08/2019 3:15 AM [...] Basophil Count Specimen Blood Performing Organization Address [facility] one Number [facility] MAIN LAB [address] [place] [address] * MAGNESIUM (10/08/2019 3:15 AM CDT) Magnesium 2.0 1.6 - 2.6 mg/dL [facility] MAIN LAB Specimen Blood Performing Organization Address [facility] one Number MAIN LAB [address] [place] [address] * BASIC METABOLIC PANEL (10/07/2019 7:00 PM [...] 36 (L) >60 mL/min MAIN LAB Comment: Filipino The eGFR is not validated f or use in drug dosing adjustments. Continue to use estimated creatinine clearance per dosing reference text. Please contact the Clinical Pharmacist for questions. eGFR 43 (L) >60 mL/min MAIN LAB Filipino Comment: The eGFR is not validated for use in drug dosing adjustments. Continue to use estimated creatinine clearance per dosing reference text. Please contact the Clinical Pharmacist for questions. Specimen Blood Performing Organization Address [facility] one Number MAIN LAB [address] [place] [address] * URIC ACID (10/07/2019 7:00 PM CDT) Uric Acid 2.4 2.0 - 7.0 MG/DL MAIN LAB Specimen Blood Performing Organization Address [facility] one Number MAIN LAB [address] [place] [address] * PHOSPHORUS (10/07/2019 7:00 PM CDT) Phosphorus 2.9 2.0 - 4.5 MG/DL MAIN LAB Specimen Blood Performing Organization Address [facility] one Number MAIN LAB [address] [place] [address] * HEMODIALYSIS INPATIENT (10/07/2019 6:57 PM CDT) Narrative Performed At Anurag Hanson RN 10/07/2019 6:59 PM Hemodialysis Procedure Report Report recieved from Primary Care RNSergio RN at 1230. Hemodialysis treatment performed [facility] [place] [facility].. Patient ID verified and consent signed: [...] treatment performed [facility] [place] 03.. Patient ID verified and consent signed: [...] CYTOMETRY (10/07/2019 1:10 PM CDT) PATHOLOGY [facility] [email or web address] Rubin Mcintosh MD, Director of Flow Cytometry Laboratory Department of Pathology and Laboratory Medicine [address] [place] [address] Surgical Pathology Office: [phone] FLOW CYTOMETRY REPORT NAME: MARY TIM SURG PATH #: [id number] MR #: [id number] SPECIMEN CLASS: LC BILLING #: [id number] ALT ID #: LOCATION: 42 DATE OF [...] in this report. +++Electronically Signed Out By+++ [facility]/10/08/2019 Interpreted by: Eloy Yin MD 10/08/2019 ############################## ############################## ############ Lab Data: Flow Cytometry - B Cell Panel B Cell Associated Markers (% Positive Cells): CD19 = 0; CD20 = 0; Wilburn = 0; Lambda = 0; Wilburn/Lambda ratio = n/a T Cell Associated Markers (% Positive Cells): CD5 = 93 Miscellaneous Markers (% Positive Cells): CD10 = 0; CD38 = 21; CD45 = 100 Cell Viability (%): qns Number of Cells Analyzed: 230 Total Number of Markers: 8 Summary of Marker Combinations: Wilburn/Lambda/5/19/38/45/10/20 This test was developed and its performance characteristics determined by the [facility] Flow Cytometry Laboratory. It has not been cleared or approved by the U.S. Food and Drug Administration (FDA). The FDA has determined that such clearance or approval is not necessary. Specimen Performing Organization Address [facility] one Number MAIN LAB [address] [place] [address] * CSF TUBE VOLUMES (10/07/2019 1:10 PM CDT) CSF Tube 1 3.0 mL [facility] LAB RESULTS CSF Tube 2 3.0 mL [facility] LAB RESULTS CSF Tube 3 2.0 mL K[facility] LAB RESULTS CSF Tube 4 0.0 mL [facility] LAB RESULTS Specimen Performing Organization Address [facility] one Number LAB RESULTS * LEUKEMIA/LYMPHOMA PANEL FLUID/TISSUE (10/07/2019 1:10 PM CDT) Leuk/Lymph SEE PATHOLOGY REPORT MAIN LAB Interpretation Specimen/LLM CSF MAIN LAB Specimen Cerebrospinal Fluid Performing Organization Address [facility] one Number [facility] MAIN LAB [address] [place] [address] * GLUCOSE-CSF (10/07/2019 1:10 PM CDT) Glucose,CSF 104 (H) 40 - 75 MG/DL MAIN LAB Xanthochromia,C NONE [facility] MAIN LAB SF Specimen Cerebrospinal fluid - Cerebrospinal Fluid Performing Organization Address [facility] one Number [facility] MAIN LAB [address] [place] [address] * TOTAL PROTEIN-CSF (10/07/2019 1:10 PM CDT) Total 34 15 - 45 MG/DL MAIN LAB Protein,CSF Specimen Cerebrospinal fluid - Cerebrospinal Fluid Performing Organization Address [facility] one Number MAIN LAB [address] [place] [address] * CELL COUNT W/DIFF-CSF (10/07/2019 1:10 PM CDT) Cell Count TUBE 3 [facility] MAIN LAB Tube,CSF White Blood 1 <5 /UL MAIN LAB Cells,CSF Red Blood 23 /UL [facility] MAIN LAB Cells,CSF Neutrophils, 17 % [facility] MAIN LAB CSF Lymphocytes, 45 % [facility] MAIN LAB CSF Monocyte/Hisoto 38 % [facility] MAIN LAB cyte, CSF Clarity,CSF CLEAR [facility] MAIN LAB Path NEGATIVE FOR ATYPICAL [facility] MAIN LAB Interpretation, HEMATOPOIETIC CELLS CSF Pathologist INTERPRETED [...] fluid - Cerebrospinal Fluid Performing Organization Address [facility] one Number MAIN LAB [address] [place] [address] * POC GLUCOSE (10/07/2019 12:48 PM CDT) Glucose, POC 175 (H) 70 - 100 MG/DL MAIN LAB Specimen Performing Organization Address [facility] Ph one Number MAIN LAB [address] [place] [address] * CYTOLOGY FLUIDS (10/07/2019 11:30 AM CDT) Cytology [facility] [email or web address] Department of Pathology and Laboratory Medicine [address] [place] [address] Surgical Pathology Office: [phone] CYTOLOGY REPORT NAME: MARY TIM CYTOLOGY #: [id number] MR #: [id number] ALT ID #: CAESAR #: [id number] LOCATION: 42 DATE OF PROCEDURE: 10/07/2019 AGE: [...] Please also see concurrent flow cytometry report ([id number]). Attestation: By this signature, I attest that I have personally formulated the final interpretation expressed in this report and that the above diagnosis is based upon my examination of the slides and/or other material indicated in this report. +++Electronically Signed Out By+++ rony/10/08/2019 Interpreted by: MD Frank Funez MD Resident Specimen Cerebrospinal Fluid Performing Organization Address City/State/Zipcode Ph one Number [facility] [address] [place] [address] * CHEST SINGLE VIEW (10/07/2019 4:00 AM [...] been interval placement of a left jugular Abobqj-t-Apsh catheter. The multilumen right jugular venous line [...] been interval placement of a left jugular Naqpgi-p-Ggsa catheter. The multilumen right jugular venous line [...] Ph one Number K[facility] RAD RESULTS * LDH-LACTATE DEHYDROGENASE (10/07/2019 2:25 AM CDT) Lactate 722 (H) 100 - 210 U/L [facility] MAIN LAB Dehydrogenase Specimen Blood Performing Organization Address [facility] one Number [facility] MAIN LAB [address] [place] [address] * PROTIME INR (PT) (10/07/2019 2:25 AM CDT) INR 1.1 0.8 - 1.2 [facility] MAIN LAB Specimen Blood Performing Organization Address [facility] one Number [facility] MAIN LAB [address] [place] [address] * COMPREHENSIVE METABOLIC PANEL (10/07/2019 2:25 AM [...] (L) >60 mL/min [facility] MAIN LAB Comment: Filipino The eGFR is not validated f or use in drug dosing adjustments. Continue to use estimated creatinine clearance per dosing reference text. Please contact the Clinical Pharmacist for questions. eGFR 14 (L) >60 mL/min [facility] MAIN LAB Filipino Comment: The eGFR is not validated for use in drug dosing adjustments. Continue to use estimated creatinine clearance per dosing reference text. Please contact the Clinical Pharmacist for questions. Specimen Blood Performing Organization Address [facility] one Number [facility] MAIN LAB [address] [place] [address] * URIC ACID (10/07/2019 2:25 AM CDT) Uric Acid 6.0 2.0 - 7.0 MG/DL [facility] MAIN LAB Specimen Blood Performing Organization Address [facility] one Number [facility] MAIN LAB [address] [place] [address] * PHOSPHORUS (10/07/2019 2:25 AM CDT) Phosphorus 5.9 (H) 2.0 - 4.5 MG/DL [facility] MAIN LAB Specimen Blood Performing Organization Address [facility] one Number [facility] MAIN LAB [address] [place] [address] * CBC AND DIFF (10/07/2019 2:25 AM [...] Basophil Count Specimen Blood Performing Organization Address [facility] Ph one Number [facility] MAIN [facility] [address] [place] [address] * MAGNESIUM (10/07/2019 2:25 AM CDT) Magnesium 2.0 1.6 - 2.6 mg/dL [facility] MAIN LAB Specimen Blood Performing Organization Address [facility] one Number [facility] MAIN LAB [address] [place] [address] * BASIC METABOLIC PANEL (10/06/2019 4:21 PM CDT) Sodium 140 137 - 147 MMOL/L [facility] MAIN LAB Potassium 3.9 3.5 - 5.1 MMOL/L [facility] MAIN LAB Chloride 102 98 - 110 MMOL/L [facility] MAIN LAB CO2 23 21 - 30 MMOL/L [facility] MAIN LAB Anion Gap 15 (H) 3 - 12 [facility] MAIN LAB Glucose 140 (H) 70 - 100 MG/DL MAIN LAB Blood Urea 43 (H) 7 - 25 MG/DL MAIN LAB Nitrogen Creatinine 3.52 (H) 0.4 - 1.00 MG/DL MAIN LAB Calcium 7.6 (L) 8.5 - 10.6 MG/DL MAIN LAB eGFR Non 13 (L) >60 mL/min MAIN LAB Comment: Filipino The eGFR is not validated f or use in drug dosing adjustments. Continue to use estimated creatinine clearance per dosing reference text. Please contact the Clinical Pharmacist for questions. eGFR 16 (L) >60 mL/min MAIN LAB Filipino Comment: The eGFR is not validated for use in drug dosing adjustments. Continue to use estimated creatinine clearance per dosing reference text. Please contact the Clinical Pharmacist for questions. Specimen Blood Performing Organization Address [facility] Ph one Number [facility] MAIN [facility] [address] [place] [address] * URIC ACID (10/06/2019 4:21 PM CDT) Uric Acid 4.6 2.0 - 7.0 MG/DL [facility] MAIN LAB Specimen Blood Performing Organization Address [facility] Ph one Number MAIN LAB [address] [place] [address] * PHOSPHORUS (10/06/2019 4:21 PM CDT) Phosphorus 5.3 (H) 2.0 - 4.5 MG/DL [facility] MAIN LAB Specimen Blood Performing Organization Address [facility] one Number [facility] MAIN LAB [address] [place] [address] * COMPREHENSIVE METABOLIC PANEL (10/06/2019 4:15 AM CDT) Sodium 141 137 - 147 MMOL/L [facility] MAIN LAB Potassium 4.3 3.5 - 5.1 MMOL/L [facility] MAIN LAB Chloride 102 98 - 110 MMOL/L [facility] MAIN LAB Glucose 130 (H) 70 - [...] (L) >60 mL/min [facility] MAIN LAB Comment: Filipino The eGFR is not validated f or use in drug dosing adjustments. Continue to use estimated creatinine clearance per dosing reference text. Please contact the Clinical Pharmacist for questions. eGFR 19 (L) >60 mL/min [facility] MAIN LAB Filipino Comment: The eGFR is not validated for use in drug dosing adjustments. Continue to use estimated creatinine clearance per dosing reference text. Please contact the Clinical Pharmacist for questions. Specimen Blood Performing Organization Address [facility] one Number [facility] MAIN LAB [address] [place] [address] * LIVER FUNCTION PANEL (10/06/2019 4:15 AM [...] [facility]U MAIN LAB Specimen Performing Organization Address [facility] one Number MAIN LAB [address] [place] [address] * PHOSPHORUS (10/06/2019 4:15 AM CDT) Phosphorus 4.6 (H) 2.0 - 4.5 MG/DL [facility] MAIN LAB Specimen Performing Organization Address [facility] one Number MAIN LAB [address] [place] [address] * BASIC METABOLIC PANEL (10/06/2019 4:15 AM [...] 25 MG/DL [facility] MAIN LAB Nitrogen Creatinine 2.90 (H) 0.4 - 1.00 MG/DL [facility] MAIN LAB Calcium 7.8 (L) 8.5 - 10.6 MG/DL [facility] MAIN LAB eGFR Non 16 (L) >60 mL/min MAIN LAB Comment: Filipino The eGFR is not validated f or use in drug dosing adjustments. Continue to use estimated creatinine clearance per dosing reference text. Please contact the Clinical Pharmacist for questions. eGFR 19 (L) >60 mL/min [facility] MAIN LAB Filipino Comment: The eGFR is not validated for use in drug dosing adjustments. Continue to use estimated creatinine clearance per dosing reference text. Please contact the Clinical Pharmacist for questions. Specimen Performing Organization Address [facility] one Number MAIN LAB [address] [place] [address] * LDH-LACTATE DEHYDROGENASE (10/06/2019 4:15 AM CDT) Lactate 514 (H) 100 - 210 U/L [facility] MAIN LAB Dehydrogenase Specimen Blood Performing Organization Address [facility] one Number [facility] MAIN LAB [address] [place] [address] * PROTIME INR (PT) (10/06/2019 4:15 AM CDT) Pathologist [facility] INR 1.3 (H) 0.8 - 1.2 [facility] MAIN LAB Specimen Blood Performing Organization Address [facility] one Number [facility] MAIN LAB [address] [place] [address] * CBC AND DIFF (10/06/2019 4:15 AM CDT) Pathologist [facility] White Blood 10.2 4.5 - 11.0 K/UL [...] Basophil Count Specimen Blood Performing Organization Address [facility] one Number [facility] MAIN LAB [address] [place] [address] * MAGNESIUM (10/06/2019 4:15 AM CDT) Magnesium 2.0 1.6 - 2.6 mg/dL K[facility] MAIN LAB Specimen Blood Performing Organization Address [facility] one Number MAIN LAB [address] [place] [address] * URIC ACID (10/05/2019 6:16 PM CDT) Uric Acid 1.9 (L) 2.0 - 7.0 MG/DL MAIN LAB Specimen Blood Performing Organization Address [facility] Ph one Number MAIN LAB [address] [place] [address] * VRE SCREEN (10/05/2019 1:55 PM CDT) Battery Name VRE SCREEN MAIN LAB Specimen PERIRECTAL SWAB MAIN LAB Description Special NONE MAIN LAB Requests Culture NO VRE ISOLATED MAIN LAB Report Status FINAL MAIN LAB 10/07/2019 Specimen Perirectal Swab Performing Organization Address [facility] one Number MAIN LAB [address] [place] [address] * COVID-19 (SARS-COV-2) PCR (10/05/2019 12:17 PM CDT) COVID-19 NASOPHARYNGEAL SWAB [facility] (SARS-CoV-2) PCR Source COVID-19 NOT DETECTED DN-NOT DETECTED [facility] (SARS-CoV-2) Comment: PCR This assay [...] performance characteristics have been verified by the [facility]. Fact sheet for providers: https://www.fda.gov/media/1052 85/download Fact sheet for patients: https://www.fda.gov/media/2398 87/download Specimen Nasopharyngeal Swab Performing Organization Address City/State/Zipcode Ph one Number KU MAIN LAB [address] [place] [address] * HEMODIALYSIS INPATIENT (10/05/2019 8:59 AM CDT) Narrative Performed At Nette Rosa RN 10/05/2019 11 :34 AM 0610: Report received from primary Josr alaniz RN 0640: Arrived per bed to dialysis. [...] [facility] MAIN LAB Specimen Performing Organization Address [facility] one Number MAIN LAB [address] [place] [address] * URIC ACID, RASBURICASE (10/05/2019 4:30 AM CDT) Uric Acid, 6.4 2.0 - 7.0 mg/dL MAIN LAB Rasburicase Specimen Blood Performing Organization Address [facility] one Number MAIN LAB [address] [place] [address] * LDH-LACTATE DEHYDROGENASE (10/05/2019 4:30 AM CDT) Lactate 481 (H) 100 - 210 U/L MAIN LAB Dehydrogenase Specimen Blood Performing Organization Address [facility] one Number MAIN LAB [address] [place] [address] * PHOSPHORUS (10/05/2019 4:30 AM CDT) Phosphorus 4.6 (H) 2.0 - 4.5 MG/DL KU MAIN LAB Specimen Blood Performing Organization Address [facility] one Number MAIN LAB [address] [place] [address] * MAGNESIUM (10/05/2019 4:30 AM CDT) Magnesium 2.1 1.6 - 2.6 mg/dL KU MAIN LAB Specimen Blood Performing Organization Address [facility] one Number MAIN LAB [address] [place] [address] * BASIC METABOLIC PANEL (10/05/2019 4:30 AM [...] Urea 49 (H) 7 - 25 MG/DL [facility] Nitrogen Creatinine 5.33 (H) 0.4 - 1.00 MG/DL [facility] Calcium 8.5 8.5 - 10.6 MG/DL [facility] eGFR Non 8 (L) >60 mL/min [facility] Comment: Filipino The eGFR is not validated f or use in drug dosing adjustments. Continue to use estimated creatinine clearance per dosing reference text. Please contact the Clinical Pharmacist for questions. eGFR 10 (L) >60 mL/min [facility] Filipino Comment: The eGFR is not validated for use in drug dosing adjustments. Continue to use estimated creatinine clearance per dosing reference text. Please contact the Clinical Pharmacist for questions. Specimen Blood Performing Organization Address City/State/Zipcode Ph one Number [facility] [address] [place] [address] * CBC AND DIFF (10/05/2019 4:30 AM CDT) White Blood 8.5 4.5 - [...] Basophil Count Specimen Blood Performing Organization Address City/[facility] Ph one Number [facility] [address] [place] [address] * PROTIME INR (PT) (10/05/2019 4:30 AM CDT) INR 1.4 (H) 0.8 - 1.2 [facility] Specimen Blood Performing Organization Address City/[facility] Ph one Number MAIN LAB [address] [place] [address] * BONE MARROW (10/04/2019 9:44 AM CDT) PATHOLOGY [facility] [email or web address] Department of Pathology and Laboratory Medicine [address] [place] [address] Surgical Pathology Office: [phone] SURGICAL PATHOLOGY REPORT NAME: MARY TIM SURG PATH #: [id number] MR #: [id number] ALT ID #: LOCATION: DATE OF PROCEDURE: [...] Studies: Flow Cytometry: Performed, see separate report, [id number], which reports no phenotypic evidence of a [...] of Pathology and Laboratory Medicine of the [facility] ([employer]) in compliance with CLIA'88 [...] of Pathology and Laboratory Medicine of the [facility]. It has not been cleared or approved by the FDA. The FDA has determined that such clearance or approval is not necessary. Specimen Performing Organization Address City/State/[facility] Ph one Number MAIN LAB [address] [place] [address] * IR BONE MARROW BIOPSY (10/04/2019 9:21 [...] on 10/05/2019 9:06 AM. Performing Organization Address City/State/[facility] Ph one Number [facility] RAD RESULTS * IR CENTRAL VENOUS CATHETER (10/04/2019 9:21 AM CDT) Specimen Impressions Performed At Ultrasound and fluoroscopic guidance fo r left 8 Nigerian chest port placement, as [facility] RAD RESULTS [...] large B-ce ll lymphoma, need for chemotherapy PROCESS COORDINATOR: George Mckinney D.O. and Shane Shirley M.D. [...] The needle was removed and a 4 Nigerian t ransitional sheath was placed. The desired [...] was then used to tunnel the 8 Nigerian catheter to the lef tIJ puncture site. [...] Diffuse large B-cell lymphoma, need for chemotherapy PROCESS COORDINATOR: George Mckinney D.O. and Jonathan Shirley M.D. [...] The needle was removed and a 4 Nigerian transitional sheath was placed. The desired catheter [...] was then used to tunnel the 8 Nigerian catheter to the leftIJ puncture site. The [...] Ultrasound and fluoroscopic guidance for left 8 Nigerian chest port placement, as described. IJonathan M.D, [...] CYTOMETRY (10/04/2019 9:20 AM CDT) PATHOLOGY [facility] MAIN [facility] [email or web address] Rubin Mcintosh MD, Director of Flow Cytometry Laboratory Department of Pathology and Laboratory Medicine [address] [place] [address] Surgical Pathology Office: [phone] FLOW CYTOMETRY REPORT NAME: MARY TIM SURG PATH #: [id number] MR #: [id number] SPECIMEN CLASS: LC BILLING #: [id number] ALT ID #: LOCATION: DATE OF PROCEDURE: 10/04/2019 AGE: 69 SEX: F DATE RECEIVED: 10/04/2019 : 1950 TIME RECEIVED: 11:19 PHYSICIAN: NASIR ZUNIGA APRN-LULA DATE OF REPORT: 10/07/2019 COPY TO: YOVANA [...] in this report. +++Electronically Signed Out By+++ bad/10/07/2019 Interpreted by: Eloisa Mills MD 10/07/2019 ############################## ############################## ############ Lab Data: Flow Cytometry - Lymphoma Panel B Cell Associated Markers (% Positive Cells): CD19 = 1; CD19+CD5+ = 0; CD20 = 1; CD23 = 0; CD23+CD5+ = 0; Wilburn = 0; Lambda = 0; Wilburn:Lambda ratio = n/a T Cell Associated Markers [...] of Markers: 19 Summary of Marker Combinations: Wilburn/Lambda/5/19/38/45/10/20; FMC7/23/200/34/1d/45/07/29; 2/7/5/3/4/45/56/8 Flow Cytometry - Multiple Myeloma, Minimal Residual [...] and its performance characteristics determined by the [facility] Flow Cytometry Laboratory. It has not been cleared or approved by the U.S. Food and Drug Administration (FDA). The FDA has determined that such clearance or approval is not necessary. Specimen Performing Organization Address City/[facility] Ph one Number [facility] [address] [place] [address] * CHROMOSOMES BONE MARROW (10/04/2019 9:20 AM CDT) Pathologist [facility] Chromosomes Cytogenetics Report Available [facility] Bone Marrow in Epic Specimen Bone Marrow Narrative Performed At This result has an attachment that is n ot available. Performing Organization Address City/[facility] Ph one Number [facility] [address] [place] [address] * LEUKEMIA/LYMPHOMA PNL, BONE MARROW (10/04/2019 9:20 AM CDT) Pathologist [facility] Leuk/Lymph SEE PATHOLOGY REPORT [facility] Interpretation Specimen/LLM BONE MARROW [facility] Specimen Bone Marrow Performing Organization Address City/[facility] Ph one Number [facility] [address] [place] [address] * FE STAIN (10/04/2019 9:20 AM CDT) Bone Marrow FE SEE PATHOLOGY REPORT [facility] Specimen Bone Marrow - Bone Marrow Performing Organization Address [facility] Ph one Number [facility] [address] [place] [address] * BONE MARROW BIOPSY (10/04/2019 9:20 AM CDT) Bone Marrow Bx SEE PATHOLOGY REPORT [facility] Specimen Bone Marrow - Bone Marrow Performing Organization Address [facility] Ph one Number [facility] [address] [place] [address] * BONE MARROW ASP (10/04/2019 9:20 AM CDT) Bone Marrow Asp SEE PATHOLOGY REPORT [facility] Specimen Bone Marrow - Bone Marrow Performing Organization Address [facility] Ph one Number MAIN LAB [address] [place] [address] * URIC ACID (10/04/2019 6:54 AM CDT) Uric Acid 4.8 2.0 - 7.0 MG/DL MAIN LAB Specimen Performing Organization Address [facility] one Number MAIN LAB [address] [place] [address] * MANUAL DIFF (10/04/2019 6:54 AM CDT) Segmented 78 (H) 41 - 77 % MAIN LAB Neutrophils Lymphocytes 4 (L) 24 - 44 % MAIN LAB Monocytes 17 (H) 4 - 12 % MAIN LAB Eosinophil 1 0 - 5 % MAIN LAB Platelet NORMAL MAIN LAB Estimate RBC Morph POLY MAIN LAB OVALO Specimen Performing Organization Address [facility] Ph one Number MAIN LAB [address] [place] [address] * LDH-LACTATE DEHYDROGENASE (10/04/2019 6:54 AM CDT) Lactate 494 (H) 100 - 210 U/L MAIN LAB Dehydrogenase Specimen Blood Performing Organization Address [facility] Ph one Number MAIN LAB [address] [place] [address] * PHOSPHORUS (10/04/2019 6:54 AM CDT) Phosphorus 4.3 2.0 - 4.5 MG/DL [facility] Specimen Blood Performing Organization Address [facility] Ph one Number [facility] [address] [place] [address] * MAGNESIUM (10/04/2019 6:54 AM CDT) Pathologist [facility] Magnesium 2.0 1.6 - 2.6 mg/dL [facility] Specimen Blood Performing Organization Address [facility] one Number [facility] [address] [place] [id number] * BASIC METABOLIC PANEL (10/04/2019 6:54 AM CDT) Pathologist [facility] Sodium 142 137 - 147 MMOL/L [facility] [...] (L) >60 mL/min [facility] Comment: Filipino The eGFR is not validated f or use in drug dosing adjustments. Continue to use estimated creatinine clearance per dosing reference text. Please contact the Clinical Pharmacist for questions. eGFR 13 (L) >60 mL/min [facility] Filipino Comment: The eGFR is not validated for use in drug dosing adjustments. Continue to use estimated creatinine clearance per dosing reference text. Please contact the Clinical Pharmacist for questions. Specimen Blood Performing Organization Address [facility] Ph one Number [facility] [address] [place] [address] * CBC AND DIFF (10/04/2019 6:54 AM CDT) Pathologist [facility] White Blood 8.5 4.5 - 11.0 K/UL [...] Basophil Count Specimen Blood Performing Organization Address [facility] Ph one Number MAIN LAB [address] [place] [address] * PROTIME INR (PT) (10/04/2019 6:54 AM CDT) INR 1.4 (H) 0.8 - 1.2 [facility] Specimen Blood Performing Organization Address [facility] Ph one Number MAIN LAB [address] [place] [address] * NM PET SCAN WHOLEBODY (HEAD-TOES) (10/03/2019 4:39 PM CDT) Specimen Impressions Performed At Hypermetabolic michael, extensive extranodal (including pulmonary, hepatic, [facility] RAD RESULTS adrenal, renal, gastric, and pancreatic ), 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 on 09/11 5:32 AM. Dictated by Maximilian Osorio M.D. on 10/03/2019 5:12 PM. Narrative Performed At NE PET SCAN WHOLE BODY (HEAD-TOES) [facility] RESULTS Radiopharmaceutical: 10.7 mCi F-18 Fluo rodeoxyglucose (FDG) IV. Clinical Indication: Initial staging of lymphoma. Technique: PET imaging was performed fr om the vertex to the dose 60 minutes after tracer administration. Low dose n on-contrast CT imaging was performed for attenuation correction and localization purposes. Current mean hepatic SUV (reported for clinical quality rn purposes) is 2.1. Blood glucose level (at [...] purposes. Current mean hepatic SUV (reported for clinical quality rn purposes) is 2.1. Blood glucose level (at [...] CYTOMETRY (10/03/2019 1:45 PM CDT) PATHOLOGY [facility] MAIN LAB [facility] [email or web address] Rubin Mcintosh MD, Director of Flow Cytometry Laboratory Department of Pathology and Laboratory Medicine [address] [place] [address] Surgical Pathology Office: [phone] FLOW CYTOMETRY REPORT NAME: MARY TIM SURG PATH #: [id number] MR #: [id number] SPECIMEN CLASS: LC BILLING #: [id number] ALT ID #: LOCATION: 66 DATE OF PROCEDURE: 10/03/2019 AGE: [...] Cells): CD19 = 0; CD20 = 0; Wilburn = 0; Lambda = 0; Wilburn/Lambda ratio = n/a T Cell Associated Markers (% Positive Cells): CD5 = 93 Miscellaneous Markers (% Positive Cells): CD10 = 0; CD38 = 17; CD45 = 100 Cell Viability (%): qns Number of Cells Analyzed: 138 Total Number of Markers: 8 Summary of Marker Combinations: Wilburn/Lambda/5/19/38/45/10/20 This test was developed and its performance characteristics determined by the [facility] Flow Cytometry Laboratory. It has not been cleared or approved by the U.S. Food and Drug Administration (FDA). The FDA has determined that such clearance or approval is not necessary. Specimen Performing Organization Address [facility] one Number MAIN LAB [address] [place] [address] * CSF TUBE VOLUMES (10/03/2019 1:45 PM CDT) CSF Tube 1 3.0 mL [facility] RESULTS CSF Tube 2 3.0 mL [facility] RESULTS CSF Tube 3 2.0 mL [facility] RESULTS CSF Tube 4 0.0 mL [facility] RESULTS Specimen Performing Organization Address [facility] one Number [facility] RESULTS * LEUKEMIA/LYMPHOMA PANEL FLUID/TISSUE (10/03/2019 1:45 PM CDT) Leuk/Lymph SEE PATHOLOGY REPORT [facility] Interpretation Specimen/LLM CSF [facility] Specimen Cerebrospinal Fluid Performing Organization Address [facility] one Number MAIN LAB [address] [place] [address] * GLUCOSE-CSF (10/03/2019 1:45 PM CDT) Glucose,CSF 56 40 - 75 MG/DL [facility] Xanthochromia,C NONE [facility] SF Specimen Cerebrospinal fluid - Cerebrospinal Fluid Performing Organization Address [facility] one Number MAIN LAB [address] [place] [address] * TOTAL PROTEIN-CSF (10/03/2019 1:45 PM CDT) Total 30 15 - 45 MG/DL MAIN LAB Protein,CSF Specimen Cerebrospinal fluid - Cerebrospinal Fluid Performing Organization Address [facility] one Number MAIN LAB [address] [place] [address] * CELL COUNT W/DIFF-CSF (10/03/2019 1:45 PM [...] Interpretation, CSF Pathologist INTERPRETED BY ELOISA MILLS [facility] Signature M.D. By the PATH SIGNATURE ABOVE, I attest that I have personally formulated the final interpretation expressed in this report and that the above diagnosis is based upon my examination of the slides and/or other material indicated in this report. Specimen Cerebrospinal fluid - Cerebrospinal Fluid Performing Organization Address City/State/Zipcode Ph one Number MAIN LAB [address] [place] [address] * IR LUMBAR PUNCTURE (10/03/2019 1:41 PM [...] on 10/03/2019 1:56 PM. Performing Organization Address City/State/[facility] Ph one Number [facility] RESULTS * CYTOLOGY FLUIDS (10/03/2019 12:30 PM CDT) Cytology [facility] [email or web address] Department of Pathology and Laboratory Medicine [address] [place] [address] Surgical Pathology Office: [phone] CYTOLOGY REPORT NAME: MARY TIM CYTOLOGY #: [id number] MR #: [id number] ALT ID #: BILLING #: [id number] LOCATION: DATE OF PROCEDURE: 10/03/2019 AGE: 69 [...] Please also see concurrent flow cytometry report ([id number]). Attestation: By this signature, I attest that I have personally formulated the final interpretation expressed in this report and that the above diagnosis is based upon my examination of the slides and/or other material indicated in this report. +++Electronically Signed Out By+++ cj/10/04/2019 Interpreted by: Bev Valles MD, PhD Eric García, Resident Specimen Cerebrospinal Fluid Performing Organization Address [facility] one Number MAIN LAB [address] [place] [id number] * PROTIME INR (PT) (10/03/2019 10:36 AM CDT) INR 1.3 (H) 0.8 - 1.2 MAIN LAB Specimen Performing [facility] one Number MAIN LAB [address] [place] [address] * PHOSPHORUS (10/03/2019 10:36 AM CDT) Phosphorus 1.7 (L) 2.0 - 4.5 MG/DL MAIN LAB Specimen Performing Organization Address [facility] Ph one Number MAIN LAB [address] [place] [address] * MAGNESIUM (10/03/2019 10:36 AM CDT) Magnesium 1.8 1.6 - 2.6 mg/dL MAIN LAB Specimen Performing Organization Address [facility] one Number MAIN LAB [address] [place] [address] * LDH-LACTATE DEHYDROGENASE (10/03/2019 10:36 AM CDT) Lactate 586 (H) 100 - 210 U/L [facility] Dehydrogenase Specimen Performing Organization Address [facility] one Number [facility] [address] [place] [phone] * CBC AND DIFF (10/03/2019 10:36 AM CDT) White Blood 9.0 4.5 - 11.0 K/UL [facility] Cells RBC 2.75 (L) 4.0 - 5.0 M/UL [facility] Hemoglobin 8.5 (L) 12.0 - 15.0 GM/DL [facility] Hematocrit 24.8 (L) 36 - 45 % [facility] MCV 89.9 80 - 100 FL [facility] MCH 30.7 26 - 34 PG [facility] MCHC 34.2 32.0 - 36.0 G/DL [facility] RDW 13.4 11 - 15 % [facility] Platelet Count 248 150 - 400 K/UL [facility] MPV 6.4 (L) 7 - 11 FL [facility] Neutrophils 83 (H) 41 - 77 % [facility] Lymphocytes 4 (L) 24 - 44 % [facility] Monocytes 10 4 - 12 % [facility] Eosinophils 2 0 - 5 % [facility] Basophils 1 0 - 2 % [facility] Absolute 7.50 (H) 1.8 - [...] Ph one Number [facility] [address] [place] [address] * BASIC METABOLIC PANEL (10/03/2019 10:36 AM [...] (L) >60 mL/min [facility] Comment: Filipino The eGFR is not validated f or use in drug dosing adjustments. Continue to use estimated creatinine clearance per dosing reference text. Please contact the Clinical Pharmacist for questions. eGFR 30 (L) >60 mL/min [facility] Filipino Comment: The eGFR is not validated for use in drug dosing adjustments. Continue to use estimated creatinine clearance per dosing reference text. Please contact the Clinical Pharmacist for questions. Specimen Performing Organization Address City/State/Zipcode Ph one Number MAIN LAB [address] [place] [address] * HEMODIALYSIS INPATIENT (10/03/2019 8:20 AM CDT) Narrative Performed At Nasir Monreal RN 10/03/19 11:17 AM Hemodialysis Procedure Report Report recieved from Primary Care RNSolange RN at 0703. Hemodialysis treatment performed [facility] [place] [facility].. Patient ID verified and consent signed: [...] at 1215. Pt arrived via w/c from [id number] and [facility] cardenas to nbp, oxcemitry, and cardiac monitoring. Pt [...] at 1215. Pt arrived via w/c from [facility] and [facility] to nbp, oxcemitry, and cardiac monitoring. Pt [...] at 1215. Pt arrived via w/c from [facility] and [facility] to nbp, oxcemitry, and cardiac monitoring. Pt [...] on 10/02/2019 2:02 PM. Performing Organization Address [facility] one Number RAD RESULTS * POC GLUCOSE (10/02/2019 8:38 AM CDT) Glucose, POC 92 70 - 100 MG/DL MAIN LAB Specimen Performing Organization Address [facility] one Number MAIN LAB [address] [place] [address] * BNP (B-TYPE NATRIURETIC PEPTI) (10/02/2019 6:10 AM CDT) B Type 420.0 (H) 0 - 100 PG/ML MAIN LAB Natriuretic Peptide Specimen Performing Organization Address [facility] one Number MAIN LAB [address] [place] [address] * MAGNESIUM (10/02/2019 6:10 AM CDT) Magnesium 2.0 1.6 - 2.6 mg/dL MAIN LAB Specimen Blood Performing Organization Address [facility] one Number MAIN LAB [address] [place] [address] * PHOSPHORUS (10/02/2019 6:10 AM CDT) Phosphorus 4.7 (H) 2.0 - 4.5 MG/DL [facility] Specimen Blood Performing Organization Address [facility] Ph one Number [facility] [address] [place] [address] * CBC AND DIFF (10/02/2019 6:10 AM CDT) Pathologist [facility] White Blood 8.6 4.5 - 11.0 K/UL [facility] Cells RBC 2.59 (L) 4.0 - 5.0 M/UL [facility] Hemoglobin 8.1 (L) 12.0 - 15.0 GM/DL [facility] Hematocrit 23.9 (L) 36 - 45 % [facility] MCV 92.4 80 - 100 [...] Basophil Count Specimen Blood Performing Organization Address City/[facility] Ph one Number [facility] [address] [place] [address] * BASIC METABOLIC PANEL (10/02/2019 6:10 AM CDT) Pathologist [facility] Sodium 137 137 - 147 MMOL/L [facility] Potassium 4.6 3.5 - 5.1 MMOL/L [facility] Chloride 99 98 - 110 MMOL/L [facility] CO2 23 21 - 30 MMOL/L MAIN LAB Anion Gap 15 (H) 3 - 12 MAIN LAB Glucose 81 70 - 100 MG/DL MAIN LAB Blood Urea 70 (H) 7 - 25 MG/DL MAIN LAB Nitrogen Creatinine 6.47 (H) 0.4 - 1.00 MG/DL [facility] Calcium 9.1 8.5 - 10.6 MG/DL [facility] eGFR Non 6 (L) >60 mL/min [facility] Comment: Filipino The eGFR is not validated f or use in drug dosing adjustments. Continue to use estimated creatinine clearance per dosing reference text. Please contact the Clinical Pharmacist for questions. eGFR 8 (L) >60 mL/min [facility] Filipino Comment: The eGFR is not validated for use in drug dosing adjustments. Continue to use estimated creatinine clearance per dosing reference text. Please contact the Clinical Pharmacist for questions. Specimen Blood Performing Organization Address [facility] Ph one Number [facility] [address] [place] [address] * PROTIME INR (PT) (10/02/2019 6:10 AM CDT) INR 1.5 (H) 0.8 - 1.2 [facility] Specimen Blood Performing Organization Address [facility] one Number [facility] [address] [place] [address] * HIV-1/2 ANTIGEN/ANTIBODY SCREEN (10/02/2019 6:10 AM CDT) Pathologist [facility] HIV 1 and 2 AG Non-Reactive: Negative for PXSPZ-Bun-Cosfpezo: [facility] AB Screen HIV-1 Ag and HIV-1/2 specific Negative for HIV-1 antibodies. Ag and HIV-1/2 specif Specimen Performing Organization Address [facility] Ph one Number [facility] [address] [place] [address] * HEPATITIS C AB (10/02/2019 6:10 AM CDT) Anti HCV Non-Reactive: Antibodies to YDOXH-Vgi-Vrqrtwgb : [facility] HCV were not detected. Antibodies to HCV were not detected. Specimen Performing Organization Address [facility] Ph one Number [facility] [address] [place] [address] * HEPATITIS B CORE AB TOT (IGG+IGM) (10/02/2019 6:10 AM CDT) [facility] Anti HBc Total Non-Reactive: Antibodies to ZAMBH-Skz-Yojogchz : MAIN LAB HBV core antigen Antibodies to HBV (anti-HBc)were not detected. core antigen (anti-HBc Specimen Performing Organization Address [facility] one Number MAIN LAB [address] [place] [address] * HEPATITIS B SURFACE AG (10/02/2019 6:10 AM CDT) [facility] HBsAg Non-Reactive: HBs antigen not NNLK-Iwe-Unmfsej e: MAIN LAB detected HBs antigen not detected Specimen Performing Organization Address [facility] one Number MAIN LAB [address] [place] [address] * BETA 2 MICROGLOBULIN (10/02/2019 6:10 AM CDT) [facility] B2 29.7 (H) REFERENCE LAB Microglobulin Comment: Reference range: 1.1 to 2.4 Unit: mg/L Performed By: [employer] [address] [place] [id number] Filament Maker: Lakhwinder Zepeda MD, MS Specimen Performing Organization Address [facility] one Number REFERENCE LAB REFERENCE LAB See results for address. * POC GLUCOSE (10/01/2019 9:43 PM CDT) [facility] Glucose, POC 84 70 - 100 MG/DL MAIN LAB Specimen Performing Organization Address [facility] one Number MAIN LAB [address] [place] [address] * HEMODIALYSIS DATE (10/01/2019 5:33 PM CDT) Narrative Performed At Brandi Greco RN 10/01/2019 6:39 P M Pt to [facility] Dialysis bay 3 via bed by Answer.To, placed on monitoring and evaluation advisor, Rt SC CVC accessed and tx initiated per Dr mobley. Report from floor RN. UFG 1 L Pt tolerated tx well, 1L NET UF, Repo rt called to floor RN * COMPREHENSIVE METABOLIC PANEL (10/01/2019 3:30 PM CDT) [facility] Sodium 141 137 - 147 MMOL/L MAIN LAB Potassium 5.5 (H) 3.5 - [...] (L) >60 mL/min [facility] Comment: Filipino The eGFR is not validated f or use in drug dosing adjustments. Continue to use estimated creatinine clearance per dosing reference text. Please contact the Clinical Pharmacist for questions. eGFR 6 (L) >60 mL/min [facility] Filipino Comment: The eGFR is not validated for use in drug dosing adjustments. Continue to use estimated creatinine clearance per dosing reference text. Please contact the Clinical Pharmacist for questions. Specimen Blood Performing Organization Address City/State/Zipcode Ph one Number [facility] [address] [place] [address] * CBC (10/01/2019 3:30 PM CDT) White [...] - 34 PG [facility] MCHC 34.4 32.0 - 36.0 G/DL [facility] RDW 13.6 11 - 15 % [facility] Platelet Count 238 150 - 400 K/UL [facility] MPV 6.4 (L) 7 - 11 FL [facility] Specimen Blood Performing Organization Address City/State/Zipcode Ph one Number [facility] [address] [place] [address] * IR CENTRAL VENOUS CATHETER (10/01/2019 12:04 [...] female with acute kidney injury requiring hemodialysis. PROCESS COORDINATOR: Alonso Farfan DO and Jonathan Shirley M.D. [...] The needle was exchanged for a 5 Nigerian coa xial dilator. The inner dilator and the wire were removed and an 0.035 Amplatz superstiff wire was advanced into the IVC. The venotomy was serially dilated and a 16 Nigerian peel-away sheath was placed. Attention was turned [...] female with acute kidney injury requiring hemodialysis. PROCESS COORDINATOR: Alonso Farfan DO and Jonathan Shirley M.D. [...] The needle was exchanged for a 5 Nigerian coaxial dilator. The inner dilator and the wire were removed and an 0.035 Amplatz superstiff wire was advanced into the IVC. The venotomy was serially dilated and a 16 Nigerian peel-away sheath was placed. Attention was turned [...] on 10/01/2019 1:37 PM. Performing Organization Address [facility] one Number RAD RESULTS * ZINC (10/01/2019 10:12 AM CDT) Zinc 0.73 REFERENCE LAB Comment: Reference range: 0.66 to 1.10 Unit: mcg/mL ADDITIONAL INFORMATION This test was developed and its performance characteristics determined by [facility] in a manner consistent with CLIA requirements. This test has not been cleared or approved by the U.S. Food and Drug Administration. [facility], [address] [place] [address] Specimen Blood Performing Organization Address [facility] REFERENCE LAB REFERENCE LAB See results for address. * COPPER (10/01/2019 10:12 AM CDT) [facility] Copper, Serum 1.65 (H) REFERENCE LAB Comment: Reference range: 0.75 to 1.45 Unit: mcg/mL ADDITIONAL INFORMATION This test was developed and its performance characteristics determined by [facility] in a manner consistent with CLIA requirements. This test has not been cleared or approved by the U.S. Food and Drug Administration. [facility], [address] [place] [id number] Specimen Blood Performing Organization Address [facility] REFERENCE LAB REFERENCE LAB See results for address. * POC GLUCOSE (10/01/2019 9:36 AM CDT) Glucose, POC 88 70 - 100 MG/DL MAIN LAB Specimen Performing Organization Address [facility] one [facility] MAIN LAB [address] [place] [address] * URIC ACID (10/01/2019 6:37 AM CDT) Uric Acid 10.5 (H) 2.0 - 7.0 MG/DL MAIN LAB Specimen Performing Organization Address [facility] one Number [facility] [address] [place] [address] * LDH-LACTATE DEHYDROGENASE (10/01/2019 6:37 AM CDT) Lactate 521 (H) 100 - 210 U/L [facility] Dehydrogenase Specimen Performing Organization Address [facility] Ph one Number [facility] [address] [place] [address] * MAGNESIUM (10/01/2019 6:37 AM CDT) Magnesium 2.0 1.6 - 2.6 mg/dL [facility] Specimen Blood Performing Organization Address [facility] one Number [facility] [address] [place] [id number] * PHOSPHORUS (10/01/2019 6:37 AM CDT) Phosphorus 6.0 (H) 2.0 - 4.5 MG/DL [facility] Specimen Blood Performing Organization Address [facility] one Number [facility] [address] [place] [id number] * CBC AND DIFF (10/01/2019 6:37 AM CDT) White Blood 8.2 4.5 - 11.0 K/UL MAIN LAB Cells RBC 2.46 (L) 4.0 - 5.0 M/UL [facility] Hemoglobin 7.7 (L) 12.0 - 15.0 GM/DL [facility] Hematocrit 22.6 (L) 36 - 45 % MAIN LAB MCV 91.9 80 - 100 FL MAIN LAB MCH 31.4 26 - 34 PG MAIN LAB MCHC 34.1 32.0 - 36.0 G/DL MAIN LAB RDW 13.7 11 - 15 % [facility] Platelet Count 247 150 - 400 K/UL MAIN LAB MPV 6.6 (L) 7 - 11 FL MAIN LAB Neutrophils 77 41 - 77 % [facility] Lymphocytes 7 (L) 24 - 44 % [facility] Monocytes 14 (H) 4 - 12 % [facility] Eosinophils 1 0 - 5 % [facility] Basophils 1 0 - 2 % MAIN LAB Absolute 6.42 1.8 - 7.0 [...] Basophil Count Specimen Blood Performing Organization Address [facility] one Number [facility] [address] [place] [address] * BASIC METABOLIC PANEL (10/01/2019 6:37 AM [...] (L) >60 mL/min [facility] Comment: Filipino The eGFR is not validated f or use in drug dosing adjustments. Continue to use estimated creatinine clearance per dosing reference text. Please contact the Clinical Pharmacist for questions. eGFR 6 (L) >60 mL/min [facility] Filipino Comment: The eGFR is not validated for use in drug dosing adjustments. Continue to use estimated creatinine clearance per dosing reference text. Please contact the Clinical Pharmacist for questions. Specimen Blood Performing Organization Address [facility] one Number MAIN LAB [address] [place] [address] * PROTIME INR (PT) (10/01/2019 6:37 AM CDT) INR 1.4 (H) 0.8 - 1.2 [facility] Specimen Blood Performing Organization Address [facility] one Number MAIN LAB [address] [place] [address] * CBC (10/01/2019 12:05 AM CDT) White Blood 7.7 4.5 - 11.0 K/UL [facility] MAIN [facility] Cells RBC 2.68 (L) 4.0 - 5.0 M/UL [facility] Hemoglobin 8.4 (L) 12.0 - 15.0 GM/DL [facility] Hematocrit 24.6 (L) 36 - 45 % [facility] MCV 91.7 80 - 100 FL [facility] MCH 31.2 26 - 34 PG [facility] MCHC 34.0 32.0 - 36.0 G/DL [facility] RDW 13.3 11 - 15 % [facility] Platelet Count 233 150 - 400 K/UL [facility] MPV 6.5 (L) 7 - 11 FL [facility] Specimen Blood Performing Organization Address [facility] one Number [facility] [address] [place] [address] * CBC (09/30/2019 3:14 PM CDT) White [...] MAIN LAB Specimen Blood Performing Organization Address [facility] one Number [facility] [address] [place] [address] * IR RENAL BIOPSY (09/30/2019 11:33 AM CDT) Specimen Impressions Performed At Successful ultrasound guided left kidne y biopsy as described. Specimen was [facility] RAD RESULTS confirmed adequate by the cytopathologi st at time of procedure. Mak Pinto M.D., the attending radio logist, was present for the procedure, personally reviewed the images, and for mulated the interpretations and opinions expressed in this report. @TT Finalized by MAK LYNCH on 09/30/2019 1:3 5 PM. Dictated by MAK LYNCH on 09/30/2019 1:34 PM. Narrative Performed At Ultrasound Guided Percutaneous [place] Kidney Biopsy [facility] RAD RESULTS INDICATION: Renal failure PROCESS COORDINATOR: Mak Lynch M.D. MEDICATIONS: I was personally [...] 09/30/2019 1:38 PM CDT Ultrasound Guided Percutaneous [place] Kidney Biopsy INDICATION: Renal failure PROCESS COORDINATOR: Mak Lynch M.D. MEDICATIONS: I was personally [...] on 09/30/2019 1:34 PM. Performing Organization Address [facility] one Number [facility] RAD RESULTS * MISCELLANEOUS SURGICAL PATHOLOGY REFERENCE LAB TEST (09/30/2019 10:15 AM CDT) Pathologist [facility] Test EMTO, Electron Microscopy, REFERENCE LAB Technical Only, [id number] Reference Lab PERFORMED AT [facility] Results Ref Lab Will be reported as an REFERENCE LAB addendum in the pathology report. Specimen Mail [id number] REFERENCE LAB Specimen Performing Organization Address [facility] one Number REFERENCE LAB REFERENCE LAB See results for address. * [facility] TEST (09/30/2019 10:15 AM CDT) Pathologist [facility] EMTO, Electron Microscopy, REFERENCE LAB Miscellaneous Technical Only, [id number] Test Info [place] SEE COMMENTS 10/03/2019 02:37 REFEREN CE LAB Miscellaneous PM Result Test Result Flag Unit RefValue ------ Electron Microscopy, Technical Only Electron Microscopy Testing Performed Test Performed by: [place] [address] Hand Bobbin Cleaner: Tad Valentine M.D. Ph.D.; CLIA# [id number] Specimen Performing Organization Address City/State/[facility] Ph one Number REFERENCE LAB REFERENCE LAB See results for address. * PATHOLOGY/CYTOLOGY REQUEST (09/30/2019 10:15 AM CDT) PATHOLOGY [facility] [email or web address] Department of Pathology and Laboratory Medicine [address] [place] [address] Surgical Pathology Office: [phone] SURGICAL PATHOLOGY REPORT NAME: MARY TIM SURG PATH #: [id number] MR #: [id number] SPECIMEN CLASS: SR BILLING #: [id number] ALT ID #: LOCATION: 42 DATE OF [...] ############ Final Diagnosis: A and B. Kidney (barrow), left, needle core biopsy: Diffuse large B-cell [...] conditions. Electron microscopy: Pending Pursuant to the Manager Care Management Program at the [facility] Pathology Department, selected slides from this case [...] material indicated in this report. +++ +++ [facility]/09/30/2019 ############################## ############################## ############ Material Received: A: left barrow renal biopsy B: left barrow renal biopsy IF History: 69-year-old female with history of concern for infiltrative renal disease Gross Description: A. Received in formalin labeled "left barrow renal biopsy" is a 0.9 cm in length by 0.1 cm in diameter core of hoffmann-red tissue. The specimen is entirely submitted in cassette A1. (cg) B. Received in Chadwick's solution labeled "left barrow renal biopsy IF" is a 1.1 cm in length by 0.1 cm in diameter core of hoffmann-red tissue. The specimen is entirely submitted for immunofluorescence studies. (cg) cg/09/30/2019 If immunohistochemical stains and/or in situ hybridization are cited in this report, the performance characteristics were determined by the Department of Pathology and Laboratory Medicine of the [facility] ([employer]) in compliance with CLIA'88 regulations. [...] of Pathology and Laboratory Medicine of the [facility]. It has not been cleared or approved by the FDA. The FDA has determined that such clearance or approval is not necessary. Specimen Kidney Performing Organization Address [facility] Ph one Number [facility] [address] [place] [address] * MAGNESIUM (09/30/2019 6:02 AM CDT) Magnesium 1.9 1.6 - 2.6 mg/dL [facility] Specimen Blood Performing Organization Address [facility] Ph one Number [facility] [address] [place] [address] * PHOSPHORUS (09/30/2019 6:02 AM CDT) Phosphorus 5.2 (H) 2.0 - 4.5 MG/DL [facility] Specimen Blood Performing Organization Address [facility] Ph one Number [facility] [address] [place] [address] * CBC AND DIFF (09/30/2019 6:02 AM CDT) White Blood 6.5 4.5 - 11.0 K/UL [facility] Cells RBC 2.85 (L) 4.0 - 5.0 M/UL [facility] Hemoglobin 8.8 (L) 12.0 - 15.0 GM/DL [facility] Hematocrit 25.9 (L) 36 - 45 % [facility] MCV 90.8 80 - 100 FL [facility] MCH 30.9 26 - 34 PG [facility] MCHC 34.1 32.0 - 36.0 G/DL [facility] RDW 13.4 11 - 15 % [facility] Platelet Count 245 150 - 400 K/UL [facility] MAIN LAB [...] Ph one Number [facility] [address] [place] [address] * BASIC METABOLIC PANEL (09/30/2019 6:02 AM [...] (L) >60 mL/min [facility] Comment: Filipino The eGFR is not validated f or use in drug dosing adjustments. Continue to use estimated creatinine clearance per dosing reference text. Please contact the Clinical Pharmacist for questions. eGFR 7 (L) >60 mL/min [facility] Filipino Comment: The eGFR is not validated for use in drug dosing adjustments. Continue to use estimated creatinine clearance per dosing reference text. Please contact the Clinical Pharmacist for questions. Specimen Blood Performing Organization Address [facility] one Number MAIN LAB [address] [place] [address] * PROTIME INR (PT) (09/30/2019 6:02 AM CDT) INR 1.3 (H) 0.8 - 1.2 [facility] Specimen Blood Performing Organization Address [facility] one Number MAIN LAB [address] [place] [address] * ELECTROPHORESIS-UR RAN (09/29/2019 10:10 PM CDT) [...] MAIN LAB Interpretation Pathologist INTERPRETED BY FROILAN MCMULLEN MAIN L AB Signature VIKKI GANT MD By the PATH SIGNATURE ABOVE, I attest that I have personally formulated the final interpretation expressed in this report and that the above diagnosis is based upon my examination of the slides and/or other material indicated in this report. Specimen Urine Performing Organization Address [facility] one Number [facility] [address] [place] [address] * PHOSPHORUS (09/29/2019 5:51 AM CDT) Phosphorus 5.0 (H) 2.0 - 4.5 MG/DL [facility] Specimen Blood Performing Organization Address [facility] one Number [facility] [address] [place] [address] * MAGNESIUM (09/29/2019 5:51 AM CDT) Magnesium 1.9 1.6 - 2.6 mg/dL [facility] Specimen Blood Performing Organization Address [facility] Ph one Number [facility] [address] [place] [address] * BASIC METABOLIC PANEL (09/29/2019 5:51 AM CDT) Pathologist [facility] Sodium 139 137 - 147 MMOL/L KU [...] (L) >60 mL/min [facility] Comment: Filipino The eGFR is not validated f or use in drug dosing adjustments. Continue to use estimated creatinine clearance per dosing reference text. Please contact the Clinical Pharmacist for questions. eGFR 8 (L) >60 mL/min [facility] Filipino Comment: The eGFR is not validated for use in drug dosing adjustments. Continue to use estimated creatinine clearance per dosing reference text. Please contact the Clinical Pharmacist for questions. Specimen Blood Performing Organization Address City/[facility]/Zipcode Ph one Number [facility] [address] [place] [address] * CBC AND DIFF (09/29/2019 5:51 AM CDT) Pathologist [facility] White Blood 6.5 4.5 - 11.0 K/UL [...] Basophil Count Specimen Blood Performing Organization Address City/[facility] Ph one Number [facility] [address] [place] [address] * PHOSPHORUS (09/28/2019 6:58 AM CDT) Phosphorus 4.8 (H) 2.0 - 4.5 MG/DL [facility] Specimen Blood Performing Organization Address [facility] Ph one Number [facility] [address] [place] [address] * MAGNESIUM (09/28/2019 6:58 AM CDT) Magnesium 1.9 1.6 - 2.6 mg/dL [facility] Specimen Blood Performing Organization Address [facility] Ph one Number [facility] [address] [place] [address] * BASIC METABOLIC PANEL (09/28/2019 6:58 AM [...] (L) >60 mL/min [facility] Comment: Filipino The eGFR is not validated f or use in drug dosing adjustments. Continue to use estimated creatinine clearance per dosing reference text. Please contact the Clinical Pharmacist for questions. eGFR 8 (L) >60 mL/min [facility] Filipino Comment: The eGFR is not validated for use in drug dosing adjustments. Continue to use estimated creatinine clearance per dosing reference text. Please contact the Clinical Pharmacist for questions. Specimen Blood Performing Organization Address [facility] one Number [facility] [address] [place] [address] * CBC AND DIFF (09/28/2019 6:58 AM [...] Basophil Count Specimen Blood Performing Organization Address City/[facility] one Number MAIN LAB [address] [place] [address] * CYTOLOGY BRONCH LAVAGE (09/27/2019 6:00 PM CDT) Cytology [facility] [email or web address] Department of Pathology and Laboratory Medicine [address] [place] [address] Surgical Pathology Office: [phone] CYTOLOGY REPORT NAME: MARY TIM CYTOLOGY #: [id number] MR #: [id number] ALT ID #: KYING #: [id number] LOCATION: 64 DATE OF PROCEDURE: 09/27/2019 AGE: [...] cytology report ([id number]) and surgical pathology report ([id number]). Attestation: By this signature, I attest that I have personally formulated the final interpretation expressed in this report and that the above diagnosis is based upon my examination of the slides and/or other material indicated in this report. +++Electronically Signed Out By+++ mitchellw/10/02/2019 Interpreted by: Bev Valles MD, PhD Gómez Cooper MD Fellow Specimen Bronchial Alveolar Lavage,RONI Performing Organization Address City/State/Zipcode Ph one Number [facility] [address] [place] [address] * FLOW CYTOMETRY (09/27/2019 5:32 PM CDT) PATHOLOGY [facility] MAIN LAB [facility] [email or web address] Rubin Mcintosh MD, Director of Flow Cytometry Laboratory Department of Pathology and Laboratory Medicine [address] [place] [address] Surgical Pathology Office: [phone] FLOW CYTOMETRY REPORT NAME: MARY TIM SURG PATH #: [id number] MR #: [id number] SPECIMEN CLASS: LC BILLING #: [id number] ALT ID #: LOCATION: DATE OF PROCEDURE: [...] 17; CD23 = 1; CD23+CD5+ = 0; Wilburn = 9; Lambda = 6; Wilburn:Lambda ratio = 1.5 T Cell Associated Markers [...] of Markers: 19 Summary of Marker Combinations: Wilburn/Lambda/5/19/38/45/10/20; FMC7/23/200/34/1d/45//; 2/7/5/3/4/45/56/8 This test was developed and its performance characteristics determined by the [facility] Flow Cytometry Laboratory. It has not been cleared or approved by the U.S. Food and Drug Administration (FDA). The FDA has determined that such clearance or approval is not necessary. Specimen Performing Organization Address City/[facility] Ph one Number [facility] [address] [place] [address] * GRAM STAIN (09/27/2019 5:32 PM CDT) Battery Name GRAM STAIN MAIN LAB Specimen BRONCHIAL ALVEOLAR LAVAGE, RONI [facility] Description Special NONE [facility] Requests Gram Stain FEW [facility] NEUTROPHILS MANY RBC'S NO ORGANISMS SEEN Report Status FINAL [facility] 09/27/2019 Specimen Bronchial Alveolar Lavage,RONI Performing Organization Address City/[facility] Ph one Number [facility] [address] [place] [address] * CELL COUNT W/DIFF-FLUIDS (09/27/2019 5:32 PM CDT) Segmented 9 % MAIN LAB Neutrophils, Fluid Lymphocytes,Flu 3 % MAIN LAB id Monocyte/Histo, 88 % MAIN LAB Fluid Fluid Source BRONCHIAL ALVEOLAR LAVAGE MAIN LAB Pathology HEMORRHAGIC FLUID MAIN LAB Interpretation, Fluid Pathologist INTERPRETED BY ELOISA MILLS [facility] Signature M.D. By the PATH SIGNATURE ABOVE, I attest that I have personally formulated the final interpretation expressed in this report and that the above diagnosis is based upon my examination of the slides and/or other material indicated in this report. Specimen Fluid - Bronchial Alveolar Lavage Performing Organization Address [facility] one Number [facility] [address] [place] [address] * HERPES SIMPLEX PCR - NON-BLOOD (09/27/2019 5:32 PM CDT) Specimen, BRONCHIAL ALVEOLAR LAVAGE [facility] Herpes Herpes Simplex HSV 1 and 2 NOT DETECTED HSVND-HSV 1 and 2 [facility] PCR Comment: NOT DETECTED [employer] HSV 1&2 Assay is a qualitative real-time PCR test for the direct detection and differentiation of HSV 1 and 2 DNA. This assay is FDA approved for testing cutaneous or mucocutaneous lesions from symptomatic patients. Performance on modifications of this test as well as other specimen types has been validated by the Department of Pathology and Laboratory Medicine at the [facility]. Specimen Bronchial Alveolar Lavage Performing Organization Address [facility] one Number [facility] [address] [place] [address] * CMV QUANT PCR-FLUID (09/27/2019 5:32 PM CDT) Specimen, CMV BRONCHIAL ALVEOLAR LAVAGE [facility] CMV by CMV DNA NOT DETECTED CMVND-CMV DNA NOT [facility] PCR-fluid DETECTED CMV This assay is an off label use [facility] Comment-Fluid of the [employer] RealTime Ass[employer] y for detection of CMV in fluids and has not been approved by the US Food and Drug Administration. The performance characteristics were determined by the [facility] Laboratory. The lower limit of detection is 50IU/mL. Specimen Fluid - Bronchial Alveolar Lavage Performing Organization Address [facility] one Number [facility] [address] [place] [address] * CULTURE-RESP,LOWER W/SENSITIVITY (09/27/2019 5:32 PM CDT) Battery Name LOWER RESP CULTURE [facility] Specimen BRONCHIAL ALVEOLAR LAVAGE, RONI [facility] Description Special NONE [facility] Requests Direct Gram FEW [facility] Stain NEUTROPHILS MANY RBC'S NO ORGANISMS SEEN Culture NO GROWTH 2 DAYS MAIN LAB Report Status FINAL MAIN LAB 09/29/2019 Specimen Bronchial Alveolar Lavage,RONI Performing Organization Address [facility] Ph one Number MAIN LAB [address] [place] [address] * LEUKEMIA/LYMPHOMA PANEL FLUID/TISSUE (09/27/2019 5:32 PM CDT) Leuk/Lymph SEE PATHOLOGY REPORT MAIN LAB Interpretation Specimen/LLM LYMPH NODE [facility] Specimen Lymph Node (Specify) Performing Organization Address City/[facility] Ph one Number [facility] [address] [place] [address] * CYTOLOGY FNA LYMPH NODE (09/27/2019 5:30 PM CDT) Cytology [facility] [email or web address] Department of Pathology and Laboratory Medicine [address] [place] [address] Surgical Pathology Office: [phone] CYTOLOGY REPORT NAME: MARY TIM SURG PATH #: [id number] MR #: [id number] ALT ID #: BILLING #: [id number] LOCATION: DATE OF PROCEDURE: 09/27/2019 AGE: 69 SEX: F DATE RECEIVED: 09/27/2019 : 1950 TIME RECEIVED: 17:42 PHYSICIAN: BARNDEN CHOE DATE OF REPORT: 10/01/2019 COPY TO: [...] determination of adequacy was performed by the cablemanRHONA, on Diff-Quik stained slide(s). Pass one adequate for evaluation. Passes two and three were submitted in RPMI for cell block. Pass four was submitted in RPMI for flow cyotmetry. B. ( 1 DQ direct smear, 1 Pap direct smear, 1 cell block) Rapid determination of adequacy was performed by the cablemanRHONA, on Diff-Quik stained slide(s). Pass one adequate for evaluation. Passes two and three were submitted in RPMI for cell block. C. ( 1 DQ direct smear, 1 Pap direct smear, 1 cell block) Rapid determination of adequacy was performed by the cablemanRHONA, on Diff-Quik stained slide(s). Pass one adequate for evaluation. Passes two and three were submitted in RPMI for cell block. ############################## ############################## ############ Final Diagnosis: A. Lymph Node- Station 7, EBUS-FNA: Polymorphous population of lymphocytes. Please also see concurrent flow cytometry report ([id number]), which reports negative phenotypic study. B. Lymph [...] City/State/Zipcode Ph one Number MAIN LAB [address] [place] [address] * BRONCHOSCOPY (09/27/2019 4:30 PM CDT) Provation Patient Name: Mary MCMULLEN OTHE R Report Procedure Date: 09/27/2019 4:30 RESULT S PM CSN: [id number] Date of : 1950 Gender: Female Attending Physician: Branden Choe MD Procedure: Bronchoscopy Indications: Abnormal CT scan of chest, Bilateral hilar lymphadenopathy Providers: Branden Choe MD (Doctor), Milo Gutierrez (Fellow), George Bacon (Nurse), Silvia Meier, Oyster Picker (Oyster Picker) Referring Physician: Deena Winchester Unknown Medications: Tetricaine [...] 5:40:31 PM Procedure Code(s): --- Professional --- 24538, Bronchoscopy, rigid or flexible, including fluoroscopic guidance, when performed; with endobronchial ultrasound (EBUS) guided transtracheal and/or transbronchial sampling (eg, aspiration[s]/biopsy[ies]), 3 or more mediastinal and/or hilar lymph node stations or structures 09199, Bronchoscopy, rigid or flexible, including fluoroscopic guidance, when performed; with bronchial or endobronchial biopsy(s), single or multiple sites 77443, Bronchoscopy, rigid or flexible, including fluoroscopic guidance, when performed; with bronchial alveolar lavage 67597, Bronchoscopy, rigid or flexible, including fluoroscopic guidance, when performed; with transendoscopic endobronchial ultrasound (EBUS) during bronchoscopic diagnostic or therapeutic intervention(s) for peripheral lesion(s) (List separately in addition to code for primary procedure[s]) CPT copyright 2019 [employer]. All rights reserved. The codes documented in this report are preliminary and upon observation assistant review may be revised to meet current compliance requirements. Attending Participation: I was present and participated during the entire procedure, including non-ruiz portions. MD Branden Patricia MD 09/27/2019 8:19:11 PM The attending physician has electronically signed and finalized this document. Milo Gutierrez, Number of Addenda: 0 Note Initiated On: 09/27/2019 4:30 PM Specimen Performing Organization Address [facility] one Number KU OTHER RESULTS * IMMUNOFIXATION, SERUM (IFES) (09/27/2019 11:01 AM CDT) Pathologist [facility] Immuno NO PARAPROTEIN SEEN KU MAIN LAB Fix-Serum Corrected on 10/03 AT 1622: previously reported as IGG KAPPA PARAPROTEIN Pathologist INTERPRETED BY FROILAN CHASE M.D. KU MAIN L AB Signature VIKKI GANT MD By the PATH SIGNATURE ABOVE, I attest that I have personally formulated the final interpretation expressed in this report and that the above diagnosis is based upon my examination of the slides and/or other material indicated in this report. Specimen Blood Performing Organization Address [facility] one Number MAIN LAB [address] [place] [address] * ELECTROPHORESIS-SERUM PROTEIN (09/27/2019 11:01 AM CDT) Pathologist [facility] Total 5.3 (L) 6.0 - 8.0 G/DL [...] LAB - SEP Pathologist INTERPRETED BY FROILAN MCMULLEN MAIN L AB Signature VIKKI GANT MD By the PATH SIGNATURE ABOVE, I attest that I have personally formulated the final interpretation expressed in this report and that the above diagnosis is based upon my examination of the slides and/or other material indicated in this report. Specimen Blood Performing Organization Address [facility] Ph one Number KU MAIN LAB [address] [place] [address] * LACTIC ACID(LACTATE) (09/27/2019 11:01 AM CDT) Pathologist [facility] Lactic Acid 2.1 (H) 0.5 - 2.0 MMOL/L KU MAIN LAB Specimen Blood Performing Organization Address [facility] one Number MAIN LAB [address] [place] [address] * IGG SUBCLASSES (09/27/2019 11:01 AM CDT) Pathologist [facility] Total IgG 735 (L) REFERENCE LAB Comment: Reference range: 767 to 1590 Unit: mg/dL [facility], [address] [place] [address] IgG Subclasses 363 REFERENCE LAB #1 Comment: Reference range: 341 to 894 Unit: mg/dL [facility], [address] [place] [address] 07126 IgG Subclasses 166 (L) MG/DL REFERENCE LAB #2 Comment: Reference range: 171 to 632 [facility], [address] [place] [address] 32641 IgG Subclasses 158.0 (H) REFERENCE LAB #3 Comment: Reference range: 18.4 to 106.0 Unit: mg/dL [facility], [address] [place] [address] 18487 IgG Subclasses 4.5 REFERENCE LAB #4 Comment: Reference range: 2.4 to 121.0 Unit: mg/dL [facility], [address] [place] [address] Specimen Blood Performing Organization Address City/[facility] Ph one Number REFERENCE LAB REFERENCE LAB See results for address. * ALPHA FETO PROTEIN (AFP) (09/27/2019 11:01 AM CDT) Pathologist [facility] Alpha Feto 1.1 0.0 - 15.0 NG/ML MAIN LAB Protein Specimen Blood Performing Organization Address City/[facility] Ph one Number MAIN LAB [address] [place] [address] * PATHOLOGY SURGICAL < 5 SPECIMENS (09/27/2019 7:06 AM CDT) Pathologist [facility] PATHOLOGY [facility] MAIN [email or web address] Department of Pathology and Laboratory Medicine [address] [place] [address] Surgical Pathology Office: [phone] SURGICAL PATHOLOGY REPORT NAME: MARY TIM SURG PATH #: [id number] MR #: [id number] SPECIMEN CLASS: SR BILLING #: [id number] ALT ID #: LOCATION: DATE OF PROCEDURE: [...] cg/09/30/2019 Specimen Other (Specify) Performing Organization Address City/State/Zipcode Ph one Number MAIN LAB [address] [place] [address] * BASIC METABOLIC PANEL (09/27/2019 4:11 AM CDT) Sodium 136 (L) 137 - 147 MMOL/L MAIN LAB Potassium 4.4 3.5 - 5.1 MMOL/L MAIN LAB Chloride 101 98 - 110 MMOL/L MAIN LAB CO2 19 (L) 21 - [...] (L) >60 mL/min KU MAIN LAB Comment: [place] The eGFR is not validated f or use in drug dosing adjustments. Continue to use estimated creatinine clearance per dosing reference text. Please contact the Clinical Pharmacist for questions. eGFR 7 (L) >60 mL/min KU MAIN LAB [place]ino Comment: The eGFR is not validated for use in drug dosing adjustments. Continue to use estimated creatinine clearance per dosing reference text. Please contact the Clinical Pharmacist for questions. Specimen Blood Performing Organization Address City/State/Zipcode Ph one Number KU MAIN LAB [address] [place] [address] * CBC AND DIFF (09/27/2019 4:11 AM [...] Count Absolute 0.12 0 - 0.45 K/UL MAIN LAB Eosinophil Count Absolute 0.06 0 - 0.20 K/UL MAIN LAB Basophil Count Specimen Blood Performing Organization Address [facility] one Number MAIN LAB [address] [place] [address] * LEUKEMIA-LYMPHOMA PANEL BLOOD (09/27/2019 4:11 AM CDT) Leuk/Lymph SEE PATHOLOGY REPORT KU MAIN LAB Interpretation Specimen/LLM BLOOD MAIN LAB Specimen Blood Performing Organization Address [facility] one Number MAIN LAB [address] [place] [address] * CA19.9 (09/27/2019 4:11 AM CDT) CA 19-9 93 (H) <35 U/ml MAIN LAB Specimen Blood Performing Organization Address [facility] one Number MAIN LAB [address] [place] [address] * FLOW CYTOMETRY (09/27/2019 4:00 AM CDT) PATHOLOGY [facility] MAIN LAB [facility] [email or web address] Rubin Mcintosh MD, Director of Flow Cytometry Laboratory Department of Pathology and Laboratory Medicine [address] [place] [address] Surgical Pathology Office: [phone] FLOW CYTOMETRY REPORT NAME: MARY TIM SURG PATH #: [id number] MR #: [id number] SPECIMEN CLASS: LC BILLING #: [id number] ALT ID #: LOCATION: 64 DATE OF [...] in this report. +++Electronically Signed Out By+++ [facility]/09/27/2019 Interpreted by: Eloisa Mills MD 09/30/2019 ############################## ############################## ############ Lab Data: Flow Cytometry - Lymphoma Panel B Cell Associated Markers (% Positive Cells): CD19 = 0; CD19+CD5+ = 0; CD20 = 0; CD23 = 0; CD23+CD5+ = 0; Wilburn = 0; Lambda = 0; Wilburn:Lambda ratio = 5.4 T Cell Associated Markers [...] of Markers: 19 Summary of Marker Combinations: Wilburn/Lambda/5/19/38/45/10/20; FMC7/23/200/34/1d/45/07/29; 2/7/5/3/4/45/56/8 This test was developed and its performance characteristics determined by the [facility] Flow Cytometry Laboratory. It has not been cleared or approved by the U.S. Food and Drug Administration (FDA). The FDA has determined that such clearance or approval is not necessary. Specimen Performing Organization Address [facility] Ph one Number MAIN LAB [address] [place] [address] * LIPASE (09/26/2019 11:26 AM CDT) Pathologist [facility] Lipase 118 (H) 11 - 82 U/L MAIN LAB Specimen Performing Organization Address [facility] one Number MAIN LAB [address] [place] [address] * CBC (09/26/2019 11:26 AM CDT) Pathologist [facility] White Blood 6.5 4.5 - 11.0 K/UL KU MAIN LAB Cells RBC 3.22 (L) 4.0 - 5.0 M/UL KU MAIN LAB Hemoglobin 10.1 (L) 12.0 - 15.0 GM/DL KU MAIN LAB Hematocrit 28.8 (L) 36 - 45 % KU MAIN LAB MCV 89.5 80 - 100 FL KU MAIN LAB MCH 31.4 26 - 34 PG MAIN LAB MCHC 35.1 32.0 - 36.0 G/DL MAIN LAB RDW 13.1 11 - 15 % KU MAIN LAB Platelet Count 232 150 - 400 K/UL MAIN LAB MPV 6.7 (L) 7 - 11 FL MAIN LAB Specimen Performing Organization Address [facility] one Number MAIN LAB [address] [place] [address] * BASIC METABOLIC PANEL (09/26/2019 11:26 AM CDT) Sodium 135 (L) 137 - [...] (L) >60 mL/min KU MAIN LAB Comment: [place] The eGFR is not validated f or use in drug dosing adjustments. Continue to use estimated creatinine clearance per dosing reference text. Please contact the Clinical Pharmacist for questions. eGFR 8 (L) >60 mL/min KU MAIN LAB [place] Comment: The eGFR is not validated for use in drug dosing adjustments. Continue to use estimated creatinine clearance per dosing reference text. Please contact the Clinical Pharmacist for questions. Specimen Performing Organization Address City/State/Zipcode Ph one Number KU MAIN LAB [address] [place] [address] * CT ABD/PELV WO CONTRAST (09/26/2019 10:59 AM CDT) Specimen Impressions Performed At 1. Abnormalities involving the liver, g allbladder, kidneys, right adrenal gland KU RAD RESULTS and retroperitoneum. 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 [place] disease and IgG-4 related disease are additiona [...] MAIN FEV1/FVC-Pre 80 % KU PFT MAIN [id number] 66 % KU PFT MAIN [id number] 1.06 L/sec KU PFT MAIN [id number]-%Pred-P 55 % KU PFT MAIN re RVN2-Pre [...] MAIN DLVA-#SD -1.019 ml/min/mmHg/L KU PFT MAIN VBA2GEH-Tdb 76 % KU PFT MAIN Specimen Narrative Performed At PFT MAIN Clinical history:->abnormal CT concerni ng for ILD/sarcoidosis Patient on bronchodilator therapy?->No Is this a pre-surgical evaluation?->No Performing Organization Address [facility] Ph one Number KU PFT MAIN [address] [place], [place] [address] * CALCIUM-URINE RANDOM (09/25/2019 9:25 PM CDT) Calcium-Urine,R 0.7 MG/DL KU MAIN LAB andom Specimen Urine - Urine Performing Organization Address City/[facility] Ph one Number KU MAIN LAB [address] [place] [address] * SCL 70 ANTIBODIES (09/25/2019 5:15 PM CDT) SCL70 Ab <0.2Comment: Interpretation: <1.0 AI K U MAIN LAB Negative Specimen Blood Performing Organization Address [facility] Ph one Number MAIN LAB [address] [place] [address] * CARDIOLIPIN AB IGG/IGM (09/25/2019 5:15 PM CDT) Cardiolipin, <1.6 <20.0 GPL/ML MAIN LAB IgG Cardiolipin, 1.2 <20.0 MPL/ML MAIN LAB IgM Specimen Blood Performing Organization Address [facility] one Number MAIN LAB [address] [place] [address] * JOJO 1 ANTIBODIES (09/25/2019 5:15 PM CDT) Jojo 1 Antibody <0.2Comment: Interpretation: <1.0 AI K U MAIN LAB Negative Specimen Blood Performing Organization Address [facility] one Number MAIN LAB [address] [place] [address] * MPO/PR3 W REFLEX TO ANCA (09/25/2019 5:15 PM CDT) Pathologist [facility] Myeloperoxidase <0.2Comment: Interpretation: <1.0 AI MAIN LAB AB Negative Serine <0.2Comment: Interpretation: <1.0 AI U MAIN LAB Protease3 AB Negative Specimen Blood Performing Organization Address [facility] one Number MAIN LAB [address] [place] [address] * IMMUNOGLOBULINS-IGA,IGG,IGM (09/25/2019 5:15 PM CDT) IgG 707 (L) 762 - 1,488 MG/DL MAIN LAB IgA 110 70 - 390 MG/DL MAIN LAB IgM 60 38 - 328 MG/DL MAIN LAB Specimen Blood Performing Organization Address [facility] Ph one Number MAIN LAB [address] [place] [address] * HYPERSENSITIVITY PNEUMONITIS IGG (09/25/2019 5:15 PM CDT) [facility] 9.1 REFERENCE LAB [facility] Comment: Reference [...] clinical history. The test method was the [employer] ImmunoCAP. . *This test was developed and its performance characteristics determined by [employer] [facility]. It has not been cleared or approved by the U.S. Food and Drug Administration. Testing Performed At: [facility] [address] [place] [id number] CLIA ID: [id number] Specimen Blood Performing Organization Address [facility] one [facility] REFERENCE LAB REFERENCE LAB See results for address. * ALDOLASE (09/25/2019 5:15 PM CDT) Aldolase 9.2 (H) REFERENCE LAB Comment: Reference range: <7.7 Unit: U/L This result may be falsely elevated. Hemoglobin contamination was observed in this sample, and hemolysis increases Aldolase results. Interpret results with caution. [facility] Specimen Blood Performing Organization Address [facility] one Number REFERENCE LAB REFERENCE LAB See results for address. * CREATINE KINASE-CPK (09/25/2019 5:15 PM CDT) [facility] Creatine Kinase 31 21 - 215 U/L MAIN LAB Specimen Blood Performing Organization Address [facility] one Number MAIN LAB [address] [place] [address] * ANTI SSA ANTI SSB AB (09/25/2019 5:15 PM CDT) [facility] Anti-SSA <0.2Comment: Interpretation: <1.0 AI K U MAIN LAB Negative Anti-SSB <0.2Comment: Interpretation: <1.0 AI K U MAIN LAB Negative Specimen Blood Performing Organization Address [facility] one Number MAIN LAB [address] [place] [address] * CCP IGG ANTIBODY (09/25/2019 5:15 PM CDT) [facility] CCP IgG <0.5 <3.0 [IU]/mL MAIN LAB Antibody Specimen Blood Performing Organization Address [facility] one Number MAIN LAB [address] [place] [address] * ANTI-DNA DOUBLE STRAND (09/25/2019 3:46 PM CDT) [facility] DNA Double <10 <10 TITER MAIN LAB Strand AB Specimen Blood Performing Organization Address [facility] one Number MAIN LAB [address] [place] [address] * ANGIOTENSIN CONV ENZYME (CECE) (09/25/2019 3:46 PM CDT) [facility] Angiotensin 18 REFERENCE LAB Convert Enzyme Comment: Reference range: 16 to 85 Unit: U/L [facility] Specimen Blood Performing Organization Address [facility] one Number REFERENCE LAB REFERENCE LAB See results for address. * HAPTOGLOBIN (09/25/2019 3:46 PM CDT) [facility] Haptoglobin 339 (H) 16 - 200 MG/DL MAIN LAB Specimen Blood Performing Organization Address [facility] one Number MAIN LAB [address] [place] [address] * RHEUMATOID FACTOR (RF) (09/25/2019 3:46 PM CDT) [facility] Rheum Factor 13Comment: NOTE NEW REFERENCE <25 IU/mL MAIN LAB Screen RANGES Specimen Blood Performing Organization Address [facility] one Number MAIN LAB [address] [place] [address] * ANTI-NUCLEAR ANTIBODY(VIV) (09/25/2019 3:46 PM CDT) [facility] VIV Screen <80 <80 TITER MAIN LAB Specimen Blood Performing Organization Address [facility] one Number MAIN LAB [address] [place] [address] * TRANSFUSE RBC'S (09/25/2019 2:26 PM CDT) Specimen Blood * TRANSFUSE RBC'S (09/25/2019 2:26 PM CDT) Specimen Blood * BLOOD TYPE CONFIRMATION - ORDER ONLY IF REQUESTED BY LAB (09/25/2019 9:35 AM CDT) [facility] ABO/RH(D) A POS MAIN LAB Specimen Blood Performing Organization Address [facility] one Number MAIN LAB [address] [place] [address] * TYPE & CROSSMATCH (09/25/2019 9:10 AM CDT) [facility] Units Ordered 1 MAIN LAB Crossmatch 09/28/2019,2359 MAIN LAB Expires Record Check 2ND TYPE REQUIRED MAIN LAB ABO/RH(D) A POS MAIN LAB Antibody Screen NEG MAIN LAB Electronic YES MAIN LAB Crossmatch Unit Number [id number] MAIN LAB Blood Component RBC,ADSOL,LEUKO REDUCED KU MAIN LAB Type Unit Division 0 MAIN LAB Status OF Unit TRANSFUSED MAIN LAB Transfusion OK TO TRANSFUSE MAIN LAB Status Crossmatch COMPATIBLE,ELECTRONIC MAIN LAB Result Specimen Blood Performing Organization Address [facility] one Number MAIN LAB [address] [place] [address] * RETICULOCYTE COUNT (09/25/2019 4:00 AM CDT) [facility] Retic, 1.5 0.5 - 2.0 % KU MAIN LAB Uncorrected Retic, 0.7 % MAIN LAB Corrected Retic, Absolute 32.9 30 - 94 K/UL MAIN LAB Specimen Performing Organization Address [facility]/Zipcode Ph one Number MAIN LAB [address] [place] [address] * PERIPHERAL SMEAR (09/25/2019 4:00 AM CDT) Peripheral NORMOCYTIC ANEMIA. KU MAIN LAB Smear ABSOLUTE LYMPHOCYTOPENIA. MILD MONOCYTOSIS [...] in this report. Specimen Performing Organization Address [facility] Ph one Number MAIN LAB [address] [place] [address] * LDH-LACTATE DEHYDROGENASE (09/25/2019 4:00 AM CDT) Lactate 456 (H) 100 - 210 U/L MAIN LAB Dehydrogenase Specimen Performing Organization Address [facility] Ph one Number MAIN LAB [address] [place] [address] * SED RATE (09/25/2019 4:00 AM CDT) Sed Rate -ESR 21 0 - 30 MM/HR KU MAIN LAB Specimen Performing Organization Address [facility] one Number MAIN LAB [address] [place] [phone] * C REACTIVE PROTEIN (CRP) (09/25/2019 4:00 AM CDT) C-Reactive 20.55 (H) <1.0 MG/DL KU MAIN LAB Protein Specimen Performing Organization Address [facility] Ph one Number MAIN LAB [address] [place] [phone] * COMPREHENSIVE METABOLIC PANEL (09/25/2019 4:00 AM [...] (L) >60 mL/min KU MAIN LAB Comment: [place]ino The eGFR is not validated f or use in drug dosing adjustments. Continue to use estimated creatinine clearance per dosing reference text. Please contact the Clinical Pharmacist for questions. eGFR 8 (L) >60 mL/min KU MAIN LAB [place] Comment: The eGFR is not validated for use in drug dosing adjustments. Continue to use estimated creatinine clearance per dosing reference text. Please contact the Clinical Pharmacist for questions. Specimen Blood Performing Organization Address City/State/Zipcode Ph one Number KU MAIN LAB [address] [place] [address] * CBC AND DIFF (09/25/2019 4:00 AM [...] Ph one Number KU MAIN LAB [address] [place] [address] * CT CHEST WO CONTRAST (09/24/2019 9:47 [...] Brennan at 09/25/2019 8:40 AM. Finalized by Eirc Brennan M.D. on 09/25/2019 8:40 AM. Dictated [...] on 09/24/2019 2:26 PM. Performing Organization Address City/State[facility] Ph one Number KU RAD RESULTS * [...] (L) >60 mL/min KU MAIN LAB Comment: [place] The eGFR is not validated f or use in drug dosing adjustments. Continue to use estimated creatinine clearance per dosing reference text. Please contact the Clinical Pharmacist for questions. eGFR 9 (L) >60 mL/min KU MAIN LAB [place] Comment: The eGFR is not validated for use in drug dosing adjustments. Continue to use estimated creatinine clearance per dosing reference text. Please contact the Clinical Pharmacist for questions. Specimen Blood Performing Organization Address City/State/Zipcode Ph one Number KU MAIN LAB [address] [place] [address] * CBC AND DIFF (09/24/2019 6:30 AM [...] Basophil Count Specimen Blood Performing Organization Address [facility] Ph one Number KU MAIN LAB [address] [place] [address] * COMPREHENSIVE METABOLIC PANEL (09/23/2019 5:37 AM CDT) [facility] Sodium 135 (L) 137 - 147 MMOL/L [...] (L) >60 mL/min KU MAIN LAB Comment: [place] The eGFR is not validated f or use in drug dosing adjustments. Continue to use estimated creatinine clearance per dosing reference text. Please contact the Clinical Pharmacist for questions. eGFR 8 (L) >60 mL/min KU MAIN LAB [place] Comment: The eGFR is not validated for use in drug dosing adjustments. Continue to use estimated creatinine clearance per dosing reference text. Please contact the Clinical Pharmacist for questions. Specimen Blood Performing Organization Address [facility] one Number MAIN LAB [address] [place] [address] * CBC AND DIFF (09/23/2019 5:37 AM [...] Ph one Number KU MAIN LAB [address] [place] [address] * COMPREHENSIVE METABOLIC PANEL (09/22/2019 5:00 AM [...] (L) >60 mL/min KU MAIN LAB Comment: [place] The eGFR is not validated f or use in drug dosing adjustments. Continue to use estimated creatinine clearance per dosing reference text. Please contact the Clinical Pharmacist for questions. eGFR 9 (L) >60 mL/min KU MAIN LAB [place] Comment: The eGFR is not validated for use in drug dosing adjustments. Continue to use estimated creatinine clearance per dosing reference text. Please contact the Clinical Pharmacist for questions. Specimen Blood Performing Organization Address City/State/Zipcode Ph one Number KU MAIN LAB [address] [place] [address] * CBC AND DIFF (09/22/2019 5:00 AM CDT) White Blood 6.4 4.5 - 11.0 K/UL [...] Basophil Count Specimen Blood Performing Organization Address [facility] Ph one Number KU MAIN LAB [address] [place] [address] * HEPATITIS PANEL, ACUTE (09/21/2019 6:29 AM CDT) Pathologist [facility] Hepatitis A IgM Non-Reactive SAOE-Pry-Uqwodann KU MAIN LAB Anti HBc IgM Non-Reactive: IgM antibodies MBP-Ghp-Nddspgte: KU MAIN LAB to HBV core antigen (anti-HBc) IgM antibodies to were not detected. HBV core antigen (anti-H HBsAg Non-Reactive: HBs antigen not [facility]-Mfi-Oqnklow e: KU MAIN LAB detected HBs antigen not detected Anti HCV Non-Reactive: Antibodies to RZYIS-Cab-Zqxhqmqp : KU MAIN LAB HCV were not detected. Antibodies to HCV were not detected. Specimen Blood Performing Organization Address [facility] Ph one Number [facility] [address] [place] [address] * COMPREHENSIVE METABOLIC PANEL (09/21/2019 6:29 AM CDT) Pathologist [facility] Sodium 139 137 - 147 MMOL/L K[facility] [...] (L) >60 mL/min [facility] Comment: [place] The eGFR is not validated f or use in drug dosing adjustments. Continue to use estimated creatinine clearance per dosing reference text. Please contact the Clinical Pharmacist for questions. eGFR 8 (L) >60 mL/min [facility] [place] Comment: The eGFR is not validated for use in drug dosing adjustments. Continue to use estimated creatinine clearance per dosing reference text. Please contact the Clinical Pharmacist for questions. Specimen Blood Performing Organization Address City/[facility] Ph one Number [facility] [address] [place] [address] * CBC AND DIFF (09/21/2019 6:29 AM [...] Basophil Count Specimen Blood Performing Organization Address City/[facility] Ph one Number [facility] [address] [place] [address] * COMPREHENSIVE METABOLIC PANEL (09/20/2019 4:46 AM [...] (L) >60 mL/min [facility] Comment: [place] The eGFR is not validated f or use in drug dosing adjustments. Continue to use estimated creatinine clearance per dosing reference text. Please contact the Clinical Pharmacist for questions. eGFR 8 (L) >60 mL/min [facility] [place] Comment: The eGFR is not validated for use in drug dosing adjustments. Continue to use estimated creatinine clearance per dosing reference text. Please contact the Clinical Pharmacist for questions. Specimen Blood Performing Organization Address City/State/Zipcode Ph one Number [facility] [address] [place] [address] * CBC AND DIFF (09/20/2019 4:46 AM [...] Ph one Number [facility] [address] [place] [address] * BASIC METABOLIC PANEL (09/19/2019 4:23 PM CDT) Sodium 139 137 - 147 [...] (L) >60 mL/min [facility] Comment: [place] The eGFR is not validated f or use in drug dosing adjustments. Continue to use estimated creatinine clearance per dosing reference text. Please contact the Clinical Pharmacist for questions. eGFR 8 (L) >60 mL/min [facility] [place] Comment: The eGFR is not validated for use in drug dosing adjustments. Continue to use estimated creatinine clearance per dosing reference text. Please contact the Clinical Pharmacist for questions. Specimen Blood Performing Organization Address City/State/Zipcode Ph one Number [facility] [address] [place] [address] * 2D + DOPPLER ECHO (09/19/2019 2:11 [...] 34 OTHER OUTSIDE Index LAB Cardiology Siemens [id number] OTHER OUTSIDE Ultrasound LAB Machine Left Ventricle [...] URINE,INDWELLING CATH MAIN LAB Description Special NONE [facility] MAIN [...] City/State/Zipcode Ph one Number MAIN LAB [address] [place] [address] * COMPREHENSIVE METABOLIC PANEL (09/19/2019 7:21 AM CDT) Sodium 141 137 - 147 [...] (L) >60 mL/min [facility] Comment: [place] The eGFR is not validated f or use in drug dosing adjustments. Continue to use estimated creatinine clearance per dosing reference text. Please contact the Clinical Pharmacist for questions. eGFR 8 (L) >60 mL/min [facility] [place] Comment: The eGFR is not validated for use in drug dosing adjustments. Continue to use estimated creatinine clearance per dosing reference text. Please contact the Clinical Pharmacist for questions. Specimen Blood Performing Organization Address City/State/Zipcode Ph one Number [facility] [address] [place] [address] * CBC AND DIFF (09/19/2019 7:21 AM [...] Basophil Count Specimen Blood Performing Organization Address [facility] one Number MAIN LAB [address] [place] [address] * BASIC METABOLIC PANEL (09/18/2019 5:35 PM [...] (L) >60 mL/min [facility] Comment: [place] The eGFR is not validated f or use in drug dosing adjustments. Continue to use estimated creatinine clearance per dosing reference text. Please contact the Clinical Pharmacist for questions. eGFR 7 (L) >60 mL/min [facility] [place] Comment: The eGFR is not validated for use in drug dosing adjustments. Continue to use estimated creatinine clearance per dosing reference text. Please contact the Clinical Pharmacist for questions. Specimen Blood Performing Organization Address [facility] one Number [facility] [address] [place] [address] * BASIC METABOLIC PANEL (09/18/2019 5:30 PM [...] (L) >60 mL/min [facility] Comment: [place] The eGFR is not validated f or use in drug dosing adjustments. Continue to use estimated creatinine clearance per dosing reference text. Please contact the Clinical Pharmacist for questions. eGFR 8 (L) >60 mL/min [facility] [place] Comment: The eGFR is not validated for use in drug dosing adjustments. Continue to use estimated creatinine clearance per dosing reference text. Please contact the Clinical Pharmacist for questions. Specimen Blood Performing Organization Address City/State/Zipcode Ph one Number MAIN LAB [address] [place] [id number] * US DOPPLER ABD PELV RETROPER COMP (09/18/2019 10:51 AM CDT) Specimen Impressions Performed At 1. Symmetric, normal renal size. [facility] RAD RESULTS 2. Patent renal vessels. No evidence of hemodynamically significant renal artery stenosis. 3. Elevated intrarenal resistivity, m ost compatible with a nonspecific, diffuse parenchymal disease. Finalized by Brenda Stahl M.D. on 09/18/19 20 12:17 PM. Dictated by Brenda Stahl M.D. on 09/18/2019 9:16 AM. Narrative Performed At RENAL ULTRASOUND WITH DOPPLER [facility] RAD RESULTS CLINICAL INDICATION: Female, 69 years; assess renal vasculature. Renal failure, hypertension. TECHNIQUE: Multiple grayscale, color Do ppler and spectral Doppler ultrasound images were obtained through the [employer] system. Initial images were performed the morning of 09/18/2019, though the [facility] ient requested early termination of the exam. The patient returned to the [facility] tment and the exam was completed later [...] on 09/18/2019 9:16 AM. Performing Organization Address City/State/Zipcode Ph one [...] Doppler ultrasound images were obtained through the [employer] system. Initial images were performed the morning of 09/18/2019, though the [facility] ient requested early termination of the exam. The patient returned to the [facility] tme and the exam was completed later [...] 135 cm/s. Urinary bladder: Predominantly decompressed by Zm[place]rano catheter. IMPRESSION 1. Symmetric, normal renal size. 2. Patent renal vessels. No evidence of hemodynamically significant renal artery stenosis. 3. Elevated intrarenal resistivity, mos t compatible with a nonspecific, diffuse parenchymal disease. Finalized by Brenda Stahl M.D. on 09/18/2019 12:17 PM. Dictated by Brenda Stahl M.D. on 09/18/2019 9:16 AM. Performing Organization Address [facility] one Number RAD RESULTS * OSMOLALITY (09/18/2019 9:54 AM CDT) Osmolality 324 (H) 280 - 307 MOSMOL/KG [facility] B Specimen Blood Performing Organization Address [facility] one Number MAIN LAB [address] [place] [address] * PTT (APTT) (09/18/2019 9:54 AM CDT) APTT 27.5 24.0 - 36.5 SEC [facility] Specimen Blood Performing Organization Address [facility] one Number MAIN LAB [address] [place] [address] * PROTIME INR (PT) (09/18/2019 9:54 AM CDT) INR 1.4 (H) 0.8 - 1.2 MAIN LAB Specimen Blood Performing Organization Address [facility] Ph one Number MAIN LAB [address] [place] [address] * TSH WITH FREE T4 REFLEX (09/18/2019 9:54 AM CDT) TSH 1.67 0.35 - 5.00 MCU/ML [facility] Specimen Blood Performing Organization Address [facility] one Number MAIN LAB [address] [place] [address] * VITAMIN B12 (09/18/2019 9:54 AM CDT) Vitamin B12 289 180 - 914 PG/ML MAIN LAB Specimen Blood Performing Organization [facility] one Number MAIN LAB [address] [place] [address] * FOLATE, SERUM (09/18/2019 9:54 AM CDT) Serum Folate 4.0 >3.9 NG/ML MAIN LAB Specimen Blood Performing Organization Address [facility] one Number MAIN LAB [address] [place] [address] * OSMOLALITY-URINE RANDOM (09/18/2019 9:15 AM CDT) Osmolality-Urin 377 50 - 1,400 MOS/KG MAIN LAB e Specimen Urine - Urine Performing Organization [facility] one Number MAIN LAB [address] [place] [address] * CHLORIDE-URINE RANDOM (09/18/2019 9:15 AM CDT) Chloride, 53 MMOL/L [facility] Random Specimen Urine - Urine Performing Organization Address [facility] one Number MAIN LAB [address] [place] [address] * PROTEIN/CR RATIO,UR RAN (09/18/2019 9:15 AM CDT) Protein, Random 83 MG/DL [facility] Creatinine, 95 MG/DL [facility] Random Protein/CR 0.9 [facility] ratio Specimen Urine - Urine Performing Organization Address [facility] one Number MAIN LAB [address] [place] [address] * RETICULOCYTE COUNT (09/18/2019 7:02 AM CDT) Retic, 2.0 0.5 - 2.0 % [facility] Uncorrected Retic, 1.2 % [facility] Corrected Retic, Absolute 55.0 30 - 94 K/UL [facility] Specimen Performing Organization Address [facility] Ph one Number [facility] [address] [place] [address] * IRON + BINDING CAPACITY + %SAT+ FERRITIN (09/18/2019 7:02 AM CDT) Iron 22 (L) 50 - 160 MCG/DL [facility] Iron 203 (L) 270 - 380 MCG/DL [facility] Binding-TIBC % Saturation 11 (L) 28 - 42 % [facility] Ferritin 345 (H) 10 - 200 NG/ML [facility] Specimen Performing Organization Address [facility] Ph one Number [facility] [address] [place] [address] * COMPREHENSIVE METABOLIC PANEL (09/18/2019 7:02 AM CDT) Pathologist [facility] Sodium 140 137 - 147 MMOL/L K[facility] [...] (L) >60 mL/min [facility] Comment: [place] The eGFR is not validated f or use in drug dosing adjustments. Continue to use estimated creatinine clearance per dosing reference text. Please contact the Clinical Pharmacist for questions. eGFR 7 (L) >60 mL/min [facility] [place] Comment: The eGFR is not validated for use in drug dosing adjustments. Continue to use estimated creatinine clearance per dosing reference text. Please contact the Clinical Pharmacist for questions. Specimen Blood Performing Organization Address City/[facility] one Number [facility] [address] [place] [address] * CBC AND DIFF (09/18/2019 7:02 AM CDT) [facility] White Blood 7.4 4.5 - 11.0 K/UL [...] Basophil Count Specimen Blood Performing Organization Address City/[facility] one Number [facility] [address] [place] [address] * BLOOD GASES, PERIPHERAL VENOUS (09/18/2019 1:30 AM CDT) pH-Venous 7.21 (L) 7.30 - 7.40 [facility] PCO2-Venous 34 (L) 36 - 50 [facility] MAIN LAB PO2-Venous 47 33 - 48 MMHG [facility] Base 13.6 MMOL/L [facility] Deficit-Venous O2 Sat-Venous 75.4 (H) 55 - 71 % [facility] Bicarbonate-REGGIE 13.6 MMOL/L [facility] -Luis Fernando Specimen Blood, venous - Blood Performing Organization Address [facility] Ph one Number MAIN LAB [address] [place] [address] * SODIUM-URINE RANDOM (09/18/2019 1:30 AM CDT) Sodium, Random 53 MMOL/L [facility] Specimen Urine - Urine Performing Organization [facility] one Number MAIN LAB [address] [place] [address] * UREA NITROGEN-URINE RANDOM (09/18/2019 1:30 AM CDT) Urea Nitrogen 479 MG/DL MAIN LAB Specimen Urine - Urine Performing Organization Address [facility] Ph one Number MAIN LAB [address] [place] [address] * CREATININE-URINE RANDOM (09/18/2019 1:30 AM CDT) Creatinine, 97 MG/DL [facility] Random Specimen Urine - Urine Performing Organization Address [facility] one Number MAIN LAB [address] [place] [address] * COVID-19 (SARS-COV-2) PCR (09/18/2019 1:30 AM CDT) COVID-19 NASOPHARYNGEAL SWAB [facility] (SARS-CoV-2) PCR Source COVID-19 NOT DETECTED DN-NOT DETECTED [facility] (SARS-CoV-2) Comment: PCR This assay [...] performance characteristics have been verified by the [facility]. Fact sheet for providers: https://www.fda.gov/media/1103 85/download Fact sheet for patients: https://www.fda.gov/media/7079 87/download Specimen Nasopharyngeal Swab Performing Organization Address [facility] Ph one Number [facility] [address] [place] [address] * URINALYSIS, MICROSCOPIC (09/18/2019 1:30 AM CDT) WBCs,UA 10-20 0 - 2 /HPF [facility] RBCs,UA 2-10 0 - 3 /HPF [facility] MucousUA TRACE [facility] Squamous 0-2 0 - 5 [facility] Epithelial Cells Specimen Urine - Urine Performing Organization Address [facility] one Number [facility] [address] [place] [address] * URINALYSIS DIPSTICK (09/18/2019 1:30 AM CDT) Color,UA YELLOW [facility] Turbidity,UA CLEAR CLEAR-CLEAR [facility] Specific 1.014 1.003 - 1.035 [facility] [place]-Urine pH,UA 5.0 5.0 - 8.0 [facility] Protein,UA 1+ (A) NEG-NEG [facility] Glucose,UA NEG NEG-NEG [facility] Ketones,UA NEG NEG-NEG [facility] Bilirubin,UA NEG NEG-NEG [facility] Blood,UA 2+ (A) NEG-NEG [facility] Urobilinogen,UA NORMAL NORM-NORMAL [facility] Nitrite,UA NEG NEG-NEG [facility] Leukocytes,UA TRACE (A) NEG-NEG [facility] Urine Ascorbic NEG NEG-NEG [facility] Acid, UA Specimen Urine - Urine Performing Organization Address [facility] one Number [facility] MAIN [facility] [address] [place] [address] * PHOSPHORUS (09/18/2019 1:30 AM CDT) Phosphorus 6.5 (H) 2.0 - 4.5 MG/DL [facility] Specimen Blood Performing Organization Address [facility] one Number MAIN LAB [address] [place] [address] * MAGNESIUM (09/18/2019 1:30 AM CDT) Magnesium 2.3 1.6 - 2.6 mg/dL [facility] Specimen Blood Performing Organization Address [facility] one Number MAIN LAB [address] [place] [address] * BASIC METABOLIC PANEL (09/18/2019 1:30 AM CDT) Sodium 141 137 - 147 MMOL/L [facility] Potassium 5.6 (H) 3.5 - 5.1 MMOL/L [facility] Chloride 109 98 - 110 MMOL/L [facility] CO2 13 (L) 21 - [...] (L) >60 mL/min [facility] Comment: [place] The eGFR is not validated f or use in drug dosing adjustments. Continue to use estimated creatinine clearance per dosing reference text. Please contact the Clinical Pharmacist for questions. eGFR 7 (L) >60 mL/min [facility] [place] Comment: The eGFR is not validated for use in drug dosing adjustments. Continue to use estimated creatinine clearance per dosing reference text. Please contact the Clinical Pharmacist for questions. 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 Administered Medications Action Date Dose Rate Site Medication Order MAR Action 10/11/2019 9:24 AM CDT 200 mg acyclovir (ZOVIRAX) capsule 200 mg Given 200 mg, Oral, TWICE DAILY, First dose o n 10/05/19 at 1145, Until Discontinued 200 mg Given 10/10/2019 8:25 PM CDT 200 mg Given 10/10/2019 8:52 AM CDT 10/11/2019 9:24 AM CDT 100 mg allopurinoL (ZYLOPRIM) tablet 100 mg Given 100 mg, Oral, DAILY, First dose on 10/06/19 at 0900, Until Discontinued 100 mg Given 10/10/2019 8:52 AM CDT 100 mg Given 10/09/2019 8:21 AM CDT 10/11/2019 9:24 AM CDT 10 mg amLODIPine (NORVASC) tablet 10 mg Given 10 mg, Oral, DAILY, First dose (after last modification) on Mon09/30/19 at 0900, Until Discontinued, NURSING: Please educate patient and document: Do not give with grapefruit juice., 10 mg Given 10/10/2019 8:52 AM CDT 10 mg Given 10/09/2019 8:21 AM CDT 09/19/2019 11:27 PM CDT 1,000 mg calcium carbonate (TUMS) chew tablet Given 500-1,000 mg 500-1,000 mg, Oral, EVERY 6 HOURS PRN, Starting Mon09/18/19 at 2042, Until Mon10/11/19 at 1505, Indigestion/Heartburn, Each tab delivers 200mg elemental calcium., 1,000 mg Given 09/19/2019 11:27 AM CDT 1,000 mg Given 09/18/2019 9:59 PM CDT 10/11/2019 9:24 AM CDT 1,000 mcg cyanocobalamin (VITAMIN B-12) tablet Given 1,000 mcg 1,000 mcg, Oral, DAILY, First dose on Mon09/25/19 at 1415, Until Discontinued 1,000 mcg Given 10/10/2019 8:51 AM CDT 1,000 mcg Given 10/09/2019 8:22 AM CDT 10/11/2019 11:37 AM CDT 300 mcg Abdomina l Tissue filgrastim-sndz (ZARXIO) inj syringe 300 Given mcg 300 mcg, Subcutaneous, EVERY 24 HOURS, First dose on Mon10/08/19 at 1200, Unti l Discontinued 300 mcg Abdominal Tissue Given 10/10/2019 11:22 AM CDT 300 mcg Abdominal Tissue Given 10/09/2019 11:40 AM CDT 10/11/2019 9:24 AM CDT 1 mg folic acid (FOLVITE) tablet 1 mg Given 1 mg, Oral, DAILY, First dose on Mon09/18/19 at 1330, Until Discontinued 1 mg Given 10/10/2019 8:51 AM CDT 1 mg Given 10/09/2019 8:21 AM CDT 10/10/2019 8:30 PM CDT 100 mg guaiFENesin (ROBITUSSIN) oral solution Given 100 mg 100 mg, Oral, EVERY 4 HOURS PRN, Starting Mon10/03/19 at 2125, Until Mon10/11/19 at 1505, Congestion [...] Tissue Given 10/10/2019 7:20 PM CDT 10/11/2019 2:31 AM CDT 0.5 mg LORazepam (ATIVAN) tablet 0.5-1 mg Given 0.5-1 mg, Oral, EVERY 6 HOURS PRN, Starting Mon10/11/19 at 0221, Until Mon10/11/19 at 1505, Anxiety PO 10/10/2019 8:30 PM CDT 5 mg melatonin tablet 5 mg Given 5 mg, Oral, AT BEDTIME PRN, Starting e 09/24/19 at 2025, Until Mon10/11/19 at 1505, Insomnia 5 mg Given 10/10/2019 1:30 AM CDT 5 mg Given 10/08/2019 8:24 PM CDT 10/11/2019 10:27 AM CDT mineral oil/hydrophilic petrolatum Given (AQUAPHOR, DERMAPHOR) topical ointment Topical, DAILY, First dose on Mon10/02/19 at 1530, Until Discontinued, Apply to buttocks, Given 10/10/2019 8:52 AM CDT Given 10/09/2019 8:22 AM CDT 10/10/2019 8:54 AM CDT 34 g polyethylene glycol 3350 (MIRALAX) Given packet 34 g 34 g (2 packet), Oral, DAILY, First dos e (after last modification) on Mon 0 at 0900, Until Discontinued, hold for loose stools 8.5 GRAMS = 0.5 PACKET 17 GRAMS = 1 PACKET 34 GRAMS = 2 PACKETS, 10/09/2019 8:29 PM CDT 1 tablet senna [...] 650 mg Given 10/10/2019 8:51 AM CDT 10/06/2019 11:30 AM CDT sodium chloride 0.9% irrigation bottle Given Swish & Spit, NEEDED, Starting Mon10/06/19 at 1206, Until Mon10/11/19 at 1505, Other..., For mucositis 09/27/2019 5:40 PM CDT 6 mL tetracaine 0.25% /EPINEPHrine 0.003%(#) Given INTRA-PROCEDURE MED, Starting Mon09/27/19 at 1705, Until Mon09/27/19 at 1745, Intra-op 6 mL Given 09/27/2019 5:05 PM CDT 10/03/2019 4:49 PM CDT vitamin A & [...]
--- OUTSIDE RECORDS SUMMARY | 2019-10-16 12:55 | XMS REPORT | Continuity of Care Document ---
Author Organization Unknown Address Unknown Phone Unavailable Allergies Active Description Code Type Severity Reaction Onset Reported/Identified Relationship to Patient Clinical Status Yes No Known Drug Allergies [id number] Drug Allergy Unknown N/A 12/11/2013 Medications There [...] V58. 69 OT MED,LT,CURRENT USE 07/10/2014 REBECCA MSALL MD R Ot 041. 3 07/10/2014 REBECCA [...] 07/26/2016 SERGIO STOREY MD Ot V72.8 1 [id number] CARDIOVASCULAR 07/26/2016 SERGIO STOREY MD Ot V74.8 [...] PRIMARY OSTEOARTHRITIS OF HIP 11/09/2017 REBECCA SMALL MD Ot K57. 30 DVRTCLOS OF LG INT W/O PERFORATION OR AB 11/09/2017 REBECCA SMALL MD Ot K82. 8 OTHER SPECIFIED DISEASES OF GALLBLADDER 11/09/2017 REBECCA SMALL MD Ot R63. 4 ABNORMAL WEIGHT LOSS 11/20/2017 REBECCA SMALL MD Ot K57. 30 DVRTCLOS OF LG INT W/O PERFORATION OR AB 11/20/2017 REBECCA SMALL MD Ot K82. 8 OTHER SPECIFIED DISEASES OF GALLBLADDER 11/20/2017 REBECCA SMALL MD Ot R63. 4 ABNORMAL WEIGHT LOSS 09/21/2019 JOHNNIE GRAHAM MD Ot D64. 9 ANEMIA, UNSPECIFIED 09/21/2019 JOHNNIE GRAHAM MD Ot E87. 5 HYPERKALEMIA 09/21/2019 JOHNNIE GRAHAM MD Ot F32. 9 MAJOR DEPRESSIVE DISORDER, SINGLE EPISOD 09/21/2019 JOHNNIE GRAHAM MD Ot G89. 29 OTHER CHRONIC PAIN 09/21/2019 JOHNNIE GRAHAM MD Ot I10 ESSENTIAL (PRIMARY) HYPERTENSION 09/21/2019 JOHNNIE GRAHAM MD Ot M54. 9 DORSALGIA, UNSPECIFIED 09/21/2019 JOHNNIE GRAHAM MD Ot N19 UNSPECIFIED KIDNEY FAILURE 09/21/2019 JOHNNIE GRAHAM MD Ot R53. 83 OTHER FATIGUE 09/21/2019 JOHNNIE GRAHAM MD Ot Z79.891 ASSISTED (CURRENT) USE OF OPIATE ANALGE 09/21/2019 JOHNNIE GRAHAM MD Ot Z80. 0 FAMILY HISTORY OF MALIGNANT NEOPLASM OF 09/21/2019 JOHNNIE GRAHAM MD Ot Z80. 1 FAMILY HISTORY OF MALIG NEOPLASM OF TRAC 09/21/2019 SANTOS IWNCHESTER, JOHNNIE Hill Ot Z82. 49 FAMILY HX OF ISCHEM HEART DIS AND OTH DI 09/21/2019 SANTOS WINCHESTER, JOHNNIE Hill Ot Z87.891 PERSONAL HISTORY OF NICOTINE DEPENDENCE Procedures Code Description Performed By Per formed [...] 7-25 CREATININE 1.24 mg/dL 0.50-0.99 eGFR NON-AFR. AUSTRIAN 45 mL/min/1.73m2 > OR = 60 eGFR [...] 3.5 % NRG BASOPHILS 1.5 % NRG CMP - 09/16/19 13:30 GLUCOSE 95 mg/dL 65-99 UREA NITROGEN (BUN) 104 mg/dL 7-25 CREATININE 6.81 mg/dL 0.50-0.99 eGFR NON-AFR. AUSTRIAN 6 mL/min/1.73m2 > OR = 60 eGFR 7 mL/min/1.73m2 > OR = 60 BUN/CREATININE RATIO 15 (calc) 6-22 SODIUM 138 mmol/L 135-146 POTASSIUM 6.8 mmol/L 3.5-5.3 CHLORIDE 108 mmol/L 98-110 CARBON DIOXIDE 14 mmol/L 20-32 CALCIUM 10.3 mg/dL 8.6-10.4 PROTEIN, TOTAL 7.0 g/dL 6.1-8.1 ALBUMIN 3.9 g/dL 3.6-5.1 GLOBULIN 3.1 g/dL (calc) 1.9-3.7 ALBUMIN/GLOBULIN RATIO 1.3 (calc) 1.0-2. 5 BILIRUBIN, TOTAL 0.3 mg/dL 0.2-1.2 ALKALINE PHOSPHATASE 166 U/L 37-153 AST 15 U/L 10-35 ALT 21 U/L 6-29 CBC - 09/16/19 13:30 WHITE BLOOD CELL COUNT 9.0 Thousand/uL 3 .8-10.8 RED BLOOD CELL COUNT 3.40 Million/uL 3.8 0-5.10 HEMOGLOBIN 10.1 g/dL 11.7-15.5 HEMATOCRIT 32.4 % 35.0-45.0 MCV 95.3 fL 80.0-100.0 MCH 29.7 pg 27.0-33.0 MCHC 31.2 g/dL 32.0-36.0 RDW 11.9 % 11.0-15.0 PLATELET COUNT 393 Thousand/uL 140-400 MPV 8.5 fL 7.5-12.5 ABSOLUTE NEUTROPHILS 7389 cells/uL 1500- 7800 ABSOLUTE LYMPHOCYTES 639 cells/uL 850-39 00 ABSOLUTE MONOCYTES 882 cells/uL 200-950 ABSOLUTE EOSINOPHILS 36 cells/uL 15-500 ABSOLUTE BASOPHILS 54 cells/uL 0-200 NEUTROPHILS 82.1 % NRG LYMPHOCYTES 7.1 % NRG MONOCYTES 9.8 % NRG EOSINOPHILS 0.4 % NRG BASOPHILS 0.6 % NRG LIPASE - 09/16/19 13:30 LIPASE 189 U/L 7-60 AMYLASE - 09/16/19 13:30 AMYLASE 89 U/L 21-101 Complete blood count (CBC) with automate d [...] Status Pt. Type Provider Facility Loc./Unit Complaint [id number] 09/16/2019 12:20:00 09/16/2019 23:59: 59 CLS Outpatient BECKY EDUARDO [facility] [id number] 09/16/2019 12:20:00 Document Registration [id number] 05/13/2019 08:40:00 Document Registration [id number] 09/17/2019 15:31:00 020 21:34:00 DIS Outpatient SANTOS WINCHESTER, JOHNNIE [facility] ER KIDNEY FAILURE [id number] 11/08/2017 13:02:00 018 23:59:59 CLS Outpatient REBECCA SMALL MD [facility] RAD ABN WEIGHT LOSS [id number] 07/26/2016 09:15:00 017 23:59:59 CLS Outpatient REBECCA SMALL MD [facility] RAD R10.2 [id number] 07/04/2014 10:57:00 015 10:05:00 DIS Inpatient REBECCA SMALL MD [facility] SURGICAL PAIN CONTROL, SLURRED S PEECH, ORAL MED [id number] 06/09/2014 09:51:00 015 13:30:00 DIS Inpatient SERGIO STOREY MD [facility] SURGICAL STENOSIS [id number] 02/17/2014 08:00:00 014 23:59:59 CLS Preadmit SERGIO STOREY MD LUMBAR STENOSIS [id number] 02/03/2014 08:15:00 014 23:59:59 CLS Outpatient SERGIO STOREY MD [facility] PREOP LUMBAR STENOSIS [id number] 12/23/2013 06:21:00 014 14:30:00 DIS Inpatient SERGIO STOREY MD [facility] SURGICAL CERVICAL STENOSIS [id number] 12/10/2013 08:21:00 014 23:59:59 CLS Outpatient SERGIO STOREY MD [facility] PREOP CERVICAL STENOSIS [id number] 11/12/2013 07:52:00 014 23:59:59 CLS Outpatient REBECCA SMALL MD [facility] RAD BILATERAL RADICULOPATHY [id number] 10/17/2019 15:22:00 P EN Preadmit SHERRI WINCHESTER, GONZÁLEZ Pinto [facility] ONC [id number] 10/16/2019 12:02:[address] Emergency SANTOS WINCHESTER, JOHNNIE Hill [facility] ER CATH/SYNCOPE [id number] 05/28/2014 10:24:00 Document Registration
--- OUTSIDE RECORDS SUMMARY | 2019-10-16 12:55 | XMS REPORT | Encounter Summary ---
Author Author [facility] Organization [facility] Address Unknown Phone Unavailable Care Team Providers Care Validation Specialist Name Role Phone No Pcp, Na PCP Unavailable Encounter Details Care Team Description Date Type Department 09/17/2019 [facility] [address] [address] Social History Date Tobacco Use Types Packs/Day Years Used Never Assessed Sex Assigned at Date Recorded Not on file Industry Job Start Date Occupation Not on file Not on file Not on file Travel End Travel History Travel Start No recent travel history available. Date Recorded COVID-19 Exposure Response 09/17/2019 5:30 PM CDT In the last month, have you been in contact with No / Unsure someone who was confirmed or suspected to have Coronavirus / COVID-19? documented as of this encounter Medications at [...] tablet by (NEPHPLEX RX) mouth daily. 1-60-300-12.5 ye-mg-twj-mg tab 10/11/2019 calcium carbonate (TUMS) Chew 0 [...] Procedure Name Priority Date/Time Associated Diag nosis GENERAL RAD CHEST Routine 09/17/2019 EXTERNAL IMAGING 12:00 AM CDT documented in this encounter Results * GENERAL RAD CHEST EXTERNAL IMAGING (09/17/2019 12:00 AM CDT) Specimen Narrative Performed At This order has been auto finalized and does not contain a result. documented in this encounter Visit Diagnoses Not on filedocumented in this encounter
--- OUTSIDE RECORDS SUMMARY | 2019-10-16 12:55 | XMS REPORT | Encounter Summary ---
Author Author [facility] Organization [facility] Address Unknown Phone Unavailable Care Team Providers Care Supervisor Wound Name Role Phone No Pcp, Na PCP Unavailable Encounter Details Care Team Description Date Type Department 09/17/2019 Travel Social History Date Tobacco Use Types [...] / COVID-19? documented as of this encounter Plan of Treatment Not on filedocumented as of this encounter Goals Goal Patient Associated Recent Progress Patient-Stat Aut hor Goal Type Problems ed? GOAL General No Ale Choudhary, RN Note: Get back on my feet documented as of this encounter Visit Diagnoses Not on filedocumented in this encounter
[2019-10-16 12:56] LABS: WHITE BLOOD COUNT 0.1 10^3/uL (4.3-11.0)
[2019-10-16 12:57] LABS: HEMATOCRIT 19 % (35-52); HEMOGLOBIN 6.4 G/DL (11.5-16.0); INR 1.3 (0.8-1.4); PROTHROMBIN TIME PATIENT 16.7 SEC (12.2-14.7)
[2019-10-16 12:58] LABS: PLATELET COUNT 2 10^3/uL (130-400)
[2019-10-16 12:59] LABS: SMEAR SCAN COMMENT YES
[2019-10-16] MEDS ORDERED: VANCOMYCIN INJECTION 1,500 MG in NS IV 500 ML 500 ML IV ONE (13:00)
[2019-10-16] MEDS ORDERED: CEFEPIME INJECTION 1,000 MG in WATER (STERILE) FOR INJECTION 10 ML IV ONE (13:00)
[2019-10-16 13:02] LABS: ABG BASE EXCESS 5.3 MMOL/L (-2.5-2.5); ABG OXYGEN SATURATION 89 % (94-100); ABG PCO2 36 MMHG (35-45); ABG PH 7.51 (7.37-7.43); ABG PO2 53 MMHG (79-93); ABG TCO2 29.7 MMOL/L (21.0-31.0)
[2019-10-16 13:03] LABS: ALLENS TEST YES-POS; INSPIRED O2 ROOM AIR
[2019-10-16 13:04] LABS: PATIENT TEMP 36.6; VENTILATOR NO
[2019-10-16 13:08] LABS: ALANINE AMINOTRANSFERASE 87 U/L (0-55); ALBUMIN 2.6 GM/DL (3.2-4.5); ALKALINE PHOSPHATASE 114 U/L (40-136); BILIRUBIN,TOTAL 1.7 MG/DL (0.1-1.0); BUN/CREATININE RATIO 15; CALCIUM 8.1 MG/DL (8.5-10.1); CARBON DIOXIDE 25 MMOL/L (21-32); CHLORIDE 102 MMOL/L (98-107); CREATININE SERUM 3.26 MG/DL (0.60-1.30); GFR ESTIMATED 14; GLUCOSE 109 MG/DL (70-105); SODIUM 145 MMOL/L (135-145); TOTAL PROTEIN 5.6 GM/DL (6.4-8.2)
[2019-10-16 13:27] LABS: BILIRUBIN,URINE NEGATIVE (NEGATIVE); CLARITY,URINE CLEAR; COLOR,URINE YELLOW; GLUCOSE, URINE (UA) TRACE (NEGATIVE); KETONES,URINE TRACE (NEGATIVE); LEUKOCYTE ESTERASE ,URINE NEGATIVE (NEGATIVE); NITRITE,URINE NEGATIVE (NEGATIVE); PROTEIN,URINE 2+ (NEGATIVE)
[2019-10-16 13:36] LABS: BACTERIA,URINE FEW /HPF
--- NOTE | 2019-10-16 13:45 | NUR ---
Patient spoke with her sister Ana over the phone. RN spoke with her and gave update on patient's condition.
--- NOTE | 2019-10-16 14:00 | NUR ---
Consent signs by patient for blood products.
--- NOTE | 2019-10-16 14:51 | Diagnostic Imaging Report ---
INDICATION: Syncope. TIME OF EXAM: 02:40 p.m. COMPARISON: Comparison is made with prior chest from 09/17/2019. FINDINGS: Dialysis line has tip overlying the right atrium. Left-sided chest wall port has tip overlying the right atrium. Patient has developed bilateral predominantly perihilar as well as right upper lobe airspace pulmonary infiltrates. No effusion is identified. No pneumothorax is detected. IMPRESSION: Development of bilateral pulmonary infiltrates. While this could be on the basis of congestive failure, possibility of pneumonia or other etiologies cannot be entirely excluded. Dictated by: Dictated on workstation # [id number]
[2019-10-16] MEDS ORDERED: NS IV 1000 ML 0 ML ONE (15:36)
--- NOTE | 2019-10-16 17:00 | NUR ---
Report called to LESLIE Swanson RN. Patient will be going to room 4116.
--- NOTE | 2019-10-16 17:05 | NUR ---
[facility] notified of pending transfer and they have no units available. They advised it would be several hours before they could transport the patient. [facility] refused to take transfer. [facility] did not answer.
--- NOTE | 2019-10-16 17:18 | NUR ---
Patient's sister Ana notified that patient is going to room 4116.
--- NOTE | 2019-10-16 17:56 | NUR ---
[facility] in [facility] are unable to take the transfer.
--- NOTE | 2019-10-16 19:14 | NUR ---
[facility] states they will send a EMS unit out to transfer patient after the other truck gets back from a transfer.
--- NOTE | 2019-10-16 19:15 | NUR ---
Patient sleeping in bed. No signs of distress present.
--- NOTE | 2019-10-16 19:40 | NUR ---
Patietn resting quietly. She answers questions appropriately. Patient informed that we are still waiting on an ambulance to transfer her to [facility]. She verbalizes understanding. 2nd unit of PRBC's infusing. No signs of distress present.
--- NOTE | 2019-10-16 20:15 | NUR ---
[facility] arrived to transfer patient to [facility]. Patient has 2nd unit of PRBC's still infusing upon transfer. Patient has mckeon catheter still in place upon transfer.
== END 2019-10-16 20:19 | disposition short-term general hospital (02) ==
LOC: EDUNIT# 12:00 → ER 12:02
DX: T81.44XA Sepsis following a procedure, initial encounter (principal); A41.9 Sepsis, unspecified organism; N18.6 End stage renal disease; N39.0 Urinary tract infection, site not specified; R65.20 Severe sepsis without septic shock; C85.90 Non-Hodgkin lymphoma, unspecified, unspecified site; I12.0 Hypertensive chronic kidney disease with stage 5 chronic kidney disease or end stage renal disease; D61.818 Other pancytopenia; F32.9 Major depressive disorder, single episode, unspecified; G89.29 Other chronic pain; M54.9 Dorsalgia, unspecified; Z79.891 Long term (current) use of opiate analgesic; Z99.2 Dependence on renal dialysis; Z87.891 Personal history of nicotine dependence; Z80.0 Family history of malignant neoplasm of digestive organs; Z80.1 Family history of malignant neoplasm of trachea, bronchus and lung; Z82.49 Family history of ischemic heart disease and other diseases of the circulatory system
CPT/HCPCS: 36600; 71045; 80053; 81000; 82805; 83605; 83880; 84484; 85025; 85610; 85730; 86141; 86850; 86900; 86901; 86920; 87040; 87077; 87088; 87186; 93005; 96361; 96365; 96366; 96375; 99285; P9016; P9035; 36415

== ENCOUNTER 2019-12-21 14:16 | Emergency (ER) | payer MEDICARE ==
[~2019-12-21] VITALS: Ht 162.6 cm; Wt 60.8 kg
--- NOTE | 2019-12-21 14:33 | ED Syncope ---
General Chief Complaint: Dizziness/Syncope Stated Complaint: SYNCOPE Nursing Triage Note: PT TO ROOM 04 VIA EMS WITH C/O SNYCOPE. Source of Information: Patient History of Present Illness Date Seen by Provider: Dec 21, 2019 Time Seen by Provider: 14:30 Initial Comments 69-year-old female brought in on a syncope episode. Patient is a dialysis patient and also has lymphoma. Patient reports that occasionally after dialysis she has syncopal episodes. Reports she's had a similar episode in the past. She got 1 L normal saline dialysis. She reports she feels a lot better now. He also states that syncope episode lasted a couple minutes. Patient's only complaint was that she just didn't feel good. She states that that happens a lot also with her dialysis. She denies any chest pain, fever, cough, shortness of breath or other systemic complaints. Allergies and Home Medications Allergies Coded Allergies: No Known Drug Allergies (Unverified , 12/11/13) Home Medications Acetaminophen 650 Mg Tablet, 1,300 MG PO AC, (Reported) TAKE 2 (650MG) TABS Acetaminophen 650 Mg Tablet, 2,600 MG PO HS, (Reported) TAKES 4 (650MG) TABLET Baclofen 10 Mg Tablet, 10 MG PO Q8H PRN for MUSCLE SPASMS, (Reported) Diazepam 5 Mg Tablet, 5 MG PO Q8H PRN for SPASMS, (Reported) Enalapril Maleate 20 Mg Tablet, 20 MG PO DAILY, (Reported) Hydrocodone Bit/Acetaminophen 1 Each Tablet, 1-2 TAB PO Q4H PRN for PAIN, (Reported) Senna 1 Ea Tablet, 1 EA PO DAILY Prescribed by: MOI SMALL on 07/08/14731 Trimethoprim/Sulfamethoxazole 1 Ea Tablet, 1 EA PO BID WITH MEALS Prescribed by: MOI SMALL on 07/08/14731 Patient Home Medication List Home Medication List Reviewed: Yes Review of Systems Constitutional: No chills, No fever; weakness EENTM: no symptoms reported Respiratory: No cough, No short of breath Cardiovascular: No chest pain, No palpitations Gastrointestinal: No abdominal pain, No diarrhea, No nausea, No vomiting Genitourinary: no symptoms reported Musculoskeletal: no symptoms reported Skin: no symptoms reported Psychiatric/Neurological: See HPI Past Ikzwevd-Ddvdmp-Otvppr Hx Past Med/Social Hx: Reviewed Nursing Past Med/Soc Hx Patient Social History Type Used: Cigarettes 2nd Hand Smoke Exposure: No Recent Foreign Travel: No Contact w/Someone Who Travel: No Recent Infectious Disease Expo: No Recent Hopitalizations: No Immunizations Up To Date Tetanus Booster (TDap): Unknown PED Vaccines UTD: No Seasonal Allergies Seasonal Allergies: Yes Past Medical History Surgeries: Yes (SEE BELOW) Appendectomy, Breast, Orthopedic, Tonsillectomy Respiratory: Yes (CHRONIC DYSPNEA; FORMER SMOKER) Cardiac: No Hypertension Neurological: No Reproductive Disorders: No ULTRASOUND TECHNOL History: Menopausal Genitourinary: Yes Bladder Infection, Renal Failure, Dialysis Gastrointestinal: Yes (APPY; ) Musculoskeletal: Yes (C-SPINE AND L-SPINE SURGERIES;L KNEE SCOPE) Degenerate Disk Disease, Chronic Back Pain Endocrine: No HEENT: Yes (TONSILLECTOMY) Cataract, Tonsilitis Cancer: Yes Lymphoma Did You Recieve Any Treatments: Yes What Type of Treatment Did You: Chemotherapy Psychosocial: Yes Depression Integumentary: No Blood Disorders: No Adverse Reaction/Blood Tranf: No Family Medical History BACK INJURY 19 MOTHER Cardiovascular disease 19 FATHER 19 MOTHER Chronic hepatitis Colon cancer G8 BROTHER Coronary thrombosis 19 FATHER 19 MOTHER Diabetes mellitus 19 MOTHER FH: lung cancer G8 BROTHER FH: lupus 19 FATHER Kidney disease 19 MOTHER (RENAL FAILURE ) Meningitis Myocardial infarction 19 FATHER 19 MOTHER PSH: -TONSILLECOMTY -APPENDECTOMY -1996--LEFT KNEE SCOPE -1997 BREAST AUGMENTATION + TUMMY TUCK/ABDOMINOPLASTY -2013--CERVICAL SPINE FUSION C3-C7 -2014--LUMBAR SPINE SURGERY/FUSION L3-L5 Physical Exam Vital Signs Vital Signs - First Documented 12/21/19 14:23 Temp 36.5 Pulse 88 Resp 17 B/P (MAP) 144/87 (106) O2 Delivery Room Air Capillary Refill : Less Than 3 Seconds Height, Weight, BMI Height: 5'7.00" Weight: 188lbs. 8.0oz. 85.108196lh; 22.00 BMI Method: General Appearance: No Apparent Distress, WD/WN, Thin Neck: Non Tender, Supple Cardiovascular: Regular Rate, Rhythm, No Edema Respiratory: Lungs Clear, Normal Breath Sounds Gastrointestinal: Non Tender, Soft Extremities: Normal Capillary Refill, Normal Range of Motion Neurologic/Psychiatric: Alert, No Motor/Sensory Deficits, Normal Mood/Affect, varnish finisher II-XII Norm as Tested Cranial Nerves: Normal Hearing, Normal Speech, PERRL Motor/Sensory: No Motor Deficit Skin: Warm/Dry Progress/Results/Core Measures Results/Orders Lab Results Laboratory Tests Test 12/21/19 14:48 12/21/19 16:13 Range/Units White Blood Count 17.6 H 4.3-11.0 10^3/uL Red Blood Count 3.35 L 3.80-5.11 10^6/uL Hemoglobin 10.3 L 11.5-16.0 g/dL Hematocrit 32 L 35-52 % Mean Corpuscular Volume 96 80-99 fL Mean Corpuscular Hemoglobin 31 25-34 pg Mean Corpuscular Hemoglobin Concent 32 32-36 g/dL Red Cell Distribution Width 18.2 H 10.0-14.5 % Platelet Count 153 130-400 10^3/uL Mean Platelet Volume 11.0 9.0-12.2 fL Immature Granulocyte % (Auto) 2 % Neutrophils (%) (Auto) 92 H 42-75 % Lymphocytes (%) (Auto) 1 L 12-44 % Monocytes (%) (Auto) 4 0-12 % Eosinophils (%) (Auto) 0 0-10 % Basophils (%) (Auto) 0 0-10 % Neutrophils # (Auto) 16.3 H 1.8-7.8 10^3/uL Lymphocytes # (Auto) 0.2 L 1.0-4.0 10^3/uL Monocytes # (Auto) 0.7 0.0-1.0 10^3/uL Eosinophils # (Auto) 0.0 0.0-0.3 10^3/uL Basophils # (Auto) 0.1 0.0-0.1 10^3/uL Immature Granulocyte # (Auto) 0.3 H 0.0-0.1 10^3/uL Neutrophils % (Manual) 95 % Lymphocytes % (Manual) 1 % Monocytes % (Manual) 4 % Blood Morphology Comment NORMAL Sodium Level 140 135-145 MMOL/L Potassium Level 3.2 L 3.6-5.0 MMOL/L Chloride Level 98 98-107 MMOL/L Carbon Dioxide Level 25 21-32 MMOL/L Anion Gap 17 H 5-14 MMOL/L Blood Urea Nitrogen 6 L 7-18 MG/DL Creatinine 0.63 0.60-1.30 MG/DL Estimat Glomerular Filtration Rate > 60 BUN/Creatinine Ratio 10 Glucose Level 97 70-105 MG/DL Calcium Level 8.0 L 8.5-10.1 MG/DL Troponin I 0.040 H <0.028 NG/ML Urine Color YELLOW Urine Clarity CLEAR Urine pH 7.0 5-9 Urine Specific [place] 1.010 L 1.016-1.022 Urine Protein 2+ H NEGATIVE Urine Glucose (UA) NEGATIVE NEGATIVE Urine Ketones NEGATIVE NEGATIVE Urine Nitrite POSITIVE H NEGATIVE Urine Bilirubin 1+ H NEGATIVE Urine Urobilinogen 0.2 < = 1.0 MG/DL Urine Leukocyte Esterase 3+ H NEGATIVE Urine RBC (Auto) 2+ H NEGATIVE Urine RBC NONE /HPF Urine WBC TNTC H /HPF Urine Squamous Epithelial Cells 10-25 H /HPF Urine Crystals NONE /LPF Urine Bacteria LARGE H /HPF Urine Casts NONE /LPF Urine Mucus NEGATIVE /LPF Urine Culture Indicated YES My Orders Orders - LEESA DOMINGUEZ L DO Basic Metabolic Panel (12/21/19 14:26) Cbc With Automated Diff (12/21/19 14:26) Troponin I (12/21/19 14:26) Ua Culture If Indicated (12/21/19 14:26) Accucheck Stat ONCE (12/21/19 14:26) Ekg Tracing (12/21/19 14:26) Manual Differential (12/21/19 14:48) Ed Iv/Invasive Line Start (12/21/19 16:03) Ns Iv 500 Ml (Sodium Chloride 0.9%) (12/21/19 16:03) Troponin I (12/21/19 16:29) Urine Culture (12/21/19 16:13) Ceftriaxone For Iv Use (Rocephin For I (12/21/19 16:57) Medications Given in ED Current Medications Medications Dose Ordered Sig/Haritha Route Start Time Stop Time Status Last Admin Dose Admin Sodium Chloride 500 ml @ 0 mls/hr Q0M ONCE IV 12/21/19 16:03 12/21/19 16:05 DC 12/21/19 16:14 999 MLS/HR Vital Signs/I&O 12/21/19 14:23 Temp 36.5 Pulse 88 Resp 17 B/P (MAP) 144/87 (106) O2 Delivery Room Air Blood Pressure Mean: 106 Progress Progress Note : Time: 17:29 Progress Note Patient is feeling better following IV fluids. She does have what appears to be a urinary tract infection. She is given IV Rocephin here. Patient does have a minimal elevation of her troponin. She does not have any chest pain. She does have chronic kidney failure and is on dialysis. I did offer recheck it but patient does not want a recheck she just wants to go home. Patient understands risk and doesn't want any procedures even if it is elevated. Patient will be discharged home. She is stable will be given a prescription for Keflex upon discharge. Departure Impression Primary Impression: Syncope Qualified Codes: R55 - Syncope and collapse Additional Impressions: Cystitis Dependence on renal dialysis Disposition: HOME, SELF-CARE Condition: Stable Departure-Patient Inst. Referrals: [facility] (PCP) Primary Care Physician BECKY EDUARDO (Family) Primary Care Physician Patient Instructions: Syncope (Fainting) (DC), Urinary Tract Infection, Adult (DC) Add. Discharge Instructions: Follow-up with your primary care provider as needed All discharge instructions reviewed with patient and/or family. Voiced understanding. Scripts Cephalexin (Cephalexin) 500 Mg Tablet 500 MG PO QID, #20 TAB 0 Refills Prov: LEESA DOMINGUEZ DO 12/21/19 LEESA DOMINGUEZ DO Dec 21, 2019 14:33
[2019-12-21 14:58] LABS: BASOPHILS # (AUTO) 0.1 10^3/uL (0.0-0.1); BASOPHILS % (AUTO) 0 % (0-10); EOSINOPHILS % (AUTO) 0 % (0-10); HEMATOCRIT 32 % (35-52); HEMOGLOBIN 10.3 g/dL (11.5-16.0); LYMPHOCYTES # (AUTO) 0.2 10^3/uL (1.0-4.0); LYMPHOCYTES % (AUTO) 1 % (12-44); MEAN CORPUSCULAR HEMOGLOBIN 31 pg (25-34); MEAN CORPUSCULAR HGB CONC 32 g/dL (32-36); MEAN CORPUSCULAR VOLUME 96 fL (80-99); MONOCYTES # (AUTO) 0.7 10^3/uL (0.0-1.0); MONOCYTES % (AUTO) 4 % (0-12); NEUTROPHILS # (AUTO) 16.3 10^3/uL (1.8-7.8); NEUTROPHILS % (AUTO) 92 % (42-75); PLATELET COUNT 153 10^3/uL (130-400); WHITE BLOOD COUNT 17.6 10^3/uL (4.3-11.0)
[2019-12-21 15:04] LABS: CHLORIDE 98 MMOL/L (98-107)
[2019-12-21 15:05] LABS: POTASSIUM 3.2 MMOL/L (3.6-5.0); SODIUM 140 MMOL/L (135-145)
[2019-12-21 15:06] LABS: GLUCOSE 97 MG/DL (70-105)
[2019-12-21 15:08] LABS: CARBON DIOXIDE 25 MMOL/L (21-32)
[2019-12-21 15:10] LABS: CREATININE SERUM 0.63 MG/DL (0.60-1.30); GFR ESTIMATED > 60
[2019-12-21 15:11] LABS: BUN/CREATININE RATIO 10
[2019-12-21] MEDS ORDERED: NS IV 500 ML 500 ML IV ONE (16:03)
[2019-12-21 16:06] LABS: LYMPHOCYTES % (MANUAL) 1 %; MONOCYTES % (MANUAL) 4 %; NEUTROPHILS % (MANUAL) 95 %; RBC MORPH NORMAL
[2019-12-21 16:23] LABS: BILIRUBIN,URINE 1+ (NEGATIVE); CLARITY,URINE CLEAR; COLOR,URINE YELLOW; GLUCOSE, URINE (UA) NEGATIVE (NEGATIVE); KETONES,URINE NEGATIVE (NEGATIVE); LEUKOCYTE ESTERASE ,URINE 3+ (NEGATIVE); NITRITE,URINE POSITIVE (NEGATIVE); PROTEIN,URINE 2+ (NEGATIVE)
[2019-12-21 16:52] LABS: BACTERIA,URINE LARGE /HPF; WBC,URINE TNTC /HPF
[2019-12-21] MEDS ORDERED: cefTRIAXone FOR IV USE 1,000 MG in WATER (STERILE) FOR INJECTION 10 ML IV STA (16:57)
[2019-12-21] MEDS ORDERED: CEPH500T PO (17:31)
[2019-12-21 18:22] VITALS: BP 129/64
== END 2019-12-21 18:22 | disposition home or self-care (01) ==
LOC: ER 14:16 → EDUNIT# 14:16 → ER 18:22
DX: R55 Syncope and collapse (principal); N30.90 Cystitis, unspecified without hematuria; N19 Unspecified kidney failure; I10 Essential (primary) hypertension; G89.29 Other chronic pain; M54.9 Dorsalgia, unspecified; Z99.2 Dependence on renal dialysis; Z85.79 Personal history of other malignant neoplasms of lymphoid, hematopoietic and related tissues; Z82.49 Family history of ischemic heart disease and other diseases of the circulatory system; Z83.3 Family history of diabetes mellitus; Z80.1 Family history of malignant neoplasm of trachea, bronchus and lung; Z80.0 Family history of malignant neoplasm of digestive organs; Z79.891 Long term (current) use of opiate analgesic
CPT/HCPCS: 36415; 80048; 81000; 84484; 85007; 85027; 87088

== ENCOUNTER → 2019-12-24 | Outpatient (CLI) | payer MEDICARE ==
[~2019-12-24] MED LIST changes: +CEPH500T PO
--- NOTE | 2019-12-24 14:03 | Diagnostic Imaging Report ---
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 Serum blood glucose level time injection 150 mg/dL. Patient was administered 14.7 mCi F-18 FDG intravenously in the left forearm and pet imaging was performed from the top of skull to mid thighs. Noncontrast CT was also performed for attenuation correction and anatomic correlation. No prior PET/CT studies are available for comparison. The conventional CT portion of the study does demonstrate some interstitial and fibrotic changes involving bilateral upper lobes and bilateral lower lobes. The possibility of superimposed acute pulmonary infiltrates cannot be entirely excluded. There is a moderate left and small right pleural effusion. Postsurgical changes in the lumbar spine are seen. There appears to be some wall thickening of the rectum with perirectal inflammatory stranding present. Proctitis cannot be excluded. There is symmetric activity throughout the brain. Soft tissues of the neck are unremarkable. No definite mediastinal or hilar hypermetabolism is identified. No pulmonary parenchymal hypermetabolism is detected. Physiologic activity within the gastrointestinal and genitourinary tracts of abdomen and pelvis is noted. There does appear to be some uptake in the rectum at the area of wall thickening and perirectal inflammatory stranding. SUV max reaches 7.3. No other suspicious regions are identified. IMPRESSION: 1. Bilateral pleural effusions, left greater with bilateral airspace parenchymal densities involving the upper and lower lobes, chronicity indeterminate. No suspicious hypermetabolism in the chest is identified. 2. Rectal wall thickening with perirectal inflammatory stranding. There is also increased uptake in the rectal wall, as described. Uncertain if this is infectious/inflammatory versus neoplastic and an endoscopy would be useful for further evaluation. No other suspicious regions of hypermetabolism are identified. Dictated by: Dictated on workstation # [id number]
== END ==
LOC: RAD 08:52
PROVIDERS: ATTEND Internal Medicine Hematology & Oncology
DX: C83.38 Diffuse large B-cell lymphoma, lymph nodes of multiple sites (principal); J90 Pleural effusion, not elsewhere classified; K62.9 Disease of anus and rectum, unspecified
CPT/HCPCS: 78815; A9552

== ENCOUNTER 2019-12-25 12:53 | Outpatient (RCR) | payer MEDICARE ==
[2019-11-22 10:03] LABS: BASOPHILS % (AUTO) 1 % (0-10); EOSINOPHILS # (AUTO) 0.1 10^3/uL (0.0-0.3); EOSINOPHILS % (AUTO) 7 % (0-10); HEMATOCRIT 21 % (35-52); LYMPHOCYTES # (AUTO) 0.7 X 10^3 (1.0-4.0); LYMPHOCYTES % (AUTO) 32 % (12-44); MEAN CORPUSCULAR HEMOGLOBIN 31 PG (25-34); MEAN CORPUSCULAR HGB CONC 33 G/DL (32-36); MEAN CORPUSCULAR VOLUME 94 FL (80-99); MEAN PLATELET VOLUME 8.2 FL (7.4-10.4); MONOCYTES # (AUTO) 0.7 X 10^3 (0.0-1.0); MONOCYTES % (AUTO) 32 % (0-12); NEUTROPHILS # (AUTO) 0.6 X 10^3 (1.8-7.8); NEUTROPHILS % (AUTO) 28 % (42-75); PLATELET COUNT 121 10^3/uL (130-400); WHITE BLOOD COUNT 2.1 10^3/uL (4.3-11.0)
[2019-11-22 10:05] LABS: HEMOGLOBIN 6.9 G/DL (11.5-16.0)
[2019-11-22 10:31] LABS: ALBUMIN 2.9 GM/DL (3.2-4.5); BILIRUBIN,TOTAL 0.4 MG/DL (0.1-1.0); CALCIUM 8.5 MG/DL (8.5-10.1); CREATININE SERUM 1.99 MG/DL (0.60-1.30); POTASSIUM 3.2 MMOL/L (3.6-5.0); TOTAL PROTEIN 5.3 GM/DL (6.4-8.2)
[2019-12-02 11:01] LABS: BASOPHILS # (AUTO) 0.1 10^3/uL (0.0-0.1); BASOPHILS % (AUTO) 1 % (0-10); EOSINOPHILS # (AUTO) 0.2 10^3/uL (0.0-0.3); EOSINOPHILS % (AUTO) 3 % (0-10); HEMATOCRIT 30 % (35-52); HEMOGLOBIN 9.7 G/DL (11.5-16.0); LYMPHOCYTES # (AUTO) 1.1 X 10^3 (1.0-4.0); LYMPHOCYTES % (AUTO) 11 % (12-44); MEAN CORPUSCULAR HGB CONC 33 G/DL (32-36); MEAN CORPUSCULAR VOLUME 96 FL (80-99); MEAN PLATELET VOLUME 8.5 FL (7.4-10.4); MONOCYTES % (AUTO) 10 % (0-12); NEUTROPHILS # (AUTO) 7.1 X 10^3 (1.8-7.8); NEUTROPHILS % (AUTO) 75 % (42-75); PLATELET COUNT 197 10^3/uL (130-400); WHITE BLOOD COUNT 9.4 10^3/uL (4.3-11.0)
[2019-12-02 11:04] LABS: MEAN CORPUSCULAR HEMOGLOBIN 31 PG (25-34)
[2019-12-02 11:18] LABS: CALCIUM 8.6 MG/DL (8.5-10.1); CREATININE SERUM 2.14 MG/DL (0.60-1.30); MAGNESIUM 1.8 MG/DL (1.6-2.4); POTASSIUM 3.4 MMOL/L (3.6-5.0)
[~2019-12-25] VITALS: Ht 162.6 cm; Wt 63.5 kg
[~2019-12-25 12:53] MED LIST changes: +ACETAMINOPHEN 500 MG TAB (TYLENOL) CANCER CTR ONE; +CENTER ONLY IV SCH; +CYCLOPHOSPHAMIDE INJECTION 600 MG in NS (IVPB) CANCER CENTER 250 ML IV SCH; +DOXORUBICIN HCL IV SCH; +FOSAPREPITANT (CANCER CENTER) 150 MG in NS (IVPB) CANCER CENTER ONLY 150 ML IV SCH; +NS IV 1000 ML (CANCER CTR) IV SCH; +NS IV 500 ML (CANCER CENTER) 500 ML ONE; +NS IV SCH; +RITUXIMAB ABBS IV SCH; +diphenhydrAMINE 25 MG TAB (BENADRYL) CANCER CENTER PO ONE
[2019-12-25 13:27] LABS: BASOPHILS # (AUTO) 0.1 10^3/uL (0.0-0.1); BASOPHILS % (AUTO) 1 % (0-10); EOSINOPHILS # (AUTO) 0.1 10^3/uL (0.0-0.3); EOSINOPHILS % (AUTO) 2 % (0-10); HEMATOCRIT 27 % (35-52); HEMOGLOBIN 8.5 g/dL (11.5-16.0); LYMPHOCYTES # (AUTO) 0.6 10^3/uL (1.0-4.0); LYMPHOCYTES % (AUTO) 9 % (12-44); MEAN CORPUSCULAR HEMOGLOBIN 31 pg (25-34); MEAN CORPUSCULAR HGB CONC 32 g/dL (32-36); MEAN CORPUSCULAR VOLUME 97 fL (80-99); MEAN PLATELET VOLUME 10.1 fL (9.0-12.2); MONOCYTES # (AUTO) 0.8 10^3/uL (0.0-1.0); MONOCYTES % (AUTO) 11 % (0-12); NEUTROPHILS # (AUTO) 5.2 10^3/uL (1.8-7.8); NEUTROPHILS % (AUTO) 76 % (42-75); PLATELET COUNT 168 10^3/uL (130-400); WHITE BLOOD COUNT 6.9 10^3/uL (4.3-11.0)
[2019-12-25 13:47] LABS: ALBUMIN 2.5 GM/DL (3.2-4.5); BILIRUBIN,TOTAL 0.4 MG/DL (0.1-1.0); CALCIUM 8.2 MG/DL (8.5-10.1); CREATININE SERUM 1.06 MG/DL (0.60-1.30); MAGNESIUM 1.6 MG/DL (1.6-2.4); TOTAL PROTEIN 4.8 GM/DL (6.4-8.2)
[2020-01-01] MEDS ORDERED: MORP-68 PO (14:52)
[2020-01-01] MEDS ORDERED: MIDO10TA PO (14:52)
[2020-01-01] MEDS ORDERED: SENN-234 PO (14:52)
[2020-01-01] MEDS ORDERED: VIT1TABL58 PO (14:52)
[2020-01-01] MEDS ORDERED: FOLIC ACID PO (14:52)
[2020-01-01] MEDS ORDERED: OXC5T PO (14:52)
[2020-01-01] MEDS ORDERED: ACYC200C PO (14:52)
[2020-01-01] MEDS ORDERED: VITA113O5 TP (14:52)
[2020-01-01] MEDS ORDERED: POLY17PO6 PO (14:52)
[2020-01-01] MEDS ORDERED: LORA-404 PO ×2 (14:52)
[2020-01-01] MEDS ORDERED: CYAN500T64 PO (14:52)
[2020-01-01] MEDS ORDERED: CALC667C10 PO (14:52)
[2020-01-01] MEDS ORDERED: SENN-109 PO (14:56)
== END 2020-02-20 | disposition home or self-care (01) ==
LOC: ONC 12:53
PROVIDERS: ATTEND Internal Medicine Hematology & Oncology
DX: C83.38 Diffuse large B-cell lymphoma, lymph nodes of multiple sites (principal); L89.312 Pressure ulcer of right buttock, stage 2; L89.322 Pressure ulcer of left buttock, stage 2; I12.0 Hypertensive chronic kidney disease with stage 5 chronic kidney disease or end stage renal disease; D63.0 Anemia in neoplastic disease; D63.1 Anemia in chronic kidney disease; D70.1 Agranulocytosis secondary to cancer chemotherapy; R50.81 Fever presenting with conditions classified elsewhere; I95.1 Orthostatic hypotension; J98.4 Other disorders of lung; N18.6 End stage renal disease; M19.90 Unspecified osteoarthritis, unspecified site; Z98.890 Other specified postprocedural states; Z90.89 Acquired absence of other organs; Z90.49 Acquired absence of other specified parts of digestive tract; Z98.82 Breast implant status; Z92.21 Personal history of antineoplastic chemotherapy; Z98.1 Arthrodesis status
CPT/HCPCS: 36430; 80053; 83615; 85025; 86850; 86900; 86901; 86920; G0463; P9016; 36591; 80048; 83735; 96367; 96375; 96411; 96413; 96417

== ENCOUNTER 2020-01-01 10:25 | Inpatient (IN) | payer MEDICARE ==
[2020-01-01] VITALS (9 sets, daily range): BP systolic 118–153; BP diastolic 60–97
[~2020-01-01] VITALS: Ht 162.6 cm; Wt 59.5 kg
[~2020-01-01 10:25] MED LIST changes: -ACETAMINOPHEN 500 MG TAB (TYLENOL) CANCER CTR ONE; -CENTER ONLY IV SCH; -CYCLOPHOSPHAMIDE INJECTION 600 MG in NS (IVPB) CANCER CENTER 250 ML IV SCH; -DOXORUBICIN HCL IV SCH; -FOSAPREPITANT (CANCER CENTER) 150 MG in NS (IVPB) CANCER CENTER ONLY 150 ML IV SCH; -NS IV 1000 ML (CANCER CTR) IV SCH; -NS IV 500 ML (CANCER CENTER) 500 ML ONE; -NS IV SCH; -RITUXIMAB ABBS IV SCH; -diphenhydrAMINE 25 MG TAB (BENADRYL) CANCER CENTER PO ONE
[2020-01-01] MEDS ORDERED: ASPIRIN 81 MG CHEW (CHILDREN'S ASA) PO ONE (10:45)
[2020-01-01] MEDS ORDERED: NS IV 1000 ML 1,000 ML IV SCH (10:45)
[2020-01-01] MEDS ORDERED: meTOprolol 5 MG/5 ML (LOPRESSOR) VIAL IV ONE (10:45)
--- NOTE | 2020-01-01 10:46 | ED General ---
General Stated Complaint: WEAKNESS Source of Information: EMS, Detention Records Exam Limitations: No Limitations History of Present Illness Date Seen by Provider: Jan 01, 2020 Time Seen by Provider: 10:44 Initial Comments Full code patient presents to ER from local long term where she had a recent carotid test that was negative with reports of general weakness. Patient is moaning and unable to contribute to history of present illness. She is noted to be atrial fibrillation with a rapid ventricular rate of about 130s on arrival, blood pressure is okay at 113 systolic. Hemodialysis on ,, Timing/Duration: Other Severity: Moderate Associated Systoms: Denies Symptoms Allergies and Home Medications Allergies Coded Allergies: No Known Drug Allergies (Unverified , 12/11/13) Home Medications Acetaminophen 650 Mg Tablet, 1,300 MG PO AC, (Reported) TAKE 2 (650MG) TABS Acetaminophen 650 Mg Tablet, 2,600 MG PO HS, (Reported) TAKES 4 (650MG) TABLET Baclofen 10 Mg Tablet, 10 MG PO Q8H PRN for MUSCLE SPASMS, (Reported) Cephalexin 500 Mg Tablet, 500 MG PO QID Prescribed by: LEESA DOMINGUEZ on 12/21/191730 Diazepam 5 Mg Tablet, 5 MG PO Q8H PRN for SPASMS, (Reported) Enalapril Maleate 20 Mg Tablet, 20 MG PO DAILY, (Reported) Hydrocodone Bit/Acetaminophen 1 Each Tablet, 1-2 TAB PO Q4H PRN for PAIN, (Reported) Senna 1 Ea Tablet, 1 EA PO DAILY Prescribed by: OMI SMALL on 07/08/14731 Trimethoprim/Sulfamethoxazole 1 Ea Tablet, 1 EA PO BID WITH MEALS Prescribed by: MOI SMALL on 07/08/14731 Patient Home Medication List Home Medication List Reviewed: Yes Review of Systems Review of Systems Constitutional: see HPI, other (unable to obtain) Past Ybzadlc-Iityae-Mkpvaz Hx Patient Social History Type Used: Cigarettes 2nd Hand Smoke Exposure: No Recent Hopitalizations: No Immunizations Up To Date Tetanus Booster (TDap): Unknown PED Vaccines UTD: No Seasonal Allergies Seasonal Allergies: Yes Past Medical History Surgeries: Yes (SEE BELOW) Appendectomy, Breast, Orthopedic, Tonsillectomy Respiratory: Yes (CHRONIC DYSPNEA; FORMER SMOKER) Cardiac: No Hypertension Neurological: No Reproductive Disorders: No 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 Genitourinary: Yes Bladder Infection, Renal Failure, Dialysis Gastrointestinal: Yes (APPY; ) Musculoskeletal: Yes (C-SPINE AND L-SPINE SURGERIES;L KNEE SCOPE) Degenerate Disk Disease, Chronic Back Pain Endocrine: No HEENT: Yes (TONSILLECTOMY) Cataract, Tonsilitis Cancer: Yes Lymphoma Did You Recieve Any Treatments: Yes What Type of Treatment Did You: Chemotherapy Psychosocial: Yes Depression Integumentary: No Blood Disorders: No Adverse Reaction/Blood Tranf: No Family Medical History BACK INJURY 19 MOTHER Cardiovascular disease 19 FATHER 19 MOTHER Chronic hepatitis Colon cancer G8 BROTHER Coronary thrombosis 19 FATHER 19 MOTHER Diabetes mellitus 19 MOTHER FH: lung cancer G8 BROTHER FH: lupus 19 FATHER Kidney disease 19 MOTHER (RENAL FAILURE ) Meningitis Myocardial infarction 19 FATHER 19 MOTHER PSH: -TONSILLECOMTY -APPENDECTOMY -1996--LEFT KNEE SCOPE -1997 BREAST AUGMENTATION + TUMMY TUCK/ABDOMINOPLASTY -2013--CERVICAL SPINE FUSION C3-C7 -2014--LUMBAR SPINE SURGERY/FUSION L3-L5 Physical Exam Vital Signs Vital Signs - First Documented 01/01/20 10:25 Temp 37.5 Pulse 132 Resp 32 B/P (MAP) 120/70 (87) Pulse Ox 95 O2 Delivery Room Air O2 Flow Rate 5.00 Capillary Refill : Height, Weight, BMI Height: 5'7.00" Weight: 188lbs. 8.0oz. 85.041380fu; 22.00 BMI Method: General Appearance: Chronically ill, Mild Distress (not mentating well, appears much older than stated age and in very poor overall health), Other (hemodialysis catheter seen in the right chest wall, left Groshong has been accessed. Patient is emaciated.) Eyes: Bilateral Eye Normal Inspection, Bilateral Eye PERRL, Bilateral Eye EOMI Neck: Full Range of Motion, Normal Inspection Respiratory: No Accessory Muscle Use, No Respiratory Distress Cardiovascular: Irregularly Irregular, Tachycardia Gastrointestinal: Non Tender, Soft Extremity: Normal Capillary Refill, Normal Inspection Neurologic/Psychiatric: Alert, Oriented x3 Skin: Normal Color, Warm/Dry (nares and central line) Focused Exam Lactate Level 01/01/20 10:30: Lactic Acid Level 1.22 Lactic Acid Level Laboratory Tests Test 01/01/20 10:30 Lactic Acid Level 1.22 MMOL/L (0.50-2.00) Progress/Results/Core Measures Suspected Sepsis SIRS Temperature: Pulse: Respiratory Rate: Laboratory Tests 01/01/20 10:30: White Blood Count 0.2*L Blood Pressure / Mean: 01/01/20 10:30: Lactic Acid Level 1.22 Laboratory Tests 01/01/20 10:30: Creatinine 1.36H, INR Comment 1.6H, Platelet Count 17*L, Total Bilirubin 1.0 Results/Orders Lab Results Laboratory Tests Test 01/01/20 10:30 01/01/20 10:55 Range/Units White Blood Count 0.2 *L 4.3-11.0 10^3/uL Red Blood Count 2.13 L 3.80-5.11 10^6/uL Hemoglobin 6.5 #*L 11.5-16.0 g/dL Hematocrit 21 L 35-52 % Mean Corpuscular Volume 96 80-99 fL Mean Corpuscular Hemoglobin 31 25-34 pg Mean Corpuscular Hemoglobin Concent 32 32-36 g/dL Red Cell Distribution Width 19.0 H 10.0-14.5 % Platelet Count 17 *L 130-400 10^3/uL Mean Platelet Volume 10.0 9.0-12.2 fL Immature Granulocyte % (Auto) 0 % Neutrophils (%) (Auto) 30 L 42-75 % Lymphocytes (%) (Auto) 35 12-44 % Monocytes (%) (Auto) 35 H 0-12 % Eosinophils (%) (Auto) 0 0-10 % Basophils (%) (Auto) 0 0-10 % Neutrophils # (Auto) 0.1 L 1.8-7.8 10^3/uL Lymphocytes # (Auto) 0.1 L 1.0-4.0 10^3/uL Monocytes # (Auto) 0.1 0.0-1.0 10^3/uL Eosinophils # (Auto) 0.0 0.0-0.3 10^3/uL Basophils # (Auto) 0.0 0.0-0.1 10^3/uL Immature Granulocyte # (Auto) 0.0 0.0-0.1 10^3/uL Prothrombin Time 19.1 H 12.2-14.7 SEC INR Comment 1.6 H 0.8-1.4 Activated Partial Thromboplast Time 53 H 24-35 SEC Sodium Level 152 H 135-145 MMOL/L Potassium Level 3.6 3.6-5.0 MMOL/L Chloride Level 109 H 98-107 MMOL/L Carbon Dioxide Level 27 21-32 MMOL/L Anion Gap 16 H 5-14 MMOL/L Blood Urea Nitrogen 51 H 7-18 MG/DL Creatinine 1.36 H 0.60-1.30 MG/DL Estimat Glomerular Filtration Rate 39 BUN/Creatinine Ratio 38 Glucose Level 144 H 70-105 MG/DL Lactic Acid Level 1.22 0.50-2.00 MMOL/L Calcium Level 9.6 8.5-10.1 MG/DL Corrected Calcium 10.8 H 8.5-10.1 MG/DL Magnesium Level 1.6 1.6-2.4 MG/DL Total Bilirubin 1.0 0.1-1.0 MG/DL Aspartate Amino Transf (AST/SGOT) 13 5-34 U/L Alanine Aminotransferase (ALT/SGPT) 28 0-55 U/L Alkaline Phosphatase 62 40-136 U/L Myoglobin 39.8 10.0-92.0 NG/ML Troponin I 0.064 H <0.028 NG/ML B-Type Natriuretic Peptide 2553.9 H <100.0 PG/ML Total Protein 4.8 L 6.4-8.2 GM/DL Albumin 2.5 L 3.2-4.5 GM/DL Procalcitonin 1.22 H <0.10 NG/ML Smear Scan YES Urine Color YELLOW Urine Clarity CLOUDY Urine pH 6.0 5-9 Urine Specific [place] 1.010 L 1.016-1.022 Urine Protein 1+ H NEGATIVE Urine Glucose (UA) NEGATIVE NEGATIVE Urine Ketones 1+ H NEGATIVE Urine Nitrite NEGATIVE NEGATIVE Urine Bilirubin 1+ H NEGATIVE Urine Urobilinogen 0.2 < = 1.0 MG/DL Urine Leukocyte Esterase 2+ H NEGATIVE Urine RBC (Auto) 2+ H NEGATIVE Urine RBC 10-25 H /HPF Urine WBC 10-25 H /HPF Urine Squamous Epithelial Cells 5-10 /HPF Urine Crystals NONE /LPF Urine Bacteria MODERATE H /HPF Urine Casts NONE /LPF Urine Mucus NEGATIVE /LPF Urine Yeast LARGE H /HPF Urine Culture Indicated CULTURE PENDING My Orders Orders - YOVANA CHAUDHARY APRN Cbc With Automated Diff (01/01/20 10:43) Magnesium (01/01/20 10:43) Chest 1 View, Ap/Pa Only (01/01/20 10:43) Ekg Tracing (01/01/20 10:43) Comprehensive Metabolic Panel (01/01/20 10:43) Myoglobin Serum (01/01/20 10:43) Protime With Inr (01/01/20 10:43) Partial Thromboplastin Time (01/01/20 10:43) O2 (01/01/20 10:43) Monitor-Rhythm Ecg Trace Only (01/01/20 10:43) Lipid Panel (01/02/20 06:00) Ed Iv/Invasive Line Start (01/01/20 10:43) BNP (01/01/20 10:43) Troponin I (01/01/20 10:43) Aspirin Chewable Tablet (Baby Aspirin Ch (01/01/20 10:45) Metoprolol Tartrate Injection (Lopressor (01/01/20 10:45) Ns Iv 1000 Ml (Sodium Chloride 0.9%) (01/01/20 10:45) Catheter(Urinary) Care .0300, 1500 (01/01/20 10:46) Ua Culture If Indicated (01/01/20 10:46) Procalcitonin (Pct) (01/01/20 10:46) Blood Culture (01/01/20 10:46) Lactic Acid Analyzer (01/01/20 10:46) Morphine Injection (Morphine Injection (01/01/20 10:55) Red Cells Leukocytes Reduced (01/01/20 11:31) Type And Screen (01/01/20 11:31) Cefepime Injection (Maxipime Injection) (01/01/20 11:45) Tbo-Filgrastim Injection (Granix Injecti (01/01/20 11:45) Medications Given in ED Current Medications Medications Dose Ordered Sig/Haritha Route Start Time Stop Time Status Last Admin Dose Admin Aspirin 324 mg ONCE ONCE PO 01/01/20 10:45 01/01/20 10:46 DC 01/01/20 11:08 324 MG Cefepime HCl 1000 mg/Sterile Water 10 ml @ 200 mls/hr ONCE ONCE IV 01/01/20 11:45 01/01/20 11:47 DC 01/01/20 12:06 200 MLS/HR Metoprolol Tartrate 5 mg ONCE ONCE IV 01/01/20 10:45 01/01/20 10:46 DC 01/01/20 11:07 5 MG Vital Signs/I&O 01/01/20 01/01/20 10:25 10:25 Temp 37.5 Pulse 132 Resp 32 B/P (MAP) 120/70 (87) Pulse Ox 95 O2 Delivery Room Air OxyMask O2 Flow Rate 5.00 Capillary Refill : Diagnostic Imaging Diagonstic Imaging: Xray Plain Films/CT/US/NM/MRI: chest Comments NAME: SG TIM [facility] REC#: [id number] PT STATUS: REG ER : 1950 PHYSICIAN: YOVANA CHAUDHARY APRN ADMIT DATE: 01/01/20/ER Draft Date of Exam:01/01/20 CHEST 1 VIEW, AP/PA ONLY INDICATION: Chest pain and weakness. Frontal chest obtained at 1105 a.m. and compared to 10/16/2019. Port-A-Cath and dialysis catheter are unchanged. There is very poor inspiration. There is stable left perihilar infiltrate. There is improved aeration of the right upper lobe compared to the prior study. There is underlying central vascular congestion. There is no pneumothorax or pleural fluid. IMPRESSION: Poor inspiration. Stable chronic infiltrate in the left perihilar region. Improved aeration of right upper lobe compared to the prior study. Underlying central vascular congestion. Dictated on workstation # [id number] Dict: 01/01/20 1123 Trans: 01/01/20 1126 [facility] [id number] Interpreted by: MIGUEL WYNN MD Electronically signed by: Departure Communication (Admissions) 1108-I discussed CODE STATUS with the patient. I posed the question "if your heart stops unexpectedly do we do CPR or let you go naturally?" She replies "i dont know" in between moaning. I then called Silvio Nolen (nephew) because she has no or children. He states that he and his mother which would be the patient's sister can make decisions for her and he states "I know she does not want to be on a ventilator". I advised him that if we DO NOT INTUBATE and chest compressions and CPR is ineffective as well. I recommended DO NOT RESUSCITATE status and he agrees that she should be DO NOT RESUSCITATE status. 1148-Since patient is still on hemodialysis she will need transfer to a facility that has that capability. [facility] is on diversion, [facility] is on diversion, [facility] is on diversion.Spoke with Dr valerio (hem/onc) recommends transfusing PRBC, neupogen for the leukopenia with UTI. 1209-long term has called us to report that the patient's training and development manager Dr. Bravo discontinued her dialysis on 12/26/19 as she had regained kidney function. Last chemotherapy 12/25/19. I spoke with Dr. Hines, we'll admit. I spoke with Dr. Zhong and Dr. Arceo, both of them will consult. Impression Primary Impression: Pancytopenia Additional Impressions: Wasting generalized Urinary tract infection Atrial fibrillation General weakness Disposition: ADMITTED INPATIENT Condition: Stable Admissions Decision to Admit Reason: Admit from ER (General) Decision to Admit/Date: Jan 01, 2020 Time/Decision to Admit Time: 12:11 Departure-Patient Inst. Referrals: [facility] (PCP) Primary Care Physician BECKY EDUARDO (Family) Primary Care Physician YOVANA CHAUDHARY APRN Jan 01, 2020 10:46
[2020-01-01 10:49] LABS: BASOPHILS % (AUTO) 0 % (0-10); EOSINOPHILS % (AUTO) 0 % (0-10)
[2020-01-01 10:51] LABS: HEMATOCRIT 21 % (35-52); LYMPHOCYTES # (AUTO) 0.1 10^3/uL (1.0-4.0); LYMPHOCYTES % (AUTO) 35 % (12-44); MEAN CORPUSCULAR HEMOGLOBIN 31 pg (25-34); MEAN CORPUSCULAR HGB CONC 32 g/dL (32-36); MEAN CORPUSCULAR VOLUME 96 fL (80-99); MONOCYTES # (AUTO) 0.1 10^3/uL (0.0-1.0); MONOCYTES % (AUTO) 35 % (0-12); NEUTROPHILS # (AUTO) 0.1 10^3/uL (1.8-7.8); NEUTROPHILS % (AUTO) 30 % (42-75)
[2020-01-01] MEDS ORDERED: morphine INJ 10 MG/ML 1ML (SYR OR VIAL) IVP STA (10:55)
[2020-01-01 10:58] LABS: ALBUMIN 2.5 GM/DL (3.2-4.5); POTASSIUM 3.6 MMOL/L (3.6-5.0)
[2020-01-01 10:59] LABS: CALCIUM 9.6 MG/DL (8.5-10.1)
[2020-01-01 11:00] LABS: TOTAL PROTEIN 4.8 GM/DL (6.4-8.2)
[2020-01-01 11:03] LABS: INR 1.6 (0.8-1.4); PROTHROMBIN TIME PATIENT 19.1 SEC (12.2-14.7)
[2020-01-01 11:03] LABS: BILIRUBIN,URINE 1+ (NEGATIVE); CLARITY,URINE CLOUDY; COLOR,URINE YELLOW; GLUCOSE, URINE (UA) NEGATIVE (NEGATIVE); KETONES,URINE 1+ (NEGATIVE); LEUKOCYTE ESTERASE ,URINE 2+ (NEGATIVE); NITRITE,URINE NEGATIVE (NEGATIVE); PROTEIN,URINE 1+ (NEGATIVE)
[2020-01-01 11:04] LABS: CREATININE SERUM 1.36 MG/DL (0.60-1.30)
[2020-01-01 11:07] LABS: MAGNESIUM 1.6 MG/DL (1.6-2.4)
[2020-01-01 11:15] LABS: BACTERIA,URINE MODERATE /HPF; YEAST,URINE LARGE /HPF
[2020-01-01 11:25] LABS: HEMOGLOBIN 6.5 g/dL (11.5-16.0); WHITE BLOOD COUNT 0.2 10^3/uL (4.3-11.0)
[2020-01-01 11:26] LABS: PLATELET COUNT 17 10^3/uL (130-400)
--- NOTE | 2020-01-01 11:26 | Diagnostic Imaging Report ---
INDICATION: Chest pain and weakness. Frontal chest obtained at 1105 a.m. and compared to 10/16/2019. Port-A-Cath and dialysis catheter are unchanged. There is very poor inspiration. There is stable left perihilar infiltrate. There is improved aeration of the right upper lobe compared to the prior study. There is underlying central vascular congestion. There is no pneumothorax or pleural fluid. IMPRESSION: Poor inspiration. Stable chronic infiltrate in the left perihilar region. Improved aeration of right upper lobe compared to the prior study. Underlying central vascular congestion. Dictated by: Dictated on workstation # [id number]
[2020-01-01 11:27] LABS: SMEAR SCAN COMMENT YES
[2020-01-01] MEDS ORDERED: TBO-FILGRASTIM 480 MCG/0.8 ML (GRANIX) SQ SCH (11:45)
[2020-01-01] MEDS ORDERED: CEFEPIME INJECTION 1,000 MG in WATER (STERILE) FOR INJECTION 10 ML IV ONE (11:45)
--- NOTE | 2020-01-01 11:59 | NUR ---
CALLED AND TALKED WITH [facility] THEY REPORT THAT LAST CHEMO WSAS ON Dec \ LAST DIALYSIS WAS ON DEC 25 AND WAS DC'D AT THAT TIME.
--- NOTE | 2020-01-01 12:53 | NUR ---
DR FARRELL HERE TO SEE PATIENT.
--- NOTE | 2020-01-01 13:15 | NUR ---
CALLED TO GIVE REPORT NURSE WITH PATIENT WILL CALL BACK.
--- NOTE | 2020-01-01 13:43 | NUR ---
SISTER CALLED UPDATE GIVEN AND INFORMED THAT WILL BE ON PALLATIVE CARE. AND CALL IN A 2 HRS AND CHECK WHAT VISITATION IS ON PATIENTS WITH PALATIVE CARE. DURING REPORT NURSE NOTIFIED THAT BLOOD READY.
--- NOTE | 2020-01-01 13:55 | NUR ---
Sg Daphney admitted to room 406-1, with an admitting diagnosis of pancytopenia and UTI, on 01/01/20 from AM via .SG TIM introduced to surroundings, call light, bed controls, phone, TV, temperature control, lights, meal times, smoking policy, visitor policy, side rail policy, bathrooms and showers. Patient Rights given to patient in the handbook.SG TIM verbalizes understanding that [facility] is not responsible for the loss or damage to any personal effects or valuables that are kept in the patients posession during their hospitalization. SG TIM verbalizes understanding of Interdisciplinary Patient Education. Patient and/or family were informed about the Rapid Response Team and its purpose.
[2020-01-01] MEDS ORDERED: NS IV 500 ML 500 ML IV SCH (14:15)
[2020-01-01] MEDS ORDERED: CATHETER FLUSH 10 ML SYR IV PRN (14:15)
--- NOTE | 2020-01-01 14:15 | Consultation-Cardiology ---
HPI-Cardiology Cardiology Consultation Date of Consultation 01/01/20 Date of Admission Time Seen by Provider: 12:40 Indication: Atrial fibrillation HPI Patient is a 69 y/o female with history of nonHodgkins lymphoma, ESRD on HD. Presented to the ER with complaints of generalized weakness. Poor historian and answers limiting questions. Denies any chest pain, denies any dyspnea. Noted to be in atrial fibrillation in the ER. Was given IV fluids and beta blockers in the ER and coverted back to sinus rhythm. 69 years old lady with history of non-Hodgkin lymphoma, chronic kidney disease, unable to provide full history history was obtained by reviewing her record. She was transferred to the emergency room and noted to be in atrial fibrillation with rapid ventricular response, given IV fluid and one dose of IV beta blockers which resulted in conversion to sinus rhythm, she is laying down in bed denied any active pain at this time. Unable to provide any further history. Home Medications & Allergies Allergies: Coded Allergies: No Known Drug Allergies (Unverified , 12/11/13) Home Medication List Reviewed: Yes MWH-Agylxn-Yrxybv Hx Patient Social History Alcohol Use: Denies Use Recreational Drug Use: No Former smoker/When Quit: May 11, 2010 Type Used: Cigarettes 2nd Hand Smoke Exposure: No Recent Foreign Travel: No Recent Infectious Disease Expo: No Recent Hopitalizations: No Immunizations Up To Date Tetanus Booster (TDap): Unknown Past Medical History NonHodgkins lymphoma Renal failure, on HD. Family Medical History Family History: BACK INJURY 19 MOTHER Cardiovascular disease 19 FATHER 19 MOTHER Chronic hepatitis Colon cancer G8 BROTHER Coronary thrombosis 19 FATHER 19 MOTHER Diabetes mellitus 19 MOTHER FH: lung cancer G8 BROTHER FH: lupus 19 FATHER Kidney disease 19 MOTHER (RENAL FAILURE ) Meningitis Myocardial infarction 19 FATHER 19 MOTHER Review of Systems-General Review of Systems Constitutional: see HPI, other (unable to obtain) Respiratory: No short of breath Cardiovascular: No chest pain Reviewed Test Results Reviewed Test Results Lab Laboratory Tests 01/01/20 10:30: White Blood Count 0.2*L, Red Blood Count 2.13L, Hemoglobin 6.5#*L, Hematocrit 21L, Mean Corpuscular Volume 96, Mean Corpuscular Hemoglobin 31, Mean Corpuscular Hemoglobin Concent 32, Red Cell Distribution Width 19.0H, Platelet Count 17*L, Mean Platelet Volume 10.0, Immature Granulocyte % (Auto) 0, Neutrophils (%) (Auto) 30L, Lymphocytes (%) (Auto) 35, Monocytes (%) (Auto) 35H, Eosinophils (%) (Auto) 0, Basophils (%) (Auto) 0, Neutrophils # (Auto) 0.1L, Lymphocytes # (Auto) 0.1L, Monocytes # (Auto) 0.1, Eosinophils # (Auto) 0.0, Basophils # (Auto) 0.0, Immature Granulocyte # (Auto) 0.0, Prothrombin Time 19.1H, INR Comment 1.6H, Activated Partial Thromboplast Time 53H, Sodium Level 152H, Potassium Level 3.6, Chloride Level 109H, Carbon Dioxide Level 27, Anion Gap 16H, Blood Urea Nitrogen 51H, Creatinine 1.36H, Estimat Glomerular Filtration Rate 39, BUN/Creatinine Ratio 38, Glucose Level 144H, Lactic Acid L evel 1.22, Calcium Level 9.6, Corrected Calcium 10.8H, Magnesium Level 1.6, Total Bilirubin 1.0, Aspartate Amino Transf (AST/SGOT) 13, Alanine Aminotransferase (ALT/SGPT) 28, Alkaline Phosphatase 62, Myoglobin 39.8, Troponin I 0.064H, B-Type Natriuretic Peptide 2553.9H, Total Protein 4.8L, Albumin 2.5L, Procalcitonin 1.22H, Smear Scan YES 01/01/20 10:55: Urine Color YELLOW, Urine Clarity CLOUDY, Urine pH 6.0, Urine Specific [place] 1.010L, Urine Protein 1+H, Urine Glucose (UA) NEGATIVE, Urine Ketones 1+H, Urine Nitrite NEGATIVE, Urine Bilirubin 1+H, Urine Urobilinogen 0.2, Urine Leukocyte Esterase 2+H, Urine RBC (Auto) 2+H, Urine RBC 10-25H, Urine WBC 10-25H, Urine Squamous Epithelial Cells 5-10, Urine Crystals NONE, Urine Bacteria MODERATEH, Urine Casts NONE, Urine Mucus NEGATIVE, Urine Yeast LARGEH, Urine Culture Indicated CULTURE PENDING ECG Impression ECG Initial ECG Rhythm: A Fib/Flutter Initial ECG Impression: Atrial Fibrillation w/RVR Physical Exam Physical Exam Vital Signs Vital Signs - First Documented 01/01/20 10:25 Temp 37.5 Pulse 132 Resp 32 B/P (MAP) 120/70 (87) Pulse Ox 95 O2 Delivery Room Air O2 Flow Rate 5.00 Capillary Refill : Less Than 3 Seconds Height, Weight, BMI Height: 5'7.00" Weight: 188lbs. 8.0oz. 85.611644bo; 22.50 BMI Method: General Appearance: Chronically ill, Mild Distress (not mentating well, appears much older than stated age and in very poor overall health), Other (hemodialysis catheter seen in the right chest wall, left Groshong has been accessed. Patient is emaciated.) Eyes: Bilateral Eye Normal Inspection, Bilateral Eye PERRL, Bilateral Eye EOMI Neck: Full Range of Motion, Normal Inspection Respiratory: No Accessory Muscle Use, No Respiratory Distress Cardiovascular: Irregularly Irregular, Tachycardia Gastrointestinal: Non Tender, Soft Extremity: Normal Capillary Refill, Normal Inspection Neurologic/Psychiatric: Alert, Oriented x3 Skin: Normal Color, Warm/Dry (nares and central line) A/P-Cardiology Admission Diagnosis Atrial fibrillation UTI Pancytopenia NonHodgkins Assessment/Plan Atrial fibrillation- Initial EKG showed afib with RVR. Converted to SR while in the ER with IV Fluids and beta blockers. Unable to tolerate OAC d/t anemia and thrombocytopenia. Will continue with conservative management, obtain 2D Echo. [id number] score of 2, yearly risk of stroke without OAC is 2.2%. Unable to tolerate OAC at this time secondary to anemia and thrombocytopenia. UTI- management per medical services. Pancytopenia- management per medical services, continue to monitor. ESRD, on hemodialysis, reported improvement of kidney function and currently not requiring dialysis at this time. NonHodgkins lymphoma, undergoing radiation. Thank you for allowing us to participate in the management of Ms. Shelley. This is Miriam Rivero PA-C, as a scribe for Dr. Arceo. Patient was seen and evaluated with Miriam, examination performed, management plan was discussed, agree with the current scribed note, I made few changes to the note using Italic font Paroxysmal atrial fibrillation returned to sinus rhythm, could be transient. Continue to monitor on telemetry at this time Continue with IV fluid Pancytopenia, probably secondary to chemotherapy. Managed by Dr. Zhong. Patient cannot tolerate oral anticoagulation due to severe anemia and thrombocytopenia. MIRIAM LUND Jan 01, 2020 14:15 ANGELIA ARCEO MD Jan 01, 2020 15:17
--- NOTE | 2020-01-01 14:15 | History & Physical-Hospitalist ---
NANCY MERIDA MED STUDENT 01/01/20 1414: History of Present Illness HPI/Chief Complaint CC: Weakness HPI: Patient is a 69 y/o female with hx of HTN, ESRD and diffuse large B-cell lymphoma and recent completion of chemotherapy presents to ER for generalized weakness. Patient was sent from [facility] for weakness, Er was unable to obtain much history as patient was not able to verbalize secondary to symptoms. Patient was given NS IV 1L and metoprolol for tachycardia. Cxr showed poor inspiration and stable chronic infiltrate in L perihilar region as well as central vascular congestion. Patient began feeling better and was able to answer basic questions by Dr. Prajapati. She denies any CP, SOB, abdominal pain, headache or other complaints at this time other than extreme weakness; patient was drifting in and out of sleep during questioning. Per records, patient ceased chemotherapy on 12/24 and dialysis on 12/25. Dr. Arceo and Dr. Choudhary have been consulted. Patient currently stable and will be transferred to inpatient. Patient's nephew and sister were contacted and have agreed to put patient on DNR status. Source: patient, old records, other (ER note) Date Seen 01/01/20 Time Seen by a Provider: 12:20 Attending Physician Carmen Prajapati DO [facility] Referring Physician Date of Admission Jan 01, 2020 at 13:05 Home Medications & Allergies Home Medications Reviewed patient Home Medication Reconciliation performed by pharmacy medication reconciliations dialysis patient care technician and/or nursing. Patients Allergies have been reviewed. Allergies Allergies Coded Allergies No Known Drug Allergies ([id number]/1/14) Past Jschufv-Hpbedo-Lnhlus Hx Patient Social History Alcohol Use: Denies Use Recreational Drug Use: No Type Used: Cigarettes 2nd Hand Smoke Exposure: No Recent Foreign Travel: No Contact w/other who traveled: No Recent Hopitalizations: No Recent Infectious Disease Expo: No Immunizations Up To Date Tetanus Booster (TDap): Unknown Pediatric: No Seasonal Allergies Seasonal Allergies: Yes Past Medical History Surgeries: Appendectomy, Breast, Orthopedic, Tonsillectomy Cardiac: Hypertension Reproductive: No Menopausal Genitourinary: Bladder Infection, Renal Failure, Dialysis Musculoskeletal: Degenerate Disk Disease, Chronic Back Pain HEENT: Cataract, Tonsilitis Cancer: Lymphoma (diffuse, large B-cell) Did You Recieve Any Treatments: Yes What Type of Treatment Did You: Chemotherapy (completed on 12/25/19) Psychosocial: Depression History of Blood Disorders: No Adverse Reaction to Blood Whitaker: No Family History BACK INJURY 19 MOTHER Cardiovascular disease 19 FATHER 19 MOTHER Chronic hepatitis Colon cancer G8 BROTHER Coronary thrombosis 19 FATHER 19 MOTHER Diabetes mellitus 19 MOTHER FH: lung cancer G8 BROTHER FH: lupus 19 FATHER Kidney disease 19 MOTHER (RENAL FAILURE ) Meningitis Myocardial infarction 19 FATHER 19 MOTHER PSH: -TONSILLECOMTY -APPENDECTOMY -1996--LEFT KNEE SCOPE -1997 BREAST AUGMENTATION + TUMMY TUCK/ABDOMINOPLASTY -2013--CERVICAL SPINE FUSION C3-C7 -2014--LUMBAR SPINE SURGERY/FUSION L3-L5 Review of Systems Constitutional: No fever; weakness EENTM: No mouth pain, No throat pain Respiratory: No short of breath, No wheezing Cardiovascular: No chest pain, No edema Gastrointestinal: No abdominal pain, No jaundice Genitourinary: No dysuria, No pain Musculoskeletal: No joint swelling, No muscle pain Skin: No pruritus, No rash Psychiatric/Neurological: Denies Headache; Weakness Physical Exam Physical Exam Vital Signs Vital Signs - First Documented 01/01/20 10:25 Temp 37.5 Pulse 132 Resp 32 B/P (MAP) 120/70 (87) Pulse Ox 95 O2 Delivery Room Air O2 Flow Rate 5.00 Capillary Refill : Less Than 3 Seconds Height, Weight, BMI Height: 5'7.00" Weight: 188lbs. 8.0oz. 85.283127pc; 22.50 BMI Method: General Appearance: Chronically ill, Cachetic, Moderate Distress HEENT: No Scleral Icterus (L), No Scleral Icterus (R) Neck: Normal Inspection, Non Tender Respiratory: Chest Non Tender, Lungs Clear, No Accessory Muscle Use, No Respiratory Distress Cardiovascular: No Murmur, Tachycardia Gastrointestinal: No Pulsatile Mass, Non Tender, Soft Extremity: Normal Inspection, Non Tender, No Calf Tenderness, No Pedal Edema Neurologic/Psychiatric: Alert, Disoriented (mildly, improving in room), Other Skin: Normal Color; No Jaundice Results Results/Procedures Labs Laboratory Tests 01/01/20 10:30 Patient resulted labs reviewed. Assessment/Plan Assessment and Plan Pancytopenia -severe leukopenia -severe anemia -severe thrombocytopenia -consult hem/onc: Dr. Choudhary-recommends neupogen with UTI UTI -urine culture -Cefipime ordered Afib -consult cardiology chronic -Weakness CARMEN PRAJAPATI DO 01/01/202115: History of Present Illness HPI/Chief Complaint CC: Weakness HPI: This is a 69[facility]WF [facility] patient who resides at [facility] who has a PMH of lymphoma who just recently stopped dialysis since her renal function had returned since she was responding to chemotherapy who presented to the ER with weakness, found to have Sodium level 152, Creatinine 1.3 and Hgb of 6. Dr. Zhong was consulted and she did have neutropenia so she was given Neupogen for severe neutropenia. She was also given antibiotics for a UTI at this current time Pt is very lethargic but oriented X3. Dr. Zhong has been consulted. Past Opvpmap-Siddde-Jamqcb Hx Past Med/Social Hx: Reviewed Nursing Past Med/Soc Hx, Reviewed and Corrections made Patient Social History Marrital Status: single Family History BACK INJURY 19 MOTHER Cardiovascular disease 19 FATHER 19 MOTHER Chronic hepatitis Colon cancer G8 BROTHER Coronary thrombosis 19 FATHER 19 MOTHER Diabetes mellitus 19 MOTHER FH: lung cancer G8 BROTHER FH: lupus 19 FATHER Kidney disease 19 MOTHER (RENAL FAILURE ) Meningitis Myocardial infarction 19 FATHER 19 MOTHER Review of Systems Constitutional: see HPI, dizziness, malaise, weakness Physical Exam Physical Exam General Appearance: No Apparent Distress, Anxious, Chronically ill, Cachetic Respiratory: Chest Non Tender, Lungs Clear, Normal Breath Sounds, No Accessory Muscle Use, No Respiratory Distress Cardiovascular: Regular Rate, Rhythm, No Edema, No Gallop, No JVD, No Murmur, Normal Peripheral Pulses Assessment/Plan Admission Diagnosis Assessment: Severe pancytopenia from chemotherapy s/p dialysis DC 1 week ago with recovery of renal function Hypernatremia Dehydration Severe anemia UTI Plan: IV abx Hematology consultation Admission Status: Inpatient Order (span 2 midnights) Reason for Inpatient Admission: UTI with pancytopenia Diagnosis/Problems Diagnosis/Problems (1) Pancytopenia Status: Acute (2) Urinary tract infection Status: Acute (3) Atrial fibrillation Status: Acute (4) Cystitis Status: Acute (5) Wasting generalized Status: Acute (6) General weakness Status: Acute Supervisory-Addendum Brief Verification & Attestation Participated in pt care: history, MDM, physical Personally performed: exam, history, MDM, supervision of care Care discussed with: Medical Student Procedures: n/a Results interpretation: Verified all documentation Verification and Attestation of Medical Student E/M Service A medical student performed and documented this service in my presence. I reviewed and verified all information documented by the medical student and made modifications to such information, when appropriate. I personally performed the physical exam and medical decision making. Carmen Prajapati, Jan 01, 2020,21:17 NANCY MERIDA MED STUDENT Jan 01, 2020 14:14 CARMEN PRAJAPATI DO Jan 01, 2020 21:16
[2020-01-01] MEDS ORDERED: CALC667C10 PO (14:52)
[2020-01-01] MEDS ORDERED: MIDO10TA PO (14:52)
[2020-01-01] MEDS ORDERED: OXC5T PO (14:52)
[2020-01-01] MEDS ORDERED: CYAN500T62 PO (14:52)
[2020-01-01] MEDS ORDERED: LORA-404 PO ×2 (14:52)
[2020-01-01] MEDS ORDERED: FOLIC ACID PO (14:52)
[2020-01-01] MEDS ORDERED: POLY17PO6 PO (14:52)
[2020-01-01] MEDS ORDERED: MORP-68 PO (14:52)
[2020-01-01] MEDS ORDERED: VITA113O5 TP (14:52)
[2020-01-01] MEDS ORDERED: VIT1TABL58 PO (14:52)
[2020-01-01] MEDS ORDERED: ACYC200C PO (14:52)
[2020-01-01] MEDS ORDERED: SENN-234 PO (14:52)
[2020-01-01] MEDS ORDERED: SENN-109 PO (14:56)
--- NOTE | 2020-01-01 15:01 | NUR ---
THE MED REC WAS ENTERED USING THE MAR FROM [facility] AND [facility]
[2020-01-01] MEDS: RT-ALBUTEROL/IPRATROPIUM 3 ML (DUONEB) VIAL INH SCH ×2 (16:29→19:14)
[2020-01-01] MEDS ORDERED: VITAMINS A AND D TP PRN (17:00)
[2020-01-01] MEDS ORDERED: RT-ALBUTEROL/IPRATROPIUM 3 ML (DUONEB) VIAL INH PRN (17:00)
[2020-01-01] MEDS ORDERED: polyethylene glycoL POWDER 17 GM (MIRALAX) PACK PO PRN (17:00)
[2020-01-01] MEDS ORDERED: A & D OINT 113 GM TUBE TOP PRN (17:00)
[2020-01-01] MEDS ORDERED: SENNA W/DOCUSATE (SENOKOT S) TABLET PO PRN (17:00)
[2020-01-01] MEDS ORDERED: LORazepam 0.5 MG (ATIVAN) TABLET PO PRN (17:00)
--- NOTE | 2020-01-01 17:14 | NUR ---
DR RODRIGUEZ ON THE FLOOR. MADE SEVERAL SUGGESTIONS FOR ORDER CHANGES IF THEY ARE OKAY WITH DR PRAJAPATI. RUN ONE BAG OF FLUID AT 250 MLS PER HOUR THEN AT 100-150 MLS PER HOUR. GIVE ONE MORE UNIT OF BLOOD- HE ANTS THE HGB TO BE AT LEAST 8.. START GRANIX TODAY. DR PRAJAPATI IS OKAY WITH THESE ORDERS IF DR FARRELL IS OKAY WITH THE VOLUME ON FLUID. DR FARRELL NOTIFIED. HE IS OKAY WITH THESE ORDER CHANGES.
[2020-01-01] MEDS ORDERED: 1/2 NS IV SOLUTION 1,000 ML IV ONE (17:30)
[2020-01-01] MEDS ORDERED: NON-FORMULARY MEDICATION 1 EA EA (Cyanocobalamin (Vitamin B-12) (Vitamin B-12) 500 MCG) PO SCH (18:00)
[2020-01-01] MEDS ORDERED: ACYCLOVIR 200 MG PO SCH (18:00)
[2020-01-01] MEDS: ACYCLOVIR 400 MG TABLET (ZOVIRAX) PO SCH (18:09)
[2020-01-01] MEDS: MIDODRINE 10 MG (PROAMATINE) TAB PO SCH (18:11)
[2020-01-01] MEDS: CALCIUM ACETATE 667 MG CAP (PHOSLO) PO SCH (18:11)
[2020-01-01] MEDS: CYANOCOBALAMIN 1,000 MCG (VITAMIN B-12) TABLET PO SCH (18:12)
--- NOTE | 2020-01-01 18:22 | NUR ---
unit of blood started at this time. verified with helper animal laboratory and min mims rn at this time. see interventions. vss.
[2020-01-01] MEDS: morphine ER 15 MG (MS CONTIN) TAB PO SCH (20:08)
[2020-01-01] MEDS: LORazepam 0.5 MG (ATIVAN) TABLET PO SCH (20:08)
[2020-01-01] MEDS: meTOprolol TARTRATE 25 MG (LOPRESSOR) TABLET PO SCH (20:08)
[2020-01-01] MEDS ORDERED: LOPERAMIDE 2 MG (IMODIUM) TABLET PO PRN (20:30)
[2020-01-01] MEDS ORDERED: DOCUSATE SODIUM 100 MG (COLACE) CAP PO PRN (20:30)
[2020-01-01] MEDS ORDERED: CALCIUM CARBONATE 500 MG (TUMS) TAB.CHEW PO PRN (20:30)
[2020-01-01] MEDS ORDERED: ACETAMINOPHEN 500 MG TAB (TYLENOL) PO PRN (20:30)
[2020-01-01] MEDS ORDERED: ONDANSETRON 4 MG/2 ML (SDV) Z0FRAN IVP PRN (20:30)
[2020-01-01] MEDS ORDERED: diphenhydrAMINE 25 MG TAB (BENADRYL) PO PRN (20:30)
[2020-01-01] MEDS: 1/2 NS IV SOLUTION 1,000 ML IV SCH ×2 (20:51→22:32)
[2020-01-01] MEDS: SENNA W/DOCUSATE (SENOKOT S) TABLET PO SCH (21:30)
[2020-01-01] MEDS: CEFEPIME 1,000 MG/SWFI 10 ML IV PUSH IV SCH ×2 (22:28)
--- NOTE | 2020-01-01 23:18 | CONSULTATION REPORT ---
DATE OF SERVICE: 01/01/2020 The patient is admitted to room 406. PHYSICIAN REQUESTING CONSULTATION: Carmen Hines DO IMPRESSION: 1. Pancytopenia. 2. Diffuse large B-cell non-Hodgkin's lymphoma, germinal center type involving kidneys, lungs and causing renal failure at the time of diagnosis. 3. On chemotherapy with mini CHOP-R regimen with excellent response after three cycles. The patient completed fourth cycle on 12/25/2019. 4. History of renal failure due to lymphoma and was on hemodialysis until 12/26/2019. Her renal function improved into the near normal level and dialysis was discontinued. 5. Probable urinary tract infection/sepsis with mental status changes. 6. Hypercalcemia and dehydration. RECOMMENDATIONS: 1. Agree with broad spectrum antibiotic use. 2. Because of neutropenia and infection, we will start the patient on G-CSF 480 mcg subcutaneously daily until ANC is more than 10,000. 3. With regards to hypercalcemia and dehydration, hydrate the patient cautiously. 4. Because of significant and symptomatic anemia, transfuse 2 units of packed red blood cells and maintain it more than 8 grams per deciliter because of her age and cardiac status. 5. Episodes of atrial fibrillation, cardiology is following and trying rate control. 6. If the platelet counts drop less than 10,000, transfuse platelets to maintain more than 10,000. If any evidence of bleeding, transfuse to maintain at a higher level. Her overall prognosis is guarded, I will follow the patient with you. BRIEF HISTORY: The patient is a 69-year-old female diagnosed with diffuse large B-cell non-Hodgkin's lymphoma, germinal center type involving kidneys and causing acute renal failure. She was started on dialysis and biopsies of the mass were obtained. She was started on chemotherapy with mini CHOP-R regimen and has been resident at [facility]. She did develop neutropenic fever and sepsis following the first cycle of chemotherapy and was readmitted to [facility] for a prolonged period. She also developed pressure ulcers in both buttocks. Subsequently, she tolerated second and third cycles of chemotherapy better and a PET CT scan obtained after three cycles showed near complete resolution of the lymphoma. Her renal function was also improving to the point that the dialysis was discontinued on 12/26/2019. The patient was brought to the emergency room from the halfway because of altered mental status. She was found to have pancytopenia with worsening renal function and hypercalcemia. It was decided to admit the patient to the hospital for further evaluation and management. Medical oncology consultation was requested for concurrent care. PAST MEDICAL HISTORY: Significant for diffuse large B-cell non-Hodgkin's lymphoma involving the kidneys as mentioned above. She has history of hypertension for more than 16 years, chronic lung disease and previous tobacco use. Significant osteoarthritis requiring neck and low back surgery in the past. SURGICAL HISTORY: Other surgeries include tonsillectomy and adenoidectomy in childhood, appendectomy in childhood, tubal ligation, breast augmentation, abdominoplasty, C3-C7 fusion and L3-L5 fusion, arthroscopic left knee surgery and bilateral cataract surgery. SOCIAL HISTORY: The patient is and lives at a halfway in [place]. Previously, she lived by herself in [place]. She has no children. Her sister and nephew lives close by and helps her. 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 She has a 40- to 22-qhcc-vies history of tobacco use, but quit smoking 11 years ago. No significant alcohol or recreational drug use. FAMILY HISTORY: Significant for coronary artery disease and congestive heart failure in her father. Mother had diabetes mellitus and renal failure requiring dialysis. She also had coronary artery disease. Her brother at 49 years of age from probable lung cancer. Another brother at 27 years of age from colon cancer. Her sister has vasculitis. Rest of the family history is unremarkable. PHYSICAL EXAMINATION: GENERAL: Today showed an elderly female, somnolent and difficult to arouse. VITAL SIGNS: Temperature was 36.8 degree centigrade, pulse rate of 91, respirations 16, blood pressure 141/81 with oxygen saturation of 100% by mask. HEENT: Normocephalic with alopecia. Extraocular muscles intact, conjunctivae pale. Oral mucosa dry NECK: Supple, with no JVD. No cervical, supraclavicular or axillary lymphadenopathy palpable. CHEST: Symmetrical. LUNGS: With diminished breath sounds bilaterally without wheezes or rales. CARDIOVASCULAR: Regular with few missed beats. Rate was controlled. ABDOMEN: Soft, nontender with no hepatosplenomegaly or other masses palpable. EXTREMITIES: Showed no edema. NEUROLOGIC: Could not be completed as the patient was somnolent and not following commands appropriately. LABORATORY DATA: CBC done at the emergency room showed total white count of 0.2, hemoglobin 6.5, platelet count 17,000 with neutrophil count 0.1. Chemistry panel showed sodium level of 152. BUN was 51 and creatinine 1.36 with GFR 39 mL per minute. Nonfasting glucose was 144. Measured calcium was 9.6 and corrected calcium of 10.8. Liver function studies were normal except albumin level of 2.5. Urinalysis showed 1+ protein, 2+ leukocyte esterase, 10 to 25 WBCs and moderate bacteria with large amount of yeast. Culture is pending. Chest x-ray showed poor inspiration effort. Stable, chronic infiltrate in the left perihilar region. Improved aeration of right upper lobe compared to the previous study from 10/16/2019. Underlying central vascular congestion. Thank you for allowing me to participate in this patient's care. I will follow the patient with you and make appropriate recommendations. Job ID: [id number] DocumentID: [id number] Dictated Date: 01/01/2020 17:49:33 [employer] Gr[employer] T[employer] Date: 01/01/2020 23:17:42 Dictated By: KEITH RODRIGUEZ MD
[2020-01-02] VITALS (7 sets, daily range): BP systolic 100–151; BP diastolic 55–91
[2020-01-02] MEDS: 1/2 NS IV SOLUTION 1,000 ML IV SCH ×3 (00:50→17:26)
[2020-01-02] MEDS: MELATONIN 3 MG TABLET PO PRN ×2 (01:11→20:00)
[2020-01-02] MEDS: RT-ALBUTEROL/IPRATROPIUM 3 ML (DUONEB) VIAL INH SCH ×4 (04:15→19:17)
[2020-01-02 05:02] LABS: BASOPHILS % (AUTO) 0 % (0-10); EOSINOPHILS % (AUTO) 13 % (0-10); HEMATOCRIT 28 % (35-52); HEMOGLOBIN 9.3 g/dL (11.5-16.0); LYMPHOCYTES # (AUTO) 0.1 10^3/uL (1.0-4.0); LYMPHOCYTES % (AUTO) 31 % (12-44); MEAN CORPUSCULAR HEMOGLOBIN 30 pg (25-34); MEAN CORPUSCULAR HGB CONC 33 g/dL (32-36); MEAN CORPUSCULAR VOLUME 91 fL (80-99); MONOCYTES % (AUTO) 25 % (0-12); NEUTROPHILS # (AUTO) 0.1 10^3/uL (1.8-7.8); NEUTROPHILS % (AUTO) 31 % (42-75)
[2020-01-02 05:08] LABS: PLATELET COUNT 16 10^3/uL (130-400); WHITE BLOOD COUNT 0.2 10^3/uL (4.3-11.0)
[2020-01-02 05:35] LABS: ALBUMIN 2.1 GM/DL (3.2-4.5); BILIRUBIN,TOTAL 0.6 MG/DL (0.1-1.0); CALCIUM 8.7 MG/DL (8.5-10.1); CREATININE SERUM 1.17 MG/DL (0.60-1.30); POTASSIUM 3.4 MMOL/L (3.6-5.0); TOTAL PROTEIN 4.1 GM/DL (6.4-8.2)
[2020-01-02] MEDS: MULTIVIT W/MINERALS TAB (THERAGRAN M) PO SCH (06:10)
[2020-01-02] MEDS: CEFEPIME 1,000 MG/SWFI 10 ML IV PUSH IV SCH ×6 (06:11→21:01)
[2020-01-02] MEDS ORDERED: TBO-FILGRASTIM 480 MCG/0.8 ML (GRANIX) SQ SCH (09:00)
[2020-01-02] MEDS ORDERED: NON-FORMULARY MEDICATION 1 EA EA ([Folic Acid] 1 MG) PO SCH (09:00)
[2020-01-02] MEDS ORDERED: [UNRECOGNIZED DRUG - REMARK] PO SCH (09:00)
[2020-01-02] MEDS: meTOprolol TARTRATE 25 MG (LOPRESSOR) TABLET PO SCH ×2 (09:28→20:01)
[2020-01-02] MEDS: CALCIUM ACETATE 667 MG CAP (PHOSLO) PO SCH ×2 (09:29→17:23)
[2020-01-02] MEDS: FOLIC ACID 1 MG TAB PO SCH (09:29)
[2020-01-02] MEDS: morphine ER 15 MG (MS CONTIN) TAB PO SCH ×2 (09:29→20:01)
[2020-01-02] MEDS: ACYCLOVIR 400 MG TABLET (ZOVIRAX) PO SCH ×2 (09:31→17:26)
[2020-01-02] MEDS: CYANOCOBALAMIN 1,000 MCG (VITAMIN B-12) TABLET PO SCH ×2 (09:32→17:24)
[2020-01-02] MEDS: TBO-FILGRASTIM 480 MCG/0.8 ML (GRANIX) SQ SCH (09:34)
[2020-01-02] MEDS: MIDODRINE 10 MG (PROAMATINE) TAB PO SCH ×3 (09:39→17:24)
[2020-01-02] MEDS: SENNA W/DOCUSATE (SENOKOT S) TABLET PO SCH ×2 (09:39→20:01)
--- NOTE | 2020-01-02 10:21 | Cardiology Progress Note ---
Subjective Date Seen by Provider: Jan 02, 2020 Time Seen by Provider: 08:00 Subjective/Events-last exam Patient is laying down in bed, lethargic Review of Systems General: Other (lethargic, moaning in bed, unable to provide review of systems) Focused Exam Lactate Level 01/01/20 10:30: Lactic Acid Level 1.22 Objective-Cardiology Exam Last Set of Vital Signs Vital Signs Capillary Refill : Less Than 3 SecondsLess Than 3 Seconds I&O Intake and Output 01/02/20 00:00 Intake Total 300 ml Output Total 150 ml Balance 150 ml Intake Oral 200 ml Other 100 ml Output Urine Total 150 ml Daily Weight Change Unsure/Unresponsive Unsure General: Alert, Moderate Distress HEENT: Atraumatic, PERRLA Neck: Supple Lungs: Clear to Auscultation, Normal Air Movement Heart: Normal S1, Normal S2 Abdomen: Normal Bowel Sounds Extremities: No Clubbing Skin: No Rashes Neuro: Other (not following commands or responding appropriately) Psych/Mental Status: Other (lethargic) Results Lab Laboratory Tests 01/01/20 10:30 01/02/20 03:56 A/P-Cardiology Admission Diagnosis Atrial fibrillation UTI Pancytopenia NonHodgkins Assessment/Plan Paroxysmal atrial fibrillation returned to sinus rhythm after IV fluid and one dose of IV beta blockers. And tinea to monitor [id number] score of 2, yearly risk of stroke without OAC is 2.2%. Unable to tolerate OAC at this time secondary to anemia and thrombocytopenia. UTI- management per medical services. Pancytopenia- management per medical services, continue to monitor. ESRD, on hemodialysis, reported improvement of kidney function and currently not requiring dialysis at this time. NonHodgkins lymphoma, received chemotherapy, followed and managed by Dr. Zhong Neutropenic fever, receiving antibiotic, septic, managed by primary care team Clinical Quality Measures DVT/VTE Risk/Contraindication: Risk Factor Score Per Nursin RFS Level Per Nursing on Admit: 4+=Very High ANGELIA FARRELL MD Jan 02, 2020 10:21
--- NOTE | 2020-01-02 11:55 | Progress Note - Hospitalist ---
NANCY MERIDA MED STUDENT 01/02/20 1155: Subjective HPI/CC On Admission Date Seen by Provider: Jan 02, 2020 Time Seen by Provider: 09:20 CC: Weakness HPI: This is a 69yoWF [facility] patient who resides at [facility] who has a PMH of lymphoma who just recently stopped dialysis since her renal function had returned since she was responding to chemotherapy who presented to the ER with weakness, found to have Sodium level 152, Creatinine 1.3 and Hgb of 6. Dr. Zhong was consulted and she did have neutropenia so she was given Neupogen for severe neutropenia. She was also given antibiotics for a UTI at this current time Pt is very lethargic but oriented X3. Dr. Zhong has been consulted. Subjective/Events-last exam Patient continues to state that she feels very weak but otherwise no complaints at this time, laying on her side, able to answer questions, in no acute distress but very lethargic. Denies CP, palpitations, SOB, wheezing, abdominal pain, vomiting or muscle/joint aches. Focused Exam Lactate Level 01/01/20 10:30: Lactic Acid Level 1.22 Objective Exam Vital Signs Vital Signs Date Time Temp Pulse Resp B/P (MAP) Pulse Ox O2 Delivery O2 Flow Rate FiO2 01/02/20 10:32 97 01/02/20 08:00 37.3 22 151/71 (97) 100 OxyMask 5.00 Capillary Refill : Less Than 3 SecondsLess Than 3 Seconds General Appearance: Chronically ill, Mild Distress HEENT: No Scleral Icterus (L), No Scleral Icterus (R) Neck: Normal Inspection, Non Tender Respiratory: Chest Non Tender, Lungs Clear, Normal Breath Sounds, No Accessory Muscle Use, No Respiratory Distress Cardiovascular: Regular Rate, Rhythm, No Murmur Gastrointestinal: No Pulsatile Mass, Non Tender, Soft Extremity: Normal Inspection, Non Tender, No Pedal Edema Neurologic/Psychiatric: Alert; No Facial Droop; Other (lethargic) Skin: Warm/Dry; No Jaundice Results/Procedures Lab Laboratory Tests 01/02/20 03:56 Patient resulted labs reviewed. Assessment/Plan Assessment and Plan Assess & Plan/Chief Complaint Pancytopenia -recommendations per Dr. Choudhary: -start on G-CSF until ANC is above 10,000 -transfuse platelets to maintain count above 10,000 and PRN for any bleeding UTI -urine culture -Cefipime ordered Afib -resolved with IVF and BB -continued monitoring by cardiology Anemia -transfused 2 units PRBC ESRD -s/p dialysis (concluded on 12/23) -currently does not require dialysis -monitor labs other management -replenish vitamins as needed -patient does not have her dentures, switch to soft diet chronic -Weakness -Wasting -Diffuse B-cell Lymphoma Clinical Quality Measures DVT/VTE Risk/Contraindication: Risk Factor Score Per Nursin RFS Level Per Nursing on Admit: 4+=Very High CARMEN PRAJAPATI DO 01/02/202128: Subjective Subjective/Events-last exam Pt about the same A bit improved Soft diet will be initiated because she doesnt have any dentures WC was 0.2, Hgb 9.3, and Platelet count 16,000 Potassium 3.4 Overall prognosis guarded considering shes a intermediate patient and history of lymphoma just completed chemotherapy and was just on dialysis Review of Systems General: Fatigue, Malaise Objective Exam General Appearance: No Apparent Distress, WD/WN, Chronically ill Respiratory: Lungs Clear Cardiovascular: Regular Rate, Rhythm Assessment/Plan Assessment and Plan Assess & Plan/Chief Complaint Change diet Monitor labs Transfuse Supervisory-Addendum Brief Verification & Attestation Participated in pt care: history, MDM, physical Personally performed: exam, history, MDM, supervision of care Care discussed with: Medical Student Procedures: n/a Results interpretation: Verified all documentation Verification and Attestation of Medical Student E/M Service A medical student performed and documented this service in my presence. I reviewed and verified all information documented by the medical student and made modifications to such information, when appropriate. I personally performed the physical exam and medical decision making. Carmen Prajapati, Jan 02, 2020,21:27 NANCY MERIDA MED STUDENT Jan 02, 2020 11:55 CARMEN PRAJAPATI DO Jan 02, 2020 21:29
--- NOTE | 2020-01-02 11:57 | NUR ---
"RD ASSESSMENT PMHx: HTN; ESRD; lymphoma; PT INTERACTION: Pt was awake and pleasant during dietary consult for MST score. Pt states current appetite is so-so, and has been this way for some time. Note pt has been refusing meals, per chart review. Pt states following a regular diet at home, and has no issues with chewing/swallowing food. Note pt has no teeth, per visual assessment. Pt states some recent issues with constipation and diarrhea. Note last BM was 01/01, and pt currently on bowel regimen of senna BID, per chart review. Pt states recent wt changes, but these are due to recent dialysis treatments. Note recent 26# wt loss x3mon. Unsure at this time if wt loss is significant d/t actual weight loss or fluid losses from hemodialysis. Upon visual assessment, pt appears adequately nourished with no visible signs of muscle/fat wasting and a BMI of 22.5 (Normal BMI, but low-normal for age). Note at this time, it is difficult to determine if pt meets criteria for malnutrition, per ASPEN guidelines. ABNORMAL NUTRITION-RELATED LAB VALUES LOW: K 3.4; Pro 4.1; alb 3.1; HDL 25; HIGH: BNU 51; glu 113 Est. kcal needs: 1500 kcal | 25 kcal/kg Est. Pro needs: 71 g Pro | 1.2 g Pro/kg PES STATEMENT: Inadequate oral intake (NI-2.1) related to loss of appetite | constipation | diarrhea as evidenced by pt interview | pt refusing meals INTERVENTION: Continue with current diet order of Regular diet, with modifier of [place]-Thick Liquids. Pt may benefit from swallow evaluation to determine ability to tolerate nutrition supplementation. Encouraged pt to eat when able. Will continue to follow and reassess as pt needs, intake, and status change. Yesenia Zaragoza, MS RD LD"
--- NOTE | 2020-01-02 17:28 | Progress Note ---
Standard Progress Note Progress Notes/Assess & Plan Date Seen by a Provider: Jan 02, 2020 Time Seen by a Provider: 17:21 Progress/Assessment & Plan 69-year-old female admitted to the hospital with mental status changes and found to have pancytopenia. She has history of diffuse large B cell non-Hodgkin's lymphoma and is on treatment with Mini CHOPR regimen and took the fourth cycle last week. Restaging PET/CT scan after 3 cycles showed a near complete response. She had involvement of kidneys with complete renal failure and was on dialysis until recently. Hemodialysis was discontinued approximately 10 days ago. Port blood culture done at the time of admission is growing Escherichia coli with sensitivity pending. Peripheral blood culture with no growth. Patient is on cefepime. She has been afebrile. She is awake this afternoon and answering simple questions appropriately. She has significant fatigue part of which is baseline for her. Lab work done this morning was noted. Hemoglobin is 9.3 after transfusion. Total WBC is 0.1 and platelet count 16,000. Continue G- CSF 480 g subcutaneous daily until ANC more than or equal to 10,000. Maintain platelet count more than 10,000 if not bleeding. If any evidence of bleeding, transfuse platelets to maintain at a higher baseline. Continue treatment of Escherichia coli sepsis. Repeat cultures from port and if still positive, may need to replace this. I am out of the office this weekend but call or text for problems. Focused Exam Lactate Level 01/01/20 10:30: Lactic Acid Level 1.22 KEITH RODRIGUEZ Jan 02, 2020 17:28
[2020-01-02] MEDS: LORazepam 0.5 MG (ATIVAN) TABLET PO SCH (20:01)
[2020-01-03] VITALS (7 sets, daily range): BP systolic 102–135; BP diastolic 52–77
[2020-01-03] MEDS: 1/2 NS IV SOLUTION 1,000 ML IV SCH ×4 (00:25→20:57)
[2020-01-03] MEDS: RT-ALBUTEROL/IPRATROPIUM 3 ML (DUONEB) VIAL INH SCH ×4 (01:44→18:58)
[2020-01-03] MEDS: CEFEPIME 1,000 MG/SWFI 10 ML IV PUSH IV SCH ×6 (05:45→17:49)
[2020-01-03] MEDS: MULTIVIT W/MINERALS TAB (THERAGRAN M) PO SCH (05:45)
[2020-01-03 06:08] LABS: BASOPHILS % (AUTO) 0 % (0-10); EOSINOPHILS % (AUTO) 12 % (0-10); HEMATOCRIT 28 % (35-52); HEMOGLOBIN 9.1 g/dL (11.5-16.0); LYMPHOCYTES % (AUTO) 9 % (12-44); MEAN CORPUSCULAR HEMOGLOBIN 30 pg (25-34); MEAN CORPUSCULAR HGB CONC 33 g/dL (32-36); MEAN CORPUSCULAR VOLUME 91 fL (80-99); MONOCYTES # (AUTO) 0.1 10^3/uL (0.0-1.0); MONOCYTES % (AUTO) 18 % (0-12); NEUTROPHILS # (AUTO) 0.2 10^3/uL (1.8-7.8); NEUTROPHILS % (AUTO) 61 % (42-75)
[2020-01-03 06:12] LABS: PLATELET COUNT 9 10^3/uL (130-400)
[2020-01-03 06:13] LABS: WHITE BLOOD COUNT 0.3 10^3/uL (4.3-11.0)
[2020-01-03 06:21] LABS: ALBUMIN 1.9 GM/DL (3.2-4.5)
[2020-01-03 06:23] LABS: CALCIUM 8.3 MG/DL (8.5-10.1)
[2020-01-03 06:24] LABS: GLUCOSE 70 MG/DL (70-105); TOTAL PROTEIN 3.8 GM/DL (6.4-8.2)
[2020-01-03 06:25] LABS: CARBON DIOXIDE 24 MMOL/L (21-32)
[2020-01-03 06:26] LABS: BILIRUBIN,TOTAL 1.2 MG/DL (0.1-1.0)
[2020-01-03 06:27] LABS: ALKALINE PHOSPHATASE 99 U/L (40-136)
[2020-01-03 06:28] LABS: CREATININE SERUM 0.91 MG/DL (0.60-1.30); GFR ESTIMATED > 60
[2020-01-03 06:29] LABS: BUN/CREATININE RATIO 49
[2020-01-03 06:30] LABS: ALANINE AMINOTRANSFERASE 48 U/L (0-55)
[2020-01-03 07:02] LABS: CHLORIDE 106 MMOL/L (98-107); SODIUM 138 MMOL/L (135-145)
[2020-01-03] MEDS: MIDODRINE 10 MG (PROAMATINE) TAB PO SCH ×3 (09:18→17:49)
[2020-01-03] MEDS: FOLIC ACID 1 MG TAB PO SCH (09:18)
[2020-01-03] MEDS: morphine ER 15 MG (MS CONTIN) TAB PO SCH ×2 (09:18→20:55)
[2020-01-03] MEDS: CALCIUM ACETATE 667 MG CAP (PHOSLO) PO SCH ×2 (09:19→17:50)
[2020-01-03] MEDS: CYANOCOBALAMIN 1,000 MCG (VITAMIN B-12) TABLET PO SCH ×2 (09:19→17:49)
[2020-01-03] MEDS: ACYCLOVIR 400 MG TABLET (ZOVIRAX) PO SCH ×2 (09:19→18:46)
[2020-01-03] MEDS: meTOprolol TARTRATE 25 MG (LOPRESSOR) TABLET PO SCH ×2 (09:19→20:55)
[2020-01-03] MEDS: TBO-FILGRASTIM 480 MCG/0.8 ML (GRANIX) SQ SCH (09:21)
[2020-01-03] MEDS: SENNA W/DOCUSATE (SENOKOT S) TABLET PO SCH ×2 (09:22→21:05)
--- NOTE | 2020-01-03 13:35 | Cardiology Progress Note ---
Subjective Date Seen by Provider: Jan 03, 2020 Time Seen by Provider: 13:33 Subjective/Events-last exam Patient is laying down in bed, more awake today, still lethargic. No new complaint Focused Exam Lactate Level 01/01/20 10:30: Lactic Acid Level 1.22 Objective-Cardiology Exam Last Set of Vital Signs Vital Signs 01/03/20 01/03/20 11:32 13:00 Temp 36.9 Pulse 67 Resp 20 B/P (MAP) 123/59 (80) Pulse Ox 100 O2 Delivery OxyMask O2 Flow Rate 3.50 Capillary Refill : Less Than 3 SecondsLess Than 3 Seconds I&O Intake and Output 01/03/20 00:00 Intake Total 3820 ml Output Total 575 ml Balance 3245 ml Intake Oral 790 ml IV Total 3030 ml Output Urine Total 575 ml # Bowel Movements 5 General: Alert, Moderate Distress HEENT: Atraumatic, PERRLA Neck: Supple Lungs: Clear to Auscultation, Normal Air Movement Heart: Normal S1, Normal S2 Abdomen: Normal Bowel Sounds Extremities: No Clubbing Skin: No Rashes Neuro: Other (lethargic, following commands.) Psych/Mental Status: Other (depressed mood) Results Lab Laboratory Tests 01/03/20 05:45 A/P-Cardiology Admission Diagnosis Atrial fibrillation UTI Pancytopenia NonHodgkins Assessment/Plan Paroxysmal atrial fibrillation returned to sinus rhythm after IV fluid and one dose of IV beta blockers. Continue to monitor [id number] score of 2, yearly risk of stroke without OAC is 2.2%. Unable to tolerate OAC at this time secondary to anemia and thrombocytopenia. UTI- management per medical services. Pancytopenia- management per medical services, continue to monitor. ESRD, on hemodialysis, reported improvement of kidney function and currently not requiring dialysis at this time. NonHodgkins lymphoma, received chemotherapy, followed and managed by Dr. Zhong Neutropenic fever, receiving antibiotic, septic, managed by primary care team Blood culture was positive from the port for G negative rods, peripheral blood culture was negative, patient is on cefepime, managed by primary care team Clinical Quality Measures DVT/VTE Risk/Contraindication: Risk Factor Score Per Nursin RFS Level Per Nursing on Admit: 4+=Very High ANGELIA FARRELL MD Jan 03, 2020 13:35
--- NOTE | 2020-01-03 13:35 | Progress Note - Hospitalist ---
NANCY MERIDA MED STUDENT 01/03/20 1335: Subjective HPI/CC On Admission CC: Weakness HPI: This is a 69yoWF [facility] patient who resides at [facility] who has a PMH of lymphoma who just recently stopped dialysis since her renal function had ret urned since she was responding to chemotherapy who presented to the ER with weakness, found to have Sodium level 152, Creatinine 1.3 [address] Hgb of 6[address] Zhong was consulted and she did have neutropenia so she was given Neupogen for severe neutropenia. She was also given antibiotics for a UTI at this current time Pt is very lethargic but oriented X3. Dr. Zhong has been consulted. Subjective/Events-last exam Patient is laying down in her room comfortably, though still weak. She is confused, unable to answer questions which her nurse says is normal for her in the morning. Focused Exam Lactate Level 01/01/20 10:30: Lactic Acid Level 1.22 Objective Exam Vital Signs Vital Signs Date Time Temp Pulse Resp B/P (MAP) Pulse Ox O2 Delivery O2 Flow Rate FiO2 01/03/20 13:00 67 01/03/20 11:32 36.9 20 123/59 (80) 100 OxyMask 3.50 Capillary Refill : Less Than 3 SecondsLess Than 3 Seconds General Appearance: No Apparent Distress, Chronically ill HEENT: No Scleral Icterus (L), No Scleral Icterus (R) Neck: Normal Inspection, Non Tender Respiratory: Normal Breath Sounds, No Accessory Muscle Use, No Respiratory Distress Cardiovascular: Regular Rate, Rhythm, No Murmur, Normal Peripheral Pulses Gastrointestinal: No Organomegaly, No Pulsatile Mass, Non Tender Extremity: Normal Inspection, Non Tender, No Calf Tenderness Neurologic/Psychiatric: Alert, Disoriented, Other (lethargic) Skin: No Ecchymosis; Pallor; No Rash Results/Procedures Lab Laboratory Tests 01/03/20 05:45 Patient resulted labs reviewed. Assessment/Plan Assessment and Plan Assess & Plan/Chief Complaint Pancytopenia -recommendations per Dr. Choudhary: -start on G-CSF until ANC is above 10,000 -currently thrombocytopenic at less than 10,000 , consider administering platelets per Dr. Choudhary UTI -urine culture -continue Cefipime Afib -resolved with IVF and BB -continued monitoring by cardiology Anemia -transfused 2 units PRBC -resolved, continue to monitor ESRD -s/p dialysis (concluded on 12/23) -currently does not require dialysis -monitor labs other management -replenish vitamins as needed chronic -Weakness -Wasting -Diffuse B-cell Lymphoma Clinical Quality Measures DVT/VTE Risk/Contraindication: Risk Factor Score Per Nursin RFS Level Per Nursing on Admit: 4+=Very High CARMEN PRAJAPATI DO 01/03/202122: Subjective HPI/CC On Admission Date Seen by Provider: Jan 03, 2020 Time Seen by Provider: 11:00 Subjective/Events-last exam Pt somewhat unresponsive Overall prognosis extremely poor DNR Monitoring closely Review of Systems General: Fatigue, Malaise Objective Exam General Appearance: No Apparent Distress, Chronically ill, Cachetic Respiratory: Lungs Clear Cardiovascular: Regular Rate, Rhythm Neurologic/Psychiatric: Disoriented, Other (lethargic) Assessment/Plan Assessment and Plan Assess & Plan/Chief Complaint Assessment: Sepsis UTI Pancytopenia Poor prognosis DNR Diagnosis/Problems Diagnosis/Problems (1) Urinary tract infection Status: Acute (2) Pancytopenia Status: Acute (3) General weakness Status: Acute (4) Wasting generalized Status: Acute Supervisory-Addendum Brief Verification & Attestation Participated in pt care: history, MDM, physical Personally performed: exam, history, MDM, supervision of care Care discussed with: Medical Student Procedures: n/a Results interpretation: Verified all documentation Verification and Attestation of Medical Student E/M Service A medical student performed and documented this service in my presence. I reviewed and verified all information documented by the medical student and made modifications to such information, when appropriate. I personally performed the physical exam and medical decision making. Carmen Prajapati, Jan 03, 2020,21:23 NANCY MERIDA MED STUDENT Jan 03, 2020 13:35 CARMEN PRAJAPATI DO Jan 03, 2020 21:23
--- NOTE | 2020-01-03 13:38 | NUR ---
Pt was sleeping but discussed continued care plans with her sister Ana who would like pt to return to [facility] when ready for discharge. will follow and assist.
--- NOTE | 2020-01-03 15:26 | Progress Note ---
Progress Note Assessment/Plan Date Seen by Provider: Jan 03, 2020 Time Seen by Provider: 15:25 Events since last exam No new issues. Still lethargic but confusion better than before per report. Blood counts slightly better today. Afebrile. Assessment/Plan 69-year-old female admitted to the hospital with mental status changes and found to have pancytopenia. She has history of diffuse large B cell non-Hodgkin's lymphoma and is on treatment with Mini CHOPR regimen and took the fourth cycle last week. Restaging PET/CT scan after 3 cycles showed a near complete response. She had involvement of kidneys with complete renal failure and was on dialysis until recently. Hemodialysis was discontinued approximately 10 days ago. Port blood culture done at the time of admission is growing Escherichia coli with sensitivity pending. Peripheral blood culture with no growth. Patient is on cefepime. She has been afebrile. Confusion better. 1. -Diffuse B-cell Lymphoma, s/p chemotherapy a week ago and now pancytopenia : -Continue on G-CSF 480ug daily until ANC is above 10,[address] Choudhary. -Plt 9 today. Please give a pack of Plt today to maintain platelet count more than 10,000 if not bleeding. If any evidence of bleeding, transfuse platelets to maintain at a higher baseline. 2. UTI: Continue treatment of Escherichia coli sepsis. f/u sensitivities. 3. ? line/port infection: If spike fever, repeat cultures from port and if still positive, may need to replace this per Dr. Choudhary 4. ESRD -s/p dialysis (concluded on 12/23) -currently does not require dialysis -monitor labs 5. General weakness, wasting and confusion. Better. Vitals Last set of Vitals Signs Vital Signs Date Time Temp Pulse Resp B/P (MAP) Pulse Ox O2 Delivery O2 Flow Rate FiO2 01/03/20 14:52 97 OxyMask 4.00 01/03/20 13:00 67 01/03/20 11:32 36.9 20 123/59 (80) I&O I&O Intake and Output 01/03/20 00:00 Intake Total 3820 ml Output Total 575 ml Balance 3245 ml Intake Oral 790 ml IV Total 3030 ml Output Urine Total 575 ml # Bowel Movements 5 Labs Laboratory Tests 01/03/20 05:45 Laboratory Tests 01/03/20 05:45: White Blood Count 0.3*L, Red Blood Count 3.07L, Hemoglobin 9.1L, Hematocrit 28L, Mean Corpuscular Volume 91, Mean Corpuscular Hemoglobin 30, Mean Corpuscular Hemoglobin Concent 33, Red Cell Distribution Width 18.4H, Platelet Count 9*L, Mean Platelet Volume , Immature Granulocyte % (Auto) 0, Neutrophils (%) (Auto) 61, Lymphocytes (%) (Auto) 9L, Monocytes (%) (Auto) 18H, Eosinophils (%) (Auto) 12H, Basophils (%) (Auto) 0, Neutrophils # (Auto) 0.2L, Lymphocytes # (Auto) 0.0L, Monocytes # (Auto) 0.1, Eosinophils # (Auto) 0.0, Basophils # (Auto) 0.0, Immature Granulocyte # (Auto) 0.0, Sodium Level 138, Potassium Level 3.0L, Chloride Level 106, Carbon Dioxide Level 24, Anion Gap 8, Blood Urea Nitrogen 45H, Creatinine 0.91, Estimat Glomerular Filtration Rate > 60, BUN/Creatinine Ratio 49, Glucose Level 70, Calcium Level 8.3L, Corrected Calcium 10.0, Total Bilirubin 1.2H, Aspartate Amino Transf (AST/SGOT) 42H, Alanine Aminotransferase (ALT/SGPT) 48, Alkaline Phosphatase 99, Total Protein 3.8L, Albumin 1.9L Microbiology 01/01/20 Blood Culture - Preliminary, Resulted No growth 01/01/20 Urine Culture - Preliminary, Resulted Escherichia species Proteus mirabilis Focused Exam Lactate Level 01/01/20 10:30: Lactic Acid Level 1.22 Clinical Quality Measures DVT/VTE Risk/Contraindication: Risk Factor Score Per Nursin RFS Level Per Nursing on Admit: 4+=Very High HUDSON CLARKE MD Jan 03, 2020 15:26
[2020-01-03] MEDS ORDERED: KCL 20 MEQ TAB (K-DUR) PO NR (17:30)
[2020-01-03] MEDS: LORazepam 0.5 MG (ATIVAN) TABLET PO SCH (20:55)
[2020-01-03] MEDS ORDERED: NS IV 500 ML 500 ML ONE (21:29)
[2020-01-04 00:28] VITALS: BP 117/55
[2020-01-04] MEDS: CEFEPIME 1,000 MG/SWFI 10 ML IV PUSH IV SCH ×8 (00:44→17:15)
[2020-01-04] MEDS: RT-ALBUTEROL/IPRATROPIUM 3 ML (DUONEB) VIAL INH SCH ×4 (02:57→19:57)
[2020-01-04 03:54] VITALS: BP 135/67
[2020-01-04 05:20] LABS: BASOPHILS % (AUTO) 0 % (0-10); EOSINOPHILS % (AUTO) 6 % (0-10); HEMATOCRIT 26 % (35-52); HEMOGLOBIN 8.6 g/dL (11.5-16.0); LYMPHOCYTES % (AUTO) 5 % (12-44); MEAN CORPUSCULAR HEMOGLOBIN 30 pg (25-34); MEAN CORPUSCULAR HGB CONC 33 g/dL (32-36); MEAN CORPUSCULAR VOLUME 91 fL (80-99); MEAN PLATELET VOLUME 10.5 fL (9.0-12.2); MONOCYTES # (AUTO) 0.1 10^3/uL (0.0-1.0); MONOCYTES % (AUTO) 11 % (0-12); NEUTROPHILS # (AUTO) 0.5 10^3/uL (1.8-7.8); NEUTROPHILS % (AUTO) 78 % (42-75)
[2020-01-04 05:23] LABS: PLATELET COUNT 30 10^3/uL (130-400)
[2020-01-04 05:24] LABS: WHITE BLOOD COUNT 0.6 10^3/uL (4.3-11.0)
[2020-01-04 05:39] LABS: ALBUMIN 1.9 GM/DL (3.2-4.5); CHLORIDE 106 MMOL/L (98-107); POTASSIUM 3.1 MMOL/L (3.6-5.0); SODIUM 135 MMOL/L (135-145)
[2020-01-04 05:40] LABS: CALCIUM 8.6 MG/DL (8.5-10.1)
[2020-01-04 05:41] LABS: GLUCOSE 65 MG/DL (70-105); TOTAL PROTEIN 3.9 GM/DL (6.4-8.2)
[2020-01-04 05:42] LABS: CARBON DIOXIDE 22 MMOL/L (21-32)
[2020-01-04 05:43] LABS: BILIRUBIN,TOTAL 0.7 MG/DL (0.1-1.0)
[2020-01-04 05:45] LABS: ALKALINE PHOSPHATASE 79 U/L (40-136); CREATININE SERUM 0.87 MG/DL (0.60-1.30); GFR ESTIMATED > 60
[2020-01-04 05:46] LABS: BUN/CREATININE RATIO 46
[2020-01-04 05:48] LABS: ALANINE AMINOTRANSFERASE 32 U/L (0-55)
[2020-01-04] MEDS: 1/2 NS IV SOLUTION 1,000 ML IV SCH ×4 (06:09→17:41)
[2020-01-04] MEDS: KCL 20 MEQ TAB (K-DUR) PO SCH (06:12)
[2020-01-04] MEDS: MULTIVIT W/MINERALS TAB (THERAGRAN M) PO SCH (06:12)
[2020-01-04] MEDS: MIDODRINE 10 MG (PROAMATINE) TAB PO SCH ×3 (08:29→17:14)
[2020-01-04] MEDS: CYANOCOBALAMIN 1,000 MCG (VITAMIN B-12) TABLET PO SCH ×2 (08:29→17:15)
[2020-01-04] MEDS: CALCIUM ACETATE 667 MG CAP (PHOSLO) PO SCH ×2 (08:29→17:14)
[2020-01-04 08:30] VITALS: BP 104/57
[2020-01-04] MEDS: FOLIC ACID 1 MG TAB PO SCH (08:30)
[2020-01-04] MEDS: morphine ER 15 MG (MS CONTIN) TAB PO SCH ×2 (08:30→21:39)
[2020-01-04] MEDS: meTOprolol TARTRATE 25 MG (LOPRESSOR) TABLET PO SCH ×2 (08:30→21:40)
[2020-01-04] MEDS: ACYCLOVIR 400 MG TABLET (ZOVIRAX) PO SCH ×2 (08:30→17:15)
[2020-01-04] MEDS: HYDROcodone/APAP 5 MG/325 MG (LORTAB) TAB PO PRN ×2 (08:31→17:37)
[2020-01-04] MEDS: SENNA W/DOCUSATE (SENOKOT S) TABLET PO SCH ×2 (08:31→21:40)
--- NOTE | 2020-01-04 09:55 | Progress Note - Hospitalist ---
Subjective HPI/CC On Admission Date Seen by Provider: Jan 04, 2020 Time Seen by Provider: 09:00 CC: Weakness HPI: This is a 69yoWF [facility]C patient who resides at [facility] who has a PMH of lymphoma who just recently stopped dialysis since her renal function had returned since she was responding to chemotherapy who presented to the ER with weakness, found to have Sodium level 152, Creatinine 1.3 and Hgb of 6. Dr. Zhong was consulted and she did have neutropenia so she was given Neupogen for severe neutropenia. She was also given antibiotics for a UTI at this current time Pt is very lethargic but oriented X3. Dr. Zhong has been consulted. Subjective/Events-last exam patient is very somnolent this morning. She's not eating well. She's having some breakdown and redness of her buttocks and of her left heel. Platelet count is up to 30,000. Review of Systems Neurological: Weakness, Confusion Focused Exam Lactate Level Objective Exam Vital Signs Vital Signs Date Time Temp Pulse Resp B/P (MAP) Pulse Ox O2 Delivery O2 Flow Rate FiO2 01/04/20 15:41 36.5 72 18 98/56 (70) 98 Nasal Cannula 2.00 Capillary Refill : Less Than 3 SecondsLess Than 3 Seconds General Appearance: Chronically ill HEENT: Pale Conjunctivae (R) Neck: Limited Range of Motion Respiratory: Lungs Clear, Normal Breath Sounds, No Accessory Muscle Use, No Respiratory Distress Cardiovascular: Regular Rate, Rhythm, No Gallop, Extra Beats Gastrointestinal: Normal Bowel Sounds, Soft Rectal: Deferred Skin: Pallor Lymphatic: No Adenopathy Results/Procedures Lab Laboratory Tests 01/04/20 05:02 Patient resulted labs reviewed. Assessment/Plan Assessment and Plan Assess & Plan/Chief Complaint pancytopenia secondary to chemotherapy and diffuse large B-cell lymphoma. Platelet count is 30,000 today with a white count 600 Protein calorie malnutrition with an albumin of 1.9 severe UTI on cefepime Weakness Patient is DO NOT RESUSCITATE Clinical Quality Measures DVT/VTE Risk/Contraindication: Risk Factor Score Per Nursin RFS Level Per Nursing on Admit: 4+=Very High JANET MCKINNEY MD Jan 04, 2020 09:55
--- NOTE | 2020-01-04 09:58 | Cardiology Progress Note ---
Subjective Date Seen by Provider: Jan 04, 2020 Time Seen by Provider: 09:56 Subjective/Events-last exam Patient is lethargic, sleeping, had few bites for breakfast. No change in status Review of Systems General: Other (unable to provide review of systems) Focused Exam Lactate Level 01/01/20 10:30: Lactic Acid Level 1.22 Objective-Cardiology Exam Last Set of Vital Signs Vital Signs 01/04/20 08:30 Temp 36.6 Pulse 76 Resp 12 B/P (MAP) 104/57 (73) Pulse Ox 97 O2 Delivery Nasal Cannula O2 Flow Rate 4.00 Capillary Refill : Less Than 3 SecondsLess Than 3 Seconds I&O Intake and Output 01/04/20 00:00 Intake Total 2410 ml Output Total 635 ml Balance 1775 ml Intake Oral 400 ml IV Total 2010 ml Output Urine Total 635 ml # Bowel Movements 4 General: Alert, Moderate Distress HEENT: Atraumatic, PERRLA Neck: Supple Lungs: Clear to Auscultation, Normal Air Movement Heart: Normal S1, Normal S2 Abdomen: Normal Bowel Sounds Extremities: No Clubbing Skin: No Rashes Neuro: Other (lethargic, following commands.) Psych/Mental Status: Other (lethargic) Results Lab Laboratory Tests 01/04/20 05:02 A/P-Cardiology Admission Diagnosis Atrial fibrillation UTI Pancytopenia NonHodgkins Assessment/Plan Paroxysmal atrial fibrillation returned to sinus rhythm after IV fluid and one d ose of IV beta blockers. Continue to monitor [id number] score of 2, yearly risk of stroke without OAC is 2.2%. Unable to tolerate OAC at this time secondary to anemia and thrombocytopenia. UTI- management per medical services. Hypokalemia, being replaced, managed by primary care team Pancytopenia- management per medical services, continue to monitor. ESRD, on hemodialysis, reported improvement of kidney function and currently not requiring dialysis at this time. NonHodgkins lymphoma, received chemotherapy, followed and managed by Dr. Zhong Neutropenic fever, receiving antibiotic, septic, managed by primary care team Blood culture was positive from the port for G negative rods, peripheral blood culture was negative, patient is on cefepime, managed by primary care team Clinical Quality Measures DVT/VTE Risk/Contraindication: Risk Factor Score Per Nursin RFS Level Per Nursing on Admit: 4+=Very High ANGELIA FARRELL MD Jan 04, 2020 09:58
[2020-01-04 11:10] VITALS: BP 114/60
[2020-01-04] MEDS: TBO-FILGRASTIM 480 MCG/0.8 ML (GRANIX) SQ SCH (12:04)
[2020-01-04 15:41] VITALS: BP 98/56
--- NOTE | 2020-01-04 17:38 | NUR ---
PT. UNABLE TO TAKE PO PAIN PILL, EVEN WHEN CRUSHED. PT. SPIT IT OUT.
[2020-01-04 19:28] VITALS: BP 96/53
[2020-01-04] MEDS: LORazepam 0.5 MG (ATIVAN) TABLET PO SCH (21:40)
[2020-01-04] MEDS: morphine INJ 4 MG/ML 1 ML (VIAL/SYRINGE) IVP PRN (22:26)
[2020-01-05] VITALS (11 sets, daily range): BP systolic 102–157; BP diastolic 50–88
[2020-01-05] MEDS: CEFEPIME 1,000 MG/SWFI 10 ML IV PUSH IV SCH ×8 (00:02→20:31)
[2020-01-05] MEDS: morphine INJ 4 MG/ML 1 ML (VIAL/SYRINGE) IVP PRN (02:24)
[2020-01-05] MEDS: 1/2 NS IV SOLUTION 1,000 ML IV SCH ×2 (02:48→10:00)
[2020-01-05] MEDS: RT-ALBUTEROL/IPRATROPIUM 3 ML (DUONEB) VIAL INH SCH ×4 (03:31→20:38)
[2020-01-05] MEDS: KCL 20 MEQ TAB (K-DUR) PO SCH (05:36)
[2020-01-05] MEDS: MULTIVIT W/MINERALS TAB (THERAGRAN M) PO SCH (05:36)
[2020-01-05] MEDS: morphine ER 15 MG (MS CONTIN) TAB PO SCH ×2 (08:38→20:34)
[2020-01-05] MEDS: MIDODRINE 10 MG (PROAMATINE) TAB PO SCH ×3 (08:52→18:05)
[2020-01-05] MEDS: TBO-FILGRASTIM 480 MCG/0.8 ML (GRANIX) SQ SCH (09:50)
[2020-01-05] MEDS: SENNA W/DOCUSATE (SENOKOT S) TABLET PO SCH ×2 (09:51→21:49)
[2020-01-05] MEDS: FOLIC ACID 1 MG TAB PO SCH (09:51)
[2020-01-05] MEDS: ACYCLOVIR 400 MG TABLET (ZOVIRAX) PO SCH ×2 (09:51→18:05)
[2020-01-05] MEDS: meTOprolol TARTRATE 25 MG (LOPRESSOR) TABLET PO SCH ×2 (09:51→21:49)
[2020-01-05] MEDS: CALCIUM ACETATE 667 MG CAP (PHOSLO) PO SCH ×2 (10:10→17:52)
[2020-01-05] MEDS: CYANOCOBALAMIN 1,000 MCG (VITAMIN B-12) TABLET PO SCH ×2 (10:10→18:05)
--- NOTE | 2020-01-05 10:15 | NUR ---
All patients PO medications were able to be crushed and administered on this day. Upon entering patient room this AM I asked her if she felt like she would be able to swallow her pills today and she stated "I will try." All medications were swallowed successfully. Patient tolerated well.
--- NOTE | 2020-01-05 10:40 | Progress Note - Hospitalist ---
Subjective HPI/CC On Admission Date Seen by Provider: Jan 05, 2020 Time Seen by Provider: 10:00 CC: Weakness HPI: This is a 69yoWF CHC patient who resides at [facility] who has a PMH of lymphoma who just recently stopped dialysis since her renal function had returned since she was responding to chemotherapy who presented to the ER with weakness, found to have Sodium level 152, Creatinine 1.3 and Hgb of 6. Dr. Zhong was consulted and she did have neutropenia so she was given Neupogen for severe neutropenia. She was also given antibiotics for a UTI at this current time Pt is very lethargic but oriented X3. Dr. Zhong has been consulted. Subjective/Events-last exam patient is sleeping this morning and poorly responsive. She has diffuse ecchymoses under her pale skin Objective Exam Vital Signs Vital Signs Date Time Temp Pulse Resp B/P (MAP) Pulse Ox O2 Delivery O2 Flow Rate FiO2 01/05/20 08:43 124/74 (91) 01/05/20 08:00 36.8 123 20 100 Nasal Cannula 2.00 Capillary Refill : Less Than 3 SecondsLess Than 3 Seconds General Appearance: Chronically ill HEENT: Other (dry oral mucosa) Neck: Limited Range of Motion Respiratory: Rhonci (scattered) Cardiovascular: Regular Rate, Rhythm Gastrointestinal: Normal Bowel Sounds, Soft Skin: Cool, Pallor Results/Procedures Lab Patient resulted labs reviewed. Assessment/Plan Assessment and Plan Assess & Plan/Chief Complaint pancytopenia secondary to chemotherapy and diffuse large B-cell lymphoma. labs pending today Protein calorie malnutrition with an albumin of 1.9 severe UTI on cefepime Weakness Patient is DO NOT RESUSCITATE consider discharge with hospice care Clinical Quality Measures DVT/VTE Risk/Contraindication: Risk Factor Score Per Nursin RFS Level Per Nursing on Admit: 4+=Very High JANET MCKINNEY MD Jan 05, 2020 10:40
--- NOTE | 2020-01-05 12:53 | Cardiology Progress Note ---
Subjective Date Seen by Provider: Jan 05, 2020 Time Seen by Provider: 12:52 Subjective/Events-last exam Patient is laying down in bed, not responding to verbal stimuli Review of Systems General: Other (unable to provide review of systems) Objective-Cardiology Exam Last Set of Vital Signs Vital Signs 01/05/20 01/05/20 08:00 08:43 Temp 36.8 Pulse 123 Resp 20 B/P (MAP) 124/74 (91) Pulse Ox 100 O2 Delivery Nasal Cannula O2 Flow Rate 2.00 Capillary Refill : Less Than 3 SecondsLess Than 3 Seconds I&O Intake and Output 01/05/20 00:00 Intake Total 350 ml Output Total 1450 ml Balance -1100 ml Intake Oral 350 ml Output Urine Total 1450 ml # Bowel Movements 2 General: Alert, Moderate Distress HEENT: Atraumatic, PERRLA Neck: Supple Lungs: Clear to Auscultation, Normal Air Movement Heart: Normal S1, Normal S2 Abdomen: Normal Bowel Sounds Extremities: No Clubbing Skin: No Rashes Neuro: Other (lethargic, following commands.) Psych/Mental Status: Other (lethargic) A/P-Cardiology Admission Diagnosis Atrial fibrillation UTI Pancytopenia NonHodgkins Assessment/Plan Paroxysmal atrial fibrillation returned to sinus rhythm after IV fluid and one dose of IV beta blockers. Continue to monitor [id number] score of 2, yearly risk of stroke without OAC is 2.2%. Unable to tolerate OAC at this time secondary to anemia and thrombocytopenia. UTI- management per medical services. Hypokalemia, being replaced, managed by primary care team Pancytopenia- management per medical services, continue to monitor. ESRD, on hemodialysis, reported improvement of kidney function and currently not requiring dialysis at this time. NonHodgkins lymphoma, received chemotherapy, followed and managed by Dr. Zhong Neutropenic fever, receiving antibiotic, septic, managed by primary care team Blood culture was positive from the port for G negative rods, peripheral blood culture was negative, patient is on cefepime, managed by primary care team X Overall poor prognosis, I discussed the management plan with Dr. Mitchell, at this point I will sign off. Please reconsult if needed Clinical Quality Measures DVT/VTE Risk/Contraindication: Risk Factor Score Per Nursin RFS Level Per Nursing on Admit: 4+=Very High ANGELIA FARRELL MD Jan 05, 2020 12:53
[2020-01-05 14:25] LABS: EOSINOPHILS # (AUTO) 0.1 10^3/uL (0.0-0.3); HEMOGLOBIN 8.3 g/dL (11.5-16.0)
[2020-01-05 14:27] LABS: BASOPHILS % (AUTO) 1 % (0-10); EOSINOPHILS % (AUTO) 3 % (0-10); HEMATOCRIT 25 % (35-52); LYMPHOCYTES # (AUTO) 0.1 10^3/uL (1.0-4.0); LYMPHOCYTES % (AUTO) 3 % (12-44); MEAN CORPUSCULAR HEMOGLOBIN 30 pg (25-34); MEAN CORPUSCULAR HGB CONC 33 g/dL (32-36); MEAN CORPUSCULAR VOLUME 92 fL (80-99); MONOCYTES # (AUTO) 0.3 10^3/uL (0.0-1.0); MONOCYTES % (AUTO) 10 % (0-12); NEUTROPHILS # (AUTO) 2.3 10^3/uL (1.8-7.8); NEUTROPHILS % (AUTO) 78 % (42-75); WHITE BLOOD COUNT 2.9 10^3/uL (4.3-11.0)
[2020-01-05 14:28] LABS: PLATELET COUNT 9 10^3/uL (130-400)
--- NOTE | 2020-01-05 14:30 | NUR ---
Светлана from lab informed me of a critical lab value platelets 9. This RN contact and informed Dr. Prado. Dr. Prado stated she would be at the hospital later today and would assess the patient and inform me how to move forward.
[2020-01-05 14:35] LABS: ALBUMIN 1.8 GM/DL (3.2-4.5)
[2020-01-05 14:36] LABS: POTASSIUM 3.5 MMOL/L (3.6-5.0)
[2020-01-05 14:37] LABS: CALCIUM 8.6 MG/DL (8.5-10.1)
[2020-01-05 14:38] LABS: TOTAL PROTEIN 3.8 GM/DL (6.4-8.2)
[2020-01-05 14:40] LABS: BILIRUBIN,TOTAL 0.6 MG/DL (0.1-1.0)
[2020-01-05 14:42] LABS: CREATININE SERUM 0.94 MG/DL (0.60-1.30)
[2020-01-05 14:45] LABS: MAGNESIUM 1.5 MG/DL (1.6-2.4)
--- NOTE | 2020-01-05 15:11 | NUR ---
was informed by Светлана in the lab that the patients blood sugar was 58. Spoon fed nectar lick apple juice at this time. Requested Taylor BLISS to get patient blood sugar and report back to me.
--- NOTE | 2020-01-05 15:25 | NUR ---
Patient Accucheck is 54. Notified Dr. Mitchell. She requested just to change her fluids to D5 1/2 NS.
--- NOTE | 2020-01-05 15:28 | Progress Note ---
Progress Note Assessment/Plan Date Seen by Provider: Jan 05, 2020 Time Seen by Provider: 15:27 Events since last exam Pt is better today No fever ANC up to 2.2 on Neupogen Plt 9 today General pitting edema. Assessment/Plan 69-year-old female admitted to the hospital with mental status changes and found to have pancytopenia. She has history of diffuse large B cell non-Hodgkin's lymphoma and is on treatment with Mini CHOPR regimen and took the fourth cycle last week. Restaging PET/CT scan after 3 cycles showed a near complete response. She had involvement of kidneys with complete renal failure and was on dialysis until recently. Hemodialysis was discontinued approximately 10 days ago. Port blood culture done at the time of admission is growing Escherichia coli with sensitivity to every tested antibiotics except Bactrim and Ampicillin. Peripheral blood culture with no growth. Patient is on cefepime. She has been afebrile. Confusion better and pt was up and eating this morning per nurse report. 1. -Diffuse B-cell Lymphoma, s/p chemotherapy a week ago and now pancytopenia : -Continue on G-CSF 480ug daily until ANC is above 10,[address] Choudhary. -Plt 9 today. Please give a pack of Plt today to maintain platelet count more than 10,000 if not bleeding. If any evidence of bleeding, transfuse platelets to maintain at a higher baseline. 2. UTI: Continue treatment of Escherichia coli sepsis. f/u sensitivities. 3. ? line/port infection: If spike fever, repeat cultures from port and if still positive, may need to replace this per Dr. Choudhary 4. ESRD -s/p dialysis (concluded on 12/23) -currently does not require dialysis -monitor labs 5. General weakness, wasting and confusion. Better. 6. General pitting edema, reduce IVF from 150cc/hr to 100cc/hr and maybe 75cc/hr tomorrow. Vitals Last set of Vitals Signs Vital Signs Date Time Temp Pulse Resp B/P (MAP) Pulse Ox O2 Delivery O2 Flow Rate FiO2 01/05/20 14:43 97 Nasal Cannula 2.00 01/05/20 13:00 71 01/05/20 08:43 124/74 (91) 01/05/20 08:00 36.8 20 I&O I&O Intake and Output 01/05/20 00:00 Intake Total 350 ml Output Total 1450 ml Balance -1100 ml Intake Oral 350 ml Output Urine Total 1450 ml # Bowel Movements 2 Labs Laboratory Tests 01/05/20 14:20 Laboratory Tests 01/05/20 14:20: White Blood Count 2.9L, Red Blood Count 2.74L, Hemoglobin 8.3L, Hematocrit 25L, Mean Corpuscular Volume 92, Mean Corpuscular Hemoglobin 30, Mean Corpuscular Hemoglobin Concent 33, Red Cell Distribution Width 18.1H, Platelet Count 9*L, Mean Platelet Volume , Immature Granulocyte % (Auto) 5, Neutrophils (%) (Auto) 78H, Lymphocytes (%) (Auto) 3L, Monocytes (%) (Auto) 10, Eosinophils (%) (Auto) 3, Basophils (%) (Auto) 1, Neutrophils # (Auto) 2.3, Lymphocytes # (Auto) 0.1L, Monocytes # (Auto) 0.3, Eosinophils # (Auto) 0.1, Basophils # (Auto) 0.0, Immature Granulocyte # (Auto) 0.1, Sodium Level 137, Potassium Level 3.5L, C hloride Level 109H, Carbon Dioxide Level 21, Anion Gap 7, Blood Urea Nitrogen 3 7H, Creatinine 0.94, Estimat Glomerular Filtration Rate 59, BUN/Creatinine Ratio 39, Glucose Level 58*L, Calcium Level 8.6, Corrected Calcium 10.4H, Magnesium Level 1.5L, Total Bilirubin 0.6, Aspartate Amino Transf (AST/SGOT) 8, Alanine Aminotransferase (ALT/SGPT) 20, Alkaline Phosphatase 61, Total Protein 3.8L, Albumin 1.8L 01/05/20 15:18: Glucometer 54*L Microbiology 01/01/20 Blood Culture - Preliminary, Resulted No growth 01/01/20 Urine Culture - Final, Complete Escherichia coli Proteus mirabilis Clinical Quality Measures DVT/VTE Risk/Contraindication: Risk Factor Score Per Nursin RFS Level Per Nursing on Admit: 4+=Very High HUDSON CLARKE MD Jan 05, 2020 15:28
[2020-01-05] MEDS ORDERED: D5 1/2 NS 1000 ML IV SOLUTION 1,000 ML IV ONE (15:31)
[2020-01-05] MEDS: D5 1/2 NS 1000 ML IV SOLUTION 1,000 ML IV SCH (15:35)
--- NOTE | 2020-01-05 15:39 | NUR ---
Spoke with Dr. Prado in patient room. She requested to reduce fluids to 100ml/hr and to administer 1 unit of platelets. Orders placed at this time.
[2020-01-05] MEDS ORDERED: NS IV 500 ML 500 ML ONE (17:11)
[2020-01-05] MEDS ORDERED: NS IV 500 ML 500 ML IV ONE (17:30)
--- NOTE | 2020-01-05 18:05 | NUR ---
Patient too lethargic to eat even a bite of ice cream with great encouragement. Non administered 1800 PO medications at this time.
[2020-01-05] MEDS: LORazepam 0.5 MG (ATIVAN) TABLET PO SCH (21:49)
[2020-01-06] VITALS: BP 149/73
[2020-01-06] MEDS: CEFEPIME 1,000 MG/SWFI 10 ML IV PUSH IV SCH ×4 (01:03→06:33)
[2020-01-06] MEDS: RT-ALBUTEROL/IPRATROPIUM 3 ML (DUONEB) VIAL INH SCH ×2 (03:33→09:45)
[2020-01-06 03:48] VITALS: BP 92/62
[2020-01-06 04:53] LABS: BASOPHILS % (AUTO) 1 % (0-10); EOSINOPHILS # (AUTO) 0.1 10^3/uL (0.0-0.3); EOSINOPHILS % (AUTO) 3 % (0-10); HEMATOCRIT 25 % (35-52); LYMPHOCYTES # (AUTO) 0.1 10^3/uL (1.0-4.0); LYMPHOCYTES % (AUTO) 2 % (12-44); MEAN CORPUSCULAR HEMOGLOBIN 30 pg (25-34); MEAN CORPUSCULAR HGB CONC 33 g/dL (32-36); MEAN CORPUSCULAR VOLUME 93 fL (80-99); MEAN PLATELET VOLUME 10.9 fL (9.0-12.2); MONOCYTES # (AUTO) 0.3 10^3/uL (0.0-1.0); MONOCYTES % (AUTO) 10 % (0-12); NEUTROPHILS # (AUTO) 2.8 10^3/uL (1.8-7.8); NEUTROPHILS % (AUTO) 83 % (42-75); WHITE BLOOD COUNT 3.4 10^3/uL (4.3-11.0)
[2020-01-06 05:01] LABS: PLATELET COUNT 24 10^3/uL (130-400); POTASSIUM 3.3 MMOL/L (3.6-5.0)
[2020-01-06 05:02] LABS: CALCIUM 8.3 MG/DL (8.5-10.1)
[2020-01-06 05:06] LABS: CREATININE SERUM 1.02 MG/DL (0.60-1.30)
[2020-01-06] MEDS: D5 1/2 NS 1000 ML IV SOLUTION 1,000 ML IV SCH ×2 (05:15→11:30)
[2020-01-06] MEDS: MULTIVIT W/MINERALS TAB (THERAGRAN M) PO SCH (05:36)
[2020-01-06] MEDS: KCL 20 MEQ TAB (K-DUR) PO SCH (05:36)
[2020-01-06] MEDS: morphine INJ 4 MG/ML 1 ML (VIAL/SYRINGE) IVP PRN (07:44)
--- NOTE | 2020-01-06 07:56 | NUR ---
Notified Dr. Prado of patients critical platelet level of 24 as well WBC and patient status. Informed her that patient did not do well swallowing last PM per report and that she needs to be NPO in my opinion. Dr. Prado stated she would consult with Dr. Choudhary and report back on moving forward with pt. care.
--- NOTE | 2020-01-06 07:58 | NUR ---
Messaged Dr. Lunsford and informed of patients swallowing status at this time. Suggested the patients swallowing either be reevaluated or for her to be NPO. Morning PO medications non administered at this time.
[2020-01-06] MEDS: morphine ER 15 MG (MS CONTIN) TAB PO SCH (07:59)
[2020-01-06 08:00] VITALS: BP 131/67
[2020-01-06] MEDS: CALCIUM ACETATE 667 MG CAP (PHOSLO) PO SCH (08:00)
[2020-01-06] MEDS: meTOprolol TARTRATE 25 MG (LOPRESSOR) TABLET PO SCH (08:00)
[2020-01-06] MEDS: FOLIC ACID 1 MG TAB PO SCH (08:00)
[2020-01-06] MEDS: MIDODRINE 10 MG (PROAMATINE) TAB PO SCH ×2 (08:00→13:19)
[2020-01-06] MEDS: SENNA W/DOCUSATE (SENOKOT S) TABLET PO SCH (08:00)
[2020-01-06] MEDS: TBO-FILGRASTIM 480 MCG/0.8 ML (GRANIX) SQ SCH (09:35)
[2020-01-06] MEDS: ACYCLOVIR 400 MG TABLET (ZOVIRAX) PO SCH (10:07)
[2020-01-06] MEDS: CYANOCOBALAMIN 1,000 MCG (VITAMIN B-12) TABLET PO SCH (10:07)
[2020-01-06 12:00] VITALS: BP 135/85
--- NOTE | 2020-01-06 13:20 | NUR ---
Spoke with Dr. Lunsford at this time and informed her that the patient did not have a DPOA but that I spoke with her sister Ana that stated she agreed the patient needed to be placed on comfort care at this time. Dr. Lunsford stated to go ahead and order comfort care protocol and that she would contact the patients sister at this time to inform her of next steps with patients care. Orders placed at this time.
[2020-01-06] MEDS ORDERED: ARTIFICAL TEARS 0.4 ML UNIT DOSE (REFRESH PLUS) OU PRN (14:00)
[2020-01-06] MEDS ORDERED: SALIVA STIMULANT MOUTH SPRAY (BIOTENE) 1.5 OZ MM PRN (14:00)
[2020-01-06] MEDS ORDERED: BISACODYL 10 MG SUPP (DULCOLAX) PR PRN (14:00)
[2020-01-06] MEDS ORDERED: ACETAMINOPHEN 650 MG SUPP (TYLENOL) PR PRN (14:00)
[2020-01-06] MEDS ORDERED: RT-ALBUTEROL/IPRATROPIUM 3 ML (DUONEB) VIAL INH PRN (14:00)
[2020-01-06] MEDS ORDERED: PROMETHAZINE INJ 25 MG/ML (PHENERGAN) AMP IVP PRN (14:00)
[2020-01-06] MEDS ORDERED: GLYCOPYRROLATE 0.2 MG/ML (ROBINUL) 2 ML VIAL IV PRN (14:00)
[2020-01-06] MEDS ORDERED: ONDANSETRON 4 MG/2 ML (SDV) Z0FRAN IVP PRN (14:00)
--- NOTE | 2020-01-06 14:08 | Physician Query Clarification ---
"Physician Query-General Query to Physician: The medical record reflects the following clinical scenario: History/Risk factors: Neutropenia, UTI, Malnutrition Clinical Findings: Admission VS: HR 132, RR 32, Temp 37.5, WBC 0.2 with Positive BC drawn from port Treatment: IV fluids, IV ABX, Monitoring Question: Do you agree with the impression of Sepsis present on admission per Dr. Arceo and Dr. Almonte? If you agree, please document in Progress Notes or Discharge Summary. 1. Yes; will document Sepsis present on admission in the Progress Notes 2. No; will continue to document UTI the Progress Notes 3. Other; will document explanation of clinical findings 4. Clinically undetermined; no explanation for clinical findings Please remember a lack of response to the above will prompt a phone page by CDI/coding staff. In responding to this query, please exercise your independent professional judgment. The purpose of this communication is to more accurately reflect the complexity of your patients condition. The fact that a question is asked does not imply that any particular answer is desired or expected. Thank you for timely response to this clarification. Madeleine Wetzel, MSN, RN RN Specialist-Clinical Doc Improvement CD -Health Info Mgmt Operations [address] [facility] t: [phone] | f: [phone] If you are unable to reach me at my extension, I may be working from home. Please contact me at [phone] PHYSICIAN RESPONSE: Based on the clinical findings in the record, please respond to the query above on this document as an addendum. Physician Response: Physician Response 1 If you have questions please contact: Magician Helper: Ext: Thank you for your time and cooperation. Clinical Chief Gauger/Magician Helper This is a permanent part of the medical record MADELEINE WETZEL Jan 06, 2020 14:08 ISABELLE GOEL MD Jan 07, 2020 19:47"
[2020-01-06] MEDS: morphine INJ 4 MG/ML 1 ML (VIAL/SYRINGE) IV PRN ×3 (15:00→21:23)
--- NOTE | 2020-01-06 15:09 | Progress Note ---
Subjective Subjective/Events-last exam Patient resting comfortably. Unable to communicate but does moan and tries to open her eyes to her name. Review of Systems Unable to obtain due to clinical status Objective Exam Last Set of Vital Signs Vital Signs Date Time Temp Pulse Resp B/P (MAP) Pulse Ox O2 Delivery O2 Flow Rate FiO2 01/06/20 12:47 70 01/06/20 09:45 99 Nasal Cannula 2.00 01/06/20 08:00 36.1 22 131/67 (88) Capillary Refill : Less Than 3 SecondsLess Than 3 Seconds I&O Intake and Output 01/06/20 00:00 Intake Total 2830 ml Output Total 1825 ml Balance 1005 ml Intake Oral 300 ml IV Total 2530 ml Output Urine Total 1825 ml # Bowel Movements 1 General: Other (Unresponsive, moans to name) Lungs: Other (course breath sounds, open mouth breathing) Heart: Regular Rate, No Murmurs Abdomen: Soft Skin: Other (mottling to LE biltaterally) Results/Procedures Lab Laboratory Tests 01/05/20 15:18: Glucometer 54*L 01/06/20 04:30: White Blood Count 3.4L, Red Blood Count 2.63L, Hemoglobin 8.0L, Hematocrit 25L, Mean Corpuscular Volume 93, Mean Corpuscular Hemoglobin 30, Mean Corpuscular Hemoglobin Concent 33, Red Cell Distribution Width 18.4H, Platelet Count 24*L, Mean Platelet Volume 10.9, Immature Granulocyte % (Auto) 1, Neutrophils (%) (Auto) 83H, Lymphocytes (%) (Auto) 2L, Monocytes (%) (Auto) 10, Eosinophils (%) (Auto) 3, Basophils (%) (Auto) 1, Neutrophils # (Auto) 2.8, Lymphocytes # (Auto) 0.1L, Monocytes # (Auto) 0.3, Eosinophils # (Auto) 0.1, Basophils # (Auto) 0.0, Immature Granulocyte # (Auto) 0.0, Sodium Level 142, Potassium Level 3.3L, Chloride Level 114H, Carbon Dioxide Level 22, Anion Gap 6, Blood Urea Nitrogen 36H, Creatinine 1.02, Estimat Glomerular Filtration Rate 54, BUN/Creatinine Ratio 35, Glucose Level 95, Calcium Level 8.3L 01/06/20 12:37: Lab Scanned Report Transfusion Reaction Form Microbiology 01/01/20 Blood Culture - Preliminary, Resulted No growth 01/01/20 Urine Culture - Final, Complete Escherichia coli Proteus mirabilis Assessment/Plan Assessment/Plan (1) Urinary tract infection Status: Acute Assessment & Plan: - IV antibiotics, patient is not improving with IV antibiotics and fluids (2) Pancytopenia Status: Acute Assessment & Plan: - Chemo 2 weeks ago (3) Atrial fibrillation Status: Acute (4) Severe protein-energy malnutrition Status: Chronic (5) Large B-cell lymphoma Status: Chronic Assessment & Plan: -1330: Spoke with the patient's sister on the phone and updated her on the patient's declining position. Patient is a DNR and sister would like to transition patient to comfort care given her rapid decline over the weekend. Patient now comfort care and orders have been updated. Will notify Criminal Analyst and patient's sister would like to use the IPAD as she is unable to come to the hospital due to her own medical concerns. Clinical Quality Measures DVT/VTE Risk/Contraindication: Risk Factor Score Per Nursin RFS Level Per Nursing on Admit: 4+=Very High ISABELLE GOEL MD Jan 06, 2020 15:09
--- NOTE | 2020-01-06 15:34 | NUR ---
Beauty Culturist Apprentice responded to Comfort Care referral. Pt was away but had impaired verbal communication. RN assisted to Facetime with pt's sister, Ana. Ana stated that pt is Confucianist and would appreciate hearing the Psalm and prayer. Beauty Culturist Apprentice recited the Psalm with prayer. Pt has no children but one other brother.
--- NOTE | 2020-01-06 16:05 | NUR ---
Assisted the patient with Facetiming her sister at this time. Patient did not respond to sister other than grunts and groans. Palliative care present in room. Prayers performed at this time per families request.
[2020-01-06] MEDS: LORazepam INJ 2 MG/ML (ATIVAN) VIAL IVP PRN (21:53)
[2020-01-07] MEDS: morphine INJ 4 MG/ML 1 ML (VIAL/SYRINGE) IV PRN ×2 (05:07→11:02)
[2020-01-07] MEDS: LORazepam INJ 2 MG/ML (ATIVAN) VIAL IVP PRN (11:01)
--- NOTE | 2020-01-07 12:40 | NUR ---
Discussed with sister plan to discharge patient back to [facility] with hospice services.Pt's sister, Ana Morris,is agreeable with plan for continued comfort care at the custodial and chose [facility] as her choice for hospice services. Sister was aware that Medicaid is pending but unaware of who initiated application She is aware that room and board charges at the custodial will continue to be pt or Medicaid responsibility.
--- NOTE | 2020-01-07 13:35 | NUR ---
In addition to SS ARICrusich's note. Patient will need non emergent ambulance transport back to [facility] if discharged. The needed information was faxed to [facility] and given to the community assistant Wilda.
--- NOTE | 2020-01-07 13:57 | Discharge Summary ---
Diagnosis/Chief Complaint Date of Admission Jan 01, 2020 at 13:05 Date of Discharge 01/07/20 Admission Diagnosis Admission Diagnosis See problem list Discharge Diagnosis See below Problems/Diagnosis: (1) Urinary tract infection Assessment & Plan: - IV antibiotics, patient is not improving with IV antibiotics and fluids 01/06: Spoke with sister and patient was transitioned to comfort care, today patient will be discharged back to [place] [facility] Hospice Status: Acute (2) Pancytopenia Assessment & Plan: - Chemo 2 weeks ago Status: Acute (3) Atrial fibrillation Status: Acute (4) Severe protein-energy malnutrition Status: Chronic (5) Large B-cell lymphoma Assessment & Plan: -1330: Spoke with the patient's sister on the phone and updated her on the patient's declining position. Patient is a DNR and sister would like to transition patient to comfort care given her rapid decline over the weekend. Patient now comfort care and orders have been updated. Will notify [employer] [facility] and patient's sister would like to use the IPAD as she is unable to come to the hospital due to her own medical concerns. Status: Chronic Discharge Summary-Simple/Stand Consultations Discharge Physical Examination Allergies: Coded Allergies: No Known Drug Allergies (Unverified , 12/11/13) Vitals & I&Os Vital Sign - Last 12Hours Date Time Temp Pulse Resp B/P (MAP) Pulse Ox O2 Delivery O2 Flow Rate FiO2 01/07/20 08:00 Room Air 01/06/20 12:47 70 01/06/20 12:00 35.5 16 135/85 (102) 96 2.00 Intake and Output 01/07/20 00:00 Intake Total 0 ml Output Total 695 ml Balance -695 ml Psych/Mental Status: Other (Unresponsive, open mouth breathing) Hospital Course See final discharge diagnosis. Discussion & Recommendations 69 yo F with Large B-Cell lymphoma that presented with UTI. Patient continued to decline during admission and was transitioned to comfort care prior to discharge. Discharge Condition at discharge comfort care Instructions to patient/family Please see electronic discharge instructions given to patient. Discharge Medications Reviewed and agree with Discharge Medication list on patient's Discharge Instruction sheet Clinical Quality Measures DVT/VTE Risk/Contraindication: Risk Factor Score Per Nursin RFS Level Per Nursing on Admit: 4+=Very High ISABELLE GOEL MD Jan 07, 2020 13:57
--- NOTE | 2020-01-07 14:02 | Discharge Summary ---
Discharge [facility] Reconcile Patient Problems Problems Reviewed?: Yes Discharge Medications New, Converted or Re-Newed RX: Other (Comfort meds to be written by director of field sales) Activity & Diet Discharge Diet: Other Diet (NPO) ISABELLE GOEL MD Jan 07, 2020 14:02
--- NOTE | 2020-01-07 15:14 | NUR ---
Faxed discharge instructions and orders to [facility] and have advised them ambulance transport has been requested. Hospice team will admit pt upon her arrival back to [facility] and will notify sister of her discharge.
--- NOTE | 2020-01-07 15:26 | NUR ---
Contacted and gave report to [facility] at this time. Discharge instructions printed and ready for EMS to take with the patient.
[2020-01-07 15:29] VITALS: BP 135/85
--- NOTE | 2020-01-08 08:26 | Physician Query Clarification ---
PQ-Link Infection to Dev/Proc Admission/Discharge Admission Date: Jan 01, 2020 at 13:05 Discharge Date: Jan 07, 2020 at 16:00 Dr. Lunsford, The medical record reflects the following clinical scenario: History/Risk Factors: Sepsis, UTI, ESRD, B-cell Lymphoma Clinical Findings: 12/31 port blood culture - Ecoli and pseudomonas aeruginosa Treatment: IV Cefepime Question: Can you specify if the sepsis is due to/associated with the port? Please document a response in Progress Note or Discharge Summary. 1. Yes - sepsis is due to/associated with the port. 2. No - sepsis is not due to/associated with the port. 3. Other, with explanation of the clinical findings. 4. Clinically undetermined, no explanation for the clinical findings. PHYSICIAN RESPONSE Specify if infection: Clinically undetermined Please remember a lack of response to the above will prompt a phone page by CDI/Coding staff. In responding to this query, please exercise your independent professional judgment. The purpose of this communication is to more accurately reflect the complexity of your patients condition. The fact that a question is asked does not imply that any particular answer is desired or expected. Thank you for your timely response to this clarification. Requestors name: Leeanne THIS PHYSICIAN QUERY FORM IS A PERMANENT PART OF THE MEDICAL RECORD LEEANNE SIDHU Jan 08, 2020 08:26 ISABELLE LUNSFORD MD Jan 08, 2020 14:50
== END 2020-01-07 16:00 | disposition hospice, inpatient (51) | DRG 871 ==
LOC: EDUNIT# 10:25 → ER 10:26 → 4TH 13:05
PROVIDERS: ADMIT Internal Medicine; ATTEND Family Medicine
DX: A41.51 Sepsis due to Escherichia coli [E. coli] (principal); D61.810 Antineoplastic chemotherapy induced pancytopenia; N18.6 End stage renal disease; E43 Unspecified severe protein-calorie malnutrition; N39.0 Urinary tract infection, site not specified; C83.38 Diffuse large B-cell lymphoma, lymph nodes of multiple sites; I12.0 Hypertensive chronic kidney disease with stage 5 chronic kidney disease or end stage renal disease; Z66 Do not resuscitate; Z51.5 Encounter for palliative care; E87.0 Hyperosmolality and hypernatremia; R64 Cachexia; I48.0 Paroxysmal atrial fibrillation; J30.2 Other seasonal allergic rhinitis; E86.0 Dehydration; R53.1 Weakness; M54.9 Dorsalgia, unspecified; E83.52 Hypercalcemia; F32.9 Major depressive disorder, single episode, unspecified; M19.91 Primary osteoarthritis, unspecified site; Z92.3 Personal history of irradiation; Z98.1 Arthrodesis status; Z87.891 Personal history of nicotine dependence; D70.9 Neutropenia, unspecified; R50.81 Fever presenting with conditions classified elsewhere; Z68.22 Body mass index [BMI] 22.0-22.9, adult; E87.6 Hypokalemia
CPT/HCPCS: 36415; 51702; 71045; 80048; 80053; 80061; 81000; 82962; 83605; 83735; 83874; 83880; 84145; 84484; 85007; 85025; 85027; 85610; 85730; 86850; 86900; 86901; 86920; 87040; 87077; 87088; 87186; 93005; 93041; 93306; 94640; 94760; 96374; 96375